=== PATIENT | male | born 1965 | race Caucasian/White ===

== ENCOUNTER 2024-02-03 17:36 | Inpatient (IN) | payer BC, SELFPAY ==
[2024-02-03] VITALS (10 sets, daily range): BP systolic 87–170; BP diastolic 53–93; BMI 25.1; BMI 25.6
--- NOTE | 2024-02-03 14:14 | ED.GENMED ---
History of Present Illness
General
Chief Complaint: Change in Mental Status
Source: patient and family
Exam Limitations: clinical condition
Time Seen by Provider: 02/03/24 13:57
Travel History
Have you had any contact with someone who has COVID-19?: No
Do you have any symptoms of coronavirus? Fever > 100 degrees, chills, cough, shortness of breath, sore throat, loss of taste or smell, muscle aches, or headache?: Yes
Symptoms:: fever
History of Present Illness
History of Present Illness:
58-year-old male history of chronic alcohol use chronic cigarette smoking apparently stopped abruptly 5 days ago. This morning they have noticed confusion and hallucinations change in mental status. Patient without specific complaints. Agitated
at home.
Past History
Past History
ED Past Medical History: HTN and Other (Chronic alcohol use); Negative Asthma, Hypercholesterolemia or NIDDM
ED Past Surgical History: None
Social History
Tobacco: Smoker
Alcohol: None (Stopped 9 days ago)
Drug: None
Personal:
Living: with family
Employment: Employed
Family History
Family History: Diabetes and Other
Review of Systems
Review of Systems
All Other Systems: Not applicable
Phy Exam
Physical Exam
Physical Exam:
GENERAL: Alert. Chronically ill-appearing. Mildly agitated. Slightly disheveled. Old for stated age. And oriented in no apparent distress
EYE: Orbits normal.
NECK: Supple, no significant adenopathy.
ENT: Pharynx without erythema. Small wound on the tip of the nose
CARDIAC: Mildly tachycardic and regular no murmur
LUNGS: Hypoxic. Mild tachypnea. Expiratory rhonchi and expiratory wheezing
ABDOMEN: Soft, without focal tenderness or distention. Small periumbilical nontender hernia
NEUROLOGICAL: Alert and oriented x 2, grossly non-focal
SKIN: Warm and dry, no rash or lesion, no discoloration, skin intact.
MUSCULOSKELETAL: No edema,no deformity.Good color
PSYCH: Relatively cooperative but agitated.
Scores
Withdrawal Assessment of Alcohol
Withdrawal Assessment Completed?: Yes
Nausea and Vomiting: No nausea and no vomiting
Tactile Disturbances: None
Tremor: Moderate, with patient's arms extended
Auditory Disturbances: Not present
Paroxysmal Sweats: No sweat visible
Visual Disturbances: Not present
Anxiety: Moderately anxious, or guarded, so anxiety is inferred
Headache, Fullness in Head: Not present
Agitation: Moderately fidgety and restless
Orientation and clouding of sensorium: Disoriented for date by more than 2 calendar days
Total CIWA Score: 15
Alcohol Withdrawal Medication Recommendation: Equal to MSAS Score 8-11. Lorazepam 1-2mg IV NOW & re-assess q1hr
Course
Orders/Labs/Results
Orders:
Orders
02/03/24 14:02
Electrocardiogram (*1) Urgent
Reason for Study: Other
Other Reason for Exam: sepsis
Cardiac Monitoring- Treatment ONCE
EKG- Treatment ONCE
IV Insert/Care/Rem.- Treatment PRN
CR Chest Portable - 1 View Urgent
Comment:
Reason For Exam: sob hypoxia cough
Reason Study Needs to be Portable: Unable to Transport
O2 Therapy [RESP] Urgent
Titrate/Wean O2 to maintain O2 sat greater than (%): 92
Pulse Ox/cont/shift [RESP] Urgent
Quantity: 1
02/03/24 14:11
Alcohol Urgent
Ammonia Urgent
Complete Blood Count/With Diff Urgent
Comprehensive Metabolic Panel Urgent
Lactic Acid Q4H
Comment: CANCEL 2nd LACTIC ACID IF 1st LACTIC ACID IS LESS THAN 2
PTT Urgent
Prothrombin Time Urgent
Blood Culture Q30M
LOVE Source: Blood/Venous
Specimen Description:
02/03/24 14:12
CT Head W/o Iv Contrast Urgent
Comment:
Reason For Exam: Change in mental status
02/03/24 14:14
Urinalysis Reflex To Culture Urgent
Date Specimen was Collected: 02/03/24
Time Specimen was Collected: 14:10
Urine Microscopic Reflex Cult Urgent
Urine Culture Urgent
LOVE Source: U
Specimen Description:
Date Specimen was Collected: 02/03/24
Time Specimen was Collected: 14:10
02/03/24 14:16
Lorazepam [Ativan] 1 mg IV NOW STA
02/03/24 14:45
Blood Culture Q30M
LOVE Source: Blood/Venous
Specimen Description:
02/03/24 14:54
Piperacillin/Tazo 4.5 Gram [Zosyn] 4.5 gram in 100 ml IV NOW
02/03/24 Dinner
Regular
Fluid Restriction: 1200 mL/day (40 oz)
02/03/24 15:21
CT Chest Pe Study Urgent
Comment:
Reason For Exam: hypoxia
02/03/24 16:37
Admit/Transfer Patient As Directed
Co-Sign Provider:
Level of Care: Inpatient admission
Assign to:: IMU- Intermediate Care
Physician / Group: romelia
Diagnosis: alcohol withdrawal
Reason for Hospitalization: alcohol withdrawal
Expected length of stay greater than two midnights?: Yes
ELOS- Estimated Length of Stay in days: 2
I certify the patient meets the requirements for IP care: Yes
02/03/24 16:38
Code Status As Directed
Resuscitation Status: Do not resuscitate
Reached after discussion with pt or family/Healthcare POA: Yes
DNR Bracelet Application ONCE
02/03/24 16:41
Magnesium Urgent
Phosphorus Urgent
0.9% Sodium Chloride [Nss (Preservative Free)] See Protocol IV PRN PRN
Lorazepam [Ativan] 1 mg IV Q1HPRN PRN
Lorazepam [Ativan] 1 mg PO Q2HPRN PRN
Lorazepam [Ativan] 2 mg IV Q1HPRN PRN
MSAS SCORE As Directed
MSAS Score 0-4: Repeat MSAS every 2 hours until 0-4 for three consecutive assessments, then every 4 hours x 48
hours.
MSAS Score 5-7: For MILD withdrawl symptoms. Repeat MSAS and RASS every 2 hours
MSAS Score 8-11: For MODERATE withdrawal symptoms. Repeat MSAS and RASS every 1 hour. Consider ICU or IMU
level of care.
MSAS Score > 11: For SEVERE withdrawal symptoms. Repeat MSAS and RASS every 1 hour. Notify provider, consider
ICU level of care.
MSAS Additional Instructions: If no improvement or no decrease in score from severe to moderate within 12
hours, consult psychiatry
MSAS Notify Provider: Notify provider if patient requires more than 10 mg of Lorazepam in eight hour period.
02/03/24 16:42
Urine Osmolality Random [Osmolality, Random Urine] Urgent
Urine Sodium Urgent
02/03/24 16:44
Respiratory Culture/Gram Stain Urgent
LOVE Source: Sputum
Specimen Description:
02/03/24 16:50
HydrALAZINE [Apresoline] 5 mg IV Q6HPRN PRN
02/03/24 17:07
Acetaminophen [Tylenol] 650 mg PO Q6HPRN PRN
02/03/24 17:12
Acetaminophen [Tylenol/Feverall] 650 mg RECTAL Q6HPRN PRN
02/03/24 18:00
COVID-19 Antigen Urgent
Source: Nasal Swab
Influenza A+B Rapid Molecular Urgent
LOVE Source: Nasal Swab
Specimen Description:
02/03/24 18:18
Lactic Acid Q4H
Comment: CANCEL 2nd LACTIC ACID IF 1st LACTIC ACID IS LESS THAN 2
03/29/24 18:33
0.9% Sodium Chloride 1000 ml [Nss] 1,000 ml IV 80 mls/hr
Nicotine [Nicoderm Transdermal] 14 mg TRANSDERM DAILY
Tramadol HCl [Ultram] 100 mg PO Q8HPRN PRN
02/03/24 18:33
Activity As Directed
Activity Level: As Tolerated
Vital Signs As Directed
Frequency: Per unit guidelines
DX Deep Vein Thrombosis Video Routine
02/03/24 20:00
Heparin 5,000 units SC Q12
Thiamine Injection 200 mg IV Q12
02/03/24 22:00
Piperacillin/Tazo 3.375 Gram [Zosyn] 3.375 gram in 50 ml IV Q6H
02/04/24 06:00
Complete Blood Count/With Diff IN AM
Comprehensive Metabolic Panel IN AM
02/04/24 08:00
FOLic ACID [Folvite] 1 mg PO DAILY
FOLic ACID [Folvite] 1 mg 0.9% Sodium Chloride 50 ml [Nss] 50 ml IV DAILYPRN
Spironolactone [Aldactone] 25 mg PO DAILY
02/06/24 20:00
Thiamine HCl [Vitamin B1] 100 mg PO BID
Abnormal Lab Results
02/03/24 02/03/24
14:11 14:14
WBC 11.4 H 10^3/uL
(4.8-10.8)
RBC 3.95 L 10^6/uL
(4.70-6.10)
Hct 36.7 L %
(39.0-52.0)
MCH 32.9 H pg
(27.0-31.0)
Plt Count 83 L 10^3/uL
(130-400)
MPV 12.0 H fL
(7.4-10.4)
Abs Immat Gran (auto) 0.1 H 10^3/uL
(0-0.05)
Absolute Neuts (auto) 10.0 H 10^3/uL
(1.4-6.5)
Absolute Lymphs (auto) 0.7 L 10^3/uL
(1.2-3.4)
Immature Gran % 1.1 H %
(0-0.5)
Neutrophils % 87.6 H %
(42.2-75.2)
Lymphocytes % 6.1 L %
(20.5-51.1)
PT 20.2 H Sec
(11.4-14.6)
Sodium 124 L mmol/L
(135-145)
Chloride 85 L mmol/L
(98-107)
Carbon Dioxide 32 H mmol/L
(22-30)
Creatinine 0.6 L mg/dL
(0.7-1.3)
Glucose 121 H mg/dl
(70-99)
Lactic Acid 2.4 H mmol/L
(0.7-2.0)
Calcium 7.8 L mg/dl
(8.4-10.2)
Total Bilirubin 7.3 H mg/dl
(0.2-1.3)
AST 169 H U/L
(17-59)
ALT 77 H U/L
(0-50)
Total Protein 6.0 L g/dl
(6.3-8.2)
Albumin 3.2 L g/dl
(3.5-5.0)
Urine Ketones Trace A
(Negative)
Ur Occult Blood Reflex 2+ A
(Negative)
Urine Bilirubin 2+ A
(Negative)
Urine Urobilinogen 4+ A
(Neg - 1+)
Leukocyte Esterase Rfl 1+ A
(Negative)
Urine RBC 3-6 A /HPF
(0-2)
Urine WBC (Reflex) 11-15 A /HPF
(0-5)
Urine Bacteria (Reflex) Few A
(Negative)
02/03/24 14:11
02/03/24 14:11
Vital Signs
Initial and Last Documented VS:
Initial Vital Signs
Temp Pulse Resp BP Pulse Ox
99.4 F 111 26 170/84 87
02/03/24 13:56 02/03/24 13:56 02/03/24 13:56 02/03/24 13:56 02/03/24 13:56
Last Documented Vital Signs
Temp Pulse Resp BP Pulse Ox
102.3 F H 101 18 117/58 99
02/03/24 18:43 02/03/24 18:45 02/03/24 18:45 02/03/24 18:41 02/03/24 18:45
MDM/Problems Addressed
Differential Diagnosis Includes:
Complicated differential including hepatic encephalopathy, sepsis, alcohol withdrawal, infectious issue. Workup in progress. Family updated. Clearly needs admission
*Radiology
Radiology exam reviewed: preliminary read by ED provider (Negative chest x-ray), radiology read reviewed (Negative) and other (Head CT negative. Collapse right middle and lower lobe atelectasis)
*Pulse Oximetry
Patient hypoxic: yes
*EKG
Interpreted by ED Provider?: Yes
Interpretation: abnormal
Comparison EKG: changes noted
Heart Rate: 106
Rate: tachycardiac
Rhythm: sinus
[place]: normal axis
Interval: normal interval
QRS Pattern: normal QRS
Ischemia: non-specific ST changes
*Branch Rental Manager Interpretation
Rate: tachycardiac
Interpretation: abnormal
Heart Rate: 108
Rhythm: sinus
*Critical Care Note
Total Time (30-74mins, 75-104mins- exclusive of procedures): 45
Data Reviewed
Review of Other/Old Records Reveals: Labs, Records and Testing
Update Note
Update Note:
Multiple issues to address. Hyponatremia, alcohol withdrawal, hypoxia, progressive cirrhosis, UTI, possible sepsis.
Multiple rechecks of this patient. Remained moderately stable considering his multiple medical issues. Multiple updates with family risk of decompensation explained. Hospitalist rediscussed after CT scan with severe atelectasis right middle lobe
and lower lobe
ED Attending Note
-
Portions of this chart may have been created with voice recognition software.� Occasional wrong word or��sound alike� substitutions may have occurred due to the inherent limitations of voice recognition software.
Discharge Plan
Departure
Patient Disposition: Admit
Date of Disposition: 02/03/24
Time of Disposition: 15:14
Presentation/result/management discussed w/ accepting MD/DO: Hospitalist
Discharge Problem:
Change in mental status, Hyponatremia, Alcohol withdrawal, Alcohol withdrawal hypoxia, Progressive cirrhosis, UTI
Interventions
Interventions:
*Risk Screen - Suicide Last Done: 02/03/24 13:59
*General Assessment Last Done: 02/03/24 13:57
*Neglect/Abuse Screening Last Done: 02/03/24 13:59
ED- Fall Risk Assessment Last Done: 02/03/24 14:00
*ED COVID-19 Vaccine History Last Done: 02/03/24 13:57
*Nursing Disposition Last Done: 02/03/24 18:52
ED- Pulmonary Assessment Last Done: 02/03/24 18:52
ED-Psychological Assessment Last Done: 02/03/24 18:52
ED- Neurological Assessment Last Done: 02/03/24 14:00
ED- Cardiac Assessment Last Done: 02/03/24 18:52
Discharge Date and Time
Discharge Date/Time: 02/03/24 18:54
[2024-02-03] MEDS: ATIVAN 1 MG IV ×2 (14:21→17:03)
[2024-02-03 14:22] LABS: % Basophils 0.3 % (0-2); % Eosinophils 0.2 % (0-6); % Immature Granulocytes 1.1 % (0-0.5); % Lymphocytes 6.1 % (20.5-51.1); % Monocytes 4.7 % (1.7-9.3); % Neutrophils 87.6 % (42.2-75.2); Absolute Immature Granulocytes 0.1 10^3/uL (0-0.05); Absolute Lymphocytes 0.7 10^3/uL (1.2-3.4); Absolute Monocytes 0.5 10^3/uL (0.1-0.6); Hematocrit 36.7 % (39.0-52.0); Mean Corp Hgb Conc. 35.4 g/dL (33.0-37.0); Mean Corpuscular Hgb 32.9 pg (27.0-31.0); Mean Corpuscular Volume 92.9 fL (80.0-94.0); Nucleated Red Blood Cells % 0 % (-); Platelet Count 83 10^3/uL (130-400); Red Blood Cell Count 3.95 10^6/uL (4.70-6.10); Red Cell Dist. Width 14.4 % (11.5-14.5); White Blood Cell Count 11.4 10^3/uL (4.8-10.8)
[2024-02-03 14:27] LABS: Urine Albumin Trace (Neg - Trace); Urine Bilirubin 2+ (Negative); Urine Character Clear (Clear); Urine Glucose Negative (Negative); Urine Ketone Trace (Negative); Urine Leukocyte 1+ (Negative); Urine Nitrite Negative (Negative); Urine Occult Blood 2+ (Negative); Urine Specific Gravity 1.015 (<1.030); Urine Urobilinogen 4+ (Neg - 1+)
[2024-02-03 14:28] LABS: Urine Color Orange
[2024-02-03 14:35] LABS: APTT 34.2 Sec (23.4-35.0); INR 1.74; PT 20.2 Sec (11.4-14.6)
[2024-02-03 14:36] LABS: ALT (SGPT) 77 U/L (0-50); AST (SGOT) 169 U/L (17-59); Albumin 3.2 g/dl (3.5-5.0); Alkaline Phosphatase 109 U/L (38-126); Blood Urea Nitrogen 15 mg/dl (9-20); Calcium 7.8 mg/dl (8.4-10.2); Carbon Dioxide 32 mmol/L (22-30); Chloride 85 mmol/L (98-107); Estimated Creatinine Clearance > 125 ml/min; Glucose 121 mg/dl (70-99); Potassium 3.5 mmol/L (3.5-5.1); Sodium 124 mmol/L (135-145); Total Bilirubin 7.3 mg/dl (0.2-1.3); eGFR > 60.00
[2024-02-03 14:37] LABS: Urine Bacteria Few (Negative); Urine Squamous Cell 0-2 /LPF (Few)
[2024-02-03 15:01] LABS: Alcohol None Detected
[2024-02-03] MEDS: ZOSYN 100 IV (15:03)
[2024-02-03 15:08] LABS: Ammonia 16 umol/L (9-30)
[2024-02-03 15:29] LABS: Lactic Acid 2.4 mmol/L (0.7-2.0)
--- NOTE | 2024-02-03 16:02 | HPS.HSE ---
Family Physician
-
Family Physician: Drake Goss
Chief Complaint
-
altered mental status
History of Present Illness
58-year-old male past medical history of chronic right upper extremity pain, alcoholic cirrhosis, alcohol use disorder, active smoker, presenting with confusion that started yesterday evening got significantly worse today. He had visual
hallucinations and was tremulous. He drinks a bottle of hard liquor every day his last alcoholic drink was 5 days ago and he stopped completely at that time. He also smokes a pack of cigarettes a day and stop completely at that time. He did have
chills. No nausea or vomiting or abdominal pain. He did have some loose stools which is resolved. He has been drinking a lot of fluids and Gatorade over the past several days. He did have increased urinary frequency.
Over the past 2 to 3 days he had shortness of breath with productive cough and some sore throat. No chest pain. He has been feeling off balance but denied any dizziness. He did complain of headache and some blurry vision. No numbness or tingling.
Medical History
Past Medical History
Past Medical History: Reports Other ( chronic right upper extremity pain, alcoholic cirrhosis, alcohol use disorder, active smoker,)
Past Surgical History: Reports None
Social History
Tobacco: Smoker
Alcohol: Daily
Drug: None
Family History
Family History: Not pertinent
Allergies / Home Medications
Allergies reflects when Allergies were last updated in [facility].
Home Medications with original date entered in [facility]
Allergy/Medication List:
Allergies
Allergy/AdvReac Type Severity Reaction Status Date / Time
No Known Allergies Allergy Verified 10/11/22 09:33
Home Medications
alprazolam 1 mg tablet 1 mg PO .SEE BELOW 02/03/24
aspirin 81 mg tablet,delayed release 162 mg PO BIDPRN PRN mild pain 02/03/24
spironolactone 25 mg tablet 25 mg PO DAILY 02/03/24
tramadol 50 mg tablet 100 mg PO Q8HPRN PRN severe pain 02/03/24
Review of Systems
-
History Source: Patient
A 12 point ROS was completed and negative except as noted: Yes
Constitutional: Reports No Symptoms
EENT: Reports No Symptoms
Respiratory: Reports No Symptoms
Cardiac: Reports No Symptoms
Abdomen/GI: Reports See HPI
: Reports No Symptoms
Musculoskeletal: Reports No Symptoms
Skin: Reports No Symptoms
Neurological: Reports No Symptoms
Endocrine: Reports No Symptoms
Hematologic/Lymphatic: Reports No Symptoms
Psych: Reports No Symptoms
Physical Exam
Vital Signs
Vital Signs
Temp Pulse Resp BP Pulse Ox
99.4 F 110 18 170/84 96
02/03/24 13:56 02/03/24 14:02 02/03/24 14:02 02/03/24 13:56 02/03/24 14:26
Physical Exam
General: Well Developed, Well Nourished and No Apparent Distress
HEENT: NormoCephalic, Moist mucous membranes and Atraumatic
Respiratory: Clear
Cardiac: S1/S2 and Regular Rhythm; No Murmur or Rub
GI: Soft, Non Tender, Non Distended and Normal Bowel Sounds; No Organomegaly
Rectal: Deferred by Provider
Musculoskeletal: No Clubbing, No Cyanosis and No Edema
Skin: No Rash
Neuro: Nonfocal/grossly intact and Tremors
Laboratory Results
-
02/03/24 14:11
02/03/24 14:11
Laboratory Results
PT 20.2 Sec (11.4-14.6) H 02/03/24 14:11
INR 1.74 02/03/24 14:11
APTT 34.2 Sec (23.4-35.0) 02/03/24 14:11
Lactic Acid 2.4 mmol/L (0.7-2.0) H 02/03/24 14:11
Total Bilirubin 7.3 mg/dl (0.2-1.3) H 02/03/24 14:11
AST 169 U/L (17-59) H 02/03/24 14:11
ALT 77 U/L (0-50) H 02/03/24 14:11
Alkaline Phosphatase 109 U/L (38-126) 02/03/24 14:11
Data Reviewed
-
Lab Data: Labs Reviewed by me
Old Records: Reviewed
Impression/Plan
-
IMPRESSION:
PLAN:
# Alcohol withdrawal
# Alcohol use disorder
-Alcohol level negative
-Alcohol withdrawal protocol
-Thiamine and folate
-IV fluids
# Hypoxic respiratory failure unclear etiology likely aspiration pneumonia
-Chest x-ray unremarkable
-COVID and influenza pending
-Check sputum culture
-CT PE pending to evaluate for pulmonary embolism/aspiration pneumonia
-Lactic acid 2.4
-Empiric Zosyn
# Hyponatremia likely secondary to beer potomania/poor solute intake
-Check urine sodium, osmolality
-Fluid restriction 40 ounces
-monitor with IV fluids
-CT head pending
# Hypertensive urgency
-EKG shows sinus tachycardia, nonspecific intraventricular conduction delay
-As needed hydralazine
# Urinary tract infection
-Zosyn
# Transaminitis secondary to alcohol use
-Continue to monitor
History of alcoholic cirrhosis
-Continue spironolactone
Active smoker
-Nicotine patch
Essential hypertension
-Continue spironolactone
Chronic right upper extremity pain
-Continue tramadol
DNR/DNI
DVT prophylaxis�heparin
Regular diet
[2024-02-03] MEDS: TYLENOL/FEVERALL 650 MG RECTAL (17:42)
[2024-02-03 18:41] LABS: Lactic Acid 1.2 mmol/L (0.7-2.0)
[2024-02-03] MEDS: NSS 1000 IV (18:48)
[2024-02-03 18:49] LABS: COVID-19 Antigen Negative (Negative)
--- NOTE | 2024-02-03 19:00 | PTCARENOTE ---
pt arrived to floor from ED at 1840. sinus rythym on monitor. pt drowsy but awakens briefly. high flow o2 at 60L/100% with sat 99%. pt febrile but had recently been given rectal tylenol by eD nurse. bed alarm placed for pt safety. will report to
oncoming RN
[2024-02-03 20:03] LABS: Magnesium 1.8 mg/dl (1.6-2.3); Phosphorus 2.3 mg/dl (2.5-4.5)
[2024-02-03] MEDS: HEPARIN 5000 UNITS SC (20:25)
[2024-02-03] MEDS: NICODERM TRANSDERMAL 14 MG TRANSDERM (20:25)
[2024-02-03] MEDS: THIAMINE INJECTION 200 MG IV (20:25)
[2024-02-03] MEDS: NSS 500 IV (21:19)
[2024-02-03] MEDS: TORADOL 15 MG IV (21:29)
[2024-02-03] MEDS: ZOSYN 50 IV (21:50)
[2024-02-03 22:37] LABS: Osmolality Urine 565 mOsm/kg (300-900)
[2024-02-03 23:06] LABS: Urine Sodium < 5 mmol/L (30-90)
--- NOTE | 2024-02-03 23:52 | PTCARENOTE ---
Pt with fever 102.8 and SBP 83. House EXECUTIVE MARKETING ASSISTANT notified. NSS bolus given along with IV toradol. BP improved and temp down.
[2024-02-04] VITALS (22 sets, daily range): BP systolic 96–139; BP diastolic 46–94; BMI 25.3
[2024-02-04] MEDS: ZOSYN 50 IV ×4 (04:37→21:28)
[2024-02-04 05:35] LABS: % Basophils 0.1 % (0-2); % Eosinophils 0.5 % (0-6); % Immature Granulocytes 1.1 % (0-0.5); % Lymphocytes 11.6 % (20.5-51.1); % Monocytes 6.7 % (1.7-9.3); Absolute Immature Granulocytes 0.1 10^3/uL (0-0.05); Absolute Lymphocytes 0.9 10^3/uL (1.2-3.4); Absolute Monocytes 0.5 10^3/uL (0.1-0.6); Hematocrit 31.4 % (39.0-52.0); Hemoglobin 11.2 g/dL (13.0-18.0); Mean Corp Hgb Conc. 35.7 g/dL (33.0-37.0); Mean Corpuscular Hgb 33.9 pg (27.0-31.0); Mean Corpuscular Volume 95.2 fL (80.0-94.0); Mean Platelet Volume 10.8 fL (7.4-10.4); Nucleated Red Blood Cells % 0 % (-); Platelet Count 67 10^3/uL (130-400); Red Cell Dist. Width 14.4 % (11.5-14.5); White Blood Cell Count 7.6 10^3/uL (4.8-10.8)
--- NOTE | 2024-02-04 06:04 | PTCARENOTE ---
Pt awake alert and oriented and conversant this am. BP much improved. Will continue to monitor.
--- NOTE | 2024-02-04 06:06 | PTCARENOTE ---
Pt weaned down to midflow. Currently at 15 L O2.
[2024-02-04 06:09] LABS: ALT (SGPT) 57 U/L (0-50); AST (SGOT) 103 U/L (17-59); Albumin 2.3 g/dl (3.5-5.0); Alkaline Phosphatase 71 U/L (38-126); Blood Urea Nitrogen 18 mg/dl (9-20); Carbon Dioxide 31 mmol/L (22-30); Chloride 93 mmol/L (98-107); Estimated Creatinine Clearance 116 ml/min; Glucose 119 mg/dl (70-99); Potassium 3.3 mmol/L (3.5-5.1); Sodium 126 mmol/L (135-145); Total Bilirubin 5.5 mg/dl (0.2-1.3); Total Protein 4.7 g/dl (6.3-8.2); eGFR > 60.00
--- NOTE | 2024-02-04 07:00 | PTCARENOTE ---
received report from previous RN. pt arouses easily to voice. Orientedx3 at this time. MSAS 2- mild tremors noted. pt denies pain. pt on 12L midflow nasal cannula, sat 92-96%. lung sounds diminished in bases. SR on telemetry heart rate in 80s.
pulses palpable. no edema. active bowel sounds. voiding in urinal priyank urine. pt and updated on plan of care for the day. see worklist for full nursing assessment and interventions.
[2024-02-04] MEDS: KCL 270 MEQ IV (07:41)
[2024-02-04] MEDS: THIAMINE INJECTION 200 MG IV ×2 (07:42→19:53)
[2024-02-04] MEDS: HEPARIN 5000 UNITS SC ×2 (07:42→19:53)
[2024-02-04] MEDS: NICODERM TRANSDERMAL 14 MG TRANSDERM (07:43)
[2024-02-04] MEDS: FOLVITE 1 MG PO (07:44)
[2024-02-04] MEDS: ALDACTONE 25 MG PO (07:44)
[2024-02-04] MEDS: NSS 1000 IV (07:57)
--- NOTE | 2024-02-04 08:00 | W.PN.HOSP.TC ---
Today's Communication/Plan
-
keep IMU today and wean O2
cont MSAS protocol
cont zosyn
follow electrolytes
Assessment / Plan
Assessment / Plan
pt is a 58 year old male
Alcohol withdrawal with Alcohol use disorder--received ativan yesterday in ED--cont MSAS protocol, thiamine, folate--stop IVF
Hypoxic respiratory failure with lactic acidosis-- unclear etiology likely aspiration pneumonia--lung exam with rhonchi right base--cont zosyn--CXR neg, Ct scan with atelectasis--blood culture positive for gm positive cocci in pairs and chains--wean
midflow O2--add IS and acapella--Covid and flu negative--follow sputum culture if able to get--lactic acid 2.4 to 1.2--stop IVF
Hyponatremia/hypokalemia-- likely secondary to beer/poor solute intake--replete and follow--cont spironolactone--fluid restrict--head CT without acute findings
Essential HTN with Hypertensive urgency--EKG shows sinus tachycardia, nonspecific intraventricular conduction delay--As needed hydralazine
Possible Urinary tract infection, more likely pna--cont zosyn, urine culture pending
Transaminitis secondary to alcohol use--improving
History of alcoholic cirrhosis--Continue spironolactone
Active smoker--Nicotine patch
Essential hypertension--Continue spironolactone
Chronic right upper extremity pain--Continue tramadol
code status--DNR/DNI
DVT prophylaxis�heparin
Anticipated Discharge: > 48 hours
Subjective/Interval History
-
Date of Service: February 04, 2024
pt says he is still shaky
Objective Data
-
Labs:
Laboratory Results
02/04/24
04:55
WBC 7.6
Hgb 11.2 L
Hct 31.4 L
Plt Count 67 L
Sodium 126 L
Potassium 3.3 L
Chloride 93 L
Carbon Dioxide 31 H
BUN 18
Creatinine 0.7
Glucose 119 H
Calcium 7.0 L
Total Bilirubin 5.5 H
AST 103 H
ALT 57 H
Alkaline Phosphatase 71
Vital Signs:
max temp for 24 hours
02/03/24
21:04
Temp 102.8 F H
Vital Signs
Temp Pulse Resp BP Pulse Ox
98.1 F 74 18 107/55 97
02/04/24 03:21 02/04/24 07:44 02/04/24 07:00 02/04/24 07:44 02/04/24 07:00
I&O
02/03/24 02/04/24 02/05/24
06:59 06:59 06:59
Intake Total 1500 / 1500
Output Total 1000 / 1000
Balance 500 / 500
Review of Systems
-
All other systems: Reviewed and negative
Neuro: Reports Other ('shaky')
Physical Exam
-
General: Well Developed, Well Nourished and No Apparent Distress
HEENT: Normocephalic, Atraumatic and Anicteric
Respiratory: Rhonchi (right base)
Cardiac: Regular Rhythm and S1/S2; Negative Murmur
GI: Soft, Nontender, Nondistended and Normal Bowel Sounds
Musculoskeletal: No Clubbing, No Cyanosis and No Edema
Neuro: Awake and Alert
Psych: Calm
[2024-02-04] MEDS: ATIVAN 1 MG PO (16:08)
[2024-02-04] MEDS: TYLENOL 650 MG PO (22:02)
[2024-02-05] VITALS (8 sets, daily range): BP systolic 101–123; BP diastolic 49–71; BMI 25.5
[2024-02-05] MEDS: ZOSYN 50 IV ×4 (03:07→22:17)
[2024-02-05 04:45] LABS: Hematocrit 32.2 % (39.0-52.0); Mean Corp Hgb Conc. 34.2 g/dL (33.0-37.0); Mean Corpuscular Hgb 32.7 pg (27.0-31.0); Mean Corpuscular Volume 95.8 fL (80.0-94.0); Platelet Count 65 10^3/uL (130-400); Red Blood Cell Count 3.36 10^6/uL (4.70-6.10); Red Cell Dist. Width 14.1 % (11.5-14.5); White Blood Cell Count 7.6 10^3/uL (4.8-10.8)
[2024-02-05 05:27] LABS: ALT (SGPT) 59 U/L (0-50); AST (SGOT) 97 U/L (17-59); Albumin 2.3 g/dl (3.5-5.0); Alkaline Phosphatase 109 U/L (38-126); Blood Urea Nitrogen 14 mg/dl (9-20); Calcium 7.2 mg/dl (8.4-10.2); Carbon Dioxide 30 mmol/L (22-30); Chloride 99 mmol/L (98-107); Estimated Creatinine Clearance > 125 ml/min; Glucose 110 mg/dl (70-99); Magnesium 1.9 mg/dl (1.6-2.3); Potassium 3.3 mmol/L (3.5-5.1); Sodium 129 mmol/L (135-145); Total Bilirubin 4.6 mg/dl (0.2-1.3); Total Protein 4.7 g/dl (6.3-8.2); eGFR > 60.00
[2024-02-05] MEDS: KCL 40 MEQ PO (06:03)
[2024-02-05] MEDS: ALDACTONE 25 MG PO (07:31)
[2024-02-05] MEDS: FOLVITE 1 MG PO (07:32)
[2024-02-05] MEDS: THIAMINE INJECTION 200 MG IV ×2 (07:32→20:30)
[2024-02-05] MEDS: HEPARIN 5000 UNITS SC ×2 (07:32→20:31)
[2024-02-05] MEDS: NICODERM TRANSDERMAL 14 MG TRANSDERM (08:10)
--- NOTE | 2024-02-05 08:26 | PTCARENOTE ---
pt wakes to name. oriented x3. follows all commands. states no pain. midflow 12l. breath sounds diminished course with ex wheezing. productive cough. spoke to pt on the phone updated on pt condition.
--- NOTE | 2024-02-05 08:51 | W.PN.HOSP.TC ---
Today's Communication/Plan
-
wean O2 to off
transfer to tele
PT/OT
d/c planning
Assessment / Plan
Assessment / Plan
pt is a 58 year old male
Alcohol withdrawal with Alcohol use disorder--received ativan in ED--cont MSAS protocol, thiamine, folate--stop IVF--no further signs of WD
Hypoxic respiratory failure with lactic acidosis-- unclear etiology likely aspiration pneumonia---cont zosyn--CXR neg, Ct scan with atelectasis--blood culture positive for strep species (likely contaminant)--wean midflow O2--add IS and
acapella--Covid and flu negative
Hyponatremia/hypokalemia-- likely secondary to beer/poor solute intake--replete and follow--cont spironolactone--fluid restrict--head CT without acute findings
Essential HTN with Hypertensive urgency--EKG shows sinus tachycardia, nonspecific intraventricular conduction delay--As needed hydralazine
Possible Urinary tract infection, more likely pna--cont zosyn, urine culture pending
Transaminitis secondary to alcohol use--improving
History of alcoholic cirrhosis--Continue spironolactone
Active smoker--Nicotine patch
Essential hypertension--Continue spironolactone
Chronic right upper extremity pain--Continue tramadol
code status--DNR/DNI
DVT prophylaxis�heparin
Anticipated Discharge: > 48 hours
Subjective/Interval History
-
Date of Service: February 05, 2024
pt without c/o
Objective Data
-
Labs:
Laboratory Results
02/05/24
04:07
WBC 7.6
Hgb 11.0 L
Hct 32.2 L
Plt Count 65 L
Sodium 129 L
Potassium 3.3 L
Chloride 99
Carbon Dioxide 30
BUN 14
Creatinine 0.6 L
Glucose 110 H
Calcium 7.2 L
Total Bilirubin 4.6 H
AST 97 H
ALT 59 H
Alkaline Phosphatase 109
Vital Signs:
max temp for 24 hours
02/04/24
19:10
Temp 99.4 F
Vital Signs
Temp Pulse Resp BP Pulse Ox
97.8 F 74 22 117/49 95
02/05/24 07:54 02/05/24 07:31 02/05/24 07:00 02/05/24 07:31 02/05/24 07:00
I&O
02/04/24 02/05/24 02/06/24
06:59 06:59 06:59
Intake Total 1500 / 1500 1240 / 1240
Output Total 1000 / 1000 2000 / 2000 300 / 300
Balance 500 / 500 -760 / -760 -300 / -300
Review of Systems
-
All other systems: Reviewed and negative
Neuro: Denies Tremors
Psych: Denies Anxious
Physical Exam
-
General: Well Developed, Well Nourished and No Apparent Distress
HEENT: Normocephalic, Atraumatic and Oxygen
Respiratory: Clear to Auscultation; Negative Wheezes or Rhonchi
Cardiac: Regular Rhythm and S1/S2; Negative Murmur
GI: Soft, Nontender, Nondistended and Normal Bowel Sounds
Musculoskeletal: No Clubbing, No Cyanosis and No Edema
Neuro: Awake and Alert
Psych: Calm
--- NOTE | 2024-02-05 12:05 | PTCARENOTE ---
report called to 4w. pt transferred with clothes cell phone and voice systems engineer. updated pt on pt condition and new room number
--- NOTE | 2024-02-05 15:27 | CM ---
fast food assistant restaurant manager reviewed patient's chart and met with patient and patient lives with his spouse in a 2 story home, patient is independent with adl's and ambulation, no dme, patient was working but feels he may need to retire soon, patient is currently
on oxygen but did not require oxygen prior to admission, patient admitted with alcohol W/D and field nurse case manager spoke with patient regrading possible information, treatment and supports and referral sent to [facility], per Chad at [facility] he will meet with
patient tomorrow.
Plan; Patient to return to home with spouse when stable, need to follow for any oxygen needs, referral sent to [facility].
[2024-02-05] MEDS: TYLENOL 650 MG PO (18:47)
--- NOTE | 2024-02-05 18:55 | PTCARENOTE ---
Daughters Gale Piedraell [phone]. Valeria Maxwell [phone]. Daughters present with Cherise at bedside. Would like to be involved in discussions regarding aftercare post-discharge.
[2024-02-06] MEDS: ZOSYN 50 IV ×4 (03:55→21:56)
[2024-02-06 04:03] VITALS: BP 114/63
[2024-02-06 07:25] VITALS: BP 127/71
[2024-02-06] MEDS: NICODERM TRANSDERMAL 14 MG TRANSDERM (08:41)
[2024-02-06] MEDS: FOLVITE 1 MG PO (08:41)
[2024-02-06] MEDS: ALDACTONE 25 MG PO (08:41)
[2024-02-06] MEDS: THIAMINE INJECTION 200 MG IV (08:42)
[2024-02-06] MEDS: HEPARIN 5000 UNITS SC ×2 (08:43→21:56)
[2024-02-06 09:12] LABS: Hematocrit 33.2 % (39.0-52.0); Hemoglobin 11.7 g/dL (13.0-18.0); Mean Corp Hgb Conc. 35.2 g/dL (33.0-37.0); Mean Corpuscular Hgb 32.8 pg (27.0-31.0); Platelet Count 61 10^3/uL (130-400); Red Blood Cell Count 3.57 10^6/uL (4.70-6.10); Red Cell Dist. Width 14.2 % (11.5-14.5); White Blood Cell Count 6.2 10^3/uL (4.8-10.8)
[2024-02-06 09:33] LABS: ALT (SGPT) 57 U/L (0-50); AST (SGOT) 87 U/L (17-59); Albumin 2.4 g/dl (3.5-5.0); Alkaline Phosphatase 112 U/L (38-126); Blood Urea Nitrogen 12 mg/dl (9-20); Calcium 7.8 mg/dl (8.4-10.2); Carbon Dioxide 31 mmol/L (22-30); Chloride 98 mmol/L (98-107); Estimated Creatinine Clearance > 125 ml/min; Glucose 105 mg/dl (70-99); Magnesium 1.9 mg/dl (1.6-2.3); Potassium 3.6 mmol/L (3.5-5.1); Sodium 134 mmol/L (135-145); Total Bilirubin 4.7 mg/dl (0.2-1.3); Total Protein 4.9 g/dl (6.3-8.2); eGFR > 60.00
[2024-02-06 11:19] VITALS: BP 127/56
[2024-02-06] MEDS: ULTRAM 100 MG PO (11:19)
--- NOTE | 2024-02-06 11:24 | W.PN.HOSP.TC ---
Today's Communication/Plan
-
.
Assessment / Plan
Assessment / Plan
Physical Exam
-
General: on nasal O2, No Apparent Distress
HEENT: Normocephalic, Atraumatic and Oxygen
Respiratory: limited with rhonchi both sides, limited on right lower side
Cardiac: S1S2
GI: Soft, Nontender, Nondistended and Normal Bowel Sounds
Musculoskeletal: No Clubbing, No Cyanosis and No Edema
Neuro: Awake and Alert
Psych: Calm, no agitation
pt is a 58 year old male
#Alcohol withdrawal with Alcohol use disorder--Mild
received Ativan in ED on 02/02 and one dose on 02/03 ONLY
He is fully oriented and no tremor or agitation noted
--cont MSAS protocol, thiamine, folate--stopped IVF--no further signs of WD
Acute hypoxic respiratory failure with lactic acidosis-- SaO2 at 84 % on RA
Received High flow O2, now on 6 liters.
Likely combination of atelectasias and underlying COPD, aspiration PNA in RLL, chronic smoker.
CT chest showed no PE, complete atelectasis of the right lower lobe and the majority of the right middle lobe. Hepatic cirrhosis.
-cont Zosyn-
WBC is normal now. Afebrile
-blood culture positive for strep species, will reculture blood
Sputum culture + for Gram negative bacilli.
weaned midflow O2--added IS and acapella--Covid and flu negative
Will consult pulmonary
Hyponatremia/ mild
no confusion
#Hypokalemia-
is 3.6, c/w K supplementy
#Essential HTN with Hypertensive urgency--EKG shows sinus tachycardia, nonspecific intraventricular conduction delay--As needed hydralazine
# Not UTI
Culture is negative
# Alcoholic hepatitis, mild
No abd pain
Transaminitis secondary to alcohol use--improving
#History of alcoholic cirrhosis--Continue spironolactone
Will add PPI
#Active smoker--Nicotine patch
#Essential hypertension--Continue spironolactone
#Chronic right upper extremity pain--Continue tramadol
#code status--DNR/DNI
#DVT prophylaxis�heparin
Total time spent to see the patient, examine the patient on the floor, review data and lab results, discuss treatment plan with patient, nursing staff around 55 minutes.
Anticipated Discharge: > 48 hours
Subjective/Interval History
-
Date of Service: February 06, 2024
No chest pain
No sob
No fevers
Objective Data
-
Labs:
Laboratory Results
02/06/24
08:06
WBC 6.2
Hgb 11.7 L
Hct 33.2 L
Plt Count 61 L
Sodium 134 L
Potassium 3.6
Chloride 98
Carbon Dioxide 31 H
BUN 12
Creatinine 0.5 L
Glucose 105 H
Calcium 7.8 L
Total Bilirubin 4.7 H
AST 87 H
ALT 57 H
Alkaline Phosphatase 112
Vital Signs:
Vital Signs
Temp Pulse Resp BP Pulse Ox
97.9 F 87 18 127/56 95
02/06/24 11:19 02/06/24 11:19 02/06/24 11:19 02/06/24 11:19 02/06/24 11:19
I&O
02/05/24 02/06/24 02/07/24
06:59 06:59 06:59
Intake Total 1240 / 1240 700 / 700
Output Total 1999 / 1999 1100 / 1100
Balance -760 / -760 -400 / -400
--- NOTE | 2024-02-06 12:29 | CM ---
CM met with Chda from [facility], per Chad, patient not interested in inpatient rehab, provided with outpatient resources. CM met with patient bedside, patient reports no concerns to CM, inquiring when his discharge will be. CM will continue to follow
for discharge planning needs, will watch for home O2 needs.
Plan; home with outpatient resources, watch for VN needs.
[2024-02-06 15:20] VITALS: BP 125/63
[2024-02-06 19:00] VITALS: BP 112/55
[2024-02-06] MEDS: VITAMIN B1 100 MG PO (21:56)
[2024-02-06 23:00] VITALS: BP 146/70
[2024-02-07] VITALS (8 sets, daily range): BP systolic 103–141; BP diastolic 56–74; PULSE 80; O2SAT 97
[2024-02-07] MEDS: ZOSYN 50 IV ×4 (04:37→21:16)
[2024-02-07] MEDS: PROTONIX 40 MG PO (08:21)
[2024-02-07] MEDS: FOLVITE 1 MG PO (08:21)
[2024-02-07] MEDS: NICODERM TRANSDERMAL 14 MG TRANSDERM (08:21)
[2024-02-07] MEDS: VITAMIN B1 100 MG PO ×2 (08:21→21:16)
[2024-02-07] MEDS: ALDACTONE 25 MG PO (08:21)
[2024-02-07] MEDS: HEPARIN 5000 UNITS SC ×2 (08:22→21:15)
[2024-02-07] MEDS: ULTRAM 100 MG PO (09:19)
--- NOTE | 2024-02-07 09:25 | CON.PUL ---
Consultation
Consultation Request
Date/Time Consultation Requested: 02/07/2024-7 AM
Date/Time Consultation Performed: 02/07/2024-7:30 AM
Requesting Provider: Hospitalist
Performing Provider: Dr. Ford
Reason for Consultation: Shortness of breath
Medical History
-
Chief Complaint: Shortness of breath
History of Present Illness:
58-year-old male smoker with alcohol use disorder with chronic right upper extremity pain presented with visual hallucinations, tremulous, as well as shortness of breath, productive cough and sore throat-pulmonary consulted for shortness of breath,
wheezing and oxygen requirements 02/07/24. He feels short of breath with exertion. He has some chest tightness and wheezing. He has been placed on Trelegy by his stock buyer but does not use it regularly. He states that he uses 'as needed'. He has
dyspnea on exertion but no chest pain, chest tightness, productive cough, mopped assist, and has abdominal distention but no abdominal pain and has mild chronic lower extremity swelling.
Past Medical History
Past Medical History: None (Cigarette smoker. COPD. Alcohol use disorder. Cirrhosis. Chronic right upper extremity pain. Anxiety. Hypertension. Cannabis dependence. Benzodiazepine dependence. Thrombocytopenia. Umbilical and testicular
hernia. Hepatitis C. History of meningitis. Spinal fluid leak repair 2001. Teet)
Social History
Tobacco: Smoker (93-[id number]-[id number]-quit 2 weeks ago)
Alcohol: Daily
Drug: Marijuana
Personal:
Living: With Family
Occupational Exposures: No known asbestos exposure
Environmental Exposures: No known tuberculosis exposure
Family History
Family History: Other (Father-diabetes and CAD. Mother diabetes, CAD.)
Allergies / Home Medications
Allergies
Allergy/AdvReac Type Severity Reaction Status Date / Time
No Known Allergies Allergy Verified 10/11/22 09:33
Home Medications
�Medication �Instructions �Recorded �Confirmed �Last Taken �Type
alprazolam 1 mg tablet 1 mg PO .SEE BELOW 02/03/24 02/03/24 4 Days Ago History
~01/30/24
aspirin 81 mg tablet,delayed 162 mg PO BIDPRN PRN mild pain 02/03/24 02/03/24 02/02/24 History
release
spironolactone 25 mg tablet 25 mg PO DAILY 02/03/24 02/03/24 02/03/24 History
tramadol 50 mg tablet 100 mg PO Q8HPRN PRN severe pain 02/03/24 02/03/24 4 Days Ago History
~01/30/24
Review of Systems
-
Unable to Obtain full review of systems at this time due to: Other (Per HPI)
Vitals / Labs / Diagnostic Testing
Vital Signs
Temp Pulse Resp BP Pulse Ox
98.3 F 89 18 120/64 92
02/07/24 07:30 02/07/24 08:21 02/07/24 07:30 02/07/24 08:21 02/07/24 07:30
Lab Data
02/06/24 08:06
02/06/24 08:06
Microbiology
02/04/24 22:08 Sputum Respiratory Culture - Final
Klebsiella oxytoca
02/04/24 22:08 Sputum Gram Stain - Final
02/03/24 14:11 Blood/Venous Blood Culture - Final
Streptococcus species
Additional testing on request
02/03/24 14:11 Blood/Venous Gram Stain - Final
02/03/24 14:14 Urine Urine Culture - Final
NO GROWTH
Diagnostic Testing:
Physical Exam
-
Exam:
Well-nourished and well-developed in no apparent distress
HEENT-atraumatic, normocephalic
Neck-supple, no JVD, no bruit
Heart-regular rate and rhythm-no murmurs, rubs or gallops
Chest with diminished breath sounds, prolonged expiratory time, expiratory wheezes, rhonchi and basilar crackles
Abdomen soft, distended, bulging flanks, ascites suspected
Extremities-no cyanosis, clubbing, trace to 1+ edema
Integument-intact, no rashes, lesions or ecchymosis
Neurology-alert and oriented, nonfocal motor and sensory exam
Assessment
-
58-year-old male smoker with alcohol use disorder with chronic right upper extremity pain presented with visual hallucinations, tremulous, as well as shortness of breath, productive cough and sore throat-pulmonary consulted for shortness of breath,
wheezing and oxygen requirements 02/07/24.
COPD with acute exacerbation
Right middle and right lower lobe atelectasis
Bronchitis
Alcohol use disorder with withdrawal
Hypertensive urgency
Hyponatremia
Urinary tract infection
Transaminitis
Mild wxsito-aystoknxki-snbldpefer 11.0
Mild hyperglycemia-blood sugar 119
Hypocalcemia-7.0
Hypoalbuminemia
Conditions present prior to admission:
COPD.
Cigarette smoker.
Alcohol use disorder.
Cirrhosis.
Chronic right upper extremity pain.
Anxiety.
Hypertension.
Cannabis dependence.
Benzodiazepine dependence.
Thrombocytopenia.
Umbilical and testicular hernia.
Hepatitis C.
History of meningitis.
Spinal fluid leak repair 2001.
Teeth extraction
DNR/DNI
Plan
Respiratory decompensation likely due to underlying COPD with acute exacerbation as well as right middle and right lower lobe atelectasis
Continue to supplement oxygen as needed
Assess discharge supplemental oxygen needs prior to discharge-suspect he will require some oxygen at time of discharge which hopefully can be weaned as an outpatient
Add mucolytic's
Added nebulizers
Add steroids
Recheck chest x-ray
If persistent atelectasis then we will add vest therapy and chest physiotherapy-suspect mucous plugging-less likely endobronchial lesion with postobstructive process as CT chest May of last year did not show any major abnormalities
Consider endoscopic/bronchoscopic inspection if atelectasis does not resolve
Sputum culture
Empiric antibiotics
Smoking cessation counseling provided and will be ongoing
Nicotine patch
Alcohol withdrawal treatment protocol
Thiamine
Ativan as needed
Follow MSAS
Alcohol cessation counseling ongoing
Follow LFTs
DVT prophylaxis-on heparin
GI prophylaxis-on pantoprazole
Nutrition
Early mobilization
Recommend outpatient pulmonary evaluation-ongoing smoking cessation counseling, yearly low-dose lung cancer screening CT, PFTs, inhaler instruction/prescriptions, etc.
Reviewed with over the phone
Diagnostic data:
Chest x-ray 02/03/2024-NAD
CT low-dose lung cancer screening 09/24/2021-no parenchymal nodules
CT chest low-dose lung cancer screening 05/18/[id number] 3 mm nodule right lower lobe unchanged compared to 2020, no evidence for new nodules, coronary calcifications noted
Chest CT with PE protocol 02/03/2024-no evidence for pulmonary embolism, complete atelectasis right lower lobe and majority of the right middle lobe, hepatic cirrhosis
Echocardiogram 12/06/2022-EF 60-65%, mild mitral regurgitation, PA systolic estimated 20-25
Nuclear stress test 11/19/2022-EF 50%, moderate risk study, EKG negative for ischemia, occasional PVCs
Data Reviewed
-
EKG: Report reviewed by me
Radiology: Image personally visualized and interpreted and Report reviewed by me
CT Scan: Image personally visualized and interpreted and Report reviewed by me
Medical Tests (Nuc Med, Echo etc): Report reviewed by me
Labs: Labs reviewed by me
Old Records: Reviewed
Total Time Spent with Patient (in minutes): 63
--- NOTE | 2024-02-07 09:33 | W.PN.HOSP.TC ---
Today's Communication/Plan
-
.
Assessment / Plan
Assessment / Plan
Physical Exam
-
General: on nasal O2, No Apparent Distress
HEENT: Normocephalic, Atraumatic and Oxygen
Respiratory: limited with rhonchi both sides, limited on right lower side
Cardiac: S1S2
GI: Soft, Nontender, Nondistended and Normal Bowel Sounds
Musculoskeletal: No Clubbing, No Cyanosis and No Edema
Neuro: Awake and Alert. He follows commands.
Psych: Calm, no agitation
pt is a 58 year old male
#Acute hypoxic respiratory failure with lactic acidosis-- SaO2 at 84 % on RA
Received High flow O2, then 6 liters. Weaned down to 4 liters with SaO2 at 92%
Hypoxia due to combination of atelectasias and underlying COPD, aspiration PNA in RLL, chronic smoker.
CT chest showed no PE, complete atelectasis of the right lower lobe and the majority of the right middle lobe. Hepatic cirrhosis.
WBC is normal now. Afebrile
-blood culture positive for strep species, reculture blood 02/05
Sputum culture + for Klebsiella oxytoca
Added IS and acapella-
-Covid and flu negative
- Started on Nebulizer and Robitussin QID
Appreciate pulmonary help
# Klebsiella PNA. Tan sensitive
c/w Zosyn while in hospital.Will need total 10-14 days on TX. Can change to oral Augmentin when ready.
Repeat chest x ray 02/06 showed significant improvement in the interval since the 02/03/2024 CT examination with mild residual subsegmental atelectasis at the right lung base
#Alcohol withdrawal with Alcohol use disorder--Mild
After talking with family. It seemed that patient went through the major part of withdrawal at home and presented later.
received Ativan in ED on 02/02 and one dose on 02/03 ONLY
He is fully oriented and no tremor or agitation noted
--cont MSAS protocol, thiamine, folate--stopped IVF--no further signs of DT.
Per family: pt was not 100% to them cognitively.
CT head showed mild age-related parenchymal atrophy. Stable chronic encephalomalacia in the anterior inferior right frontal lobe. No intra- or extra-axial mass, hemorrhage, or fluid collection. Mild subcortical, deep, and periventricular white
matter low-attenuation, compatible with changes of chronic small vessel ischemic disease. Postoperative changes of the frontal bones and previous endoscopic sinus surgery. Decreased paranasal sinus mucosal disease and nasal polyposis compared to the
previous CT. The mastoid air cells are clear.
Will order MRI head. Patient will benefit from seeing neurologist in OP setting.
#Hyponatremia/ mild
no confusion
#Hypokalemia-
is 3.6, c/w K supplement
#Essential HTN with Hypertensive urgency--EKG shows sinus tachycardia, nonspecific intraventricular conduction delay--As needed hydralazine
# Not UTI
Culture is negative
# Alcoholic hepatitis, mild
No abd pain
Transaminitis secondary to alcohol use--improving
#History of alcoholic cirrhosis--Continue spironolactone
Added PPI
#Active smoker--Nicotine patch
#Essential hypertension--
Good control of BP. No headache or chest pain. Continue spironolactone
#Chronic right upper extremity pain--Continue tramadol
X ray of shoulder joint showed degenerative changes in glenohumeral and acromioclavicular joints
#code status--DNR/DNI
#DVT prophylaxis�heparin
Total time spent to see the patient, examine the patient on the floor, review data and lab results, discuss treatment plan with patient, family, nursing staff around 55 minutes.
Anticipated Discharge: > 48 hours
Subjective/Interval History
-
Date of Service: February 07, 2024
no chest pain
No headache
No abd pain
Objective Data
-
Vital Signs:
Vital Signs
Temp Pulse Resp BP Pulse Ox
98.3 F 89 18 120/64 92
02/07/24 07:30 02/07/24 08:21 02/07/24 07:30 02/07/24 08:21 02/07/24 07:30
I&O
02/06/24 02/07/24 02/08/24
06:59 06:59 06:59
Intake Total 700 / 700 1320 / 1320
Output Total 1100 / 1100 550 / 550
Balance -400 / -400 770 / 770
[2024-02-07] MEDS: DUONEB INH (12:22)
--- NOTE | 2024-02-07 12:30 | CON.NEURO4 ---
Addendum entered and electronically signed by Jonny Pimentel MD 02/07/24 14:40:
Studies reviewed.
I have personally examined the patient. I reviewed and agree with the [employer]'s Note.
My addenda:
Awake, alert, interactive. No acute distress.
Speech intact.
Follows 2-step requests w/o difficulty. No tremor.
Extra-ocular movements grossly intact.
Facial movements full and symmetric. Hearing intact to normal conversational volume.
Normal UE movements bilaterally.
Neck: full ROM.
Chest: no dyspnea
Heart: no JVD
Ext: (-) Clubbing, (-) Cyanosis, (-) Edema
IMPRESSIONS/RECOMMENDATIONS:
Abrupt onset of encephalopathy, improved following improvement of alcoholic metabolic encephalopathy subsequently the discovery of lacunar infarcts in multiple locations including left cerebellum, and right centrum semiovale and with chronic right
frontal injury presumed to be secondary to prior meningitis
Provide aspirin, would not add clopidogrel due to risk of further platelet dysfunction with thrombocytopenia currently present
Follow lipid profile with addition of atorvastatin if LDL is greater than 70
Check MRA head and neck for completeness
Check echocardiogram
Continue thiamine and folic acid replacement
Provide medical educational materials
Smoking cessation
D/W patient / family
Will continue to follow pending results.
Original Note:
Documented by User: Tonya Oates NP 02/07/24 14:09
Consultation - Neurology 4
-
CONSULTING PHYSICIAN: Jonny Pimentel MD
REFERRING PHYSICIAN: Hospitalists/Dr. Hernandez
DICTATED BY: MARCIA Hutson
DATE/TIME OF REQUEST: 02/07/24
DATE/TIME OF CONSULTATION: 02/07/24
Reason for Consultation: CVA
History of Present Illness:
This is a 58-year-old right-handed male who has presented to the hospital on 02/03/24 with report of confusion, speech difficulty, visual hallucinations, and ambulatory dysfunction in the setting of abrupt drinking and smoking cessation 5 days
earlier. Patient is a limited historian. H's family at bedside reports that his confusion started one week ago on 01/30/24; but his speech difficulty, visual hallucinations, and ambulatory dysfunction became very prominent on 02/03/24, prompting them
to bring him to the ER for evaluation. CT head was obtained on arrival and was negative for any acute abnormalities. Patient reported a productive cough, and was dyspneic requiring oxygen via nasal cannula. Temperature was 102.8F. Blood cultures
were initially positive for strep and sputum was positive for klebsiella. CT chest suggestive of RLL aspiration pneumonia. He received lorazepam x1 on 02/03/24 and x1 on 02/04/24 for alcohol withdrawal symptoms. Yesterday (02/06/24), patient was noted
by family to be 85-90% improved/back to baseline but was still not completely himself cognitively, prompting his primary team to order MRI brain imaging. MRI brain was obtained today (02/07/24) and demonstrates a small right lateral ventricle and a
small posterior left cerebellar ischemic infarct, in addition to an old area of encephalomalacia in the right frontal lobe. Currently, patient reports some confusion, right shoulder/neck pain, and dry mouth causing slurred speech. He denies any
headache, vision changes, swallowing difficulty, numbness, weakness, nausea, chest pain, palpitations, and shortness of breath. 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 He has a history of
meningitis in 1998 and a left frontal CSF leak repair by ENT in 2001. His denies any known history of TIA or stroke. He has chronic thrombocytopenia and is not taking any blood thinning medications.
Past Medical History: Meningitis 1998, CSF leak, HTN, alcohol abuse, alcoholic cirrhosis, hepatitis C, thrombocytopenia anxiety, COPD, benzodiazepine dependence, umbilical and testicular hernia
Surgical History: CSF leak repair by ENT 2001, tooth extraction
Family History: Mother- CVA
Social History: Current smoker 10-20 cigarettes daily. Alcohol abuse, was drinking a bottle of liquor/day, stopped 5 days prior to arrival. +Marijuana.
Allergies: No known allergies.
Home Medications: See below.
Review of Symptoms:
Patient denies any fever, headache, chest pain, shortness of breath, GI or symptoms.
�Per the HPI.�All systems are reviewed negative except above.
Physical Exam:
The patient is afebrile, abdomen is nondistended, breathing is unlabored, skin is warm and dry, trace right knee edema. Scab on tip of nose.
NIH Stroke Scale:
I performed the NIH stroke scale on the patient on 02/07/24 at 1300. The patient scored 1 points on the NIH stroke scale assessment, which were assigned as follows: See below.
Neurologic Examination:
The patient is awake, alert and oriented x 3. He is able to follow commands and answer questions appropriately. There is no aphasia. Mild dysarthria. On cranial nerve assessment, pupils are 3 mm bilateral, round and reactive to light and
accommodation. Sclera are icterus. Visual cameron are full. Extraocular movements are intact. Facial sensations are intact and bilaterally symmetrical, there is no facial asymmetry. Hearing is intact bilaterally to normal conversation volume. Tongue
palate and uvula are midline. Sternocleidomastoid strengths are full bilaterally. Motor strengths are 5/5 left upper, right upper 5/5 distally, limited proximal RUE ROM due to shoulder pain, and 5/5 bilateral lower extremities on medical research
[place] scale. There is no drift or involuntary movement noted. Deep tendon reflexes are 1+ bilateral upper and lower extremities and Babinski is absent bilaterally. There was no extinction noted on double simultaneous stimulation. Coordination is
intact by finger to nose bilaterally.
Lab Results: See below.
Neuro Imaging:
1. CT Head 02/03/24: No acute intracranial abnormality. Chronic findings, as above.
2. MRI brain 02/07/24: There are 2 small areas of restricted diffusion, one posterior to the right lateral ventricle in the parietal lobe and one in the posterior left cerebellum, consistent with small acute nonhemorrhagic infarcts.
Old infarct in the right frontal lobe, with encephalomalacia. Mild diffuse volume loss and leukoaraiosis.
Differentials for the patient's presentation include:
1. Acute/subacute right lateral ventricle and left cerebellar ischemic infarcts. Etiology concerning for embolic given bihemispheric locations of the infarcts.
2. Chronic right frontal lobe encephalomalacia, etiology either from meningitis infection in 1998 vs old ischemic stroke, unclear.
3. Chronic thrombocytopenia in the setting of alcoholic cirrhosis.
4. Alcohol withdrawal, appears resolved at this point.
Patient has the following risk factors for their symptoms: Alcohol and tobacco abuse, HLD, HTN, hx meningitis
IV Tenecteplase/IAT candidacy: Not a candidate due to outside of time window, NIHSS <6, thrombocytopenia.
Recommendations:
-Initiate aspirin 81mg daily. Would not initiate Plavix due to thrombocytopenia.
-Goal normotension.
-MRA COW/neck ordered/pending.
-TTE ordered/pending.
-Continue thiamine and folic acid replacement.
-MSAS protocol.
-Right shoulder evaluation per primary team.
-LDL goal <70. Lipid panel pending.
-Goal normoglycemia, hbA1c pending.
-NIHSS and neurological checks per unit guidelines.
-Patient/family provided with a stroke education packet.
-PT/OT/ST evaluations.
-DVT prophylaxis.
-Patient can follow-up with Neurology as an outpatient as-needed. May see the [facility] or one of the physicians.
Discussed patient care with: Dr. Pimentel, the patient
Vital Signs and Labs
-
Vital Signs and Labs:
Vital Signs
Temp Pulse Resp BP Pulse Ox
98.3 F 89 18 120/64 92
02/07/24 07:30 02/07/24 08:21 02/07/24 07:30 02/07/24 08:21 02/07/24 07:30
Lab Results
02/06/24 08:06
02/06/24 08:06
PT 20.2 Sec (11.4-14.6) H 02/03/24 14:11
INR 1.74 02/03/24 14:11
APTT 34.2 Sec (23.4-35.0) 02/03/24 14:11
Sodium 134 mmol/L (135-145) L 02/06/24 08:06
Potassium 3.6 mmol/L (3.5-5.1) 02/06/24 08:06
BUN 12 mg/dl (9-20) 02/06/24 08:06
Glucose 105 mg/dl (70-99) H 02/06/24 08:06
Calcium 7.8 mg/dl (8.4-10.2) L 02/06/24 08:06
Phosphorus Cancelled 02/03/24 18:18
Medications
-
Active Medications
Generic Name Dose Route Start Last Admin
Trade Name Freq PRN Reason Stop Dose Admin
Acetaminophen 650 mg 02/03/24 17:07 02/05/24 18:47
Acetaminophen 325 Mg Tablet PO 03/02/24 17:06 650 mg
Q6HPRN PRN Administration
mild pain/ fever>100.5F
Albuterol/Ipratropium 3 ml 02/07/24 09:40
Ipratropium 0.5/Albuterol 3 Mg (3 Ml Ampul) INH
R Q4HPRN PRN
Wheeze
Protocol
Albuterol/Ipratropium 3 ml 02/07/24 12:00 02/07/24 12:22
Ipratropium 0.5/Albuterol 3 Mg (3 Ml Ampul) INH Not Given
R QID RACHEL
Protocol
Aspirin 81 mg 02/07/24 13:00
Aspirin 81 Mg Chewable Tablet PO 03/06/24 12:59
DAILY RACHEL
Clopidogrel Bisulfate 75 mg 02/07/24 13:00
Clopidogrel 75 Mg Tablet PO 03/06/24 12:59
DAILY RACHEL
Dexamethasone Sodium Phosphate 4 mg 02/07/24 12:00
Dexamethasone 4 Mg/Ml 1 Ml Vial IV 03/06/24 11:59
Q8H RACHEL
Folic Acid 1 mg 02/04/24 08:00 02/07/24 08:21
Folic Acid 1 Mg Tablet PO 03/03/24 07:59 1 mg
DAILY RACHEL Administration
Guaifenesin 200 mg 02/07/24 13:00
Guaifenesin Oral Solution (200 Mg/10 Ml) Cup PO 03/06/24 12:59
QID RACHEL
Heparin Sodium 5,000 units 02/03/24 20:00 02/07/24 08:22
Heparin 5,000 Units/Ml 1 Ml Vial SC 03/02/24 19:59 5,000 units
Q12 RACHEL Administration
Hydralazine HCl 5 mg 02/03/24 16:50
Hydralazine 20 Mg/Ml Vial IV 03/02/24 16:49
Q6HPRN PRN
SBP>170
Piperacillin Sod/Tazobactam Sod 3.375 gram in 50 mls @ 100 mls/hr 02/03/24 22:00 02/07/24 09:19
Zosyn IV 50 mls
Q6H RACHEL Administration
Promethazine HCl 12.5 mg/ 50.5 mls @ 101 mls/hr 02/03/24 18:49
Sodium Chloride IV 03/02/24 18:48
Q4HPRN PRN
nausea and vomiting
Lorazepam 1 mg 02/03/24 16:41 02/04/24 16:08
Lorazepam 1 Mg Tablet PO 03/02/24 16:40 1 mg
Q2HPRN PRN Administration
MSAS 5-7
Lorazepam 1 mg 02/03/24 16:41 02/03/24 17:03
Lorazepam 2 Mg/Ml Vial IV 03/02/24 16:40 1 mg
Q1HPRN PRN Administration
MSAS 8-11
Lorazepam 2 mg 02/03/24 16:41
Lorazepam 2 Mg/Ml Vial IV 03/02/24 16:40
Q1HPRN PRN
MSAS > 11
Nicotine 14 mg 02/03/24 18:33 02/07/24 08:21
Nicotine 14 Mg Patch TRANSDERM 03/02/24 18:32 14 mg
DAILY RACHEL Administration
Pantoprazole Sodium 40 mg 02/07/24 08:00 02/07/24 08:21
Pantoprazole 40 Mg Delayed Release Tablet PO 03/06/24 07:59 40 mg
DAILY RACHEL Administration
Sodium Chloride 0 ml 02/03/24 16:41
Sodium Chloride 0.9% (Preservative Free) 10 Ml Vial IV 03/02/24 16:40
PRN PRN
To dilute IV Ativan
Protocol
Sodium Chloride 0 flush 02/03/24 19:00
Sodium Chloride 0.9% (Flush) Syringe IV 03/02/24 18:59
PER PROTOCOL RACHEL
Spironolactone 25 mg 02/04/24 08:00 02/07/24 08:21
Spironolactone 25 Mg Tablet PO 03/03/24 07:59 25 mg
DAILY RACHEL Administration
Thiamine HCl 100 mg 02/06/24 20:00 02/07/24 08:21
Thiamine 100 Mg Tablet PO 03/05/24 19:59 100 mg
BID RACHEL Administration
Tramadol HCl 100 mg 02/03/24 18:33 02/07/24 09:19
Tramadol Hcl 50 Mg Tablet PO 03/02/24 18:32 100 mg
Q8HPRN PRN Administration
severe pain
Home Medications
�Medication �Instructions �Recorded
alprazolam 1 mg tablet 1 mg PO .SEE BELOW 02/03/24
aspirin 81 mg tablet,delayed 162 mg PO BIDPRN PRN mild pain 02/03/24
release
spironolactone 25 mg tablet 25 mg PO DAILY 02/03/24
tramadol 50 mg tablet 100 mg PO Q8HPRN PRN severe pain 02/03/24
NIH Stroke Score
Subsequent NIH Scale
Date of Subsequent NIH Scale: 02/07/24
Time of Subsequent NIH Scale: 13:00
NIH Stroke Score
Level of Consciousness: 0 - Alert
LOC Questions: 0-Answers both correctly
LOC Commands: 0-Performs both correctly
Best Horizontal Gaze: 0-Normal
Visual Cameron: 0=Normal, no visual loss
Facial Palsy: 0=Normal, symmetrical
Motor - Right Arm: 0=No drift 10 seconds
Motor - Left Arm: 0=No drift 10 seconds
Motor - Right Le-No drift 5 seconds
Motor - Left Le-No drift 5 seconds
Limb Ataxia: 0-Absent
Sensation: 0-Normal
Best Language: 0-No aphasia
Dysarthria: 1-Mild slurring
Extinction and Inattention: 0-No abnormality
Total Score:: 1
Modified [place] (mRS) Score
Modified Leanne Scale (mRS): No significant disability. Able to carry out usual activities.
Score: 1

Documented by User: Jonny Pimentel MD 02/07/24 14:33
NIH Stroke Score
NIH Stroke Score
Total Score:: 1
Modified Leanne (mRS) Score
Score: 1
[2024-02-07] MEDS: LOW STRENGTH ASPIRIN 81 MG PO (13:21)
[2024-02-07] MEDS: ROBITUSSIN 200 MG PO ×3 (13:22→21:16)
[2024-02-07] MEDS: DECADRON 4 MG IV ×2 (13:22→21:15)
--- NOTE | 2024-02-07 14:02 | PTOTSP ---
ST Acute Care Evaluation
Pt presents with generally functional oropharyngeal parameters safe for PO intake of all solid and liquid consistencies. No skilled dysphagia tx indicated at this time.
In setting of acute CVAs, pt would benefit from a cognitive linguistic screening by [employer].
Recommendations:
- Continue with regular solids, thin liquids, meds as tolerated.
- Cognitive linguistic screening, as able.
--- NOTE | 2024-02-07 15:27 | CM ---
Patient currently off floor. CM will watch for PT/OT evaluations/recommendations. CM will continue to follow for discharge planning needs.
Plan; will depend on PT/OT evaluations.
[2024-02-07 15:40] LABS: HDL Cholesterol 18 mg/dl; LDL Cholesterol, Calculated 45 mg/dl; Total Cholesterol 80 mg/dl (50-199); Triglyceride 89 mg/dl (10-149); Very Low Density Lipoprotein 17 mg/dl (0-30)
[2024-02-07] MEDS: DUONEB 3 ML INH ×2 (15:50→19:12)
[2024-02-07 16:11] LABS: TSH Reflex To Free T4 2.25 uIU/ml (0.47-4.68)
[2024-02-07 16:46] LABS: Folate 11.5 ng/ml (2.76-20); Vitamin B12 > 1000 pg/ml (239-931)
[2024-02-07] MEDS: LIDOCAINE 4% PATCH 1 PATCH TOPICAL (17:20)
[2024-02-08] VITALS (8 sets, daily range): BP systolic 104–131; BP diastolic 55–67; PULSE 90–109; O2SAT 89
[2024-02-08] MEDS: ZOSYN 50 IV ×4 (04:39→21:46)
[2024-02-08] MEDS: DECADRON 4 MG IV ×2 (04:39→16:10)
[2024-02-08] MEDS: DUONEB 3 ML INH ×4 (07:59→20:42)
--- NOTE | 2024-02-08 08:58 | W.PN.PUL.V3 ---
Today's Communication / Plan
-
Decrease Decadron-would not discontinue altogether
Consider changing to prednisone with taper tomorrow
Continue nebulizers
Mucus clearing devices
Antibiotics-add atypical coverage
Chest x-ray significantly improved-hold off on bronchoscopic endobronchial evaluation for now
Assessment
-
58-year-old male smoker with alcohol use disorder with chronic right upper extremity pain presented with visual hallucinations, tremulous, as well as shortness of breath, productive cough and sore throat-pulmonary consulted for shortness of breath,
wheezing and oxygen requirements 02/07/24.
COPD with acute exacerbation
Right middle and right lower lobe atelectasis
Bronchitis
Encephalopathy
Multiple previous lacunar infarcts
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
Alcohol use disorder with withdrawal
Hypertensive urgency
Hyponatremia
Urinary tract infection
Transaminitis
Mild jqrhqd-gpmiohgoaf-nrikznwida 11.0
Mild hyperglycemia-blood sugar 119
Hypocalcemia-7.0
Hypoalbuminemia
Conditions present prior to admission:
COPD.
Cigarette smoker.
Alcohol use disorder.
Cirrhosis.
Chronic right upper extremity pain.
Anxiety.
Hypertension.
Cannabis dependence.
Benzodiazepine dependence.
Thrombocytopenia.
Umbilical and testicular hernia.
Hepatitis C.
History of meningitis.
Spinal fluid leak repair 2001.
Teeth extraction
DNR/DNI
Plan
Respiratory decompensation likely due to underlying COPD with acute exacerbation as well as right middle and right lower lobe atelectasis
Continue attempts at weaning FiO2
Assess discharge supplemental oxygen needs prior to discharge-suspect he will require some oxygen at time of discharge which hopefully can be weaned as an outpatient
Mucolytic's added
Nebulizers added
Decadron added-will begin to reduce-much improved today-reduced to 4 mg IV every 12 hours
Chest x-ray with improved aeration noted-suspect with mucous plug
Hold off on bronchoscopic inspection and significant improvement
Sputum culture-02/04/2024-Klebsiella
Blood cultures negative
Empiric antibiotics-on Zosyn
Will add doxycycline for atypical coverage
Smoking cessation counseling provided and will be ongoing
Nicotine patch
Alcohol withdrawal treatment protocol
Thiamine
Ativan as needed
Follow MSAS
Alcohol cessation counseling ongoing
Follow LFTs
DVT prophylaxis-on heparin
GI prophylaxis-on pantoprazole
Nutrition
Early mobilization
Recommend outpatient pulmonary evaluation-ongoing smoking cessation counseling, yearly low-dose lung cancer screening CT, PFTs, inhaler instruction/prescriptions, etc.
Dr. Ford reviewed with over the phone on 02/07/24
Diagnostic data:
Chest x-ray 02/03/2024-NAD
Chest x-ray 02/07/24-significant improvement in interval since 02/03/2024
CT low-dose lung cancer screening 09/24/2021-no parenchymal nodules
CT chest low-dose lung cancer screening 05/18/20234317-[id number] 3 mm nodule right lower lobe unchanged compared to 2020, no evidence for new nodules, coronary calcifications noted
Chest CT with PE protocol 02/03/2024-no evidence for pulmonary embolism, complete atelectasis right lower lobe and majority of the right middle lobe, hepatic cirrhosis
Echocardiogram 12/06/2022-EF 60-65%, mild mitral regurgitation, PA systolic estimated 20-25
Nuclear stress test 11/19/2022-EF 50%, moderate risk study, EKG negative for ischemia, occasional PVCs
Subjective Data
-
Date of Service:
Date of Service: February 08, 2024
Chief Complaint: Pulmonary Follow Up and Dyspnea Follow Up
Subjective:
Feels better, less short of breath, less chest congestion, no productive cough, no chest pain or abdominal pain
Review of Systems
General: Other (Per HPI)
Objective Data
Data Reviewed
Vital Signs / I&O:
Vital Signs
Temp Pulse Resp BP Pulse Ox
97.8 F 75 16 111/64 91
02/08/24 07:30 02/08/24 08:02 02/08/24 08:02 02/08/24 07:30 02/08/24 08:02
Intake and Output
02/07/24 02/08/24 02/09/24
06:59 06:59 06:59
Intake Total 1320 / 1320 480 / 480
Output Total 550 / 550 500 / 500
Balance 770 / 770 -20 / -20
SaO2: 91
Nasal Cannula flow liters per minute: 3
Physical Exam
General: Respiratory Distress (n) and Comfortable
HEENT: Normocephalic, Anicteric and Moist Mucous Membranes
Cardiovascular: Regular Rhythm
Respiratory: Wheeze (Few forced expiratory), Crackles ( rare basilar), Rhonchi (Few expiratory), Non-Labored Respirations, Accessory Resp Muscle Use (n) and Stridor (n)
GI: Soft, Non Distended and Non Tender
Neurology: Awake, Alert and No Motor Deficits
Skin: Warm, Good Color, Cyanosis (n), Jaundice and Rash (n)
Labs/Micro/Reports
Lab Data
02/06/24 08:06
02/06/24 08:06
Microbiology
02/06/24 12:17 Blood/Venous Blood Culture - Preliminary
No Growth in 24 hours- Final report to follow
02/06/24 11:55 Blood/Venous Blood Culture - Preliminary
No Growth in 24 hours- Final report to follow
02/04/24 22:08 Sputum Respiratory Culture - Final
Klebsiella oxytoca
02/04/24 22:08 Sputum Gram Stain - Final
02/03/24 14:11 Blood/Venous Blood Culture - Final
Streptococcus species
Additional testing on request
02/03/24 14:11 Blood/Venous Gram Stain - Final
--- NOTE | 2024-02-08 09:45 | W.PN.NEURO.1 ---
Today's Communication / Plan
-
Reimaging of head and neck by MRA in approximately 3 years (2026) to determine if size of aneurysm has advanced, surgical treatment is considered at 7 mm
Continue aspirin without clopidogrel, lifelong
Patient should not receive atorvastatin due to significantly low total cholesterol and LDL levels
Continue thiamine
Neuro Assessment/Plan
Assessment
IMPRESSIONS/RECOMMENDATIONS:
Abrupt onset of encephalopathy, improved following improvement of alcoholic metabolic encephalopathy subsequently the discovery of lacunar infarcts in multiple locations including left cerebellum, and right centrum semiovale and with chronic right
frontal injury presumed to be secondary to prior meningitis
MRA head and neck for completeness demonstrated a subclinical right anterior communicating cerebral artery aneurysm (2 mm)
No evidence by echocardiogram for thrombotic risk
Plan
Reimaging of head and neck by MRA in approximately 3 years (2026) to determine if size of aneurysm has advanced, surgical treatment is considered at 7 mm
Continue aspirin without clopidogrel, lifelong
Patient should not receive atorvastatin due to significantly low total cholesterol and LDL levels
Continue thiamine
Will follow as needed
Subjective/Objective
Subjective Data
Date of Service: February 08, 2024
Objective Data
Vital Signs
Temp Pulse Resp BP Pulse Ox
36.6 C 75 16 111/64 91
02/08/24 07:30 02/08/24 08:02 02/08/24 08:02 02/08/24 07:30 02/08/24 08:58
Lab Results
02/06/24 08:06
02/06/24 08:06
PT 20.2 Sec (11.4-14.6) H 02/03/24 14:11
INR 1.74 02/03/24 14:11
APTT 34.2 Sec (23.4-35.0) 02/03/24 14:11
Sodium 134 mmol/L (135-145) L 02/06/24 08:06
Potassium 3.6 mmol/L (3.5-5.1) 02/06/24 08:06
BUN 12 mg/dl (9-20) 02/06/24 08:06
Glucose 105 mg/dl (70-99) H 02/06/24 08:06
Calcium 7.8 mg/dl (8.4-10.2) L 02/06/24 08:06
Phosphorus Cancelled 02/03/24 18:18
LDL Cholesterol, Calc 45 mg/dl 02/07/24 15:05
Vitamin B12 > 1000 pg/ml (239-931) H 02/07/24 15:05
Patient Allergies
No Known Allergies Allergy (Verified 10/11/22 09:33)
[2024-02-08] MEDS: ALDACTONE 25 MG PO (09:48)
[2024-02-08] MEDS: FOLVITE 1 MG PO (09:49)
[2024-02-08] MEDS: HEPARIN 5000 UNITS SC ×2 (09:50→21:46)
[2024-02-08] MEDS: LIDOCAINE 4% PATCH 1 PATCH TOPICAL (09:54)
[2024-02-08] MEDS: NICODERM TRANSDERMAL 14 MG TRANSDERM (09:55)
[2024-02-08] MEDS: LOW STRENGTH ASPIRIN 81 MG PO (09:55)
[2024-02-08] MEDS: PROTONIX 40 MG PO (09:56)
[2024-02-08] MEDS: ROBITUSSIN 200 MG PO ×4 (09:57→21:46)
[2024-02-08] MEDS: VITAMIN B1 100 MG PO ×2 (09:57→21:46)
--- NOTE | 2024-02-08 11:47 | W.PN.HOSP.TC ---
Today's Communication/Plan
-
.
Assessment / Plan
Assessment / Plan
Physical Exam
-
General: on nasal O2, No Apparent Distress
HEENT: Normocephalic, Atraumatic and Oxygen
Respiratory: limited with rhonchi both sides, limited on right lower side
Cardiac: S1S2
GI: Soft, Nontender, Nondistended and Normal Bowel Sounds
Musculoskeletal: No Clubbing, No Cyanosis and No Edema
Neuro: Awake and Alert. He follows commands.
Psych: Calm, no agitation
pt is a 58 year old male
#Acute hypoxic respiratory failure with lactic acidosis-- SaO2 at 84 % on RA
Received High flow O2, then 6 liters. Weaned down to 4 liters with SaO2 at 92%
Hypoxia due to combination of atelectasias and underlying COPD, aspiration PNA in RLL, chronic smoker.
CT chest showed no PE, complete atelectasis of the right lower lobe and the majority of the right middle lobe. Hepatic cirrhosis.
WBC is normal now. Afebrile
-blood culture positive for strep species, reculture blood 02/05
Sputum culture + for Klebsiella oxytoca
Added IS and acapella-
-Covid and flu negative
- Started on Nebulizer, steroid and Robitussin QID
d/w pulmonary, agree to reduce steroid dose
Anticipate he will need home O2
Pt reports that he is determined to quit alcohol and tobacco use.
Appreciate pulmonary help
# Klebsiella PNA. Tan sensitive
c/w Zosyn while in hospital.Will need total 10-14 days on TX. Can change to oral Augmentin when ready.
Repeat chest x ray 02/06 showed significant improvement in the interval since the 02/03/2024 CT examination with mild residual subsegmental atelectasis at the right lung base
#Alcohol withdrawal with Alcohol use disorder--Mild
After talking with family. It seemed that patient went through the major part of withdrawal at home and presented later.
received Ativan in ED on 02/02 and one dose on 02/03 ONLY
He is fully oriented and no tremor or agitation noted
--cont MSAS protocol, thiamine, folate--stopped IVF--no further signs of DT.
Per family: pt was not 100% to them cognitively.
# Acute strokes
MRI brain showed 2 small areas of restricted diffusion, one posterior to the right lateral ventricle in the parietal lobe and one in the posterior left cerebellum, consistent with small acute nonhemorrhagic infarcts. Old infarct in the right frontal
lobe, with encephalomalacia. Mild diffuse volume loss and leukoaraiosis.
CT head showed mild age-related parenchymal atrophy. Stable chronic encephalomalacia in the anterior inferior right frontal lobe. No intra- or extra-axial mass, hemorrhage, or fluid collection. Mild subcortical, deep, and periventricular white
matter low-attenuation, compatible with changes of chronic small vessel ischemic disease. Postoperative changes of the frontal bones and previous endoscopic sinus surgery. Decreased paranasal sinus mucosal disease and nasal polyposis compared to the
previous CT. The mastoid air cells are clear.
MRA studies, no critical stenosis.
No neuro deficits
Will likely need rehab
c/w aspirin. Due to ongoing liver cirrhosis/ thrombocytopenia, avoid combination of anti-platelets
Echo of heart Normal LVEF 55-60 %
HGB A1C 5.0
Appreciate neurology help
s/p PT/OT/Speech
#Hyponatremia/ mild
no confusion
#Hypokalemia-
is 3.6, c/w K supplement
# Not UTI
Culture is negative
# Alcoholic hepatitis, mild
No abd pain
Transaminitis secondary to alcohol use--improving
#History of alcoholic cirrhosis--Continue spironolactone
Added PPI
#Active smoker--Nicotine patch
#Essential hypertension--
Good control of BP. No headache or chest pain. Continue spironolactone
#Chronic right upper extremity pain--Continue tramadol
X ray of shoulder joint showed degenerative changes in glenohumeral and acromioclavicular joints
#code status--full code per pt.
#DVT prophylaxis�heparin
Total time spent to see the patient, examine the patient on the floor, review data and lab results, discuss treatment plan with patient, family, nursing staff around 59 minutes.
Anticipated Discharge: 24 - 48 hours
Subjective/Interval History
-
Date of Service: February 08, 2024
No complaints
No cough or sob
Objective Data
-
Vital Signs:
Vital Signs
Temp Pulse Resp BP Pulse Ox
97.8 F 80 16 111/64 95
02/08/24 07:30 02/08/24 11:44 02/08/24 11:44 02/08/24 09:48 02/08/24 11:44
I&O
02/07/24 02/08/24 02/09/24
06:59 06:59 06:59
Intake Total 1320 / 1320 480 / 480
Output Total 550 / 550 500 / 500
Balance 770 / 770 -20 / -20
[2024-02-08] MEDS: VIBRAMYCIN 100 MG PO ×2 (12:18→21:46)
--- NOTE | 2024-02-08 12:32 | CM ---
CM reviewed chart, PT/OT rec SNF vs HH. CM met with patient and bedside, patient would like home health services and not agreeable to SNF. Patients reports patient is not ready to return home with services and would like referrals sent to
[facility]. Patients would like patients daughter, Valeria, involved in decision making and would like to meet with CM with daughter tomorrow at 10:00 a.m. CM will continue to follow for discharge planning needs.
Plan; SNF vs HH, watch for home O2 needs.
--- NOTE | 2024-02-08 16:48 | PN.CDI ---
Addendum entered and electronically signed by Clementina Hernandez MD 02/08/24 17:39:
Sepsis POA
Original Note:
CDI
- -
CDI:
Physician Documentation Request
Admit Date: 02/03/24 17:36
Dear Doctor Mary,
Please review the following and provide your response in the progress notes.
Clinical Indicators:
Pt admitted with Acute Hypoxic Respiratory Failure/ Aspiration PNA/ Klebsiella PNA/Metabolic Encephalopathy/Alcohol Withdrawal D
On admission Tmax 102.8, HR 111, RR 34
Treatment :'Zosyn while in hospital.Will need total 10-14 days on TX. Can change to oral Augmentin when ready.'
Please clarify which of the following most accurately describes the status of the patient's infection:
Sepsis-POA
- Systemic manifestations of infection, with 2 or more SIRS criteria which include:
- Fever >100.4 degrees F or hypothermia < 96.8 degrees F
- Leukocytosis - WBC > 12,000 or leukopenia - WBC < 4,000 or > 10% bands
- Tachycardia > 90 beats per minute
- Tachypnea - RR > 20 breaths per minute or PaCO2 , 32mmHg
Source: Merck Manual 2013
Severe Sepsis-POA
- Documentation should indicate the association between the sepsis and the organ dysfunction
Aspiration PNA/ Klebsiella PNA only Without Systemic Illness
Other
Use of terms such as suspected, likely, concern for, or probable (associated with a specific diagnosis that is being evaluated, monitored, or treated as if it exists) are acceptable and can be coded in the inpatient setting, when documented at the
time of discharge.
Thank you,
Tiffany Kelly RN
CDI Specialist
[place] [employer]
Please use your independent medical judgment in providing your response.
[2024-02-08] MEDS: MELATONIN 5 MG PO (22:07)
[2024-02-09] VITALS (7 sets, daily range): BP systolic 101–128; BP diastolic 47–70; PULSE 78–84; O2SAT 96; BMI 25.5
[2024-02-09] MEDS: ZOSYN 50 IV ×4 (04:12→21:36)
[2024-02-09] MEDS: DECADRON 4 MG IV (04:12)
[2024-02-09] MEDS: DUONEB 3 ML INH ×4 (07:29→19:18)
[2024-02-09] MEDS: NICODERM TRANSDERMAL 14 MG TRANSDERM (09:32)
[2024-02-09] MEDS: LIDOCAINE 4% PATCH 1 PATCH TOPICAL (09:32)
[2024-02-09] MEDS: LOW STRENGTH ASPIRIN 81 MG PO (09:34)
[2024-02-09] MEDS: PROTONIX 40 MG PO (09:34)
[2024-02-09] MEDS: VIBRAMYCIN 100 MG PO ×2 (09:34→21:35)
[2024-02-09] MEDS: VITAMIN B1 100 MG PO ×2 (09:34→21:36)
[2024-02-09] MEDS: FOLVITE 1 MG PO (09:34)
[2024-02-09] MEDS: ALDACTONE 25 MG PO (09:34)
[2024-02-09] MEDS: ROBITUSSIN 200 MG PO ×4 (09:35→21:36)
[2024-02-09] MEDS: HEPARIN 5000 UNITS SC ×2 (09:36→21:35)
--- NOTE | 2024-02-09 09:55 | W.PN.PUL.V3 ---
Today's Communication / Plan
-
Wean oxygen
Increase activity
Discontinue Decadron
Prednisone taper
Antibiotics
Physical and Occupational Therapy
Consider rehab if too weak to go home
Assessment
-
58-year-old male smoker with alcohol use disorder with chronic right upper extremity pain presented with visual hallucinations, tremulous, as well as shortness of breath, productive cough and sore throat-pulmonary consulted for shortness of breath,
wheezing and oxygen requirements 02/07/24.
COPD with acute exacerbation
Right middle and right lower lobe atelectasis
Bronchitis
Encephalopathy
Multiple previous lacunar infarcts
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
Alcohol use disorder with withdrawal
Hypertensive urgency
Hyponatremia
Urinary tract infection
Transaminitis
Mild wgsjly-kocaajfpxa-wticrwqagq 11.0
Mild hyperglycemia-blood sugar 119
Hypocalcemia-7.0
Hypoalbuminemia
Conditions present prior to admission:
COPD.
Cigarette smoker.
Alcohol use disorder.
Cirrhosis.
Chronic right upper extremity pain.
Anxiety.
Hypertension.
Cannabis dependence.
Benzodiazepine dependence.
Thrombocytopenia.
Umbilical and testicular hernia.
Hepatitis C.
History of meningitis.
Spinal fluid leak repair 2001.
Teeth extraction
DNR/DNI
Plan
Pulmonary status continues to improve
Wean oxygen
Assess discharge supplemental oxygen needs prior to discharge-suspect he will require some oxygen at time of discharge which hopefully can be weaned as an outpatient
Continue with mucolytic's
Continue with nebulizers
Discontinue Decadron-prednisone 40 mg with slow taper
Chest x-ray with improved aeration noted-suspect with mucous plug
Hold off on bronchoscopic inspection and significant improvement
Sputum culture-02/04/2024-Klebsiella
Blood cultures negative
Finite course of antibiotics
Smoking cessation counseling provided and will be ongoing
Nicotine patch continues
Alcohol withdrawal treatment protocol
Thiamine
Ativan as needed
Follow MSAS
Alcohol cessation counseling ongoing
Follow LFTs
Consider physical and Occupational Therapy evaluation- would prefer patient going to rehab as he is very weak-reviewed with hospitalist
DVT prophylaxis-on heparin
GI prophylaxis-on pantoprazole
Nutrition
Physical therapy
Recommend outpatient pulmonary evaluation-ongoing smoking cessation counseling, yearly low-dose lung cancer screening CT, PFTs, inhaler instruction/prescriptions, etc.
Dr. Ford reviewed with over the phone on 02/07/24 and again extensively at the bedside 02/09/24
Diagnostic data:
Chest x-ray 02/03/2024-NAD
Chest x-ray 02/07/24-significant improvement in interval since 02/03/2024
CT low-dose lung cancer screening 09/24/2021-no parenchymal nodules
CT chest low-dose lung cancer screening 05/18/20237179-[id number] 3 mm nodule right lower lobe unchanged compared to 2020, no evidence for new nodules, coronary calcifications noted
Chest CT with PE protocol 02/03/2024-no evidence for pulmonary embolism, complete atelectasis right lower lobe and majority of the right middle lobe, hepatic cirrhosis
Echocardiogram 12/06/2022-EF 60-65%, mild mitral regurgitation, PA systolic estimated 20-25
Nuclear stress test 11/19/2022-EF 50%, moderate risk study, EKG negative for ischemia, occasional PVCs
Subjective Data
-
Date of Service:
Date of Service: February 09, 2024
Chief Complaint: Pulmonary Follow Up and Dyspnea Follow Up
Subjective:
Feels better, still weak, some dyspnea on exertion, less wheezing, less productive cough, no chest pain or abdominal pain
Review of Systems
General: Other (Per HPI)
Objective Data
Data Reviewed
Vital Signs / I&O:
Vital Signs
Temp Pulse Resp BP Pulse Ox
98.0 F 91 20 128/70 94
02/09/24 08:06 02/09/24 09:34 02/09/24 08:06 02/09/24 09:34 02/09/24 08:06
Intake and Output
02/08/24 02/09/24 02/10/24
06:59 06:59 06:59
Intake Total 480 / 480 1360 / 1360
Output Total 500 / 500 500 / 500
Balance -20 / -20 860 / 860
SaO2: 94
Nasal Cannula flow liters per minute: 3
Physical Exam
General: Respiratory Distress (n) and Comfortable
HEENT: Normocephalic, Anicteric and Moist Mucous Membranes
Cardiovascular: Regular Rhythm
Respiratory: Wheeze (Expiratory wheezing improved-minimal now), Crackles ( rare basilar), Rhonchi (Few expiratory), Non-Labored Respirations, Accessory Resp Muscle Use (n) and Stridor (n)
GI: Soft, Non Distended and Non Tender
Neurology: Awake, Alert and No Motor Deficits
Skin: Warm, Good Color, Cyanosis (n), Jaundice and Rash (n)
Labs/Micro/Reports
Lab Data
02/06/24 08:06
02/06/24 08:06
Microbiology
02/06/24 12:17 Blood/Venous Blood Culture - Preliminary
No Growth in 48 hours- Final report to follow
02/06/24 11:55 Blood/Venous Blood Culture - Preliminary
No Growth in 48 hours- Final report to follow
02/04/24 22:08 Sputum Respiratory Culture - Final
Klebsiella oxytoca
02/04/24 22:08 Sputum Gram Stain - Final
02/03/24 14:11 Blood/Venous Blood Culture - Final
Streptococcus species
Additional testing on request
02/03/24 14:11 Blood/Venous Gram Stain - Final
--- NOTE | 2024-02-09 12:00 | PTCARENOTE ---
12:[address] Hernandez and recommended to keep pt on telemetry due to recent stroke, continue to monitor pt closely.
--- NOTE | 2024-02-09 12:23 | PTOTSP ---
ST Acute Care Evaluation
Pt presents with speech and language skills that are within normal limits. Pt presents with cognitive linguistic skills that are deemed 'normal' for his age and education, per a brief screening tool (i.e., SLUMS = 25/30). If there are any concerns
regarding pt's cognitive abilities, it is recommended that pt receive a full cognitive linguistic battery of testing after d/c either in acute rehab or as an OP. As of right now, no skilled RN OTOLARYNGOLOGY services are deemed necessary.
--- NOTE | 2024-02-09 14:13 | W.PN.HOSP.TC ---
Today's Communication/Plan
-
dc planning
Assessment / Plan
Assessment / Plan
Physical Exam
-
General: on nasal O2, No Apparent Distress
HEENT: Normocephalic, Atraumatic and Oxygen
Respiratory: limited with rhonchi both sides, limited on right lower side
Cardiac: S1S2
GI: Soft, Nontender, Nondistended and Normal Bowel Sounds
Musculoskeletal: No Clubbing, No Cyanosis and No Edema
Neuro: Awake and Alert. He follows commands.
Psych: Calm, no agitation
pt is a 58 year old male
#Acute hypoxic respiratory failure with lactic acidosis-- SaO2 at 84 % on RA
Received High flow O2, then 6 liters. Weaned down to 4 liters with SaO2 at 92%
Hypoxia due to combination of atelectasias and underlying COPD, aspiration PNA in RLL, chronic smoker.
CT chest showed no PE, complete atelectasis of the right lower lobe and the majority of the right middle lobe. Hepatic cirrhosis.
WBC is normal now. Afebrile
-blood culture positive for strep species, reculture blood 02/05 no growth.
Sputum culture + for Klebsiella oxytoca
Added IS and acapella-
-Covid and flu negative
- Started on Nebulizer, steroid and Robitussin QID
d/w pulmonary, changing to oral prednisone
Anticipate he will need home O2
Pt reports that he is determined to quit alcohol and tobacco use.
Appreciate pulmonary help
# Positive blood culture on February 02, Streptococcus species, likely contaminant. Repeat blood cultures no growth.
Good clinical improvement
# Insomnia, patient was using Xanax and alcohol to help him sleep. He is having significant insomnia now. Will do a scheduled dose of Xanax at 9 PM
# Klebsiella PNA. Tan sensitive
c/w Zosyn while in hospital.Will need total 10-14 days on TX. Can change to oral Augmentin when ready.
Repeat chest x ray 02/06 showed significant improvement in the interval since the 02/03/2024 CT examination with mild residual subsegmental atelectasis at the right lung base
#Alcohol withdrawal with Alcohol use disorder--Mild
After talking with family. It seemed that patient went through the major part of withdrawal at home and presented later.
received Ativan in ED on 02/02 and one dose on 02/03 ONLY
He is fully oriented and no tremor or agitation noted
--cont MSAS protocol, thiamine, folate--stopped IVF--no further signs of DT.
Per family: pt was not 100% to them cognitively.
# Acute strokes
MRI brain showed 2 small areas of restricted diffusion, one posterior to the right lateral ventricle in the parietal lobe and one in the posterior left cerebellum, consistent with small acute nonhemorrhagic infarcts. Old infarct in the right frontal
lobe, with encephalomalacia. Mild diffuse volume loss and leukoaraiosis.
CT head showed mild age-related parenchymal atrophy. Stable chronic encephalomalacia in the anterior inferior right frontal lobe. No intra- or extra-axial mass, hemorrhage, or fluid collection. Mild subcortical, deep, and periventricular white
matter low-attenuation, compatible with changes of chronic small vessel ischemic disease. Postoperative changes of the frontal bones and previous endoscopic sinus surgery. Decreased paranasal sinus mucosal disease and nasal polyposis compared to the
previous CT. The mastoid air cells are clear.
MRA studies, no critical stenosis.
No neuro deficits
Will need rehab. As patient was completely independent and he stays by himself as his still works variable shifts
c/w aspirin. Due to ongoing liver cirrhosis/ thrombocytopenia, avoid combination of anti-platelets
Echo of heart Normal LVEF 55-60 %
HGB A1C 5.0
Appreciate neurology help
s/p PT/OT/Speech
#Hyponatremia/ mild
no confusion
#Hypokalemia-
is 3.6, c/w K supplement
# Not UTI
Culture is negative
# Alcoholic hepatitis, mild
No abd pain
Transaminitis secondary to alcohol use--improving
#History of alcoholic cirrhosis--Continue spironolactone
Added PPI
#Active smoker--Nicotine patch
#Essential hypertension--
Good control of BP. No headache or chest pain. Continue spironolactone
#Chronic right upper extremity pain--Continue tramadol
X ray of shoulder joint showed degenerative changes in glenohumeral and acromioclavicular joints
#code status--full code per pt.
#DVT prophylaxis�heparin
Total time spent to see the patient, examine the patient on the floor, review data and lab results, discuss treatment plan with patient, family, nursing staff around 57 minutes.
Anticipated Discharge: Within 24 hours
Subjective/Interval History
-
Date of Service: February 09, 2024
He complains of insomnia
No chest pain
less sob
Objective Data
-
Vital Signs:
Vital Signs
Temp Pulse Resp BP Pulse Ox
97.9 F 91 18 123/57 93
02/09/24 12:00 02/09/24 12:00 02/09/24 12:00 02/09/24 12:00 02/09/24 12:00
I&O
02/08/24 02/09/24 02/10/24
06:59 06:59 06:59
Intake Total 480 / 480 1360 / 1360
Output Total 500 / 500 500 / 500
Balance -20 / -20 860 / 860
--- NOTE | 2024-02-09 15:55 | CM ---
CM met with patients and daughter per family request. and daughter, Valeria, are hopeful for patient to discharge to Acute Rehab or SNF. SNF referrals sent to [facility]. Family is concerned that if patient discharges home
with VN services, he will fall and come back to the hospital. Per and daughter, they would like to become patients POA, however, have not started process. 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
going to refuse rehab and come home, they need to make arrangements at home for him. CM discussed that if patient would like to return home with VN services, they cannot force patient to enter rehab. CM discussed patient will likely need home oxygen
which they will set up prior to discharge. CM will continue to follow for discharge planning needs.
Plan; family would like acute vs SNF, patient would like to return home, watch updated PT/OT evals.
[2024-02-09] MEDS: XANAX 1 MG PO (21:36)
[2024-02-10] VITALS (9 sets, daily range): BP systolic 108–134; BP diastolic 53–77; PULSE 82–87; O2SAT 94
[2024-02-10] MEDS: ZOSYN 50 IV ×4 (04:07→21:20)
[2024-02-10] MEDS: DUONEB 3 ML INH ×4 (07:29→20:22)
[2024-02-10] MEDS: LIDOCAINE 4% PATCH 1 PATCH TOPICAL (09:03)
[2024-02-10] MEDS: ALDACTONE 25 MG PO (09:04)
[2024-02-10] MEDS: ROBITUSSIN 200 MG PO ×4 (09:04→21:21)
[2024-02-10] MEDS: DELTASONE 40 MG PO (09:04)
[2024-02-10] MEDS: PROTONIX 40 MG PO (09:04)
[2024-02-10] MEDS: FOLVITE 1 MG PO (09:04)
[2024-02-10] MEDS: LOW STRENGTH ASPIRIN 81 MG PO (09:04)
[2024-02-10] MEDS: HEPARIN 5000 UNITS SC ×2 (09:04→19:56)
[2024-02-10] MEDS: VIBRAMYCIN 100 MG PO ×2 (09:04→19:56)
[2024-02-10] MEDS: VITAMIN B1 100 MG PO ×2 (09:04→19:56)
[2024-02-10] MEDS: NICODERM TRANSDERMAL 14 MG TRANSDERM (09:05)
--- NOTE | 2024-02-10 09:48 | W.PN.PUL.V3 ---
Today's Communication / Plan
-
Continue to wean FiO2
Prednisone taper
Continue nebulizers
Finite course of antibiotics
Rehab evaluation
Assessment
-
58-year-old male smoker with alcohol use disorder with chronic right upper extremity pain presented with visual hallucinations, tremulous, as well as shortness of breath, productive cough and sore throat-pulmonary consulted for shortness of breath,
wheezing and oxygen requirements 02/07/24.
COPD with acute exacerbation
Right middle and right lower lobe atelectasis
Bronchitis
Encephalopathy
Multiple previous lacunar infarcts
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
Alcohol use disorder with withdrawal
Hypertensive urgency
Hyponatremia
Urinary tract infection
Transaminitis
Mild tjaknv-nnhvlvsdeq-seyljbgirp 11.0
Mild hyperglycemia-blood sugar 119
Hypocalcemia-7.0
Hypoalbuminemia
Conditions present prior to admission:
COPD.
Cigarette smoker.
Alcohol use disorder.
Cirrhosis.
Chronic right upper extremity pain.
Anxiety.
Hypertension.
Cannabis dependence.
Benzodiazepine dependence.
Thrombocytopenia.
Umbilical and testicular hernia.
Hepatitis C.
History of meningitis.
Spinal fluid leak repair 2001.
Teeth extraction
DNR/DNI
Plan
Pulmonary status has improved significantly
Wean oxygen
Assess discharge supplemental oxygen needs prior to discharge-suspect he will require some oxygen at time of discharge which hopefully can be weaned as an outpatient or in the rehab center
Mucolytic's and nebulizers continue
Prednisone 40 mg with slow taper
His last chest x-ray with improved aeration noted-suspect with mucous plug
Hold off on bronchoscopic inspection and significant improvement
Sputum culture-02/04/2024-Klebsiella
Blood cultures negative
Finite course of antibiotics
Smoking cessation counseling provided and will be ongoing
Nicotine patch continues
Alcohol withdrawal treatment protocol
Thiamine
Ativan as needed
Follow MSAS
Alcohol cessation counseling ongoing
Follow LFTs
Neurology following-repeat MRI/MRA in the next 3 years
Physical and Occupational Therapy following patient
DVT prophylaxis-on heparin
GI prophylaxis-on pantoprazole
Nutrition
Physical therapy
Recommend outpatient pulmonary evaluation-ongoing smoking cessation counseling, yearly low-dose lung cancer screening CT, PFTs, inhaler instruction/prescriptions, etc.
Dr. Ford reviewed with over the phone on 02/07/24 and again extensively at the bedside 02/09/24
Diagnostic data:
Chest x-ray 02/03/2024-NAD
Chest x-ray 02/07/24-significant improvement in interval since 02/03/2024
CT low-dose lung cancer screening 09/24/2021-no parenchymal nodules
CT chest low-dose lung cancer screening 05/18/20237124-[id number] 3 mm nodule right lower lobe unchanged compared to 2020, no evidence for new nodules, coronary calcifications noted
Chest CT with PE protocol 02/03/2024-no evidence for pulmonary embolism, complete atelectasis right lower lobe and majority of the right middle lobe, hepatic cirrhosis
Echocardiogram 12/06/2022-EF 60-65%, mild mitral regurgitation, PA systolic estimated 20-25
Nuclear stress test 11/19/2022-EF 50%, moderate risk study, EKG negative for ischemia, occasional PVCs
Subjective Data
-
Date of Service:
Date of Service: February 10, 2024
Chief Complaint: Pulmonary Follow Up and Dyspnea Follow Up
Subjective:
Feels better, less short of breath, no chest pain, cough, abdominal pain, dyspnea on exertion improving as well
Review of Systems
General: Other (Per HPI)
Objective Data
Data Reviewed
Vital Signs / I&O:
Vital Signs
Temp Pulse Resp BP Pulse Ox
97.7 F 74 18 134/68 94
02/10/24 07:44 02/10/24 07:44 02/10/24 07:44 02/10/24 07:44 02/10/24 07:44
Intake and Output
02/09/24 02/10/24 02/11/24
06:59 06:59 06:59
Intake Total 1360 / 1360 700 / 700
Output Total 500 / 500 650 / 650
Balance 860 / 860 50 / 50
SaO2: 94
Nasal Cannula flow liters per minute: 3
Physical Exam
General: Respiratory Distress (n) and Comfortable
HEENT: Normocephalic, Anicteric and Moist Mucous Membranes
Cardiovascular: Regular Rhythm
Respiratory: Wheeze (Much improved with minimal wheezing now), Crackles ( rare basilar), Rhonchi (Few expiratory), Non-Labored Respirations, Accessory Resp Muscle Use (n) and Stridor (n)
GI: Soft, Non Distended and Non Tender
Neurology: Awake, Alert and No Motor Deficits
Skin: Warm, Good Color, Cyanosis (n), Jaundice and Rash (n)
Labs/Micro/Reports
Lab Data
02/06/24 08:06
Microbiology
02/06/24 12:17 Blood/Venous Blood Culture - Preliminary
No Growth in 72 hours- Final report to follow
02/06/24 11:55 Blood/Venous Blood Culture - Preliminary
No Growth in 72 hours- Final report to follow
02/04/24 22:08 Sputum Respiratory Culture - Final
Klebsiella oxytoca
02/04/24 22:08 Sputum Gram Stain - Final
--- NOTE | 2024-02-10 10:00 | W.PN.HOSP.TC ---
Today's Communication/Plan
-
dc planning
Assessment / Plan
Assessment / Plan
Physical Exam
-
General: on nasal O2, No Apparent Distress
HEENT: Normocephalic, Atraumatic and Oxygen
Respiratory: limited with rhonchi both sides, limited on right lower side
Cardiac: S1S2
GI: Soft, Nontender, Nondistended and Normal Bowel Sounds
Musculoskeletal: No Clubbing, No Cyanosis and No Edema
Neuro: Awake and Alert. He follows commands.
Psych: Calm, no agitation
pt is a 58 year old male
#Acute hypoxic respiratory failure with lactic acidosis-- SaO2 at 84 % on RA
Received High flow O2, then 6 liters. Weaned down to 4 liters with SaO2 at 92%
Hypoxia due to combination of atelectasias and underlying COPD, aspiration PNA in RLL, chronic smoker.
CT chest showed no PE, complete atelectasis of the right lower lobe and the majority of the right middle lobe. Hepatic cirrhosis.
WBC is normal now. Afebrile
-blood culture positive for strep species, reculture blood 02/05 no growth.
Sputum culture + for Klebsiella oxytoca
Added IS and acapella-
-Covid and flu negative
- Started on Nebulizer, steroid and Robitussin QID
d/w pulmonary, changing to oral prednisone , will taper.
Anticipate he will need home O2
Pt reports that he is determined to quit alcohol and tobacco use.
Appreciate pulmonary help
# Positive blood culture on February 02, Streptococcus species, likely contaminant. Repeat blood cultures no growth.
Good clinical improvement
# Insomnia, patient was using Xanax and alcohol to help him sleep. He is having significant insomnia now. Will do a scheduled dose of Xanax at 9 PM
# Klebsiella PNA. Atn sensitive
c/w Zosyn while in hospital.Will need total 10-14 days on TX. Can change to oral Augmentin when ready. today is # day 7
Repeat chest x ray 02/06 showed significant improvement in the interval since the 02/03/2024 CT examination with mild residual subsegmental atelectasis at the right lung base
#Alcohol withdrawal with Alcohol use disorder--Mild
After talking with family. It seemed that patient went through the major part of withdrawal at home and presented later.
received Ativan in ED on 02/02 and one dose on 02/03 ONLY
He is fully oriented and no tremor or agitation noted
--cont MSAS protocol, thiamine, folate--stopped IVF--no further signs of DT.
Per family: pt was not 100% to them cognitively.
# Acute strokes
MRI brain showed 2 small areas of restricted diffusion, one posterior to the right lateral ventricle in the parietal lobe and one in the posterior left cerebellum, consistent with small acute nonhemorrhagic infarcts. Old infarct in the right frontal
lobe, with encephalomalacia. Mild diffuse volume loss and leukoaraiosis.
CT head showed mild age-related parenchymal atrophy. Stable chronic encephalomalacia in the anterior inferior right frontal lobe. No intra- or extra-axial mass, hemorrhage, or fluid collection. Mild subcortical, deep, and periventricular white
matter low-attenuation, compatible with changes of chronic small vessel ischemic disease. Postoperative changes of the frontal bones and previous endoscopic sinus surgery. Decreased paranasal sinus mucosal disease and nasal polyposis compared to the
previous CT. The mastoid air cells are clear.
MRA studies, no critical stenosis.
No neuro deficits
Will need rehab. As patient was completely independent and he stays by himself as his still works variable shifts
c/w aspirin. Due to ongoing liver cirrhosis/ thrombocytopenia, avoid combination of anti-platelets
Echo of heart Normal LVEF 55-60 %
HGB A1C 5.0
Appreciate neurology help
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
s/p PT/OT/Speech
#Hyponatremia/ mild
recheck BMP
allow more liquids in diet
no confusion
#Hypokalemia-
is 3.6, c/w K supplement
# Not UTI
Culture is negative
# Alcoholic hepatitis, mild
No abd pain
Transaminitis secondary to alcohol use--improving
#History of alcoholic cirrhosis--Continue spironolactone
Added PPI
#Active smoker--Nicotine patch
#Essential hypertension--
Good control of BP. No headache or chest pain. Continue spironolactone
#Chronic right upper extremity pain--Continue tramadol
X ray of shoulder joint showed degenerative changes in glenohumeral and acromioclavicular joints
#code status--full code per pt.
#DVT prophylaxis�heparin
Total time spent to see the patient, examine the patient on the floor, review data and lab results, discuss treatment plan with patient, family, nursing staff around 57 minutes.
Anticipated Discharge: Within 24 hours
Subjective/Interval History
-
Date of Service: February 10, 2024
He slept better with Xanax
No chest pain
would like more liquids
Objective Data
-
Labs:
Laboratory Results
02/10/24
08:00
Sodium Pending
Potassium Pending
Chloride Pending
Carbon Dioxide Pending
BUN Pending
Creatinine Pending
Glucose Pending
Calcium Pending
Total Bilirubin Pending
AST Pending
ALT Pending
Alkaline Phosphatase Pending
Vital Signs:
Vital Signs
Temp Pulse Resp BP Pulse Ox
97.7 F 74 18 134/68 94
02/10/24 07:44 02/10/24 07:44 02/10/24 07:44 02/10/24 07:44 02/10/24 09:48
I&O
02/09/24 02/10/24 02/11/24
06:59 06:59 06:59
Intake Total 1360 / 1360 700 / 700
Output Total 500 / 500 650 / 650
Balance 860 / 860 50 / 50
--- NOTE | 2024-02-10 11:25 | CM ---
PT recommending Acute Rehab; Attending notified and acknowledged [place] [facility]; and will order PM&R consult
[2024-02-10 12:05] LABS: ALT (SGPT) 51 U/L (0-50); AST (SGOT) 61 U/L (17-59); Albumin 2.5 g/dl (3.5-5.0); Alkaline Phosphatase 265 U/L (38-126); Blood Urea Nitrogen 15 mg/dl (9-20); Calcium 8.3 mg/dl (8.4-10.2); Carbon Dioxide 34 mmol/L (22-30); Chloride 95 mmol/L (98-107); Estimated Creatinine Clearance > 125 ml/min; Glucose 440 mg/dl (70-99); Potassium 3.8 mmol/L (3.5-5.1); Sodium 131 mmol/L (135-145); Total Bilirubin 3.1 mg/dl (0.2-1.3); Total Protein 4.8 g/dl (6.3-8.2); eGFR > 60.00
--- NOTE | 2024-02-10 16:37 | CON.MD ---
Documented by User: Ayse Stauffer PA-C 02/10/24 18:16
Consultation - Medical
-
Referring Provider: Clementina Hernandez
Chief Complaint: CVA
History of Present Illness: Patient is a 58-year-old male with PMH of (chronic right and right shoulder pain,meningitis 1999, CSF leak, hypertension, alcohol abuse, alcoholic cirrhosis, hepatitis C, thrombocytopenia, anxiety, COPD, benzodiazepine
dependence, umbilical and testicular hernia) admitted to [facility] with change in mental status, confusion, hallucinations, and agitation after abruptly stopping drinking etoh and smoking 5 days prior to admission. Brain MRI revealed 2
small areas of restricted diffusion, 1 posterior to the right lateral ventricle in the parietal lobe and 1 in the posterior left cerebellum, consistent with small acute nonhemorrhagic infarcts. Also noted to have productive cough and a fever.
Chest CT positive for right lower lobe pneumonia on IV antibiotics.
MRI Brain
There are 2 small areas of restricted diffusion, one posterior to the right lateral ventricle in the parietal lobe and one in the posterior left cerebellum, consistent with small acute nonhemorrhagic infarcts.
Old infarct in the right frontal lobe, with encephalomalacia.
Mild diffuse volume loss and leukoaraiosis.
Chronic sinus disease. Mastoiditis.
Neck MRA
Focal tortuosity of the proximal right subclavian artery. At the level tortuosity, there appears to be focal narrowing, probably at least 50% diameter reduction. As warranted, consideration for cerebrovascular ultrasound evaluation with attention to
the right subclavian artery.
No significant narrowing of the common carotid arteries, carotid bulbs, or proximal internal carotid arteries bilaterally.
No significant narrowing of the anterior cerebral or middle cerebral arteries bilaterally.
On concurrent unenhanced MR angiography of the [place] of [place], 2 mm aneurysm suggested arising from the right side of the anterior to indicating artery, better seen on the unenhanced examination.
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
Head MRA
Diffuse moderate to severe caliber thinning of the P3 and P4 for portions of the right posterior cerebral artery. Moderate-caliber thickening of the distal P3 and P4 portions of the left posterior cerebral artery.
No significant narrowing of the anterior cerebral arteries or middle cerebral arteries. 2 mm focal protrusion arising from the right side of the anterior communicating artery, which likely represents a small aneurysm.
Chest Xray - 02/06
There has been significant improvement in the interval since the 02/03/2024 CT examination with mild residual subsegmental atelectasis at the right lung base
xray of right shoulder
Mild degenerative change of the glenohumeral joint.
Moderate degenerative change of the right acromioclavicular joint.
Past Medical History: Meningitis 1998, CSF leak, hypertension, alcohol abuse, alcoholic cirrhosis, hepatitis C, thrombocytopenia, anxiety, COPD, benzodiazepine dependence, umbilical and testicular hernia
Procedure History: CSF leak repair 2001, tooth extraction
Family History: Non contributory
Social History:
Functional Level Premorbidly: Independent with all activities
Functional Level Currently: 12 feet x 1, 30 feet x 2, 12 feet x 1 with standing rest. Breaks without a device and min assist.. Slightly unsteady requiring assist for balance however no overt loss of balance, did note desaturation to 86% on room
air. Transfer supervision, sit to stand transfer supervision, stand to sit,
Tobacco: Denies
Alcohol: etoh abuse, benzo dependent
Drug use:none
Lives with: Spouse
24-hour assistance available:
Number of floors: multilevel
# steps to enter: 2
# steps to second floor: FF
Potential First floor set up:
Driving: yes
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
�
Allergies:
Allergy/AdvReac Type Severity Reaction Status Date / Time
No Known Allergies Allergy Verified 10/11/22 09:33
Review of Systems:
Constitutional: (x) Normal _
Eye: (x) Normal _
Ear/Nose/Throat: (x) Normal _
Respiratory: (x) pneumonia
Cardiovascular: (x) Normal _
Gastrointestinal: (x) Normal _
Genitourinary: (x) Normal _
Musculoskeletal: (x) chronic right knee and shoulder pain
Integumentary: (x) Normal _
Neurologic: (x) CVA
Psychiatric: (x) Normal _
Endocrine: (x) Normal _
Hematologic/Lymphatic: (x) Normal _
Allergic/Immunologic: (x) Normal _
Medications:
Active Current Visit Medication List
Category Date Time Status
Acetaminophen [Tylenol] Med 02/03/24 17:07 Active
650 mg PO Q6HPRN PRN
Alprazolam [Xanax] Med 02/09/24 22:00 Active
1 mg PO HS
Aspirin Chewable [Low Strength Aspirin] Med 02/07/24 13:00 Active
81 mg PO DAILY
Doxycycline [Vibramycin] Med 02/08/24 11:00 Active
100 mg PO Q12
FOLic ACID [Folvite] Med 02/04/24 08:00 Active
1 mg PO DAILY
Flush (0.9% Sodium Chloride) [Flush (Nss)] Med 02/03/24 19:00 Active
See Dose Instructions IV PER PROTOCOL
Guaifenesin Solution [Robitussin] Med 02/07/24 13:00 Active
200 mg PO QID
Heparin Med 02/03/24 20:00 Active
5,000 units SC Q12
HydrALAZINE [Apresoline] Med 02/03/24 16:50 Active
5 mg IV Q6HPRN PRN
Ipratropium/Albuterol Sulfate [Duoneb] Med 02/07/24 09:40 Active
3 ml INH R Q4HPRN PRN
Ipratropium/Albuterol Sulfate [Duoneb] Med 02/07/24 12:00 Active
3 ml INH R QID
Lidocaine [Lidocaine 4% Patch] Med 02/07/24 13:30 Active
1 patch TOPICAL DAILY
Nicotine [Nicoderm Transdermal] Med 02/03/24 18:33 Active
14 mg TRANSDERM DAILY
Pantoprazole [Protonix] Med 02/07/24 08:00 Active
40 mg PO DAILY
Piperacillin/Tazo 3.375 Gram [Zosyn] Med 02/03/24 22:00 Active
3.375 gram in 50 ml IV Q6H
Prednisone [Deltasone] Med 02/10/24 08:00 Active
40 mg PO DAILY
Promethazine [Phenergan] 12.5 mg Med 02/03/24 18:49 Active
0.9% Sodium Chloride 50 ml [Nss] 50 ml
IV Q4HPRN
Remove Patch [Remove Lidocaine Patch] Med 02/07/24 20:00 Active
See Dose Instructions REMOVE DAILY@1999
Spironolactone [Aldactone] Med 02/04/24 08:00 Active
25 mg PO DAILY
Thiamine HCl [Vitamin B1] Med 02/06/24 20:00 Active
100 mg PO BID
Tramadol HCl [Ultram] Med 02/03/24 18:33 Active
100 mg PO Q8HPRN PRN
Vitals:
Temp Pulse Resp BP Pulse Ox
98.0 F 80 16 130/61 93
02/10/24 15:00 02/10/24 15:55 02/10/24 15:55 02/10/24 15:00 02/10/24 15:55
Height 5 ft 10 in
Actual Weight 80.6 kg
Body Mass Index (BMI) 25.5
Physical Exam:
General Appearance/Observation: Well-developed, well-nourished individual in no apparent distress.
Pain/Comfort Assessment: Denies at the moment
Mood/Affect: Appropriate, pleasant
Integumentary/Operative Site:
�� Pressure Ulcer Evaluation: absent over heels.
�
�� Other Type of Wound: absent
��
Eyes: Conjunctiva/Lids: normal ��� Pupils: pupils equal round and reactive to light and Accommodation
Ears/Nose/Throat: oral mucosa moist,� throat clear.������������ Lips/Teeth/Gums: normal
Neck: No muscle spasm or tenderness
Cardiovascular: Heart: regular, no murmur
Pulses: dorsalis pedis 2+ bilaterally
Respiratory: Respiratory Effort/Chest Expansion: normal ������� Auscultation: Clear to auscultation bilaterally with diminished bs on right lower lobe with mild coarse sounds
Gastrointestinal: abdomen not tender, no distension, normal abdominal bowel sounds
Genitourinary: No Stevens
Extremities: Edema: None Cyanosis: None Trophic changes: None
Neurology Exam:
Orientation: Alert, Oriented to self, Time, Place
Memory: Intact for immediate medical concerns
Higher cortical function
Repetition: Intact
Comprehension: Intact
Two step command: Intact
Naming: Intact
Cranial Nerves:
�� CNII: Pupillary light reflex: Intact��� Visual Field: some impairment on the left
�� CN III, IV, : Extraocular muscles: Intact
�� CN V: Facial Sensation at Forehead: Intact, Maxilla: Intact, Mandible: Intact
�� CN VII: Facial movement: Symmetric
�� CN VIII: Hearing: Normal
�� CN IX/X: Speech & swallow: Normal, Position of Uvula: Midline
�� CN XI: Shoulder shrug: Symmetric
�� CN XII: Tongue protrusion: minimally deviated to the right
Sensory:
�� Light touch: Intact in bilateral upper and lower extremities
��
Reflexes:
�� Biceps: 4+ bilaterally
�� Brachioradialis: 4+ bilaterally
�� Triceps: 4+ bilaterally
�� Patellar: 4+ bilaterally
�� Achilles: absent+ bilaterally
�� Babinski: Down going bilaterally
�� Clonus: None
�� Tequila: Negative bilaterally
Cerebellar: Dysmetria/Ataxia: None, fine tremors on the right upper extremity
Musculoskeletal:
Motor: (Manual muscle scale 0-5)
Muscle SA EF WE EE FF FA HF KE DF EHL PF
Right� 5 5 5 5 5 5 5 5 5 4 5
Left 5 5 5 5 5 5 5 5 5 4 5
Tone: Normal in all extremities
Range of Motion: Passively within normal limits in all extremities
Lab Results
Labs
WBC 6.2 10^3/uL (4.8-10.8) 02/06/24 08:06
RBC 3.57 10^6/uL (4.70-6.10) L 02/06/24 08:06
Hgb 11.7 g/dL (13.0-18.0) L 02/06/24 08:06
Hct 33.2 % (39.0-52.0) L 02/06/24 08:06
MCV 93.0 fL (80.0-94.0) 02/06/24 08:06
MCH 32.8 pg (27.0-31.0) H 02/06/24 08:06
MCHC 35.2 g/dL (33.0-37.0) 02/06/24 08:06
RDW 14.2 % (11.5-14.5) 02/06/24 08:06
Plt Count 61 10^3/uL (130-400) L 02/06/24 08:06
MPV 12.0 fL (7.4-10.4) H 02/06/24 08:06
Abs Immat Gran (auto) 0.1 10^3/uL (0-0.05) H 02/04/24 04:55
Absolute Neuts (auto) 6.0 10^3/uL (1.4-6.5) 02/04/24 04:55
Absolute Lymphs (auto) 0.9 10^3/uL (1.2-3.4) L 02/04/24 04:55
Absolute Monos (auto) 0.5 10^3/uL (0.1-0.6) 02/04/24 04:55
Absolute Eos (auto) 0.0 10^3/uL (0-0.7) 02/04/24 04:55
Absolute Basos (auto) 0.0 10^3/uL (0-0.2) 02/04/24 04:55
Immature Gran % 1.1 % (0-0.5) H 02/04/24 04:55
Neutrophils % 80.0 % (42.2-75.2) H 02/04/24 04:55
Lymphocytes % 11.6 % (20.5-51.1) L 02/04/24 04:55
Monocytes % 6.7 % (1.7-9.3) 02/04/24 04:55
Eosinophils % 0.5 % (0-6) 02/04/24 04:55
Basophils % 0.1 % (0-2) 02/04/24 04:55
Nucleated RBC % 0 % (-) 02/04/24 04:55
PT 20.2 Sec (11.4-14.6) H 02/03/24 14:11
INR 1.74 02/03/24 14:11
APTT 34.2 Sec (23.4-35.0) 02/03/24 14:11
Sodium 131 mmol/L (135-145) L 02/10/24 11:25
Potassium 3.8 mmol/L (3.5-5.1) 02/10/24 11:25
Chloride 95 mmol/L (98-107) L 02/10/24 11:25
Carbon Dioxide 34 mmol/L (22-30) H 02/10/24 11:25
BUN 15 mg/dl (9-20) 02/10/24 11:25
Creatinine 0.6 mg/dL (0.7-1.3) L 02/10/24 11:25
Estimated Creat Clear > 125 ml/min 02/10/24 11:25
eGFR > 60.00 02/10/24 11:25
Glucose 440 mg/dl (70-99) H 02/10/24 11:25
Hemoglobin A1c 5.0 % (4.0-5.6) 02/07/24 15:05
Lactic Acid 1.2 mmol/L (0.7-2.0) 02/03/24 18:18
Calcium 8.3 mg/dl (8.4-10.2) L 02/10/24 11:25
Phosphorus Cancelled 02/03/24 18:18
Magnesium 1.9 mg/dl (1.6-2.3) 02/06/24 08:06
Ferritin 529.0 ng/ml (17.9-464.0) H 02/07/24 15:05
Total Bilirubin 3.1 mg/dl (0.2-1.3) H 02/10/24 11:25
AST 61 U/L (17-59) H 02/10/24 11:25
ALT 51 U/L (0-50) H 02/10/24 11:25
Alkaline Phosphatase 265 U/L (38-126) H 02/10/24 11:25
Ammonia 16 umol/L (9-30) 02/03/24 14:11
Total Protein 4.8 g/dl (6.3-8.2) L 02/10/24 11:25
Albumin 2.5 g/dl (3.5-5.0) L 02/10/24 11:25
Triglycerides 89 mg/dl (10-149) 02/07/24 15:05
Total Cholesterol 80 mg/dl (50-199) 02/07/24 15:05
LDL Cholesterol, Calc 45 mg/dl 02/07/24 15:05
VLDL Cholesterol, Calc 17 mg/dl (0-30) 02/07/24 15:05
HDL Cholesterol 18 mg/dl 02/07/24 15:05
Vitamin B12 > 1000 pg/ml (239-931) H 02/07/24 15:05
Folate 11.5 ng/ml (2.76-20) 02/07/24 15:05
TSH (Reflex) 2.25 uIU/ml (0.47-4.68) 02/07/24 15:05
Urine Color [place] 02/03/24 14:14
Urine Clarity Clear (Clear) 02/03/24 14:14
Urine pH 6.0 (5.0-9.0) 02/03/24 14:14
Ur Specific [place] 1.015 (<1.030) 02/03/24 14:14
Urine Ketones Trace (Negative) A 02/03/24 14:14
Ur Occult Blood Reflex 2+ (Negative) A 02/03/24 14:14
Urine Nitrite (Reflex) Negative (Negative) 02/03/24 14:14
Urine Bilirubin 2+ (Negative) A 02/03/24 14:14
Urine Urobilinogen 4+ (Neg - 1+) A 02/03/24 14:14
Leukocyte Esterase Rfl 1+ (Negative) A 02/03/24 14:14
Urine RBC 3-6 /HPF (0-2) A 02/03/24 14:14
Urine WBC (Reflex) 11-15 /HPF (0-5) A 02/03/24 14:14
Ur Squamous Epith Cells 0-2 /LPF (Few) 02/03/24 14:14
Urine Bacteria (Reflex) Few (Negative) A 02/03/24 14:14
Urine Osmolality 565 mOsm/kg (300-900) 02/03/24 22:22
Urine Sodium < 5 mmol/L (30-90) L 02/03/24 22:22
Urine Glucose Negative (Negative) 02/03/24 14:14
Urine Albumin (Reflex) Trace (Neg - Trace) 02/03/24 14:14
Alcohol, Quantitative None detected mg/dl 02/03/24 14:11
SARS-CoV-2 Antigen Negative (Negative) 02/03/24 18:00
�
Diagnostic Results: as per HPI
Assessment Patient is a 58-year-old male with PMH of (chronic right and right shoulder pain,meningitis 1998, CSF leak, hypertension, alcohol abuse, alcoholic cirrhosis, hepatitis C, thrombocytopenia, anxiety, COPD, benzodiazepine dependence,
umbilical and testicular hernia) admitted to [facility] with change in mental status, confusion, hallucinations, and agitation after abruptly stopping drinking etoh and smoking 5 days prior to admission. Brain MRI revealed 2 small areas of
restricted diffusion, 1 posterior to the right lateral ventricle in the parietal lobe and 1 in the posterior left cerebellum, consistent with small acute nonhemorrhagic infarcts. Positive for right lower lobe pneumonia on IV antibiotics.
Plan
PT/OT to increase independence with ADLs, improve balance, coordination, endurance, strength, mobility, community reintegration, decreased burden of care on others and family education.
CVA: Per neurology continue aspirin without plavix, lifelong, not on statin due to low total LDL and cholesterol (SBP less than 180 and diastolic less than 100 to participate with therapy for ischemic stroke). Continue to monitor neurologic status.
Pneumonia:-blood culture positive for strep species, reculture blood 02/05 no growth. Sputum culture + for Klebsiella oxytoca.Covid and flu negative. On Nebulizer, steroids and Robitussin QID. Zosyn IV q 6 hours. recent xray with improvement
Acute hypoxic respiratory failure with lactic acidosis-- SaO2 at 84 % on RA. Received High flow O2, then 6 liters. Weaned down to 4 liters with SaO2 at 92%. Hypoxia due to combination of atelectasias and underlying COPD, aspiration PNA in RLL,
chronic smoker. On prednisone 40mg qd. Albuterol inh. Patient currenty sitting in chair on room air without oxygen unlabored and NAD.
HTN: Hydralazine prn IV and Spironolactone. monitor closely
HLD: not on statin due to low LDL and total cholesterol
Anemia: Likely multifactorial.� Continue to monitor.
Thrombocytopenia: (61 as of 02/05). Repeat labs.Continue to monitor. With platelets less than 50,000 recommend keeping therapies to bedside. If platelets less than 20,000 will use further caution with activity levels and hold therapy for platelets
less than 10,000.
Psych: Psychology consult.� Monitor mood, adjust medications as needed.
Skin: monitor for pressure sores/rashes/lesions.
Pain/right shoulder: acetaminophen, Lidoderm patch, Tramadol
Bowel: Colace and Senna, PRN bisacodyl. Last BM yesterday
Bladder: Time void, PVRs, PRN straight cath.
Alcohol Abuse: Alcohol cessation education, offering of outpatient alcohol abuse program. On Thiamine, Folate
Tobacco Abuse: Smoking cessation counseling. Need to find out why smoking whether it is nicotine withdrawal, habit, or oral fixation. Nicotine Patch
Insomnia: was using etoh and benzo for sleep. started on Xanax 1mg HS
GI Prophylaxis: Pantoprazole
DVT Prophylaxis: Heparin 5000 units SC
Pulmonary: Incentive spirometry
Safety: Continue to reinforce assistance with all transfers.
Code Status:� Full code
Dispo (date/plan/equipment needs): Home with family care.� Social history reviewed.
Functional and Medical Goals: Modified Independent with ADL�s, ambulation, transfers
Summary of recommendations:
- Discharge Destination: Patient with acute stroke and pneumonia on wean down oxygen would benefit from acute inpatient rehabilitation based on his current level of 12 feet x 1, 30 feet x 2, 12 feet x 1 with standing rest. Breaks without a device
and min assist.. Slightly unsteady requiring assist for balance however no overt loss of balance, did note desaturation to 86% on room air. Transfer supervision, sit to stand transfer supervision, stand to sit for PT/OT to increase independence
with ADLs, improve balance, coordination, endurance, strength, mobility, community reintegration, decreased burden of care on others and family education once medically stable.
CVA: Per neurology continue aspirin without plavix, lifelong, not on statin due to low total LDL and cholesterol and blood pressure control (SBP less than 180 and diastolic less than 100 to participate with therapy for ischemic stroke). Continue to
monitor neurologic status.
Pneumonia:-blood culture positive for strep species, reculture blood 02/05 no growth. Sputum culture + for Klebsiella oxytoca.Covid and flu negative. On Nebulizer, steroids and Robitussin QID. Zosyn IV q 6 hours. recent xray with improvement.
Doxycycline 100mg q 12.
Acute hypoxic respiratory failure with lactic acidosis-- SaO2 at 84 % on RA. Received High flow O2, then 6 liters. Weaned down to 4 liters with SaO2 at 92%. Hypoxia due to combination of atelectasias and underlying COPD, aspiration PNA in RLL,
chronic smoker. On prednisone 40mg qd. Albuterol inh. Patient currenty sitting in chair on room air without oxygen unlabored and NAD.
HTN: Hydralazine prn IV and Spironolactone. continue medications, monitor closely. IV med would need to be converted to PO prior to transfer.
HLD: Not on a statin due to low LDL and total cholesterol
Anemia: Likely multifactorial.� Continue to monitor.
Thrombocytopenia: (61 as of 02/05). Repeat labs.Continue to monitor. With platelets less than 50,000 recommend keeping therapies to bedside. If platelets less than 20,000 will use further caution with activity levels and hold therapy for platelets
less than 10,000.
Bowel: Colace and Senna, PRN bisacodyl. Last BM yesterday
Bladder: Time void, PVRs, PRN straight cath.
Alcohol Abuse: Alcohol cessation education, offering of outpatient alcohol abuse program. On Thiamine, Folate
Tobacco Abuse: Smoking cessation counseling. Need to find out why smoking whether it is nicotine withdrawal, habit, or oral fixation. Nicotine Patch
Insomnia: was using etoh and benzo for sleep. started on Xanax 1mg HS
GI Prophylaxis: Pantoprazole
DVT Prophylaxis: Heparin 5000 units SC
Pulmonary: Incentive spirometry
Thank you for allowing me to care for your patient. Please contact me with any questions or concerns.

Documented by User: Roger Masterson MD 02/10/24 19:15
Consultation - Medical
-
Referring Provider: Clementina Hernandez
Chief Complaint: CVA
History of Present Illness: Patient is a 58-year-old male with PMH of (chronic right and right shoulder pain,meningitis 1999, CSF leak, hypertension, alcohol abuse, alcoholic cirrhosis, hepatitis C, thrombocytopenia, anxiety, COPD, benzodiazepine
dependence, umbilical and testicular hernia) admitted to [facility] with change in mental status, confusion, hallucinations, and agitation after abruptly stopping drinking etoh and smoking 5 days prior to admission. Brain MRI revealed 2
small areas of restricted diffusion, 1 posterior to the right lateral ventricle in the parietal lobe and 1 in the posterior left cerebellum, consistent with small acute nonhemorrhagic infarcts. Also noted to have productive cough and a fever.
Chest CT positive for right lower lobe pneumonia on IV antibiotics.
Past Medical History: Meningitis 1998, CSF leak, hypertension, alcohol abuse, alcoholic cirrhosis, hepatitis C, thrombocytopenia, anxiety, COPD, benzodiazepine dependence, umbilical and testicular hernia
Procedure History: CSF leak repair 2001, tooth extraction
Family History: Non contributory
Social History:
Functional Level Premorbidly: Independent with all activities
Functional Level Currently: 12 feet x 1, 30 feet x 2, 12 feet x 1 with standing rest. Breaks without a device and min assist.. Slightly unsteady requiring assist for balance however no overt loss of balance, did note desaturation to 86% on room
air. Transfer supervision, sit to stand transfer supervision, stand to sit,
Tobacco: Denies
Alcohol: etoh abuse, benzo dependent
Drug use:none
Lives with: Spouse
24-hour assistance available: No
Number of floors: multilevel
# steps to enter: 2
# steps to second floor: FF
Potential First floor set up:
Driving: yes
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
Allergies:
Allergy/AdvReac Type Severity Reaction Status Date / Time
No Known Allergies Allergy Verified 10/11/22 09:33
Review of Systems:
Constitutional: (x) abNormal _fatigue
Eye: (x) Normal _
Ear/Nose/Throat: (x) Normal _
Respiratory: (x) pneumonia
Cardiovascular: (x) Normal _
Gastrointestinal: (x) Normal _
Genitourinary: (x) Normal _
Musculoskeletal: (x) chronic right knee and shoulder pain
Integumentary: (x) Normal _
Neurologic: (x) CVA with difficulty walking. Denies any numbness or tingling. Denies any weakness.
Psychiatric: (x) Normal _
Endocrine: (x) Normal _
Hematologic/Lymphatic: (x) Normal _
Allergic/Immunologic: (x) Normal _
Medications:
Active Current Visit Medication List
Category Date Time Status
Acetaminophen [Tylenol] Med 02/03/24 17:07 Active
650 mg PO Q6HPRN PRN
Alprazolam [Xanax] Med 02/09/24 22:00 Active
1 mg PO HS
Aspirin Chewable [Low Strength Aspirin] Med 02/07/24 13:00 Active
81 mg PO DAILY
Doxycycline [Vibramycin] Med 02/08/24 11:00 Active
100 mg PO Q12
FOLic ACID [Folvite] Med 02/04/24 08:00 Active
1 mg PO DAILY
Flush (0.9% Sodium Chloride) [Flush (Nss)] Med 02/03/24 19:00 Active
See Dose Instructions IV PER PROTOCOL
Guaifenesin Solution [Robitussin] Med 02/07/24 13:00 Active
200 mg PO QID
Heparin Med 02/03/24 20:00 Active
5,000 units SC Q12
HydrALAZINE [Apresoline] Med 02/03/24 16:50 Active
5 mg IV Q6HPRN PRN
Ipratropium/Albuterol Sulfate [Duoneb] Med 02/07/24 09:40 Active
3 ml INH R Q4HPRN PRN
Ipratropium/Albuterol Sulfate [Duoneb] Med 02/07/24 12:00 Active
3 ml INH R QID
Lidocaine [Lidocaine 4% Patch] Med 02/07/24 13:30 Active
1 patch TOPICAL DAILY
Nicotine [Nicoderm Transdermal] Med 02/03/24 18:33 Active
14 mg TRANSDERM DAILY
Pantoprazole [Protonix] Med 02/07/24 08:00 Active
40 mg PO DAILY
Piperacillin/Tazo 3.375 Gram [Zosyn] Med 02/03/24 22:00 Active
3.375 gram in 50 ml IV Q6H
Prednisone [Deltasone] Med 02/10/24 08:00 Active
40 mg PO DAILY
Promethazine [Phenergan] 12.5 mg Med 02/03/24 18:49 Active
0.9% Sodium Chloride 50 ml [Nss] 50 ml
IV Q4HPRN
Remove Patch [Remove Lidocaine Patch] Med 02/07/24 20:00 Active
See Dose Instructions REMOVE DAILY@1999
Spironolactone [Aldactone] Med 02/04/24 08:00 Active
25 mg PO DAILY
Thiamine HCl [Vitamin B1] Med 02/06/24 20:00 Active
100 mg PO BID
Tramadol HCl [Ultram] Med 02/03/24 18:33 Active
100 mg PO Q8HPRN PRN
Vitals:
Temp Pulse Resp BP Pulse Ox
98.0 F 80 16 130/61 93
02/10/24 15:00 02/10/24 15:55 02/10/24 15:55 02/10/24 15:00 02/10/24 15:55
Height 5 ft 10 in
Actual Weight 80.6 kg
Body Mass Index (BMI) 25.5
Physical Exam:
General Appearance/Observation: Well-developed, well-nourished male in no apparent distress.
Pain/Comfort Assessment: Denies at the moment
Mood/Affect: Appropriate, pleasant
Integumentary/Operative Site:
�� Pressure Ulcer Evaluation: absent over heels.��
Eyes: Conjunctiva/Lids: normal ��� Pupils: pupils equal round and reactive to light and Accommodation
Ears/Nose/Throat: oral mucosa moist,� throat clear.������������ Lips/Teeth/Gums: normal
Cardiovascular: Heart: regular, no murmur
Pulses: dorsalis pedis 2+ bilaterally
Respiratory: Respiratory Effort/Chest Expansion: normal ������� Auscultation: Clear to auscultation bilaterally with diminished bs on right lower lobe with mild coarse sounds
Gastrointestinal: abdomen not tender, no distension, normal abdominal bowel sounds
Genitourinary: No Stevens
Extremities: Edema: None Cyanosis: None Trophic changes: None
Neurology Exam:
Orientation: Alert, Oriented to self, Time, Place
Memory: Intact for immediate medical concerns
Higher cortical function
Repetition: Intact
Comprehension: Intact
Two step command: Intact
Naming: Intact
Cranial Nerves:
�� CNII: Pupillary light reflex: Intact��� Visual Field: Intact
�� CN III, IV, : Extraocular muscles: Intact
�� CN V: Facial Sensation at Forehead: Intact, Maxilla: Intact, Mandible: Intact
�� CN VII: Facial movement: Symmetric
�� CN VIII: Hearing: Normal
�� CN IX/X: Speech & swallow: Normal, Position of Uvula: Midline
�� CN XI: Shoulder shrug: Symmetric
�� CN XII: Tongue protrusion: minimally deviated to the right
Sensory:
�� Light touch: Intact in bilateral upper and lower extremities
��
Reflexes:
�� Biceps: 3+ bilaterally
�� Brachioradialis: 3+ bilaterally
�� Triceps: 3+ bilaterally
�� Patellar: 3+ bilaterally
�� Achilles: absent bilaterally
�� Babinski: Down going bilaterally
�� Clonus: None
�� Tequila: Negative bilaterally
Cerebellar: Dysmetria/Ataxia: None
Musculoskeletal: Motor: (Manual muscle scale 0-5)
Muscle SA EF WE EE FF FA HF KE DF EHL PF
Right� 5 5 5 5 5 5 5 5 5 4 5
Left 5 5 5 5 5 5 5 5 5 4 5
Tone: Normal in all extremities
Range of Motion: Passively within normal limits in all extremities
Lab Results
Labs
WBC 6.2 10^3/uL (4.8-10.8) 02/06/24 08:06
RBC 3.57 10^6/uL (4.70-6.10) L 02/06/24 08:06
Hgb 11.7 g/dL (13.0-18.0) L 02/06/24 08:06
Hct 33.2 % (39.0-52.0) L 02/06/24 08:06
MCV 93.0 fL (80.0-94.0) 02/06/24 08:06
MCH 32.8 pg (27.0-31.0) H 02/06/24 08:06
MCHC 35.2 g/dL (33.0-37.0) 02/06/24 08:06
RDW 14.2 % (11.5-14.5) 02/06/24 08:06
Plt Count 61 10^3/uL (130-400) L 02/06/24 08:06
MPV 12.0 fL (7.4-10.4) H 02/06/24 08:06
Abs Immat Gran (auto) 0.1 10^3/uL (0-0.05) H 02/04/24 04:55
Absolute Neuts (auto) 6.0 10^3/uL (1.4-6.5) 02/04/24 04:55
Absolute Lymphs (auto) 0.9 10^3/uL (1.2-3.4) L 02/04/24 04:55
Absolute Monos (auto) 0.5 10^3/uL (0.1-0.6) 02/04/24 04:55
Absolute Eos (auto) 0.0 10^3/uL (0-0.7) 02/04/24 04:55
Absolute Basos (auto) 0.0 10^3/uL (0-0.2) 02/04/24 04:55
Immature Gran % 1.1 % (0-0.5) H 02/04/24 04:55
Neutrophils % 80.0 % (42.2-75.2) H 02/04/24 04:55
Lymphocytes % 11.6 % (20.5-51.1) L 02/04/24 04:55
Monocytes % 6.7 % (1.7-9.3) 02/04/24 04:55
Eosinophils % 0.5 % (0-6) 02/04/24 04:55
Basophils % 0.1 % (0-2) 02/04/24 04:55
Nucleated RBC % 0 % (-) 02/04/24 04:55
PT 20.2 Sec (11.4-14.6) H 02/03/24 14:11
INR 1.74 02/03/24 14:11
APTT 34.2 Sec (23.4-35.0) 02/03/24 14:11
Sodium 131 mmol/L (135-145) L 02/10/24 11:25
Potassium 3.8 mmol/L (3.5-5.1) 02/10/24 11:25
Chloride 95 mmol/L (98-107) L 02/10/24 11:25
Carbon Dioxide 34 mmol/L (22-30) H 02/10/24 11:25
BUN 15 mg/dl (9-20) 02/10/24 11:25
Creatinine 0.6 mg/dL (0.7-1.3) L 02/10/24 11:25
Estimated Creat Clear > 125 ml/min 02/10/24 11:25
eGFR > 60.00 02/10/24 11:25
Glucose 440 mg/dl (70-99) H 02/10/24 11:25
Hemoglobin A1c 5.0 % (4.0-5.6) 02/07/24 15:05
Lactic Acid 1.2 mmol/L (0.7-2.0) 02/03/24 18:18
Calcium 8.3 mg/dl (8.4-10.2) L 02/10/24 11:25
Phosphorus Cancelled 02/03/24 18:18
Magnesium 1.9 mg/dl (1.6-2.3) 02/06/24 08:06
Ferritin 529.0 ng/ml (17.9-464.0) H 02/07/24 15:05
Total Bilirubin 3.1 mg/dl (0.2-1.3) H 02/10/24 11:25
AST 61 U/L (17-59) H 02/10/24 11:25
ALT 51 U/L (0-50) H 02/10/24 11:25
Alkaline Phosphatase 265 U/L (38-126) H 02/10/24 11:25
Ammonia 16 umol/L (9-30) 02/03/24 14:11
Total Protein 4.8 g/dl (6.3-8.2) L 02/10/24 11:25
Albumin 2.5 g/dl (3.5-5.0) L 02/10/24 11:25
Triglycerides 89 mg/dl (10-149) 02/07/24 15:05
Total Cholesterol 80 mg/dl (50-199) 02/07/24 15:05
LDL Cholesterol, Calc 45 mg/dl 02/07/24 15:05
VLDL Cholesterol, Calc 17 mg/dl (0-30) 02/07/24 15:05
HDL Cholesterol 18 mg/dl 02/07/24 15:05
Vitamin B12 > 1000 pg/ml (239-931) H 02/07/24 15:05
Folate 11.5 ng/ml (2.76-20) 02/07/24 15:05
TSH (Reflex) 2.25 uIU/ml (0.47-4.68) 02/07/24 15:05
Urine Color [place] 02/03/24 14:14
Urine Clarity Clear (Clear) 02/03/24 14:14
Urine pH 6.0 (5.0-9.0) 02/03/24 14:14
Ur Specific [place] 1.015 (<1.030) 02/03/24 14:14
Urine Ketones Trace (Negative) A 02/03/24 14:14
Ur Occult Blood Reflex 2+ (Negative) A 02/03/24 14:14
Urine Nitrite (Reflex) Negative (Negative) 02/03/24 14:14
Urine Bilirubin 2+ (Negative) A 02/03/24 14:14
Urine Urobilinogen 4+ (Neg - 1+) A 02/03/24 14:14
Leukocyte Esterase Rfl 1+ (Negative) A 02/03/24 14:14
Urine RBC 3-6 /HPF (0-2) A 02/03/24 14:14
Urine WBC (Reflex) 11-15 /HPF (0-5) A 02/03/24 14:14
Ur Squamous Epith Cells 0-2 /LPF (Few) 02/03/24 14:14
Urine Bacteria (Reflex) Few (Negative) A 02/03/24 14:14
Urine Osmolality 565 mOsm/kg (300-900) 02/03/24 22:22
Urine Sodium < 5 mmol/L (30-90) L 02/03/24 22:22
Urine Glucose Negative (Negative) 02/03/24 14:14
Urine Albumin (Reflex) Trace (Neg - Trace) 02/03/24 14:14
Alcohol, Quantitative None detected mg/dl 02/03/24 14:11
SARS-CoV-2 Antigen Negative (Negative) 02/03/24 18:00
Diagnostic Results:
MRI Brain
-There are 2 small areas of restricted diffusion, one posterior to the right lateral ventricle in the parietal lobe and one in the posterior left cerebellum, consistent with small acute nonhemorrhagic infarcts.
-Old infarct in the right frontal lobe, with encephalomalacia.
-Mild diffuse volume loss and leukoaraiosis.
-Chronic sinus disease. Mastoiditis.
Neck MRA
-Focal tortuosity of the proximal right subclavian artery. At the level tortuosity, there appears to be focal narrowing, probably at least 50% diameter reduction. As warranted, consideration for cerebrovascular ultrasound evaluation with attention
to the right subclavian artery.
-No significant narrowing of the common carotid arteries, carotid bulbs, or proximal internal carotid arteries bilaterally.
-No significant narrowing of the anterior cerebral or middle cerebral arteries bilaterally.
-On concurrent unenhanced MR angiography of the [place] of [place], 2 mm aneurysm suggested arising from the right side of the anterior to indicating artery, better seen on the unenhanced examination.
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
Head MRA
-Diffuse moderate to severe caliber thinning of the P3 and P4 for portions of the right posterior cerebral artery. Moderate-caliber thickening of the distal P3 and P4 portions of the left posterior cerebral artery.
-No significant narrowing of the anterior cerebral arteries or middle cerebral arteries. 2 mm focal protrusion arising from the right side of the anterior communicating artery, which likely represents a small aneurysm.
Chest Xray - 02/06
There has been significant improvement in the interval since the 02/03/2024 CT examination with mild residual subsegmental atelectasis at the right lung base
Xray of right shoulder
Mild degenerative change of the glenohumeral joint. Moderate degenerative change of the right acromioclavicular joint.
Assessment
Patient is a 58-year-old male with PMH of (chronic right and right shoulder pain,meningitis 1999, CSF leak, hypertension, alcohol abuse, alcoholic cirrhosis, hepatitis C, thrombocytopenia, anxiety, COPD, benzodiazepine dependence, umbilical and
testicular hernia) admitted to [facility] with change in mental status, confusion, hallucinations, and agitation after abruptly stopping drinking etoh and smoking 5 days prior to admission. Brain MRI revealed 2 small areas of restricted
diffusion, 1 posterior to the right lateral ventricle in the parietal lobe and 1 in the posterior left cerebellum, consistent with small acute nonhemorrhagic infarcts. Positive for right lower lobe pneumonia on IV antibiotics.
Plan
PT/OT to increase independence with ADLs, improve balance, coordination, endurance, strength, mobility, community reintegration, decreased burden of care on others and family education.
CVA: Per neurology continue aspirin without plavix, lifelong, not on statin due to low total LDL and cholesterol (SBP less than 180 and diastolic less than 100 to participate with therapy for ischemic stroke). Continue to monitor neurologic status.
Pneumonia:-blood culture positive for strep species, reculture blood 02/05 no growth. Sputum culture + for Klebsiella oxytoca.Covid and flu negative. On Nebulizer, steroids and Robitussin QID. Zosyn IV q 6 hours. recent xray with improvement
Acute hypoxic respiratory failure with lactic acidosis-- SaO2 at 84 % on RA. Received High flow O2, then 6 liters. Weaned down to 4 liters with SaO2 at 92%. Hypoxia due to combination of atelectasias and underlying COPD, aspiration PNA in RLL,
chronic smoker. On prednisone 40mg qd. Albuterol inh. Patient currenty sitting in chair on room air without oxygen unlabored and NAD.
HTN: Hydralazine prn IV and Spironolactone. monitor closely
HLD: not on statin due to low LDL and total cholesterol
Anemia: Likely multifactorial.� Continue to monitor.
Thrombocytopenia: (61 as of 02/05). Repeat labs.Continue to monitor. If platelets less than 50,000 recommend keeping therapies to bedside. If platelets less than 20,000 will use further caution with activity levels and hold therapy for platelets
less than 10,000.
Psych: Psychology consult.� Monitor mood, adjust medications as needed.
Skin: monitor for pressure sores/rashes/lesions.
Pain/right shoulder: acetaminophen, Lidoderm patch, Tramadol
Bowel: Colace and Senna, PRN bisacodyl. Last BM yesterday
Bladder: Time void, PVRs, PRN straight cath.
Alcohol Abuse: Alcohol cessation education, offering of outpatient alcohol abuse program. On Thiamine, Folate
Tobacco Abuse: Smoking cessation counseling. Need to find out why smoking whether it is nicotine withdrawal, habit, or oral fixation. Nicotine Patch
Insomnia: was using etoh and benzo for sleep. started on Xanax 1mg HS, suggest trazodone with stroke.
GI Prophylaxis: Pantoprazole
DVT Prophylaxis: Heparin 5000 units SC, mechanical
Pulmonary: Incentive spirometry
Safety: Continue to reinforce assistance with all transfers.
Code Status:� Full code
Dispo (date/plan/equipment needs): Home with family care.� Social history reviewed.
Functional and Medical Goals: Modified Independent with ADL�s, ambulation, transfers
Summary of recommendations:
Discharge Destination: Patient with acute stroke and pneumonia on wean down oxygen would benefit from acute inpatient rehabilitation based on his current level of 12 feet x 1, 30 feet x 2, 12 feet x 1 with standing rest. Breaks without a device and
min assist.. Slightly unsteady requiring assist for balance however no overt loss of balance, did note desaturation to 86% on room air. Transfer supervision, sit to stand transfer supervision, stand to sit for PT/OT to increase independence with
ADLs, improve balance, coordination, endurance, strength, mobility, community reintegration, decreased burden of care on others and family education once medically stable.
CVA: Per neurology continue aspirin without plavix, lifelong, not on statin due to low total LDL and cholesterol and blood pressure control (SBP less than 180 and diastolic less than 100 to participate with therapy for ischemic stroke). Continue to
monitor neurologic status.
Pneumonia:-blood culture positive for strep species, reculture blood 02/05 no growth. Sputum culture + for Klebsiella oxytoca.Covid and flu negative. On Nebulizer, steroids and Robitussin QID. Zosyn IV q 6 hours. recent xray with improvement.
Doxycycline 100mg q 12.
Acute hypoxic respiratory failure with lactic acidosis-- SaO2 at 84 % on RA. Received High flow O2, then 6 liters. Weaned down to 4 liters with SaO2 at 92%. Hypoxia due to combination of atelectasias and underlying COPD, aspiration PNA in RLL,
chronic smoker. On prednisone 40mg qd. Albuterol inh. Patient currenty sitting in chair on room air without oxygen unlabored and NAD.
HTN: Hydralazine prn IV and Spironolactone. continue medications, monitor closely. IV med would need to be converted to PO prior to transfer.
HLD: Not on a statin due to low LDL and total cholesterol
Thrombocytopenia: (61 as of 02/05). Repeat labs.Continue to monitor. If platelets less than 50,000 recommend keeping therapies to bedside. If platelets less than 20,000 will use further caution with activity levels and hold therapy for platelets
less than 10,000.
Bowel: Colace and Senna, PRN bisacodyl. Last BM yesterday
Bladder: Time void, PVRs, PRN straight cath.
Alcohol Abuse: Alcohol cessation education, offering of outpatient alcohol abuse program. On Thiamine, Folate
Tobacco Abuse: Smoking cessation counseling. Need to find out why smoking whether it is nicotine withdrawal, habit, or oral fixation. Nicotine Patch
Insomnia: Suggest trazodone instead of Xanax with stroke.
DVT Prophylaxis: Heparin 5000 units SC, mechanical
Thank you for allowing me to care for your patient. Please contact me with any questions or concerns.
Attending statement:
I saw and examined the patient today. Reviewed care plan with patient, , and physician assistant customer service manager. I agree with the above subjective, physical exam, and plan as documented above.
A total of 60 minutes were spent with the patient preparing for the evaluation, obtaining history, performing examination and evaluation, counseling, data review, case management, care coordination, order fulfillment specialist, and EMR documentation.
[2024-02-10] MEDS: XANAX 1 MG PO (21:21)
[2024-02-11] VITALS (7 sets, daily range): BP systolic 103–139; BP diastolic 48–71; PULSE 91; O2SAT 91
[2024-02-11] MEDS: ZOSYN 50 IV ×4 (03:47→21:23)
[2024-02-11] MEDS: DUONEB 3 ML INH ×2 (07:58→11:25)
[2024-02-11] MEDS: LIDOCAINE 4% PATCH 1 PATCH TOPICAL (08:31)
[2024-02-11] MEDS: NICODERM TRANSDERMAL 14 MG TRANSDERM (08:31)
[2024-02-11] MEDS: VIBRAMYCIN 100 MG PO ×2 (08:32→19:44)
[2024-02-11] MEDS: PROTONIX 40 MG PO (08:32)
[2024-02-11] MEDS: VITAMIN B1 100 MG PO ×2 (08:32→19:44)
[2024-02-11] MEDS: ALDACTONE 25 MG PO (08:32)
[2024-02-11] MEDS: LOW STRENGTH ASPIRIN 81 MG PO (08:32)
[2024-02-11] MEDS: FOLVITE 1 MG PO (08:32)
[2024-02-11] MEDS: ROBITUSSIN 200 MG PO ×4 (08:32→21:22)
[2024-02-11] MEDS: DELTASONE 30 MG PO (08:32)
[2024-02-11] MEDS: HEPARIN 5000 UNITS SC ×2 (08:33→19:44)
--- NOTE | 2024-02-11 10:50 | W.PN.HOSP.TC ---
Today's Communication/Plan
-
.
Assessment / Plan
Assessment / Plan
Physical Exam
-
General: on nasal O2, No Apparent Distress
HEENT: Normocephalic, Atraumatic and Oxygen
Respiratory: limited with rhonchi both sides, limited on right lower side
Cardiac: S1S2
GI: Soft, Nontender, Nondistended and Normal Bowel Sounds
Musculoskeletal: No Clubbing, No Cyanosis and No Edema
Neuro: Awake and Alert. He follows commands.
Psych: Calm, no agitation
pt is a 58 year old male
#Acute hypoxic respiratory failure with lactic acidosis-- SaO2 at 84 % on RA
Received High flow O2, then 6 liters. Weaned down to 4 liters with SaO2 at 92%
Hypoxia due to combination of atelectasias and underlying COPD, aspiration PNA in RLL, chronic smoker.
CT chest showed no PE, complete atelectasis of the right lower lobe and the majority of the right middle lobe. Hepatic cirrhosis.
WBC is normal now. Afebrile
-blood culture positive for strep species, reculture blood 02/05 no growth.
Sputum culture + for Klebsiella oxytoca
Added IS and acapella-
-Covid and flu negative
- Started on Nebulizer, steroid and Robitussin QID
d/w pulmonary, changing to oral prednisone , will taper.
Anticipate he will need home O2
Pt reports that he is determined to quit alcohol and tobacco use.
Appreciate pulmonary help
# Positive blood culture on February 02, Streptococcus species, likely contaminant. Repeat blood cultures no growth.
Good clinical improvement
# Hepatitis C s/p treatment with [facility]. D/w SARAH Rossi
recent viral load test is pending
# Insomnia, patient was using Xanax and alcohol to help him sleep. He is having significant insomnia now. c/w scheduled dose of Xanax at 9 PM
# Klebsiella PNA. Tan sensitive
c/w Zosyn while in hospital.Will need total 10-14 days on TX. Can change to oral Augmentin when ready. today is # day 7
Repeat chest x ray 02/06 showed significant improvement in the interval since the 02/03/2024 CT examination with mild residual subsegmental atelectasis at the right lung base
#Alcohol withdrawal with Alcohol use disorder--Mild
After talking with family. It seemed that patient went through the major part of withdrawal at home and presented later.
received Ativan in ED on 02/02 and one dose on 02/03 ONLY
He is fully oriented and no tremor or agitation noted
--cont MSAS protocol, thiamine, folate--stopped IVF--no further signs of DT.
# Acute strokes
MRI brain showed 2 small areas of restricted diffusion, one posterior to the right lateral ventricle in the parietal lobe and one in the posterior left cerebellum, consistent with small acute nonhemorrhagic infarcts. Old infarct in the right frontal
lobe, with encephalomalacia. Mild diffuse volume loss and leukoaraiosis.
CT head showed mild age-related parenchymal atrophy. Stable chronic encephalomalacia in the anterior inferior right frontal lobe. No intra- or extra-axial mass, hemorrhage, or fluid collection. Mild subcortical, deep, and periventricular white
matter low-attenuation, compatible with changes of chronic small vessel ischemic disease. Postoperative changes of the frontal bones and previous endoscopic sinus surgery. Decreased paranasal sinus mucosal disease and nasal polyposis compared to the
previous CT. The mastoid air cells are clear.
MRA studies, no critical stenosis.
No neuro deficits
Will need rehab. As patient was completely independent and he stays by himself as his still works variable shifts
c/w aspirin. Due to ongoing liver cirrhosis/ thrombocytopenia, avoid combination of anti-platelets
Echo of heart Normal LVEF 55-60 %
HGB A1C 5.0
Appreciate neurology help
Consulted acute [facility] counselor Dr Masterson
s/p PT/OT/Speech
#Hyponatremia/ mild
c/w fluid restriction 1500cc.
no confusion
#Hypokalemia-
is 3.8, c/w K supplement
# Not UTI
Culture is negative
# Alcoholic hepatitis, mild
No abd pain
Transaminitis secondary to alcohol use--improving
#History of alcoholic cirrhosis--Continue spironolactone
Added PPI
#Active smoker--Nicotine patch
#Essential hypertension--
Good control of BP. No headache or chest pain. Continue spironolactone
#Chronic right upper extremity pain--Continue tramadol
X ray of shoulder joint showed degenerative changes in glenohumeral and acromioclavicular joints
#code status--full code per pt.
#DVT prophylaxis�heparin
Total time spent to see the patient, examine the patient on the floor, review data and lab results, discuss treatment plan with patient, family, nursing staff around 55 minutes.
Anticipated Discharge: Within 24 hours
Subjective/Interval History
-
Date of Service: February 11, 2024
no complaints
he wants to drink more liquids
no fevers
Objective Data
-
Vital Signs:
Vital Signs
Temp Pulse Resp BP Pulse Ox
98.3 F 83 16 103/48 93
02/11/24 07:00 02/11/24 07:58 02/11/24 07:58 02/11/24 07:00 02/11/24 07:58
I&O
02/10/24 02/11/24 02/12/24
06:59 06:59 06:59
Intake Total 700 / 700 1080 / 1080
Output Total 650 / 650 1095 / 1095
Balance 50 / 50 -15 / -15
--- NOTE | 2024-02-11 14:33 | W.PN.PUL3 ---
Today's Communication / Plan
-
Continue antibiotics total 7 days
Continue nebulizers while in the hospital
May continue as needed upon discharge
Prednisone taper decrease by 10 mg every 72 hours to off
Acapella device
Wean off oxygen as able
Discharge planning
No additional recommendation from the pulmonary perspective, signed off
Assessment
-
58-year-old male smoker with alcohol use disorder with chronic right upper extremity pain presented with visual hallucinations, tremulous, as well as shortness of breath, productive cough and sore throat-pulmonary consulted for shortness of breath,
wheezing and oxygen requirements 02/07/24.
COPD with acute exacerbation
Right middle and right lower lobe atelectasis
Bronchitis
Encephalopathy
Multiple previous lacunar infarcts
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
Alcohol use disorder with withdrawal
Hypertensive urgency
Hyponatremia
Urinary tract infection
Transaminitis
Mild [id number] 11.0
Mild hyperglycemia-blood sugar 119
Hypocalcemia-7.0
Hypoalbuminemia
Conditions present prior to admission:
COPD.
Cigarette smoker.
Alcohol use disorder.
Cirrhosis.
Chronic right upper extremity pain.
Anxiety.
Hypertension.
Cannabis dependence.
Benzodiazepine dependence.
Thrombocytopenia.
Umbilical and testicular hernia.
Hepatitis C.
History of meningitis.
Spinal fluid leak repair 2001.
Teeth extraction
DNR/DNI
Plan
Clinically improved
Continue to wean down oxygen as able to maintain pulse ox above 89%.
Oxygen has been weaned off
Clear lung exam today 02/11/2024
Continue secretion clearance intervention
Continue nebulizers as needed.
Prednisone 40 mg with slow taper, decrease by 10 mg every 72 hours to off.
-
His last chest x-ray 02/07/2024 with improved aeration noted-suspect with mucous plug
Hold off on bronchoscopic inspection and significant improvement
Sputum culture-02/04/2024-Klebsiella
Blood cultures negative
Finite course of antibiotics complete total 7 days.
Smoking cessation counseling provided and will be ongoing
Nicotine patch continues
Alcohol withdrawal treatment protocol
Thiamine
Ativan as needed
Follow MSAS
Alcohol cessation counseling ongoing
Physical and Occupational Therapy following patient, possible rehab.
DVT prophylaxis-on heparin
GI prophylaxis-on pantoprazole
Recommend outpatient pulmonary evaluation-ongoing smoking cessation counseling, yearly low-dose lung cancer screening CT, PFTs, inhaler instruction/prescriptions, etc.
sign off.
Dr. Ford reviewed with over the phone on 02/07/24 and again extensively at the bedside 02/09/24
Diagnostic data:
Chest x-ray 02/03/2024-NAD
Chest x-ray 02/07/24-significant improvement in interval since 02/03/[address]24
[address] low-dose lung cancer screening 09/24/2021-no parenchymal nodules
CT chest low-dose lung cancer screening 05/18/[id number] 3 mm nodule right lower lobe unchanged compared to 2020, no evidence for new nodules, coronary calcifications noted
Chest CT with PE protocol 02/03/2024-no evidence for pulmonary embolism, complete atelectasis right lower lobe and majority of the right middle lobe, hepatic cirrhosis
Echocardiogram 12/06/2022-EF 60-65%, mild mitral regurgitation, PA systolic estimated 20-25
Nuclear stress test 11/19/2022-EF 50%, moderate risk study, EKG negative for ischemia, occasional PVCs
Subjective Data
-
Date of Service:
Date of Service: February 11, 2024
Chief Complaint: Pulmonary Follow Up and Dyspnea Follow Up
Subjective:
No new complaints
Continues to report occasional coughing
Overall feels better.
Review of Systems
General: Fever (n)
Cardiopulmonary: Dyspnea (n), Cough and Wheezing (improved)
GI: Abdominal Pain (n) and Nausea (n)
Objective Data
Data Reviewed
Vital Signs / I&O / Oxygen:
Vital Signs
Temp Pulse Resp BP Pulse Ox
97.9 F 88 16 118/63 90
02/11/24 11:00 02/11/24 11:25 02/11/24 11:25 02/11/24 11:00 02/11/24 11:00
Intake and Output
02/10/24 02/11/24 02/12/24
06:59 06:59 06:59
Intake Total 700 / 700 1080 / 1080
Output Total 650 / 650 1095 / 1095
Balance 50 / 50 -15 / -15
SaO2 90
Nasal Cannula flow liters per 3
minute
Physical Exam
General: Respiratory Distress (n) and Comfortable
HEENT: Normocephalic, Anicteric and Moist Mucous Membranes
Cardiovascular: Regular Rhythm
Respiratory: Wheeze (Much improved with minimal wheezing now), Crackles ( rare basilar), Rhonchi (Few expiratory), Non-Labored Respirations, Accessory Resp Muscle Use (n) and Stridor (n)
GI: Soft, Non Distended and Non Tender
Neurology: Awake, Alert and No Motor Deficits
Skin: Warm, Good Color, Cyanosis (n), Jaundice and Rash (n)
Labs/Micro/Reports
Lab Data
02/06/24 08:06
02/10/24 11:25
Microbiology
02/06/24 12:17 Blood/Venous Blood Culture - Final
No Growth - Final Report
02/06/24 11:55 Blood/Venous Blood Culture - Final
No Growth - Final Report
[2024-02-11] MEDS: XANAX 1 MG PO (21:23)
[2024-02-12] VITALS (7 sets, daily range): BP systolic 116–136; BP diastolic 63–82
[2024-02-12] MEDS: ZOSYN 50 IV ×2 (03:53→09:10)
[2024-02-12] MEDS: NICODERM TRANSDERMAL 14 MG TRANSDERM (09:12)
[2024-02-12] MEDS: PROTONIX 40 MG PO (09:12)
[2024-02-12] MEDS: HEPARIN 5000 UNITS SC ×2 (09:13→19:51)
[2024-02-12] MEDS: VITAMIN B1 100 MG PO ×2 (09:13→19:52)
[2024-02-12] MEDS: FOLVITE 1 MG PO (09:13)
[2024-02-12] MEDS: VIBRAMYCIN 100 MG PO (09:13)
[2024-02-12] MEDS: LOW STRENGTH ASPIRIN 81 MG PO (09:13)
[2024-02-12] MEDS: ROBITUSSIN 200 MG PO ×4 (09:13→21:00)
[2024-02-12] MEDS: DELTASONE 30 MG PO (09:13)
[2024-02-12] MEDS: LIDOCAINE 4% PATCH 1 PATCH TOPICAL (09:14)
--- NOTE | 2024-02-12 09:42 | W.PN.HOSP.TC ---
Today's Communication/Plan
-
.
Assessment / Plan
Assessment / Plan
Physical Exam
-
General: on nasal O2, No Apparent Distress
HEENT: Normocephalic, Atraumatic and Oxygen. Small scab on tip of his nose.
Respiratory: limited with rhonchi both sides, limited on right lower side
Cardiac: S1S2
GI: Soft, Nontender, Nondistended and Normal Bowel Sounds
Musculoskeletal: No Clubbing, No Cyanosis and No Edema
Neuro: Awake and Alert. He follows commands.
Psych: Calm, no agitation
pt is a 58 year old male
#Acute hypoxic respiratory failure with lactic acidosis-- SaO2 at 84 % on RA
Received High flow O2, then 6 liters. Weaned down to 4 liters then to off
Hypoxia due to combination of atelectasias and underlying COPD, aspiration PNA in RLL, chronic smoker.
CT chest showed no PE, complete atelectasis of the right lower lobe and the majority of the right middle lobe. Hepatic cirrhosis.
WBC is normal now. Afebrile
-Blood culture positive for strep species, reculture blood 02/05 no growth.
Sputum culture + for Klebsiella oxytoca
Added IS and acapella-
-Covid and flu negative
- Started on Nebulizer, steroid and Robitussin QID
Changing to oral prednisone , will taper.
Pt reports that he is determined to quit alcohol and tobacco use.
Appreciate pulmonary help
# Positive blood culture on February 02, Streptococcus species, likely contaminant. Repeat blood cultures no growth.
Good clinical improvement
# Hepatitis C s/p treatment with [facility]. D/w SARAH Rossi
recent viral load test is pending
# Insomnia, patient was using Xanax and alcohol to help him sleep. He is having significant insomnia now. c/w scheduled dose of Xanax at 9 PM
# Klebsiella PNA. Tan sensitive
c/w Zosyn while in hospital.Will need total 10-14 days on TX. Can change to oral Augmentin when ready. Finished 7 days. Change to oral Augmentin to finish 10- 11 days.
Repeat chest x ray 02/06 showed significant improvement in the interval since the 02/03/2024 CT examination with mild residual subsegmental atelectasis at the right lung base
#Alcohol withdrawal with Alcohol use disorder--Mild
After talking with family. It seemed that patient went through the major part of withdrawal at home and presented later.
received Ativan in ED on 02/02 and one dose on 02/03 ONLY
He is fully oriented and no tremor or agitation noted
--cont MSAS protocol, thiamine, folate--stopped IVF--no further signs of DT.
# Acute strokes
MRI brain showed 2 small areas of restricted diffusion, one posterior to the right lateral ventricle in the parietal lobe and one in the posterior left cerebellum, consistent with small acute nonhemorrhagic infarcts. Old infarct in the right frontal
lobe, with encephalomalacia. Mild diffuse volume loss and leukoaraiosis.
CT head showed mild age-related parenchymal atrophy. Stable chronic encephalomalacia in the anterior inferior right frontal lobe. No intra- or extra-axial mass, hemorrhage, or fluid collection. Mild subcortical, deep, and periventricular white
matter low-attenuation, compatible with changes of chronic small vessel ischemic disease. Postoperative changes of the frontal bones and previous endoscopic sinus surgery. Decreased paranasal sinus mucosal disease and nasal polyposis compared to the
previous CT. The mastoid air cells are clear.
MRA studies, no critical stenosis.
No neuro deficits
Will need rehab. As patient was completely independent and he stays by himself as his still works variable shifts
c/w aspirin. Due to ongoing liver cirrhosis/ thrombocytopenia, avoid combination of anti-platelets
Echo of heart Normal LVEF 55-60 %
HGB A1C 5.0
Appreciate neurology help
Consulted acute rehabilitation therapist Dr Masterson
s/p PT/OT/Speech
#Hyponatremia/ mild
c/w fluid restriction 1500cc.
no confusion
#Hypokalemia-
is 3.8, c/w K supplement
# Not UTI
Culture is negative
# Alcoholic hepatitis, mild
No abd pain
Transaminitis secondary to alcohol use--improving
#History of alcoholic cirrhosis--Continue spironolactone
Added PPI
#Active smoker--Nicotine patch
#Essential hypertension--
Good control of BP. No headache or chest pain. Continue spironolactone
#Chronic right upper extremity pain--Continue tramadol
X ray of shoulder joint showed degenerative changes in glenohumeral and acromioclavicular joints
#code status--full code per pt.
#DVT prophylaxis�heparin
Total time spent to see the patient, examine the patient on the floor, review data and lab results, discuss treatment plan with patient, family, nursing staff around 57 minutes.
Anticipated Discharge: Within 24 hours
Subjective/Interval History
-
Date of Service: February 12, 2024
No chest pain
No sob
No abd pain
Objective Data
-
Vital Signs:
Vital Signs
Temp Pulse Resp BP Pulse Ox
98.1 F 85 16 126/67 89
02/12/24 07:00 02/12/24 07:00 02/12/24 07:00 02/12/24 07:00 02/12/24 07:00
I&O
02/11/24 02/12/24 02/13/24
06:59 06:59 06:59
Intake Total 1080 / 1080 960 / 960
Output Total 1095 / 1095 1175 / 1175
Balance -15 / -15 -215 / -215
[2024-02-12] MEDS: ALDACTONE 25 MG PO (09:58)
--- NOTE | 2024-02-12 16:11 | CM ---
Addendum entered by Nelly Ly 02/13/24 16:06:
CM spoke with patients insurance [employer], authorization pending reference number #[id number], clinicals being sent to medical coding technician for review. CM updated patient with possibility that patient may not be approved for acute rehab
through insurance, patient understands and agreeable to home PT services if not approved. Jonathan updated on pending auth.
Plan; [facility], auth pending/under review.
Original Note:
CM reviewed chart, referral sent to [facility]. CM will continue to follow for discharge planning needs.
Plan; [facility], pending acceptance.
[2024-02-12] MEDS: XANAX 1 MG PO (21:00)
[2024-02-13] VITALS (7 sets, daily range): BP systolic 117–145; BP diastolic 58–70; PULSE 88–95; O2SAT 92–97
[2024-02-13] MEDS: FOLVITE 1 MG PO (09:06)
[2024-02-13] MEDS: AUGMENTIN 875 MG/125 MG 1 TABLET PO ×2 (09:06→20:23)
[2024-02-13] MEDS: ALDACTONE 25 MG PO (09:06)
[2024-02-13] MEDS: DELTASONE 30 MG PO (09:06)
[2024-02-13] MEDS: HEPARIN 5000 UNITS SC (09:07)
[2024-02-13] MEDS: LIDOCAINE 4% PATCH 1 PATCH TOPICAL (09:07)
[2024-02-13] MEDS: NICODERM TRANSDERMAL 14 MG TRANSDERM (09:08)
[2024-02-13] MEDS: LOW STRENGTH ASPIRIN 81 MG PO (09:08)
[2024-02-13] MEDS: VITAMIN B1 100 MG PO ×2 (09:08→20:23)
[2024-02-13] MEDS: PROTONIX 40 MG PO (09:08)
[2024-02-13] MEDS: ROBITUSSIN 200 MG PO ×4 (09:08→21:26)
[2024-02-13 14:46] LABS: HCV Quant by NAAT IU/mL Not Detected; HCV Quant by NAAT Interp Not Detected (Not Detected); HCV Quant by NAAT Log IU/mL Not Detected log IU/mL
--- NOTE | 2024-02-13 14:53 | W.PN.HOSP.TC ---
Addendum entered and electronically signed by Bishop Gilliland MD 02/14/24 12:41:
Patient is in need of oxygen on exertion due to pulse oximetry of 86% on room air with exertion.
Patient was placed on 2L O2 via nasal cannula with saturation of 95%. Oxygen will help to improve hypoxemia.
Patient is mobile within the home. Albuterol therapy has been discussed and is ineffective in treating hypoxemia-related symptoms.
Oxygen will improve the patient's symptoms.
Original Note:
Today's Communication/Plan
-
Medically cleared for discharge to acute rehab pending insurance authorization.
Assessment / Plan
Assessment / Plan
Physical Exam
-
General: on nasal O2, No Apparent Distress
HEENT: Normocephalic, Atraumatic and Oxygen. Small scab on tip of his nose.
Respiratory: limited with rhonchi both sides, limited on right lower side
Cardiac: S1S2
GI: Soft, Nontender, Nondistended and Normal Bowel Sounds
Musculoskeletal: No Clubbing, No Cyanosis and No Edema
Neuro: Awake and Alert. He follows commands.
Psych: Calm, no agitation
pt is a 58 year old male
#Acute hypoxic respiratory failure with lactic acidosis-- SaO2 at 84 % on RA
Received High flow O2, then 6 liters. Weaned down to 4 liters then to off
Hypoxia due to combination of atelectasias and underlying COPD, aspiration PNA in RLL, chronic smoker.
CT chest showed no PE, complete atelectasis of the right lower lobe and the majority of the right middle lobe. Hepatic cirrhosis.
WBC is normal now. Afebrile
-Blood culture positive for strep species, reculture blood 02/05 no growth.
Sputum culture + for Klebsiella oxytoca
Added IS and acapella-
-Covid and flu negative
- Started on Nebulizer, steroid and Robitussin QID
Changing to oral prednisone , will taper.
Pt reports that he is determined to quit alcohol and tobacco use.
Appreciate pulmonary help
# Positive blood culture on February 02, Streptococcus species, likely contaminant. Repeat blood cultures no growth.
Good clinical improvement
# Hepatitis C s/p treatment with [facility]. D/w SARAH Rossi
recent viral load test is pending
# Insomnia, patient was using Xanax and alcohol to help him sleep. He is having significant insomnia now. c/w scheduled dose of Xanax at 9 PM
# Klebsiella PNA. Tan sensitive
c/w Zosyn while in hospital.Will need total 10-14 days on TX. Can change to oral Augmentin when ready. Finished 7 days. Change to oral Augmentin to finish 10- 11 days.
Repeat chest x ray 02/06 showed significant improvement in the interval since the 02/03/2024 CT examination with mild residual subsegmental atelectasis at the right lung base
#Alcohol withdrawal with Alcohol use disorder--Mild
After talking with family. It seemed that patient went through the major part of withdrawal at home and presented later.
received Ativan in ED on 02/02 and one dose on 02/03 ONLY
He is fully oriented and no tremor or agitation noted
--cont MSAS protocol, thiamine, folate--stopped IVF--no further signs of DT.
# Acute strokes
MRI brain showed 2 small areas of restricted diffusion, one posterior to the right lateral ventricle in the parietal lobe and one in the posterior left cerebellum, consistent with small acute nonhemorrhagic infarcts. Old infarct in the right frontal
lobe, with encephalomalacia. Mild diffuse volume loss and leukoaraiosis.
CT head showed mild age-related parenchymal atrophy. Stable chronic encephalomalacia in the anterior inferior right frontal lobe. No intra- or extra-axial mass, hemorrhage, or fluid collection. Mild subcortical, deep, and periventricular white
matter low-attenuation, compatible with changes of chronic small vessel ischemic disease. Postoperative changes of the frontal bones and previous endoscopic sinus surgery. Decreased paranasal sinus mucosal disease and nasal polyposis compared to the
previous CT. The mastoid air cells are clear.
MRA studies, no critical stenosis.
No neuro deficits
Will need rehab. As patient was completely independent and he stays by himself as his still works variable shifts
c/w aspirin. Due to ongoing liver cirrhosis/ thrombocytopenia, avoid combination of anti-platelets
Echo of heart Normal LVEF 55-60 %
HGB A1C 5.0
Appreciate neurology help
Consulted acute rehabilitation case coordinator Dr Masterson
s/p PT/OT/Speech
#Hyponatremia/ mild
c/w fluid restriction 1500cc.
no confusion
#Hypokalemia-
is 3.8, c/w K supplement
# Not UTI
Culture is negative
# Alcoholic hepatitis, mild
No abd pain
Transaminitis secondary to alcohol use--improving
#History of alcoholic cirrhosis--Continue spironolactone
Added PPI
#Active smoker--Nicotine patch
#Essential hypertension--
Good control of BP. No headache or chest pain. Continue spironolactone
#Chronic right upper extremity pain--Continue tramadol
X ray of shoulder joint showed degenerative changes in glenohumeral and acromioclavicular joints
#code status--full code per pt.
#DVT prophylaxis�heparin
Anticipated Discharge: Today
Subjective/Interval History
-
Date of Service: February 13, 2024
Objective Data
-
Vital Signs:
Vital Signs
Temp Pulse Resp BP Pulse Ox
98.0 F 92 16 122/66 91
02/13/24 11:48 02/13/24 11:48 02/13/24 11:48 02/13/24 11:48 02/13/24 11:48
I&O
02/12/24 02/13/24 02/14/24
06:59 06:59 06:59
Intake Total 960 / 960 480 / 480
Output Total 1175 / 1175 100 / 100
Balance -215 / -215 380 / 380
Physical Exam
-
General: Well Developed and No Apparent Distress
HEENT: Normocephalic, Atraumatic and Moist Mucous Membranes
Respiratory: Clear to Auscultation
Cardiac: Regular Rhythm and S1/S2; Negative Murmur, Rub or Gallop
GI: Soft, Nontender, Nondistended and Normal Bowel Sounds; Negative Organomegaly
Rectal: Deferred by Provider
Musculoskeletal: No Clubbing, No Cyanosis and No Edema
Skin: Negative Rash
Neuro: Nonfocal/Grossly Intact
[2024-02-13] MEDS: HEPARIN SC ×2 (20:22→20:25)
[2024-02-13] MEDS: XANAX 1 MG PO (21:26)
[2024-02-14] MEDS: DELTASONE 30 MG PO (07:35)
[2024-02-14] MEDS: ALDACTONE 25 MG PO (07:35)
[2024-02-14] MEDS: AUGMENTIN 875 MG/125 MG 1 TABLET PO (07:35)
[2024-02-14] MEDS: HEPARIN SC ×2 (07:36→07:43)
[2024-02-14] MEDS: FOLVITE 1 MG PO (07:36)
[2024-02-14] MEDS: ROBITUSSIN 200 MG PO ×2 (07:37→12:09)
[2024-02-14] MEDS: LIDOCAINE 4% PATCH 1 PATCH TOPICAL (07:37)
[2024-02-14] MEDS: LOW STRENGTH ASPIRIN 81 MG PO (07:37)
[2024-02-14] MEDS: NICODERM TRANSDERMAL 14 MG TRANSDERM (07:37)
[2024-02-14] MEDS: PROTONIX 40 MG PO (07:37)
[2024-02-14] MEDS: VITAMIN B1 100 MG PO (07:37)
[2024-02-14 07:54] VITALS: BP 128/65
--- NOTE | 2024-02-14 10:34 | CM ---
Addendum entered by Nelly Ly 02/14/24 14:31:
Patient seen bedside, discussed acute rehab authorization denied through insurance. Patient understands and reports he would like to go home, is agreeable to referral to [facility]. Patients updated but upset that patient was denied, requesting a
walker and home O2. CM will continue to follow for discharge planning needs.
Plan; home with [facility].
Original Note:
CM received a call from [facility], spoke with Valeria, patient was denied for acute rehab, can call [phone]/ fax [phone] for per to per form or appeal. Per Valeria, will receive a letter detailing the appeal. CM will update
patient/family. CM will continue to follow for discharge planning needs.
Plan; acute rehab auth denied, will offer home PT services.
--- NOTE | 2024-02-14 12:49 | W.DS.TRANS ---
DC Summary - [employer]
-
Discharge Instructions:
Discharge Diagnosis/Procedures Pneumonia
Acute CVA.
Alcohol use disorder with withdrawal.
Cirrhosis
Diet 2 Gram Sodium
Instructions:
Stand-Alone Forms:
Changes to Home Medications: Yes
Discharge Medications:
DC Medications w/original date entered in [employer]
spironolactone 25 mg tablet 25 mg PO DAILY Blood Pressure 02/03/24
tramadol 50 mg tablet 100 mg PO Q8HPRN PRN severe pain 02/03/24
alprazolam 1 mg tablet 1 mg PO HS #10 tabs 02/13/24
amoxicillin 875 mg-potassium clavulanate 125 mg tablet 1 tab PO Q12 #12 tabs 02/13/24
aspirin 81 mg chewable tablet (Children's Aspirin) 81 mg PO DAILY #30 tabs 02/13/24
guaifenesin 100 mg/5 mL oral liquid (Siltussin SA) 200 mg (10 mL) PO QID #30 mL 02/13/24
lidocaine 4 % topical patch 1 patch topical DAILY #10 ea 02/13/24
nicotine 14 mg/24 hr daily transdermal patch 14 mg transdermal DAILY #30 ea 02/13/24
pantoprazole 40 mg tablet,delayed release 40 mg PO DAILY #30 tabs 02/13/24
prednisone 10 mg tablet 10 mg PO DIRECTED #15 tabs 02/13/24
thiamine HCl (vitamin B1) 100 mg tablet 100 mg PO BID #30 tabs 02/13/24
albuterol sulfate 90 mcg/actuation aerosol inhaler 2 puff inhalation Q6H PRN shortness of breath or wheezing #8.5 grams 02/14/24
Home Medication Changes
all of above.
Pending Results: No
[2024-02-14 13:53] VITALS: O2SAT 92; O2SAT 95
[2024-02-14 14:01] VITALS: BP 134/70
--- NOTE | 2024-02-14 14:25 | VNURNOTE ---
Home Health Liaison spoke with patient at 1230 to discuss [facility] nurse/therapy, visits, schedule and homebound status. Patient is agreeable and understands that visits at home will be 2-3 x per week to assess and teach medical management.
Patient asking for walker at discharge, Rx requested.
Patient is aware that [facility] will contact him for start of care in 1-2 days after discharge from . Call to patient's to discuss above.
[facility] referral completed in [facility].
Liaison discussed ordering process for home O2 and patient is aware that he will call DME company once he gets home for concentrator.
Home O2 ordered from [employer]. all information faxed at [phone] and confirmed with technical services representative Erlin.
Portable tank delivered to patient room by Erlin.
== END 2024-02-14 14:23 | disposition home health service (06) | DRG 871 ==
LOC: 4 WEST ACU 17:36
PROVIDERS: Internal Medicine; Nurse Practitioner Adult Health; ADMITTING PHYSICIAN Hospitalist; ATTENDING PHYSICIAN Internal Medicine; CONSULT PHYSICIAN Internal Medicine Critical Care Medicine; CONSULT PHYSICIAN Physical Medicine & Rehabilitation; CONSULT PHYSICIAN Psychiatry & Neurology Neurology; EMERGENCY PHYSICIAN Emergency Medicine; FAMILY PHYSICIAN Internal Medicine
DX: A41.9 Sepsis, unspecified organism (principal); G93.41 Metabolic encephalopathy; J69.0 Pneumonitis due to inhalation of food and vomit; J96.01 Acute respiratory failure with hypoxia; F10.139 Alcohol abuse with withdrawal, unspecified; J44.0 Chronic obstructive pulmonary disease with (acute) lower respiratory infection; E87.1 Hypo-osmolality and hyponatremia; N39.0 Urinary tract infection, site not specified; J44.1 Chronic obstructive pulmonary disease with (acute) exacerbation; J98.11 Atelectasis; E87.20 Acidosis, unspecified; F17.213 Nicotine dependence, cigarettes, with withdrawal; Z66 Do not resuscitate; I16.0 Hypertensive urgency; I10 Essential (primary) hypertension; F41.9 Anxiety disorder, unspecified; D69.6 Thrombocytopenia, unspecified; E87.6 Hypokalemia; B19.20 Unspecified viral hepatitis C without hepatic coma; J20.9 Acute bronchitis, unspecified; I67.1 Cerebral aneurysm, nonruptured; Z11.52 Encounter for screening for COVID-19
CPT/HCPCS: 70450; 70544; 70548; 70551; 71045; 71046; 71275; 73030; 80053; 80061; 81003; 81015; 82077; 82140; 82607; 82728; 82746; 83036; 83605; 83735; 83935; 84100; 84300; 84443; 85025; 85027; 85610; 85730; 87040; 87070; 87077; 87086; 87149; 87186; 87205; 87502; 87522; 87811; 92523; 92610; 93005; 93306; 94640; 96365; 96375; 97116; 97129; 97163; 97166; 97530; 97535; 99291; A9585; Q9967

== ENCOUNTER → 2024-03-07 12:40 | Outpatient (REF) | payer BC, SELFPAY ==
[2024-03-07 14:13] LABS: Urine Albumin Negative (Neg - Trace); Urine Bilirubin Negative (Negative); Urine Character Clear (Clear); Urine Color Yellow; Urine Glucose Negative (Negative); Urine Ketone Negative (Negative); Urine Leukocyte 1+ (Negative); Urine Nitrite Negative (Negative); Urine Occult Blood 4+ (Negative); Urine Urobilinogen 2+ (Neg - 1+)
[2024-03-07 14:38] LABS: Urine Urothelial Cell 0-2 /LPF (FEW)
[2024-03-07 14:40] LABS: Urine Bacteria Few (Negative)
== END ==
LOC: CLAB 12:40
PROVIDERS: ATTENDING PHYSICIAN Internal Medicine
DX: R35.0 Frequency of micturition (principal)
CPT/HCPCS: 81003; 81015; 87086

== ENCOUNTER 2024-03-13 15:01 | Inpatient (IN) | payer BC, SELFPAY ==
[2024-03-13] VITALS (13 sets, daily range): BP systolic 101–168; BP diastolic 69–86; BMI 26.2
--- NOTE | 2024-03-13 12:49 | ED.GENMED ---
History of Present Illness
General
Chief Complaint: Abdominal Symptoms
Source: patient and spouse
Exam Limitations: none
Time Seen by Provider: 03/13/24 12:20
Nursing documentation reviewed up to this point in time: agreed with
Travel History
Have you had any contact with someone who has COVID-19?: No
Do you have any symptoms of coronavirus? Fever > 100 degrees, chills, cough, shortness of breath, sore throat, loss of taste or smell, muscle aches, or headache?: No
History of Present Illness
History of Present Illness:
58 yo male with hx alcoholic cirrhosis, CVA, HTN, smoker, COPD, recent PNA, acute CVA 02/03/24, Hep C, presents with abdominal distention/bloating gradually increasing over past 2 weeks. Feels a little SOB, afebrile, has mild RUQ discomfort. Denies
n/v/d/c. Appetite has been good.
Admitted 02/02-02/13, was on Lasix 40 mg daily for 3 days then DC'd, resumed again per PCP after 3 days due to ankle swelling and increasing abdominal swelling.
Past History
Past History
ED Past Medical History: COPD, CVA, HTN and Other (Chronic alcohol use, alcoholic cirrhosis, ); Negative Asthma, Hypercholesterolemia or NIDDM
ED Past Surgical History: None
Social History
Tobacco: Smoker
Alcohol: Other (Stopped 3 weeks ago)
Drug: None
Personal:
Living: with family
Employment: Employed
Family History
Family History: Diabetes and Other
Review of Systems
Review of Systems
Allergies reviewed?: Yes
All Other Systems: ROS reviewed and negative except as documented in HPI and ROS
Constitutional: Denies fever
Respiratory: Reports trouble breathing (feels a little SOB from abdominal distension)
Cardiac: Denies chest pain
ABD/GI: Reports abdominal pain (discomfort, not real pain); Denies nausea, vomiting, diarrhea, constipated or anorexia
: Denies dysuria or difficulty voiding
Musculoskeletal: Denies edema
Skin: Reports no symptoms
Neurological: Reports no symptoms
Phy Exam
Physical Exam
Physical Exam:
GENERAL: No acute distress. A&Ox3.
CONSTITUTIONAL: Afebrile.
EYES: PERRL, conjunctivae normal
ENMT: moist mucus membranes, Pharynx nl
RESPIRATORY: Regular respirations, nonlabored, lungs clear.
CARDIOVASCULAR: Regular rate and rhythm, no murmurs, no rubs.
GI: Distended. Minimally tender, normal BS
Rectal: stool brown, heme positive
MUSCULOSKELETAL: Moves with ease. Well perfused. No ankle edema.
SKIN: Warm, dry, pink
PSYCH: Normal mood and affect. Well kept, interactive and appropriate
NEUROLOGIC: Awake, alert and oriented. No focal neurological deficits
Course
Orders/Labs/Results
Orders:
Orders
03/13/24 Breakfast
NPO
Allow oral meds: Yes
Allow clear liquids: 4hrs prior to procedure
NPO with Ice Chips: Yes
Comment: may have unrestricted clear liquid up to 4 hrs prior to scheduled procedure
03/13/24 13:10
Complete Blood Count/With Diff Urgent
Comprehensive Metabolic Panel Urgent
Ferritin Urgent
Comment: ADD ON
Folate Urgent
Comment: ADD ON
Iron Urgent
Comment: ADD ON
Magnesium Urgent
Total Iron Binding Urgent
Comment: ADD ON
Vitamin B12 Urgent
Comment: ADD ON
03/13/24 13:46
GASTROINTESTINAL CONSULT Urgent
Consulting Provider: Charlotte Bunn
Was physician already notified: Yes
Reason for consult: GI bleed, cirrhosis with ascites.
03/13/24 13:49
Electrocardiogram (*1) Urgent
Reason for Study: Other
Other Reason for Exam: Hypokalemia
EKG- Treatment ONCE
03/13/24 13:52
Add On- LAB Urgent
Tests Added?: magnesium
03/13/24 13:57
Alprazolam [Xanax] 1 mg PO NOW STA
03/13/24 14:03
Type+Screen Urgent
Potassium Chloride [KCl] 40 meq PO NOW STA
03/13/24 14:04
Add On- LAB Routine
Tests Added?: iron, ferritin, tibc, folate, vit b12
03/13/24 14:06
Potassium Chloride [KCl] 20 meq 0.9% Sodium Chloride 150 ml [Nss] 150 ml IV NOW
03/13/24 14:[address] Non Medication Order As Directed
Physician Order: please tiger text me results of evening potassium
Above order entered?: Yes
03/13/24 14:38
[facility] CONSULT Routine
Consulting Provider: Tay Sanchez
Was physician already notified: Yes
Reason for Consult/Procedure: Paracentesis
Acknowledgement that appropriate orders are entered: Yes
Notify MD As Directed
Notify physician if: Notify GI provider prescription benefit specialist of volume removed when paracentesis complete.
[facility] Cytology Routine
Date Specimen was Collected: 03/13/24
Time Specimen was Collected: 15:57
Source: Peritoneal Fluid
Clinical Impression: cirrhosis
History of Malignancy: none
History of Radiation / Chemotherapy: none
Submitting Physician: Dr. Sanchez
03/13/24 14:40
Admit/Transfer Patient As Directed
Co-Sign Provider:
Level of Care: Inpatient admission
Assign to:: Telemetry
Physician / Group: Sawyer
Diagnosis: Ascites
Reason for Telemetry: Arrhythmia
Date to Stop Telemetry: 03/16/24
Time to Stop Telemetry: 11:00
Reason for Hospitalization: Paracentesis
Expected length of stay greater than two midnights?: Yes
ELOS- Estimated Length of Stay in days: 3
I certify the patient meets the requirements for IP care: Yes
Abdomen & Abd Doppler US [US Abd W Abd Doppler] Urgent
Comment:
Reason For Exam: new ascites, hx alcoholic cirrhosis
03/13/24 14:44
Code Status As Directed
Resuscitation Status: Full Code
03/13/24 Dinner
Sodium, 2 Gram
At Your Request: Full Participation
03/13/24 15:17
Prothrombin Time Urgent
03/13/24 15:59
Body Fluid Albumin Routine
Fluid Source: Peritoneal (Ascites)
Date Specimen was Collected: 03/13/24
Time Specimen was Collected: 15:57
Body Fluid Amylase Routine
Fluid Source: Peritoneal (Ascites)
Date Specimen was Collected: 03/13/24
Time Specimen was Collected: 15:57
Body Fluid Cell Count Routine
What is the Body Fluid: peritoneal fluid
Date Specimen was Collected: 03/13/24
Time Specimen was Collected: 15:57
Comment: post procedure
Body Fluid LDH Routine
Fluid Source: Peritoneal (Ascites)
Date Specimen was Collected: 03/13/24
Time Specimen was Collected: 15:57
Body Fluid Protein Routine
Fluid Source: Peritoneal (Ascites)
Date Specimen was Collected: 03/13/24
Time Specimen was Collected: 15:57
Fluid Culture with Gram Stain Routine
LOVE Source: Peritoneal Fluid
Specimen Description:
Date Specimen was Collected: 03/13/24
Time Specimen was Collected: 15:57
Comment: Post Procedure
03/13/24 17:02
Acetaminophen [Tylenol] 650 mg PO Q4HPRN PRN
Albuterol Nebs [Ventolin Nebules] 2.5 mg INH R Q4HPRN PRN
Tramadol HCl [Ultram] 100 mg PO Q8HPRN PRN
03/13/24 17:02
Activity As Directed
Activity Level: Out of Bed-Early Mobility
With Assistance
I&O [Intake/ Output] As Directed
Frequency: q12h
Pneumatic Compression Sleeves As Directed
Type: Knee high
Vital Signs As Directed
Frequency: Per unit guidelines
Weight As Directed
Frequency: Daily
DX Deep Vein Thrombosis Video Routine
03/13/24 18:21
Hemoglobin Routine
Potassium Routine
03/13/24 20:00
Thiamine HCl [Vitamin B1] 100 mg PO BID
03/13/24 22:00
Alprazolam [Xanax] 1 mg PO HS
03/14/24 06:00
Basic Metabolic Panel IN AM
Complete Blood Count/No Diff IN AM
Magnesium IN AM
03/14/24 08:00
Aspirin Chewable [Low Strength Aspirin] 81 mg PO DAILY
Furosemide [Lasix] 40 mg PO DAILY
Lidocaine [Lidocaine 4% Patch] 2 patch TOPICAL DAILY
Nicotine [Nicoderm Transdermal] 14 mg TRANSDERM DAILY
Pantoprazole [Protonix] 40 mg PO DAILY
Spironolactone [Aldactone] 25 mg PO DAILY
03/16/24 11:00
DC Protocol for Telemetry ONCE
Abnormal Lab Results
03/13/24
13:10
RBC 2.85 L 10^6/uL
(4.70-6.10)
Hgb 9.7 L g/dL
(13.0-18.0)
Hct 28.3 L %
(39.0-52.0)
MCV 99.3 H fL
(80.0-94.0)
MCH 34.0 H pg
(27.0-31.0)
Plt Count 72 L 10^3/uL
(130-400)
Absolute Lymphs (auto) 1.1 L 10^3/uL
(1.2-3.4)
Immature Gran % 0.6 H %
(0-0.5)
Sodium 131 L mmol/L
(135-145)
Potassium 2.6 L* mmol/L
(3.5-5.1)
Carbon Dioxide 31 H mmol/L
(22-30)
Glucose 147 H mg/dl
(70-99)
Calcium 7.9 L mg/dl
(8.4-10.2)
Magnesium 1.5 L mg/dl
(1.6-2.3)
Total Bilirubin 4.2 H mg/dl
(0.2-1.3)
Alkaline Phosphatase 160 H U/L
(38-126)
Total Protein 5.4 L g/dl
(6.3-8.2)
Albumin 2.7 L g/dl
(3.5-5.0)
03/13/24 13:10
03/13/24 13:10
Vital Signs
Initial and Last Documented VS:
Initial Vital Signs
Temp Pulse Resp BP Pulse Ox
99.1 F 112 20 168/78 96
03/13/24 12:13 03/13/24 12:13 03/13/24 12:13 03/13/24 12:13 03/13/24 12:13
Last Documented Vital Signs
Temp Pulse Resp BP Pulse Ox
98.9 F 109 20 144/70 96
03/13/24 20:49 03/13/24 20:49 03/13/24 20:49 03/13/24 20:49 03/13/24 20:49
MDM/Problems Addressed
Differential Diagnosis Includes:
alcoholic cirrhosis of liver with new ascites, Spontaneous bacterial peritonitis
MDM/Problems Addressed:
58 yo male with hx alcoholic cirrhosis, CVA, HTN, smoker, COPD, recent PNA, acute CVA 02/03/24, Hep C, presents with abdominal distention/bloating gradually increasing over past 2 weeks. Feels a little SOB, afebrile, has mild RUQ discomfort. Denies
n/v/d/c. Appetite has been good.
Admitted 02/02-02/13, was on Lasix 40 mg daily for 3 days then DC'd, resumed again per PCP after 3 days due to ankle swelling and increasing abdominal swelling.
Afebrile, NAD
No infectious symptoms
1:33 PM
CBC: Hemoglobin is 9.7, was 11.7 on 02/06/24; rectal exam performed, stool is brown but hematest/positive.
CMP: K+ 2.6, mild hyponatremia Na 131
Plan: Admit: GI bleed, anemia, alcoholic cirrhosis with ascites
Hospitalist notified, GI consult in.
Chronic conditions affecting care: HTN, COPD and Other (Alcoholic cirrhosis of liver)
*Critical Care Note
Total Time (30-74mins, 75-104mins- exclusive of procedures): Not Applicable
ED Attending Note
-
Portions of this chart may have been created with voice recognition software.� Occasional wrong word or��sound alike� substitutions may have occurred due to the inherent limitations of voice recognition software.
Discharge Plan
Departure
Patient Disposition: Admit
Date of Disposition: 03/13/24
Time of Disposition: 13:47
Admit to: Med/Surg
Presentation/result/management discussed w/ accepting MD/DO: Hospitalist
Condition: Fair
Discharge Problem:
Cirrhosis, alcoholic, Abdominal ascites, Acute hypokalemia, Anemia, GI bleed
Interventions
Interventions:
*Risk Screen - Suicide Last Done: 03/13/24 12:13
*General Assessment Last Done: 03/13/24 12:13
*Neglect/Abuse Screening Last Done: 03/13/24 12:13
ED- Fall Risk Assessment Last Done: 03/13/24 16:45
*ED COVID-19 Vaccine History Last Done: 03/13/24 12:21
*Nursing Disposition Last Done: 03/13/24 16:45
RQ-Whjvrg-Zetnpaiwto Assessment Last Done: 03/13/24 13:08
Discharge Date and Time
Discharge Date/Time: 03/13/24 16:46
[2024-03-13 13:21] LABS: % Basophils 0.8 % (0-2); % Eosinophils 1.5 % (0-6); % Immature Granulocytes 0.6 % (0-0.5); % Lymphocytes 21.9 % (20.5-51.1); % Monocytes 8.4 % (1.7-9.3); % Neutrophils 66.8 % (42.2-75.2); Absolute Eosinophils 0.1 10^3/uL (0-0.7); Absolute Lymphocytes 1.1 10^3/uL (1.2-3.4); Absolute Monocytes 0.4 10^3/uL (0.1-0.6); Absolute Neutrophils 3.2 10^3/uL (1.4-6.5); Hematocrit 28.3 % (39.0-52.0); Hemoglobin 9.7 g/dL (13.0-18.0); Mean Corp Hgb Conc. 34.3 g/dL (33.0-37.0); Mean Corpuscular Volume 99.3 fL (80.0-94.0); Mean Platelet Volume 9.8 fL (7.4-10.4); Nucleated Red Blood Cells % 0 % (-); Platelet Count 72 10^3/uL (130-400); Red Blood Cell Count 2.85 10^6/uL (4.70-6.10); Red Cell Dist. Width 13.2 % (11.5-14.5); White Blood Cell Count 4.8 10^3/uL (4.8-10.8)
[2024-03-13 13:40] LABS: ALT (SGPT) 21 U/L (0-50); AST (SGOT) 53 U/L (17-59); Albumin 2.7 g/dl (3.5-5.0); Alkaline Phosphatase 160 U/L (38-126); Blood Urea Nitrogen 10 mg/dl (9-20); Calcium 7.9 mg/dl (8.4-10.2); Carbon Dioxide 31 mmol/L (22-30); Chloride 98 mmol/L (98-107); Glucose 147 mg/dl (70-99); Potassium 2.6 mmol/L (3.5-5.1); Sodium 131 mmol/L (135-145); Total Bilirubin 4.2 mg/dl (0.2-1.3); Total Protein 5.4 g/dl (6.3-8.2); eGFR > 60.00
--- NOTE | 2024-03-13 13:53 | HPS.HSE ---
Family Physician
-
Family Physician: Drake Goss
Chief Complaint
-
Increasing abdominal distention
History of Present Illness
Patient is a 58 y/o male past medical history of Hepatitis C s/p treatment and alcoholic cirrhosis who presents to the ED for worsening abdominal distension x 2 weeks. He previously was taking Lasix but states it was stopped for a few days, but then
restarted about a week ago due to increasing lower extremity edema. He reports improvement in his leg since restarting the Lasix, but no change in the abdominal distention. He denies N/V/D/C and states his bowel movements are regular but he has
intermittent episodes of bright red blood upon wiping and few drops in the toilet. He denies fever, SOB, coughing, or changes in his appetite.
Medical History
Past Medical History
Past Medical History: Reports Other
Additional Past Medical History:
Multiple Lacunar Infarcts
COPD
Alcohol Use Disorder
Alcoholic Cirrhosis
Hepatitis C s/p Treatment
Hypertension
Insomnia
Chronic Right Upper Ext Pain
Past Surgical History: Reports None
Social History
Tobacco: Former Smoker
Alcohol: Former
Family History
Family History: Not pertinent
Allergies / Home Medications
Allergies reflects when Allergies were last updated in [facility].
Home Medications with original date entered in [facility]
Allergy/Medication List:
Allergies
Allergy/AdvReac Type Severity Reaction Status Date / Time
No Known Allergies Allergy Verified 03/13/24 12:17
Home Medications
spironolactone 25 mg tablet 25 mg PO DAILY Blood Pressure 02/03/24
tramadol 50 mg tablet 100 mg PO Q8HPRN PRN severe pain 02/03/24
alprazolam 1 mg tablet 1 mg PO HS #10 tabs 02/13/24
aspirin 81 mg chewable tablet (Children's Aspirin) 81 mg PO DAILY #30 tabs 02/13/24
nicotine 14 mg/24 hr daily transdermal patch 14 mg transdermal DAILY #30 ea 02/13/24
pantoprazole 40 mg tablet,delayed release 40 mg PO DAILY #30 tabs 02/13/24
thiamine HCl (vitamin B1) 100 mg tablet 100 mg PO BID #30 tabs 02/13/24
albuterol sulfate 90 mcg/actuation aerosol inhaler 2 puff inhalation R Q6HPRN PRN shortness of breath or wheezing 03/13/24
furosemide 40 mg tablet (Lasix) 40 mg PO DAILY 03/13/24
lidocaine 4 % topical patch 2 patch topical DAILY right knee and shoulder 03/13/24
Review of Systems
-
A 12 point ROS was completed and negative except as noted: Yes
Constitutional: Denies Fever or Chills
Respiratory: Denies Cough or Trouble Breathing
Cardiac: Denies Chest Pain or Palpitations
Abdomen/GI: Reports See HPI
Physical Exam
Vital Signs
Vital Signs
Temp Pulse Resp BP Pulse Ox
99.1 F 102 25 142/72 96
03/13/24 12:13 03/13/24 13:30 03/13/24 13:30 03/13/24 13:08 03/13/24 13:30
Physical Exam
General: Comfortable and Conversant
HEENT: Anicteric and Moist mucous membranes
Respiratory: Wheezes (Anteriorly) and Rales (Bilateral bases)
Cardiac: S1/S2 and Regular Rhythm
GI: Soft, Non Tender, Normal Bowel Sounds and Distended
Rectal: Hem Positive (Per ED)
Musculoskeletal: No Clubbing, No Cyanosis and Other (+1 pitting edema bilateral lower ext)
Skin: Warm and Dry
Neuro: Awake, Alert, Oriented and Nonfocal/grossly intact
Psych: Calm
Laboratory Results
-
03/13/24 13:10
03/13/24 13:10
Laboratory Results
Total Bilirubin 4.2 mg/dl (0.2-1.3) H 03/13/24 13:10
AST 53 U/L (17-59) 03/13/24 13:10
ALT 21 U/L (0-50) 03/13/24 13:10
Alkaline Phosphatase 160 U/L (38-126) H 03/13/24 13:10
Data Reviewed
-
Lab Data: Labs Reviewed by me
Old Records: Reviewed
Impression/Plan
-
Abdominal Ascites
-Check Abd US with Doppler
-Consult IR for paracentesis
-Continue Lasix
Hypokalemia, likely related to diuretics
-Replace potassium PO and IV
-Recheck potassium level later this evening and in AM
Macrocytic Anemia with Heme-Positive Stool, suspect hemorrhoidal
-EGD in Dec 2022 with portal hypertensive gastropathy, but no varices
-Consult GI
-Continue to trend Hgb
-Check iron, ferritin, tibc, folate, vit b12
Multiple Lacunar Infarcts, new as of February 2024
-Continue aspirin
COPD, no acute exacerbation
-Continue albuterol prn
Alcohol Use Disorder
Alcoholic Cirrhosis
Hepatitis C s/p Treatment
-Monitor LFTs
Hypertension
-Continue spironolactone
Insomnia
-Continue alprazolam
Chronic Right Upper Ext Pain
-Continue tramadol prn
-Continue lidocaine patch
DVT Proph: SCDs
Code Status: Full Code
--- NOTE | 2024-03-13 14:10 | W.PN.UPDATE ---
Update Note
Progress Note Update
This is an addendum to H&P written by ROSIE Stiles
I saw and examined the patient.
The STORAGE WHARFAGE CLERK's note was reviewed and I agree with the note.
Comment:
Mr. Cortez Mazariegos is a 58 yo man with hx former alcohol use, alcohol cirrhosis,COPD, prior CVA, essential HTN, HCV, admission 02/28 for PNA and COPD exacerbation and acute CVA presents to the ER with abdominal bloating over past 2 weeks.
Triage VS: T 99.1, P 112, RR 20, BP 168/78, SpO2 96%
LABS: WBC 4.8, Hg 9.7, PLT 72, Na 131, K+ 2.6, Cr 0.7, May 1.5, T. Bili 4.2, AST 53, ALT 21, Alk Phos 160
On exam patient is awake, conversant. Lungs clear. Abdomen distended. + mild LE edema.
Alcohol Cirrhosis with Ascites
-will obtain RUQ US with doppler now
-IR consult for paracentesis
continue SALES/MARKETING lasix and spironolactone
-GI consult
Anemia
report of BRBPR (does not fill toilet bowel)
-repeat Hg this evening
-likely hemorrhoidal bleeding
-blood consent signed in ER
-F/U iron studies, B12
-GI consult as above
-SALES/MARKETING Protonix
Hypokalemia
Hypomagnesemia
-replete
Hx CVA
-SALES/MARKETING aspirin
Hx Alcohol Use
-patient reports being sober since last admission
Hx Tobacco use
-nictoine patch
Remainder of plan per H&P
[2024-03-13 14:20] LABS: Iron 116 ug/dl (49-181); Magnesium 1.5 mg/dl (1.6-2.3)
[2024-03-13] MEDS: XANAX 1 MG PO ×2 (14:23→21:06)
[2024-03-13] MEDS: KCL 40 MEQ PO ×2 (14:23→20:10)
[2024-03-13 14:34] LABS: Percent Saturation 40 % (20-50); Total Iron Binding Capacity 290 ug/dl (261-462)
[2024-03-13] MEDS: KCL 160 MEQ IV (14:43)
[2024-03-13 15:34] LABS: INR 1.56; PT 18.5 Sec (11.4-14.6)
[2024-03-13 16:10] LABS: Folate 11.1 ng/ml (2.76-20); Vitamin B12 878 pg/ml (239-931)
[2024-03-13 16:27] LABS: Body Fluid Mononuclear 86.2 %; Body Fluid Polymorphonuclear 13.8 %; Body Fluid WBC 87 /CUMM
[2024-03-13 16:30] LABS: Body Fluid Second Tech DB
[2024-03-13 16:36] LABS: Body Fluid Albumin < 1.0 g/dl; Body Fluid Amylase < 30 U/L; Body Fluid LDH < 90 U/L; Body Fluid Protein < 2.0 g/dl
[2024-03-13 18:26] LABS: Hemoglobin 9.8 g/dL (13.0-18.0)
[2024-03-13] MEDS: MAGNESIUM SULFATE 50 IV (18:33)
[2024-03-13 18:41] LABS: Potassium 3.1 mmol/L (3.5-5.1)
[2024-03-13] MEDS: VITAMIN B1 100 MG PO (20:10)
[2024-03-13] MEDS: FLEXBUMIN 50 IV (20:20)
[2024-03-13] MEDS: FLEXBUMIN 100 IV (21:13)
[2024-03-14 03:23] VITALS: BP 113/55
[2024-03-14 06:00] VITALS: BMI 26.6
[2024-03-14 06:45] LABS: Hematocrit 25.1 % (39.0-52.0); Hemoglobin 8.7 g/dL (13.0-18.0); Mean Corp Hgb Conc. 34.7 g/dL (33.0-37.0); Mean Corpuscular Hgb 33.6 pg (27.0-31.0); Mean Corpuscular Volume 96.9 fL (80.0-94.0); Mean Platelet Volume 9.3 fL (7.4-10.4); Platelet Count 67 10^3/uL (130-400); Red Blood Cell Count 2.59 10^6/uL (4.70-6.10); Red Cell Dist. Width 13.2 % (11.5-14.5); White Blood Cell Count 3.6 10^3/uL (4.8-10.8)
[2024-03-14 07:00] VITALS: BP 130/69
[2024-03-14 07:13] LABS: Blood Urea Nitrogen 8 mg/dl (9-20); Calcium 8.2 mg/dl (8.4-10.2); Carbon Dioxide 28 mmol/L (22-30); Chloride 102 mmol/L (98-107); Estimated Creatinine Clearance > 125 ml/min; Glucose 98 mg/dl (70-99); Potassium 3.3 mmol/L (3.5-5.1); Sodium 133 mmol/L (135-145); eGFR > 60.00
--- NOTE | 2024-03-14 07:45 | CON.GI ---
Addendum entered and electronically signed by Charlotte Ruth Do, MD 03/14/24 11:40:
I saw and examined the patient.
The OFFICE ASSOCIATE's note was reviewed and I agree with the note.
Comment: Christophe is a 58yo M with h/o treated HCV and ETOH cirrhosis wo presents to ED with worsening abd distension. He is known to Dr Weaver at [facility]. Denies black or red blood in stools. No fever or chills. Last ETOH intake was 7 wks ago. Exam
VSS mild icterus, obese abdomen without fluid wave, NTTP, no asterixis. Labs reviewed with pancytopenia hypokalemia. anemia without iron deficiency.
Impression
- Ascites
Paracentesis done 03/13 for 5.3L neg for SBP
- Cirrhosis
- ETOH use
Last drink per pt 7wks ago
- H/o hep C
s/p epclusa with SVR
- Pancytopenia
No iron deficiency
- Brown heme + stool
Recommendations
- C/w lasix 40mg daily
- Increase aldactone to 50mg daily
- Low salt diet
- Await abd US
- Would benefit from OP colonoscopy with Dr Weaver for brown FOBT+ stool. Consider repeat EGD for EV screening given decompensation
- Given MELD 3.0 of 21 consider OP transplant hepatology eval as well
If BP and renal function remains stable anticipate d/c tomorrow. GI will coordinate lab slip for 1 wk from hosp d/c.
All questions answered.
Addendum entered and electronically signed by Leticia Maynard NP 03/14/24 10:21:
Also added AFP for HCC screening. await US
Addendum entered and electronically signed by Leticia Maynard NP 03/14/24 10:15:
Spoke to Dr. Bunn. Will increase Spironolactone to 50mg daily. Added direct bilirubin to fractionate.
Original Note:
Consultation
-
Date/Time Consultation Requested: 03/13/24 @ 13:46
Date/Time Consultation Performed: 03/14/24 @ 08:30
Requesting Provider: Natalie Valentin NP
Performing Provider: MARCIA Godoy; Dr. Charlotte Bunn
Reason for Consultation: ascites
Medical History
Chief Complaint / HPI
Chief Complaint: increased abdominal distention
History of Present Illness:
The patient is a 58-year-old male with a past medical history significant for liver cirrhosis with history of alcohol abuse and hepatitis C status-post treatment and eradication last year, recent admission for respiratory complaints found to have
Klebsiella pneumonia, hypertension, GERD, current smoker, anxiety, who presented to the emergency room with complaints of increased abdominal distention. We are being asked to evaluate for evaluation of ascites. Upon review of records, the patient
has been followed by Dr. Weaver in the office for management of hepatitis C and alcoholic liver cirrhosis with ascites, last seen in the office in July 2023. He was treated with Epclusa for 8 weeks (was supposed to be 12 weeks but he did not
take the full course) for hep C and eradication has been confirmed based on hep C testing. He did have somewhat of a chronically elevated bilirubin and LDH, haptoglobin, and reticulocyte count were ordered at that time to rule out hemolysis as
cause but these were not completed. In regards to his cirrhosis he was advised to continue to abstain from alcohol and continued on spironolactone at 25 mg daily although not on Lasix at that time. He had been advised on routine screening and
referral to hepatology in the past but was not compliant with this. It is noted he had been hospitalized last month with respiratory complaints found to have Klebsiella pneumonia and likely underlying COPD, treated with a course of antibiotics and
oral prednisone. Under further evaluation he was found to also have small strokes, evaluated by neurology and placed on aspirin. Dual antiplatelet therapy was avoided given his chronic thrombocytopenia and liver cirrhosis. He would also had
symptoms of alcohol withdrawal as he had a relapse in drinking. Today he reports he had been having increasing abdominal swelling over the last few weeks. He had been seen by his PCP and started on Lasix 40 mg daily due to increased lower
extremity swelling right greater than left. He notes that despite this he continued with abdominal distention although the swelling in his lower extremities did go down. He also takes spironolactone 25 mg daily which she has been compliant with.
He admits to some tenderness to the right upper quadrant which has since resolved after undergoing a paracentesis here. He notes that he does drink a lot of water to stay hydrated. He denies any significant weight loss. He denies any overt
constipation but does admit he has been straining to move his bowels due to the distention of his abdomen, and has noticed some bright red blood per rectum upon wiping and small drops into the toilet bowl. He denies any overt hematochezia or
melena. He otherwise denies any chest pain, shortness of breath, fevers, chills, nausea, vomiting, diarrhea, early satiety, dysphagia, or hematemesis. His last drink of alcohol was approximate 7 weeks ago prior to his last admission. He also quit
smoking at that time. He has never had a colonoscopy, and was previously advised to undergo an outpatient but had previously declined. His last EGD was done last December with no evidence of esophageal varices but moderate portal hypertensive
gastropathy was seen. Routine labs in the ER showed a WBC 4.8, hemoglobin 9.7, MCV 99.3, platelets 72,000, INR 1.56, sodium 131, potassium 2.6, BUN 10, creatinine 0.7, magnesium 1.5, total iron 116, iron saturation 40, ferritin 158, total bilirubin
4.2, AST 53, ALT 21, alk phos 160, vitamin B12 878, folate 11.1. He did undergo paracentesis with 5300 mL of ascitic fluid removed, with fluid cell counts showing no signs of SBP with fluid WBC of 87 and PMNs 13.8. He did receive IV albumin post
paracentesis of 37.5 g. An ultrasound of the abdomen with Doppler was ordered and is pending this morning. Magnesium was repleted along with potassium upon admission and he was continued on his home diuretic regimen.
Past Medical History
Past Medical History: COPD, CVA, HTN and Other (EtOH abuse, hepatitis C status posttreatment and eradication, decompensated alcoholic liver cirrhosis with ascites, chronic pain, current cigarette smoker, chronic thrombocytopenia, chronic
hyponatremia, insomnia)
Past Surgical History: Other (Tooth extraction, spinal fluid leak with patching 2001)
Social History
Tobacco: Smoker
Alcohol: Chronic Alcoholic
Drug: None
Personal:
Living: With Family
Family History
Family History: Reviewed & Not Pertinent
Allergies / Home Medications
Allergy/AdvReac Type Severity Reaction Status Date / Time
No Known Allergies Allergy Verified 03/13/24 12:17
�Medication �Instructions �Recorded
spironolactone 25 mg tablet 25 mg PO DAILY Blood Pressure 02/03/24
tramadol 50 mg tablet 100 mg PO Q8HPRN PRN severe pain 02/03/24
albuterol sulfate 90 mcg/actuation 2 puff inhalation R Q6HPRN PRN 03/13/24
aerosol inhaler shortness of breath or wheezing
alprazolam 1 mg tablet 1 mg PO HS anxiety 03/13/24
aspirin 81 mg chewable tablet 81 mg PO DAILY Blood Clot 03/13/24
(Children's Aspirin) Prevention/Tx
furosemide 40 mg tablet (Lasix) 40 mg PO DAILY Fluid 03/13/24
Retention/Swelling
lidocaine 4 % topical patch 2 patch topical DAILY right knee 03/13/24
and shoulder
nicotine 14 mg/24 hr daily 14 mg transdermal DAILY smoking 03/13/24
transdermal patch cessation
pantoprazole 40 mg tablet,delayed 40 mg PO DAILY Gastrointestinal 03/13/24
release Issue
thiamine HCl (vitamin B1) 100 mg 100 mg PO BID Supplement 03/13/24
tablet
Review of Systems
-
History Source: Patient
Constitutional: Reports No Symptoms
EENT: Reports No Symptoms
Respiratory: Reports Trouble Breathing
Cardiac: Reports No Symptoms
Abdomen/GI: Reports Other (Abdominal distention, rectal bleeding)
: Reports No Symptoms
Musculoskeletal: Reports Edema (Lower extremity swelling)
Skin: Reports No Symptoms
Neurological: Reports No Symptoms
Vital Signs
Temp Pulse Resp BP Pulse Ox
98.1 F 103 17 113/55 98
03/14/24 03:23 03/14/24 03:23 03/14/24 03:23 03/14/24 03:23 03/14/24 03:23
Physical Exam
Exam
General: Well Developed, Well Nourished and No Apparent Distress
HEENT: Normocephalic, Atraumatic and Other (Slight bilateral scleral icterus)
Respiratory: Wheezes (Scant intermittent expiratory wheeze in the upper lobes otherwise clear but overall diminished)
Cardiac: S1/S2 and Regular Rhythm
Breast: Deferred by me
GI: Soft, Non Tender, Non Distended, Normal Bowel Sounds and Organomegaly (Hepatomegaly)
Rectal: Other (Brown heme positive per ER physician exam)
Musculoskeletal: Edema (Right greater than left +1 lower extremity edema)
Skin: Warm, Dry and Other (Small abrasion to the nose)
Neuro: Awake, Alert and Oriented
Psych: Calm
Results
WBC 3.6 10^3/uL (4.8-10.8) L 03/14/24 06:27
Hgb 8.7 g/dL (13.0-18.0) L 03/14/24 06:27
Hct 25.1 % (39.0-52.0) L 03/14/24 06:27
MCV 96.9 fL (80.0-94.0) H 03/14/24 06:27
Plt Count 67 10^3/uL (130-400) L 03/14/24 06:27
Absolute Neuts (auto) 3.2 10^3/uL (1.4-6.5) 03/13/24 13:10
PT 18.5 Sec (11.4-14.6) H 03/13/24 15:17
INR 1.56 03/13/24 15:17
Sodium 133 mmol/L (135-145) L 03/14/24 06:27
Potassium 3.3 mmol/L (3.5-5.1) L 03/14/24 06:27
Chloride 102 mmol/L (98-107) 03/14/24 06:27
Carbon Dioxide 28 mmol/L (22-30) 03/14/24 06:27
BUN 8 mg/dl (9-20) L 03/14/24 06:27
Creatinine 0.6 mg/dL (0.7-1.3) L 03/14/24 06:27
Calcium 8.2 mg/dl (8.4-10.2) L 03/14/24 06:27
Total Bilirubin 4.2 mg/dl (0.2-1.3) H 03/13/24 13:10
AST 53 U/L (17-59) 03/13/24 13:10
ALT 21 U/L (0-50) 03/13/24 13:10
Alkaline Phosphatase 160 U/L (38-126) H 03/13/24 13:10
Diagnostic Image Results:
Paracentesis: 5300mL removed, neg SBP
Prior GI Procedures:
EGD: 12/27/2022, EGD Dr. Weaver: Normal esophagus. Portal hypertensive gastropathy. Normal examined duodenum.
Colonoscopy: none
Assessment / Plan
-
The patient is a 58-year-old male with a past medical history significant for liver cirrhosis with history of alcohol abuse and hepatitis C status-post treatment and eradication last year, recent admission for respiratory complaints found to have
Klebsiella pneumonia, hypertension, GERD, current smoker, anxiety, who presented to the emergency room with complaints of increased abdominal distention found to have new onset ascites, with paracentesis removing 5300 mL. Fluid cell counts negative
for SBP. He notes ongoing abdominal distention and lower extremity edema, started on Lasix 40 mg outpatient by his PCP but continue with symptoms despite this. He denies any alcohol use in over 7 weeks. Has been treated for hepatitis C last year,
with eradication. Noted to be somewhat anemic with some reported of bright red blood per rectum although with no ongoing bleeding reports of melena. Pending ultrasound the abdomen with Doppler this morning.
Problem list:
-Abdominal distention secondary to ascites, paracentesis of 5300mL, negative for SBP
-Decompensated alcoholic/Hep C liver cirrhosis, MELD 3.0-21, MELD-Na 22
-Macrocytic anemia, new
-Chronic thrombocytopenia, stable
-Hypokalemia
-Chronic hyponatremia
-Hyperbilirubinemia
-Recent hospitalization diagnosed with Klebsiella pneumonia, lacunar infarcts found on MRI imaging
Other pertinent medical history:
-Chronic pain
-GERD
-Hypertension
-Anxiety
-Current cigarette smoker
Recommendations:
-Etiology of abdominal distention secondary to new onset ascites of unclear etiology. He denies any recent alcohol use. He does have new anemia as well with some intermittent rectal bleeding although currently denies and otherwise with no signs of
bleeding.
-Await ultrasound of the abdomen with Doppler
-Okay for diet after with low-sodium
-Monitor for ongoing signs of bleeding
-Trend H&H and transfuse for hemoglobin less than 7
-Will need to to likely adjust his diuretics given his new onset of ascites and lower extremity edema. Will review with Dr. Bunn, currently on furosemide 40 mg daily and spironolactone 25 mg daily (BP is stable)
-Trend MELD labs
-Has a somewhat chronically elevated bilirubin likely secondary to his decompensated cirrhosis but will rule out hemolysis as well as this was post to be done outpatient and may explain his anemia to some degree. LDH, reticulocyte count,
haptoglobin pending
-Advised to continue alcohol abstinence
-Okay to continue 81 mg of aspirin with history of lacunar infarct
-I did again reinforce the need for him to undergo a colonoscopy as he has never had one, now given his anemia. He is agreeable to this but prefers this to be done outpatient, to consider repeat EGD at that time as well as it has been over a year
since his last one and now with decompensated disease.
-Monitor electrolytes and replete as per hospitalist
-I did speak to the patient's and updated her on the plan
-Will follow
-
-
Thank you for consultation and allowing me to participate in the patient's care. Please call the research contracts supervisor GI physician during the after hours with any questions or concerns.
[2024-03-14] MEDS: LOW STRENGTH ASPIRIN 81 MG PO (08:14)
[2024-03-14] MEDS: VITAMIN B1 100 MG PO ×2 (08:14→20:01)
[2024-03-14] MEDS: ALDACTONE 25 MG PO ×2 (08:15→12:19)
[2024-03-14] MEDS: NICODERM TRANSDERMAL 14 MG TRANSDERM (08:15)
[2024-03-14] MEDS: LASIX 40 MG PO (08:15)
[2024-03-14] MEDS: PROTONIX 40 MG PO (08:15)
[2024-03-14] MEDS: LIDOCAINE 4% PATCH 2 PATCH TOPICAL (08:16)
[2024-03-14] MEDS: KCL 40 MEQ PO (09:09)
[2024-03-14 09:12] LABS: Reticulocyte Count 3.9 % (0.4-2.8)
[2024-03-14 11:05] LABS: Direct Bilirubin 1.3 mg/dl (0.0-0.4); LDH 261 U/L (120-246)
[2024-03-14 12:33] VITALS: BP 117/74
[2024-03-14] MEDS: XANAX 1 MG PO ×2 (13:21→20:02)
[2024-03-14 14:51] VITALS: BP 141/73
--- NOTE | 2024-03-14 15:37 | CM ---
Patient seen bedside, initial assessment completed. CM recognized patient from last admission. Per patient, he has been working with [facility] and using oxygen at night. Patient resides with his spouse in a two story home, has a walker from last
admission. PCP Dr. Goss, [facility]. Patient hopeful for discharge tomorrow. CM will send return of care referral to [facility]. CM will continued to follow for all discharge planning needs.
Plan; home with [facility].
--- NOTE | 2024-03-14 16:00 | W.PN.HOSP.TC ---
Today's Communication/Plan
-
All discussed with the patient and his nursing career development engineer
Discussed with the nurse
Assessment / Plan
Assessment / Plan
Physical exam:
General: Pale looking awake, alert and oriented x3, not in distress and holds appropriate conversation.
HEENT: No active discharge, ecchymosis or bruising, moist lips, tongue and mucous membrane.
Eyes: No discharge or red conjunctiva, no nystagmus, pupils are reactive and equal
Neck:Supple, no JVD no bruit no goiter.
Respiratory: Normal AP contour and diameter, normal chest wall movement, normal respiratory effort, no respiratory distress,
Lungs: Good air entry bilaterally, no wheezing or rhonchi, no rales or crackles
Heart: S1, S2 regular, normal rate, no added sound.
Gastrointestinal: Distended and positive for ascites, mild, better than yesterday according to the patient paracentesis, positive bowel sounds, soft, nontender, no guarding or rigidity or organomegaly
Musculoskeletal: , no chest wall abnormality or tenderness. All joints and extremities have good range of motion, no muscle tenderness or any joint swelling or tenderness.
Extremities: Lower extremities moderate pitting edema, good peripheral pulses, good range of motion
Skin: Warm and dry, no ulceration, normal color.
Neurological: Awake, alert and oriented x3, speech clear and comprehensive, good muscle tone, normal sensory and motor function
Psychiatric: Normal mood, normal thought and judgment, normal affect,
Alcohol Cirrhosis with Ascites
Status post paracentesis yesterday: The fluid removed
Lasix and Aldactone
GI input appreciated
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
Anemia
report of BRBPR (does not fill toilet bowel)
-repeat Hg this evening
-likely hemorrhoidal bleeding which according to the patient's seen with the ascites was clearly need to back pressure on the hemorrhoid, since yesterday had no bleeding
-blood consent signed in ER
-F/U iron studies, B12, they still pending
-GI consult, they recommended outpatient workup
-CREPE BOX TENDER Protonix
Hypokalemia: Potassium 3.3
Replace and reach
Hypokalemia
Hypomagnesemia, replaced and recheck
-replete
Hx CVA
-CREPE BOX TENDER aspirin
Hx Alcohol Use
-patient reports being sober since last admission
Hx Tobacco use
-nictoine patch
Advised about quitting smoking and not going back to alcohol
Anxiety
Take Xanax 1 mg twice daily at home scheduled, reorder as she is more awake and alert.
Anticipated Discharge: 24 - 48 hours
Subjective/Interval History
-
Date of Service: March 14, 2024
Seen and examined his caregiver nurse at the bedside, feels abdominal pain with nausea, vomiting and abdominal distention is much better, no fever or chill or cough or congestion, no headache or vision change.
Urinating well with adjustment of medication.
-Some fresh bleeding before with the site is likely related to hemorrhoids and a couple stools been positive
GI recommended outpatient endoscopies.
Objective Data
-
Labs:
Laboratory Results
03/14/24
06:27
WBC 3.6 L
Hgb 8.7 L
Hct 25.1 L
Plt Count 67 L
Sodium 133 L
Potassium 3.3 L
Chloride 102
Carbon Dioxide 28
BUN 8 L
Creatinine 0.6 L
Glucose 98
Calcium 8.2 L
Vital Signs:
Vital Signs
Temp Pulse Resp BP Pulse Ox
98.1 F 99 18 141/73 96
03/14/24 14:51 03/14/24 14:51 03/14/24 14:51 03/14/24 14:51 03/14/24 14:51
I&O
03/13/24 03/14/24 03/15/24
07:59 07:59 07:59
Intake Total 510 / 510
Balance 510 / 510
Review of Systems
-
All other systems: Reviewed and negative
[2024-03-14 19:30] VITALS: BP 163/78
[2024-03-14 23:15] VITALS: BP 129/79
[2024-03-15 03:15] VITALS: BP 132/81
[2024-03-15 06:00] VITALS: BMI 26.5
[2024-03-15 07:45] LABS: Blood Urea Nitrogen 8 mg/dl (9-20); Calcium 8.8 mg/dl (8.4-10.2); Carbon Dioxide 26 mmol/L (22-30); Chloride 102 mmol/L (98-107); Estimated Creatinine Clearance > 125 ml/min; Glucose 115 mg/dl (70-99); Magnesium 1.9 mg/dl (1.6-2.3); Potassium 3.7 mmol/L (3.5-5.1); Sodium 133 mmol/L (135-145); eGFR > 60.00
[2024-03-15 07:55] VITALS: BP 138/74
[2024-03-15] MEDS: PROTONIX 40 MG PO (07:57)
[2024-03-15] MEDS: LOW STRENGTH ASPIRIN 81 MG PO (07:57)
[2024-03-15] MEDS: VITAMIN B1 100 MG PO (07:57)
[2024-03-15] MEDS: NICODERM TRANSDERMAL 14 MG TRANSDERM (07:58)
[2024-03-15] MEDS: XANAX 1 MG PO (07:58)
[2024-03-15] MEDS: ALDACTONE 50 MG PO (07:58)
[2024-03-15] MEDS: LASIX 40 MG PO (07:58)
[2024-03-15] MEDS: LIDOCAINE 4% PATCH 2 PATCH TOPICAL (08:03)
--- NOTE | 2024-03-15 09:33 | W.PN.GI.CBS2 ---
Addendum entered and electronically signed by Charlotte Ruth Do, MD 03/15/24 11:08:
I saw and examined the patient.
The PC MAINTENANCE TECHNICIAN's note was reviewed and I agree with the note.
Comment: He feels well. Denies abd pain, nausea/vomiting. Exam obese abdomen, NTTP, bleeding over nose with bandaid. Labs reviewed Hbg stable pancytopenia
Recommendations
- Ok from GI perspective for hosp d/c today
- Please give him rx for aldactone 50mg daily, lasix 40mg daily
- He has lab slip CMP in 1wk
- OP FU with Mary VELEZ in GI office 04/11. Consider EGD/colon outpatient basis
- Low salt diet and strict ETOH abstinence
All questions answered
Above info relayed to hospitalist and RN
Will sign off please call for questions.
Original Note:
Today's Communication / Plan
-
Await CBC with smear today
Assessment / Plan
-
The patient is a 58-year-old male with a past medical history significant for liver cirrhosis with history of alcohol abuse and hepatitis C status-post treatment and eradication last year, recent admission for respiratory complaints found to have
Klebsiella pneumonia, hypertension, GERD, current smoker, anxiety, who presented to the emergency room with complaints of increased abdominal distention found to have new onset ascites, with paracentesis removing 5300 mL. Fluid cell counts negative
for SBP. He notes ongoing abdominal distention and lower extremity edema, started on Lasix 40 mg outpatient by his PCP but continue with symptoms despite this. He denies any alcohol use in over 7 weeks. Has been treated for hepatitis C last year,
with eradication. Noted to be somewhat anemic with some reported of bright red blood per rectum although with no ongoing bleeding reports of melena. Pending ultrasound the abdomen with Doppler this morning.
Ultrasound abdomen with Dopplers 03/14/24:
Mild ascites, slightly increased.
Sonographic features of the liver consistent with cirrhosis.
Minimal increased splenomegaly.
Patent vasculature, within normal limits.
Problem list:
-Abdominal distention secondary to ascites, paracentesis of 5300mL, negative for SBP
-Decompensated alcoholic/Hep C liver cirrhosis, MELD 3.0-21,
-Macrocytic anemia, new -> hemoglobin 8.7, B12 and folate within normal limit. Brown Heme pos stool.
-Chronic thrombocytopenia, stable-> 67
-Hypokalemia-> improved 3.7, on Lasix 40 mg daily and Aldactone increased to 50 g daily
-Chronic hyponatremia-> stable 133
-Hyperbilirubinemia-> 2.7
-Recent hospitalization diagnosed with Klebsiella pneumonia, lacunar infarcts found on MRI imaging
-Hx Hep C s/p tx with Epclusa with SVR
Other pertinent medical history:
-Chronic pain
-GERD
-Hypertension
-Anxiety
-Current cigarette smoker
Recommendations:
-Etiology of abdominal distention secondary to new onset ascites of unclear etiology. He denies any recent alcohol use. He does have new anemia as well with some intermittent rectal bleeding although currently denies and otherwise with no signs of
bleeding.
-Ultrasound of the abdomen with Doppler negative for PVT.
-Continue 2 g sodium diet
-Continue Lasix 40 mg daily and Aldactone now increased to 50 mg po daily. Patient given Lab slip for repeat CMP in 1 week.
-AFP pending
-Has a somewhat chronically elevated bilirubin likely secondary to his decompensated cirrhosis but will rule out hemolysis as well as this was post to be done outpatient and may explain his anemia to some degree. LDH 261 reticulocyte count 3.9
haptoglobin pending. Rechecking CBC with smear now.
-Advised to continue alcohol abstinence
-Okay to continue 81 mg of aspirin with history of lacunar infarct
-I did again reinforce the need for him to undergo a colonoscopy as he has never had one, now given his anemia as well as OB pos stool. He is agreeable to this but prefers this to be done outpatient, to consider repeat EGD at that time as well as
it has been over a year since his last one and now with decompensated disease. For variceal screening.
-Follow-up appointment made with ROSIE Galaviz on 04/11/2024 at 11:30 AM
Subjective
Subjective
Date of Service: March 15, 2024
Patient had BM this am, states it was a little harder but no blood. Denies any abdominal pain. Status post paracentesis on 03/13/2024 with 5 L withdrawn negative for SBP. On Lasix 40 mg daily and Aldactone increased to 50 mg daily. Follows on a
low-sodium diet.
Objective
Data Reviewed
Laboratory Data:
Laboratory Results
03/14/24 06:27
03/15/24 06:49
Laboratory Results
PT 18.5 Sec (11.4-14.6) H 03/13/24 15:17
INR 1.56 03/13/24 15:17
Magnesium 1.9 mg/dl (1.6-2.3) 03/15/24 06:49
Total Bilirubin 4.2 mg/dl (0.2-1.3) H 03/13/24 13:10
AST 53 U/L (17-59) 03/13/24 13:10
ALT 21 U/L (0-50) 03/13/24 13:10
Alkaline Phosphatase 160 U/L (38-126) H 03/13/24 13:10
Vital Signs and I&O:
Vital Signs
Temp Pulse Resp BP Pulse Ox
98.1 F 104 18 138/74 98
03/15/24 07:55 03/15/24 07:55 03/15/24 07:55 03/15/24 07:55 03/15/24 07:55
I&O
03/14/24 03/15/24 03/16/24
06:59 06:59 06:59
Intake Total 510 / 510 1440 / 1440
Balance 510 / 510 1440 / 1440
Physical Exam
Physical Exam
HEENT: Anicteric and Other (Tip of nose with excoriation mildly bleeding. Lesion noted. RN bringing dressing)
Cardiology: Normal Sinus Rhythm
Pulmonary: Clear (Anterior)
GI: Soft, Non Distended, Non Tender, Fluid Wave (Mild) and Normal Bowel Sounds
Extremities: Edema (Trace edema on right lower extremity)
Neuro: Non Focal
[2024-03-15 10:10] LABS: Hemoglobin 8.7 g/dL (13.0-18.0); Mean Corp Hgb Conc. 34.8 g/dL (33.0-37.0); Mean Corpuscular Hgb 33.7 pg (27.0-31.0); Mean Corpuscular Volume 96.9 fL (80.0-94.0); Mean Platelet Volume 10.4 fL (7.4-10.4); Nucleated Red Blood Cells % 0 % (-); Platelet Count 62 10^3/uL (130-400); Red Blood Cell Count 2.58 10^6/uL (4.70-6.10); Red Cell Dist. Width 12.8 % (11.5-14.5); White Blood Cell Count 3.4 10^3/uL (4.8-10.8)
[2024-03-15 11:48] VITALS: BP 142/72
[2024-03-15 11:49] LABS: Absolute Neutrophils -Man Diff 2.5 10^3/uL (1.4-6.5); Band Neutrophils 1 % (0-3); Eosinophils 1 % (0-6); Lymphocytes 18 % (20-51); Monocytes 5 % (2-9); Platelets Checked YES; Segmented Neutrophils 75 % (42-75)
[2024-03-15 11:50] LABS: Normal RBC Morphology No; Tear Drop Red Blood Cells FEW
[2024-03-15 11:52] LABS: Ovalocytes FEW; Total Cells Counted 100
--- NOTE | 2024-03-15 12:46 | W.DCSUMMARY ---
Discharge Summary
Discharge Data
Date of Admission: 03/13/24
Date of Discharge: 03/15/24
-
Pending Results: No
Hospital Course
Discharging Physician : Dr. Tommy Delgado
Disposition :
Primary care physician :
Principal Discharge diagnosis :
1. Alcoholic liver cirrhosis
2. History of hepatitis C
3. Ascites secondary to liver cirrhosis
4. Pancytopenia secondary to liver cirrhosis
5. Hemorrhoid with hemorrhoidal bleeding, resolved after paracentesis, seen by GI therefore need outpatient follow-up
6. Hypokalemia resolved
7. History of stroke
8. History of alcohol abuse has been sober for the last few weeks
9. Anxiety takes Ativan 1 mg twice a day
10. Smoking.
History of present illness:
Patient is a 58 y/o male past medical history of Hepatitis C s/p treatment and alcoholic cirrhosis who presents to the ED for worsening abdominal distension x 2 weeks. He previously was taking Lasix but states it was stopped for a few days, but then
restarted about a week ago due to increasing lower extremity edema. He reports improvement in his leg since restarting the Lasix, but no change in the abdominal distention. He denies N/V/D/C and states his bowel movements are regular but he has
intermittent episodes of bright red blood upon wiping and few drops in the toilet. He denies fever, SOB, coughing, or changes in his appetite.
Hospital Course :
So patient presented to the hospital with known history of liver cirrhosis attributed to alcohol abuse and hepatitis C in the past, complaining of increased abdominal distention and GERD for the last couple of week progressively causing some tension
and leading to shortness of breath worse with any kind of exertional activity also admit for the few day prior he nausea and hemorrhoids having more hemorrhoidal bleeding and he felt his bulging out more, also notices abdominal wall hernia was
bigger.
Denies any fever or chill or cough or congestion no abdominal pain or any other particular symptoms,
Seen by GI and also IR consulted for paracentesis which was done on March 13 and total 5.3 L fluid removed and workup were negative's for subacute bacterial peritonitis.
Overall her symptoms improved including abdominal distention, shortness of breath and hemorrhoidal bleeding also he noticed improvement in his abdominal wall hernia.
No any other discomfort, his condition discussed with his family on daily basis, discussed with GI, and was okay from the point of view to be discharged and have outpatient follow-up and checking CBC and CMP and address her results with GI and
primary care.
Advised about not going back to alcohol also stop smoking risks of the continuation explained to him in detail.
Per GI recommendation the doses of Aldactone increased from 25 daily to 50 daily and Lasix will be continued.
Changes to Home Medications: Yes
Discharge Medications:
DC Medications w/original date entered in [facility]
tramadol 50 mg tablet 100 mg PO Q8HPRN PRN severe pain 02/03/24
albuterol sulfate 90 mcg/actuation aerosol inhaler 2 puff inhalation R Q6HPRN PRN shortness of breath or wheezing 03/13/24
alprazolam 1 mg tablet 1 mg PO BID anxiety 03/13/24
aspirin 81 mg chewable tablet (Children's Aspirin) 81 mg PO DAILY Blood Clot Prevention/Tx 03/13/24
furosemide 40 mg tablet (Lasix) 40 mg PO DAILY Fluid Retention/Swelling 03/13/24
lidocaine 4 % topical patch 2 patch topical DAILY right knee and shoulder 03/13/24
nicotine 14 mg/24 hr daily transdermal patch 14 mg transdermal DAILY smoking cessation 03/13/24
pantoprazole 40 mg tablet,delayed release 40 mg PO DAILY Gastrointestinal Issue 03/13/24
thiamine HCl (vitamin B1) 100 mg tablet 100 mg PO BID Supplement 03/13/24
spironolactone 50 mg tablet 50 mg PO DAILY #30 tabs 03/15/24
Home Medication Changes
Spironolactone dose increased from 25 to 50 mg
Pending Results: No
Additional Pending Results:
Physical exam:
General: Awake, alert and oriented x3, not in distress and holds appropriate conversation.
HEENT: No active discharge, ecchymosis or bruising, moist lips, tongue and mucous membrane.
Eyes: No discharge or red conjunctiva, no nystagmus, pupils are reactive and equal
Neck:Supple, no JVD no bruit no goiter.
Respiratory: Normal AP contour and diameter, normal chest wall movement, normal respiratory effort, no respiratory distress,
Lungs: Good air entry bilaterally, no wheezing or rhonchi, no rales or crackles
Heart: S1, S2 regular, normal rate, no added sound.
Gastrointestinal: Mild ascites appreciated, positive bowel sounds, soft, nontender, no guarding or rigidity or organomegaly
Musculoskeletal: , no chest wall abnormality or tenderness. All joints and extremities have good range of motion, no muscle tenderness or any joint swelling or tenderness.
Extremities: Mild lower extremities edema pitting edema, good peripheral pulses, good range of motion
Skin: Warm and dry, no ulceration, normal color.
Neurological: Awake, alert and oriented x3, , speech clear and comprehensive, good muscle tone, normal sensory and motor function
Psychiatric: Normal mood, normal thought and judgment, normal affect,
Condition on discharge: Awake, alert and oriented x3, answer question properly, able to make own decision and take care of activities of daily living, speech clear and comprehensive, continent of the bowel and bladder, ambulate without hearing aid assistant,
goes home where lives with the family independently.
Discharge Plan
-
Patient Disposition: Home (Routine Discharge)
Discharge Diagnosis/Procedures: liver cirrhosis
Condition: Fair
Diet: Low Fat, Low Cholesterol, Low Sodium and Restrict fluids to 64 oz
Other Services: VN, PT and OT
Activity Restrictions/Additional Instructions:
The dose of the spironolactone Aldactone increased from 50 to 25 mg daily.
Fluid restriction to around a liter and 1/2 to 2 L instructed above, and need to weigh yourself daily beginning 2 to 3 pounds in 1 day or 5 to 7 pound in a week need to call primary gastroenterology because with fluid reaccumulation.
If abdominal girth or swelling increases need to call bobbin collector.
Need regular checking of renal function, liver function and electrolytes as well as complete blood picture with some of them ordered by GI, need to be ordered by primary care and follow-up as an outpatient.
Monitor for any kind of bleeding if any happened need to come back to the hospital.
Referrals:
Mary Harrison PA-C [Specified Professional Personl] - 04/11/24 11:30 am (Please make sure to have your lab work done 1 week after DC as we increased your diuretics. (Aldactone) )
Drake Goss DO [Family Provider] -
Prescriptions:
New
spironolactone 50 mg Tablet
50 mg PO DAILY Qty: 30 1RF
Continued
tramadol 50 mg Tablet
100 mg PO Q8HPRN PRN (Reason: severe pain)
furosemide [Lasix] 40 mg Tablet
40 mg PO DAILY
lidocaine 4 % adhesive patch,medicated
2 patch topical DAILY
albuterol sulfate 90 mcg/actuation HFA aerosol inhaler
2 puff inhalation R Q6HPRN PRN (Reason: shortness of breath or wheezing)
nicotine 14 mg/24 hr patch 24 hour
14 mg transdermal DAILY
alprazolam 1 mg tablet
1 mg PO BID
thiamine HCl (vitamin B1) 100 mg tablet
100 mg PO BID
pantoprazole 40 mg tablet,delayed release (DR/EC)
40 mg PO DAILY
aspirin [Children's Aspirin] 81 mg tablet,chewable
81 mg PO DAILY
Discontinued
spironolactone 25 mg Tablet
25 mg PO DAILY
Discharge Orders:
Discharge Patient (As Directed); Ordered 03/15/24
Ordered By: Tommy Delgado
Discharge Date and Time
Discharge Date/Time: 03/15/24 14:20
Print Language: TRISTANIAN
[2024-03-15 20:18] LABS: Haptoglobin <10 mg/dL (30-200)
== END 2024-03-15 14:20 | disposition home or self-care (01) | DRG 433 ==
LOC: 3 WEST ACU 15:01
PROVIDERS: Nurse Practitioner; Physician Assistant Medical; Radiology Diagnostic Radiology; Registered Nurse; ADMITTING PHYSICIAN Student in an Organized Health Care Education/Training Program; ATTENDING PHYSICIAN Internal Medicine; CONSULT PHYSICIAN Internal Medicine Gastroenterology; EMERGENCY PHYSICIAN Emergency Medicine; FAMILY PHYSICIAN Internal Medicine
PROC: 0W9G3ZZ Drainage of Peritoneal Cavity, Percutaneous Approach (ICD-10-PCS; 2024-03-13)
DX: K70.31 Alcoholic cirrhosis of liver with ascites (principal); D61.818 Other pancytopenia; D53.9 Nutritional anemia, unspecified; E87.6 Hypokalemia; E83.42 Hypomagnesemia; K31.89 Other diseases of stomach and duodenum; J44.9 Chronic obstructive pulmonary disease, unspecified; I10 Essential (primary) hypertension; G47.00 Insomnia, unspecified; F41.9 Anxiety disorder, unspecified; F17.210 Nicotine dependence, cigarettes, uncomplicated; K21.9 Gastro-esophageal reflux disease without esophagitis; K64.9 Unspecified hemorrhoids
CPT/HCPCS: 88305; 49083; 76700; 80048; 80053; 82042; 82105; 82150; 82248; 82607; 82728; 82746; 83010; 83540; 83550; 83615; 83735; 84132; 84157; 85018; 85025; 85027; 85045; 85610; 86850; 86900; 86901; 87015; 87070; 87205; 88112; 88341; 88342; 89051; 93005; 93975; 99285; P9047

== ENCOUNTER → 2024-03-19 06:55 | Outpatient (REF) | payer BC, SELFPAY ==
[2024-03-19 10:34] LABS: ALT (SGPT) 26 U/L (0-50); AST (SGOT) 59 U/L (17-59); Albumin 2.9 g/dl (3.5-5.0); Alkaline Phosphatase 190 U/L (38-126); Blood Urea Nitrogen 10 mg/dl (9-20); Calcium 8.8 mg/dl (8.4-10.2); Carbon Dioxide 30 mmol/L (22-30); Chloride 100 mmol/L (98-107); Glucose 106 mg/dl (70-99); Potassium 3.8 mmol/L (3.5-5.1); Sodium 135 mmol/L (135-145); Total Bilirubin 3.5 mg/dl (0.2-1.3); Total Protein 5.5 g/dl (6.3-8.2); eGFR > 60.00
== END ==
LOC: HWLAB 06:55
PROVIDERS: ATTENDING PHYSICIAN Internal Medicine Gastroenterology; FAMILY PHYSICIAN Internal Medicine
DX: K70.31 Alcoholic cirrhosis of liver with ascites (principal)
CPT/HCPCS: 36415; 80053

== ENCOUNTER 2024-04-11 05:14 | Inpatient (IN) | payer BC, SELFPAY ==
[2024-04-10 20:31] VITALS: BP 145/73
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
[2024-04-10 23:57] LABS: % Basophils 0.7 % (0-2); % Eosinophils 2.4 % (0-6); % Immature Granulocytes 0.3 % (0-0.5); % Lymphocytes 21.4 % (20.5-51.1); % Monocytes 8.1 % (1.7-9.3); % Neutrophils 67.1 % (42.2-75.2); Absolute Eosinophils 0.1 10^3/uL (0-0.7); Absolute Lymphocytes 1.3 10^3/uL (1.2-3.4); Absolute Monocytes 0.5 10^3/uL (0.1-0.6); Mean Corp Hgb Conc. 34.7 g/dL (33.0-37.0); Mean Corpuscular Hgb 32.4 pg (27.0-31.0); Mean Corpuscular Volume 93.4 fL (80.0-94.0); Mean Platelet Volume 9.8 fL (7.4-10.4); Nucleated Red Blood Cells % 0 % (-); Platelet Count 101 10^3/uL (130-400); Red Blood Cell Count 2.13 10^6/uL (4.70-6.10); Red Cell Dist. Width 14.1 % (11.5-14.5); White Blood Cell Count 5.9 10^3/uL (4.8-10.8)
[2024-04-11] VITALS (36 sets, daily range): BP systolic 93–157; BP diastolic 46–137; O2SAT 94; BMI 28.7
[2024-04-11 00:03] LABS: Hematocrit 19.9 % (39.0-52.0); Hemoglobin 6.9 g/dL (13.0-18.0)
[2024-04-11 00:08] LABS: INR 1.44; PT 17.4 Sec (11.4-14.6)
[2024-04-11 00:11] LABS: Lactic Acid 1.2 mmol/L (0.7-2.0)
[2024-04-11 00:12] LABS: ALT (SGPT) 24 U/L (0-50); AST (SGOT) 58 U/L (17-59); Albumin 2.6 g/dl (3.5-5.0); Alkaline Phosphatase 147 U/L (38-126); Blood Urea Nitrogen 21 mg/dl (9-20); Calcium 8.1 mg/dl (8.4-10.2); Carbon Dioxide 29 mmol/L (22-30); Chloride 98 mmol/L (98-107); Glucose 110 mg/dl (70-99); Lipase 330 U/L (23-300); Potassium 3.8 mmol/L (3.5-5.1); Sodium 131 mmol/L (135-145); Total Bilirubin 2.7 mg/dl (0.2-1.3); eGFR > 60.00
[2024-04-11 00:23] LABS: NT-proBNP 218 pg/ml; Troponin I 0.018 ng/ml
[2024-04-11] MEDS: PROTONIX IV 80 MG IV (00:52)
--- NOTE | 2024-04-11 04:52 | HPS.HSE ---
Family Physician
-
Family Physician: Drake Goss
Chief Complaint
-
Abdominal distention
History of Present Illness
Patient is a 58y M with PMH significant for cirrhosis who presents to ED complaining of abdominal distention. Patient complains of feeling SOB and generally weak / fatigued. He notes that his abdomen is much more distended. Patient denies any
N/V. he denies diarrhea or black / bloody stool. He denies any fevers / chills. Patient does admit that he had a few drinks over 'the ' - confirmed this was .
He has had paracentesis in the past - most recently was 03/13/24 for 5300cc.
Medical History
Past Medical History
Past Medical History: Reports Other
Additional Past Medical History:
Multiple Lacunar Infarcts
COPD
Alcohol Use Disorder
Alcoholic Cirrhosis
Hepatitis C s/p Treatment
Hypertension
Insomnia
Chronic Right Upper Ext Pain
Past Surgical History: Reports Other
Social History
Tobacco: Former Smoker
Alcohol: Former
Family History
Family History: Not pertinent
Allergies / Home Medications
Allergies reflects when Allergies were last updated in [employer].
Home Medications with original date entered in [employer]
Allergy/Medication List:
Allergies
Allergy/AdvReac Type Severity Reaction Status Date / Time
No Known Allergies Allergy Verified 04/10/24 20:33
Home Medications
tramadol 50 mg tablet 100 mg PO Q8HPRN PRN severe pain 02/03/24
albuterol sulfate 90 mcg/actuation aerosol inhaler 2 puff inhalation R Q6HPRN PRN shortness of breath or wheezing 03/13/24
alprazolam 1 mg tablet 1 mg PO BID anxiety 03/13/24
aspirin 81 mg chewable tablet (Children's Aspirin) 81 mg PO DAILY Blood Clot Prevention/Tx 03/13/24
furosemide 40 mg tablet (Lasix) 40 mg PO DAILY Fluid Retention/Swelling 03/13/24
lidocaine 4 % topical patch 2 patch topical DAILY right knee and shoulder 03/13/24
nicotine 14 mg/24 hr daily transdermal patch 14 mg transdermal DAILY smoking cessation 03/13/24
pantoprazole 40 mg tablet,delayed release 40 mg PO DAILY Gastrointestinal Issue 03/13/24
thiamine HCl (vitamin B1) 100 mg tablet 100 mg PO BID Supplement 03/13/24
spironolactone 50 mg tablet 50 mg PO DAILY #30 tabs 03/15/24
Review of Systems
-
History Source: Patient
A 12 point ROS was completed and negative except as noted: Yes
Constitutional: Reports Weight Gain and Fatigue; Denies Fever or Chills
EENT: Denies Sore Throat
Respiratory: Reports Trouble Breathing; Denies Cough or Hemoptysis
Cardiac: Denies Chest Pain or Palpitations
Abdomen/GI: Reports Abdominal Pain; Denies Nausea, Vomiting, Diarrhea, Bloody Stools or Black Stools
: Denies Dysuria or Frequency
Musculoskeletal: Denies Joint Pain or Edema
Neurological: Reports Dizzy; Denies Headache
Psych: Denies Depression or Anxiety
Physical Exam
Vital Signs
Vital Signs
Temp Pulse Resp BP Pulse Ox
99 F 103 22 129/67 96
04/11/24 02:47 04/11/24 04:30 04/11/24 04:30 04/11/24 04:30 04/11/24 04:30
Physical Exam
General: Other (58y M somewhat disoriented when he wakes from sleep. Not in acute distress.)
HEENT: Moist mucous membranes
Respiratory: Other (Decreased BS at bases.)
Cardiac: S1/S2, Regular Rhythm and Murmur (II/ MACHO)
GI: Other (Markedly distended abdomen. No tenderness.)
Musculoskeletal: No Clubbing, No Cyanosis and No Edema
Neuro: Awake, Alert and Nonfocal/grossly intact
Laboratory Results
-
04/10/24 23:47
04/10/24 23:47
Laboratory Results
PT 17.4 Sec (11.4-14.6) H 04/10/24:47
INR 1.44 04/10/24:47
Lactic Acid 1.2 mmol/L (0.7-2.0) 04/10/24:47
Total Bilirubin 2.7 mg/dl (0.2-1.3) H 04/10/24 23:47
AST 58 U/L (17-59) 04/10/24:47
ALT 24 U/L (0-50) 04/10/24:47
Alkaline Phosphatase 147 U/L (38-126) H 04/10/24:47
Troponin I 0.018 ng/ml 04/10/24:47
Lipase 330 U/L (23-300) H 04/10/24 23:47
Impression/Plan
-
Patient is a 58y M with PMH significant for cirrhosis who presents to ED complaining of abdominal distention.
Alcoholic Cirrhosis with Ascites and Thrombocytopenia
-Admit for further evaluation and treatment.
-Continue usual diuretic regimen and follow I/Os, weights, etc
-Consult IR for paracentesis
-Encourage abstinence from EtOH.
Acute on Chronic Macrocytic Anemia with Heme-Positive Stool
-Transfusion ordered in the ED. Stool brown / heme pos.
-IV PPI infusion for now.
-IV CTX empirically.
-GI evaluation for additional recommendations.
-EGD in Dec 2022 with portal hypertensive gastropathy, but no varices
-Continue to trend Hgb
-Transfuse additional PRBCs if needed.
ASCVD / CVA
-Continue aspirin
COPD without acute exacerbation
-Continue nebs prn
Hypertension
-Continue spironolactone
Insomnia
-Continue alprazolam PRN
Chronic Right Upper Ext Pain
-Continue tramadol prn
-Continue lidocaine patch
DVT Proph: SCDs
Code Status: Full Code
[2024-04-11 06:17] LABS: Mean Corp Hgb Conc. 33.5 g/dL (33.0-37.0); Mean Corpuscular Hgb 31.6 pg (27.0-31.0); Mean Corpuscular Volume 94.2 fL (80.0-94.0); Mean Platelet Volume 9.5 fL (7.4-10.4); Platelet Count 78 10^3/uL (130-400); Red Blood Cell Count 2.06 10^6/uL (4.70-6.10); Red Cell Dist. Width 16.4 % (11.5-14.5); White Blood Cell Count 4.3 10^3/uL (4.8-10.8)
[2024-04-11 06:19] LABS: ALT (SGPT) 20 U/L (0-50); AST (SGOT) 49 U/L (17-59); Albumin 2.1 g/dl (3.5-5.0); Alkaline Phosphatase 103 U/L (38-126); Blood Urea Nitrogen 21 mg/dl (9-20); Calcium 7.9 mg/dl (8.4-10.2); Carbon Dioxide 30 mmol/L (22-30); Chloride 100 mmol/L (98-107); Direct Bilirubin 0.8 mg/dl (0.0-0.4); Glucose 111 mg/dl (70-99); Magnesium 1.9 mg/dl (1.6-2.3); Phosphorus 3.8 mg/dl (2.5-4.5); Potassium 3.7 mmol/L (3.5-5.1); Sodium 132 mmol/L (135-145); Total Protein 4.2 g/dl (6.3-8.2); eGFR > 60.00
[2024-04-11 06:30] LABS: Hematocrit 19.4 % (39.0-52.0); Hemoglobin 6.5 g/dL (13.0-18.0)
[2024-04-11] MEDS: PROTONIX 100 IV ×3 (08:32→21:38)
[2024-04-11] MEDS: LASIX 40 MG PO (08:35)
[2024-04-11] MEDS: STERILE WATER FOR INJECTION 10 ML IV (08:43)
[2024-04-11] MEDS: ROCEPHIN 1000 MG IV (08:43)
[2024-04-11] MEDS: ALDACTONE 50 MG PO (08:44)
[2024-04-11] MEDS: FLEXBUMIN 50 IV (11:23)
[2024-04-11] MEDS: FLEXBUMIN 100 IV (12:28)
--- NOTE | 2024-04-11 12:41 | CON.GI ---
Addendum entered and electronically signed by Presley Gaviria MD 04/11/24 15:37:
I saw and examined the patient.
The FLEXOGRAPHIC PRINTING MACHINIST or PA's note was reviewed and I agree with the note.
Comment:
Pt Is a 58-year-old man with a history of cirrhosis and alcohol abuse as well as hep C with prior treatment. He was admitted with increasing abdominal distention requiring paracentesis. He also had a low hemoglobin from his baseline without overt
bleeding. He does not have any confusion. mildly elevated AFP
icteric
ascites
nontender abd
impression
ascites
cirrhosis
anemia
increased AFP
plan:
MRI liver
follow hgb
s/p tap f/u fluid parameters (did get albumin)
will need eventual egd/colon
follow lfts
ceftriaxone
Addendum entered and electronically signed by MARCIA Cornejo 04/11/24 14:37:
Continue Ceftiaxone as well at this time daily until paracentesis fluid resulted and EGD hopefully performed.
Original Note:
Consultation
-
Date/Time Consultation Requested: 04/11/24 0551
Date/Time Consultation Performed: 04/11/24 1230
Requesting Provider: Dr. Aguila
Performing Provider: Dr. Gaviria/MARCIA Campo
Reason for Consultation: cirrhosis, ascites, anemia
Medical History
Chief Complaint / HPI
Chief Complaint: increased abdominal distention
History of Present Illness:
58-year-old male with a past medical history significant for liver cirrhosis with history of alcohol abuse and hepatitis C status-post treatment and eradication last year, Klebsiella pneumonia, hypertension, GERD, current smoker, anxiety, who
presented to the emergency room with complaints of increased abdominal distention and lower extremity edema. We are being asked to evaluate for evaluation of ascites and anemia. The patient has been followed by Dr. Weaver in the office for
management of hepatitis C and alcoholic liver cirrhosis with ascites, last seen in the office in July 2023. He was treated with Epclusa for 8 weeks (was supposed to be 12 weeks but he did not take the full course) for hep C and eradication has
been confirmed based on hep C testing. He did have somewhat of a chronically elevated bilirubin and LDH, haptoglobin, and reticulocyte count were ordered, hemolysis was ruled out. The patient was last seen in the hospital in March 2024 with ascites.
He had an ultrasound with Doppler that was negative for PVT on last admission. During that time he had a paracentesis (negative for SBP) and his diuretics were increased. He is currently on Lasix 40 mg daily and Aldactone 50 mg p.o. daily. He was
to follow 2 g sodium diet weigh himself daily. He states that he gained approximately 5 pounds within the last week. We received a call from his visiting nurse who states he had bilateral lower extremity edema. The patient states that he had
increasing work with breathing over the past week. At that time the patient denied any recent alcohol use however tells me that over the weekend he had 'a couple shots'. He is on aspirin 81 mg with his history of lacunar infarct. He also states
that he has intermittent bright red blood per rectum upon wiping. We have been urging him to undergo colonoscopy as he has never had one in the past, he declined him as an inpatient and wanted to perform this as an outpatient. He was also to have
an EGD as an outpatient as the last time was over a year especially given now he has decompensated liver disease and needs one for variceal screening. Currently the patient presents with a hemoglobin of 6.9 down from hemoglobin of 8.7 on 03/15/2024.
He did receive 2 units packed red blood cells. Repeat hemoglobin is pending. WBC 4.3, platelets 78, INR 1.44, sodium 132, potassium 3.7, BUN 21, creatinine 0.9, total bilirubin 3.0, direct 0.8, AST 49, ALT 20, alk phos 103, albumin 2.1, lipase
330. Patient had a paracentesis this morning and they removed 5700 mL, he is receiving albumin at this time. Analysis of fluid is pending. The patient denies any fevers, chills, nausea, vomiting, melena, dysphagia or odynophagia. He denies any
early satiety or unintentional weight loss.
Past Medical History
Past Medical History: COPD, CVA, HTN and Other (EtOH abuse, hepatitis C status posttreatment and eradication, decompensated alcoholic liver cirrhosis with ascites, chronic pain, current cigarette smoker, chronic thrombocytopenia, chronic
hyponatremia, insomnia)
Past Surgical History: Other (Tooth extraction, spinal fluid leak with patching 2001)
Social History
Tobacco: Smoker
Alcohol: Chronic Alcoholic
Drug: None
Personal:
Living: With Family
Family History
Family History: Other (No family history gastrointestinal malignancy or IBD)
Allergies / Home Medications
Allergy/AdvReac Type Severity Reaction Status Date / Time
No Known Allergies Allergy Verified 04/10/24 20:33
�Medication �Instructions �Recorded
tramadol 50 mg tablet 100 mg PO HSPRN PRN severe pain 02/03/24
albuterol sulfate 90 mcg/actuation 2 puff inhalation R Q6HPRN PRN 03/13/24
aerosol inhaler shortness of breath or wheezing
alprazolam 1 mg tablet 1 mg PO BID anxiety 03/13/24
aspirin 81 mg chewable tablet 81 mg PO DAILY Blood Clot 03/13/24
(Children's Aspirin) Prevention/Tx
furosemide 40 mg tablet (Lasix) 40 mg PO DAILY Fluid 03/13/24
Retention/Swelling
lidocaine 4 % topical patch 2 patch topical DAILYPRN PRN right 03/13/24
shoulder and knee
nicotine 14 mg/24 hr daily 14 mg transdermal DAILY smoking 03/13/24
transdermal patch cessation
pantoprazole 40 mg tablet,delayed 40 mg PO DAILY Gastrointestinal 03/13/24
release Issue
thiamine HCl (vitamin B1) 100 mg 100 mg PO BID Supplement 03/13/24
tablet
spironolactone 50 mg tablet 50 mg PO DAILY #30 tabs 03/15/24
budesonide 160 mcg-glycopyr 9 2 inh inhalation R BID 04/11/24
mcg-formot 4.8 mcg/actuation HFA Lung/Breathing Issues
inhaler (Breztri Aerosphere)
docusate sodium 100 mg capsule 100 mg PO DAILYPRN PRN constipation 04/11/24
magnesium oxide 200 mg PO BID Supplement 04/11/24
Review of Systems
-
All other systems: A 12 pt ROS was Negative except as stated above in HPI
Vital Signs
Temp Pulse Resp BP Pulse Ox
98.9 F 93 15 120/65 97
04/11/24 09:30 04/11/24 11:30 04/11/24 11:30 04/11/24 11:15 04/11/24 11:30
Physical Exam
Exam
General: No Apparent Distress
HEENT: Anicteric
Respiratory: Clear
Cardiac: Regular Rhythm
GI: Soft, Non Tender, Non Distended and Normal Bowel Sounds
Musculoskeletal: Edema (+ 2 pitting edema to mid calves)
Skin: Warm and Dry
Neuro: AO x 3 and Other (slightly forgetful, no asterixis)
Psych: Calm
Results
WBC 4.3 10^3/uL (4.8-10.8) L 04/11/24 05:52
Hgb 6.5 g/dL (13.0-18.0) L* 04/11/24 05:52
Hct 19.4 % (39.0-52.0) L* 04/11/24 05:52
MCV 94.2 fL (80.0-94.0) H 04/11/24 05:52
Plt Count 78 10^3/uL (130-400) L D 04/11/24 05:52
Absolute Neuts (auto) 4.0 10^3/uL (1.4-6.5) 04/10/24 23:47
PT 17.4 Sec (11.4-14.6) H 04/10/24 23:47
INR 1.44 04/10/24 23:47
Sodium 132 mmol/L (135-145) L 04/11/24 05:52
Potassium 3.7 mmol/L (3.5-5.1) 04/11/24 05:52
Chloride 100 mmol/L (98-107) 04/11/24 05:52
Carbon Dioxide 30 mmol/L (22-30) 04/11/24 05:52
BUN 21 mg/dl (9-20) H 04/11/24 05:52
Creatinine 0.9 mg/dL (0.7-1.3) 04/11/24 05:52
Calcium 7.9 mg/dl (8.4-10.2) L 04/11/24 05:52
Total Bilirubin 3.0 mg/dl (0.2-1.3) H 04/11/24 05:52
AST 49 U/L (17-59) 04/11/24 05:52
ALT 20 U/L (0-50) 04/11/24 05:52
Alkaline Phosphatase 103 U/L (38-126) 04/11/24 05:52
Lipase 330 U/L (23-300) H 04/10/24 23:47
Diagnostic Image Results:
Paracentesis 04/11/24:
FINDINGS: 5700 cc of clear yellow ascitic fluid was evacuated. Samples sent for analysis as requested.
IMPRESSION: Successful ultrasound guided diagnostic and therapeutic paracentesis.
CXR 04/11/24:
IMPRESSION:
No acute cardiopulmonary process
US Abd 04/11/24:
IMPRESSION:
Large volume abdominal ascites.
Electronically signed by Hans Alegria MD , 04/11/2024 8:02 AM
Prior GI Procedures:
EGD: 12/27/2022 Dr. Weaver: Normal esophagus. Portal hypertensive gastropathy. Normal examined duodenum.
Colonoscopy: none
Assessment / Plan
-
58-year-old male with a past medical history significant for liver cirrhosis with history of alcohol abuse and hepatitis C status-post treatment and eradication last year, Klebsiella pneumonia, hypertension, GERD, current smoker, anxiety, who
presented to the emergency room with complaints of increased abdominal distention and lower extremity edema. We are being asked to evaluate for evaluation of ascites and anemia. Currently the patient presents with a hemoglobin of 6.9 down from
hemoglobin of 8.7 on 03/15/2024. He did receive 2 units packed red blood cells. Repeat hemoglobin is pending. WBC 4.3, platelets 78, INR 1.44, sodium 132, potassium 3.7, BUN 21, creatinine 0.9, total bilirubin 3.0, direct 0.8, AST 49, ALT 20, alk
phos 103, albumin 2.1, lipase 330. Patient had a paracentesis this morning and they removed 5700 mL, he is receiving albumin at this time. Analysis of fluid is pending. The patient denies any fevers, chills, nausea, vomiting, melena, dysphagia or
odynophagia. He denies any early satiety or unintentional weight loss.
Impression:
-Abdominal distention secondary to ascites, paracentesis of 5700mL, awaiting fluid analysis
-Decompensated alcoholic/Hep C liver cirrhosis, MELD 3.0= 20
-Macrocytic anemia, -> hemoglobin 6.5, patient now s/p 2 units PRBC needs colonoscopy has defered in past. Intermittent rectal bleeding as well.
-Chronic thrombocytopenia, stable-> 78
-Ascites-> on Lasix 40 mg daily and Aldactone 50 g daily
-Chronic hyponatremia-> stable 132
-Hyperbilirubinemia-> 2.1
-AFP now 30, was in the 10-12 range
-Hx Hep C s/p tx with Epclusa with SVR
Other pertinent medical history:
-Chronic pain
-GERD
-Hypertension
-Anxiety
Plan:
-Check MRI Abd with and without contrast given elevated AFP
-Add on cytology to ascites fluid for paracentesis
-Continue Pantoprazole 40 mg daily
-Continue 2 g sodium diet, daily weights.
-Continue Lasix 40 mg daily and Aldactone 50 mg po daily.
-Okay to continue 81 mg of aspirin with history of lacunar infarct
-Patient needs a colonoscopy as he has never had one, now given recurrent anemia requiring blood transfusion,OB pos stool in the past,continued intermittent rectal bleeding he should have as an inpatient as well as EGD for variceal screening.
-ETOH abstinence
-CBC, BMP, LFTs, INR in am
-Further recommendations to be forthcoming
Data Reviewed
-
Radiology: Report Reviewed by me
Ultrasound: Report Reviewed by me
Old Records: Reviewed
-
-
Thank you for consultation and allowing me to participate in the patient's care. Please call the [facility] GI physician during the after hours with any questions or concerns.
[2024-04-11 12:49] LABS: Body Fluid Albumin < 1.0 g/dl; Body Fluid LDH < 90 U/L; Body Fluid Protein < 2.0 g/dl
--- NOTE | 2024-04-11 13:40 | W.PN.HOSP.TC ---
Today's Communication/Plan
-
Paracentesis today await fluid studies
Continue antibiotics, diuretics, low sodium diet
2 units PRBC transfused
Recheck CBC and transfuse more blood if needed
Appreciate GI
Assessment / Plan
Assessment / Plan
Physical Exam
General: Not in acute distress
HEENT: Moist mucous membranes
Respiratory: Decreased breath sounds at the bases
Cardiac: S1/S2, Regular Rhythm and Murmur (II/ MACHO)
GI: Distended. Nontender. Positive bowel sounds.
Musculoskeletal: No Cyanosis. Pitting edema at the bilateral lower extremities.
Neuro: Awake, Alert and Nonfocal/grossly intact
Assessment/Plan
Patient is a 58y M with PMH significant for cirrhosis who presents to ED complaining of abdominal distention.
Alcoholic Cirrhosis with Ascites and Thrombocytopenia
-Continue usual diuretic regimen and follow I/Os, weights, etc
-Consult IR for paracentesis
-5700 ascites fluid taken out on 04/11/24 -- follow studies
-Encourage abstinence from EtOH.
-Ceftriaxone while awaiting ascites fluid results
-MRI abdomen
-Protonix
-2 g sodium diet
Acute on Chronic Macrocytic Anemia with Heme-Positive Stool
-Transfusion ordered in the ED. Stool brown / heme pos.
-2 units transfused on 04/11/24
-GI evaluation for additional recommendations.
-EGD in Dec 2022 with portal hypertensive gastropathy, but no varices
-Continue to trend Hgb
-Transfuse additional PRBCs if needed.
ASCVD / CVA
-Continue aspirin
COPD without acute exacerbation
-Continue nebs prn
Hypertension
-Continue spironolactone
Insomnia
-Continue alprazolam PRN
Chronic Right Upper Ext Pain
-Continue tramadol prn
-Continue lidocaine patch
DVT Proph: SCDs
Code Status: Full Code
Anticipated Discharge: > 48 hours
Subjective/Interval History
-
Date of Service: April 11, 2024
Patient was seen and examined. He denied any new significant symptoms or complaints.
Objective Data
-
Labs:
Laboratory Results
04/11/24
05:52
WBC 4.3 L
Hgb 6.5 L*
Hct 19.4 L*
Plt Count 78 L D
Sodium 132 L
Potassium 3.7
Chloride 100
Carbon Dioxide 30
BUN 21 H
Creatinine 0.9
Glucose 111 H
Calcium 7.9 L
Total Bilirubin 3.0 H
AST 49
ALT 20
Alkaline Phosphatase 103
Vital Signs:
Vital Signs
Temp Pulse Resp BP Pulse Ox
98.9 F 104 23 120/65 93
04/11/24 09:30 04/11/24 12:30 04/11/24 12:30 04/11/24 11:15 04/11/24 11:45
I&O
04/10/24 04/11/24 04/12/24
06:59 06:59 06:59
Intake Total 250 / 250 250 / 250
Output Total 1200 / 1200
Balance 250 / 250 -950 / -950
[2024-04-11 14:03] LABS: Body Fluid Mononuclear 90.4 %; Body Fluid Polymorphonuclear 9.6 %; Body Fluid WBC 94 /CUMM
[2024-04-11 14:07] LABS: Body Fluid Second Tech HB
[2024-04-11 15:50] LABS: Mean Corp Hgb Conc. 34.5 g/dL (33.0-37.0); Mean Corpuscular Volume 89.8 fL (80.0-94.0); Mean Platelet Volume 10.2 fL (7.4-10.4); Platelet Count 77 10^3/uL (130-400); Red Blood Cell Count 2.26 10^6/uL (4.70-6.10); Red Cell Dist. Width 18.1 % (11.5-14.5); White Blood Cell Count 3.7 10^3/uL (4.8-10.8)
[2024-04-11 15:54] LABS: Hematocrit 20.3 % (39.0-52.0)
[2024-04-11] MEDS: XANAX 1 MG PO ×2 (16:31→22:14)
--- NOTE | 2024-04-11 20:15 | PTCARENOTE ---
Pt arrived from ED via stretcher and ambulated to bed. Pt is AAOx3, VSS, and w/o complaints of pain. Pt is resting comfortably w/ call caballero within reach.
[2024-04-11] MEDS: LIDOCAINE 4% PATCH 2 PATCH TOPICAL (21:40)
[2024-04-11] MEDS: ULTRAM 100 MG PO (22:15)
[2024-04-12] VITALS (10 sets, daily range): BP systolic 105–134; BP diastolic 53–73; PULSE 90–92; O2SAT 97; BMI 28.9
[2024-04-12 00:40] LABS: Mean Corp Hgb Conc. 35.3 g/dL (33.0-37.0); Mean Corpuscular Hgb 32.4 pg (27.0-31.0); Mean Corpuscular Volume 91.8 fL (80.0-94.0); Mean Platelet Volume 9.8 fL (7.4-10.4); Platelet Count 66 10^3/uL (130-400); Red Blood Cell Count 2.07 10^6/uL (4.70-6.10); Red Cell Dist. Width 17.6 % (11.5-14.5); White Blood Cell Count 3.3 10^3/uL (4.8-10.8)
[2024-04-12 00:43] LABS: Hemoglobin 6.7 g/dL (13.0-18.0)
--- NOTE | 2024-04-12 03:08 | PTCARENOTE ---
Pt hbg 6.7 Hct 19.0. RN notified WAREHOUSE LOGISTICS COORDINATOR- ordered 1 unit PRBC. Pt tolerated 1 unit of PRBC and VSS. Pt is resting comfortably w/ call caballero within reach.
[2024-04-12 05:36] LABS: Hematocrit 21.2 % (39.0-52.0); Hemoglobin 7.2 g/dL (13.0-18.0); Mean Corpuscular Hgb 31.2 pg (27.0-31.0); Mean Corpuscular Volume 91.8 fL (80.0-94.0); Platelet Count 71 10^3/uL (130-400); Red Blood Cell Count 2.31 10^6/uL (4.70-6.10); Red Cell Dist. Width 17.6 % (11.5-14.5); White Blood Cell Count 3.5 10^3/uL (4.8-10.8)
[2024-04-12 05:50] LABS: INR 1.66; PT 19.5 Sec (11.4-14.6)
[2024-04-12] MEDS: STERILE WATER FOR INJECTION 10 ML IV (05:57)
[2024-04-12] MEDS: ROCEPHIN 1000 MG IV (05:58)
[2024-04-12 06:06] LABS: ALT (SGPT) 16 U/L (0-50); AST (SGOT) 41 U/L (17-59); Albumin 2.2 g/dl (3.5-5.0); Alkaline Phosphatase 85 U/L (38-126); Blood Urea Nitrogen 18 mg/dl (9-20); Calcium 7.6 mg/dl (8.4-10.2); Carbon Dioxide 29 mmol/L (22-30); Chloride 101 mmol/L (98-107); Direct Bilirubin 0.7 mg/dl (0.0-0.4); Estimated Creatinine Clearance 84 ml/min; Glucose 107 mg/dl (70-99); Potassium 3.2 mmol/L (3.5-5.1); Sodium 135 mmol/L (135-145); Total Protein 4.1 g/dl (6.3-8.2); eGFR > 60.00
--- NOTE | 2024-04-12 08:02 | W.PN.HOSP.TC ---
Today's Communication/Plan
-
EGD and colonoscopy tomorrow
Good improvement in Hgb
Assessment / Plan
Assessment / Plan
Physical Exam
General: Not in acute distress
HEENT: Moist mucous membranes
Respiratory: Decreased breath sounds at the bases
Cardiac: S1/S2, Regular Rhythm and Murmur (II/ MACHO)
GI: Distended. Nontender. Positive bowel sounds.
Musculoskeletal: No Cyanosis. Pitting edema at the bilateral lower extremities.
Neuro: Awake, Alert and Nonfocal/grossly intact
Assessment/Plan
Patient is a 58y M with PMH significant for cirrhosis who presents to ED complaining of abdominal distention.
Alcoholic Cirrhosis with Ascites and Thrombocytopenia
-Continue usual diuretic regimen and follow I/Os, weights, etc
-Consult IR for paracentesis
-5700 ascites fluid taken out on 04/11/24 -- no SBP; follow remaining studies
-Encourage abstinence from EtOH.
-Ceftriaxone while awaiting ascites fluid results
-MRI abdomen
-Protonix
-2 g sodium diet
Acute on Chronic Macrocytic Anemia with Heme-Positive Stool
-Transfusion ordered in the ED. Stool brown / heme pos.
-2 units transfused on 04/11/24
-3rd unit transfused on 04/12/24 with good improvement in Hgb
-GI evaluation for additional recommendations.
-EGD in Dec 2022 with portal hypertensive gastropathy, but no varices
-Continue to trend Hgb
-Transfuse additional PRBCs if needed.
-EGD and colonoscopy tomorrow
Hypokalemia
ASCVD / CVA
-Continue aspirin
COPD without acute exacerbation
-Continue nebs prn
Hypertension
-Continue spironolactone
Insomnia
-Continue alprazolam PRN
Chronic Right Upper Ext Pain
-Continue tramadol prn
-Continue lidocaine patch
DVT Proph: SCDs
Code Status: Full Code
Anticipated Discharge: > 48 hours
Subjective/Interval History
-
Date of Service: April 12, 2024
Patient was seen and examined. He denied any new symptoms or complaints.
Objective Data
-
Labs:
Laboratory Results
04/12/24 04/12/24 04/12/24
00:25 04:39 05:12
WBC 3.3 L 3.5 L
Hgb 6.7 L* 7.2 L
Hct 19.0 L* 21.2 L
Plt Count 66 L 71 L
PT 19.5 H
INR 1.66
Sodium 135
Potassium 3.2 L
Chloride 101
Carbon Dioxide 29
BUN 18
Creatinine 0.9
Glucose 107 H
Calcium 7.6 L
Total Bilirubin 3.0 H
AST 41
ALT 16
Alkaline Phosphatase 85
Vital Signs:
Vital Signs
Temp Pulse Resp BP Pulse Ox
98.0 F 102 18 111/57 95
04/12/24 03:08 04/12/24 03:08 04/12/24 03:08 04/12/24 03:08 04/12/24 03:08
I&O
04/11/24 04/12/24 04/13/24
06:59 06:59 06:59
Intake Total 250 / 250 1710 / 1710
Output Total 1750 / 1750
Balance 250 / 250 -40 / -40
[2024-04-12] MEDS: LASIX 40 MG PO (08:26)
[2024-04-12] MEDS: KCL 40 MEQ PO (08:26)
[2024-04-12] MEDS: ALDACTONE 50 MG PO (08:26)
[2024-04-12] MEDS: XANAX 1 MG PO ×2 (08:28→20:31)
[2024-04-12] MEDS: PROTONIX 100 IV ×2 (10:12→20:17)
[2024-04-12] MEDS: NICODERM TRANSDERMAL 14 MG TRANSDERM (11:26)
--- NOTE | 2024-04-12 11:50 | VNURNOTE ---
Patient is current with [facility] since 02/15 w/ SN/PT/OT/PAINTING SUPERVISOR, will monitor progress and plan at discharge.
[2024-04-12 15:10] LABS: Hematocrit 25.9 % (39.0-52.0); Hemoglobin 8.6 g/dL (13.0-18.0); Mean Corp Hgb Conc. 33.2 g/dL (33.0-37.0); Mean Corpuscular Hgb 30.6 pg (27.0-31.0); Mean Corpuscular Volume 92.2 fL (80.0-94.0); Mean Platelet Volume 9.4 fL (7.4-10.4); Platelet Count 79 10^3/uL (130-400); Red Blood Cell Count 2.81 10^6/uL (4.70-6.10); Red Cell Dist. Width 17.5 % (11.5-14.5); White Blood Cell Count 3.9 10^3/uL (4.8-10.8)
--- NOTE | 2024-04-12 15:17 | CM ---
Alert awake oriented patient who lives with his Cherise who lives in a 2 story home with 1 step to enter and 10 steps to bed and bathroom. He does sleep down stairs at times.He is independent in all activities of daily living.He uses acne cane
occasionally.
Current with [facility] hx /No SNF hx
Hr uses a cane
Pharmacy [facility]
PCP DR Wood
PLAN Home resume VN Carmen aware VN liaison
--- NOTE | 2024-04-12 15:53 | W.PN.GI.CBS2 ---
Today's Communication / Plan
-
EGD/colonoscopy tomorrow
Assessment / Plan
-
58-year-old male with a past medical history significant for liver cirrhosis with history of alcohol abuse and hepatitis C status-post treatment and eradication last year, Klebsiella pneumonia, hypertension, GERD, current smoker, anxiety, who
presented to the emergency room with complaints of increased abdominal distention and lower extremity edema. We are being asked to evaluate for evaluation of ascites and anemia. Currently the patient presents with a hemoglobin of 6.9 down from
hemoglobin of 8.7 on 03/15/2024. He did receive 2 units packed red blood cells. Repeat hemoglobin is pending. WBC 4.3, platelets 78, INR 1.44, sodium 132, potassium 3.7, BUN 21, creatinine 0.9, total bilirubin 3.0, direct 0.8, AST 49, ALT 20, alk
phos 103, albumin 2.1, lipase 330. Patient had a paracentesis this morning and they removed 5700 mL, he is receiving albumin at this time. Analysis of fluid is pending. The patient denies any fevers, chills, nausea, vomiting, melena, dysphagia or
odynophagia. He denies any early satiety or unintentional weight loss.
Impression:
-Abdominal distention secondary to ascites, paracentesis of 5700mL, awaiting fluid analysis
-Decompensated alcoholic/Hep C liver cirrhosis, MELD 3.0= 20
-Macrocytic anemia, -> hemoglobin 6.5, patient now s/p 2 units PRBC needs colonoscopy has defered in past. Intermittent rectal bleeding as well.
-Chronic thrombocytopenia, stable-> 78
-Ascites-> on Lasix 40 mg daily and Aldactone 50 g daily
-Chronic hyponatremia-> stable 132
-Hyperbilirubinemia-> 2.1
-AFP now 30, was in the 10-12 range
-Hx Hep C s/p tx with Epclusa with SVR
Other pertinent medical history:
-Chronic pain
-GERD
-Hypertension
-Anxiety
Plan:
-EGD and colonoscopy tomorrow
-MRI did not show HCC but not great study
- alcohol abstinence
Subjective
Subjective
Date of Service: April 12, 2024
Pt w/o overt bleeding, no abd pain
Objective
Data Reviewed
Laboratory Data:
Laboratory Results
04/12/24 15:00
04/12/24 04:39
Laboratory Results
PT 19.5 Sec (11.4-14.6) H 04/12/24 04:39
INR 1.66 04/12/24 04:39
Phosphorus 3.8 mg/dl (2.5-4.5) 04/11/24 05:52
Magnesium 1.9 mg/dl (1.6-2.3) 04/11/24 05:52
Total Bilirubin 3.0 mg/dl (0.2-1.3) H 04/12/24 04:39
AST 41 U/L (17-59) 04/12/24 04:39
ALT 16 U/L (0-50) 04/12/24 04:39
Alkaline Phosphatase 85 U/L (38-126) 04/12/24 04:39
Lipase 330 U/L (23-300) H 04/10/24 23:47
Vital Signs and I&O:
Vital Signs
Temp Pulse Resp BP Pulse Ox
98.4 F 90 16 130/73 97
04/12/24 15:20 04/12/24 15:20 04/12/24 15:20 04/12/24 15:20 04/12/24 15:20
I&O
04/11/24 04/12/24 04/13/24
06:59 06:59 06:59
Intake Total 250 / 250 1710 / 1710
Output Total 1750 / 1750
Balance 250 / 250 -40 / -40
Physical Exam
Physical Exam
GI: Soft, Non Distended and Other (ascites)
[2024-04-12] MEDS: NULYTELY SOLUTION 4 LITERS PO (17:22)
[2024-04-12] MEDS: LIDOCAINE 4% PATCH 2 PATCH TOPICAL (22:24)
--- NOTE | 2024-04-12 23:15 | PTCARENOTE ---
Addendum entered by Mindy Mckinnon 04/13/24 05:32:
HR 90-110s going up to 120s frequently throughout the night, 130-140s with ambulation but not sustaining. Blanket MANAGER COMMUNITY OUTREACH aware.
Original Note:
Pts HR 90-130/140s pt frequently up to bathroom due to bowel prep. Pt asymptomatic. Blanket MANAGER COMMUNITY OUTREACH notified, no new orders at this time.
[2024-04-13] VITALS (14 sets, daily range): BP systolic 108–136; BP diastolic 60–76; BMI 29.0; BMI 26.3
[2024-04-13] MEDS: PROTONIX 100 IV (04:05)
[2024-04-13] MEDS: ROCEPHIN 1000 MG IV (05:06)
[2024-04-13] MEDS: STERILE WATER FOR INJECTION 10 ML IV (05:06)
[2024-04-13 07:58] LABS: Hematocrit 23.2 % (39.0-52.0); Hemoglobin 7.9 g/dL (13.0-18.0); Mean Corp Hgb Conc. 34.1 g/dL (33.0-37.0); Mean Corpuscular Hgb 30.5 pg (27.0-31.0); Mean Corpuscular Volume 89.6 fL (80.0-94.0); Mean Platelet Volume 9.7 fL (7.4-10.4); Platelet Count 76 10^3/uL (130-400); Red Blood Cell Count 2.59 10^6/uL (4.70-6.10); Red Cell Dist. Width 17.1 % (11.5-14.5); White Blood Cell Count 3.5 10^3/uL (4.8-10.8)
[2024-04-13 08:12] LABS: INR 1.49; PT 17.8 Sec (11.4-14.6)
[2024-04-13] MEDS: NICODERM TRANSDERMAL 14 MG TRANSDERM (08:33)
[2024-04-13] MEDS: ALDACTONE 50 MG PO (08:37)
[2024-04-13] MEDS: XANAX 1 MG PO ×2 (08:38→20:11)
[2024-04-13] MEDS: LASIX 40 MG PO (08:38)
[2024-04-13 08:51] LABS: Blood Urea Nitrogen 13 mg/dl (9-20); Calcium 8.1 mg/dl (8.4-10.2); Carbon Dioxide 28 mmol/L (22-30); Chloride 101 mmol/L (98-107); Estimated Creatinine Clearance 95 ml/min; Glucose 89 mg/dl (70-99); Magnesium 1.7 mg/dl (1.6-2.3); Potassium 3.6 mmol/L (3.5-5.1); Sodium 133 mmol/L (135-145); eGFR > 60.00
--- NOTE | 2024-04-13 09:21 | PN.CDI ---
CDI
- -
CDI:
Physician Documentation Request
Admit Date: 04/11/24 05:14
Dear Doctor Gilma,
Please review the following and provide your response in the progress notes.
Clinical Indicators:
Pt admitted with cirrhosis of liver with ascites
6/ PN: 'Alcoholic Cirrhosis with Ascites and Thrombocytopenia.'
Laboratory Tests
04/11/24 04/12/24 04/13/24
05:52 00:25 06:48
WBC 4.3 L 3.3 L 3.5 L
04/11/24 04/12/24 04/13/24
05:52 00:25 06:48
RBC 2.06 L 2.07 L 2.59 L
04/11/24 04/12/24 04/13/24
05:52 00:25 06:48
Plt Count 78 L D 66 L 76 L
Based on the above, could you please clarify in the progress notes, the appropriate diagnosis, if significant, that supports the above abnormalities and additional evaluation, monitoring and/or treatment rendered:
Pancytopenia
Thrombocytopenia only
Other
Use of terms such as suspected, likely, concern for, or probable (associated with a specific diagnosis that is being evaluated, monitored, or treated as if it exists) are acceptable and can be coded in the inpatient setting, when documented at the
time of discharge.
Thank you,
Tere Abebe RN, BSN
CDI Specialist
Available via [place] [employer]
Please use your independent medical judgment in providing your response.
--- NOTE | 2024-04-13 12:53 | W.PN.HOSP.TC ---
Today's Communication/Plan
-
-Due to bleeding during polypectomy on April 13, 2024, patient to be moved to IMU -- I also spoke with Dr. Floyd on April 13, 2024, patient needed a claw/evisco clip to stop the post-polypectomy bleeding, 1 unit FFP and 1 unit PRBCs were ordered,
Vitamin K has been ordered as well. Patient will need CBC once moved to IMU, followed by Q6H H&H checks.
-If patient has further bleeding, IR and colorectal surgery will need to be consulted STAT
-Continue Q6H H&H
Assessment / Plan
Assessment / Plan
Physical Exam
General: Not in acute distress
HEENT: Moist mucous membranes
Respiratory: Decreased breath sounds at the bases
Cardiac: S1/S2, Regular Rhythm and Murmur (II/ MACHO)
GI: Distended. Nontender. Positive bowel sounds.
Musculoskeletal: No Cyanosis. Pitting edema at the bilateral lower extremities.
Neuro: Awake, Alert and Nonfocal/grossly intact
Assessment/Plan
Patient is a 58y M with PMH significant for cirrhosis who presents to ED complaining of abdominal distention.
Alcoholic Cirrhosis with Ascites and Thrombocytopenia
Portal hypertensive gastropathy
Colonic Polyps on Colonoscopy during this (April 2024) Hospitalization with post-polypectomy site bleeding
Diverticulosis
-Continue usual diuretic regimen and follow I/Os, weights, etc
-Consult IR for paracentesis
-5700 ascites fluid taken out on 04/11/24 -- no SBP; follow remaining studies
-Encourage abstinence from EtOH.
-Ceftriaxone while awaiting ascites fluid results
-MRI abdomen
-Continue Protonix
-2 g sodium diet
-Needs surveillance EGD every 1-2 years with for variceal screening.
Acute on Chronic Macrocytic Anemia with Heme-Positive Stool
-Transfusion ordered in the ED. Stool brown / heme pos.
-2 units transfused on 04/11/24
-3rd unit transfused on 04/12/24 with good improvement in Hgb
-4th unit PRBC being transfused on 04/13/24
-GI evaluation for additional recommendations.
-Continue to trend Hgb
-Transfuse additional PRBCs if needed.
-Due to bleeding during polypectomy on April 13, 2024, patient to be moved to IMU -- I also spoke with Dr. Floyd on April 13, 2024, patient needed a claw/evisco clip to stop the post-polypectomy bleeding, 1 unit FFP and 1 unit PRBCs were ordered,
Vitamin K has been ordered as well. Patient will need CBC once moved to IMU, followed by Q6H H&H checks. If patient has further bleeding, IR and colorectal surgery will need to be consulted stat (IR and Colorectal Surgery have been notified but have
NOT been consulted but will need to be STAT consulted if bleeding occurs)
-Continue Q6H H&H
-Maintain NPO
Hypokalemia
ASCVD / CVA
-Hold aspirin due to bleeding above
COPD without acute exacerbation
-Continue nebs prn
Hypertension
-Continue spironolactone
Insomnia
-Continue alprazolam PRN
Chronic Right Upper Ext Pain
-Continue tramadol prn
-Continue lidocaine patch
DVT Prophylaxis: SCDs
Code Status: Full Code
Significant bleeding after polypectomy during colonoscopy, needing close monitoring in the IMU, and needing blood transfusion and FFP is a high risk encounter.
Anticipated Discharge: > 48 hours
Subjective/Interval History
-
Date of Service: April 13, 2024
Patient was seen and examined. He denied any new significant symptoms or complaints.
Objective Data
-
Labs:
Laboratory Results
04/13/24
06:48
WBC 3.5 L
Hgb 7.9 L
Hct 23.2 L
Plt Count 76 L
PT 17.8 H
INR 1.49
Sodium 133 L
Potassium 3.6
Chloride 101
Carbon Dioxide 28
BUN 13
Creatinine 0.8
Glucose 89
Calcium 8.1 L
Vital Signs:
Vital Signs
Temp Pulse Resp BP Pulse Ox
98.1 F 98 20 114/67 95
04/13/24 07:55 04/13/24 08:37 04/13/24 07:55 04/13/24 08:37 04/13/24 08:30
I&O
04/12/24 04/13/24 04/14/24
06:59 06:59 06:59
Intake Total 1710 / 1710 2520 / 2520
Output Total 1750 / 1750 1550 / 1550
Balance -40 / -40 970 / 970
--- NOTE | 2024-04-13 13:11 | PTCARENOTE ---
Received patient this am AAOx3. Pt NPO for Endoscopy an Colonoscopy. IV Protonix Drip infusing without difficulty. Pt offered no complaints. Continued to assess patient status. Report given to GI RN. Pt sent to GI Lab late morning.
[2024-04-13] MEDS: MEPHYTON 2.5 MG PO (13:59)
[2024-04-13] MEDS: NSS 1000 IV (15:10)
[2024-04-13 16:37] LABS: % Basophils 0.3 % (0-2); % Eosinophils 0.8 % (0-6); % Immature Granulocytes 0.5 % (0-0.5); % Lymphocytes 11.6 % (20.5-51.1); % Monocytes 8.4 % (1.7-9.3); % Neutrophils 78.4 % (42.2-75.2); Absolute Eosinophils 0.1 10^3/uL (0-0.7); Absolute Lymphocytes 0.8 10^3/uL (1.2-3.4); Absolute Monocytes 0.5 10^3/uL (0.1-0.6); Absolute Neutrophils 5.1 10^3/uL (1.4-6.5); Hematocrit 24.5 % (39.0-52.0); Hemoglobin 8.4 g/dL (13.0-18.0); Mean Corp Hgb Conc. 34.3 g/dL (33.0-37.0); Mean Corpuscular Hgb 30.7 pg (27.0-31.0); Mean Corpuscular Volume 89.4 fL (80.0-94.0); Mean Platelet Volume 9.8 fL (7.4-10.4); Nucleated Red Blood Cells % 0 % (-); Platelet Count 81 10^3/uL (130-400); Red Blood Cell Count 2.74 10^6/uL (4.70-6.10); Red Cell Dist. Width 16.6 % (11.5-14.5); White Blood Cell Count 6.5 10^3/uL (4.8-10.8)
--- NOTE | 2024-04-13 18:04 | PTCARENOTE ---
Patient received from PACU. AAO but a little drowsy, VSS. Hand tremors. Currently on 2L N/C which is patients home baseline. Diminished bilaterally with scattered coarse breath sounds. Sinus tach on tele. Ordered dinner for patient, on clear
liquid diet. Wound noted on patients nose, asked patient and did not want to talk about it. Has been there for a while. Oriented to room. Call caballero in reach.
[2024-04-13] MEDS: PROTONIX 40 MG PO (20:11)
[2024-04-13] MEDS: LIDOCAINE 4% PATCH 2 PATCH TOPICAL (21:37)
--- NOTE | 2024-04-13 22:42 | PTCARENOTE ---
Report received from previous shift RN [id number]. Pt in bed, AAO3, hand tremors noted. Pt denies acute pain, reports chronic pain in R should and R knee. Lung sounds are decreased and coarse throughout w inspiratory wheeze, pox 98% on 2L O2. Telemetry
rhythm reveals ST, HR 100's, pitting edema noted in b/l lower extr (R>L), palpable peripheral pulses present. Knee high SCDs placed on pt per order. Hyper BS, abdomen distended round nontender, tolerating clear liquid diet. Pt was assisted from bed
into bathroom by PCT, pt voided and had small bm that was brown with some bright red blood noted. Dr Singh rounding on unit and aware. Skin as documented. L hand int capped. L AC int with IVF per order. Safe environment maintained, call caballero
within reach, bed alarm on and monitoring for pt safety. Will monitor closely.
[2024-04-13 23:26] LABS: Hemoglobin 7.1 g/dL (13.0-18.0)
[2024-04-13 23:41] LABS: Hematocrit 20.3 % (39.0-52.0)
--- NOTE | 2024-04-13 23:47 | PTCARENOTE ---
[address] Floyd. Current vital signs and pt status provided to . states we will monitor overnight. House KATERINA Olvera on unit and also updated on pt status. Will monitor closely.
[2024-04-14] VITALS (19 sets, daily range): BP systolic 105–131; BP diastolic 54–69; BMI 27.4
--- NOTE | 2024-04-14 01:08 | PTCARENOTE ---
Pt rang federico requesting to walk into bathroom to have bm. Informed pt that this RN would assist him to bedside commode and not into the bathroom due to low hgb. Pt agreeable. Pt had 100ml liquid brown bm and voided small amount urine. Pt's HR will
increase from 100's into 120-130's briefly with activity and then returns to 100's. Will continue to monitor closely.
[2024-04-14 04:28] LABS: Mean Corp Hgb Conc. 36.2 g/dL (33.0-37.0); Mean Corpuscular Hgb 31.3 pg (27.0-31.0); Mean Corpuscular Volume 86.6 fL (80.0-94.0); Platelet Count 68 10^3/uL (130-400); Red Blood Cell Count 2.17 10^6/uL (4.70-6.10); Red Cell Dist. Width 16.6 % (11.5-14.5); White Blood Cell Count 4.5 10^3/uL (4.8-10.8)
[2024-04-14 04:31] LABS: Hematocrit 18.8 % (39.0-52.0); Hemoglobin 6.8 g/dL (13.0-18.0)
[2024-04-14 04:56] LABS: Blood Urea Nitrogen 12 mg/dl (9-20); Calcium 7.3 mg/dl (8.4-10.2); Carbon Dioxide 23 mmol/L (22-30); Chloride 106 mmol/L (98-107); Estimated Creatinine Clearance 95 ml/min; Glucose 95 mg/dl (70-99); Magnesium 1.7 mg/dl (1.6-2.3); Potassium 3.3 mmol/L (3.5-5.1); Sodium 133 mmol/L (135-145); eGFR > 60.00
[2024-04-14] MEDS: ROCEPHIN 1000 MG IV (06:03)
[2024-04-14] MEDS: STERILE WATER FOR INJECTION 10 ML IV (06:03)
--- NOTE | 2024-04-14 07:08 | PTCARENOTE ---
AM hematology lab results reviewed w KATERINA Cadena. KATERINA ordered 1 unit PRBC. Unit PRBC initiated via L AC, see TAR for full details. Report to oncoming shift SUAD.
[2024-04-14] MEDS: PROTONIX 40 MG PO ×2 (07:18→20:16)
[2024-04-14] MEDS: NICODERM TRANSDERMAL 14 MG TRANSDERM (07:18)
[2024-04-14] MEDS: LASIX 40 MG PO (07:18)
[2024-04-14] MEDS: ALDACTONE 50 MG PO (07:18)
[2024-04-14] MEDS: XANAX 1 MG PO ×2 (07:39→20:17)
--- NOTE | 2024-04-14 07:50 | PTCARENOTE ---
Patient received from retail field supervisor. Patient resting comfortably in bed. AAO,VSS. No events noted overnight. No complaints of pain at this time. Tremors absent. On and off 2L N/C. Hgb this AM was 6.8, receiving 1 unit PRBC. Will resume NSS @
60mL/hr when finished. Call caballero in reach.
[2024-04-14] MEDS: KCL 40 MEQ PO (09:42)
[2024-04-14] MEDS: NSS 1000 IV (09:43)
--- NOTE | 2024-04-14 10:36 | PTOTSP ---
chart reviewed, noted pt had colonoscopy and then transferred to IMU level of care [place] [facility] [place] will require new PT/OT orders for continuation of care if pt is medically appropriate. will continue to monitor.
[2024-04-14 12:32] LABS: Hematocrit 24.2 % (39.0-52.0)
[2024-04-14 12:38] LABS: Hemoglobin 8.4 g/dL (13.0-18.0)
[2024-04-14] MEDS: MAG-TAB SR 84 MG PO ×2 (14:18→20:16)
[2024-04-14] MEDS: ULTRAM 100 MG PO (14:18)
--- NOTE | 2024-04-14 14:19 | VATNOTE ---
Attempts to restart IV unsuccessful another VAT nurse to attempt.
--- NOTE | 2024-04-14 15:09 | W.PN.HOSP.TC ---
Today's Communication/Plan
-
Continue to monitor H&H
Advance diet to Full Liquids
Assessment / Plan
Assessment / Plan
Physical Exam
General: Not in acute distress
HEENT: Moist mucous membranes
Respiratory: Decreased breath sounds at the bases
Cardiac: S1/S2, Regular Rhythm and Murmur (II/ MACHO)
GI: Distended. Nontender. Positive bowel sounds.
Musculoskeletal: No Cyanosis. Pitting edema at the bilateral lower extremities.
Neuro: Awake, Alert and Nonfocal/grossly intact
Assessment/Plan
Patient is a 58y M with PMH significant for cirrhosis who presents to ED complaining of abdominal distention.
Alcoholic Cirrhosis with Ascites and Thrombocytopenia
Portal hypertensive gastropathy
Colonic Polyps on Colonoscopy during this (April 2024) Hospitalization with post-polypectomy site bleeding
Diverticulosis
-Continue usual diuretic regimen and follow I/Os, weights, etc
-Consult IR for paracentesis
-5700 ascites fluid taken out on 04/11/24 -- no SBP; follow remaining studies
-Encourage abstinence from EtOH.
-Ceftriaxone while awaiting ascites fluid results
-MRI abdomen
-Continue Protonix
-2 g sodium diet
-Needs surveillance EGD every 1-2 years with for variceal screening.
Acute on Chronic Macrocytic Anemia with Heme-Positive Stool
Pancytopenia Likely Secondary to Cirrhosis
-Transfusion ordered in the ED. Stool brown / heme pos.
-2 units transfused on 04/11/24
-3rd unit transfused on 04/12/24 with good improvement in Hgb
-4th unit PRBC was transfused on 04/13/24
-5th unit PRBC was transfused on 04/13/24
-GI evaluation for additional recommendations.
-Continue to trend Hgb
-Transfuse additional PRBCs if needed.
-Due to bleeding during polypectomy on April 13, 2024, patient to be moved to IMU -- I also spoke with Dr. Floyd on April 13, 2024, patient needed a claw/evisco clip to stop the post-polypectomy bleeding, 1 unit FFP and 1 unit PRBCs were ordered,
Vitamin K has been ordered as well. If patient has further bleeding, IR and colorectal surgery will need to be consulted stat (IR and Colorectal Surgery have been notified but have NOT been consulted but will need to be STAT consulted if bleeding
occurs)
-Continue Q6H H&H
-Full Liquids Diet for now
Hypokalemia
-Replaced
-Monitor BMP
ASCVD / CVA
-Hold aspirin due to bleeding above
COPD without acute exacerbation
-Continue nebs prn
Hypertension
-Continue spironolactone
Insomnia
-Continue alprazolam PRN
Chronic Right Upper Ext Pain
-Continue tramadol prn
-Continue lidocaine patch
DVT Prophylaxis: SCDs
Code Status: Full Code
Significant bleeding after polypectomy during colonoscopy, needing close monitoring in the IMU, and needing blood transfusion is a high risk encounter.
Anticipated Discharge: > 48 hours
Subjective/Interval History
-
Date of Service: April 14, 2024
Objective Data
-
Labs:
Laboratory Results
04/14/24 04/14/24
04:17 12:19
WBC 4.5 L
Hgb 6.8 L* 8.4 L D
Hct 18.8 L* 24.2 L
Plt Count 68 L
Sodium 133 L
Potassium 3.3 L
Chloride 106
Carbon Dioxide 23
BUN 12
Creatinine 0.8
Glucose 95
Calcium 7.3 L
Vital Signs:
Vital Signs
Temp Pulse Resp BP Pulse Ox
98.5 F 95 22 126/63 94
04/14/24 11:45 04/14/24 11:00 04/14/24 11:00 04/14/24 10:31 04/14/24 11:00
I&O
04/13/24 04/14/24 04/15/24
06:59 06:59 06:59
Intake Total 2520 / 2520 2080 / 2080 450 / 450
Output Total 1550 / 1550 375 / 375 1250 / 1250
Balance 970 / 970 1705 / 1705 -800 / -800
[2024-04-14] MEDS: VITAMIN B1 100 MG PO (20:16)
[2024-04-14] MEDS: LIDOCAINE 4% PATCH 2 PATCH TOPICAL (20:17)
--- NOTE | 2024-04-14 20:39 | W.PN.GI.CBS2 ---
Today's Communication / Plan
-
-History of decompensated liver disease, cirrhosis, underlying hep C/alcohol use
MELD 3.0 score is 20
Currently on Lasix 40 mg and Aldactone 50 mg for volume overload
Monitor electrolytes and replete as needed
Outpatient follow-up with Dr. Weaver
MRI without any evidence of liver lesions
-Status post polyp resection,had to use Evisco clip for ligation
Currently doing well. Received 2 units of packed red blood cells, 1 FFP
Monitor H&H, transfuse as needed
Will follow
Assessment / Plan
-
58-year-old male with a past medical history significant for liver cirrhosis with history of alcohol abuse and hepatitis C status-post treatment and eradication last year, Klebsiella pneumonia, hypertension, GERD, current smoker, anxiety, who
presented to the emergency room with complaints of increased abdominal distention and lower extremity edema. We are being asked to evaluate for evaluation of ascites and anemia. Currently the patient presents with a hemoglobin of 6.9 down from
hemoglobin of 8.7 on 03/15/2024. He did receive 2 units packed red blood cells. Repeat hemoglobin is pending. WBC 4.3, platelets 78, INR 1.44, sodium 132, potassium 3.7, BUN 21, creatinine 0.9, total bilirubin 3.0, direct 0.8, AST 49, ALT 20, alk
phos 103, albumin 2.1, lipase 330. Patient had a paracentesis this morning and they removed 5700 mL, he is receiving albumin at this time. Analysis of fluid is pending. The patient denies any fevers, chills, nausea, vomiting, melena, dysphagia or
odynophagia. He denies any early satiety or unintentional weight loss.
Impression:
-Abdominal distention secondary to ascites, paracentesis of 5700mL, awaiting fluid analysis
-Decompensated alcoholic/Hep C liver cirrhosis, MELD 3.0= 20
-Macrocytic anemia, -> hemoglobin 6.5, patient now s/p 2 units PRBC needs colonoscopy has defered in past. Intermittent rectal bleeding as well.
-Chronic thrombocytopenia, stable-> 78
-Ascites-> on Lasix 40 mg daily and Aldactone 50 g daily
-Chronic hyponatremia-> stable 132
-Hyperbilirubinemia-> 2.1
-AFP now 30, was in the 10-12 range
-Hx Hep C s/p tx with Epclusa with SVR
Other pertinent medical history:
-Chronic pain
-GERD
-Hypertension
-Anxiety
Colonoscopy 04/13/2024- - One 15 to 18 mm polyp at the hepatic flexure,
removed using lift and cut and a hot snare and removed
with a cold snare. Resected and retrieved. Injected.
Treated with hot biopsy forceps. Ligated.
- One 4 mm polyp in the descending colon, removed with
a hot snare. Resected and retrieved. Clip was placed.
- Diverticulosis in the sigmoid colon, in the
descending colon and at the splenic flexure.
EGD 04/13/2024� - No gross lesions in the entire esophagus. No varices.
- Z-line variable, 42 cm from the incisors.
- Portal hypertensive gastropathy.
- Normal examined duodenum.
- No specimens collected.
Plan:
-History of decompensated liver disease, cirrhosis, underlying hep C/alcohol use
MELD 3.0 score is 20
Currently on Lasix 40 mg and Aldactone 50 mg for volume overload
Monitor electrolytes and replete as needed
Outpatient follow-up with Dr. Weaver
MRI without any evidence of liver lesions
-Status post polyp resection,had to use Evisco clip for ligation
Currently doing well. Received 2 units of packed red blood cells, 1 FFP
Monitor H&H, transfuse as needed
Will follow
Subjective
Subjective
Date of Service: April 14, 2024
Patient currently doing well, having formed stool this morning. No abdominal pain
Objective
Data Reviewed
Laboratory Data:
Laboratory Results
04/14/24 04:17
Laboratory Results
PT 17.8 Sec (11.4-14.6) H 04/13/24 06:48
INR 1.49 04/13/24 06:48
Phosphorus 3.8 mg/dl (2.5-4.5) 04/11/24 05:52
Magnesium 1.7 mg/dl (1.6-2.3) 04/14/24 04:17
Total Bilirubin 3.0 mg/dl (0.2-1.3) H 04/12/24 04:39
AST 41 U/L (17-59) 04/12/24 04:39
ALT 16 U/L (0-50) 04/12/24 04:39
Alkaline Phosphatase 85 U/L (38-126) 04/12/24 04:39
Lipase 330 U/L (23-300) H 04/10/24 23:47
Vital Signs and I&O:
Vital Signs
Temp Pulse Resp BP Pulse Ox
98.7 F 92 19 121/62 92
04/14/24 19:30 04/14/24 18:00 04/14/24 18:00 04/14/24 18:00 04/14/24 18:00
I&O
04/13/24 04/14/24 04/15/24
06:59 06:59 06:59
Intake Total 2520 / 2520 2080 / 2080 2110 / 2110
Output Total 1550 / 1550 375 / 375 1250 / 1250
Balance 970 / 970 1705 / 1705 860 / 860
Physical Exam
Physical Exam
GI: Soft and Non Tender
[2024-04-14] MEDS: SYMBICORT 160/4.5 MCG INHALER 2 PUFF INH (20:54)
--- NOTE | 2024-04-14 21:46 | PTCARENOTE ---
Pt received resting comfortably in bed. AAOx3 - can be anxious at times. SR/ST on the monitor. Lungs w/ exp wheezing/coarse. 92% on RA. Abd round/distended + BS. + 1 LLE and + 2 RLE edema. Pt ambulated to the BR w/ walker. IVF infusing.
[2024-04-14 23:48] LABS: Hematocrit 21.2 % (39.0-52.0); Hemoglobin 7.6 g/dL (13.0-18.0)
[2024-04-15] VITALS (15 sets, daily range): BP systolic 102–152; BP diastolic 56–71; PULSE 93; O2SAT 93; BMI 28.3
[2024-04-15] MEDS: ROCEPHIN 1000 MG IV (06:05)
[2024-04-15] MEDS: STERILE WATER FOR INJECTION 10 ML IV (06:05)
[2024-04-15 06:10] LABS: Hematocrit 22.3 % (39.0-52.0); Hemoglobin 7.6 g/dL (13.0-18.0); Mean Corp Hgb Conc. 34.1 g/dL (33.0-37.0); Mean Platelet Volume 9.1 fL (7.4-10.4); Platelet Count 56 10^3/uL (130-400); Red Blood Cell Count 2.45 10^6/uL (4.70-6.10); Red Cell Dist. Width 15.9 % (11.5-14.5); White Blood Cell Count 3.4 10^3/uL (4.8-10.8)
[2024-04-15 06:22] LABS: Blood Urea Nitrogen 8 mg/dl (9-20); Calcium 8.1 mg/dl (8.4-10.2); Carbon Dioxide 25 mmol/L (22-30); Chloride 101 mmol/L (98-107); Estimated Creatinine Clearance 109 ml/min; Glucose 101 mg/dl (70-99); Potassium 3.8 mmol/L (3.5-5.1); Sodium 131 mmol/L (135-145); eGFR > 60.00
[2024-04-15] MEDS: SYMBICORT 160/4.5 MCG INHALER 2 PUFF INH ×2 (07:39→19:58)
[2024-04-15] MEDS: SPIRIVA RESPIMAT 2.5 MCG 2 PUFF INH (07:39)
[2024-04-15] MEDS: NICODERM TRANSDERMAL 14 MG TRANSDERM (07:46)
[2024-04-15] MEDS: ALDACTONE 50 MG PO (07:46)
[2024-04-15] MEDS: LASIX 40 MG PO (07:46)
[2024-04-15] MEDS: PROTONIX 40 MG PO ×2 (07:46→19:54)
[2024-04-15] MEDS: MAG-TAB SR 84 MG PO ×2 (07:46→19:54)
[2024-04-15] MEDS: VITAMIN B1 100 MG PO ×2 (07:46→19:54)
[2024-04-15] MEDS: XANAX 1 MG PO ×2 (09:45→18:06)
--- NOTE | 2024-04-15 10:01 | PTCARENOTE ---
Assumed care of pt at 0645. AAOx3. NSR/ST on financial services education consultant. HRs 90-100s. SaO2 92% on room air. VSS. Abdomen distended. Tolerating full liquids. Pt ambulating hallway with PT. Plan to advance diet as tolerated. Trending hgb. Recheck H&H at 1100.
--- NOTE | 2024-04-15 10:12 | W.PN.GI.CBS2 ---
Today's Communication / Plan
-
Plan:
-History of decompensated liver disease, cirrhosis, underlying hep C/alcohol use
MELD 3.0 score is 20
Was on full liquid diet, okay for 2 g sodium diet.
Currently on Lasix 40 mg and Aldactone 50 mg for volume overload
Monitor electrolytes and replete as needed
Outpatient follow-up with Dr. Weaver
MRI without any evidence of liver lesions
-Status post polyp resection,had to use Evisco clip for ligation
Currently doing well. Hemodynamically stable. Received 2 units of packed red blood cells, 1 FFP
Hemoglobin stable without any further bloody bowel movements.
Continue to monitor.
Will follow
Assessment / Plan
-
58-year-old male with a past medical history significant for liver cirrhosis with history of alcohol abuse and hepatitis C status-post treatment and eradication last year, Klebsiella pneumonia, hypertension, GERD, current smoker, anxiety, who
presented to the emergency room with complaints of increased abdominal distention and lower extremity edema. We are being asked to evaluate for evaluation of ascites and anemia. Currently the patient presents with a hemoglobin of 6.9 down from
hemoglobin of 8.7 on 03/15/2024. He did receive 2 units packed red blood cells. Repeat hemoglobin is pending. WBC 4.3, platelets 78, INR 1.44, sodium 132, potassium 3.7, BUN 21, creatinine 0.9, total bilirubin 3.0, direct 0.8, AST 49, ALT 20, alk
phos 103, albumin 2.1, lipase 330. Patient had a paracentesis this morning and they removed 5700 mL, he is receiving albumin at this time. Analysis of fluid is pending. The patient denies any fevers, chills, nausea, vomiting, melena, dysphagia or
odynophagia. He denies any early satiety or unintentional weight loss.
Impression:
-Abdominal distention secondary to ascites, paracentesis of 5700mL, awaiting fluid analysis
-Decompensated alcoholic/Hep C liver cirrhosis, MELD 3.0= 20
-Macrocytic anemia, -> hemoglobin 6.5, patient now s/p 2 units PRBC needs colonoscopy has defered in past. Intermittent rectal bleeding as well.
-Chronic thrombocytopenia, stable-> 78
-Ascites-> on Lasix 40 mg daily and Aldactone 50 g daily
-Chronic hyponatremia-> stable 132
-Hyperbilirubinemia-> 2.1
-AFP now 30, was in the 10-12 range
-Hx Hep C s/p tx with Epclusa with SVR
Other pertinent medical history:
-Chronic pain
-GERD
-Hypertension
-Anxiety
Colonoscopy 04/13/2024- - One 15 to 18 mm polyp at the hepatic flexure,
removed using lift and cut and a hot snare and removed
with a cold snare. Resected and retrieved. Injected.
Treated with hot biopsy forceps. Ligated.
- One 4 mm polyp in the descending colon, removed with
a hot snare. Resected and retrieved. Clip was placed.
- Diverticulosis in the sigmoid colon, in the
descending colon and at the splenic flexure.
EGD 04/13/2024� - No gross lesions in the entire esophagus. No varices.
- Z-line variable, 42 cm from the incisors.
- Portal hypertensive gastropathy.
- Normal examined duodenum.
- No specimens collected.
Plan:
-History of decompensated liver disease, cirrhosis, underlying hep C/alcohol use
MELD 3.0 score is 20
Was on full liquid diet, okay for 2 g sodium diet.
Currently on Lasix 40 mg and Aldactone 50 mg for volume overload
Monitor electrolytes and replete as needed
Outpatient follow-up with Dr. Weaver
MRI without any evidence of liver lesions
-Status post polyp resection,had to use Evisco clip for ligation
Currently doing well. Hemodynamically stable. Received 2 units of packed red blood cells, 1 FFP
Hemoglobin stable without any further bloody bowel movements.
Continue to monitor.
Will follow
Subjective
Subjective
Date of Service: April 15, 2024
Patient without any complaints. No abdominal pain, nausea or vomiting. 1 brown bowel movement yesterday but nothing since.
Objective
Data Reviewed
Laboratory Data:
Laboratory Results
04/15/24 05:59
Laboratory Results
PT 17.8 Sec (11.4-14.6) H 04/13/24 06:48
INR 1.49 04/13/24 06:48
Phosphorus 3.8 mg/dl (2.5-4.5) 04/11/24 05:52
Magnesium 1.7 mg/dl (1.6-2.3) 04/14/24 04:17
Total Bilirubin 3.0 mg/dl (0.2-1.3) H 04/12/24 04:39
AST 41 U/L (17-59) 04/12/24 04:39
ALT 16 U/L (0-50) 04/12/24 04:39
Alkaline Phosphatase 85 U/L (38-126) 04/12/24 04:39
Lipase 330 U/L (23-300) H 04/10/24 23:47
Vital Signs and I&O:
Vital Signs
Temp Pulse Resp BP Pulse Ox
97.6 F 81 15 110/59 92
04/15/24 07:20 04/15/24 07:46 04/15/24 07:39 04/15/24 07:46 04/15/24 09:53
I&O
04/14/24 04/15/24 04/16/24
06:59 06:59 06:59
Intake Total 0 / 0 2110 / 2110 480 / 480
Output Total 375 / 375 1825 / 1825 750 / 750
Balance 1705 / 1705 285 / 285 -270 / -270
Physical Exam
Physical Exam
GI: Soft, Non Distended and Non Tender
[2024-04-15 11:26] LABS: Hematocrit 24.5 % (39.0-52.0); Hemoglobin 8.3 g/dL (13.0-18.0)
--- NOTE | 2024-04-15 11:34 | W.PN.HOSP.TC ---
Today's Communication/Plan
-
Tramadol has been changed to 50 mg BIDprn from HSprn for better pain control
Discussed case with GI who recommended monitoring for 1 more day
Assessment / Plan
Assessment / Plan
Physical Exam
General: Not in acute distress
HEENT: Moist mucous membranes
Respiratory: Decreased breath sounds at the bases
Cardiac: S1/S2, Regular Rhythm and Murmur (II/ MACHO)
GI: Distended. Nontender. Positive bowel sounds.
Musculoskeletal: No Cyanosis. Pitting edema at the bilateral lower extremities.
Neuro: Awake, Alert and Nonfocal/grossly intact
Assessment/Plan
Patient is a 58y M with PMH significant for cirrhosis who presents to ED complaining of abdominal distention.
Alcoholic Cirrhosis with Ascites and Thrombocytopenia
Portal hypertensive gastropathy
Colonic Polyps on Colonoscopy during this (April 2024) Hospitalization with post-polypectomy site bleeding
Diverticulosis
-Continue usual diuretic regimen and follow I/Os, weights, etc
-Consult IR for paracentesis
-5700 ascites fluid taken out on 04/11/24 -- no SBP; follow remaining studies
-Encourage abstinence from EtOH.
-Ceftriaxone while awaiting ascites fluid results
-MRI abdomen
-Continue Protonix
-2 g sodium diet
-Needs surveillance EGD every 1-2 years with for variceal screening.
-Outpatient follow-up with Dr. Weaver
-MRI without any evidence of liver lesions
Acute on Chronic Macrocytic Anemia with Heme-Positive Stool
Pancytopenia Likely Secondary to Cirrhosis
-Transfusion ordered in the ED. Stool brown / heme pos.
-2 units transfused on 04/11/24
-3rd unit transfused on 04/12/24 with good improvement in Hgb
-4th unit PRBC was transfused on 04/13/24
-5th unit PRBC was transfused on 04/13/24
-GI evaluation for additional recommendations.
-Continue to trend Hgb
-Transfuse additional PRBCs if needed.
-Due to bleeding during polypectomy on April 13, 2024, patient to be moved to IMU -- I also spoke with Dr. Floyd on April 13, 2024, patient needed a claw/evisco clip to stop the post-polypectomy bleeding, 1 unit FFP and 1 unit PRBCs were ordered,
Vitamin K has been ordered as well. If patient has further bleeding, IR and colorectal surgery will need to be consulted stat (IR and Colorectal Surgery have been notified but have NOT been consulted but will need to be STAT consulted if bleeding
occurs)
-Continue Q6H H&H
Hypokalemia
-Replaced
-Monitor BMP
ASCVD / CVA
-Hold aspirin due to bleeding above
COPD without acute exacerbation
-Continue nebs prn
Hypertension
-Continue spironolactone
Insomnia
-Continue alprazolam PRN
Chronic Right Upper Ext Pain
-Continue tramadol prn
-Continue lidocaine patch
DVT Prophylaxis: SCDs
Code Status: Full Code
Significant bleeding after polypectomy during colonoscopy, needing close monitoring in the IMU, and needing blood transfusion is a high risk encounter.
Anticipated Discharge: Within 24 hours
Subjective/Interval History
-
Date of Service: April 15, 2024
Patient was seen and examined. He reported 1 brown bowel movement yesterday.
Objective Data
-
Labs:
Laboratory Results
04/14/24 04/15/24 04/15/24
23:41 05:59 11:11
WBC 3.4 L
Hgb 7.6 L 7.6 L 8.3 L
Hct 21.2 L 22.3 L 24.5 L
Plt Count 56 L
Sodium 131 L
Potassium 3.8
Chloride 101
Carbon Dioxide 25
BUN 8 L
Creatinine 0.7
Glucose 101 H
Calcium 8.1 L
04/15/24 04/15/24
17:00 23:00
WBC
Hgb Pending Pending
Hct Pending Pending
Plt Count
Sodium
Potassium
Chloride
Carbon Dioxide
BUN
Creatinine
Glucose
Calcium
Vital Signs:
Vital Signs
Temp Pulse Resp BP Pulse Ox
97.6 F 81 15 110/59 92
04/15/24 07:20 04/15/24 07:46 04/15/24 07:39 04/15/24 07:46 04/15/24 09:53
I&O
04/14/24 04/15/24 04/16/24
06:59 06:59 06:59
Intake Total 2079 / 2079 2110 / 2110 480 / 480
Output Total 375 / 375 1825 / 1825 750 / 750
Balance 1705 / 1705 285 / 285 -270 / -270
[2024-04-15] MEDS: ULTRAM 50 MG PO ×2 (11:38→19:57)
[2024-04-15 17:36] LABS: Hematocrit 24.8 % (39.0-52.0); Hemoglobin 8.6 g/dL (13.0-18.0)
[2024-04-15] MEDS: LIDOCAINE 4% PATCH 2 PATCH TOPICAL (19:54)
[2024-04-15 23:24] LABS: Hematocrit 21.9 % (39.0-52.0); Hemoglobin 7.8 g/dL (13.0-18.0)
[2024-04-16] VITALS: BP 119/63
[2024-04-16 02:00] VITALS: BP 109/61
[2024-04-16 03:24] VITALS: BMI 29.8
[2024-04-16 04:00] VITALS: BP 101/60
--- NOTE | 2024-04-16 04:53 | PTCARENOTE ---
assumed care of patient, pt x1 assist to bathroom. able to make needs known. while sleeping pt placed on 2L NC, oxygen dropped to 80s on RA while sleeping. trending h/h- no signs of bleeding at present. care ongoing.
[2024-04-16] MEDS: ROCEPHIN 1000 MG IV (05:32)
[2024-04-16] MEDS: STERILE WATER FOR INJECTION 10 ML IV (05:33)
[2024-04-16 05:51] LABS: Hematocrit 22.5 % (39.0-52.0); Hemoglobin 7.9 g/dL (13.0-18.0); Mean Corp Hgb Conc. 35.1 g/dL (33.0-37.0); Mean Corpuscular Hgb 31.1 pg (27.0-31.0); Mean Corpuscular Volume 88.6 fL (80.0-94.0); Mean Platelet Volume 9.7 fL (7.4-10.4); Platelet Count 67 10^3/uL (130-400); Red Blood Cell Count 2.54 10^6/uL (4.70-6.10); Red Cell Dist. Width 15.8 % (11.5-14.5); White Blood Cell Count 3.9 10^3/uL (4.8-10.8)
[2024-04-16 06:00] VITALS: BP 109/61
[2024-04-16 06:05] LABS: ALT (SGPT) 18 U/L (0-50); AST (SGOT) 41 U/L (17-59); Albumin 2.3 g/dl (3.5-5.0); Alkaline Phosphatase 81 U/L (38-126); Blood Urea Nitrogen 8 mg/dl (9-20); Calcium 8.1 mg/dl (8.4-10.2); Carbon Dioxide 28 mmol/L (22-30); Chloride 99 mmol/L (98-107); Estimated Creatinine Clearance 122 ml/min; Glucose 103 mg/dl (70-99); Magnesium 1.7 mg/dl (1.6-2.3); Potassium 3.9 mmol/L (3.5-5.1); Sodium 131 mmol/L (135-145); Total Bilirubin 2.3 mg/dl (0.2-1.3); Total Protein 4.4 g/dl (6.3-8.2); eGFR > 60.00
[2024-04-16] MEDS: SPIRIVA RESPIMAT 2.5 MCG 2 PUFF INH (07:33)
[2024-04-16] MEDS: SYMBICORT 160/4.5 MCG INHALER 2 PUFF INH (07:34)
[2024-04-16] MEDS: XANAX 1 MG PO (07:54)
[2024-04-16 07:55] VITALS: BP 123/61
[2024-04-16] MEDS: MAG-TAB SR 84 MG PO (07:55)
[2024-04-16] MEDS: PROTONIX 40 MG PO (07:55)
[2024-04-16] MEDS: NICODERM TRANSDERMAL 14 MG TRANSDERM (07:55)
[2024-04-16] MEDS: LASIX 40 MG PO (07:55)
[2024-04-16] MEDS: VITAMIN B1 100 MG PO (07:55)
[2024-04-16] MEDS: ALDACTONE 50 MG PO (07:56)
--- NOTE | 2024-04-16 08:42 | W.PN.HOSP.TC ---
Today's Communication/Plan
-
Hemoglobin stable
Discharge home with home health care
Follow-up with GI in the office
Assessment / Plan
Assessment / Plan
Patient is a 58y M with PMH significant for cirrhosis who presents to ED complaining of abdominal distention.
Decompensated alcoholic cirrhosis
-Patient advised to avoid further alcohol use
-MRI abdomen did not show any hepatocellular carcinoma
-Low MELD score and no indication of steroid this admission
-Patient plan to follow-up with GI in office
Ascites
-Underwent 5.7 L ascitic fluid on 04/11, no SBP
-Discontinue further ceftriaxone at discharge
Portal hypertensive gastropathy
Post polypectomy bleeding
Diverticulosis
-EGD showing portal hypertensive gastropathy. Normal duodenum and no varices
-C-scope showing large polyp at hepatic flexure of 15 to 18 mm size which was removed with snare
-Patient had post polypectomy bleeding requiring IMU monitoring.
-Hemoglobin remained stable ~8 with no further bleeding in 24hrs
Acute on Chronic Macrocytic Anemia
Pancytopenia Likely Secondary to Cirrhosis
-S/p 5 unit of PRBC and 1 unit of FFP this admission
-Per Dr pierson - Due to bleeding during polypectomy on April 13, 2024, patient to be moved to IMU -- I also spoke with Dr. Floyd on April 13, 2024, patient needed a claw/evisco clip to stop the post-polypectomy bleeding, 1 unit FFP and 1 unit PRBCs
were ordered, Vitamin K has been ordered as well. If patient has further bleeding, IR and colorectal surgery will need to be consulted stat (IR and Colorectal Surgery have been notified but have NOT been consulted but will need to be STAT consulted
if bleeding occurs)
Hypokalemia
-Replaced
-Monitor BMP
ASCVD / CVA
-Hold aspirin due to bleeding above
COPD without acute exacerbation
-Continue nebs prn
Essential Hypertension
-Continue spironolactone
Insomnia
-Continue alprazolam PRN
Hyponatremia
-from liver disease. stable
Chronic Right Upper Ext Pain
-Continue tramadol prn
-Continue lidocaine patch
DVT Prophylaxis: SCDs
Code Status: Full Code
More than 30 minutes spent in discharge including
Final examination of the patient
Summarizing hospital stay
Instructions for continuing care to all relevant caregivers
Preparation of discharge records, prescriptions, and referral forms
Total time spent (in minutes): 43 mins
Anticipated Discharge: Today
Subjective/Interval History
-
Date of Service: April 16, 2024
Resting comfortably in bed
Denies of having any abdominal pain nausea vomiting
Denies of any black stools/hematemesis/hematochezia overnight
Objective Data
-
Labs:
Laboratory Results
04/15/24 04/16/24
23:17 05:33
WBC 3.9 L
Hgb 7.8 L 7.9 L
Hct 21.9 L 22.5 L
Plt Count 67 L
Sodium 131 L
Potassium 3.9
Chloride 99
Carbon Dioxide 28
BUN 8 L
Creatinine 0.7
Glucose 103 H
Calcium 8.1 L
Total Bilirubin 2.3 H
AST 41
ALT 18
Alkaline Phosphatase 81
Vital Signs:
Vital Signs
Temp Pulse Resp BP Pulse Ox
97.9 F 113 18 123/61 96
04/16/24 03:24 04/16/24 07:56 04/16/24 07:37 04/16/24 07:56 04/16/24 07:37
I&O
04/15/24 04/16/24 04/17/24
06:59 06:59 06:59
Intake Total 2110 / 2110 720 / 720
Output Total 1825 / 1825 1175 / 1175
Balance 285 / 285 -455 / -455
Review of Systems
-
Respiratory: Reports No Symptoms
Cardiac: Reports No Symptoms
Abdomen/GI: Reports No Symptoms
Physical Exam
-
General: No Apparent Distress
HEENT: Oxygen (2L NC)
Respiratory: Clear to Auscultation
Cardiac: Regular Rhythm and S1/S2; Negative Murmur, Rub or Gallop
GI: Soft and Distended; Negative Organomegaly
Musculoskeletal: No Edema
Skin: Negative Rash
Neuro: Awake, Alert, Oriented and Nonfocal/Grossly Intact
--- NOTE | 2024-04-16 12:08 | PN.CDI ---
CDI
- -
CDI:
Physician Documentation Request
Admit Date: 04/11/24 05:14
Dear Doctor García,
Please review the following and provide your response in the progress notes.
Clinical Indicators:
Pt admitted with cirrhosis of liver with ascites
6/ PN: 'Transfusion ordered in the ED. Stool brown / heme pos.
-2 units transfused on 04/11/24
-3rd unit transfused on 04/12/24 with good improvement in Hgb
-4th unit PRBC was transfused on 04/13/24
-5th unit PRBC was transfused on 04/13/24
on April 13, 2024, patient needed a claw/evisco clip to stop the post-polypectomy bleeding, 1 unit FFP and 1 unit PRBCs were ordered, Vitamin K has been ordered as well.
Based on the above, could you clarify, in your progress note, which of the following is the most likely type of anemia you are evaluating, monitoring and/or treating?
Acute blood loss anemia
Acute on chronic macrocytic anemia only
Anemia of chronic disease - indicate if neoplastic disease, CKD or other
Other
Use of terms such as suspected, likely, concern for, or probable (associated with a specific diagnosis that is being evaluated, monitored, or treated as if it exists) are acceptable and can be coded in the inpatient setting, when documented at the
time of discharge.
Thank you,
Tere Abebe RN, BSN
CDI Specialist
Available via [employer] [employer]
Please use your independent medical judgment in providing your response.
--- NOTE | 2024-04-16 15:26 | VNURNOTE ---
[facility] resumption of care completed in [facility] 04/13 after review of chart.
--- NOTE | 2024-04-16 18:09 | W.DCSUMMARY ---
Discharge Summary
Discharge Data
Date of Admission: 04/11/24
Date of Discharge: 04/16/24
-
Pending Results: No
Hospital Course
Discharging Physician : Dr Sai Mariano
Disposition : Home
Primary care physician : Dr Drake Barillas
Principal Discharge diagnosis :
Ascites
Decompensated alcoholic/hepatitis C related cirrhosis
Intermittent gastrointestinal bleed
Polypectomy causing some bleeding
Portal gastropathy
Acute blood loss anemia
Chronic Discharge diagnosis :
Chronic pain and narcotic dependence
Alcohol use disorder
Gastroesophageal reflux disease
Essential hypertension
Chronic microcytic anemia
History of stroke
Chronic obstructive pulmonary disease without flareup
Hospital Course :
Patient is a 58-year-old male with above-mentioned past medical history came to ER for having new onset of shortness of breath and abdominal distention. Patient admitted of having few drinks over .
Ascites -patient with known history of alcoholic cirrhosis and have undergone paracentesis in the past. Most recent was on 03/2724. Interventional radiology was consulted and patient underwent paracentesis of 5.7 L fluid on 04/11, SBP was ruled out.
Patient was maintained on empiric Rocephin during the hospital stay which was discontinued at discharge.
Portal hypertensive gastropathy, post polypectomy bleeding -patient had significant anemia from intermittent rectal bleeding related blood loss . Patient have declined colonoscopy in the past although agreeable this admission. Patient underwent
EGD which showed portal gastropathy with normal duodenum. Patient underwent colon polyp removal for which patient developed some bleeding and required blood transfusion as well. Patient required total 5 U of blood transfusion this admission.
Decompensated alcoholic/hepatitis C liver cirrhosis -patient MELD score was elevated to 20 this admission. AFP was elevated and follow-up MRI abdomen ruled out any hepatocellular carcinoma. No hepatic encephalopathy. Patient was maintained on
Lasix and Aldactone therapy for associated volume overload.
Post clinical improvement patient was discharged home with follow-up with gastroenterology in office.
Important imaging findings :
None
Procedure findings :
None
Discharge Plan
-
Patient Disposition: Home with Home Care
Discharge Diagnosis/Procedures: GI bleed from polypectomy, decompensated liver cirrhosis, ascites
Condition: Fair
Diet: 2 Gram Sodium
Activity: With assistance
Driving Restrictions: No driving
Bathing Restrictions: OK to Shower
Other Services: VN and PT
Referrals:
Jennifer Weaver MD [Active] - in one to two weeks
Drake Goss DO [Family Provider] - in one week
Prescriptions:
New
nicotine 14 mg/24 hr Patch 24 Hour
14 mg transdermal DAILY Qty: 7 0RF
pantoprazole 40 mg Tablet,Delayed Release (Dr/Ec)
40 mg PO BID 30 Days Qty: 60 0RF
tramadol 50 mg tablet
50 mg PO BID PRN (Reason: mod sev pain) Qty: 14 0RF
polyethylene glycol 3350 [Miralax] 17 gram powder in packet
17 g PO DAILY Qty: 30 1RF
Continued
furosemide [Lasix] 40 mg Tablet
40 mg PO DAILY
lidocaine 4 % adhesive patch,medicated
2 patch topical DAILYPRN PRN (Reason: right shoulder and knee)
albuterol sulfate 90 mcg/actuation HFA aerosol inhaler
2 puff inhalation R Q6HPRN PRN (Reason: shortness of breath or wheezing)
alprazolam 1 mg tablet
1 mg PO BID
thiamine HCl (vitamin B1) 100 mg tablet
100 mg PO BID
aspirin [Children's Aspirin] 81 mg tablet,chewable
81 mg PO DAILY
spironolactone 50 mg Tablet
50 mg PO DAILY Qty: 30 1RF
magnesium oxide 200 mg magnesium Tablet
200 mg PO BID
Breztri Aerosphere 160-9-4.8 mcg/actuation Hfa Aerosol Inhaler
2 inh INHALATION R BID
Patient Comments:
Patient is getting free samples
Discontinued
tramadol 50 mg Tablet
100 mg PO HSPRN PRN (Reason: severe pain)
nicotine 14 mg/24 hr patch 24 hour
14 mg transdermal DAILY
pantoprazole 40 mg tablet,delayed release (DR/EC)
40 mg PO DAILY
docusate sodium 100 mg Capsule
100 mg PO DAILYPRN PRN (Reason: constipation)
Discharge Orders:
Discharge Patient (As Directed); Ordered 04/16/24
Ordered By: Sai Mariano
Discharge Date and Time
Discharge Date/Time: 04/16/24 13:08
Print Language: [place]
== END 2024-04-16 13:08 | disposition home health service (06) | DRG 432 ==
LOC: IMU 05:14
PROVIDERS: Clinical Nurse Specialist Family Health; Hospitalist; Internal Medicine Gastroenterology; Nurse Practitioner; Nurse Practitioner Adult Health; Nurse Practitioner Family; Nurse Practitioner Gerontology; Radiology Vascular & Interventional Radiology; Student in an Organized Health Care Education/Training Program; ADMITTING PHYSICIAN Hospitalist; ATTENDING PHYSICIAN Hospitalist; CONSULT PHYSICIAN Internal Medicine; EMERGENCY PHYSICIAN Student in an Organized Health Care Education/Training Program; FAMILY PHYSICIAN Internal Medicine
PROC: 30233N1 Transfusion of Nonautologous Red Blood Cells into Peripheral Vein, Percutaneous Approach (ICD-10-PCS; 2024-04-11)
PROC: 0W9G3ZZ Drainage of Peritoneal Cavity, Percutaneous Approach (ICD-10-PCS; 2024-04-11)
PROC: 0DBM8ZZ Excision of Descending Colon, Via Natural or Artificial Opening Endoscopic (ICD-10-PCS; 2024-04-13)
PROC: 0DJ08ZZ Inspection of Upper Intestinal Tract, Via Natural or Artificial Opening Endoscopic (ICD-10-PCS; 2024-04-13)
PROC: 0W3P8ZZ Control Bleeding in Gastrointestinal Tract, Via Natural or Artificial Opening Endoscopic (ICD-10-PCS; 2024-04-13)
PROC: 0DBL8ZZ Excision of Transverse Colon, Via Natural or Artificial Opening Endoscopic (ICD-10-PCS; 2024-04-13)
PROC: 30233K1 Transfusion of Nonautologous Frozen Plasma into Peripheral Vein, Percutaneous Approach (ICD-10-PCS; 2024-04-13)
DX: K70.31 Alcoholic cirrhosis of liver with ascites (principal); K57.31 Diverticulosis of large intestine without perforation or abscess with bleeding; D61.818 Other pancytopenia; D62 Acute posthemorrhagic anemia; K91.840 Postprocedural hemorrhage of a digestive system organ or structure following a digestive system procedure; F11.20 Opioid dependence, uncomplicated; K76.6 Portal hypertension; E87.1 Hypo-osmolality and hyponatremia; B19.20 Unspecified viral hepatitis C without hepatic coma; K63.5 Polyp of colon; D50.0 Iron deficiency anemia secondary to blood loss (chronic); K31.89 Other diseases of stomach and duodenum; Y83.8 Other surgical procedures as the cause of abnormal reaction of the patient, or of later complication, without mention of misadventure at the time of the procedure; G89.29 Other chronic pain; M79.601 Pain in right arm; F10.10 Alcohol abuse, uncomplicated; E87.70 Fluid overload, unspecified; K21.9 Gastro-esophageal reflux disease without esophagitis; I10 Essential (primary) hypertension; E87.6 Hypokalemia; J44.9 Chronic obstructive pulmonary disease, unspecified; G47.00 Insomnia, unspecified; F41.9 Anxiety disorder, unspecified; I25.10 Atherosclerotic heart disease of native coronary artery without angina pectoris; K22.89 Other specified disease of esophagus; F17.200 Nicotine dependence, unspecified, uncomplicated; Z86.73 Personal history of transient ischemic attack (TIA), and cerebral infarction without residual deficits; Z79.82 Long term (current) use of aspirin
CPT/HCPCS: 88305; 49083; 71046; 74183; 76705; 80048; 80053; 80076; 82042; 82248; 83605; 83615; 83690; 83735; 83880; 84100; 84157; 84484; 85014; 85018; 85025; 85027; 85610; 86850; 86900; 86901; 86920; 87015; 87070; 87205; 88112; 89051; 93005; 94640; 97116; 97530; 99406; A9581; C1760; P9016; P9047; P9059

== ENCOUNTER 2024-04-17 14:11 | Inpatient (IN) | payer BC, SELFPAY ==
[2024-04-17 11:13] VITALS: BMI 30.1
[2024-04-17 11:16] VITALS: BP 105/53
--- NOTE | 2024-04-17 11:43 | ED.GENMED ---
History of Present Illness
General
Chief Complaint: Rectal Bleeding
Source: patient and spouse
Exam Limitations: none
Time Seen by Provider: 04/17/24 11:33
Nursing documentation reviewed up to this point in time: agreed with
Travel History
Have you had any contact with someone who has COVID-19?: No
Do you have any symptoms of coronavirus? Fever > 100 degrees, chills, cough, shortness of breath, sore throat, loss of taste or smell, muscle aches, or headache?: No
History of Present Illness
History of Present Illness:
58 yo male w h/o Cirrhosis of liver, Hep C, admitted 04/11 to 04/16 for ascites, decompensated alcoholic/hepatitis C related cirrhosis, intermittent GI bleed, polypectomy causing some bleeding, portal gastropathy, acute blood loss anemia. Had
paracentesis of 5.7 L of fluid on 04/11. Patient had a significant amount of bleeding with significant anemia post polypectomy.
Had colonoscopy and underwent colon polyp removal, developed bleeding afterwards and required blood transfusion. Patient required a total of 5 units of blood transfusion during that admission.
Patient was to follow-up with GI but today noted blood mixed in with his stool. He denies feeling weak or dizzy, denies CP, SOB, abdominal pain. Does have hx hemorrhoids
Hgb on discharge was 7.9
Past History
Past History
ED Past Medical History: COPD, CVA ( With right sided weakness), HTN and Other (Chronic alcohol use, alcoholic cirrhosis, Back pain, Meningitis, PNA, Hep C, UTI); Negative Asthma, Hypercholesterolemia or NIDDM
ED Past Surgical History: Other (Right hernia repair)
Social History
Tobacco: Smoker
Alcohol: Former
Drug: None
Personal:
Living: with family
Employment: Employed
Family History
Family History: Diabetes and Other
Review of Systems
Review of Systems
Allergies reviewed?: Yes
All Other Systems: ROS reviewed and negative except as documented in HPI and ROS
Constitutional: Denies fever, fatigue or chills
Respiratory: Denies trouble breathing
Cardiac: Denies chest pain
ABD/GI: Reports bloody stools; Denies abdominal pain, nausea, vomiting or diarrhea
: Denies dysuria, frequency or difficulty voiding
Musculoskeletal: Denies edema
Skin: Reports no symptoms
Neurological: Reports no symptoms
Phy Exam
Physical Exam
Physical Exam:
GENERAL: No acute distress. A&Ox3.
CONSTITUTIONAL: Afebrile.
EYES: PERRL, conjunctivae normal
ENMT: moist mucus membranes, Pharynx nl
RESPIRATORY: Regular respirations, nonlabored, lungs clear.
CARDIOVASCULAR: Regular rate and rhythm, no murmurs, no rubs.
GI: Soft, nontender, normal BS
Rectal: Hemorrhoid tags, no active bleeding, +maroon colored soft stool, heme positive
MUSCULOSKELETAL: Moves with ease. Well perfused.
SKIN: Warm, dry, pink
PSYCH: Normal mood and affect. Well kept, interactive and appropriate
NEUROLOGIC: Awake, alert and oriented. No focal neurological deficits
Course
Orders/Labs/Results
Orders:
Orders
04/17/24 11:57
Type+Screen Urgent
Complete Blood Count/With Diff Urgent
04/17/24 11:58
Comprehensive Metabolic Panel Urgent
04/17/24 13:45
Admit/Transfer Patient As Directed
Co-Sign Provider:
Level of Care: Inpatient admission
Assign to:: Medical/Surgical
Physician / Group: Sai Mariano
Diagnosis: recurrent GI bleed
Reason for Hospitalization: recurrent GI bleed
Expected length of stay greater than two midnights?: Yes
ELOS- Estimated Length of Stay in days: 2
I certify the patient meets the requirements for IP care: Yes
04/17/24 13:47
Code Status As Directed
Resuscitation Status: Full Code
04/17/24 14:49
GASTROINTESTINAL CONSULT Routine
Consulting Provider: Lola Tellez
Was physician already notified: Yes
Reason for consult: gi bleed
04/17/24 15:38
Lidocaine [Lidocaine 4% Patch] 2 patch TOPICAL DAILYPRN PRN
Tramadol HCl [Ultram] 50 mg PO BID PRN
04/17/24 15:38
Activity As Directed
Activity Level: With Assistance
INT (Intravenous Needle Therapy) As Directed
Comment: Place 2 IV catheters of the largest bore possible until stable
Pneumatic Compression Sleeves As Directed
Type: Knee high
Vital Signs As Directed
Frequency: Per unit guidelines
DX Deep Vein Thrombosis Video Routine
04/17/24 16:36
Albuterol [ProAIR HFA INHALER] 2 puff INH R Q6HPRN PRN
04/17/24 20:00
Alprazolam [Xanax] 1 mg PO BID
04/17/24 21:00
H&H Routine
04/17/24 22:00
Docusate Sodium [Colace] 100 mg PO HS
04/18/24 06:00
Complete Blood Count/No Diff IN AM
Comprehensive Metabolic Panel IN AM
Prothrombin Time IN AM
04/18/24 08:00
Furosemide [Lasix] 40 mg PO DAILY
Nicotine [Nicoderm Transdermal] 14 mg TRANSDERM DAILY
Pantoprazole [Protonix] 40 mg PO DAILY
Spironolactone [Aldactone] 50 mg PO DAILY
Thiamine HCl [Vitamin B1] 100 mg PO DAILY
Abnormal Lab Results
04/17/24 04/17/24
11:57 11:58
WBC 3.9 L 10^3/uL
(4.8-10.8)
RBC 2.65 L 10^6/uL
(4.70-6.10)
Hgb 8.1 L g/dL
(13.0-18.0)
Hct 23.9 L %
(39.0-52.0)
RDW 15.8 H %
(11.5-14.5)
Plt Count 75 L 10^3/uL
(130-400)
Absolute Lymphs (auto) 0.7 L 10^3/uL
(1.2-3.4)
Lymphocytes % 17.1 L %
(20.5-51.1)
Monocytes % 9.8 H %
(1.7-9.3)
Sodium 131 L mmol/L
(135-145)
Glucose 102 H mg/dl
(70-99)
Calcium 8.1 L mg/dl
(8.4-10.2)
Total Bilirubin 2.5 H mg/dl
(0.2-1.3)
Total Protein 4.5 L g/dl
(6.3-8.2)
Albumin 2.4 L g/dl
(3.5-5.0)
04/17/24 11:57
04/17/24 11:58
Vital Signs
Initial and Last Documented VS:
Initial Vital Signs
Temp Pulse Resp BP Pulse Ox
98.3 F 91 18 105/53 94
04/17/24 11:16 04/17/24 11:16 04/17/24 11:16 04/17/24 11:16 04/17/24 11:16
Last Documented Vital Signs
Temp Pulse Resp BP Pulse Ox
98.0 F 85 20 122/61 95
04/17/24 15:43 04/17/24 15:43 04/17/24 15:43 04/17/24 15:43 04/17/24 15:43
Car Construction Superintendent consulted with Physician
Car Construction Superintendent consulted with physician?: Yes
Name of Physician Consulted: Xavi
MDM/Problems Addressed
Differential Diagnosis Includes:
GI bleed, hemorrhoid bleeding
MDM/Problems Addressed:
58 yo male w h/o Cirrhosis of liver, Hep C, admitted 04/11 to 04/16 for ascites, decompensated alcoholic/hepatitis C related cirrhosis, intermittent GI bleed, polypectomy causing some bleeding, portal gastropathy, acute blood loss anemia. Had
paracentesis of 5.7 L of fluid on 04/11. Patient had a significant amount of bleeding with significant anemia post polypectomy.
Had colonoscopy and underwent colon polyp removal, developed bleeding afterwards and required blood transfusion. Patient required a total of 5 units of blood transfusion during that admission.
Patient was to follow-up with GI but today noted blood mixed in with his stool. He denies feeling weak or dizzy, denies CP, SOB, abdominal pain. Does have hx hemorrhoids
Hgb on discharge was 7.9
12:40 p.m.
CBC/CMP with no clinically significant abnormality
Hemoglobin 8.[address] Hurley who agrees that with recent complicated GI bleed now with hematochezia, patient should be admitted for serial hemoglobins
Patient is stable
Hospitalist notified of admission
Chronic conditions affecting care: Other (Hepatitis, cirrhosis of liver, bleeding polyp from colon recently)
*Critical Care Note
Total Time (30-74mins, 75-104mins- exclusive of procedures): Not Applicable
ED Attending Note
-
Portions of this chart may have been created with voice recognition software.� Occasional wrong word or��sound alike� substitutions may have occurred due to the inherent limitations of voice recognition software.
Discharge Plan
Departure
Patient Disposition: Admit
Date of Disposition: 04/17/24
Time of Disposition: 12:42
Admit to: Med/Surg
Presentation/result/management discussed w/ accepting MD/DO: Hospitalist
Condition: Fair
Discharge Problem:
Hematochezia
Interventions
Interventions:
*Risk Screen - Suicide Last Done: 04/17/24 11:16
*Neglect/Abuse Screening Last Done: 04/17/24 11:16
ED- Fall Risk Assessment Last Done: 04/17/24 11:45
*ED COVID-19 Vaccine History Last Done: 04/17/24 11:16
*Nursing Disposition Last Done: 04/17/24 15:37
SY-Tbjios-Zxusfzayae Assessment Last Done: 04/17/24 11:45
ED- Cardiac Assessment Last Done: 04/17/24 11:45
ED- Pulmonary Assessment Last Done: 04/17/24 11:45
Discharge Date and Time
Discharge Date/Time: 04/17/24 15:37
[2024-04-17 12:00] VITALS: BP 108/61
[2024-04-17 12:22] LABS: % Eosinophils 2.8 % (0-6); % Immature Granulocytes 0.5 % (0-0.5); % Lymphocytes 17.1 % (20.5-51.1); % Monocytes 9.8 % (1.7-9.3); % Neutrophils 68.8 % (42.2-75.2); Absolute Eosinophils 0.1 10^3/uL (0-0.7); Absolute Lymphocytes 0.7 10^3/uL (1.2-3.4); Absolute Monocytes 0.4 10^3/uL (0.1-0.6); Absolute Neutrophils 2.7 10^3/uL (1.4-6.5); Hematocrit 23.9 % (39.0-52.0); Hemoglobin 8.1 g/dL (13.0-18.0); Mean Corp Hgb Conc. 33.9 g/dL (33.0-37.0); Mean Corpuscular Hgb 30.6 pg (27.0-31.0); Mean Corpuscular Volume 90.2 fL (80.0-94.0); Mean Platelet Volume 9.8 fL (7.4-10.4); Nucleated Red Blood Cells % 0 % (-); Platelet Count 75 10^3/uL (130-400); Red Blood Cell Count 2.65 10^6/uL (4.70-6.10); Red Cell Dist. Width 15.8 % (11.5-14.5); White Blood Cell Count 3.9 10^3/uL (4.8-10.8)
[2024-04-17 12:29] LABS: ALT (SGPT) 19 U/L (0-50); AST (SGOT) 46 U/L (17-59); Albumin 2.4 g/dl (3.5-5.0); Alkaline Phosphatase 84 U/L (38-126); Blood Urea Nitrogen 12 mg/dl (9-20); Calcium 8.1 mg/dl (8.4-10.2); Carbon Dioxide 30 mmol/L (22-30); Chloride 98 mmol/L (98-107); Estimated Creatinine Clearance 95 ml/min; Glucose 102 mg/dl (70-99); Potassium 4.1 mmol/L (3.5-5.1); Sodium 131 mmol/L (135-145); Total Bilirubin 2.5 mg/dl (0.2-1.3); Total Protein 4.5 g/dl (6.3-8.2); eGFR > 60.00
[2024-04-17 13:00] VITALS: BP 104/59
--- NOTE | 2024-04-17 13:43 | CON.GI ---
Addendum entered and electronically signed by Lola Tellez DO 04/17/24 15:19:
Patient seen and examined independently of MARCIA. I agree with her note with my additions below
Christophe is a 58-year-old male with alcoholic/eradicated hep C decompensated cirrhosis with ascites who was recently here and underwent multiple exams including an endoscopy and colonoscopy. He had a polypectomy at the hepatic flexure which bled
significantly requiring multiple modalities for hemostasis including a large ovesco clip he also required. Packed red blood cells and FFP. He comes in after being discharged yesterday after having a small amount of burgundy clot. Fortunately his
hemoglobin is stable from discharge. On discharge he was 7.9 and today is 8.1. He has chronic thrombocytopenia from his cirrhosis, today at 75., BUN is 12, creatinine 0.9
# Small amount of burgundy clot from rectum otherwise hemodynamically stable with a stable hemoglobin from discharge yesterday
-- In the setting of his significant comorbidities including cirrhosis would keep him overnight for observation to monitor for any significant bleeding
-- Bleeding is likely secondary to the polypectomy requiring multiple modalities for hemostasis at the hepatic flexure
Full liquid diet--
-- If he has clinically significant bleeding, CT angio the oVesco clip can help guide location
-- Patient needs to be on ceftriaxone in the setting of GI bleeding in a cirrhotic
Original Note:
Consultation
-
Date/Time Consultation Requested: 04/17/24 1315
Date/Time Consultation Performed: 04/17/24 1320
Requesting Provider: Dr. Mariano
Performing Provider: Dr. Tellez/MARCIA Campo
Reason for Consultation: rectal bleeding
Medical History
Chief Complaint / HPI
Chief Complaint: rectal bleeding
History of Present Illness:
58-year-old male with a past medical history significant for liver cirrhosis with history of alcohol abuse and hepatitis C status-post treatment and eradication last year, Klebsiella pneumonia, hypertension, thrombocytopenia, GERD, current smoker,
but quit this past admission, anxiety, just DC yesterday after admission for abdominal distention, lower extremity edema and anemia. He alos had hx of elevated AFP of 30 with negative MRI for HCC. He had EGD/COLO with polypectomy requiring Evesco
clip PRBC/FFP that will be detailed who presented to the emergency room with complaints of blood mixed in with his stool. We are being asked to evaluate for post polypectomy bleeding. The patient has been followed by Dr. Weaver in the office for
management of hepatitis C and alcoholic liver cirrhosis with ascites, last seen in the office in July 2023. He was treated with Epclusa for 8 weeks (was supposed to be 12 weeks but he did not take the full course) for hep C and eradication has
been confirmed based on hep C testing. He did have somewhat of a chronically elevated bilirubin and LDH, haptoglobin, and reticulocyte count were ordered, hemolysis was ruled out. The patient was last seen in the hospital in March 2024 with ascites.
He had an ultrasound with Doppler that was negative for PVT in March. During that time he had a paracentesis (negative for SBP/cytology negative) and his diuretics were increased. He is currently on Lasix 40 mg daily and Aldactone 50 mg p.o. daily.
He was to follow 2 g sodium diet weigh himself daily. The patient was admitted last week for a Hgb 6.9. The patient was transfused a total of 5 units packed red blood cells and 1 unit of FFP during his hospitalization from 04/10/24 through 04/16/2024.
He did receive vitamin K as well. Patient did have an EGD and colonoscopy on 04/13/2024. EGD showed no gross lesions in the entire esophagus. No varices. Z-line was variable. There was portal hypertensive gastropathy. Colonoscopy showed one 15
to 18 mm polyp at the hepatic flexure removed using lift and cut and hot snare and removed with a cold snare. Resected and retrieved. This was injected. Treated with hot biopsy forceps. Ligated. 10 Vesco clip was successfully placed. Bleeding
stopped at the end of the procedure. 4 mm polyp found in the descending colon. 1 hemostatic clip was placed. Few small mouth diverticula found in sigmoid colon, descending colon and splenic flexure.Patient initially had bloody bowel movements
after the colonoscopy then they became brown. At time of discharge patient was tolerating solid diet and had brown bowel movements. The patient states that when he went home he had 2 brown bowel movements. He states that this a.m. he had a bowel
movement with maroon/clotted blood small amount less than a handful mixed in with his bowel movement. There was blood in the bowl and on the tissue with wiping. He proceeded to come to the emergency room. He denies any fevers, chills, nausea,
vomiting, melena, dysphagia or odynophagia. He does take aspirin 81 mg daily. He is abstinent of alcohol and smoking.
Past Medical History
Past Medical History: COPD, CVA, HTN and Other (EtOH abuse, hepatitis C status posttreatment and eradication, decompensated alcoholic liver cirrhosis with ascites, chronic pain, current cigarette smoker, chronic thrombocytopenia, chronic
hyponatremia, insomnia)
Past Surgical History: Other (Tooth extraction, spinal fluid leak with patching 2001)
Social History
Tobacco: Smoker
Alcohol: Chronic Alcoholic
Drug: None
Personal:
Living: With Family
Family History
Family History: Other (No family history gastrointestinal malignancy or IBD)
Allergies / Home Medications
Allergy/AdvReac Type Severity Reaction Status Date / Time
No Known Allergies Allergy Verified 04/17/24 11:16
�Medication �Instructions �Recorded
albuterol sulfate 90 mcg/actuation 2 puff inhalation R Q6HPRN PRN 03/13/24
aerosol inhaler shortness of breath or wheezing
alprazolam 1 mg tablet 1 mg PO BID anxiety 03/13/24
aspirin 81 mg chewable tablet 81 mg PO DAILY Blood Clot 03/13/24
(Children's Aspirin) Prevention/Tx
furosemide 40 mg tablet (Lasix) 40 mg PO DAILY Fluid 03/13/24
Retention/Swelling
lidocaine 4 % topical patch 2 patch topical DAILYPRN PRN right 03/13/24
shoulder and knee
thiamine HCl (vitamin B1) 100 mg 100 mg PO DAILY Supplement 03/13/24
tablet
spironolactone 50 mg tablet 50 mg PO DAILY #30 tabs 03/15/24
budesonide 160 mcg-glycopyr 9 2 inh inhalation R BID 04/11/24
mcg-formot 4.8 mcg/actuation HFA Lung/Breathing Issues
inhaler (Breztri Aerosphere)
magnesium oxide 400 mg PO BID Supplement 04/11/24
nicotine 14 mg/24 hr daily 14 mg transdermal DAILY #7 ea 04/16/24
transdermal patch
docusate sodium 100 mg tablet 100 mg PO HS 04/17/24
pantoprazole 40 mg tablet,delayed 40 mg PO DAILY 04/17/24
release
tramadol 50 mg tablet 50 mg PO BID mod sev pain 04/17/24
Review of Systems
-
All other systems: A 12 pt ROS was Negative except as stated above in HPI
Vital Signs
Temp Pulse Resp BP Pulse Ox
98.3 F 97 14 108/61 94
04/17/24 11:16 04/17/24 12:15 04/17/24 12:15 04/17/24 12:00 04/17/24 11:16
Physical Exam
Exam
General: No Apparent Distress
HEENT: Anicteric
Respiratory: Clear (anterior)
Cardiac: Regular Rhythm
GI: Soft, Non Tender, Non Distended and Normal Bowel Sounds
Rectal: Maroon Stools
Musculoskeletal: Edema (+1 DAWSON)
Skin: Warm and Dry
Neuro: AO x 3
Psych: Calm
Results
WBC 3.9 10^3/uL (4.8-10.8) L 04/17/24 11:57
Hgb 8.1 g/dL (13.0-18.0) L 04/17/24 11:57
Hct 23.9 % (39.0-52.0) L 04/17/24 11:57
MCV 90.2 fL (80.0-94.0) 04/17/24 11:57
Plt Count 75 10^3/uL (130-400) L 04/17/24 11:57
Absolute Neuts (auto) 2.7 10^3/uL (1.4-6.5) 04/17/24 11:57
Sodium 131 mmol/L (135-145) L 04/17/24 11:58
Potassium 4.1 mmol/L (3.5-5.1) 04/17/24 11:58
Chloride 98 mmol/L (98-107) 04/17/24 11:58
Carbon Dioxide 30 mmol/L (22-30) 04/17/24 11:58
BUN 12 mg/dl (9-20) 04/17/24 11:58
Creatinine 0.9 mg/dL (0.7-1.3) 04/17/24 11:58
Calcium 8.1 mg/dl (8.4-10.2) L 04/17/24 11:58
Total Bilirubin 2.5 mg/dl (0.2-1.3) H 04/17/24 11:58
AST 46 U/L (17-59) 04/17/24 11:58
ALT 19 U/L (0-50) 04/17/24 11:58
Alkaline Phosphatase 84 U/L (38-126) 04/17/24 11:58
Diagnostic Image Results:
Prior GI Procedures:
Colonoscopy 04/13/2024- - One 15 to 18 mm polyp at the hepatic flexure,
removed using lift and cut and a hot snare and removed
with a cold snare. Resected and retrieved. Injected.
Treated with hot biopsy forceps. Ligated.
- One 4 mm polyp in the descending colon, removed with
a hot snare. Resected and retrieved. Clip was placed.
- Diverticulosis in the sigmoid colon, in the
descending colon and at the splenic flexure.
EGD 04/13/2024� - No gross lesions in the entire esophagus. No varices.
- Z-line variable, 42 cm from the incisors.
- Portal hypertensive gastropathy.
- Normal examined duodenum.
- No specimens collected.
04/11/2024 MRI Abd with and without:
IMPRESSION: Examination limited by motion artifact.
CT may be useful as the next surveillance imaging examination, as perhaps there would be less motion artifact.
Given this limitation, there is no MR evidence for hepatocellular carcinoma.
Findings of cirrhosis with ascites, splenomegaly, and prominent varices within the abdomen, and extending around the distal esophagus.
Electronically signed by Malachi Watters MD , 04/11/2024 6:14 PM
Assessment / Plan
-
58-year-old male with a past medical history significant for liver cirrhosis with history of alcohol abuse and hepatitis C status-post treatment and eradication last year, Klebsiella pneumonia, hypertension, thrombocytopenia, GERD, current smoker,
but quit this past admission, anxiety, just DC yesterday after admission for abdominal distention, lower extremity edema and anemia. At that time Hgb was 6.4 and he was transfused 2 units PRBC He also had hx of elevated AFP of 30 with negative MRI
for HCC. He had EGD/COLO with polypectomy requiring Evesco clip requiring additional 2units PRBC/ 1 units FFP on 04/13/24 who was DC on 04/16/24 with brown BM but comes back to ER with maroon blood mixed in with stool this am. Hgb stable at present
time. VSS. Patient denies any other issues at present time.
Impression:
-Lower GI Bleed likely secondary to post polypectomy area where Evesco clip(hepatic flexure) also another polyp removal in descending colon with resolution clip in setting of chronic thrombocytopenia
-Decompensated alcoholic/Hep C liver cirrhosis, MELD 3.0= 20 (range) from last labs, cannot calculate today as no INR
-Macrocytic anemia, -> hemoglobin 8.1, was 7.9 yesterday. Had brown stool on 04/16/24, now with maroon.
-Chronic thrombocytopenia, stable-> 75
-Ascites-> on Lasix 40 mg daily and Aldactone 50 g daily. Last paracentesis 6/5/24 with 5700 ml removed (neg SBP/cytology negative)
-Chronic hyponatremia-> stable 131
-Hyperbilirubinemia-> 2.4
-AFP now 30, was in the 10-12 range-> No MR findings to suggest HCC
-Hx Hep C s/p tx with Epclusa with SVR
Other pertinent medical history:
-Chronic pain
-GERD
-Hypertension
-Anxiety
Plan:
-Clear liquid diet
-Trend Hgb/PLT
-Watch for active bleeding. If there is please contact IR as well as Colorectal Surgical evaluation
-Transfuse if Hgb <7 and monitor PLT if with continued bleeding to consider PLT trf as well
-Check INR, can give Vit K
-Continue Lasix 40 mg daily and Aldactone 50 mg daily
-Trend CBC, BMP, LFTs INR
-Daily weights
-Continue Pantoprazole daily
-Further recommendations to be forthcoming
Data Reviewed
-
Old Records: Reviewed
-
-
Thank you for consultation and allowing me to participate in the patient's care. Please call the studio operations engineer in charge GI physician during the after hours with any questions or concerns.
--- NOTE | 2024-04-17 13:48 | HPS.HSE ---
Family Physician
-
Family Physician: Drake Goss
Chief Complaint
-
Blood in stool
History of Present Illness
Patient is a 58M with past medical history of alcohol use disorder, cirrhosis from alcohol use/hep C, GERD, essential hypertension, portal gastropathy, recurrent ascites, chronic macrocytic anemia, history of stroke, COPD him to ER after noticing
blood in stool. Patient was just discharged yesterday after treatment of ascites/gi bleed. Patient had EGD/Cscope showing portal hypertensive gastropathy without varices/PUD. Colonoscopy showing large 15-18mm polyp in the hepatic flexure which was
removed with a cold snare, post polypectomy patient developed some bleeding and required further blood transfusion. After bleeding cessation and stability of hemoglobin patient was discharged home with follow-up with GI in office. Unfortunately
patient in the morning noticed again blood mixed with stool. No episode of hematochezia. Denies nausea vomiting. No headache or dizziness/palpitation. Patient was supposed to go see GI in office today although with this bleeding episode came to
ER for further evaluation.
Patient not voicing any other complaints of shortness of breath/chest pain/palpitation/dizziness/abdominal pain/dysuria.
Patient evaluated by GI and ER and plan to be monitored overnight for further bleeding episode.
Medical History
Past Medical History
Past Medical History: Reports Other
Additional Past Medical History:
h/o CVA
COPD
Alcohol Use Disorder
Alcoholic Cirrhosis
Hepatitis C s/p Treatment
Hypertension
Insomnia
Chronic pain and narctoic dependance
Past Surgical History: Reports Other
Social History
Tobacco: Smoker
Alcohol: Chronic Alcoholic
Drug: None
Personal:
Living: With Family
Family History
Family History: Not pertinent
Allergies / Home Medications
Allergies reflects when Allergies were last updated in [employer].
Home Medications with original date entered in [employer]
Allergy/Medication List:
Allergies
Allergy/AdvReac Type Severity Reaction Status Date / Time
No Known Allergies Allergy Verified 04/17/24 11:16
Home Medications
albuterol sulfate 90 mcg/actuation aerosol inhaler 2 puff inhalation R Q6HPRN PRN shortness of breath or wheezing 03/13/24
alprazolam 1 mg tablet 1 mg PO BID anxiety 03/13/24
aspirin 81 mg chewable tablet (Children's Aspirin) 81 mg PO DAILY Blood Clot Prevention/Tx 03/13/24
furosemide 40 mg tablet (Lasix) 40 mg PO DAILY Fluid Retention/Swelling 03/13/24
lidocaine 4 % topical patch 2 patch topical DAILYPRN PRN right shoulder and knee 03/13/24
thiamine HCl (vitamin B1) 100 mg tablet 100 mg PO DAILY Supplement 03/13/24
spironolactone 50 mg tablet 50 mg PO DAILY #30 tabs 03/15/24
budesonide 160 mcg-glycopyr 9 mcg-formot 4.8 mcg/actuation HFA inhaler (Breztri Aerosphere) 2 inh inhalation R BID Lung/Breathing Issues 04/11/24
magnesium oxide 400 mg PO BID Supplement 04/11/24
nicotine 14 mg/24 hr daily transdermal patch 14 mg transdermal DAILY #7 ea 04/16/24
docusate sodium 100 mg tablet 100 mg PO HS 04/17/24
pantoprazole 40 mg tablet,delayed release 40 mg PO DAILY 04/17/24
tramadol 50 mg tablet 50 mg PO BID mod sev pain 04/17/24
Review of Systems
-
A 12 point ROS was completed and negative except as noted: Yes
Physical Exam
Vital Signs
Vital Signs
Temp Pulse Resp BP Pulse Ox
98.3 F 97 14 108/61 94
04/17/24 11:16 04/17/24 12:15 04/17/24 12:15 04/17/24 12:00 04/17/24 11:16
Physical Exam
General: Appears Chronically Ill and Obese; No Appears in Distress
HEENT: No Oxygen
Respiratory: Clear
Cardiac: S1/S2 and Regular Rhythm; No Murmur
GI: Soft, Non Tender, Distended and Other (Markedly distended abdomen. No tenderness.)
Musculoskeletal: Edema, Left Lower Extremity and Edema, Right Lower Extremity
Neuro: Awake, Alert and Nonfocal/grossly intact
Laboratory Results
-
04/17/24 11:57
04/17/24 11:58
Laboratory Results
Total Bilirubin 2.5 mg/dl (0.2-1.3) H 04/17/24 11:58
AST 46 U/L (17-59) 04/17/24 11:58
ALT 19 U/L (0-50) 04/17/24 11:58
Alkaline Phosphatase 84 U/L (38-126) 04/17/24 11:58
Data Reviewed
-
Lab Data: Labs Reviewed by me
Impression/Plan
-
1. GI bleed
C-scope/large Polypectomy on 04/13
Acute blood loss anemia
-Patient came back to ER with recurrence of blood in stool
-Hemoglobin stable at 8.1, identical to 7.9 yesterday
-Case discussed with GI and patient to be monitored in hospital overnight
-Patient will maintain on clear liquid diet
-Giving dose of IV vitamin K 5mg once
-If true massive bleed with vital instability develops, will need CTA A/P, IRAD eval for embolization
2. Recurrent ascites
-Underwent paracentesis of 5.7 L fluid on 04/11
-some distention on exam, no pain/tenderness on exam
3. Liver cirrhosis - Alcohol use/hep C related
Coagulopathy
Thrombocytopenia/Pancytopenia
-Follow-up LFT/INR tomorrow
-No significant change from discharge yesterday
Hyponatremia
Hypokalemia
ASCVD / CVA
COPD without acute exacerbation
Essential Hypertension
Insomnia
Chronic Right Upper Ext Pain
DVT Prophylaxis: SCDs
Code Status: Full Code
Case discussed with GI/ER doctor
Total time spent : 78 mins
I personally saw and examined the patient.
I have reviewed all diagnostic interpretations and treatment plans as written.
Time includes patient management by me, time spent at the patients bedside, time to review lab and imaging results, discussing patient care, documentation in the medical record, and time spent with the family or caregiver and discussing care plan
with RN/Consultants.
[2024-04-17 14:00] VITALS: BP 114/76
[2024-04-17 15:00] VITALS: BP 112/58
[2024-04-17 15:43] VITALS: BP 122/61
[2024-04-17 15:44] VITALS: BMI 29.9
[2024-04-17] MEDS: ROCEPHIN 1000 MG IV (17:07)
[2024-04-17] MEDS: STERILE WATER FOR INJECTION 10 ML IV (17:07)
--- NOTE | 2024-04-17 17:19 | PTCARENOTE ---
Received Pt from ED. Walked from stretcher to bed with standby assist. AAOx3 able to make needs known. Med surg. Oriented to room and use of call caballero. at bedside. Call caballero within reach.
[2024-04-17] MEDS: SYMBICORT 160/4.5 MCG INHALER 2 PUFF INH (19:27)
[2024-04-17] MEDS: XANAX 1 MG PO (19:52)
[2024-04-17] MEDS: ULTRAM 50 MG PO (20:08)
[2024-04-17 21:32] LABS: Hemoglobin 7.3 g/dL (13.0-18.0)
[2024-04-17] MEDS: COLACE 100 MG PO (22:12)
[2024-04-17] MEDS: MAG-TAB SR 84 MG PO (22:12)
[2024-04-18 06:27] VITALS: BP 109/59
[2024-04-18 06:57] LABS: Hematocrit 22.2 % (39.0-52.0); Hemoglobin 7.6 g/dL (13.0-18.0); Mean Corp Hgb Conc. 34.2 g/dL (33.0-37.0); Mean Corpuscular Hgb 30.9 pg (27.0-31.0); Mean Corpuscular Volume 90.2 fL (80.0-94.0); Mean Platelet Volume 9.7 fL (7.4-10.4); Platelet Count 71 10^3/uL (130-400); Red Blood Cell Count 2.46 10^6/uL (4.70-6.10); Red Cell Dist. Width 15.6 % (11.5-14.5); White Blood Cell Count 2.5 10^3/uL (4.8-10.8)
[2024-04-18 07:00] VITALS: BP 107/63
[2024-04-18 07:08] LABS: INR 1.63; PT 19.2 Sec (11.4-14.6)
[2024-04-18 07:22] LABS: ALT (SGPT) 18 U/L (0-50); AST (SGOT) 43 U/L (17-59); Albumin 2.2 g/dl (3.5-5.0); Alkaline Phosphatase 67 U/L (38-126); Blood Urea Nitrogen 12 mg/dl (9-20); Calcium 8.2 mg/dl (8.4-10.2); Carbon Dioxide 30 mmol/L (22-30); Chloride 99 mmol/L (98-107); Estimated Creatinine Clearance 122 ml/min; Glucose 100 mg/dl (70-99); Potassium 4.1 mmol/L (3.5-5.1); Sodium 131 mmol/L (135-145); Total Bilirubin 2.2 mg/dl (0.2-1.3); Total Protein 4.3 g/dl (6.3-8.2); eGFR > 60.00
[2024-04-18] MEDS: SPIRIVA RESPIMAT 2.5 MCG 2 PUFF INH (07:46)
[2024-04-18] MEDS: SYMBICORT 160/4.5 MCG INHALER 2 PUFF INH (07:47)
[2024-04-18] MEDS: MAG-TAB SR 84 MG PO (08:36)
[2024-04-18] MEDS: VITAMIN B1 100 MG PO (08:36)
[2024-04-18] MEDS: NICODERM TRANSDERMAL 14 MG TRANSDERM (08:44)
[2024-04-18] MEDS: XANAX 1 MG PO (08:45)
[2024-04-18] MEDS: ALDACTONE 50 MG PO (08:45)
[2024-04-18] MEDS: LASIX 40 MG PO (08:45)
[2024-04-18] MEDS: PROTONIX 40 MG PO (08:45)
[2024-04-18 12:00] VITALS: BP 115/70
--- NOTE | 2024-04-18 15:27 | W.PN.HOSP.TC ---
Today's Communication/Plan
-
d/c home
Assessment / Plan
Assessment / Plan
1. GI bleed
C-scope/large Polypectomy on 04/13
Acute blood loss anemia
-Patient came back to ER with recurrence of blood in stool
-If true massive bleed with vital instability develops, will need CTA A/P, IRAD eval for embolization
-GI recommended monitoring in hospital overnight , no further episode of bleeding.
-Hbg remains stable, patient discharged home with f/u in office.
2. Recurrent ascites
-Underwent paracentesis of 5.7 L fluid on 04/11
-some distention on exam, no pain/tenderness on exam
3. Liver cirrhosis - Alcohol use/hep C related
Coagulopathy
Thrombocytopenia/Pancytopenia
-Follow-up LFT/INR tomorrow
-No significant change from discharge yesterday
Hyponatremia
Hypokalemia
ASCVD / CVA
COPD without acute exacerbation
Essential Hypertension
Insomnia
Chronic Right Upper Ext Pain
DVT Prophylaxis: SCDs
Code Status: Full Code
More than 30 minutes spent in discharge including
Final examination of the patient
Summarizing hospital stay
Instructions for continuing care to all relevant caregivers
Preparation of discharge records, prescriptions, and referral forms
Total time spent (in minutes): 38 mins
Anticipated Discharge: Today
Subjective/Interval History
-
Date of Service: April 18, 2024
no issues overnight
no further Bleeding
Objective Data
-
Labs:
Laboratory Results
04/18/24
06:16
WBC 2.5 L
Hgb 7.6 L
Hct 22.2 L
Plt Count 71 L
PT 19.2 H
INR 1.63
Sodium 131 L
Potassium 4.1
Chloride 99
Carbon Dioxide 30
BUN 12
Creatinine 0.7
Glucose 100 H
Calcium 8.2 L
Total Bilirubin 2.2 H
AST 43
ALT 18
Alkaline Phosphatase 67
Vital Signs:
Vital Signs
Temp Pulse Resp BP Pulse Ox
98.3 F 88 16 107/63 96
04/18/24 07:00 04/18/24 07:47 04/18/24 07:47 04/18/24 07:00 04/18/24 07:00
I&O
04/17/24 04/18/24 04/19/24
06:59 06:59 06:59
Intake Total 1140 / 1140
Output Total 625 / 625
Balance 515 / 515
Review of Systems
-
Respiratory: Reports No Symptoms
Cardiac: Reports No Symptoms
Abdomen/GI: Reports No Symptoms
Physical Exam
-
General: No Apparent Distress
HEENT: Oxygen (2L NC)
Respiratory: Clear to Auscultation
Cardiac: Regular Rhythm and S1/S2; Negative Murmur, Rub or Gallop
GI: Soft and Distended; Negative Organomegaly
Musculoskeletal: No Edema
Skin: Negative Rash
Neuro: Awake, Alert, Oriented and Nonfocal/Grossly Intact
--- NOTE | 2024-04-18 16:09 | VNURNOTE ---
[facility] referral completed in [facility] after review of chart.
--- NOTE | 2024-04-18 17:35 | W.DCSUMMARY ---
Discharge Summary
Discharge Data
Date of Admission: 04/17/24
Date of Discharge: 04/18/24
-
Pending Results: No
Hospital Course
Discharging Physician : Dr Sai Mariano
Disposition : Home
Primary care physician : Dr Drake Barillas
Principal Discharge diagnosis :
Gastrointestinal bleed
Chronic Discharge diagnosis :
Alcoholic/hepatitis C related cirrhosis
Chronic pain and narcotic dependence
Alcohol use disorder
Gastroesophageal reflux disease
Essential hypertension
Chronic microcytic anemia
History of stroke
Chronic obstructive pulmonary disease without flareup
Hospital Course :
Patient is a 58-year-old male with above-mentioned past medical history who was discharged the day before this visit after treatment of GI bleed/liver cirrhosis/ascites came back with noticing some blood in stool. On previous admission patient had
a large hepatic flexure colon polyp removed and had some post polypectomy bleed requiring blood transfusion. Patient hemoglobin was stable on this repeat visit in ER and was felt to be having some residual bleeding versus minor new bleed. GI was
involved in care and recommended for patient to be monitored overnight. Patient did not have any further episodes of bleed. Hemoglobin remained stable and so patient was discharged home with follow-up with GI in office for
Important imaging findings :
None
Procedure findings :
None
Discharge Plan
-
Patient Disposition: Home (Routine Discharge)
Discharge Diagnosis/Procedures: Blood in stool, Blood loss anemia
Condition: Fair
Diet: 2 Gram Sodium
Activity: As tolerated
Driving Restrictions: No driving
Bathing Restrictions: OK to Shower
Referrals:
Jennifer Weaver MD [Active] -
Drake Goss DO [Family Provider] - in one week
Prescriptions:
Continued
furosemide [Lasix] 40 mg Tablet
40 mg PO DAILY
lidocaine 4 % adhesive patch,medicated
2 patch topical DAILYPRN PRN (Reason: right shoulder and knee)
albuterol sulfate 90 mcg/actuation HFA aerosol inhaler
2 puff inhalation R Q6HPRN PRN (Reason: shortness of breath or wheezing)
alprazolam 1 mg tablet
1 mg PO BID
thiamine HCl (vitamin B1) 100 mg tablet
100 mg PO DAILY
magnesium oxide 200 mg magnesium Tablet
400 mg PO BID
Breztri Aerosphere 160-9-4.8 mcg/actuation Hfa Aerosol Inhaler
2 inh INHALATION R BID
Patient Comments:
Patient is getting free samples
docusate sodium 100 mg Tablet
100 mg PO HS
tramadol 50 mg tablet
50 mg PO BID
pantoprazole 40 mg tablet,delayed release (DR/EC)
40 mg PO DAILY
nicotine 14 mg/24 hr patch 24 hour
14 mg transdermal DAILY
spironolactone 50 mg tablet
50 mg PO DAILY
Discontinued
aspirin [Children's Aspirin] 81 mg tablet,chewable
81 mg PO DAILY
Discharge Orders:
Discharge Patient (As Directed); Ordered 04/18/24
Ordered By: Sai Mariano
Discharge Date and Time
Discharge Date/Time: 04/18/24 13:04
Print Language: ROMANIAN
== END 2024-04-18 13:04 | disposition home health service (06) | DRG 920 ==
LOC: 3 WEST ACU 14:11
PROVIDERS: Registered Nurse; ADMITTING PHYSICIAN Hospitalist; CONSULT PHYSICIAN Internal Medicine; EMERGENCY PHYSICIAN Student in an Organized Health Care Education/Training Program; FAMILY PHYSICIAN Internal Medicine
DX: K91.840 Postprocedural hemorrhage of a digestive system organ or structure following a digestive system procedure (principal); D61.818 Other pancytopenia; K92.1 Melena; D62 Acute posthemorrhagic anemia; F11.20 Opioid dependence, uncomplicated; K76.6 Portal hypertension; D68.9 Coagulation defect, unspecified; E87.1 Hypo-osmolality and hyponatremia; K70.31 Alcoholic cirrhosis of liver with ascites; B19.20 Unspecified viral hepatitis C without hepatic coma; G89.29 Other chronic pain; F10.10 Alcohol abuse, uncomplicated; K21.9 Gastro-esophageal reflux disease without esophagitis; I10 Essential (primary) hypertension; Y83.8 Other surgical procedures as the cause of abnormal reaction of the patient, or of later complication, without mention of misadventure at the time of the procedure; D50.9 Iron deficiency anemia, unspecified; J44.9 Chronic obstructive pulmonary disease, unspecified; K31.89 Other diseases of stomach and duodenum; G47.00 Insomnia, unspecified; E87.6 Hypokalemia; I25.10 Atherosclerotic heart disease of native coronary artery without angina pectoris; M79.601 Pain in right arm; F41.9 Anxiety disorder, unspecified; F17.200 Nicotine dependence, unspecified, uncomplicated; Z86.73 Personal history of transient ischemic attack (TIA), and cerebral infarction without residual deficits; Z86.010 Personal history of colon polyps; Z79.82 Long term (current) use of aspirin
CPT/HCPCS: 80053; 85014; 85018; 85025; 85027; 85610; 86850; 86900; 86901; 94640; 99285

== ENCOUNTER → 2024-04-23 07:39 | Outpatient (REF) | payer BC, SELFPAY ==
[2024-04-23 10:01] LABS: % Basophils 0.9 % (0-2); % Eosinophils 4.5 % (0-6); % Immature Granulocytes 0.4 % (0-0.5); % Lymphocytes 26.5 % (20.5-51.1); % Monocytes 9.9 % (1.7-9.3); % Neutrophils 57.8 % (42.2-75.2); Absolute Basophils 0.1 10^3/uL (0-0.2); Absolute Eosinophils 0.3 10^3/uL (0-0.7); Absolute Lymphocytes 1.5 10^3/uL (1.2-3.4); Absolute Monocytes 0.6 10^3/uL (0.1-0.6); Absolute Neutrophils 3.2 10^3/uL (1.4-6.5); Hematocrit 26.5 % (39.0-52.0); Hemoglobin 8.7 g/dL (13.0-18.0); Mean Corp Hgb Conc. 32.8 g/dL (33.0-37.0); Mean Corpuscular Hgb 29.5 pg (27.0-31.0); Mean Corpuscular Volume 89.8 fL (80.0-94.0); Mean Platelet Volume 10.1 fL (7.4-10.4); Nucleated Red Blood Cells % 0 % (-); Platelet Count 96 10^3/uL (130-400); Red Blood Cell Count 2.95 10^6/uL (4.70-6.10); White Blood Cell Count 5.6 10^3/uL (4.8-10.8)
[2024-04-23 10:11] LABS: ALT (SGPT) 21 U/L (0-50); AST (SGOT) 59 U/L (17-59); Albumin 2.7 g/dl (3.5-5.0); Alkaline Phosphatase 158 U/L (38-126); Blood Urea Nitrogen 17 mg/dl (9-20); Calcium 8.5 mg/dl (8.4-10.2); Carbon Dioxide 29 mmol/L (22-30); Chloride 100 mmol/L (98-107); Glucose 97 mg/dl (70-99); Potassium 4.5 mmol/L (3.5-5.1); Sodium 133 mmol/L (135-145); Total Bilirubin 2.2 mg/dl (0.2-1.3); Total Protein 5.3 g/dl (6.3-8.2); eGFR > 60.00
== END ==
LOC: HWLAB 07:39
PROVIDERS: ATTENDING PHYSICIAN Internal Medicine
DX: B18.2 Chronic viral hepatitis C (principal); I10 Essential (primary) hypertension; D69.6 Thrombocytopenia, unspecified
CPT/HCPCS: 36415; 80053; 85025

== ENCOUNTER 2024-04-25 08:27 | Emergency (ER) | payer BC, SELFPAY ==
[2024-04-25 08:29] VITALS: BP 131/71
--- NOTE | 2024-04-25 08:53 | ED.GENMED ---
History of Present Illness
<MARCIA Pino - Last Filed: 04/25/24 14:25>
General
Chief Complaint: Abdominal Symptoms
Source: patient
Exam Limitations: none
Time Seen by Provider: 04/25/24 08:45
Nursing documentation reviewed up to this point in time: agreed with
Travel History
Have you had any contact with someone who has COVID-19?: No
Do you have any symptoms of coronavirus? Fever > 100 degrees, chills, cough, shortness of breath, sore throat, loss of taste or smell, muscle aches, or headache?: No
History of Present Illness
History of Present Illness:
Patient is a 58-year-old male with history of alcoholic hepatitis related cirrhosis alcohol use disorder microcytic anemia COPD GI bleed from polypectomy ascites presents to the ER for evaluation. Patient reports he has had increasing abdominal
distention and leg swelling increased weight gain. He denies any recent illness fever chills. Denies any Shortness of breath. He is a smoker.
Past History
<MARCIA Pino - Last Filed: 04/25/24 14:25>
Past History
ED Past Medical History: COPD, CVA ( With right sided weakness), HTN and Other (Chronic alcohol use, alcoholic cirrhosis, Back pain, Meningitis, PNA, Hep C, UTI); Negative Asthma, Hypercholesterolemia or NIDDM
ED Past Surgical History: Other (Right hernia repair)
Social History
Tobacco: Smoker
Alcohol: Former
Drug: None
Personal:
Living: with family
Employment: Employed
Family History
Family History: Diabetes and Other
Review of Systems
<MARCIA Pino - Last Filed: 04/25/24 14:25>
Review of Systems
Allergies reviewed?: Yes
All Other Systems: ROS reviewed and negative except as documented in HPI and ROS
Constitutional: Reports no symptoms; Denies fever, fatigue or chills
EENT: Reports no symptoms
Cardiac: Reports no symptoms
ABD/GI: Reports other (Abdominal distention); Denies nausea or vomiting
: Reports no symptoms
Musculoskeletal: Reports other (Mild lower extremity swelling)
Skin: Reports no symptoms
Neurological: Reports no symptoms
Psychiatric: Reports no symptoms
Phy Exam
<MARCIA Pino - Last Filed: 04/25/24 14:25>
General Physical Exam
General Presentation: no apparent distress
General age: appears stated age
General Skin: warm and dry
General Habitus: normal
General Mental: alert
General Hydration: appears well hydrated
Cardiovascular Exam
Cardiovascular Exam: regular rate/rhythm, no murmur and normal peripheral pulses
Pulmonary Exam
Pulmonary Exam: lungs clear and no respiratory distress
Gastrointestinal Exam
Gastrointestinal Exam: soft and other (Abdomen appears distended with obvious ascites no erythema non tender )
Neurological Exam
Neurological Exam: alert and oriented x3
Musculoskeletal Exam
Musculoskeletal Exam: full ROM and other (mild pedal /ankle swelling b/l )
Skin Exam
Skin Exam: normal color and warm/dry
Psychiatric Exam
Psychiatric Exam: normal mood/affect
Course
<MARCIA Pino - Last Filed: 04/25/24 14:25>
Orders/Labs/Results
Orders:
Orders
04/25/24 11:45
Body Fluid Cell Count Routine
What is the Body Fluid: ascites
Date Specimen was Collected: 04/25/24
Time Specimen was Collected: 11:45
04/25/24 11:53
IRAD CONSULT Urgent
Consulting Provider: Roger Bailon
Was physician already notified: Yes
Reason for Consult/Procedure: paracentesis limit to 4liters
Acknowledgement that appropriate orders are entered: Yes
Vital Signs
Initial and Last Documented VS:
Initial Vital Signs
Temp Pulse Resp BP Pulse Ox
98.1 F 100 18 131/71 98
04/25/24 08:29 04/25/24 08:29 04/25/24 08:29 04/25/24 08:29 04/25/24 08:29
Last Documented Vital Signs
Temp Pulse Resp BP Pulse Ox
98.2 F 72 20 124/60 97
04/25/24 14:16 04/25/24 14:16 04/25/24 14:16 04/25/24 14:16 04/25/24 14:16
Pmo Project Manager consulted with Physician
Pmo Project Manager consulted with physician?: Yes
Name of Physician Consulted: Nael
<Yobani Nayak MD - Last Filed: 04/25/24 20:48>
Orders/Labs/Results
Orders:
Orders
04/25/24 11:45
Body Fluid Cell Count Routine
What is the Body Fluid: ascites
Date Specimen was Collected: 04/25/24
Time Specimen was Collected: 11:45
04/25/24 11:53
IRAD CONSULT Urgent
Consulting Provider: Roger Bailon
Was physician already notified: Yes
Reason for Consult/Procedure: paracentesis limit to 4liters
Acknowledgement that appropriate orders are entered: Yes
Vital Signs
Initial and Last Documented VS:
Initial Vital Signs
Temp Pulse Resp BP Pulse Ox
98.1 F 100 18 131/71 98
04/25/24 08:29 04/25/24 08:29 04/25/24 08:29 04/25/24 08:29 04/25/24 08:29
Last Documented Vital Signs
Temp Pulse Resp BP Pulse Ox
98.2 F 72 20 124/60 97
04/25/24 14:16 04/25/24 14:16 04/25/24 14:16 04/25/24 14:16 04/25/24 14:16
<MARCIA Pino - Last Filed: 04/25/24 14:25>
MDM/Problems Addressed
Differential Diagnosis Includes:
Not limited to ascites
MDM/Problems Addressed:
Patient is a 58-year-old with history of alcoholic cirrhosis presents to the ER for complaints of worsening ascites lower extremity swelling. Patient denies any shortness of breath he is nontachypneic nonhypoxic in no acute distress. He last had
blood work done 2 days ago at the ordered by family doctor. His last hemoglobin April 23 2 days ago was 8.7 which is slightly improved from patient's baseline. His platelets were 96,000 also slightly improved previous platelets were 71,000. He had
a normal INR of 1.63. Did speak with interventional radiologist Dr. Bailon who will be able to take patient today for paracentesis. Patient with stable vital signs and no acute distress.
1420: Patient had paracentesis tolerated procedure well they removed 4 L of fluid fluid white blood cells and abdominal ascites fluid is 91. No evidence of SBP patient nhung afebrile and just looks well nontoxic-appearing no need for albumin. Case
reviewed with RADHA Allen. Patient was evaluated by the nurse practitioner and given instructions to call IR he will be set up for outpatient paracentesis as needed. Stable for discharge home.
<MARCIA Pino - Last Filed: 04/25/24 14:25>
*Pulse Oximetry
Patient hypoxic: no
*Critical Care Note
Total Time (30-74mins, 75-104mins- exclusive of procedures): Not Applicable
<MARCIA Pino - Last Filed: 04/25/24 14:25>
Patient Management
Discussion with other providers: Breaker Hand (Radha Richter)
ED Attending Note
<MARCIA Pino - Last Filed: 06/19/24 14:25>
-
Portions of this chart may have been created with voice recognition software.� Occasional wrong word or��sound alike� substitutions may have occurred due to the inherent limitations of voice recognition software.
<Yobani Nayak MD - Last Filed: 04/25/24 20:48>
ED Attending Note
Patient seen and examined by attending physician: Yes
ED Attending Note:
Patient with history of alcoholic cirrhosis and chronic ascites, status post recent paracentesis with removal of approximately 6 L of fluid, presents to ED secondary to recurrent abdominal distention along with leg swelling over the past 48 hours.
Denies fever or chills. Denies chest pain or shortness of breath. Denies recent change in medications or diet. Denies drinking alcohol. Denies recent illness. Patient feels as though he may need another paracentesis procedure.
Physical Exam
General: no apparent distress, not acutely ill. afebrile
Head: nc/at. eomi
Lungs: no acute respiratory distress. clear bilaterally
Abdomen: normal bowel sounds. nontender but moderate distention noted, without warmth/erythema.
Neuro: alert and oriented. no focal neurological deficits
Skin: no rash
Psychiatric: well kept. interactive and cooperative
Extremities: LE b/l edema. no calf tenderness.
Outpatient blood work from 2 days ago reviewed, no acute changes, but appears to be chronically abnormal.
Interventional radiology contacted for potential therapeutic paracentesis procedure.
4L fluid removed via IRAD.
Discussed with GI () - no need for albumin infusion. Outpatient f/u, including future paracentesis, to be arranged via GI office.
Discharge Plan
Departure
Patient Disposition: Home (Routine Discharge)
Date of Disposition: 04/25/24
Time of Disposition: 14:17
Patient with high blood pressure during this ER visit?: Yes
Condition: Fair
Covid-19: Not Applicable
Discharge Problem:
Ascites
Instructions: Fluid in the belly (ascites), Abdominal Paracentesis (DC)
Prescriptions:
No Action
furosemide [Lasix] 40 mg Tablet
40 mg PO DAILY
lidocaine 4 % adhesive patch,medicated
2 patch topical DAILYPRN PRN (Reason: right shoulder and knee)
albuterol sulfate 90 mcg/actuation HFA aerosol inhaler
2 puff inhalation R Q6HPRN PRN (Reason: shortness of breath or wheezing)
alprazolam 1 mg tablet
1 mg PO BID
thiamine HCl (vitamin B1) 100 mg tablet
100 mg PO DAILY
magnesium oxide 200 mg magnesium Tablet
400 mg PO BID
Breztri Aerosphere 160-9-4.8 mcg/actuation Hfa Aerosol Inhaler
2 inh INHALATION R BID
Patient Comments:
Patient is getting free samples
docusate sodium 100 mg Tablet
100 mg PO HS
tramadol 50 mg tablet
50 mg PO BID
pantoprazole 40 mg tablet,delayed release (DR/EC)
40 mg PO DAILY
nicotine 14 mg/24 hr patch 24 hour
14 mg transdermal DAILY
spironolactone 50 mg tablet
50 mg PO DAILY
Referrals:
Drake Goss DO [Family Provider] -
Activity Restrictions/Additional Instructions:
Call IR: : [phone] to set up Paracentesis as needed . Be sure to get plenty of rest today and follow-up with GI as scheduled. REturn if any worsening of symptoms if increased abdominal pain, nausea vomiting fevers or any concerns.
Interventions
Interventions:
*Risk Screen - Suicide Last Done: 04/25/24 09:18
*General Assessment Last Done: 04/25/24 12:50
*Neglect/Abuse Screening Last Done: 04/25/24 09:18
ED- Fall Risk Assessment Last Done: 04/25/24 09:19
*ED COVID-19 Vaccine History Last Done: 04/25/24 08:39
*Nursing Disposition Last Done: 04/25/24 14:41
[facility] Assessment Last Done: 04/25/24 09:19
Discharge Date and Time
Discharge Date/Time: 04/25/24 14:41
Print Language: SERBIAN
[2024-04-25 09:18] VITALS: BMI 31.9
[2024-04-25 14:11] LABS: Body Fluid WBC 91 /CUMM
[2024-04-25 14:13] LABS: Body Fluid Second Tech EF
[2024-04-25 14:16] VITALS: BP 124/60
== END 2024-04-25 14:41 | disposition home or self-care (01) ==
LOC: EMR 08:27
PROVIDERS: Nurse Practitioner; CONSULT PHYSICIAN Radiology Vascular & Interventional Radiology; EMERGENCY PHYSICIAN Emergency Medicine; FAMILY PHYSICIAN Internal Medicine
DX: K70.31 Alcoholic cirrhosis of liver with ascites (principal); I69.351 Hemiplegia and hemiparesis following cerebral infarction affecting right dominant side; I10 Essential (primary) hypertension; J44.9 Chronic obstructive pulmonary disease, unspecified; F17.200 Nicotine dependence, unspecified, uncomplicated; Z86.61 Personal history of infections of the central nervous system; Z86.19 Personal history of other infectious and parasitic diseases; Z87.440 Personal history of urinary (tract) infections; Z87.01 Personal history of pneumonia (recurrent)
CPT/HCPCS: 99283; 49083; 89051

== ENCOUNTER 2024-05-02 12:29 | Inpatient (IN) | payer BC, SELFPAY ==
[2024-05-02] VITALS (25 sets, daily range): BP systolic 98–147; BP diastolic 51–88
[2024-05-02 07:06] LABS: % Basophils 0.8 % (0-2); % Eosinophils 2.9 % (0-6); % Immature Granulocytes 0.3 % (0-0.5); % Lymphocytes 20.8 % (20.5-51.1); % Monocytes 6.7 % (1.7-9.3); % Neutrophils 68.5 % (42.2-75.2); Absolute Basophils 0.1 10^3/uL (0-0.2); Absolute Eosinophils 0.2 10^3/uL (0-0.7); Absolute Lymphocytes 1.6 10^3/uL (1.2-3.4); Absolute Monocytes 0.5 10^3/uL (0.1-0.6); Absolute Neutrophils 5.2 10^3/uL (1.4-6.5); Mean Corp Hgb Conc. 33.3 g/dL (33.0-37.0); Mean Corpuscular Hgb 29.1 pg (27.0-31.0); Mean Corpuscular Volume 87.4 fL (80.0-94.0); Nucleated Red Blood Cells % 0 % (-); Platelet Count 115 10^3/uL (130-400); Red Blood Cell Count 2.23 10^6/uL (4.70-6.10); Red Cell Dist. Width 15.8 % (11.5-14.5); White Blood Cell Count 7.6 10^3/uL (4.8-10.8)
[2024-05-02 07:10] LABS: Hemoglobin 6.5 g/dL (13.0-18.0)
[2024-05-02 07:11] LABS: Hematocrit 19.5 % (39.0-52.0)
[2024-05-02 07:18] LABS: Lactic Acid 1.7 mmol/L (0.7-2.0)
[2024-05-02 07:18] LABS: Ammonia 12 umol/L (9-30)
[2024-05-02 07:19] LABS: INR 1.41
[2024-05-02] MEDS: LASIX 40 MG PO (07:19)
[2024-05-02 07:20] LABS: ALT (SGPT) 20 U/L (0-50); APTT 34.3 Sec (23.4-35.0); AST (SGOT) 51 U/L (17-59); Albumin 2.8 g/dl (3.5-5.0); Alkaline Phosphatase 77 U/L (38-126); Blood Urea Nitrogen 28 mg/dl (9-20); Calcium 8.4 mg/dl (8.4-10.2); Carbon Dioxide 27 mmol/L (22-30); Chloride 104 mmol/L (98-107); Glucose 106 mg/dl (70-99); Lipase 305 U/L (23-300); Magnesium 2.1 mg/dl (1.6-2.3); Potassium 3.5 mmol/L (3.5-5.1); Sodium 135 mmol/L (135-145); Total Bilirubin 4.1 mg/dl (0.2-1.3); eGFR > 60.00
[2024-05-02] MEDS: XANAX 1 MG PO (07:21)
[2024-05-02] MEDS: PROTONIX IV 40 MG IV ×2 (07:21→13:04)
[2024-05-02 07:22] LABS: Urine Albumin Negative (Neg - Trace); Urine Bilirubin 1+ (Negative); Urine Character Clear (Clear); Urine Color Yellow; Urine Glucose Negative (Negative); Urine Ketone 1+ (Negative); Urine Leukocyte 1+ (Negative); Urine Nitrite Negative (Negative); Urine Occult Blood 3+ (Negative); Urine Specific Gravity 1.025 (<1.030); Urine Urobilinogen 1+ (Neg - 1+)
--- NOTE | 2024-05-02 07:27 | ED.GENMED ---
History of Present Illness
General
Chief Complaint: Weakness
Source: patient and spouse
Exam Limitations: clinical condition
Time Seen by Provider: 05/02/24 06:22
History of Present Illness
History of Present Illness:
58-year-old male complaining of general fatigue and weakness x 24 hours. In addition has had some chills. Scheduled for paracentesis this morning. Some slight cough. No abdominal pain no chest pain. After receiving the hemoglobin back he did
note he had dark stools recently.
Past History
Past History
ED Past Medical History: COPD, CVA ( With right sided weakness), HTN and Other (Chronic alcohol use, alcoholic cirrhosis, Back pain, Meningitis, PNA, Hep C, UTI); Negative Asthma, Hypercholesterolemia or NIDDM
ED Past Surgical History: Other (Right hernia repair)
Social History
Tobacco: Smoker
Alcohol: Former
Drug: None
Personal:
Living: with family
Employment: Employed
Family History
Family History: Diabetes and Other
Review of Systems
Review of Systems
All Other Systems: Not applicable
Constitutional: Reports fever (Low-grade) and chills
Respiratory: Reports cough
ABD/GI: Denies abdominal pain
Phy Exam
Physical Exam
Physical Exam:
GENERAL: Alert and oriented. Mildly pale
EYE: Orbits normal.
NECK: Supple, no significant adenopathy.
ENT: Pharynx without erythema
CARDIAC: Regular rate and rhythm without any obvious murmurs.
LUNGS: Clear breath sounds, minimal tachypnea.
ABDOMEN: Distended. Positive fluid wave. Nontender. Rectal dark and test positive
NEUROLOGICAL: Alert and oriented , cranial nerves II through XII intact. Speech normal. Eye confrontation normal. No drift. Upper and lower extremity strength normal.
SKIN: Warm and dry, pale.
MUSCULOSKELETAL: Chronic lower extremity edema
PSYCH: Normal and appropriate interaction.
Course
Orders/Labs/Results
Orders:
Orders
05/02/24 06:23
Electrocardiogram (*1) Stat
Reason for Study: Abdominal Pain
Cardiac Monitoring- Treatment ONCE
EKG- Treatment ONCE
IV Insert/Care/Rem.- Treatment PRN
CXR Port [CR Chest Portable - 1 View] Urgent
Comment:
Reason For Exam: cough sob
Reason Study Needs to be Portable: Other
O2 Therapy [RESP] Stat
Titrate/Wean O2 to maintain O2 sat greater than (%): 92
Pulse Ox/cont/shift [RESP] Stat
Quantity: 1
05/02/24 06:32
Alprazolam [Xanax] 1 mg PO NOW STA
Furosemide [Lasix] 40 mg PO NOW STA
05/02/24 06:43
CT Head W/o Iv Contrast Urgent
Comment:
Reason For Exam: Weakness/drooling/history of thrombocytopenia
05/02/24 06:47
Ammonia Urgent
Complete Blood Count/With Diff Urgent
Comprehensive Metabolic Panel Urgent
Lipase Urgent
Magnesium Urgent
PTT Urgent
Prothrombin Time Urgent
Blood Culture Q30M
LOVE Source: Blood/Venous
Specimen Description:
05/02/24 06:54
Lactate Level [Lactic Acid] Urgent
Urinalysis Reflex To Culture Urgent
Date Specimen was Collected: 05/02/24
Time Specimen was Collected: 06:51
Urine Microscopic Reflex Cult Urgent
Urine Culture Urgent
LOVE Source: U
Specimen Description:
Date Specimen was Collected: 05/02/24
Time Specimen was Collected: 06:51
05/02/24 07:06
Consult Interventional Radiology [IRAD CONSULT] Urgent
Consulting Provider: Mahin Kaur
Was physician already notified: Yes
Reason for Consult/Procedure: paracentesis
Acknowledgement that appropriate orders are entered: Yes
05/02/24 07:15
* Blood Bank Products Urgent
Blood Bank Products: *Packed RBC Leuko(PRBC's)
Quantity: 2
Transfuse Today: Yes
Reason: Anemia
IV Insert/Care/Rem.- Treatment PRN
Pantoprazole [Protonix IV] 40 mg IV NOW STA
Spironolactone [Aldactone] 50 mg PO NOW STA
05/02/24 07:34
Blood Culture Q30M
LOVE Source: Blood/Venous
Specimen Description:
05/02/24 08:07
GASTROINTESTINAL CONSULT Routine
Consulting Provider: Henri Garza
Was physician already notified: Yes
Reason for consult: anemia, heme POS stool
05/02/24 08:10
Body Fluid Albumin Routine
Fluid Source: Peritoneal (Ascites)
Date Specimen was Collected: 05/02/24
Time Specimen was Collected: 08:08
Body Fluid Amylase Routine
Fluid Source: Peritoneal (Ascites)
Date Specimen was Collected: 05/02/24
Time Specimen was Collected: 08:08
Body Fluid Cell Count Routine
What is the Body Fluid: peritoneal fluid
Date Specimen was Collected: 05/02/24
Time Specimen was Collected: 08:08
Comment: post procedure
Body Fluid LDH Routine
Fluid Source: Peritoneal (Ascites)
Date Specimen was Collected: 05/02/24
Time Specimen was Collected: 08:08
Body Fluid Protein Routine
Fluid Source: Peritoneal (Ascites)
Date Specimen was Collected: 05/02/24
Time Specimen was Collected: 08:08
Fluid Culture with Gram Stain Routine
LOVE Source: Peritoneal Fluid
Specimen Description:
Date Specimen was Collected: 05/02/24
Time Specimen was Collected: 08:08
Comment: Post Procedure
05/02/24 09:46
Type+Screen Urgent
BBK Wristband Number:
05/02/24 Lunch
Clear Liquid
Clear Liquids: No red liquids
05/02/24 10:10
Albumin Human 25% 100 ml [Flexbumin] 25 grams in 100 ml IV TODAY
Albumin Human 25% 50 ml [Flexbumin] 12.5 grams in 50 ml IV TODAY
05/02/24 10:16
Tramadol HCl [Ultram] 50 mg PO NOW STA
05/02/24 12:10
Admit/Transfer Patient As Directed
Co-Sign Provider:
Level of Care: Inpatient admission
Assign to:: IMU- Intermediate Care
Physician / Group: Gaurang
Diagnosis: GIB, anemia
Reason for Hospitalization: GIB, anemia
Expected length of stay greater than two midnights?: Yes
ELOS- Estimated Length of Stay in days: 3
I certify the patient meets the requirements for IP care: Yes
05/02/24 12:17
Code Status As Directed
Resuscitation Status: Full Code
0.9% Sodium Chloride [Nss (Preservative Free)] 10 ml IV NOW STA
Pantoprazole [Protonix IV] 40 mg IV NOW STA
05/02/24 13:00
Lactulose [Duphalac/Chronulac] 20 grams PO DAILY
Pantoprazole 80 mg/100 ml Nss [Protonix] 80 mg in 100 ml IV Q10H
Abnormal Lab Results
05/02/24 05/02/24
06:47 06:54
RBC 2.23 L 10^6/uL
(4.70-6.10)
Hgb 6.5 L* g/dL
(13.0-18.0)
Hct 19.5 L* %
(39.0-52.0)
RDW 15.8 H %
(11.5-14.5)
Plt Count 115 L 10^3/uL
(130-400)
PT 17.0 H Sec
(11.4-14.6)
BUN 28 H mg/dl
(9-20)
Glucose 106 H mg/dl
(70-99)
Total Bilirubin 4.1 H mg/dl
(0.2-1.3)
Total Protein 5.0 L g/dl
(6.3-8.2)
Albumin 2.8 L g/dl
(3.5-5.0)
Lipase 305 H U/L
(23-300)
Urine Ketones 1+ A
(Negative)
Ur Occult Blood Reflex 3+ A
(Negative)
Urine Bilirubin 1+ A
(Negative)
Leukocyte Esterase Rfl 1+ A
(Negative)
Urine RBC 11-15 A /HPF
(0-2)
Urine WBC (Reflex) 11-15 A /HPF
(0-5)
Urine Bacteria (Reflex) Few A
(Negative)
05/02/24 06:47
05/02/24 06:47
Vital Signs
Initial and Last Documented VS:
Initial Vital Signs
Temp Pulse Resp BP Pulse Ox
99.9 F 107 26 126/85 98
05/02/24 06:06 05/02/24 06:06 05/02/24 06:06 05/02/24 06:06 05/02/24 06:06
Last Documented Vital Signs
Temp Pulse Resp BP Pulse Ox
98.6 F 101 17 122/61 98
05/02/24 07:53 05/02/24 12:30 05/02/24 12:30 05/02/24 12:30 05/02/24 12:15
MDM/Problems Addressed
Differential Diagnosis Includes:
Chills weakness drooling from the right side of his mouth x 24 hours. Clinically stable. Benign neurologic exam. No signs clinically of a stroke. Rectal exam dark testing positive. Likely upper GI bleed. Blood ordered. Consent signed.
Protonix ordered. Relatively unlikely to be varices issue given his stability. GI and hospitalist contacted. Infectious workup also for the chills including pending paracentesis.
*Radiology
Radiology exam reviewed: preliminary read by ED provider (Negative chest x-ray) and radiology read reviewed (Negative chest x-ray. Negative head CT)
*Pulse Oximetry
Patient hypoxic: no
*EKG
Interpreted by ED Provider?: Yes
Interpretation: abnormal
Comparison EKG: changes noted
Heart Rate: 104
Rate: tachycardiac
Rhythm: sinus and PVC's
Perry: normal axis
Interval: normal interval
QRS Pattern: normal QRS
Ischemia: non-specific ST changes
*Administrative Assistant Data Entry Interpretation
Rate: tachycardiac
Interpretation: abnormal
Heart Rate: 110
Rhythm: sinus
*Critical Care Note
Total Time (30-74mins, 75-104mins- exclusive of procedures): 40
Data Reviewed
Review of Other/Old Records Reveals: Labs, Records, Radiology Studies, Testing and Discharge Summary
Update Note
Update Note:
Patient with severe anemia. Paracentesis results pending. GI bleed. Chronic cirrhosis
ED Attending Note
-
Portions of this chart may have been created with voice recognition software.� Occasional wrong word or��sound alike� substitutions may have occurred due to the inherent limitations of voice recognition software.
Discharge Plan
Departure
Patient Disposition: Admit
Date of Disposition: 05/02/24
Time of Disposition: 07:29
Presentation/result/management discussed w/ accepting MD/DO: Gastroenterology
Discharge Problem:
Severe anemia, GI bleed, Cirrhosis, Ascites
Interventions
Interventions:
*Risk Screen - Suicide Last Done: 05/02/24 06:13
*General Assessment Last Done: 05/02/24 06:13
*Neglect/Abuse Screening Last Done: 05/02/24 06:13
ED- Fall Risk Assessment Last Done: 05/02/24 06:13
*ED COVID-19 Vaccine History Last Done: 05/02/24 06:13
ED- Cardiac Assessment Last Done: 05/02/24 06:23
ED- Neurological Assessment Last Done: 05/02/24 06:23
ED- Pulmonary Assessment Last Done: 05/02/24 07:25
[2024-05-02] MEDS: ALDACTONE 50 MG PO (07:37)
[2024-05-02 07:59] LABS: Urine Squamous Cell >30 /LPF (Few)
[2024-05-02 08:03] LABS: Urine Bacteria Few (Negative); Urine Hyaline Cast 0-2 /LPF (0-2)
[2024-05-02 08:04] LABS: Urine Mucus Few
--- NOTE | 2024-05-02 08:25 | CON.GI ---
Addendum entered and electronically signed by MARCIA Valdez 05/02/24 14:45:
Pt scheduled follow up 05/18 at 11:30 with Leticia Maynard. He also has PRN weekly paracentesis order active in IR
Addendum entered and electronically signed by Henri Ramos MD 05/02/24 13:15:
Patient seen and examined, agree with nurse practitioner note. The patient is a 58-year-old male with past medical history as noted, with cirrhosis secondary to previous hepatitis C status posttreatment with eradication, decompensated with ascites,
hepatic encephalopathy and portal gastropathy. He presents with weakness, low-grade fevers and overall not feeling well. He was having some abdominal distention and discomfort, though is now status post paracentesis and feeling better. He has
noticed dark stools over the past several days though overall not large amounts. Has had no vomiting, nausea. He has low-grade fevers by report. He has no cough or other systemic symptoms. He had endoscopy and colonoscopy on April 13 with portal
gastropathy though no varices noted. He had a colonoscopy with large polyp that required clip. His hemoglobin on April 23 was 8.7, now down to 6.5. He has had mild confusion in the past though does not take rifaximin or lactulose usually. He is
now status post paracentesis and overall feeling better. On exam he has mild asterixis and slowed speech though is oriented x 3. He has a small umbilical hernia though his abdomen is otherwise soft and nontender, mild ascites and edema. Blood
cultures are not reported yet, chest x-ray negative, fluid studies did not show SBP. At this point will await other studies to rule out other underlying infection given his low-grade fevers. Will start rifaximin twice daily for now, continue PPI
and clear liquids. His anemia is likely multifactorial, with some acute blood loss more likely related to portal gastropathy. This is somewhat far out to have delayed post polypectomy bleeding though not completely excluded. Again, did not have
varices on recent endoscopy. He had elevated fetoprotein though negative MRI recently, though limited study with motion artifact. Will continue to trend labs and close observation. His MELD is overall low at 18, though his going to be seeing
hepatology at the emergency [place] for transplant evaluation soon. He is receiving albumin post paracentesis, and will continue outpatient diuretics.
Original Note:
Consultation
-
Date/Time Consultation Requested: 05/02/24 0800
Date/Time Consultation Performed: 05/02/24829
Requesting Provider: Jhonny Merlos MD
Performing Provider: MARCIA Rossi, Blanco ramos MD
Reason for Consultation: anemia
Medical History
Chief Complaint / HPI
Chief Complaint: rectal bleeding
History of Present Illness:
58-year-old male with a past medical history significant for liver cirrhosis with decompensation- ascites, mild HE, hx GI bleed portal gastropathy and evidence of gastric and lower esophageal varices on recent MRI)with history of prior alcohol
abuse (last use 1 year ago), elevated AFP of 30 with neg MRI in early April, and hepatitis C status-post treatment(took 8 out of 12 weeks Epclusa but did eradication last year with neg RNA in February), Klebsiella pneumonia, hypertension,
thrombocytopenia, GERD, tobacco use - recently quit, anxiety, with recurrent admission with weakness, confusions per family, low grade fever with noted further drop in hbg to 6.5 on admission and heme + dark stools in Er. He has had several
recent admissions. In March noted with ascites with neg US doppler for PVT and diuretics were increased. He was then admitted on Apr with anemia. GI procedures for BERRY with EGD 04/13 with no varicies, portal HTN gastropathy, and colonoscopy with
15-18 mm polyp HP with. 4 mm polyp DC with clip placed. Pt was discharged then returned with continued bleeding without repeat procedures needed and stable hbg 7.6 on 04/18 then increase to 8.7 04/23. Pt now returns today with generalized
weakness. Per pt also noted with low grade fever/chills, confusions, abdominal distention. Pt has required 5 units PRBC's and 1 FFP since 04/11. Pt also had other testing with bili elevation with LDH 261, hatoglobin <10, retic count 3.9.
At this time patient patient admits to dark stools. He also noted low grade fever but severe fatigue and per family some confusion. He did have some abdominal pressure but improved after paracentesis. No issues with odynophagia, dysphagia,
GERD, nausea, vomiting, diarhea, constipation or red stools. Pt other labs on admission with platlet
Past Medical History
Past Medical History: COPD, CVA, HTN and Other (EtOH abuse, hepatitis C status posttreatment and eradication, decompensated alcoholic liver cirrhosis with ascites, chronic pain, current cigarette smoker, chronic thrombocytopenia, chronic
hyponatremia, insomnia)
Past Surgical History: Other (Tooth extraction, spinal fluid leak with patching 2001)
Social History
Tobacco: Smoker
Alcohol: Former (quit 1 year ago)
Drug: None
Personal:
Living: With Family
Family History
Family History: Other (No family history gastrointestinal malignancy or IBD)
Allergies / Home Medications
Allergy/AdvReac Type Severity Reaction Status Date / Time
No Known Allergies Allergy Verified 05/02/24 06:05
�Medication �Instructions �Recorded
albuterol sulfate 90 mcg/actuation 2 puff inhalation R Q6HPRN PRN 03/13/24
aerosol inhaler shortness of breath or wheezing
alprazolam 1 mg tablet 1 mg PO BID anxiety 03/13/24
furosemide 40 mg tablet (Lasix) 40 mg PO DAILY Fluid 03/13/24
Retention/Swelling
lidocaine 4 % topical patch 2 patch topical DAILYPRN PRN right 03/13/24
shoulder and knee
thiamine HCl (vitamin B1) 100 mg 100 mg PO DAILY Supplement 03/13/24
tablet
budesonide 160 mcg-glycopyr 9 2 inh inhalation R BID 04/11/24
mcg-formot 4.8 mcg/actuation HFA Lung/Breathing Issues
inhaler (Breztri Aerosphere)
magnesium oxide 400 mg PO BID Supplement 04/11/24
docusate sodium 100 mg tablet 100 mg PO HS Constipation 04/17/24
nicotine 14 mg/24 hr daily 14 mg transdermal DAILY nicotine 04/17/24
transdermal patch replacement ther
pantoprazole 40 mg tablet,delayed 40 mg PO DAILY Gastrointestinal 04/17/24
release Issue
spironolactone 50 mg tablet 50 mg PO DAILY Liver Issues 04/17/24
tramadol 50 mg tablet 50 mg PO BID mod sev pain 04/17/24
Review of Systems
-
History Source: Patient and Family
Constitutional: Reports Fever
EENT: Reports No Symptoms
Respiratory: Reports No Symptoms
Abdomen/GI: Reports Abdominal Pain and Black Stools
: Reports No Symptoms
Neurological: Reports Weakness and Other (confusion at time per patient )
Endocrine: Reports No Symptoms
Hematologic/Lymphatic: Reports No Symptoms
Vital Signs
Temp Pulse Resp BP Pulse Ox
98.6 F 107 16 147/75 99
05/02/24 07:53 05/02/24 07:53 05/02/24 07:53 05/02/24 07:53 05/02/24 07:53
Physical Exam
Exam
General: Well Developed and Well Nourished
HEENT: Normocephalic and Anicteric
Respiratory: Clear
Cardiac: Other (tachy)
GI: Soft, Non Tender and Distended
Rectal: Other (dark heme + per ER)
Musculoskeletal: No Clubbing and No Cyanosis
Skin: Warm and Dry
Neuro: Awake, Alert, AO x 3 and Other (minimal tremor)
Psych: Calm
Results
WBC 7.6 10^3/uL (4.8-10.8) 05/02/24 06:47
Hgb 6.5 g/dL (13.0-18.0) L* 05/02/24 06:47
Hct 19.5 % (39.0-52.0) L* 05/02/24 06:47
MCV 87.4 fL (80.0-94.0) 05/02/24 06:47
Plt Count 115 10^3/uL (130-400) L 05/02/24 06:47
Absolute Neuts (auto) 5.2 10^3/uL (1.4-6.5) 05/02/24 06:47
PT 17.0 Sec (11.4-14.6) H 05/02/24 06:47
INR 1.41 05/02/24 06:47
APTT 34.3 Sec (23.4-35.0) 05/02/24 06:47
Sodium 135 mmol/L (135-145) 05/02/24 06:47
Potassium 3.5 mmol/L (3.5-5.1) 05/02/24 06:47
Chloride 104 mmol/L (98-107) 05/02/24 06:47
Carbon Dioxide 27 mmol/L (22-30) 05/02/24 06:47
BUN 28 mg/dl (9-20) H 05/02/24 06:47
Creatinine 1.0 mg/dL (0.7-1.3) 05/02/24 06:47
Calcium 8.4 mg/dl (8.4-10.2) 05/02/24 06:47
Total Bilirubin 4.1 mg/dl (0.2-1.3) H 05/02/24 06:47
AST 51 U/L (17-59) 05/02/24 06:47
ALT 20 U/L (0-50) 05/02/24 06:47
Alkaline Phosphatase 77 U/L (38-126) 05/02/24 06:47
Lipase 305 U/L (23-300) H 05/02/24 06:47
Diagnostic Image Results:
Colonoscopy 04/13/2024-[facility] - One 15 to 18 mm polyp at the hepatic flexure,
removed using lift and cut and a hot snare and removed
with a cold snare. Resected and retrieved. Injected.
Treated with hot biopsy forceps. Ligated.
- One 4 mm polyp in the descending colon, removed with
a hot snare. Resected and retrieved. Clip was placed.
- Diverticulosis in the sigmoid colon, in the
descending colon and at the splenic flexure.
bx DC -TA and HF - HP polyp
EGD 04/13/2024� [facility] - No gross lesions in the entire esophagus. No varices.
- Z-line variable, 42 cm from the incisors.
- Portal hypertensive gastropathy.
- Normal examined duodenum.
- No specimens collected.
EGD:12/27/22 [facility] - Normal esophagus.
- Portal hypertensive gastropathy.
- Normal examined duodenum.
- No specimens collected.
04/11/2024 MRI Abd with and without:
IMPRESSION: Examination limited by motion artifact.
CT may be useful as the next surveillance imaging examination, as perhaps there would be less motion artifact.
Given this limitation, there is no MR evidence for hepatocellular carcinoma.
Findings of cirrhosis with ascites, splenomegaly, and prominent varices within the abdomen, and extending around the distal esophagus.
Assessment / Plan
-
58-year-old male with a past medical history significant for liver cirrhosis with decompensation- ascites, mild HE, hx GI bleed portal gastropathy and evidence of gastric and lower esophageal varices on recent MRI)with history of prior alcohol
abuse (last use 1 year ago), elevated AFP of 30 with neg MRI in early April, and hepatitis C status-post treatment(took 8 out of 12 weeks Epclusa but did eradication last year with neg RNA in February), Klebsiella pneumonia, hypertension,
thrombocytopenia, GERD, tobacco use - recently quit, anxiety, with recurrent admission with weakness, confusions per family, low grade fever with noted further drop in hbg to 6.5 on admission and heme + dark stools in Er. He has had several
recent admissions. In March noted with ascites with neg US doppler for PVT and diuretics were increased. He was then admitted on Apr with anemia. GI procedures for BERRY with EGD 04/13 with no varicies, portal HTN gastropathy, and colonoscopy with
15-18 mm polyp HP with. 4 mm polyp DC with clip placed. Pt was discharged then returned with continued bleeding without repeat procedures needed and stable hbg 7.6 on 04/18 then increase to 8.7 04/23. Pt now returns today with generalized
weakness. Per pt also noted with low grade fever/chills, confusions, abdominal distention. Pt has required 5 units PRBC's and 1 FFP since 04/11. Pt also had other testing with bili elevation with LDH 261, hatoglobin <10, retic count 3.9.
-anemia with dark heme + stool
-low grade fever prior to admission
-Decompensated alcoholic/Hep C liver cirrhosis, MELD 3.0= 18, MR with evidence for varices note seen on EGD
-generalized weakness, confusion per family with concern for mild HE
-recent concern for post polypectomy bleed
-Chronic thrombocytopenia
-intractable Ascites-> on Lasix 40 mg daily and Aldactone 50 g daily. Last paracentesis 05/02 for 6.5 liter (neg SBP/ prior neg cytology 04/11 and 03/14)
-hx hyponatremia
-Hyperbilirubinemia
-AFP now 30, was in the 10-12 range-> No MR 04/2024 findings to suggest HCC
-Hx Hep C s/p tx with Epclusa with SVR
Other pertinent medical history:
-Chronic pain
-GERD
-Hypertension
-Anxiety
Plan:
ETiology of weakness related to anemia with GI bleeding, also noted some confusion with normal ammonia may be mild HE
bleeding may by portal HTN gastropathy vs oozing with recent bleeding with polypectomy requiring ovesco clip closure vs other
agree with transfusion
trend hbg/platelets and monitor for recurrent bleeding
will review with Dr. Ramos need for repeat scopes as just complete in April
clear diet
with low grade fever - CXR stable -urine and blood cx pending
MELD 3.0 18 -- prior see with Dr. Skinner -- discussed continued follow up with -- she is consider follow up at [facility]-- advised to consider Dr. Dan in [place]
s/p para today neg SBP -- added albumin replacement
-ok for Clear liquid diet
if active bleeding consider vitamin K
-Continue Lasix 40 mg daily and Aldactone 50 mg daily-- may need to increased with continued issues with ascites as creat can tolerate
-Trend CBC, BMP, LFTs INR
-Daily weights
-Continue Pantoprazole gtt
-HCC screening - reviewed recent elevated AFP and neg MRI
discussed with patient and family caution with pain meds and liver disease
updated spouse and sister
-
-
Thank you for consultation and allowing me to participate in the patient's care. Please call the manager personal GI physician during the after hours with any questions or concerns.
[2024-05-02 09:17] LABS: Body Fluid WBC 75 /CUMM
[2024-05-02 10:07] LABS: Body Fluid Albumin < 1.0 g/dl; Body Fluid Amylase < 30 U/L; Body Fluid LDH < 90 U/L; Body Fluid Protein < 2.0 g/dl
[2024-05-02] MEDS: ULTRAM 50 MG PO (10:43)
[2024-05-02] MEDS: FLEXBUMIN 50 IV (11:14)
[2024-05-02 11:33] LABS: Body Fluid Second Tech CMB
--- NOTE | 2024-05-02 11:38 | HPS.HSE ---
Family Physician
-
Family Physician: Drake Goss
Chief Complaint
-
Weakness and fatigue x 24 hours
History of Present Illness
58 y/o M with PMHx:
Cirrhosis due to alcohol abuse and hepatitis C (treated)
COPD
CVA with residual right-sided weakness
Essential hypertension
Tobacco abuse disorder
Who presents with chief complaints of weakness and fatigue over the last 24 hours. Also mentions chills. Yesterday the patient's wanted him to come to the ER as he was confused. He had a paracentesis scheduled for today. Patient reports for
the last few weeks he has had black stool. He mentions that 2 to 3 weeks ago he had a EGD and colonoscopy and had a polyp clipped at the hepatic flexure. He had bleeding after the colonoscopy. Initially the blood was bright red and is now black.
Denies chest pain, shortness of breath, nausea, vomiting, diarrhea, abdominal pain. No other acute complaints.
Medical History
Past Medical History
Past Medical History: Reports Other (as per HPI)
Past Surgical History: Reports Other (N/A)
Social History
Tobacco: Smoker
Alcohol: Former
Drug: None
Family History
Family History: Not pertinent
Allergies / Home Medications
Allergies reflects when Allergies were last updated in [facility].
Home Medications with original date entered in [facility]
Allergy/Medication List:
Allergies
Allergy/AdvReac Type Severity Reaction Status Date / Time
No Known Allergies Allergy Verified 05/02/24 06:05
Home Medications
albuterol sulfate 90 mcg/actuation aerosol inhaler 2 puff inhalation R Q6HPRN PRN shortness of breath or wheezing 03/13/24
alprazolam 1 mg tablet 1 mg PO BID anxiety 03/13/24
furosemide 40 mg tablet (Lasix) 40 mg PO DAILY Fluid Retention/Swelling 03/13/24
lidocaine 4 % topical patch 2 patch topical DAILYPRN PRN right shoulder and knee 03/13/24
thiamine HCl (vitamin B1) 100 mg tablet 100 mg PO DAILY Supplement 03/13/24
budesonide 160 mcg-glycopyr 9 mcg-formot 4.8 mcg/actuation HFA inhaler (Breztri Aerosphere) 2 inh inhalation R BID Lung/Breathing Issues 04/11/24
magnesium oxide 400 mg PO BID Supplement 04/11/24
pantoprazole 40 mg tablet,delayed release 40 mg PO BID Gastrointestinal Issue 04/17/24
spironolactone 50 mg tablet 50 mg PO DAILY Liver Issues 04/17/24
tramadol 50 mg tablet 50 mg PO BIDPRN PRN MODERATE PAINS 04/17/24
Review of Systems
-
History Source: Patient
A 12 point ROS was completed and negative except as noted: Yes
Physical Exam
Vital Signs
Vital Signs
Temp Pulse Resp BP Pulse Ox
98.6 F 102 19 124/62 98
05/02/24 07:53 05/02/24 11:15 05/02/24 11:15 05/02/24 10:02 05/02/24 11:15
Physical Exam
General: Other (.)
Laboratory Results
-
05/02/24 06:47
05/02/24 06:47
Laboratory Results
PT 17.0 Sec (11.4-14.6) H 05/02/24 06:47
INR 1.41 05/02/24 06:47
APTT 34.3 Sec (23.4-35.0) 05/02/24 06:47
Lactic Acid 1.7 mmol/L (0.7-2.0) 05/02/24 06:54
Total Bilirubin 4.1 mg/dl (0.2-1.3) H 05/02/24 06:47
AST 51 U/L (17-59) 05/02/24 06:47
ALT 20 U/L (0-50) 05/02/24 06:47
Alkaline Phosphatase 77 U/L (38-126) 05/02/24 06:47
Lipase 305 U/L (23-300) H 05/02/24 06:47
Impression/Plan
-
Gen: NAD, AAOx3, appears chronically ill.
Eyes: EOMI, PERRLA, no scleral icterus.
Neck: supple.
CV: RRR, +S1/S2, no m/r/g.
Resp: CTAB, no rales, wheezes, or rhonchi.
Abd: +BS, soft, mild distention with ascites, ND
Skin: No rashes. Trace to 1+ bilateral lower extremity edema
Neuro: CN 2-12 intact, non-focal.
Psych: Normal mood and affect.
CT brain: Area of right frontal lobe decreased attenuation/encephalomalacia without significant change. No acute intracranial abnormality.
CXR: Clear lungs. No significant change compared to prior study.
Acute blood loss anemia:
-likely due to GIB in the setting of chronic disease. Recent EGD/colonoscopy with polyp removal and clipping at the hepatic flexure by Dr. Howard.
-Chronic cirrhosis due to alcohol abuse/alcoholic cirrhosis and HCV (treated)
-s/p scheduled paracentesis 05/02/24 for 6500cc, WBC 75 (no SBP)
-PPI gtt, IVFs, NPO
-transfuse 2U pRBCs
-H/H Q6H
-Reported confusion yesterday may have been hepatic encephalopathy. NH3 currently normal
Other problems:
COPD: Cont Breztri/albuterol
CVA with residual right-sided weakness
Essential hypertension: cont Aldactone/Lasix
Tobacco abuse disorder: will offer nicotine patch
Pt's updated over the phone.
FULL/SCDs (pharmacological DVT prophylaxis contraindicated with anemia/GI bleeding)
[2024-05-02] MEDS: FLEXBUMIN 100 IV (11:45)
--- NOTE | 2024-05-02 12:21 | EDRN ---
Pt refusing peripheral access from RN, will page IV team for midline.
[2024-05-02] MEDS: PROTONIX 100 IV ×2 (12:59→22:28)
[2024-05-02] MEDS: DUPHALAC/CHRONULAC 20 GRAMS PO (13:04)
[2024-05-02] MEDS: NSS (PRESERVATIVE FREE) 10 ML IV (13:04)
--- NOTE | 2024-05-02 13:04 | VATNOTE ---
Order for midline received. Went to see patient and PIV was obtained in the R hand, no issues from patient. Spoke to Dr. Merlos and ok to hold on midline until needed. Will continue to monitor.
[2024-05-02] MEDS: VITAMIN B1 100 MG PO (15:47)
[2024-05-02 15:55] LABS: Hematocrit 15.9 % (39.0-52.0)
[2024-05-02 16:07] LABS: Hemoglobin 5.3 g/dL (13.0-18.0)
--- NOTE | 2024-05-02 16:20 | PTCARENOTE ---
Pt with critical labs, Dr. Merlos notified via TT.
--- NOTE | 2024-05-02 16:32 | PTCARENOTE ---
Pt received from ED via stretcher. Presents as assessed. Pt forgetful and anxious, yelling out for staff and arguing regarding plan of care. Pt reeducated on protocols and safety procedures several times, continues to argue. Admission completed with
on speakerphone. First unit of PRBC's hung as ordered. Tolerating at this time. Bed alarm in place for safety. Call caballero within reach.
[2024-05-02] MEDS: SYMBICORT 160/4.5 MCG INHALER INH ×2 (19:40→19:48)
[2024-05-02] MEDS: XIFAXAN 550 MG PO (19:54)
--- NOTE | 2024-05-02 20:57 | PTCARENOTE ---
Caring for patient overnight. aaox3, but very forgetful & anxious. Unable to get xanax ordered d/t being admitted with slight change in MS.
PT receiving his 2nd unit of blood now, tolerating well. VSS.
Pt unhappy that he is unable to get OOB at the moment. Educated pt thoroughly about the risks of getting a pt up with a GIB. Will redraw hgb after blood is finished per protocol.
BA on, call caballero in reach. Will monitor.
[2024-05-03] VITALS (18 sets, daily range): BP systolic 102–139; BP diastolic 59–70; BMI 26.7
[2024-05-03 00:35] LABS: Hematocrit 18.1 % (39.0-52.0); Hemoglobin 6.2 g/dL (13.0-18.0)
--- NOTE | 2024-05-03 02:46 | PTCARENOTE ---
Pt is requesting to urinate almost every hour, only peeing 50cc or less at a time. PVR showed 210cc.
--- NOTE | 2024-05-03 02:46 | PTCARENOTE ---
Pt receiving 3rd unit of blood, hgb was 6.2 after 2 units. Pt states he is asymptomatic. VSS Still having dark stools.
--- NOTE | 2024-05-03 06:11 | W.PN.GI.CBS2 ---
Today's Communication / Plan
-
Please see assessment and plan for details.
Assessment / Plan
-
1. GI bleed: With underlying chronic anemia, with acute blood loss likely secondary to portal gastropathy versus delayed post polypectomy, though again this seems a bit far out for post polypectomy bleeding, status post Ovesco clip. He has
remained hemodynamically stable overnight, only 1 melenic stool. His previous EGD 2 weeks ago did not have esophageal or gastric varices. At this point will await morning hemoglobin, if has responded appropriately and no further significant gross
bleeding then we will restart diet. If does not respond appropriately or further bleeding then we will repeat EGD. Small bowel angiectasia seems less likely. If continued obscure bleeding then CT angiogram. Continue PPI for now, supportive care
and close observation.
2. Cirrhosis: Secondary to previous hepatitis C, status posttreatment eradication, decompensated with ascites, mild hepatic encephalopathy, elevated alpha-fetoprotein and portal gastropathy. Will continue rifaximin started yesterday, though his
mild encephalopathy is improved. He is status post paracentesis yesterday without SBP, status post albumin, continue outpatient diuretics. His MELD is overall low, will be seeing Dr. Dan for transplant evaluation as well as likely further
workup of elevated alpha-fetoprotein with negative MRI.
Subjective
Subjective
Date of Service: May 03, 2024
Events noted, 1 melenic stool overnight, has received a total of 3 units of PRBCs, the vital signs have remained stable overnight. He denies any lightheadedness or dizziness. He has some mild abdominal discomfort, no fevers overnight.
Objective
Data Reviewed
Laboratory Data:
Laboratory Results
PT 17.0 Sec (11.4-14.6) H 05/02/24 06:47
INR 1.41 05/02/24 06:47
APTT 34.3 Sec (23.4-35.0) 05/02/24 06:47
Magnesium 2.1 mg/dl (1.6-2.3) 05/02/24 06:47
Total Bilirubin 4.1 mg/dl (0.2-1.3) H 05/02/24 06:47
AST 51 U/L (17-59) 05/02/24 06:47
ALT 20 U/L (0-50) 05/02/24 06:47
Alkaline Phosphatase 77 U/L (38-126) 05/02/24 06:47
Lipase 305 U/L (23-300) H 05/02/24 06:47
Vital Signs and I&O:
Vital Signs
Temp Pulse Resp BP Pulse Ox
98.4 F 103 20 125/64 96
05/03/24 05:15 05/03/24 05:15 05/03/24 05:15 05/03/24 05:15 05/03/24 05:15
I&O
05/01/24 05/02/24 05/03/24
06:59 06:59 06:59
Intake Total 1110 / 1110
Output Total 525 / 525
Balance 585 / 585
Physical Exam
Physical Exam
General: NAD, improved speech, oriented x 3
Abdomen: normal bowel sounds, soft, no tenderness, no masses or bruits, mild ascites
[2024-05-03] MEDS: PROTONIX 100 IV ×2 (06:51→17:40)
[2024-05-03] MEDS: XIFAXAN 550 MG PO ×2 (08:12→20:28)
[2024-05-03] MEDS: LASIX 40 MG PO (08:12)
[2024-05-03] MEDS: ALDACTONE 50 MG PO (08:12)
[2024-05-03] MEDS: VITAMIN B1 100 MG PO (08:12)
[2024-05-03] MEDS: MAG-TAB SR 84 MG PO (08:12)
[2024-05-03] MEDS: NICODERM TRANSDERMAL 14 MG TRANSDERM (08:13)
--- NOTE | 2024-05-03 08:27 | W.PN.HOSP.TC ---
Today's Communication/Plan
-
see bold
Assessment / Plan
Assessment / Plan
Gen: NAD, AAOx3, appears chronically ill.
Eyes: EOMI, PERRLA, no scleral icterus.
Neck: supple.
CV: RRR, +S1/S2, no m/r/g.
Resp: CTAB, no rales, wheezes, or rhonchi.
Abd: +BS, soft, mild distention with ascites, ND
Skin: No rashes. Trace to 1+ bilateral lower extremity edema.
Neuro: CN 2-12 intact, non-focal.
Psych: Normal mood and affect.
CT brain: Area of right frontal lobe decreased attenuation/encephalomalacia without significant change. No acute intracranial abnormality.
CXR: Clear lungs. No significant change compared to prior study.
Acute blood loss anemia:
-likely due to GIB in the setting of chronic disease. Recent EGD/colonoscopy with polyp removal and clipping at the hepatic flexure (large amount of bleeding at this time) by Dr. Howard. No esophageal/gastric varices at that time. As per discussion
with GI pt likely had oozing from prior clip site.
-Chronic cirrhosis due to alcohol abuse/alcoholic cirrhosis and HCV (treated)
-s/p scheduled paracentesis 05/02/24 for 6500cc, WBC 75 (no SBP)
-Hb 7.5 s/p 3U pRBCs
-PPI gtt
-start clears
-H/H Q6H
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 NH3 normal on admission.
-discussed with GI
Other problems:
COPD: Cont Breztri/albuterol
CVA with residual right-sided weakness
Essential hypertension: cont Aldactone/Lasix
Tobacco abuse disorder: will offer nicotine patch
Pt's updated over the phone.
FULL/SCDs (pharmacological DVT prophylaxis contraindicated with anemia/GI bleeding)
Total time spent on today's encounter was 50 minutes which included time spent in counseling the patient/family regarding diagnosis and treatment plan as listed above, goals of care, and symptom management. Case was discussed with nursing staff,
specialists, and care coordinators/case management. All labs and imaging personally reviewed by me. Remainder the time spent in detailed review of previous records, lab data, imaging, and other medical provider documentation.
Anticipated Discharge: 24 - 48 hours
Subjective/Interval History
-
Date of Service: May 03, 2024
Objective Data
-
Labs:
Laboratory Results
05/03/24 05/03/24 05/03/24
00:16 01:58 08:24
WBC Pending
Hgb 6.2 L* Cancelled Pending
Hct 18.1 L* Cancelled
Plt Count
PT
INR
Sodium
Potassium
Chloride
Carbon Dioxide
BUN
Creatinine
Glucose
Calcium
05/03/24 05/03/24
08:24 08:24
WBC
Hgb Pending
Hct Pending Pending
Plt Count Pending
PT Pending
INR Pending
Sodium Pending
Potassium Pending
Chloride Pending
Carbon Dioxide Pending
BUN Pending
Creatinine Pending
Glucose Pending
Calcium Pending
Vital Signs:
Vital Signs
Temp Pulse Resp BP Pulse Ox
98.4 F 89 20 117/65 96
05/03/24 05:15 05/03/24 08:12 05/03/24 05:15 05/03/24 08:12 05/03/24 05:15
I&O
05/02/24 05/03/24 05/04/24
06:59 06:59 06:59
Intake Total 1110 / 1110
Output Total 525 / 525
Balance 585 / 585
[2024-05-03] MEDS: SYMBICORT 160/4.5 MCG INHALER INH ×2 (08:32→21:00)
[2024-05-03] MEDS: SPIRIVA RESPIMAT 2.5 MCG INH (08:32)
[2024-05-03 08:39] LABS: Hematocrit 21.9 % (39.0-52.0); Hematocrit 22.6 % (39.0-52.0); Mean Corp Hgb Conc. 33.2 g/dL (33.0-37.0); Mean Corpuscular Hgb 27.6 pg (27.0-31.0); Mean Corpuscular Volume 83.1 fL (80.0-94.0); Mean Platelet Volume 9.7 fL (7.4-10.4); Platelet Count 75 10^3/uL (130-400); Red Blood Cell Count 2.72 10^6/uL (4.70-6.10); Red Cell Dist. Width 20.7 % (11.5-14.5); White Blood Cell Count 5.2 10^3/uL (4.8-10.8)
--- NOTE | 2024-05-03 08:42 | VNURNOTE ---
Patient is current with [facility] since 04/20 w/SN, will monitor progress and plan at discharge.
[2024-05-03 08:44] LABS: INR 1.51; PT 18.3 Sec (11.4-14.6)
[2024-05-03 08:49] LABS: Hemoglobin 7.5 g/dL (13.0-18.0)
[2024-05-03 08:50] LABS: Blood Urea Nitrogen 26 mg/dl (9-20); Calcium 8.2 mg/dl (8.4-10.2); Carbon Dioxide 27 mmol/L (22-30); Chloride 104 mmol/L (98-107); Estimated Creatinine Clearance 78 ml/min; Glucose 107 mg/dl (70-99); Potassium 3.3 mmol/L (3.5-5.1); Sodium 134 mmol/L (135-145); eGFR > 60.00
--- NOTE | 2024-05-03 08:59 | W.PN.UPDATE ---
Update Note
Progress Note Update
Morning labs reviewed, hemoglobin up to 7.5, no bowel movements, vital signs have been stable. More likely oozing from post polypectomy site with negative EGD just 2 weeks ago. Will continue clears for today and observation.
[2024-05-03] MEDS: XANAX 1 MG PO ×2 (09:57→20:28)
--- NOTE | 2024-05-03 10:52 | CM ---
CM following re: discharge planning.
Reviewed pt's chart, met with pt and pt's daughter Valeria at bedside.
Pt is a 58 year old male, admitted with primary dx of Acute blood loss anemia.
Pt reports he lives with spouse 2SH, 1 step to enter, has 3 supportive daughters. Pt reports he ambulates with a cane and is active with [facility]. No SNF history. Pt expressed his fears regarding evaluations for liver transplant with Dr. Dan.
Emotional; support offered and provided. Pt's daughter stated that pt will need some psychosocial therapy at home and she agrees that social worker psychiatric visits will be requested.
[facility] liaison confirmed that pt is active with [facility] and [facility] will resume services upon the discharge. CM requested SW visits.
PCP: saran Wood
Pharmacy: [facility].
D/C plan: home with resumptions of [facility] and family support. Spouse to transport at discharge.
CM will follow with discharge plan updates as hospitalization progresses
[2024-05-03] MEDS: KCL 40 MEQ PO (20:29)
[2024-05-04] VITALS (22 sets, daily range): BP systolic 100–136; BP diastolic 54–80; PULSE 90–97; BMI 27.0
[2024-05-04] MEDS: PROTONIX 100 IV ×2 (03:55→13:28)
--- NOTE | 2024-05-04 04:35 | PTCARENOTE ---
At beginning of shift House DELIVERY DRIVER ordered 40meq PO K for K of 3.3, given at 20:29. Pt OOB to commode attempting to have BM multiple times overnight without success. Voids frequently into urinal. 50-275 ccs priyank urine each time. Denies c/o pain.
AAOx3 but forgetful and repeats himself often. Pt using call caballero appropriately, Bed alarm on. SR/ST on tele. VSS.
[2024-05-04 04:57] LABS: Hemoglobin 7.1 g/dL (13.0-18.0); Mean Corp Hgb Conc. 34.5 g/dL (33.0-37.0); Mean Corpuscular Hgb 27.7 pg (27.0-31.0); Mean Corpuscular Volume 80.5 fL (80.0-94.0); Mean Platelet Volume 9.5 fL (7.4-10.4); Platelet Count 74 10^3/uL (130-400); Red Blood Cell Count 2.56 10^6/uL (4.70-6.10); Red Cell Dist. Width 19.9 % (11.5-14.5); White Blood Cell Count 4.8 10^3/uL (4.8-10.8)
[2024-05-04 04:59] LABS: Hematocrit 20.6 % (39.0-52.0)
[2024-05-04 05:17] LABS: Blood Urea Nitrogen 20 mg/dl (9-20); Calcium 8.1 mg/dl (8.4-10.2); Carbon Dioxide 25 mmol/L (22-30); Chloride 103 mmol/L (98-107); Estimated Creatinine Clearance 87 ml/min; Glucose 94 mg/dl (70-99); Potassium 3.4 mmol/L (3.5-5.1); Sodium 132 mmol/L (135-145); eGFR > 60.00
--- NOTE | 2024-05-04 05:26 | PTCARENOTE ---
pt H&H this am = 7.1/20.6. no BMs overnight. Denies symptoms of dizziness or lightheadedness. MARCIA Jon made aware.
[2024-05-04] MEDS: SPIRIVA RESPIMAT 2.5 MCG INH (08:08)
[2024-05-04] MEDS: SYMBICORT 160/4.5 MCG INHALER INH (08:08)
--- NOTE | 2024-05-04 09:47 | W.PN.HOSP.TC ---
Today's Communication/Plan
-
see bold
Assessment / Plan
Assessment / Plan
Gen: NAD, Awake and alert, appears chronically ill.
Eyes: EOMI, PERRLA, no scleral icterus.
Neck: supple.
CV: RRR, +S1/S2, no m/r/g.
Resp: CTAB, no rales, wheezes, or rhonchi.
Abd: +BS, soft, mod distention with ascites, ND
Skin: No rashes. 1+ bilateral lower extremity edema.
Neuro: CN 2-12 intact, non-focal.
Psych: Normal mood and affect.
CT brain: Area of right frontal lobe decreased attenuation/encephalomalacia without significant change. No acute intracranial abnormality.
CXR: Clear lungs. No significant change compared to prior study.
Acute blood loss anemia:
-likely due to GIB in the setting of chronic disease. Recent EGD/colonoscopy with polyp removal and clipping at the hepatic flexure (large amount of bleeding at this time) by Dr. Howard. No esophageal/gastric varices at that time. As per discussion
with GI pt likely had oozing from prior clip site.
-Chronic cirrhosis due to alcohol abuse/alcoholic cirrhosis and HCV (treated)
-s/p scheduled paracentesis 05/02/24 for 6500cc, WBC 75 (no SBP)
-Hb 7.1 s/p 3U pRBCs, transfuse another 1U pRBCs
-cont PPI gtt
-cont clears
-H/H Q6H
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 NH3 normal on admission.
-discussed with GI
Other problems:
COPD: Cont Breztri/albuterol
CVA with residual right-sided weakness
Essential hypertension: cont Aldactone/Lasix
Tobacco abuse disorder: will offer nicotine patch
Pt's updated over the phone.
FULL/SCDs (pharmacological DVT prophylaxis contraindicated with anemia/GI bleeding)
Total time spent on today's encounter was 52 minutes which included time spent in counseling the patient/family regarding diagnosis and treatment plan as listed above, goals of care, and symptom management. Case was discussed with nursing staff,
specialists, and care coordinators/case management. All labs and imaging personally reviewed by me. Remainder the time spent in detailed review of previous records, lab data, imaging, and other medical provider documentation.
Anticipated Discharge: > 48 hours
Subjective/Interval History
-
Date of Service: May 04, 2024
Objective Data
-
Labs:
Laboratory Results
05/04/24
04:37
WBC 4.8
Hgb 7.1 L
Hct 20.6 L*
Plt Count 74 L
Sodium 132 L
Potassium 3.4 L
Chloride 103
Carbon Dioxide 25
BUN 20
Creatinine 0.9
Glucose 94
Calcium 8.1 L
Vital Signs:
Vital Signs
Temp Pulse Resp BP Pulse Ox
97.8 F 84 22 105/62 97
05/04/24 07:50 05/04/24 06:00 05/04/24 06:00 05/04/24 06:00 05/04/24 06:00
I&O
05/03/24 05/04/24 05/05/24
06:59 06:59 06:59
Intake Total 1110 / 1110 2460 / 2460
Output Total 525 / 525 1650 / 1650 150 / 150
Balance 585 / 585 810 / 810 -150 / -150
[2024-05-04] MEDS: LASIX 40 MG PO (10:14)
[2024-05-04] MEDS: ALDACTONE 50 MG PO (10:15)
[2024-05-04] MEDS: VITAMIN B1 100 MG PO (10:16)
[2024-05-04] MEDS: XIFAXAN 550 MG PO ×2 (10:16→20:00)
[2024-05-04] MEDS: NICODERM TRANSDERMAL 14 MG TRANSDERM (10:16)
[2024-05-04] MEDS: KCL 40 MEQ PO (10:16)
[2024-05-04] MEDS: MAG-TAB SR 84 MG PO (10:16)
[2024-05-04] MEDS: XANAX 1 MG PO ×2 (10:24→21:09)
--- NOTE | 2024-05-04 10:36 | PTCARENOTE ---
Patient anxious, very forgetful, repetitive. Have discussed plan of care and educated patient on many aspects of his care a few times. Spoke with by phone, will call again later with updates after doctors round. Tolerating CLD. Very small,
loose, brown BM yesterday. Protonix drip infusing as ordered. To get a unit of RBCs today. Bed alarm on for safety. Call caballero in reach. VSS. Continuing to closely monitor patient.
--- NOTE | 2024-05-04 14:06 | CHAP ---
Emotional and spiritual support provided for Cortez and his at bedside, and then accompanied her to the waiting area for more conversation. Both are very overwhelmed and tearful. Will follow as able.
--- NOTE | 2024-05-04 15:20 | W.PN.GI.CBS2 ---
Addendum entered and electronically signed by Norris Smith MD 05/04/24 17:28:
I saw and examined the patient.
The PA's note was reviewed and I agree with the note.
Comment:
No further melena o/n, had brownish stool yesterday. Hgb remains stable at 7.1. Pt was admitted with Hgb 6.9 on 04/11 prior to EGD/colonoscopy and subsequent GI bleeding, thus his anemia may be from alternate etiology other than GI bleed. Will
follow clinically to determine if repeat endoscopic evaluation is indicated.
Original Note:
Today's Communication / Plan
-
Trend CBC
Assessment / Plan
-
1. GI bleed: With underlying chronic anemia, with acute blood loss likely secondary to portal gastropathy versus delayed post polypectomy, though again this seems a bit far out for post polypectomy bleeding, status post Ovesco clip. His previous
EGD 2 weeks ago did not have esophageal or gastric varices. MELD 18.
-Continue clear liquid diet for now.
-Repeat CBC in am as long as no active signs of bleeding
-If with active signs of bleeding would obtain CT angiogram
-Continue PPI
2. Cirrhosis: Secondary to previous hepatitis C, status posttreatment eradication, decompensated with ascites, mild hepatic encephalopathy, elevated alpha-fetoprotein and portal gastropathy.
-Continue Xifaxan
-Continue Lasix 40 mg po daily and Aldactone 50 mg daily
-Discussed importance of outpatient 2 gm Na diet again with patient and who is a RN.
-Daily weights
-Had paracentesis 5600 on 05/02/24 (5600 removed) no SBP, s/p albumin.
-Has outpatient evaluation withe Dr. Dan for transplant eval in June with elevated AFP with negative MRI.
Subjective
Subjective
Date of Service: May 04, 2024
Patient with some mild RUQ discomfort. No BM today. Had small brown BM yesterday. Tolerating clear liquid diet. Hgb 7.1 this am down from 7.5 post transfusion draw after 1 unit PRBC given for Hgb of 6.2. Patient receiving another unit PRBC for the
Hgb of 7.1 from this am.
Objective
Data Reviewed
Laboratory Data:
Laboratory Results
05/04/24 04:37
05/04/24 04:37
Laboratory Results
PT 18.3 Sec (11.4-14.6) H 05/03/24 08:24
INR 1.51 05/03/24 08:24
APTT 34.3 Sec (23.4-35.0) 05/02/24 06:47
Magnesium 2.1 mg/dl (1.6-2.3) 05/02/24 06:47
Total Bilirubin 4.1 mg/dl (0.2-1.3) H 05/02/24 06:47
AST 51 U/L (17-59) 05/02/24 06:47
ALT 20 U/L (0-50) 05/02/24 06:47
Alkaline Phosphatase 77 U/L (38-126) 05/02/24 06:47
Lipase 305 U/L (23-300) H 05/02/24 06:47
Vital Signs and I&O:
Vital Signs
Temp Pulse Resp BP Pulse Ox
98 F 84 18 115/65 99
05/04/24 12:35 05/04/24 12:36 05/04/24 12:36 05/04/24 12:36 05/04/24 12:36
I&O
05/03/24 05/04/24 05/05/24
06:59 06:59 06:59
Intake Total 1110 / 1110 2460 / 2460 240 / 240
Output Total 525 / 525 1650 / 1650 450 / 450
Balance 585 / 585 810 / 810 -210 / -210
Physical Exam
Physical Exam
HEENT: Anicteric
Cardiology: Normal Sinus Rhythm
Pulmonary: Clear (anterior)
GI: Soft, Distended (mild ascites), Tender (mild RUQ tenderness) and Normal Bowel Sounds
Neuro: Non Focal and Other (no asterixis)
[2024-05-04] MEDS: SYMBICORT 160/4.5 MCG INHALER 2 PUFF INH (19:59)
[2024-05-05] VITALS (7 sets, daily range): BP systolic 117–138; BP diastolic 56–72; BMI 27.7
[2024-05-05] MEDS: PROTONIX 100 IV (00:36)
[2024-05-05 03:37] LABS: Hematocrit 24.9 % (39.0-52.0); Hemoglobin 8.4 g/dL (13.0-18.0); Mean Corp Hgb Conc. 33.7 g/dL (33.0-37.0); Mean Corpuscular Hgb 28.4 pg (27.0-31.0); Mean Corpuscular Volume 84.1 fL (80.0-94.0); Mean Platelet Volume 9.8 fL (7.4-10.4); Platelet Count 75 10^3/uL (130-400); Red Blood Cell Count 2.96 10^6/uL (4.70-6.10); Red Cell Dist. Width 18.8 % (11.5-14.5); White Blood Cell Count 4.9 10^3/uL (4.8-10.8)
[2024-05-05 04:02] LABS: Blood Urea Nitrogen 15 mg/dl (9-20); Calcium 8.1 mg/dl (8.4-10.2); Carbon Dioxide 24 mmol/L (22-30); Chloride 103 mmol/L (98-107); Estimated Creatinine Clearance 87 ml/min; Glucose 97 mg/dl (70-99); Potassium 3.7 mmol/L (3.5-5.1); Sodium 132 mmol/L (135-145); eGFR > 60.00
[2024-05-05] MEDS: SPIRIVA RESPIMAT 2.5 MCG 2 PUFF INH (07:41)
[2024-05-05] MEDS: SYMBICORT 160/4.5 MCG INHALER 2 PUFF INH ×2 (07:41→17:49)
[2024-05-05] MEDS: NICODERM TRANSDERMAL 14 MG TRANSDERM (08:49)
[2024-05-05] MEDS: LASIX 40 MG PO (08:50)
[2024-05-05] MEDS: MAG-TAB SR 84 MG PO (08:50)
[2024-05-05] MEDS: ALDACTONE 50 MG PO (08:50)
[2024-05-05] MEDS: XIFAXAN 550 MG PO ×2 (08:50→19:53)
[2024-05-05] MEDS: VITAMIN B1 100 MG PO (08:50)
[2024-05-05] MEDS: XANAX 1 MG PO ×2 (08:50→19:53)
--- NOTE | 2024-05-05 10:15 | W.PN.HOSP.TC ---
Today's Communication/Plan
-
see bold
Assessment / Plan
Assessment / Plan
Gen: NAD, Awake and alert, appears chronically ill.
Eyes: EOMI, PERRLA, no scleral icterus.
Neck: supple.
CV: remains RRR, +S1/S2, no m/r/g.
Resp: remains CTAB, no rales, wheezes, or rhonchi.
Abd: +BS, soft, mod distention with ascites, ND
Skin: No rashes.
Neuro: CN 2-12 intact, non-focal.
Psych: Normal mood and affect.
CT brain: Area of right frontal lobe decreased attenuation/encephalomalacia without significant change. No acute intracranial abnormality.
CXR: Clear lungs. No significant change compared to prior study.
Acute blood loss anemia:
-likely due to GIB in the setting of chronic disease. Recent EGD/colonoscopy with polyp removal and clipping at the hepatic flexure (large amount of bleeding at this time) by Dr. Howard. No esophageal/gastric varices at that time. As per discussion
with GI pt likely had oozing from prior clip site.
-Chronic cirrhosis due to alcohol abuse/alcoholic cirrhosis and HCV (treated)
-s/p scheduled paracentesis 05/02/24 for 6500cc, WBC 75 (no SBP)
-Hb 8.4 s/p 4U pRBCs, trend Hb
-stop PPI gtt, transition to PPI BID
-advanced to fulls
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 NH3 normal on admission.
-GI following
Other problems:
COPD: Cont Breztri/albuterol
CVA with residual right-sided weakness
Essential hypertension: cont Aldactone/Lasix
Tobacco abuse disorder
FULL/SCDs (pharmacological DVT prophylaxis contraindicated with anemia/GI bleeding)
Anticipated Discharge: 24 - 48 hours
Subjective/Interval History
-
Date of Service: May 05, 2024
Reports last BM was isabel.
Objective Data
-
Labs:
Laboratory Results
05/05/24
03:25
WBC 4.9
Hgb 8.4 L
Hct 24.9 L
Plt Count 75 L
Sodium 132 L
Potassium 3.7
Chloride 103
Carbon Dioxide 24
BUN 15
Creatinine 0.9
Glucose 97
Calcium 8.1 L
Vital Signs:
Vital Signs
Temp Pulse Resp BP Pulse Ox
98.3 F 79 16 122/72 95
05/05/24 07:50 05/05/24 07:42 05/05/24 07:42 05/05/24 02:00 05/05/24 07:42
I&O
05/04/24 05/05/24 05/06/24
06:59 06:59 06:59
Intake Total 2460 / 2460 1090 / 1090
Output Total 1650 / 1650 875 / 875 50 / 50
Balance 810 / 810 215 / 215 -50 / -50
[2024-05-05] MEDS: PROTONIX 40 MG PO ×2 (11:07→19:53)
--- NOTE | 2024-05-05 11:08 | PTCARENOTE ---
Pt downgraded to med surg, discussed plan with Dr. Merlos. Pt continues with forgetfulness and perseverates on his diet order. Safe environment maintained.
--- NOTE | 2024-05-05 11:55 | PTCARENOTE ---
Report called to SUAD Gibson pt to be transfered to [phone].
--- NOTE | 2024-05-05 13:20 | W.PN.GI.CBS2 ---
Today's Communication / Plan
-
.
Assessment / Plan
-
1. GI bleed: With underlying chronic anemia, with acute blood loss likely secondary to portal gastropathy versus delayed post polypectomy, though again this seems a bit far out for post polypectomy bleeding, status post Ovesco clip. His previous
EGD 2 weeks ago did not have esophageal or gastric varices. MELD 18.
- having brown BM o/n as per pt, no clinical sign of ongoing hemorrhage. Hgb 8.4 today. continue with FLD today, if Hgb remains stable tomorrow/no clincal sign of bleeding tomorrow, will advance deit to regular and likely d/c planning thereafter.
2. Cirrhosis: Secondary to previous hepatitis C, status posttreatment eradication, decompensated with ascites, mild hepatic encephalopathy, elevated alpha-fetoprotein and portal gastropathy.
-Continue Xifaxan
-Continue Lasix 40 mg po daily and Aldactone 50 mg daily
-Discussed importance of outpatient 2 gm Na diet again with patient and who is a RN.
-Daily weights
-Had paracentesis 5600 on 05/02/24 (5600 removed) no SBP, s/p albumin.
-Has outpatient evaluation withe Dr. Dan for transplant eval in June with elevated AFP with negative MRI.
Total Time Spent with Patient (in minutes): 35
Subjective
Subjective
Date of Service: May 05, 2024
Had brown BM o/n as per pt. Hgb up at 8.
Objective
Data Reviewed
Laboratory Data:
Laboratory Results
05/05/24 03:25
05/05/24 03:25
Laboratory Results
PT 18.3 Sec (11.4-14.6) H 05/03/24 08:24
INR 1.51 05/03/24 08:24
APTT 34.3 Sec (23.4-35.0) 05/02/24 06:47
Magnesium 2.1 mg/dl (1.6-2.3) 05/02/24 06:47
Total Bilirubin 4.1 mg/dl (0.2-1.3) H 05/02/24 06:47
AST 51 U/L (17-59) 05/02/24 06:47
ALT 20 U/L (0-50) 05/02/24 06:47
Alkaline Phosphatase 77 U/L (38-126) 05/02/24 06:47
Lipase 305 U/L (23-300) H 05/02/24 06:47
Vital Signs and I&O:
Vital Signs
Temp Pulse Resp BP Pulse Ox
98.4 F 91 18 138/64 98
05/05/24 12:33 05/05/24 12:33 05/05/24 12:33 05/05/24 12:33 05/05/24 12:33
I&O
05/04/24 05/05/24 05/06/24
06:59 06:59 06:59
Intake Total 2460 / 2460 1090 / 1090
Output Total 1650 / 1650 875 / 875 375 / 375
Balance 810 / 810 215 / 215 -375 / -375
[2024-05-05] MEDS: SPIRIVA RESPIMAT 2.5 MCG INH (17:49)
--- NOTE | 2024-05-05 22:00 | PTCARENOTE ---
pt went to [facility] to have BM. before flushing, RN noted nahomy red blood in toilet. BM was hard to clearly see d/t bloody water. pt did mention having a large hemorrhoid, RN inspected hemorrhoid. it was hard to visualize whether blood was from hemorrhoid
or not. MARCIA Cadena made aware, pt remains asymptomatic, VSS. PRODUCT SUPPORT SPECIALIST noted to continue to monitor throughout night.
[2024-05-06 06:00] VITALS: BMI 27.7
[2024-05-06 06:43] LABS: Hematocrit 24.6 % (39.0-52.0); Hemoglobin 8.2 g/dL (13.0-18.0); Mean Corp Hgb Conc. 33.3 g/dL (33.0-37.0); Mean Corpuscular Hgb 28.5 pg (27.0-31.0); Mean Corpuscular Volume 85.4 fL (80.0-94.0); Mean Platelet Volume 9.6 fL (7.4-10.4); Platelet Count 68 10^3/uL (130-400); Red Blood Cell Count 2.88 10^6/uL (4.70-6.10); Red Cell Dist. Width 19.2 % (11.5-14.5); White Blood Cell Count 4.1 10^3/uL (4.8-10.8)
[2024-05-06 07:00] VITALS: BP 123/51
[2024-05-06 07:13] LABS: Blood Urea Nitrogen 13 mg/dl (9-20); Calcium 8.1 mg/dl (8.4-10.2); Carbon Dioxide 25 mmol/L (22-30); Chloride 103 mmol/L (98-107); Estimated Creatinine Clearance 97 ml/min; Glucose 92 mg/dl (70-99); Potassium 3.7 mmol/L (3.5-5.1); Sodium 132 mmol/L (135-145); eGFR > 60.00
[2024-05-06] MEDS: SPIRIVA RESPIMAT 2.5 MCG 2 PUFF INH (07:46)
[2024-05-06] MEDS: SYMBICORT 160/4.5 MCG INHALER 2 PUFF INH ×2 (07:47→20:16)
--- NOTE | 2024-05-06 07:49 | W.PN.HOSP.TC ---
Today's Communication/Plan
-
see bold
Assessment / Plan
Assessment / Plan
Gen: NAD, Awake and alert, appears chronically ill.
Eyes: EOMI, PERRLA, no scleral icterus.
Neck: supple.
CV: continues to remain RRR, +S1/S2, no m/r/g.
Resp: continues to remain CTAB, no rales, wheezes, or rhonchi.
Abd: +BS, soft, mod distention with ascites, ND
Skin: No rashes.
Neuro: remains CN 2-12 intact, non-focal.
Psych: Normal mood and affect.
CT brain: Area of right frontal lobe decreased attenuation/encephalomalacia without significant change. No acute intracranial abnormality.
CXR: Clear lungs. No significant change compared to prior study.
Acute blood loss anemia:
-likely due to GIB in the setting of chronic disease. Recent EGD/colonoscopy with polyp removal and clipping at the hepatic flexure (large amount of bleeding at this time) by Dr. Howard. No esophageal/gastric varices at that time. As per discussion
with GI pt likely had oozing from prior clip site.
-Chronic cirrhosis due to alcohol abuse/alcoholic cirrhosis and HCV (treated)
-s/p scheduled paracentesis 05/02/24 for 6500cc, WBC 75 (no SBP)
-Hb 8.2 s/p 4U pRBCs, stable
-was on PPI gtt, now transitioned to PPI BID
-advanced to fulls but now pt with BRBPR. Make NPO, will discuss with GI
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 NH3 normal on admission.
Other problems:
COPD: Cont Breztri/albuterol
CVA with residual right-sided weakness
Essential hypertension: cont Aldactone/Lasix
Tobacco abuse disorder
FULL/SCDs (pharmacological DVT prophylaxis contraindicated with anemia/GI bleeding/thrombocytopenia)
Anticipated Discharge: 24 - 48 hours
Subjective/Interval History
-
Date of Service: May 06, 2024
Reports bright red blood per rectum overnight and this morning.
Objective Data
-
Labs:
Laboratory Results
05/06/24
05:52
WBC 4.1 L
Hgb 8.2 L
Hct 24.6 L
Plt Count 68 L
Sodium 132 L
Potassium 3.7
Chloride 103
Carbon Dioxide 25
BUN 13
Creatinine 0.8
Glucose 92
Calcium 8.1 L
Vital Signs:
Vital Signs
Temp Pulse Resp BP Pulse Ox
98.4 F 92 20 124/71 94
05/05/24 22:49 05/05/24 22:49 05/05/24 22:49 05/05/24 22:49 05/05/24 22:49
I&O
05/05/24 05/06/24 05/07/24
06:59 06:59 06:59
Intake Total 1090 / 1090 1080 / 1080
Output Total 875 / 875 1750 / 1750
Balance 215 / 215 -670 / -670
[2024-05-06] MEDS: ALDACTONE 50 MG PO (08:07)
[2024-05-06] MEDS: NICODERM TRANSDERMAL 14 MG TRANSDERM (08:07)
[2024-05-06] MEDS: MAG-TAB SR 84 MG PO (08:07)
[2024-05-06] MEDS: VITAMIN B1 100 MG PO (08:07)
[2024-05-06] MEDS: PROTONIX 40 MG PO ×2 (08:07→20:27)
[2024-05-06] MEDS: LASIX 40 MG PO (08:07)
[2024-05-06] MEDS: XIFAXAN 550 MG PO ×2 (08:07→20:27)
--- NOTE | 2024-05-06 09:46 | CM ---
Patient still requiring acute care but functionally at baseline. No skilled PT/OT needed per rehab.
Plan: Case management will continue to follow and assist with discharge planning. Home when stable.
[2024-05-06] MEDS: XANAX PO (12:11)
--- NOTE | 2024-05-06 12:42 | CHAP ---
Met briefly with Mr. Mazariegos, who requested that we 'come back tomorrow.' 'I don't want to get emotional,' he said. Assured him we are here for him and will keep him in prayer.
--- NOTE | 2024-05-06 13:06 | W.PN.GI.CBS2 ---
Today's Communication / Plan
-
colonoscopy tomorrow
Assessment / Plan
-
1. GI bleed: With underlying chronic anemia, with acute blood loss likely secondary to portal gastropathy versus delayed post polypectomy, though again this seems a bit far out for post polypectomy bleeding, status post Ovesco clip. His previous
EGD 2 weeks ago did not have esophageal or gastric varices. MELD 18.
- reported some rectal bleeding o/n. pt took photograph of his rectal bleeding, this was reviewed; scant amount of red blood which appears most consistent with hemorrhoidal bleed. Hgb stable at 8.2 today. although suspicion for recurrent GI bleed
is low, will plan for colonoscopy tomorrow. Likely d/c planning thereafter.
2. Cirrhosis: Secondary to previous hepatitis C, status posttreatment eradication, decompensated with ascites, mild hepatic encephalopathy, elevated alpha-fetoprotein and portal gastropathy.
-Continue Xifaxan
-Continue Lasix 40 mg po daily and Aldactone 50 mg daily
-Discussed importance of outpatient 2 gm Na diet again with patient and who is a RN.
-Daily weights
-Had paracentesis 5600 on 05/02/24 (5600 removed) no SBP, s/p albumin.
-Has outpatient evaluation withe Dr. Dan for transplant eval in June with elevated AFP with negative MRI.
Total Time Spent with Patient (in minutes): 35
Subjective
Subjective
Date of Service: May 06, 2024
reports some rectal bleeding o/n.
Objective
Data Reviewed
Laboratory Data:
Laboratory Results
05/06/24 05:52
05/06/24 05:52
Laboratory Results
PT 18.3 Sec (11.4-14.6) H 05/03/24 08:24
INR 1.51 05/03/24 08:24
APTT 34.3 Sec (23.4-35.0) 05/02/24 06:47
Magnesium 2.1 mg/dl (1.6-2.3) 05/02/24 06:47
Total Bilirubin 4.1 mg/dl (0.2-1.3) H 05/02/24 06:47
AST 51 U/L (17-59) 05/02/24 06:47
ALT 20 U/L (0-50) 05/02/24 06:47
Alkaline Phosphatase 77 U/L (38-126) 05/02/24 06:47
Lipase 305 U/L (23-300) H 05/02/24 06:47
Vital Signs and I&O:
Vital Signs
Temp Pulse Resp BP Pulse Ox
98.4 F 81 16 123/51 95
05/06/24 07:00 05/06/24 07:53 05/06/24 07:53 05/06/24 07:00 05/06/24 07:53
I&O
05/05/24 05/06/24 05/07/24
06:59 06:59 06:59
Intake Total 1090 / 1090 1080 / 1080
Output Total 875 / 875 1750 / 1750
Balance 215 / 215 -670 / -670
[2024-05-06 14:43] VITALS: BP 128/70
[2024-05-06] MEDS: XANAX 1 MG PO (15:47)
[2024-05-06] MEDS: NULYTELY SOLUTION 2 LITERS PO (17:08)
[2024-05-06] MEDS: ULTRAM 50 MG PO (22:10)
[2024-05-06 22:42] VITALS: BP 138/74
[2024-05-07] VITALS (7 sets, daily range): BP systolic 17–136; BP diastolic 51–78; BMI 27.7
[2024-05-07] MEDS: NULYTELY SOLUTION 2 LITERS PO (05:06)
[2024-05-07] MEDS: ULTRAM 50 MG PO (05:10)
[2024-05-07 06:51] LABS: Hematocrit 27.7 % (39.0-52.0); Hemoglobin 9.2 g/dL (13.0-18.0); Mean Corp Hgb Conc. 33.2 g/dL (33.0-37.0); Mean Corpuscular Hgb 28.6 pg (27.0-31.0); Mean Platelet Volume 9.8 fL (7.4-10.4); Platelet Count 81 10^3/uL (130-400); Red Blood Cell Count 3.22 10^6/uL (4.70-6.10); Red Cell Dist. Width 19.5 % (11.5-14.5)
[2024-05-07 07:15] LABS: Blood Urea Nitrogen 18 mg/dl (9-20); Calcium 8.5 mg/dl (8.4-10.2); Carbon Dioxide 25 mmol/L (22-30); Chloride 101 mmol/L (98-107); Estimated Creatinine Clearance 65 ml/min; Glucose 97 mg/dl (70-99); Potassium 4.2 mmol/L (3.5-5.1); Sodium 134 mmol/L (135-145); eGFR > 60.00
[2024-05-07] MEDS: SYMBICORT 160/4.5 MCG INHALER INH (08:40)
[2024-05-07] MEDS: SPIRIVA RESPIMAT 2.5 MCG INH (08:40)
[2024-05-07] MEDS: XIFAXAN 550 MG PO (09:34)
[2024-05-07] MEDS: LASIX 40 MG PO (09:35)
[2024-05-07] MEDS: PROTONIX 40 MG PO (09:35)
[2024-05-07] MEDS: NICODERM TRANSDERMAL 14 MG TRANSDERM (09:35)
[2024-05-07] MEDS: VITAMIN B1 100 MG PO (09:35)
[2024-05-07] MEDS: ALDACTONE 50 MG PO (09:35)
[2024-05-07] MEDS: MAG-TAB SR 84 MG PO (09:35)
--- NOTE | 2024-05-07 14:46 | W.PN.HOSP.TC ---
Addendum entered and electronically signed by Yobani Sanchez MD 05/08/24 00:14:
Attending Addendum:
I saw and evaluated the patient. I reviewed the resident�s note and agree with findings and plan as documented in the resident�s note. Sub: No further BRBPR wants to go home. seen post colonoscopy No complaints. Full 12 point ROS reviewed and
negative except as documented Exam: Vitals reviewed in chart GEN-nad heart RRR lungs claer abd distended pos fluid wave LE 2+ pitting edema
# Acute blood loss anemia:
- s/p 4units PRBC total
- s/p colon 7/- minor oozing from ovsco clip not concerning - per GI appreciate input
# Hyponatremia-
- mild
- f/u as OP
# Liver Cirrhosis/Ascites
- s/p weekly para x 3 weeks
- last para 05/02- 6650 mls removed
- cont Xifaxan Aldactone and Lasix
- f/u transplant specialist as OP
# Tobaccoa Abuse-
- counseled re quitting
- cont patch
Other problems:
COPD: Cont Breztri/albuterol
CVA with residual right-sided weakness
FULL/SCDs
Dispo DC home d/w GI ok for dc updated
Time spent coordinating care, DC planning, review of DC plan of care with resident, transition of care, review of records, med rec, consults, notes, d/w consultants (GI), nursing, family(), and CM� 36 mins
Original Note:
Today's Communication/Plan
-
Had colonoscopy. Will be discharged.
Assessment / Plan
Assessment / Plan
Gen: NAD, Awake and alert, appears chronically ill.
Eyes: EOMI, PERRLA, no scleral icterus.
Neck: supple.
CV: continues to remain RRR, +S1/S2, no m/r/g.
Resp: continues to remain CTAB, no rales, wheezes, or rhonchi.
Abd: +BS, soft, mod distention with ascites, ND
Skin: No rashes.
Neuro: remains CN 2-12 intact, non-focal.
Psych: Normal mood and affect.
CT brain: Area of right frontal lobe decreased attenuation/encephalomalacia without significant change. No acute intracranial abnormality.
CXR: Clear lungs. No significant change compared to prior study.
Acute blood loss anemia:
-likely due to GIB in the setting of chronic disease. Recent EGD/colonoscopy with polyp removal and clipping at the hepatic flexure (large amount of bleeding at this time) by Dr. Howard. No esophageal/gastric varices at that time. As per discussion
with GI pt likely had oozing from prior clip site.
-Chronic cirrhosis due to alcohol abuse/alcoholic cirrhosis and HCV (treated)
-s/p scheduled paracentesis 05/02/24 for 6500cc, WBC 75 (no SBP)
-Hb 9.2 s/p 4U pRBCs, stable
-was on PPI gtt, now transitioned to PPI BID
-Reported confusion 1 day DIRECT SERVICE PROVIDER may have been hepatic encephalopathy. NH3 normal on admission.
-Colonoscopy was performed 05/07/2024 no bleeding was reported
Other problems:
COPD: Cont Breztri/albuterol
CVA with residual right-sided weakness
Essential hypertension: cont Aldactone/Lasix
Tobacco abuse disorder
FULL/SCDs (pharmacological DVT prophylaxis contraindicated with anemia/GI bleeding/thrombocytopenia)
Anticipated Discharge: Today
Subjective/Interval History
-
Date of Service: May 07, 2024
No acute events overnight
Objective Data
-
Labs:
Laboratory Results
05/07/24
06:31
WBC 7.0
Hgb 9.2 L
Hct 27.7 L
Plt Count 81 L
Sodium 134 L
Potassium 4.2
Chloride 101
Carbon Dioxide 25
BUN 18
Creatinine 1.2
Glucose 97
Calcium 8.5
Vital Signs:
Vital Signs
Temp Pulse Resp BP Pulse Ox
97.3 F 96 17 116/72 98
05/07/24 11:25 05/07/24 11:55 05/07/24 11:55 05/07/24 11:55 05/07/24 11:55
I&O
05/06/24 05/07/24 05/08/24
06:59 06:59 06:59
Intake Total 1080 / 1080 3300 / 3300
Output Total 1750 / 1750 200 / 200
Balance -670 / -670 3100 / 3100
Review of Systems
-
History Source: Patient
Constitutional: Reports No Symptoms
Respiratory: Reports No Symptoms
Abdomen/GI: Reports Abdominal Pain and Bloody Stools
Physical Exam
-
General: Appears Chronically Ill
Cardiac: Regular Rhythm and S1/S2
GI: Distended
Neuro: AO x 3
Data Reviewed
-
Diagnostic Radiology: Discussed with Physician
CT Scan: Discussed with Physician
Labs: Labs Reviewed by me and Discussed with Physician
--- NOTE | 2024-05-07 14:55 | W.DCSUMMARY ---
Addendum entered and electronically signed by Yobani Sanchez MD 05/08/24 00:16:
Read, reviewed, and agree. See same day progress note for additional details.
Maciel Sanchez MD
Original Note:
Documented by User: Car May DO, Resident 05/07/24 18:08
Discharge Summary
Discharge Data
Date of Admission: 05/02/24
Date of Discharge: 05/07/24
-
Pending Results: No
Hospital Course
Discharging Physician : Daniel May
Disposition : Home
Primary care physician : Dr Drake Goss
Principal Discharge diagnosis : GI bleed
Chronic Discharge diagnosis : Cirrhosis hyponatremia, hepatic encephalopathy, portal gastropathy, ascites
Hospital Course : Presented to the ED on 05/02/2024 due to weakness and fatigue as well as chills. We suspected you had a GI bleed due to your hemoglobin being 6.5 and the dark stools mentioned. in the ED you had a CAT scan and an x-ray of your
lungs. You also had a paracentesis which removed 6500 cc of fluid from your abdomen white blood cells were 75 no SBP noted. After paracentesis he received albumin due to large volume, and 3 units of packed red blood cells on 05/03 as well as 1 unit
on 05/05. On 05 07 you had a colonoscopy which showed no bleeding in your GI tract. On discharge your hemoglobin was 9.2. Please follow-up with Dr. Dan for transplant eval in June. Thank you for choosing [facility] for your healthcare needs!
Important imaging findings : 05/02/2024 CT head without contrast, findings include:
Area of right frontal lobe decreased attenuation/encephalomalacia without significant change.
No acute intracranial abnormality.
05/02 CXR 1. Clear lungs.
2. No significant change compared to prior study.
Procedure findings :
05/02/24 Paracentesis with ultrasound guidance 6650 cc of clear yellow ascitic fluid was evacuated. Samples sent for analysis as requested.
05/07/2024 colonoscopy
Impression: - Hemorrhoids found on perianal exam.
- The examined portion of the ileum was normal.
- Foreign body (OVSCO clip) at the hepatic flexure.
- Polypoid lesion at the hepatic flexure.
- Diverticulosis in the sigmoid colon and in the
descending colon.
- Internal hemorrhoids.
- No specimens collected.
Recommendation: - Discharge patient to home.
- Resume regular diet today.
Discharge Plan
-
Patient Disposition: Home (Routine Discharge)
Discharge Diagnosis/Procedures: Acute blood loss anemia, decompensated cirrhosis, acute on chronic GI bleeding
Condition: Good
Diet: 2 Gram Sodium
Activity: No restrictions
Driving Restrictions: As prior to admission
Bathing Restrictions: None
Referrals:
Leticia Maynard NP [Specified Professional Personl] - 05/18/24 11:30 am (Please call to reschedule if you can not keep this appointment. If your insurance requires a referral please contact your primary care physician prior to your appointment. )
Roger Skinner MD [Non-Admitting Privileges] - (follow up with hepatology for underlying cirrhosis management)
Drake Goss DO [Family Provider] - in less than 1 week
Additional Discharge Medication Instructions: Take Xifaxan 550 mg twice daily
Take Spiriva 2 puff daily
Prescriptions:
New
Xifaxan 550 mg Tablet
550 mg PO BID Qty: 60 0RF
Spiriva Respimat 2.5 mcg/actuation Mist
2 puff inhalation R DAILY Qty: 4 0RF
Continued
furosemide [Lasix] 40 mg Tablet
40 mg PO DAILY
lidocaine 4 % adhesive patch,medicated
2 patch topical DAILYPRN PRN (Reason: right shoulder and knee)
albuterol sulfate 90 mcg/actuation HFA aerosol inhaler
2 puff inhalation R Q6HPRN PRN (Reason: shortness of breath or wheezing)
alprazolam 1 mg tablet
1 mg PO BID
thiamine HCl (vitamin B1) 100 mg tablet
100 mg PO DAILY
magnesium oxide 200 mg magnesium Tablet
400 mg PO BID
Breztri Aerosphere 160-9-4.8 mcg/actuation Hfa Aerosol Inhaler
2 inh INHALATION R BID
Patient Comments:
Patient is getting free samples
tramadol 50 mg tablet
50 mg PO BIDPRN PRN (Reason: MODERATE PAINS)
pantoprazole 40 mg tablet,delayed release (DR/EC)
40 mg PO BID
spironolactone 50 mg tablet
50 mg PO DAILY
Discharge Orders:
Discharge Patient (As Directed); Ordered 05/07/24
Ordered By: Car May
Discharge Date and Time
Discharge Date/Time: 05/07/24 17:44
Print Language: LAO

Documented by User: Jeffery Vasquez MD, Resident 05/07/24 17:53
Discharge Summary
Discharge Data
Date of Admission: 05/02/24
Date of Discharge: 05/07/24
Discharge Plan
-
Patient Disposition: Home (Routine Discharge)
Discharge Diagnosis/Procedures: Acute blood loss anemia, decompensated cirrhosis, acute on chronic GI bleeding
Condition: Good
Diet: 2 Gram Sodium
Activity: No restrictions
Driving Restrictions: As prior to admission
Bathing Restrictions: None
Referrals:
Leticia Maynard NP [Specified Professional Personl] - 05/18/24 11:30 am (Please call to reschedule if you can not keep this appointment. If your insurance requires a referral please contact your primary care physician prior to your appointment. )
Roger Skinner MD [Non-Admitting Privileges] - (follow up with hepatology for underlying cirrhosis management)
Drake Goss DO [Family Provider] - in less than 1 week
Additional Discharge Medication Instructions: Take Xifaxan 550 mg twice daily
Take Spiriva 2 puff daily
Prescriptions:
New
Xifaxan 550 mg Tablet
550 mg PO BID Qty: 60 0RF
Spiriva Respimat 2.5 mcg/actuation Mist
2 puff inhalation R DAILY Qty: 4 0RF
Continued
furosemide [Lasix] 40 mg Tablet
40 mg PO DAILY
lidocaine 4 % adhesive patch,medicated
2 patch topical DAILYPRN PRN (Reason: right shoulder and knee)
albuterol sulfate 90 mcg/actuation HFA aerosol inhaler
2 puff inhalation R Q6HPRN PRN (Reason: shortness of breath or wheezing)
alprazolam 1 mg tablet
1 mg PO BID
thiamine HCl (vitamin B1) 100 mg tablet
100 mg PO DAILY
magnesium oxide 200 mg magnesium Tablet
400 mg PO BID
Breztri Aerosphere 160-9-4.8 mcg/actuation Hfa Aerosol Inhaler
2 inh INHALATION R BID
Patient Comments:
Patient is getting free samples
tramadol 50 mg tablet
50 mg PO BIDPRN PRN (Reason: MODERATE PAINS)
pantoprazole 40 mg tablet,delayed release (DR/EC)
40 mg PO BID
spironolactone 50 mg tablet
50 mg PO DAILY
Discharge Orders:
Discharge Patient (As Directed); Ordered 05/07/24
Ordered By: Car May
Discharge Date and Time
Discharge Date/Time: 05/07/24 17:44
Print Language: LAO

Documented by User: Yobani Sanchez MD 05/08/24 00:04
Discharge Summary
Discharge Data
Date of Admission: 05/02/24
Date of Discharge: 05/08/24
Discharge Plan
-
Patient Disposition: Home (Routine Discharge)
Discharge Diagnosis/Procedures: Acute blood loss anemia, decompensated cirrhosis, acute on chronic GI bleeding
Condition: Good
Diet: 2 Gram Sodium
Activity: No restrictions
Driving Restrictions: As prior to admission
Bathing Restrictions: None
Referrals:
Leticia Maynard NP [Specified Professional Personl] - 05/18/24 11:30 am (Please call to reschedule if you can not keep this appointment. If your insurance requires a referral please contact your primary care physician prior to your appointment. )
Roger Skinner MD [Non-Admitting Privileges] - (follow up with hepatology for underlying cirrhosis management)
Drake Goss DO [Family Provider] - in less than 1 week
Additional Discharge Medication Instructions: Take Xifaxan 550 mg twice daily
Take Spiriva 2 puff daily
Prescriptions:
New
Xifaxan 550 mg Tablet
550 mg PO BID Qty: 60 0RF
Spiriva Respimat 2.5 mcg/actuation Mist
2 puff inhalation R DAILY Qty: 4 0RF
Continued
furosemide [Lasix] 40 mg Tablet
40 mg PO DAILY
lidocaine 4 % adhesive patch,medicated
2 patch topical DAILYPRN PRN (Reason: right shoulder and knee)
albuterol sulfate 90 mcg/actuation HFA aerosol inhaler
2 puff inhalation R Q6HPRN PRN (Reason: shortness of breath or wheezing)
alprazolam 1 mg tablet
1 mg PO BID
thiamine HCl (vitamin B1) 100 mg tablet
100 mg PO DAILY
magnesium oxide 200 mg magnesium Tablet
400 mg PO BID
Breztri Aerosphere 160-9-4.8 mcg/actuation Hfa Aerosol Inhaler
2 inh INHALATION R BID
Patient Comments:
Patient is getting free samples
tramadol 50 mg tablet
50 mg PO BIDPRN PRN (Reason: MODERATE PAINS)
pantoprazole 40 mg tablet,delayed release (DR/EC)
40 mg PO BID
spironolactone 50 mg tablet
50 mg PO DAILY
Discharge Orders:
Discharge Patient (As Directed); Ordered 05/07/24
Ordered By: Car May
Discharge Date and Time
Discharge Date/Time: 05/07/24 17:44
Print Language: LAO
--- NOTE | 2024-05-07 14:58 | VNURNOTE ---
[facility] met with patient at bedside. Patient confirmed he would like to resume [facility] services. Patient confirmed he has [facility] contact numbers. Resumption of Care referral placed in [facility].
== END 2024-05-07 17:44 | disposition home or self-care (01) | DRG 920 ==
LOC: 3 WEST ACU 12:29
PROVIDERS: Internal Medicine Gastroenterology; Nurse Practitioner Adult Health; Radiology Vascular & Interventional Radiology; ADMITTING PHYSICIAN Internal Medicine; ATTENDING PHYSICIAN Family Medicine; CONSULT PHYSICIAN Internal Medicine Gastroenterology; EMERGENCY PHYSICIAN Emergency Medicine; FAMILY PHYSICIAN Internal Medicine
PROC: 0W9G3ZZ Drainage of Peritoneal Cavity, Percutaneous Approach (ICD-10-PCS; 2024-05-02)
PROC: 30233N1 Transfusion of Nonautologous Red Blood Cells into Peripheral Vein, Percutaneous Approach (ICD-10-PCS; 2024-05-02)
PROC: 0DJD8ZZ Inspection of Lower Intestinal Tract, Via Natural or Artificial Opening Endoscopic (ICD-10-PCS; 2024-05-07)
DX: K91.840 Postprocedural hemorrhage of a digestive system organ or structure following a digestive system procedure (principal); D62 Acute posthemorrhagic anemia; K92.1 Melena; K76.6 Portal hypertension; E87.1 Hypo-osmolality and hyponatremia; I69.351 Hemiplegia and hemiparesis following cerebral infarction affecting right dominant side; K76.82 Hepatic encephalopathy; D69.6 Thrombocytopenia, unspecified; I10 Essential (primary) hypertension; J44.9 Chronic obstructive pulmonary disease, unspecified; F10.20 Alcohol dependence, uncomplicated; K70.31 Alcoholic cirrhosis of liver with ascites; K31.89 Other diseases of stomach and duodenum; K57.30 Diverticulosis of large intestine without perforation or abscess without bleeding; K64.0 First degree hemorrhoids; K63.5 Polyp of colon; G47.00 Insomnia, unspecified; G89.29 Other chronic pain; Y83.8 Other surgical procedures as the cause of abnormal reaction of the patient, or of later complication, without mention of misadventure at the time of the procedure; Z79.899 Other long term (current) drug therapy; Z87.891 Personal history of nicotine dependence; Z86.19 Personal history of other infectious and parasitic diseases
CPT/HCPCS: 49083; 70450; 71045; 80048; 80053; 81003; 81015; 82042; 82140; 82150; 83605; 83615; 83690; 83735; 84157; 85014; 85018; 85025; 85027; 85610; 85730; 86850; 86870; 86900; 86901; 86920; 86922; 87015; 87040; 87070; 87086; 87205; 89051; 93005; 94640; 96365; 96367; 96376; 99291; P9016; P9047

== ENCOUNTER → 2024-05-11 09:04 | Outpatient (REF) | payer BC, SELFPAY ==
[2024-05-11 11:40] LABS: % Basophils 0.5 % (0-2); % Eosinophils 2.7 % (0-6); % Lymphocytes 21.9 % (20.5-51.1); % Neutrophils 66.9 % (42.2-75.2); Absolute Eosinophils 0.1 10^3/uL (0-0.7); Absolute Lymphocytes 0.9 10^3/uL (1.2-3.4); Absolute Monocytes 0.3 10^3/uL (0.1-0.6); Absolute Neutrophils 2.8 10^3/uL (1.4-6.5); Hematocrit 25.9 % (39.0-52.0); Hemoglobin 8.6 g/dL (13.0-18.0); Mean Corp Hgb Conc. 33.2 g/dL (33.0-37.0); Mean Corpuscular Hgb 28.3 pg (27.0-31.0); Mean Corpuscular Volume 85.2 fL (80.0-94.0); Mean Platelet Volume 9.6 fL (7.4-10.4); Nucleated Red Blood Cells % 0 % (-); Platelet Count 80 10^3/uL (130-400); Red Blood Cell Count 3.04 10^6/uL (4.70-6.10); Red Cell Dist. Width 18.6 % (11.5-14.5); White Blood Cell Count 4.2 10^3/uL (4.8-10.8)
== END ==
LOC: HWLAB 09:04
PROVIDERS: ATTENDING PHYSICIAN Internal Medicine
DX: D64.9 Anemia, unspecified (principal)
CPT/HCPCS: 36415; 85025

== ENCOUNTER → 2024-05-15 08:53 | Outpatient (REF) | payer BC, SELFPAY ==
[2024-05-15 12:00] LABS: % Basophils 0.7 % (0-2); % Eosinophils 3.8 % (0-6); % Immature Granulocytes 0.2 % (0-0.5); % Lymphocytes 25.1 % (20.5-51.1); % Monocytes 7.7 % (1.7-9.3); % Neutrophils 62.5 % (42.2-75.2); Absolute Eosinophils 0.2 10^3/uL (0-0.7); Absolute Lymphocytes 1.1 10^3/uL (1.2-3.4); Absolute Monocytes 0.3 10^3/uL (0.1-0.6); Absolute Neutrophils 2.8 10^3/uL (1.4-6.5); Hematocrit 28.1 % (39.0-52.0); Hemoglobin 9.4 g/dL (13.0-18.0); Mean Corp Hgb Conc. 33.5 g/dL (33.0-37.0); Mean Corpuscular Hgb 28.7 pg (27.0-31.0); Mean Corpuscular Volume 85.7 fL (80.0-94.0); Mean Platelet Volume 10.8 fL (7.4-10.4); Nucleated Red Blood Cells % 0 % (-); Platelet Count 84 10^3/uL (130-400); Red Blood Cell Count 3.28 10^6/uL (4.70-6.10); Red Cell Dist. Width 18.6 % (11.5-14.5); White Blood Cell Count 4.4 10^3/uL (4.8-10.8)
[2024-05-15 12:46] LABS: ALT (SGPT) 34 U/L (0-50); AST (SGOT) 82 U/L (17-59); Alkaline Phosphatase 96 U/L (38-126); Blood Urea Nitrogen 14 mg/dl (9-20); Calcium 8.7 mg/dl (8.4-10.2); Carbon Dioxide 27 mmol/L (22-30); Chloride 102 mmol/L (98-107); Glucose 87 mg/dl (70-99); Potassium 4.2 mmol/L (3.5-5.1); Sodium 134 mmol/L (135-145); Total Bilirubin 2.7 mg/dl (0.2-1.3); Total Protein 5.3 g/dl (6.3-8.2); eGFR > 60.00
== END ==
LOC: HWLAB 08:53
PROVIDERS: ATTENDING PHYSICIAN Internal Medicine
DX: E87.1 Hypo-osmolality and hyponatremia (principal)
CPT/HCPCS: 36415; 80053; 85025

== ENCOUNTER 2024-05-29 09:42 | Outpatient (RCR) | payer BC, SELFPAY ==
[2024-05-29] MEDS: FLEXBUMIN 50 IV (10:15)
[2024-05-29 10:18] VITALS: BP 132/57
[2024-05-29] MEDS: FLEXBUMIN 100 IV (11:02)
[2024-05-29 11:03] VITALS: BP 125/55
[2024-05-29 12:30] VITALS: BP 130/60
== END 2024-06-06 15:30 | disposition home or self-care (01) ==
LOC: OID 09:42
PROVIDERS: ATTENDING PHYSICIAN Nurse Practitioner Adult Health; FAMILY PHYSICIAN Internal Medicine
DX: K70.31 Alcoholic cirrhosis of liver with ascites (principal); B18.2 Chronic viral hepatitis C; D64.9 Anemia, unspecified; D69.6 Thrombocytopenia, unspecified
CPT/HCPCS: 49083; 87015; 87070; 87205; 89051; 96365; 96366; P9047

== ENCOUNTER → 2024-06-08 06:51 | Outpatient (REF) | payer BC, SELFPAY ==
[2024-06-08 07:25] VITALS: BP 130/70; BP_SYST 107
[2024-06-08 08:57] LABS: Body Fluid Polymorphonuclear 9.8 %; Body Fluid WBC 92 /CUMM
[2024-06-08 08:58] LABS: Body Fluid Mononuclear 90.2 %
[2024-06-08 09:02] LABS: Body Fluid Second Tech EM
== END ==
LOC: RADI 06:51
PROVIDERS: ATTENDING PHYSICIAN Nurse Practitioner Adult Health
DX: R18.8 Other ascites (principal)
CPT/HCPCS: 49083; 87015; 87070; 87205; 89051

== ENCOUNTER → 2024-06-11 06:51 | Outpatient (REF) | payer BC, SELFPAY ==
[2024-06-11 10:04] LABS: Hematocrit 21.4 % (39.0-52.0); Mean Corp Hgb Conc. 32.7 g/dL (33.0-37.0); Mean Corpuscular Hgb 27.2 pg (27.0-31.0); Mean Corpuscular Volume 83.3 fL (80.0-94.0); Mean Platelet Volume 10.2 fL (7.4-10.4); Platelet Count 121 10^3/uL (130-400); Red Blood Cell Count 2.57 10^6/uL (4.70-6.10); White Blood Cell Count 5.2 10^3/uL (4.8-10.8)
[2024-06-11 10:27] LABS: ALT (SGPT) 21 U/L (0-50); AST (SGOT) 49 U/L (17-59); Alkaline Phosphatase 108 U/L (38-126); Blood Urea Nitrogen 23 mg/dl (9-20); Calcium 8.9 mg/dl (8.4-10.2); Carbon Dioxide 28 mmol/L (22-30); Chloride 99 mmol/L (98-107); Direct Bilirubin 0.7 mg/dl (0.0-0.4); Glucose 109 mg/dl (70-99); Potassium 4.2 mmol/L (3.5-5.1); Sodium 130 mmol/L (135-145); Total Bilirubin 2.2 mg/dl (0.2-1.3); Total Protein 5.2 g/dl (6.3-8.2); eGFR > 60.00
[2024-06-11 10:37] LABS: INR 1.34; PT 16.4 Sec (11.4-14.6)
== END ==
LOC: HWLAB 06:51
PROVIDERS: ATTENDING PHYSICIAN Internal Medicine Transplant Hepatology; FAMILY PHYSICIAN Internal Medicine; OTHER PHYSICIAN Internal Medicine Critical Care Medicine; REFERRING PHYSICIAN Nurse Practitioner Family
DX: K70.31 Alcoholic cirrhosis of liver with ascites (principal)
CPT/HCPCS: 36415; 80053; 82248; 85027; 85610

== ENCOUNTER 2024-06-13 21:32 | Inpatient (IN) | payer BC, SELFPAY ==
[2024-06-13] VITALS (7 sets, daily range): BP systolic 121–137; BP diastolic 66–72; BMI 28.8; BMI 27.2
--- NOTE | 2024-06-13 19:35 | ED.GENMED ---
History of Present Illness
General
Chief Complaint: Abnormal Lab Value
Source: patient and spouse
Exam Limitations: none
Time Seen by Provider: 06/13/24 19:04
History of Present Illness
History of Present Illness:
This is a 59 year old male that comes in with c/o abnormal labs. States that he had a Paracentesis on Tuesday. Then on Tuesday he was not feeling well so he left his Grandson's Christening. States that he went home and laid down. States that today
they ordered repeat labs as his states that he was as white as a sheet on Tuesday and today his color is starting to come back. States that his Hgb was 6 so he was sent in. States that he had a low grade fever of 99.0 and occasionally gets
chills. Denies any chest pain, SOB, abd pain, nausea, vomiting, diarrhea, headache, dizziness, urinary burning.
Past History
Past History
ED Past Medical History: COPD, CVA ( X 2 on both sided. With right sided weakness and left leg weakness), HTN, Psychiatric (Anxiety) and Other (Chronic alcohol use, alcoholic cirrhosis, Back pain, Meningitis, PNA, Hep C, UTI, GI bleeding,
Hemorrhoids, UTI); Negative Asthma, Hypercholesterolemia or NIDDM
ED Past Surgical History: Other (Right hernia repair, Spinal fluid leak repair, Paracentesis)
Social History
Tobacco: Smoker
Alcohol: Former
Drug: None
Personal:
Living: with family
Employment: Employed
Family History
Family History: Diabetes and Other
Review of Systems
Review of Systems
All Other Systems: ROS reviewed and negative except as documented in HPI and ROS
Constitutional: Reports fever (Low grade 99) and chills (occasional)
EENT: Reports no symptoms
Respiratory: Reports no symptoms; Denies cough or trouble breathing
Cardiac: Reports no symptoms; Denies chest pain
ABD/GI: Reports no symptoms; Denies abdominal pain, nausea, vomiting or diarrhea
: Reports no symptoms; Denies dysuria, frequency or urgency
Musculoskeletal: Reports no symptoms
Skin: Reports no symptoms
Neurological: Reports no symptoms; Denies dizzy or headache
Psychiatric: Reports no symptoms
Phy Exam
General Physical Exam
General Presentation: no apparent distress
General age: appears stated age
General Skin: warm and dry
General Habitus: elderly
General Mental: alert
General Hydration: dry mucous membranes
ENT Exam
ENT Exam: TM's normal, pharynx normal and neck supple
Eye Exam
Eye Exam: EOMI
Cardiovascular Exam
Cardiovascular Exam: regular rate/rhythm, normal peripheral pulses and other (Murmur)
Pulmonary Exam
Pulmonary Exam: no respiratory distress, chest non tender, no rhonchi, no wheezing, no cough and other (Very fine crackles right base)
Gastrointestinal Exam
Gastrointestinal Exam: normal bowel sounds, non tender, soft, no organomegaly, no pulsatile mass, ascites and other (Rectal exam brown stool hem negative)
Musculoskeletal Exam
Musculoskeletal Exam: edema (R>L +2 pitting edema feet to lower legs)
Skin Exam
Skin Exam: normal color, warm/dry, no rash and no petechia
Psychiatric Exam
Psychiatric Exam: normal mood/affect
Course
Orders/Labs/Results
Orders:
Orders
06/13/24 19:31
* Blood Bank Products Urgent
Blood Bank Products: *Packed RBC Leuko(PRBC's)
Quantity: 2
Transfuse Today: Yes
Reason: Anemia
06/13/24 19:34
IV Insert/Care/Rem.- Treatment PRN
06/13/24 19:48
Electrocardiogram (*1) Urgent
Reason for Study: Tachycardia
EKG- Treatment ONCE
06/13/24 19:58
Type And Crossmatch Urgent
Labs done as out patient today at 15:34 WBC 7.0, H/H 6.8/21.6, Plt 123, NA 130, Potassium 4.2, chloride 99, C02 28, BUN 23, Cr 1.0, Glucose 109, Calcium 8.9, Total mohini 2.2, Direct mohini 0.7, AST 49, ALT 21, Alk phos 108, Total protein 5.2, Albumin 3.0
Vital Signs
Initial and Last Documented VS:
Initial Vital Signs
Temp Pulse Resp BP Pulse Ox
99.8 F 105 24 137/68 99
06/13/24 18:51 06/13/24 18:51 06/13/24 18:51 06/13/24 18:51 06/13/24 18:51
Last Documented Vital Signs
Temp Pulse Resp BP Pulse Ox
99.8 F 101 17 131/67 98
06/13/24 18:51 06/13/24 19:30 06/13/24 19:30 06/13/24 19:30 06/13/24 19:30
MDM/Problems Addressed
Differential Diagnosis Includes:
Anemia, Gi bleeding,
MDM/Problems Addressed:
This is a 59 year old male that comes in with c/o abnormal labs. States that he was called and told that his Hgb ws 6.
Will admit patient and given PRBC's. Will order 2 units of blood and admit patient. hospitalist notified
Chronic conditions affecting care:
Cirrhosis of the liver, Gi bleeding in past
Acute Exacerbation and/or Progression of Chronic Illness:
Cirrhosis of the liver,
*Pulse Oximetry
Patient hypoxic: no
*[employer] Interpretation
Rate: tachycardiac
Heart Rate: 101
Rhythm: sinus tachycardia
*Critical Care Note
Total Time (30-74mins, 75-104mins- exclusive of procedures): Not Applicable
ED Attending Note
-
Portions of this chart may have been created with voice recognition software.� Occasional wrong word or��sound alike� substitutions may have occurred due to the inherent limitations of voice recognition software.
Discharge Plan
Departure
Patient Disposition: Admit
Date of Disposition: 06/13/24
Time of Disposition: 19:46
Admit to: Med/Surg
Presentation/result/management discussed w/ accepting MD/DO: Hospitalist
Patient with high blood pressure during this ER visit?: Yes
Condition: Good
Covid-19: Not Applicable
Discharge Problem:
Low hemoglobin
Prescriptions:
No Action
furosemide [Lasix] 40 mg Tablet
40 mg PO DAILY
lidocaine 4 % adhesive patch,medicated
2 patch topical DAILYPRN PRN (Reason: right shoulder and knee)
albuterol sulfate 90 mcg/actuation HFA aerosol inhaler
2 puff inhalation R Q6HPRN PRN (Reason: shortness of breath or wheezing)
alprazolam 1 mg tablet
1 mg PO BID
Patient Comments:
06/13/2024: last filled 06/12/24, 180 tabs for 90 days from [facility]
thiamine HCl (vitamin B1) 100 mg tablet
100 mg PO DAILY
magnesium oxide 200 mg magnesium Tablet
400 mg PO BID
Breztri Aerosphere 160-9-4.8 mcg/actuation Hfa Aerosol Inhaler
2 inh INHALATION R BID
Patient Comments:
Patient is getting free samples
tramadol 50 mg tablet
50 mg PO BIDPRN PRN (Reason: MODERATE PAINS)
Patient Comments:
06/13/2024: last filled 06/12/24, 180 tabs for 90 days from [facility]
pantoprazole 40 mg tablet,delayed release (DR/EC)
40 mg PO BID
spironolactone 50 mg tablet
50 mg PO DAILY
lactulose [Constulose] 10 gram/15 mL Solution
10 g PO DAILY
nicotine patch
1 patch transdermal DAILY
Patient Comments:
06/13/2024: Unknown strength, pt stopped about 3 days ago due to starting smoking again.
Interventions
Interventions:
*Risk Screen - Suicide Last Done: 06/13/24 18:51
*General Assessment Last Done: 06/13/24 18:51
*Neglect/Abuse Screening Last Done: 06/13/24 18:51
ED- Fall Risk Assessment Last Done: 06/13/24 18:51
*ED COVID-19 Vaccine History Last Done: 06/13/24 18:51
Discharge Date and Time
Print Language: CROATIAN
--- NOTE | 2024-06-13 20:36 | W.PN.UPDATE ---
Update Note
Progress Note Update
This note serves as an addendum to the H&P by lead miner blasting [place]
HPI
58M Smoker HX Cirrhosis due to alcohol abuse and hepatitis C (treated) chronic anemia , COPD, CVA with residual right-sided weakness, Essential HTN, Tobacco abuse disorder , regular paracenteis for ascites see at ER for abnormal labs:
- son noted patient is fellimg unwell
- last paracentesis on 06/08 - remoed 4.8 L ascites
- OP labs shows Hgb 6.0
- noted low grade fever
ROS
- occasional chills.
- denies any chest pain, SOB, abd pain, nausea, vomiting, diarrhea, headache, dizziness, urinary burning.
Reviewed VS: Afebrile HR 110 BP 130/65
PE
Gen: NAD
HEENT: pale conjunctiva
Neck: supple , no JVD
Lungs: CTA
Cor: RRR S1 S2
Abdomen: soft distended non tender abdomen. NRT
BHARTI by ER MEDICAL OFFICE COORDINATOR: HoB NEG brown stool
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
MS: R>L +2 pitting edema feet to lower leg
Psych: calm
Data
WCC 7
Hgb 6.8 - was 7.0 on 06/11 - baseline mid 8s to mid 9s
Plt 123 - baseline is 80s - 120s
INR 1.35 - baseline mid 1s
Na 130
Cr 1.0
eGFR > 60
TB 2.2 DB 0.7
Alb 3.0
06/08/24 US guided paracentesis: 4800c clear yellow ascitic fluid
05/02/24 US guidance paracentesis: 6650 cc of clear yellow ascitic fluid was evacuated.
05/07/2024 Recent EGD and colonoscopy
- No esophageal/gastric varices at that time. As per discussion with GI pt likely had oozing from prior clip site.
- Hemorrhoids found on perianal exam.
- The examined portion of the ileum was normal.
- Foreign body (OVSC[employer] clip) at the hepatic flexure.
- Polypoid lesion at the hepatic flexure.
- Diverticulosis in the sigmoid colon and in the descending colon.
- Internal hemorrhoids.
- No specimens collected.
Last hospitalist admission: 05/02/24 05/07/24
Primary DX: Cirrhosis hyponatremia, hepatic encephalopathy, portal gastropathy, ascites
ASSESSMENT & PLAN
Hemodynamically stable
Low grade fever but non tender abdomen
Worsening anemia of chr dz vs intermittent GIB : hemodynamically stable
So far HoB NEG brown stool
Underlying Cirrhosis with portal HTN and ascites
NEG esophageal/gastric varices by recent EGD
HX HCV (treated)
HX synthetic dysfunction with coagulopathy, hypoalbuminemia
HX hepatic encephalopathy
HX pancytopenia
- T & S
- blood consented
- 1 PRBC Blood Tx and f/u Hgb in AM
- cont PO PPI BID
- cont Aldactone/Lasix
- IR consult for Dx-tic and Rx-tic paracentesis till then hold off ABx
- GI consult and emetically clear diet in case GI plan fr endoscopy
Other problems:
COPD: Cont Breztri/albuterol
CVA with residual right-sided weakness
Essential hypertension: cont Aldactone/Lasix
Tobacco abuse disorder
DVT Px: SCD
Code: Full
IP MS
--- NOTE | 2024-06-13 20:54 | HPS.HSE ---
Family Physician
-
Family Physician: Drake Goss
Chief Complaint
-
Low Hemoglobin
History of Present Illness
Patient is a 59 y/o male past medical cirrhosis and recurrent GI bleed who presents with low hemoglobin. Patient reports on Tuesday, 3 days ago, he felt very tired and weak. Family noted that looked very pale. Patient had blood work completed on
Tuesday, and then again today which revealed his hemoglobin had trended down from from 9 to 7, and he was instructed to go to the emergency department for evaluation. He denied any abdominal pain, nausea, vomiting, hematemesis, melena or
hematochezia.
Medical History
Past Medical History
Past Medical History: Reports Other
Additional Past Medical History:
Multiple Lacunar Infarcts
COPD
Alcohol Use Disorder
Alcoholic Cirrhosis
Hepatitis C s/p Treatment
Hypertension
Insomnia
Chronic Right Upper Ext Pain
Past Surgical History: Reports Other
Additional Past Surgical History:
Paracentesis
Social History
Tobacco: Former Smoker
Alcohol: Former
Family History
Family History: Not pertinent
Allergies / Home Medications
Allergies reflects when Allergies were last updated in [facility].
Home Medications with original date entered in [facility]
Allergy/Medication List:
Allergies
Allergy/AdvReac Type Severity Reaction Status Date / Time
No Known Allergies Allergy Verified 05/29/24 11:21
Home Medications
albuterol sulfate 90 mcg/actuation aerosol inhaler 2 puff inhalation R Q6HPRN PRN shortness of breath or wheezing 03/13/24
alprazolam 1 mg tablet 1 mg PO BID anxiety 03/13/24
furosemide 40 mg tablet (Lasix) 40 mg PO DAILY Fluid Retention/Swelling 03/13/24
lidocaine 4 % topical patch 2 patch topical DAILYPRN PRN right shoulder and knee 03/13/24
thiamine HCl (vitamin B1) 100 mg tablet 100 mg PO DAILY Supplement 03/13/24
budesonide 160 mcg-glycopyr 9 mcg-formot 4.8 mcg/actuation HFA inhaler (Breztri Aerosphere) 2 inh inhalation R BID Lung/Breathing Issues 04/11/24
magnesium oxide 400 mg PO BID Supplement 04/11/24
pantoprazole 40 mg tablet,delayed release 40 mg PO BID Gastrointestinal Issue 04/17/24
spironolactone 50 mg tablet 50 mg PO DAILY Liver Issues 04/17/24
tramadol 50 mg tablet 50 mg PO BIDPRN PRN MODERATE PAINS 04/17/24
lactulose 10 gram/15 mL oral solution (Constulose) 10 g PO DAILY 05/29/24
nicotine 1 patch transdermal DAILY 06/13/24
Review of Systems
-
A 12 point ROS was completed and negative except as noted: Yes
Constitutional: Denies Fever (Noted to have temp 99F in ED) or Chills
Respiratory: Denies Cough or Trouble Breathing
Cardiac: Denies Chest Pain or Palpitations
Abdomen/GI: Denies Abdominal Pain, Nausea, Vomiting, Bloody Stools or Black Stools
Physical Exam
Vital Signs
Vital Signs
Temp Pulse Resp BP Pulse Ox
99.8 F 101 17 131/67 98
06/13/24 18:51 06/13/24 19:30 06/13/24 19:30 06/13/24 19:30 06/13/24 19:30
Physical Exam
General: Comfortable and Conversant
HEENT: Anicteric, Moist mucous membranes and Oxygen (Nasal Cannula)
Respiratory: Clear and Non Labored Respirations
Cardiac: S1/S2 and Regular Rhythm
GI: Soft, Non Tender and Distended (Positive fluid wave)
Rectal: Hem Negative (Per ED provider)
Musculoskeletal: No Clubbing, No Cyanosis and Other (+1 edema)
Skin: Warm and Dry
Neuro: Awake, Alert, Oriented and Nonfocal/grossly intact
Psych: Calm
Data Reviewed
-
Lab Data: Labs Reviewed by me
Old Records: Reviewed
Impression/Plan
-
Acute on Chronic Anemia, suspect related to GI loss despite heme-negative stool in ED given known hypertensive gastropathy on recent EGD
-Transfuse 1 unit PRBCs
-Check iron studies
-Continue Protonix BID
-Consult GI
Recurrent Ascites
-Consult IR for diagnostic and therapeutic paracentesis to evaluate for possible SBP in setting of low grade temperature in ED
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
-Continue Lasix and Aldactone
COPD, no acute exacerbation
-Continue Breztri
DVT proph: SCDs
Code Status: Full Code
--- NOTE | 2024-06-13 21:51 | ED.GENMED ---
History of Present Illness
General
Chief Complaint: Abnormal Lab Value
Time Seen by Provider: 06/13/24 19:04
Past History
Past History
ED Past Medical History: COPD, CVA ( X 2 on both sided. With right sided weakness and left leg weakness), HTN, Psychiatric (Anxiety) and Other (Chronic alcohol use, alcoholic cirrhosis, Back pain, Meningitis, PNA, Hep C, UTI, GI bleeding,
Hemorrhoids, UTI); Negative Asthma, Hypercholesterolemia or NIDDM
ED Past Surgical History: Other (Right hernia repair, Spinal fluid leak repair, Paracentesis)
Social History
Tobacco: Smoker
Alcohol: Former
Drug: None
Personal:
Living: with family
Employment: Employed
Family History
Family History: Diabetes and Other
Course
Orders/Labs/Results
Orders:
Orders
06/13/24 19:31
* Blood Bank Products Urgent
Blood Bank Products: *Packed RBC Leuko(PRBC's)
Quantity: 1
Transfuse Today: Yes
Reason: Anemia
06/13/24 19:34
IV Insert/Care/Rem.- Treatment PRN
06/13/24 19:48
Electrocardiogram (*1) Urgent
Reason for Study: Tachycardia
EKG- Treatment ONCE
06/13/24 19:58
Type And Crossmatch Urgent
06/13/24 21:03
Admit/Transfer Patient As Directed
Co-Sign Provider:
Level of Care: Inpatient admission
Assign to:: Medical/Surgical
Physician / Group: Htay
Diagnosis: Anemia, Ascites
Reason for Hospitalization: blood transfusion, IR consult
Expected length of stay greater than two midnights?: Yes
ELOS- Estimated Length of Stay in days: 3
I certify the patient meets the requirements for IP care: Yes
06/13/24 21:04
PRN Pain Medication Management As Directed
May give lesser potent ordered pain med per pt: Yes
preference::
Protocol:: Medication orders for pain may be administered in a
manner that supports deferring to patient preference
when the pt is:
- Requesting an ordered lesser potent pain medication.
Least to most potent pain medications are defined
as: acetaminophen < NSAID < tramadol < opioids
(morphine, oxycodone, hydromorphone).
- Requesting a lesser dose of the same medication IF
ORDERED.
- Requesting a less intrusive route of administration
if both routes are prescribed by the provider (PO <
IV).
06/13/24 21:06
Code Status As Directed
Resuscitation Status: Full Code
06/13/24 21:15
Add On- LAB Urgent
Tests Added?: iron, ferritin, tibc, folate, vit b12
Abnormal Lab Results
06/13/24
19:58
Crossmatch IS Only See Detail
MTS Gel Crossmatch See Detail
Vital Signs
Initial and Last Documented VS:
Initial Vital Signs
Temp Pulse Resp BP Pulse Ox
99.8 F 105 24 137/68 99
06/13/24 18:51 06/13/24 18:51 06/13/24 18:51 06/13/24 18:51 06/13/24 18:51
Last Documented Vital Signs
Temp Pulse Resp BP Pulse Ox
99.8 F 101 20 129/72 98
06/13/24 18:51 06/13/24 20:55 06/13/24 20:55 06/13/24 20:55 06/13/24 20:55
*EKG
Interpreted by ED Provider?: Yes
Heart Rate: 103
Rate: tachycardiac
Rhythm: sinus
[place]: normal axis
Interval: normal interval
QRS Pattern: normal QRS
Ischemia: no ischemia
ED Attending Note
-
Portions of this chart may have been created with voice recognition software.� Occasional wrong word or��sound alike� substitutions may have occurred due to the inherent limitations of voice recognition software.
Discharge Plan
Departure
Patient Disposition: Admit
Date of Disposition: 06/13/24
Time of Disposition: 19:46
Admit to: Med/Surg
Presentation/result/management discussed w/ accepting MD/DO: Hospitalist
Patient with high blood pressure during this ER visit?: Yes
Condition: Good
Covid-19: Not Applicable
Discharge Problem:
Low hemoglobin
Interventions
Interventions:
*Risk Screen - Suicide Last Done: 06/13/24 18:51
*General Assessment Last Done: 06/13/24 18:51
*Neglect/Abuse Screening Last Done: 06/13/24 18:51
ED- Fall Risk Assessment Last Done: 06/13/24 18:51
*ED COVID-19 Vaccine History Last Done: 06/13/24 18:51
[2024-06-13] MEDS: XANAX 1 MG PO (23:42)
[2024-06-14] VITALS (13 sets, daily range): BP systolic 89–133; BP diastolic 52–68; BMI 27.3
[2024-06-14 07:35] LABS: Ammonia 44 umol/L (9-30)
[2024-06-14 07:37] LABS: Hematocrit 19.2 % (39.0-52.0); Hemoglobin 6.4 g/dL (13.0-18.0); Mean Corp Hgb Conc. 33.3 g/dL (33.0-37.0); Mean Corpuscular Hgb 27.2 pg (27.0-31.0); Mean Corpuscular Volume 81.7 fL (80.0-94.0); Mean Platelet Volume 9.7 fL (7.4-10.4); Platelet Count 88 10^3/uL (130-400); Red Blood Cell Count 2.35 10^6/uL (4.70-6.10); Red Cell Dist. Width 16.6 % (11.5-14.5); White Blood Cell Count 4.3 10^3/uL (4.8-10.8)
--- NOTE | 2024-06-14 07:50 | W.PN.HOSP.TC ---
Today's Communication/Plan
-
see bold
Assessment / Plan
Assessment / Plan
Gen: NAD, Awake and alert, appears chronically ill.
Eyes: EOMI, PERRLA, mild scleral icterus.
Neck: supple.
CV: RRR, +S1/S2, no m/r/g.
Resp: CTAB, no rales, wheezes, or rhonchi.
Abd: +BS, soft, NT, mod distention with ascites
Skin: No rashes.
Neuro: CN 2-12 intact, non-focal.
Psych: Normal mood and affect.
Acute on Chronic Anemia:
-suspect related to GI loss despite heme-negative stool in ED given known hypertensive gastropathy on recent EGD
-Transfuse another 2U pRBCs
-Check iron studies
-Continue Protonix BID
-Consult GI
Recurrent Ascites
-Consult IR for diagnostic and therapeutic paracentesis to evaluate for possible SBP in setting of low grade temperature in ED
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
-Continue Lasix and Aldactone
-increase Lactulose to 20g BID
COPD, no acute exacerbation
-Continue Breztri
FULL/SCDs
Total time spent on today's encounter was 50 minutes which included time spent in counseling the patient/family regarding diagnosis and treatment plan as listed above, goals of care, and symptom management. Case was discussed with nursing staff,
specialists, and care coordinators/case management. All labs and imaging personally reviewed by me. Remainder the time spent in detailed review of previous records, lab data, imaging, and other medical provider documentation.
Anticipated Discharge: 24 - 48 hours
Subjective/Interval History
-
Date of Service: June 14, 2024
Objective Data
-
Labs:
Laboratory Results
06/14/24
07:13
WBC 4.3 L
Hgb 6.4 L*
Hct 19.2 L*
Plt Count 88 L D
Sodium Pending
Potassium Pending
Chloride Pending
Carbon Dioxide Pending
BUN Pending
Creatinine Pending
Glucose Pending
Calcium Pending
Total Bilirubin Pending
AST Pending
ALT Pending
Alkaline Phosphatase Pending
Vital Signs:
Vital Signs
Temp Pulse Resp BP Pulse Ox
98.2 F 99 18 114/62 98
06/14/24 01:43 06/14/24 01:43 06/14/24 01:43 06/14/24 01:43 06/14/24 01:43
I&O
06/13/24 06/14/24 06/15/24
06:59 06:59 06:59
Intake Total 250 / 250
Output Total 625 / 625
Balance -375 / -375
[2024-06-14 08:12] LABS: ALT (SGPT) 20 U/L (0-50); AST (SGOT) 44 U/L (17-59); Albumin 2.5 g/dl (3.5-5.0); Alkaline Phosphatase 94 U/L (38-126); Blood Urea Nitrogen 16 mg/dl (9-20); Carbon Dioxide 27 mmol/L (22-30); Chloride 98 mmol/L (98-107); Estimated Creatinine Clearance 100 ml/min; Glucose 97 mg/dl (70-99); Magnesium 2.1 mg/dl (1.6-2.3); Potassium 4.1 mmol/L (3.5-5.1); Sodium 127 mmol/L (135-145); Total Bilirubin 2.6 mg/dl (0.2-1.3); Total Protein 4.5 g/dl (6.3-8.2); eGFR > 60.00
[2024-06-14] MEDS: VITAMIN B1 100 MG PO (08:23)
[2024-06-14] MEDS: PROTONIX 40 MG PO ×2 (08:23→20:05)
[2024-06-14] MEDS: XANAX 1 MG PO ×2 (08:24→20:06)
[2024-06-14] MEDS: ALDACTONE 50 MG PO (08:24)
[2024-06-14] MEDS: MAG-TAB SR 84 MG PO ×2 (08:24→20:05)
[2024-06-14] MEDS: DUPHALAC/CHRONULAC 10 GRAMS PO (08:24)
[2024-06-14] MEDS: LASIX 40 MG PO (08:24)
[2024-06-14] MEDS: ULTRAM 50 MG PO (10:56)
[2024-06-14 10:58] LABS: Body Fluid Albumin < 1.0 g/dl; Body Fluid Amylase 33 U/L; Body Fluid LDH < 90 U/L; Body Fluid Protein < 2.0 g/dl
[2024-06-14] MEDS: FLEXBUMIN 50 IV (11:25)
[2024-06-14 12:07] LABS: Body Fluid WBC 125 /CUMM
[2024-06-14 12:10] LABS: Body Fluid Second Tech ASW
[2024-06-14] MEDS: NICODERM TRANSDERMAL 14 MG TRANSDERM (12:20)
[2024-06-14] MEDS: FLEXBUMIN 100 IV (12:22)
--- NOTE | 2024-06-14 13:35 | CON.GI ---
Addendum entered and electronically signed by Olena Floyd MD 06/14/24 19:43:
I saw and examined the patient.
The CARDIOLOGY MANAGER or PA's note was reviewed and I agree with the note.
Comment: 59-year-old male with history of hepatitis C status posttreatment with Epclusa, alcohol abuse in the past, liver disease with decompensation, ascites requiring paracentesis and diuretics, history of hepatic encephalopathy in the past, came
into the emergency room after outpatient labs showed drop in hemoglobin to 6.4. Patient denies any complaints from a GI standpoint. No abdominal pain, nausea, vomiting. No trouble swallowing. No constipation, diarrhea, blood or black stool.
Heme-negative stool noted today.
Had para 8/2 without any evidence of SBP.
Previous history of anemia, upper endoscopy in April 2024-portal hypertensive gastropathy without varices, colonoscopy with large benign polyp removed from hepatic flexure and descending colon tubular adenoma removed. Had slow ooze from the hepatic
flexure polyp but repeat colonoscopy in early May without any bleeding noted.
He follows up with Dr. Dan at [facility] is not evaluated for liver transplant.
Baseline hemoglobin between 7-8 but today noted to be 6.4. No NSAID use. No alcohol use. LFTs in normal range, albumin 2.5.
Outpatient medications include lactulose 10 g daily, Lasix 40 mg daily and Aldactone 50 mg daily apart from pantoprazole 40 mg twice a day.
-Anemia without any occult or overt GI bleeding
Previous EGD without any evidence of varices except portal gastropathy, colonoscopy with diverticulosis and benign polyps removed.
Continue PPI and monitor H&H. Transfuse if hemoglobin less than 7.5.
Hemoglobin continues to drop, consider noncontrast abdominal CT/hematology consult
-Decompensated liver disease with ascites
Continue diuretics, lactulose
2 g sodium diet and fluid restriction.
-Previous elevated alpha-fetoprotein but negative MRI
Will follow
Original Note:
Consultation
-
Date/Time Consultation Requested: 06/13/242
Date/Time Consultation Performed: 06/14/24 1145
Requesting Provider: ROSIE De La Torre
Performing Provider: Dr. Floyd/MARCIA Campo
Reason for Consultation: anemia
Medical History
Chief Complaint / HPI
Chief Complaint: low hgb
History of Present Illness:
59-year-old male with a past medical history significant for liver cirrhosis with decompensation- ascites, mild HE, hx GI bleed portal gastropathy and evidence of gastric and lower esophageal varices on recent MRI with history of prior alcohol
abuse (last use 4 months ago), elevated AFP of 30 with neg MRI in early April, and hepatitis C status-post treatment (took 8 out of 12 weeks Epclusa but did eradication last year with neg RNA in February), Klebsiella pneumonia, hypertension,
thrombocytopenia, GERD, tobacco use, smoking 1/2 ppd, anxiety, with recurrent admission for drop in Hgb. He has had several recent admissions. In March noted with ascites with neg US doppler for PVT and diuretics were increased. He was then
admitted on Apr with anemia. GI procedures for BERRY with EGD 04/13 with no varicies, portal HTN gastropathy, and colonoscopy with 15-18 mm polyp HP with. 4 mm polyp DC with clip placed. Pt has required 9 units PRBC's and 1 FFP since 04/11. Pt also had
other testing with bili elevation with LDH 261, haptoglobin <10, retic count 3.9. Repeat Colonoscopy performed on 05/07/24 with hemorrhoids, OVSCO clip at the hepatic flexure, polypoid lesion at the hepatic lesion, diverticulosis in sigmoid and
descending colon. The patient had outpatient labs and was instructed to go to the ER by Dr. Dan who he follows at [facility] and where is being evaluated for Liver Transplant. His Hgb as an outpatient was 7.0 and when he came to the
ER it was 6.8. This was repeated this am and was 6.4. He was also noted to have a low grade fever with his weight increasing to '190' as he states that he ate out at [email or web address] since he was celebrating that his daughter and granddaughter
were in town. His stool was tested in the ER and was brown and was negative for occult blood. He denies any recent bleeding, including epistaxis. He Had a very low-grade fever of 99.8. Patient did not feel this. He denies any chills, nausea,
vomiting, melena, hematochezia, dysphagia or odynophagia. He denies any early satiety or unintentional weight loss. He is on lactulose and is taking it 1-2 times a day depending on how many bowel movements he has. He denies any signs of bleeding.
He is watching his daily weights. He is watching his daily sodium intake.
Past Medical History
Past Medical History: COPD, CVA, HTN and Other (EtOH abuse, hepatitis C status posttreatment and eradication, decompensated alcoholic liver cirrhosis with ascites, chronic pain, current cigarette smoker, chronic thrombocytopenia, chronic
hyponatremia, insomnia)
Past Surgical History: Other (Tooth extraction, spinal fluid leak with patching 2001)
Social History
Tobacco: Smoker
Alcohol: Former (quit 1 year ago)
Drug: None
Personal:
Living: With Family
Family History
Family History: Other (No family history gastrointestinal malignancy or IBD)
Allergies / Home Medications
Allergy/AdvReac Type Severity Reaction Status Date / Time
No Known Allergies Allergy Verified 05/29/24 11:21
�Medication �Instructions �Recorded
albuterol sulfate 90 mcg/actuation 2 puff inhalation R Q6HPRN PRN 03/13/24
aerosol inhaler shortness of breath or wheezing
alprazolam 1 mg tablet 1 mg PO BID anxiety 03/13/24
furosemide 40 mg tablet (Lasix) 40 mg PO DAILY Fluid 03/13/24
Retention/Swelling
lidocaine 4 % topical patch 2 patch topical DAILYPRN PRN right 03/13/24
shoulder and knee
thiamine HCl (vitamin B1) 100 mg 100 mg PO DAILY Supplement 03/13/24
tablet
budesonide 160 mcg-glycopyr 9 2 inh inhalation R BID 04/11/24
mcg-formot 4.8 mcg/actuation HFA Lung/Breathing Issues
inhaler (Breztri Aerosphere)
magnesium oxide 400 mg PO BID Supplement 04/11/24
pantoprazole 40 mg tablet,delayed 40 mg PO BID Gastrointestinal Issue 04/17/24
release
spironolactone 50 mg tablet 50 mg PO DAILY Liver Issues 04/17/24
tramadol 50 mg tablet 50 mg PO BIDPRN PRN MODERATE PAINS 04/17/24
lactulose 10 gram/15 mL oral 10 g PO DAILY 05/29/24
solution (Constulose)
nicotine 1 patch transdermal DAILY 06/13/24
Review of Systems
-
All other systems: A 12 pt ROS was Negative except as stated above in HPI
Vital Signs
Temp Pulse Resp BP Pulse Ox
98.1 F 89 16 107/57 96
06/14/24 09:30 06/14/24 10:16 06/14/24 10:16 06/14/24 10:16 06/14/24 10:16
Physical Exam
Exam
General: No Apparent Distress
HEENT: Normocephalic, Anicteric and Other (lesion on tip of nose)
Respiratory: Clear
Cardiac: Regular Rhythm
GI: Soft, Non Tender, Non Distended and Normal Bowel Sounds
Skin: Warm
Neuro: AO x 3
Psych: Calm and Other (no asterixis)
Results
WBC 4.3 10^3/uL (4.8-10.8) L 06/14/24 07:13
Hgb 6.4 g/dL (13.0-18.0) L* 06/14/24 07:13
Hct 19.2 % (39.0-52.0) L* 06/14/24 07:13
MCV 81.7 fL (80.0-94.0) 06/14/24 07:13
Plt Count 88 10^3/uL (130-400) L D 08/08/24 07:13
Sodium 127 mmol/L (135-145) L 06/14/24 07:13
Potassium 4.1 mmol/L (3.5-5.1) 06/14/24 07:13
Chloride 98 mmol/L (98-107) 06/14/24 07:13
Carbon Dioxide 27 mmol/L (22-30) 06/14/24 07:13
BUN 16 mg/dl (9-20) 06/14/24 07:13
Creatinine 0.8 mg/dL (0.7-1.3) 06/14/24 07:13
Calcium 8.0 mg/dl (8.4-10.2) L 06/14/24 07:13
Total Bilirubin 2.6 mg/dl (0.2-1.3) H 06/14/24 07:13
AST 44 U/L (17-59) 06/14/24 07:13
ALT 20 U/L (0-50) 06/14/24 07:13
Alkaline Phosphatase 94 U/L (38-126) 06/14/24 07:13
Diagnostic Image Results:
Prior GI Procedures:
EGD: Colonoscopy 04/13/2024-[facility] - One 15 to 18 mm polyp at the hepatic flexure,
removed using lift and cut and a hot snare and removed
with a cold snare. Resected and retrieved. Injected.
Treated with hot biopsy forceps. Ligated.
- One 4 mm polyp in the descending colon, removed with
a hot snare. Resected and retrieved. Clip was placed.
- Diverticulosis in the sigmoid colon, in the
descending colon and at the splenic flexure.
bx DC -TA and HF - HP polyp
EGD 04/13/2024� [facility] - No gross lesions in the entire esophagus. No varices.
- Z-line variable, 42 cm from the incisors.
- Portal hypertensive gastropathy.
- Normal examined duodenum.
- No specimens collected.
EGD:12/27/22 [facility] - Normal esophagus.
- Portal hypertensive gastropathy.
- Normal examined duodenum.
- No specimens collected.
04/11/2024 MRI Abd with and without:
IMPRESSION: Examination limited by motion artifact.
CT may be useful as the next surveillance imaging examination, as perhaps there would be less motion artifact.
Given this limitation, there is no MR evidence for hepatocellular carcinoma.
Findings of cirrhosis with ascites, splenomegaly, and prominent varices within the abdomen, and extending around the distal esophagus.
05/07/[address] Smith : - Hemorrhoids found on perianal exam.
- The examined portion of the ileum was normal.
- Foreign body (OVSCO clip) at the hepatic flexure.
- Polypoid lesion at the hepatic flexure.
- Diverticulosis in the sigmoid colon and in the
descending colon.
- Internal hemorrhoids.
- No specimens collected.
Assessment / Plan
-
59-year-old male with a past medical history significant for liver cirrhosis with decompensation- ascites, mild HE, hx GI bleed portal gastropathy and evidence of gastric and lower esophageal varices on recent MRI with history of prior alcohol
abuse (last use 4 months ago), elevated AFP of 30 with neg MRI in early April, and hepatitis C status-post treatment (took 8 out of 12 weeks Epclusa but did eradication last year with neg RNA in February), Klebsiella pneumonia, hypertension,
thrombocytopenia, GERD, tobacco use, smoking 1/2 ppd, anxiety, with recurrent admission for drop in Hgb. He has had several recent admissions. In March noted with ascites with neg US doppler for PVT and diuretics were increased. He was then
admitted on [facility] with anemia. GI procedures for BERRY with EGD 04/13 with no varices, portal HTN gastropathy, and colonoscopy with 15-18 mm polyp HP with. 4 mm polyp DC with clip placed. Pt has required 9 units PRBC's and 1 FFP since 04/11. Pt also had
other testing with bili elevation with LDH 261, haptoglobin <10, retic count 3.9. Repeat Colonoscopy performed on 05/07/24 with hemorrhoids, OVSCO clip at the hepatic flexure, polypoid lesion at the hepatic lesion, diverticulosis in sigmoid and
descending colon. The patient had outpatient labs and was instructed to go to the ER by Dr. Dan who he follows at [facility] and where is being evaluated for Liver Transplant. His Hgb as an outpatient was 7.0 and when he came to the
ER it was 6.8.
Impression:
-Decompensated alcoholic/Hep C liver cirrhosis, MELD 3.0= 20
-Anemia, Hgb 6.4
-Chronic thrombocytopenia, stable-> 88
-Ascites-> on Lasix 40 mg daily and Aldactone 50 g daily
-Chronic hyponatremia-> 127
-Hyperbilirubinemia-> 2.6
-AFP now 30, was in the 10-12 range
-Hx Hep C s/p tx with Epclusa with SVR
Other pertinent medical history:
-Chronic pain
-GERD
-Hypertension
-Anxiety
Plan:
-Transfuse as ordered
-Trend Hgb
-Watch for signs of bleeding, although patient currently negative for occult blood
-Consider Heme consultation??
-Continue Pantoprazole 40 mg BID
-Await paracentesis labs
-Continue Lactulose
-Continue Pantoprazole 40 mg daily
-Continue 2 g sodium diet, daily weights.
-Continue Lasix 40 mg daily and Aldactone 50 mg po daily.
-Okay to continue 81 mg of aspirin with history of lacunar infarct
-CBC, BMP, LFTs, INR in am
-Follow up with Dr. Dan ([facility])
-Further recommendations to be forthcoming
-
-
Thank you for consultation and allowing me to participate in the patient's care. Please call the convenience [facility] tech GI physician during the after hours with any questions or concerns.
[2024-06-14] MEDS: DUPHALAC/CHRONULAC 20 GRAMS PO (20:06)
[2024-06-15] MEDS: LIDOCAINE 4% PATCH 1 PATCH TOPICAL (01:31)
[2024-06-15 04:26] VITALS: BMI 25.6
[2024-06-15 07:30] VITALS: BP 126/65
[2024-06-15] MEDS: ALDACTONE 50 MG PO (07:54)
[2024-06-15] MEDS: PROTONIX 40 MG PO (07:54)
[2024-06-15] MEDS: XANAX 1 MG PO (07:54)
[2024-06-15] MEDS: MAG-TAB SR 84 MG PO (07:54)
[2024-06-15] MEDS: VITAMIN B1 100 MG PO (07:54)
[2024-06-15] MEDS: LASIX 40 MG PO (07:55)
[2024-06-15] MEDS: NICODERM TRANSDERMAL 14 MG TRANSDERM (07:55)
[2024-06-15] MEDS: DUPHALAC/CHRONULAC PO (07:59)
[2024-06-15 08:17] LABS: INR 1.59; PT 18.8 Sec (11.4-14.6)
--- NOTE | 2024-06-15 08:33 | PN.CDI ---
CDI
- -
CDI:
Physician Documentation Request
Admit Date: 06/13/24 21:32
Dear Doctor Gaurang,
Please review the following and provide your response in the progress notes.
Clinical Indicators:
PN, 06/14
#Chronic Cirrhosis secondary to Alcohol and HCV (treated)
Laboratory Tests
06/14/24
07:13
WBC 4.3 L
RBC 2.35 L
Plt Count 88 L D
Based on the above and your clinical assessment, please clarify in the progress notes, the appropriate diagnosis, if significant, that supports the above abnormalities and additional evaluation, monitoring and/or treatment rendered:
Pancytopenia
Other drug induced pancytopenia
Abnormal lab value, clinically insignificant
Other(please specify)
Use of terms such as suspected, likely, concern for, or probable (associated with a specific diagnosis that is being evaluated, monitored, or treated as if it exists) are acceptable and can be coded in the inpatient setting, when documented at the
time of discharge.
Thank you,
Yumiko Pinedo RN BSN CCDS
CDI Specialist
please consult via tiger text
Please use your independent medical judgment in providing your response.
[2024-06-15 09:03] LABS: Hematocrit 25.8 % (39.0-52.0); Hemoglobin 8.5 g/dL (13.0-18.0); Mean Corp Hgb Conc. 32.9 g/dL (33.0-37.0); Mean Corpuscular Hgb 26.6 pg (27.0-31.0); Mean Corpuscular Volume 80.9 fL (80.0-94.0); Mean Platelet Volume 9.1 fL (7.4-10.4); Platelet Count 104 10^3/uL (130-400); Red Blood Cell Count 3.19 10^6/uL (4.70-6.10); Red Cell Dist. Width 15.9 % (11.5-14.5)
[2024-06-15 09:06] LABS: ALT (SGPT) 20 U/L (0-50); AST (SGOT) 44 U/L (17-59); Alkaline Phosphatase 96 U/L (38-126); Blood Urea Nitrogen 12 mg/dl (9-20); Calcium 8.6 mg/dl (8.4-10.2); Carbon Dioxide 25 mmol/L (22-30); Chloride 102 mmol/L (98-107); Estimated Creatinine Clearance 100 ml/min; Glucose 96 mg/dl (70-99); Sodium 131 mmol/L (135-145); Total Protein 5.1 g/dl (6.3-8.2); eGFR > 60.00
--- NOTE | 2024-06-15 09:46 | W.PN.HOSP.TC ---
Addendum entered and electronically signed by Jhonny Merlos MD 06/15/24 11:35:
Case discussed with GI over Alba and Pily Morrison state 'Delilah with further stools, no blood in rectal Brown stool with hemorrhoids, likely hemorrhoidal bleeding, can go home today.'
Total time spent on d/c = 34 min. This included today's physical exam, progress note, review of laboratory and diagnostic data, preparation of discharge documents and prescriptions, and discussions about the pt's hospital course and discharge plan
with the patient and other medical officer psychiatry involved in the patient's care.
Original Note:
Today's Communication/Plan
-
will d/w GI
Assessment / Plan
Assessment / Plan
Gen: NAD, Awake and alert, appears chronically ill.
Eyes: EOMI, PERRLA, mild scleral icterus.
Neck: supple.
CV: RRR, +S1/S2, no m/r/g.
Resp: CTAB, no rales, wheezes, or rhonchi.
Abd: +BS, soft, NT, mod distention with ascites
Skin: No rashes.
Neuro: CN 2-12 intact, non-focal.
Psych: Normal mood and affect.
Acute on Chronic Anemia:
-suspect related to GI loss despite heme-negative stool in ED given known hypertensive gastropathy on recent EGD
-s/p 3U pRBCs
-Continue Protonix BID
-GI following
-BRBPR this AM (pt notes 'when I wiped')
Recurrent Ascites:
-s/p paracentesis 06/14/24 for 5100cc, no SBP by fluid studies
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
-Continue Lasix and Aldactone
-Lactulose increased to 20g BID
COPD, no acute exacerbation
-Continue Breztri
Pancytopenia
FULL/SCDs
Anticipated Discharge: Within 24 hours
Subjective/Interval History
-
Date of Service: June 15, 2024
Denies CP/SOB. Reports BRBPR this AM.
Objective Data
-
Labs:
Laboratory Results
06/15/24
07:21
WBC 5.0
Hgb 8.5 L D
Hct 25.8 L
Plt Count 104 L
PT 18.8 H
INR 1.59
Sodium 131 L
Potassium 4.0
Chloride 102
Carbon Dioxide 25
BUN 12
Creatinine 0.8
Glucose 96
Calcium 8.6
Total Bilirubin 4.0 H D
AST 44
ALT 20
Alkaline Phosphatase 96
Vital Signs:
Vital Signs
Temp Pulse Resp BP Pulse Ox
99 F 113 20 126/65 95
06/15/24 07:30 06/15/24 07:54 06/15/24 07:30 06/15/24 07:54 06/15/24 07:30
I&O
06/14/24 06/15/24 06/16/24
06:59 06:59 06:59
Intake Total 250 / 250 740 / 740
Output Total 625 / 625 1650 / 1650
Balance -375 / -375 -910 / -910
[2024-06-15 10:26] VITALS: BP 131/69; PULSE 107
--- NOTE | 2024-06-15 11:12 | W.PN.GI.CBS2 ---
Today's Communication / Plan
-
hbg improved to 8.5
likely slow loss with portal gastropathy
pt with red blood this am not seen on rectal exam but noted enlarged hemorrhoids
discussed preparation H, sitz bath, avoid straining and prolonged sitting
cont lactulose
OP follow up with Dr. Dan and Mary patterson in August added to discharge
-Consider OP Heme eval with recurrent anemia
-Continue Pantoprazole 40 mg BID
paracentesis 06/14 labs neg SBP and Para PRN outpatient
-Continue Lactulose s/p albumin
-Continue Pantoprazole 40 mg daily
-Continue 2 g sodium diet, daily weights.
-Continue Lasix 40 mg daily and Aldactone 50 mg po daily.
cont ASA
pt asking about discharge reviewed with Dr. Merlos
Assessment / Plan
-
59-year-old male with a past medical history significant for liver cirrhosis with decompensation- ascites, mild HE, hx GI bleed portal gastropathy and evidence of gastric and lower esophageal varices on recent MRI with history of prior alcohol
abuse (last use 4 months ago), elevated AFP of 30 with neg MRI in early April, and hepatitis C status-post treatment (took 8 out of 12 weeks Epclusa but did eradication last year with neg RNA in February), Klebsiella pneumonia, hypertension,
thrombocytopenia, GERD, tobacco use, smoking 1/2 ppd, anxiety, with recurrent admission for drop in Hgb. He has had several recent admissions. In March noted with ascites with neg US doppler for PVT and diuretics were increased. He was then
admitted on Apr with anemia. GI procedures for BERRY with EGD 04/13 with no varices, portal HTN gastropathy, and colonoscopy with 15-18 mm polyp HP with. 4 mm polyp DC with clip placed. Pt has required 9 units PRBC's and 1 FFP since 04/11. Pt also had
other testing with bili elevation with LDH 261, haptoglobin <10, retic count 3.9. Repeat Colonoscopy performed on 05/07/24 with hemorrhoids, OVSCO clip at the hepatic flexure, polypoid lesion at the hepatic lesion, diverticulosis in sigmoid and
descending colon. The patient had outpatient labs and was instructed to go to the ER by Dr. Dan who he follows at [facility] for Hepatology and where is being evaluated for Liver Transplant. His Hgb as an outpatient was 7.0 and when he came to the
ER it was 6.8.
Impression:
-Decompensated alcoholic/Hep C liver cirrhosis, MELD 3.0= 20
-Anemia, Hgb 6.4
-Chronic thrombocytopenia, stable-> 88
-Ascites-> on Lasix 40 mg daily and Aldactone 50 g daily
-Chronic hyponatremia-> 127
-Hyperbilirubinemia-> 2.6
-AFP now 30, was in the 10-12 range
-Hx Hep C s/p tx with Epclusa with SVR
Other pertinent medical history:
-Chronic pain
-GERD
-Hypertension
-Anxiety
Plan:
hbg improved to 8.5
likely slow loss with portal gastropathy
pt with red blood this am not seen on rectal exam but noted enlarged hemorrhoids
discussed preparation H, sitz bath, avoid straining and prolonged sitting
cont lactulose
OP follow up with Dr. Dan and Mary patterson in August added to discharge
-Consider OP Heme eval with recurrent anemia
-Continue Pantoprazole 40 mg BID
paracentesis 06/14 labs neg SBP and Para PRN outpatient
-Continue Lactulose s/p albumin
-Continue Pantoprazole 40 mg daily
-Continue 2 g sodium diet, daily weights.
-Continue Lasix 40 mg daily and Aldactone 50 mg po daily.
cont ASA
pt asking about discharge reviewed with Dr. Merlos
Subjective
Subjective
Date of Service: June 15, 2024
06/14 brown heme + stool, on regular diet noted some red blood this am but further stools without blood
Objective
Data Reviewed
Laboratory Data:
Laboratory Results
06/15/24 07:21
06/15/24 07:21
Laboratory Results
PT 18.8 Sec (11.4-14.6) H 06/15/24 07:21
INR 1.59 06/15/24 07:21
Magnesium 2.1 mg/dl (1.6-2.3) 06/14/24 07:13
Total Bilirubin 4.0 mg/dl (0.2-1.3) H D 06/15/24 07:21
AST 44 U/L (17-59) 06/15/24 07:21
ALT 20 U/L (0-50) 06/15/24 07:21
Alkaline Phosphatase 96 U/L (38-126) 06/15/24 07:21
Vital Signs and I&O:
Vital Signs
Temp Pulse Resp BP Pulse Ox
99 F 113 20 126/65 95
06/15/24 07:30 06/15/24 07:54 06/15/24 07:30 06/15/24 07:54 06/15/24 07:30
I&O
06/14/24 06/15/24 06/16/24
06:59 06:59 06:59
Intake Total 250 / 250 740 / 740
Output Total 625 / 625 1650 / 1650
Balance -375 / -375 -910 / -910
Physical Exam
Physical Exam
HEENT: Anicteric and Moist mucous membranes
Cardiology: Normal Sinus Rhythm
Pulmonary: Clear
GI: Soft, Distended and Other (umbilicarl hernia, scrotal swelling )
Rectal: Brown and Hemorrhoids
Neuro: Non Focal
--- NOTE | 2024-06-15 17:25 | CM ---
Reviewed pt's chart, met with pt and pt's daughter Valeria at bedside.
Pt is a 59 year old male, admitted with primary dx of anemia and ascites.
Pt reports he lives with spouse 2SH, 1 step to enter, has 3 supportive daughters. Pt reports he ambulates with a cane and is active with [facility]. No SNF history. Pt expressed his fears regarding evaluations for liver transplant with Dr. Dan.
Emotional; support offered and provided. Pt's daughter stated that pt will need some psychosocial therapy at home and she agrees that marriage and family social worker visits will be requested.
Plan: Discharge to home with no needs at this time.
PCP: saran Wood
Pharm: [facility] on [address] in [place]
== END 2024-06-15 13:06 | disposition home or self-care (01) | DRG 812 ==
LOC: 4 EAST ACU 21:32
PROVIDERS: Nurse Practitioner Adult Health; Physician Assistant Medical; Radiology Diagnostic Radiology; ADMITTING PHYSICIAN Internal Medicine; ATTENDING PHYSICIAN Internal Medicine; CONSULT PHYSICIAN Internal Medicine Gastroenterology; EMERGENCY PHYSICIAN Emergency Medicine; FAMILY PHYSICIAN Internal Medicine
PROC: 30233N1 Transfusion of Nonautologous Red Blood Cells into Peripheral Vein, Percutaneous Approach (ICD-10-PCS; 2024-06-13)
PROC: 0W9G3ZZ Drainage of Peritoneal Cavity, Percutaneous Approach (ICD-10-PCS; 2024-06-14)
DX: D62 Acute posthemorrhagic anemia (principal); E87.1 Hypo-osmolality and hyponatremia; K76.6 Portal hypertension; I69.351 Hemiplegia and hemiparesis following cerebral infarction affecting right dominant side; E78.00 Pure hypercholesterolemia, unspecified; E11.9 Type 2 diabetes mellitus without complications; D69.6 Thrombocytopenia, unspecified; F10.11 Alcohol abuse, in remission; K70.31 Alcoholic cirrhosis of liver with ascites; K31.89 Other diseases of stomach and duodenum; J44.9 Chronic obstructive pulmonary disease, unspecified; I69.344 Monoplegia of lower limb following cerebral infarction affecting left non-dominant side; K64.9 Unspecified hemorrhoids; F17.210 Nicotine dependence, cigarettes, uncomplicated; F41.9 Anxiety disorder, unspecified; G47.00 Insomnia, unspecified; I10 Essential (primary) hypertension; K21.9 Gastro-esophageal reflux disease without esophagitis; D61.818 Other pancytopenia; Z79.899 Other long term (current) drug therapy; Z86.19 Personal history of other infectious and parasitic diseases
CPT/HCPCS: 88305; 36415; 49083; 80053; 82042; 82140; 82150; 83615; 83735; 84157; 85025; 85027; 85610; 86850; 86900; 86901; 86920; 86922; 87015; 87070; 87205; 88112; 89051; 93005; 97161; 97165; 99285; P9016; P9047

== ENCOUNTER → 2024-06-19 07:51 | Outpatient (REF) | payer BC, SELFPAY ==
[2024-06-19 10:01] LABS: ALT (SGPT) 20 U/L (0-50); AST (SGOT) 46 U/L (17-59); Alkaline Phosphatase 110 U/L (38-126); Direct Bilirubin 0.5 mg/dl (0.0-0.4); Total Bilirubin 2.1 mg/dl (0.2-1.3); Total Protein 5.3 g/dl (6.3-8.2)
[2024-06-19 10:56] LABS: % Basophils 0.7 % (0-2); % Eosinophils 2.1 % (0-6); % Immature Granulocytes 0.2 % (0-0.5); % Lymphocytes 21.1 % (20.5-51.1); % Monocytes 9.8 % (1.7-9.3); % Neutrophils 66.1 % (42.2-75.2); Absolute Eosinophils 0.1 10^3/uL (0-0.7); Absolute Lymphocytes 0.9 10^3/uL (1.2-3.4); Absolute Monocytes 0.4 10^3/uL (0.1-0.6); Absolute Neutrophils 2.8 10^3/uL (1.4-6.5); Hematocrit 26.2 % (39.0-52.0); Hemoglobin 8.4 g/dL (13.0-18.0); Mean Corp Hgb Conc. 32.1 g/dL (33.0-37.0); Mean Corpuscular Volume 84.2 fL (80.0-94.0); Mean Platelet Volume 10.1 fL (7.4-10.4); Nucleated Red Blood Cells % 0 % (-); Platelet Count 82 10^3/uL (130-400); Red Blood Cell Count 3.11 10^6/uL (4.70-6.10); Red Cell Dist. Width 17.2 % (11.5-14.5); White Blood Cell Count 4.3 10^3/uL (4.8-10.8)
== END ==
LOC: HWLAB 07:51
PROVIDERS: ATTENDING PHYSICIAN Internal Medicine; OTHER PHYSICIAN Internal Medicine Transplant Hepatology; REFERRING PHYSICIAN Nurse Practitioner Family
DX: D64.9 Anemia, unspecified (principal); K70.31 Alcoholic cirrhosis of liver with ascites
CPT/HCPCS: 36415; 80076; 85025

== ENCOUNTER → 2024-06-22 07:02 | Outpatient (REF) | payer BC, SELFPAY ==
[2024-06-22 07:20] VITALS: BP 137/63; BP_SYST 86
[2024-06-22 08:35] VITALS: BP 126/68; BP_SYST 88
[2024-06-22 08:40] VITALS: BP 126/68
[2024-06-22 11:31] LABS: Body Fluid Mononuclear 59.7 %; Body Fluid Polymorphonuclear 40.3 %; Body Fluid WBC 218 /CUMM
[2024-06-22 11:36] LABS: Body Fluid Second Tech EF
== END ==
LOC: RADI 07:02
PROVIDERS: ATTENDING PHYSICIAN Nurse Practitioner Adult Health; FAMILY PHYSICIAN Internal Medicine
DX: R18.8 Other ascites (principal)
CPT/HCPCS: 49083; 87015; 87070; 87205; 89051

== ENCOUNTER → 2024-06-25 09:20 | Outpatient (REF) | payer BC, SELFPAY ==
[2024-06-25 12:28] LABS: % Basophils 0.6 % (0-2); % Eosinophils 3.7 % (0-6); % Immature Granulocytes 0.4 % (0-0.5); % Lymphocytes 17.9 % (20.5-51.1); % Monocytes 8.5 % (1.7-9.3); % Neutrophils 68.9 % (42.2-75.2); Absolute Eosinophils 0.2 10^3/uL (0-0.7); Absolute Lymphocytes 0.9 10^3/uL (1.2-3.4); Absolute Monocytes 0.4 10^3/uL (0.1-0.6); Absolute Neutrophils 3.5 10^3/uL (1.4-6.5); Mean Corpuscular Hgb 27.1 pg (27.0-31.0); Mean Corpuscular Volume 84.7 fL (80.0-94.0); Mean Platelet Volume 9.7 fL (7.4-10.4); Nucleated Red Blood Cells % 0 % (-); Platelet Count 107 10^3/uL (130-400); Red Blood Cell Count 2.95 10^6/uL (4.70-6.10); Red Cell Dist. Width 18.7 % (11.5-14.5); White Blood Cell Count 5.1 10^3/uL (4.8-10.8)
[2024-06-25 12:44] LABS: ALT (SGPT) 20 U/L (0-50); AST (SGOT) 52 U/L (17-59); Albumin 3.1 g/dl (3.5-5.0); Alkaline Phosphatase 136 U/L (38-126); Blood Urea Nitrogen 24 mg/dl (9-20); Calcium 8.7 mg/dl (8.4-10.2); Carbon Dioxide 24 mmol/L (22-30); Chloride 99 mmol/L (98-107); Direct Bilirubin 0.7 mg/dl (0.0-0.4); Glucose 137 mg/dl (70-99); Potassium 5.1 mmol/L (3.5-5.1); Sodium 128 mmol/L (135-145); Total Bilirubin 1.8 mg/dl (0.2-1.3); Total Protein 5.2 g/dl (6.3-8.2); eGFR > 60.00
[2024-06-25 12:45] LABS: INR 1.23; PT 15.3 Sec (11.4-14.6)
[2024-06-25 12:46] LABS: APTT 34.2 Sec (23.4-35.0)
== END ==
LOC: HWLAB 09:20
PROVIDERS: ATTENDING PHYSICIAN Nurse Practitioner Family; FAMILY PHYSICIAN Internal Medicine
DX: D64.9 Anemia, unspecified (principal); K70.31 Alcoholic cirrhosis of liver with ascites
CPT/HCPCS: 36415; 80053; 82248; 85025; 85610; 85730

== ENCOUNTER 2024-06-28 13:36 | Inpatient (IN) | payer BC, SELFPAY ==
[2024-06-28] VITALS (25 sets, daily range): BP systolic 100–137; BP diastolic 61–96; BMI 27.5; BMI 24.2
--- NOTE | 2024-06-28 11:19 | ED.GENMED ---
History of Present Illness
General
Chief Complaint: Change in Mental Status
Source: patient and spouse
Time Seen by Provider: 06/28/24 10:54
History of Present Illness
History of Present Illness:
59-year-old gentleman presents to the emergency room for evaluation of generalized weakness, lethargy, confusion. Patient has history of cirrhosis. He denies any fever. He did have a change in his medications about a week to 10 days ago. He was
changed from lactulose to Xifaxan. Patient states he is having soft stools but not diarrhea. He denies constipation. Today he was too weak to get out of bed and was incontinent of stool. He denies headache.
Past History
Past History
ED Past Medical History: COPD, CVA, HTN, Psychiatric and Other
ED Past Surgical History: Other
Social History
Tobacco: Smoker
Alcohol: Former
Drug: None
Personal:
Living: with family
Employment: Employed
Family History
Family History: Diabetes and Other
Phy Exam
Physical Exam
Physical Exam:
General: Awake, Alert, Oriented X3. Appears chronically ill
Vitals: unremarkable
Head: Atraumatic
Eyes: Pupils equal, EOMI
Throat: Airway intact, no exudates
Neck: Trachea midline
Lungs: Expiratory wheezing throughout
Heart: Regular rate, 3/6 murmurs
Abd: Soft, distended from ascitic fluid, nontender, No pulsatile mass
Rectal:
Neuro: Grossly nonfocal
Skin: Very pale, warm, dry, no rash
Extremities: pulses equal b/l, no edema
Course
Orders/Labs/Results
Orders:
Orders
06/28/24 11:21
Consult Interventional Radiology [IRAD CONSULT] Urgent
Consulting Provider: Tay Sanchez
Was physician already notified: Yes
Reason for Consult/Procedure: paracentesis
Acknowledgement that appropriate orders are entered: Yes
Ipratropium/Albuterol Sulfate [Duoneb] 3 ml INH R NOW STA
06/28/24 11:57
Type+Screen Urgent
Ammonia Urgent
Complete Blood Count/With Diff Urgent
Comprehensive Metabolic Panel Urgent
Venous Blood Gas Urgent
%Oxygen/Room Air: ra
06/28/24 12:21
Blood Bank Products [* Blood Bank Products] Urgent
Blood Bank Products: *Packed RBC Leuko(PRBC's)
Quantity: 2
Transfuse Today: Yes
Reason: Anemia
06/28/24 12:29
Prothrombin Time Urgent
06/28/24 12:56
GASTROINTESTINAL CONSULT Routine
Consulting Provider: Aftab Vanessa
Was physician already notified: Yes
06/28/24 12:57
PALLIATIVE CARE CONSULT Routine
Consulting Provider: Cherise Toro
Was physician already notified: Yes
06/28/24 13:15
0.9% Sodium Chloride 1000 ml [Nss] 1,000 ml IV 40 mls/hr
Pantoprazole 80 mg/100 ml Nss [Protonix] 80 mg in 100 ml IV Q10H
06/28/24 13:17
Admit/Transfer Patient As Directed
Co-Sign Provider:
Level of Care: Inpatient admission
Assign to:: IMU- Intermediate Care
Physician / Group: melania
Diagnosis: hepatic encephalopathy
Reason for Hospitalization: hepatic encephalopathy
Expected length of stay greater than two midnights?: Yes
ELOS- Estimated Length of Stay in days: 3
I certify the patient meets the requirements for IP care: Yes
PRN Pain Medication Management As Directed
May give lesser potent ordered pain med per pt: Yes
preference::
Protocol:: Medication orders for pain may be administered in a
manner that supports deferring to patient preference
when the pt is:
- Requesting an ordered lesser potent pain medication.
Least to most potent pain medications are defined
as: acetaminophen < NSAID < tramadol < opioids
(morphine, oxycodone, hydromorphone).
- Requesting a lesser dose of the same medication IF
ORDERED.
- Requesting a less intrusive route of administration
if both routes are prescribed by the provider (PO <
IV).
06/28/24 13:18
Code Status As Directed
Resuscitation Status: Full Code
06/28/24 13:20
Urinalysis Reflex To Culture Urgent
Date Specimen was Collected: 06/28/24
Time Specimen was Collected: 13:19
Urine Microscopic Reflex Cult Urgent
Urine Culture Urgent
LOVE Source: U
Specimen Description:
Date Specimen was Collected: 06/28/24
Time Specimen was Collected: 13:19
06/28/24 14:00
Flush (0.9% Sodium Chloride) [Flush (Nss)] See Dose Instructions IV PER PROTOCOL
06/28/24 15:04
Body Fluid Cell Count Urgent
What is the Body Fluid: Peritoneal fluid
Date Specimen was Collected: 06/28/24
Time Specimen was Collected: 15:00
Body Fluid Glucose Urgent
Fluid Source: Peritoneal (Ascites)
Date Specimen was Collected: 06/28/24
Time Specimen was Collected: 15:00
Body Fluid LDH Urgent
Fluid Source: Peritoneal (Ascites)
Date Specimen was Collected: 06/28/24
Time Specimen was Collected: 15:00
Body Fluid pH Urgent
Fluid Source: Peritoneal (Ascites)
Date Specimen was Collected: 06/28/24
Time Specimen was Collected: 15:00
Fluid Culture with Gram Stain Urgent
LOVE Source: Peritoneal Fluid
Specimen Description:
Date Specimen was Collected: 06/28/24
Time Specimen was Collected: 15:00
Abnormal Lab Results
06/28/24 06/28/2406/28/24
11:57 12:29 13:20
RBC 1.98 L 10^6/uL
(4.70-6.10)
Hgb 5.7 L* D g/dL
(13.0-18.0)
Hct 16.8 L* %
(39.0-52.0)
RDW 20.9 H %
(11.5-14.5)
Plt Count 114 L 10^3/uL
(130-400)
Lymphocytes % 18.1 L %
(20.5-51.1)
Monocytes % 10.0 H %
(1.7-9.3)
PT 17.2 H Sec
(11.4-14.6)
VBG pH 7.48 H
(7.32-7.43)
VBG pCO2 33 L mmHg
(35-48)
VBG pO2 136 H mmHg
(30-50)
Sodium 133 L mmol/L
(135-145)
BUN 36 H mg/dl
(9-20)
Glucose 120 H mg/dl
(70-99)
Total Bilirubin 1.8 H mg/dl
(0.2-1.3)
Ammonia 57 H umol/L
(9-30)
Total Protein 4.4 L g/dl
(6.3-8.2)
Albumin 2.5 L g/dl
(3.5-5.0)
Urine Bilirubin 1+ A
(Negative)
Leukocyte Esterase Rfl 2+ A
(Negative)
Urine WBC (Reflex) 21-25 A /HPF
(0-5)
Urine Bacteria (Reflex) Few A
(Negative)
Crossmatch IS Only See Detail
MTS Gel Crossmatch See Detail
06/28/24 11:57
06/28/24 11:57
Vital Signs
Initial and Last Documented VS:
Initial Vital Signs
Temp Pulse Resp BP Pulse Ox
99.5 F 103 20 132/66 97
06/28/24 10:28 06/28/24 10:28 06/28/24 10:28 06/28/24 10:28 06/28/24 10:28
Last Documented Vital Signs
Temp Pulse Resp BP Pulse Ox
99.1 F 111 18 130/67 99
06/28/24 14:20 06/28/24 14:20 06/28/24 14:20 06/28/24 14:20 06/28/24 14:20
MDM/Problems Addressed
Differential Diagnosis Includes:
hepatic encephalopathy, electrolyte abn, sbp,
MDM/Problems Addressed:
Patient presents confused, generally weak. Patient afebrile. His abdominal exam is benign. Labs show significant anemia with a hemoglobin of 5.7 Blood ordered. Paracentesis requested from IR to eval for SBP. PT will require hospitalization
for transfusion, supportive care.
*Pulse Oximetry
Patient hypoxic: no
*Critical Care Note
Total Time (30-74mins, 75-104mins- exclusive of procedures): 32 min
comment:
Critical care statement: A total of 32 minutes of critical care time was provided for this patient. This includes management of unstable vital signs, evaluation of the patient at bedside, reviewing the patient's pertinent medical records, discussion
with consultants, review of old EKGs and review of pertinent medical records. This time with separate from time utilized to perform the aforementioned documented procedures
ED Attending Note
-
Portions of this chart may have been created with voice recognition software.� Occasional wrong word or��sound alike� substitutions may have occurred due to the inherent limitations of voice recognition software.
Discharge Plan
Departure
Patient Disposition: Admit
Date of Disposition: 06/28/24
Time of Disposition: 12:27
Admit to: Med/Surg
Presentation/result/management discussed w/ accepting MD/DO: Hospitalist
Condition: Fair
Discharge Problem:
Symptomatic anemia, Cirrhosis
Interventions
Interventions:
*Risk Screen - Suicide Last Done: 06/28/24 11:01
*General Assessment Last Done: 06/28/24 10:28
*Neglect/Abuse Screening Last Done: 06/28/24 11:01
ED- Fall Risk Assessment Last Done: 06/28/24 11:01
*ED COVID-19 Vaccine History Last Done: 06/28/24 10:28
ED- Pulmonary Assessment Last Done: 06/28/24 11:01
ED- Neurological Assessment Last Done: 06/28/24 11:01
ED- Cardiac Assessment Last Done: 06/28/24 11:01
ED Swallowing Screen Last Done: 06/28/24 13:55
[2024-06-28] MEDS: DUONEB 3 ML INH (11:34)
[2024-06-28 12:13] LABS: Venous Blood Gas HCO3 24.6 mmol/L (22-27); Venous Blood Gas pCO2 33 mmHg (35-48); Venous Blood Gas pH 7.48 (7.32-7.43); Venous Blood Gas pO2 136 mmHg (30-50)
[2024-06-28 12:15] LABS: Venous Blood Gas O2 Therapy RA
[2024-06-28 12:18] LABS: % Basophils 0.5 % (0-2); % Eosinophils 1.7 % (0-6); % Immature Granulocytes 0.5 % (0-0.5); % Lymphocytes 18.1 % (20.5-51.1); % Neutrophils 69.2 % (42.2-75.2); Absolute Eosinophils 0.1 10^3/uL (0-0.7); Absolute Lymphocytes 1.2 10^3/uL (1.2-3.4); Absolute Monocytes 0.6 10^3/uL (0.1-0.6); Absolute Neutrophils 4.4 10^3/uL (1.4-6.5); Hematocrit 16.8 % (39.0-52.0); Hemoglobin 5.7 g/dL (13.0-18.0); Mean Corp Hgb Conc. 33.9 g/dL (33.0-37.0); Mean Corpuscular Hgb 28.8 pg (27.0-31.0); Mean Corpuscular Volume 84.8 fL (80.0-94.0); Mean Platelet Volume 10.1 fL (7.4-10.4); Nucleated Red Blood Cells % 0 % (-); Platelet Count 114 10^3/uL (130-400); Red Blood Cell Count 1.98 10^6/uL (4.70-6.10); Red Cell Dist. Width 20.9 % (11.5-14.5); White Blood Cell Count 6.4 10^3/uL (4.8-10.8)
[2024-06-28 12:33] LABS: Ammonia 57 umol/L (9-30)
--- NOTE | 2024-06-28 12:39 | HPS.HSE ---
Family Physician
-
Family Physician: Drake Goss
Chief Complaint
-
Generalized weakness
History of Present Illness
59-year-old gentleman with past medical history for anemia history of portal hypertensive gastropathy, decompensated cirrhosis presented to us with generalized weakness, lethargy, confusion. Patient stated short of breath, worse with exertion. He
also complaining of dizziness. Patient denied headache. Patient denied chest pain. Patient denied abdominal pain but noted to have abdominal distention. He also complained of dark stool. Denied any bloody stool. Denied dysuria hematuria.
Patient does not like the taste of lactulose so he stopped taking lactulose.
On arrival hemoglobin of 5.7. Transfusing with units of blood. Admitting for further management
Medical History
Past Medical History
Past Medical History: Reports Other
Additional Past Medical History:
Anxiety
Portal cirrhosis
Thrombocytopenia
Hypertension
Hepatitis C
COPD
Bleeding hemorrhoids
Alcohol abuse
Ascites
Alcohol cirrhosis
Past Surgical History: Reports Other
Additional Past Surgical History:
Repair of spinal fluid leak
Teeth extraction
Social History
Tobacco: Non-smoker
Alcohol: Former
Drug: None
Family History
Family History: Not pertinent
Allergies / Home Medications
Allergies reflects when Allergies were last updated in [facility].
Home Medications with original date entered in [facility]
Allergy/Medication List:
Allergies
Allergy/AdvReac Type Severity Reaction Status Date / Time
No Known Allergies Allergy Verified 06/28/24 10:27
Home Medications
alprazolam 1 mg tablet 1 mg PO BID anxiety 03/13/24
furosemide 40 mg tablet (Lasix) 40 mg PO DAILY Fluid Retention/Swelling 03/13/24
thiamine HCl (vitamin B1) 100 mg tablet 100 mg PO DAILY Supplement 03/13/24
budesonide 160 mcg-glycopyr 9 mcg-formot 4.8 mcg/actuation HFA inhaler (Breztri Aerosphere) 2 inh inhalation R BID Lung/Breathing Issues 04/11/24
spironolactone 50 mg tablet 50 mg PO DAILY Liver Issues 04/17/24
magnesium oxide 400 mg PO BID 06/28/24
pantoprazole 40 mg tablet,delayed release (Protonix) 40 mg PO DAILY 06/28/24
rifaximin 550 mg tablet (Xifaxan) 550 mg PO BID 06/28/24
tramadol 50 mg tablet 50 mg PO BIDPRN PRN severe pain 06/28/24
Review of Systems
-
Constitutional: Reports Fatigue
EENT: Reports No Symptoms
Respiratory: Reports Cough and Trouble Breathing
Cardiac: Reports No Symptoms
Abdomen/GI: Reports No Symptoms
: Reports No Symptoms
Musculoskeletal: Reports No Symptoms
Skin: Reports No Symptoms
Neurological: Reports Dizzy and Weakness
Endocrine: Reports No Symptoms
Hematologic/Lymphatic: Reports No Symptoms
Psych: Reports No Symptoms
Physical Exam
Vital Signs
Vital Signs
Temp Pulse Resp BP Pulse Ox
99.5 F 101 25 129/62 100
06/28/24 10:28 06/28/24 12:00 06/28/24 12:00 06/28/24 12:00 06/28/24 12:00
Physical Exam
General: Well Developed, Well Nourished and No Apparent Distress
HEENT: NormoCephalic, Moist mucous membranes and Atraumatic
Respiratory: Clear
Cardiac: S1/S2 and Regular Rhythm; No Murmur or Rub
GI: Soft, Non Tender, Normal Bowel Sounds and Distended; No Organomegaly
Rectal: Deferred by Provider
Musculoskeletal: No Clubbing, No Cyanosis and No Edema
Skin: No Rash
Neuro: Nonfocal/grossly intact
Laboratory Results
-
06/28/24 11:57
Data Reviewed
-
Lab Data: Labs Reviewed by me
Impression/Plan
-
#weakness likely due to anemia
-PT/OT consult
#acute on chronic anemia likely blood loss likely oozing from portal htn gastropathy
-hgb 5.7
-IV Protonix continued
-Keep patient n.p.o except meds
-Normal saline 40 cc/h
-trend hgb
-GI consulted
#hepatic encephalopathy
-ammonia 57
-Continue lactulose
# Ascites
-IR consulted for paracentesis
# Decompensated cirrhosis secondary to alcohol and hepatitis C virus
-Hepatitis C status post treatment with Epclusa
-Lasix and Aldactone continued
-Xifaxan continued
# COPD with no acute exacerbation
-breztri continued
# Anxiety-alprazolam continued
# DVT prophylaxis
-SCDs
# CODE STATUS
-Full code
-Palliative care consulted to discuss the 2 goals of care in setting of acute hepatic encephalopathy
[2024-06-28 12:46] LABS: PT 17.2 Sec (11.4-14.6)
[2024-06-28 13:00] LABS: ALT (SGPT) 18 U/L (0-50); AST (SGOT) 44 U/L (17-59); Albumin 2.5 g/dl (3.5-5.0); Alkaline Phosphatase 102 U/L (38-126); Blood Urea Nitrogen 36 mg/dl (9-20); Calcium 8.5 mg/dl (8.4-10.2); Carbon Dioxide 25 mmol/L (22-30); Chloride 103 mmol/L (98-107); Estimated Creatinine Clearance 73 ml/min; Glucose 120 mg/dl (70-99); Potassium 4.6 mmol/L (3.5-5.1); Sodium 133 mmol/L (135-145); Total Bilirubin 1.8 mg/dl (0.2-1.3); Total Protein 4.4 g/dl (6.3-8.2); eGFR > 60.00
--- NOTE | 2024-06-28 13:01 | W.PN.UPDATE ---
Update Note
Progress Note Update
I saw and examined the patient.
The [employer] or PA's note was reviewed and I agree with the note.
Comment: 59 y/o M p/w CCs weakness, lightheadedness, SOB. States he has dark stools, denies hematochezia.
129/62, 101, 25, 99.5 �F, 100% RA
Gen: NAD, AAOx3, appears chronically ill.
Eyes: EOMI, PERRLA, no scleral icterus.
Neck: supple.
CV: tachy, reg rhythm, +S1/S2, no m/r/g.
Resp: CTAB, no rales, wheezes, or rhonchi.
Abd: +BS, soft, NT, marked distention with ascites
Skin: No rashes.
Neuro: CN 2-12 intact, non-focal.
Psych: Normal mood and affect.
Lab Results
24 06/28/24
11:57 12:29
WBC 6.4
RBC 1.98 L
Hgb 5.7 L* D
Hct 16.8 L*
MCV 84.8
MCH 28.8
MCHC 33.9
RDW 20.9 H
Plt Count 114 L
MPV 10.1
Abs Immat Gran (auto) 0.0
Absolute Neuts (auto) 4.4
Absolute Lymphs (auto) 1.2
Absolute Monos (auto) 0.6
Absolute Eos (auto) 0.1
Absolute Basos (auto) 0.0
Immature Gran % 0.5
Neutrophils % 69.2
Lymphocytes % 18.1 L
Monocytes % 10.0 H
Eosinophils % 1.7
Basophils % 0.5
Nucleated RBC % 0
PT 17.2 H
INR 1.40
VBG pH 7.48 H
VBG pCO2 33 L
VBG pO2 136 H
VBG HCO3 24.6
VBG O2 Sat (Suzie) 100.0
VBG Base Excess 1.0
VBG O2 Therapy Ra
Sodium 133 L
Potassium 4.6
Chloride 103
Carbon Dioxide 25
BUN 36 H
Creatinine 1.1
Estimated Creat Clear 73
eGFR > 60.00
Glucose 120 H
Calcium 8.5
Total Bilirubin 1.8 H
AST 44
ALT 18
Alkaline Phosphatase 102
Ammonia 57 H
Total Protein 4.4 L
Albumin 2.5 L
Blood Type O POS
Antibody Screen Negative
Acute on chronic blood loss anemia:
-Patient has known portal hypertensive gastropathy and likely has acute on chronic blood loss anemia due to oozing from portal hypertensive gastropathy
-Consult GI
-start PPI gtt
-NPO except meds
-NS @ 40cc/hr
Decompensated cirrhosis:
-Underlying cirrhosis due to alcohol abuse as well as hepatitis C s/p Tx with Epclusa
-restart Lactulose. Currently pt with acute hepatic encephalopathy
-cont with intermittent paracenteses (IR consulted)
-I asked the patient whether he would like to continue with recurrent hospitalizations for aggressive, hospital level of medical care considering his underlying pathology of advanced/end-stage cirrhosis. The patient said no. I then asked if the
patient would be interested in hospice and he said no. He then said 'I think I will be okay.' Difficult to determine the patient's true goals of care in the setting of acute hepatic encephalopathy. Reasonable to consult palliative care.
[2024-06-28] MEDS: PROTONIX 100 IV (13:28)
[2024-06-28 13:29] LABS: Urine Albumin Negative (Neg - Trace); Urine Bilirubin 1+ (Negative); Urine Character Clear (Clear); Urine Color Yellow; Urine Glucose Negative (Negative); Urine Ketone Negative (Negative); Urine Leukocyte 2+ (Negative); Urine Nitrite Negative (Negative); Urine Occult Blood Negative (Negative); Urine Specific Gravity 1.015 (<1.030); Urine Urobilinogen Negative (Neg - 1+)
[2024-06-28] MEDS: NSS 1000 IV (13:29)
[2024-06-28 14:04] LABS: Urine Bacteria Few (Negative); Urine Red Blood Cell 0-2 /HPF (0-2); Urine White Cell 21-25 /HPF (0-5)
[2024-06-28] MEDS: ULTRAM 50 MG PO ×2 (14:06→23:56)
--- NOTE | 2024-06-28 14:07 | CON.GI ---
Addendum entered and electronically signed by Aftab Vanessa MD 06/28/24 19:13:
I saw and examined the patient.
The SUMMER ASSOCIATE or PA's note was reviewed and I agree with the note.
Comment: 59yo male with hx Hep C/EtOH cirrhosis, ascites, HE, GIB due to portal gastropathy, hx postpolypectomy bleed presents due to weakness and found to be anemic Hgb 5.7. He has required multiple blood transfusions over the past year for
recurrent bleeding. He has had increased confusion. Stopped lactulose couple weeks ago after starting back on xifaxan. He had paracentesis today fluid WBC 69. Last EGD April 2024 showed portal gastropathy, no varices. Colonoscopy in April 2024
found 18mm polyp at HF removed and bled, required Ovesco clip for ligation
REC:
OK for clears
Transfuse PRBCs
Octreotide gtt
EGD tomorrow to evaluate for varices, portal gastropathy, PUD as source for melena
Cont lactulose and Xifaxan for HE
F/U with Dr Dan after d/c for Hepatology f/u. Was supposed to see him today
Original Note:
Consultation
-
Date/Time Consultation Requested: 06/28/24
Date/Time Consultation Performed: 06/28/24 @ 14:15
Requesting Provider: Dr. Merlos
Performing Provider: MARCIA Godoy; Dr. Aftab Vanessa
Reason for Consultation: hx portal HTN gastropathy, GI bleed, severe anemia
Medical History
Chief Complaint / HPI
Chief Complaint: generazlied weakness, altered mental status
History of Present Illness:
The patient is a 59-year-old male with a past medical history significant for decompensated cirrhosis with ascites and hepatic encephalopathy with prior history of alcohol abuse, history of hep C with eradication with Epclusa elevated AFP with
negative MRI, GERD, chronic thrombocytopenia, hypertension, CVA, colon polyps, anxiety, history of GI bleed secondary to portal hypertensive gastropathy with evidence of gastric and lower esophageal varices on MRI previously (no varices on EGD seen
in April), EBRRY, Klebsiella pneumonia, recurrent hospitalizations due to drop of hemoglobin, who presented to the emergency room with complaints of generalized weakness found to have severe anemia, w we are being asked to evaluate for. The patient is
well-known to our group, followed for management of decompensated liver cirrhosis. He was last seen in the office in May, at that time pending evaluation with hepatology for liver transplant. He was admitted to [facility] most recently
on 06/14 at that time again with recurrent anemia. At that time stool was heme-negative, and he was transfused for hemoglobin of 6.4. He was advised on routine management for his decompensated liver disease and follow-up with Dr. Dan at ""[place] where he is being evaluated for liver transplant. Of note he did have an upper endoscopy in April 2024 which did not show any evidence of esophageal or gastric varices but did show portal hypertensive gastropathy. At the same time he underwent
colonoscopy with removal of a large benign polyp from hepatic flexure and an adenoma removed from the descending colon, which led to a slow ooze and subsequent hospital admission with resolution upon repeat colonoscopy in May. At the time of
discharge he was having some red blood thought to be secondary to hemorrhoids and was advised on hemorrhoid care. He was also advised to continue on twice daily PPI and have an outpatient evaluation by hematology due to his recurrent anemia. He
has required multiple blood transfusions and platelet infusions over the course of the past year due to recurrent bleeding. Today he reports that he has had significant weakness and lethargy over the past several days. He also notes that he was
increasingly confused similar to prior admissions when he was severely anemic. He reports that he had stopped lactulose about 1-1/2 weeks ago after he had started back on Xifaxan. He notes that he is having 1-2 bowel movements a day that alternate
with formed and looser stools. He denies any overt melena or hematochezia, but his Cherise does report that his stool appeared black. He was also incontinent of stool today which is unusual for him. He denies any overt heartburn or dysphagia
symptoms. He denies any nausea or vomiting. He does take Protonix once daily. He denies any overt abdominal pain but but does report that his abdomen was somewhat more distended than usual. He admits to weight gain although he cannot quantify
how much weight. He notes chronic right lower extremity edema greater than the left in his feet. He denies any fevers but does report always feeling cold. He was supposed to see Dr. Victoria seen today but instead came to the emergency room given his
ongoing symptoms. He denies any blood thinners, use of NSAIDs, or alcohol use. Routine labs on admission showed a hemoglobin of 5.7, hematocrit 16.8, WBC 6.4, platelets 114,000, sodium 133, potassium 4.6, BUN 36, creatinine 1.1, total bilirubin
1.8, AST 44, ALT 18, alk phos 102, ammonia 57, albumin 2.5. Urinalysis with increased WBCs concerning for possible UTI. He underwent paracentesis with 6 L removed cell counts negative for SBP. Since his blood transfusion and paracentesis his
mentation has improved. He is awake alert and oriented. He is being admitted for further evaluation by GI for his severe anemia.
Past Medical History
Past Medical History: COPD, CVA, GERD, HTN and Other (Decompensated alcoholic/hepatitis C cirrhosis with ascites and HE, ETOH abuse, chronic thrombocytopenia, cigarette smoker, chronic hyponatremia, hepatitis C status posttreatment with Epclusa and
eradication, chronic pain syndrome, anxiety, insomnia, History of GI bleed secondary to portal hypertensi)
Past Surgical History: Other (colon polyp with post-polypectomy bleed, spinal leak with patch, tooth extraction)
Social History
Tobacco: Smoker
Alcohol: Former (former alcoholic)
Drug: None
Personal:
Living: With Family
Family History
Family History: Reviewed & Not Pertinent
Allergies / Home Medications
Allergy/AdvReac Type Severity Reaction Status Date / Time
No Known Allergies Allergy Verified 06/28/24 10:27
�Medication �Instructions �Recorded
alprazolam 1 mg tablet 1 mg PO BID anxiety 03/13/24
furosemide 40 mg tablet (Lasix) 40 mg PO DAILY Fluid 03/13/24
Retention/Swelling
thiamine HCl (vitamin B1) 100 mg 100 mg PO DAILY Supplement 03/13/24
tablet
budesonide 160 mcg-glycopyr 9 2 inh inhalation R BID 04/11/24
mcg-formot 4.8 mcg/actuation HFA Lung/Breathing Issues
inhaler (Breztri Aerosphere)
spironolactone 50 mg tablet 50 mg PO DAILY Liver Issues 04/17/24
magnesium oxide 400 mg PO BID 06/28/24
pantoprazole 40 mg tablet,delayed 40 mg PO DAILY 06/28/24
release (Protonix)
rifaximin 550 mg tablet (Xifaxan) 550 mg PO BID 06/28/24
tramadol 50 mg tablet 50 mg PO BIDPRN PRN severe pain 06/28/24
Review of Systems
-
History Source: Patient and Family
Constitutional: Reports Fatigue
EENT: Reports No Symptoms
Respiratory: Reports No Symptoms
Cardiac: Reports No Symptoms
Abdomen/GI: Reports Black Stools
: Reports No Symptoms
Musculoskeletal: Reports No Symptoms
Skin: Reports No Symptoms
Neurological: Reports Weakness and Other (confusion)
Endocrine: Reports No Symptoms
Vital Signs
Temp Pulse Resp BP Pulse Ox
98.7 F 108 18 132/67 96
06/28/24 13:36 06/28/24 13:36 06/28/24 13:36 06/28/24 13:36 06/28/24 13:36
Physical Exam
Exam
General: Other (chronically ill appearing male in NAD)
HEENT: Normocephalic, Anicteric and Atraumatic
Respiratory: Clear
Cardiac: S1/S2 and Regular Rhythm
Breast: Deferred by me
GI: Soft, Non Tender, Normal Bowel Sounds and Distended (softly distended)
Rectal: Black (per pt (no stool on rectal exam))
Musculoskeletal: No Edema
Skin: Warm and Dry
Neuro: Awake, Alert and Other (+asterixis)
Psych: Calm
Results
WBC 6.4 10^3/uL (4.8-10.8) 06/28/24 11:57
Hgb 5.7 g/dL (13.0-18.0) L* D 06/28/24 11:57
Hct 16.8 % (39.0-52.0) L* 06/28/24 11:57
MCV 84.8 fL (80.0-94.0) 06/28/24 11:57
Plt Count 114 10^3/uL (130-400) L 06/28/24 11:57
Absolute Neuts (auto) 4.4 10^3/uL (1.4-6.5) 06/28/24 11:57
PT 17.2 Sec (11.4-14.6) H 06/28/24 12:29
INR 1.40 06/28/24 12:29
Sodium 133 mmol/L (135-145) L 06/28/24 11:57
Potassium 4.6 mmol/L (3.5-5.1) 06/28/24 11:57
Chloride 103 mmol/L (98-107) 06/28/24 11:57
Carbon Dioxide 25 mmol/L (22-30) 06/28/24 11:57
BUN 36 mg/dl (9-20) H 06/28/24 11:57
Creatinine 1.1 mg/dL (0.7-1.3) 06/28/24 11:57
Calcium 8.5 mg/dl (8.4-10.2) 06/28/24 11:57
Total Bilirubin 1.8 mg/dl (0.2-1.3) H 06/28/24 11:57
AST 44 U/L (17-59) 06/28/24 11:57
ALT 18 U/L (0-50) 06/28/24 11:57
Alkaline Phosphatase 102 U/L (38-126) 06/28/24 11:57
Prior GI Procedures:
EGD: Colonoscopy 04/13/2024-[facility] - One 15 to 18 mm polyp at the hepatic flexure,
removed using lift and cut and a hot snare and removed
with a cold snare. Resected and retrieved. Injected.
Treated with hot biopsy forceps. Ligated.
- One 4 mm polyp in the descending colon, removed with
a hot snare. Resected and retrieved. Clip was placed.
- Diverticulosis in the sigmoid colon, in the
descending colon and at the splenic flexure.
bx DC -TA and HF - HP polyp
EGD 04/13/2024� [facility] - No gross lesions in the entire esophagus. No varices.
- Z-line variable, 42 cm from the incisors.
- Portal hypertensive gastropathy.
- Normal examined duodenum.
- No specimens collected.
EGD:12/27/22 [facility] - Normal esophagus.
- Portal hypertensive gastropathy.
- Normal examined duodenum.
- No specimens collected.
04/11/2024 MRI Abd with and without:
IMPRESSION: Examination limited by motion artifact. CT may be useful as the next surveillance imaging examination, as perhaps there would be less motion artifact. Given this limitation, there is no MR evidence for hepatocellular carcinoma. Findings
of cirrhosis with ascites, splenomegaly, and prominent varices within the abdomen, and extending around the distal esophagus.
05/07/[address] Smith : - Hemorrhoids found on perianal exam.
- The examined portion of the ileum was normal.
- Foreign body ([employer] clip) at the hepatic flexure.
- Polypoid lesion at the hepatic flexure.
- Diverticulosis in the sigmoid colon and in the
descending colon.
- Internal hemorrhoids.
- No specimens collected.
Assessment / Plan
-
The patient is a 59-year-old male with a past medical history significant for decompensated cirrhosis with ascites and hepatic encephalopathy with prior history of alcohol abuse, history of hep C with eradication with Epclusa elevated AFP with
negative MRI, GERD, chronic thrombocytopenia, hypertension, CVA, colon polyps, anxiety, history of GI bleed secondary to portal hypertensive gastropathy with evidence of gastric and lower esophageal varices on MRI previously (no varices on EGD seen
in April), BERRY, Klebsiella pneumonia, recurrent hospitalizations due to drop of hemoglobin, who presented to the emergency room with complaints of generalized weakness found to have severe anemia, which we are being asked to evaluate for. He has had
numerous hospitalizations due to recurrent anemia thought to be secondary to his cirrhosis with evidence of portal hypertensive gastropathy. Also had bleeding post polypectomy, but with repeat colonoscopy did not show any active bleeding. He has
had numerous blood transfusions. Most recent admission 2 weeks ago for recurrent anemia status post blood transfusion. It was thought that he had some hemorrhoidal bleeding and was advised on sitz bath's and Preparation H which she has done and
have been helpful. He reportedly now is having melena with a drop of hemoglobin to 5.7. Also with increasing confusion and lethargy likely secondary to possible bleeding. Prior MRI imaging suggested distal esophageal varices along with gastric
varices. His ammonia level was elevated at 57 and he was started on lactulose. This was discontinued outpatient when he started back on Xifaxan.
Problem list:
-acute on chronic hepatic encephalopathy, ammonia 57
-Decompensated alcoholic/Hep C cirrhosis, MELD 3.0= 17, with HE and ascites
-recurrent normocytic Anemia, Hgb 5.7
-Chronic thrombocytopenia, stable
-Chronic hyponatremia-> 133
-elevated bilirubin 2/2 cirrhosis
-Elevated AFP with neg MRI
-Hx Hep C s/p tx with Epclusa with SVR
-abnormal UA
-elevated BUN
Other pertinent medical history:
-Chronic pain
-GERD
-Hypertension
-Anxiety
Recommendations:
-Etiology of his anemia is likely multifactorial secondary to portal hypertensive gastropathy versus underlying hematologic disorder versus other. Cannot exclude esophageal or gastric varices as cause given findings on prior MRI with his melena.
-Would recommend EGD for further evaluation
-Continue PPI gtt. Will add octreotide gtt as well
-Agree with transfusion. Trend H/H with goal for hgb >7, avoid over transfusion
-Recommend hematology eval if EGD is unrevealing
-Will order IV albumin with 6L removed. Neg SBP
-Continue Lactulose 20g TID (titrate for 2-3 BM daily) and Xifaxan 550mg BID (HE WILL NEED BOTH AT DISCHARGE, likely can reduce lactulose dosing as his mentation is improved)
-OK for CLD tonight and NPO after MN for EGD
-Continue Lasix 40 mg daily and Aldactone 50 mg po daily, montior renal function
-OP follow-up with Dr. Dan at [place] after discharge
-Agree with palliative evaluation given his recurrent admissions and severe liver disease. His is agreeable to this.
-Further management pending above
Data Reviewed
-
Old Records: Reviewed
-
-
Thank you for consultation and allowing me to participate in the patient's care. Please call the coroner transport technician GI physician during the after hours with any questions or concerns.
[2024-06-28 15:35] LABS: Body Fluid pH 7.51
[2024-06-28 15:44] LABS: Body Fluid Glucose 114 mg/dl; Body Fluid LDH < 90 U/L
[2024-06-28 15:56] LABS: Body Fluid WBC 69 /CUMM
[2024-06-28] MEDS: DUPHALAC/CHRONULAC 20 GRAMS PO ×2 (17:17→22:18)
[2024-06-28 17:22] LABS: Body Fluid Second Tech CMC
[2024-06-28] MEDS: SANDOSTATIN 500.6 MCG IV (17:59)
--- NOTE | 2024-06-28 18:25 | PTCARENOTE ---
Received pt into room 3352. Pt just finished 1st unit of blood on arrival. White sheet sent to blood bank for rectification. 2nd unit infusing and no reaction noted. Pt is aaox3 on arrival, able to answer all questions but patient's Cherise on the
phone and advised he was confused prior to admission. Admission information obtained by Cherise on the phone. Cherise also tearful as she reports she is agreeable to palliative care consult. Patient argumentative with on phone. Patient unsatisfied
with clear liquid diet for dinner. Assessment, care and VS as charted.
[2024-06-28] MEDS: XIFAXAN 550 MG PO (19:58)
[2024-06-28] MEDS: XANAX 1 MG PO (19:58)
[2024-06-28] MEDS: MAGNESIUM OXIDE 500 MG PO (19:58)
[2024-06-28] MEDS: SYMBICORT 160/4.5 MCG INHALER 2 PUFF INH (20:39)
--- NOTE | 2024-06-28 21:03 | PTCARENOTE ---
Second unit of PRBC finished. Pt offers no complaints. VSS. Plan to recheck H/H in one hour.
[2024-06-28] MEDS: FLEXBUMIN 50 IV (21:22)
[2024-06-28] MEDS: FLEXBUMIN 100 IV (22:18)
[2024-06-28 22:33] LABS: Hemoglobin 6.9 g/dL (13.0-18.0)
--- NOTE | 2024-06-28 22:50 | W.PN.UPDATE ---
Update Note
Progress Note Update
Hgb level is 6.9 after receiving 2 units of blood. Will order one unit of blood and continue monitoring of h&h.
[2024-06-29] VITALS (34 sets, daily range): BP systolic 104–133; BP diastolic 57–78; BMI 25.2
[2024-06-29] MEDS: PROTONIX 100 IV ×3 (00:20→19:55)
--- NOTE | 2024-06-29 00:59 | PTCARENOTE ---
2233: Critical H/H results reported to MARCIA Baptiste. Order for 1 unit PRBC received.
Pt updated on plan of care and upset that he wont be able to sleep tonight. Pt asked for another dose of Xanax.
ETHNIC STUDIES PROFESSOR made aware and opted not to add additional dose of Xanax. Pt then asked for tramadol instead.
0055: Third unit of PRBCs started.
--Pt with multiple requests at at time... asking for nicotine patch while 2 RNs verification of blood. Pt also asking for another tramadol; These request were relayed to MARCIA Baptiste.
Pt appreciative of care.
--- NOTE | 2024-06-29 01:18 | PTCARENOTE ---
Addendum entered by Fide Sánchez RN 06/29/24 03:22:
Third unit of PRBC finished, pt offers no complaints. VSS. Call caballero left within reach.
Original Note:
Patient tolerating blood at 15 minute check. NO s/s of reaction. VSS. Call caballero left within reach.
[2024-06-29] MEDS: ULTRAM 25 MG PO (02:31)
[2024-06-29] MEDS: SANDOSTATIN 500.6 MCG IV ×2 (05:44→17:38)
[2024-06-29 06:19] LABS: Hematocrit 20.6 % (39.0-52.0); Hemoglobin 7.1 g/dL (13.0-18.0); Mean Corp Hgb Conc. 34.5 g/dL (33.0-37.0); Mean Corpuscular Hgb 28.5 pg (27.0-31.0); Mean Corpuscular Volume 82.7 fL (80.0-94.0); Mean Platelet Volume 9.5 fL (7.4-10.4); Platelet Count 69 10^3/uL (130-400); Red Blood Cell Count 2.49 10^6/uL (4.70-6.10); Red Cell Dist. Width 18.7 % (11.5-14.5)
[2024-06-29 06:26] LABS: Blood Urea Nitrogen 32 mg/dl (9-20); Calcium 7.9 mg/dl (8.4-10.2); Carbon Dioxide 24 mmol/L (22-30); Chloride 105 mmol/L (98-107); Estimated Creatinine Clearance 73 ml/min; Glucose 81 mg/dl (70-99); Potassium 4.4 mmol/L (3.5-5.1); Sodium 135 mmol/L (135-145); eGFR > 60.00
--- NOTE | 2024-06-29 06:28 | PTCARENOTE ---
Critical hematocrit reported to MARCAI Lacey
[2024-06-29] MEDS: SYMBICORT 160/4.5 MCG INHALER 2 PUFF INH (07:55)
[2024-06-29] MEDS: SPIRIVA RESPIMAT 2.5 MCG 2 PUFF INH (07:55)
--- NOTE | 2024-06-29 10:28 | W.PN.HOSP.TC ---
Addendum entered and electronically signed by Jhonny Merlos MD 06/29/24 11:08:
I saw and evaluated the patient. I reviewed the resident�s note and agree with findings and plan as documented in the resident�s note.
Reports dark stool overnight. Denies chest pain or shortness of breath.
Gen: NAD, AAOx3, appears chronically ill.
Eyes: EOMI, PERRLA, no scleral icterus.
Neck: supple.
CV: RRR, +S1/S2, no m/r/g.
Resp: CTAB, no rales, wheezes, or rhonchi.
Abd: +BS, soft, NT, minimal distention with ascites
Skin: No rashes.
Neuro: remains CN 2-12 intact, non-focal.
Psych: Normal mood and affect.
Acute on chronic blood loss anemia:
-Patient has known portal hypertensive gastropathy and likely has acute on chronic blood loss anemia due to oozing from portal hypertensive gastropathy
-GI following, for EGD today
-cont PPI/Octreotide gtts
-NPO except meds
-NS @ 40cc/hr
Decompensated cirrhosis:
-Underlying cirrhosis due to alcohol abuse as well as hepatitis C s/p Tx with Epclusa
-acute hepatic encephalopathy POA, Lactulose restarted
-s/p paracentesis 06/28/24, no SBP by fluid studies
Total time spent on today's encounter was 50 minutes which included time spent in counseling the patient/family regarding diagnosis and treatment plan as listed above, goals of care, and symptom management. Case was discussed with nursing staff,
specialists, and care coordinators/case management. All labs and imaging personally reviewed by me. Remainder the time spent in detailed review of previous records, lab data, imaging, and other medical provider documentation.
Original Note:
Today's Communication/Plan
-
Plan for EGD today
Transfuse 1 unit PRBC
Palliative care consult
Assessment / Plan
Assessment / Plan
IMPRESSION: 59-year-old male with past history of cirrhosis secondary to hep C/EtOH use, GI bleeding due to portal gastropathy, ascites, hypertension, COPD presenting with generalized weakness, confusion and dark stools. Discussed with patient and
family, interested in palliative care.
PLAN:
Lower GI bleeding
- Likely in the setting of underlying cirrhosis
- GI following, plan for EGD today to evaluate for varices, portal gastropathy, PUD
- Hemoglobin 7.1 today s/p 3 units PRBC, transfuse 1 unit PRBC today
- N.p.o. for EGD
- Continue IV PPI and octreotide
Hepatic encephalopathy (acute on chronic)
- Continue lactulose and Xifaxan
- Ammonia 57
Recurrent anemia
- Hemoglobin 7.1 s/p 3 units PRBC, transfuse 1 unit PRBC today
- Hematology evaluation if EGD unrevealing
Ascites
- Secondary to cirrhosis
- IR consulted for paracentesis
Chronic thrombocytopenia
- Stable
Hypertension
- Continue Lasix and Aldactone
COPD
- No acute exacerbation
- Continue home meds
Anxiety
- Continue alprazolam
DVT prophylaxis SCDs
Full code
Anticipated Discharge: > 48 hours
Subjective/Interval History
-
Date of Service: June 29, 2024
Objective Data
-
Labs:
Laboratory Results
06/28/24 06/29/24
22:11 05:42
WBC 3.0 L
Hgb 6.9 L* D 7.1 L
Hct 20.0 L* 20.6 L*
Plt Count 69 L D
Sodium 135
Potassium 4.4
Chloride 105
Carbon Dioxide 24
BUN 32 H
Creatinine 1.1
Glucose 81
Calcium 7.9 L
Vital Signs:
Vital Signs
Temp Pulse Resp BP Pulse Ox
98.2 F 90 16 118/73 95
06/29/24 10:17 06/29/24 10:17 06/29/24 10:17 06/29/24 10:17 06/29/24 08:01
I&O
06/28/24 06/29/24 06/30/24
06:59 06:59 06:59
Intake Total 890 / 890 0 / 0
Output Total 850 / 850
Balance 40 / 40 0 / 0
[2024-06-29] MEDS: DUPHALAC/CHRONULAC PO ×3 (10:57→21:41)
[2024-06-29] MEDS: ALDACTONE PO (10:57)
[2024-06-29] MEDS: VITAMIN B1 PO (10:58)
[2024-06-29] MEDS: LASIX PO (10:58)
[2024-06-29] MEDS: MAGNESIUM OXIDE PO (10:58)
[2024-06-29] MEDS: XIFAXAN PO (10:59)
[2024-06-29] MEDS: XANAX PO (10:59)
--- NOTE | 2024-06-29 10:59 | PTCARENOTE ---
Held 0800 medications per GI RN. Pt NPO for EGD.
--- NOTE | 2024-06-29 11:28 | CM ---
Patient seen at bedside. Patient stated that he lives in a 2 story home with his . Patient stated that his bedroom was on the first floor, and complained that it was like a foot locker- very cold. Patient stated that he has a cane and is
driving. Patient PCP is Dr. Goss and he uses the [facility] in [place]. Patient stated that he is anticipating money from an traffic law attorney but he accepted the information regarding resources on [email or web address]. Patient is for a test today. Patient
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 CM will continue to follow for discharge planning needs.
Plan; home with VN vs home with no needs.
--- NOTE | 2024-06-29 12:43 | PTCARENOTE ---
1 unit of PRBC infused, pt tolerated. Pt transported to GI lab via stretcher with RN.
[2024-06-29 13:27] LABS: ALT (SGPT) 15 U/L (0-50); AST (SGOT) 39 U/L (17-59); Albumin 2.3 g/dl (3.5-5.0); Alkaline Phosphatase 54 U/L (38-126); Direct Bilirubin 0.7 mg/dl (0.0-0.4); Total Bilirubin 3.2 mg/dl (0.2-1.3); Total Protein 4.1 g/dl (6.3-8.2)
[2024-06-29] MEDS: XANAX 0.5 MG PO (14:27)
[2024-06-29 15:39] LABS: Hematocrit 26.5 % (39.0-52.0)
[2024-06-29] MEDS: ULTRAM 50 MG PO ×2 (16:33→23:55)
--- NOTE | 2024-06-29 16:57 | PTCARENOTE ---
Pt refused his lactulose despite extensive education. Spoke to pt who states 'He does not take that'. made aware via TT.
[2024-06-29] MEDS: NSS 1000 IV (17:34)
[2024-06-29] MEDS: XANAX 1 MG PO (17:39)
[2024-06-29] MEDS: XIFAXAN 550 MG PO (19:57)
[2024-06-29] MEDS: MAGNESIUM OXIDE 500 MG PO (19:57)
[2024-06-29] MEDS: SYMBICORT 160/4.5 MCG INHALER INH (20:17)
[2024-06-30] VITALS (17 sets, daily range): BP systolic 110–130; BP diastolic 53–102; PULSE 78–86; O2SAT 94–95; BMI 25.7; BMI 25.9
--- NOTE | 2024-06-30 02:44 | PTCARENOTE ---
Pt resting in bed on assessment. AAOx3. Anxious. Admits to RLQ tenderness otherwise no c/o pain. VSS. Afebrile. SR on CM. POX 94% on RA. Refused HS Lactulose. Stated 'I'll take it tomorrow.' Had 1 soft brown BM overnight. Abdomen tender, distended,
round. +BS. Passing flatus. Using urinal to void. Rest of assessment as documented. Turns self in bed. Call caballero within reach and using. Will continue to monitor.
[2024-06-30] MEDS: SANDOSTATIN 500.6 MCG IV (05:10)
[2024-06-30] MEDS: PROTONIX 100 IV ×3 (05:10→20:32)
[2024-06-30 05:44] LABS: % Basophils 0.8 % (0-2); % Eosinophils 3.1 % (0-6); % Immature Granulocytes 0.3 % (0-0.5); % Lymphocytes 21.5 % (20.5-51.1); % Neutrophils 64.3 % (42.2-75.2); Absolute Eosinophils 0.1 10^3/uL (0-0.7); Absolute Lymphocytes 0.8 10^3/uL (1.2-3.4); Absolute Monocytes 0.4 10^3/uL (0.1-0.6); Absolute Neutrophils 2.5 10^3/uL (1.4-6.5); Hematocrit 24.9 % (39.0-52.0); Hemoglobin 8.6 g/dL (13.0-18.0); Mean Corp Hgb Conc. 34.5 g/dL (33.0-37.0); Mean Corpuscular Hgb 30.4 pg (27.0-31.0); Mean Platelet Volume 9.4 fL (7.4-10.4); Nucleated Red Blood Cells % 0 % (-); Platelet Count 62 10^3/uL (130-400); Red Blood Cell Count 2.83 10^6/uL (4.70-6.10); Red Cell Dist. Width 18.4 % (11.5-14.5); White Blood Cell Count 3.8 10^3/uL (4.8-10.8)
[2024-06-30 05:56] LABS: ALT (SGPT) 17 U/L (0-50); AST (SGOT) 43 U/L (17-59); Albumin 2.4 g/dl (3.5-5.0); Alkaline Phosphatase 52 U/L (38-126); Blood Urea Nitrogen 23 mg/dl (9-20); Calcium 7.7 mg/dl (8.4-10.2); Carbon Dioxide 21 mmol/L (22-30); Chloride 109 mmol/L (98-107); Estimated Creatinine Clearance 80 ml/min; Glucose 103 mg/dl (70-99); Potassium 4.1 mmol/L (3.5-5.1); Sodium 136 mmol/L (135-145); Total Bilirubin 3.1 mg/dl (0.2-1.3); Total Protein 4.3 g/dl (6.3-8.2); eGFR > 60.00
[2024-06-30] MEDS: SPIRIVA RESPIMAT 2.5 MCG 2 PUFF INH (07:30)
[2024-06-30] MEDS: SYMBICORT 160/4.5 MCG INHALER 2 PUFF INH (07:30)
[2024-06-30] MEDS: DUPHALAC/CHRONULAC PO ×3 (08:04→20:20)
[2024-06-30] MEDS: LASIX 40 MG PO (08:08)
[2024-06-30] MEDS: VITAMIN B1 100 MG PO (08:08)
[2024-06-30] MEDS: ALDACTONE 50 MG PO (08:08)
[2024-06-30] MEDS: XANAX 1 MG PO ×2 (08:09→17:52)
[2024-06-30] MEDS: XIFAXAN 550 MG PO ×2 (08:09→20:21)
[2024-06-30] MEDS: MAGNESIUM OXIDE 500 MG PO ×2 (08:09→20:21)
--- NOTE | 2024-06-30 10:49 | W.PN.HOSP.TC ---
Addendum entered and electronically signed by Jhonny Merlos MD 06/30/24 11:05:
I saw and evaluated the patient. I reviewed the resident�s note and agree with findings and plan as documented in the resident�s note.
Reports dark stool overnight. Denies chest pain or shortness of breath.
Gen: NAD, AAOx3, appears chronically ill.
Eyes: EOMI, PERRLA, no scleral icterus.
Neck: supple.
CV: RRR, +S1/S2, no m/r/g.
Resp: CTAB, no rales, wheezes, or rhonchi.
Abd: +BS, soft, NT, minimal distention with ascites
Skin: No rashes.
Neuro: remains CN 2-12 intact, non-focal.
Psych: Normal mood and affect.
Acute on chronic blood loss anemia:
-Patient has known portal hypertensive gastropathy and likely has acute on chronic blood loss anemia due to oozing from portal hypertensive gastropathy
-GI following
-EGD 06/29/24: Normal esophagus, portal hypertensive gastropathy, normal duodenum
-cont PPI/Octreotide gtts
-Diet restarted
-Stop IV fluids
Decompensated cirrhosis:
-Underlying cirrhosis due to alcohol abuse as well as hepatitis C s/p Tx with Epclusa
-acute hepatic encephalopathy POA, Lactulose restarted (pt has been refusing doses)
-s/p paracentesis 06/28/24, no SBP by fluid studies
Original Note:
Today's Communication/Plan
-
Continue PPI and octreotide
GI following
Follow clinically
Assessment / Plan
Assessment / Plan
IMPRESSION: 59-year-old male with past history of cirrhosis secondary to hep C/EtOH use, GI bleeding due to portal gastropathy, ascites, hypertension, COPD presenting with generalized weakness, confusion and dark stools. Patient reports no blood in
stool/melena.
PLAN:
Lower GI bleeding
- Likely in the setting of underlying cirrhosis
- GI following
- Hemoglobin 8.6 today s/p 4 units PRBC
- EGD showed portal hypertensive gastropathy, esophagus normal, duodenum normal
- Continue IV PPI and octreotide
Hepatic encephalopathy (acute on chronic)
- Continue lactulose and Xifaxan
- Ammonia 57
Recurrent anemia
- Hemoglobin 8.6 s/p 4 units PRBC
- Hematology evaluation if EGD unrevealing
Ascites
- Secondary to cirrhosis
- status post paracentesis - 6L
- SBP not evident on fluid analysis
- Culture no growth
- Weight 81.3 kg today
Chronic thrombocytopenia
- Stable
Hypertension
- Continue Lasix and Aldactone
COPD
- No acute exacerbation
- Continue home meds
Anxiety
- Continue alprazolam
DVT prophylaxis SCDs
Full code
Anticipated Discharge: 24 - 48 hours
Subjective/Interval History
-
Date of Service: June 30, 2024
Objective Data
-
Labs:
Laboratory Results
06/30/24
05:19
WBC 3.8 L
Hgb 8.6 L
Hct 24.9 L
Plt Count 62 L
Sodium 136
Potassium 4.1
Chloride 109 H
Carbon Dioxide 21 L
BUN 23 H
Creatinine 1.0
Glucose 103 H
Calcium 7.7 L
Total Bilirubin 3.1 H
AST 43
ALT 17
Alkaline Phosphatase 52
Vital Signs:
Vital Signs
Temp Pulse Resp BP Pulse Ox
98.5 F 86 14 118/102 94
06/30/24 07:50 06/30/24 08:08 06/30/24 07:34 06/30/24 08:08 06/30/24 02:45
I&O
06/29/24 06/30/24 07/01/24
06:59 06:59 06:59
Intake Total 890 / 890 2130 / 2130 240 / 240
Output Total 850 / 850 685 / 685 450 / 450
Balance 40 / 40 1445 / 1445 -210 / -210
Review of Systems
-
History Source: Patient
Constitutional: Reports No Symptoms
Respiratory: Reports No Symptoms
Abdomen/GI: Reports Abdominal Pain and Bloody Stools
Physical Exam
-
General: Appears Chronically Ill
Cardiac: Regular Rhythm and S1/S2
GI: Distended
Neuro: AO x 3
[2024-06-30] MEDS: ULTRAM 50 MG PO ×2 (13:07→23:08)
--- NOTE | 2024-06-30 15:01 | PTCARENOTE ---
Rec'd pt this AM. refused lactulose. some incontinent episodes. Requires frequent education regarding med regimen and fall risk.vital signs stable. GI d.c octreotide. Pt downgraded to M/S
--- NOTE | 2024-06-30 16:02 | W.PN.GI.CBS2 ---
Today's Communication / Plan
-
stop octreotide
Assessment / Plan
-
The patient is a 59-year-old male with a past medical history significant for decompensated cirrhosis with ascites and hepatic encephalopathy with prior history of alcohol abuse, history of hep C with eradication with Epclusa elevated AFP with
negative MRI, GERD, chronic thrombocytopenia, hypertension, CVA, colon polyps, anxiety, history of GI bleed secondary to portal hypertensive gastropathy with evidence of gastric and lower esophageal varices on MRI previously (no varices on EGD seen
in April), BERRY, Klebsiella pneumonia, recurrent hospitalizations due to drop of hemoglobin, who presented to the emergency room with complaints of generalized weakness found to have severe anemia, which we are being asked to evaluate for. He has had
numerous hospitalizations due to recurrent anemia thought to be secondary to his cirrhosis with evidence of portal hypertensive gastropathy. Also had bleeding post polypectomy, but with repeat colonoscopy did not show any active bleeding. He has
had numerous blood transfusions. Most recent admission 2 weeks ago for recurrent anemia status post blood transfusion. It was thought that he had some hemorrhoidal bleeding and was advised on sitz bath's and Preparation H which she has done and
have been helpful. He reportedly now is having melena with a drop of hemoglobin to 5.7. Also with increasing confusion and lethargy likely secondary to possible bleeding. Prior MRI imaging suggested distal esophageal varices along with gastric
varices. His ammonia level was elevated at 57 and he was started on lactulose. This was discontinued outpatient when he started back on Xifaxan.
Problem list:
-acute on chronic hepatic encephalopathy, ammonia 57
-Decompensated alcoholic/Hep C cirrhosis, MELD 3.0= 17, with HE and ascites
-recurrent normocytic Anemia, Hgb 5.7
-Chronic thrombocytopenia, stable
-Chronic hyponatremia-> 133
-elevated bilirubin 2/2 cirrhosis
-Elevated AFP with neg MRI
-Hx Hep C s/p tx with Epclusa with SVR
-abnormal UA
-elevated BUN
Other pertinent medical history:
-Chronic pain
-GERD
-Hypertension
-Anxiety
Recommendations:
-Stop octreotide
-PPI
-outpatient nonselective B-albina.
-Neg SBP
-Continue Lactulose 20g TID (titrate for 2-3 BM daily) and Xifaxan 550mg BID (HE WILL NEED BOTH AT DISCHARGE, likely can reduce lactulose dosing as his mentation is improved)
-Continue Lasix 40 mg daily and Aldactone 50 mg po daily, montior renal function
-OP follow-up with Dr. Dan at [place] after discharge
-Agree with palliative evaluation given his recurrent admissions and severe liver disease. His is agreeable to this.
-Further management pending above
Subjective
Subjective
Date of Service: June 30, 2024
Pt with no more bleeding
Objective
Data Reviewed
Laboratory Data:
Laboratory Results
06/30/24 05:19
06/30/24 05:19
Laboratory Results
PT 17.2 Sec (11.4-14.6) H 06/28/24 12:29
INR 1.40 06/28/24 12:29
Total Bilirubin 3.1 mg/dl (0.2-1.3) H 06/30/24 05:19
AST 43 U/L (17-59) 06/30/24 05:19
ALT 17 U/L (0-50) 06/30/24 05:19
Alkaline Phosphatase 52 U/L (38-126) 06/30/24 05:19
Vital Signs and I&O:
Vital Signs
Temp Pulse Resp BP Pulse Ox
98.2 F 80 16 121/67 96
06/30/24 11:20 06/30/24 14:00 06/30/24 14:00 06/30/24 14:00 06/30/24 14:00
I&O
06/29/24 06/30/24 07/01/24
06:59 06:59 06:59
Intake Total 890 / 890 2130 / 2130 480 / 480
Output Total 850 / 850 685 / 685 625 / 625
Balance 40 / 40 1445 / 1445 -145 / -145
Physical Exam
Physical Exam
GI: Soft and Non Tender
Neuro: Other (oriented but slow)
--- NOTE | 2024-06-30 16:48 | PTCARENOTE ---
Received pt. from IMU, Pt. AAOx3, no c/o pain, VSS at this time. Pt. resting in bed at this time. Call caballero in reach.
[2024-06-30] MEDS: SYMBICORT 160/4.5 MCG INHALER INH (19:55)
[2024-06-30] MEDS: LIDOCAINE 4% PATCH 2 PATCH TOPICAL (23:25)
[2024-07-01] MEDS: PROTONIX 100 IV (05:12)
[2024-07-01] MEDS: TUMS 1 TABLET PO (05:57)
[2024-07-01 06:00] VITALS: BMI 26.1
--- NOTE | 2024-07-01 06:00 | PTCARENOTE ---
Pt stating 'burning in my belly' [facility] [employer] SALES [employer]ANT notified order for TUMS given per order.
[2024-07-01 07:00] VITALS: BP 120/62
[2024-07-01] MEDS: SPIRIVA RESPIMAT 2.5 MCG 2 PUFF INH (07:46)
[2024-07-01] MEDS: SYMBICORT 160/4.5 MCG INHALER 2 PUFF INH (07:47)
[2024-07-01] MEDS: LASIX 40 MG PO (08:47)
[2024-07-01] MEDS: ALDACTONE 50 MG PO (08:47)
[2024-07-01] MEDS: XIFAXAN 550 MG PO (08:47)
[2024-07-01] MEDS: VITAMIN B1 100 MG PO (08:47)
[2024-07-01] MEDS: XANAX 1 MG PO (08:47)
[2024-07-01] MEDS: MAGNESIUM OXIDE 500 MG PO (08:47)
[2024-07-01] MEDS: DUPHALAC/CHRONULAC PO (08:48)
[2024-07-01 09:28] LABS: Hematocrit 24.9 % (39.0-52.0); Hemoglobin 8.3 g/dL (13.0-18.0); Mean Corp Hgb Conc. 33.3 g/dL (33.0-37.0); Mean Corpuscular Hgb 28.8 pg (27.0-31.0); Mean Corpuscular Volume 86.5 fL (80.0-94.0); Mean Platelet Volume 9.9 fL (7.4-10.4); Platelet Count 77 10^3/uL (130-400); Red Blood Cell Count 2.88 10^6/uL (4.70-6.10); Red Cell Dist. Width 18.3 % (11.5-14.5); White Blood Cell Count 4.4 10^3/uL (4.8-10.8)
[2024-07-01 09:34] LABS: ALT (SGPT) 18 U/L (0-50); AST (SGOT) 48 U/L (17-59); Albumin 2.5 g/dl (3.5-5.0); Alkaline Phosphatase 49 U/L (38-126); Blood Urea Nitrogen 17 mg/dl (9-20); Calcium 7.7 mg/dl (8.4-10.2); Carbon Dioxide 20 mmol/L (22-30); Chloride 107 mmol/L (98-107); Estimated Creatinine Clearance 89 ml/min; Glucose 141 mg/dl (70-99); Potassium 3.8 mmol/L (3.5-5.1); Sodium 134 mmol/L (135-145); Total Bilirubin 2.8 mg/dl (0.2-1.3); Total Protein 4.4 g/dl (6.3-8.2); eGFR > 60.00
--- NOTE | 2024-07-01 10:11 | W.PN.HOSP.TC ---
Addendum entered and electronically signed by Jhonny Merlos MD 07/01/24 11:08:
I saw and evaluated the patient. I reviewed the resident�s note and agree with findings and plan as documented in the resident�s note.
No new complaints.
Gen: NAD, AAOx3, appears chronically ill.
Eyes: EOMI, PERRLA, no scleral icterus.
Neck: supple.
CV: remains RRR, +S1/S2, no m/r/g.
Resp: CTAB, no rales, wheezes, or rhonchi.
Abd: +BS, soft, NT, mod distention with ascites
Skin: No rashes.
Neuro: continues to remain CN 2-12 intact, non-focal.
Psych: Normal mood and affect.
Acute on chronic blood loss anemia:
-Patient has known portal hypertensive gastropathy and likely has acute on chronic blood loss anemia due to oozing from portal hypertensive gastropathy
-GI following
-EGD 06/29/24: Normal esophagus, portal hypertensive gastropathy, normal duodenum
-was on Octreotide gtt, now off
-off IVFs
-currently on Protonix gtt, transition to PO Protonix
-Diet restarted
-appreciate GI, medically cleared for d/c
Decompensated cirrhosis:
-Underlying cirrhosis due to alcohol abuse as well as hepatitis C s/p Tx with Epclusa
-acute hepatic encephalopathy POA, Lactulose restarted (pt has been refusing doses)
-s/p paracentesis 06/28/24, no SBP by fluid studies
Medically cleared for discharge.
Total time spent on d/c = 34 min. This included today's physical exam, progress note, review of laboratory and diagnostic data, preparation of discharge documents and prescriptions, and discussions about the pt's hospital course and discharge plan
with the patient and other outside medical sales representative involved in the patient's care.
Original Note:
Today's Communication/Plan
-
Continue lactulose and Xifaxan
Continue PPI
Outpatient follow-up
Assessment / Plan
Assessment / Plan
IMPRESSION: 59-year-old male with past history of cirrhosis secondary to hep C/EtOH use, GI bleeding due to portal gastropathy, ascites, hypertension, COPD presenting with generalized weakness, confusion and dark stools. Patient reports no blood in
stool/melena. Patient is refusing lactulose.
PLAN:
Lower GI bleeding
- Likely in the setting of underlying cirrhosis
- GI following
- Hemoglobin 8.3 today s/p 4 units PRBC
- EGD showed portal hypertensive gastropathy, esophagus normal, duodenum normal
- Continue IV PPI. Octreotide held.
Hepatic encephalopathy (acute on chronic)
- Continue lactulose and Xifaxan
- Patient refusing lactulose.
- GI following, will need to take both Xifaxan and lactulose, outpatient nonselective beta-albina, outpatient follow-up with [facility] for management of cirrhosis
- Ammonia 57
Recurrent anemia
- Hemoglobin 8.6 s/p 4 units PRBC
- Hematology evaluation if EGD unrevealing
Ascites
- Secondary to cirrhosis
- status post paracentesis - 6L
- SBP not evident on fluid analysis
- Culture no growth
- Weight 82.3 kg today
Chronic thrombocytopenia
- Stable
Hypertension
- Continue Lasix and Aldactone
COPD
- No acute exacerbation
- Continue home meds
Anxiety
- Continue alprazolam
DVT prophylaxis SCDs
Full code
Anticipated Discharge: Within 24 hours
Subjective/Interval History
-
Date of Service: July 01, 2024
Objective Data
-
Labs:
Laboratory Results
07/01/24
08:28
WBC 4.4 L
Hgb 8.3 L
Hct 24.9 L
Plt Count 77 L D
Sodium 134 L
Potassium 3.8
Chloride 107
Carbon Dioxide 20 L
BUN 17
Creatinine 0.9
Glucose 141 H
Calcium 7.7 L
Total Bilirubin 2.8 H
AST 48
ALT 18
Alkaline Phosphatase 49
Vital Signs:
Vital Signs
Temp Pulse Resp BP Pulse Ox
98.2 F 78 16 120/62 93
07/01/24 07:00 07/01/24 07:52 07/01/24 07:52 07/01/24 07:00 07/01/24 07:52
I&O
06/30/24 07/01/24 07/02/24
06:59 06:59 06:59
Intake Total 2130 / 2130 960 / 960
Output Total 685 / 685 625 / 625
Balance 1445 / 1445 335 / 335
Review of Systems
-
History Source: Patient
Constitutional: Reports No Symptoms
Respiratory: Reports No Symptoms
Abdomen/GI: Reports Abdominal Pain and Bloody Stools
Physical Exam
-
General: Appears Chronically Ill
Cardiac: Regular Rhythm and S1/S2
GI: Distended
Neuro: AO x 3
--- NOTE | 2024-07-01 10:44 | W.PN.GI.CBS2 ---
Today's Communication / Plan
-
stable for d/c
Assessment / Plan
-
The patient is a 59-year-old male with a past medical history significant for decompensated cirrhosis with ascites and hepatic encephalopathy with prior history of alcohol abuse, history of hep C with eradication with Epclusa elevated AFP with
negative MRI, GERD, chronic thrombocytopenia, hypertension, CVA, colon polyps, anxiety, history of GI bleed secondary to portal hypertensive gastropathy with evidence of gastric and lower esophageal varices on MRI previously (no varices on EGD seen
in April), BERRY, Klebsiella pneumonia, recurrent hospitalizations due to drop of hemoglobin, who presented to the emergency room with complaints of generalized weakness found to have severe anemia, which we are being asked to evaluate for. He has had
numerous hospitalizations due to recurrent anemia thought to be secondary to his cirrhosis with evidence of portal hypertensive gastropathy. Also had bleeding post polypectomy, but with repeat colonoscopy did not show any active bleeding. He has
had numerous blood transfusions. Most recent admission 2 weeks ago for recurrent anemia status post blood transfusion. It was thought that he had some hemorrhoidal bleeding and was advised on sitz bath's and Preparation H which she has done and
have been helpful. He reportedly now is having melena with a drop of hemoglobin to 5.7. Also with increasing confusion and lethargy likely secondary to possible bleeding. Prior MRI imaging suggested distal esophageal varices along with gastric
varices. His ammonia level was elevated at 57 and he was started on lactulose. This was discontinued outpatient when he started back on Xifaxan.
Problem list:
-acute on chronic hepatic encephalopathy, ammonia 57
-Decompensated alcoholic/Hep C cirrhosis, MELD 3.0= 17, with HE and ascites
-recurrent normocytic Anemia, Hgb 5.7
-Chronic thrombocytopenia, stable
-Chronic hyponatremia-> 133
-elevated bilirubin 2/2 cirrhosis
-Elevated AFP with neg MRI
-Hx Hep C s/p tx with Epclusa with SVR
-abnormal UA
-elevated BUN
Other pertinent medical history:
-Chronic pain
-GERD
-Hypertension
-Anxiety
Recommendations:
- PPI bid
- lactulose, xifaxin
-Continue Lasix 40 mg daily and Aldactone 50 mg po daily,
-OP follow-up with Dr. Dan at [place] after discharge
ok for d/c
Subjective
Subjective
Date of Service: July 01, 2024
Pt w/o bleeding, eager to go home
Objective
Data Reviewed
Laboratory Data:
Laboratory Results
07/01/24 08:28
07/01/24 08:28
Laboratory Results
PT 17.2 Sec (11.4-14.6) H 06/28/24 12:29
INR 1.40 06/28/24 12:29
Total Bilirubin 2.8 mg/dl (0.2-1.3) H 07/01/24 08:28
AST 48 U/L (17-59) 07/01/24 08:28
ALT 18 U/L (0-50) 07/01/24 08:28
Alkaline Phosphatase 49 U/L (38-126) 07/01/24 08:28
Vital Signs and I&O:
Vital Signs
Temp Pulse Resp BP Pulse Ox
98.2 F 78 16 120/62 93
07/01/24 07:00 07/01/24 07:52 07/01/24 07:52 07/01/24 07:00 07/01/24 08:45
I&O
06/30/24 07/01/24 07/02/24
06:59 06:59 06:59
Intake Total 2130 / 2130 960 / 960
Output Total 685 / 685 625 / 625
Balance 1445 / 1445 335 / 335
Physical Exam
Physical Exam
GI: Soft and Distended (ascites)
Neuro: Non Focal (oriented)
--- NOTE | 2024-07-01 12:02 | W.DCSUMMARY ---
Addendum entered and electronically signed by Jhonny Merlos MD 07/01/24 14:14:
Read, reviewed, and agree. See same day progress note for additional details.
Original Note:
Discharge Summary
Discharge Data
Date of Admission: 06/28/24
Date of Discharge: 07/01/24
-
Pending Results: No
Hospital Course
Primary diagnosis:
Portal hypertensive gastropathy
Acute on chronic hepatic encephalopathy
Acute on chronic anemia
Decompensated cirrhosis
Hypertension
Secondary diagnosis:
Chronic thrombocytopenia
Anxiety
Gastroesophageal reflux disease
Hospital course: 59 y M with past history of alcoholic/HepC cirrhosis, ascites, hepatic encephalopathy, GI bleeding due to portal gastropathy, history of post polypectomy bleed presenting with confusion and generalized weakness. Patient had stopped
lactulose couple weeks prior to admission and reported dark stools. Ammonia was 57 on admission. Ultrasound-guided paracentesis was performed by IR (yielding 6 L of ascitic fluid), fluid analysis did not reveal SBP. Hemoglobin was initially
5.7, patient received 4 units PRBC. He was started on IV Protonix, lactulose, Xifaxan, and octreotide gtt. GI was following patient, EGD revealed normal esophagus, normal duodenum, and portal hypertensive gastropathy. Hemoglobin was stable, 8.3
at discharge. Octreotide was discontinued. Patient refused to take lactulose during stay at hospital, but was advised on the importance of compliance with rifaximin and lactulose after discharge.
Today, patient is medically stable to be discharged home with lactulose 20 mg 3 times daily (titrate for 2-3 bowel movements daily) and rifaximin 550 mg twice daily. Will need to continue home meds. Patient was advised on follow-up with
Sy at [facility] for liver transplant and management of decompensated cirrhosis. Patient's family advised to follow-up with palliative care.
Discharge Plan
-
Patient Disposition: Home (Routine Discharge)
Discharge Diagnosis/Procedures: Portal hypertensive gastropathy, acute on chronic hepatic encephalopathy, decompensated cirrhosis, paracentesis, esophagogastroduodenoscopy, acute on chronic anemia, chronic thrombocytopenia, hypertension.
Condition: Fair
Diet: Low Fat and 2 Gram Sodium
Activity: As tolerated
Driving Restrictions: As prior to admission
Bathing Restrictions: None
Referrals:
Ebenezer Dan MD [Non-Admitting Privileges] -
Drake Goss DO [Family Provider] -
Additional Discharge Medication Instructions: You will need outpatient follow-up with Dr. Dan at [place]. You can follow-up with palliative care at [place], please call office [phone].
Prescriptions:
New
lactulose 20 gram/30 mL Solution
20 g PO TID Qty: 2880 0RF
nicotine 14 mg/24 hr Patch 24 Hour
14 mg transdermal DAILY Qty: 14 0RF
Continued
furosemide [Lasix] 40 mg Tablet
40 mg PO DAILY
alprazolam 1 mg tablet
1 mg PO BID@0800,1800
Patient Comments:
06/13/2024: last filled 06/12/24, 180 tabs for 90 days from [facility]
thiamine HCl (vitamin B1) 100 mg tablet
100 mg PO DAILY
Breztri Aerosphere 160-9-4.8 mcg/actuation Hfa Aerosol Inhaler
2 inh INHALATION R BID
Patient Comments:
Patient is getting free samples
spironolactone 50 mg tablet
50 mg PO DAILY
Xifaxan 550 mg Tablet
550 mg PO BID
magnesium oxide 400 mg magnesium Tablet
400 mg PO BID
pantoprazole [Protonix] 40 mg Tablet,Delayed Release (Dr/Ec)
40 mg PO BID
tramadol 50 mg Tablet
50 mg PO BIDPRN PRN (Reason: severe pain)
Discharge Orders:
Discharge Patient (As Directed); Ordered 07/01/24
Ordered By: Jhonny Merlos
Discharge Date and Time
Discharge Date/Time: 07/01/24 13:35
Print Language: YI
--- NOTE | 2024-07-01 13:39 | CM ---
PT & OT recommend HH.
Patient left before able to be seen.
Spoke with Cherise by phone; she works nights as a nurse and is available to assist the patient as needed. She says patient will not want VN for PT/OT.
Plan home today.
== END 2024-07-01 13:35 | disposition home or self-care (01) | DRG 442 ==
LOC: 4 EAST ACU 13:36
PROVIDERS: Internal Medicine; Nurse Practitioner Family; Radiology Vascular & Interventional Radiology; Registered Nurse; ADMITTING PHYSICIAN Internal Medicine; CONSULT PHYSICIAN Specialist; EMERGENCY PHYSICIAN Emergency Medicine; FAMILY PHYSICIAN Internal Medicine
PROC: 30233N1 Transfusion of Nonautologous Red Blood Cells into Peripheral Vein, Percutaneous Approach (ICD-10-PCS; 2024-06-28)
PROC: 0W9G3ZZ Drainage of Peritoneal Cavity, Percutaneous Approach (ICD-10-PCS; 2024-06-29)
PROC: 0DJ08ZZ Inspection of Upper Intestinal Tract, Via Natural or Artificial Opening Endoscopic (ICD-10-PCS; 2024-06-29)
DX: K76.6 Portal hypertension (principal); D62 Acute posthemorrhagic anemia; E87.1 Hypo-osmolality and hyponatremia; K70.31 Alcoholic cirrhosis of liver with ascites; K31.89 Other diseases of stomach and duodenum; D69.6 Thrombocytopenia, unspecified; I10 Essential (primary) hypertension; J44.9 Chronic obstructive pulmonary disease, unspecified; K64.9 Unspecified hemorrhoids; K76.82 Hepatic encephalopathy; F41.9 Anxiety disorder, unspecified; F10.21 Alcohol dependence, in remission; F17.210 Nicotine dependence, cigarettes, uncomplicated; G89.4 Chronic pain syndrome; K21.9 Gastro-esophageal reflux disease without esophagitis; Z86.73 Personal history of transient ischemic attack (TIA), and cerebral infarction without residual deficits; Z86.010 Personal history of colon polyps; Z86.19 Personal history of other infectious and parasitic diseases; Z79.899 Other long term (current) drug therapy
CPT/HCPCS: 36430; 49083; 80048; 80053; 80076; 81003; 81015; 82140; 82805; 82945; 83615; 83986; 85014; 85018; 85025; 85027; 85610; 86850; 86900; 86901; 86920; 86922; 87015; 87070; 87077; 87086; 87205; 89051; 94640; 96365; 96366; 97116; 97162; 97167; 97530; 99291; P9016; P9047

== ENCOUNTER → 2024-07-05 07:03 | Outpatient (REF) | payer BC, SELFPAY ==
[2024-07-05 10:00] LABS: % Basophils 0.5 % (0-2); % Eosinophils 2.8 % (0-6); % Immature Granulocytes 0.3 % (0-0.5); % Lymphocytes 13.5 % (20.5-51.1); % Monocytes 13.2 % (1.7-9.3); % Neutrophils 69.7 % (42.2-75.2); Absolute Eosinophils 0.1 10^3/uL (0-0.7); Absolute Lymphocytes 0.5 10^3/uL (1.2-3.4); Absolute Monocytes 0.5 10^3/uL (0.1-0.6); Absolute Neutrophils 2.7 10^3/uL (1.4-6.5); Hematocrit 26.7 % (39.0-52.0); Mean Corp Hgb Conc. 33.7 g/dL (33.0-37.0); Mean Platelet Volume 9.8 fL (7.4-10.4); Nucleated Red Blood Cells % 0 % (-); Platelet Count 87 10^3/uL (130-400); White Blood Cell Count 3.9 10^3/uL (4.8-10.8)
[2024-07-05 10:08] LABS: ALT (SGPT) 23 U/L (0-50); AST (SGOT) 54 U/L (17-59); Albumin 2.8 g/dl (3.5-5.0); Alkaline Phosphatase 156 U/L (38-126); Blood Urea Nitrogen 15 mg/dl (9-20); Calcium 8.6 mg/dl (8.4-10.2); Carbon Dioxide 26 mmol/L (22-30); Chloride 101 mmol/L (98-107); Glucose 83 mg/dl (70-99); Potassium 3.8 mmol/L (3.5-5.1); Sodium 133 mmol/L (135-145); Total Bilirubin 1.7 mg/dl (0.2-1.3); Total Protein 4.9 g/dl (6.3-8.2); eGFR > 60.00
== END ==
LOC: HWLAB 07:03
PROVIDERS: ATTENDING PHYSICIAN Internal Medicine
DX: K70.31 Alcoholic cirrhosis of liver with ascites (principal); D62 Acute posthemorrhagic anemia
CPT/HCPCS: 36415; 80053; 85025

== ENCOUNTER 2024-07-08 05:47 | Emergency (ER) | payer BC, SELFPAY ==
[2024-07-08 05:49] VITALS: BP 138/73
--- NOTE | 2024-07-08 06:17 | ED.GENMED ---
History of Present Illness
General
Chief Complaint: Abdominal Symptoms
Time Seen by Provider: 07/08/24 06:16
History of Present Illness
History of Present Illness:
HPI: The patient has a history of alcoholic cirrhosis. He was recently admitted just over a week ago with hepatic encephalopathy, was given blood transfusion, and had a paracentesis. He came in today primarily because of right shoulder pain. He
was also concerned because his weight has gone up. He continues to smoke but he states he no longer drinks alcohol. He is scheduled for paracentesis in 2 days.
EXAM:
GENERAL: The patient is chronically ill in appearance, he appears somewhat weak and debilitated
HEENT: Moist oral mucosa
CARDIOVASCULAR: No murmurs, normal heart rate, regular rhythm, No chest wall tenderness
PULMONARY: No respiratory distress but he has bilateral wheeze
ABDOMEN: Soft with no peritoneal signs, no tenderness however he does have a fluid wave consistent with ascites but I would not consider this 'tense' ascites
NEUROLOGIC: Good strength all extremities, no coordination deficits
PSYCHIATRIC: Appropriate mental status, normal insight and judgement but he appears slightly confused at times
EXTREMITIES: There is no significant tenderness to palpation of the right shoulder however he has markedly decreased active range of motion at the right shoulder due to pain, 3+ lower extremity edema
SKIN: No rash, no lesions
TIME OF INITIAL ENCOUNTER: 6:20 AM
NUMBER AND COMPLEXITY OF PROBLEMS ADDRESSED AT THE ENCOUNTER
� Chronic conditions affecting care: Alcoholic cirrhosis, COPD
� Acute Exacerbation and/or Progression of Chronic Illness: The shoulder pain is an acute problem
� Differential Diagnosis includes: Rotator cuff pathology, tendinitis, shoulder strain, COPD exacerbation, recurrence of ascites
AMOUNT AND/OR COMPLEXITY OF DATA TO BE REVIEWED AND ANALYZED
� I performed an independent evaluation of and my interpretation is:
EKG:
CT:
X-rays: Right shoulder x-ray shows some degenerative changes
Laboratory Studies: White count 5.4, hemoglobin 8.8 which is near baseline
Other:
� Review of other/old records: I reviewed the discharge summary from earlier this month as summarized in the HPI.
� Clinical information was obtained by an independent historian: None needed
� Prescriptions/Medications Considered but not given: The patient is already on tramadol, given issues with GI bleeding in the past we will hold off on NSAIDs and we will hold off on acetaminophen given the liver disease
� Further testing considered but not performed: Considered imaging of the abdomen however the patient has no tenderness
RISK OF COMPLICATIONS AND/OR MORBIDITY OR MORTALITY OF PATIENT MANAGEMENT
� Social determinants of health affecting care: Lives at home, was able to drive himself here
� Discussion with other providers:
� Escalation of care including admission/observation vs risk of discharge considered: The patient took tramadol prior to arrival. One of his main concerns is right shoulder pain for which he has markedly decreased active range
of motion. X-ray shows degenerative changes. Ammonia has improved compared to earlier this month. On reassessment at 7:20 AM, the patient feels well enough to go home and does not feel that he requires paracentesis at that time. He does not have
a tense abdomen. He feels comfortable with driving home. Sling given for shoulder discomfort. I do not suspect that this is referred pain as he has markedly decreased active range of motion.
Past History
Past History
ED Past Medical History: COPD, CVA, HTN, Psychiatric and Other
ED Past Surgical History: Other
Social History
Tobacco: Smoker
Alcohol: Former
Drug: None
Personal:
Living: with family
Employment: Employed
Family History
Family History: Diabetes and Other
Phy Exam
Physical Exam
Physical Exam:
See HPI
Course
Orders/Labs/Results
Orders:
Orders
07/08/24 06:25
Ipratropium/Albuterol Sulfate [Duoneb] 3 ml INH R NOW ONE
CR Shoulder - Right Min 2 View Urgent
Comment:
Reason For Exam: pain
07/08/24 06:29
Ammonia Urgent
Complete Blood Count/No Diff Urgent
Comprehensive Metabolic Panel Urgent
07/08/24 07:10
Sling Right-Treatment ONCE
Abnormal Lab Results
07/08/24
06:29
RBC 3.04 L 10^6/uL
(4.70-6.10)
Hgb 8.8 L g/dL
(13.0-18.0)
Hct 26.1 L %
(39.0-52.0)
RDW 18.3 H %
(11.5-14.5)
Plt Count 73 L 10^3/uL
(130-400)
Sodium 132 L mmol/L
(135-145)
Glucose 111 H mg/dl
(70-99)
Total Bilirubin 2.2 H mg/dl
(0.2-1.3)
Total Protein 4.9 L g/dl
(6.3-8.2)
Albumin 2.9 L g/dl
(3.5-5.0)
07/08/24 06:29
07/08/24 06:29
Vital Signs
Initial and Last Documented VS:
Initial Vital Signs
Temp Pulse Resp BP Pulse Ox
99.9 F 98 20 138/73 93
07/08/24 05:49 07/08/24 05:49 07/08/24 05:49 07/08/24 05:49 07/08/24 05:49
Last Documented Vital Signs
Temp Pulse Resp BP Pulse Ox
99.9 F 98 20 138/73 93
07/08/24 05:49 07/08/24 05:49 07/08/24 05:49 07/08/24 05:49 07/08/24 05:49
*Critical Care Note
Total Time (30-74mins, 75-104mins- exclusive of procedures): Not Applicable
ED Attending Note
-
Portions of this chart may have been created with voice recognition software.� Occasional wrong word or��sound alike� substitutions may have occurred due to the inherent limitations of voice recognition software.
Discharge Plan
Departure
Patient Disposition: Home (Routine Discharge)
Date of Disposition: 07/08/24
Time of Disposition: 07:21
Patient with high blood pressure during this ER visit?: Yes
Discharge Problem:
Acute shoulder pain
Prescriptions:
No Action
furosemide [Lasix] 40 mg Tablet
40 mg PO DAILY
alprazolam 1 mg tablet
1 mg PO BID@0800,1800
Patient Comments:
06/13/2024: last filled 06/12/24, 180 tabs for 90 days from [facility]
thiamine HCl (vitamin B1) 100 mg tablet
100 mg PO DAILY
Breztri Aerosphere 160-9-4.8 mcg/actuation Hfa Aerosol Inhaler
2 inh INHALATION R BID
Patient Comments:
Patient is getting free samples
spironolactone 50 mg tablet
50 mg PO DAILY
Xifaxan 550 mg Tablet
550 mg PO BID
magnesium oxide 400 mg magnesium Tablet
400 mg PO BID
pantoprazole [Protonix] 40 mg Tablet,Delayed Release (Dr/Ec)
40 mg PO BID
tramadol 50 mg Tablet
50 mg PO BIDPRN PRN (Reason: severe pain)
lactulose 20 gram/30 mL Solution
20 g PO TID Qty: 2880 0RF
nicotine 14 mg/24 hr Patch 24 Hour
14 mg transdermal DAILY Qty: 14 0RF
Referrals:
Lebron Win MD [Active] - Follow up in 2-3 days
Drake Goss DO [Family Provider] -
Activity Restrictions/Additional Instructions:
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 There is also mild osteoarthritis at the shoulder joint itself. I have given the contact
information for local orthopedist, Dr. Win. Your hemoglobin is near baseline and your ammonia level has improved. You could continue the tramadol for the pain.
Interventions
Interventions:
*Risk Screen - Suicide Last Done: 07/08/24 06:39
*General Assessment Last Done: 07/08/24 05:54
*Neglect/Abuse Screening Last Done: 07/08/24 05:53
*ED COVID-19 Vaccine History Last Done: 07/08/24 05:54
RM-Pbzwwm-Qboevqaxuo Assessment Last Done: 07/08/24 06:39
Discharge Date and Time
Print Language: FAROESE
[2024-07-08 06:26] VITALS: BMI 28.2
[2024-07-08 06:48] LABS: Hematocrit 26.1 % (39.0-52.0); Hemoglobin 8.8 g/dL (13.0-18.0); Mean Corp Hgb Conc. 33.7 g/dL (33.0-37.0); Mean Corpuscular Hgb 28.9 pg (27.0-31.0); Mean Corpuscular Volume 85.9 fL (80.0-94.0); Mean Platelet Volume 9.5 fL (7.4-10.4); Platelet Count 73 10^3/uL (130-400); Red Blood Cell Count 3.04 10^6/uL (4.70-6.10); Red Cell Dist. Width 18.3 % (11.5-14.5); White Blood Cell Count 5.4 10^3/uL (4.8-10.8)
[2024-07-08 06:59] LABS: Ammonia 20 umol/L (9-30)
[2024-07-08 07:07] LABS: ALT (SGPT) 23 U/L (0-50); AST (SGOT) 59 U/L (17-59); Albumin 2.9 g/dl (3.5-5.0); Alkaline Phosphatase 126 U/L (38-126); Blood Urea Nitrogen 15 mg/dl (9-20); Calcium 8.5 mg/dl (8.4-10.2); Carbon Dioxide 26 mmol/L (22-30); Chloride 101 mmol/L (98-107); Estimated Creatinine Clearance 114 ml/min; Glucose 111 mg/dl (70-99); Potassium 4.8 mmol/L (3.5-5.1); Sodium 132 mmol/L (135-145); Total Bilirubin 2.2 mg/dl (0.2-1.3); Total Protein 4.9 g/dl (6.3-8.2); eGFR > 60.00
[2024-07-08] MEDS: DUONEB 3 ML INH (07:33)
[2024-07-08 07:35] VITALS: BP 127/76
[2024-07-08 08:15] VITALS: BP 125/59
== END 2024-07-08 08:15 | disposition home or self-care (01) ==
LOC: EMR 05:47
PROVIDERS: EMERGENCY PHYSICIAN Emergency Medicine; FAMILY PHYSICIAN Internal Medicine
DX: M25.511 Pain in right shoulder (principal); K70.30 Alcoholic cirrhosis of liver without ascites; K76.82 Hepatic encephalopathy; J44.9 Chronic obstructive pulmonary disease, unspecified; I10 Essential (primary) hypertension; F17.200 Nicotine dependence, unspecified, uncomplicated; Z83.3 Family history of diabetes mellitus; Z86.73 Personal history of transient ischemic attack (TIA), and cerebral infarction without residual deficits
CPT/HCPCS: 99283; 73030; 80053; 82140; 85027

== ENCOUNTER → 2024-07-10 07:26 | Outpatient (REF) | payer BC, SELFPAY ==
[2024-07-10 07:45] VITALS: BP 155/80; BP_SYST 94
[2024-07-10 08:45] VITALS: BP 135/78; BP_SYST 98
[2024-07-10 09:05] VITALS: BP 148/88; BP_SYST 92
[2024-07-10 10:00] LABS: Body Fluid Mononuclear 75.4 %; Body Fluid Polymorphonuclear 24.6 %; Body Fluid WBC 114 /CUMM
[2024-07-10 10:09] LABS: Body Fluid Second Tech AMA
== END ==
LOC: RADI 07:26
PROVIDERS: ATTENDING PHYSICIAN Nurse Practitioner Adult Health; FAMILY PHYSICIAN Internal Medicine
DX: R18.8 Other ascites (principal)
CPT/HCPCS: 49083; 87015; 87070; 87205; 89051

== ENCOUNTER → 2024-07-12 07:52 | Outpatient (REF) | payer BC, SELFPAY ==
[2024-07-12 09:38] LABS: % Basophils 0.4 % (0-2); % Eosinophils 3.9 % (0-6); % Immature Granulocytes 0.9 % (0-0.5); % Lymphocytes 20.9 % (20.5-51.1); % Monocytes 9.6 % (1.7-9.3); % Neutrophils 64.3 % (42.2-75.2); Absolute Eosinophils 0.2 10^3/uL (0-0.7); Absolute Immature Granulocytes 0.1 10^3/uL (0-0.05); Absolute Lymphocytes 1.1 10^3/uL (1.2-3.4); Absolute Monocytes 0.5 10^3/uL (0.1-0.6); Absolute Neutrophils 3.5 10^3/uL (1.4-6.5); Hematocrit 29.8 % (39.0-52.0); Hemoglobin 9.8 g/dL (13.0-18.0); Mean Corp Hgb Conc. 32.9 g/dL (33.0-37.0); Mean Corpuscular Hgb 29.6 pg (27.0-31.0); Mean Platelet Volume 10.1 fL (7.4-10.4); Nucleated Red Blood Cells % 0 % (-); Platelet Count 94 10^3/uL (130-400); Red Blood Cell Count 3.31 10^6/uL (4.70-6.10); Red Cell Dist. Width 18.1 % (11.5-14.5); White Blood Cell Count 5.4 10^3/uL (4.8-10.8)
[2024-07-12 09:46] LABS: ALT (SGPT) 25 U/L (0-50); AST (SGOT) 61 U/L (17-59); Alkaline Phosphatase 153 U/L (38-126); Blood Urea Nitrogen 14 mg/dl (9-20); Calcium 8.5 mg/dl (8.4-10.2); Carbon Dioxide 25 mmol/L (22-30); Chloride 99 mmol/L (98-107); Glucose 109 mg/dl (70-99); Potassium 4.6 mmol/L (3.5-5.1); Sodium 136 mmol/L (135-145); Total Bilirubin 2.1 mg/dl (0.2-1.3); Total Protein 5.3 g/dl (6.3-8.2); eGFR > 60.00
== END ==
LOC: HWLAB 07:52
PROVIDERS: ATTENDING PHYSICIAN Internal Medicine
DX: D64.9 Anemia, unspecified (principal)
CPT/HCPCS: 36415; 80053; 85025

== ENCOUNTER 2024-07-19 16:52 | Inpatient (IN) | payer BC, SELFPAY ==
[2024-07-19] VITALS (17 sets, daily range): BP systolic 112–143; BP diastolic 59–75; BMI 29.8; BMI 27.9
[2024-07-19 13:52] LABS: % Basophils 0.7 % (0-2); % Eosinophils 2.6 % (0-6); % Immature Granulocytes 0.6 % (0-0.5); % Lymphocytes 16.7 % (20.5-51.1); % Monocytes 9.6 % (1.7-9.3); % Neutrophils 69.8 % (42.2-75.2); Absolute Basophils 0.1 10^3/uL (0-0.2); Absolute Eosinophils 0.2 10^3/uL (0-0.7); Absolute Lymphocytes 1.2 10^3/uL (1.2-3.4); Absolute Monocytes 0.7 10^3/uL (0.1-0.6); Hemoglobin 7.3 g/dL (13.0-18.0); Mean Corp Hgb Conc. 33.2 g/dL (33.0-37.0); Mean Corpuscular Hgb 29.7 pg (27.0-31.0); Mean Corpuscular Volume 89.4 fL (80.0-94.0); Mean Platelet Volume 9.7 fL (7.4-10.4); Nucleated Red Blood Cells % 0 % (-); Platelet Count 96 10^3/uL (130-400); Red Blood Cell Count 2.46 10^6/uL (4.70-6.10); Red Cell Dist. Width 18.2 % (11.5-14.5); White Blood Cell Count 7.2 10^3/uL (4.8-10.8)
[2024-07-19 14:09] LABS: ALT (SGPT) 20 U/L (0-50); AST (SGOT) 47 U/L (17-59); Albumin 2.7 g/dl (3.5-5.0); Alkaline Phosphatase 94 U/L (38-126); Blood Urea Nitrogen 27 mg/dl (9-20); Carbon Dioxide 29 mmol/L (22-30); Chloride 99 mmol/L (98-107); Glucose 123 mg/dl (70-99); Potassium 4.2 mmol/L (3.5-5.1); Sodium 134 mmol/L (135-145); Total Bilirubin 2.6 mg/dl (0.2-1.3); Total Protein 4.8 g/dl (6.3-8.2); eGFR > 60.00
--- NOTE | 2024-07-19 15:24 | ED.GENMED ---
History of Present Illness
General
Chief Complaint: Abnormal Lab Value
Source: patient, records and family
Time Seen by Provider: 07/19/24 15:04
History of Present Illness
History of Present Illness:
59-year-old male with complicated past medical history including alcoholic liver cirrhosis, previous GI bleeding secondary to esophageal varices as well as internal hemorrhoid bleeding based off of last colonoscopy, COPD, previous CVA presenting
back to the emergency department after having lab work done earlier today with primary care provider which showed patient had a downtrending hemoglobin although patient is unsure as to what the exact level was. Patient states that he is in his
usual state of health and has no concerns at this time but does admit to darker stools over the last few days. Denies abdominal pain. Patient does note he is scheduled for paracentesis tomorrow. Denies fevers or infectious symptoms. No other
concerns.
Past History
Past History
ED Past Medical History: COPD, CVA, HTN, Psychiatric and Other
ED Past Surgical History: Other
Social History
Tobacco: Smoker
Alcohol: Former
Drug: None
Personal:
Living: with family
Employment: Employed
Family History
Family History: Diabetes and Other
Review of Systems
Review of Systems
All Other Systems: ROS reviewed and negative except as documented in HPI and ROS
Phy Exam
Physical Exam
Physical Exam:
GENERAL: Alert , in no apparent distress
EYE: Clear conjunctiva, anicteric
NECK: Supple
ENT: o/p clr, mmm.
CARDIAC: Regular rate and rhythm .
LUNGS: Clear breath sounds bilaterally, no acute respiratory distress, no wheezes/rales/rhonchi
ABDOMEN: Significantly distended, positive ascites, moderate-sized umbilical hernia
RECTAL: dark stevens/light black stool, heme pos
NEUROLOGICAL: Alert and oriented
SKIN: Warm and dry, skin intact.
MUSCULOSKELETAL: well perfused.
PSYCH: Normal and appropriate interaction.
Scores
Heart Failure Risk
Heart Failure Risk Score: Not Applicable
Heart Score for Chest Pain Patients
STEMI patient?: Not applicable
Withdrawal Assessment of Alcohol
Withdrawal Assessment Completed?: Not applicable
Course
Orders/Labs/Results
Orders:
Orders
07/19/24 13:37
Type+Screen Urgent
07/19/24 13:38
Complete Blood Count/With Diff Urgent
Comprehensive Metabolic Panel Urgent
07/19/24 Dinner
2 Gram Sodium [Sodium, 2 Gram]
At Your Request: Full Participation
07/19/24 15:19
* Blood Bank Products Urgent
Blood Bank Products: *Packed RBC Leuko(PRBC's)
Quantity: 2
Transfuse Today: Yes
Reason: Bleeding
IV Insert/Care/Rem.- Treatment PRN
Pantoprazole 80 mg/100 ml Nss [Protonix] 80 mg in 100 ml IV NOW
Pantoprazole [Protonix IV] 80 mg IV NOW STA
07/19/24 15:45
PTT Urgent
Prothrombin Time Urgent
07/19/24 15:49
Admit/Transfer Patient As Directed
Co-Sign Provider:
Level of Care: Inpatient admission
Assign to:: IMU- Intermediate Care
Physician / Group: htay
Diagnosis: ACBLA, presumed UGIB, HX Portal HTN gastropathy,decompensated cirrhosis
Reason for Hospitalization: ACBLA, presumed UGIB, HX Portal HTN gastropathy,decompensated cirrhosis
Expected length of stay greater than two midnights?: Yes
ELOS- Estimated Length of Stay in days: 3
I certify the patient meets the requirements for IP care: Yes
07/19/24 15:53
Code Status As Directed
Resuscitation Status: Full Code
07/19/24 15:56
Ammonia Urgent
07/19/24 16:04
IRAD CONSULT Routine
Consulting Provider: Guillaume Hurley
Was physician already notified: Yes
Reason for Consult/Procedure: parcentesis
Acknowledgement that appropriate orders are entered: Yes
07/20/24 06:00
Ammonia IN AM
Abnormal Lab Results
07/19/24 07/19/24 07/19/24
13:37 13:38 15:45
RBC 2.46 L 10^6/uL
(4.70-6.10)
Hgb 7.3 L g/dL
(13.0-18.0)
Hct 22.0 L %
(39.0-52.0)
RDW 18.2 H %
(11.5-14.5)
Plt Count 96 L 10^3/uL
(130-400)
Absolute Monos (auto) 0.7 H 10^3/uL
(0.1-0.6)
Immature Gran % 0.6 H %
(0-0.5)
Lymphocytes % 16.7 L %
(20.5-51.1)
Monocytes % 9.6 H %
(1.7-9.3)
PT 18.5 H Sec
(11.4-14.6)
Sodium 134 L mmol/L
(135-145)
BUN 27 H mg/dl
(9-20)
Glucose 123 H mg/dl
(70-99)
Total Bilirubin 2.6 H mg/dl
(0.2-1.3)
Total Protein 4.8 L g/dl
(6.3-8.2)
Albumin 2.7 L g/dl
(3.5-5.0)
Crossmatch IS Only See Detail
MTS Gel Crossmatch See Detail
07/19/24 13:38
07/19/24 13:38
Vital Signs
Initial and Last Documented VS:
Initial Vital Signs
Temp Pulse Resp BP Pulse Ox
98.8 F 104 18 138/66 98
07/19/24 13:29 07/19/24 13:29 07/19/24 13:29 07/19/24 13:29 07/19/24 13:29
Last Documented Vital Signs
Temp Pulse Resp BP Pulse Ox
98.8 F 104 17 122/72 97
07/19/24 13:29 07/19/24 17:45 07/19/24 17:45 07/19/24 17:00 07/19/24 15:31
MDM/Problems Addressed
Differential Diagnosis Includes:
1. Anemia - Labs from outpatient checked which show hgb 7.7, rechecked in triage and now 7.3
2. GI bleeding. suspected upper source given dark stools. known varices based off previous imaging. no hematemesis
3. Recurring ascites
MDM/Problems Addressed:
59-year-old male with complex chronic medical history presenting to the emergency department for evaluation of recurring anemia found on outpatient labs today. Based off of exam and presentation this is most suspicious due to GI bleeding. Based
off history this is most likely an upper GI source. Patient currently not on any anticoagulants. He is hemodynamically stable. Will treat with Protonix bolus and drip. Patient will also be consented for blood products. Will discuss case with GI
team. Anticipate admission given history and need for close monitoring.
Chronic conditions affecting care: Other (Esophageal varices, previous GI bleeding)
Acute Exacerbation and/or Progression of Chronic Illness: Other (Upper GI bleed)
*Pulse Oximetry
Patient hypoxic: no
*Merchandising Execution Manager Interpretation
Rate: normal
Rhythm: sinus
*Critical Care Note
Total Time (30-74mins, 75-104mins- exclusive of procedures): 30
comment:
Critical care statement: A total of 30 minutes of critical care time was provided for this patient. This includes management of unstable vital signs, evaluation of the patient at bedside, reviewing the patient's pertinent medical records, discussion
with consultants, review of old EKGs and review of pertinent medical records. This time with separate from time utilized to perform the aforementioned documented procedures
Data Reviewed
Review of Other/Old Records Reveals: Labs, Records and Discharge Summary
Source: patient, records and family
Patient Management
Discussion with other providers: Hospitalist and Access Database Developer
Escalation/DeEscalation of care consider admission/obs:
Hospitalist team notified and accepts for continued evaluation and treatment. GI team is also aware and is in agreement with treatment plan in the ER. Patient remains hemodynamically stable. He was consented for 2 units of blood. Will closely
monitor.
ED Attending Note
-
Portions of this chart may have been created with voice recognition software.� Occasional wrong word or��sound alike� substitutions may have occurred due to the inherent limitations of voice recognition software.
Discharge Plan
Departure
Patient Disposition: Admit
Date of Disposition: 07/19/24
Time of Disposition: 15:24
Presentation/result/management discussed w/ accepting MD/DO: Hospitalist
Discharge Problem:
Anemia, GI bleeding, Alcoholic liver failure
Interventions
Interventions:
*Risk Screen - Suicide Last Done: 07/19/24 13:29
*General Assessment Last Done: 07/19/24 13:29
*Neglect/Abuse Screening Last Done: 07/19/24 13:29
ED- Fall Risk Assessment Last Done: 07/19/24 16:32
--- NOTE | 2024-07-19 15:30 | HPS.HSE ---
Family Physician
-
Family Physician:
Chief Complaint
-
sent by PCP after labs this morning showed downtrending hgb since his d/c at end of June
History of Present Illness
59M HX multiple admissions with HX decompensated liver failure 2/2 ETOH abuse and varices being sent by PCP after labs this morning showed downtrending hgb since his d/c at end of June.
Hgb went from 9.2 -->7.3. Reports
POS HoB POS greyish black stool per ER EMERGENCY MEDICINE PHYSICIAN BHARTI>
Denied hematemesis.
Of note: Was supposed to see his management consulting at [facility] but sounds like he did not
Medical History
Past Medical History
Past Medical History: Reports Other
Additional Past Medical History:
Anxiety
Portal cirrhosis
Thrombocytopenia
Hypertension
Hepatitis C
COPD
Bleeding hemorrhoids
Alcohol abuse
Ascites
Alcohol cirrhosis
Past Surgical History: Reports Other
Additional Past Surgical History:
Repair of spinal fluid leak
Teeth extraction
Social History
Tobacco: Non-smoker
Alcohol: Former
Drug: None
Family History
Family History: Not pertinent
Allergies / Home Medications
Allergies reflects when Allergies were last updated in [facility].
Home Medications with original date entered in [facility]
Allergy/Medication List:
Allergies
Allergy/AdvReac Type Severity Reaction Status Date / Time
No Known Allergies Allergy Verified 06/28/24 10:27
Home Medications
alprazolam 1 mg tablet 1 mg PO BID anxiety 03/13/24
furosemide 40 mg tablet (Lasix) 40 mg PO DAILY Fluid Retention/Swelling 03/13/24
thiamine HCl (vitamin B1) 100 mg tablet 100 mg PO DAILY Supplement 03/13/24
budesonide 160 mcg-glycopyr 9 mcg-formot 4.8 mcg/actuation HFA inhaler (Breztri Aerosphere) 2 inh inhalation R BID Lung/Breathing Issues 04/11/24
spironolactone 50 mg tablet 50 mg PO DAILY Liver Issues 04/17/24
magnesium oxide 400 mg PO BID 06/28/24
pantoprazole 40 mg tablet,delayed release (Protonix) 40 mg PO DAILY 06/28/24
rifaximin 550 mg tablet (Xifaxan) 550 mg PO BID 06/28/24
tramadol 50 mg tablet 50 mg PO BIDPRN PRN severe pain 06/28/24
Review of Systems
-
Constitutional: Reports No Symptoms
EENT: Reports No Symptoms
Respiratory: Reports No Symptoms
Cardiac: Reports No Symptoms
Abdomen/GI: Reports See HPI and Black Stools (greyish )
: Reports No Symptoms
Musculoskeletal: Reports No Symptoms
Skin: Reports No Symptoms
Neurological: Reports No Symptoms
Endocrine: Reports No Symptoms
Hematologic/Lymphatic: Reports No Symptoms
Psych: Reports No Symptoms
Physical Exam
Vital Signs
Vital Signs
Temp Pulse Resp BP Pulse Ox
98.8 F 104 18 138/66 98
07/19/24 13:29 07/19/24 13:29 07/19/24 13:29 07/19/24 13:29 07/19/24 13:29
Physical Exam
General: Well Developed, Well Nourished and No Apparent Distress
HEENT: NormoCephalic, Moist mucous membranes and Atraumatic
Respiratory: Clear
Cardiac: S1/S2 and Regular Rhythm; No Murmur or Rub
Rectal: Hem Positive (greyish black per ER EMERGENCY MEDICINE PHYSICIAN ) and Deferred by Provider
Musculoskeletal: No Clubbing, No Cyanosis and No Edema
Skin: No Rash
Neuro: Nonfocal/grossly intact
Laboratory Results
-
07/19/24 13:38
07/19/24 13:38
Laboratory Results
Total Bilirubin 2.6 mg/dl (0.2-1.3) H 07/19/24 13:38
AST 47 U/L (17-59) 07/19/24 13:38
ALT 20 U/L (0-50) 07/19/24 13:38
Alkaline Phosphatase 94 U/L (38-126) 07/19/24 13:38
Data Reviewed
-
Lab Data: Labs Reviewed by me
Old Records: Reviewed
Impression/Plan
-
Vital Signs
Temp Pulse Resp BP Pulse Ox
98.8 F 104 18 138/66 98
07/19/24 13:29 07/19/24 13:29 07/19/24 13:29 07/19/24 13:29 07/19/24 13:29
admission Data 07/19/24 07/19/24 07/19/24
08:22 13:38 15:17
Hgb 7.7 L 7.3 L
MCV 89.4
Plt Count 101 L 96 L
INR Pending
Sodium 134 L
BUN 27 H
Creatinine 1.0
eGFR > 60.00
Total Bilirubin 2.4 H 2.6 H
Albumin 2.7 L
ASSESSMENT & PLAN
Progressive anemia with Hgb Went from 9.2 -->7.3
HoB POS grayish black stool this suspect ACBLA on chr anemia:
DDX; Portal HTN gastropathy
Noted ST but hemodynamically stable
HX Multiple admissions due to decompensated liver failure 2/2 ETOH abuse and varices.
- Blood consented - agree with 2 units of PRBC
- Trend H & H - Tx treshold < 7.0
- agree with PPI gtt
- NPO and IVF
- Hold Frusemide and Aldactone for now
- GI consulted
HX Ascites
- for Paracentesis in AM
- IR consulted
HX hepatic encephalopathy: currently approrpiatementation
- check ammonia for baseline and in AM
- Continue lactulose and Xifaxin
HX decompensated cirrhosis due to alcohol and hepatitis C virus
- Hepatitis C s/p Epclusa
- Held Lasix and Aldactone continued
- Xifaxan continued
HX COPD with no acute exacerbation
- breztri continued
Anxiety
- Alprazolam continued
DVT prophylaxis; SCD
Full code
IMU
--- NOTE | 2024-07-19 16:02 | CON.GI ---
Addendum entered and electronically signed by Inge Fitzpatrick DO 07/19/24 17:38:
The patient was seen and examined by me independently in collaboration with the nurse practitioner.
Past medical history/social history/medications/allergies/family history reviewed.
Lab data and imaging data reviewed.
Cortez Mazariegos is a 59 y.o. male with past medical history of decompensated HCV and alcohol cirrhosis complicated by hepatic encephalopathy, recurrent ascites, thrombocytopenia, GI bleeding secondary to portal hypertensive gastropathy, chronic
hyponatremia, hx postpolyectomy bleeding, COPD, tobacco abuse, CVA, hypertension admitted after outpatient labs revealed downtrending hemoglobin, 7.3 from 9.8 on 07/12. He has frequent readmissions to [facility], most recently admitted on
06/28 for symptomatic anemia. He had an EGD on 06/29 with findings of portal hyerptensive gastropathy in the entire stomach, self-limited oozing seen spontaneously in the stomach, no evidence of esophageal or gastric varices. Last paracentesis on
07/10, no evidence of SBP.
He is currently hemodynamically stable.
Hemoglobin 7.3, MCV 89.4, platelets 96, sodium 134, potassium 4.2, BUN 27, creatinine 1.0, T. bili 2.6, AST 47, ALT 20, alk phos 90, albumin 2.7.
Colonoscopy in April 2024 found 18mm polyp at HF removed and bled, required Ovesco clip for ligation
Recommendations:
-okay for clear liquid diet
-trend CBC q8 hours, transfuse for Hgb <7.0, need to be cautious not to overtransfuse
-2 large bore peripheral gauge IVs
-Octreotide gtt, PPI gtt, Ceftriaxone for SBP prophylaxis
-no plans for EGD at this time, given very recent EGD, suspect this is oozing 2/2 diffuse portal hypertensive gastropathy, without any evidence of esophageal or gastric varices
-c/w lactulose and Xifaxin for HE
-needs outpatient f/u with Dr. Dan, rescheduled for August. He would benefit from outpatient iron transfusions, consideration can be given for TIPS with recurrent PHG bleeding
Addendum entered and electronically signed by MARCIA Valdez 07/19/24 17:30:
Pt with minimal forgetfulness on admission ammonia pending. sister updated at bedside
Original Note:
Consultation
-
Date/Time Consultation Requested: 07/19/24 1530
Date/Time Consultation Performed: 07/19/24 1600
Requesting Provider: Blanco Queen PA-C
Performing Provider: MARCIA Rossi, Jeny Fitzpatrick DO
Reason for Consultation: anemia
Medical History
Chief Complaint / HPI
Chief Complaint: generazlied weakness, altered mental status
History of Present Illness:
59yo male with hx Hep C/EtOH cirrhosis, ascites, HE, GIB due to portal gastropathy, hx postpolypectomy bleed presents due to weakness and found with recurrent drop in Hgb to 7.3. He has required multiple blood transfusions over the past year for
recurrent bleeding and noted with confusion with concern for HE. He has intractable ascites with frequent paracentesis. Last EGD June 2024 with portal HTN gastropathy, otherwise normal. Colonoscopy in April 2024 found 18mm polyp at HF removed
and bled, required Ovesco clip for ligation. He now presents for drop in hbg to 7.3. In reviewing labs noted with hbg 6-10 over last few months with reports of recent dark stools.
At this time he denies odynophagia, dysphagia, GERD, nausea, vomiting, abdominal pain, or red blood in stools. He does admit to abdominal distention with ascites and due for para 9/13. He is due for follow up with Dr. aDn in August
as missed last appt in June with admission.
Past Medical History
Past Medical History: COPD, CVA, GERD, HTN and Other (Decompensated alcoholic/hepatitis C cirrhosis with ascites and HE, ETOH abuse, chronic thrombocytopenia, cigarette smoker, chronic hyponatremia, hepatitis C status posttreatment with Epclusa and
eradication, chronic pain syndrome, anxiety, insomnia, History of GI bleed secondary to portal hypertensi)
Past Surgical History: Other (colon polyp with post-polypectomy bleed, spinal leak with patch, tooth extraction)
Social History
Tobacco: Smoker (1ppd )
Alcohol: Former (former alcoholic)
Drug: None
Personal:
Living: With Family
Family History
Family History: Other (sister with hx PVT with prior ETOH use)
Allergies / Home Medications
Allergy/AdvReac Type Severity Reaction Status Date / Time
No Known Allergies Allergy Verified 07/19/24 13:28
�Medication �Instructions �Recorded
alprazolam 1 mg tablet 1 mg PO BID@0800,1800 anxiety 03/13/24
furosemide 40 mg tablet (Lasix) 40 mg PO DAILY Fluid 03/13/24
Retention/Swelling
thiamine HCl (vitamin B1) 100 mg 100 mg PO DAILY Supplement 03/13/24
tablet
budesonide 160 mcg-glycopyr 9 2 inh inhalation R BID 04/11/24
mcg-formot 4.8 mcg/actuation HFA Lung/Breathing Issues
inhaler (Breztri Aerosphere)
spironolactone 50 mg tablet 50 mg PO DAILY Liver Issues 04/17/24
magnesium oxide 400 mg PO BID Supplement 06/28/24
pantoprazole 40 mg tablet,delayed 40 mg PO BID Gastrointestinal Issue 06/28/24
release (Protonix)
rifaximin 550 mg tablet (Xifaxan) 550 mg PO BID hepatic 06/28/24
encephalopathy
tramadol 50 mg tablet 50 mg PO BIDPRN PRN severe pain 06/28/24
lactulose 20 gram/30 mL oral 20 g (30 mL) PO TID Liver issues 07/01/24
solution #2,880 mL
nicotine 14 mg/24 hr daily 14 mg transdermal DAILY Smoking 07/01/24
transdermal patch cessation #14 ea
Review of Systems
-
Unable to obtain full review of systems at this time due to: Dementia
History Source: Patient
Constitutional: Reports Weight Gain (with fluid overload )
EENT: Reports No Symptoms
Respiratory: Reports No Symptoms
Cardiac: Reports No Symptoms
Abdomen/GI: Reports Other (distention with ascites, some dark stools recently noted )
: Reports No Symptoms
Musculoskeletal: Reports No Symptoms
Skin: Reports No Symptoms
Neurological: Reports Weakness
Endocrine: Reports No Symptoms
Hematologic/Lymphatic: Reports Bleeding
Vital Signs
Temp Pulse Resp BP Pulse Ox
98.8 F 104 18 138/66 98
07/19/24 13:29 07/19/24 13:29 07/19/24 13:29 07/19/24 13:29 07/19/24 13:29
Physical Exam
Exam
General: Other (mild jaundice)
HEENT: Normocephalic
Respiratory: Clear
Cardiac: Regular Rhythm and Peripheral Edema (+2-3 )
GI: Soft, Normal Bowel Sounds, Distended and Other (umbilical hernia)
Rectal: Other (deleon/black stool)
Musculoskeletal: No Clubbing and No Cyanosis
Skin: Warm and Dry
Neuro: Awake, Alert and AO x 3
Psych: Calm
Results
WBC 7.2 10^3/uL (4.8-10.8) 07/19/24 13:38
Hgb 7.3 g/dL (13.0-18.0) L 07/19/24 13:38
Hct 22.0 % (39.0-52.0) L 07/19/24 13:38
MCV 89.4 fL (80.0-94.0) 07/19/24 13:38
Plt Count 96 10^3/uL (130-400) L 07/19/24 13:38
Absolute Neuts (auto) 5.0 10^3/uL (1.4-6.5) 07/19/24 13:38
Sodium 134 mmol/L (135-145) L 07/19/24 13:38
Potassium 4.2 mmol/L (3.5-5.1) 07/19/24 13:38
Chloride 99 mmol/L (98-107) 07/19/24 13:38
Carbon Dioxide 29 mmol/L (22-30) 07/19/24 13:38
BUN 27 mg/dl (9-20) H 07/19/24 13:38
Creatinine 1.0 mg/dL (0.7-1.3) 07/19/24 13:38
Calcium 9.0 mg/dl (8.4-10.2) 07/19/24 13:38
Total Bilirubin 2.6 mg/dl (0.2-1.3) H 07/19/24 13:38
AST 47 U/L (17-59) 07/19/24 13:38
ALT 20 U/L (0-50) 07/19/24 13:38
Alkaline Phosphatase 94 U/L (38-126) 07/19/24 13:38
Diagnostic Image Results:
EGD: 06/29/24 maci Gaviria MD - Normal esophagus.
- Portal hypertensive gastropathy.
- Normal examined duodenum.
- No specimens collected.
05/07/[address] Smith : - Hemorrhoids found on perianal exam.
- The examined portion of the ileum was normal.
- Foreign body ([employer]SC[employer] clip) at the hepatic flexure.
- Polypoid lesion at the hepatic flexure.
- Diverticulosis in the sigmoid colon and in the
descending colon.
- Internal hemorrhoids.
- No specimens collected.
Colonoscopy 04/13/2024-[facility] - One 15 to 18 mm polyp at the hepatic flexure,
removed using lift and cut and a hot snare and removed
with a cold snare. Resected and retrieved. Injected.
Treated with hot biopsy forceps. Ligated.
- One 4 mm polyp in the descending colon, removed with
a hot snare. Resected and retrieved. Clip was placed.
- Diverticulosis in the sigmoid colon, in the
descending colon and at the splenic flexure.
bx DC -TA and HF - HP polyp
EGD 04/13/2024� [facility] - No gross lesions in the entire esophagus. No varices.
- Z-line variable, 42 cm from the incisors.
- Portal hypertensive gastropathy.
- Normal examined duodenum.
- No specimens collected.
EGD:12/27/22 [facility] - Normal esophagus.
- Portal hypertensive gastropathy.
- Normal examined duodenum.
- No specimens collected.
04/11/2024 MRI Abd with and without:
IMPRESSION: Examination limited by motion artifact. CT may be useful as the next surveillance imaging examination, as perhaps there would be less motion artifact. Given this limitation, there is no MR evidence for hepatocellular carcinoma. Findings
of cirrhosis with ascites, splenomegaly, and prominent varices within the abdomen, and extending around the distal esophagus.
Assessment / Plan
-
59yo male with hx Hep C/EtOH cirrhosis, ascites, HE, GIB due to portal gastropathy, hx postpolypectomy bleed presents due to weakness and found with recurrent drop in Hgb to 7.3. He has required multiple blood transfusions over the past year for
recurrent bleeding and noted with confusion with concern for HE. He has intractable ascites with frequent paracentesis. Last EGD June 2024 with portal HTN gastropathy, otherwise normal. Colonoscopy in April 2024 found 18mm polyp at HF removed
and bled, required Ovesco clip for ligation. He now presents for drop in hbg to 7.3. In reviewing labs noted with hbg 6-10 over last few months with reports of recent dark stools.
Impression:
- recurrent Anemia, Hgb 7.4 on admission
-Decompensated alcoholic/Hep C liver cirrhosis, MELD 3.0= 17 on admission 07/19
-Chronic thrombocytopenia, stable-> 96
-Ascites-> on Lasix 40 mg daily and Aldactone 50 g daily
-Hx HE
-Chronic hyponatremia-> 134
-Hyperbilirubinemia-> 2.7
-AFP 30 in March 2024, was in the 10-12 range
-Hx Hep C s/p tx with Epclusa with SVR
-portal HTN
hx hemorrhoids
Other pertinent medical history:
-Chronic pain
-GERD
-Hypertension
-Anxiety
-hx colon polyps
Plan:
Pt admission with recurrent anemia likely related to portal gastropathy vs other recent scopes as noted
will add octreotide gtt
cont PPI gtt
add abx with GI bleeding and cirrhosis
monitor stool and hbg and is significant drop in hbg or aggressive bleeding consider EGD but hold for now
cont lactulose TID and Xifaxan BID
ok for 2 gram Na diet
for para in AM assess for albumin replacement
-Continue Lasix 40 mg daily and Aldactone 50 mg po daily consider increased in AM after para
OP follow up with Dr. Dan and Mary patterson in August added to discharge
-
-
Thank you for consultation and allowing me to participate in the patient's care. Please call the police communications operator GI physician during the after hours with any questions or concerns.
[2024-07-19 16:04] LABS: APTT 34.3 Sec (23.4-35.0); INR 1.53; PT 18.5 Sec (11.4-14.6)
[2024-07-19] MEDS: PROTONIX IV 80 MG IV (16:19)
[2024-07-19] MEDS: PROTONIX 100 IV (16:19)
[2024-07-19 19:22] LABS: Ammonia 85 umol/L (9-30)
[2024-07-19] MEDS: STERILE WATER FOR INJECTION 10 ML IV (20:47)
[2024-07-19] MEDS: XIFAXAN 550 MG PO (20:47)
[2024-07-19] MEDS: XANAX 1 MG PO (20:47)
[2024-07-19] MEDS: ROCEPHIN 1000 MG IV (20:47)
[2024-07-19] MEDS: DUPHALAC/CHRONULAC PO (21:17)
[2024-07-19] MEDS: DUPHALAC/CHRONULAC 20 GRAMS PO (23:08)
[2024-07-19] MEDS: SANDOSTATIN 500.6 MCG IV (23:23)
[2024-07-19] MEDS: NSS 1000 IV (23:23)
[2024-07-20] VITALS (10 sets, daily range): BP systolic 81–123; BP diastolic 57–69; BMI 28.0
[2024-07-20] MEDS: PROTONIX 100 IV (01:29)
--- NOTE | 2024-07-20 01:57 | PTCARENOTE ---
Pt ambulated from stretcher to bed with assistx1 and single point cane. Refused one dose of lactulose, but agreeable to take the following dose. 1 unit PRBC transfused by this RN. Protonix gtt remains in place. Pt c/o mild chronic right shoulder
pain, but does not request pharmacologic measures at this time. Call caballero within reach.
[2024-07-20 02:54] LABS: Hematocrit 22.4 % (39.0-52.0); Hemoglobin 7.7 g/dL (13.0-18.0)
[2024-07-20 05:30] LABS: INR 1.44; PT 17.6 Sec (11.4-14.6)
[2024-07-20 05:39] LABS: Ammonia 48 umol/L (9-30)
[2024-07-20 05:41] LABS: ALT (SGPT) 17 U/L (0-50); AST (SGOT) 43 U/L (17-59); Albumin 2.4 g/dl (3.5-5.0); Alkaline Phosphatase 79 U/L (38-126); Blood Urea Nitrogen 28 mg/dl (9-20); Calcium 8.2 mg/dl (8.4-10.2); Carbon Dioxide 27 mmol/L (22-30); Chloride 101 mmol/L (98-107); Estimated Creatinine Clearance 80 ml/min; Glucose 101 mg/dl (70-99); Hematocrit 23.4 % (39.0-52.0); Mean Corp Hgb Conc. 34.2 g/dL (33.0-37.0); Mean Corpuscular Hgb 30.3 pg (27.0-31.0); Mean Corpuscular Volume 88.6 fL (80.0-94.0); Mean Platelet Volume 9.6 fL (7.4-10.4); Platelet Count 80 10^3/uL (130-400); Potassium 4.5 mmol/L (3.5-5.1); Red Blood Cell Count 2.64 10^6/uL (4.70-6.10); Red Cell Dist. Width 17.4 % (11.5-14.5); Sodium 133 mmol/L (135-145); Total Bilirubin 3.1 mg/dl (0.2-1.3); Total Protein 4.4 g/dl (6.3-8.2); White Blood Cell Count 4.8 10^3/uL (4.8-10.8); eGFR > 60.00
[2024-07-20] MEDS: XIFAXAN 550 MG PO ×2 (08:15→19:28)
[2024-07-20] MEDS: XANAX 1 MG PO ×2 (08:15→17:42)
[2024-07-20] MEDS: DUPHALAC/CHRONULAC PO ×3 (08:23→21:42)
--- NOTE | 2024-07-20 08:40 | W.PN.GI.CBS2 ---
Today's Communication / Plan
-
Start NSBB given oozing from PHG as seen on most recent EGD (06/29/24). Continue IV PPI BiD and IV Ceftriaxone. May stop IV Octreotide. Agree with IR guided paracentesis given ascites. No plans for EGD at this time, but will consider pending clinical
course. Rest of care as outlined below.
Assessment / Plan
-
#Decompensated HCV/EtOH Cirrhosis
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
#Ascites #PSE
#Chronic Thrombocytopenia
#Hx of Postpolypectomy Bleed (04/2024)
Impression: Mr. Mazariegos is a 59 y.o male with pmh of decompensated HCV/EtOH cirrhosis with decompensations including HE, recurrent ascites, GI bleeding 2/2 PHG (no EV/GV), chronic HCV (s/p Epclusa w/ SVR), hx of postpolypectomy bleeding, hx of
CVA, and COPD who was admitted after outpatient labs revealed drop in Hgb to 7.3 from 9.8 on 07/12/24. Has had frequent readmissions to with recent admission on 06/28 for very similar presentation with symptomatic anemia where an EGD on 06/29/24
reveled PHG with self-limited oozing without EV/GV or duodenal varices or PUD. Last paracentesis on 07/10 (-) SBP. Remains HD-stable without melena or overtly bloody stools since admission s/p 2 uPRBCs for Hgb 7s with Hgb 8.0 however suspect his prior
Hgb may have been lower as patient is not having active melena and component of dilution. MELD 3.0 on admission 17. Given his most recent EGD (3 weeks ago) without further melena would defer repeat endoscopic evaluation at this time.
Recommendations:
- Trend daily MELD 3.0 labs- CMP and INR
- Okay for CLD today, if H/h remains stable in afternoon may ADAT. Ensure 2 gm Na+ restriction
- No plans for EGD given recent endoscopic evaluation (06/29) and HD-stable without ongoing melena. Continue medical management as below
- Trend Hgb with serial CBC, transfuse for goal Hgb > 7.0. Please AVOID over-transfusions as this may worsen portal-hypertensive mediated bleeding
- Stop PPI gtt, transition to IV PPI 40 mg BiD
- Favor initiating NSBB with low dose Coreg 3.125 mg BiD (may titrate up to maximum of 12.5 mg per day - ie 6.25 mg BiD) as this will help his oozing PHG
- May continue empiric IV Ceftriaxone for 5-7 day course given suspected oozing PHG and low Hgb
- Okay to continue diuretics- lasix 40 mg and aldactone 50 mg q daily
- Plan for IR-guided paracentesis today, 07/20, please ensure fluid studies are sent: total cell count with differential and culture
- Titrate lactulose for 3-4 BMs per day and Rifaximin 550 mg BiD
- Avoid all opioids/benzos while inpatient
- Needs close f/u with his Transplant Rn Plastic Surgery, Dr. Dan, which is scheduled in August for ongoing follow-up and HCC surveillance. Could consider TIPS if patient continues to have significant oozing from PHG, however prefer to start NSBB
first especially given his PSE
- Ultimately, patient would benefit from IV iron along with serial blood transfusions as an outpatient. Favor outpatient Hematology follow-up
- Monitor for signs of overt GI bleeding- notify GI if any melena or bloody stools for reconsideration of EGD
- Rest of care per primary team
Inpatient GI team will continue to follow. Please call with any questions or concerns.
Subjective
Subjective
Date of Service: July 20, 2024
- No acute events overnight
Resting comfortably in bed, denies any black tarry stools or overtly bloody stools overnight or this AM. Reports having dark brown bowel movements without blood clots. No abdominal pain, but reports worsening distension. Has a planned IR guided
paracentesis scheduled for this AM. Otherwise, no fevers, chills or other constitutional symptoms.
Objective
Data Reviewed
Laboratory Data:
Laboratory Results
07/20/24 05:07
07/20/24 05:07
Laboratory Results
PT 17.6 Sec (11.4-14.6) H 07/20/24 05:07
INR 1.44 07/20/24 05:07
APTT 34.3 Sec (23.4-35.0) 07/19/24 15:45
Total Bilirubin 3.1 mg/dl (0.2-1.3) H 07/20/24 05:07
AST 43 U/L (17-59) 07/20/24 05:07
ALT 17 U/L (0-50) 07/20/24 05:07
Alkaline Phosphatase 79 U/L (38-126) 07/20/24 05:07
Vital Signs and I&O:
Vital Signs
Temp Pulse Resp BP Pulse Ox
98.2 F 101 16 115/65 92
07/20/24 07:10 07/20/24 04:00 07/20/24 04:00 07/20/24 02:00 07/20/24 02:00
I&O
07/19/24 07/20/24 07/21/24
06:59 06:59 06:59
Intake Total 990 / 990
Output Total 150 / 150
Balance 840 / 840
Physical Exam
Physical Exam
HEENT: Anicteric and Moist mucous membranes
Cardiology: Normal Sinus Rhythm
Pulmonary: Clear and Other (Normal WOB on room air)
GI: Distended, Non Tender and Tense
Extremities: No Edema and Warm
Neuro: Non Focal and Other (AAOx3; no asterixis)
[2024-07-20] MEDS: ULTRAM 50 MG PO ×2 (08:42→21:59)
--- NOTE | 2024-07-20 09:12 | W.PN.HOSP.TC ---
Today's Communication/Plan
-
see bold
Assessment / Plan
Assessment / Plan
#Recurrent GI bleed
#Portal hypertensive gastropathy
Status post 2 units of packed red blood cells 07/19
Hemoglobin improved to 8.0 this morning, now downtrending, patient continues to have black stools
Transfuse 3rd unit of blood today
Appreciate GI input, no plans for endoscopy
Recommend Protonix 40 mg IV twice daily, discontinue octreotide
GI ordered IV iron
#Decompensated HCV/alcoholic cirrhosis
#Hepatic encephalopathy
Continue IV Rocephin, lactulose, Xifaxan
GI started Coreg 3.125 mg twice a day
Status post paracentesis 07/20 draining 4.5 L
Resume Lasix and Aldactone
#Anxiety
Continue home Xanax
#Cigarette nicotine dependency
Nicotine patch
#Chronic right shoulder pain
Lidocaine patch, tramadol as needed
DVT prophylaxis�SCDs secondary to GI bleed
Full code
Updated on phone 07/20
Total time spent to see the patient on the floor, examine the patient, review data and lab results, discuss treatment plan with patient, nursing staff around 52 minutes.
Physical Exam
General: Appears chronically ill, no acute distress
HEENT: Normocephalic, Atraumatic, EOMI, MMM
Respiratory: Clear to Auscultation bilaterally
Cardiac: Normal S1/S2, Regular Rate and Rhythm
GI: Soft, Nontender, Nondistended, Normal Bowel Sounds
Ascites noted
Extremities: No Clubbing, Cyanosis
Bilateral lower extremity edema noted
Neuro: Nonfocal/Grossly Intact
Psych: Calm, Cooperative
Derm: No Visible lesions
Anticipated Discharge: > 48 hours
Subjective/Interval History
-
Date of Service: July 20, 2024
Patient continues to have black stools. Denies shortness of breath. No fever, no vomiting.
Objective Data
-
Labs:
Laboratory Results
07/19/24 07/20/24 07/20/24
23:30 02:14 05:07
WBC 4.8
Hgb Cancelled 7.7 L 8.0 L
Hct Cancelled 22.4 L 23.4 L
Plt Count 80 L
PT 17.6 H
INR 1.44
Sodium 133 L
Potassium 4.5
Chloride 101
Carbon Dioxide 27
BUN 28 H
Creatinine 1.0
Glucose 101 H
Calcium 8.2 L
Total Bilirubin 3.1 H
AST 43
ALT 17
Alkaline Phosphatase 79
Vital Signs:
Vital Signs
Temp Pulse Resp BP Pulse Ox
98.2 F 101 16 115/65 92
07/20/24 07:10 07/20/24 04:00 07/20/24 04:00 07/20/24 02:00 07/20/24 02:00
I&O
07/19/24 07/20/24 07/21/24
06:59 06:59 06:59
Intake Total 990 / 990
Output Total 150 / 150
Balance 840 / 840
[2024-07-20 11:10] LABS: Body Fluid Albumin < 1.0 g/dl; Body Fluid Amylase < 30 U/L; Body Fluid LDH < 90 U/L; Body Fluid Protein < 2.0 g/dl
[2024-07-20 11:31] LABS: Body Fluid Mononuclear 87.2 %; Body Fluid Polymorphonuclear 12.8 %; Body Fluid WBC 86 /CUMM
[2024-07-20 11:37] LABS: Body Fluid Second Tech CF
[2024-07-20] MEDS: NSS 1000 IV ×2 (12:26→23:05)
[2024-07-20] MEDS: LIDOCAINE 4% PATCH 1 PATCH TOPICAL (14:36)
[2024-07-20] MEDS: FERRLECIT 110 MG IV (14:36)
[2024-07-20] MEDS: NICODERM TRANSDERMAL 21 MG TRANSDERM (14:37)
--- NOTE | 2024-07-20 15:02 | PTCARENOTE ---
Patient AAOx3, forgetful. Had 1 bloody/maroon BM this morning, GI and hospitalist informed. CBC just drawn, awaiting results. Para completed. Dressing CDI. VSS. No complaints by patient. Patient refusing lactulose despite repeated education on its
importance. Patient states 'I will take it here tomorrow if i'm not getting discharged.' Patient argues that 'getting to the bathroom quick enough is not possible with all of the wires.' Will continue to try for compliance. , Cherise, updated.
Continuing to closely monitor.
[2024-07-20 15:04] LABS: % Basophils 0.6 % (0-2); % Eosinophils 5.5 % (0-6); % Immature Granulocytes 0.3 % (0-0.5); % Lymphocytes 14.6 % (20.5-51.1); Absolute Eosinophils 0.2 10^3/uL (0-0.7); Absolute Lymphocytes 0.5 10^3/uL (1.2-3.4); Absolute Monocytes 0.3 10^3/uL (0.1-0.6); Absolute Neutrophils 2.4 10^3/uL (1.4-6.5); Hematocrit 22.8 % (39.0-52.0); Hemoglobin 7.5 g/dL (13.0-18.0); Mean Corp Hgb Conc. 32.9 g/dL (33.0-37.0); Mean Corpuscular Hgb 29.6 pg (27.0-31.0); Mean Corpuscular Volume 90.1 fL (80.0-94.0); Mean Platelet Volume 9.5 fL (7.4-10.4); Nucleated Red Blood Cells % 0 % (-); Platelet Count 70 10^3/uL (130-400); Red Blood Cell Count 2.53 10^6/uL (4.70-6.10); Red Cell Dist. Width 17.6 % (11.5-14.5); White Blood Cell Count 3.4 10^3/uL (4.8-10.8)
--- NOTE | 2024-07-20 15:12 | CM ---
Patient with Dx anemia s/p paracentesis. Room air. Receiving IV Abx, IV Fe Na Gluconate, IVF. Clear liquid. Per nursing assessment; ambulatory in room.
Met with patient and spoke with Cherise, who is a nurse;
the patient resides with his in a 2 story house with 1 CAL.
The patient has been independent in ADLs and ambulation.
Has housing/food/utility/insecurity.
No issues with transportation.
Patient says there has been issues with him receiving his disability checks which will resume in Aug.
Not receiving food stamps.
confirms they have enough money for food & housing but things are tight.
DME - hospital bed, SPC, RW, home O2 concentrator/portables
VN - prior [facility]
SNF - none
PCP - PCP is Dr. Goss
[facility]armacy - [facility]
Patient and would like [facility] ---> referral to [facility].
Plan home with [facility].
[2024-07-20] MEDS: COREG 3.125 MG PO (19:28)
[2024-07-20] MEDS: ROCEPHIN 1000 MG IV (19:29)
[2024-07-20] MEDS: STERILE WATER FOR INJECTION 10 ML IV (19:29)
[2024-07-20] MEDS: PROTONIX IV 40 MG IV (19:30)
[2024-07-20] MEDS: NSS (PRESERVATIVE FREE) 10 ML IV (19:31)
--- NOTE | 2024-07-20 22:27 | PTCARENOTE ---
Pt oriented, uncooperative at times. Refuses PM lactulose dose, education provided. VSS. 1 unit PRBC infusing at this time.
[2024-07-21] VITALS (10 sets, daily range): BP systolic 103–136; BP diastolic 58–77; BMI 27.6
[2024-07-21 05:39] LABS: Hemoglobin 8.4 g/dL (13.0-18.0); Mean Corp Hgb Conc. 33.6 g/dL (33.0-37.0); Mean Corpuscular Hgb 30.2 pg (27.0-31.0); Mean Corpuscular Volume 89.9 fL (80.0-94.0); Mean Platelet Volume 9.7 fL (7.4-10.4); Platelet Count 72 10^3/uL (130-400); Red Blood Cell Count 2.78 10^6/uL (4.70-6.10); Red Cell Dist. Width 17.3 % (11.5-14.5); White Blood Cell Count 3.8 10^3/uL (4.8-10.8)
[2024-07-21 05:48] LABS: Ammonia 47 umol/L (9-30)
[2024-07-21 05:52] LABS: Blood Urea Nitrogen 20 mg/dl (9-20); Calcium 7.6 mg/dl (8.4-10.2); Carbon Dioxide 26 mmol/L (22-30); Chloride 105 mmol/L (98-107); Estimated Creatinine Clearance 100 ml/min; Glucose 99 mg/dl (70-99); Potassium 4.2 mmol/L (3.5-5.1); Sodium 135 mmol/L (135-145); eGFR > 60.00
[2024-07-21] MEDS: ALDACTONE 50 MG PO (08:02)
[2024-07-21] MEDS: XANAX 1 MG PO ×2 (08:02→18:16)
[2024-07-21] MEDS: LASIX 40 MG PO (08:02)
[2024-07-21] MEDS: XIFAXAN 550 MG PO ×2 (08:02→20:20)
[2024-07-21] MEDS: COREG PO ×2 (08:02→08:38)
[2024-07-21] MEDS: NSS (PRESERVATIVE FREE) 10 ML IV ×2 (08:03→20:20)
[2024-07-21] MEDS: NICODERM TRANSDERMAL 21 MG TRANSDERM (08:03)
[2024-07-21] MEDS: DUPHALAC/CHRONULAC 20 GRAMS PO (08:03)
[2024-07-21] MEDS: PROTONIX IV 40 MG IV ×2 (08:03→20:21)
[2024-07-21] MEDS: LIDOCAINE 4% PATCH 1 PATCH TOPICAL (08:03)
--- NOTE | 2024-07-21 08:41 | W.PN.GI.CBS2 ---
Today's Communication / Plan
-
octreotide, monitor Hb/overt bleeding, only transfuse for Hb<7
Assessment / Plan
-
Mr. Mazariegos is a 59 y.o male with pmh of decompensated HCV/EtOH cirrhosis with decompensations including HE, recurrent ascites, GI bleeding 2/2 PHG (no EV/GV), chronic HCV (s/p Epclusa w/ SVR), hx of postpolypectomy bleeding, hx of CVA, and COPD
who was admitted after outpatient labs revealed drop in Hgb to 7.3 from 9.8 on 07/12/24. Has had frequent readmissions to with recent admission on 06/28 for very similar presentation with symptomatic anemia where an EGD on 06/29/24 reveled PHG with
self-limited oozing without EV/GV or duodenal varices or PUD (multiple EGD this year for bleeding none with varices). Last paracentesis on 07/20 (-) SBP.
#Decompensated HCV/EtOH Cirrhosis
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
#Ascites #PSE
#Chronic Thrombocytopenia
#Hx of Postpolypectomy Bleed (04/2024)
Required 3U PRBC (2 units 07/19 and one 07/20) although of note Hb never dropped below 7 (his baseline is 7-8).
Suspect recurrent bleeding from portal HTN gastropathy
Recommendations:
- No SBP on yesterday's para
- Trend daily MELD 3.0 labs- CMP and INR
- Clears today - repeat Hb at 2pm if no BM/stable will allow dinner
- If has ongoing bleeding/drop in Hb may need repeat EGD pending clinical status
- Will resume octreotide with ongoing bleeding
- Trend Hgb with serial CBC, transfuse for goal Hgb > 7.0. Please AVOID over-transfusions as this may worsen portal-hypertensive mediated bleeding
- IV PPI 40 mg BiD
- Plan to initiate NSBB with low dose Coreg 3.125 mg BiD (may titrate up to maximum of 12.5 mg per day - ie 6.25 mg BiD) as this will help his oozing PHG on discharge (hold for now)
- May continue empiric IV Ceftriaxone for 7 day course given suspected oozing PHG and low Hgb with cirrhosis
- Okay to continue diuretics- lasix 40 mg and aldactone 50 mg q daily
- Titrate lactulose for 3-4 BMs per day and Rifaximin 550 mg BiD
- Avoid all opioids/benzos while inpatient
- Needs close f/u with his Transplant Dredge Operator Supervisor, Dr. Dan, which is scheduled in September 03 for ongoing follow-up and HCC surveillance. Could consider TIPS if patient continues to have significant oozing from PHG, however prefer to start
NSBB first especially given his PSE
- Ultimately, patient would benefit from IV iron along with serial blood transfusions as an outpatient. Favor outpatient Hematology follow-up
- Monitor for signs of overt GI bleeding- notify GI if any melena or bloody stools for reconsideration of EGD d/w RN
Subjective
Subjective
Date of Service: July 21, 2024
One black BM yesterday
One bloody BM overnight
Objective
Data Reviewed
Laboratory Data:
Laboratory Results
07/21/24 05:23
07/21/24 05:23
Laboratory Results
PT 17.6 Sec (11.4-14.6) H 07/20/24 05:07
INR 1.44 07/20/24 05:07
APTT 34.3 Sec (23.4-35.0) 07/19/24 15:45
Total Bilirubin 3.1 mg/dl (0.2-1.3) H 07/20/24 05:07
AST 43 U/L (17-59) 07/20/24 05:07
ALT 17 U/L (0-50) 07/20/24 05:07
Alkaline Phosphatase 79 U/L (38-126) 07/20/24 05:07
Vital Signs and I&O:
Vital Signs
Temp Pulse Resp BP Pulse Ox
98.1 F 98 19 118/71 96
07/21/24 07:05 07/21/24 04:00 07/21/24 04:00 07/21/24 04:00 07/21/24 03:22
I&O
07/20/24 07/21/24 07/22/24
06:59 06:59 06:59
Intake Total 990 / 990 980 / 980
Output Total 150 / 150 300 / 300
Balance 840 / 840 680 / 680
Physical Exam
Physical Exam
HEENT: Anicteric
GI: Non Distended and Non Tender
--- NOTE | 2024-07-21 09:27 | W.PN.HOSP.TC ---
Today's Communication/Plan
-
see bold
Assessment / Plan
Assessment / Plan
#Recurrent GI bleed
#Portal hypertensive gastropathy
Status post 2 units of packed red blood cells 07/19, 1 unit 07/20
Hemoglobin 8.4 today, was 7.5 yesterday, 7.3 upon admission
Appreciate GI input, no plans for endoscopy
Recommend Protonix 40 mg IV twice daily, resumed back on octreotide 07/21
GI ordered IV iron
#Decompensated HCV/alcoholic cirrhosis
#Hepatic encephalopathy
Continue IV Rocephin, lactulose, Xifaxan
GI started Coreg 3.125 mg twice a day
Status post paracentesis 07/20 draining 4.5 L
Resumed Lasix and Aldactone
#Anxiety
Continue home Xanax
#Cigarette nicotine dependency
Nicotine patch
#Chronic right shoulder pain
Lidocaine patch, tramadol as needed
DVT prophylaxis�SCDs secondary to GI bleed
Full code
Updated on phone 07/20
Total time spent to see the patient on the floor, examine the patient, review data and lab results, discuss treatment plan with patient, nursing staff around 42 minutes.
Physical Exam
General: Appears chronically ill, no acute distress
HEENT: Normocephalic, Atraumatic, EOMI, MMM
Respiratory: Clear to Auscultation bilaterally
Cardiac: Normal S1/S2, Regular Rate and Rhythm
GI: Soft, Nontender, Nondistended, Normal Bowel Sounds
Ascites noted
Extremities: No Clubbing, Cyanosis
Bilateral lower extremity edema noted
Neuro: Nonfocal/Grossly Intact
Psych: Calm, Cooperative
Derm: No Visible lesions
Anticipated Discharge: 24 - 48 hours
Subjective/Interval History
-
Date of Service: July 21, 2024
Patient reports bright red blood with wiping. No fever, no vomiting.
Objective Data
-
Labs:
Laboratory Results
07/21/24 07/21/24
05:23 14:00
WBC 3.8 L
Hgb 8.4 L Pending
Hct 25.0 L
Plt Count 72 L
Sodium 135
Potassium 4.2
Chloride 105
Carbon Dioxide 26
BUN 20
Creatinine 0.8
Glucose 99
Calcium 7.6 L
Vital Signs:
Vital Signs
Temp Pulse Resp BP Pulse Ox
98.1 F 98 19 118/71 96
07/21/24 07:05 07/21/24 04:00 07/21/24 04:00 07/21/24 04:00 07/21/24 03:22
I&O
07/20/24 07/21/24 07/22/24
06:59 06:59 06:59
Intake Total 990 / 990 980 / 980
Output Total 150 / 150 300 / 300
Balance 840 / 840 680 / 680
[2024-07-21] MEDS: SANDOSTATIN 500.6 MCG IV ×2 (09:51→20:40)
[2024-07-21] MEDS: ULTRAM 50 MG PO ×2 (14:35→20:31)
[2024-07-21] MEDS: FERRLECIT 110 MG IV (14:36)
[2024-07-21 15:30] LABS: Hemoglobin 9.1 g/dL (13.0-18.0)
--- NOTE | 2024-07-21 16:44 | PTCARENOTE ---
Patient AAOx3, forgetful at times. Has had 1 maroon BM today, MD Richter notified. VSS. Octreotide infusing as ordered. Tolerating CLD. Bedside home meds sent to pharmacy. Patient with no complaints. Continuing to closely monitor.
--- NOTE | 2024-07-21 17:38 | W.PN.UPDATE ---
Update Note
Progress Note Update
S/w RN - 1 medium maroon stool 2:30 pm - repeat Hb 9.1
Now brown stool 5pm with blood with wipe
Will advance to low Na diet
Continue to monitor
If dropping Hb ongoing bloody BM will need EGD Mon
[2024-07-21] MEDS: DUPHALAC/CHRONULAC PO ×2 (18:16→20:21)
[2024-07-21] MEDS: ROCEPHIN 1000 MG IV (20:21)
[2024-07-21] MEDS: STERILE WATER FOR INJECTION 10 ML IV (20:21)
[2024-07-22] VITALS: BP 108/52
--- NOTE | 2024-07-22 00:24 | PTCARENOTE ---
Caring for patient overnight. aaox3, pleasant. C/o pain in R shoulder, prn ultram given. sandostatin gtt running. SR on monitor, remains on RA. Productive cough which is chronic per pt from smoking. Standing at bedside to use urinal, unsteady &
weak, uses cane & nurse for assistance. Refused lactulose d/t not wanting to use the BR overnight. at bedside and updated on plan of care. 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 VSS. Will continue to monitor.
[2024-07-22 02:00] VITALS: BP 115/63
[2024-07-22 04:00] VITALS: BP 127/75
[2024-07-22 05:57] VITALS: BMI 28.6
[2024-07-22 06:00] VITALS: BP 112/59
[2024-07-22 06:32] LABS: Hematocrit 25.1 % (39.0-52.0); Hemoglobin 8.6 g/dL (13.0-18.0); Mean Corp Hgb Conc. 34.3 g/dL (33.0-37.0); Mean Corpuscular Hgb 29.4 pg (27.0-31.0); Mean Corpuscular Volume 85.7 fL (80.0-94.0); Mean Platelet Volume 9.9 fL (7.4-10.4); Platelet Count 84 10^3/uL (130-400); Red Blood Cell Count 2.93 10^6/uL (4.70-6.10); Red Cell Dist. Width 17.5 % (11.5-14.5); White Blood Cell Count 4.5 10^3/uL (4.8-10.8)
[2024-07-22 06:53] LABS: Blood Urea Nitrogen 15 mg/dl (9-20); Carbon Dioxide 24 mmol/L (22-30); Chloride 105 mmol/L (98-107); Estimated Creatinine Clearance 100 ml/min; Potassium 4.1 mmol/L (3.5-5.1); eGFR > 60.00
[2024-07-22 07:04] LABS: Calcium 7.7 mg/dl (8.4-10.2); Glucose 155 mg/dl (70-99); Sodium 134 mmol/L (135-145)
[2024-07-22 08:00] VITALS: BP 136/62
[2024-07-22] MEDS: LIDOCAINE 4% PATCH 1 PATCH TOPICAL (08:31)
[2024-07-22] MEDS: NICODERM TRANSDERMAL 21 MG TRANSDERM (08:31)
[2024-07-22] MEDS: SANDOSTATIN 500.6 MCG IV (08:32)
[2024-07-22] MEDS: LASIX 40 MG PO (08:33)
[2024-07-22] MEDS: XANAX 1 MG PO (08:33)
[2024-07-22] MEDS: MAG-TAB SR 84 MG PO (08:33)
[2024-07-22] MEDS: ALDACTONE 50 MG PO (08:33)
[2024-07-22] MEDS: XIFAXAN 550 MG PO (08:33)
[2024-07-22] MEDS: PROTONIX IV 40 MG IV (08:34)
[2024-07-22] MEDS: NSS (PRESERVATIVE FREE) 10 ML IV (08:34)
[2024-07-22] MEDS: DUPHALAC/CHRONULAC PO (08:35)
--- NOTE | 2024-07-22 08:52 | W.PN.GI.CBS2 ---
Today's Communication / Plan
-
discharge planning, coreg, hepatology and hematology follow up
Assessment / Plan
-
Mr. Mazariegos is a 59 y.o male with pmh of decompensated HCV/EtOH cirrhosis with decompensations including HE, recurrent ascites, GI bleeding 2/2 PHG (no EV/GV), chronic HCV (s/p Epclusa w/ SVR), hx of postpolypectomy bleeding, hx of CVA, and COPD
who was admitted after outpatient labs revealed drop in Hgb to 7.3 from 9.8 on 07/12/24. Has had frequent readmissions to with recent admission on 06/28 for very similar presentation with symptomatic anemia where an EGD on 06/29/24 reveled PHG with
self-limited oozing without EV/GV or duodenal varices or PUD (multiple EGD this year for bleeding none with varices). Last paracentesis on 07/20 (-) SBP.
#Decompensated HCV/EtOH Cirrhosis
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
#Ascites #PSE
#Chronic Thrombocytopenia
#Hx of Postpolypectomy Bleed (04/2024)
Required 3U PRBC (2 units 07/19 and one 07/20) although of note Hb never dropped below 7 (his baseline is 7-8).
Suspect recurrent bleeding from portal HTN gastropathy. Now having brown BM.
Recommendations:
- No SBP on 07/20 para
- Regular diet
- Stop octreotide
- Repeat Hb later this week outpatient
- Protonix 40 daily
- Plan to initiate NSBB with low dose Coreg 3.125 mg BiD (may titrate up to maximum of 12.5 mg per day - ie 6.25 mg BiD) as this will help his oozing PHG on discharge - started today
- 7 day course of abx with bleeding and cirrhosis
- Continue diuretics- lasix 40 mg and aldactone 50 mg q daily
- Titrate lactulose for 3-4 BMs per day and Rifaximin 550 mg BiD
- Avoid all opioids/benzos while inpatient
- Needs close f/u with his Transplant Campus Security Officer, Dr. Dan, which is scheduled in Aug 02 for ongoing follow-up and HCC surveillance. Could consider TIPS if patient continues to have significant oozing from PHG, however prefer to start NSBB
first especially given his PSE
- Ultimately, patient would benefit from IV iron along with serial blood transfusions as an outpatient. Recommend outpatient Hematology follow-up
I sent msg to hospitalist matilde GAN for discharge
Subjective
Subjective
Date of Service: July 22, 2024
patient having brown bm
anxious to go home
Objective
Data Reviewed
Laboratory Data:
Laboratory Results
07/22/24 06:11
07/22/24 06:11
Laboratory Results
PT 17.6 Sec (11.4-14.6) H 07/20/24 05:07
INR 1.44 07/20/24 05:07
APTT 34.3 Sec (23.4-35.0) 07/19/24 15:45
Total Bilirubin 3.1 mg/dl (0.2-1.3) H 07/20/24 05:07
AST 43 U/L (17-59) 07/20/24 05:07
ALT 17 U/L (0-50) 07/20/24 05:07
Alkaline Phosphatase 79 U/L (38-126) 07/20/24 05:07
Vital Signs and I&O:
Vital Signs
Temp Pulse Resp BP Pulse Ox
98.3 F 80 21 112/59 95
07/22/24 07:33 07/22/24 06:00 07/22/24 06:00 07/22/24 06:00 07/22/24 03:00
I&O
07/21/24 07/22/24 07/23/24
06:59 06:59 06:59
Intake Total 980 / 980 480 / 480 420 / 420
Output Total 300 / 300 250 / 250
Balance 680 / 680 230 / 230 420 / 420
Physical Exam
Physical Exam
HEENT: Anicteric
Cardiology: Normal Sinus Rhythm
Pulmonary: Clear
GI: Distended and Non Tender
inguinal hernia some redness on it; periumbilical hernia
--- NOTE | 2024-07-22 08:59 | W.PN.HOSP.TC ---
Today's Communication/Plan
-
Cleared by GI for discharge today
Assessment / Plan
Assessment / Plan
#Recurrent GI bleed
#Acute on chronic blood loss anemia
#Portal hypertensive gastropathy
Status post 2 units of packed red blood cells 07/19, 1 unit 07/20
Hemoglobin 8.6 today, was 8.4, was 7.5 , 7.3 upon admission
Appreciate GI input, no plans for endoscopy
Resumed back on octreotide 07/21. GI ordered IV iron
Patient has had multiple brown stools, cleared by GI for discharge on Protonix 40 mg p.o. daily
GI recommends outpatient follow-up with hematology for IV iron and blood transfusions as needed
#Decompensated HCV/alcoholic cirrhosis
#Hepatic encephalopathy
Currently on IV Rocephin, lactulose, Xifaxan
GI started Coreg 3.125 mg twice a day
Status post paracentesis 07/20 draining 4.5 L
Resumed Lasix and Aldactone
Will discharge on cefdinir to complete a 7-day course as per GI, Coreg 6.25 mg daily
#Anxiety
Continue home Xanax
#Cigarette nicotine dependency
Nicotine patch
#Chronic right shoulder pain
Lidocaine patch, tramadol as needed
DVT prophylaxis�SCDs secondary to GI bleed
Full code
Updated on phone 07/20
Physical Exam
General: Appears chronically ill, no acute distress
HEENT: Normocephalic, Atraumatic, EOMI, MMM
Respiratory: Clear to Auscultation bilaterally
Cardiac: Normal S1/S2, Regular Rate and Rhythm
GI: Soft, Nontender, Nondistended, Normal Bowel Sounds
Ascites noted
Extremities: No Clubbing, Cyanosis
Bilateral lower extremity edema noted
Neuro: Nonfocal/Grossly Intact
Anticipated Discharge: Today
Subjective/Interval History
-
Date of Service: July 22, 2024
Patient had multiple episodes of brown stools. He feels well. No fever, no abdominal pain, no vomiting.
Objective Data
-
Labs:
Laboratory Results
07/22/24
06:11
WBC 4.5 L
Hgb 8.6 L
Hct 25.1 L
Plt Count 84 L
Sodium 134 L
Potassium 4.1
Chloride 105
Carbon Dioxide 24
BUN 15
Creatinine 0.8
Glucose 155 H
Calcium 7.7 L
Vital Signs:
Vital Signs
Temp Pulse Resp BP Pulse Ox
98.3 F 80 21 112/59 95
07/22/24 07:33 07/22/24 06:00 07/22/24 06:00 07/22/24 06:00 07/22/24 03:00
I&O
07/21/24 07/22/24 07/23/24
06:59 06:59 06:59
Intake Total 980 / 980 480 / 480 420 / 420
Output Total 300 / 300 250 / 250
Balance 680 / 680 230 / 230 420 / 420
[2024-07-22 10:40] VITALS: BP 134/75
[2024-07-22] MEDS: DESENEX/MITRAZOL/ZEASORB 1 APPLIC TOPICAL (10:40)
[2024-07-22] MEDS: COREG 3.125 MG PO (10:40)
--- NOTE | 2024-07-22 11:02 | W.DCSUMMARY ---
Discharge Summary
Discharge Data
Date of Admission: 07/19/24
Date of Discharge: 07/22/24
-
Pending Results: No
Hospital Course
Discharge diagnosis:
Recurrent gastrointestinal bleed
Acute on chronic blood loss anemia
Portal hypertensive gastropathy
Decompensated cirrhosis
Hepatic encephalopathy
Anxiety
Cigarette nicotine dependency
Chronic right shoulder pain
Consults: GI
Procedures:
07/20/2024 paracentesis draining 4.5 L
Hospital course:
59-year-old male with a past medical history of recurrent GI bleed, portal hypertensive gastropathy, decompensated HCV/alcoholic liver cirrhosis, and hepatic encephalopathy was admitted for melena and worsening anemia. Patient's outpatient blood
work shows that his hemoglobin was 7.3, down from 9.8, 10 days ago. Patient was seen in conjunction with GI. He was treated with Protonix drip, octreotide drip, Rocephin, and lactulose.
Patient had a paracentesis, draining 4.5 L. Fluid studies were negative for SBP. He was treated with IV Rocephin, GI recommends continuing oral antibiotics upon discharge to complete a 7-day course. GI also started him on Coreg, and he will be
discharged on Coreg 6.25 mg twice a day.
For patient's acute on chronic blood loss anemia, he was transfused 2 units of packed red blood cells on 07/19, and 1 unit on 07/20. He received IV iron. Patient's hemoglobin was monitored, remained stable at 8.6 on the day of discharge. His black
stools resolved. He is medically stable and cleared by GI for discharge. He needs to follow-up with hepatology in the office, his primary care doctor in 1 week, and hematology for outpatient IV iron and blood transfusions.
Disposition: Home self-care
Discharge planning: Required 42 minutes
Discharge Plan
-
Patient Disposition: Home (Routine Discharge)
Discharge Diagnosis/Procedures: Recurrent gastrointestinal bleed, portal hypertensive gastropathy, decompensated HCV/alcoholic cirrhosis, hepatic encephalopathy, acute blood loss anemia
Condition: Fair
Diet: 2 Gram Sodium and Restrict fluids to 48 oz
Activity: As tolerated
Driving Restrictions: As prior to admission
Blood Work: CBC with your PCP this week
Activity Restrictions/Additional Instructions:
Follow up with Transplant Principal Secretary, Dr. Dan, which is scheduled in Aug 02 for ongoing follow-up and HCC surveillance.
Recommend Hematology follow-up for IV iron infusions & blood transfusion outpatient.
Referrals:
Mary Cunningham MD [Active] - in two to three weeks
Drake Goss DO [Family Provider] - in less than 1 week
Prescriptions:
New
miconazole nitrate [Miconazorb AF] 2 % Powder
1 applic topical BID 7 Days Qty: 85 0RF
lidocaine 4 % Adhesive Patch,Medicated
1 patch topical DAILY 30 Days Qty: 30 0RF
nicotine 21 mg/24 hr Patch 24 Hour
21 mg transdermal DAILY Qty: 30 0RF
carvedilol [Coreg] 6.25 mg tablet
6.25 mg PO BID Qty: 60 0RF
cefdinir 300 mg capsule
300 mg PO BID 4 Days Qty: 8 0RF
Continued
furosemide [Lasix] 40 mg Tablet
40 mg PO DAILY
alprazolam 1 mg tablet
1 mg PO BID@0800,1800
Patient Comments:
07/19/2024: last filled 06/12/24, 180 tabs for 90 days from [facility]
thiamine HCl (vitamin B1) 100 mg tablet
100 mg PO DAILY
Breztri Aerosphere 160-9-4.8 mcg/actuation Hfa Aerosol Inhaler
2 inh INHALATION R BID
spironolactone 50 mg tablet
50 mg PO DAILY
Xifaxan 550 mg Tablet
550 mg PO BID
magnesium oxide 400 mg magnesium Tablet
400 mg PO BID
tramadol 50 mg Tablet
50 mg PO BIDPRN PRN (Reason: severe pain)
lactulose 20 gram/30 mL Solution
20 g PO TID Qty: 2880 0RF
Changed
pantoprazole [Protonix] 40 mg Tablet,Delayed Release (Dr/Ec)
40 mg PO DAILY Qty: 0 0RF
Discontinued
nicotine 14 mg/24 hr Patch 24 Hour
14 mg transdermal DAILY Qty: 14 0RF
Patient Comments:
'Insurance won't fill'
Discharge Orders:
Discharge Patient (As Directed); Ordered 07/22/24
Ordered By: Tu Bunn
Discharge Date and Time
Discharge Date/Time: 07/22/24 12:30
Print Language: WOLOF
--- NOTE | 2024-07-22 12:32 | PTCARENOTE ---
Assumed care of patient at beginning of this shift from previous RN with sandostatin infusing via R f/a IV site. Patient with R inguinal hernia; stated there was a cut to that area. Dr Wall with GI in to see patient and examined area; stated it
looked fungal and instructed to apply miconazole powder. Sandostatin also d/c'd by her at that time.
Patient then seen by Dr Abhinav Bunn and discharged. Reviewed all instructions with patient who verbalized understanding and denied questions. Pharmacist Felix brought up patient's home medications (narcotics), counted for verification with this RN and
gave to patient.
Patient initially stated his sister was picking him up, then he said he drove his truck here (parked in handicap area by ED) and was planning to drive home. Dr Abhinav Bunn made aware via tiger text. Patient received xanax this morning at 08:33 and
tramadol at 20:[address] Bunn ok'd patient to drive himself home. Taken to exit by Ren LANDERS.
--- NOTE | 2024-07-22 15:47 | CM ---
Chart reviewed patient is discharge to home with spouse, no needs.
Plan; Home with spouse.
--- NOTE | 2024-07-23 11:57 | VNURNOTE ---
Late entry: Referral was placed in saved status in [facility]. Per most recent CM notes, home w/no needs. Chart reviewed, does not appear to have skilled nurse needs. Referral not sent.
== END 2024-07-22 12:30 | disposition home or self-care (01) | DRG 432 ==
LOC: IMU 16:52
PROVIDERS: Internal Medicine Gastroenterology; Nurse Practitioner Adult Health; Physician Assistant Medical; Radiology Vascular & Interventional Radiology; Registered Nurse; Student in an Organized Health Care Education/Training Program; ADMITTING PHYSICIAN Internal Medicine; ATTENDING PHYSICIAN Family Medicine; CONSULT PHYSICIAN Internal Medicine; EMERGENCY PHYSICIAN Emergency Medicine; FAMILY PHYSICIAN Internal Medicine
PROC: 30233N1 Transfusion of Nonautologous Red Blood Cells into Peripheral Vein, Percutaneous Approach (ICD-10-PCS; 2024-07-19)
PROC: 0W9G3ZZ Drainage of Peritoneal Cavity, Percutaneous Approach (ICD-10-PCS; 2024-07-20)
DX: K70.31 Alcoholic cirrhosis of liver with ascites (principal); I85.11 Secondary esophageal varices with bleeding; D62 Acute posthemorrhagic anemia; K76.6 Portal hypertension; E87.1 Hypo-osmolality and hyponatremia; I85.10 Secondary esophageal varices without bleeding; K76.82 Hepatic encephalopathy; J44.9 Chronic obstructive pulmonary disease, unspecified; I10 Essential (primary) hypertension; F17.210 Nicotine dependence, cigarettes, uncomplicated; F10.21 Alcohol dependence, in remission; B18.2 Chronic viral hepatitis C; D69.6 Thrombocytopenia, unspecified; K31.89 Other diseases of stomach and duodenum; M25.511 Pain in right shoulder; F41.9 Anxiety disorder, unspecified; G89.4 Chronic pain syndrome; K21.9 Gastro-esophageal reflux disease without esophagitis; Z86.010 Personal history of colon polyps; Z86.73 Personal history of transient ischemic attack (TIA), and cerebral infarction without residual deficits; Z79.899 Other long term (current) drug therapy
CPT/HCPCS: 36415; 49083; 80048; 80053; 82042; 82140; 82150; 83615; 84157; 85014; 85018; 85025; 85027; 85610; 85730; 86850; 86900; 86901; 86920; 86922; 87015; 87070; 87205; 89051; 96374; 99291; J2916; P9016

== ENCOUNTER 2024-07-27 13:11 | Emergency (ER) | payer BC, SELFPAY ==
[2024-07-27] VITALS (11 sets, daily range): BP systolic 74–113; BP diastolic 51–76; BMI 30.9
--- NOTE | 2024-07-27 13:40 | EDRN ---
Dr. Woods in to see pt.
--- NOTE | 2024-07-27 14:18 | EDRN ---
Attempted IV access w/out success, was able to draw and send ordered bloods. Eula BORJAS in room attempting IV access w/ US at this time. Pt is awaiting to go to [facility] for paracentesis.
[2024-07-27 14:47] LABS: % Basophils 0.6 % (0-2); % Eosinophils 3.5 % (0-6); % Immature Granulocytes 0.3 % (0-0.5); % Lymphocytes 19.4 % (20.5-51.1); % Monocytes 9.1 % (1.7-9.3); % Neutrophils 67.1 % (42.2-75.2); Absolute Eosinophils 0.1 10^3/uL (0-0.7); Absolute Lymphocytes 0.7 10^3/uL (1.2-3.4); Absolute Monocytes 0.3 10^3/uL (0.1-0.6); Absolute Neutrophils 2.3 10^3/uL (1.4-6.5); Hematocrit 23.1 % (39.0-52.0); Mean Corp Hgb Conc. 34.6 g/dL (33.0-37.0); Mean Corpuscular Hgb 30.9 pg (27.0-31.0); Mean Corpuscular Volume 89.2 fL (80.0-94.0); Mean Platelet Volume 10.1 fL (7.4-10.4); Nucleated Red Blood Cells % 0 % (-); Platelet Count 62 10^3/uL (130-400); Red Blood Cell Count 2.59 10^6/uL (4.70-6.10); Red Cell Dist. Width 18.4 % (11.5-14.5); White Blood Cell Count 3.4 10^3/uL (4.8-10.8)
--- NOTE | 2024-07-27 14:54 | ED.GENMED ---
History of Present Illness
General
Chief Complaint: Abdominal Symptoms
Source: patient, records and spouse
Exam Limitations: none
Time Seen by Provider: 07/27/24 13:32
Nursing documentation reviewed up to this point in time: agreed with
History of Present Illness
History of Present Illness:
59-year-old male with a past medical history of COPD, decompensated cirrhosis secondary to alcohol and hepatitis, recurrent ascites, recurrent GI bleeding who presents to the emergency room for evaluation after an episode of lightheadedness also
having some abdominal discomfort and distention. He is specifically requesting paracentesis. Patient was recently admitted 07/19 until 07/22 for recurrent GI bleed, acute on chronic anemia. During this hospitalization he received blood transfusions
and IV iron. He was treated for possible SBP with antibiotics and had paracentesis to drain 4.5 L. He was started on Coreg to hopefully help with portal venous hypertension and resultant gastropathy/GI bleeding. He presents today after an episode
of lightheadedness�he reports he was on the toilet having a bowel movement and became diaphoretic and lightheaded and very weak. He did not pass out. He did have a bowel movement he said it was slightly dark nonbloody. He says during the episode
he had some abdominal pain and he does note that over the past few days he has been having increased abdominal distention. He says that his symptoms have resolved aside from feeling discomfort from abdominal distention. Came to the ER for
evaluation hoping for paracentesis also requesting to check his hemoglobin after this episode to evaluate for signs of anemia.
Past History
Past History
ED Past Medical History: COPD, CVA, HTN, Psychiatric and Other
ED Past Surgical History: Other
Social History
Tobacco: Smoker
Alcohol: Former
Drug: None
Personal:
Living: with family
Employment: Employed
Family History
Family History: Diabetes and Other
Review of Systems
Review of Systems
All Other Systems: ROS reviewed and negative except as documented in HPI and ROS
Constitutional: Reports fatigue; Denies fever or chills
EENT: Denies sore throat or runny nose
Respiratory: Denies cough or trouble breathing
Cardiac: Reports diaphoresis; Denies chest pain or palpitations
ABD/GI: Reports abdominal pain and black stools; Denies nausea or vomiting
: Denies flank pain
Musculoskeletal: Denies neck pain or back pain
Neurological: Reports dizzy; Denies headache
Phy Exam
Physical Exam
Physical Exam:
General: Awake, alert, oriented x3; no acute distress
Head: Normocephalic, atraumatic
Eyes: Conjunctiva normal, sclera anicteric
Throat: Airway intact, handling secretions
Neck: Trachea midline, supple without meningismus
Lungs: Faint scattered wheezing, normal respiratory rate, normal work of
Heart: Regular rate and rhythm, no murmurs, gallops, or rubs
Abd: Firm and distended with positive fluid wave, very mild diffuse tenderness but not peritoneal
Rectal: Dark brown stool, weakly positive Hemoccult, no gross blood or melena
Neuro: No gross deficits
Extremities: Bilateral lower extremity edema, +2 pitting; extremities warm and well-perfused
Scores
Heart Failure Risk
Heart Failure Risk Score: Not Applicable
Heart Score for Chest Pain Patients
STEMI patient?: Not applicable
Withdrawal Assessment of Alcohol
Withdrawal Assessment Completed?: Not applicable
Course
Orders/Labs/Results
Orders:
Orders
07/27/24 14:04
Complete Blood Count/With Diff Urgent
Comprehensive Metabolic Panel Urgent
07/27/24 14:05
[facility] CONSULT Urgent
Consulting Provider: Roger Bailon
Was physician already notified: Yes
Reason for Consult/Procedure: paracentesis
Acknowledgement that appropriate orders are entered: Yes
07/27/24 14:46
Alprazolam [Xanax] 1 mg PO NOW STA
Tramadol HCl [Ultram] 50 mg PO NOW STA
07/27/24 14:59
PTT Routine
Prothrombin Time Routine
07/27/24 15:00
Electrocardiogram (*1) Urgent
Reason for Study: Vertigo / Dizzy
EKG- Treatment ONCE
07/27/24 15:41
Body Fluid Cell Count Routine
What is the Body Fluid: peritoneal fluid
Date Specimen was Collected: 07/27/24
Time Specimen was Collected: 15:39
Comment: post procedure
Body Fluid LDH Routine
Fluid Source: Peritoneal (Ascites)
Date Specimen was Collected: 07/27/24
Time Specimen was Collected: 15:39
Body Fluid Protein Routine
Fluid Source: Peritoneal (Ascites)
Date Specimen was Collected: 07/27/24
Time Specimen was Collected: 15:39
Fluid Culture with Gram Stain Routine
LOVE Source: Peritoneal Fluid
Specimen Description:
Date Specimen was Collected: 07/27/24
Time Specimen was Collected: 15:39
Comment: Post Procedure
07/27/24 16:45
Albumin Human 25% 100 ml [Flexbumin] 25 grams in 100 ml IV TODAY
07/27/24 18:25
Albumin Human 25% 50 ml [Flexbumin] 12.5 grams in 50 ml IV TODAY
Abnormal Lab Results
07/27/24 07/27/24
14:04 14:59
WBC 3.4 L 10^3/uL
(4.8-10.8)
RBC 2.59 L 10^6/uL
(4.70-6.10)
Hgb 8.0 L g/dL
(13.0-18.0)
Hct 23.1 L %
(39.0-52.0)
RDW 18.4 H %
(11.5-14.5)
Plt Count 62 L D 10^3/uL
(130-400)
Absolute Lymphs (auto) 0.7 L 10^3/uL
(1.2-3.4)
Lymphocytes % 19.4 L %
(20.5-51.1)
PT 17.1 H Sec
(11.4-14.6)
Sodium 132 L mmol/L
(135-145)
Glucose 121 H mg/dl
(70-99)
Calcium 8.3 L mg/dl
(8.4-10.2)
Total Bilirubin 2.3 H mg/dl
(0.2-1.3)
Alkaline Phosphatase 141 H U/L
(38-126)
Total Protein 4.4 L g/dl
(6.3-8.2)
Albumin 2.4 L g/dl
(3.5-5.0)
07/27/24 14:04
07/27/24 14:04
Vital Signs
Initial and Last Documented VS:
Initial Vital Signs
Temp Pulse Resp BP Pulse Ox
36.7 C 73 18 87/57 96
07/27/24 13:17 07/27/24 13:17 07/27/24 13:17 07/27/24 13:17 07/27/24 13:17
Last Documented Vital Signs
Temp Pulse Resp BP Pulse Ox
36.6 C 74 16 104/56 97
07/27/24 15:30 07/27/24 16:14 07/27/24 16:14 07/27/24 16:14 07/27/24 15:30
MDM/Problems Addressed
Differential Diagnosis Includes:
Lightheadedness: Vasovagal syncope while having a bowel movement, GI bleed/symptomatic anemia, hypotension related to recent initiation of Coreg, dehydration
Abdominal pain/distention: Symptomatic ascites, SBP
MDM/Problems Addressed:
59-year-old male with recurrent GI bleeding, recurrent ascites in the setting of cirrhosis presents for evaluation after an episode of lightheadedness and diaphoresis, also having some abdominal pain/distention over the past few days. Hypotensive
87/57 on arrival, blood pressure has improved somewhat to 112/58 on my assessment. Heart rate in the 70s. Rest of vitals normal. Physical exam as above. Plan to check an EKG. Will send labs including a CBC and a CMP, coags. Case discussed with
interventional radiology for paracentesis. Send fluid studies. Reassess after the above.
Labs reviewed: CBC shows hemoglobin of 8.0 essentially stable, thrombocytopenia slightly down from prior. INR acceptable 1.4. CMP no clinically significant abnormalities. Discussed with interventional radiology, patient going to [facility] now for
paracentesis.
Fluid study showed no signs of SBP. Patient feeling much better after paracentesis. Will order albumin status post 6.6 L drained. He has follow-up paracentesis scheduled for 08/06/2024. Vitals have been stable. Case was discussed with GI given
weakly positive Hemoccult marginal hemoglobin drop and complicated GI history�safest course would be admission for observation and serial hemoglobins but patient did have recent upper endoscopy which showed no varices, nothing that would be at high
risk for brisk GI bleeding and so if patient is resistant to admission not unreasonable to discharge with strict return precautions and close outpatient follow-up for repeat labs. I spoke to the patient and I actually did recommend admission to the
hospital but he is very resistant to admission and he says that he wishes to be discharged after he receives albumin. Spoke about risks of discharge given above findings, he indicates understanding. Using shared decision making he will be
discharged with plan for repeat hemoglobin on Tuesday. His is in the room with him and I spoke with him and his about returning if he has episodes of melena or repeated black stools or if he is feeling short of breath, dizzy/lightheaded or
any other issues. Will discharge pending albumin infusion.
Chronic conditions affecting care:
Cirrhosis
*Pulse Oximetry
Patient hypoxic: no
*EKG
Interpreted by ED Provider?: Yes
Heart Rate: 70
Rate: normal
Rhythm: sinus and PAC's
Gardner: normal axis
Interval: normal interval
QRS Pattern: normal QRS
Ischemia: no ischemia
*Critical Care Note
Total Time (30-74mins, 75-104mins- exclusive of procedures): Not Applicable
Data Reviewed
Source: patient, records and spouse
Patient Management
Discussion with other providers: Epidemiology Investigator (Discussed with interventional radiology, discussed with gastroenterology)
Escalation/DeEscalation of care consider admission/obs:
Admission indicated and recommended but patient very resistant to admission�after long discussion and using shared decision making we will plan to discharge with strict return precautions and close outpatient follow-up plan
ED Attending Note
-
Portions of this chart may have been created with voice recognition software.� Occasional wrong word or��sound alike� substitutions may have occurred due to the inherent limitations of voice recognition software.
Discharge Plan
Departure
Patient Disposition: Home (Routine Discharge)
Date of Disposition: 07/27/24
Time of Disposition: 17:04
Patient with high blood pressure during this ER visit?: No
Discharge Problem:
Lightheadedness, Abdominal ascites, Anemia
Instructions: Gastrointestinal Bleeding (DC), Abdominal Paracentesis (DC)
Prescriptions:
No Action
furosemide [Lasix] 40 mg Tablet
40 mg PO DAILY
alprazolam 1 mg tablet
1 mg PO BID@0800,1800
Patient Comments:
07/19/2024: last filled 06/12/24, 180 tabs for 90 days from [facility]
thiamine HCl (vitamin B1) 100 mg tablet
100 mg PO DAILY
Breztri Aerosphere 160-9-4.8 mcg/actuation Hfa Aerosol Inhaler
2 inh INHALATION R BID
spironolactone 50 mg tablet
50 mg PO DAILY
Xifaxan 550 mg Tablet
550 mg PO BID
magnesium oxide 400 mg magnesium Tablet
400 mg PO BID
tramadol 50 mg Tablet
50 mg PO BIDPRN PRN (Reason: severe pain)
lactulose 20 gram/30 mL Solution
20 g PO TID Qty: 2880 0RF
miconazole nitrate [Miconazorb AF] 2 % Powder
1 applic topical BID 7 Days Qty: 85 0RF
lidocaine 4 % Adhesive Patch,Medicated
1 patch topical DAILY 30 Days Qty: 30 0RF
nicotine 21 mg/24 hr Patch 24 Hour
21 mg transdermal DAILY Qty: 30 0RF
carvedilol [Coreg] 6.25 mg tablet
6.25 mg PO BID Qty: 60 0RF
cefdinir 300 mg capsule
300 mg PO BID 4 Days Qty: 8 0RF
pantoprazole [Protonix] 40 mg Tablet,Delayed Release (Dr/Ec)
40 mg PO DAILY Qty: 0 0RF
Referrals:
Drake Goss DO [Family Provider] - Follow up in 2-3 days (You must follow-up for repeat hemoglobin on Tuesday as we discussed.)
Activity Restrictions/Additional Instructions:
You have a follow-up appointment for another paracentesis on 08/06/2024�she should keep this appointment as discussed. You should return to the emergency room immediately if you notice recurrent black stools, bloody stools, shortness of breath,
dizziness/lightheadedness or any other concerning symptoms. You must have a repeat hemoglobin done on Tuesday as we discussed.
Thank you for visiting the Emergency Department at [facility].
1. Please schedule a follow up appointment as directed. Call first thing tomorrow morning to make an appointment.
2. If indicated, please take your medications as instructed and indicated on discharge paperwork.
3. If any of your symptoms do not improve, or persist, or become more severe within 6-12 hours, please return to the emergency department for further care.
4. Please return to the emergency department if you develop a headache, neck pain/stiffness, fever greater than 100.4F, chest pain, shortness of breath, persistent nausea, vomiting, slurred speech, difficulty walking, numbness/tingling, weakness,
signs of infection or any other symptoms that are worrisome to you.
Please call [phone] if you have any questions.
Interventions
Interventions:
*Risk Screen - Suicide Last Done: 07/27/24 13:16
*General Assessment Last Done: 07/27/24 13:16
*Neglect/Abuse Screening Last Done: 07/27/24 13:16
ED- Fall Risk Assessment Last Done: 07/27/24 14:45
*ED COVID-19 Vaccine History Last Done: 07/27/24 13:51
KL-Ysmxyk-Lxcbcgcvmx Assessment Last Done: 07/27/24 14:45
ED- Cardiac Assessment Last Done: 07/27/24 14:45
ED- Neurological Assessment Last Done: 07/27/24 14:45
ED- Pulmonary Assessment Last Done: 07/27/24 14:45
Discharge Date and Time
Print Language: AMERICAN
[2024-07-27 15:01] LABS: ALT (SGPT) 23 U/L (0-50); AST (SGOT) 59 U/L (17-59); Albumin 2.4 g/dl (3.5-5.0); Alkaline Phosphatase 141 U/L (38-126); Blood Urea Nitrogen 18 mg/dl (9-20); Calcium 8.3 mg/dl (8.4-10.2); Carbon Dioxide 24 mmol/L (22-30); Chloride 102 mmol/L (98-107); Estimated Creatinine Clearance 91 ml/min; Glucose 121 mg/dl (70-99); Potassium 4.1 mmol/L (3.5-5.1); Sodium 132 mmol/L (135-145); Total Bilirubin 2.3 mg/dl (0.2-1.3); Total Protein 4.4 g/dl (6.3-8.2); eGFR > 60.00
[2024-07-27] MEDS: XANAX 1 MG PO (15:09)
[2024-07-27] MEDS: ULTRAM 50 MG PO (15:11)
[2024-07-27 15:22] LABS: INR 1.41; PT 17.1 Sec (11.4-14.6)
[2024-07-27 15:23] LABS: APTT 32.9 Sec (23.4-35.0)
[2024-07-27 16:18] LABS: Body Fluid LDH < 90 U/L; Body Fluid Protein < 2.0 g/dl
[2024-07-27 16:20] LABS: Body Fluid Mononuclear 85.9 %; Body Fluid Polymorphonuclear 14.1 %; Body Fluid WBC 71 /CUMM
[2024-07-27 16:21] LABS: Body Fluid Second Tech BP
--- NOTE | 2024-07-27 16:25 | EDRN ---
Pt is returning from IR at this time. Estefany RN gave this RN report that 6.6 liters drained from pt's ABD w/ paracentesis, bandaid CDI, and appt set up for next paracentesis.
[2024-07-27] MEDS: FLEXBUMIN 100 IV (16:49)
[2024-07-27] MEDS: FLEXBUMIN 50 IV (18:21)
== END 2024-07-27 20:30 | disposition home or self-care (01) ==
LOC: EMR 13:11
PROVIDERS: CONSULT PHYSICIAN Radiology Vascular & Interventional Radiology; EMERGENCY PHYSICIAN Emergency Medicine; FAMILY PHYSICIAN Internal Medicine
DX: R42 Dizziness and giddiness (principal); R10.9 Unspecified abdominal pain; R14.0 Abdominal distension (gaseous); R53.1 Weakness; D64.9 Anemia, unspecified; K70.31 Alcoholic cirrhosis of liver with ascites; R60.0 Localized edema; J44.9 Chronic obstructive pulmonary disease, unspecified; K31.9 Disease of stomach and duodenum, unspecified; F41.9 Anxiety disorder, unspecified; I10 Essential (primary) hypertension; F17.200 Nicotine dependence, unspecified, uncomplicated; Z86.73 Personal history of transient ischemic attack (TIA), and cerebral infarction without residual deficits; Z87.01 Personal history of pneumonia (recurrent)
CPT/HCPCS: 99285; 96365; 96366; 49083; 80053; 83615; 84157; 85025; 85610; 85730; 87015; 87070; 87205; 89051; 93005; P9047

== ENCOUNTER → 2024-07-30 07:42 | Outpatient (REF) | payer BC, SELFPAY ==
[2024-07-30 09:31] LABS: % Basophils 1.2 % (0-2); % Eosinophils 4.5 % (0-6); % Immature Granulocytes 0.5 % (0-0.5); % Lymphocytes 20.2 % (20.5-51.1); % Monocytes 10.7 % (1.7-9.3); % Neutrophils 62.9 % (42.2-75.2); Absolute Basophils 0.1 10^3/uL (0-0.2); Absolute Eosinophils 0.2 10^3/uL (0-0.7); Absolute Lymphocytes 0.9 10^3/uL (1.2-3.4); Absolute Monocytes 0.5 10^3/uL (0.1-0.6); Absolute Neutrophils 2.6 10^3/uL (1.4-6.5); Hematocrit 23.2 % (39.0-52.0); Hemoglobin 7.7 g/dL (13.0-18.0); Mean Corp Hgb Conc. 33.2 g/dL (33.0-37.0); Mean Corpuscular Volume 93.5 fL (80.0-94.0); Nucleated Red Blood Cells % 0 % (-); Platelet Count 86 10^3/uL (130-400); Red Blood Cell Count 2.48 10^6/uL (4.70-6.10); Red Cell Dist. Width 18.2 % (11.5-14.5); White Blood Cell Count 4.2 10^3/uL (4.8-10.8)
== END ==
LOC: REG 07:42
PROVIDERS: ATTENDING PHYSICIAN Internal Medicine
DX: F10.10 Alcohol abuse, uncomplicated (principal); D64.9 Anemia, unspecified
CPT/HCPCS: 36415; 85025

== ENCOUNTER 2024-08-02 18:41 | Inpatient (IN) | payer BC, SELFPAY ==
[2024-08-02] VITALS (12 sets, daily range): BP systolic 110–140; BP diastolic 59–83; BMI 27.9; BMI 27.0
--- NOTE | 2024-08-02 13:39 | ED.GENMED ---
History of Present Illness
General
Chief Complaint: Weakness
Time Seen by Provider: 08/02/24 13:23
History of Present Illness
History of Present Illness:
59-year-old male with history of COPD, hepatic cirrhosis, and prior stroke presents to the emergency department for evaluation of general weakness, lethargy, and confusion. Referred in by his [place] data processing operator. is concerned about anemia. He
has reportedly been compliant with his home meds up until this morning. No reported fevers. also notes intermittent black and bloody bowel movements
Past History
Past History
ED Past Medical History: COPD, CVA, HTN, Psychiatric and Other
ED Past Surgical History: Other
Social History
Tobacco: Smoker
Alcohol: Former
Drug: None
Personal:
Living: with family
Employment: Employed
Family History
Family History: Diabetes and Other
Review of Systems
Review of Systems
Allergies reviewed?: Yes
All Other Systems: ROS reviewed and negative except as documented in HPI and ROS
Phy Exam
Physical Exam
Physical Exam:
GEN: Chronically ill-appearing, no distress
HEENT: Oral mucosa moist, no scleral icterus
Cardiac: Regular rate and rhythm, no murmurs
Lung: No respiratory distress, no tachypnea, lungs clear to auscultation bilaterally with poor inspiratory effort
Abdomen: Protuberant with obvious ascites, grossly nontender
MSK: Gross anasarca with edema extending from the abdomen to the scrotum/perineum and into the lower extremities
Skin: Good color, no pallor or jaundice, no rashes
Neuro: AO x3, moves all extremities freely
Psych: Calm, cooperative
Course
Orders/Labs/Results
Orders:
Orders
08/02/24 13:39
Urinalysis Reflex To Culture Urgent
08/02/24 13:58
Ammonia Urgent
Complete Blood Count/With Diff Urgent
Prothrombin Time Urgent
08/02/24 15:27
Comprehensive Metabolic Panel Urgent
08/02/24 17:39
Admit/Transfer Patient As Directed
Co-Sign Provider:
Level of Care: Inpatient admission
Assign to:: Medical/Surgical
Physician / Group: Dr Le
Diagnosis: Aletered mental status, decompasited cirrhosis
Reason for Hospitalization: Altered Mental status. paracentesis, GI consult
Expected length of stay greater than two midnights?: Yes
ELOS- Estimated Length of Stay in days: 3
I certify the patient meets the requirements for IP care: Yes
PRN Pain Medication Management As Directed
May give lesser potent ordered pain med per pt: Yes
preference::
Protocol:: Medication orders for pain may be administered in a
manner that supports deferring to patient preference
when the pt is:
-Requesting an ordered lesser potent pain medication.
Least to most potent pain medications are defined as:
acetaminophen < NSAID < tramadol < opioids (morphine,
oxycodone, hydromorphone).
- Requesting a lesser dose of the same medication IF
ORDERED.
- Requesting a less intrusive route of administration
if both routes are prescribed by the provider (PO <
IV).
08/02/24 17:45
Lactulose [Duphalac/Chronulac] 20 grams PO NOW STA
Abnormal Lab Results
08/02/24 08/02/24
13:58 15:27
RBC 2.76 L 10^6/uL
(4.70-6.10)
Hgb 8.4 L g/dL
(13.0-18.0)
Hct 25.4 L %
(39.0-52.0)
RDW 17.8 H %
(11.5-14.5)
Plt Count 111 L D 10^3/uL
(130-400)
Absolute Monos (auto) 0.8 H 10^3/uL
(0.1-0.6)
Monocytes % 10.1 H %
(1.7-9.3)
PT 16.7 H Sec
(11.4-14.6)
Sodium 133 L mmol/L
(135-145)
Potassium 5.3 H mmol/L
(3.5-5.1)
BUN 32 H mg/dl
(9-20)
Glucose 120 H mg/dl
(70-99)
Calcium 8.3 L mg/dl
(8.4-10.2)
Total Bilirubin 2.7 H mg/dl
(0.2-1.3)
Ammonia 69 H umol/L
(9-30)
Total Protein 4.6 L g/dl
(6.3-8.2)
Albumin 2.7 L g/dl
(3.5-5.0)
08/02/24 13:58
08/02/24 15:27
Vital Signs
Initial and Last Documented VS:
Initial Vital Signs
Temp Pulse Resp BP Pulse Ox
98.3 F 85 18 119/59 95
08/02/24 13:16 08/02/24 13:16 08/02/24 13:16 08/02/24 13:16 08/02/24 13:16
Last Documented Vital Signs
Temp Pulse Resp BP Pulse Ox
98.3 F 93 21 140/73 92
08/02/24 13:16 08/02/24 17:30 08/02/24 17:30 08/02/24 16:32 08/02/24 17:30
MDM/Problems Addressed
MDM/Problems Addressed:
Patient's hemoglobin is up trended however he has elevated ammonia levels which likely explains his mental status. Will admit to the hospitalist service for hepatic encephalopathy. Do not see any urgency in paracentesis as he complains of no
abdominal pain has no fever thus do not have a high suspicion for SBP
*Critical Care Note
Total Time (30-74mins, 75-104mins- exclusive of procedures): Not Applicable
ED Attending Note
-
Portions of this chart may have been created with voice recognition software.� Occasional wrong word or��sound alike� substitutions may have occurred due to the inherent limitations of voice recognition software.
Discharge Plan
Departure
Patient Disposition: Admit
Date of Disposition: 08/02/24
Time of Disposition: 15:34
Admit to: Med/Surg
Presentation/result/management discussed w/ accepting MD/DO: Hospitalist
Discharge Problem:
Acute hepatic encephalopathy
Prescriptions:
No Action
furosemide [Lasix] 40 mg Tablet
40 mg PO DAILY
alprazolam 1 mg tablet
1 mg PO BID@0800,1800
Patient Comments:
08/02/2024: last filled 06/12/24, 180 tabs for 90 days from [facility] [employer] [facility]
thiamine HCl (vitamin B1) 100 mg tablet
100 mg PO DAILY
Breztri Aerosphere 160-9-4.8 mcg/actuation Hfa Aerosol Inhaler
2 inh INHALATION R BID
spironolactone 50 mg tablet
50 mg PO DAILY
Xifaxan 550 mg Tablet
550 mg PO BID
magnesium oxide 400 mg magnesium Tablet
400 mg PO BID
tramadol 50 mg Tablet
50 mg PO BID
lactulose 20 gram/30 mL Solution
20 g PO TID Qty: 2880 0RF
miconazole nitrate [Miconazorb AF] 2 % Powder
1 applic topical BID 7 Days Qty: 85 0RF
lidocaine 4 % Adhesive Patch,Medicated
1 patch topical DAILY 30 Days Qty: 30 0RF
nicotine 21 mg/24 hr Patch 24 Hour
21 mg transdermal DAILY Qty: 30 0RF
carvedilol [Coreg] 6.25 mg tablet
6.25 mg PO BID Qty: 60 0RF
Patient Comments:
08/02/24: When health education aide with spouse, she stated patient should be reevaluated for this medication.
pantoprazole [Protonix] 40 mg tablet,delayed release (DR/EC)
40 mg PO BID
Referrals:
Drake Goss DO [Family Provider] -
Interventions
Interventions:
*Risk Screen - Suicide Last Done: 08/02/24 13:13
*General Assessment Last Done: 08/02/24 13:16
*Neglect/Abuse Screening Last Done: 08/02/24 13:48
ED- Fall Risk Assessment Last Done: 08/02/24 13:48
*ED COVID-19 Vaccine History Last Done: 08/02/24 13:16
ED- Cardiac Assessment Last Done: 08/02/24 13:48
ED- Neurological Assessment Last Done: 08/02/24 13:48
ED- Pulmonary Assessment Last Done: 08/02/24 13:48
Discharge Date and Time
Print Language: URDU
[2024-08-02 14:12] LABS: % Basophils 0.9 % (0-2); % Eosinophils 2.8 % (0-6); % Immature Granulocytes 0.4 % (0-0.5); % Lymphocytes 22.4 % (20.5-51.1); % Monocytes 10.1 % (1.7-9.3); % Neutrophils 63.4 % (42.2-75.2); Absolute Basophils 0.1 10^3/uL (0-0.2); Absolute Eosinophils 0.2 10^3/uL (0-0.7); Absolute Lymphocytes 1.7 10^3/uL (1.2-3.4); Absolute Monocytes 0.8 10^3/uL (0.1-0.6); Absolute Neutrophils 4.7 10^3/uL (1.4-6.5); Hematocrit 25.4 % (39.0-52.0); Hemoglobin 8.4 g/dL (13.0-18.0); Mean Corp Hgb Conc. 33.1 g/dL (33.0-37.0); Mean Corpuscular Hgb 30.4 pg (27.0-31.0); Mean Platelet Volume 9.9 fL (7.4-10.4); Nucleated Red Blood Cells % 0 % (-); Platelet Count 111 10^3/uL (130-400); Red Blood Cell Count 2.76 10^6/uL (4.70-6.10); Red Cell Dist. Width 17.8 % (11.5-14.5); White Blood Cell Count 7.5 10^3/uL (4.8-10.8)
[2024-08-02 14:21] LABS: INR 1.34; PT 16.7 Sec (11.4-14.6)
[2024-08-02 14:25] LABS: Ammonia 69 umol/L (9-30)
[2024-08-02 15:53] LABS: ALT (SGPT) 25 U/L (0-50); AST (SGOT) 55 U/L (17-59); Albumin 2.7 g/dl (3.5-5.0); Alkaline Phosphatase 87 U/L (38-126); Blood Urea Nitrogen 32 mg/dl (9-20); Calcium 8.3 mg/dl (8.4-10.2); Carbon Dioxide 26 mmol/L (22-30); Chloride 102 mmol/L (98-107); Estimated Creatinine Clearance 81 ml/min; Glucose 120 mg/dl (70-99); Potassium 5.3 mmol/L (3.5-5.1); Sodium 133 mmol/L (135-145); Total Bilirubin 2.7 mg/dl (0.2-1.3); Total Protein 4.6 g/dl (6.3-8.2); eGFR > 60.00
[2024-08-02] MEDS: DUPHALAC/CHRONULAC 20 GRAMS PO (17:55)
--- NOTE | 2024-08-02 18:06 | HPS.HSE ---
Addendum entered and electronically signed by Yumiko Le MD 08/02/24 20:03:
I personally performed a history and physical exam of the patient and discussed management with the resident. I reviewed the resident's note and agree with the documented findings and plan of care HPI/CC.
GENERAL: well developed, well nourished, chronically ill apprearing male in no apparent distress
HEENT: NC/AT--scab on the tip of his nose
HEART: regular rate and rhythm, +S1, +S2
LUNGS : crackles/rhonchi at bases bilaterally
ABDOM: soft, nontender, distended with fluid wave, + bowel sounds
EXT: no cyanosis, clubbing--3+ LE edema bilaterally
NEUROLOGIC: slowed verbal responses, oriented
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
20 mg QID, follow ammonia in AM, hold xanax, check CXR looking for PNA
Decompensated cirrhosis with abdominal ascites due to history of alcohol and hepatitis C virus- Continue Lasix and Aldactone, Xifaxan- Start ceftriaxone for SBP prophylaxis--Continue PPI--GI consult--IR consult for paracentesis, studies ordered
Anemia due chronic disease--no active bleeding but reported black stools--check iron, TIBC, %SAT, ferritin, retic count, B12, folate--Hgb 8.4--Transfusion can be considered if hgb level<7--heme test stools
Pain-Lidocaine patch for right shoulder pain--Tylenol PRN--Toradol PRN
Hyperkalemia/hyponatremia--likely due to fluid shifts/balance/diuretics--follow--if concerned for adrenal insufficiency, check AM cortisol level
COPD with acute exacerbation?--Continue Breztri--Chest X- Ray was ordered
DVT Prox: SCD, Lovenox
Code Status: Full Code
Original Note:
Family Physician
-
Family Physician: Drake Goss
Chief Complaint
-
Altered Mental Status, Recurrent abdominal ascites
History of Present Illness
The patient is a 59 year old male who presented to ER for evaluation of general weakness, lethargy, and confusion. The patient has a PMH of decompensated liver cirrhosis with ethology of viral/alcohol, previous GI bleeding secondary to esophageal
varices as well as internal hemorrhoid bleeding based off of his colonoscopy, COPD, previous CVA. The patient has reportedly been compliant with his home meds up until this morning. His reported her concerning about anemia. No reported
fevers. also notes intermittent black and bloody bowel movements.
Medical History
Past Medical History
Past Medical History: Reports COPD and Other ( decompensated cirrhosis secondary to alcohol and hepatitis, recurrent ascites, recurrent GI bleeding, CVA )
Additional Past Medical History:
decompensated liver cirrhosis with ethology of viral/alcohol, previous GI bleeding secondary to esophageal varices as well as internal hemorrhoid bleeding based off of his colonoscopy, COPD, previous CVA
Past Surgical History: Reports Other
Additional Past Surgical History:
Repair of spinal fluid leak
Teeth extraction
Social History
Tobacco: Smoker (1 pack/daily )
Alcohol: Other (Stopped drinking one year ago )
Drug: None
Personal:
Living: With Family
Family History
Family History: Diabetes and Other
Allergies / Home Medications
Allergies reflects when Allergies were last updated in [facility].
Home Medications with original date entered in [facility]
Allergy/Medication List:
Allergies
Allergy/AdvReac Type Severity Reaction Status Date / Time
No Known Allergies Allergy Verified 08/02/24 13:19
Home Medications
alprazolam 1 mg tablet 1 mg PO BID@0800,1800 anxiety 03/13/24
furosemide 40 mg tablet (Lasix) 40 mg PO DAILY Fluid Retention/Swelling 03/13/24
thiamine HCl (vitamin B1) 100 mg tablet 100 mg PO DAILY Supplement 03/13/24
budesonide 160 mcg-glycopyr 9 mcg-formot 4.8 mcg/actuation HFA inhaler (Breztri Aerosphere) 2 inh inhalation R BID Lung/Breathing Issues 04/11/24
spironolactone 50 mg tablet 50 mg PO DAILY Liver Issues 04/17/24
magnesium oxide 400 mg PO BID Supplement 06/28/24
rifaximin 550 mg tablet (Xifaxan) 550 mg PO BID hepatic encephalopathy 06/28/24
tramadol 50 mg tablet 50 mg PO BID 06/28/24
lactulose 20 gram/30 mL oral solution 20 g (30 mL) PO TID Liver issues #2,880 mL 07/01/24
carvedilol 6.25 mg tablet (Coreg) 6.25 mg PO BID #60 tabs 07/22/24
lidocaine 4 % topical patch 1 patch topical DAILY 30 days #30 ea 07/22/24
miconazole nitrate 2 % topical powder (Miconazorb AF) 1 applic topical BID 7 days #85 grams 07/22/24
nicotine 21 mg/24 hr daily transdermal patch 21 mg transdermal DAILY #30 ea 07/22/24
pantoprazole 40 mg tablet,delayed release (Protonix) 40 mg PO BID Gastrointestinal Issue 08/02/24
Review of Systems
-
EENT: Reports No Symptoms
Respiratory: Reports Other (SOB not severe )
Cardiac: Reports No Symptoms
Abdomen/GI: Reports See HPI
: Reports No Symptoms
Musculoskeletal: Reports See HPI
Skin: Reports No Symptoms
Neurological: Reports Other (reports some confusion today )
Physical Exam
Vital Signs
Vital Signs
Temp Pulse Resp BP Pulse Ox
98.3 F 93 21 140/73 92
08/02/24 13:16 08/02/24 17:30 08/02/24 17:30 08/02/24 16:32 08/02/24 17:30
Physical Exam
General: Appears Chronically Ill
HEENT: NormoCephalic
Respiratory: Crackles (bilateral lung base )
Cardiac: S1/S2 and Regular Rhythm
GI: Distended
Genito-urinary: Deferred by me
Musculoskeletal: No Cyanosis, Edema, Left Lower Extremity and Edema, Right Lower Extremity
Skin: Warm and Dry
Neuro: Awake, Alert, Oriented and AO x 3
Laboratory Results
-
08/02/24 13:58
08/02/24 15:27
Laboratory Results
PT 16.7 Sec (11.4-14.6) H 08/02/24 13:58
INR 1.34 08/02/24 13:58
Total Bilirubin 2.7 mg/dl (0.2-1.3) H 08/02/24 15:27
AST 55 U/L (17-59) 08/02/24 15:
ALT 25 U/L (0-50) 08/02/24 15:27
Alkaline Phosphatase 87 U/L (38-126) 08/02/24 15:27
Impression/Plan
-
Assessment and Plan
Impression:The patient is a 59 year old male who presented to ER complaining from confusion, lethargy and general weakness. The patient had been recently admitted on 07/19 until 07/22 for recurrent GI bleed, acute on chronic anemia. During this
hospitalization he received blood transfusions and IV iron. He had been also treated for possible SBP with antibiotics and had paracentesis to drain. He was started on Coreg to hopefully help with portal venous hypertension and resultant
gastropathy/GI bleeding. Today he was refereed to ER by his [employer] occupational health technician. His reports intermittent black and bloody bowel movements. The patient was admitted to be observed for his altered mental status.
Assessment: Altered mental status, Decompensated cirrhosis with abdominal ascites due to alcohol and hepatitis C virus
PLAN
#Altered Mental Status/Possible HX hepatic encephalopathy
-Head CT was ordered
-Ammonia is 69
-Follow up ammonia
#Decompensated cirrhosis with abdominal ascites due to alcohol and hepatitis C virus
- Continue Lasix and Aldactone, Xifaxan
- Start ceftriaxone for SBP prophylaxis
-Continue PPI
-GI cons
-IRAD cons for paracentesis
#Anemia due chronic disease
-Hgb 8.4
-Transfusion can be considered if hgb level<7
#Pain
Lidocaine patch for right shoulder pain
Tylenol PRN
Toradol PRN
#Hyperkalemia
K Level 5.3
Follow up CMP
#COPD
-Continue Breztri
-Chest X- Ray was ordered
DVT Prox: SCD, Lovenox
Code Status: Full Code
[2024-08-02 19:12] LABS: Urine Albumin Negative (Neg - Trace); Urine Bilirubin Negative (Negative); Urine Character Clear (Clear); Urine Color Yellow; Urine Glucose Negative (Negative); Urine Ketone Negative (Negative); Urine Leukocyte 1+ (Negative); Urine Nitrite Negative (Negative); Urine Occult Blood Negative (Negative); Urine Specific Gravity 1.015 (<1.030); Urine Urobilinogen Negative (Neg - 1+)
[2024-08-02 19:26] LABS: Urine Red Blood Cell 0-2 /HPF (0-2); Urine Squamous Cell 0-2 /LPF (Few)
[2024-08-02] MEDS: VITAMIN B1 100 MG PO (20:58)
[2024-08-02] MEDS: MAG-TAB SR 84 MG PO (20:58)
[2024-08-02] MEDS: PROTONIX 40 MG PO (20:58)
[2024-08-02] MEDS: ALDACTONE 50 MG PO (20:58)
[2024-08-02] MEDS: NICODERM TRANSDERMAL 21 MG TRANSDERM (20:58)
[2024-08-02] MEDS: XIFAXAN 550 MG PO (20:58)
[2024-08-02] MEDS: LASIX PO (21:05)
[2024-08-02] MEDS: STERILE WATER FOR INJECTION 10 ML IV (21:06)
[2024-08-02] MEDS: DUPHALAC/CHRONULAC PO (21:06)
[2024-08-02] MEDS: ROCEPHIN 1000 MG IV (21:06)
[2024-08-02] MEDS: DESENEX/MITRAZOL/ZEASORB 1 APPLIC TOPICAL (21:07)
[2024-08-02] MEDS: SYMBICORT 160/4.5 MCG INHALER INH (21:32)
[2024-08-02] MEDS: XANAX 1 MG PO (21:48)
[2024-08-03] VITALS (14 sets, daily range): BP systolic 91–160; BP diastolic 41–80; BMI 27.7
[2024-08-03] MEDS: TORADOL 10 MG PO (05:24)
[2024-08-03] MEDS: DUONEB 3 ML INH (06:07)
[2024-08-03] MEDS: SPIRIVA RESPIMAT 2.5 MCG 2 PUFF INH (06:07)
[2024-08-03] MEDS: SYMBICORT 160/4.5 MCG INHALER 2 PUFF INH ×2 (06:07→20:12)
[2024-08-03 06:32] LABS: Ammonia 24 umol/L (9-30)
[2024-08-03 06:38] LABS: % Basophils 0.8 % (0-2); % Eosinophils 3.1 % (0-6); % Immature Granulocytes 0.3 % (0-0.5); % Lymphocytes 12.8 % (20.5-51.1); % Monocytes 9.9 % (1.7-9.3); % Neutrophils 73.1 % (42.2-75.2); Absolute Basophils 0.1 10^3/uL (0-0.2); Absolute Eosinophils 0.2 10^3/uL (0-0.7); Absolute Lymphocytes 0.8 10^3/uL (1.2-3.4); Absolute Monocytes 0.6 10^3/uL (0.1-0.6); Absolute Neutrophils 4.5 10^3/uL (1.4-6.5); Hematocrit 20.4 % (39.0-52.0); Hemoglobin 6.9 g/dL (13.0-18.0); Mean Corp Hgb Conc. 33.8 g/dL (33.0-37.0); Mean Corpuscular Hgb 30.9 pg (27.0-31.0); Mean Corpuscular Volume 91.5 fL (80.0-94.0); Mean Platelet Volume 9.2 fL (7.4-10.4); Nucleated Red Blood Cells % 0 % (-); Platelet Count 88 10^3/uL (130-400); Red Blood Cell Count 2.23 10^6/uL (4.70-6.10); Red Cell Dist. Width 18.3 % (11.5-14.5); Reticulocyte Count 4.4 % (0.4-2.8); White Blood Cell Count 6.2 10^3/uL (4.8-10.8)
--- NOTE | 2024-08-03 06:50 | PTCARENOTE ---
MARCIA Jon notified regarding critical lab values this AM. Pt with no active signs of bleeding overnight, VSS. Plan of care ongoing.
--- NOTE | 2024-08-03 07:02 | W.PN.HOSP.TC ---
Today's Communication/Plan
-
Abdominal Ascites: IRAD removed 5700 clear yellow fluid this morning from the patient. Albumin and RBC transfusion was done. GI was consulted for assessment. Patient`s blood pressure started to be on the lower side and blood pressure medication
was hold on.
Assessment / Plan
Assessment / Plan
Impression/Plan
Assessment and Plan
Impression:The patient is a 59 year old male who presented to ER complaining from confusion, lethargy and general weakness. The patient had been recently admitted on 07/19 until 07/22 for recurrent GI bleed, acute on chronic anemia. During this
hospitalization he received blood transfusions and IV iron. He had been also treated for possible SBP with antibiotics and had paracentesis to drain. He was started on Coreg to hopefully help with portal venous hypertension and resultant
gastropathy/GI bleeding. Today he was refereed to ER by his [employer] dice person. His reports intermittent black and bloody bowel movements. The patient was admitted to be observed for his altered mental status.
Assessment: Altered mental status, Decompensated cirrhosis with abdominal ascites due to alcohol and hepatitis C virus
PLAN
#Altered Mental Status/Possible HX hepatic encephalopathy
-Head CT on 08/03: No acute intracranial abnormality identified. Unchanged chronic right frontal infarct as seen previously.
-Ammonia dropped from 69 to 24 today
-Follow up ammonia
#Decompensated cirrhosis with abdominal ascites due to alcohol and hepatitis C virus
- Continue Lasix and Aldactone, Xifaxan
- Continue ceftriaxone for SBP prophylaxis
-Continue PPI
-GI Recc: (daily INR/CMP, Ensure 2 gm Na+ restriction, regular diet,IV PPI 40 mg BiD,IV Ceftriaxone 1 gm, Titrate lactulose to 3-4 BMs while inpatient and Rifaximin 550 mg BiD, NSAID avoidance)
-IRAD cons for paracentesis and removed ~5.7 Liter of yellow clear liquid on 08/03 -on fluid analysis
-37.5g albumin given post paracentesis on 08/03
-GI discussed with primary residential carpenter at [facility], as patient MELD score is low no indication for emergent TIPS
#Acute Blood Loss Anemia on Chronic
-Black stool
-GI was informed
-Hgb 8.4 on 08/02 and 6.9 on 08/03
-1 RBC transfusion was done
-Another transfusion can be considered if hgb level<7
-Ferritin 50.4, SI 154, sat 49%, no indication for iron
#Hypotension
-Asymptomatic
-Hold nighttime Coreg dose.
-Morning Aldactone for tomorrow is on hold as well, will reevaluate and resume if appropriate.
#Pain
Lidocaine patch for right shoulder pain
Tylenol PRN
Toradol PRN
#Hyperkalemia/hyponatremia
-Likely due to fluid shifts/balance/diuretics--resolved
-Follow up CMP
#COPD
-Continue Breztri
-Chest X- Ray was ordered: Clear lungs. No significant change compared to prior study.
#Anxiety/Sleeping Problem:
-Taken off of xanax, discussed with spouse as well
- Psychiatry consulted for assessment
DVT Prox: SCD, Lovenox
Code Status: Full Code
Anticipated Discharge: 24 - 48 hours
Subjective/Interval History
-
Date of Service: August 03, 2024
The patient was seen in his bed today. He was orientedX3, he had some difficulty to reply the all questions. There was a guardian nurse near him who was talking with the patient to arrange a transportation to [facility] where he has his dice person.
Objective Data
-
Labs:
Laboratory Results
08/03/24
06:11
WBC 6.2
Hgb 6.9 L*
Hct 20.4 L*
Plt Count 88 L D
Sodium Pending
Potassium Pending
Chloride Pending
Carbon Dioxide Pending
BUN Pending
Creatinine Pending
Glucose Pending
Calcium Pending
Total Bilirubin Pending
AST Pending
ALT Pending
Alkaline Phosphatase Pending
Vital Signs:
Vital Signs
Temp Pulse Resp BP Pulse Ox
97.4 F 98 22 127/73 94
08/02/24 23:36 08/03/24 06:09 08/03/24 06:09 08/02/24 23:36 08/03/24 06:09
I&O
08/02/24 08/03/24 08/04/24
06:59 06:59 06:59
Intake Total 150 / 150
Output Total 75 / 75
Balance 75 / 75
Review of Systems
-
EENT: Reports No Symptoms Reported
Respiratory: Reports No Symptoms and Other
Cardiac: Reports No Symptoms
Abdomen/GI: Reports Other (See HPI )
Genitourinary: Reports No Symptoms
Musculoskeletal: Reports Other (See HPI )
Neuro: Reports Other (See HPI )
Physical Exam
-
General: Appears Chronically Ill
HEENT: Normocephalic and Atraumatic
Respiratory: Clear to Auscultation
Cardiac: Regular Rhythm and S1/S2
GI: Distended
Musculoskeletal: No Cyanosis, Edema, Right Lower Extrem and Edema, Left Lower Extrem
Skin: Warm and Dry
Neuro: Awake, Oriented, AO x 3 and Other (Some difficulty to focus )
[2024-08-03 07:09] LABS: ALT (SGPT) 22 U/L (0-50); AST (SGOT) 44 U/L (17-59); Albumin 2.3 g/dl (3.5-5.0); Alkaline Phosphatase 75 U/L (38-126); Blood Urea Nitrogen 31 mg/dl (9-20); Calcium 8.2 mg/dl (8.4-10.2); Carbon Dioxide 27 mmol/L (22-30); Chloride 103 mmol/L (98-107); Estimated Creatinine Clearance 81 ml/min; Glucose 110 mg/dl (70-99); Iron 154 ug/dl (49-181); Magnesium 2.2 mg/dl (1.6-2.3); Potassium 4.9 mmol/L (3.5-5.1); Sodium 135 mmol/L (135-145); Total Bilirubin 3.2 mg/dl (0.2-1.3); Total Protein 4.2 g/dl (6.3-8.2); eGFR > 60.00
[2024-08-03 07:17] LABS: Percent Saturation 49 % (20-50); Total Iron Binding Capacity 312 ug/dl (261-462)
[2024-08-03] MEDS: XIFAXAN 550 MG PO ×2 (07:29→19:29)
[2024-08-03] MEDS: PROTONIX 40 MG PO (07:29)
[2024-08-03] MEDS: NICODERM TRANSDERMAL 21 MG TRANSDERM (07:30)
[2024-08-03] MEDS: VITAMIN B1 100 MG PO (07:30)
[2024-08-03] MEDS: LASIX 40 MG PO (07:31)
[2024-08-03] MEDS: ALDACTONE 50 MG PO (07:31)
[2024-08-03] MEDS: DUPHALAC/CHRONULAC 20 GRAMS PO ×2 (07:31→13:30)
[2024-08-03] MEDS: MAG-TAB SR 84 MG PO ×2 (07:33→19:36)
[2024-08-03] MEDS: DESENEX/MITRAZOL/ZEASORB 1 APPLIC TOPICAL ×2 (07:33→19:28)
[2024-08-03] MEDS: ULTRAM 50 MG PO ×2 (07:34→19:29)
[2024-08-03 07:42] LABS: Ferritin 50.4 ng/ml (17.9-464.0)
[2024-08-03 08:13] LABS: Folate 5.5 ng/ml (2.76-20); Vitamin B12 684 pg/ml (239-931)
--- NOTE | 2024-08-03 08:28 | CON.GI ---
Addendum entered and electronically signed by Wilfredo Kee DO 08/03/24 10:52:
I saw and examined the patient.
The STACKER DRIVER's note was reviewed and I agree with the detailed note as below.
Comment: Mr. Mazariegos is a 59 y.o male with pmh of decompensated HCV/EtOH cirrhosis with decompensations including HE, ascites, recurrent GI bleeding 2/2 PHG (no EV/GV), chronic HCV (s/p Epclusa w/ SVR), hx of postpolypectomy bleeding, hx of CVA,
COPD and previous admissions here at [place] for recurrent HE as well as acute on chronic symptomatic anemia (admitted in 06/2024 and again most recently here on 07/19 - 07/22/2024) who presented to the ED with recurrent acute HE and dark black
stools. During his most recent hospitalization he was felt to have recurrent upper GI bleeding in setting of known oozing PHG which was also felt to be contributing to his HE as well as fatigue in setting of symptomatic anemia. He required blood
transfusions as well as IV Iron along with IV Octreotide and IV Ceftriaxone at that time. EGD was deferred as his last EGD was performed a few weeks earlier on 06/29/24 where he was found to have PHG with self-limited oozing seen in the stomach but
no evidence of EV/GV. He was ultimately started on Coreg (6.25 mg BiD) due to his oozing PHG and was eventually discharged. He recently saw his Transplant Legal Recruiter, Dr. Ebenezer Dan, on 08/02/24 for follow-up and was concerned about
recurrent HE in which patient was advised to come back to the ED. In speaking with patient's , concern that he missed a dose of lactulose and Rifaximin the day prior. Additionally, patient has been taking Xanax 1 mg BiD and Tramadol for sleep
and anxiety. He has had dark black stools as well. Etiology of his recurrent HE is multifactorial and suspect largely being driven by his recurrent bleeding PHG as seen during his last EGD (06/2024) further driving his acute on chronic symptomatic
anemia and fatigue. BUN 30s with normal Associate Professor Of Management which further supports likely oozing PHG. Also on benzos (Xanax 1 mg BiD) and Tramadol which is further predisposing him to higher risk of recurrent HE and was advised to stop this during his last
hospitalization. Did miss one dose of his lactulose and Rifaximin the day prior but is otherwise fairly compliant and would not label patient as noncompliant.Otherwise, no other localizing symptoms or signs to suggest an infectious etiology. Now s/p
LVP with (-) 5.7 L removed and (-) SBP (9 PMNs). In discussion with patient's and his transplant cutting and creasing press operator, Dr. Dan, did discuss possible transfer to [facility] for transplant evaluation if patient were to be admitted. Current MELD 3.0 17 on
labs from 07/24.
Recommendations:
- Trend MELD 3.0 labs q daily - CMP and INR
- Ensure 2 gm Na+ restriction, regular diet while inpatient
- Ascites: Ordered IV albumin 37.5 gm given (-) 5.7 L removed this AM. Okay to continue home diuretics lasix 40 mg and spironolactone 50 mg q daily. Will attempt to uptitrate if renal function allows
- EV/GV: None on prior EGD 06/2024, significant oozing PHG and source of dark black stools (last colon 05/2024)
- PHG: IV PPI 40 mg BiD, defer IV Octreotide as not briskly bleeding. IV Ceftriaxone 1 gm q daily for SBP ppx given suspected oozing and melena
- Restart home Coreg 6.125 mg BiD (12.5 mg q daily) given his PHG to further treat patient's portal-HTN
- Give 1 uPRBC now given Hgb 6s, but avoid overtransfusion as not to worsen portal-hypertensive mediated bleeding. Transfuse for goal Hgb > 7.0
- Would obtain Abd US w/ Dopplers to ensure patent vasculature (ie r/o PVT) as well as shunting as last MRI 04/2024 was limited due to motion
- HE: Titrate lactulose to 3-4 BMs while inpatient and Rifaximin 550 mg BiD
- AVOID all Benzos and Opioids given hx of cirrhosis as likely further contributing to HE- discussed at bedside with patient's
- NSAID avoidance
- I have reached out to Dr. Dan this AM. Still waiting to hear back regarding possibility of transfer as well for transplant eval and potential TIPS (?)
- Rest of care as outlined below and per primary team
GI will continue to follow while inpatient.
Original Note:
Consultation
-
Date/Time Consultation Requested: 08/02/24 @ 19:30
Date/Time Consultation Performed: 08/03/24 @ 08:30
Requesting Provider: Dr. Jacqui Ramos
Performing Provider: MARCIA Godoy; Dr. Wilfredo Kee
Reason for Consultation: HE, anemia
Medical History
Chief Complaint / HPI
Chief Complaint: altered mental status, recurrent abdominal ascites
History of Present Illness:
The patient is a 59-year-old male with a past medical history significant for decompensated liver cirrhosis secondary to hep C versus alcohol, well-known to our group with recurrent hospitalizations for hepatic encephalopathy and acute on chronic GI
bleeding secondary to portal hypertensive gastropathy, history of post polypectomy bleed, HCV status post treatment with Epclusa with SVR, CVA, hypertension, COPD, chronic thrombocytopenia, anxiety, who presented to the emergency room on 08/02 with
altered mental status and increased abdominal swelling, which we are being asked to evaluate for. Upon review of prior records he was recently admitted to the hospital July 19 with similar presentation of generalized weakness and altered
mentation. He was found to have a hemoglobin of 7.3 at that time. He required a blood transfusion and was given IV iron. He has required multiple blood transfusions over the past year for recurrent acute on chronic GI bleeding secondary to portal
hypertensive gastropathy with significant oozing. He was placed on NSBB last admission with carvedilol 6.25mg BID at discharge in hopes to slow/prevent his bleeding. He also had a post polypectomy bleed in April 2024 and required a [employer] clip for
ligation. He has had intermittent ascites and has been undergoing paracentesis as needed, but more recently requiring more frequent paracentesis. He was seen in the emergency room on 07/27 due to lightheadedness and abdominal distention. He did go
under paracentesis at that time and had 6.6 L removed with no signs of SBP on fluid cell counts. He received IV albumin. His stool was tested and weakly heme positive at that time and was advised for admission but he declined. His is at the
bedside to assist with the HPI. She reports that he has had ongoing black stool since his discharge several weeks ago. The patient admits that he was only taking his lactulose twice daily, previously directed to take it 3 times a day. He notes
that with the generic brand he does not have his frequent bowel movements although is not taking it as directed. He continues on Xifaxan twice daily. He also had been compliant with his diuretics. He continues with use of Xanax despite being
advised to reduce this or avoid given his recurrent hepatic encephalopathy. He notes that he is always cold but denies any fevers or chills. He denies any nausea or vomiting. He does admit he had increased abdominal distention with discomfort,
which has since improved since his paracentesis earlier this morning. His reports that he was completely obtunded yesterday, unable to arouse him requiring her to bring him to the hospital. She also notes that his speech has been somewhat
slower, otherwise without any obvious neurological deficits such as unilateral weakness, facial asymmetry, or difficulty ambulating. His reports he did see Dr. Victoria seen yesterday who advised that if he was admitted again to the hospital here
that he should be transferred to [place]. Routine labs on admission showed WBC 7.5, hemoglobin 8.4, platelets 111,000, INR 1.34, sodium 133, potassium 5.3, BUN 32, creatinine 1.0, total bilirubin 2.7, AST 55, ALT 25, alk phos 87, albumin 2.7. Iron
studies within normal limits. Noted with a drop of hemoglobin to 6.9 today. 1 unit packed red blood cells was ordered by Dr. Mariano. He underwent paracentesis with 5700mL removed, and IV albumin has been ordered. He was continued on a diuretics
with Lasix 40 mg daily and Aldactone 50 mg daily along with his lactulose which was increased to 20 g 4 times daily along with his rifaximin 550 mg twice daily. It was advised he avoid Xanax while inpatient given this is likely contributing to his
PSE. We are being asked to evaluate for further management.
Past Medical History
Past Medical History: COPD, CVA, GERD, HTN and Other (Decompensated alcoholic/hepatitis C cirrhosis with ascites and HE, ETOH abuse, chronic thrombocytopenia, cigarette smoker, chronic hyponatremia, hepatitis C status posttreatment with Epclusa and
eradication, chronic pain syndrome, anxiety, insomnia, History of GI bleed secondary to portal hypertensi)
Past Surgical History: Other (colon polyp with post-polypectomy bleed, spinal leak with patch, tooth extraction)
Social History
Tobacco: Smoker (1ppd )
Alcohol: Former (former alcoholic)
Drug: None
Personal:
Living: With Family
Family History
Family History: Other (sister with hx PVT with prior ETOH use)
Allergies / Home Medications
Allergy/AdvReac Type Severity Reaction Status Date / Time
No Known Allergies Allergy Verified 08/02/24 13:19
�Medication �Instructions �Recorded
alprazolam 1 mg tablet 1 mg PO BID@0800,1800 anxiety 03/13/24
furosemide 40 mg tablet (Lasix) 40 mg PO DAILY Fluid 03/13/24
Retention/Swelling
thiamine HCl (vitamin B1) 100 mg 100 mg PO DAILY Supplement 03/13/24
tablet
budesonide 160 mcg-glycopyr 9 2 inh inhalation R BID 04/11/24
mcg-formot 4.8 mcg/actuation HFA Lung/Breathing Issues
inhaler (Breztri Aerosphere)
spironolactone 50 mg tablet 50 mg PO DAILY Liver Issues 04/17/24
magnesium oxide 400 mg PO BID Supplement 06/28/24
rifaximin 550 mg tablet (Xifaxan) 550 mg PO BID hepatic 06/28/24
encephalopathy
tramadol 50 mg tablet 50 mg PO BID 06/28/24
lactulose 20 gram/30 mL oral 20 g (30 mL) PO TID Liver issues 07/01/24
solution #2,880 mL
carvedilol 6.25 mg tablet (Coreg) 6.25 mg PO BID #60 tabs 07/22/24
lidocaine 4 % topical patch 1 patch topical DAILY 30 days #30 07/22/24
ea
miconazole nitrate 2 % topical 1 applic topical BID 7 days #85 07/22/24
powder (Miconazorb AF) grams
nicotine 21 mg/24 hr daily 21 mg transdermal DAILY #30 ea 07/22/24
transdermal patch
pantoprazole 40 mg tablet,delayed 40 mg PO BID Gastrointestinal Issue 08/02/24
release (Protonix)
Review of Systems
-
History Source: Patient and Family
Constitutional: Reports Chills
EENT: Reports No Symptoms
Respiratory: Reports No Symptoms
Cardiac: Reports No Symptoms
Abdomen/GI: Reports Abdominal Pain and Black Stools
: Reports No Symptoms
Musculoskeletal: Reports No Symptoms
Skin: Reports No Symptoms
Neurological: Reports Weakness and Other (Slow speech, confusion)
Endocrine: Reports No Symptoms
Hematologic/Lymphatic: Reports No Symptoms
Vital Signs
Temp Pulse Resp BP Pulse Ox
98.5 F 94 16 112/54 95
08/03/24 07:55 08/03/24 07:55 08/03/24 07:55 08/03/24 07:55 08/03/24 07:55
Physical Exam
Exam
General: No Apparent Distress and Other (chronically ill, pale appearing)
HEENT: Normocephalic, Anicteric and Atraumatic
Respiratory: Clear
Cardiac: S1/S2 and Regular Rhythm
Breast: N/A
GI: Soft, Non Tender, Non Distended, Normal Bowel Sounds and Other (+ascites)
Musculoskeletal: No Edema
Skin: Warm and Dry
Neuro: Awake, Alert and Other (forgetful)
Psych: Calm
Results
WBC 6.2 10^3/uL (4.8-10.8) 08/03/24 06:11
Hgb 6.9 g/dL (13.0-18.0) L* 08/03/24 06:11
Hct 20.4 % (39.0-52.0) L* 08/03/24 06:11
MCV 91.5 fL (80.0-94.0) 08/03/24 06:11
Plt Count 88 10^3/uL (130-400) L D 08/03/24 06:11
Absolute Neuts (auto) 4.5 10^3/uL (1.4-6.5) 08/03/24 06:11
PT 16.7 Sec (11.4-14.6) H 08/02/24 13:58
INR 1.34 08/02/24 13:58
Sodium 135 mmol/L (135-145) 08/03/24 06:11
Potassium 4.9 mmol/L (3.5-5.1) 08/03/24 06:11
Chloride 103 mmol/L (98-107) 08/03/24 06:11
Carbon Dioxide 27 mmol/L (22-30) 08/03/24 06:11
BUN 31 mg/dl (9-20) H 08/03/24 06:11
Creatinine 1.0 mg/dL (0.7-1.3) 08/03/24 06:11
Calcium 8.2 mg/dl (8.4-10.2) L 08/03/24 06:11
Total Bilirubin 3.2 mg/dl (0.2-1.3) H 08/03/24 06:11
AST 44 U/L (17-59) 08/03/24 06:11
ALT 22 U/L (0-50) 08/03/24 06:11
Alkaline Phosphatase 75 U/L (38-126) 08/03/24 06:11
Diagnostic Image Results:
07/27/24 paracentesis: 6.6L removed
07/20/24 paracentesis: 4.5L removed
07/10/24 paracentesis: 4650mL removed
04/11/24 MRI w/w/o contrast: IMPRESSION: Examination limited by motion artifact. CT may be useful as the next surveillance imaging examination, as perhaps there would be less motion artifact. Given this limitation, there is no MR evidence for
hepatocellular carcinoma. Findings of cirrhosis with ascites, splenomegaly, and prominent varices within the abdomen, and extending around the distal esophagus.
Prior GI Procedures:
EGD: 06/29/24 maci Gaviria MD - Normal esophagus.
- Portal hypertensive gastropathy.
- Normal examined duodenum.
- No specimens collected.
05/07/[address] Smith : - Hemorrhoids found on perianal exam.
- The examined portion of the ileum was normal.
- Foreign body ([employer]SC[employer] clip) at the hepatic flexure.
- Polypoid lesion at the hepatic flexure.
- Diverticulosis in the sigmoid colon and in the
descending colon.
- Internal hemorrhoids.
- No specimens collected.
Colonoscopy 04/13/2024-[facility] - One 15 to 18 mm polyp at the hepatic flexure,
removed using lift and cut and a hot snare and removed
with a cold snare. Resected and retrieved. Injected.
Treated with hot biopsy forceps. Ligated.
- One 4 mm polyp in the descending colon, removed with
a hot snare. Resected and retrieved. Clip was placed.
- Diverticulosis in the sigmoid colon, in the
descending colon and at the splenic flexure.
bx DC -TA and HF - HP polyp
EGD 04/13/2024� [facility] - No gross lesions in the entire esophagus. No varices.
- Z-line variable, 42 cm from the incisors.
- Portal hypertensive gastropathy.
- Normal examined duodenum.
- No specimens collected.
EGD:12/27/22 [facility] - Normal esophagus.
- Portal hypertensive gastropathy.
- Normal examined duodenum.
- No specimens collected.
Assessment / Plan
-
The patient is a 59-year-old male with a past medical history significant for decompensated liver cirrhosis secondary to hep C versus alcohol, well-known to our group with recurrent hospitalizations for hepatic encephalopathy and acute on chronic GI
bleeding, portal hypertensive gastropathy, history of post polypectomy bleed, history of HCV status posttreatment with Epclusa with SVR, CVA, hypertension, COPD, chronic thrombocytopenia, anxiety, who presented to the emergency room with altered
mental status and increased abdominal swelling, with recurrent ascites with 5.7 L removed and elevated ammonia with recurrent hepatic encephalopathy. He has had recurrent hospitalizations as noted above for encephalopathy with altered mental
status, acute on chronic GI bleeding secondary to oozing portal hypertension of gastropathy, requiring multiple blood transfusions and IV iron, along with management for his decompensated liver cirrhosis. MELD-3.0 is 17. He is following with "Mayda"Sy from at [facility] outpatient for transplant evaluation. Unfortunately has not been able to be optimized from a medication standpoint with reports of noncompliance with his lactulose at home, only taking it twice daily when directed to take
3 times daily. Started on carvedilol 6.25 mg twice daily at discharge on the last admission to attempt to minimize his GI bleeding from his portal hypertensive gastropathy. Noted with a drop of hemoglobin from 8.4 to 6.9 with reported black stool,
likely oozing from his previously known portal hypertension gastropathy as above. He is awake and alert, but with slow speech pending CT of the brain. Infectious w/u in progress. Started on Rocephin 1g IV daily. His ammonia level has improved. He is
hemodynamically stable pending IV albumin and 1 unit of PRBC.
Problem list:
-altered mental status, HE, ammonia 69, on lactulose 20g TID and Rifaxamin 550mg BID (not compliant at home)
-recurrent Anemia, Hgb 8.4-->6.9 likely 2/2 oozing portal HTN gastropathy
-Decompensated alcoholic/Hep C liver cirrhosis, MELD 3.0= 17
-Chronic thrombocytopenia, stable-> 88,000
-Ascites, requiring near weekly paracentesis, on Lasix 40 mg daily and Aldactone 50 g daily
-Chronic hyponatremia
-Hyperbilirubinemia, chronic
-AFP 30 in March 2024, was in the 10-12 range
-Hx Hep C s/p tx with Epclusa with SVR
-portal hypertension
Other pertinent medical history:
-Chronic pain
-GERD
-Hypertension
-Anxiety
-hx colon polyps
-hx hemorrhoids
Recommendations:
-His recurrent encephalopathy is likely multifactorial given his recurrent anemia/slow GI bleeding v medication non-compliance v decompensated liver disease v use of benzos/opioids v other.
-Agree for SBP prophylaxis with Rocephin 1 g until fluid cell counts are resulted. Albumin 37.5 g ordered post paracentesis with 5.7 L removed
-CT of the head is pending for full neuro work up
-Further infectious workup is pending with chest x-ray. Urinalysis with no signs of infection.
-2 g restricted sodium diet as tolerated
-Trend H&H and transfuse as needed to maintain hemoglobin greater than 7. He will get 1 unit of blood today for hemoglobin of 6.9
-Continue with pantoprazole 40 mg daily
-Continue with carvedilol 6.25 mg p.o. twice daily with hold parameters for systolic BP less than 90 or heart rate less than 55
-Continue diuretics- lasix 40 mg and aldactone 50 mg daily, will attempt to up-titrate as BP and renal function tolerate
-Titrate lactulose for 2-3 BMs per day currently on 20 g 4 times daily and Rifaximin 550 mg BiD. I emphasized importance of compliance with this at home.
-AVOID USE OF XANAX AND OPIOIDS. Reinforced this is likely contributing to his encephalopathy.
-Again needs close OP f/u with Dr. Dan whom is his Transplant Legal Recruiter. May need to consider TIPS given his recurrent anemia/bleeding and now with increasing ascites despite diuretics. His MELD-3.0 score is 17. Per the patient's
Sy recommended transfer to [facility] if he was admitted to the hospital again. Discussed with Dr. Kee, will reach out to [facility] today to discuss further with Dr. Dan and his team.
-He will need to see hematology for intermittent transfusions to stay out of the hospital likely.
-OP hepatology f/u for routine HCC surveillance.
-Further management forthcoming
Data Reviewed
-
Radiology: Report Reviewed by me and Discussed with Physician
Old Records: Reviewed
-
-
Thank you for consultation and allowing me to participate in the patient's care. Please call the corrosion control specialist GI physician during the after hours with any questions or concerns.
[2024-08-03 09:27] LABS: Body Fluid Mononuclear 87.5 %; Body Fluid Polymorphonuclear 12.5 %; Body Fluid WBC 72 /CUMM
[2024-08-03 09:51] LABS: Body Fluid Albumin < 1.0 g/dl; Body Fluid Amylase < 30 U/L; Body Fluid LDH < 90 U/L; Body Fluid Protein < 2.0 g/dl
[2024-08-03] MEDS: FLEXBUMIN 100 IV (10:21)
[2024-08-03] MEDS: COREG 6.25 MG PO (10:27)
--- NOTE | 2024-08-03 10:39 | CM ---
Patient seen at bedside. Patient stated that he lives with his in a 2 story home with a hospital bed, SPC, RW and home O2. Patient PCP is Dr. Wood and he lives with Humberto Lovett in [place]. Patient has had [facility] in the past but not now.
Patient states that he is for a liver transplant and may be transferred tomorrow. CM will call patient to confirm plan. CM will continue to follow for discharge planning needs.
Plan; home with VN pending assessments for medical treatment plan
[2024-08-03 11:12] LABS: Body Fluid Second Tech CMB
[2024-08-03] MEDS: FLEXBUMIN 50 IV (11:58)
--- NOTE | 2024-08-03 14:09 | W.PN.UPDATE ---
Update Note
Progress Note Update
Spoke with patient's Transplant Enrollment Processor, Dr. Ebenezer Dan, earlier this afternoon. Given patient's improving HE, low MELD 3.0 of 17, and without any new decompensation or other concern for acute on chronic liver failure will hold off on
transfer to [facility] at this time. Reviewed patient's clinical course and current treatment. Agrees with current plan along with hopes of titrating NSBB to hopefully alleviate patient's PHG and reducing portal HTN. Additionally, agrees that patient needs
to be OFF all Benzos/opioids given his ESLD. For now, will defer transfer and plan for ongoing transplant evaluation as an outpatient.
Inpatient GI team will continue to follow. Discussed with internal medicine team this afternoon regarding update.
--- NOTE | 2024-08-03 14:17 | W.PN.UPDATE ---
Addendum entered and electronically signed by Sai Mariano MD 08/03/24 18:46:
Patien had another BM with blood ~400 ml
discussesd with GI
Transfer to imu
recheck hbg level
Giving 1 more PRBC
Start small dose levophed if develops shock
Original Note:
Update Note
Progress Note Update
I saw and evaluated the patient. I reviewed the resident�s note and agree with findings and plan as documented in the resident�s note.
Reported some blood in stool in afternoon
Underwent paracentesis of ~ 5.5L in the morning
denies abd pain/nausea/vomiting
Acute metabolic encephalopathy-likely due to hepatic encephalopathy with NH3 of 69 (elevated for him, last number was 47), possibly benzo induced change in MS, infection, primary CHA[employer] F[employer]ER issue all possible other causes
-CT head mark
-Maintain on lactulose and monitor for 3 BM/day
-Taken off of xanax, discussed with spouse as well, Psychiatry consulted for help
Anemia due chronic disease
Acute blood loss anemia
Blood/black stool
-Hbg 6.9 in the morning today, 1 U prbc ordered, f/u Hbg level post transfusion
-GI informed about the findings.
-Ferritin 50.4, SI 154, sat 49%, no indication for iron
Decompensated cirrhosis with abdominal ascites due to history of alcohol and hepatitis C virus
- Continue Lasix and Aldactone, Xifaxan- Start ceftriaxone for SBP prophylaxis-
-maintain on PPI
-s/p 5.7L - no SBP on fluid analysis
-37.5g alb given post paracentesis
-GI discussed with primary video library assistant at [facility], as patient MELD score is low no indication for emergent TIPS
Hypotension
-Asymptomatic.
-Hold nighttime Coreg dose. Morning Aldactone for tomorrow is on hold as well, will reevaluate and resume if appropriate.
Pain-Lidocaine patch for right shoulder pain--Tylenol PRN--Toradol PRN
Hyperkalemia/hyponatremia--likely due to fluid shifts/balance/diuretics--resolved
COPD with acute exacerbation?--Continue Breztri--Chest X- Ray was ordered
DVT Prox: SCD, Lovenox
Code Status: Full Code
Total time spent : 54 mins
[2024-08-03] MEDS: DUPHALAC/CHRONULAC PO (16:59)
--- NOTE | 2024-08-03 17:07 | W.PN.UPDATE ---
Update Note
Progress Note Update
Called with several stools over last few hours large volume red/dark red. Transfusion finishing now. To check repeat hbg then for another unit PRBC's. Check hbg 1. Will order stat CTA. I reviewed with Dr. Mariano for transfer to IMU. for
repeat hbg later tonight and in AM. I left update with on phone message. Pt remain awake and oriented updated on plan
--- NOTE | 2024-08-03 19:05 | CON.MD ---
Consultation - Medical
-
58 yo M w/ PMH of Decompensated cirrhosis with abdominal ascites due to history of alcohol and hepatitis C virus, anemia of chronic dz + acute blood loss anemia & COPD who presented with acute metabolic encephalopathy (NH3 69, elevated from baseline
of 47). Psychiatry was consulted to look for alternatives to xanax for anxiety/insomnia as this may have contributed to encephalopathy as well.
Pt reports struggling with anxiety since first finding out about extent of liver dz. Stopped EtOH use 6 months ago (was drinking 1/5 of 100 proof liquor daily). Describes anxiety as relating to worry about his liver and worry about not getting
better. MELD score is too low for transplant at this time and pt ruminates on this, as well as on possibility of dying and not seeing his grandkids grow up. Denies generalized anxiety outside of this, however finds himself unable to stop worrying
about his liver and this has been quite disruptive. Sleep has been poor as well, unable to sleep due to this anxiety. Reports that his PCP prescribed him xanax for anxiety/insomnia and it has been very helpful for managing sxs. Provided psychoed
about risks of benzo use, in particular for someone in his condition, and attempted to explore alternative options - pt refused to even consider ssri/snri options, said he heard too many negative things and does not want to risk these medications.
Did provide psychoed on safety profile, and the significantly higher risk of benzos, however pt was not open to this at the time. Discussed alternatives for sleep as pt reports he has not been able to sleep since being in the hospital without xanax
- discussed possibility of trazodone as a safer alternative, which pt was a bit more amenable to. He said he wanted to discuss it with his first but was open to my placing an order for it in the meantime.
Denies prior psychiatric hx.
Unspecified anxiety/adjustment d/o
MSE: male, fair eye contact, speech nl rhythm/rate, soft spoken. Mood is worried, affect is congruent. Denies si/hi/avh/delusions. Thought process linear & logical. Oriented. Memory not formally tested. Insight/judgement fair.
Trial of trazodone 12.5mg HS for sleep - would dose low due to liver disease
Can trial lactulose 15mg HS or BID as well if trazodone ineffective as there are studies showing benefit for sleep in liver disease
[2024-08-03] MEDS: LIDOCAINE 4% PATCH 1 PATCH TOPICAL (19:28)
[2024-08-03] MEDS: STERILE WATER FOR INJECTION 10 ML IV (19:36)
[2024-08-03] MEDS: ROCEPHIN 1000 MG IV (19:36)
[2024-08-03] MEDS: PROTONIX IV 40 MG IV (19:38)
[2024-08-03] MEDS: NSS (PRESERVATIVE FREE) 10 ML IV (19:38)
--- NOTE | 2024-08-03 19:41 | PTCARENOTE ---
Pt with several episodes of large volume bloody stools. Hgb this am 6.9. 1 unit PRBC given. BP 92/41 at beginning of blood transfusion, pt asymptomatic, no c/o dizziness when standing/walking to BR. BP 110/48 at end of blood transfusion. notified
of BP. Coreg and aldactone put on hold. GI notified of pt bloody stools, Dr Pily Morrison up to see pt. Orders put in for urgent CTA and IMU tx. Report given to IMU RN, pt transferred to CTA and then to IMU Rm [id number].
--- NOTE | 2024-08-03 20:24 | PTCARENOTE ---
Pt requested to use bathroom to have BM. With assist of 1 and pt using spc pt in bathroom and had one unmeasurable loose bloody bm. Pt asymptomatic. HS care done at bathroom sink and pt assisted back to bed. At this time Dr Childers called this RN
to inquire about CTA results and was updated on results and informed of pt's current bm. Order to hold Lactulose dose for tonight. Pt currently resting comfortably in bed. Granddaughter and her spouse here with pt with many questions. All questions
answered to their satisfaction. Bed alarm on and working. VSS. Next H&H at 2200. Call caballero remains within reach. Will continue to monitor.
[2024-08-03 22:26] LABS: Hemoglobin 5.6 g/dL (13.0-18.0)
[2024-08-04] VITALS (17 sets, daily range): BP systolic 98–145; BP diastolic 53–65; BMI 26.0
--- NOTE | 2024-08-04 00:04 | PTCARENOTE ---
First unit PRBC finished infusing without s/s of reaction. VSS. Pt had another loose bloody bm. Second unit sent for. Pt resting comfortably without issue. Call caballero remains within reach. Will continue to monitor.
--- NOTE | 2024-08-04 01:15 | W.PN.UPDATE ---
Addendum entered and electronically signed by MARCIA Sales 08/04/24 04:31:
dr cano updated. no new orders
Addendum entered and electronically signed by MARCIA Sales 08/04/24 03:48:
after second unit prbc HH up to 7.3. will hold off on giving 3rd unit for now to avoid overtransfusion as not to worsen portal-hypertensive mediated bleeding. Transfuse for goal Hgb > 7.0
Original Note:
Update Note
Progress Note Update
2200 HH after one unit of PRBC resulted at 5.6 (was 6.9 in am). Pt is due for one more unit of PRBC ordered previously. I entered another unit PRBC.
TT sent to GI chronometer adjuster (dr cano) updating her on lastest HH and any follow up recommendations. Awaiting answer.
RN also called Dr Cano via phone, but no answer and no option for VM
PT hemodynamically stable
Will check HH after second unit PRBC prior to initiation of 3rd unit.
--- NOTE | 2024-08-04 02:15 | PTCARENOTE ---
Second unit PRBC finished infusing without s/s reaction. VSS. Will draw H&H in one hour as ordered. Pt resting comfortably. Call caballero within reach. Will continue to monitor.
[2024-08-04 03:46] LABS: Hematocrit 20.7 % (39.0-52.0); Hemoglobin 7.3 g/dL (13.0-18.0); Mean Corp Hgb Conc. 35.3 g/dL (33.0-37.0); Mean Corpuscular Hgb 29.9 pg (27.0-31.0); Mean Corpuscular Volume 84.8 fL (80.0-94.0); Mean Platelet Volume 9.6 fL (7.4-10.4); Platelet Count 74 10^3/uL (130-400); Red Blood Cell Count 2.44 10^6/uL (4.70-6.10); Red Cell Dist. Width 16.2 % (11.5-14.5); White Blood Cell Count 5.3 10^3/uL (4.8-10.8)
[2024-08-04 03:47] LABS: INR 1.62; PT 19.1 Sec (11.4-14.6)
--- NOTE | 2024-08-04 04:05 | PTCARENOTE ---
Repeat H&H 7.3.7. Yoanna KENNEDY TT'd and made aware. Will hold off on third unit of PRBC at this time. Pt resting comfortably without complaint. VSS. Call caballero remains within reach. Will continue to monitor.
[2024-08-04 04:22] LABS: ALT (SGPT) 18 U/L (0-50); AST (SGOT) 38 U/L (17-59); Albumin 2.3 g/dl (3.5-5.0); Alkaline Phosphatase 54 U/L (38-126); Blood Urea Nitrogen 39 mg/dl (9-20); Calcium 7.9 mg/dl (8.4-10.2); Carbon Dioxide 24 mmol/L (22-30); Chloride 106 mmol/L (98-107); Estimated Creatinine Clearance 74 ml/min; Glucose 98 mg/dl (70-99); Potassium 4.5 mmol/L (3.5-5.1); Sodium 135 mmol/L (135-145); eGFR > 60.00
[2024-08-04 04:53] LABS: Cortisol, Random 6.6 ug/dl
[2024-08-04] MEDS: DUPHALAC/CHRONULAC PO ×4 (07:42→21:12)
[2024-08-04] MEDS: NICODERM TRANSDERMAL 21 MG TRANSDERM (07:56)
[2024-08-04] MEDS: SYMBICORT 160/4.5 MCG INHALER 2 PUFF INH ×2 (07:56→19:15)
[2024-08-04] MEDS: SPIRIVA RESPIMAT 2.5 MCG 2 PUFF INH (07:56)
[2024-08-04] MEDS: VITAMIN B1 100 MG PO (07:57)
[2024-08-04] MEDS: PROTONIX IV 40 MG IV ×2 (07:58→19:42)
[2024-08-04] MEDS: MAG-TAB SR 84 MG PO ×2 (07:58→19:41)
[2024-08-04] MEDS: NSS (PRESERVATIVE FREE) 10 ML IV ×2 (07:58→19:42)
[2024-08-04] MEDS: ULTRAM 50 MG PO ×2 (07:58→19:41)
[2024-08-04] MEDS: XIFAXAN 550 MG PO ×2 (07:59→19:41)
--- NOTE | 2024-08-04 08:30 | PTCARENOTE ---
Patient received from welder 2nd shift. Patient resting comfortably in bed. AAO, VSS. No events noted overnight. No complaints of pain at this time. Patient currently 'NPO' for abdominal US around 9-930 this AM. 1 dark bloody stool this AM.
Lidocaine patch removed, new Nicotine patch placed on right upper arm. Call caballero in reach.
--- NOTE | 2024-08-04 08:51 | W.PN.GI.CBS2 ---
Today's Communication / Plan
-
continue clears
monitor HB and transfuse PRN
Continue current meds
Assessment / Plan
-
The patient is a 59-year-old male with a past medical history significant for decompensated liver cirrhosis secondary to hep C versus alcohol, well-known to our group with recurrent hospitalizations for hepatic encephalopathy and acute on chronic GI
bleeding, portal hypertensive gastropathy, history of post polypectomy bleed, history of HCV status posttreatment with Epclusa with SVR, CVA, hypertension, COPD, chronic thrombocytopenia, anxiety, who presented to the emergency room with altered
mental status and increased abdominal swelling, with recurrent ascites with 5.7 L removed and elevated ammonia with recurrent hepatic encephalopathy. He has had recurrent hospitalizations as noted above for encephalopathy with altered mental
status, acute on chronic GI bleeding secondary to oozing portal hypertension of gastropathy, requiring multiple blood transfusions and IV iron, along with management for his decompensated liver cirrhosis. MELD-3.0 is 17. He is following with "Mayda"Sy from at [facility] for transplant evaluation. Unfortunately has not been able to be optimized from a medication standpoint with reports of noncompliance with his lactulose at home, only taking it twice daily when directed to take
3 times daily. Started on carvedilol 6.25 mg twice daily at discharge on the last admission to attempt to minimize his GI bleeding from his portal hypertensive gastropathy. Noted with a drop of hemoglobin from 8.4 to 6.9 with reported black stool,
likely oozing from his previously known portal hypertension gastropathy as above. He is awake and alert, but with slow speech pending CT of the brain. Infectious w/u in progress. Started on Rocephin 1g IV daily. His ammonia level has improved. He is
hemodynamically stable pending IV albumin and 1 unit of PRBC.
Problem list:
-altered mental status, HE, ammonia 69, on lactulose 20g TID and Rifaxamin 550mg BID (not compliant at home)
-recurrent Anemia, Hgb 8.4-->6.9 likely 2/2 oozing portal HTN gastropathy
-Decompensated alcoholic/Hep C liver cirrhosis, MELD 3.0= 17
-Chronic thrombocytopenia, stable-> 88,000
-Ascites, requiring near weekly paracentesis, on Lasix 40 mg daily and Aldactone 50 g daily
-Chronic hyponatremia
-Hyperbilirubinemia, chronic
-AFP 30 in March 2024, was in the 10-12 range
-Hx Hep C s/p tx with Epclusa with SVR
-portal hypertension
Other pertinent medical history:
-Chronic pain
-GERD
-Hypertension
-Anxiety
-hx colon polyps
-hx hemorrhoids
Recommendations:
-His recurrent encephalopathy is likely multifactorial given his recurrent anemia/slow GI bleeding v medication non-compliance v decompensated liver disease v use of benzos/opioids v other.
-Agree for SBP prophylaxis with Rocephin 1 g until fluid cell counts are resulted. Albumin 37.5 g ordered post paracentesis with 5.7 L removed
-CT of the head - IMPRESSION: No acute intracranial abnormality identified. Unchanged chronic right frontal infarct as seen previously.
-Further infectious workup is pending with chest x-ray. Urinalysis with no signs of infection.
-2 g restricted sodium diet as tolerated
-Continue with pantoprazole 40 mg daily
-Continue with carvedilol 6.25 mg p.o. twice daily with hold parameters for systolic BP less than 90 or heart rate less than 55, given his history of recurrent refractory ascites may need to be off beta-blockers will discuss with Dr. Dan
-Continue diuretics- lasix 40 mg, Aldactone has been on hold for hyperkalemia may need to be restarted once the potassium is normalized
-Titrate lactulose for 2-3 BMs per day currently on 20 g 4 times daily and Rifaximin 550 mg BiD. I emphasized importance of compliance with this at home.
-AVOID USE OF XANAX AND OPIOIDS. Reinforced this is likely contributing to his encephalopathy.
-Again needs close OP f/u with Dr. Dan whom is his Transplant Family Life Educator. May need to consider TIPS given his recurrent anemia/bleeding and now with increasing ascites despite diuretics but may increase his risk of recurrent hepatic
encephalopathy. His MELD-3.0 score is 17. See note from Dr. Kee he discussed with Dr. Dan and hold on transfer to [facility] for now.
-He will need to see hematology for intermittent transfusions to stay out of the hospital likely.
-OP hepatology f/u for routine HCC surveillance.
-Recurrent lower GI bleed last night unclear if it is related to possible diverticulosis in the setting of thrombocytopenia and coagulopathy related to underlying cirrhosis, there was no rectal varices noted on prior colonoscopy CTA was negative,
hemoglobin responded to 3 units of packed red blood cells went up from 5.6-7.3 continue to monitor closely. He did have a repeat colonoscopy in May for recurrent rectal bleeding did not reveal active bleeding but did show diverticulosis and
hemorrhoids and intact OVESCO clip at the hepatic flexure placed on prior colonoscopy in April for post polypectomy bleed
Subjective
Subjective
Date of Service: August 04, 2024
Noted events from yesterday he had multiple episodes of rectal bleeding and had a stat CTA last night which did not show any evidence of active bleeding his hemoglobin dropped to 5.6 he received 3 units of packed red blood cells and hemoglobin
responded and is 7.3 today. He says that he only had a small amount of bleeding today morning denies any abdominal pain no hematemesis.
Objective
Data Reviewed
Laboratory Data:
Laboratory Results
08/04/24 03:21
08/04/24 03:21
Laboratory Results
PT 19.1 Sec (11.4-14.6) H 08/04/24 03:21
INR 1.62 08/04/24 03:21
Magnesium 2.2 mg/dl (1.6-2.3) 08/03/24 06:11
Total Bilirubin 4.0 mg/dl (0.2-1.3) H 08/04/24 03:21
AST 38 U/L (17-59) 08/04/24 03:21
ALT 18 U/L (0-50) 08/04/24 03:21
Alkaline Phosphatase 54 U/L (38-126) 08/04/24 03:21
Vital Signs and I&O:
Vital Signs
Temp Pulse Resp BP Pulse Ox
98.6 F 88 16 104/55 91
08/04/24 02:31 08/04/24 08:04 08/04/24 08:04 08/04/24 06:00 08/04/24 08:04
I&O
08/03/24 08/04/24 08/05/24
06:59 06:59 06:59
Intake Total 150 / 150 2350 / 2350
Output Total 75 / 75
Balance 75 / 75 2350 / 2350
08/03/24 CTA
IMPRESSION: No evidence of GI bleed.
Findings consistent with cirrhosis .
Moderate abdominopelvic ascites.
Mild splenomegaly.
Nonobstructing bilateral urinary stones as described above.
Too small to characterize hypodense right renal lesions likely benign cysts.
Physical Exam
Physical Exam
Cardiology: Normal Sinus Rhythm
Pulmonary: Clear
GI: Soft, Distended (mildly distended), Non Tender and Normal Bowel Sounds
[2024-08-04] MEDS: LASIX 40 MG PO (09:58)
[2024-08-04] MEDS: DESENEX/MITRAZOL/ZEASORB 1 APPLIC TOPICAL ×2 (09:59→19:41)
--- NOTE | 2024-08-04 10:34 | W.PN.HOSP.TC ---
Today's Communication/Plan
-
continue monitoring for repeat GI bleed
f/u Hbg level
hold BP medication
Assessment / Plan
Assessment / Plan
Acute metabolic encephalopathy - Improved
-likely due to hepatic encephalopathy with NH3 of 69 (elevated for him, last number was 47) and possibly benzo induced change in MS
-CT head normal
-Taken off of xanax, discussed with spouse as well, Psychiatry consulted for help with alternatives
Anemia due chronic disease
Acute blood loss anemia
Hematochezia
-Ferritin 50.4, SI 154, sat 49%, no indication for iron
-C-scope from previous visit reviewed
-Patient required 3 u PRBC in last 24 hrs.
-May require FFP as well if continues to have bleeding.
-Hbg 7.3 today in morning, f/u ordered
-GI following and input noted, no indication for emergent repeat C-scope, suspected diverticular bleed exacerbated with coagulopathy/thrombocytopenia.
Decompensated cirrhosis with abdominal ascites due to history of alcohol and hepatitis C virus
- Continue Lasix and Aldactone, Xifaxan- Start ceftriaxone for SBP prophylaxis-
-maintain on PPI
-s/p 5.7L - no SBP on fluid analysis
-37.5g alb given post paracentesis
-GI discussed with primary knot tying operator at [facility], as patient MELD score is low no indication for emergent TIPS
Hypotension
-Asymptomatic.
-Hold coreg/aldactone for now, will resume once bleeding stops
Shoulder pain
-symptomatic care with lidocaine patch
Hyperkalemia/hyponatremia - resolved
--likely due to fluid shifts/balance/diuretics
COPD
-exacerbation ruled out
-maintain on neb therapy
DVT Prox: SCD,
Code Status: Full Code
Total time spent : 55 mins
Anticipated Discharge: > 48 hours
Subjective/Interval History
-
Date of Service: August 04, 2024
patient have dark red blood containing BM overnight
no abd pain/nausea/vomiting
BP soft, asymptomatic
Objective Data
-
Labs:
Laboratory Results
08/04/24
03:21
WBC 5.3
Hgb 7.3 L D
Hct 20.7 L*
Plt Count 74 L
PT 19.1 H
INR 1.62
Sodium 135
Potassium 4.5
Chloride 106
Carbon Dioxide 24
BUN 39 H
Creatinine 1.1
Glucose 98
Calcium 7.9 L
Total Bilirubin 4.0 H
AST 38
ALT 18
Alkaline Phosphatase 54
Vital Signs:
Vital Signs
Temp Pulse Resp BP Pulse Ox
98.7 F 84 16 98/65 91
08/04/24 07:52 08/04/24 09:58 08/04/24 08:04 08/04/24 09:58 08/04/24 08:04
I&O
08/03/24 08/04/24 08/05/24
06:59 06:59 06:59
Intake Total 150 / 150 2350 / 2350
Output Total 75 / 75
Balance 75 / 75 2350 / 2350
Review of Systems
-
Respiratory: Reports No Symptoms
Cardiac: Reports No Symptoms
Abdomen/GI: Reports No Symptoms
Physical Exam
-
General: Appears Chronically Ill
HEENT: Negative Oxygen
Respiratory: Clear to Auscultation
Cardiac: Regular Rhythm and S1/S2
GI: Soft, Nontender and Distended
Musculoskeletal: Edema, Right Lower Extrem and Edema, Left Lower Extrem
Skin: Warm and Dry
Neuro: Awake, Oriented, AO x 3 and No Motor Deficits
[2024-08-04] MEDS: DUONEB 3 ML INH ×2 (12:50→19:16)
--- NOTE | 2024-08-04 16:02 | W.PN.UPDATE ---
Update Note
Progress Note Update
Chart reviewed and pt. seen; (who is a nurse) was visiting and knows a lot about his medical condition). He was transfused with 2 units and feels a bit better. He is being considered for liver transplant at [place], but not yet meeting criteria.
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 He becomes intermittently delirious which believes is due to anemia
(although I suspect more from hepatic encephalopathy). He had been taking Xanax 1 mg. BID PRN at home which may have contributed to confusion and agitation.
CT of the brain shows only old right frontal stroke.
Psychiatry was consulted to help with managing anxiety. Also has severe insomnia. Trazodone in very low dose (12.5 mg.) was ordered yesterday, but not yet taken. is concerned about it causing hypotension which should not be an issue at such
a low dose. Agree that I would avoid benzo's. SSRI's affect platelet aggregation and therefore would not be a good choice in low plt., anemia and active bleed. Remeron could be considered. I am not certain if gabapentin might have a role. He
takes Tramadol which does have some serotonergic properties.
He is ill-appearing man. Alert and oriented. Speech somewhat slow; weak. Mood is depressed and has expressed passive suicidal ideation at home. has lost her job due to absences for his health. Only one child is nearby and she is often
busy. Has 2 grandchildren and [address] No signs of psychosis.
He is agreeable to trying trazodone tonight and I will see him tomorrow.
[2024-08-04 17:11] LABS: Hematocrit 21.1 % (39.0-52.0); Hemoglobin 7.4 g/dL (13.0-18.0); Mean Corp Hgb Conc. 35.1 g/dL (33.0-37.0); Mean Corpuscular Hgb 30.2 pg (27.0-31.0); Mean Corpuscular Volume 86.1 fL (80.0-94.0); Mean Platelet Volume 9.1 fL (7.4-10.4); Platelet Count 69 10^3/uL (130-400); Red Blood Cell Count 2.45 10^6/uL (4.70-6.10); Red Cell Dist. Width 17.1 % (11.5-14.5); White Blood Cell Count 5.2 10^3/uL (4.8-10.8)
[2024-08-04] MEDS: LIDOCAINE 4% PATCH 1 PATCH TOPICAL (19:40)
[2024-08-04] MEDS: STERILE WATER FOR INJECTION 10 ML IV (19:42)
[2024-08-04] MEDS: FLUSH (NSS) 3 FLUSH IV (19:42)
[2024-08-04] MEDS: ROCEPHIN 1000 MG IV (19:42)
[2024-08-04] MEDS: DESYREL 12.5 MG PO (21:12)
[2024-08-05] VITALS (13 sets, daily range): BP systolic 101–129; BP diastolic 51–70; BMI 25.7
--- NOTE | 2024-08-05 01:41 | PTCARENOTE ---
Pt sleeping well overnight after receiving scheduled Trazadone. VSS. Afebrile. SR on CM. No bloody bm's throughout shift. Pt refused HS Lactulose. Rest of assessment as documented. Call caballero remains within reach. Will continue to monitor.
[2024-08-05 04:56] LABS: Hematocrit 22.6 % (39.0-52.0); Hemoglobin 7.8 g/dL (13.0-18.0); Mean Corp Hgb Conc. 34.5 g/dL (33.0-37.0); Mean Corpuscular Volume 86.9 fL (80.0-94.0); Mean Platelet Volume 9.7 fL (7.4-10.4); Platelet Count 72 10^3/uL (130-400); Red Cell Dist. Width 17.2 % (11.5-14.5); White Blood Cell Count 5.5 10^3/uL (4.8-10.8)
[2024-08-05 05:00] LABS: INR 1.46; PT 17.5 Sec (11.4-14.6)
[2024-08-05 05:06] LABS: ALT (SGPT) 20 U/L (0-50); AST (SGOT) 48 U/L (17-59); Albumin 2.7 g/dl (3.5-5.0); Alkaline Phosphatase 51 U/L (38-126); Blood Urea Nitrogen 31 mg/dl (9-20); Carbon Dioxide 23 mmol/L (22-30); Chloride 104 mmol/L (98-107); Estimated Creatinine Clearance 74 ml/min; Glucose 94 mg/dl (70-99); Potassium 4.4 mmol/L (3.5-5.1); Sodium 135 mmol/L (135-145); Total Bilirubin 3.2 mg/dl (0.2-1.3); Total Protein 4.5 g/dl (6.3-8.2); eGFR > 60.00
[2024-08-05] MEDS: SPIRIVA RESPIMAT 2.5 MCG 2 PUFF INH (07:15)
[2024-08-05] MEDS: SYMBICORT 160/4.5 MCG INHALER 2 PUFF INH ×2 (07:16→19:26)
[2024-08-05] MEDS: DESENEX/MITRAZOL/ZEASORB 1 APPLIC TOPICAL ×2 (08:24→20:15)
[2024-08-05] MEDS: VITAMIN B1 100 MG PO (08:25)
[2024-08-05] MEDS: LASIX 40 MG PO (08:25)
[2024-08-05] MEDS: DUPHALAC/CHRONULAC PO ×2 (08:25→20:17)
[2024-08-05] MEDS: ULTRAM 50 MG PO ×2 (08:25→20:18)
[2024-08-05] MEDS: MAG-TAB SR 84 MG PO ×2 (08:26→20:18)
[2024-08-05] MEDS: NICODERM TRANSDERMAL 21 MG TRANSDERM (08:26)
[2024-08-05] MEDS: NSS (PRESERVATIVE FREE) 10 ML IV ×2 (08:26→20:17)
[2024-08-05] MEDS: XIFAXAN 550 MG PO ×2 (08:26→20:18)
[2024-08-05] MEDS: PROTONIX IV 40 MG IV ×2 (08:27→20:17)
--- NOTE | 2024-08-05 11:27 | W.PN.GI.CBS2 ---
Today's Communication / Plan
-
continue current meds
resume 2 gm diet
resume lactulose
Assessment / Plan
-
The patient is a 59-year-old male with a past medical history significant for decompensated liver cirrhosis secondary to hep C versus alcohol, well-known to our group with recurrent hospitalizations for hepatic encephalopathy and acute on chronic GI
bleeding, portal hypertensive gastropathy, history of post polypectomy bleed, history of HCV status posttreatment with Epclusa with SVR, CVA, hypertension, COPD, chronic thrombocytopenia, anxiety, who presented to the emergency room with altered
mental status and increased abdominal swelling, with recurrent ascites with 5.7 L removed and elevated ammonia with recurrent hepatic encephalopathy. He has had recurrent hospitalizations as noted above for encephalopathy with altered mental
status, acute on chronic GI bleeding secondary to oozing portal hypertension of gastropathy, requiring multiple blood transfusions and IV iron, along with management for his decompensated liver cirrhosis. MELD-3.0 is 17. He is following with "Mayda"Sy from at [facility] for transplant evaluation. Unfortunately has not been able to be optimized from a medication standpoint with reports of noncompliance with his lactulose at home, only taking it twice daily when directed to take
3 times daily. Started on carvedilol 6.25 mg twice daily at discharge on the last admission to attempt to minimize his GI bleeding from his portal hypertensive gastropathy. Noted with a drop of hemoglobin from 8.4 to 6.9 with reported black stool,
likely oozing from his previously known portal hypertension gastropathy as above. He is awake and alert, but with slow speech pending CT of the brain. Infectious w/u in progress. Started on Rocephin 1g IV daily. His ammonia level has improved. He is
hemodynamically stable pending IV albumin and 1 unit of PRBC.
Problem list:
-altered mental status, HE, ammonia 69, on lactulose 20g TID and Rifaxamin 550mg BID (not compliant at home)
-recurrent Anemia, Hgb 8.4-->6.9 likely 2/2 oozing portal HTN gastropathy
-Decompensated alcoholic/Hep C liver cirrhosis, MELD 3.0= 17
-Chronic thrombocytopenia, stable-> 88,000
-Ascites, requiring near weekly paracentesis, on Lasix 40 mg daily and Aldactone 50 g daily
-Chronic hyponatremia
-Hyperbilirubinemia, chronic
-AFP 30 in March 2024, was in the 10-12 range
-Hx Hep C s/p tx with Epclusa with SVR
-portal hypertension
Other pertinent medical history:
-Chronic pain
-GERD
-Hypertension
-Anxiety
-hx colon polyps
-hx hemorrhoids
Recommendations:
-His recurrent encephalopathy is likely multifactorial given his recurrent anemia/slow GI bleeding v medication non-compliance v decompensated liver disease v use of benzos/opioids v other.
-Agree for SBP prophylaxis with Rocephin 1 g until fluid cell counts are resulted. Albumin 37.5 g ordered post paracentesis with 5.7 L removed
-CT of the head - IMPRESSION: No acute intracranial abnormality identified. Unchanged chronic right frontal infarct as seen previously.
-Further infectious workup is pending with chest x-ray. Urinalysis with no signs of infection.
-2 g restricted sodium diet as tolerated
-Continue with pantoprazole 40 mg daily
-Continue with carvedilol 6.25 mg p.o. twice daily with hold parameters for systolic BP less than 90 or heart rate less than 55, given his history of recurrent refractory ascites may need to be off beta-blockers will discuss with Dr. Dan
-Continue diuretics- lasix 40 mg, Aldactone has been on hold for hyperkalemia may need to be restarted once the potassium is normalized
-Titrate lactulose for 2-3 BMs per day currently on 20 g 4 times daily and Rifaximin 550 mg BiD. I emphasized importance of compliance with this at home.
-AVOID USE OF XANAX AND OPIOIDS. Reinforced this is likely contributing to his encephalopathy.
-Again needs close OP f/u with Dr. Dan whom is his Transplant Back Office Medical Assistant. May need to consider TIPS given his recurrent anemia/bleeding and now with increasing ascites despite diuretics but may increase his risk of recurrent hepatic
encephalopathy. His MELD-3.0 score is 17. See note from Dr. Kee he discussed with Dr. Dan and hold on transfer to [place] for now.
-He will need to see hematology for intermittent transfusions to stay out of the hospital likely.
-OP hepatology f/u for routine HCC surveillance.
-Recurrent lower GI bleed unclear if it is related to possible diverticulosis in the setting of thrombocytopenia and coagulopathy related to underlying cirrhosis, there was no rectal varices noted on prior colonoscopy CTA was negative, hemoglobin
responded to 3 units of packed red blood cells went up from 5.6-7.8 continue to monitor closely. no further bleeding since yesterday. He did have a repeat colonoscopy in May for recurrent rectal bleeding did not reveal active bleeding but did show
diverticulosis and hemorrhoids and intact OVESCO clip at the hepatic flexure placed on prior colonoscopy in April for post polypectomy bleed
Subjective
Subjective
Date of Service: August 05, 2024
No further bleeding, denies abdominal pain, more awake and oriented, HB stable post transfusions
Objective
Data Reviewed
Laboratory Data:
Laboratory Results
08/05/24 04:32
08/05/24 04:32
Laboratory Results
PT 17.5 Sec (11.4-14.6) H 08/05/24 04:32
INR 1.46 08/05/24 04:32
Magnesium 2.2 mg/dl (1.6-2.3) 08/03/24 06:11
Total Bilirubin 3.2 mg/dl (0.2-1.3) H 08/05/24 04:32
AST 48 U/L (17-59) 08/05/24 04:32
ALT 20 U/L (0-50) 08/05/24 04:32
Alkaline Phosphatase 51 U/L (38-126) 08/05/24 04:32
Vital Signs and I&O:
Vital Signs
Temp Pulse Resp BP Pulse Ox
98.8 F 88 14 119/70 94
08/05/24 07:16 08/05/24 07:22 08/05/24 07:22 08/05/24 06:00 08/05/24 07:22
I&O
08/04/24 08/05/24 08/06/24
06:59 06:59 06:59
Intake Total 2350 / 2350 6120 / 6120
Balance 2350 / 2350 6120 / 6120
08/04/24 US with Dopplers
IMPRESSION: Cirrhosis with splenomegaly and moderate ascites
Duplex ultrasound with color and spectral waveform analysis of the abdomen demonstrates high resistance waveform in the hepatic arteries such as may be seen with cirrhosis
The hepatic veins are patent with normal pulsatile flow
There is normal hepatopedal flow in the portal veins which are normal in caliber
Physical Exam
Physical Exam
Cardiology: Normal Sinus Rhythm
Pulmonary: Clear
GI: Soft, Distended (mildy distended), Non Tender and Normal Bowel Sounds
[2024-08-05] MEDS: DUPHALAC/CHRONULAC 20 GRAMS PO ×2 (13:16→18:04)
--- NOTE | 2024-08-05 13:55 | W.PN.UPDATE ---
Update Note
Progress Note Update
Seen for follow-up. in room. His main psychiatric complaint is insomnia (only slept an hour by his report) and anxiety. He is very troubled by cramping of his muscles (seemingly from hypocalcemia). He is alert and Ox3, speaks slowly, little
affect. Pleasant.
Dr. Mariano has increased trazodone for tonight to 25 mg. He tolderated 12.5 mg. well last night. Not lightheaded today when walking to bathroom.
Psychiatry will follow.
--- NOTE | 2024-08-05 15:01 | W.PN.HOSP.TC ---
Today's Communication/Plan
-
monitor for any re-bleed
monitor Hbg
hold Aldactone/rifaximin
PT/OT eval
Assessment / Plan
Assessment / Plan
Acute metabolic encephalopathy - Improved
-likely due to hepatic encephalopathy with NH3 of 69 (elevated for him, last number was 47) and possibly benzo induced change in MS
-CT head normal
-Taken off of xanax, discussed with spouse as well, Psychiatry consulted and starting on HS trazodone.
Anemia due chronic disease
Acute blood loss anemia
Hematochezia
-Ferritin 50.4, SI 154, sat 49%, no indication for iron
-C-scope from previous visit reviewed
-Patient required 3 u PRBC this admit
-No further GI bleed overnight, hbg 7.8 at this point, monitor,
-GI following and input noted, no indication for emergent repeat C-scope, suspected diverticular bleed exacerbated with coagulopathy/thrombocytopenia.
Decompensated cirrhosis with abdominal ascites due to history of alcohol and hepatitis C virus
-Continue Lasix/Rifaximin
-maintain on ceftriaxone for SBP prophylaxis
-maintain on PPI
-s/p 5.7L - no SBP on fluid analysis
-37.5g alb given post paracentesis
-GI discussed with primary screen examiner at [facility], as patient MELD score is low no indication for emergent TIPS
Hypotension
-Asymptomatic.
-Hold coreg/aldactone for now, will resume in 24hrs
Shoulder pain
-symptomatic care with lidocaine patch
Hyperkalemia/hyponatremia - resolved
--likely due to fluid shifts/balance/diuretics
COPD
-exacerbation ruled out
-maintain on neb therapy
DVT Prox: SCD,
Code Status: Full Code
Anticipated Discharge: 24 - 48 hours
Subjective/Interval History
-
Date of Service: August 05, 2024
no reported BRBPR overnight
no nausea/vomiting
Objective Data
-
Labs:
Laboratory Results
08/05/24
04:32
WBC 5.5
Hgb 7.8 L
Hct 22.6 L
Plt Count 72 L
PT 17.5 H
INR 1.46
Sodium 135
Potassium 4.4
Chloride 104
Carbon Dioxide 23
BUN 31 H
Creatinine 1.1
Glucose 94
Calcium 8.0 L
Total Bilirubin 3.2 H
AST 48
ALT 20
Alkaline Phosphatase 51
Vital Signs:
Vital Signs
Temp Pulse Resp BP Pulse Ox
98.7 F 88 14 119/70 94
08/05/24 11:13 08/05/24 07:22 08/05/24 07:22 08/05/24 06:00 08/05/24 07:22
I&O
08/04/24 08/05/24 08/06/24
06:59 06:59 06:59
Intake Total 2350 / 2350 6120 / 6120
Balance 2350 / 2350 6120 / 6120
Review of Systems
-
Respiratory: Reports No Symptoms
Cardiac: Reports No Symptoms
Abdomen/GI: Reports No Symptoms
[2024-08-05] MEDS: DUONEB 3 ML INH (19:28)
[2024-08-05] MEDS: LIDOCAINE 4% PATCH TOPICAL ×2 (20:15→20:36)
[2024-08-05] MEDS: ROCEPHIN 1000 MG IV (20:17)
[2024-08-05] MEDS: STERILE WATER FOR INJECTION 10 ML IV (20:17)
[2024-08-05] MEDS: DESYREL 25 MG PO (20:18)
[2024-08-06] VITALS (10 sets, daily range): BP systolic 110–127; BP diastolic 56–72; BMI 26.2
--- NOTE | 2024-08-06 06:02 | W.PN.HOSP.TC ---
Today's Communication/Plan
-
IRAD was consulted for paracentesis assessment today. The patient is planning to be discharged after he was assessed by IRAD.
Assessment / Plan
Assessment / Plan
Impression: The patient is a 59 year old male who presented to ER complaining from confusion, lethargy and general weakness. The patient had been recently admitted on 07/19 until 07/22 for recurrent GI bleed, acute on chronic anemia. During this
hospitalization he received blood transfusions and IV iron. He had been also treated for possible SBP with antibiotics and had paracentesis to drain. He was started on Coreg to hopefully help with portal venous hypertension and resultant
gastropathy/GI bleeding. On 08/03, he was refereed to ER by his [employer] program development manager. His reported intermittent black and bloody bowel movements at present to ER. The patient`s head CT showed only old right frontal stroke. After the admission
the patient had a paracentesis and had 5.7 L fluid removed.The patient was was started on Rocephin for SBP prophylaxis. He had he had a few episodes of hematemesis and was consulted to GI. He was given 3 Unit of RBC. Since yesterday, the patient
denies having bloody stools and he had a normal loose stool this morning. The patient was consulted to [facility] for a possible paracentesis this morning.
#Acute metabolic encephalopathy
- Improved
-Likely due to hepatic encephalopathy with NH3 of 69 (elevated for him, last number was 47) and possibly benzo induced change in MS
-CT head normal
-Psychiatry consulted and started on trazodone
-Taken off of Xanax, discussed with spouse as well,
#Acute blood loss anemia
-Hematochezia: Per GI: related to possible diverticulosis in the setting of thrombocytopenia and coagulopathy related to underlying cirrhosis
-Ferritin 50.4, SI 154, sat 49%, no indication for iron
-C-scope from previous visit reviewed
-Patient required 3 u RBC this admit
-No further GI bleed overnight, hgb 8.2 on 08/06 (increased from 7.3 on 08/04)
-GI following and input noted, no indication for emergent repeat C-scope, suspected diverticular bleed exacerbated with coagulopathy/thrombocytopenia.
-GI rec on 08/05:Need to see hematology for intermittent transfusions to stay out of the hospital likely
#Decompensated cirrhosis with abdominal ascites due to history of alcohol and hepatitis C virus
-Continue Lasix/Rifaximin
- Peritoneal culture: No growth and clean yellow pattern. Ceftriaxone was stopped for SBP prophylaxis
-Maintain on PPI
-37.5g alb given post paracentesis
-GI discussed with primary complex care nurse at [facility], as patient MELD score is low no indication for emergent TIPS
-GI rec on 08/05:Titrate lactulose for 2-3 BMs per day currently on 20 g 4 times daily and Rifaximin 550 mg BiD.
-IRAD was consulted for paracentesis assessment on 08/06
#Hypotension
-Asymptomatic. BP is more nadia 119/59
-Start Aldactone 25 mg for now
-Hold Coreg due hypotansion
- Given his history of recurrent refractory ascites may need to be off beta-blockers will discuss with Dr. Dan by GI
#Shoulder pain
-symptomatic care with lidocaine patch
#Hyperkalemia/hyponatremia
- likely due to fluid shifts/balance/diuretics
#Hypokalemia
-K level is 3.3 on 08/06 :Aldactone 25 mg was started
#COPD
-exacerbation ruled out
-maintain on neb therapy
#DVT Prox: SCD,
Code Status: Full Code
Anticipated Discharge: 24 - 48 hours
Subjective/Interval History
-
Date of Service: August 06, 2024
The patient was seen in his bed reporting feeling better. This morning he had a bowel movement which was some loose but was not bloody.
Objective Data
-
Labs:
Laboratory Results
08/06/24
06:00
WBC Pending
Hgb Pending
Hct Pending
Plt Count Pending
PT Pending
INR Pending
Sodium Pending
Potassium Pending
Chloride Pending
Carbon Dioxide Pending
BUN Pending
Creatinine Pending
Glucose Pending
Calcium Pending
Total Bilirubin Pending
AST Pending
ALT Pending
Alkaline Phosphatase Pending
Vital Signs:
Vital Signs
Temp Pulse Resp BP Pulse Ox
99.1 F 95 14 119/59 93
08/06/24 03:30 08/06/24 04:00 08/06/24 04:00 08/06/24 04:00 08/06/24 04:00
I&O
08/04/24 08/05/24 08/06/24
06:59 06:59 06:59
Intake Total 2350 / 2350 6120 / 6120 1080 / 1080
Balance 2350 / 2350 6120 / 6120 1080 / 1080
Review of Systems
-
EENT: Reports No Symptoms Reported
Respiratory: Reports No Symptoms
Cardiac: Reports No Symptoms
Abdomen/GI: Reports Other (See HPI)
Genitourinary: Reports No Symptoms
Musculoskeletal: Reports Other (See HPI )
Skin: Reports No Symptoms
Neuro: Reports Other (See HPI )
Physical Exam
-
General: Appears Chronically Ill
HEENT: Normocephalic
Respiratory: Clear to Auscultation
Cardiac: Regular Rhythm and S1/S2
GI: Distended (Mildly )
Musculoskeletal: Edema, Right Lower Extrem and Edema, Left Lower Extrem
Skin: Warm
Neuro: Awake, Alert, Oriented and AO x 3
[2024-08-06] MEDS: DESENEX/MITRAZOL/ZEASORB 1 APPLIC TOPICAL ×2 (07:49→21:12)
[2024-08-06] MEDS: VITAMIN B1 100 MG PO (07:50)
[2024-08-06] MEDS: DUPHALAC/CHRONULAC 20 GRAMS PO ×3 (07:50→18:50)
[2024-08-06] MEDS: LASIX 40 MG PO (07:50)
[2024-08-06] MEDS: ULTRAM 50 MG PO ×2 (07:50→21:13)
[2024-08-06] MEDS: XIFAXAN 550 MG PO ×2 (07:50→21:13)
[2024-08-06] MEDS: MAG-TAB SR 84 MG PO ×2 (07:50→21:13)
[2024-08-06] MEDS: NICODERM TRANSDERMAL 21 MG TRANSDERM (07:51)
[2024-08-06] MEDS: NSS (PRESERVATIVE FREE) 10 ML IV (07:51)
[2024-08-06] MEDS: PROTONIX IV 40 MG IV (07:52)
--- NOTE | 2024-08-06 08:14 | PTCARENOTE ---
Pt is AAOx3 on RA, ambulating to the BR without difficulty.Pt on RA Lungs have crackles in the bases exp wheeze. 1500 fr in progress. Awaiting phlebotomy. Pt only wants phlebotomy drawing blood
[2024-08-06] MEDS: SPIRIVA RESPIMAT 2.5 MCG INH (08:20)
[2024-08-06] MEDS: SYMBICORT 160/4.5 MCG INHALER INH ×2 (08:20→20:19)
[2024-08-06 09:47] LABS: Hematocrit 24.1 % (39.0-52.0); Hemoglobin 8.2 g/dL (13.0-18.0); Mean Corpuscular Hgb 31.7 pg (27.0-31.0); Mean Corpuscular Volume 93.1 fL (80.0-94.0); Platelet Count 75 10^3/uL (130-400); Red Blood Cell Count 2.59 10^6/uL (4.70-6.10); Red Cell Dist. Width 17.2 % (11.5-14.5)
[2024-08-06 09:49] LABS: ALT (SGPT) 21 U/L (0-50); AST (SGOT) 44 U/L (17-59); Albumin 2.6 g/dl (3.5-5.0); Alkaline Phosphatase 59 U/L (38-126); Blood Urea Nitrogen 23 mg/dl (9-20); Carbon Dioxide 23 mmol/L (22-30); Chloride 101 mmol/L (98-107); Estimated Creatinine Clearance 74 ml/min; Glucose 167 mg/dl (70-99); Potassium 3.3 mmol/L (3.5-5.1); Sodium 136 mmol/L (135-145); Total Bilirubin 2.3 mg/dl (0.2-1.3); Total Protein 4.5 g/dl (6.3-8.2); eGFR > 60.00
[2024-08-06 09:53] LABS: INR 1.52; PT 18.1 Sec (11.4-14.6)
--- NOTE | 2024-08-06 14:03 | W.PN.GI.CBS2 ---
Today's Communication / Plan
-
Para tomorrow
Continue current meds
Assessment / Plan
-
The patient is a 59-year-old male with a past medical history significant for decompensated liver cirrhosis secondary to hep C versus alcohol, well-known to our group with recurrent hospitalizations for hepatic encephalopathy and acute on chronic GI
bleeding, portal hypertensive gastropathy, history of post polypectomy bleed, history of HCV status posttreatment with Epclusa with SVR, CVA, hypertension, COPD, chronic thrombocytopenia, anxiety, who presented to the emergency room with altered
mental status and increased abdominal swelling, with recurrent ascites with 5.7 L removed and elevated ammonia with recurrent hepatic encephalopathy. He has had recurrent hospitalizations as noted above for encephalopathy with altered mental
status, acute on chronic GI bleeding secondary to oozing portal hypertension of gastropathy, requiring multiple blood transfusions and IV iron, along with management for his decompensated liver cirrhosis. MELD-3.0 is 17. He is following with "Mayda"Sy from at [facility] outpatient for transplant evaluation. Unfortunately has not been able to be optimized from a medication standpoint with reports of noncompliance with his lactulose at home, only taking it twice daily when directed to take
3 times daily. Started on carvedilol 6.25 mg twice daily at discharge on the last admission to attempt to minimize his GI bleeding from his portal hypertensive gastropathy. Noted with a drop of hemoglobin from 8.4 to 6.9 with reported black stool,
likely oozing from his previously known portal hypertension gastropathy as above. He is awake and alert, but with slow speech pending CT of the brain. Infectious w/u in progress. Started on Rocephin 1g IV daily. His ammonia level has improved. He is
hemodynamically stable pending IV albumin and 1 unit of PRBC.
Problem list:
-altered mental status, HE, ammonia 69, on lactulose 20g TID and Rifaxamin 550mg BID (not compliant at home)
-recurrent Anemia, Hgb 8.4-->6.9 likely 2/2 oozing portal HTN gastropathy
-Decompensated alcoholic/Hep C liver cirrhosis, MELD 3.0= 17
-Chronic thrombocytopenia, stable-> 88,000
-Ascites, requiring near weekly paracentesis, on Lasix 40 mg daily and Aldactone 50 g daily
-Chronic hyponatremia
-Hyperbilirubinemia, chronic
-AFP 30 in March 2024, was in the 10-12 range
-Hx Hep C s/p tx with Epclusa with SVR
-portal hypertension
Other pertinent medical history:
-Chronic pain
-GERD
-Hypertension
-Anxiety
-hx colon polyps
-hx hemorrhoids
Recommendations:
-His recurrent encephalopathy is likely multifactorial given his recurrent anemia/slow GI bleeding v medication non-compliance v decompensated liver disease v use of benzos/opioids v other.
-Agree for SBP prophylaxis with Rocephin 1 g until fluid cell counts are resulted. Albumin 37.5 g ordered post paracentesis with 5.7 L removed
-CT of the head - IMPRESSION: No acute intracranial abnormality identified. Unchanged chronic right frontal infarct as seen previously.
-Further infectious workup is pending with chest x-ray. Urinalysis with no signs of infection.
-2 g restricted sodium diet as tolerated
-Continue with pantoprazole 40 mg daily
-Continue with carvedilol 6.25 mg p.o. twice daily with hold parameters for systolic BP less than 90 or heart rate less than 55, given his history of recurrent refractory ascites may need to be off beta-blockers will discuss with Dr. Dan
-Continue diuretics- lasix 40 mg, Aldactone has been on hold for hyperkalemia restart since the potassium is normalized/low now
-Titrate lactulose for 2-3 BMs per day currently on 20 g 4 times daily and Rifaximin 550 mg BiD. I emphasized importance of compliance with this at home.
-AVOID USE OF XANAX AND OPIOIDS. Reinforced this is likely contributing to his encephalopathy.
-Again needs close OP f/u with Dr. Dan whom is his Trans[facility]. May need to consider TIPS given his recurrent anemia/bleeding and now with increasing ascites despite diuretics but may increase his risk of recurrent hepatic
encephalopathy. His MELD-3.0 score is 17. See note from Dr. Kee he discussed with Dr. Dan and hold on transfer to [facility] for now.
-He will need to see hematology for intermittent transfusions to stay out of the hospital likely.
-OP hepatology f/u for routine HCC surveillance.
-Recurrent lower GI bleed unclear if it is related to possible diverticulosis in the setting of thrombocytopenia and coagulopathy related to underlying cirrhosis, there was no rectal varices noted on prior colonoscopy CTA was negative, hemoglobin
responded to 3 units of packed red blood cells went up from 5.6-7.8 continue to monitor closely. no further bleeding. He did have a repeat colonoscopy in May for recurrent rectal bleeding did not reveal active bleeding but did show diverticulosis
and hemorrhoids and intact OVESCO clip at the hepatic flexure placed on prior colonoscopy in April for post polypectomy bleed.
04/05/24 on exam seems more distended today may need another paracenteses prior to DC will schedule for tomorrow and hopefully can discharge if otherwise medically cleared
Subjective
Subjective
Date of Service: August 06, 2024
No further bleeding and denies abdominal pain hemoglobin remained stable posttransfusion
Objective
Data Reviewed
Laboratory Data:
Laboratory Results
08/06/24 09:26
08/06/24 09:26
Laboratory Results
PT 18.1 Sec (11.4-14.6) H 08/06/24 09:26
INR 1.52 08/06/24 09:26
Magnesium 2.2 mg/dl (1.6-2.3) 08/03/24 06:11
Total Bilirubin 2.3 mg/dl (0.2-1.3) H 08/06/24 09:26
AST 44 U/L (17-59) 08/06/24 09:26
ALT 21 U/L (0-50) 08/06/24 09:26
Alkaline Phosphatase 59 U/L (38-126) 08/06/24 09:26
Vital Signs and I&O:
Vital Signs
Temp Pulse Resp BP Pulse Ox
98.5 F 97 24 111/60 96
08/06/24 11:15 08/06/24 12:00 08/06/24 12:00 08/06/24 12:00 08/06/24 09:28
I&O
08/05/24 08/06/24 08/07/24
06:59 06:59 06:59
Intake Total 6120 / 6120 1080 / 1080
Balance 6120 / 6120 1080 / 1080
Physical Exam
Physical Exam
Cardiology: Normal Sinus Rhythm
Pulmonary: Clear
GI: Soft, Distended, Non Tender and Normal Bowel Sounds
--- NOTE | 2024-08-06 15:03 | W.PN.UPDATE ---
Update Note
Progress Note Update
I saw and evaluated the patient. I reviewed the resident�s note and agree with findings and plan as documented in the resident�s note.
No further episode of stool containing blood
Acute metabolic encephalopathy - Improved
-likely due to hepatic encephalopathy with NH3 of 69 (elevated for him, last number was 47) and possibly benzo induced change in MS
-CT head normal
-Taken off of xanax, discussed with spouse as well, Psychiatry consulted and starting on HS trazodone.
Anemia due chronic disease
Acute blood loss anemia
Hematochezia
-Ferritin 50.4, SI 154, sat 49%, no indication for iron
-C-scope from previous visit reviewed
-Patient required 3 u PRBC this admit
-GI following and input noted, no indication for emergent repeat C-scope, suspected diverticular bleed exacerbated with coagulopathy/thrombocytopenia.
-Hbg 8.2 today, providing oral iron.
Decompensated cirrhosis with abdominal ascites due to history of alcohol and hepatitis C virus
-Continue Lasix/Rifaximin
-maintain on ceftriaxone for SBP prophylaxis
-maintain on PPI
-s/p 5.7L - no SBP on fluid analysis
-37.5g alb given post paracentesis
-GI discussed with primary briefcase sewer at [facility], as patient MELD score is low no indication for emergent TIPS
-Repeat paracentesis requested
Hypotension - resolved
Essential HTN
-resume back aldatone 25mg/d, will increase to 50mg if BP remains appropriate
Shoulder pain
-symptomatic care with lidocaine patch
Hyperkalemia/hyponatremia - resolved
--likely due to fluid shifts/balance/diuretics
COPD
-exacerbation ruled out
-maintain on neb therapy
DVT Prox: SCD,
Code Status: Full Code
Transfer to med/surg
[2024-08-06] MEDS: ALDACTONE 25 MG PO (15:06)
--- NOTE | 2024-08-06 16:45 | PTCARENOTE ---
Pt for tx to [id number] report given
[2024-08-06] MEDS: FEOSOL 325 MG PO (16:50)
[2024-08-06] MEDS: KCL 20 MEQ PO (16:50)
--- NOTE | 2024-08-06 17:08 | PTCARENOTE ---
Pt tx to 338 bed 2 via stretcher with belongings
[2024-08-06] MEDS: PROTONIX 40 MG PO (21:13)
[2024-08-06] MEDS: DESYREL 25 MG PO (21:14)
[2024-08-06] MEDS: LIDOCAINE 4% PATCH TOPICAL (21:16)
[2024-08-06] MEDS: DUPHALAC/CHRONULAC PO (21:20)
[2024-08-07 00:28] VITALS: BP 116/62
--- NOTE | 2024-08-07 05:50 | W.PN.HOSP.TC ---
Addendum entered and electronically signed by Sai Mariano MD 08/07/24 13:48:
I saw and evaluated the patient. I reviewed the resident�s note and agree with findings and plan as documented in the resident�s note.
No reported bleeding overnight. Hemoglobin of 7.7.
GI PA at bedside and discussed care plan with patient primary can carrier. Patient to follow-up with outpatient GI for continual workup for liver cirrhosis and eventual need of liver transplant
Repeat blood work on Tuesday, GI PA has sent prescription to laboratory
Patient to be discharged home
Original Note:
Today's Communication/Plan
-
The patient is planning to be discharged today
Assessment / Plan
Assessment / Plan
Impression: The patient is a 59 year old male who presented to ER complaining from confusion, lethargy and general weakness. The patient had been recently admitted on 07/19 until 07/22 for recurrent GI bleed, acute on chronic anemia. During this
hospitalization he received blood transfusions and IV iron. He had been also treated for possible SBP with antibiotics and had paracentesis to drain. He was started on Coreg to hopefully help with portal venous hypertension and resultant
gastropathy/GI bleeding. On 08/03, he was refereed to ER by his [place] home care assistant. His reported intermittent black and bloody bowel movements at present to ER. The patient`s head CT showed only old right frontal stroke. After the admission
the patient had a paracentesis and had 5.7 L fluid removed.The patient was was started on Rocephin for SBP prophylaxis. He had he had a few episodes of hematemesis and was consulted to GI. He was given 3 Unit of RBC. Since yesterday, the patient
denies having bloody stools and he had a normal loose stool this morning. The patient was consulted to [facility] on 08/06 for a possible paracentesis. He was seen by IRAD on 08/07 and 4350 milliliters of ascitic fluid was removed.
#Acute metabolic encephalopathy
- Improved
-Likely due to hepatic encephalopathy with NH3 of 69 (elevated for him, last number was 47) and possibly benzo induced change in MS
-CT head normal
-Psychiatry consulted and started on trazodone
-Taken off of Xanax, discussed with spouse as well,
#Acute blood loss anemia
-Hematochezia: Per GI: related to possible diverticulosis in the setting of thrombocytopenia and coagulopathy related to underlying cirrhosis
-Ferritin 50.4, SI 154, sat 49%, no indication for iron
-C-scope from previous visit reviewed
-Patient required 3 u RBC this admit
-No further GI bleed overnight, hgb 8.2 on 08/06 (increased from 7.3 on 08/04)
-GI following and input noted, no indication for emergent repeat C-scope, suspected diverticular bleed exacerbated with coagulopathy/thrombocytopenia.
-GI rec on 08/05:Need to see hematology for intermittent transfusions to stay out of the hospital likely
#Decompensated cirrhosis with abdominal ascites due to history of alcohol and hepatitis C virus
-Continue Lasix/Rifaximin
- Peritoneal culture: No growth and clean yellow pattern. Ceftriaxone was stopped for SBP prophylaxis
-Maintain on PPI
-37.5g alb given post paracentesis
-GI discussed with primary can carrier at [facility], as patient MELD score is low no indication for emergent TIPS
-GI rec on 08/05:Titrate lactulose for 2-3 BMs per day currently on 20 g 4 times daily and Rifaximin 550 mg BiD.
-IRAD did another paracentesis this morning
#Hypotension
-Asymptomatic. BP is more nadia 119/59
-Start Aldactone 25 mg for now
-Hold Coreg due hypotansion
- Given his history of recurrent refractory ascites may need to be off beta-blockers will discuss with Dr. Dan by GI
#Shoulder pain
-symptomatic care with lidocaine patch
#Hyperkalemia/hyponatremia
- likely due to fluid shifts/balance/diuretics
#Hypokalemia
-K level is 3.3 on 08/06 :Aldactone 25 mg was started and was given PO K
#COPD
-exacerbation ruled out
-maintain on neb therapy
#DVT Prox: SCD,
Code Status: Full Code
Anticipated Discharge: Today
Subjective/Interval History
-
Date of Service: August 07
The patient was seen in his bed after he was sen by IRAD for paracentesis this morning.
Objective Data
-
Vital Signs:
Vital Signs
Temp Pulse Resp BP Pulse Ox
99.2 F 86 16 116/62 96
08/06/24 23:28 08/06/24 23:28 08/06/24 23:28 08/06/24 23:28 08/06/24 23:28
I&O
08/05/24 08/06/24 08/07/24
06:59 06:59 06:59
Intake Total 6120 / 6120 1080 / 1080
Balance 6120 / 6120 1080 / 1080
Review of Systems
-
EENT: Reports No Symptoms Reported
Respiratory: Reports No Symptoms
Cardiac: Reports No Symptoms
Abdomen/GI: Reports Other (See HPI )
Genitourinary: Reports No Symptoms
Musculoskeletal: Reports Other (See HPI )
Skin: Reports No Symptoms
Neuro: Reports Other (See HPI )
Physical Exam
-
General: Appears Chronically Ill
HEENT: Normocephalic and Atraumatic
Respiratory: Clear to Auscultation
Cardiac: Regular Rhythm and S1/S2
GI: Distended
Musculoskeletal: Edema, Right Lower Extrem and Edema, Left Lower Extrem
Skin: Warm
Neuro: Awake, Alert, Oriented and AO x 3
--- NOTE | 2024-08-07 05:54 | W.DCSUMMARY ---
Discharge Summary
Discharge Data
Date of Admission: 08/02/24
Date of Discharge: 08/07/24
-
Pending Results: No
Hospital Course
Principal Discharge diagnosis:Acute metabolic encephalopathy, Acute blood loss anemia, Decompensated cirrhosis with abdominal ascites
Chronic Discharge Diagnosis: COPD, CVA, HTN, hepatic cirrhosis Anxiety, insomnia
Hospital Course : The patient presented to ER complaining from confusion, lethargy and general weakness. He was refereed to ER by his [place] wastewater analyst. His reported intermittent black and bloody bowel movements at present to ER. The
patient`s head CT showed only old right frontal stroke. After the admission the patient had a paracentesis and had 5.7 L fluid removed.The patient was was started on Rocephin for SBP prophylaxis. He had he had a few episodes of hematemesis and was
consulted to GI. He was given 3 Unit of RBC. Since yesterday, the patient denies having bloody stools and he had a normal loose stool this morning. [facility] did paracentesis this morning on 08/07 and removed 4350 milliliters of ascitic fluid. Fluid was
sent for laboratory analysis.
Problem #1: Acute metabolic encephalopathy: improved after admission. CT head did not show any acute abnormality, an old infarct was found. This MS change us likely due to hepatic encephalopathy with NH3 of 69 (elevated for him, last number was 47)
and possibly benzo induced. He was taken off benzo, discussed with spouse as well, Psychiatry consulted and the patient was started on trazodone for insomnia.
Problem #2: Acute blood loss anemia: GI was consulted. Per GI: related to possible diverticulosis in the setting of thrombocytopenia and coagulopathy related to underlying cirrhosis. He was given 3 Units of RBC transfusion. The patient did not have
hematochezia for last 2 [id number] his Hgb levels were nadia.
-Ferritin 50.4, SI 154, sat 49%, no indication for iron
Problem #3: Decompensated cirrhosis with abdominal ascites due to history of alcohol and hepatitis C virus: After the admission the patient had a paracentesis and had 5.7 L fluid removed.The patient was was started on Rocephin for SBP prophylaxis.
His peritoneal fluid culture resulted negative. GI discussed with primary herpetologist at [facility], as patient MELD score is low no indication for emergent TIPS. The patient was consulted [facility]AD for another paracentesis which was done on 08/07
Problem #4: Electrolyte imbalance: Hyperkalemia/hyponatremia: Resolved after admission. K level of the patient was found 3.3 yesterday and he was given 20 meq K and he was also started on Aldactone 25 mg.
Problem #5:Hypotension: The patient has hypotension and he was Asymptomatic. BP started to increase the following day. He Aldactone and Coreg were hold on due hypotension. Yesterday he was started on Aldactone.
Other chronic problems: These includes shoulder pain, COPD. These chronic problems were nadia.
Important imaging studies:
-Paracentesis With Us Guide 08/03:
FINDINGS: 5700 cc of clear yellow ascitic fluid was evacuated. Samples sent for analysis as requested.
-Chest X Ray 08/03
IMPRESSION: 1. Clear lungs. 2. No significant change compared to prior study.
-Head CT 08/03:
FINDINGS:
There is moderate chronic right frontal infarct as seen previously. No acute loss of deleon-white differentiation is identified. Posterior fossa structures are within normal limits. There is no acute bleed, mass effect, or midline shift. Ventricles
are normal in size. There is no skull fracture.
-Abdominal CT 08/03:
IMPRESSION: No evidence of GI bleed.
Findings consistent with cirrhosis .
Moderate abdominopelvic ascites.
Mild splenomegaly.
Nonobstructing bilateral urinary stones as described above.
Too small to characterize hypodense right renal lesions likely benign cysts.
-US Abd W Abd Doppler 08/04:
IMPRESSION: Cirrhosis with splenomegaly and moderate ascites
Paracentesis With Us Guide 08/07:
IMPRESSION: Successful ultrasound-guided paracentesis, yielding 4350 milliliters of ascitic fluid. Fluid was sent for laboratory analysis.
Discharge Plan
-
Patient Disposition: Home (Routine Discharge)
Discharge Diagnosis/Procedures: Acute metabolic encephalopathy, Acute blood loss anemia, Decompensated cirrhosis with abdominal ascites, COPD, CVA, HTN, hepatic cirrhosis Anxiety, insomnia
Condition: Fair
Diet: 2 Gram Sodium and Restrict fluids to 48 oz
Activity: As tolerated
Driving Restrictions: As prior to admission
Bathing Restrictions: OK to Shower
Blood Work: repeat labs Tuesday slips given to
Referrals:
Ebenezer Dan MD [Non-Admitting Privileges] - (follow up for transplant evaluation )
Anjana Harrison PA-C [Specified Professional Personl] - 08/22/24 1:00 pm (follow up with anjana harrison in Dr. Weaver's office. as scheduled. Call for any question or problems)
Drake Goss DO [Family Provider] - in one week
Prescriptions:
New
ferrous sulfate [FeroSul] 325 mg (65 mg iron) Tablet
325 mg PO DAILY 30 Days Qty: 30 0RF
trazodone 50 mg tablet
25 mg PO HS PRN (Reason: Anxiety/insomnia) Qty: 30 0RF
Continued
furosemide [Lasix] 40 mg Tablet
40 mg PO DAILY
thiamine HCl (vitamin B1) 100 mg tablet
100 mg PO DAILY
Breztri Aerosphere 160-9-4.8 mcg/actuation Hfa Aerosol Inhaler
2 inh INHALATION R BID
spironolactone 50 mg tablet
50 mg PO DAILY
Xifaxan 550 mg Tablet
550 mg PO BID
magnesium oxide 400 mg magnesium Tablet
400 mg PO BID
lactulose 20 gram/30 mL Solution
20 g PO TID Qty: 2880 0RF
miconazole nitrate [Miconazorb AF] 2 % Powder
1 applic topical BID 7 Days Qty: 85 0RF
lidocaine 4 % Adhesive Patch,Medicated
1 patch topical DAILY 30 Days Qty: 30 0RF
nicotine 21 mg/24 hr Patch 24 Hour
21 mg transdermal DAILY Qty: 30 0RF
pantoprazole [Protonix] 40 mg tablet,delayed release (DR/EC)
40 mg PO BID
Changed
tramadol 50 mg Tablet
50 mg PO BID PRN (Reason: Pain) Qty: 0 0RF
Discontinued
alprazolam 1 mg tablet
1 mg PO BID@0800,1800
Patient Comments:
08/02/2024: last filled 06/12/24, 180 tabs for 90 days from [facility]
carvedilol [Coreg] 6.25 mg tablet
6.25 mg PO BID Qty: 60 0RF
Patient Comments:
08/02/24: When director of plant operations with spouse, she stated patient should be reevaluated for this medication.
Discharge Orders:
Discharge Patient (As Directed); Ordered 08/07/24
Ordered By: Sai Mariano
Discharge Date and Time
Discharge Date/Time: 08/07/24 11:53
Print Language: NICARAGUAN
[2024-08-07 06:00] VITALS: BMI 26.0
[2024-08-07 07:40] VITALS: BP 110/93; BP_SYST 85
[2024-08-07] MEDS: SPIRIVA RESPIMAT 2.5 MCG INH (07:51)
[2024-08-07] MEDS: SYMBICORT 160/4.5 MCG INHALER INH (07:51)
[2024-08-07 08:03] LABS: Hematocrit 22.6 % (39.0-52.0); Hemoglobin 7.7 g/dL (13.0-18.0); Mean Corp Hgb Conc. 34.1 g/dL (33.0-37.0); Mean Corpuscular Hgb 30.7 pg (27.0-31.0); Mean Platelet Volume 10.1 fL (7.4-10.4); Platelet Count 69 10^3/uL (130-400); Red Blood Cell Count 2.51 10^6/uL (4.70-6.10); Red Cell Dist. Width 17.2 % (11.5-14.5); White Blood Cell Count 6.2 10^3/uL (4.8-10.8)
[2024-08-07 08:29] LABS: ALT (SGPT) 21 U/L (0-50); AST (SGOT) 43 U/L (17-59); Albumin 2.5 g/dl (3.5-5.0); Alkaline Phosphatase 69 U/L (38-126); Blood Urea Nitrogen 21 mg/dl (9-20); Calcium 7.8 mg/dl (8.4-10.2); Carbon Dioxide 25 mmol/L (22-30); Chloride 102 mmol/L (98-107); Estimated Creatinine Clearance 81 ml/min; Glucose 96 mg/dl (70-99); Potassium 3.2 mmol/L (3.5-5.1); Sodium 134 mmol/L (135-145); Total Bilirubin 2.6 mg/dl (0.2-1.3); Total Protein 4.3 g/dl (6.3-8.2); eGFR > 60.00
[2024-08-07 09:00] VITALS: BP 114/57; BP_SYST 77
--- NOTE | 2024-08-07 09:10 | W.PN.GI.CBS2 ---
Addendum entered and electronically signed by MARCIA Valdez 08/07/24 10:30:
I discussed with Dr. Mariano for discharge today
Original Note:
Today's Communication / Plan
-
-His recurrent encephalopathy is likely multifactorial given his recurrent anemia/slow GI bleeding v medication non-compliance v decompensated liver disease v use of benzos/opioids v other.
-pt complete course of Rocephin in setting of GI bleed and cirrhosis on 08/05
no signs of recurrent GI bleeding now
s/p para this am for 4350 no albumin needed, neg SBP
K 3.2 cont to replete per hospitalist
remains on Aldactone 50mg and Lasix 40mg discussed with need to consider increased with risk/benfits
coreg to stay on hold for now
slip given to for lab check on Tuesday
discussed adding several bannanas daily with low K
cont Xifaxan and Lactulose
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
-OP hepatology f/u for routine HCC surveillance.
- I sent message to Dr. Dan to arrange hepatology follow up. Next step will be downtown evaluation. Dr. Dan will arrange timing updated .
cont PO iron consider OP heme follow up for anemia
all questions answered advised to call with problems
Assessment / Plan
-
The patient is a 59-year-old male with a past medical history significant for decompensated liver cirrhosis secondary to hep C versus alcohol, well-known to our group with recurrent hospitalizations for hepatic encephalopathy and acute on chronic GI
bleeding, portal hypertensive gastropathy, history of post polypectomy bleed, history of HCV status posttreatment with Epclusa with SVR, CVA, hypertension, COPD, chronic thrombocytopenia, anxiety, who presented to the emergency room with altered
mental status and increased abdominal swelling, with recurrent ascites with 5.7 L removed and elevated ammonia with recurrent hepatic encephalopathy. He has had recurrent hospitalizations as noted above for encephalopathy with altered mental
status, acute on chronic GI bleeding secondary to oozing portal hypertension of gastropathy, requiring multiple blood transfusions and IV iron, along with management for his decompensated liver cirrhosis. He is following with Dr. Dan from EP
at [place] outpatient for transplant evaluation. Unfortunately has not been able to be optimized from a medication standpoint with reports of noncompliance with his lactulose at home, only taking it twice daily when directed to take 3 times daily.
Started on carvedilol 6.25 mg twice daily at discharge on the last admission to attempt to minimize his GI bleeding from his portal hypertensive gastropathy. He was noted with increased bleeding during admission with neg CTA now improved ?
diverticular bleed vs other.
Problem list:
-altered mental status, HE, ammonia 69, on lactulose 20g QID and Rifaxamin 550mg BID
-recurrent Anemia, likely 2/2 oozing portal HTN gastropathy
-incresaed bleeding during admission with concern for diverticular bleed, CTA neg no rectal varices seen on prior colonoscopy
-Decompensated alcoholic/Hep C liver cirrhosis, MELD 3.0 17 08/06 and on admission
-Chronic thrombocytopenia
-Ascites, requiring near weekly paracentesis, on Lasix 40 mg daily and Aldactone 50 g daily
-Chronic hyponatremia
-Hyperbilirubinemia, chronic
-AFP 30 in March 2024, was in the 10-12 range
-Hx Hep C s/p tx with Epclusa with SVR
-portal hypertension
-hypokalemia
Other pertinent medical history:
-Chronic pain
-GERD
-Hypertension
-Anxiety
-hx colon polyps
-hx hemorrhoids
Recommendations:
-His recurrent encephalopathy is likely multifactorial given his recurrent anemia/slow GI bleeding v medication non-compliance v decompensated liver disease v use of benzos/opioids v other.
-pt complete course of Rocephin in setting of GI bleed and cirrhosis on 08/05
no signs of recurrent GI bleeding now
s/p para this am for 4350 no albumin needed, neg SBP
K 3.2 cont to replete per hospitalist
remains on Aldactone 50mg and Lasix 40mg discussed with need to consider increased with risk/benfits
coreg to stay on hold for now
slip given to for lab check on Tuesday
discussed adding several bannanas daily with low K
cont Xifaxan and Lactulose
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
-OP hepatology f/u for routine HCC surveillance.
- I sent message to Dr. Dan to arrange hepatology follow up. Next step will be downtown evaluation. Dr. Dan will arrange timing updated .
cont PO iron consider OP heme follow up for anemia
all questions answered advised to call with problems
Subjective
Subjective
Date of Service: August 07, 2024
08/05 last stool on 2 gram Na diet feeling well
Objective
Data Reviewed
Laboratory Data:
Laboratory Results
08/07/24 06:45
08/07/24 06:45
Laboratory Results
PT 18.1 Sec (11.4-14.6) H 08/06/24 09:26
INR 1.52 08/06/24 09:26
Magnesium 2.2 mg/dl (1.6-2.3) 08/03/24 06:11
Total Bilirubin 2.6 mg/dl (0.2-1.3) H 08/07/24 06:45
AST 43 U/L (17-59) 08/07/24 06:45
ALT 21 U/L (0-50) 08/07/24 06:45
Alkaline Phosphatase 69 U/L (38-126) 08/07/24 06:45
Vital Signs and I&O:
Vital Signs
Temp Pulse Resp BP Pulse Ox
98.1 F 77 15 114/57 94
08/07/24 07:40 08/07/24 09:00 08/07/24 09:00 08/07/24 09:00 08/07/24 09:00
I&O
08/06/24 08/07/24 08/08/24
06:59 06:59 06:59
Intake Total 1080 / 1080 480 / 480
Balance 1080 / 1080 480 / 480
Physical Exam
Physical Exam
HEENT: Anicteric, Moist mucous membranes and Other (tip of nose lesion)
Cardiology: Normal Sinus Rhythm
Pulmonary: Clear
GI: Soft, Distended and Non Tender
Extremities: Edema
Neuro: Non Focal
[2024-08-07 09:14] VITALS: BP 114/57
[2024-08-07 09:21] LABS: Body Fluid Mononuclear 96.7 %; Body Fluid Polymorphonuclear 3.3 %; Body Fluid WBC 61 /CUMM
[2024-08-07 09:25] LABS: Body Fluid Second Tech RLT
[2024-08-07] MEDS: KLOR-CON 20 MEQ PO (09:58)
[2024-08-07] MEDS: ULTRAM 50 MG PO (09:58)
[2024-08-07] MEDS: PROTONIX 40 MG PO (09:59)
[2024-08-07] MEDS: MAG-TAB SR 84 MG PO (09:59)
[2024-08-07] MEDS: NICODERM TRANSDERMAL 21 MG TRANSDERM (09:59)
[2024-08-07] MEDS: LASIX 40 MG PO (09:59)
[2024-08-07] MEDS: FEOSOL 325 MG PO (09:59)
[2024-08-07] MEDS: XIFAXAN 550 MG PO (09:59)
[2024-08-07] MEDS: DUPHALAC/CHRONULAC 20 GRAMS PO (09:59)
[2024-08-07] MEDS: VITAMIN B1 100 MG PO (10:00)
[2024-08-07] MEDS: DESENEX/MITRAZOL/ZEASORB 1 APPLIC TOPICAL (10:01)
[2024-08-07 10:49] VITALS: BP 120/59
--- NOTE | 2024-08-07 11:37 | CM ---
MD entered order for discharge.
Spoke with Cherise she is driving him home.
Requested [facility] [place] liaison notified of referral .
PLAN home with [facility]
[2024-08-07 11:49] VITALS: BP 120/59
--- NOTE | 2024-08-07 12:15 | VNURNOTE ---
Home Health Liaison spoke with patient and to discuss [facility] nurse/therapy, visits, schedule and homebound status. They are agreeable and understand that visits at home will be 2-3 x per week to assess and teach medical management. [facility]
brochure provided with contact information. Patient is aware that [facility] will contact them for start of care in 1-2 days after discharge from . [facility] referral completed in [facility].
== END 2024-08-07 11:53 | disposition home health service (06) | DRG 432 ==
LOC: 3 WEST ACU 18:41
PROVIDERS: Nurse Practitioner Adult Health; Physician Assistant; Radiology Diagnostic Radiology; Radiology Vascular & Interventional Radiology; Student in an Organized Health Care Education/Training Program; ADMITTING PHYSICIAN Internal Medicine; ATTENDING PHYSICIAN Hospitalist; CONSULT PHYSICIAN Psychiatry & Neurology Psychiatry; EMERGENCY PHYSICIAN Student in an Organized Health Care Education/Training Program; FAMILY PHYSICIAN Internal Medicine; OTHER PHYSICIAN Student in an Organized Health Care Education/Training Program
PROC: 30233N1 Transfusion of Nonautologous Red Blood Cells into Peripheral Vein, Percutaneous Approach (ICD-10-PCS; 2024-08-03)
PROC: 0W9G3ZZ Drainage of Peritoneal Cavity, Percutaneous Approach (ICD-10-PCS; 2024-08-03)
DX: K70.31 Alcoholic cirrhosis of liver with ascites (principal); G93.41 Metabolic encephalopathy; D62 Acute posthemorrhagic anemia; E87.1 Hypo-osmolality and hyponatremia; K76.6 Portal hypertension; K92.1 Melena; K76.82 Hepatic encephalopathy; D63.8 Anemia in other chronic diseases classified elsewhere; E87.5 Hyperkalemia; F17.210 Nicotine dependence, cigarettes, uncomplicated; T47.3X6A Underdosing of saline and osmotic laxatives, initial encounter; J44.9 Chronic obstructive pulmonary disease, unspecified; B19.20 Unspecified viral hepatitis C without hepatic coma; M25.511 Pain in right shoulder; F41.9 Anxiety disorder, unspecified; G47.00 Insomnia, unspecified; K31.89 Other diseases of stomach and duodenum; D69.6 Thrombocytopenia, unspecified; K21.9 Gastro-esophageal reflux disease without esophagitis; R16.1 Splenomegaly, not elsewhere classified; I95.9 Hypotension, unspecified; I10 Essential (primary) hypertension; G89.4 Chronic pain syndrome; F10.21 Alcohol dependence, in remission; K64.8 Other hemorrhoids; N20.9 Urinary calculus, unspecified; Z91.138 Patient's unintentional underdosing of medication regimen for other reason; Z79.899 Other long term (current) drug therapy; Z86.73 Personal history of transient ischemic attack (TIA), and cerebral infarction without residual deficits
CPT/HCPCS: 49083; 70450; 71046; 74174; 76700; 80053; 81003; 81015; 82042; 82140; 82150; 82533; 82607; 82728; 82746; 83540; 83550; 83615; 83735; 84157; 85014; 85018; 85025; 85027; 85045; 85610; 86850; 86900; 86901; 86920; 86922; 87015; 87070; 87086; 87205; 89051; 93975; 94640; 99285; 99406; P9016; P9047; Q9967

== ENCOUNTER → 2024-08-13 07:29 | Outpatient (REF) | payer BC, SELFPAY ==
[2024-08-13 08:45] LABS: INR 1.53; PT 18.3 Sec (11.4-14.6)
[2024-08-13 08:46] LABS: APTT 36.8 Sec (23.4-35.0)
[2024-08-13 09:02] LABS: % Basophils 0.7 % (0-2); % Eosinophils 4.8 % (0-6); % Immature Granulocytes 0.3 % (0-0.5); % Lymphocytes 17.9 % (20.5-51.1); % Monocytes 7.8 % (1.7-9.3); % Neutrophils 68.5 % (42.2-75.2); Absolute Eosinophils 0.3 10^3/uL (0-0.7); Absolute Lymphocytes 1.1 10^3/uL (1.2-3.4); Absolute Monocytes 0.5 10^3/uL (0.1-0.6); Absolute Neutrophils 4.1 10^3/uL (1.4-6.5); Hematocrit 22.8 % (39.0-52.0); Hemoglobin 7.7 g/dL (13.0-18.0); Mean Corp Hgb Conc. 33.8 g/dL (33.0-37.0); Mean Corpuscular Hgb 30.2 pg (27.0-31.0); Mean Corpuscular Volume 89.4 fL (80.0-94.0); Mean Platelet Volume 10.4 fL (7.4-10.4); Nucleated Red Blood Cells % 0 % (-); Platelet Count 88 10^3/uL (130-400); Red Blood Cell Count 2.55 10^6/uL (4.70-6.10); Red Cell Dist. Width 16.1 % (11.5-14.5)
[2024-08-13 09:31] LABS: ALT (SGPT) 28 U/L (0-50); AST (SGOT) 56 U/L (17-59); Albumin 1.8 g/dl (3.5-5.0); Alkaline Phosphatase 152 U/L (38-126); Blood Urea Nitrogen 31 mg/dl (9-20); Calcium 7.7 mg/dl (8.4-10.2); Carbon Dioxide 21 mmol/L (22-30); Chloride 98 mmol/L (98-107); Glucose 122 mg/dl (70-99); Potassium 3.7 mmol/L (3.5-5.1); Sodium 129 mmol/L (135-145); Total Bilirubin 1.6 mg/dl (0.2-1.3); Total Protein 4.7 g/dl (6.3-8.2)
== END ==
LOC: REG 07:29
PROVIDERS: ATTENDING PHYSICIAN Nurse Practitioner Adult Health; FAMILY PHYSICIAN Internal Medicine
DX: R18.8 Other ascites (principal)
CPT/HCPCS: 36415; 80053; 85025; 85610; 85730

== ENCOUNTER 2024-08-14 20:23 | Emergency (ER) | payer BC, SELFPAY ==
[2024-08-14 20:31] VITALS: BMI 27.8
[2024-08-14 20:36] VITALS: BP 124/66
--- NOTE | 2024-08-14 22:41 | ED.GENMED ---
History of Present Illness
General
Chief Complaint: Nose Bleed
Source: patient
Exam Limitations: none
Time Seen by Provider: 08/14/24 20:51
Nursing documentation reviewed up to this point in time: agreed with
History of Present Illness
History of Present Illness:
Patient sustained trip and fall at home. Hit nose on ground. Had Mohs procedure on nose today. Bleeding from site. Brought to ED via EMS for eval
Past History
Past History
ED Past Medical History: COPD, CVA, HTN, Psychiatric and Other
ED Past Surgical History: Other
Social History
Tobacco: Smoker
Alcohol: Former
Drug: None
Personal:
Living: with family
Employment: Employed
Family History
Family History: Diabetes and Other
Review of Systems
Review of Systems
Allergies reviewed?: Yes
All Other Systems: ROS reviewed and negative except as documented in HPI and ROS
Constitutional: Reports no symptoms
EENT: Reports other (Mohs procedure to nose. Bleeding from site)
Respiratory: Reports no symptoms
Cardiac: Reports no symptoms
ABD/GI: Reports no symptoms
Musculoskeletal: Reports no symptoms
Skin: Reports other (bleeding from Mohs site)
Neurological: Reports no symptoms
Psychiatric: Reports no symptoms
Phy Exam
General Physical Exam
General Presentation: well appearing and mild distress
General age: appears stated age
General Skin: warm and dry
General Habitus: normal
ENT Exam
ENT Exam: EOMI, TM's normal, neck supple and other (no acute epistaxis. Dry blood bilateral nares. No septal hematoma)
Eye Exam
Eye Exam: PERRL, EOMI, conjunctiva normal and globe normal
Neurological Exam
Neurological Exam: alert, oriented x3, CN II-XII intact, no motor deficits and no sensory deficits
Musculoskeletal Exam
Musculoskeletal Exam: full ROM and neuro vasc intact
Skin Exam
Skin Exam: other (Mohs procedure to nose today. Sutures are intact, bleeding from site)
Psychiatric Exam
Psychiatric Exam: normal mood/affect
Course
Orders/Labs/Results
Orders:
Orders
08/14/24 21:10
CT Head W/o Iv Contrast Urgent
Comment:
Reason For Exam: trauma
Facial Bones wo Contrast CT [CT Facial Bones W/o Iv Contras] Urgent
Comment:
Reason For Exam: trauma
Vital Signs
Initial and Last Documented VS:
Initial Vital Signs
Temp Pulse Resp BP Pulse Ox
98.2 F 88 16 124/66 98
08/14/24 20:36 08/14/24 20:36 08/14/24 20:36 08/14/24 20:36 08/14/24 20:36
Last Documented Vital Signs
Temp Pulse Resp BP Pulse Ox
98.2 F 88 16 124/66 98
08/14/24 20:36 08/14/24 20:36 08/14/24 20:36 08/14/24 20:36 08/14/24 20:36
*Radiology
Radiology exam reviewed: radiology read reviewed
*Pulse Oximetry
Patient hypoxic: no
*Critical Care Note
Total Time (30-74mins, 75-104mins- exclusive of procedures): Not Applicable
ED Attending Note
-
Portions of this chart may have been created with voice recognition software.� Occasional wrong word or��sound alike� substitutions may have occurred due to the inherent limitations of voice recognition software.
Discharge Plan
Departure
Patient Disposition: Home (Routine Discharge)
Date of Disposition: 08/14/24
Time of Disposition: 22:39
Patient with high blood pressure during this ER visit?: No
Condition: Good
Covid-19: Not Applicable
Discharge Problem:
Head injury
Instructions: Head injury in adults, Nosebleeds (DC)
Prescriptions:
No Action
furosemide [Lasix] 40 mg Tablet
40 mg PO DAILY
thiamine HCl (vitamin B1) 100 mg tablet
100 mg PO DAILY
Breztri Aerosphere 160-9-4.8 mcg/actuation Hfa Aerosol Inhaler
2 inh INHALATION R BID
spironolactone 50 mg tablet
50 mg PO DAILY
Xifaxan 550 mg Tablet
550 mg PO BID
magnesium oxide 400 mg magnesium Tablet
400 mg PO BID
lactulose 20 gram/30 mL Solution
20 g PO TID Qty: 2880 0RF
miconazole nitrate [Miconazorb AF] 2 % Powder
1 applic topical BID 7 Days Qty: 85 0RF
lidocaine 4 % Adhesive Patch,Medicated
1 patch topical DAILY 30 Days Qty: 30 0RF
pantoprazole [Protonix] 40 mg tablet,delayed release (DR/EC)
40 mg PO BID
ferrous sulfate [FeroSul] 325 mg (65 mg iron) Tablet
325 mg PO DAILY 30 Days Qty: 30 0RF
trazodone 50 mg tablet
25 mg PO HS PRN (Reason: Anxiety/insomnia) Qty: 30 0RF
tramadol 50 mg Tablet
50 mg PO BID PRN (Reason: Pain) Qty: 0 0RF
Referrals:
Drake Goss DO [Family Provider] - Tomorrow
Interventions
Interventions:
*Risk Screen - Suicide Last Done: 08/14/24 20:31
*General Assessment Last Done: 08/14/24 20:31
*Neglect/Abuse Screening Last Done: 08/14/24 20:31
ED- Fall Risk Assessment Last Done: 08/14/24 20:31
*ED COVID-19 Vaccine History Last Done: 08/14/24 20:31
*Nursing Disposition Last Done: 08/14/24 23:21
ED-EENT Assessment Last Done: 08/14/24 20:35
Discharge Date and Time
Discharge Date/Time: 08/14/24 23:22
Print Language: [id number]
--- NOTE | 2024-08-14 23:18 | PTCARENOTE ---
Notified by Estella, ED Charge that patient's is unwilling to pick him up s/p discharge from the ED. She states that he has appointments at the hospital tomorrow and will just be keeping him here until then. Spoke to patient directly and
confirmed that he would like to go home to sleep in his own bed tonight. Patient AAOx4 with appropriate affect. Explained to patient's Cherise that he is not able to stay in emergency department until outpatient appointments tomorrow. Patient's
states, 'you don't know the day I've had.' Empathasized with while emphasizing someone would need to pickup the patient. states, 'he's confused and shouldn't be discharged.' Explained to that he was AAOx4 and if she had any
concerns, she could speak to the provider about them. then stated, 'just bring him out to me. I'm not coming in.' and proceeded to hang up on me. Patient taken to car by flying i instructor.
--- NOTE | 2024-08-14 23:18 | EDRN ---
Asked by previous nurse to take patient out when arrived. Took pt in wheelchair out to car and assisted to get him into the car. began to scream at me 'this is so fucking inappropriate, i have to be back here at 0800 with him. I'm going
to be reporting this, this is just so fucking inappropriate' attempted to apologize she did not want to hear it.
pt went to bathroom and washed his hands prior to leaving.
== END 2024-08-14 23:22 | disposition home or self-care (01) ==
LOC: EMR 20:23
PROVIDERS: EMERGENCY PHYSICIAN Emergency Medicine; FAMILY PHYSICIAN Internal Medicine
DX: S09.90XA Unspecified injury of head, initial encounter (principal); L76.21 Postprocedural hemorrhage of skin and subcutaneous tissue following a dermatologic procedure; W01.0XXA Fall on same level from slipping, tripping and stumbling without subsequent striking against object, initial encounter; J44.9 Chronic obstructive pulmonary disease, unspecified; I10 Essential (primary) hypertension; F17.200 Nicotine dependence, unspecified, uncomplicated; Z83.3 Family history of diabetes mellitus; Z86.73 Personal history of transient ischemic attack (TIA), and cerebral infarction without residual deficits
CPT/HCPCS: 99284; 70450; 70486

== ENCOUNTER → 2024-08-15 08:40 | Outpatient (REF) | payer BC, SELFPAY ==
[2024-08-15 09:05] VITALS: BP 128/61; BP_SYST 88
--- NOTE | 2024-08-15 09:27 | PTCARENOTE ---
Patient on arrival at 0900 requsted stop at [facility]. Due to fall last PM and ED visit nursing remained with patient while standing to void.
[2024-08-15 10:30] VITALS: BP 100/77; BP_SYST 86
[2024-08-15 10:34] LABS: INR 1.42; PT 17.5 Sec (11.4-14.6)
[2024-08-15 10:35] LABS: APTT 38.3 Sec (23.4-35.0)
[2024-08-15 10:40] VITALS: BP 100/77
[2024-08-15 10:55] LABS: ALT (SGPT) 28 U/L (0-50); AST (SGOT) 54 U/L (17-59); Albumin 2.8 g/dl (3.5-5.0); Alkaline Phosphatase 134 U/L (38-126); Blood Urea Nitrogen 38 mg/dl (9-20); Calcium 7.8 mg/dl (8.4-10.2); Carbon Dioxide 20 mmol/L (22-30); Chloride 100 mmol/L (98-107); Glucose 129 mg/dl (70-99); Potassium 3.7 mmol/L (3.5-5.1); Sodium 132 mmol/L (135-145); Total Bilirubin 2.4 mg/dl (0.2-1.3); Total Protein 4.9 g/dl (6.3-8.2); eGFR 39.64
[2024-08-15 11:14] LABS: Body Fluid Mononuclear 87.2 %; Body Fluid Polymorphonuclear 12.8 %; Body Fluid WBC 47 /CUMM
[2024-08-15 11:17] LABS: Body Fluid Second Tech EM
== END ==
LOC: RADI 08:40
PROVIDERS: ATTENDING PHYSICIAN Nurse Practitioner Adult Health
DX: R18.8 Other ascites (principal)
CPT/HCPCS: 49083; 36415; 80053; 85610; 85730; 87015; 87070; 87205; 89051

== ENCOUNTER 2024-08-17 20:18 | Inpatient (IN) | payer BC, SELFPAY ==
[2024-08-17] VITALS (12 sets, daily range): BP systolic 115–133; BP diastolic 42–97; PULSE 90–103; BMI 27.2; BMI 25.1
--- NOTE | 2024-08-17 14:53 | ED.GENMED ---
ED Provider Triage
<Rene Mooney PA-C - Last Filed: 08/17/24 14:57>
-
Patient seen by provider in Triage?: Seen in Triage
Attestation: A medical screening examination has been initiated by a qualified medical provider. Based on the assessment performed at this time, it has been determined that an emergent medical condition may exist and the patient has been informed
that further medical evaluation and possible additional diagnostic testing may be needed.
HPI: 59-year-old male with past medical history of decompensated liver failure and chronic kidney disease presenting to the emergency department at request of outpatient infusion center after patient was found to have a hemoglobin of 6.9 and
worsening renal function.
Patient noting abdominal discomfort and slightly decreased p.o. intake. No other concerns. Multiple recent visits here. Labs ordered.
GENERAL: Alert , chronically ill-appearing
EYE: No visual abnormalities.
NECK: Trachea midline
ENT: No visible abnormalities.
LUNGS: No acute respiratory distress
NEUROLOGICAL: Alert and oriented
SKIN: Skin intact. No visible changes.
MUSCULOSKELETAL: Moving extremities normally
PSYCH: Normal and appropriate interaction.
This is a medical evaluation conducted in person to initiate diagnostic evaluation and provide initial therapeutics. Please see further documentation by the treating clinician.
History of Present Illness
<Rene Mooney PA-C - Last Filed: 08/17/24 14:57>
General
Chief Complaint: Abnormal Lab Value
Time Seen by Provider: 08/17/24 17:15
<Inge Cortez PA-C - Last Filed: 08/17/24 23:53>
History of Present Illness
History of Present Illness:
59 y/o M with h/o decompensated liver failure, ascites requiring weekly para, copd, GI bleed, hyponatremia
here becuase of abnormal labs
sent in by GI for admission
hg down to 6.9 on outpatient labs, with soidu 128 and worsening TYSON from 2 weeks ago
pt is on fluid restriction
he las janie para 4 days ago which was neg for SBP
he had a fall after that and has facial contusion/injuries but was discharged, no head bleed
pt has had fatigue but today also had some abdomianl pain at the umbilical region
his stool is always black due to iron infsions, wich he last received 4 days ago as well
he doesn't believe he has any bleeding
no vomiting blood
pt is awaiting consutlation at [place] for his cirrhosis
Past History
<Rene Mooney PA-C - Last Filed: 08/17/24 14:57>
Past History
ED Past Medical History: COPD, CVA, HTN, Psychiatric and Other
ED Past Surgical History: Other
Social History
Tobacco: Smoker
Alcohol: Former
Drug: None
Personal:
Living: with family
Employment: Employed
Family History
Family History: Diabetes and Other
Review of Systems
<Inge Cortez PA-C - Last Filed: 08/17/24 23:53>
Review of Systems
Allergies reviewed?: Yes
All Other Systems: Not applicable
Phy Exam
<Inge Cortez PA-C - Last Filed: 08/17/24 23:53>
Physical Exam
Physical Exam:
GENERAL: Alert; bruising b/l face/nose
HEAD: NCAT
EYE: pupils equal and reactive, no nystagmus, no photophobia
NECK: Supple,full rom, nontender
ENT: o/p clr, mmm.
CARDIAC: Regular rate and rhythm . no edema
LUNGS: Clear breath sounds bilaterally, no acute respiratory distress, no wheezes/rales/rhonchi
ABDOMEN: soft, distended, ascites; no erythema
esasily reducible tender umbilical hrenia; small defect
no diffuse abdominal tenderness
STOOL DARK: TRAC EHEME POS
NEUROLOGICAL: Alert and orientedx 4, cn intact, no facial asymmetry, 5/5 strength in UE/LE, sensation intact, romberg neg, ambulates without assistance, neg pronator drift
SKIN: Warm and dry, skin intact.
bruising face
MUSCULOSKELETAL: No edema, well perfused.
PSYCH: Normal and appropriate interaction.
Course
<Rene Mooney PA-C - Last Filed: 08/17/24 14:57>
Orders/Labs/Results
Orders:
Orders
08/17/24 Dinner
NPO
Allow oral meds: Yes
Allow clear liquids: Sips of Clears
NPO with Ice Chips: Yes
08/17/24 15:05
Type+Screen Urgent
Complete Blood Count/With Diff Urgent
Comprehensive Metabolic Panel Urgent
PTT Urgent
Prothrombin Time Urgent
08/17/24 17:40
* Blood Bank Products Urgent
Blood Bank Products: *Packed RBC Leuko(PRBC's)
Quantity: 1
Transfuse Today: Yes
Reason: Anemia
08/17/24 19:00
Urinalysis Reflex To Culture Urgent
Date Specimen was Collected: 08/17/24
Time Specimen was Collected: 17:33
Urine Microscopic Reflex Cult Urgent
Urine Culture Urgent
LOVE Source: U
Specimen Description:
Date Specimen was Collected: 08/17/24
Time Specimen was Collected: 17:33
08/17/24 19:55
Trazodone [Desyrel] 25 mg PO HSPRN PRN
08/17/24 19:57
Admit/Transfer Patient As Directed
Co-Sign Provider:
Level of Care: Inpatient admission
Assign to:: Medical/Surgical
Physician / Group: hospitalist
Diagnosis: GI bleed
Reason for Hospitalization: GI bleed
Expected length of stay greater than two midnights?: Yes
ELOS- Estimated Length of Stay in days: 2
I certify the patient meets the requirements for IP care: Yes
Code Status As Directed
Resuscitation Status: Full Code
PRN Pain Medication Management As Directed
May give lesser potent ordered pain med per pt: Yes
preference::
Protocol:: Medication orders for pain may be administered in a
manner that supports deferring to patient preference
when the pt is:
- Requesting an ordered lesser potent pain medication.
Least to most potent pain medications are defined
as: acetaminophen < NSAID < tramadol < opioids
(morphine, oxycodone, hydromorphone).
- Requesting a lesser dose of the same medication IF
ORDERED.
- Requesting a less intrusive route of administration
if both routes are prescribed by the provider (PO <
IV).
08/17/24 20:00
Rifaximin [Xifaxan] 550 mg PO BID
08/17/24 20:30
Budesonide/Formoterol 160/4.5 [Symbicort 160/4.5 Mcg Inhaler] 2 puff INH R BID
08/17/24 21:29
H&H Q8H
Pantoprazole 80 mg/100 ml Nss [Protonix] 80 mg in 100 ml IV Q10H
Pantoprazole [Protonix IV] 80 mg IV NOW STA
08/17/24 21:29
GASTROINTESTINAL CONSULT Routine
Consulting Provider: Norris Smith
Was physician already notified: Yes
Reason for consult: GI bleed
NEPHROLOGY CONSULT Routine
Consulting Provider: Sheldon Jennings
Was physician already notified: Yes
Reason for consult: TYSON, decompensated cirrhosis, gi bleed
Urinalysis Routine
Urine Creatinine Routine
Urine Osmolality Random [Osmolality, Random Urine] Routine
Urine Sodium Routine
Activity As Directed
Activity Level: With Assistance
INT (Intravenous Needle Therapy) As Directed
Comment: Place 2 IV catheters of the largest bore possible until stable
Orthostatic Vital Signs As Directed
Orthostatic VS Frequency: Now
Comment: then every four hours for twenty-four hours
Pneumatic Compression Sleeves As Directed
Type: Knee high
Vital Signs As Directed
Frequency: Per unit guidelines
DX Deep Vein Thrombosis Video Routine
08/17/24 22:00
Albumin Human 25% 100 ml [Flexbumin] 25 grams in 100 ml IV Q8H
CefTRIAXone [Rocephin] 1,000 mg IV Q24H
Lactulose [Duphalac/Chronulac] 20 grams PO TID
08/18/24 06:00
Basic Metabolic Panel IN AM
PTT IN AM
08/18/24 08:00
Thiamine HCl [Vitamin B1] 100 mg PO DAILY
Abnormal Lab Results
08/17/24 08/17/24
15:05 19:00
WBC 11.1 H 10^3/uL
(4.8-10.8)
RBC 2.25 L 10^6/uL
(4.70-6.10)
Hgb 6.7 L* g/dL
(13.0-18.0)
Hct 20.1 L* %
(39.0-52.0)
RDW 15.6 H %
(11.5-14.5)
Plt Count 96 L 10^3/uL
(130-400)
Abs Immat Gran (auto) 0.1 H 10^3/uL
(0-0.05)
Absolute Neuts (auto) 8.7 H 10^3/uL
(1.4-6.5)
Absolute Monos (auto) 0.8 H 10^3/uL
(0.1-0.6)
Neutrophils % 78.4 H %
(42.2-75.2)
Lymphocytes % 10.9 L %
(20.5-51.1)
PT 18.3 H Sec
(11.4-14.6)
APTT 48.5 H Sec
(23.4-35.0)
Sodium 128 L mmol/L
(135-145)
Chloride 97 L mmol/L
(98-107)
Carbon Dioxide 21 L mmol/L
(22-30)
BUN 65 H mg/dl
(9-20)
Creatinine 1.8 H mg/dL
(0.7-1.3)
Glucose 159 H mg/dl
(70-99)
Calcium 7.8 L mg/dl
(8.4-10.2)
Total Bilirubin 2.5 H mg/dl
(0.2-1.3)
Total Protein 4.8 L g/dl
(6.3-8.2)
Albumin 2.9 L g/dl
(3.5-5.0)
Ur Occult Blood Reflex Trace A
(Negative)
Leukocyte Esterase Rfl 1+ A
(Negative)
Urine RBC 3-6 A /HPF
(0-2)
Urine WBC (Reflex) 26-30 A /HPF
(0-5)
Urine Bacteria (Reflex) Few A
(Negative)
Crossmatch IS Only See Detail
MTS Gel Crossmatch See Detail
08/17/24 15:05
08/17/24 15:05
Vital Signs
Initial and Last Documented VS:
Initial Vital Signs
Temp Pulse Resp BP Pulse Ox
97.9 F 92 18 115/42 98
08/17/24 14:59 08/17/24 14:59 08/17/24 14:59 08/17/24 14:59 08/17/24 14:59
Last Documented Vital Signs
Temp Pulse Resp BP Pulse Ox
98.4 F 88 18 126/57 99
08/17/24 21:38 08/17/24 21:38 08/17/24 21:38 08/17/24 21:38 08/17/24 21:38
<Inge Cortez PA-C - Last Filed: 08/17/24 23:53>
Orders/Labs/Results
Orders:
Orders
08/17/24 Dinner
NPO
Allow oral meds: Yes
Allow clear liquids: Sips of Clears
NPO with Ice Chips: Yes
08/17/24 15:05
Type+Screen Urgent
Complete Blood Count/With Diff Urgent
Comprehensive Metabolic Panel Urgent
PTT Urgent
Prothrombin Time Urgent
08/17/24 17:40
* Blood Bank Products Urgent
Blood Bank Products: *Packed RBC Leuko(PRBC's)
Quantity: 1
Transfuse Today: Yes
Reason: Anemia
08/17/24 19:00
Urinalysis Reflex To Culture Urgent
Date Specimen was Collected: 08/17/24
Time Specimen was Collected: 17:33
Urine Microscopic Reflex Cult Urgent
Urine Culture Urgent
LOVE Source: U
Specimen Description:
Date Specimen was Collected: 08/17/24
Time Specimen was Collected: 17:33
08/17/24 19:55
Trazodone [Desyrel] 25 mg PO HSPRN PRN
08/17/24 19:57
Admit/Transfer Patient As Directed
Co-Sign Provider:
Level of Care: Inpatient admission
Assign to:: Medical/Surgical
Physician / Group: hospitalist
Diagnosis: GI bleed
Reason for Hospitalization: GI bleed
Expected length of stay greater than two midnights?: Yes
ELOS- Estimated Length of Stay in days: 2
I certify the patient meets the requirements for IP care: Yes
Code Status As Directed
Resuscitation Status: Full Code
PRN Pain Medication Management As Directed
May give lesser potent ordered pain med per pt: Yes
preference::
Protocol:: Medication orders for pain may be administered in a
manner that supports deferring to patient preference
when the pt is:
- Requesting an ordered lesser potent pain medication.
Least to most potent pain medications are defined
as: acetaminophen < NSAID < tramadol < opioids
(morphine, oxycodone, hydromorphone).
- Requesting a lesser dose of the same medication IF
ORDERED.
- Requesting a less intrusive route of administration
if both routes are prescribed by the provider (PO <
IV).
08/17/24 20:00
Rifaximin [Xifaxan] 550 mg PO BID
08/17/24 20:30
Budesonide/Formoterol 160/4.5 [Symbicort 160/4.5 Mcg Inhaler] 2 puff INH R BID
08/17/24 21:29
H&H Q8H
Pantoprazole 80 mg/100 ml Nss [Protonix] 80 mg in 100 ml IV Q10H
Pantoprazole [Protonix IV] 80 mg IV NOW STA
08/17/24 21:29
GASTROINTESTINAL CONSULT Routine
Consulting Provider: Norris Smith
Was physician already notified: Yes
Reason for consult: GI bleed
NEPHROLOGY CONSULT Routine
Consulting Provider: Sheldon Jennings
Was physician already notified: Yes
Reason for consult: TYSON, decompensated cirrhosis, gi bleed
Urinalysis Routine
Urine Creatinine Routine
Urine Osmolality Random [Osmolality, Random Urine] Routine
Urine Sodium Routine
Activity As Directed
Activity Level: With Assistance
INT (Intravenous Needle Therapy) As Directed
Comment: Place 2 IV catheters of the largest bore possible until stable
Orthostatic Vital Signs As Directed
Orthostatic VS Frequency: Now
Comment: then every four hours for twenty-four hours
Pneumatic Compression Sleeves As Directed
Type: Knee high
Vital Signs As Directed
Frequency: Per unit guidelines
DX Deep Vein Thrombosis Video Routine
08/17/24 22:00
Albumin Human 25% 100 ml [Flexbumin] 25 grams in 100 ml IV Q8H
CefTRIAXone [Rocephin] 1,000 mg IV Q24H
Lactulose [Duphalac/Chronulac] 20 grams PO TID
08/18/24 06:00
Basic Metabolic Panel IN AM
PTT IN AM
08/18/24 08:00
Thiamine HCl [Vitamin B1] 100 mg PO DAILY
Abnormal Lab Results
08/17/24 08/17/24
15:05 19:00
WBC 11.1 H 10^3/uL
(4.8-10.8)
RBC 2.25 L 10^6/uL
(4.70-6.10)
Hgb 6.7 L* g/dL
(13.0-18.0)
Hct 20.1 L* %
(39.0-52.0)
RDW 15.6 H %
(11.5-14.5)
Plt Count 96 L 10^3/uL
(130-400)
Abs Immat Gran (auto) 0.1 H 10^3/uL
(0-0.05)
Absolute Neuts (auto) 8.7 H 10^3/uL
(1.4-6.5)
Absolute Monos (auto) 0.8 H 10^3/uL
(0.1-0.6)
Neutrophils % 78.4 H %
(42.2-75.2)
Lymphocytes % 10.9 L %
(20.5-51.1)
PT 18.3 H Sec
(11.4-14.6)
APTT 48.5 H Sec
(23.4-35.0)
Sodium 128 L mmol/L
(135-145)
Chloride 97 L mmol/L
(98-107)
Carbon Dioxide 21 L mmol/L
(22-30)
BUN 65 H mg/dl
(9-20)
Creatinine 1.8 H mg/dL
(0.7-1.3)
Glucose 159 H mg/dl
(70-99)
Calcium 7.8 L mg/dl
(8.4-10.2)
Total Bilirubin 2.5 H mg/dl
(0.2-1.3)
Total Protein 4.8 L g/dl
(6.3-8.2)
Albumin 2.9 L g/dl
(3.5-5.0)
Ur Occult Blood Reflex Trace A
(Negative)
Leukocyte Esterase Rfl 1+ A
(Negative)
Urine RBC 3-6 A /HPF
(0-2)
Urine WBC (Reflex) 26-30 A /HPF
(0-5)
Urine Bacteria (Reflex) Few A
(Negative)
Crossmatch IS Only See Detail
MTS Gel Crossmatch See Detail
08/17/24 15:05
08/17/24 15:05
Vital Signs
Initial and Last Documented VS:
Initial Vital Signs
Temp Pulse Resp BP Pulse Ox
97.9 F 92 18 115/42 98
08/17/24 14:59 08/17/24 14:59 08/17/24 14:59 08/17/24 14:59 08/17/24 14:59
Last Documented Vital Signs
Temp Pulse Resp BP Pulse Ox
98.4 F 88 18 126/57 99
08/17/24 21:38 08/17/24 21:38 08/17/24 21:38 08/17/24 21:38 08/17/24 21:38
<Parish Lozano MD - Last Filed: 08/17/24 18:28>
Orders/Labs/Results
Orders:
Orders
08/17/24 Dinner
NPO
Allow oral meds: Yes
Allow clear liquids: Sips of Clears
NPO with Ice Chips: Yes
08/17/24 15:05
Type+Screen Urgent
Complete Blood Count/With Diff Urgent
Comprehensive Metabolic Panel Urgent
PTT Urgent
Prothrombin Time Urgent
08/17/24 17:40
* Blood Bank Products Urgent
Blood Bank Products: *Packed RBC Leuko(PRBC's)
Quantity: 1
Transfuse Today: Yes
Reason: Anemia
08/17/24 19:00
Urinalysis Reflex To Culture Urgent
Date Specimen was Collected: 08/17/24
Time Specimen was Collected: 17:33
Urine Microscopic Reflex Cult Urgent
Urine Culture Urgent
LOVE Source: U
Specimen Description:
Date Specimen was Collected: 08/17/24
Time Specimen was Collected: 17:33
08/17/24 19:55
Trazodone [Desyrel] 25 mg PO HSPRN PRN
08/17/24 19:57
Admit/Transfer Patient As Directed
Co-Sign Provider:
Level of Care: Inpatient admission
Assign to:: Medical/Surgical
Physician / Group: hospitalist
Diagnosis: GI bleed
Reason for Hospitalization: GI bleed
Expected length of stay greater than two midnights?: Yes
ELOS- Estimated Length of Stay in days: 2
I certify the patient meets the requirements for IP care: Yes
Code Status As Directed
Resuscitation Status: Full Code
PRN Pain Medication Management As Directed
May give lesser potent ordered pain med per pt: Yes
preference::
Protocol:: Medication orders for pain may be administered in a
manner that supports deferring to patient preference
when the pt is:
- Requesting an ordered lesser potent pain medication.
Least to most potent pain medications are defined
as: acetaminophen < NSAID < tramadol < opioids
(morphine, oxycodone, hydromorphone).
- Requesting a lesser dose of the same medication IF
ORDERED.
- Requesting a less intrusive route of administration
if both routes are prescribed by the provider (PO <
IV).
08/17/24 20:00
Rifaximin [Xifaxan] 550 mg PO BID
08/17/24 20:30
Budesonide/Formoterol 160/4.5 [Symbicort 160/4.5 Mcg Inhaler] 2 puff INH R BID
08/17/24 21:29
H&H Q8H
Pantoprazole 80 mg/100 ml Nss [Protonix] 80 mg in 100 ml IV Q10H
Pantoprazole [Protonix IV] 80 mg IV NOW STA
08/17/24 21:29
GASTROINTESTINAL CONSULT Routine
Consulting Provider: Norris Smith
Was physician already notified: Yes
Reason for consult: GI bleed
NEPHROLOGY CONSULT Routine
Consulting Provider: Sheldon Jennings
Was physician already notified: Yes
Reason for consult: TYSON, decompensated cirrhosis, gi bleed
Urinalysis Routine
Urine Creatinine Routine
Urine Osmolality Random [Osmolality, Random Urine] Routine
Urine Sodium Routine
Activity As Directed
Activity Level: With Assistance
INT (Intravenous Needle Therapy) As Directed
Comment: Place 2 IV catheters of the largest bore possible until stable
Orthostatic Vital Signs As Directed
Orthostatic VS Frequency: Now
Comment: then every four hours for twenty-four hours
Pneumatic Compression Sleeves As Directed
Type: Knee high
Vital Signs As Directed
Frequency: Per unit guidelines
DX Deep Vein Thrombosis Video Routine
08/17/24 22:00
Albumin Human 25% 100 ml [Flexbumin] 25 grams in 100 ml IV Q8H
CefTRIAXone [Rocephin] 1,000 mg IV Q24H
Lactulose [Duphalac/Chronulac] 20 grams PO TID
08/18/24 06:00
Basic Metabolic Panel IN AM
PTT IN AM
08/18/24 08:00
Thiamine HCl [Vitamin B1] 100 mg PO DAILY
Abnormal Lab Results
08/17/24 08/17/24
15:05 19:00
WBC 11.1 H 10^3/uL
(4.8-10.8)
RBC 2.25 L 10^6/uL
(4.70-6.10)
Hgb 6.7 L* g/dL
(13.0-18.0)
Hct 20.1 L* %
(39.0-52.0)
RDW 15.6 H %
(11.5-14.5)
Plt Count 96 L 10^3/uL
(130-400)
Abs Immat Gran (auto) 0.1 H 10^3/uL
(0-0.05)
Absolute Neuts (auto) 8.7 H 10^3/uL
(1.4-6.5)
Absolute Monos (auto) 0.8 H 10^3/uL
(0.1-0.6)
Neutrophils % 78.4 H %
(42.2-75.2)
Lymphocytes % 10.9 L %
(20.5-51.1)
PT 18.3 H Sec
(11.4-14.6)
APTT 48.5 H Sec
(23.4-35.0)
Sodium 128 L mmol/L
(135-145)
Chloride 97 L mmol/L
(98-107)
Carbon Dioxide 21 L mmol/L
(22-30)
BUN 65 H mg/dl
(9-20)
Creatinine 1.8 H mg/dL
(0.7-1.3)
Glucose 159 H mg/dl
(70-99)
Calcium 7.8 L mg/dl
(8.4-10.2)
Total Bilirubin 2.5 H mg/dl
(0.2-1.3)
Total Protein 4.8 L g/dl
(6.3-8.2)
Albumin 2.9 L g/dl
(3.5-5.0)
Ur Occult Blood Reflex Trace A
(Negative)
Leukocyte Esterase Rfl 1+ A
(Negative)
Urine RBC 3-6 A /HPF
(0-2)
Urine WBC (Reflex) 26-30 A /HPF
(0-5)
Urine Bacteria (Reflex) Few A
(Negative)
Crossmatch IS Only See Detail
MTS Gel Crossmatch See Detail
08/17/24 15:05
08/17/24 15:05
Vital Signs
Initial and Last Documented VS:
Initial Vital Signs
Temp Pulse Resp BP Pulse Ox
97.9 F 92 18 115/42 98
08/17/24 14:59 08/17/24 14:59 08/17/24 14:59 08/17/24 14:59 08/17/24 14:59
Last Documented Vital Signs
Temp Pulse Resp BP Pulse Ox
98.4 F 88 18 126/57 99
08/17/24 21:38 08/17/24 21:38 08/17/24 21:38 08/17/24 21:38 08/17/24 21:38
<Inge Cortez PA-C - Last Filed: 08/17/24 23:53>
MDM/Problems Addressed
Differential Diagnosis Includes:
anemia, cirrhosis, hernia,hyponatremia;
MDM/Problems Addressed:
brittany jenkins 59 y/o M sent in byGI for admissino;
decompensated liver failure, recurrent ascites, weekly para (last 08/15 with neg culture), more recently TYSON and hyponatremia on fluid restriction
hg worse to 6.7 today down from 8s
also with black stool but gets iron infusion
c/o mid abd pain where he has an umbilical hernia
stable vitals
abd distended, soft, tender with palpation to the reducible umbilical hernia; not tense
wbc 11.1
sodium 127
cr 1.8 from 1.0 ( on 08/07)
worsening meld score;
GI dr. fonseca wanted a unit of blood and admit, trend electrolytes
<Inge Cortez PA-C - Last Filed: 08/17/24 23:53>
*Critical Care Note
Total Time (30-74mins, 75-104mins- exclusive of procedures): Not Applicable
ED Attending Note
<Rene Mooney PA-C - Last Filed: 08/17/24 14:57>
-
Portions of this chart may have been created with voice recognition software.� Occasional wrong word or��sound alike� substitutions may have occurred due to the inherent limitations of voice recognition software.
<Parish Lozano MD - Last Filed: 08/17/24 18:28>
ED Attending Note
Patient seen and examined by attending physician: Yes
I performed the substantive portion of visit, reviewed & personally made and approve the management plan that is documented in note by myself or GUANAKITO.: Yes
ED Attending Note:
Patient denies acute abdominal pain fever chills or other complaints. Recent Mohs surgery where he fell and hit his nose. Frequent paracentesis for liver issues. Presents primarily for low hemoglobin.
On exam patient is chronically ill-appearing. His bandage across his nose with ecchymosis to his nose and under both eyes. He is in no respiratory distress. Regular rate and rhythm. Abdomen significantly distended with ascites however nontender.
Small periumbilical hernia with no obvious bowel loops and easily reducible with minimal tenderness. No rebound or guarding no mass or hernia
Impression is severe anemia in a gentleman with liver failure. Do not feel clinically he has spontaneous bacterial peritonitis. Will receive transfusion and be admitted for further care. Stool tested positive.
Discharge Plan
Departure
Patient Disposition: Admit
Date of Disposition: 08/17/24
Time of Disposition: 17:45
Admit to: Med/Surg
Presentation/result/management discussed w/ accepting MD/DO: Hospitalist
Condition: Fair
Covid-19: Not Applicable
Discharge Problem:
Anemia, TYSON (acute kidney injury), Hyponatremia
Interventions
Interventions:
*Risk Screen - Suicide Last Done: 08/17/24 22:00
*General Assessment Last Done: 08/17/24 14:59
*Neglect/Abuse Screening Last Done: 08/17/24 14:59
ED- Fall Risk Assessment Last Done: 08/17/24 21:32
*ED COVID-19 Vaccine History Last Done: 08/17/24 22:00
*Nursing Disposition Last Done: 08/17/24 21:32
Discharge Date and Time
Discharge Date/Time: 08/17/24 21:34
[2024-08-17 15:29] LABS: INR 1.54; PT 18.3 Sec (11.4-14.6)
[2024-08-17 15:30] LABS: APTT 48.5 Sec (23.4-35.0)
[2024-08-17 15:40] LABS: ALT (SGPT) 23 U/L (0-50); AST (SGOT) 40 U/L (17-59); Albumin 2.9 g/dl (3.5-5.0); Alkaline Phosphatase 78 U/L (38-126); Blood Urea Nitrogen 65 mg/dl (9-20); Calcium 7.8 mg/dl (8.4-10.2); Carbon Dioxide 21 mmol/L (22-30); Chloride 97 mmol/L (98-107); Glucose 159 mg/dl (70-99); Potassium 3.7 mmol/L (3.5-5.1); Sodium 128 mmol/L (135-145); Total Bilirubin 2.5 mg/dl (0.2-1.3); Total Protein 4.8 g/dl (6.3-8.2)
[2024-08-17 15:41] LABS: % Basophils 0.3 % (0-2); % Eosinophils 2.4 % (0-6); % Immature Granulocytes 0.5 % (0-0.5); % Lymphocytes 10.9 % (20.5-51.1); % Monocytes 7.5 % (1.7-9.3); % Neutrophils 78.4 % (42.2-75.2); Absolute Eosinophils 0.3 10^3/uL (0-0.7); Absolute Immature Granulocytes 0.1 10^3/uL (0-0.05); Absolute Lymphocytes 1.2 10^3/uL (1.2-3.4); Absolute Monocytes 0.8 10^3/uL (0.1-0.6); Absolute Neutrophils 8.7 10^3/uL (1.4-6.5); Hematocrit 20.1 % (39.0-52.0); Hemoglobin 6.7 g/dL (13.0-18.0); Mean Corp Hgb Conc. 33.3 g/dL (33.0-37.0); Mean Corpuscular Hgb 29.8 pg (27.0-31.0); Mean Corpuscular Volume 89.3 fL (80.0-94.0); Mean Platelet Volume 10.4 fL (7.4-10.4); Nucleated Red Blood Cells % 0 % (-); Platelet Count 96 10^3/uL (130-400); Red Blood Cell Count 2.25 10^6/uL (4.70-6.10); Red Cell Dist. Width 15.6 % (11.5-14.5); White Blood Cell Count 11.1 10^3/uL (4.8-10.8)
[2024-08-17 19:14] LABS: Urine Albumin Negative (Neg - Trace); Urine Bilirubin Negative (Negative); Urine Character Clear (Clear); Urine Color Yellow; Urine Glucose Negative (Negative); Urine Ketone Negative (Negative); Urine Leukocyte 1+ (Negative); Urine Nitrite Negative (Negative); Urine Occult Blood Trace (Negative); Urine Urobilinogen Negative (Neg - 1+)
[2024-08-17 19:23] LABS: Urine White Cell 26-30 /HPF (0-5)
[2024-08-17 19:24] LABS: Urine Bacteria Few (Negative)
--- NOTE | 2024-08-17 19:41 | HPS.HSE ---
Family Physician
-
Family Physician: Drake Goss
Chief Complaint
-
Decompensated liver cirrhosis, melena, worsening anemia
History of Present Illness
This is a 59-year-old with alcoholic cirrhosis complicated by recurrent ascites requiring paracentesis weekly, hepatic encephalopathy, chronic anemia with recurrent occult GI bleed who presents to the emergency department with worsening labs from
the liver clinic.
Patient self-reported that he had a paracentesis done on 08/15. Then 2 days ago he started having black-colored stools. With his lactulose the stool both on brownish and then turn black again. He had black stools while he was in the emergency
department. He was previously on oral iron supplementation but this was discontinued 2 days ago. He is currently on IV iron and has received 3 doses in the last 3 weeks. Patient had a Mohs procedure done he couple days ago and is having dressing
changes over the nasal bridge for that. He also had a fall following the procedure due to being lightheaded.
Patient denies fevers or chills. He does report abdominal pain at the site of his paracentesis but not otherwise. He denies guarding or rebound. Patient reported that is spironolactone and Lasix was discontinued 2 days ago due to rising
creatinine.
Denies any history of varices he had a EGD done 4 weeks ago which was negative for esophageal varices.
Patient denies other medication changes.
In the Emergency Department his blood pressure was 120 123/63 pulse was 91 and temperature was 97.9. He has a white count of 11 hemoglobin of 6.7 and a platelet count of 96. INR was 1.5. Sodium was 128, BUN is 65 and creatinine is 1.8 which is up
from 1.0. LFTs are unchanged and within normal limits. His total bilirubin was unchanged from prior. Albumin was 2.9.
Medical History
Past Medical History
Past Medical History: Reports Other
Additional Past Medical History:
Liver cirrhosis decompensated by her recurrent ascites requiring large-volume paracentesis
Iron deficiency anemia
GI bleeding
Past Surgical History: Reports Other (MOHs)
Social History
Tobacco: Non-smoker
Alcohol: Former
Drug: None
Personal:
Living: With Family
Family History
Family History: Not pertinent
Allergies / Home Medications
Allergies reflects when Allergies were last updated in [employer].
Home Medications with original date entered in [employer]
Allergy/Medication List:
Allergies
Allergy/AdvReac Type Severity Reaction Status Date / Time
No Known Allergies Allergy Verified 08/17/24 15:02
Home Medications
furosemide 40 mg tablet (Lasix) 40 mg PO DAILY Fluid Retention/Swelling 03/13/24
thiamine HCl (vitamin B1) 100 mg tablet 100 mg PO DAILY Supplement 03/13/24
budesonide 160 mcg-glycopyr 9 mcg-formot 4.8 mcg/actuation HFA inhaler (Breztri Aerosphere) 2 inh inhalation R BID Lung/Breathing Issues 04/11/24
spironolactone 50 mg tablet 50 mg PO DAILY Liver Issues 04/17/24
magnesium oxide 400 mg PO BID Supplement 06/28/24
rifaximin 550 mg tablet (Xifaxan) 550 mg PO BID hepatic encephalopathy 06/28/24
lactulose 20 gram/30 mL oral solution 20 g (30 mL) PO TID Liver issues #2,880 mL 07/01/24
lidocaine 4 % topical patch 1 patch topical DAILY 30 days #30 ea 07/22/24
miconazole nitrate 2 % topical powder (Miconazorb AF) 1 applic topical BID 7 days #85 grams 07/22/24
pantoprazole 40 mg tablet,delayed release (Protonix) 40 mg PO BID Gastrointestinal Issue 08/02/24
ferrous sulfate 325 mg (65 mg iron) tablet (FeroSul) 325 mg PO DAILY 30 days #30 tabs 08/07/24
tramadol 50 mg tablet 50 mg PO BID PRN Pain #0 tabs 08/07/24
trazodone 50 mg tablet 25 mg (1/2 x 50 mg) PO HS PRN Anxiety/insomnia #30 tabs 08/07/24
cephalexin 500 mg capsule 500 mg PO BID 08/17/24
Review of Systems
-
Constitutional: Reports No Symptoms
EENT: Reports No Symptoms
Respiratory: Reports No Symptoms
Cardiac: Reports No Symptoms
Abdomen/GI: Reports Abdominal Pain and Black Stools
: Reports No Symptoms
Musculoskeletal: Reports No Symptoms
Skin: Reports No Symptoms
Neurological: Reports No Symptoms
Endocrine: Reports No Symptoms
Hematologic/Lymphatic: Reports No Symptoms
Psych: Reports No Symptoms
Physical Exam
Vital Signs
Vital Signs
Temp Pulse Resp BP Pulse Ox
97.9 F 91 17 123/63 98
08/17/24 14:59 08/17/24 19:01 08/17/24 19:01 08/17/24 18:00 08/17/24 19:01
Physical Exam
General: Appears Chronically Ill
HEENT: PERRLA, [place] Conjunctivae and Other (Bilateral maxillary ecchymosis,)
Respiratory: Clear
Cardiac: S1/S2 and Regular Rhythm
Breast: Deferred by me
GI: Soft, Non Tender and Non Distended
Rectal: Black and Hem Positive
Genito-urinary: Deferred by me
Musculoskeletal: No Clubbing, No Cyanosis and No Edema
Skin: Warm
Neuro: AO x 3
Hematologic/Lymphatic: No Lymphadenopathy
Psych: Calm
Laboratory Results
-
08/17/24 15:05
08/17/24 15:05
Laboratory Results
PT 18.3 Sec (11.4-14.6) H 08/17/24 15:05
INR 1.54 08/17/24 15:05
APTT 48.5 Sec (23.4-35.0) H 08/17/24 15:05
Total Bilirubin 2.5 mg/dl (0.2-1.3) H 08/17/24 15:05
AST 40 U/L (17-59) 08/17/24 15:05
ALT 23 U/L (0-50) 08/17/24 15:05
Alkaline Phosphatase 78 U/L (38-126) 08/17/24 15:05
Data Reviewed
-
Ultrasound: Report Reviewed by me
Lab Data: Labs Reviewed by me
Old Records: Reviewed
Impression/Plan
-
IMPRESSION:
PLAN:
1. Melena/Anemia -patient with recurrent melena and anemia with a hemoglobin down to 6.7 from 7.7 in early August. Was recently admitted with GI bleed status post scoping that that was negative for source of bleeding. Patient did not have varices
on his prior EGD about 4 weeks ago. He denies abdominal pain any nausea or vomiting. Denies fevers or chills. Has been told that he has a BV stomach. No history of peptic ulcer disease and he is not on any antiplatelets. INR is 1.5. It count
is 96. Cannot rule out upper GI bleed at this time although patient has been recently on iron supplementation orally as well as IV. Hemodynamically stable.
- admit to med surg
- type and screen, transfuse for Hgb > 7 to 8
- prophylactic ceftriaxone for GI bleed, no h/o varices and HD stable
- NPO for now, IV D5NS
- PPI IV gtt for now
- H/H q8, GI consultation
2. Anemia
- as above, transfusion for now, on iron infusion at home
3. TYSON - Possible due to decompensation of his cirrhosis and HRS-2. Last LVP 6 L and gets these weekly
- holding lasix/spironolactone
- obtain u/a, FENA
- tranfusion
-IV albumin 1g/kg x 2 days
- renal consultation
4. Hyponatremia - Suspect due to liver disease and TYSON
- holding diuretics
- volume expansion as above
- free water restriction
5. Recurrent Ascites - last tap was 08/15. No SBP. Currently non-tender. Non-tense ascites.
- RUQ u/s
- serial examination
- not currently tips candidate
6. Hepatic Encephalopathy - Normal mental status
- continue lactulose and Rifaxime
DVT PPX - SCDs
Code Status - Full
[2024-08-17] MEDS: SYMBICORT 160/4.5 MCG INHALER INH (22:24)
[2024-08-17] MEDS: PROTONIX IV 80 MG IV (22:40)
[2024-08-17] MEDS: NSS (PRESERVATIVE FREE) 20 ML IV (22:40)
[2024-08-17] MEDS: PROTONIX 100 IV (22:55)
[2024-08-17] MEDS: XIFAXAN 550 MG PO (23:12)
[2024-08-17] MEDS: DUPHALAC/CHRONULAC 20 GRAMS PO (23:12)
[2024-08-17] MEDS: FLEXBUMIN 100 IV (23:13)
[2024-08-17] MEDS: STERILE WATER FOR INJECTION 10 ML IV (23:13)
[2024-08-17] MEDS: ROCEPHIN 1000 MG IV (23:13)
[2024-08-17] MEDS: DESYREL 25 MG PO (23:48)
[2024-08-18] VITALS (13 sets, daily range): BP systolic 114–131; BP diastolic 52–61; PULSE 87–100; BMI 25.1
[2024-08-18] MEDS: D5/0.9% SODIUM CHLORIDE 1000 IV (00:39)
[2024-08-18 00:43] LABS: Urine Albumin Negative (Neg - Trace); Urine Bilirubin Negative (Negative); Urine Character Clear (Clear); Urine Color Yellow; Urine Glucose Negative (Negative); Urine Ketone Negative (Negative); Urine Leukocyte 1+ (Negative); Urine Nitrite Negative (Negative); Urine Occult Blood Negative (Negative); Urine Urobilinogen Negative (Neg - 1+)
[2024-08-18 00:49] LABS: Osmolality Urine 439 mOsm/kg (300-900)
[2024-08-18 00:51] LABS: Urine Squamous Cell 16-20 /LPF (Few)
[2024-08-18 00:52] LABS: Urine Bacteria Few (Negative); Urine Red Blood Cell None Seen /HPF (0-2); Urine White Cell 26-30 /HPF (0-5)
[2024-08-18 01:02] LABS: Urine Sodium < 5 mmol/L (30-90)
[2024-08-18 01:35] LABS: Hematocrit 18.6 % (39.0-52.0); Hemoglobin 6.6 g/dL (13.0-18.0)
[2024-08-18] MEDS: FLEXBUMIN 100 IV ×2 (07:38→13:23)
--- NOTE | 2024-08-18 07:43 | W.PN.HOSP.TC ---
Addendum entered and electronically signed by Brock Mariano MD 08/18/24 14:24:
Acute on chronic blood loss anemia unclear if this is related to epistaxis or if this is related to true GI bleed. However has not had dark tarry stools. Therefore at this time we will stop PPI drip start twice daily IV PPI. NPO. GI consult.
Follow H&H. Transfuse for hemoglobin greater than 7-8. Prophylactic Rocephin for GI bleed though no history of varices and hemodynamically stable.
TYSON possibly secondary to HRS versus acute blood loss anemia/prerenal etiology. Agree with IV albumin 1 g/kilogram x 2 days. Nephrology consulted. Avoid nephrotoxins hypotension. Hold Aldactone until creatinine has improved. Hold Lasix unless
if absolutely needed. Fluid restrict.
Decompensated cirrhosis with ascites with evidence of early findings of caput medusae and spider angiomas. Hold Aldactone and Lasix for now. GI consult. IR consult for paracentesis on Tuesday.
Original Note:
Today's Communication/Plan
-
Assessment / Plan
Assessment / Plan
Mr. Cortez Mazariegos is a 59yoM pmh cirrhosis, recurrent sbp, hepatic encephalopathy, htn, chronic anemia, hyponatremia was admitted 08/17 for worsening outpatient labs.
Melena
Anemia
- transfuse for Hb>7
- prophylactic ceftriaxone
- PPI BID
- follow cbc
- gi consulted
TYSON
- u/a: uti likely
- urine cx pending
- ivf, abx
- iv albumin 1g/kg x2days
- nephro consulted
- follow bmp
Facial trauma secondary to fall s/p Mohs procedure
- procedure 08/14
- no acute intracranial abnormalities, facial bone abnormalities on CT
- monitor for bleeding
- ent consulted
Hypotonic Hyponatremia, chronic
- Urine Osm 439, Urine Cr 137.3, Urine Na<5
- likely secondary to low effective arterial blood volume secondary to cirrhosis.
- volume expansion
- free water restriction
- hold diuretics
Recurrent ascites secondary to portal hypertension secondary to end stage liver disease
- last paracentesis 08/15. No SBP
- gets weekly paracentesis on Mondays
- not a tips candidate at this time
- RUQ u/s: Cirrhotic appearance of the liver with large volume ascites.
- abdomen CT: Cirrhotic appearing liver with large volume ascites, upper abdominal collateral vessels and splenomegaly. Right inguinal hernia and umbilical hernia containing ascites fluid. Unchanged 9 mm calculus in the proximal left ureter. No
hydronephrosis.
- will be evaluated 08/27 at [place] for possible liver transplant
Hepatic encephalopathy
- at baseline
- cont lactulose, rifaxime
HTN
- resume lasix, aldactone tw
DVT prophylaxis
- SCDs
Code status: FULL CODE
Diet: 2 gram sodium
Anticipated Discharge: > 48 hours
Subjective/Interval History
-
Date of Service: August 18, 2024
Mr. Cortez Mazariegos is a 59yoM pmh cirrhosis, recurrent sbp, hepatic encephalopathy, htn, chronic anemia, hyponatremia was admitted 08/17 for worsening outpatient labs. Received 2 unit pRBCs.
Scheduled for liver transplant evaluation 08/27 at [place].
Objective Data
-
Labs:
Laboratory Results
08/18/24 08/18/24
01:21 06:00
Hgb 6.6 L*
Hct 18.6 L*
APTT Pending
Sodium Pending
Potassium Pending
Chloride Pending
Carbon Dioxide Pending
BUN Pending
Creatinine Pending
Glucose Pending
Calcium Pending
Vital Signs:
Vital Signs
Temp Pulse Resp BP Pulse Ox
98.8 F 87 20 124/53 98
08/18/24 07:35 08/18/24 07:35 08/18/24 07:35 08/18/24 07:35 08/18/24 03:00
I&O
08/17/24 08/18/24 08/19/24
06:59 06:59 06:59
Intake Total 250 / 250 250 / 250
Output Total 450 / 450
Balance -200 / -200 250 / 250
Review of Systems
-
History Source: Patient
All other systems: Reviewed and negative
Constitutional: Reports No Symptoms
EENT: Reports Bloody Nose; Denies Blurry Vision, Eye Pain or Decreased Vision
Respiratory: Reports No Symptoms
Cardiac: Reports No Symptoms
Abdomen/GI: Reports Abdominal Pain and Bloody Stools; Denies Vomiting, Diarrhea or Constipated
Hematologic / Lymphatic: Reports Bleeding and Bruising
Physical Exam
-
General: Appears Chronically Ill
HEENT: Normocephalic and Other (orbital ecchymosis, nasal bridge ecchymosis. Covered Mohs procedure. Dried blood from nose. scleral icterus)
Respiratory: Clear to Auscultation and Non Labored Respirations
Cardiac: Regular Rhythm and S1/S2
GI: Soft, Nontender, Normal Bowel Sounds, Distended, Organomegaly and Other (caput medusae, spider angiomas)
Musculoskeletal: No Cyanosis and No Edema
Skin: Warm, Dry and Jaundice
Neuro: AO x 3
[2024-08-18] MEDS: SYMBICORT 160/4.5 MCG INHALER INH ×3 (08:18→20:20)
[2024-08-18] MEDS: SPIRIVA RESPIMAT 2.5 MCG INH ×2 (08:18→08:20)
--- NOTE | 2024-08-18 08:33 | CON.GI ---
Addendum entered and electronically signed by Brock Mariano MD 08/18/24 14:23:
Acute on chronic blood loss anemia unclear if this is related to epistaxis or if this is related to true GI bleed. However has not had dark tarry stools. Therefore at this time we will stop PPI drip start twice daily IV PPI. NPO. GI consult.
Follow H&H. Transfuse for hemoglobin greater than 7-8. Prophylactic Rocephin for GI bleed though no history of varices and hemodynamically stable.
TYSON possibly secondary to HRS versus acute blood loss anemia/prerenal etiology. Agree with IV albumin 1 g/kilogram x 2 days. Nephrology consulted. Avoid nephrotoxins hypotension. Hold Aldactone until creatinine has improved. Hold Lasix unless
if absolutely needed. Fluid restrict.
Decompensated cirrhosis with ascites with evidence of early findings of caput medusae and spider angiomas. Hold Aldactone and Lasix for now. GI consult. IR consult for paracentesis on Tuesday.
Addendum entered and electronically signed by Norris Smith MD 08/18/24 12:49:
I saw and examined the patient.
The PA's note was reviewed and I agree with the note.
Comment:
59 year old male with h/o decompensated HCV/alcohol cirrhosis s/p Epclusa and SVR, GI bleed, CVA, and chronic thrombocytopenia who p/w melena after having recent MOHS procedure and fall with injury to his face. Reported melena and Hgb drop of 6.9
from 7.6.
Impression / Rec:
1. Melena, drop in Hgb - doubt this is GIB. Possibly from ingested blood after facial trauma/nose bleed. Hgb not too far from his baeline. Agree with diet. No plan for endo eval. PPI. Monitor Hgb, if continues to drop then will consider endo
at that point.
Original Note:
Consultation
-
Date/Time Consultation Requested: 08/18/24 0005
Date/Time Consultation Performed: 08/18/24 0800
Requesting Provider: Dr. Cuellar
Performing Provider: Dr. Smith/MARCIA Campo
Reason for Consultation: melena
Medical History
Chief Complaint / HPI
Chief Complaint: melena
History of Present Illness:
59-year-old male with a past medical history significant for decompensated liver cirrhosis secondary to hep C versus alcohol, well-known to our group with recurrent hospitalizations for hepatic encephalopathy and acute on chronic GI bleeding
secondary to portal hypertensive gastropathy, history of post polypectomy bleed, HCV status post treatment with Epclusa with SVR, CVA, hypertension, COPD, chronic thrombocytopenia, anxiety, who presented to the emergency room on with melena after
having recent MOHS procedure, fall with injury to his face without fracture however significant orbital ecchymosis and had significant epistaxis which he ingested on the evening of 08/14/24. He presents now with melena and Hgb of 6.9 from 7.6 from
outpatient infusion center after having paracentesis. The patient BUN was elevated likely from ingested blood products however creatinine remains at his baseline. Patient with stable mentation. He was given 1 unit PRBC overnight and Hgb remained the
same, discussed with patient and wide and will give another this am.Patient denies any fevers, chills, nausea, vomiting, hematochezia, dysphagia or odynophagia. No early satiety or unintentional weight loss. He has had melena since after his fall
and resultant facial ecchymosis and epistaxis. WBC 11.1, hemoglobin 6.6 (6.7), hematocrit 18.6, platelets 96, PT 18.3, INR 1.54, sodium 128, potassium 3.7, chloride 97, CO2 21, BUN 65, creatinine 1.8, glucose 159, total bilirubin 2.5, AST 40, ALT
23, alk phos 78, albumin 2.9
Past Medical History
Past Medical History: COPD, CVA, GERD, HTN and Other (Decompensated alcoholic/hepatitis C cirrhosis with ascites and HE, ETOH abuse, chronic thrombocytopenia, cigarette smoker, chronic hyponatremia, hepatitis C status posttreatment with Epclusa and
eradication, chronic pain syndrome, anxiety, insomnia, History of GI bleed secondary to portal hypertensi)
Past Surgical History: Other (colon polyp with post-polypectomy bleed, spinal leak with patch, tooth extraction)
Social History
Tobacco: Smoker (1ppd )
Alcohol: Former (former alcoholic)
Drug: None
Personal:
Living: With Family
Family History
Family History: Other (sister with hx PVT with prior ETOH use)
Allergies / Home Medications
Allergy/AdvReac Type Severity Reaction Status Date / Time
No Known Allergies Allergy Verified 08/17/24 15:02
�Medication �Instructions �Recorded
furosemide 40 mg tablet (Lasix) 40 mg PO DAILY Fluid 03/13/24
Retention/Swelling
thiamine HCl (vitamin B1) 100 mg 100 mg PO DAILY Supplement 03/13/24
tablet
budesonide 160 mcg-glycopyr 9 2 inh inhalation R BID 04/11/24
mcg-formot 4.8 mcg/actuation HFA Lung/Breathing Issues
inhaler (Breztri Aerosphere)
spironolactone 50 mg tablet 50 mg PO DAILY Liver Issues 04/17/24
magnesium oxide 400 mg PO BID Supplement 06/28/24
rifaximin 550 mg tablet (Xifaxan) 550 mg PO BID hepatic 06/28/24
encephalopathy
lactulose 20 gram/30 mL oral 20 g (30 mL) PO TID Liver issues 07/01/24
solution #2,880 mL
lidocaine 4 % topical patch 1 patch topical DAILY 30 days #30 07/22/24
ea
miconazole nitrate 2 % topical 1 applic topical BID 7 days #85 07/22/24
powder (Miconazorb AF) grams
pantoprazole 40 mg tablet,delayed 40 mg PO BID Gastrointestinal Issue 08/02/24
release (Protonix)
ferrous sulfate 325 mg (65 mg 325 mg PO DAILY 30 days #30 tabs 08/07/24
iron) tablet (FeroSul)
tramadol 50 mg tablet 50 mg PO BID PRN Pain #0 tabs 08/07/24
trazodone 50 mg tablet 25 mg (1/2 x 50 mg) PO HS PRN 08/07/24
Anxiety/insomnia #30 tabs
cephalexin 500 mg capsule 500 mg PO BID 08/17/24
Review of Systems
-
All other systems: A 12 pt ROS was Negative except as stated above in HPI
Vital Signs
Temp Pulse Resp BP Pulse Ox
98.8 F 87 20 124/53 98
08/18/24 07:35 08/18/24 07:35 08/18/24 07:35 08/18/24 07:35 08/18/24 03:00
Physical Exam
Exam
General: No Apparent Distress
HEENT: Other (Orbital ecchymosis, nasal bridge ecchymosis. Covered Mohs procedure with fresh blood on gauze)
Respiratory: Clear
Cardiac: Regular Rhythm
GI: Soft, Non Tender, Normal Bowel Sounds and Other (Positive ascites, no signs of bruising on abdomen)
Skin: Warm and Dry
Neuro: AO x 3
Psych: Calm
Results
WBC 11.1 10^3/uL (4.8-10.8) H 08/17/24 15:05
Hgb 6.6 g/dL (13.0-18.0) L* 08/18/24 01:21
Hct 18.6 % (39.0-52.0) L* 08/18/24 01:21
MCV 89.3 fL (80.0-94.0) 08/17/24 15:05
Plt Count 96 10^3/uL (130-400) L 08/17/24 15:05
Absolute Neuts (auto) 8.7 10^3/uL (1.4-6.5) H 08/17/24 15:05
PT 18.3 Sec (11.4-14.6) H 08/17/24 15:05
INR 1.54 08/17/24 15:05
APTT 48.5 Sec (23.4-35.0) H 08/17/24 15:05
Sodium 128 mmol/L (135-145) L 08/17/24 15:05
Potassium 3.7 mmol/L (3.5-5.1) 08/17/24 15:05
Chloride 97 mmol/L (98-107) L 08/17/24 15:05
Carbon Dioxide 21 mmol/L (22-30) L 08/17/24 15:05
BUN 65 mg/dl (9-20) H 08/17/24 15:05
Creatinine 1.8 mg/dL (0.7-1.3) H 08/17/24 15:05
Calcium 7.8 mg/dl (8.4-10.2) L 08/17/24 15:05
Total Bilirubin 2.5 mg/dl (0.2-1.3) H 08/17/24 15:05
AST 40 U/L (17-59) 08/17/24 15:05
ALT 23 U/L (0-50) 08/17/24 15:05
Alkaline Phosphatase 78 U/L (38-126) 08/17/24 15:05
Diagnostic Image Results:
Paracentesis 08/15/2024:FINDINGS: 6050 cc of clear yellow ascitic fluid was evacuated. Samples sent for analysis as requested.
IMPRESSION: Successful ultrasound guided diagnostic and therapeutic paracentesis.
Prior GI Procedures:
EGD: 06/29/24 maci Gaviria MD - Normal esophagus.
- Portal hypertensive gastropathy.
- Normal examined duodenum.
- No specimens collected.
05/07/[address] Smith : - Hemorrhoids found on perianal exam.
- The examined portion of the ileum was normal.
- Foreign body ([employer] clip) at the hepatic flexure.
- Polypoid lesion at the hepatic flexure.
- Diverticulosis in the sigmoid colon and in the
descending colon.
- Internal hemorrhoids.
- No specimens collected.
Colonoscopy 04/13/2024-[facility] - One 15 to 18 mm polyp at the hepatic flexure,
removed using lift and cut and a hot snare and removed
with a cold snare. Resected and retrieved. Injected.
Treated with hot biopsy forceps. Ligated.
- One 4 mm polyp in the descending colon, removed with
a hot snare. Resected and retrieved. Clip was placed.
- Diverticulosis in the sigmoid colon, in the
descending colon and at the splenic flexure.
bx DC -TA and HF - HP polyp
EGD 04/13/2024� [facility] - No gross lesions in the entire esophagus. No varices.
- Z-line variable, 42 cm from the incisors.
- Portal hypertensive gastropathy.
- Normal examined duodenum.
- No specimens collected.
EGD:12/27/22 [facility] - Normal esophagus.
- Portal hypertensive gastropathy.
- Normal examined duodenum.
- No specimens collected.
Colonoscopy:
Assessment / Plan
-
59-year-old male with a past medical history significant for decompensated liver cirrhosis secondary to hep C versus alcohol, well-known to our group with recurrent hospitalizations for hepatic encephalopathy and acute on chronic GI bleeding
secondary to portal hypertensive gastropathy, history of post polypectomy bleed, HCV status post treatment with Epclusa with SVR, CVA, hypertension, COPD, chronic thrombocytopenia, anxiety, who presented to the emergency room on with melena after
having recent MOHS procedure, fall with injury to his face without fracture however significant orbital ecchymosis and had significant epistaxis which he ingested on the evening of 08/14/24. He presents now with melena and Hgb of 6.9 from 7.6 from
outpatient infusion center after having paracentesis.
Impression:
Melena-> can be multifactorial component of epistaxis, facial ecchymosis as well as portal hypertensive gastropathy
Chronic anemia baseline in the 7 range-> on oral iron
Decompensated alcoholic/hepatitis C liver cirrhosis
Chronic thrombocytopenia
Ascites, requiring biweekly paracentesis-> on Lasix 40 mg daily and Aldactone 50 g daily
Chronic hyponatremia
Hyperbilirubinemia
Hepatic encephalopathy-> on lactulose 20 g p.o. 3 times daily and Xifaxan 550 mg twice daily
Alpha-fetoprotein 30 in March 2024 prior was in the 10-12 range
History of hepatitis C status posttreatment with Epclusa with SVR
Portal hypertension
Plan:
-Transfuse 1 unit PRBC, repeat CBC after. Discussed with RN. Patient agreeable.
-Ok for 2 gm Na diet, order placed
-Continue Pantoprazole
-Repeat CBC, BMP in the am
-Continue Lactulose and Xifaxan
-Would resume Lasix and Aldactone tomorrow as creat baseline as BUN elevation likely from consumption of blood product.
-Trend daily weight
-Due for paracentesis on Tuesday
-
-
Thank you for consultation and allowing me to participate in the patient's care. Please call the power generation equipment repairer GI physician during the after hours with any questions or concerns.
--- NOTE | 2024-08-18 09:00 | PTCARENOTE ---
Assumed care of pt from previous nurse. AAOx3, complaining of 6/10 pain to R flank and nose, orders for PRN tramadol obtained. No other acute complaints at this time. Plan of care ongoing.
[2024-08-18] MEDS: PROTONIX IV (09:47)
[2024-08-18] MEDS: XIFAXAN 550 MG PO ×2 (09:49→19:40)
[2024-08-18] MEDS: VITAMIN B1 100 MG PO (09:49)
[2024-08-18] MEDS: DUPHALAC/CHRONULAC PO (09:49)
[2024-08-18] MEDS: ULTRAM 50 MG PO ×2 (10:22→21:38)
[2024-08-18] MEDS: PROTONIX IV 40 MG IV ×2 (10:23→20:05)
[2024-08-18] MEDS: NSS (PRESERVATIVE FREE) 10 ML IV ×2 (10:23→20:05)
[2024-08-18] MEDS: DUPHALAC/CHRONULAC 20 GRAMS PO ×3 (10:24→21:01)
--- NOTE | 2024-08-18 12:28 | W.CON.NEPH ---
Consultation
-
Date/Time Consultation Requested: 08/18/24 0900
Date/Time Consultation Performed: 08/18/24 1400
Requesting Provider: Dr. Cuellar
Performing Provider: Dr Jennings
Reason for Consultation: TYSON
Medical History
-
Chief Complaint: melena, anemia
History of Present Illness:
This is a 59-year-old gentleman with decompensated liver failure due to hepatitis C and alcohol. His hepatitis C was previously treated with Epclusa with subsequent eradication. His last paracentesis was on August 15. He then began having dark
stools. He had recently been in the hospital at the end of July with recurrent abdominal ascites and confusion. He was stabilized and subsequently discharged on August 07. He returned to the emergency room at on August 14 with epistaxis
after injuring his nose after a Mohs procedure. This was also stabilized and he was discharged from the ER. He returns yesterday because of worsening melena and was found to have a hemoglobin of 6.6. He was also noted to have a creatinine of 1.80
up from his baseline of 1.0 representing acute kidney injury. Of note his creatinine was already 1.8 at the time of his ER visit for epistaxis.
Past Medical History
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
syndrome, anxiety, insomnia, History of GI bleed secondary to portal hypertension, colon polyp with post-polypectomy bleed, spinal leak with patch, tooth extraction
Social History
Tobacco: Smoker
Alcohol: Former
Family History
Family History: Not Pertinent
Allergies / Home Medications
Allergy/AdvReac Type Severity Reaction Status Date / Time
No Known Allergies Allergy Verified 08/17/24 15:02
�Medication �Instructions �Recorded �Confirmed �Type
furosemide 40 mg tablet (Lasix) 40 mg PO DAILY Fluid 03/13/24 08/17/24 History
Retention/Swelling
thiamine HCl (vitamin B1) 100 mg 100 mg PO DAILY Supplement 03/13/24 08/17/24 History
tablet
budesonide 160 mcg-glycopyr 9 2 inh inhalation R BID 04/11/24 08/17/24 History
mcg-formot 4.8 mcg/actuation HFA Lung/Breathing Issues
inhaler (Breztri Aerosphere)
spironolactone 50 mg tablet 50 mg PO DAILY Liver Issues 04/17/24 08/17/24 History
magnesium oxide 400 mg PO BID Supplement 06/28/24 08/17/24 History
rifaximin 550 mg tablet (Xifaxan) 550 mg PO BID hepatic 06/28/24 08/17/24 History
encephalopathy
lactulose 20 gram/30 mL oral 20 g (30 mL) PO TID Liver issues 07/01/24 08/17/24 Rx
solution #2,880 mL
lidocaine 4 % topical patch 1 patch topical DAILY 30 days #30 07/22/24 08/17/24 Rx
ea
miconazole nitrate 2 % topical 1 applic topical BID 7 days #85 07/22/24 08/17/24 Rx
powder (Miconazorb AF) grams
pantoprazole 40 mg tablet,delayed 40 mg PO BID Gastrointestinal Issue 08/02/24 08/17/24 History
release (Protonix)
ferrous sulfate 325 mg (65 mg 325 mg PO DAILY 30 days #30 tabs 08/07/24 08/17/24 Rx
iron) tablet (FeroSul)
tramadol 50 mg tablet 50 mg PO BID PRN Pain #0 tabs 08/07/24 08/17/24 Rx
trazodone 50 mg tablet 25 mg (1/2 x 50 mg) PO HS PRN 08/07/24 08/17/24 Rx
Anxiety/insomnia #30 tabs
cephalexin 500 mg capsule 500 mg PO BID 08/17/24 08/17/24 History
Review of Systems
-
No chest pain, no shortness of breath,
All other systems: Negative unless noted
Physical Exam
Vital Signs
Vital Signs
Temp Pulse Resp BP Pulse Ox
97.9 F 83 20 128/56 99
08/18/24 12:05 08/18/24 12:05 08/18/24 12:05 08/18/24 12:05 08/18/24 07:31
Lab Results
eGFR 42.30 08/17/24 15:05
Albumin 2.9 g/dl (3.5-5.0) L 08/17/24 15:05
Laboratory Tests
08/07/24 08/13/24 08/18/24
06:45 07:52 00:30
Sodium 134 L 129 L
Creatinine 1.0 1.8 H
Hyaline Casts 3-5
Urine Creatinine 137.300
Urine Sodium < 5 L
Laboratory Tests
08/17/24
15:05
Sodium 128 L
Potassium 3.7
Carbon Dioxide 21 L
Creatinine 1.8 H
Physical Exam
Patient is awake alert oriented and in no distress. Mood and affect were pleasant, insight and judgment were good. Pupils are equal round and reactive to light, extraocular movements are intact, sclera were anicteric. Hearing was normal, ears and
nose are intact except for significant ecchymoses paranasal. Oropharynx was clear. Neck was supple with trachea midline and no thyromegaly. Heart was regular rate and rhythm without rubs. Lower extremities without edema. Lungs were clear to
auscultation bilaterally and with normal excursion. Abdomen was soft, nontender, with normal active bowel sounds, and no hepatosplenomegaly. Skin was without rash and with normal turgor.
Data Reviewed
-
CT Scan: Report Reviewed by me (CT abdomen and pelvis without contrast on 08/18/2024 shows large ascites, cirrhotic liver, splenomegaly, right inguinal hernia, and umbilical hernia, left ureteral calculus nonobstructive)
Ultrasound: Report Reviewed by me (Abdominal ultrasound on 08/18/2024 shows cirrhotic liver, large ascites)
Medical Tests (Nuc Med, Echo etc): Image Personally Visualized and interpreted (EKG on 07/27/2024 by my reading shows sinus rhythm with PACs, nonspecific intraventricular conduction delay)
Labs: Labs Reviewed by me
Old Records: Reviewed
Assessment/Plan
-
Assessment
TYSON
ESLD
Ascites
Melena anemia
COPD
Thrombocytopenia
Hyponatremia
Plan
Holding Lasix and Aldactone
For transfusion
TYSON is likely due to acute anemia there may be also some contribution from decompensated liver failure from the GI bleed
Would not resume Aldactone until creatinine has improved
May use Lasix if there is concern regarding volume overload which are currently is not
Follow BMP
Continue prior salt and fluid restriction
IV fluids
Discussed with patient and family
[2024-08-18] MEDS: KCL 20 MEQ PO (13:23)
--- NOTE | 2024-08-18 13:56 | CON.MD ---
Consultation - Medical
-
Pt seen and consult dictated.
There is no facial fx.
There is no active epistaxis; initial epistaxis after fall was very limited and unlikely to have led to small drop in Hgb.
No new recommendations.
Will sign off. Please call with any questions.
[2024-08-18] MEDS: STERILE WATER FOR INJECTION 10 ML IV (21:10)
[2024-08-18] MEDS: ROCEPHIN 1000 MG IV (21:10)
[2024-08-18 22:27] LABS: APTT 40.8 Sec (23.4-35.0)
[2024-08-18 22:28] LABS: Hematocrit 18.7 % (39.0-52.0); Hemoglobin 6.6 g/dL (13.0-18.0); Mean Corp Hgb Conc. 35.3 g/dL (33.0-37.0); Mean Corpuscular Hgb 30.3 pg (27.0-31.0); Mean Corpuscular Volume 85.8 fL (80.0-94.0); Red Blood Cell Count 2.18 10^6/uL (4.70-6.10); Red Cell Dist. Width 15.3 % (11.5-14.5); White Blood Cell Count 4.6 10^3/uL (4.8-10.8)
[2024-08-18 22:39] LABS: Blood Urea Nitrogen 66 mg/dl (9-20); Carbon Dioxide 21 mmol/L (22-30); Chloride 100 mmol/L (98-107); Estimated Creatinine Clearance 50 ml/min; Glucose 140 mg/dl (70-99); Magnesium 3.2 mg/dl (1.6-2.3); Potassium 3.4 mmol/L (3.5-5.1); Sodium 132 mmol/L (135-145); eGFR 48.72
[2024-08-18 22:46] LABS: Platelet Count 56 10^3/uL (130-400)
[2024-08-18 22:47] LABS: Mean Platelet Volume 9.3 fL (7.4-10.4)
[2024-08-19] VITALS (10 sets, daily range): BP systolic 118–137; BP diastolic 49–66
[2024-08-19] MEDS: DESYREL 50 MG PO ×2 (00:15→22:36)
--- NOTE | 2024-08-19 07:23 | W.PN.HOSP.TC ---
Addendum entered and electronically signed by Sai Mariano MD 08/19/24 17:21:
I saw and evaluated the patient. I reviewed the resident�s note and agree with findings and plan as documented in the resident�s note.
1. Acute blood loss anemia , melena suspected from epistaxis versus other source -patient had recent Mohs surgery and had a fall causing further injury on the area. At admission was noted to having some epistaxis and was seen by ENT. Patient
require blood transfusion although counts are low again today requiring 1 more unit. Question of possible digested blood given melanotic stool versus other GI source causing this. Patient had recent EGD/C-scope. GI evaluated and patient to get a
nuclear bleeding scan. Maintain on clear liquid diet and IV Protonix twice daily
Repeat hemoglobin of 8.6 after 1 U prbc today, expect to settle down to ~ 8. monitor.
2. Nausea/Vomiting - started in the morning today. symptomatic care with anti-emetics
3. TYSON -suspected hypovolemia/blood loss related. Hold Lasix/Aldactone. Question of hepatorenal syndrome as well and got albumin 1g/kg x2 doses. SBP >100 and continue to monitor.
4. Acute on chronic hyponatremia -improved. Likely on chronic hyponatremia with cirrhosis. Acute exacerbation likely due to ADH excess from blood loss. Urine Na < 5. Uosm 440 only.
5. Recurrent ascites - gets paracentesis every tuesday. will have [facility] evaluated tomorrow for routine paracentesis.
DVTPPX -scd
Full code
Total time spent : 53 mins
Original Note:
Today's Communication/Plan
-
Assessment / Plan
Assessment / Plan
Mr. [facility] Mazariegos is a 59yoM pmh cirrhosis, recurrent sbp, hepatic encephalopathy, htn, chronic anemia, hyponatremia was admitted 08/17 for worsening outpatient labs.
Melena
Anemia
- transfuse for Hb>7-8
- prophylactic ceftriaxone
- PPI BID
- follow cbc
- gi consulted - no plan for endoscopy at this time
TYSON
- u/a: uti likely
- urine cx pending
- ivf, abx
- iv albumin 1g/kg x2days
- nephro consulted
- follow bmp
Facial trauma secondary to fall s/p Mohs procedure
- procedure 08/14
- no acute intracranial abnormalities, facial bone abnormalities on CT
- monitor for bleeding
- ent consulted - no recommendations at this time
Hypotonic Hyponatremia, chronic
- Urine Osm 439, Urine Cr 137.3, Urine Na<5
- likely secondary to low effective arterial blood volume secondary to cirrhosis.
- volume expansion
- free water restriction
- hold diuretics
Recurrent ascites secondary to portal hypertension secondary to end stage liver disease
- last paracentesis 08/15. No SBP
- gets weekly paracentesis on Mondays
- not a tips candidate at this time
- RUQ u/s: Cirrhotic appearance of the liver with large volume ascites.
- abdomen CT: Cirrhotic appearing liver with large volume ascites, upper abdominal collateral vessels and splenomegaly. Right inguinal hernia and umbilical hernia containing ascites fluid. Unchanged 9 mm calculus in the proximal left ureter. No
hydronephrosis.
- will be evaluated 08/27 at [place] for possible liver transplant
Hepatic encephalopathy
- at baseline
- cont lactulose, rifaxime
HTN
- resume lasix, aldactone tw
DVT prophylaxis
- SCDs
Code status: FULL CODE
Diet: 2 gram sodium
Anticipated Discharge: 24 - 48 hours
Subjective/Interval History
-
Date of Service: August 19, 2024
Mr. [facility] Mazariegos is a 59yoM pmh cirrhosis, recurrent sbp, hepatic encephalopathy, htn, chronic anemia, hyponatremia was admitted 08/17 for worsening outpatient labs. No acute events overnight. Pt reports being able to sleep well. No hematochezia
Objective Data
-
Labs:
Laboratory Results
08/18/24 08/19/24
22:06 06:42
WBC 4.6 L Pending
Hgb 6.6 L* Pending
Hct 18.7 L* Pending
Plt Count 56 L D Pending
APTT 40.8 H
Sodium 132 L Pending
Potassium 3.4 L Pending
Chloride 100 Pending
Carbon Dioxide 21 L Pending
BUN 66 H Pending
Creatinine 1.6 H Pending
Glucose 140 H Pending
Calcium 8.0 L Pending
Vital Signs:
Vital Signs
Temp Pulse Resp BP Pulse Ox
99.1 F 82 16 129/58 99
08/19/24 03:46 08/19/24 03:46 08/19/24 03:46 08/19/24 03:46 08/19/24 00:58
I&O
08/18/24 08/19/24 08/20/24
06:59 06:59 06:59
Intake Total 250 / 250 1979 / 1979
Output Total 450 / 450 475 / 475
Balance -200 / -200 1505 / 1505
Review of Systems
-
History Source: Patient
All other systems: Reviewed and negative
Constitutional: Reports No Symptoms
Respiratory: Reports No Symptoms
Cardiac: Reports No Symptoms
Abdomen/GI: Reports No Symptoms
Musculoskeletal: Reports No Symptoms
Physical Exam
-
General: Appears Chronically Ill
HEENT: Normocephalic and Other (orbital ecchymosis, nasal bridge ecchymosis. Covered Mohs procedure. Dried blood from nose. scleral icterus)
Respiratory: Clear to Auscultation and Non Labored Respirations
Cardiac: Regular Rhythm and S1/S2
GI: Soft, Nontender, Nondistended, Normal Bowel Sounds, Organomegaly and Other (caput medusae, spider angiomas)
Musculoskeletal: No Clubbing, No Cyanosis and No Edema
Skin: Warm, Dry and Jaundice
Neuro: Awake and AO x 3
Psych: Calm
[2024-08-19] MEDS: SYMBICORT 160/4.5 MCG INHALER INH ×2 (07:53→20:31)
[2024-08-19] MEDS: SPIRIVA RESPIMAT 2.5 MCG INH (07:53)
[2024-08-19 08:20] LABS: Hematocrit 20.1 % (39.0-52.0); Hemoglobin 7.2 g/dL (13.0-18.0); Mean Corp Hgb Conc. 35.8 g/dL (33.0-37.0); Mean Corpuscular Hgb 31.4 pg (27.0-31.0); Mean Corpuscular Volume 87.8 fL (80.0-94.0); Mean Platelet Volume 10.1 fL (7.4-10.4); Platelet Count 54 10^3/uL (130-400); Red Blood Cell Count 2.29 10^6/uL (4.70-6.10); Red Cell Dist. Width 15.4 % (11.5-14.5); White Blood Cell Count 3.6 10^3/uL (4.8-10.8)
[2024-08-19 09:05] LABS: Blood Urea Nitrogen 59 mg/dl (9-20); Carbon Dioxide 22 mmol/L (22-30); Chloride 102 mmol/L (98-107); Estimated Creatinine Clearance 57 ml/min; Glucose 114 mg/dl (70-99); Potassium 3.3 mmol/L (3.5-5.1); Sodium 133 mmol/L (135-145); eGFR 57.18
[2024-08-19] MEDS: ULTRAM 50 MG PO (09:06)
[2024-08-19] MEDS: VITAMIN B1 100 MG PO (09:06)
[2024-08-19] MEDS: DUPHALAC/CHRONULAC PO ×4 (09:06→17:01)
[2024-08-19] MEDS: XIFAXAN 550 MG PO ×2 (09:06→21:21)
[2024-08-19] MEDS: NSS (PRESERVATIVE FREE) 10 ML IV ×2 (09:07→21:22)
[2024-08-19] MEDS: PROTONIX IV 40 MG IV ×2 (09:07→21:22)
[2024-08-19] MEDS: ZOFRAN 4 MG IV ×2 (09:22→16:18)
[2024-08-19] MEDS: REGLAN 5 MG IV (10:33)
--- NOTE | 2024-08-19 11:45 | W.PN.NEPH.PH ---
Today's Communication / Plan
-
restart aldactone
Assessment/Plan
-
Assessment
TYSON
ESLD
Ascites
Melena anemia
COPD
Thrombocytopenia
Hyponatremia
Plan
transfuse PRN
restart aldactone
TYSON is likely due to acute anemia there may be also some contribution from decompensated liver failure from the GI bleed
may restart lasix tomorrow
Follow BMP
Continue prior salt and fluid restriction
-
-
Date of Service: August 19, 2024
CC / HPI / ROS
-
Chief Complaint:
TYSON
History of Present Illness:
Hgb up to 7.2 after transfusion
TYSON/Cr down to 1.4
K low 3.3
Na low stable 133
Review of Systems:
RLQ pain
no CP/SOB
Labs
-
Labs:
Sodium 133 mmol/L (135-145) L 08/19/24 06:42
Potassium 3.3 mmol/L (3.5-5.1) L 08/19/24 06:42
Chloride 102 mmol/L (98-107) 08/19/24 06:42
Carbon Dioxide 22 mmol/L (22-30) 08/19/24 06:42
BUN 59 mg/dl (9-20) H 08/19/24 06:42
Creatinine 1.4 mg/dL (0.7-1.3) H 08/19/24 06:42
eGFR 57.18 08/19/24 06:42
Glucose 114 mg/dl (70-99) H 08/19/24 06:42
Calcium 8.0 mg/dl (8.4-10.2) L 08/19/24 06:42
Albumin 2.9 g/dl (3.5-5.0) L 08/17/24 15:05
Physical Exam
-
Vital Signs:
Vital Signs
Temp Pulse Resp BP Pulse Ox
98.9 F 90 18 126/57 100
08/19/24 08:00 08/19/24 08:00 08/19/24 08:00 08/19/24 08:00 08/19/24 08:00
Cardiovascular:: Regular rate and rhythm
Respiratory:: Bilateral: CTA
Lung Excursion:: Normal
Abdomen:: Nontender and Soft
Bowel Sounds:: Normal
Extremity Edema:: None: Bilateral:
[2024-08-19] MEDS: ALDACTONE PO (12:51)
--- NOTE | 2024-08-19 13:44 | W.PN.GI.CBS2 ---
Today's Communication / Plan
-
lactulose enema. bleeding scan.
Assessment / Plan
-
59-year-old male with a past medical history significant for decompensated liver cirrhosis secondary to hep C versus alcohol, well-known to our group with recurrent hospitalizations for hepatic encephalopathy and acute on chronic GI bleeding
secondary to portal hypertensive gastropathy, history of post polypectomy bleed, HCV status post treatment with Epclusa with SVR, CVA, hypertension, COPD, chronic thrombocytopenia, anxiety, who presented to the emergency room on with melena after
having recent MOHS procedure, fall with injury to his face without fracture however significant orbital ecchymosis and had significant epistaxis which he ingested on the evening of 08/14/24. He presents now with melena and Hgb of 6.9 from 7.6 from
outpatient infusion center after having paracentesis.
Patient complains of abdominal pain. He also reports some melena. He had CT Abdo yesterday without IV contrast which was largely nondiagnostic, but no acute findings. Hgb is up at 7.2 but he received about 4 units of blood so far. He is not as
conversant today and review of MAR shows lactulose was not given today because he was unable to take it. His recurrent drop in Hgb (as low as 5.6 on 06/2024) has occurred multiple times in the past along with melena, and he had multiple endoscopic
evaluations, most recent EGD on 06/2024 ([facility]) and colonoscopy on 05/2024 (retained OVESCO clip in hep flx from prev brisk bleeding site).
Ordered bleeding scan for further evaluation.
Ordered lactulose enema.
Should have therapeutic para tomorrow (he is due for it tomorrow as OP).
Will determine if repeat EGD/colonoscopy would be indicated pending results.
Total Time Spent with Patient (in minutes): 35
Subjective
Subjective
Date of Service: August 19, 2024
C/o abdo pain, reports melena
Objective
Data Reviewed
Laboratory Data:
Laboratory Results
08/19/24 06:42
Laboratory Results
PT 18.3 Sec (11.4-14.6) H 08/17/24 15:05
INR 1.54 08/17/24 15:05
APTT 40.8 Sec (23.4-35.0) H 08/18/24 22:06
Magnesium 3.2 mg/dl (1.6-2.3) H 08/18/24 22:06
Total Bilirubin 2.5 mg/dl (0.2-1.3) H 08/17/24 15:05
AST 40 U/L (17-59) 08/17/24 15:05
ALT 23 U/L (0-50) 08/17/24 15:05
Alkaline Phosphatase 78 U/L (38-126) 08/17/24 15:05
Vital Signs and I&O:
Vital Signs
Temp Pulse Resp BP Pulse Ox
97.7 F 78 20 131/55 99
08/19/24 12:48 08/19/24 12:48 08/19/24 12:48 08/19/24 12:48 08/19/24 12:48
I&O
08/18/24 08/19/24 08/20/24
06:59 06:59 06:59
Intake Total 250 / 250 1979 / 1979 0 / 0
Output Total 450 / 450 475 / 475
Balance -200 / -200 1505 / 1505 0 / 0
[2024-08-19] MEDS: DILAUDID 0.25 MG IV ×3 (14:06→21:28)
--- NOTE | 2024-08-19 15:20 | PTCARENOTE ---
Patient complaining of 8/10 abdominal pain and nausea, x1 episode of reddish emesis. Patient unable to tolerate anything PO. Orders for IV dilaudid and IV zofran obtained - see MAR. 1 unit of PRBC transfusing currently. Plan of care ongoing.
[2024-08-19 16:17] LABS: Hematocrit 23.9 % (39.0-52.0); Hemoglobin 8.6 g/dL (13.0-18.0); Mean Corpuscular Hgb 30.6 pg (27.0-31.0); Mean Corpuscular Volume 85.1 fL (80.0-94.0); Mean Platelet Volume 9.1 fL (7.4-10.4); Platelet Count 54 10^3/uL (130-400); Red Blood Cell Count 2.81 10^6/uL (4.70-6.10); Red Cell Dist. Width 15.7 % (11.5-14.5); White Blood Cell Count 4.5 10^3/uL (4.8-10.8)
--- NOTE | 2024-08-19 16:18 | CHAP ---
Visited [facility] at 12:45, per nurse's request. , Cherise, was bedside. Emotional and spiritual support provided.
--- NOTE | 2024-08-19 16:18 | CM ---
manager implementation reviewed patient's chart and patient lives with spouse in a a 2 story home, patient required assistance with adl's and ambulation, patient has a cane, walker, hospital bed and home oxygen. Patient with recent falls at home.
PCP: Dr. Wood
[facility]
Plan; Home when stable.
[2024-08-19] MEDS: LACTULOSE ENEMA 300 ML RECTAL (17:24)
[2024-08-19] MEDS: STERILE WATER FOR INJECTION 10 ML IV (21:22)
[2024-08-19] MEDS: ROCEPHIN 1000 MG IV (21:22)
[2024-08-19] MEDS: DUPHALAC/CHRONULAC 20 GRAMS PO (21:22)
[2024-08-20] VITALS (8 sets, daily range): BP systolic 83–136; BP diastolic 54–64; PULSE 94–108; BMI 25.2
[2024-08-20] MEDS: DILAUDID 0.25 MG IV ×5 (00:58→17:55)
--- NOTE | 2024-08-20 04:30 | PTCARENOTE ---
Anterior nose dressing saturated with blood and dripping off nose. Dressing changed X2 overnight for bleeding. Pt having loose brown BM, pt having desired response from Lactulose. Unable to Heme test due to liquid consistency. Pt reports right
scrotal discomfort due to hernia. ABD round, dist, firm. Pt tolerating sips of clears overnight. Will continue to monitor.
--- NOTE | 2024-08-20 06:03 | PTCARENOTE ---
Pt awake t/o the night. Pt unable to sleep. pt with pain in abd, inguinal hernia, and nose. PRN pain medication administered as ordered. Will continue to monitor.
--- NOTE | 2024-08-20 07:39 | W.PN.HOSP.TC ---
Today's Communication/Plan
-
Assessment / Plan
Assessment / Plan
Mr. [facility] Mazariegos is a 59yoM pmh cirrhosis, recurrent sbp, hepatic encephalopathy, htn, chronic anemia, hyponatremia was admitted 08/17 for worsening outpatient labs.
Melena
Anemia
- transfuse for Hb>7
- prophylactic ceftriaxone
- PPI BID
- follow cbc
- gi consulted - no plan for endoscopy at this time
- bleeding scan cancelled due to resolution of melena
- enteroscopy and colonoscopy tomorrow. If negative, consider outpt capsule endo
TYSON
- u/a: uti likely
- urine cx: yeast
- ivf, abx
- received albumin 1g/kg x2days
- nephro consulted
- follow bmp
Facial trauma secondary to fall s/p Mohs procedure
- procedure 08/14
- no acute intracranial abnormalities, facial bone abnormalities on CT
- monitor for bleeding
- ent consulted - no recommendations at this time
Hypotonic Hyponatremia, chronic
- Urine Osm 439, Urine Cr 137.3, Urine Na<5
- likely secondary to low effective arterial blood volume secondary to cirrhosis.
- salt, water restriction
Recurrent ascites secondary to portal hypertension secondary to end stage liver disease
- last paracentesis 08/20. 6L clear yellow ascitic fluid
- received 37.5mg albumin
- gets weekly paracentesis on Mondays
- not a tips candidate at this time
- RUQ u/s: Cirrhotic appearance of the liver with large volume ascites.
- abdomen CT: Cirrhotic appearing liver with large volume ascites, upper abdominal collateral vessels and splenomegaly. Right inguinal hernia and umbilical hernia containing ascites fluid. Unchanged 9 mm calculus in the proximal left ureter. No
hydronephrosis.
- will be evaluated 08/27 at [place] for possible liver transplant
Hepatic encephalopathy
- at baseline
- cont lactulose, rifaxime
HTN
- resume lasix, aldactone
DVT prophylaxis
- SCDs
Code status: FULL CODE
Diet: 2 gram sodium
Anticipated Discharge: 24 - 48 hours
Subjective/Interval History
-
Date of Service: August 20, 2024
Mr. [facility] Mazariegos is a 59yoM pmh cirrhosis, recurrent sbp, hepatic encephalopathy, htn, chronic anemia, hyponatremia was admitted 08/17 for worsening outpatient labs. Weekly paracentesis today. Developed a nosebleed during the procedure.
Objective Data
-
Labs:
Laboratory Results
08/20/24
06:00
WBC Pending
Hgb Pending
Hct Pending
Plt Count Pending
PT Pending
INR Pending
Sodium Pending
Potassium Pending
Chloride Pending
Carbon Dioxide Pending
BUN Pending
Creatinine Pending
Glucose Pending
Calcium Pending
Total Bilirubin Pending
AST Pending
ALT Pending
Alkaline Phosphatase Pending
Vital Signs:
Vital Signs
Temp Pulse Resp BP Pulse Ox
98.9 F 89 18 131/66 98
08/19/24 23:14 08/19/24 23:14 08/19/24 23:14 08/19/24 23:14 08/20/24 00:29
I&O
08/19/24 08/20/24 08/21/24
06:59 06:59 06:59
Intake Total 1979 / 1979 1048 / 1048 240 / 240
Output Total 475 / 475 300 / 300 100 / 100
Balance 1505 / 1505 748 / 748 140 / 140
Review of Systems
-
History Source: Patient
Constitutional: Reports No Symptoms
EENT: Reports Bloody Nose
Respiratory: Reports No Symptoms
Cardiac: Reports No Symptoms
Abdomen/GI: Reports Vomiting and Hematemesis; Denies Bloody Stools
Genitourinary: Reports No Symptoms
Musculoskeletal: Reports No Symptoms
Hematologic / Lymphatic: Reports Bleeding
Physical Exam
-
General: Appears Chronically Ill
HEENT: Normocephalic and Other (orbital ecchymosis, nasal bridge ecchymosis. Covered Mohs procedure. Dried blood from nose. scleral icterus)
Respiratory: Clear to Auscultation and Non Labored Respirations
Cardiac: Regular Rhythm and S1/S2
GI: Soft, Nontender, Nondistended, Normal Bowel Sounds and Organomegaly
Musculoskeletal: No Clubbing, No Cyanosis and No Edema
Skin: Warm, Dry, Lesions and Jaundice
Neuro: Awake and AO x 3
Psych: Calm
[2024-08-20] MEDS: SYMBICORT 160/4.5 MCG INHALER INH ×2 (07:46→19:49)
[2024-08-20] MEDS: SPIRIVA RESPIMAT 2.5 MCG INH (07:46)
--- NOTE | 2024-08-20 08:13 | VNURNOTE ---
Chart reviewed. Patient is current with [facility] nursing. Will continue to follow hospital course and DC plans.
--- NOTE | 2024-08-20 09:35 | PTCARENOTE ---
[facility] note: Patient started to have nose bleeding during procedure. Pressure held at site by patient. bleeding stopped. Gauze dressing changed by this RN. [facility] RN Anita notified of nose bleeding.
[2024-08-20] MEDS: FLEXBUMIN 50 IV (10:37)
[2024-08-20] MEDS: XIFAXAN 550 MG PO ×2 (10:43→20:47)
[2024-08-20] MEDS: VITAMIN B1 100 MG PO (10:43)
[2024-08-20] MEDS: ALDACTONE 25 MG PO (10:43)
[2024-08-20] MEDS: PROTONIX IV 40 MG IV ×2 (10:44→20:47)
[2024-08-20] MEDS: NSS (PRESERVATIVE FREE) 10 ML IV ×2 (10:44→20:47)
[2024-08-20] MEDS: FLUSH (NSS) 2 FLUSH IV ×2 (10:51→10:52)
[2024-08-20 10:53] LABS: Body Fluid Albumin < 1.0 g/dl; Body Fluid Amylase < 30 U/L; Body Fluid LDH < 90 U/L; Body Fluid Protein < 2.0 g/dl
[2024-08-20] MEDS: DUPHALAC/CHRONULAC 20 GRAMS PO ×3 (10:54→21:51)
[2024-08-20 11:06] LABS: Hematocrit 24.6 % (39.0-52.0); Hemoglobin 8.4 g/dL (13.0-18.0); Mean Corp Hgb Conc. 34.1 g/dL (33.0-37.0); Mean Corpuscular Hgb 30.2 pg (27.0-31.0); Mean Corpuscular Volume 88.5 fL (80.0-94.0); Mean Platelet Volume 10.3 fL (7.4-10.4); Platelet Count 71 10^3/uL (130-400); Red Blood Cell Count 2.78 10^6/uL (4.70-6.10); White Blood Cell Count 6.1 10^3/uL (4.8-10.8)
[2024-08-20 11:07] LABS: INR 1.61
[2024-08-20 11:23] LABS: ALT (SGPT) 20 U/L (0-50); AST (SGOT) 35 U/L (17-59); Alkaline Phosphatase 51 U/L (38-126); Blood Urea Nitrogen 47 mg/dl (9-20); Calcium 8.4 mg/dl (8.4-10.2); Carbon Dioxide 24 mmol/L (22-30); Chloride 103 mmol/L (98-107); Estimated Creatinine Clearance 67 ml/min; Glucose 115 mg/dl (70-99); Potassium 3.2 mmol/L (3.5-5.1); Sodium 137 mmol/L (135-145); Total Bilirubin 3.4 mg/dl (0.2-1.3); Total Protein 4.7 g/dl (6.3-8.2); eGFR > 60.00
--- NOTE | 2024-08-20 12:21 | W.PN.GI.CBS2 ---
Addendum entered and electronically signed by Norris Smith MD 08/20/24 13:21:
I saw and examined the patient.
The PA's note was reviewed and I agree with the note.
Comment:
Hgb back up to 8.4, no further melena thus will cancel bleeding scan. Pt feeling better today after LVP. Given multiple recurrence/readmission with same complaint, will plan for definitive procedure with push enteroscopy and colonoscopy tomorrow;
if -ve then can consider capsule endo as OP.
Original Note:
Today's Communication / Plan
-
Push enteroscopy/colonoscopy in a.m.
Assessment / Plan
-
59-year-old male with a past medical history significant for decompensated liver cirrhosis secondary to hep C versus alcohol, well-known to our group with recurrent hospitalizations for hepatic encephalopathy and acute on chronic GI bleeding
secondary to portal hypertensive gastropathy, history of post polypectomy bleed, HCV status post treatment with Epclusa with SVR, CVA, hypertension, COPD, chronic thrombocytopenia, anxiety, who presented to the emergency room on with melena after
having recent MOHS procedure, fall with injury to his face without fracture however significant orbital ecchymosis and had significant epistaxis which he ingested on the evening of 08/14/24. He presents now with melena and Hgb of 6.9 from 7.6 from
outpatient infusion center after having paracentesis.
Patient complains of abdominal pain. He also reports some melena. He had CT Abdo yesterday without IV contrast which was largely nondiagnostic, but no acute findings. Hgb is up at 7.2 but he received about 4 units of blood so far. He is not as
conversant today and review of MAR shows lactulose was not given today because he was unable to take it. His recurrent drop in Hgb (as low as 5.6 on 06/2024) has occurred multiple times in the past along with melena, and he had multiple endoscopic
evaluations, most recent EGD on 06/2024 ([facility]) and colonoscopy on 05/2024 (retained OVESCO clip in hep flx from prev brisk bleeding site).
Impression:
Melena/maroon blood-> patient with history of portal hypertensive gastropathy. Also with epistaxis.
Chronic anemia baseline in the 7 range-> currently hemoglobin 8.4 after receiving 4 units of blood.
Decompensated alcoholic/hepatitis C liver cirrhosis
Chronic thrombocytopenia
Ascites, requiring biweekly paracentesis-> on Lasix 40 mg daily and Aldactone 50 g daily
Chronic hyponatremia
Hyperbilirubinemia
Hepatic encephalopathy-> on lactulose 20 g p.o. 3 times daily and Xifaxan 550 mg twice daily
Alpha-fetoprotein 30 in March 2024 prior was in the 10-12 range
History of hepatitis C status posttreatment with Epclusa with SVR
Portal hypertension
Plan:
-Continue clear liquid
-Continue Pantoprazole 40 mg IV twice daily
-Push enteroscopy/colonoscopy in a.m.
-Repeat CBC, CMP, coags in the am
-Continue Lactulose and Xifaxan
-Aldactone/Lasix as per renal currently resume
-Trend daily weight
-Status post 6 L paracentesis with albumin after. Await cultures. Currently on Rocephin.
Subjective
Subjective
Date of Service: August 20, 2024
Patient states he is feeling better today. He states he had episode of dried blood overnight and swallowing blood from epistaxis. He also had repeat epistaxis today while in paracentesis. Patient had 6 L removed during paracentesis. He states
she feels much improved. 37.5 g albumin administered after. He continues on ceftriaxone as well as pantoprazole 40 mg IV twice daily. He also had episodes of dark/bloody bowel movements this morning. Hemoglobin increased to 8.4 this morning.
Tolerating clear liquid diet. Will plan on push enteroscopy/colonoscopy in a.m. Patient agreeable.
Objective
Data Reviewed
Laboratory Data:
Laboratory Results
08/20/24 10:22
08/20/24 10:22
Laboratory Results
PT 19.0 Sec (11.4-14.6) H 08/20/24 10:22
INR 1.61 08/20/24 10:22
APTT 40.8 Sec (23.4-35.0) H 08/18/24 22:06
Magnesium 3.2 mg/dl (1.6-2.3) H 08/18/24 22:06
Total Bilirubin 3.4 mg/dl (0.2-1.3) H 08/20/24 10:22
AST 35 U/L (17-59) 08/20/24 10:22
ALT 20 U/L (0-50) 08/20/24 10:22
Alkaline Phosphatase 51 U/L (38-126) 08/20/24 10:22
Vital Signs and I&O:
Vital Signs
Temp Pulse Resp BP Pulse Ox
98.0 F 94 18 130/54 100
08/20/24 11:05 08/20/24 11:05 08/20/24 11:05 08/20/24 11:05 08/20/24 11:05
I&O
08/19/24 08/20/24 08/21/24
06:59 06:59 06:59
Intake Total 1979 / 1979 1048 / 1048 240 / 240
Output Total 475 / 475 300 / 300 100 / 100
Balance 1505 / 1505 748 / 748 140 / 140
Physical Exam
Physical Exam
HEENT: Anicteric
Cardiology: Normal Sinus Rhythm
Pulmonary: Clear
GI: Soft, Distended (Mildly distended, improved from prior), Non Tender and Normal Bowel Sounds
Extremities: No Edema
Neuro: Non Focal and Other (No asterixis)
[2024-08-20] MEDS: FLEXBUMIN 100 IV (12:39)
[2024-08-20 13:02] LABS: Body Fluid WBC 125 /CUMM
[2024-08-20 13:07] LABS: Body Fluid Second Tech CS
--- NOTE | 2024-08-20 14:02 | CM ---
Chart reviewed and patient was living with spouse at home with [facility] services.
Plan; Home with [facility] when stable.
--- NOTE | 2024-08-20 14:35 | W.PN.NEPH.PH ---
Today's Communication / Plan
-
replete K
holidng lasix
Assessment/Plan
-
Assessment
TYSON
ESLD
Ascites
Melena anemia
COPD
Thrombocytopenia
Hyponatremia
Plan
transfuse PRN
restarted aldactone, K low
TYSON is likely due to acute anemia there may be also some contribution from decompensated liver failure from the GI bleed
lasix still held due to hypokalemia
give additional potassium today
TYSON resolving
Follow BMP
Continue prior salt and fluid restriction
-
-
Date of Service: August 20, 2024
CC / HPI / ROS
-
Chief Complaint:
TYSON
History of Present Illness:
Hgb up to 8.4 after transfusion
hemodynamically stable
TYSON/Cr down to 1.2
K low 3.2
Na up to 137
Review of Systems:
RLQ pain
no CP/SOB
Labs
-
Labs:
WBC 6.1 10^3/uL (4.8-10.8) 08/20/24 10:22
RBC 2.78 10^6/uL (4.70-6.10) L 08/20/24 10:22
Hgb 8.4 g/dL (13.0-18.0) L 08/20/24 10:22
Hct 24.6 % (39.0-52.0) L 08/20/24 10:22
Plt Count 71 10^3/uL (130-400) L D 08/20/24 10:22
Sodium 137 mmol/L (135-145) 08/20/24 10:22
Potassium 3.2 mmol/L (3.5-5.1) L 08/20/24 10:22
Chloride 103 mmol/L (98-107) 08/20/24 10:22
Carbon Dioxide 24 mmol/L (22-30) 08/20/24 10:22
BUN 47 mg/dl (9-20) H 08/20/24 10:22
Creatinine 1.2 mg/dL (0.7-1.3) 08/20/24 10:22
eGFR > 60.00 08/20/24 10:22
Glucose 115 mg/dl (70-99) H 08/20/24 10:22
Calcium 8.4 mg/dl (8.4-10.2) 08/20/24 10:22
Albumin 3.0 g/dl (3.5-5.0) L 08/20/24 10:22
Physical Exam
-
Vital Signs:
Vital Signs
Temp Pulse Resp BP Pulse Ox
98.0 F 94 18 130/54 100
08/20/24 11:05 08/20/24 11:05 08/20/24 11:05 08/20/24 11:05 08/20/24 11:05
Cardiovascular:: Regular rate and rhythm
Respiratory:: Bilateral: CTA
Lung Excursion:: Normal
Abdomen:: Distended, Nontender and Soft
Bowel Sounds:: Normal
Extremity Edema:: +1: Bilateral:
[2024-08-20] MEDS: FLUSH (NSS) 1 FLUSH IV ×2 (14:37→17:56)
[2024-08-20] MEDS: KCL 40 MEQ PO (16:12)
[2024-08-20] MEDS: NULYTELY SOLUTION 4 LITERS PO (16:13)
--- NOTE | 2024-08-20 16:53 | W.PN.UPDATE ---
Update Note
Progress Note Update
I saw and evaluated the patient. I reviewed the resident�s note and agree with findings and plan as documented in the resident�s note.
1. Acute blood loss anemia , melena suspected from epistaxis versus other source -patient had recent Mohs surgery and had a fall causing further injury on the area. At admission was noted to having some epistaxis and was seen by ENT.
GI reevaluated in light of on and off ongoing bleeding patient is planned to having push enteroscopy and colonoscopy tomorrow
Continue following hemoglobin with further transfusion if hbg drifts down close to 7
2. Nausea/Vomiting -improved today with anti-emetics therapy.
3. TYSON - Improving . suspected hypovolemia/blood loss related. Hold Lasix/Aldactone. Question of hepatorenal syndrome as well and got albumin 1g/kg x2 doses. SBP >100 and continue to monitor.
4. Acute on chronic hyponatremia -improved. Likely on chronic hyponatremia with cirrhosis. Acute exacerbation likely due to ADH excess from blood loss. Urine Na < 5. Uosm 440 only.
5. Recurrent ascites -status post paracentesis of 6 L of fluid, got 37.5mg of albumin
6. Mohs surg at tip of nose - continue to have minimal oozing. continue pressure bandage.
DVTPPX -scd
Full code
[2024-08-20] MEDS: ROCEPHIN 1000 MG IV (21:51)
[2024-08-20] MEDS: STERILE WATER FOR INJECTION 10 ML IV (21:51)
[2024-08-21] VITALS (7 sets, daily range): BP systolic 109–132; BP diastolic 54–73
--- NOTE | 2024-08-21 06:12 | PTCARENOTE ---
Pt drank approx 80% of golytely. States that bowel movements are almost clear. Pt did also state that he ate some red licorice earlier in the night while doing the prep despite instructions about clear liquds and bowel prep.
[2024-08-21 06:44] LABS: INR 1.64; PT 19.2 Sec (11.4-14.6)
[2024-08-21 07:11] LABS: ALT (SGPT) 22 U/L (0-50); AST (SGOT) 43 U/L (17-59); Albumin 2.7 g/dl (3.5-5.0); Alkaline Phosphatase 41 U/L (38-126); Blood Urea Nitrogen 29 mg/dl (9-20); Calcium 8.4 mg/dl (8.4-10.2); Carbon Dioxide 22 mmol/L (22-30); Chloride 110 mmol/L (98-107); Estimated Creatinine Clearance 80 ml/min; Glucose 79 mg/dl (70-99); Potassium 3.7 mmol/L (3.5-5.1); Sodium 139 mmol/L (135-145); Total Bilirubin 2.7 mg/dl (0.2-1.3); Total Protein 4.4 g/dl (6.3-8.2); eGFR > 60.00
[2024-08-21 07:36] LABS: Hematocrit 20.8 % (39.0-52.0); Mean Corp Hgb Conc. 33.7 g/dL (33.0-37.0); Mean Corpuscular Hgb 29.9 pg (27.0-31.0); Mean Corpuscular Volume 88.9 fL (80.0-94.0); Mean Platelet Volume 9.5 fL (7.4-10.4); Platelet Count 49 10^3/uL (130-400); Red Blood Cell Count 2.34 10^6/uL (4.70-6.10); Red Cell Dist. Width 15.8 % (11.5-14.5); White Blood Cell Count 3.2 10^3/uL (4.8-10.8)
--- NOTE | 2024-08-21 07:40 | W.PN.HOSP.TC ---
Addendum entered and electronically signed by Sai Mariano MD 08/21/24 14:41:
I saw and evaluated the patient. I reviewed the resident�s note and agree with findings and plan as documented in the resident�s note.
1. Acute blood loss anemia , melena suspected from epistaxis versus other source -patient had recent Mohs surgery and had a fall causing further injury on the area. At admission was noted to having some epistaxis and was seen by ENT.
Patient had incomplete bowel prep and EGD/colonoscopy postponed for tomorrow
Patient can be maintained on clear liquid diet for the day and to be n.p.o. past midnight
Patient hemoglobin has dropped to 7, will repeat 1 unit of blood transfusion ordered today. Reported burgundy/brown stool yesterday by nursing staff
2. Nausea/Vomiting -improved today with anti-emetics therapy.
3. TYSON - Improving . suspected hypovolemia/blood loss related. Hold Lasix/Aldactone. Question of hepatorenal syndrome as well and got albumin 1g/kg x2 doses. SBP >100 and continue to monitor.
4. Acute on chronic hyponatremia -improved. Likely on chronic hyponatremia with cirrhosis. Acute exacerbation likely due to ADH excess from blood loss. Urine Na < 5. Uosm 440 only.
5. Recurrent ascites -status post paracentesis of 6 L of fluid, got 37.5mg of albumin
6. Mohs surg at tip of nose - continue to have minimal oozing. continue pressure bandage.
DVTPPX -scd
Full code
Original Note:
Today's Communication/Plan
-
.
Assessment / Plan
Assessment / Plan
Mr. Cortez Mazariegos is a 59yoM pmh cirrhosis, recurrent sbp, hepatic encephalopathy, htn, chronic anemia, hyponatremia was admitted 08/17 for worsening outpatient labs.
Melena
Anemia
- transfuse for Hb>7
- prophylactic ceftriaxone
- PPI BID
- follow cbc
- gi consulted - no plan for endoscopy at this time
- bleeding scan cancelled due to resolution of melena
- enteroscopy and colonoscopy was scheduled for today. If negative, consider outpt capsule endo.
- did not finish colonoscopy prep. Rescheduled for tw
TYSON
- u/a: uti likely
- urine cx: yeast
- ivf, abx
- received albumin 1g/kg x2days
- nephro consulted
- follow bmp
Facial trauma secondary to fall s/p Mohs procedure
- procedure 08/14
- no acute intracranial abnormalities, facial bone abnormalities on CT
- monitor for bleeding
- ent consulted - no recommendations at this time
Hypotonic Hyponatremia, chronic
- Urine Osm 439, Urine Cr 137.3, Urine Na<5
- likely secondary to low effective arterial blood volume secondary to cirrhosis.
- salt, water restriction
Recurrent ascites secondary to portal hypertension secondary to end stage liver disease
- last paracentesis 08/20. 6L clear yellow ascitic fluid. No SBP
- received 37.5mg albumin
- gets weekly paracentesis on Mondays
- not a tips candidate at this time
- RUQ u/s: Cirrhotic appearance of the liver with large volume ascites.
- abdomen CT: Cirrhotic appearing liver with large volume ascites, upper abdominal collateral vessels and splenomegaly. Right inguinal hernia and umbilical hernia containing ascites fluid. Unchanged 9 mm calculus in the proximal left ureter. No
hydronephrosis.
- will be evaluated 08/27 at [place] for possible liver transplant
Hepatic encephalopathy
- at baseline
- cont lactulose, rifaxime
HTN
- resume lasix, aldactone
DVT prophylaxis
- SCDs
Code status: FULL CODE
Diet: clear liquids, npo after midnight
Anticipated Discharge: 24 - 48 hours
Subjective/Interval History
-
Date of Service: August 21, 2024
Mr. Cortez Mazariegos is a 59yoM pmh cirrhosis, recurrent sbp, hepatic encephalopathy, htn, chronic anemia, hyponatremia was admitted 08/17 for worsening outpatient labs. No bleeding other than from the nose. Did not sleep well due to prep for
colonoscopy. Did not finish prep last night, working on it this morning.
Objective Data
-
Labs:
Laboratory Results
08/21/24
05:46
WBC 3.2 L
Hgb 7.0 L
Hct 20.8 L*
Plt Count 49 L D
PT 19.2 H
INR 1.64
Sodium 139
Potassium 3.7
Chloride 110 H
Carbon Dioxide 22
BUN 29 H
Creatinine 1.0
Glucose 79
Calcium 8.4
Total Bilirubin 2.7 H
AST 43
ALT 22
Alkaline Phosphatase 41
Vital Signs:
Vital Signs
Temp Pulse Resp BP Pulse Ox
98.4 F 92 18 105/61 100
08/20/24 22:58 08/20/24 22:58 08/20/24 22:58 08/20/24 22:58 08/20/24 22:58
I&O
08/20/24 08/21/24 08/22/24
06:59 06:59 06:59
Intake Total 1048 / 1048 1350 / 1350
Output Total 300 / 300 100 / 100
Balance 748 / 748 1250 / 1250
Review of Systems
-
History Source: Patient
Constitutional: Reports Sleep Disturbance; Denies Fever or Chills
EENT: Reports Bloody Nose
Respiratory: Denies Cough, Hemoptysis or Trouble Breathing
Cardiac: Reports No Symptoms
Abdomen/GI: Denies Nausea, Vomiting, Diarrhea, Constipated, Bloody Stools or Black Stools
Genitourinary: Reports No Symptoms
Musculoskeletal: Reports No Symptoms
Skin: Reports No Symptoms
Neuro: Reports No Symptoms
Hematologic / Lymphatic: Reports Bleeding (nose) and Bruising
Physical Exam
-
General: Appears Chronically Ill
HEENT: Normocephalic and Other (orbital ecchymosis, nasal bridge ecchymosis. Covered Mohs procedure. Dried blood from nose. scleral icterus)
Respiratory: Clear to Auscultation and Non Labored Respirations
Cardiac: Regular Rhythm and S1/S2
GI: Soft, Nontender, Nondistended and Normal Bowel Sounds
Musculoskeletal: No Clubbing, No Cyanosis and No Edema
Skin: Warm, Dry and Jaundice
Neuro: AO x 3
Psych: Calm
[2024-08-21] MEDS: ALDACTONE 25 MG PO (07:58)
[2024-08-21] MEDS: NSS (PRESERVATIVE FREE) 10 ML IV ×2 (07:58→20:50)
[2024-08-21] MEDS: PROTONIX IV 40 MG IV ×2 (07:58→20:50)
[2024-08-21] MEDS: FLUSH (NSS) 2 FLUSH IV (08:02)
[2024-08-21] MEDS: DUPHALAC/CHRONULAC 20 GRAMS PO ×3 (08:08→21:09)
[2024-08-21] MEDS: XIFAXAN 550 MG PO ×2 (08:08→20:51)
[2024-08-21] MEDS: SPIRIVA RESPIMAT 2.5 MCG 2 PUFF INH (08:32)
[2024-08-21] MEDS: SYMBICORT 160/4.5 MCG INHALER 2 PUFF INH ×2 (08:32→19:57)
[2024-08-21] MEDS: VITAMIN B1 100 MG PO (12:25)
[2024-08-21] MEDS: CITROMA 300 ML PO (12:26)
[2024-08-21] MEDS: FLUSH (NSS) 1 FLUSH IV ×2 (12:27→15:21)
--- NOTE | 2024-08-21 12:37 | W.PN.GI.CBS2 ---
Today's Communication / Plan
-
Continue golytle and mag citrate prep
Plan for Enteroscopy/colonoscopy tomorrow
Vit K oral today
Assessment / Plan
-
59-year-old male with a past medical history significant for decompensated liver cirrhosis secondary to hep C versus alcohol, well-known to our group with recurrent hospitalizations for hepatic encephalopathy and acute on chronic GI bleeding
secondary to portal hypertensive gastropathy, history of post polypectomy bleed, HCV status post treatment with Epclusa with SVR, CVA, hypertension, COPD, chronic thrombocytopenia, anxiety, who presented to the emergency room on with melena after
having recent MOHS procedure, fall with injury to his face without fracture however significant orbital ecchymosis and had significant epistaxis which he ingested on the evening of 08/14/24. He presents now with melena and Hgb of 6.9 from 7.6 from
outpatient infusion center after having paracentesis.
Patient complains of abdominal pain. He also reports some melena. He had CT Abdo yesterday without IV contrast which was largely nondiagnostic, but no acute findings. Hgb is up at 7.2 but he received about 4 units of blood so far. He is not as
conversant today and review of MAR shows lactulose was not given today because he was unable to take it. His recurrent drop in Hgb (as low as 5.6 on 06/2024) has occurred multiple times in the past along with melena, and he had multiple endoscopic
evaluations, most recent EGD on 06/2024 ([facility]) and colonoscopy on 05/2024 (retained OVESCO clip in hep flx from prev brisk bleeding site).
Impression:
Melena/maroon blood-> patient with history of portal hypertensive gastropathy. Also with epistaxis.
Chronic anemia baseline in the 7 range-> currently hemoglobin 8.4 after receiving 4 units of blood.
Decompensated alcoholic/hepatitis C liver cirrhosis
Chronic thrombocytopenia
Ascites, requiring biweekly paracentesis-> on Lasix 40 mg daily and Aldactone 50 g daily
Paracentesis 08/20 neg for SPB
Chronic hyponatremia
Hyperbilirubinemia
Hepatic encephalopathy-> on lactulose 20 g p.o. 3 times daily and Xifaxan 550 mg twice daily
Alpha-fetoprotein 30 in March 2024 prior was in the 10-12 range
History of hepatitis C status posttreatment with Epclusa with SVR
Portal hypertension
Plan:
-Continue clear liquid, NPO at MN
-Continue Pantoprazole 40 mg IV twice daily
-Push enteroscopy/colonoscopy rescheduled to tomorrow 08/22 as he did not complete prep yet
-C/w IV CTX
-Continue Lactulose and Xifaxan
-Aldactone/Lasix as per renal
-Trend daily weight
-Trial of oral vit K
Primary team updated. Will follow with you
Subjective
Subjective
Date of Service: August 21, 2024
He did not tolerate golytle prep and not clear this AM. His colonoscopy/enteroscopy is held. No further bleeding from nose. He has some chronic abd pain.
Objective
Data Reviewed
Laboratory Data:
Laboratory Results
08/21/24 05:46
08/21/24 05:46
Laboratory Results
PT 19.2 Sec (11.4-14.6) H 08/21/24 05:46
INR 1.64 08/21/24 05:46
APTT 40.8 Sec (23.4-35.0) H 08/18/24 22:06
Magnesium 3.2 mg/dl (1.6-2.3) H 08/18/24 22:06
Total Bilirubin 2.7 mg/dl (0.2-1.3) H 08/21/24 05:46
AST 43 U/L (17-59) 08/21/24 05:46
ALT 22 U/L (0-50) 08/21/24 05:46
Alkaline Phosphatase 41 U/L (38-126) 08/21/24 05:46
Vital Signs and I&O:
Vital Signs
Temp Pulse Resp BP Pulse Ox
98.7 F 74 16 123/58 96
08/21/24 07:00 08/21/24 08:37 08/21/24 08:37 08/21/24 07:00 08/21/24 08:37
I&O
08/20/24 08/21/24 08/22/24
06:59 06:59 06:59
Intake Total 1048 / 1048 1350 / 1350
Output Total 300 / 300 100 / 100
Balance 748 / 748 1250 / 1250
Physical Exam
Physical Exam
GEN: No acute distress, conversant, pleasant
HEENT: +icteric, extraocular movements intact, clear oropharynx without exudates, deep ecchymosis around eyes and nose
GI: soft, mildly-distended, not tender to palpation, normal active bowel sounds, no hepatosplenomegaly
EXT: warm, well perfused, 1+ edema bilaterally diffuse tattoos
NEURO: AAOx3, non-focal
[2024-08-21] MEDS: DULCOLAX 10 MG PO (13:35)
[2024-08-21] MEDS: ZOFRAN 4 MG IV (15:20)
--- NOTE | 2024-08-21 15:52 | W.PN.NEPH.PH ---
Today's Communication / Plan
-
observe
still holding lasix for now
Assessment/Plan
-
Assessment
TYSON
ESLD
Ascites
Melena anemia
COPD
Thrombocytopenia
Hyponatremia
Plan
Transfusing today
For endoscopy and colonoscopy tomorrow re: continued blood loss
restarted aldactone
Electrolytes stable, acute kidney injury resolved
TYSON was likely due to acute anemia there may be also some contribution from decompensated liver failure from the GI bleed
lasix still held , weights stable
Follow BMP
Continue prior salt and fluid restriction
-
-
Date of Service: August 21, 2024
CC / HPI / ROS
-
Chief Complaint:
TYSON
History of Present Illness:
Hgb down ot 7.0
hemodynamically stable
TYSON/Cr down to 1
K low 3.7
Na up to 139
Review of Systems:
RLQ pain
no CP/SOB
Labs
-
Labs:
WBC 3.2 10^3/uL (4.8-10.8) L 08/21/24 05:46
RBC 2.34 10^6/uL (4.70-6.10) L 08/21/24 05:46
Hgb 7.0 g/dL (13.0-18.0) L 08/21/24 05:46
Hct 20.8 % (39.0-52.0) L* 08/21/24 05:46
Plt Count 49 10^3/uL (130-400) L D 08/21/24 05:46
Sodium 139 mmol/L (135-145) 08/21/24 05:46
Potassium 3.7 mmol/L (3.5-5.1) 08/21/24 05:46
Chloride 110 mmol/L (98-107) H 08/21/24 05:46
Carbon Dioxide 22 mmol/L (22-30) 08/21/24 05:46
BUN 29 mg/dl (9-20) H 08/21/24 05:46
Creatinine 1.0 mg/dL (0.7-1.3) 08/21/24 05:46
eGFR > 60.00 08/21/24 05:46
Glucose 79 mg/dl (70-99) 08/21/24 05:46
Calcium 8.4 mg/dl (8.4-10.2) 08/21/24 05:46
Albumin 2.7 g/dl (3.5-5.0) L 08/21/24 05:46
Physical Exam
-
Vital Signs:
Vital Signs
Temp Pulse Resp BP Pulse Ox
98.7 F 86 20 109/54 99
08/21/24 13:30 08/21/24 13:30 08/21/24 13:30 08/21/24 13:30 08/21/24 12:41
Cardiovascular:: Regular rate and rhythm
Respiratory:: Bilateral: CTA
Lung Excursion:: Normal
Abdomen:: Distended, Nontender and Soft
Bowel Sounds:: Normal
Extremity Edema:: None: Bilateral:
Stevens Catheter: No
[2024-08-21] MEDS: ULTRAM 50 MG PO (16:16)
--- NOTE | 2024-08-21 17:19 | CM ---
Spoke with pt in room .
He is having colonoscopy and having prep now.
Pt requested [facility] [place] accepted pt . Cherise will drive him home at [place].
PLAN Home with [facility]
--- NOTE | 2024-08-21 19:30 | PTCARENOTE ---
Addendum entered by Billy Arguelles RN 08/22/24 04:55:
RN notified by PCT that pt was on phone discussing with family on speaker that pictures of pts room and staff were taken and that stem roller or crusher operator will be notified. Workers Compensation Coordinator Tonya Yee notified. Workers Compensation Coordinator spoke to pt at bedside.
Addendum entered by Billy Arguelles RN 08/22/24 04:36:
Pt used call caballero. Upon singer songwriter answering call caballero, pt claims the bed is not inflating/ deflating at all. Client Care Coordinator and another nurse observed [facility] air mattress working properly inflating and assured pt the bed was working properly. Pt stated he
still was not satisfied. Pt offered static air overlay on bed- pt agreeable. Static overlay placed, pt says, 'this is much better.' Pt called nurse back into room about 10 minutes later stating, 'this thing is deflated already.' Overlay inspected by
RN, overlay still inflated- singer songwriter assured pt that overlay did not deflate. Pt requested overlay to be inflated again- overlay reinflated 3 times over the course of 30 minutes per request by pt. Pt finally stated, 'I feel this is better, this will
do.' Call caballero placed within reach of pt, told to call singer songwriter if pt needs anything.
Addendum entered by Billy Arguelles RN 08/22/24 04:29:
Upon entering pts room with new bed, pt verbally abusive to staff stating, 'this is ridiculous this should not have taken this fucking long. All you people act like you don't know what to do and just stand around shaking your heads. You people are
un- fucking believable.' This singer songwriter a tech and another RN reassured pt that shift change had just occurred and we are trying to fix any problems pt might be experiencing with current bed. Pt bed switched with new bed. Pt states now more
comfortable.
Original Note:
Client Care Coordinator made aware by community relations rep during change of shift report that pts was on the phone. When call answered stated she wanted pts bed to be changed- made aware singer songwriter is in the middle of report and once a bed is found to be available
the switch will be made. Pts continues to say, 'this is unacceptable, we were told the same thing 6 hours ago I will be contacting risk management this is ridiculous.' Client Care Coordinator reassured pts again once singer songwriter is done report and rounds the
bed situation will be handled as soon as possible. 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
[2024-08-21] MEDS: ROCEPHIN 1000 MG IV (21:09)
[2024-08-21] MEDS: STERILE WATER FOR INJECTION 10 ML IV (21:09)
[2024-08-21] MEDS: DESYREL 50 MG PO (22:32)
[2024-08-22 04:30] VITALS: BMI 23.6
--- NOTE | 2024-08-22 05:48 | DOWNTIME ---
There was a [employer] Client Broaching Machine Operator Downtime on 08/22/2024 from 0100 to 08/22/2024 at 0355. Downtime documentation of patient's care, including medication administrations, has been reconciled in the electronic record per guidelines. Refer to the
patient's paper chart under the miscellaneous tab to see printed paper medication records and downtime forms.
--- NOTE | 2024-08-22 06:14 | PTCARENOTE ---
Pt requested RN and PCT not to remove stool from commode- per pt wants to keep it for next shift to see
[2024-08-22 07:00] VITALS: BP 115/53
[2024-08-22] MEDS: SPIRIVA RESPIMAT 2.5 MCG INH (08:12)
[2024-08-22] MEDS: SYMBICORT 160/4.5 MCG INHALER INH (08:13)
[2024-08-22] MEDS: ALDACTONE 25 MG PO (08:13)
[2024-08-22] MEDS: XIFAXAN 550 MG PO ×2 (08:13→20:57)
[2024-08-22] MEDS: VITAMIN B1 100 MG PO (08:15)
[2024-08-22] MEDS: DUPHALAC/CHRONULAC 20 GRAMS PO ×3 (08:16→22:27)
[2024-08-22] MEDS: NSS (PRESERVATIVE FREE) 10 ML IV ×2 (08:18→20:57)
[2024-08-22] MEDS: PROTONIX IV 40 MG IV ×2 (08:18→20:57)
--- NOTE | 2024-08-22 08:27 | W.PN.HOSP.TC ---
Today's Communication/Plan
-
.
Assessment / Plan
Assessment / Plan
Mr. Cortez Mazariegos is a 59yoM pmh cirrhosis, recurrent sbp, hepatic encephalopathy, htn, chronic anemia, hyponatremia was admitted 08/17 for worsening outpatient labs.
Melena
Anemia
- transfuse for Hb>7
- prophylactic ceftriaxone
- PPI BID
- follow cbc
- gi consulted - no plan for endoscopy at this time
- bleeding scan cancelled due to resolution of melena
- enteroscopy: normal esophagus, severe portal htn gastropathy w active bleeding treated w argon plasma coagulation, 2cm hiatal hernia. May benefit f/u egd in 4-8weeks for APC
- colonoscopy: nonbleeding internal hemorrhoids, diverticulosis, one 8mm polyp in sigmoid colon, old ovesco clip in ascending colon. Repeat 6-12 months
Nausea, Vomiting
- improved
- antiemetics
TYSON
- resolved
- received albumin 1g/kg x2 doses
- likely secondary to hypovolemia/blood loss
- hold lasix, aldactone
- nephro consulted
- follow bmp
Facial trauma secondary to fall s/p Mohs procedure
- procedure 08/14
- no acute intracranial abnormalities, facial bone abnormalities on CT
- monitor for bleeding
- ent consulted - no recommendations at this time
Hypotonic Hyponatremia, acute on chronic
- Urine Osm 439, Urine Cr 137.3, Urine Na<5
- likely secondary to low effective arterial blood volume secondary to cirrhosis. Acute exacerbation likely secondary to ADH excess from blood loss
- salt, water restriction
Recurrent ascites secondary to portal hypertension secondary to end stage liver disease
- last paracentesis 08/20. 6L clear yellow ascitic fluid. No SBP
- received 37.5mg albumin
- paracentesis each Tuesday
- abdomen CT: Cirrhotic appearing liver with large volume ascites, upper abdominal collateral vessels and splenomegaly. Right inguinal hernia and umbilical hernia containing ascites fluid. Unchanged 9 mm calculus in the proximal left ureter. No
hydronephrosis.
- daily weights
- will be evaluated 08/27 at [place] for possible liver transplant
Hepatic encephalopathy
- at baseline
- cont lactulose, rifaxime
HTN
- resume lasix, aldactone
DVT prophylaxis
- SCDs
Code status: FULL CODE
Diet: regular
Anticipated Discharge: 24 - 48 hours
Subjective/Interval History
-
Date of Service: August 22, 2024
Mr. Cortez Mazariegos is a 59yoM pmh cirrhosis, recurrent sbp, hepatic encephalopathy, htn, chronic anemia, hyponatremia was admitted 08/17 for worsening outpatient labs. +bloody stools last night. +N, -V.
Objective Data
-
Labs:
Laboratory Results
08/22/24
08:22
WBC Pending
Hgb Pending
Hct Pending
Plt Count Pending
PT Pending
INR Pending
Sodium Pending
Potassium Pending
Chloride Pending
Carbon Dioxide Pending
BUN Pending
Creatinine Pending
Glucose Pending
Calcium Pending
Total Bilirubin Pending
AST Pending
ALT Pending
Alkaline Phosphatase Pending
Vital Signs:
Vital Signs
Temp Pulse Resp BP Pulse Ox
100.4 F H 79 18 115/53 99
08/22/24 07:00 08/22/24 07:00 08/22/24 07:00 08/22/24 07:00 08/22/24 07:00
I&O
08/21/24 08/22/24 08/23/24
06:59 06:59 06:59
Intake Total 1350 / 1350 2109
Output Total 100 / 100
Balance 1250 / 1250 2109
Review of Systems
-
History Source: Patient
All other systems: Reviewed and negative
Constitutional: Reports Fever and Chills
Respiratory: Reports No Symptoms
Cardiac: Reports No Symptoms
Abdomen/GI: Reports Nausea and Bloody Stools; Denies Vomiting, Diarrhea or Constipated
Genitourinary: Reports No Symptoms
Skin: Reports No Symptoms
Physical Exam
-
General: Appears Chronically Ill
HEENT: Normocephalic and Other (orbital ecchymosis, nasal bridge ecchymosis. Dried blood from nose. scleral icterus)
Respiratory: Clear to Auscultation and Non Labored Respirations
Cardiac: Regular Rhythm and S1/S2
GI: Soft, Nontender, Nondistended and Normal Bowel Sounds
Musculoskeletal: No Clubbing and No Edema
Skin: Jaundice
Neuro: Awake and AO x 3
Psych: Calm
[2024-08-22 09:29] LABS: Hematocrit 22.1 % (39.0-52.0); Hemoglobin 7.7 g/dL (13.0-18.0); Mean Corp Hgb Conc. 34.8 g/dL (33.0-37.0); Mean Corpuscular Hgb 30.7 pg (27.0-31.0); Platelet Count 44 10^3/uL (130-400); Red Blood Cell Count 2.51 10^6/uL (4.70-6.10); Red Cell Dist. Width 15.8 % (11.5-14.5); White Blood Cell Count 3.1 10^3/uL (4.8-10.8)
[2024-08-22 09:30] VITALS: BP 114/56; BP 115/60; PULSE 75; PULSE 92; O2SAT 96
[2024-08-22] MEDS: TYLENOL 650 MG PO ×2 (09:31→21:04)
[2024-08-22 09:34] LABS: INR 1.73; PT 20.4 Sec (11.4-14.6)
[2024-08-22 09:35] VITALS: BP 114/56; BP 115/60; PULSE 77; O2SAT 96
[2024-08-22 10:19] LABS: ALT (SGPT) 24 U/L (0-50); AST (SGOT) 46 U/L (17-59); Albumin 2.8 g/dl (3.5-5.0); Alkaline Phosphatase 44 U/L (38-126); Blood Urea Nitrogen 23 mg/dl (9-20); Calcium 8.6 mg/dl (8.4-10.2); Carbon Dioxide 20 mmol/L (22-30); Chloride 110 mmol/L (98-107); Estimated Creatinine Clearance 89 ml/min; Glucose 90 mg/dl (70-99); Potassium 3.8 mmol/L (3.5-5.1); Sodium 139 mmol/L (135-145); Total Bilirubin 3.3 mg/dl (0.2-1.3); Total Protein 4.6 g/dl (6.3-8.2); eGFR > 60.00
--- NOTE | 2024-08-22 12:18 | W.PN.NEPH.PH ---
Today's Communication / Plan
-
follow BMP
Assessment/Plan
-
Assessment
TYSON
ESLD
Ascites
Melena anemia
COPD
Thrombocytopenia
Hyponatremia
Plan
For endoscopy and colonoscopy
continue aldactone
lasix still held
Follow BMP
Continue salt and fluid restriction
-
-
Date of Service: August 22, 2024
CC / HPI / ROS
-
Chief Complaint:
TYSON
History of Present Illness:
Hgb low 7.7
hemodynamically stable
TYSON/Cr down to 1
K stable 3.8
Na stable
low grade temp this am
Review of Systems:
RLQ pain
no CP/SOB
Labs
-
Labs:
WBC 3.1 10^3/uL (4.8-10.8) L 08/22/24 08:22
RBC 2.51 10^6/uL (4.70-6.10) L 08/22/24 08:22
Hgb 7.7 g/dL (13.0-18.0) L 08/22/24 08:22
Hct 22.1 % (39.0-52.0) L 08/22/24 08:22
Plt Count 44 10^3/uL (130-400) L 08/22/24 08:22
Sodium 139 mmol/L (135-145) 08/22/24 08:22
Potassium 3.8 mmol/L (3.5-5.1) 08/22/24 08:22
Chloride 110 mmol/L (98-107) H 08/22/24 08:22
Carbon Dioxide 20 mmol/L (22-30) L 08/22/24 08:22
BUN 23 mg/dl (9-20) H 08/22/24 08:22
Creatinine 0.9 mg/dL (0.7-1.3) 08/22/24 08:22
eGFR > 60.00 08/22/24 08:22
Glucose 90 mg/dl (70-99) 08/22/24 08:22
Calcium 8.6 mg/dl (8.4-10.2) 08/22/24 08:22
Albumin 2.8 g/dl (3.5-5.0) L 08/22/24 08:22
Physical Exam
-
Vital Signs:
Vital Signs
Temp Pulse Resp BP Pulse Ox
100.4 F H 79 18 115/53 99
08/22/24 07:00 08/22/24 07:00 08/22/24 07:00 08/22/24 07:00 08/22/24 08:35
Cardiovascular:: Regular rate and rhythm
Respiratory:: Bilateral: Coarse
Lung Excursion:: Normal
Abdomen:: Nontender and Soft
Bowel Sounds:: Normal
Extremity Edema:: None: Bilateral:
--- NOTE | 2024-08-22 12:35 | PTCARENOTE ---
08/22- Patient returned to unit from GI Lab without issue. AAOX3; Skin CDI; +pulses/sensationX4; Patient denies any pain or issues at this time except wanting something to drink. Diet order Acknowledged. Bed and Chair alarm active. Patient sat
in chair for lunch.
--- NOTE | 2024-08-22 13:24 | CM ---
rent control office manager reviewed patient's chart and met with patient and spouse, and physical therapy are recommending skilled options reviewed with patient and spouse and patient's spouse has selected [facility], referral sent to [facility].
Plan; Skilled placement at [facility].
[2024-08-22 13:25] VITALS: BP 127/63
[2024-08-22 14:50] VITALS: BP 140/70
[2024-08-22] MEDS: ULTRAM 50 MG PO (18:25)
[2024-08-22] MEDS: SYMBICORT 160/4.5 MCG INHALER 2 PUFF INH (20:26)
--- NOTE | 2024-08-22 21:49 | PTCARENOTE ---
Pt insisting on taking a shower today. Pt has been told several times that it wasn't safe for him to shower. Pt is a fall risk, is having pain to legs and recently got pain medication. Pt stated 'he was going to anyway'. Pt offered to be washed up
using wipes and he declined. Nursing supervisor payroll called and came to see patient. Pt then agreed to a bedside bath. All supplies given to patient and his daughter and PCT helped the patient bath and change his clothes. Nursing supervisor payroll also
placed new linens on bed.
--- NOTE | 2024-08-22 21:54 | PTCARENOTE ---
Pt given tramadol for pain to his bilateral hands and bilateral legs. Pt states his hands and legs are stiff and aching. One hour after tramadol given patient said it didn't help and he still had 9/10 pain. Pt was asking for IV dilaudid that he
got 'the other day'. CATTLE KILLER notified and ordered tylenol. I advised patient tylenol was ordered and gave to patient at that time.
--- NOTE | 2024-08-22 22:21 | PTCARENOTE ---
Pt states his pain is 'good' now after tylenol and scds placed on legs . Pt went to bathroom and will now get into bed for the night.
[2024-08-22] MEDS: STERILE WATER FOR INJECTION 10 ML IV (22:28)
[2024-08-22] MEDS: ROCEPHIN 1000 MG IV (22:28)
[2024-08-22 23:05] VITALS: BP 122/51
[2024-08-22] MEDS: DESYREL 50 MG PO (23:29)
[2024-08-22] MEDS: ANESTHETIC LOZENGE 1 LOZENGE PO (23:29)
[2024-08-23] MEDS: ANESTHETIC LOZENGE 1 LOZENGE PO ×3 (03:27→13:05)
[2024-08-23 06:00] VITALS: BMI 24.4
[2024-08-23 06:55] LABS: INR 1.74; PT 20.5 Sec (11.4-14.6)
[2024-08-23 07:15] VITALS: BP 115/52
[2024-08-23 07:19] LABS: Hematocrit 20.7 % (39.0-52.0); Hemoglobin 7.2 g/dL (13.0-18.0); Mean Corp Hgb Conc. 34.8 g/dL (33.0-37.0); Mean Corpuscular Hgb 31.3 pg (27.0-31.0); Mean Platelet Volume 10.5 fL (7.4-10.4); Platelet Count 40 10^3/uL (130-400); Red Cell Dist. Width 15.9 % (11.5-14.5); White Blood Cell Count 3.5 10^3/uL (4.8-10.8)
[2024-08-23 07:22] LABS: ALT (SGPT) 23 U/L (0-50); AST (SGOT) 42 U/L (17-59); Albumin 2.4 g/dl (3.5-5.0); Alkaline Phosphatase 111 U/L (38-126); Blood Urea Nitrogen 23 mg/dl (9-20); Calcium 8.4 mg/dl (8.4-10.2); Carbon Dioxide 17 mmol/L (22-30); Chloride 106 mmol/L (98-107); Estimated Creatinine Clearance 73 ml/min; Glucose 116 mg/dl (70-99); Potassium 3.5 mmol/L (3.5-5.1); Sodium 132 mmol/L (135-145); Total Bilirubin 1.5 mg/dl (0.2-1.3); Total Protein 4.3 g/dl (6.3-8.2); eGFR > 60.00
[2024-08-23] MEDS: PROTONIX IV 40 MG IV ×2 (07:50→20:07)
[2024-08-23] MEDS: NSS (PRESERVATIVE FREE) 10 ML IV ×2 (07:50→20:08)
[2024-08-23] MEDS: VITAMIN B1 100 MG PO (07:50)
[2024-08-23] MEDS: XIFAXAN 550 MG PO ×2 (07:50→20:08)
[2024-08-23] MEDS: ALDACTONE 25 MG PO (07:50)
[2024-08-23] MEDS: DUPHALAC/CHRONULAC 20 GRAMS PO ×3 (07:51→21:37)
[2024-08-23] MEDS: SPIRIVA RESPIMAT 2.5 MCG 2 PUFF INH (08:01)
[2024-08-23] MEDS: SYMBICORT 160/4.5 MCG INHALER 2 PUFF INH (08:01)
--- NOTE | 2024-08-23 08:35 | W.PN.HOSP.TC ---
Addendum entered and electronically signed by Sai Mariano MD 08/23/24 13:50:
1. Acute blood loss anemia
Melena
patient had recent Mohs surgery of nose and had a fall causing further injury on the area. At admission was noted to having some epistaxis and was seen by ENT. Was ruled initial melena likely from ingested blood
Despite no clear recurrent epistaxis patient was having further blood loss anemia and requiring blood transfusion
EGD showing portal gastropathy with bleeding vessel, was cauterized with APC
Colonoscopy showing poor prep, old hemorrhoids. Diverticular disease. Old ovesco clip in ascending colon.
Patient hemoglobin 7.2 today, 1 unit of PRBC ordered
patient to follow-up with primary oil analyst/GI Dr. Dan on Tuesday
2. Nausea/Vomiting
-improved today with anti-emetics therapy.
3. TYSON - Resolved . suspected hypovolemia/blood loss related.
back on Lasix/Aldactone. Question of hepatorenal syndrome as well and got albumin 1g/kg x2 doses. SBP >100 and continue to monitor.
4. Acute on chronic hyponatremia -improved.
Likely on chronic hyponatremia with cirrhosis.
Acute exacerbation likely due to ADH excess from blood loss. Urine Na < 5. Uosm 440 only.
5. Recurrent ascites
-status post paracentesis of 6 L of fluid, got 37.5mg of albumin
6. Mohs surg at tip of nose
-oozing stopped at this point.
DVTPPX -scd
Full code
Care plan discussed with patient spouse and patient for discharge tomorrow morning
Original Note:
Today's Communication/Plan
-
.
Assessment / Plan
Assessment / Plan
Mr. Cortez Mazariegos is a 59yoM pmh cirrhosis, recurrent sbp, hepatic encephalopathy, htn, chronic anemia, hyponatremia was admitted 08/17 for worsening outpatient labs.
Melena
Anemia
- transfuse for Hb>7
- prophylactic ceftriaxone
- PPI BID
- follow cbc
- gi consulted - no plan for endoscopy at this time
- bleeding scan cancelled due to resolution of melena
- enteroscopy: normal esophagus, severe portal htn gastropathy w active bleeding treated w argon plasma coagulation, 2cm hiatal hernia. May benefit f/u egd in 4-8weeks for APC
- colonoscopy: nonbleeding internal hemorrhoids, diverticulosis, one 8mm polyp in sigmoid colon, old ovesco clip in ascending colon. Repeat 6-12 months
Sore throat
- lozenges
Nausea, Vomiting
- improved
- antiemetics
TYSON
- resolved
- received albumin 1g/kg x2 doses for concern of hepatorenal syndrome
- likely secondary to hypovolemia/blood loss
- hold lasix, aldactone
- nephro consulted
- follow bmp
Facial trauma secondary to fall s/p Mohs procedure
- procedure 08/14
- no acute intracranial abnormalities, facial bone abnormalities on CT
- monitor for bleeding
- ent consulted - no recommendations at this time
Hypotonic Hyponatremia, acute on chronic
- improved
- Urine Osm 439, Urine Cr 137.3, Urine Na<5
- likely secondary to low effective arterial blood volume secondary to cirrhosis. Acute exacerbation likely secondary to ADH excess from blood loss
- salt, water restriction
Recurrent ascites secondary to portal hypertension secondary to end stage liver disease
- last paracentesis 08/20. 6L clear yellow ascitic fluid. No SBP
- received 37.5mg albumin
- paracentesis each Tuesday
- abdomen CT: Cirrhotic appearing liver with large volume ascites, upper abdominal collateral vessels and splenomegaly. Right inguinal hernia and umbilical hernia containing ascites fluid. Unchanged 9 mm calculus in the proximal left ureter. No
hydronephrosis.
- daily weights
- will be evaluated 08/27 at [place] for possible liver transplant
Hepatic encephalopathy
- at baseline
- cont lactulose, rifaxime
Hyperbilirubinemia
- improved
- follow bilirubin
HTN
- resume lasix, aldactone
DVT prophylaxis
- SCDs
Code status: FULL CODE
Diet: regular
Anticipated Discharge: Within 24 hours
Subjective/Interval History
-
Date of Service: August 23, 2024
Mr. Cortez Mazariegos is a 59yoM pmh cirrhosis, recurrent sbp, hepatic encephalopathy, htn, chronic anemia, hyponatremia was admitted 08/17 for worsening outpatient labs. Overall feels well. Has a sore throat from the procedures yesterday.
Objective Data
-
Labs:
Laboratory Results
08/23/24
05:53
WBC 3.5 L
Hgb 7.2 L
Hct 20.7 L*
Plt Count 40 L
PT 20.5 H
INR 1.74
Sodium 132 L
Potassium 3.5
Chloride 106
Carbon Dioxide 17 L
BUN 23 H
Creatinine 1.1
Glucose 116 H
Calcium 8.4
Total Bilirubin 1.5 H D
AST 42
ALT 23
Alkaline Phosphatase 111
Vital Signs:
Vital Signs
Temp Pulse Resp BP Pulse Ox
99.6 F 86 16 115/52 99
08/23/24 07:15 08/23/24 08:06 08/23/24 08:06 08/23/24 07:15 08/23/24 08:06
I&O
08/22/24 08/23/24 08/24/24
06:59 06:59 06:59
Intake Total 2109 960 / 960
Balance 2109 960 / 960
Review of Systems
-
History Source: Patient
All other systems: Reviewed and negative
Constitutional: Reports No Symptoms
EENT: Reports Sore Throat
Respiratory: Reports No Symptoms
Cardiac: Reports No Symptoms
Abdomen/GI: Reports No Symptoms
Genitourinary: Reports No Symptoms
Musculoskeletal: Reports No Symptoms
Skin: Reports No Symptoms
Physical Exam
-
General: Appears Chronically Ill
HEENT: Normocephalic, Neck Non Tender and Other (orbital ecchymosis, nasal bridge ecchymosis. Dried blood from nose. scleral icterus)
Respiratory: Clear to Auscultation and Non Labored Respirations
Cardiac: Regular Rhythm and S1/S2
GI: Soft, Nontender, Normal Bowel Sounds and Distended
Musculoskeletal: No Clubbing, No Cyanosis and No Edema
Skin: Warm, Dry and Jaundice
Neuro: Awake and AO x 3
Psych: Calm
[2024-08-23] MEDS: SODIUM BICARBONATE 1300 MG PO (10:07)
[2024-08-23 10:31] VITALS: BP 117/55
[2024-08-23 10:51] VITALS: BP 114/56
--- NOTE | 2024-08-23 11:35 | W.PN.NEPH.PH ---
Today's Communication / Plan
-
lasix
Assessment/Plan
-
Assessment
TYSON
ESLD
Ascites
Melena anemia
COPD
Thrombocytopenia
Hyponatremia
Plan
continue aldactone
lasix 20mg daily
Follow BMP
Continue salt and fluid restriction
-
-
Date of Service: August 23, 2024
CC / HPI / ROS
-
Chief Complaint:
TYSON
History of Present Illness:
remains pancytopenic
hemodynamically stable
TYSON/Cr stable 1.1
K stable 3.5
Na low 132
Review of Systems:
RLQ pain
no CP/SOB
c/o testicular edema
Labs
-
Labs:
WBC 3.5 10^3/uL (4.8-10.8) L 08/23/24 05:53
RBC 2.30 10^6/uL (4.70-6.10) L 08/23/24 05:53
Hgb 7.2 g/dL (13.0-18.0) L 08/23/24 05:53
Hct 20.7 % (39.0-52.0) L* 08/23/24 05:53
Plt Count 40 10^3/uL (130-400) L 08/23/24 05:53
Sodium 132 mmol/L (135-145) L 08/23/24 05:53
Potassium 3.5 mmol/L (3.5-5.1) 08/23/24 05:53
Chloride 106 mmol/L (98-107) 08/23/24 05:53
Carbon Dioxide 17 mmol/L (22-30) L 08/23/24 05:53
BUN 23 mg/dl (9-20) H 08/23/24 05:53
Creatinine 1.1 mg/dL (0.7-1.3) 08/23/24 05:53
eGFR > 60.00 08/23/24 05:53
Glucose 116 mg/dl (70-99) H 08/23/24 05:53
Calcium 8.4 mg/dl (8.4-10.2) 08/23/24 05:53
Albumin 2.4 g/dl (3.5-5.0) L 08/23/24 05:53
Physical Exam
-
Vital Signs:
Vital Signs
Temp Pulse Resp BP Pulse Ox
98 F 86 14 114/56 100
08/23/24 10:51 08/23/24 10:51 08/23/24 10:51 08/23/24 10:51 08/23/24 10:51
Cardiovascular:: Regular rate and rhythm
Respiratory:: Bilateral: Coarse
Lung Excursion:: Normal
Abdomen:: Nontender and Soft
Bowel Sounds:: Normal
Extremity Edema:: None: Bilateral:
[2024-08-23] MEDS: LASIX 20 MG PO (13:00)
[2024-08-23 14:01] VITALS: BP 124/57
--- NOTE | 2024-08-23 14:37 | CM ---
wholesale account manager reviewed patient's chart and plan is for patient to go to a skilled facility tomorrow patient has been accepted at [facility], Auth [id number] for 5 days, LCD 08/27/24, patient will go by w/c van and spouse is aware and agreeable
to $85 cost of w/c van transport.
[facility]
Report [phone]

Plan; Skilled placement at [facility].
--- NOTE | 2024-08-23 14:50 | PTCARENOTE ---
08/23- Patient is getting verbally aggressive with family in shower stating, 'I'm fucking leaving. You can't fucking tell me what to do.' He is not physically aggressive. Able to de-escalate the patient and get him out of shower, dressed and back
into chair without issue. He is still agitated and threatening to leave AMA and 'rip out my fucking IVs.' Discussed more adaptive coping mechanisms than anger or lashing out; validated frustrations. He was able to be de-escalated. Notified
Physician. Continue to monitor.
[2024-08-23] MEDS: RISPERDAL M-TAB (ORALLY DISINTEGRATING) 0.5 MG PO (15:24)
[2024-08-23 15:38] VITALS: BP 108/47
[2024-08-23] MEDS: ULTRAM 50 MG PO (20:10)
[2024-08-23] MEDS: SYMBICORT 160/4.5 MCG INHALER INH (21:02)
[2024-08-23 23:15] VITALS: BP 110/42
[2024-08-23] MEDS: DESYREL 50 MG PO (23:46)
[2024-08-24] MEDS: ULTRAM 50 MG PO (06:19)
--- NOTE | 2024-08-24 07:48 | W.PN.HOSP.TC ---
Today's Communication/Plan
-
.
Assessment / Plan
Assessment / Plan
Mr. Cortez Mazariegos is a 59yoM pmh cirrhosis, recurrent sbp, hepatic encephalopathy, htn, chronic anemia, hyponatremia was admitted 08/17 for worsening outpatient labs.
Melena
Anemia
- transfuse for Hb>7
- prophylactic ceftriaxone
- PPI BID
- follow cbc
- gi consulted - no plan for endoscopy at this time
- bleeding scan cancelled due to resolution of melena
- enteroscopy: normal esophagus, severe portal htn gastropathy w active bleeding treated w argon plasma coagulation, 2cm hiatal hernia. May benefit f/u egd in 4-8weeks for APC
- colonoscopy: nonbleeding internal hemorrhoids, diverticulosis, one 8mm polyp in sigmoid colon, old ovesco clip in ascending colon. Repeat 6-12 months
Sore throat
- lozenges
Nausea, Vomiting
- improved
- antiemetics
TYSON
- resolved
- received albumin 1g/kg x2 doses for concern of hepatorenal syndrome
- likely secondary to hypovolemia/blood loss
- lasix, aldactone resumed
- nephro consulted
- follow bmp
Facial trauma secondary to fall s/p Mohs procedure
- procedure 08/14
- no acute intracranial abnormalities, facial bone abnormalities on CT
- monitor for bleeding
- ent consulted - no recommendations at this time
Hypotonic Hyponatremia, acute on chronic
- improved
- Urine Osm 439, Urine Cr 137.3, Urine Na<5
- likely secondary to low effective arterial blood volume secondary to cirrhosis. Acute exacerbation likely secondary to ADH excess from blood loss
- salt, water restriction
Recurrent ascites secondary to portal hypertension secondary to end stage liver disease
- last paracentesis 08/20. 6L clear yellow ascitic fluid. No SBP
- received 37.5mg albumin
- paracentesis each Tuesday
- abdomen CT: Cirrhotic appearing liver with large volume ascites, upper abdominal collateral vessels and splenomegaly. Right inguinal hernia and umbilical hernia containing ascites fluid. Unchanged 9 mm calculus in the proximal left ureter. No
hydronephrosis.
- daily weights
- will be evaluated 08/27 at [place] for possible liver transplant
Hepatic encephalopathy
- at baseline
- cont lactulose, rifaxime
Hyperbilirubinemia
- improved
- follow bilirubin
HTN
- resume lasix, aldactone
DVT prophylaxis
- SCDs
Code status: FULL CODE
Diet: regular
Anticipated Discharge: Today
Subjective/Interval History
-
Date of Service: August 24, 2024
Mr. Cortez Mazariegos is a 59yoM pmh cirrhosis, recurrent sbp, hepatic encephalopathy, htn, chronic anemia, hyponatremia was admitted 08/17 for worsening outpatient labs. No bloody stools. Plans to either drive or fly to [place] on Tuesday to help
move his daughter home. Intends to drive 36hr back to [place].
Objective Data
-
Labs:
Laboratory Results
08/24/24
07:45
WBC Pending
Hgb Pending
Hct Pending
Plt Count Pending
PT Pending
INR Pending
Sodium Pending
Potassium Pending
Chloride Pending
Carbon Dioxide Pending
BUN Pending
Creatinine Pending
Glucose Pending
Calcium Pending
Total Bilirubin Pending
AST Pending
ALT Pending
Alkaline Phosphatase Pending
Vital Signs:
Vital Signs
Temp Pulse Resp BP Pulse Ox
99.6 F 102 20 110/42 95
08/23/24 23:15 08/23/24 23:15 08/23/24 23:15 08/23/24 23:15 08/23/24 23:15
I&O
08/23/24 08/24/24 08/25/24
06:59 06:59 06:59
Intake Total 960 / 960 1450 / 1450
Balance 960 / 960 1450 / 1450
Review of Systems
-
History Source: Patient
All other systems: Reviewed and negative
Constitutional: Reports Chills; Denies Fever
EENT: Reports No Symptoms Reported
Respiratory: Reports No Symptoms
Cardiac: Reports No Symptoms
Abdomen/GI: Reports Diarrhea; Denies Abdominal Pain, Nausea, Vomiting or Constipated
Genitourinary: Reports No Symptoms
Neuro: Reports No Symptoms
Hematologic / Lymphatic: Reports Bruising
Physical Exam
-
General: Appears Chronically Ill
HEENT: Normocephalic and Other (orbital ecchymosis, sutured mohs procedure, dried blood)
Respiratory: Clear to Auscultation and Non Labored Respirations
Cardiac: Regular Rhythm and S1/S2
GI: Nontender, Normal Bowel Sounds and Distended
Musculoskeletal: No Clubbing, No Cyanosis and No Edema
Skin: Warm, Dry and Jaundice
Neuro: Awake and AO x 3
Psych: Calm
[2024-08-24 08:00] VITALS: BP 116/57
[2024-08-24] MEDS: SYMBICORT 160/4.5 MCG INHALER INH (08:02)
[2024-08-24] MEDS: SPIRIVA RESPIMAT 2.5 MCG INH (08:02)
[2024-08-24] MEDS: ALDACTONE 25 MG PO (08:10)
[2024-08-24] MEDS: NSS (PRESERVATIVE FREE) 10 ML IV (08:10)
[2024-08-24] MEDS: LASIX 20 MG PO (08:10)
[2024-08-24] MEDS: PROTONIX IV 40 MG IV (08:10)
[2024-08-24] MEDS: DUPHALAC/CHRONULAC 20 GRAMS PO (08:10)
[2024-08-24] MEDS: VITAMIN B1 100 MG PO (08:11)
[2024-08-24] MEDS: XIFAXAN 550 MG PO (08:11)
[2024-08-24] MEDS: ANESTHETIC LOZENGE 1 LOZENGE PO (08:15)
[2024-08-24 08:16] LABS: Hemoglobin 8.1 g/dL (13.0-18.0); Mean Corp Hgb Conc. 35.2 g/dL (33.0-37.0); Mean Corpuscular Hgb 31.5 pg (27.0-31.0); Mean Corpuscular Volume 89.5 fL (80.0-94.0); Mean Platelet Volume 10.9 fL (7.4-10.4); Platelet Count 44 10^3/uL (130-400); Red Blood Cell Count 2.57 10^6/uL (4.70-6.10); White Blood Cell Count 3.6 10^3/uL (4.8-10.8)
[2024-08-24 08:27] LABS: INR 1.86; PT 21.2 Sec (11.4-14.6)
[2024-08-24 08:48] LABS: ALT (SGPT) 27 U/L (0-50); AST (SGOT) 48 U/L (17-59); Albumin 2.6 g/dl (3.5-5.0); Alkaline Phosphatase 98 U/L (38-126); Blood Urea Nitrogen 16 mg/dl (9-20); Calcium 8.4 mg/dl (8.4-10.2); Carbon Dioxide 19 mmol/L (22-30); Chloride 105 mmol/L (98-107); Estimated Creatinine Clearance 80 ml/min; Glucose 101 mg/dl (70-99); Potassium 3.1 mmol/L (3.5-5.1); Sodium 133 mmol/L (135-145); Total Bilirubin 2.6 mg/dl (0.2-1.3); Total Protein 4.4 g/dl (6.3-8.2); eGFR > 60.00
--- NOTE | 2024-08-24 11:04 | W.DCSUMMARY ---
Discharge Summary
Discharge Data
Date of Admission: 08/17/24
Date of Discharge: 08/24/24
-
Pending Results: No
Hospital Course
Discharging Physician : Dr. Sai Mariano, Dr. Michelle Mason
Disposition : [facility]
Primary care physician : Dr. Drake Goss
Principal Discharge diagnosis : Cirrhosis, Portal gastropathy, Acute blood loss anemia
Chronic Discharge diagnosis : cirrhosis, recurrent sbp, hepatic encephalopathy, htn, chronic anemia, hyponatremia
Hospital Course : Admitted 08/17 for abnormal outpatient lab values. Anemia repleted w pRBCs to keep Hb>7. Received a total of 7 units during hospitalization. TYSON likely secondary to blood loss, resolved w hydration and transfusions. Concern for
hepatorenal syndrome, received albumin 1g/kg x2 doses. Weekly paracentesis on 08/20. 6L drained, received 37.5mg albumin. Underwent upper endoscopy and colonoscopy. It took a couple of days to adequately prepare for these procedures. Significant for
severe portal htn gastropathy w active bleeding treated w argon plasma coagulation. His nose intermittently bled throughout his hospitalization secondary to trauma and Mohs procedure; eventually stopped oozing blood. Last transfusion 08/23, Hb
stable at discharge, no active bleeding. Hemodynamically stable, afebrile>48h.
Important imaging findings :
Abdomen/pelvic CT - Cirrhotic appearing liver with large volume ascites, upper abdominal collateral vessels and splenomegaly. Right inguinal hernia and umbilical hernia containing ascites fluid. Unchanged 9 mm calculus in the proximal left ureter.
No hydronephrosis.
Abdomen u/s - Cirrhotic appearance of the liver with large volume ascites.
Procedure findings :
Paracentesis - drained 6L clear yellow ascitic fluid. No SBP
Enteroscopy - normal esophagus, severe portal htn gastropathy w active bleeding treated w argon plasma coagulation, 2cm hiatal hernia. May benefit f/u egd in 4-8weeks for APC
Colonoscopy - nonbleeding internal hemorrhoids, diverticulosis, one 8mm polyp in sigmoid colon, old ovesco clip in ascending colon. Repeat 6-12 months
Discharge Plan
-
Patient Disposition: Alf/SNF
Discharge Diagnosis/Procedures: Cirrhosis, Portal gastropathy, Acute blood loss anemia
Condition: Fair
Diet: 2 Gram Sodium
Activity: As tolerated
Additional Activity: [facility]
Driving Restrictions: No driving
Bathing Restrictions: OK to Shower
Other Services: PT and OT
Activity Restrictions/Additional Instructions:
Please follow up with Dr. Dan on Tuesday.
Please follow up with Dr. Drake Goss in 1 week.
Please follow up with gastroenterology Dr. Jennifer Weaver.
1-2 hrs PT/OT per day
Instructions: Cirrhosis, Anemia of inflammation (anemia of chronic disease)
Referrals:
Jennifer Weaver MD [Active] - in two to four weeks
Drake Goss DO [Family Provider] - in one week
Prescriptions:
New
spironolactone 25 mg Tablet
25 mg PO DAILY Qty: 30 0RF
furosemide 20 mg Tablet
20 mg PO DAILY Qty: 30 0RF
tramadol 50 mg tablet
50 mg PO BID PRN (Reason: Mod sev pain) Qty: 10 0RF
Continued
thiamine HCl (vitamin B1) 100 mg tablet
100 mg PO DAILY
Breztri Aerosphere 160-9-4.8 mcg/actuation Hfa Aerosol Inhaler
2 inh INHALATION R BID
Xifaxan 550 mg Tablet
550 mg PO BID
magnesium oxide 400 mg magnesium Tablet
400 mg PO BID
lactulose 20 gram/30 mL Solution
20 g PO TID Qty: 2880 0RF
miconazole nitrate [Miconazorb AF] 2 % Powder
1 applic topical BID 7 Days Qty: 85 0RF
lidocaine 4 % Adhesive Patch,Medicated
1 patch topical DAILY 30 Days Qty: 30 0RF
pantoprazole [Protonix] 40 mg tablet,delayed release (DR/EC)
40 mg PO BID
ferrous sulfate [FeroSul] 325 mg (65 mg iron) Tablet
325 mg PO DAILY 30 Days Qty: 30 0RF
trazodone 50 mg tablet
25 mg PO HS PRN (Reason: Anxiety/insomnia) Qty: 30 0RF
Discontinued
furosemide [Lasix] 40 mg Tablet
40 mg PO DAILY
spironolactone 50 mg tablet
50 mg PO DAILY
cephalexin [Keflex] 500 mg Capsule
500 mg PO BID
tramadol 50 mg Tablet
50 mg PO BID PRN (Reason: Pain) Qty: 0 0RF
Discharge Orders:
Discharge Patient (As Directed); Ordered 08/24/24
Ordered By: Sai Mariano
Discharge Date and Time
Discharge Date/Time: 08/24/24 11:34
Print Language: TURKISH
--- NOTE | 2024-08-24 11:19 | CM ---
Patient to transfer to [facility] today by staci weber. 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
[facility]
Report [phone]
== END 2024-08-24 11:34 | DRG 441 ==
LOC: 4 WEST ACU 20:18
PROVIDERS: Internal Medicine Gastroenterology; Nurse Practitioner; Physician Assistant Medical; Radiology Vascular & Interventional Radiology; ADMITTING PHYSICIAN Internal Medicine; ATTENDING PHYSICIAN Hospitalist; CONSULT PHYSICIAN Otolaryngology; CONSULT PHYSICIAN Specialist; EMERGENCY PHYSICIAN Emergency Medicine; FAMILY PHYSICIAN Internal Medicine; OTHER PHYSICIAN Hospitalist
PROC: 30233N1 Transfusion of Nonautologous Red Blood Cells into Peripheral Vein, Percutaneous Approach (ICD-10-PCS; 2024-08-17)
PROC: 0W9G3ZZ Drainage of Peritoneal Cavity, Percutaneous Approach (ICD-10-PCS; 2024-08-20)
PROC: 0W3P8ZZ Control Bleeding in Gastrointestinal Tract, Via Natural or Artificial Opening Endoscopic (ICD-10-PCS; 2024-08-22)
PROC: 0DJD8ZZ Inspection of Lower Intestinal Tract, Via Natural or Artificial Opening Endoscopic (ICD-10-PCS; 2024-08-22)
DX: K76.6 Portal hypertension (principal); K76.7 Hepatorenal syndrome; D62 Acute posthemorrhagic anemia; N17.9 Acute kidney failure, unspecified; E87.1 Hypo-osmolality and hyponatremia; K70.31 Alcoholic cirrhosis of liver with ascites; Z79.899 Other long term (current) drug therapy; K76.82 Hepatic encephalopathy; C44.301 Unspecified malignant neoplasm of skin of nose; J44.9 Chronic obstructive pulmonary disease, unspecified; D69.6 Thrombocytopenia, unspecified; K31.89 Other diseases of stomach and duodenum; S00.83XA Contusion of other part of head, initial encounter; R04.0 Epistaxis; K44.9 Diaphragmatic hernia without obstruction or gangrene; K64.8 Other hemorrhoids; K63.5 Polyp of colon; K57.30 Diverticulosis of large intestine without perforation or abscess without bleeding; F10.21 Alcohol dependence, in remission; F17.210 Nicotine dependence, cigarettes, uncomplicated; K21.9 Gastro-esophageal reflux disease without esophagitis; I12.9 Hypertensive chronic kidney disease with stage 1 through stage 4 chronic kidney disease, or unspecified chronic kidney disease; N18.9 Chronic kidney disease, unspecified; W18.30XA Fall on same level, unspecified, initial encounter; Z86.73 Personal history of transient ischemic attack (TIA), and cerebral infarction without residual deficits
CPT/HCPCS: 36430; 49083; 74176; 76705; 80048; 80053; 81003; 81015; 82042; 82150; 82570; 83615; 83735; 83935; 84157; 84300; 85014; 85018; 85025; 85027; 85610; 85730; 86850; 86900; 86901; 86920; 86922; 87015; 87070; 87086; 87205; 89051; 94640; 97163; 97166; 99285; P9016; P9047

== ENCOUNTER → 2024-08-28 07:44 | Outpatient (REF) | payer BC, SELFPAY ==
[2024-08-28 08:14] VITALS: BP 131/57; BP_SYST 83
[2024-08-28 09:02] VITALS: BP 114/55
[2024-08-28 11:18] LABS: Body Fluid Mononuclear 83.9 %; Body Fluid Polymorphonuclear 16.1 %; Body Fluid WBC 87 /CUMM
[2024-08-28 12:40] LABS: Body Fluid Second Tech AMA
== END ==
LOC: RADI 07:44
PROVIDERS: ATTENDING PHYSICIAN Nurse Practitioner Adult Health; FAMILY PHYSICIAN Internal Medicine
DX: R18.8 Other ascites (principal)
CPT/HCPCS: 49083; 87015; 87070; 87205; 89051

== ENCOUNTER → 2024-09-03 08:06 | Outpatient (REF) | payer BC, SELFPAY ==
[2024-09-03 09:08] VITALS: BP 147/99; BP_SYST 101
[2024-09-03 09:59] LABS: % Basophils 0.5 % (0-2); % Eosinophils 2.2 % (0-6); % Immature Granulocytes 0.4 % (0-0.5); % Lymphocytes 8.7 % (20.5-51.1); % Neutrophils 81.2 % (42.2-75.2); Absolute Eosinophils 0.2 10^3/uL (0-0.7); Absolute Lymphocytes 0.7 10^3/uL (1.2-3.4); Absolute Monocytes 0.6 10^3/uL (0.1-0.6); Absolute Neutrophils 6.4 10^3/uL (1.4-6.5); Hematocrit 26.1 % (39.0-52.0); Hemoglobin 8.5 g/dL (13.0-18.0); Mean Corp Hgb Conc. 32.6 g/dL (33.0-37.0); Mean Corpuscular Hgb 30.7 pg (27.0-31.0); Mean Corpuscular Volume 94.2 fL (80.0-94.0); Mean Platelet Volume 10.3 fL (7.4-10.4); Nucleated Red Blood Cells % 0 % (-); Platelet Count 87 10^3/uL (130-400); Red Blood Cell Count 2.77 10^6/uL (4.70-6.10); Red Cell Dist. Width 17.2 % (11.5-14.5); White Blood Cell Count 7.9 10^3/uL (4.8-10.8)
[2024-09-03 10:43] LABS: Body Fluid Mononuclear 40.8 %; Body Fluid Polymorphonuclear 59.2 %; Body Fluid WBC 196 /CUMM
[2024-09-03 10:44] LABS: Body Fluid Second Tech SS
== END ==
LOC: RADI 08:06
PROVIDERS: Internal Medicine Transplant Hepatology; ATTENDING PHYSICIAN Nurse Practitioner Adult Health; FAMILY PHYSICIAN Internal Medicine
DX: R18.8 Other ascites (principal)
CPT/HCPCS: 49083; 36415; 71046; 85025; 87015; 87070; 87205; 89051

== ENCOUNTER 2024-09-03 10:31 | Outpatient (RCR) | payer BC, SELFPAY ==
[2024-08-15 11:11] VITALS: BP 112/44
[2024-08-15] MEDS: FLEXBUMIN 100 IV (11:13)
[2024-08-15 11:18] VITALS: BP 112/44
[2024-08-15] MEDS: FLEXBUMIN 50 IV (13:01)
[2024-08-15 13:03] VITALS: BP 114/45
[2024-08-15 13:55] VITALS: BP 122/46
[2024-08-15] MEDS: VENOFER 110 MG IV (14:15)
[2024-08-15 14:19] LABS: % Basophils 0.8 % (0-2); % Eosinophils 4.2 % (0-6); % Immature Granulocytes 0.2 % (0-0.5); % Monocytes 9.7 % (1.7-9.3); % Neutrophils 68.1 % (42.2-75.2); Absolute Eosinophils 0.2 10^3/uL (0-0.7); Absolute Lymphocytes 0.9 10^3/uL (1.2-3.4); Absolute Monocytes 0.5 10^3/uL (0.1-0.6); Absolute Neutrophils 3.4 10^3/uL (1.4-6.5); Hematocrit 22.8 % (39.0-52.0); Hemoglobin 7.6 g/dL (13.0-18.0); Mean Corp Hgb Conc. 33.3 g/dL (33.0-37.0); Mean Corpuscular Hgb 30.8 pg (27.0-31.0); Mean Corpuscular Volume 92.3 fL (80.0-94.0); Mean Platelet Volume 9.8 fL (7.4-10.4); Platelet Count 73 10^3/uL (130-400); Red Blood Cell Count 2.47 10^6/uL (4.70-6.10); Red Cell Dist. Width 15.6 % (11.5-14.5); White Blood Cell Count 5.1 10^3/uL (4.8-10.8)
[2024-08-15 14:59] LABS: Ammonia 73 umol/L (9-30)
[2024-08-15 16:09] VITALS: BP 109/50
[2024-08-17] MEDS: VENOFER 110 MG IV (13:25)
[2024-08-17 13:33] VITALS: BP 130/52
[2024-08-17 13:47] LABS: ALT (SGPT) 22 U/L (0-50); AST (SGOT) 39 U/L (17-59); Albumin 2.7 g/dl (3.5-5.0); Alkaline Phosphatase 75 U/L (38-126); Blood Urea Nitrogen 61 mg/dl (9-20); Calcium 7.7 mg/dl (8.4-10.2); Carbon Dioxide 19 mmol/L (22-30); Chloride 96 mmol/L (98-107); Glucose 208 mg/dl (70-99); Potassium 3.8 mmol/L (3.5-5.1); Sodium 127 mmol/L (135-145); Total Bilirubin 2.6 mg/dl (0.2-1.3); Total Protein 4.7 g/dl (6.3-8.2); eGFR 39.64
[2024-08-17 13:50] LABS: % Basophils 0.3 % (0-2); % Eosinophils 0.8 % (0-6); % Immature Granulocytes 0.5 % (0-0.5); % Lymphocytes 10.8 % (20.5-51.1); % Monocytes 6.2 % (1.7-9.3); % Neutrophils 81.4 % (42.2-75.2); Absolute Eosinophils 0.1 10^3/uL (0-0.7); Absolute Immature Granulocytes 0.1 10^3/uL (0-0.05); Absolute Lymphocytes 1.2 10^3/uL (1.2-3.4); Absolute Monocytes 0.7 10^3/uL (0.1-0.6); Absolute Neutrophils 9.4 10^3/uL (1.4-6.5); Hematocrit 20.3 % (39.0-52.0); Hemoglobin 6.9 g/dL (13.0-18.0); Mean Corpuscular Hgb 30.4 pg (27.0-31.0); Mean Corpuscular Volume 89.4 fL (80.0-94.0); Mean Platelet Volume 10.3 fL (7.4-10.4); Nucleated Red Blood Cells % 0 % (-); Platelet Count 98 10^3/uL (130-400); Red Blood Cell Count 2.27 10^6/uL (4.70-6.10); Red Cell Dist. Width 15.6 % (11.5-14.5); White Blood Cell Count 11.5 10^3/uL (4.8-10.8)
[2024-08-17 14:04] LABS: APTT 39.4 Sec (23.4-35.0)
[2024-08-17 14:30] VITALS: BP 115/42
--- NOTE | 2024-08-17 15:00 | PTCARENOTE ---
Critical lab values tiger texted to Dr. Weaver WBC 11.5 HGB 6.9 Platelets 98,000 Sodium 127. Pt c/o abdominal pain. Denies blood in stool. Pt is afebrile 97.9. Dr. Weaver spoke with patients . Agreeable to eval in ED.
Charge nurse notified.
Pt transfered to ED via wheelchair in stable condition. 22p capped IV in place in left forearm. Report given to triage nurse.
[2024-09-03 11:08] VITALS: BP 140/55
[2024-09-03] MEDS: FLEXBUMIN 50 IV (11:08)
[2024-09-03] MEDS: FLEXBUMIN 100 IV (12:02)
[2024-09-03 12:03] VITALS: BP 137/48
[2024-09-03 13:43] VITALS: BP 135/54
== END 2024-09-04 09:29 | disposition home or self-care (01) ==
LOC: OID 10:31
PROVIDERS: Internal Medicine Gastroenterology; ATTENDING PHYSICIAN Nurse Practitioner Adult Health; FAMILY PHYSICIAN Internal Medicine
DX: K70.31 Alcoholic cirrhosis of liver with ascites (principal); B18.2 Chronic viral hepatitis C; D64.9 Anemia, unspecified; D69.6 Thrombocytopenia, unspecified
CPT/HCPCS: 36415; 49083; 71046; 80053; 82140; 85025; 85610; 85730; 87015; 87070; 87205; 89051; 96365; 96366; 96367; J1756; P9047

== ENCOUNTER → 2024-09-04 09:09 | Outpatient (REF) | payer BC, SELFPAY ==
[2024-09-04] MEDS: DOBUTREX 50 MG IV (11:04)
[2024-09-04] MEDS: DOBUTREX 50 ML IV (11:04)
== END ==
LOC: RCS 09:09
PROVIDERS: ATTENDING PHYSICIAN Internal Medicine Cardiovascular Disease; FAMILY PHYSICIAN Internal Medicine
DX: Z01.818 Encounter for other preprocedural examination (principal)
CPT/HCPCS: 93017; 93306; 93350

== ENCOUNTER 2024-09-08 12:58 | Inpatient (IN) | payer BC, SELFPAY ==
[2024-09-08] VITALS (20 sets, daily range): BP systolic 99–148; BP diastolic 40–86; BMI 25.3
--- NOTE | 2024-09-08 11:28 | ED.GENMED ---
History of Present Illness
General
Chief Complaint: Change in Mental Status
Time Seen by Provider: 09/08/24 11:15
History of Present Illness
History of Present Illness:
59-year-old male with history of hepatic cirrhosis with recurrent ascites, upper GI bleed, and COPD presents to the emergency department for evaluation of altered mental status. Per spouse he has been profoundly altered over the past 12 hours.
Apparently awoke early this morning was throwing toilet paper around the house and is having difficulty recognizing his family. Was recently admitted to this hospital for similar issues and lung which was an upper GI bleed, underwent endoscopy with
cauterization of portal gastropathy. He has not on any blood thinners. He is on oral iron
Past History
Past History
ED Past Medical History: COPD, CVA, HTN, Psychiatric and Other
ED Past Surgical History: Other
Social History
Tobacco: Smoker
Alcohol: Former
Drug: None
Personal:
Living: with family
Employment: Employed
Family History
Family History: Diabetes and Other
Review of Systems
Review of Systems
Allergies reviewed?: Yes
All Other Systems: ROS reviewed and negative except as documented in HPI and ROS
Phy Exam
Physical Exam
Physical Exam:
GEN: Pale, chronically ill-appearing, somnolent but arouses easily to voice
Eyes: PERRLA, EOMs intact, no scleral icterus
HENT: NCAT, oral mucosa moist
Lungs: CTAB, no wheezes, rales, rhonchi, normal chest wall excursion
Cardiac: RRR, no M/R/G, no peripheral edema. Radial pulses 2+ bilat
Abdomen: Protuberant, grossly nontender
Neuro: Somnolent but arouses to voice, difficulty with orientation questions
MSK: No gross deformity or ecchymosis. No edema. No digital clubbing
Skin: No rashes, petechiae.
Psych: Calm, cooperative, proper hygiene
Course
Orders/Labs/Results
Orders:
Orders
09/08/24 11:38
Type+Screen Urgent
Ammonia Urgent
Complete Blood Count/With Diff Urgent
Comprehensive Metabolic Panel Urgent
Prothrombin Time Urgent
Venous Blood Gas Urgent
%Oxygen/Room Air: 97
09/08/24 11:52
Speech Screening from [facility] Routine
09/08/24 12:05
Urinalysis Reflex To Culture Urgent
Date Specimen was Collected: 09/08/24
Time Specimen was Collected: 12:03
Urine Microscopic Reflex Cult Urgent
Urine Culture Urgent
LOVE Source: U
Specimen Description:
Date Specimen was Collected: 09/08/24
Time Specimen was Collected: 12:03
09/08/24 12:12
Blood Bank Products [* Blood Bank Products] Urgent
Blood Bank Products: *Packed RBC Leuko(PRBC's)
Quantity: 2
Transfuse Today: Yes
Reason: Anemia
09/08/24 12:51
Admit/Transfer Patient As Directed
Co-Sign Provider:
Level of Care: Inpatient admission
Assign to:: IMU- Intermediate Care
Physician / Group: romelia
Diagnosis: UGIB, hepatic encphelopathy
Reason for Hospitalization: UGIB, hepatic encphelopathy
Expected length of stay greater than two midnights?: Yes
ELOS- Estimated Length of Stay in days: 2
I certify the patient meets the requirements for IP care: Yes
PRN Pain Medication Management As Directed
May give lesser potent ordered pain med per pt: Yes
preference::
Protocol:: Medication orders for pain may be administered in a
manner that supports deferring to patient preference
when the pt is:
- Requesting an ordered lesser potent pain medication.
Least to most potent pain medications are defined
as: acetaminophen < NSAID < tramadol < opioids
(morphine, oxycodone, hydromorphone).
- Requesting a lesser dose of the same medication IF
ORDERED.
- Requesting a less intrusive route of administration
if both routes are prescribed by the provider (PO <
IV).
09/08/24 12:52
Code Status As Directed
Resuscitation Status: Full Code
09/08/24 12:54
Ammonia Urgent
09/08/24 12:55
Pantoprazole [Protonix IV] 80 mg IV NOW STA
09/08/24 13:00
Lactulose [Duphalac/Chronulac] 20 grams PO DAILY
Octreotide Acetate [Sandostatin] 600 mcg 0.9% Sodium Chloride 500 ml [Nss] 500 ml IV Q12H
Pantoprazole 80 mg/100 ml Nss [Protonix] 80 mg in 100 ml IV Q10H
09/08/24 13:38
Lidocaine [Lidocaine 4% Patch] 1 patch TOPICAL DAILYPRN PRN
Apply Lidocaine patch(s) to:: right Knee and shoulder
Tramadol HCl [Ultram] 50 mg PO BID PRN
09/08/24 13:38
GASTROINTESTINAL CONSULT Routine
Consulting Provider: Wilfredo Kee
Was physician already notified: Yes
NEPHROLOGY CONSULT Routine
Consulting Provider: Sheldon Jennings
Was physician already notified: Yes
B12 [Vitamin B12] Routine
Folate Routine
Iron Routine
TIBC [Total Iron Binding] Routine
Activity As Directed
Activity Level: As Tolerated
Pneumatic Compression Sleeves As Directed
Type: Knee high
Vital Signs As Directed
Frequency: Per unit guidelines
DX Deep Vein Thrombosis Video Routine
09/08/24 14:00
CefTRIAXone [Rocephin] 2,000 mg IV Q24H
09/08/24 Dinner
NPO
Allow oral meds: Yes
Allow clear liquids: Sips of Clears
09/08/24 16:00
Lactulose [Duphalac/Chronulac] 20 grams PO TID
09/08/24 20:00
Miconazole Nitrate [Desenex/Mitrazol/Zeasorb] 1 applic TOPICAL BID
Rifaximin [Xifaxan] 550 mg PO BID
[id number] [Breztri Aerosphere] 2 inh INH R BID
magnesium oxide 400 mg PO BID
09/09/24 06:00
Complete Blood Count/With Diff IN AM
Comprehensive Metabolic Panel IN AM
09/09/24 08:00
Ferrous Sulfate [Feosol] 325 mg PO DAILY
Thiamine HCl [Vitamin B1] 100 mg PO DAILY
Abnormal Lab Results
09/08/24 09/08/24
11:38 12:05
RBC 1.92 L 10^6/uL
(4.70-6.10)
Hgb 6.1 L* D g/dL
(13.0-18.0)
Hct 17.7 L* %
(39.0-52.0)
MCH 31.8 H pg
(27.0-31.0)
RDW 18.2 H %
(11.5-14.5)
Plt Count 108 L D 10^3/uL
(130-400)
Abs Immat Gran (auto) 0.1 H 10^3/uL
(0-0.05)
Absolute Lymphs (auto) 1.1 L 10^3/uL
(1.2-3.4)
Immature Gran % 0.6 H %
(0-0.5)
Neutrophils % 77.1 H %
(42.2-75.2)
Lymphocytes % 13.4 L %
(20.5-51.1)
PT 17.3 H Sec
(11.4-14.6)
VBG pCO2 31 L mmHg
(35-48)
VBG pO2 86 H mmHg
(30-50)
VBG HCO3 19.6 L mmol/L
(22-27)
Carbon Dioxide 19 L mmol/L
(22-30)
BUN 49 H mg/dl
(9-20)
Creatinine 1.5 H mg/dL
(0.7-1.3)
Glucose 124 H mg/dl
(70-99)
Calcium 8.3 L mg/dl
(8.4-10.2)
Total Bilirubin 2.7 H mg/dl
(0.2-1.3)
Ammonia 64 H umol/L
(9-30)
Total Protein 5.0 L g/dl
(6.3-8.2)
Albumin 2.8 L g/dl
(3.5-5.0)
Urine Bilirubin 1+ A
(Negative)
Leukocyte Esterase Rfl 1+ A
(Negative)
Urine Bacteria (Reflex) Few A
(Negative)
Crossmatch IS Only See Detail
MTS Gel Crossmatch See Detail
09/08/24 11:38
09/08/24 11:38
Vital Signs
Initial and Last Documented VS:
Initial Vital Signs
Temp Pulse Resp Pulse Ox
98.0 F 110 22 98
09/08/24 11:09 09/08/24 11:09 09/08/24 11:09 09/08/24 11:09
Last Documented Vital Signs
Temp Pulse Resp BP Pulse Ox
98.9 F 104 14 128/60 100
09/08/24 13:00 09/08/24 13:00 09/08/24 13:00 09/08/24 13:00 09/08/24 13:00
MDM/Problems Addressed
MDM/Problems Addressed:
Patient's acute encephalopathy is likely multifactorial in the setting of significant hemoglobin decline (most likely from upper GI bleed) as well as hyperammonemia. Hemoccult most likely to be positive in the setting of p.o. iron used thus this
was deferred. High risk for upper GI bleed given known portal gastropathy and recent upper GI bleed. 2 units of PRBCs ordered in the emergency department, will admit to the hospitalist service for further management
*Critical Care Note
Total Time (30-74mins, 75-104mins- exclusive of procedures): 35 min
comment:
Critical care time: 35 minutes
Critical care time was exclusive of: Separately billable procedures, treating other patients, and teaching time
Critical care was necessary to treat or prevent imminent or life-threatening deterioration of the following conditions: Blood loss anemia
Critical care time spent personally by me on the following activities:
[x] Review of old charts
[x] Obtaining history from patient or surrogate
[x] Ordering and review of the laboratory studies
[ ] Ordering and review of radiographic studies
[x] Ordering and performing treatments and interventions
[x] Patient patient's response to treatment
[x] Development of treatment plan with patient or surrogate
ED Attending Note
-
Portions of this chart may have been created with voice recognition software.� Occasional wrong word or��sound alike� substitutions may have occurred due to the inherent limitations of voice recognition software.
Discharge Plan
Departure
Patient Disposition: Admit
Date of Disposition: 09/08/24
Time of Disposition: 12:18
Presentation/result/management discussed w/ accepting MD/DO: Hospitalist
Discharge Problem:
Acute blood loss anemia, Acute metabolic encephalopathy
Interventions
Interventions:
*Risk Screen - Suicide Last Done: 09/08/24 11:09
*General Assessment Last Done: 09/08/24 11:09
*Neglect/Abuse Screening Last Done: 09/08/24 11:09
ED- Fall Risk Assessment Last Done: 09/08/24 11:46
*Nursing Disposition Last Done: 09/08/24 13:12
ED- Pulmonary Assessment Last Done: 09/08/24 11:46
ED-Psychological Assessment Last Done: 09/08/24 11:46
ED- Neurological Assessment Last Done: 09/08/24 11:46
ED- Cardiac Assessment Last Done: 09/08/24 11:46
ED Swallowing Screen Last Done: 09/08/24 11:46
Discharge Date and Time
Discharge Date/Time: 09/08/24 13:25
[2024-09-08 11:50] LABS: Venous Blood Gas B.E. -4.6 mmol/L (-4 to +4); Venous Blood Gas HCO3 19.6 mmol/L (22-27); Venous Blood Gas pCO2 31 mmHg (35-48); Venous Blood Gas pH 7.41 (7.32-7.43); Venous Blood Gas pO2 86 mmHg (30-50)
[2024-09-08 11:51] LABS: Venous Blood Gas O2 Therapy 97
[2024-09-08 11:55] LABS: % Basophils 0.3 % (0-2); % Eosinophils 1.2 % (0-6); % Immature Granulocytes 0.6 % (0-0.5); % Lymphocytes 13.4 % (20.5-51.1); % Monocytes 7.4 % (1.7-9.3); % Neutrophils 77.1 % (42.2-75.2); Absolute Eosinophils 0.1 10^3/uL (0-0.7); Absolute Immature Granulocytes 0.1 10^3/uL (0-0.05); Absolute Lymphocytes 1.1 10^3/uL (1.2-3.4); Absolute Monocytes 0.6 10^3/uL (0.1-0.6); Hematocrit 17.7 % (39.0-52.0); Hemoglobin 6.1 g/dL (13.0-18.0); Mean Corp Hgb Conc. 34.5 g/dL (33.0-37.0); Mean Corpuscular Hgb 31.8 pg (27.0-31.0); Mean Corpuscular Volume 92.2 fL (80.0-94.0); Nucleated Red Blood Cells % 0 % (-); Platelet Count 108 10^3/uL (130-400); Red Blood Cell Count 1.92 10^6/uL (4.70-6.10); Red Cell Dist. Width 18.2 % (11.5-14.5); White Blood Cell Count 7.8 10^3/uL (4.8-10.8)
[2024-09-08 11:59] LABS: Ammonia 64 umol/L (9-30); INR 1.44; PT 17.3 Sec (11.4-14.6)
[2024-09-08 12:03] LABS: ALT (SGPT) 23 U/L (0-50); AST (SGOT) 40 U/L (17-59); Albumin 2.8 g/dl (3.5-5.0); Alkaline Phosphatase 74 U/L (38-126); Blood Urea Nitrogen 49 mg/dl (9-20); Calcium 8.3 mg/dl (8.4-10.2); Carbon Dioxide 19 mmol/L (22-30); Chloride 107 mmol/L (98-107); Estimated Creatinine Clearance 53 ml/min; Glucose 124 mg/dl (70-99); Potassium 4.6 mmol/L (3.5-5.1); Sodium 137 mmol/L (135-145); Total Bilirubin 2.7 mg/dl (0.2-1.3); eGFR 52.64
[2024-09-08 12:12] LABS: Urine Albumin Negative (Neg - Trace); Urine Bilirubin 1+ (Negative); Urine Character Clear (Clear); Urine Color Yellow; Urine Glucose Negative (Negative); Urine Ketone Negative (Negative); Urine Leukocyte 1+ (Negative); Urine Nitrite Negative (Negative); Urine Occult Blood Negative (Negative); Urine Specific Gravity 1.015 (<1.030); Urine Urobilinogen Negative (Neg - 1+)
[2024-09-08 12:20] LABS: Urine Squamous Cell 21-25 /LPF (Few)
[2024-09-08 12:21] LABS: Urine Bacteria Few (Negative); Urine Red Blood Cell 0-2 /HPF (0-2)
[2024-09-08] MEDS: DUPHALAC/CHRONULAC 20 GRAMS PO ×2 (13:02→15:25)
--- NOTE | 2024-09-08 13:03 | HPS.HSE ---
Addendum entered and electronically signed by Marky Meza MD 09/08/24 15:27:
IR planning on paracentesis in the morning. GI planning on endoscopy tomorrow. GI recommended strict n.p.o. in case earlier endoscopy recommended. Holding all oral medications. Can use lactulose enemas if needed.
Original Note:
Family Physician
-
Family Physician: Drake Goss
Chief Complaint
-
confusion, rectal bleeding
History of Present Illness
59-year-old male past medical history of cirrhosis with recurrent ascites, upper GI bleeding, COPD presenting for altered mental status. Patient has been profoundly altered for the past 12 hours. He woke up early this morning throwing toilet paper
around the house and having difficulty recognizing his family. He has been having black/red rectal bleeding for the past 2 days. He had an episode of bright red vomiting today. He gets weekly paracentesis on Mondays. Belly is getting more
distended. No abdominal pain. He has been having little bit of loose stools 2-3 times a day. He has been taking lactulose and rifaximin.
Patient was recently admitted from 08/17 to 08/24 for recurrent SBP, hepatic encephalopathy and anemia. Required 7 units of blood transfusion. He underwent endoscopy and colonoscopy. EGD showed portal hypertensive gastropathy with active bleeding
treated with argon plasma coagulation. He had intermittent superficial nasal bleeding throughout the hospitalization secondary to trauma and Mohs procedure shortly prior.
Patient has not drank any alcohol since January. No smoking.
Medical History
Past Medical History
Past Medical History: Reports Other (recurrent ascites, upper GI bleeding, COPD)
Past Surgical History: Reports None
Social History
Tobacco: Non-smoker
Alcohol: Former
Drug: None
Family History
Family History: Not pertinent
Allergies / Home Medications
Allergies reflects when Allergies were last updated in [employer].
Home Medications with original date entered in [employer]
Allergy/Medication List:
Allergies
Allergy/AdvReac Type Severity Reaction Status Date / Time
No Known Allergies Allergy Verified 09/08/24 11:52
Home Medications
thiamine HCl (vitamin B1) 100 mg tablet 100 mg PO DAILY Supplement 03/13/24
budesonide 160 mcg-glycopyr 9 mcg-formot 4.8 mcg/actuation HFA inhaler (Breztri Aerosphere) 2 inh inhalation R BID Lung/Breathing Issues 04/11/24
magnesium oxide 400 mg PO BID Supplement 06/28/24
rifaximin 550 mg tablet (Xifaxan) 550 mg PO BID hepatic encephalopathy 06/28/24
lactulose 20 gram/30 mL oral solution 20 g (30 mL) PO TID Liver issues #2,880 mL 07/01/24
pantoprazole 40 mg tablet,delayed release (Protonix) 40 mg PO BID Gastrointestinal Issue 08/02/24
ferrous sulfate 325 mg (65 mg iron) tablet (FeroSul) 325 mg PO DAILY 30 days #30 tabs 08/07/24
trazodone 50 mg tablet 25 mg (1/2 x 50 mg) PO HS PRN Anxiety/insomnia #30 tabs 08/07/24
furosemide 20 mg tablet 20 mg PO DAILY Fluid retention/Swelling #30 tabs 08/24/24
spironolactone 25 mg tablet 25 mg PO DAILY Liver cirrohosis #30 tabs 08/24/24
tramadol 50 mg tablet 50 mg PO BID PRN Mod sev pain #10 tabs 08/24/24
lidocaine 4 % topical patch 1 patch topical DAILYPRN PRN right knee and riht shoulder 09/08/24
miconazole nitrate 2 % topical powder (Miconazorb AF) 1 applic topical BID creeses 09/08/24
ondansetron HCl 4 mg tablet 4 mg PO Q6HPRN PRN nasuea 09/08/24
Review of Systems
-
History Source: Patient
A 12 point ROS was completed and negative except as noted: Yes
Constitutional: Reports No Symptoms
EENT: Reports No Symptoms
Respiratory: Reports No Symptoms
Cardiac: Reports No Symptoms
Abdomen/GI: Reports See HPI
: Reports No Symptoms
Musculoskeletal: Reports No Symptoms
Skin: Reports No Symptoms
Neurological: Reports See HPI
Endocrine: Reports No Symptoms
Hematologic/Lymphatic: Reports No Symptoms
Psych: Reports No Symptoms
Physical Exam
Vital Signs
Vital Signs
Temp Pulse Resp BP Pulse Ox
98.0 F 95 15 142/64 100
09/08/24 11:09 09/08/24 12:15 09/08/24 12:15 09/08/24 12:01 09/08/24 12:15
Physical Exam
General: Well Developed, Well Nourished and No Apparent Distress
HEENT: NormoCephalic, Moist mucous membranes and Atraumatic
Respiratory: Clear
Cardiac: S1/S2 and Regular Rhythm; No Murmur or Rub
GI: Soft, Non Distended, Normal Bowel Sounds and Distended; No Organomegaly
Rectal: Deferred by Provider
Musculoskeletal: No Clubbing, No Cyanosis and No Edema
Skin: No Rash
Neuro: Nonfocal/grossly intact
Laboratory Results
-
09/08/24 11:38
09/08/24 11:38
Laboratory Results
PT 17.3 Sec (11.4-14.6) H 09/08/24 11:38
INR 1.44 09/08/24 11:38
Total Bilirubin 2.7 mg/dl (0.2-1.3) H 09/08/24 11:38
AST 40 U/L (17-59) 09/08/24 11:38
ALT 23 U/L (0-50) 09/08/24 11:38
Alkaline Phosphatase 74 U/L (38-126) 09/08/24 11:38
Data Reviewed
-
Lab Data: Labs Reviewed by me
Old Records: Reviewed
Impression/Plan
-
IMPRESSION:
PLAN:
# Hematemesis/melena/upper GI bleeding concern for bleeding from portal gastropathy
# Recent GI bleeding from portal gastropathy
-Hemoglobin of 6.1 from 8.5 previously
-Patient recently had small bowel enteroscopy/colonoscopy which showed severe portal hypertensive gastropathy which was cauterized
-N.p.o.
-2 units of blood
-Protonix drip
-Octreotide drip
-Ceftriaxone
-GI consulted
# Decompensated cirrhosis with recurrent ascites
-Thought to be from prior alcohol use
-Patient had paracentesis on 09/03 with 6600 cc of fluid drained
-Patient normally scoped every Tuesday
-IR consult for paracentesis
# Metabolic encephalopathy secondary to recurrent hepatic encephalopathy
-ABG unremarkable
-Urinalysis unremarkable
-Check ammonia level
-Continue lactulose, Xifaxan
-Hold trazodone
# Acute kidney injury likely prerenal from blood loss
-Hold Lasix
-Hold spironolactone
-Albumin dose ordered
-Nephrology consulted
# Chronic thrombocytopenia secondary to cirrhosis
-Platelets of 108 improved from 40 a few weeks ago
Recent facial trauma secondary to Mohs surgery/fall
-Ecchymosis improved
Essential hypertension
History of COPD
Full code
DVT prophylaxis�SCDs
N.p.o.
[2024-09-08] MEDS: SANDOSTATIN 500.6 MCG IV (14:03)
[2024-09-08] MEDS: ALBUMIN 5% 250 IV (14:07)
--- NOTE | 2024-09-08 14:07 | CON.GI ---
Consultation
-
Date/Time Consultation Requested: 09/08/2024, 12:56
Date/Time Consultation Performed: 09/08/2024, 1400
Requesting Provider: Dr. Meza
Performing Provider: Dr. Kee
Reason for Consultation: UGIB, hx of cirrhosis, bloody stools
Medical History
Chief Complaint / HPI
Chief Complaint: Confusion
History of Present Illness:
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
(s/p prior EGD/push-enteroscopy with APC for treatment of PHG 08/22/24 during prior admission), hx of prior post-polypectomy bleed, chronic HCV (s/p treatment with Epclusa s/p SVR), CVA, HTN, COPD, and chronic thrombocytopenia who presented with
altered mental status and concern for recurrent GI bleeding.
Patient is a poor historian and currently confused on exam thus history is limited as also unable to reach family this afternoon. Per report, patient became acutely altered yesterday afternoon and had difficulty recognizing family and throwing
toilet paper around. Noted to have an episode of vomiting yesterday with concern for specks of coffee ground material and blood. He has been noted to have dark black stools as well over the past 2-3 days. Patient reports he had another episode of
coffee ground emesis with specks of blood. Does note had a prior Mohs procedure and previous significant epistaxis. He is unsure if he's had further epistaxis at home. Notes worsening abdominal distension but without any pain. Per family, he has
been taking lactulose and rifaximin at home. No other fevers, chills or other infectious/localizing symptoms.
Of note, patient was previously admitted here at from 08/17 to 08/24 for recurrent SBP, hepatic encephalopathy and anemia. Required 7 units of blood transfusion during that hospitalization. He underwent endoscopy and colonoscopy on 08/22/2024
as detailed below. EGD showed portal hypertensive gastropathy with active bleeding treated with argon plasma coagulation. He also had intermittent superficial epistaxis throughout the hospitalization secondary to trauma and Mohs procedure shortly
prior. Recently underwent last paracentesis on 09/03 with (-) 6.6 L removed and (-) SPB, usually receives paracentesis on weekly basis.
Prior Endoscopic Hx:
SB Enteroscopy (melena and anemia) 08/22/2024- Impression: Normal esophagus without EV, severe PHG in the gastric antrum s/p coagulation with APC. Incidental HH without any gastric varices. No significant pathology in duodenum or proximal jejunum.
Advised to have a repeat EGD in 4-8 weeks for f/u with repeat APC
Colonoscopy (BERRY and melena) 08/22/2024- Impression: Fair prep (despite two day prep), diverticulosis, one 8 mm polyp in SC (not resected), old ovesco clip seen in AC, difffuse colopathy and non-bleeding internal hemorrhoids. Advised a repeat
colonoscopy in 6-12 months given fair prep
EGD (melena) 06/29/2024- Impression: Normal esophagus (no varices), PHG, normal duodenum
In the ED, patient was afebrile, HD-stable with HR 90-100s. Labs notable for BUN 49 (previously 16) and Warning Coordination Meteorologist 1.5 and CBC with Hgb 6.1 (previously 8.5 on 09/03) with WBC 7.8 and plts 108. He was ordered 2 uPRBCs and statrted on IV PPI gtt, IV
Octreotide and IV Ceftriaxone and admitted to medicine for further management.
Past Medical History
Past Medical History: Other (As listed above- Decompensated HCV/EtOH cirrhosis c/b recurrent HE and GI bleeding 2/2 oozing PHG and recurrent ascites)
Past Surgical History: Other (Mohs surgery)
Social History
Tobacco: Non-Smoker
Alcohol: Former
Drug: None
Family History
Family History: Reviewed & Not Pertinent
Allergies / Home Medications
Allergy/AdvReac Type Severity Reaction Status Date / Time
No Known Allergies Allergy Verified 09/08/24 11:52
�Medication �Instructions �Recorded
thiamine HCl (vitamin B1) 100 mg 100 mg PO DAILY Supplement 03/13/24
tablet
budesonide 160 mcg-glycopyr 9 2 inh inhalation R BID 04/11/24
mcg-formot 4.8 mcg/actuation HFA Lung/Breathing Issues
inhaler (Breztri Aerosphere)
magnesium oxide 400 mg PO BID Supplement 06/28/24
rifaximin 550 mg tablet (Xifaxan) 550 mg PO BID hepatic 06/28/24
encephalopathy
lactulose 20 gram/30 mL oral 20 g (30 mL) PO TID Liver issues 07/01/24
solution #2,880 mL
pantoprazole 40 mg tablet,delayed 40 mg PO BID Gastrointestinal Issue 08/02/24
release (Protonix)
ferrous sulfate 325 mg (65 mg 325 mg PO DAILY 30 days #30 tabs 08/07/24
iron) tablet (FeroSul)
trazodone 50 mg tablet 25 mg (1/2 x 50 mg) PO HS PRN 08/07/24
Anxiety/insomnia #30 tabs
furosemide 20 mg tablet 20 mg PO DAILY Fluid 08/24/24
retention/Swelling #30 tabs
spironolactone 25 mg tablet 25 mg PO DAILY Liver cirrohosis 08/24/24
#30 tabs
tramadol 50 mg tablet 50 mg PO BID PRN Mod sev pain #10 08/24/24
tabs
lidocaine 4 % topical patch 1 patch topical DAILYPRN PRN right 09/08/24
knee and riht shoulder
miconazole nitrate 2 % topical 1 applic topical BID creeses 09/08/24
powder (Miconazorb AF)
ondansetron HCl 4 mg tablet 4 mg PO Q6HPRN PRN nasuea 09/08/24
Review of Systems
-
All other systems: A 12 pt ROS was Negative except as stated above in HPI
Vital Signs
Temp Pulse Resp BP Pulse Ox
98.9 F 107 17 117/40 100
09/08/24 13:00 09/08/24 13:45 09/08/24 13:45 09/08/24 13:40 09/08/24 13:45
Physical Exam
Exam
General: No Apparent Distress and Other (Confused, chronically-ill appearing male)
HEENT: Normocephalic, Anicteric and Moist Mucous Membranes
Respiratory: Other (Normal WOB on room air)
Cardiac: S1/S2 and Regular Rhythm
GI: Soft, Non Tender and Distended
Musculoskeletal: No Edema
Skin: Warm
Neuro: Nonfocal/Grossly Intact and Other (AAOx2 (not time), +Asterixis)
Results
WBC 7.8 10^3/uL (4.8-10.8) 09/08/24 11:38
Hgb 6.1 g/dL (13.0-18.0) L* D 09/08/24 11:38
Hct 17.7 % (39.0-52.0) L* 09/08/24 11:38
MCV 92.2 fL (80.0-94.0) 09/08/24 11:38
Plt Count 108 10^3/uL (130-400) L D 09/08/24 11:38
Absolute Neuts (auto) 6.0 10^3/uL (1.4-6.5) 09/08/24 11:38
PT 17.3 Sec (11.4-14.6) H 09/08/24 11:38
INR 1.44 09/08/24 11:38
Sodium 137 mmol/L (135-145) 09/08/24 11:38
Potassium 4.6 mmol/L (3.5-5.1) 09/08/24 11:38
Chloride 107 mmol/L (98-107) 09/08/24 11:38
Carbon Dioxide 19 mmol/L (22-30) L 09/08/24 11:38
BUN 49 mg/dl (9-20) H 09/08/24 11:38
Creatinine 1.5 mg/dL (0.7-1.3) H 09/08/24 11:38
Calcium 8.3 mg/dl (8.4-10.2) L 09/08/24 11:38
Total Bilirubin 2.7 mg/dl (0.2-1.3) H 09/08/24 11:38
AST 40 U/L (17-59) 09/08/24 11:38
ALT 23 U/L (0-50) 09/08/24 11:38
Alkaline Phosphatase 74 U/L (38-126) 09/08/24 11:38
Prior Endoscopic Hx:
SB Enteroscopy (melena and anemia) 08/22/2024- Impression: Normal esophagus without EV, severe PHG in the gastric antrum s/p coagulation with APC. Incidental HH without any gastric varices. No significant pathology in duodenum or proximal jejunum.
Advised to have a repeat EGD in 4-8 weeks for f/u with repeat APC
Colonoscopy (BERRY and melena) 08/22/2024- Impression: Fair prep (despite two day prep), diverticulosis, one 8 mm polyp in SC (not resected), old ovesco clip seen in AC, difffuse colopathy and non-bleeding internal hemorrhoids. Advised a repeat
colonoscopy in 6-12 months given fair prep
EGD (melena) 06/29/2024- Impression: Normal esophagus (no varices), PHG, normal duodenum
Assessment / Plan
-
Mr Mazariegos is a 59 y.o male with past medical history significant for decompensated cirrhosis (HCV vs EtOH) well-known to our group which has been complicated by recurrent hospitalizations with HE secondary to acute on chronic GI bleeding 2/2 PHG
(s/p prior EGD/push-enteroscopy with APC for treatment of PHG 08/22/24 during prior admission), hx of prior post-polypectomy bleed, chronic HCV (s/p treatment with Epclusa s/p SVR), CVA, HTN, COPD, and chronic thrombocytopenia who presented with
altered mental status and concern for recurrent UGIB bleeding.
#UGIB
#Hematemesis vs #Coffee Ground Emesis
#Acute Blood Loss Anemia 2/2
#Acute on Chronic PHG (s/p prior SB w/ APC 08/2024)
#Decompensated EtOH/HCV Cirrhosis
#Recurrent HE 2/2 Acute on Chronic GI Bleeding
#Recurrent, Diuretic-Refractory Ascites
#TYSON
Impression: Patient presenting from home and brought in by family with concern for recurrent HE found to have acute anemia with Hgb 6s (previously 8.5 on 09/03) and elevated BUN concerning for recurrent UGIB. Patient notes throwing up coffee grounds
with flecks of blood. Doubt variceal UGIB as patient was recently scoped two weeks ago where a SB enteroscopy performed on 08/22/24 was unrevealing for any EV/GV, however found to have severe PHG in the gastric antrum where he was treated with APC.
No other pathology in small bowel. Last colonoscopy 08/22/2024 without any source of bleed given melena but with fair prep. Etiology highly suspicious for recurrent UGIB in setting of known PHG. Differential also includes post-APC induced ulceration
given recent APC treatment two-weeks earlier but less likely. No EV/GV seen on prior recent EGD and again doubt non-variceal UGIB. Remains HD-stable without any episodes of hematemesis or on admission. Would benefit from ongoing blood transfusions
and resuscitation prior to endoscopy.
Recommendations:
- Ensure at least two large bore IVs at all times
- Keep strict NPO
- Ordered 2 uPRBCs, please f/u post-tranfusion CBC
- Trend Hgb with serial CBC. Please avoid over-transfusions as not to worsen portal-hypertensive bleeding
- Given IV Protonix 80 mg bolus followed by IV PPI x 72 hrs
- IV Octreotide gtt x 72 hrs
- Start IV Ceftriaxone for SBP ppx given UGIB
- Plan to perform EGD tomorrow, 09/09/2024, for further evaluation. If recurrent bleeding will consider sooner EGD pending clinical course
- Hold all diuretics given UGIB to avoid hypotension and TYSON. Suspect pre-renal / hypovolemia in setting of GI bleed
- S/p IV albumin in ED. Very low suspicion for HRS, check urine studies
- Nephrology consulted given TYSON, appreciate recs
- Favor low-volume paracentesis (no more than 4L given TYSON) tomorrow prior to endoscopy given his profound distension for anesthesia purposes particularly if patient were to require intubation. Please send total cell-count with diff to r/o SBP
- May give lactulose enemas from below, avoid lactulose from above if sooner EGD were to be indicated
- Avoidance of all NSAIDs
- Rest of care per primary team
Discussed with primary internal medicine team this afternoon.
Data Reviewed
-
Radiology: Image Personally Visualized and interpreted and Report Reviewed by me
Old Records: Reviewed
-
-
Thank you for consultation and allowing me to participate in the patient's care. Please call the civil engineering professional GI physician during the after hours with any questions or concerns.
--- NOTE | 2024-09-08 14:27 | W.CON.NEPH ---
Consultation
-
Date/Time Consultation Requested: 09/08/24 1300
Date/Time Consultation Performed: 09/08/24 1400
Requesting Provider: Dr. Meza
Performing Provider: Dr. Jennings
Reason for Consultation: TYSON
Medical History
-
Chief Complaint: Confusion
History of Present Illness:
This is a 59-year-old gentleman with decompensated liver failure due to hepatitis C and alcohol. His hepatitis C was previously treated with Epclusa with subsequent eradication. He has routine paracenteses. His last paracentesis was 09/03/2024.
He then began having dark stools. He had recently been in the hospital at the end of August with recurrent abdominal ascites and confusion. He was stabilized and subsequently discharged on September 03. He had acute kidney injury during that last
visit which improved and his Aldactone and furosemide were restarted prior to discharge. He returned to the emergency room again because overnight he began with significant confusion and was unable to recognize anyone in his family. They brought
him into the emergency room where he was felt to be in hepatic encephalopathy. His hemoglobin was also quite low at 6.1. He had acute kidney injury with a creatinine of 1.5.
Past Medical History
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
syndrome, anxiety, insomnia, History of GI bleed secondary to portal hypertension, colon polyp with post-polypectomy bleed, spinal leak with patch, tooth extraction
Social History
Tobacco: Smoker
Alcohol: Former
Family History
Family History: Not Pertinent
Allergies / Home Medications
Allergy/AdvReac Type Severity Reaction Status Date / Time
No Known Allergies Allergy Verified 09/08/24 11:52
�Medication �Instructions �Recorded �Confirmed �Type
thiamine HCl (vitamin B1) 100 mg 100 mg PO DAILY Supplement 03/13/24 09/08/24 History
tablet
budesonide 160 mcg-glycopyr 9 2 inh inhalation R BID 04/11/24 09/08/24 History
mcg-formot 4.8 mcg/actuation HFA Lung/Breathing Issues
inhaler (Breztri Aerosphere)
magnesium oxide 400 mg PO BID Supplement 06/28/24 09/08/24 History
rifaximin 550 mg tablet (Xifaxan) 550 mg PO BID hepatic 06/28/24 09/08/24 History
encephalopathy
lactulose 20 gram/30 mL oral 20 g (30 mL) PO TID Liver issues 07/01/24 09/08/24 Rx
solution #2,880 mL
pantoprazole 40 mg tablet,delayed 40 mg PO BID Gastrointestinal Issue 08/02/24 09/08/24 History
release (Protonix)
ferrous sulfate 325 mg (65 mg 325 mg PO DAILY 30 days #30 tabs 08/07/24 09/08/24 Rx
iron) tablet (FeroSul)
trazodone 50 mg tablet 25 mg (1/2 x 50 mg) PO HS PRN 08/07/24 09/08/24 Rx
Anxiety/insomnia #30 tabs
furosemide 20 mg tablet 20 mg PO DAILY Fluid 08/24/24 09/08/24 Rx
retention/Swelling #30 tabs
spironolactone 25 mg tablet 25 mg PO DAILY Liver cirrohosis 08/24/24 09/08/24 Rx
#30 tabs
tramadol 50 mg tablet 50 mg PO BID PRN Mod sev pain #10 08/24/24 09/08/24 Rx
tabs
lidocaine 4 % topical patch 1 patch topical DAILYPRN PRN right 09/08/24 09/08/24 History
knee and riht shoulder
miconazole nitrate 2 % topical 1 applic topical BID creeses 09/08/24 09/08/24 History
powder (Miconazorb AF)
ondansetron HCl 4 mg tablet 4 mg PO Q6HPRN PRN nasuea 09/08/24 09/08/24 History
Review of Systems
-
No chest pain or abdominal pain. He has no recollection of the last 24 hours.
All other systems: Negative unless noted
Physical Exam
Vital Signs
Vital Signs
Temp Pulse Resp BP Pulse Ox
98.9 F 107 17 117/40 100
09/08/24 13:00 09/08/24 13:45 09/08/24 13:45 09/08/24 13:40 09/08/24 13:45
Lab Results
WBC 7.8 10^3/uL (4.8-10.8) 09/08/24 11:38
RBC 1.92 10^6/uL (4.70-6.10) L 09/08/24 11:38
Hgb 6.1 g/dL (13.0-18.0) L* D 09/08/24 11:38
Hct 17.7 % (39.0-52.0) L* 09/08/24 11:38
Plt Count 108 10^3/uL (130-400) L D 09/08/24 11:38
Sodium 137 mmol/L (135-145) 09/08/24 11:38
Potassium 4.6 mmol/L (3.5-5.1) 09/08/24 11:38
Chloride 107 mmol/L (98-107) 09/08/24 11:38
Carbon Dioxide 19 mmol/L (22-30) L 09/08/24 11:38
BUN 49 mg/dl (9-20) H 09/08/24 11:38
Creatinine 1.5 mg/dL (0.7-1.3) H 09/08/24 11:38
eGFR 52.64 09/08/24 11:38
Glucose 124 mg/dl (70-99) H 09/08/24 11:38
Calcium 8.3 mg/dl (8.4-10.2) L 09/08/24 11:38
Albumin 2.8 g/dl (3.5-5.0) L 09/08/24 11:38
Laboratory Tests
08/24/24 09/03/24
07:45 08:36
Hgb 8.5 L
Carbon Dioxide 19 L
BUN 16
Creatinine 1.0
Physical Exam
Patient is awake alert oriented and in no distress. Mood and affect were pleasant, insight and judgment were fair. Pupils are equal round and reactive to light, extraocular movements are intact, sclera were anicteric. Hearing was normal, ears and
nose are intact. Oropharynx was clear. Neck was supple with trachea midline and no thyromegaly. Heart was regular rate and rhythm without rubs. Lower extremities without edema. Lungs were clear to auscultation bilaterally and with normal
excursion. Abdomen was soft, nontender, with normal active bowel sounds, and no hepatosplenomegaly. Skin was without rash and with normal turgor. Ecchymoses noted underneath both eyes
Data Reviewed
-
Radiology: Image Personally Visualized and interpreted (Chest x-ray on 09/03/2024 by my reading shows no acute disease)
Medical Tests (Nuc Med, Echo etc): Report Reviewed by me (Echocardiogram on 09/04/2024 shows ejection fraction 55% mild mitral stenosis, regurgitation, mild aortic stenosis)
Labs: Labs Reviewed by me
Old Records: Reviewed
Assessment/Plan
-
Assessment
TYSON
ESLD
Ascites
anemia
COPD
Thrombocytopenia
Plan
Hold Aldactone and Lasix
Transfuse packed red blood cells
Sandostatin, Protonix
Follow BMP
Discussed with family at bedside
Check urine studies when able
[2024-09-08] MEDS: NSS (PRESERVATIVE FREE) 20 ML IV (14:51)
[2024-09-08] MEDS: PROTONIX IV 80 MG IV (14:51)
[2024-09-08 15:14] LABS: Iron 57 ug/dl (49-181)
[2024-09-08 15:21] LABS: Urine Sodium < 5 mmol/L (30-90)
[2024-09-08 15:24] LABS: Percent Saturation 20 % (20-50); Total Iron Binding Capacity 280 ug/dl (261-462)
[2024-09-08] MEDS: STERILE WATER FOR INJECTION 20 ML IV (15:24)
[2024-09-08] MEDS: ROCEPHIN 2000 MG IV (15:24)
[2024-09-08] MEDS: PROTONIX 100 IV (15:46)
[2024-09-08 16:23] LABS: Folate 10.4 ng/ml (2.76-20); Vitamin B12 531 pg/ml (239-931)
--- NOTE | 2024-09-08 16:35 | PTCARENOTE ---
Received patient on admission from ED via stretcher. Patient transferred to bed x 4 assist. Patient due for 2 units PRBCs, octreotide, protonix push and infusion and albumin. Patient arrived with only 1 IV site that was not working. VAT RN up and
placed 3 new sites. Initiated octreotide and albumin on arrival. GI in to see patient and made aware that patient will need 3rd site for blood transfusion. Ok to give protonix IV push dose and begin infusion after albumin completed. Currently has
octreotide, protonix and PRBCs infusing. Patient remains Ox2, forgetful/confused; calls out instead of using call caballero d/t forgetfulness. Daughter was at bedside but went home.
--- NOTE | 2024-09-08 17:43 | PTCARENOTE ---
Patient unable to void laying in bed. Bladder scan showed >411. Stood at bedside with 1 assistance; still unable to void. BP stable when standing. Attempted straight cath but unable to pass. Able to pass sher catheter but with only 150ml return of
dark yellow/priyank urine. Dr Meza notified via tiger text; instructed to maintain sher and he entered order.
--- NOTE | 2024-09-08 18:36 | PTCARENOTE ---
2nd unit PRBCs infusing.
[2024-09-08] MEDS: DESENEX/MITRAZOL/ZEASORB 1 APPLIC TOPICAL (19:57)
--- NOTE | 2024-09-08 20:00 | PTCARENOTE ---
Patient received in bed. AAOx2, not to time. Forgetful. NSR on monitor, palpable pulses throughout, +2 scrotal edema noted. Lungs clear, pulse ox 98% on room air. Abdomen round distended with hypoactive bowel sounds. Stevens catheter draining
orange urine. #22 g in right forearm with PRBCs infusing, #22 g in LFA and #22 g in left hand with Protonix and Octreotide gtts infusing as ordered. Call caballero within reach
[2024-09-08] MEDS: SYMBICORT 160/4.5 MCG INHALER 2 PUFF INH (20:31)
[2024-09-09] VITALS (26 sets, daily range): BP systolic 86–157; BP diastolic 43–77; BMI 24.6
[2024-09-09] MEDS: SANDOSTATIN 500.6 MCG IV ×3 (00:58→11:29)
[2024-09-09] MEDS: PROTONIX 100 IV ×2 (01:14→10:09)
[2024-09-09 05:04] LABS: % Basophils 0.5 % (0-2); % Eosinophils 3.7 % (0-6); % Immature Granulocytes 0.8 % (0-0.5); % Lymphocytes 11.5 % (20.5-51.1); % Monocytes 6.6 % (1.7-9.3); % Neutrophils 76.9 % (42.2-75.2); Absolute Eosinophils 0.2 10^3/uL (0-0.7); Absolute Immature Granulocytes 0.1 10^3/uL (0-0.05); Absolute Lymphocytes 0.8 10^3/uL (1.2-3.4); Absolute Monocytes 0.4 10^3/uL (0.1-0.6); Hematocrit 17.8 % (39.0-52.0); Hemoglobin 6.4 g/dL (13.0-18.0); Mean Corpuscular Hgb 31.8 pg (27.0-31.0); Mean Corpuscular Volume 88.6 fL (80.0-94.0); Mean Platelet Volume 10.2 fL (7.4-10.4); Nucleated Red Blood Cells % 0 % (-); Platelet Count 80 10^3/uL (130-400); Red Blood Cell Count 2.01 10^6/uL (4.70-6.10); Red Cell Dist. Width 19.1 % (11.5-14.5); White Blood Cell Count 6.5 10^3/uL (4.8-10.8)
[2024-09-09 05:46] LABS: ALT (SGPT) 22 U/L (0-50); AST (SGOT) 36 U/L (17-59); Albumin 2.5 g/dl (3.5-5.0); Alkaline Phosphatase 47 U/L (38-126); Blood Urea Nitrogen 51 mg/dl (9-20); Calcium 7.8 mg/dl (8.4-10.2); Carbon Dioxide 18 mmol/L (22-30); Chloride 108 mmol/L (98-107); Estimated Creatinine Clearance 47 ml/min; Glucose 105 mg/dl (70-99); Potassium 4.7 mmol/L (3.5-5.1); Sodium 136 mmol/L (135-145); Total Bilirubin 4.3 mg/dl (0.2-1.3); Total Protein 4.5 g/dl (6.3-8.2)
[2024-09-09] MEDS: SPIRIVA RESPIMAT 2.5 MCG 2 PUFF INH (07:35)
[2024-09-09] MEDS: SYMBICORT 160/4.5 MCG INHALER 2 PUFF INH (07:35)
--- NOTE | 2024-09-09 07:56 | W.PN.HOSP.TC ---
Today's Communication/Plan
-
-NPO
-1 unit PRBC
-trend Hg (next check post transfusion)
-paracentesis
-EGD
-hold diuretics
-appreciate consultants
Assessment / Plan
Assessment / Plan
Mr. Viki Mazariegos is a 59 yo man with hx cirrhosis with ascites, UGIB, COPD, recent admission 08/17-08/24 for recurrent SBP, hepatic encephalopathy and anemia presents to the ER with confusion. He is found to be anemic with Hg 6.1 from 8.5
previously. He is admitted for further work up and treatment of hepatic encephalopathy and UGIB.
PLAN:
# Hematemesis/melena/upper GI bleeding concern for bleeding from portal gastropathy
# Recent GI bleeding from portal gastropathy
-Patient recently had small bowel enteroscopy/colonoscopy which showed severe portal hypertensive gastropathy which was cauterized
-Hemoglobin of 6.1 from 8.5 previously without appropriate rise overnight
-s/p 2 units PRBC; 3rd unit ordered this AM with persistently low Hg
-NPO
-Protonix drip
-Octreotide drip
-Ceftriaxone
-GI consulted
-PLan is for EGD today
# Decompensated cirrhosis with recurrent ascites
-Thought to be from prior alcohol use
-Patient had paracentesis on 09/03 with 6600 cc of fluid drained
-Patient normally scoped every Tuesday
-IR consult for paracentesis - repeat today
# Metabolic encephalopathy secondary to recurrent hepatic encephalopathy
-ABG unremarkable
-Urinalysis unremarkable
-NH3 64
-Continue lactulose, Xifaxan
-Hold trazodone
# Acute kidney injury likely prerenal from blood loss
-Hold Lasix
-Hold spironolactone
-Albumin dose ordered
-Nephrology consulted
# Chronic thrombocytopenia secondary to cirrhosis
-Platelets of 108 improved from 40 a few weeks ago
Recent facial trauma secondary to Mohs surgery/fall
-Ecchymosis improved
Essential hypertension
History of COPD
Full code
DVT prophylaxis�SCDs
N.p.o.
Anticipated Discharge: > 48 hours
Subjective/Interval History
-
Date of Service: September 09, 2024
mentation improved
no chest pain
abdomen distended
Objective Data
-
Labs:
Laboratory Results
09/09/24 09/09/24
04:41 05:17
WBC 6.5
Hgb 6.4 L* Pending
Hct 17.8 L* Pending
Plt Count 80 L D
Sodium 136
Potassium 4.7
Chloride 108 H
Carbon Dioxide 18 L
BUN 51 H
Creatinine 1.7 H
Glucose 105 H
Calcium 7.8 L
Total Bilirubin 4.3 H D
AST 36
ALT 22
Alkaline Phosphatase 47
Vital Signs:
Vital Signs
Temp Pulse Resp BP Pulse Ox
98.1 F 92 16 157/60 100
09/09/24 03:37 09/09/24 07:39 09/09/24 07:39 09/09/24 06:00 09/09/24 07:39
I&O
09/08/24 09/09/24 09/10/24
07:59 06:59 06:59
Intake Total
Output Total
Balance
Review of Systems
-
History Source: Patient
All other systems: Reviewed and negative
Physical Exam
-
General: Appears Chronically Ill
HEENT: Normocephalic and Other (orbital ecchymosis, sutured mohs procedure, dried blood)
Respiratory: Clear to Auscultation and Non Labored Respirations
Cardiac: Regular Rhythm and S1/S2
GI: Nontender, Normal Bowel Sounds and Distended
Musculoskeletal: No Clubbing, No Cyanosis and No Edema
Skin: Warm, Dry and Jaundice
Neuro: Awake and AO x 3
Psych: Calm
Data Reviewed
-
Diagnostic Radiology: Report Reviewed by me
Labs: Labs Reviewed by me
[2024-09-09] MEDS: DESENEX/MITRAZOL/ZEASORB 1 APPLIC TOPICAL (10:08)
--- NOTE | 2024-09-09 10:33 | W.PN.NEPH.PH ---
Today's Communication / Plan
-
follow BMP
Assessment/Plan
-
Assessment
TYSON
ESLD
Ascites
anemia
COPD
Thrombocytopenia
Plan
Holding Aldactone and Lasix
Transfuse packed red blood cells
Sandostatin, Protonix
Follow BMP
urine studies consistent with prerenal (anemia + liverdecompensation)
for paracentesis, given albumin afterwards
-
-
Date of Service: September 09, 2024
CC / HPI / ROS
-
Chief Complaint:
TYSON
History of Present Illness:
TYSON/Cr up to 1.7
Hgb marginally better at 6.4 after transfusion
BP stable
Review of Systems:
no CP/SOB
Labs
-
Labs:
WBC 6.5 10^3/uL (4.8-10.8) 09/09/24 04:41
RBC 2.01 10^6/uL (4.70-6.10) L 09/09/24 04:41
Plt Count 80 10^3/uL (130-400) L D 09/09/24 04:41
Sodium 136 mmol/L (135-145) 09/09/24 04:41
Potassium 4.7 mmol/L (3.5-5.1) 09/09/24 04:41
Chloride 108 mmol/L (98-107) H 09/09/24 04:41
Carbon Dioxide 18 mmol/L (22-30) L 09/09/24 04:41
BUN 51 mg/dl (9-20) H 09/09/24 04:41
Creatinine 1.7 mg/dL (0.7-1.3) H 09/09/24 04:41
eGFR 45.30 09/09/24 04:41
Glucose 105 mg/dl (70-99) H 09/09/24 04:41
Calcium 7.8 mg/dl (8.4-10.2) L 09/09/24 04:41
Albumin 2.5 g/dl (3.5-5.0) L 09/09/24 04:41
Physical Exam
-
Vital Signs:
Vital Signs
Temp Pulse Resp BP Pulse Ox
98.4 F 94 14 126/58 99
09/09/24 10:32 09/09/24 10:32 09/09/24 10:32 09/09/24 10:32 09/09/24 10:32
[2024-09-09 11:14] LABS: Body Fluid Mononuclear 69.4 %; Body Fluid Polymorphonuclear 30.6 %; Body Fluid WBC 121 /CUMM
[2024-09-09 11:15] LABS: Body Fluid Second Tech CMB
[2024-09-09] MEDS: FLEXBUMIN 100 IV (11:23)
[2024-09-09 11:26] LABS: Body Fluid Albumin < 1.0 g/dl; Body Fluid Amylase < 30 U/L; Body Fluid LDH < 90 U/L; Body Fluid Protein < 2.0 g/dl
--- NOTE | 2024-09-09 13:05 | PTCARENOTE ---
Pt received in bed @ 0700. Disoriented to time. Conversive but slow speaking. 99% on room air. Lungs clear to auscultation. Sinus rhythm on exhibit preparator. HR observed 80s - 90s. SBP 120s - 130s. MAP > 65. +2 scrotal edema. 1 unit of PRBC's
ordered for Hgb 6.4; transfused without apparent transfusion reaction. Sutures in right medial upper thigh and bridge of nose from pre-admission Mohs procedure. Pt taken for paracentesis. Right abdomen 4x4 and tegaderm post-procedure. NPO for
endoscopy. Protonix and Sandostatin gtt's infusing. New order for Albumin infusing. Pt brought to GI lab; report called including new ICU orders. Report given receiving ICU nurse.
[2024-09-09 13:12] LABS: Hematocrit 19.8 % (39.0-52.0); Hemoglobin 7.1 g/dL (13.0-18.0)
--- NOTE | 2024-09-09 13:15 | PTCARENOTE ---
Pt arrived to ICU at 1310 from GI. All vital signs downloaded from 0800 today. Pt arrived with a unit of PRBCs at bedside, not hung, from GI lab. Pt's unit of PRBCs needed to be hung by 1258, (while in GI lab). Spoke to Blood bank and blood unit
returned to blood bank. New unit issued and hung at 1425, when received. Complete assessment done and documented in worklist. PT SR as per monitor, BP stable, O2 sat 99% sat, lobes diminished at bases bilat. PT npo, PT had a formed black stool on
arrival to ICU. Stevens cath intact, draining mod amt of yellow urine.
--- NOTE | 2024-09-09 13:16 | CON.INTV ---
Addendum entered and electronically signed by Talon Viramontse MD 09/09/24 16:20:
Doc to Doc report provided to accepting ICU team
Clinical presentation, clinical course and data reviewed at length
Addendum entered and electronically signed by Talon Viramontes MD 09/09/24 15:24:
Patient remains without symptoms
Systolic pressure 120s, pulse 70s to 80s, breathing at 16, 98% on room air
Reviewed at length with Dr. Kee
Patient currently receiving fourth unit of blood
Midline being placed. Additional [address] (difficult to get 18G)
Maintain current IV access
Anticipate transfer to [place] via helicopter soon
Original Note:
Consultation
Consultation Request
Date/Time Consultation Requested: 09/09
Date/Time Consultation Performed: 09/09
Reason for Consultation: Critical care
Medical History
-
History of Present Illness:
History obtained from the patient but most history is obtained from the chart, prior hospital records. Patient just returned from endoscopy. He is a 59-year-old male with history of significant alcohol use, hepatitis C, liver cirrhosis with
recurrent hospital stays for hepatic encephalopathy, GI bleed, portal hypertension/gastropathy, thrombocytopenia. Patient also had a recent fall in the last month after Mohs surgery, facial fracture with orbital ecchymoses and epistaxis. Patient
presents in 09/08 with change in mental status, confusion. ER records suggest patient was throwing toilet paper around the house and could not recognize family members. Upon arrival to [facility], afebrile, pulse 110, breathing at 22, 98%.
Hemoglobin noted to be 6.1, BUN 49, ammonia 64. Patient was admitted with acute hepatic encephalopathy and GI bleed. Records also suggest that patient has had dark black stools 2 days prior to admission and a possible episode of coffee-ground
emesis. Patient underwent upper endoscopy 09/09, type I isolated gastric varices noted with small amount of oozing and recent bleeding. Normal esophagus without esophageal varices. Patient recommended to be transferred to ICU in anticipation of
transfer to [place]
Presently, patient is feeling better since admission. He denies shortness of breath, nausea, chest pain.
.
PMH: COPD, GERD, hypertension, alcoholic/hepatitis cirrhosis with ascites/hepatic encephalopathy, portal gastropathy, SBP, chronic thrombocytopenia, hyponatremia, history of hepatitis C with treatment in the past, chronic pain syndrome, recurrent GI
bleed, history of colon polyp with post polypectomy bleed, spinal leak with patch therapy. History of stroke
Past Medical History
Past Medical History: None (See above)
Past Surgical History: None (See above)
Social History
Tobacco: Smoker (Continues to smoke 1 pack a day)
Alcohol: Former (Patient states he quit in April 2024, was an alcoholic prior)
Drug: None
Personal:
Living: With Family
Family History
Family History: Other (Family history of alcoholism)
Allergies / Home Medications
Allergies
Allergy/AdvReac Type Severity Reaction Status Date / Time
No Known Allergies Allergy Verified 09/08/24 11:52
Home Medications
�Medication �Instructions �Recorded �Confirmed �Last Taken �Type
thiamine HCl (vitamin B1) 100 mg 100 mg PO DAILY Supplement 03/13/24 09/08/24 09/07/24 History
tablet
budesonide 160 mcg-glycopyr 9 2 inh inhalation R BID 04/11/24 09/08/24 09/07/24 History
mcg-formot 4.8 mcg/actuation HFA Lung/Breathing Issues
inhaler (Breztri Aerosphere)
magnesium oxide 400 mg PO BID Supplement 06/28/24 09/08/24 09/07/24 History
rifaximin 550 mg tablet (Xifaxan) 550 mg PO BID hepatic 06/28/24 09/08/24 09/07/24 History
encephalopathy
lactulose 20 gram/30 mL oral 20 g (30 mL) PO TID Liver issues 07/01/24 09/08/24 09/07/24 Rx
solution #2,880 mL
pantoprazole 40 mg tablet,delayed 40 mg PO BID Gastrointestinal Issue 08/02/24 09/08/24 09/07/24 History
release (Protonix)
ferrous sulfate 325 mg (65 mg 325 mg PO DAILY 30 days #30 tabs 08/07/24 09/08/24 09/07/24 Rx
iron) tablet (FeroSul)
trazodone 50 mg tablet 25 mg (1/2 x 50 mg) PO HS PRN 08/07/24 09/08/24 09/02/24 Rx
Anxiety/insomnia #30 tabs
furosemide 20 mg tablet 20 mg PO DAILY Fluid 08/24/24 09/08/24 09/07/24 Rx
retention/Swelling #30 tabs
spironolactone 25 mg tablet 25 mg PO DAILY Liver cirrohosis 08/24/24 09/08/24 09/07/24 Rx
#30 tabs
tramadol 50 mg tablet 50 mg PO BID PRN Mod sev pain #10 08/24/24 09/08/24 09/03/24 Rx
tabs
lidocaine 4 % topical patch 1 patch topical DAILYPRN PRN right 09/08/24 09/08/24 Unknown History
knee and riht shoulder
miconazole nitrate 2 % topical 1 applic topical BID creeses 09/08/24 09/08/24 09/07/24 History
powder (Miconazorb AF)
ondansetron HCl 4 mg tablet 4 mg PO Q6HPRN PRN nasuea 09/08/24 09/08/24 Unknown History
Review of Systems
-
Unable to Obtain full review of systems at this time due to: Acuity
All other systems: Negative unless noted
Vitals / Labs / Diagnostic Testing
Vital Signs
Temp Pulse Resp BP Pulse Ox
98.4 F 94 14 126/58 99
09/09/24 10:32 09/09/24 10:32 09/09/24 10:32 09/09/24 10:32 09/09/24 10:32
Lab Data
09/09/24 04:41
Microbiology
09/08/24 12:05 Urine Urine Culture - Preliminary
Gram negative bacilli
Diagnostic Testing:
Physical Exam
-
HEENT: Normocephalic, Anicteric and Other (Mild periorbital ecchymoses, old blood in the mouth, dry mucosa)
Cardiovascular: S1/S2, Regular Rhythm, Murmur (n) and Rub (n)
Respiratory: Wheeze (n), Rales (n), Rhonchi (n) and Other (Decreased)
GI: Soft, Distended (Mildly distended) and Non Tender
Neurology: Awake, Alert and No Motor Deficits (Moves extremities, generally weak)
Skin: Other (Mildly pallorous)
General: Comfortable
Assessment
-
59-year-old male with complex medical history including alcohol/hepatitis cirrhosis, recurrent GI bleed requiring multiple transfusions, portal gastropathy, hepatic encephalopathy, ascites who presents with mental status changes, found to have
anemia, hyperammonia, requiring transfusion. EGD today revealed isolated gastric varices. Patient awaiting transfer to [place]
Acute GI bleed
Hematemesis/melena
Gastric varices, isolated per EGD 09/09
Decompensated cirrhosis, alcohol/hepatitis
Portal gastropathy, hepatic encephalopathy, recurrent ascites, history of SBP
Chronic thrombocytopenia
Acute hepatic encephalopathy
Admission ammonia 64
Acute renal insufficiency
Recent fall August 2024
Periorbital ecchymoses
History of epistaxis
Recent Mohs surgery
Conditions present prior to admission
History of hepatitis C status posttreatment
Multiple previous lacunar infarcts
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
Hypertension with history of hypertensive urgency
Hyponatremia
History of COPD
[id number], ongoing
History of cannabis dependence.
History of benzodiazepine dependence.
Umbilical and testicular hernia.
History of meningitis
Spinal fluid leak patch therapy 2001.
Plan/recommendations
At this time, patient is critically ill but appears to be stable
reviewed clinical course
He is currently receiving his fourth unit of blood
Reviewed EGD findings
Recommendation for Protonix drip, octreotide drip, IV ceftriaxone
Recommendation for eventual transfer to tertiary center for treatment of isolated gastric varices and consideration for additional treatment/TIPS
Status post paracentesis 09/09/2024, 4 L of ascites fluid removed
Moving forward
Continue with close monitoring of hemoglobin, transfuse as needed
Presently has 4 IVs, 2 20-gauge, 2 22-gauge
Poor access overall
Left
Admission hemoglobin 6.1, increased to 7.1
Continue to follow
Patient with history of COPD and requirement for steroids in the past, none over the past 4 months
Chest exam is clear
Chest x-ray is normal
Continue with outpatient regimen, replacement Symbicort/Spiriva for now
Smoking cessation counseling provided and will be ongoing
Nicotine patch continues
Patient states he has not had alcohol and 5 months
Remarkably, patient had recent dobutamine stress test 09/04/2024 which was within normal limits
DVT prophylaxis-mechanical prophylaxis
GI prophylaxis-on pantoprazole gtt
Of note, prior admissions were reviewed. Patient was DNR during prior admissions
When asked patient, he requesting full code at this time
Reviewed with critical care nursing, primary service
TCCT 31 min
Diagnostic data:
CXR 09/03/2024: No active disease
CT low-dose lung cancer screening 09/24/2021-no parenchymal nodules
CT chest low-dose lung cancer screening 05/18/[id number] 3 mm nodule right lower lobe unchanged compared to 2020, no evidence for new nodules, coronary calcifications noted
Chest CT with PE protocol 02/03/2024-no evidence for pulmonary embolism, complete atelectasis right lower lobe and majority of the right middle lobe, hepatic cirrhosis
Echocardiogram 09/04/2024: EF 55 %, mild aortic stenosis, bubble study negative, PA pressure 30 with normal RV size and function
Dobutamine stress 09/04/2024: Normal
--- NOTE | 2024-09-09 13:50 | W.DCSUMMARY ---
Discharge Summary
Discharge Data
Date of Admission: 09/08/24
Date of Discharge: 09/09/24
-
Pending Results: No
Hospital Course
Discharging Physician : Dr. Peggy Jacques
Disposition : [facility]
Primary care physician : Dr. Drake Goss
Principal Discharge diagnosis : Type 1 gastric varices, acute blood loss anemia
Hospital Course :
Mr. Viki Mazariegos is a 59 yo man with hx cirrhosis with ascites, UGIB, COPD, recent admission 08/17-08/24 for recurrent SBP, hepatic encephalopathy and anemia presents to the ER with confusion. He is found to be anemic with Hg 6.1 from 8.5
previously, and have TYSON with creatinine 1.5 (baseline 1.0) NH3 64. He was admitted for further work up and treatment of hepatic encephalopathy, TYSON, and UGIB.
He was started on IV protonix gtt, IV octreotide gtt, IV Ceftriaxone and strict NPO. His diuretics were held. He was given rectal lactulose with improvement in mentation the following morning. He received 2 units PRBC without appropriate rise;
s/p 3rd unit this morning and 4th unit ordered in afternoon. (Last Hg was 7.1 at 12PM).
He underwent paracentesis with 4L fluid removal. Fluid studies without evidence of SBP (WBC 121, PMN 30.6). Albumin ordered post paracentesis (received 12.5G 5% at 2PM).
He underwent EGD with finding of type 1 isolated gastric varices with a small amount of oozing and stigmata of recent bleeding. No endoscopic therapy was performed given large isolated gastric varices as these were not contiguous with the
GE-junction. Plan made for transfer to [facility] for further treatment of IGV-1 and consideration of TIPS and/or BRTO.
Patient agreed to transfer to [facility].
Time spent on discharge was 45 minutes.
Important imaging findings :
Procedure findings :
EGD 09/09/24
Impression: - Type 1 isolated gastric varices (IGV1, varices
located in the fundus) with a small amount of oozing
and stigmata of recent bleeding found in the gastric
fundus. This is the source of patient's presentation.
No endoscopic therapy was performed given large
isolated gastric varices as these were not contiguous
with the GE-junction
- Moderate portal hypertensive gastropathy
- Otherwise, normal stomach on direct and retroflexion
views
- Normal esophagus without any esophageal varices
- Small amount of red blood in the second portion of
the duodenum. No duodenal varices were visualized
- The examination was otherwise normal.
- No specimens collected.
Recommendation: - Return patient to ICU for ongoing care.
- Keep strict NPO
- Ensure two large bore IVs (18 gauge) at all times
- Trend serial Hgb, transfuse for goal Hgb > 7.0
- Continue IV PPI gtt and IV Ocreotide gtt
- IV Ceftriaxone 1 gm q daily
- Transfer to [facility] ([facility]) for further
treament of IGV-1 and consideration of TIPS and/or BRTO
Paracentesis 09/09/24
IMPRESSION:
Successful ultrasound-guided paracentesis yielding 4000 mL of ascitic fluid.
Discharge Plan
-
Patient Disposition: Acute Care Hospital
Discharge Orders:
Discharge Patient (As Directed); Ordered 09/09/24
Ordered By: Peggy Jacques
Discharge Date and Time
Print Language: POLISH
[2024-09-09] MEDS: ROCEPHIN 2000 MG IV (14:21)
[2024-09-09] MEDS: STERILE WATER FOR INJECTION 20 ML IV (14:22)
--- NOTE | 2024-09-09 15:09 | W.PN.UPDATE ---
Update Note
Progress Note Update
UPDATE:
Discussed with patient's family extensively regarding EGD findings earlier today along with primary internal medicine team and ICU team.
Further, discussed with patient's Transplant Coin Rolling Machine Operator, Dr. Ebenezer Dan, and on-call Transplant Coin Rolling Machine Operator at [facility], Dr. Dania Parmar, this afternoon after recent EGD demonstrated high-risk stigmata of IGV-1 with small oozing. No
endoscopic therapy was performed as unable to band IGV-1, as this is typically treated with IR interventions (ie TIPS and/or BRTO). Deferred further therapies at time of EGD (ie cyanoacrylate glue) given concern for worsening GV bleeding.
Received call around 1505 from ICU accepting physician, Dr. Zana Joyce. Spoke with him at length regarding patient's multiple prior hospitalizations along with recent decompensation with bleeding IGV-1 as source of his presentation. Accepted at
[facility] as a 'LEVEL 0 LIVER RESCUE' via [facility].
Updated primary teams regarding transfer which should hopefully be within the hour. Continue to follow previous recommendations as mentioned on EGD report. Will continue to follow closely while patient is at . Will discuss with family again this
afternoon.
--- NOTE | 2024-09-09 15:32 | PTCARENOTE ---
R upper arm Midline placed by IV team at bedside now. Pt cleared to go to [place] via helicopter, and are on their way now. Pt's daughter at bedside and also updated. Dr Kee also in to see pt.
--- NOTE | 2024-09-09 15:53 | PTCARENOTE ---
Report given to SUAD Goldstein from [facility]. 4th unit of PRBCs complete now. R upper midline placed at bedside by IV team. Helicopter team at bedside now, report given to flight RN. Pt remains SR, BP 119/54, T 98.4, 99% sat on R/A. Protonix and octreotide
infusing. Pt's daughter in room. Pt cleared to go to [facility] now.
== END 2024-09-09 16:49 | disposition short-term general hospital (02) | DRG 299 ==
LOC: ICU 12:58
PROVIDERS: Physician Assistant; Radiology Diagnostic Radiology; Registered Nurse; ADMITTING PHYSICIAN Hospitalist; ATTENDING PHYSICIAN Student in an Organized Health Care Education/Training Program; CONSULT PHYSICIAN Internal Medicine Critical Care Medicine; CONSULT PHYSICIAN Specialist; CONSULT PHYSICIAN Student in an Organized Health Care Education/Training Program; EMERGENCY PHYSICIAN Emergency Medicine; FAMILY PHYSICIAN Internal Medicine
PROC: 30233N1 Transfusion of Nonautologous Red Blood Cells into Peripheral Vein, Percutaneous Approach (ICD-10-PCS; 2024-09-08)
PROC: 0W9G3ZZ Drainage of Peritoneal Cavity, Percutaneous Approach (ICD-10-PCS; 2024-09-09)
PROC: 0DJ08ZZ Inspection of Upper Intestinal Tract, Via Natural or Artificial Opening Endoscopic (ICD-10-PCS; 2024-09-09)
DX: I86.4 Gastric varices (principal); G93.41 Metabolic encephalopathy; K76.6 Portal hypertension; D62 Acute posthemorrhagic anemia; N17.9 Acute kidney failure, unspecified; E87.1 Hypo-osmolality and hyponatremia; K92.1 Melena; K92.0 Hematemesis; J44.9 Chronic obstructive pulmonary disease, unspecified; I10 Essential (primary) hypertension; K31.89 Other diseases of stomach and duodenum; K70.31 Alcoholic cirrhosis of liver with ascites; K76.82 Hepatic encephalopathy; D69.59 Other secondary thrombocytopenia; B18.2 Chronic viral hepatitis C; G89.4 Chronic pain syndrome; G47.00 Insomnia, unspecified; K21.9 Gastro-esophageal reflux disease without esophagitis; I67.1 Cerebral aneurysm, nonruptured; F17.210 Nicotine dependence, cigarettes, uncomplicated; F41.9 Anxiety disorder, unspecified; Z86.73 Personal history of transient ischemic attack (TIA), and cerebral infarction without residual deficits; Z79.899 Other long term (current) drug therapy; Z86.61 Personal history of infections of the central nervous system
CPT/HCPCS: 88305; 49083; 80053; 81003; 81015; 82042; 82140; 82150; 82570; 82607; 82746; 82805; 83540; 83550; 83615; 84157; 84300; 85014; 85018; 85025; 85610; 86850; 86900; 86901; 86920; 86922; 87015; 87070; 87077; 87086; 87186; 87205; 88112; 89051; 94640; 99291; P9016; P9045; P9047

== ENCOUNTER 2024-09-20 19:06 | Inpatient (IN) | payer BC, SELFPAY ==
[2024-09-20] VITALS (20 sets, daily range): BP systolic 101–136; BP diastolic 50–70; BMI 27.7; BMI 25.1
--- NOTE | 2024-09-20 11:36 | EDRN ---
Modesta VELEZ in room w/ pt.
[2024-09-20 11:47] LABS: % Basophils 0.5 % (0-2); % Eosinophils 3.2 % (0-6); % Immature Granulocytes 0.6 % (0-0.5); % Lymphocytes 7.1 % (20.5-51.1); % Monocytes 8.6 % (1.7-9.3); Absolute Eosinophils 0.3 10^3/uL (0-0.7); Absolute Immature Granulocytes 0.1 10^3/uL (0-0.05); Absolute Lymphocytes 0.6 10^3/uL (1.2-3.4); Absolute Monocytes 0.7 10^3/uL (0.1-0.6); Absolute Neutrophils 6.5 10^3/uL (1.4-6.5); Hematocrit 24.4 % (39.0-52.0); Hemoglobin 8.1 g/dL (13.0-18.0); Mean Corp Hgb Conc. 33.2 g/dL (33.0-37.0); Mean Corpuscular Hgb 32.4 pg (27.0-31.0); Mean Corpuscular Volume 97.6 fL (80.0-94.0); Mean Platelet Volume 10.5 fL (7.4-10.4); Nucleated Red Blood Cells % 0 % (-); Platelet Count 59 10^3/uL (130-400); Red Cell Dist. Width 18.4 % (11.5-14.5); White Blood Cell Count 8.1 10^3/uL (4.8-10.8)
[2024-09-20 11:52] LABS: APTT 40.3 Sec (23.4-35.0); INR 1.52; PT 18.8 Sec (11.4-14.6)
--- NOTE | 2024-09-20 11:58 | ED.GENMED ---
History of Present Illness
General
Chief Complaint: Rectal Bleeding
Source: patient
Exam Limitations: none
Time Seen by Provider: 09/20/24 11:29
History of Present Illness
History of Present Illness:
59-year-old male with known history of cirrhosis, ascites recently here for gastric variceal bleeding flown down to [facility] presents with persistent rectal bleeding. He was discharged 5 days ago from [facility]. They never received a call and follow-up from [facility]. Starting yesterday they noted red blood per rectum. The thought it was coming from a hemorrhoid but it persisted today. Patient also has a
history of ascites and routinely gets his abdomen drained every week. Does not have one scheduled and notes distention. He denies a fever or significant abdominal pain. No chest pain. He feels fatigued. He is waiting to hear back from help
regarding a potential liver transplant.
Past History
Past History
ED Past Medical History: COPD, CVA, HTN, Psychiatric and Other
ED Past Surgical History: Other
Social History
Tobacco: Smoker
Alcohol: Former
Drug: None
Personal:
Living: with family
Employment: Employed
Family History
Family History: Diabetes and Other
Phy Exam
Physical Exam
Physical Exam:
General: Chronically ill-appearing male no acute respiratory distress
HEENT: Normocephalic sclera slightly icteric neck is supple
Heart: Regular rate and rhythm
Lungs: Clear no wheeze or rales
Abdomen is distended with ascites but soft and nontender. There is an umbilical hernia noted. There is site of ecchymosis noted over the prior site of paracentesis.
Rectal exam: External hemorrhoid noted no active bleeding. Stool on tip of glove is brown and heme-negative
Extremities: Mild edema bilateral lower extremities
Neurologic exam: Alert and oriented no facial asymmetry
Course
Orders/Labs/Results
Orders:
Orders
09/20/24 10:43
EKG [Electrocardiogram (*1)] Urgent
Reason for Study: Vertigo / Dizzy
09/20/24 10:44
EKG- Treatment ONCE
09/20/24 11:32
Type+Screen Urgent
Complete Blood Count/With Diff Urgent
Comprehensive Metabolic Panel Urgent
PTT Urgent
Prothrombin Time Urgent
09/20/24 11:50
Consult Interventional Radiology [[facility] CONSULT] Urgent
Consulting Provider: Mahin Kaur
Was physician already notified: Yes
Reason for Consult/Procedure: Paracentesis
Acknowledgement that appropriate orders are entered: Yes
HYDROmorphone [Dilaudid] 1 mg IV NOW STA
09/20/24 14:31
Body Fluid Cell Count Routine
What is the Body Fluid: peritoneal
Date Specimen was Collected: 09/20/24
Time Specimen was Collected: 14:31
09/20/24 15:45
Albumin Human 25% 100 ml [Flexbumin] 25 grams in 100 ml IV TODAY
09/20/24 17:25
Albumin Human 25% 50 ml [Flexbumin] 12.5 grams in 50 ml IV TODAY
Abnormal Lab Results
09/20/24
11:32
RBC 2.50 L 10^6/uL
(4.70-6.10)
Hgb 8.1 L g/dL
(13.0-18.0)
Hct 24.4 L %
(39.0-52.0)
MCV 97.6 H fL
(80.0-94.0)
MCH 32.4 H pg
(27.0-31.0)
RDW 18.4 H %
(11.5-14.5)
Plt Count 59 L 10^3/uL
(130-400)
MPV 10.5 H fL
(7.4-10.4)
Abs Immat Gran (auto) 0.1 H 10^3/uL
(0-0.05)
Absolute Lymphs (auto) 0.6 L 10^3/uL
(1.2-3.4)
Absolute Monos (auto) 0.7 H 10^3/uL
(0.1-0.6)
Immature Gran % 0.6 H %
(0-0.5)
Neutrophils % 80.0 H %
(42.2-75.2)
Lymphocytes % 7.1 L %
(20.5-51.1)
PT 18.8 H Sec
(11.4-14.6)
APTT 40.3 H Sec
(23.4-35.0)
Sodium 131 L mmol/L
(135-145)
BUN 36 H mg/dl
(9-20)
Glucose 152 H mg/dl
(70-99)
Calcium 8.2 L mg/dl
(8.4-10.2)
Total Bilirubin 3.1 H mg/dl
(0.2-1.3)
Alkaline Phosphatase 138 H U/L
(38-126)
Total Protein 4.9 L g/dl
(6.3-8.2)
Albumin 2.7 L g/dl
(3.5-5.0)
09/20/24 11:32
09/20/24 11:32
Vital Signs
Initial and Last Documented VS:
Initial Vital Signs
Temp Pulse Resp BP Pulse Ox
97.9 F 102 20 134/68 99
09/20/24 10:41 09/20/24 10:41 09/20/24 10:41 09/20/24 10:41 09/20/24 10:41
Last Documented Vital Signs
Temp Pulse Resp BP Pulse Ox
98.4 F 98 7 133/50 96
09/20/24 13:40 09/20/24 15:15 09/20/24 15:15 09/20/24 15:00 09/20/24 15:15
MDM/Problems Addressed
Differential Diagnosis Includes:
Patient with red rectal bleeding. Likely hemorrhoidal versus fissure. No bleeding on exam. Will check hemoglobin. Patient recurrent ascites. Consulted IR for paracentesis today. Do not suspect SBP given lack of fever or tenderness.
*Critical Care Note
Total Time (30-74mins, 75-104mins- exclusive of procedures): Not Applicable
Update Note
Update Note:
Patient was able to get to IR and had 5 L drained. Albumin was ordered but will run over the next 4 hours. states that he is very fatigued and disoriented. She is having trouble taking care of him because of this state. Hemoglobin reviewed
and is stable and actually increased from last week. Will admit to hospital for further observation
ED Attending Note
-
Portions of this chart may have been created with voice recognition software.� Occasional wrong word or��sound alike� substitutions may have occurred due to the inherent limitations of voice recognition software.
Discharge Plan
Departure
Patient Disposition: Admit
Date of Disposition: 09/20/24
Time of Disposition: 16:13
Admit to: Med/Surg
Presentation/result/management discussed w/ accepting MD/DO: Hospitalist
Discharge Problem:
Cirrhosis, alcoholic
Prescriptions:
No Action
thiamine HCl (vitamin B1) 100 mg tablet
100 mg PO DAILY
Breztri Aerosphere 160-9-4.8 mcg/actuation Hfa Aerosol Inhaler
2 inh INHALATION R BID
Xifaxan 550 mg Tablet
550 mg PO BID
magnesium oxide 400 mg magnesium Tablet
400 mg PO BID
lactulose 20 gram/30 mL Solution
20 g PO TID Qty: 2880 0RF
pantoprazole [Protonix] 40 mg tablet,delayed release (DR/EC)
40 mg PO BID
ferrous sulfate [FeroSul] 325 mg (65 mg iron) Tablet
325 mg PO DAILY 30 Days Qty: 30 0RF
spironolactone 25 mg Tablet
25 mg PO DAILY Qty: 30 0RF
furosemide 20 mg Tablet
20 mg PO DAILY Qty: 30 0RF
tramadol 50 mg tablet
50 mg PO BID PRN (Reason: Mod sev pain) Qty: 10 0RF
ondansetron HCl [Zofran] 4 mg Tablet
4 mg PO DAILYPRN PRN (Reason: nasuea)
lidocaine 4 % adhesive patch,medicated
1 patch topical DAILYPRN PRN (Reason: right knee and right shoulder)
miconazole nitrate [Miconazorb AF] 2 % powder
1 applic topical BID
Referrals:
Drake Goss DO [Family Provider] -
Interventions
Interventions:
*Risk Screen - Suicide Last Done: 09/20/24 11:30
*General Assessment Last Done: 09/20/24 11:30
*Neglect/Abuse Screening Last Done: 09/20/24 11:30
ED- Fall Risk Assessment Last Done: 09/20/24 11:30
*ED COVID-19 Vaccine History Last Done: 09/20/24 11:30
ER-Gvtuoe-Hgafjixcsd Assessment Last Done: 09/20/24 11:40
ED- Cardiac Assessment Last Done: 09/20/24 11:30
ED- Pulmonary Assessment Last Done: 09/20/24 11:30
Discharge Date and Time
Print Language: [place] ISLAND[place]
[2024-09-20 12:02] LABS: ALT (SGPT) 23 U/L (0-50); AST (SGOT) 40 U/L (17-59); Albumin 2.7 g/dl (3.5-5.0); Alkaline Phosphatase 138 U/L (38-126); Blood Urea Nitrogen 36 mg/dl (9-20); Calcium 8.2 mg/dl (8.4-10.2); Carbon Dioxide 23 mmol/L (22-30); Chloride 103 mmol/L (98-107); Estimated Creatinine Clearance 81 ml/min; Glucose 152 mg/dl (70-99); Potassium 4.9 mmol/L (3.5-5.1); Sodium 131 mmol/L (135-145); Total Bilirubin 3.1 mg/dl (0.2-1.3); Total Protein 4.9 g/dl (6.3-8.2); eGFR > 60.00
[2024-09-20] MEDS: DILAUDID 1 MG IV (12:09)
--- NOTE | 2024-09-20 13:25 | EDRN ---
Verbal report given to Juliana BORJAS in [facility].
--- NOTE | 2024-09-20 14:56 | EDRN ---
Pt had 5 L off w/ paracentesis. Awaiting albumin orders at this time.
--- NOTE | 2024-09-20 15:01 | PHANOTE ---
MED REC NOTE- PATIENT ADMITTED TO TAKING XANAX 1MG YESTERDAY 09/19/24 EVEN THOUGH IT WAS STOPPED WITH HIS PCP BACK IN AUGUST, PATIENT ADMITTED TO HIDE MEDICATION IN HIS DRAW AT HOME WITH HIS SPOUSE KNOWING. PATIENT WAS CHANGED TO HYDRALAZINE BUT
HAS NOT STARTED IT YET.
--- NOTE | 2024-09-20 15:29 | EDRN ---
Pharmacist called to fill albumen order at this time.
[2024-09-20] MEDS: FLEXBUMIN 100 IV (15:40)
--- NOTE | 2024-09-20 17:23 | HPS.HSE ---
Family Physician
-
Family Physician: Drake Goss
Chief Complaint
-
rectal bleeding
History of Present Illness
Mr. Cortez Mazariegos is a 59 yo man with hx cirrhosis with ascites, UGIB, COPD, recent admissions 08/17-08/24 for recurrent SBP, hepatic encephalopathy and anemia and 09/08-09/09 where required transfer to [facility] for treatment gastric varices presents
to the ER with report of rectal bleeding.
History obtained from patient and . He has been having bright red blood per rectum since yesterday. They went to [facility] ER given he was recently there but the wait time was going to be 18 hours so they left and decided to monitor at home.
Overnight at 3AM he had bleeding that filled toilet bowl, filled briefs and got onto floor.
Patient has had no bleeding in the ER and had a heme test without finding of active bleeding. He currently denies chest pain or shortness of breath. He is fatigued post Dilaudid that was given pre paracentesis. No fevers/chills. No cough. LE
swelling not worse.
Last BM was today.
Medical History
Past Medical History
Past Medical History: Reports Other ( cirrhosis with ascites and gastric varices, UGIB, COPD )
Past Surgical History: Reports None
Social History
Tobacco: Non-smoker
Alcohol: Former
Drug: None
Family History
Family History: Not pertinent
Allergies / Home Medications
Allergies reflects when Allergies were last updated in [facility].
Home Medications with original date entered in [facility]
Allergy/Medication List:
Allergies
Allergy/AdvReac Type Severity Reaction Status Date / Time
No Known Allergies Allergy Verified 09/20/24 10:40
Home Medications
thiamine HCl (vitamin B1) 100 mg tablet 100 mg PO DAILY Supplement 03/13/24
budesonide 160 mcg-glycopyr 9 mcg-formot 4.8 mcg/actuation HFA inhaler (Breztri Aerosphere) 2 inh inhalation R BID Lung/Breathing Issues 04/11/24
magnesium oxide 400 mg PO BID Supplement 06/28/24
rifaximin 550 mg tablet (Xifaxan) 550 mg PO BID hepatic encephalopathy 06/28/24
lactulose 20 gram/30 mL oral solution 20 g (30 mL) PO TID Liver issues #2,880 mL 07/01/24
pantoprazole 40 mg tablet,delayed release (Protonix) 40 mg PO BID Gastrointestinal Issue 08/02/24
ferrous sulfate 325 mg (65 mg iron) tablet (FeroSul) 325 mg PO DAILY 30 days #30 tabs 08/07/24
furosemide 20 mg tablet 20 mg PO DAILY Fluid retention/Swelling #30 tabs 08/24/24
spironolactone 25 mg tablet 25 mg PO DAILY Liver cirrohosis #30 tabs 08/24/24
tramadol 50 mg tablet 50 mg PO BID PRN Mod sev pain #10 tabs 08/24/24
lidocaine 4 % topical patch 1 patch topical DAILYPRN PRN right knee and right shoulder 09/08/24
miconazole nitrate 2 % topical powder (Miconazorb AF) 1 applic topical BID groin 09/08/24
ondansetron HCl 4 mg tablet 4 mg PO DAILYPRN PRN nasuea 09/08/24
Review of Systems
-
History Source: Patient
A 12 point ROS was completed and negative except as noted: Yes
Physical Exam
Vital Signs
Vital Signs
Temp Pulse Resp BP Pulse Ox
98.4 F 91 12 120/57 95
09/20/24 13:40 09/20/24 17:00 09/20/24 17:00 09/20/24 17:00 09/20/24 15:45
Physical Exam
General: No Apparent Distress and Other (sedated post Dilaudid, easily arousable )
HEENT: PERRLA
Respiratory: Clear; No Wheezes
Cardiac: S1/S2 and Regular Rhythm
GI: Non Tender and Other (mildly distended )
Musculoskeletal: Edema, Left Lower Extremity, Edema, Right Lower Extremity and Other (no asterixis noted )
Skin: Warm and Dry; No Rash
Neuro: AO x 3
Psych: Calm
Laboratory Results
-
09/20/24 11:32
09/20/24 11:32
Laboratory Results
PT 18.8 Sec (11.4-14.6) H 09/20/24 11:32
INR 1.52 09/20/24 11:32
APTT 40.3 Sec (23.4-35.0) H 09/20/24 11:32
Total Bilirubin 3.1 mg/dl (0.2-1.3) H 09/20/24 11:32
AST 40 U/L (17-59) 09/20/24 11:32
ALT 23 U/L (0-50) 09/20/24 11:32
Alkaline Phosphatase 138 U/L (38-126) H 09/20/24 11:32
Data Reviewed
-
Diagnostic Radiology: Report Reviewed by me
Lab Data: Labs Reviewed by me
Impression/Plan
-
Mr. Cortez Mazariegos is a 59 yo man with hx cirrhosis with ascites, UGIB, COPD, recent admissions 08/17-08/24 for recurrent SBP, hepatic encephalopathy and anemia and 09/08-09/09 where required transfer to [facility] for treatment gastric varices presents
to the ER with report of rectal bleeding.
Triage VS: T 97.9, P 102, RR 20, BP 134/68, SpO2 99%
LABS: WBC 8.1, Hg 8.1, PLT 59, Na 131, K+ 4.9, BUN 36, Cr 1.0, Glucose 152, T Bili 3.1, AST 40, ALT 23, Alk Phos 138
status post paracentesis with 5L fluid removal
IV albumin ordered post Paracentesis
End Stage Liver disease awaiting Organ Donation
Cirrhosis with Ascites, Gastric Varices
Bright Red Blood per Rectum
-s/p coiling gastric varices at [facility] two weeks ago
-Report of rectal bleeding that says filled up toilet bowl, however he has not had bleeding since being in the emergency room and no blood noticed on rectal exam per ER PA. Case discussed with Dr. Tellez, and OK to admit patient here with close
observation. If significant bleeding noticed, can place NGT to help differentiate if upper or lower; if UGIB presents itself then he will need transfer to [facility]
-repeat Hg now, blood consent signed
-2 Large bore IV's
-IV Protonix bolus and gtt
-start IV Octreotide and antibiotics
-admit to IMU
-trend Hg overnight
-CARPET L[employer]ER HELPER Lactulose and Xifaxan
-hold diuretics for now
COPD
-CARPET [employer]ER [employer]PER inhalers
DVT PPx SCD
FULL CODE
76 MINUTES spent on patient care
updated . If she is not reachable - she gave me daughter's cell phone: Ashanti - [phone]
[2024-09-20] MEDS: FLEXBUMIN 50 IV (17:32)
--- NOTE | 2024-09-20 17:35 | EDRN ---
Dr. Jacques in room w/pt at this time.
[2024-09-20 18:34] LABS: Body Fluid Mononuclear 79.2 %; Body Fluid Polymorphonuclear 20.8 %; Body Fluid Second Tech DW; Body Fluid WBC 96 /CUMM
--- NOTE | 2024-09-20 18:45 | EDRN ---
Attempted IV access x2 w/out success and benigno CBC. IV VAT called for IV access for octreotide that is ordered as incompatible w/ protonix.
[2024-09-20] MEDS: ROCEPHIN 1000 MG IV (18:46)
[2024-09-20 18:47] LABS: Hemoglobin 7.8 g/dL (13.0-18.0)
[2024-09-20] MEDS: PROTONIX IV 80 MG IV (18:47)
[2024-09-20] MEDS: NSS (PRESERVATIVE FREE) 20 ML IV (18:47)
[2024-09-20] MEDS: STERILE WATER FOR INJECTION 10 ML IV (18:48)
[2024-09-20] MEDS: PROTONIX 100 IV (18:48)
[2024-09-20] MEDS: SANDOSTATIN 500.6 MCG IV (19:17)
[2024-09-20] MEDS: XIFAXAN 550 MG PO (21:53)
[2024-09-20] MEDS: DUPHALAC/CHRONULAC 20 GRAMS PO (21:54)
[2024-09-20] MEDS: MELATONIN 5 MG PO (22:44)
--- NOTE | 2024-09-20 23:04 | PTCARENOTE ---
Rec'd pt from ED RN, oriented, able to pivot from stretcher to bed with minimal assistance. Pt presents with lg amount of ecchymosis-purple on RLQ of abdomen, which he states is from a former paracentesis, wounds documented per protocol. Pt denies
urge to have BM at this time, reports former BRBPR. Pt has not had any bleeding as of this time. Denies nausea. Reports he is very hungry, clear liquid diet is ordered, pt offered jello, which he accepts. VSS. Assessment as documented. Call federico
within reach.
[2024-09-21] VITALS (16 sets, daily range): BP systolic 105–136; BP diastolic 43–77; PULSE 93–102
[2024-09-21 00:35] LABS: Hematocrit 22.5 % (39.0-52.0); Hemoglobin 7.9 g/dL (13.0-18.0)
[2024-09-21] MEDS: PROTONIX 100 IV (04:01)
[2024-09-21 04:44] LABS: ALT (SGPT) 19 U/L (0-50); AST (SGOT) 35 U/L (17-59); Albumin 2.5 g/dl (3.5-5.0); Alkaline Phosphatase 90 U/L (38-126); Blood Urea Nitrogen 37 mg/dl (9-20); Calcium 8.1 mg/dl (8.4-10.2); Carbon Dioxide 21 mmol/L (22-30); Chloride 106 mmol/L (98-107); Estimated Creatinine Clearance 89 ml/min; Glucose 122 mg/dl (70-99); Potassium 5.5 mmol/L (3.5-5.1); Sodium 134 mmol/L (135-145); Total Bilirubin 3.2 mg/dl (0.2-1.3); Total Protein 4.7 g/dl (6.3-8.2); eGFR > 60.00
[2024-09-21 04:45] LABS: Hematocrit 21.6 % (39.0-52.0); Hemoglobin 7.4 g/dL (13.0-18.0); Mean Corp Hgb Conc. 34.3 g/dL (33.0-37.0); Mean Corpuscular Volume 96.4 fL (80.0-94.0); Mean Platelet Volume 10.8 fL (7.4-10.4); Platelet Count 51 10^3/uL (130-400); Red Blood Cell Count 2.24 10^6/uL (4.70-6.10); Red Cell Dist. Width 18.2 % (11.5-14.5); White Blood Cell Count 6.3 10^3/uL (4.8-10.8)
[2024-09-21] MEDS: SANDOSTATIN 500.6 MCG IV (06:09)
[2024-09-21] MEDS: DUPHALAC/CHRONULAC 20 GRAMS PO ×3 (06:26→22:52)
--- NOTE | 2024-09-21 06:28 | W.PN.UPDATE ---
Update Note
Progress Note Update
K 5.5, Patient asymptomatic, no arrhythmias, on Lactulose PO in AM, Advised RN to give that in AM.
--- NOTE | 2024-09-21 07:02 | CON.GI ---
Addendum entered and electronically signed by Lola Tellez DO 09/21/24 16:45:
Patient seen and examined independently of MARCIA. I agree with her note with my additions below
Christophe is a complicated 59-year-old male with history of decompensated cirrhosis hep C versus alcohol with intractable ascites undergoing weekly paracentesis, history of hepatic encephalopathy and significant GI bleeding with recent gastric variceal
bleed requiring transfer down to [facility] and underwent ultrasound-guided gastric artery coiling. His brings him back after having several bright red episodes from his rectum. Hemoglobin on admission was 8.1. Today 6.9 and received 1 unit of
blood. Today his stool is brown with small streaks of bright red. He has a known hemorrhoidal bleeding. He is hemodynamically stable.
His 2 PM lab is still pending. His platelets are 51, INR 1.5, BUN 37, creatinine 0.9 total bilirubin 3.2.
Also complicated by hematoma on his right abdomen from a paracentesis done at [facility] last week. He had an uncomplicated paracentesis here yesterday that was negative for SBP.
Currently he is undergoing transplant evaluation but is not yet listed.
#rectal bleeding - not severe with streaks of blood
Awaiting 2 PM hemoglobin
No significant output
Please chart the amount and the color of his bowel movements
He is appropriately on ceftriaxone. Not on octreotide at this time since this is highly unlikely and upper GI bleed
#anemia -if the anemia persists despite no significant GI bleeding, consider CT scan considering the large hematoma on his right abdomen that is marked with a marker and appears to be slightly spreading
Original Note:
Consultation
-
Date/Time Consultation Requested: 09/20/241999
Date/Time Consultation Performed: 09/21/24 0840
Requesting Provider: Peggy Jacques MD
Performing Provider: MARCIA Rossi, Lola Tellez DO
Reason for Consultation: rectal bleeding
Medical History
Chief Complaint / HPI
Chief Complaint: Confusion
History of Present Illness:
Mr Mazariegos is a 59 y.o male with past medical history significant for decompensated cirrhosis (HCV vs EtOH) with intractable ascites with weekly para, HE, GI bleeding well-known to our group which has been complicated by recurrent
hospitalizations with HE secondary to acute on chronic GI bleeding 2/2 PHG gastric varix, hx of prior post-polypectomy bleed, chronic HCV (s/p treatment with Epclusa s/p SVR), CVA, HTN, COPD, and chronic thrombocytopenia who presented with recurrent
rectal bleeding. He has admission last week with similar symptoms with HE with noted EGD type 1 isolated gastric varix in fundus with oozing and stigmata. He completed EGD and sent to [place]. Per patient and family had Ultrasound guided gastric
artery coiling procedure and discussed if not effective possible TIPS. He now returns with passing red blood per rectum. He has several large volume stool with red blood that has now improved. Hbg has been low with range 5-7 and noted 8.1 on
admission. He is following with Dr. Dan and in process of liver transplant per coordinator pt has completed his evaluation but waiting results of evaluation and may be able to process next 1-2 weeks. On admission noted with Na 131, K 5.5
after admission, platelet 51,000, bili 3.1, AST 40, ALT 23, alk phos 138, albumin 2.7, and INR 1.52. He has had TYSON on prior admission but creat stable at 0.9.
At this time stool this a.m. was brown with streaks of blood. He does also continue to complain of some right lower quadrant pain where he is noted with a hematoma from paracentesis 1 week ago. He did have a paracentesis yesterday on the left
lower abdomen in this area is without discomfort or bruising. He otherwise denies odynophagia dysphagia nausea vomiting diarrhea constipation or rectal irritation. Per nursing staff there was a question of power of traffic law attorney. Per the patient he
states his and daughter are both power of traffic law attorney for him at this time.
Past Medical History
Past Medical History: Other (As listed above- Decompensated HCV/EtOH cirrhosis s/p hep C treatment, c/b recurrent HE and GI bleeding 2/2 oozing PHG and recurrent ascites, gastic varix with recent bleeding 09/2024 )
Past Surgical History: Other (Mohs surgery)
Social History
Tobacco: Non-Smoker
Alcohol: Former
Drug: None
Personal:
Living: With Family
Employment: Not Employed
Family History
Family History: Other (no family hx liver disease )
Allergies / Home Medications
Allergy/AdvReac Type Severity Reaction Status Date / Time
No Known Allergies Allergy Verified 09/20/24 10:40
�Medication �Instructions �Recorded
thiamine HCl (vitamin B1) 100 mg 100 mg PO DAILY Supplement 03/13/24
tablet
budesonide 160 mcg-glycopyr 9 2 inh inhalation R BID 04/11/24
mcg-formot 4.8 mcg/actuation HFA Lung/Breathing Issues
inhaler (Breztri Aerosphere)
magnesium oxide 400 mg PO BID Supplement 06/28/24
rifaximin 550 mg tablet (Xifaxan) 550 mg PO BID hepatic 06/28/24
encephalopathy
lactulose 20 gram/30 mL oral 20 g (30 mL) PO TID Liver issues 07/01/24
solution #2,880 mL
pantoprazole 40 mg tablet,delayed 40 mg PO BID Gastrointestinal Issue 08/02/24
release (Protonix)
ferrous sulfate 325 mg (65 mg 325 mg PO DAILY 30 days #30 tabs 08/07/24
iron) tablet (FeroSul)
furosemide 20 mg tablet 20 mg PO DAILY Fluid 08/24/24
retention/Swelling #30 tabs
spironolactone 25 mg tablet 25 mg PO DAILY Liver cirrohosis 08/24/24
#30 tabs
tramadol 50 mg tablet 50 mg PO BID PRN Mod sev pain #10 08/24/24
tabs
lidocaine 4 % topical patch 1 patch topical DAILYPRN PRN right 09/08/24
knee and right shoulder
miconazole nitrate 2 % topical 1 applic topical BID groin 09/08/24
powder (Miconazorb AF)
ondansetron HCl 4 mg tablet 4 mg PO DAILYPRN PRN nasuea 09/08/24
Review of Systems
-
History Source: Patient and Family
Constitutional: Reports Weight Loss
EENT: Reports No Symptoms
Respiratory: Reports No Symptoms
Cardiac: Reports No Symptoms
Abdomen/GI: Reports Abdominal Pain (RLQ with bruising from prior paracentesis ), Bloody Stools and Other (distention with ascites, )
: Reports No Symptoms
Musculoskeletal: Reports No Symptoms
Skin: Reports No Symptoms
Neurological: Reports Weakness
Endocrine: Reports No Symptoms
Hematologic/Lymphatic: Reports Bleeding
Vital Signs
Temp Pulse Resp BP Pulse Ox
99.1 F 98 14 113/54 93
09/21/24 04:08 09/21/24 06:00 09/21/24 06:00 09/21/24 06:00 09/21/24 06:00
Physical Exam
Exam
General: Other (thin extremities, mild jaundice )
HEENT: Other (s/p nasal skin CA removal appears well healed )
Respiratory: Clear
Cardiac: Regular Rhythm
GI: Soft, Tender (RUQ with bruising from prior para) and Distended
Rectal: Other (dark heme + stool on exam with + hemorrhoids)
Musculoskeletal: No Clubbing and No Cyanosis
Skin: Warm
Neuro: Awake, Alert and AO x 3
Psych: Calm
Results
WBC 6.3 10^3/uL (4.8-10.8) 09/21/24 03:52
Hgb 7.4 g/dL (13.0-18.0) L 09/21/24 03:52
Hct 21.6 % (39.0-52.0) L 09/21/24 03:52
MCV 96.4 fL (80.0-94.0) H 09/21/24 03:52
Plt Count 51 10^3/uL (130-400) L 09/21/24 03:52
Absolute Neuts (auto) 6.5 10^3/uL (1.4-6.5) 09/20/24 11:32
PT 18.8 Sec (11.4-14.6) H 09/20/24 11:32
INR 1.52 09/20/24 11:32
APTT 40.3 Sec (23.4-35.0) H 09/20/24 11:32
Sodium 134 mmol/L (135-145) L 09/21/24 03:52
Potassium 5.5 mmol/L (3.5-5.1) H 09/21/24 03:52
Chloride 106 mmol/L (98-107) 09/21/24 03:52
Carbon Dioxide 21 mmol/L (22-30) L 09/21/24 03:52
BUN 37 mg/dl (9-20) H 09/21/24 03:52
Creatinine 0.9 mg/dL (0.7-1.3) 09/21/24 03:52
Calcium 8.1 mg/dl (8.4-10.2) L 09/21/24 03:52
Total Bilirubin 3.2 mg/dl (0.2-1.3) H 09/21/24 03:52
AST 35 U/L (17-59) 09/21/24 03:52
ALT 19 U/L (0-50) 09/21/24 03:52
Alkaline Phosphatase 90 U/L (38-126) 09/21/24 03:52
Diagnostic Image Results:
09/2024 gastric art coiling procedure at [place] -- report pending
09/09/24 EGD [place] - Type 1 isolated gastric varices (IGV1, varices
located in the fundus) with a small amount of oozing
and stigmata of recent bleeding found in the gastric
fundus. This is the source of patient's presentation.
No endoscopic therapy was performed given large
isolated gastric varices as these were not contiguous
with the GE-junction
- Moderate portal hypertensive gastropathy
- Otherwise, normal stomach on direct and retroflexion
views
- Normal esophagus without any esophageal varices
- Small amount of red blood in the second portion of
the duodenum. No duodenal varices were visualized
- The examination was otherwise normal.
- No specimens collected.
colonoscopy 08/22/24 Charlotte Bunn MD Non-bleeding internal hemorrhoids were found during retroflexion. The
hemorrhoids were large.
Multiple diverticula were found in the sigmoid colon and descending
colon.
The exam was otherwise without abnormality.
Diffuse colopathy
Old ovesco clip seen in ascending colon
An 8 mm polyp was found in the sigmoid colon. The polyp was sessile.
Polypectomy was not attempted given recent GI bleeding.
repeat colon 6-12 month with fair prep and polyps removed
Small bowel enteroscopy 08/22/24 Charlotte Bunn MD
- Normal esophagus.
- Severe portal hypertensive gastropathy with active
bleeding. Treated with argon plasma coagulation (APC).
- 2 cm hiatal hernia.
- Normal examined duodenum.
- The examined portion of the jejunum was normal.
- No specimens collected.
EGD: 06/29/24 maci Gaviria MD - Normal esophagus.
- Portal hypertensive gastropathy.
- Normal examined duodenum.
- No specimens collected.
05/07/[address] Smith : - Hemorrhoids found on perianal exam.
- The examined portion of the ileum was normal.
- Foreign body (OVSCO clip) at the hepatic flexure.
- Polypoid lesion at the hepatic flexure.
- Diverticulosis in the sigmoid colon and in the
descending colon.
- Internal hemorrhoids.
- No specimens collected.
Colonoscopy 04/13/2024-[facility] - One 15 to 18 mm polyp at the hepatic flexure,
removed using lift and cut and a hot snare and removed
with a cold snare. Resected and retrieved. Injected.
Treated with hot biopsy forceps. Ligated.
- One 4 mm polyp in the descending colon, removed with
a hot snare. Resected and retrieved. Clip was placed.
- Diverticulosis in the sigmoid colon, in the
descending colon and at the splenic flexure.
bx DC -TA and HF - HP polyp
EGD 04/13/2024� [facility] - No gross lesions in the entire esophagus. No varices.
- Z-line variable, 42 cm from the incisors.
- Portal hypertensive gastropathy.
- Normal examined duodenum.
- No specimens collected.
EGD:12/27/22 [facility] - Normal esophagus.
- Portal hypertensive gastropathy.
- Normal examined duodenum.
- No specimens collected.
04/11/2024 MRI Abd with and without:
IMPRESSION: Examination limited by motion artifact. CT may be useful as the next surveillance imaging examination, as perhaps there would be less motion artifact. Given this limitation, there is no MR evidence for hepatocellular carcinoma. Findings
of cirrhosis with ascites, splenomegaly, and prominent varices within the abdomen, and extending around the distal esophagus.
08/18/24 CT A/p
Cirrhotic appearing liver with large volume ascites, upper abdominal collateral vessels and splenomegaly.
Right inguinal hernia and umbilical hernia containing ascites fluid.
Unchanged 9 mm calculus in the proximal left ureter. No hydronephrosis
08/04/24 US doppler
Duplex ultrasound with color and spectral waveform analysis of the abdomen demonstrates high resistance waveform in the hepatic arteries such as may be seen with cirrhosis
The hepatic veins are patent with normal pulsatile flow
There is normal hepatopedal flow in the portal veins which are normal in caliber
no mass seen
IMPRESSION: Cirrhosis with splenomegaly and moderate ascites
frequent para-last completed -09/20- 5L, 09/09- 4L, 09/03 6.6 L
Assessment / Plan
-
Mr Mazariegos is a 59 y.o male with past medical history significant for decompensated cirrhosis (HCV vs EtOH) with intractable ascites with weekly para, HE, GI bleeding well-known to our group which has been complicated by recurrent
hospitalizations with HE secondary to acute on chronic GI bleeding 2/2 PHG gastric varix, hx of prior post-polypectomy bleed requiring Ovesco clips , chronic HCV (s/p treatment with Epclusa s/p SVR), CVA, HTN, COPD, and chronic thrombocytopenia who
presented with recurrent rectal bleeding. He has admission last week with similar symptoms with HE with noted EGD type 1 isolated gastric varix in fundus with oozing and stigmata. He completed EGD and sent to [place]. He now returns with passing
red blood per rectum. Hbg has been low with range 5-7 and noted 8.1 on admission. He is following with Dr. Dan and in process of liver transplant.
-recurrent rectal bleeding
-hx recent EGD with type 1 isolated gastric varix with transfer to [place] with gastric artery coiling 09/2024
-recurrent Anemia, likely 2/2 oozing portal HTN gastropathy
-RLQ bruising after paracentesis last week
-Decompensated alcoholic/Hep C liver cirrhosis, MELD 3.0
-Chronic thrombocytopenia
-hx HE
-Ascites, requiring near weekly paracentesis, on Lasix 20 mg daily and Aldactone 25 g daily with TYSON with increased dosing in past
-Chronic hyponatremia
-Hyperbilirubinemia, chronic
-AFP 30 in March 2024, was in the 10-12 range
-Hx Hep C s/p tx with Epclusa with SVR
-portal hypertension
Other pertinent medical history:
-Chronic pain
-GERD
-Hypertension
-Anxiety
-hx colon polyps with prior bleeding with polyp removal and placement of Ovesco clip-- last colon with retained polyps note removed in setting of GI bleed
-hx hemorrhoids
-skin Ca s/p recent Mohs surgery
Recommendations:
Etiology of rectal bleeding local hemorrhoidal vs diverticular vs less likely aggressive gastric varix bleed with stable BUN vs other
bleeding now improved- brown stool with streak blood this am and dark heme + stool on my exam with + hemorrhoids
hbg 6.9 for 1 unit PRBC today
trend hbg
transition PPI gtt to IV BID
stop octreotide
cont Xifaxan and lactulose with hx HE
on Lasix 20mg daily will resume spironolactone 25 mg daily
cont abx is setting of GI bleed and cirrhosis
ok for 2 gram Na diet
trend stool record
s/p para 09/20 5 liter albumin given in er neg SBP
I requested coil procedure records to be sent
MELD 3.0 20
I did review with patient as POA unclear -- he states and daughter are both POA
reviewed with Dr. Jacques
updated and survey coordinator Roz López [phone]-- pt is awaiting transplant determination. He is scheduled follow up with Dr. Dan at end of October
-
-
Thank you for consultation and allowing me to participate in the patient's care. Please call the immigration specialist GI physician during the after hours with any questions or concerns.
[2024-09-21] MEDS: XIFAXAN 550 MG PO ×2 (08:35→20:19)
[2024-09-21] MEDS: VITAMIN B1 100 MG PO (08:35)
--- NOTE | 2024-09-21 08:40 | W.PN.HOSP.TC ---
Addendum entered and electronically signed by Peggy Jacques MD 09/21/24 09:19:
transfuse 1 unit PRBC
Original Note:
Today's Communication/Plan
-
F/U further GI recs
continue protonix, octreotide and ceftriaxone for now
repeat Hg and K this afternoon
resume lasix
PT/OT
low threshold to transfuse if < 7.5 on repeat Hg this morning so patient has some reserve
Assessment / Plan
Assessment / Plan
Mr. Cortez Mazariegos is a 59 yo man with hx cirrhosis with ascites, UGIB, COPD, recent admissions 08/17-08/24 for recurrent SBP, hepatic encephalopathy and anemia and 09/08-09/09 where required transfer to [place] for treatment gastric varices presents
to the ER with report of rectal bleeding.
status post paracentesis with 5L fluid removal
IV albumin ordered post Paracentesis
End Stage Liver disease awaiting Organ Donation
Cirrhosis with Ascites, Gastric Varices
Bright Red Blood per Rectum
-s/p coiling gastric varices at [place] two weeks ago
-Report of rectal bleeding that says filled up toilet bowl, however he has not had bleeding since being in the emergency room and no blood noticed on rectal exam per ER PA. NO bleeding overnight, this AM streaks of blood - likely hemorrhoidal
-continue treatment for possible UGIB until seen by GI:
-IV Protonix bolus and gtt
-start IV Octreotide and antibiotics
-admitted to IMU, can likely downgrade today
-trend Hg
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
-resume lasix today
low threshold to transfuse if < 7.5 on repeat Hg this morning so patient has some reserve
Hyper K
-hold spironolactone today
-resume lasix as above
COPD
-COMMERCIAL RELATIONSHIP MANAGER inhalers
DVT PPx SCD
FULL CODE
76 MINUTES spent on patient care
first contact; if not reaachable then daughter's cell phone: Ashanti - [phone]
Anticipated Discharge: 24 - 48 hours
Subjective/Interval History
-
Date of Service: September 21, 2024
streaks of blood in BM this morning
has pain in abdomen at site of paracentesis
Objective Data
-
Labs:
Laboratory Results
09/21/24 09/21/24 09/21/24
00:18 03:52 08:22
WBC 6.3
Hgb 7.9 L 7.4 L Pending
Hct 22.5 L 21.6 L Pending
Plt Count 51 L
Sodium 134 L
Potassium 5.5 H
Chloride 106
Carbon Dioxide 21 L
BUN 37 H
Creatinine 0.9
Glucose 122 H
Calcium 8.1 L
Total Bilirubin 3.2 H
AST 35
ALT 19
Alkaline Phosphatase 90
09/21/24
14:00
WBC
Hgb Pending
Hct
Plt Count
Sodium
Potassium Pending
Chloride
Carbon Dioxide
BUN
Creatinine
Glucose
Calcium
Total Bilirubin
AST
ALT
Alkaline Phosphatase
Vital Signs:
Vital Signs
Temp Pulse Resp BP Pulse Ox
98.1 F 98 14 113/54 93
09/21/24 07:30 09/21/24 06:00 09/21/24 06:00 09/21/24 06:00 09/21/24 06:00
I&O
09/20/24 09/21/24 09/22/24
06:59 06:59 06:59
Intake Total 600 / 600
Output Total 850 / 850
Balance -250 / -250
Review of Systems
-
History Source: Patient
All other systems: Reviewed and negative
Physical Exam
-
General: Appears Chronically Ill
HEENT: Normocephalic
Respiratory: Clear to Auscultation and Non Labored Respirations
Cardiac: Regular Rhythm and S1/S2
GI: Nontender, Normal Bowel Sounds and Distended
Musculoskeletal: No Clubbing, No Cyanosis and No Edema
Skin: Warm, Dry and Jaundice
Neuro: Awake and AO x 3
Psych: Calm
Data Reviewed
-
Diagnostic Radiology: Report Reviewed by me
Labs: Labs Reviewed by me
--- NOTE | 2024-09-21 08:57 | PTCARENOTE ---
O walking elo Pt AAOx3 . Pt on ra lungs are clear big abd , using a urinal. generalized weakness. Pin at paracentesis site. DR Rivera saw pt ordered pain med
[2024-09-21] MEDS: DILAUDID 0.5 MG IV ×3 (09:05→18:20)
[2024-09-21 09:11] LABS: Hematocrit 20.7 % (39.0-52.0); Hemoglobin 6.9 g/dL (13.0-18.0)
[2024-09-21] MEDS: LASIX 20 MG PO (09:18)
--- NOTE | 2024-09-21 09:45 | VNURNOTE ---
Chart reviewed.� Patient is current with [facility] nursing.� Will continue to follow hospital course and DC plans.
[2024-09-21] MEDS: ATARAX 10 MG PO ×2 (10:03→20:23)
--- NOTE | 2024-09-21 10:20 | CM ---
Patient seen bedside.
Recent d/c from .
Patient admitted thru ED with reports of BRBPR.
Hgb 6.9, transfusion ordered today.
Patient lives with spouse, daughter, son in law, granddaughter and dogs.
Patient has hospital bed, canes, walkers, home oxygen (unsure of company)
Patient only uses oxygen PRN.
Patient current with [facility] and has a coordinator thru his [place].
Patient does not drive.
Per patient he is waiting to hear if he is accepted on the transplant list.
PCP: Dr Goss
Pharmacy: [facility]
Plan: home with [facility], or daughter will transport.
[2024-09-21] MEDS: ALDACTONE 25 MG PO (11:00)
--- NOTE | 2024-09-21 11:28 | PTCARENOTE ---
Blood now infusing wiyhpout incident
--- NOTE | 2024-09-21 12:53 | PTCARENOTE ---
Colin Garcia called to fax info again
--- NOTE | 2024-09-21 13:52 | PTCARENOTE ---
Pt had large Loose dark brow BM no blood
[2024-09-21 17:09] LABS: Hemoglobin 7.8 g/dL (13.0-18.0)
[2024-09-21 17:18] LABS: Potassium 4.5 mmol/L (3.5-5.1)
[2024-09-21] MEDS: STERILE WATER FOR INJECTION 10 ML IV (17:29)
[2024-09-21] MEDS: ROCEPHIN 1000 MG IV (17:29)
--- NOTE | 2024-09-21 20:00 | PTCARENOTE ---
resumed care of pt sitting up in bed AAOx3. Pt requesting to get washed up. CHG bath provided. Linens changed. Charley care provided. New pull up now in place. HR in the 90's in NSR on the monitor. POX 95% on Ra. Lungs dec @ bases. + bowel, round dist
firm abd. Right lower abd ecchymosis noted and traced. pt reports pain 8/10, PRN pain medication administered as ordered. [place] [facility] [place] at this [place]. Pt assisted back to bed and positioned self per comfort. Knee high seq in place. +2 Pitting
B/L LE edema noted. Palpable peripheral pulses present. Left forearm int capped. Right foream int capped. Call caballero in reach. Will continue to monitor.
[2024-09-21] MEDS: DESYREL 25 MG PO (20:20)
[2024-09-21] MEDS: NSS (PRESERVATIVE FREE) 10 ML IV (20:21)
[2024-09-21] MEDS: PROTONIX IV 40 MG IV (20:21)
[2024-09-22] VITALS (15 sets, daily range): BP systolic 109–145; BP diastolic 59–84; PULSE 90–100; O2SAT 96–97; BMI 25.9
[2024-09-22] MEDS: DILAUDID 0.5 MG IV ×4 (01:04→14:54)
--- NOTE | 2024-09-22 03:42 | PTCARENOTE ---
Pt with one large loose brown BM overnight. No blood noted. Vitals stable. Pt reports abd pain, PRN pain medication administered as ordered. No other issues to report. Will continue to monitor.
[2024-09-22 04:39] LABS: Hematocrit 24.6 % (39.0-52.0); Hemoglobin 8.4 g/dL (13.0-18.0); Mean Corp Hgb Conc. 34.1 g/dL (33.0-37.0); Mean Corpuscular Hgb 32.7 pg (27.0-31.0); Mean Corpuscular Volume 95.7 fL (80.0-94.0); Mean Platelet Volume 9.2 fL (7.4-10.4); Platelet Count 42 10^3/uL (130-400); Red Blood Cell Count 2.57 10^6/uL (4.70-6.10); White Blood Cell Count 5.3 10^3/uL (4.8-10.8)
[2024-09-22 04:48] LABS: PT 18.3 Sec (11.4-14.6)
[2024-09-22 04:54] LABS: ALT (SGPT) 18 U/L (0-50); AST (SGOT) 33 U/L (17-59); Albumin 2.6 g/dl (3.5-5.0); Alkaline Phosphatase 69 U/L (38-126); Blood Urea Nitrogen 34 mg/dl (9-20); Calcium 8.1 mg/dl (8.4-10.2); Carbon Dioxide 22 mmol/L (22-30); Chloride 105 mmol/L (98-107); Estimated Creatinine Clearance 80 ml/min; Glucose 138 mg/dl (70-99); Potassium 4.5 mmol/L (3.5-5.1); Sodium 135 mmol/L (135-145); Total Bilirubin 3.5 mg/dl (0.2-1.3); Total Protein 4.6 g/dl (6.3-8.2); eGFR > 60.00
--- NOTE | 2024-09-22 09:04 | W.PN.HOSP.TC ---
Today's Communication/Plan
-
possible DC today after PT Eval and final GI recommendations
Assessment / Plan
Assessment / Plan
Mr. Cortez Mazariegos is a 59 yo man with hx cirrhosis with ascites, UGIB, COPD, recent admissions 08/17-08/24 for recurrent SBP, hepatic encephalopathy and anemia and 09/08-09/09 where required transfer to [place] for treatment gastric varices presents
to the ER with report of rectal bleeding.
status post paracentesis with 5L fluid removal
IV albumin ordered post Paracentesis
End Stage Liver disease awaiting Organ Donation
Cirrhosis with Ascites, Gastric Varices
Bright Red Blood per Rectum
-s/p coiling gastric varices at [place] two weeks ago
-Report of rectal bleeding that says filled up toilet bowl, however only minimal bleeding witnessed here - likely hemorrhoidal
-required 1 unit PRBC on 09/21
-continue treatment for possible UGIB until seen by GI:
IV Octreotide stopped
continue Protonix
-HALFTONE OPERATOR Lactulose and Xifaxan
-resume lasix and Spironolactone
Hyper K
-resolved
COPD
-HALFTONE OPERATOR inhalers
DVT PPx SCD
FULL CODE
76 MINUTES spent on patient care
first contact; if not reachable then daughter's cell phone: Ashanti - [phone]
Anticipated Discharge: Within 24 hours
Subjective/Interval History
-
Date of Service: September 22, 2024
feeling better this morning
pain in side from prior paracentesis
Objective Data
-
Labs:
Laboratory Results
09/22/24
04:26
WBC 5.3
Hgb 8.4 L
Hct 24.6 L
Plt Count 42 L
PT 18.3 H
INR 1.50
Sodium 135
Potassium 4.5
Chloride 105
Carbon Dioxide 22
BUN 34 H
Creatinine 1.0
Glucose 138 H
Calcium 8.1 L
Total Bilirubin 3.5 H
AST 33
ALT 18
Alkaline Phosphatase 69
Vital Signs:
Vital Signs
Temp Pulse Resp BP Pulse Ox
98.2 F 100 13 142/84 86
09/22/24 07:00 09/22/24 08:00 09/22/24 08:00 09/22/24 08:00 09/22/24 08:00
I&O
09/21/24 09/22/24 09/23/24
06:59 06:59 06:59
Intake Total 600 / 600 770 / 770
Output Total 850 / 850 450 / 450
Balance -250 / -250 320 / 320
Review of Systems
-
History Source: Patient
All other systems: Reviewed and negative
Physical Exam
-
General: Appears Chronically Ill
HEENT: Normocephalic
Respiratory: Clear to Auscultation and Non Labored Respirations
Cardiac: Regular Rhythm and S1/S2
GI: Nontender, Normal Bowel Sounds and Distended
Musculoskeletal: No Clubbing, No Cyanosis, Edema, Right Lower Extrem and Edema, Left Lower Extrem
Skin: Warm, Dry, Jaundice and Other (bruising right abdomen from prior paracentesis )
Neuro: Awake and AO x 3
Psych: Calm
[2024-09-22] MEDS: DUPHALAC/CHRONULAC 20 GRAMS PO ×2 (10:01→17:12)
[2024-09-22] MEDS: LASIX 20 MG PO (10:02)
[2024-09-22] MEDS: VITAMIN B1 100 MG PO (10:02)
[2024-09-22] MEDS: ALDACTONE 25 MG PO (10:02)
[2024-09-22] MEDS: ATARAX 10 MG PO ×2 (10:02→19:05)
[2024-09-22] MEDS: PROTONIX IV 40 MG IV ×2 (10:03→19:05)
[2024-09-22] MEDS: NSS (PRESERVATIVE FREE) 10 ML IV ×2 (10:04→19:05)
[2024-09-22] MEDS: XIFAXAN 550 MG PO ×2 (10:55→19:04)
[2024-09-22] MEDS: PREPARATION H OINTMENT 1 APPLIC RECTAL (13:09)
[2024-09-22] MEDS: ULTRAM 50 MG PO (13:15)
--- NOTE | 2024-09-22 13:33 | W.PN.GI.CBS2 ---
Today's Communication / Plan
-
-- Okay for discharge
-- Labs and PCP appointment hopefully next week
-- Follow-up with his senior teller. Awaiting transplant evaluation
Assessment / Plan
-
Mr Mazariegos is a 59 y.o male with past medical history significant for decompensated cirrhosis (HCV vs EtOH) with intractable ascites with weekly para, HE, GI bleeding well-known to our group which has been complicated by recurrent
hospitalizations with HE secondary to acute on chronic GI bleeding 2/2 PHG gastric varix, hx of prior post-polypectomy bleed requiring Ovesco clips , chronic HCV (s/p treatment with Epclusa s/p SVR), CVA, HTN, COPD, and chronic thrombocytopenia who
presented with recurrent rectal bleeding. He has admission last week with similar symptoms with HE with noted EGD type 1 isolated gastric varix in fundus with oozing and stigmata. He completed EGD and sent to [place]. He now returns with passing
red blood per rectum. Hbg has been low with range 5-7 and noted 8.1 on admission. He is following with Dr. Dan and in process of liver transplant.
-recurrent rectal bleeding
-hx recent EGD with type 1 isolated gastric varix with transfer to [place] with gastric artery coiling 09/2024
-recurrent Anemia, likely 2/2 oozing portal HTN gastropathy
-RLQ bruising after paracentesis last week
-Decompensated alcoholic/Hep C liver cirrhosis, MELD 3.0
-Chronic thrombocytopenia
-hx HE
-Ascites, requiring near weekly paracentesis, on Lasix 20 mg daily and Aldactone 25 g daily with TYSON with increased dosing in past
-Chronic hyponatremia
-Hyperbilirubinemia, chronic
-AFP 30 in March 2024, was in the 10-12 range
-Hx Hep C s/p tx with Epclusa with SVR
-portal hypertension
Other pertinent medical history:
-Chronic pain
-GERD
-Hypertension
-Anxiety
-hx colon polyps with prior bleeding with polyp removal and placement of Ovesco clip-- last colon with retained polyps note removed in setting of GI bleed
-hx hemorrhoids
-skin Ca s/p recent Mohs surgery
Recommendations:
Etiology of rectal bleeding local hemorrhoidal vs diverticular vs less likely aggressive gastric varix bleed with stable BUN vs other
bleeding now improved- brown stool with + hemorrhoids
hbg 6.9 for 1 unit PRBC --> now 8.4
Decrease Protonix to once daily
cont Xifaxan and lactulose with hx HE
on low-dose Lasix 20mg daily spironolactone 25 mg daily --not sure why he is on such low doses and getting weekly paracentesis. He is followed by hepatology so we will let them dose adjust
cont abx is setting of GI bleed and cirrhosis -stop at discharge
2 gram Na diet
s/p para 09/20 5 liter albumin given in er neg SBP
MELD 3.0 18 09/22/24
I did review with patient as POA unclear -- he states and daughter are both POA
reviewed with Dr. Jacques
# Ecchymosis over the right flank -slightly spreading but it subcutaneous and likely due to his thrombocytopenia. His hemoglobin is stable he is hemodynamically stable. Is just going to have to reabsorb
--Hopefully, he can see his PCP next week and someone can take a look at it and check his labs
sales and catering coordinator Roz López [phone]-- pt is awaiting transplant determination. He is scheduled follow up with Dr. Dan at end of October
Subjective
Subjective
Date of Service: September 22, 2024
Patient having brown stools
Objective
Data Reviewed
Laboratory Data:
Laboratory Results
09/22/24 04:26
09/22/24 04:26
Laboratory Results
PT 18.3 Sec (11.4-14.6) H 09/22/24 04:26
INR 1.50 09/22/24 04:26
APTT 40.3 Sec (23.4-35.0) H 09/20/24 11:32
Total Bilirubin 3.5 mg/dl (0.2-1.3) H 09/22/24 04:26
AST 33 U/L (17-59) 09/22/24 04:26
ALT 18 U/L (0-50) 09/22/24 04:26
Alkaline Phosphatase 69 U/L (38-126) 09/22/24 04:26
Vital Signs and I&O:
Vital Signs
Temp Pulse Resp BP Pulse Ox
98.3 F 92 14 125/70 94
09/22/24 12:11 09/22/24 10:01 09/22/24 10:01 09/22/24 10:01 09/22/24 11:50
I&O
09/21/24 09/22/24 09/23/24
06:59 06:59 06:59
Intake Total 600 / 600 770 / 770 325 / 325
Output Total 850 / 850 450 / 450
Balance -250 / -250 320 / 320 325 / 325
Physical Exam
Physical Exam
HEENT: Anicteric (Icteric)
GI: Soft and Other (+ Ecchymosis over the right flank due to paracentesis which is slightly spreading)
Extremities: No Edema
Neuro: Non Focal
--- NOTE | 2024-09-22 14:00 | W.DS.TRANS ---
DC Summary - Service Center Technician
-
Discharge Instructions:
Discharge Diagnosis/Procedures Hemorrhoidal bleed
Diet 2 Gram Sodium,Restrict fluids to 48 oz
Activity As tolerated
Driving Restrictions As prior to admission
Bathing Restrictions None
Blood Work CBC in 4-5 days
Other Services VN,PT,OT
Instructions:
Stand-Alone Forms:
Changes to Home Medications: Yes
Discharge Medications:
DC Medications w/original date entered in [facility]
thiamine HCl (vitamin B1) 100 mg tablet 100 mg PO DAILY Supplement 03/13/24
budesonide 160 mcg-glycopyr 9 mcg-formot 4.8 mcg/actuation HFA inhaler (Breztri Aerosphere) 2 inh inhalation R BID Lung/Breathing Issues 04/11/24
magnesium oxide 400 mg PO BID Supplement 06/28/24
rifaximin 550 mg tablet (Xifaxan) 550 mg PO BID hepatic encephalopathy 06/28/24
lactulose 20 gram/30 mL oral solution 20 g (30 mL) PO TID Liver issues #2,880 mL 07/01/24
pantoprazole 40 mg tablet,delayed release (Protonix) 40 mg PO BID Gastrointestinal Issue 08/02/24
ferrous sulfate 325 mg (65 mg iron) tablet (FeroSul) 325 mg PO DAILY 30 days #30 tabs 08/07/24
furosemide 20 mg tablet 20 mg PO DAILY Fluid retention/Swelling #30 tabs 08/24/24
spironolactone 25 mg tablet 25 mg PO DAILY Liver cirrohosis #30 tabs 08/24/24
tramadol 50 mg tablet 50 mg PO BID PRN Mod sev pain #10 tabs 08/24/24
lidocaine 4 % topical patch 1 patch topical DAILYPRN PRN right knee and right shoulder 09/08/24
miconazole nitrate 2 % topical powder (Miconazorb AF) 1 applic topical BID groin 09/08/24
ondansetron HCl 4 mg tablet 4 mg PO DAILYPRN PRN nasuea 09/08/24
phenylephrine 0.25 %-mineral oil 14 %-petrolatm 74.9 % rectal ointment (Hemorrhoidal(phenyleph-min oil-petrolat)) 1 applic [place] BID #56 grams 09/22/24
Home Medication Changes
addition of preparation H
Pending Results: No
--- NOTE | 2024-09-22 16:35 | CM ---
CM following re: d/c planning.
CM spoke with , due to concerns about pt d/c.
Per attending, pt will remain in house for observation tonight.
However, CM spoke with Cherise, to discuss [facility] plan i.e. if she is concerned about him going home tonight or in general, and is CM can be of help with resources.
She states she is working tonight and he cannot be home alone, as he needs constant supervision and he is a falls risk.
We briefly discussed SNF, but she reports pt will refuse, as he has tried it in past.
CM also explained therapy notes rec VN, so likely insurance may deny.
She is agreeable to home with [facility].
She is concerned, as pt continues with the need of paracentesis, resulting in readmissions.
CM offered emotional support and private duty home care, but she declines.
She is aware pt is tentatively for d/c tomorrow with [facility].
Goal: home with [facility]
[2024-09-22] MEDS: ROCEPHIN 1000 MG IV (17:16)
[2024-09-22] MEDS: FLUSH (NSS) 2 FLUSH IV (17:17)
[2024-09-22] MEDS: STERILE WATER FOR INJECTION 10 ML IV (17:17)
--- NOTE | 2024-09-22 17:39 | PTCARENOTE ---
Patient AA0 x3, a little forgetful. Patient is assist x1 with rolling walker. Patient had 2 large loose BM's today. Using urinal independently, priyank colored urine. Very large right sided hematoma from old paracenteses. VS stable. SR/ST on
monitor.
[2024-09-22] MEDS: DESYREL 25 MG PO (19:04)
[2024-09-22] MEDS: PREPARATION H OINTMENT RECTAL (20:30)
[2024-09-22] MEDS: DUPHALAC/CHRONULAC PO (20:30)
--- NOTE | 2024-09-22 22:40 | PTCARENOTE ---
Pt recieved at beginning of shift resting in bed. Upset about 'discharge being cancelled by my .' AAOx3. Requested Atarax, given without good relief. Pt up walking around in hallway with SPC without monitor on. Requested pt return to room and
monitor reapplied. This occurred x 2. Pt currently resting in bed. Right lower abd with large hematoma slightly progressed beyond marking. No change from previous assessment. VSS. Afebrile. SR on CM. Call caballero within reach. Will continue to monitor.
[2024-09-23] VITALS: BP 113/53
[2024-09-23 02:00] VITALS: BP 125/55
[2024-09-23] MEDS: ULTRAM 50 MG PO ×2 (03:40→08:06)
[2024-09-23 04:00] VITALS: BP 117/62
[2024-09-23 06:00] VITALS: BP 115/62
--- NOTE | 2024-09-23 07:44 | PTCARENOTE ---
Assumed care of patient this AM. No events reported overnight. Patient anxious to be discharged to home this morning.
[2024-09-23 08:00] VITALS: BP 113/59
[2024-09-23] MEDS: XIFAXAN 550 MG PO (08:05)
[2024-09-23] MEDS: ALDACTONE 25 MG PO (08:06)
[2024-09-23] MEDS: DUPHALAC/CHRONULAC PO (08:06)
[2024-09-23] MEDS: ATARAX 10 MG PO (08:07)
[2024-09-23] MEDS: PREPARATION H OINTMENT 1 APPLIC RECTAL (08:08)
[2024-09-23] MEDS: LASIX 20 MG PO (08:08)
[2024-09-23] MEDS: NSS (PRESERVATIVE FREE) IV (08:09)
[2024-09-23] MEDS: PROTONIX IV IV (08:10)
[2024-09-23] MEDS: VITAMIN B1 PO (08:10)
--- NOTE | 2024-09-23 08:19 | W.PN.HOSP.TC ---
Today's Communication/Plan
-
OK for DC today
Assessment / Plan
Assessment / Plan
Mr. Cortez Mazariegos is a 59 yo man with hx cirrhosis with ascites, UGIB, COPD, recent admissions 08/17-08/24 for recurrent SBP, hepatic encephalopathy and anemia and 09/08-09/09 where required transfer to [place] for treatment gastric varices presents
to the ER with report of rectal bleeding.
status post paracentesis with 5L fluid removal
IV albumin ordered post Paracentesis
End Stage Liver disease awaiting Organ Donation
Cirrhosis with Ascites, Gastric Varices
Bright Red Blood per Rectum
-s/p coiling gastric varices at [place] two weeks ago
-Report of rectal bleeding that says filled up toilet bowl, however only minimal bleeding witnessed here - likely hemorrhoidal
-required 1 unit PRBC on 09/21
-continue treatment for possible UGIB until seen by GI:
IV Octreotide stopped
continue Protonix
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
-resume lasix and Spironolactone
-OK for DC
Bruising on right abdomen
draining towards back
-Hg stable
-OK for DC with close outpatient follow up
Hyper K
-resolved
COPD
-BRASSIERE CUP MOLD CUTTER inhalers
DVT PPx SCD
FULL CODE
76 MINUTES spent on patient care
first contact; if not reachable then daughter's cell phone: Ashanti - [phone]
Anticipated Discharge: Today
Subjective/Interval History
-
Date of Service: September 23, 2024
feels ready to go home
Objective Data
-
Vital Signs:
Vital Signs
Temp Pulse Resp BP Pulse Ox
98.4 F 90 13 113/59 95
09/23/24 07:00 09/23/24 08:00 09/23/24 08:00 09/23/24 08:00 09/23/24 08:15
I&O
09/22/24 09/23/24 09/24/24
06:59 06:59 06:59
Intake Total 770 / 770 0 / 1920
Output Total 450 / 450 990 / 990
Balance 320 / 320 930 / 930
Review of Systems
-
History Source: Patient
All other systems: Reviewed and negative
Physical Exam
-
General: Appears Chronically Ill
HEENT: Normocephalic
Respiratory: Clear to Auscultation and Non Labored Respirations
Cardiac: Regular Rhythm and S1/S2
GI: Nontender, Normal Bowel Sounds and Distended
Musculoskeletal: No Clubbing, No Cyanosis, Edema, Right Lower Extrem and Edema, Left Lower Extrem
Skin: Warm, Dry, Jaundice and Other (bruising right abdomen from prior paracentesis )
Neuro: Awake and AO x 3
Psych: Calm
Data Reviewed
-
Diagnostic Radiology: Report Reviewed by me
Labs: Labs Reviewed by me
--- NOTE | 2024-09-23 09:07 | CM ---
CM reviewed chart, home w/home care, transporting at dc. Pt is clear to dc from a CM/SW standpoint.
CM will continue to follow to ensure a safe and timely dc.
--- NOTE | 2024-09-23 15:15 | W.DCSUMMARY ---
Discharge Summary
Discharge Data
Date of Admission: 09/20/24
Date of Discharge: 09/23/24
-
Pending Results: No
Hospital Course
Discharging Physician : Dr. Peggy Jacques
Disposition : Home with Home Health
Primary care physician : Dr. Drake Goss
Principal Discharge diagnosis : Hemorrhoidal Bleeding
Hospital Course :
Mr. Cortez Mazariegos is a 59 yo man with hx cirrhosis with ascites, UGIB, COPD, recent admissions 08/17-08/24 for recurrent SBP, hepatic encephalopathy and anemia and 09/08-09/09 for UGIB where he required transfer to [place] for treatment gastric
varices presents to the ER with report of rectal bleeding. Triage vitals stable. Hg 8.1. He was admitted to medicine with GI consulting. Initially treated for possible UGIB (given history) and was started on IV protonix gtt, IV octreotide and
PPx antibiotics. Overnight patient had no significant bleeding, only streaks BRB suggestive of hemorrhoidal bleeding. He received one unit of PRBC for Hg 6.9. He was observed another 48 hours with stable Hg and no significant bleeding. He is
prescribed preparation H at discharge and will continue to follow up closely with outpatient providers. Hg prior to discharge was 8.5.
Of note patient had abdominal bruising from last paracentesis. Continued spread from delfino borders down to flank. With stable Hg, OK for DC with plans to follow up for monitoring with PCP as outpatient.
Time spent on discharge was 32 minutes.
Important imaging findings :
Procedure findings :
Discharge Plan
-
Patient Disposition: Home with Home Care
Discharge Diagnosis/Procedures: Hemorrhoidal bleed
Diet: 2 Gram Sodium and Restrict fluids to 48 oz
Activity: As tolerated
Driving Restrictions: As prior to admission
Bathing Restrictions: None
Blood Work: CBC in 4-5 days
Other Services: VN, PT and OT
Referrals:
Drake Goss, DO [Family Provider] - in less than 1 week
Prescriptions:
New
Hemorrhoidal(PE-min oil-darling) 0.25-14-74.9 % Ointment
1 applic [place] BID Qty: 56 0RF
Continued
thiamine HCl (vitamin B1) 100 mg tablet
100 mg PO DAILY
Breztri Aerosphere 160-9-4.8 mcg/actuation Hfa Aerosol Inhaler
2 inh INHALATION R BID
Xifaxan 550 mg Tablet
550 mg PO BID
magnesium oxide 400 mg magnesium Tablet
400 mg PO BID
lactulose 20 gram/30 mL Solution
20 g PO TID Qty: 2880 0RF
pantoprazole [Protonix] 40 mg tablet,delayed release (DR/EC)
40 mg PO BID
ferrous sulfate [FeroSul] 325 mg (65 mg iron) Tablet
325 mg PO DAILY 30 Days Qty: 30 0RF
spironolactone 25 mg Tablet
25 mg PO DAILY Qty: 30 0RF
furosemide 20 mg Tablet
20 mg PO DAILY Qty: 30 0RF
ondansetron HCl 4 mg Tablet
4 mg PO DAILYPRN PRN (Reason: nasuea)
lidocaine 4 % adhesive patch,medicated
1 patch topical DAILYPRN PRN (Reason: right knee and right shoulder)
miconazole nitrate [Miconazorb AF] 2 % powder
1 applic topical BID
tramadol 50 mg tablet
50 mg PO BID PRN (Reason: Mod sev pain) Qty: 10 0RF
Discharge Orders:
Discharge Patient (As Directed); Ordered 09/23/24
Ordered By: Peggy Jacques
Discharge Date and Time
Discharge Date/Time: 09/23/24 10:32
Print Language: TURKMEN
== END 2024-09-23 10:32 | disposition home health service (06) | DRG 394 ==
LOC: IMU 19:06
PROVIDERS: Emergency Medicine; Nurse Practitioner Adult Health; Radiology Vascular & Interventional Radiology; ADMITTING PHYSICIAN Student in an Organized Health Care Education/Training Program; CONSULT PHYSICIAN Internal Medicine; EMERGENCY PHYSICIAN Emergency Medicine; FAMILY PHYSICIAN Internal Medicine
PROC: 0W9G30Z Drainage of Peritoneal Cavity with Drainage Device, Percutaneous Approach (ICD-10-PCS; 2024-09-20)
PROC: 30233N1 Transfusion of Nonautologous Red Blood Cells into Peripheral Vein, Percutaneous Approach (ICD-10-PCS; 2024-09-21)
DX: K64.8 Other hemorrhoids (principal); E87.1 Hypo-osmolality and hyponatremia; K76.6 Portal hypertension; I85.10 Secondary esophageal varices without bleeding; K70.31 Alcoholic cirrhosis of liver with ascites; I10 Essential (primary) hypertension; J44.9 Chronic obstructive pulmonary disease, unspecified; Z86.73 Personal history of transient ischemic attack (TIA), and cerebral infarction without residual deficits; F17.200 Nicotine dependence, unspecified, uncomplicated; Z83.3 Family history of diabetes mellitus; K42.9 Umbilical hernia without obstruction or gangrene; K64.4 Residual hemorrhoidal skin tags; Z79.899 Other long term (current) drug therapy; K72.10 Chronic hepatic failure without coma; D64.9 Anemia, unspecified; B18.2 Chronic viral hepatitis C; K31.89 Other diseases of stomach and duodenum; D69.6 Thrombocytopenia, unspecified; R10.31 Right lower quadrant pain; K76.82 Hepatic encephalopathy; K21.9 Gastro-esophageal reflux disease without esophagitis; F41.9 Anxiety disorder, unspecified; Z86.0100 Personal history of colon polyps, unspecified; G89.29 Other chronic pain; Z85.828 Personal history of other malignant neoplasm of skin; I86.8 Varicose veins of other specified sites; K44.9 Diaphragmatic hernia without obstruction or gangrene; F10.91 Alcohol use, unspecified, in remission
CPT/HCPCS: 49083; 80053; 84132; 85014; 85018; 85025; 85027; 85610; 85730; 86850; 86900; 86901; 86920; 86922; 89051; 93005; 96365; 96366; 96375; 97162; 97166; 99285; P9016; P9047

== ENCOUNTER 2024-09-26 15:40 | Inpatient (IN) | payer BC, SELFPAY ==
[2024-09-26] VITALS (12 sets, daily range): BP systolic 90–123; BP diastolic 49–74; BMI 25.9; BMI 26.0
--- NOTE | 2024-09-26 10:30 | ED.GENMED ---
History of Present Illness
General
Chief Complaint: Change in Mental Status
Source: patient and family
Exam Limitations: clinical condition
Time Seen by Provider: 09/26/24 10:08
Nursing documentation reviewed up to this point in time: agreed with
History of Present Illness
History of Present Illness:
59 yo M with h/o ESLD secondary to alcoholic cirrhosis, UGI bleed during hospitalization for blood oloos anemia end of aug with transfer to [facility] where he had cuaterization of the gastric artery
h/o SBP during hosiptalization in august
here with change in mental status
pt was more agitated yesterday with family , edwigein fabi granddaughter, he kicked the dog yesterdya which is unlike him
he has been generally weaker and weaker and today feels 'like sh*t'
noticed mode tarry stool this morning which restarted
he was admitted here 09/20-09/23 for weakness, anemia, abdominal distension and had hg of8. he was given protonix, octroeotide adn PPX abx; pt had BRB thinking it was hemorrhoidal and got 1 unit of blood for hg of 6.9; discharge hg was 8.5;
he had para on 09/20 which was neg for SBP
pt's says his stools looked ok until today
he also has a hematoma to R flank ever since his procedure at [facility] and it has been growing
she said the doctor measured it during his last admission and it was expanding outside
he has no pain
no thinners
he refused meds today including lactulose
Past History
Past History
ED Past Medical History: COPD, CVA, HTN, Psychiatric and Other
ED Past Surgical History: Other
Social History
Tobacco: Smoker
Alcohol: Former
Drug: None
Personal:
Living: with family
Employment: Employed
Family History
Family History: Diabetes and Other
Review of Systems
Review of Systems
Allergies reviewed?: Yes
All Other Systems: Not applicable
Phy Exam
Physical Exam
Physical Exam:
GENERAL: Alert ,chronically ill appearing, awake, mildly drowsy
HEAD: NCAT
EYE: pupils equal and reactive, no nystagmus, no photophobia, pale
NECK: Supple,full rom, nontender
ENT: o/p clr, mmm.
CARDIAC: Regular rate and rhythm . mild edema; + murmur
LUNGS: dminisiehd no acute respiratory distress, no wheezes/rales/rhonchi
ABDOMEN: Soft, without focal tenderness, no r/g, no cvat
NEUROLOGICAL: Alert and orientedx 4, cn intact, no facial asymmetry, 5/5 strength in UE/LE, sensation intact,, neg asterixis
SKIN: Warm and dry, skin intact. pale ,multile petechia all over, bruising
MUSCULOSKELETAL: mil dedema
PSYCH: Normal and appropriate interaction.
Course
Orders/Labs/Results
Orders:
Orders
09/26/24 10:19
CT Abd/Pel (IV only)-DH only Urgent
Comment: expanding hematoma R flank; low hg
Reason For Exam: cirrhosis, procedure R abd a few weeks ago;
09/26/24 10:23
Consult Interventional Radiology [IRAD CONSULT] Urgent
Consulting Provider: Roger Bailon
Was physician already notified: Yes
Reason for Consult/Procedure: paracentesis; s/o SBP
Acknowledgement that appropriate orders are entered: Yes
09/26/24 10:42
Blood Culture Q30M
LOVE Source: Blood/Venous
Specimen Description:
09/26/24 11:10
Type+Screen Urgent
Ammonia Urgent
Complete Blood Count/With Diff Urgent
Comprehensive Metabolic Panel Urgent
Lactic Acid Urgent
Lipase Urgent
Blood Culture Q30M
LOVE Source: Blood/Venous
Specimen Description:
09/26/24 11:28
PTT Urgent
Prothrombin Time Urgent
09/26/24 11:57
Body Fluid Albumin Routine
Fluid Source: Peritoneal (Ascites)
Date Specimen was Collected: 09/26/24
Time Specimen was Collected: 12:15
Body Fluid Cell Count Routine
What is the Body Fluid: peritoneal fluid
Date Specimen was Collected: 09/26/24
Time Specimen was Collected: 12:15
Comment: post procedure
Body Fluid LDH Routine
Fluid Source: Peritoneal (Ascites)
Date Specimen was Collected: 09/26/24
Time Specimen was Collected: 12:15
Body Fluid Protein Routine
Fluid Source: Peritoneal (Ascites)
Date Specimen was Collected: 09/26/24
Time Specimen was Collected: 12:15
Fluid Culture with Gram Stain Routine
LOVE Source: Peritoneal Fluid
Specimen Description:
Date Specimen was Collected: 09/26/24
Time Specimen was Collected: 12:15
Comment: Post Procedure
09/26/24 12:58
Lactulose [Duphalac/Chronulac] 20 grams PO NOW STA
09/26/24 13:11
0.9% Sodium Chloride 500 ml [Nss] 500 ml IV BOLUS
CR Chest - 2 Views Urgent
Comment:
Reason For Exam: fever
09/26/24 13:12
0.9% Sodium Chloride 500 ml [Nss] 500 ml IV BOLUS
09/26/24 14:52
Obtain Records As Directed
Dates of Information to be Released: 09/2024
Type of Information Requested: Other
If Other, list type of info requested: recent EGD with gastric artery coiling procedure
Obtain Records from: [facility]
Comment: GI notes
09/26/24 14:57
Urinalysis Reflex To Culture Urgent
09/26/24 Dinner
Sodium, 2 Gram
At Your Request: Full Participation
Does patient need a safe tray?: No
09/26/24 15:15
Albumin Human 25% 100 ml [Flexbumin] 25 grams in 100 ml IV Q100M
09/26/24 15:29
Admit/Transfer Patient As Directed
Co-Sign Provider:
Level of Care: Inpatient admission
Assign to:: Telemetry
Physician / Group: romelia
Diagnosis: confusion
Reason for Telemetry: Arrhythmia
Date to Stop Telemetry: 09/29/24
Time to Stop Telemetry: 11:00
Reason for Hospitalization: SBP
Expected length of stay greater than two midnights?: Yes
ELOS- Estimated Length of Stay in days: 2
I certify the patient meets the requirements for IP care: Yes
PRN Pain Medication Management As Directed
May give lesser potent ordered pain med per pt: Yes
preference::
Protocol:: Medication orders for pain may be administered in a
manner that supports deferring to patient preference
when the pt is:
- Requesting an ordered lesser potent pain medication.
Least to most potent pain medications are defined
as: acetaminophen < NSAID < tramadol < opioids
(morphine, oxycodone, hydromorphone).
- Requesting a lesser dose of the same medication IF
ORDERED.
- Requesting a less intrusive route of administration
if both routes are prescribed by the provider (PO <
IV).
09/26/24 15:30
Code Status As Directed
Resuscitation Status: Full Code
09/26/24 15:31
Lactic Acid Urgent
09/26/24 16:00
CefTRIAXone [Rocephin] 2,000 mg IV Q24H
09/26/24 17:44
Lactulose [Duphalac/Chronulac] 20 grams PO TID
Lidocaine [Lidocaine 4% Patch] 1 patch TOPICAL DAILYPRN PRN
Apply Lidocaine patch(s) to:: right knee and right shoulder
Ondansetron HCl [Zofran] 4 mg PO DAILYPRN PRN
Tramadol HCl [Ultram] 50 mg PO BIDPRN PRN
09/26/24 17:44
Activity As Directed
Activity Level: As Tolerated
Pneumatic Compression Sleeves As Directed
Type: Knee high
Vital Signs As Directed
Frequency: Per unit guidelines
DX Deep Vein Thrombosis Video Routine
09/26/24 20:00
Magnesium l-Lactate [Mag-Tab Sr] 84 mg PO BID
Miconazole Nitrate [Desenex/Mitrazol/Zeasorb] See Dose Instructions TOPICAL BID
Pantoprazole [Protonix IV] 40 mg IV BID
Phenyleph/Mineral Oil/Petrolat [Preparation H Ointment] 1 applic RECTAL BID
Rifaximin [Xifaxan] 550 mg PO BID
[id number] [Breztri Aerosphere] 2 inh INH R BID
09/27/24 06:00
Complete Blood Count/With Diff IN AM
Comprehensive Metabolic Panel IN AM
09/27/24 08:00
Ferrous Sulfate [Feosol] 325 mg PO DAILY
Thiamine HCl [Vitamin B1] 100 mg PO DAILY
09/29/24 11:00
DC Protocol for Telemetry ONCE
Abnormal Lab Results
09/26/24 09/26/24
11:10 11:28
RBC 2.63 L 10^6/uL
(4.70-6.10)
Hgb 8.4 L g/dL
(13.0-18.0)
Hct 25.9 L %
(39.0-52.0)
MCV 98.5 H fL
(80.0-94.0)
MCH 31.9 H pg
(27.0-31.0)
MCHC 32.4 L g/dL
(33.0-37.0)
RDW 18.0 H %
(11.5-14.5)
Plt Count 46 L 10^3/uL
(130-400)
MPV 10.5 H fL
(7.4-10.4)
Abs Immat Gran (auto) 0.1 H 10^3/uL
(0-0.05)
Absolute Neuts (auto) 8.3 H 10^3/uL
(1.4-6.5)
Absolute Lymphs (auto) 0.6 L 10^3/uL
(1.2-3.4)
Immature Gran % 0.9 H %
(0-0.5)
Neutrophils % 85.7 H %
(42.2-75.2)
Lymphocytes % 6.6 L %
(20.5-51.1)
PT 20.3 H Sec
(11.4-14.6)
APTT 40.4 H Sec
(23.4-35.0)
Sodium 130 L mmol/L
(135-145)
Carbon Dioxide 20 L mmol/L
(-30)
BUN 39 H mg/dl
(-)
Glucose 176 H mg/dl
(70-99)
Lactic Acid 2.2 H mmol/L
(0.7-2.0)
Calcium 7.9 L mg/dl
(8.4-10.2)
Total Bilirubin 2.7 H mg/dl
(0.2-1.3)
Ammonia 48 H umol/L
(-)
Total Protein 4.8 L g/dl
(6.3-8.2)
Albumin 2.5 L g/dl
(3.5-5.0)
09/26/24 11:10
09/26/24 11:10
Vital Signs
Initial and Last Documented VS:
Initial Vital Signs
Temp Pulse Resp BP Pulse Ox
99.4 F 97 18 104/58 98
09/26/24 09:43 09/26/24 09:43 09/26/24 09:43 09/26/24 09:43 09/26/24 09:43
Last Documented Vital Signs
Temp Pulse Resp BP Pulse Ox
98.6 F 99 20 120/55 95
09/26/24 17:57 09/26/24 17:57 09/26/24 17:57 09/26/24 17:57 09/26/24 17:57
MDM/Problems Addressed
Differential Diagnosis Includes:
encephalopathy, SBP, pna, covid, uti, sepsis
MDM/Problems Addressed:
brittany razo admitted 09/20-09/23 for fatigue, low hg with h/o UGI bleeding
went home and was agitated starting yesterday, with change in behavior; refused meds last night
this morning feels fatigued and stools were dark per
febril 100.4 rectally
stable bp
awake and alert and not overly confused
distended abdomen with bruising from a procedure last month when he was TXF to [place] for ugi bleeding; ct did not show any active bleeding
but hg is stable today
concerning for SBP
went to IR and had 4700 ml drained, clear fluids per IR
pathology appeaars c/w sbp and i had discussed with ed attending prior to it resulting whether to empirically treat or wait and we waited for the cytology to result and gave antibitoics
i also spoke with GI about albumin orders
pt admitted
*Critical Care Note
Total Time (30-74mins, 75-104mins- exclusive of procedures): Not Applicable
ED Attending Note
-
Portions of this chart may have been created with voice recognition software.� Occasional wrong word or��sound alike� substitutions may have occurred due to the inherent limitations of voice recognition software.
Discharge Plan
Departure
Patient Disposition: Admit
Date of Disposition: 09/26/24
Time of Disposition: 12:00
Admit to: IMU
Presentation/result/management discussed w/ accepting MD/DO: Hospitalist
Condition: Fair
Covid-19: Not Applicable
Discharge Problem:
Acute hepatic encephalopathy
Interventions
Interventions:
*Risk Screen - Suicide Last Done: 09/26/24 17:58
*General Assessment Last Done: 09/26/24 09:43
*Neglect/Abuse Screening Last Done: 09/26/24 09:43
ED- Fall Risk Assessment Last Done: 09/26/24 12:11
*ED COVID-19 Vaccine History Last Done: 09/26/24 17:58
*Nursing Disposition Last Done: 09/26/24 17:41
ED- Pulmonary Assessment Last Done: 09/26/24 12:11
ED- Neurological Assessment Last Done: 09/26/24 12:11
ED- Cardiac Assessment Last Done: 09/26/24 12:11
ED Swallowing Screen Last Done: 09/26/24 12:11
Discharge Date and Time
Discharge Date/Time: 09/26/24 17:41
[2024-09-26 11:26] LABS: % Basophils 0.2 % (0-2); % Eosinophils 2.2 % (0-6); % Immature Granulocytes 0.9 % (0-0.5); % Lymphocytes 6.6 % (20.5-51.1); % Monocytes 4.4 % (1.7-9.3); % Neutrophils 85.7 % (42.2-75.2); Absolute Eosinophils 0.2 10^3/uL (0-0.7); Absolute Immature Granulocytes 0.1 10^3/uL (0-0.05); Absolute Lymphocytes 0.6 10^3/uL (1.2-3.4); Absolute Monocytes 0.4 10^3/uL (0.1-0.6); Absolute Neutrophils 8.3 10^3/uL (1.4-6.5); Hematocrit 25.9 % (39.0-52.0); Hemoglobin 8.4 g/dL (13.0-18.0); Mean Corp Hgb Conc. 32.4 g/dL (33.0-37.0); Mean Corpuscular Hgb 31.9 pg (27.0-31.0); Mean Corpuscular Volume 98.5 fL (80.0-94.0); Mean Platelet Volume 10.5 fL (7.4-10.4); Nucleated Red Blood Cells % 0 % (-); Platelet Count 46 10^3/uL (130-400); Red Blood Cell Count 2.63 10^6/uL (4.70-6.10); White Blood Cell Count 9.7 10^3/uL (4.8-10.8)
[2024-09-26 11:39] LABS: Lactic Acid 2.2 mmol/L (0.7-2.0)
[2024-09-26 11:40] LABS: Ammonia 48 umol/L (9-30)
[2024-09-26 11:44] LABS: INR 1.68; PT 20.3 Sec (11.4-14.6)
[2024-09-26 11:45] LABS: APTT 40.4 Sec (23.4-35.0)
[2024-09-26 11:54] LABS: ALT (SGPT) 19 U/L (0-50); AST (SGOT) 40 U/L (17-59); Albumin 2.5 g/dl (3.5-5.0); Alkaline Phosphatase 101 U/L (38-126); Blood Urea Nitrogen 39 mg/dl (9-20); Calcium 7.9 mg/dl (8.4-10.2); Carbon Dioxide 20 mmol/L (22-30); Chloride 102 mmol/L (98-107); Glucose 176 mg/dl (70-99); Lipase 148 U/L (23-300); Potassium 4.7 mmol/L (3.5-5.1); Sodium 130 mmol/L (135-145); Total Bilirubin 2.7 mg/dl (0.2-1.3); Total Protein 4.8 g/dl (6.3-8.2); eGFR > 60.00
[2024-09-26 13:04] LABS: Body Fluid Albumin < 1.0 g/dl; Body Fluid LDH < 90 U/L; Body Fluid Protein < 2.0 g/dl
[2024-09-26] MEDS: DUPHALAC/CHRONULAC 20 GRAMS PO ×3 (13:08→21:25)
[2024-09-26] MEDS: NSS 500 IV (13:12)
[2024-09-26 13:28] LABS: Body Fluid Mononuclear 21.2 %; Body Fluid Polymorphonuclear 78.8 %; Body Fluid WBC 2604 /CUMM
--- NOTE | 2024-09-26 13:41 | HPS.HSE ---
Addendum entered and electronically signed by Marky Meza MD 09/26/24 15:36:
Held diuretics.
Addendum entered and electronically signed by Marky Meza MD 09/26/24 15:34:
GI okay with regular diet.
Original Note:
Family Physician
-
Family Physician: Drake Goss
Chief Complaint
-
confusion
History of Present Illness
59-year-old male past medical history of cirrhosis with end-stage liver disease secondary to alcoholic cirrhosis, recurrent ascites, recurrent SBP, hepatic encephalopathy, upper GI bleeding, history of gastric varices, COPD presenting for change in
mental status. Patient was more agitated yesterday with family including his grandmother. He kicked the dog yesterday which is unlike him. He has been feeling generally weaker and states that he feels like 'shit.
noticed dark tarry stool this morning.
He was recently admitted from 09/20 to 09/23 for weakness and anemia and abdominal distention. He was treated with Protonix, octreotide and PPI and antibiotics. He received 1 unit of blood. He had paracentesis which was negative for SBP.
He denies any cough or fevers or chills. Denies nausea vomiting or diarrhea. Denies urinary symptoms.
Not drinking alcohol.
Medical History
Past Medical History
Past Medical History: Reports Other (cirrhosis with end-stage liver disease secondary to alcoholic cirrhosis, recurrent ascites, recurrent SBP, hepatic encephalopathy, upper GI bleeding, history of gastric varices, COPD)
Past Surgical History: Reports None
Social History
Tobacco: Non-smoker
Alcohol: None
Drug: None
Family History
Family History: Not pertinent
Allergies / Home Medications
Allergies reflects when Allergies were last updated in [facility].
Home Medications with original date entered in [facility]
Allergy/Medication List:
Allergies
Allergy/AdvReac Type Severity Reaction Status Date / Time
No Known Allergies Allergy Verified 09/26/24 09:47
Home Medications
thiamine HCl (vitamin B1) 100 mg tablet 100 mg PO DAILY Supplement 03/13/24
budesonide 160 mcg-glycopyr 9 mcg-formot 4.8 mcg/actuation HFA inhaler (Breztri Aerosphere) 2 inh inhalation R BID Lung/Breathing Issues 04/11/24
magnesium oxide 400 mg PO BID Supplement 06/28/24
rifaximin 550 mg tablet (Xifaxan) 550 mg PO BID hepatic encephalopathy 06/28/24
lactulose 20 gram/30 mL oral solution 20 g (30 mL) PO TID Liver issues #2,880 mL 07/01/24
pantoprazole 40 mg tablet,delayed release (Protonix) 40 mg PO BID Gastrointestinal Issue 08/02/24
furosemide 20 mg tablet 20 mg PO DAILY Fluid retention/Swelling #30 tabs 08/24/24
lidocaine 4 % topical patch 1 patch topical DAILYPRN PRN right knee and right shoulder 09/08/24
miconazole nitrate 2 % topical powder (Miconazorb AF) 1 applic topical BID groin/scrotum 09/08/24
ondansetron HCl 4 mg tablet 4 mg PO DAILYPRN PRN nasuea 09/08/24
ferrous sulfate 325 mg (65 mg iron) tablet (FeroSul) 325 mg PO DAILY Supplement 09/26/24
phenylephrine 0.25 %-mineral oil 14 %-petrolatm 74.9 % rectal ointment (Hemorrhoidal(phenyleph-min oil-petrolat)) 1 applic NE BID hemorrhoids 09/26/24
spironolactone 25 mg tablet 25 mg PO DAILY Liver cirrhosis 09/26/24
tramadol 50 mg tablet 50 mg PO BID PRN moderate-severe pain 09/26/24
trazodone 50 mg tablet 25 mg PO HSPRN PRN sleep 09/26/24
Review of Systems
-
History Source: Patient
A 12 point ROS was completed and negative except as noted: Yes
Constitutional: Reports No Symptoms
EENT: Reports No Symptoms
Respiratory: Reports No Symptoms
Cardiac: Reports No Symptoms
Abdomen/GI: Reports See HPI
: Reports No Symptoms
Musculoskeletal: Reports No Symptoms
Skin: Reports No Symptoms
Neurological: Reports See HPI
Endocrine: Reports No Symptoms
Hematologic/Lymphatic: Reports No Symptoms
Psych: Reports No Symptoms
Physical Exam
Vital Signs
Vital Signs
Temp Pulse Resp BP Pulse Ox
99.0 F 90 18 109/52 97
09/26/24 13:35 09/26/24 12:11 09/26/24 12:11 09/26/24 12:11 09/26/24 12:11
Physical Exam
General: Well Developed, Well Nourished and No Apparent Distress
HEENT: NormoCephalic, Moist mucous membranes and Atraumatic
Respiratory: Clear
Cardiac: S1/S2 and Regular Rhythm; No Murmur or Rub
GI: Soft, Non Tender, Non Distended and Normal Bowel Sounds; No Organomegaly
Rectal: Deferred by Provider
Musculoskeletal: No Clubbing, No Cyanosis and No Edema
Skin: No Rash
Neuro: Nonfocal/grossly intact
Laboratory Results
-
09/26/24 11:10
09/26/24 11:10
Laboratory Results
PT 20.3 Sec (11.4-14.6) H 09/26/24 11:28
INR 1.68 09/26/24 11:28
APTT 40.4 Sec (23.4-35.0) H 09/26/24 11:28
Lactic Acid 2.2 mmol/L (0.7-2.0) H 09/26/24 11:10
Total Bilirubin 2.7 mg/dl (0.2-1.3) H 09/26/24 11:10
AST 40 U/L (17-59) 09/26/24 11:10
ALT 19 U/L (0-50) 09/26/24 11:10
Alkaline Phosphatase 101 U/L (38-126) 09/26/24 11:10
Lipase 148 U/L (23-300) 09/26/24 11:10
Data Reviewed
-
Lab Data: Labs Reviewed by me
Old Records: Reviewed
Impression/Plan
-
IMPRESSION:
PLAN:
#Recurrent hepatic encephalopathy
-Ammonia 48 decreased from 67 previous
-Continue lactulose, Xifaxan
-Hold trazodone
# Decompensated alcoholic cirrhosis with recurrent ascites secondary to SBP
-Fever 100.4
-Patient normally receives paracentesis every Tuesday
-IR drained 4.7 L
-albumin ordered
-Check blood cultures
-Ceftriaxone
-GI consulted
# Recurrent upper GI bleeding likely secondary to portal hypertensive gastropathy
# History of gastric varices status post gastric artery coiling 09/2024
# Chronic macrocytic anemia secondary to liver disease
-Thought to be secondary to portal hypertensive gastropathy on recent EGD 2 admissions prior
-Hemoglobin stable at 8.4
-Clear liquid diet
-Protonix 40 IV twice daily
-GI consulted
# Chronic severe thrombocytopenia secondary to liver disease
-Platelets of 47
# Abdominal bruising secondary to multiple paracentesis
-CT abdomen pending
Hepatitis C status post treatment with Epclusa
History of colon polyps with polyp removal
History of hemorrhoids
Portal hypertension
Chronic pain
Essential hypertension
GERD
History of skin cancer status post Mohs surgery
Anxiety
COPD
Full code
DVT prophylaxis�SCDs
N.p.o.
--- NOTE | 2024-09-26 14:14 | CON.GI ---
Addendum entered and electronically signed by Jennifer Weaver MD 09/26/24 16:24:
I saw and examined the patient.
The remote medical coder note was reviewed and I agree with the note.
59 y.o male with past medical history significant for decompensated cirrhosis (HCV vs EtOH) with intractable ascites with weekly para, HE, GI bleeding well-known to our group which has been complicated by recurrent hospitalizations with HE
secondary to acute on chronic GI bleeding 2/2 PHG gastric varix, hx of prior post-polypectomy bleed requiring Ovesco clips , chronic HCV (s/p treatment with Epclusa s/p SVR), CVA, HTN, COPD, and chronic thrombocytopenia admitted at this time with
altered mental status. He aslo underwent paracentesis today. Patient is currently being evaluated for liver transplantation by Dr. [facility].
paracentesis today with removal of 4700 cc of clear yellow ascitic fluid. Fluid analysis suggestive of SBP
CT abdomen/pelvis with IV contrast only
Mild wall thickening of esophagus
Subtle liver surface nodularity consistent with liver cirrhosis. Evidence of portal hypertension
No bowel obstruction
Right inguinal hernia containing fluid extending into the superior right scrotum. Similar to prior examination
Labs 09/26/2024
Hemoglobin 8.4/WBC 9.7/platelets 46
INR 1.68
Sodium 130/potassium 4.7/BUN 39/serum creatinine 1.2
AST 40/ALT 19/alkaline phosphatase 101/total bilirubin 2.7/albumin 2.5
Ammonia 48
Ascitic fluid
WBC 2604. Polymorphs 78.8%. Total protein less than 2, albumin less than 1, fluid LDH less than
-- Decompensated liver cirrhosis - MELD - Na ( ) 22
-- SBP
-- Altered mental status -possible etiology hepatic encephalopathy versus medication induced
-- Chronic anemia. No overt GI bleeding at present. Hb stable
plan
Continue antibiotics
Replace albumin 1.5 mg/kg today then day 3 1 mg/kg
Follow-up fluid culture
Continue follow-up H&H
Continue lactulose-titrate to 3-4 BMs per day. Also continue rifaximin
Avoid opioids
Daily MELD labs
2 g sodium diet
Will hold off on diuretics with SBP
Original Note:
Consultation
-
Date/Time Consultation Requested: 09/26 ,13:54
Date/Time Consultation Performed: 09/26, 15:10
Requesting Provider: Inge Cortez
Performing Provider: Jennifer Weaver
Reason for Consultation: Hepatic encephalopathy
Medical History
Chief Complaint / HPI
Chief Complaint: Agitatio,confusion and tarry dark stools-1 day
History of Present Illness:
Patient is a 59 y.o male with past medical history significant for decompensated chronic liver disease secondary to HCV/alcohol cirrhosis, chronic HCV (s/p treatment with Epclusa s/p SVR),post polypectomy, CVA, HTN, COPD, and chronic
thrombocytopenia who had recurrent hospital admissions for upper GI bleed and HE presented with agitated behavior observed by family yesterday. He also had dark tarry stools and was slow and developed increased confusion.
He admits to missing lactulose dose yesterday as he was tired of taking medications.He had abdominal distension and dark colored stools.He denies any fever,chest pain,cough,congestion,vomiting,diarrhea,burning micturation or any change in dietary
habits.Admitted 09/20-09/23 for weakness, anemia, abdominal distension ,he was treated on lines of UGIB. He completed EGD and sent to [facility] for ultrasound guided gastric artery coiling procedure and discussed if not effective possible TIPS.He is also
having meetings with the liver transplant team. There is a hematoma from paracentesis 1 week ago.
He is oriented to time place and person although he is a bit slow and takes time to understand and answer questions.His hemaroma delfino on right flank is growing out of the margins. His MELD score is 18-23. He has grade 1 hepatic encephalopathy.
His lab work shows hemoglobin of 8.4 with a hematocrit of 25.9, his TLC count is 9.7 platelet count is 46 ,serum chemistry is pending. His paracentesis is consistent with SBP.Chest x-ray shows left lower lobe interstitial prominence consistent with
pneumonia. CT abdomen pelvis shows Subtle liver surface nodularity, consistent with history of cirrhosis. Evidence of portal hypertension, with splenomegaly, extensive portosystemic venous collaterals, mild ascites and peritoneal/mesenteric edema.
Third spacing.Findings suspicious for portal hypertension gastropathy involving the colon and small bowel.
Patient has multiple risk factors for hepatic encephalopathy including medication noncompliance, bloody stools, pneumonia, and SBP.
..
Past Medical History
Past Medical History: Other (As listed above- Decompensated HCV/EtOH cirrhosis s/p hep C treatment, c/b recurrent HE and GI bleeding 2/2 oozing PHG and recurrent ascites, gastic varix with recent bleeding 09/2024 )
Past Surgical History: Other (Mohs surgery)
Social History
Tobacco: Non-Smoker
Alcohol: Former
Drug: None
Personal:
Living: With Family
Employment: Not Employed
Family History
Family History: Other (no family hx liver disease )
Allergies / Home Medications
Allergy/AdvReac Type Severity Reaction Status Date / Time
No Known Allergies Allergy Verified 09/26/24 09:47
�Medication �Instructions �Recorded
thiamine HCl (vitamin B1) 100 mg 100 mg PO DAILY Supplement 03/13/24
tablet
budesonide 160 mcg-glycopyr 9 2 inh inhalation R BID 04/11/24
mcg-formot 4.8 mcg/actuation HFA Lung/Breathing Issues
inhaler (Breztri Aerosphere)
magnesium oxide 400 mg PO BID Supplement 06/28/24
rifaximin 550 mg tablet (Xifaxan) 550 mg PO BID hepatic 06/28/24
encephalopathy
lactulose 20 gram/30 mL oral 20 g (30 mL) PO TID Liver issues 07/01/24
solution #2,880 mL
pantoprazole 40 mg tablet,delayed 40 mg PO BID Gastrointestinal Issue 08/02/24
release (Protonix)
furosemide 20 mg tablet 20 mg PO DAILY Fluid 08/24/24
retention/Swelling #30 tabs
lidocaine 4 % topical patch 1 patch topical DAILYPRN PRN right 09/08/24
knee and right shoulder
miconazole nitrate 2 % topical 1 applic topical BID groin/scrotum 09/08/24
powder (Miconazorb AF)
ondansetron HCl 4 mg tablet 4 mg PO DAILYPRN PRN nasuea 09/08/24
ferrous sulfate 325 mg (65 mg 325 mg PO DAILY Supplement 09/26/24
iron) tablet (FeroSul)
phenylephrine 0.25 %-mineral oil 1 applic NE BID hemorrhoids 09/26/24
14 %-petrolatm 74.9 % rectal
ointment
(Hemorrhoidal(phenyleph-min
oil-petrolat))
spironolactone 25 mg tablet 25 mg PO DAILY Liver cirrhosis 09/26/24
tramadol 50 mg tablet 50 mg PO BID PRN moderate-severe 09/26/24
pain
trazodone 50 mg tablet 25 mg PO HSPRN PRN sleep 09/26/24
Review of Systems
-
All other systems: A 12 pt ROS was Negative except as stated above in HPI
Vital Signs
Temp Pulse Resp BP Pulse Ox
99.0 F 90 18 109/52 97
09/26/24 13:35 09/26/24 12:11 09/26/24 12:11 09/26/24 12:11 09/26/24 12:11
Physical Exam
Exam
General: No Apparent Distress, Comfortable and Other (Somnolent and slower in actions)
HEENT: Anicteric and Moist Mucous Membranes
Respiratory: Clear
Cardiac: S1/S2 and Regular Rhythm
GI: Soft, Non Tender and Other (Bruising on the skin in the right flank region, extending beyond the margins that were marked last week)
Rectal: Other (Patient declined)
Genito-urinary: No Costovertebral Tender
Musculoskeletal: No Clubbing and Edema (Bilateral pitting edema)
Skin: Warm and Other (Petechiae and bruising)
Neuro: No Motor Deficits and Other (Somnolent and confused)
Hematologic/Lymphatic: No Lymphadenopathy
Psych: Calm
Results
WBC 9.7 10^3/uL (4.8-10.8) 09/26/24 11:10
Hgb 8.4 g/dL (13.0-18.0) L 09/26/24 11:10
Hct 25.9 % (39.0-52.0) L 09/26/24 11:10
MCV 98.5 fL (80.0-94.0) H 09/26/24 11:10
Plt Count 46 10^3/uL (130-400) L 09/26/24 11:10
Absolute Neuts (auto) 8.3 10^3/uL (1.4-6.5) H 09/26/24 11:10
PT 20.3 Sec (11.4-14.6) H 09/26/24 11:28
INR 1.68 09/26/24 11:28
APTT 40.4 Sec (23.4-35.0) H 09/26/24 11:28
Sodium 130 mmol/L (135-145) L 09/26/24 11:10
Potassium 4.7 mmol/L (3.5-5.1) 09/26/24 11:10
Chloride 102 mmol/L (98-107) 09/26/24 11:10
Carbon Dioxide 20 mmol/L (22-30) L 09/26/24 11:10
BUN 39 mg/dl (9-20) H 09/26/24 11:10
Creatinine 1.2 mg/dL (0.7-1.3) 09/26/24 11:10
Calcium 7.9 mg/dl (8.4-10.2) L 09/26/24 11:10
Total Bilirubin 2.7 mg/dl (0.2-1.3) H 09/26/24 11:10
AST 40 U/L (17-59) 09/26/24 11:10
ALT 19 U/L (0-50) 09/26/24 11:10
Alkaline Phosphatase 101 U/L (38-126) 09/26/24 11:10
Lipase 148 U/L (23-300) 09/26/24 11:10
Diagnostic Image Results:
Diagnostic Image Results:
09/2024 gastric art coiling procedure at [facility] -- report pending
09/09/24 EGD [facility] - Type 1 isolated gastric varices (IGV1, varices
located in the fundus) with a small amount of oozing
and stigmata of recent bleeding found in the gastric
fundus. This is the source of patient's presentation.
No endoscopic therapy was performed given large
isolated gastric varices as these were not contiguous
with the GE-junction
- Moderate portal hypertensive gastropathy
- Otherwise, normal stomach on direct and retroflexion
views
- Normal esophagus without any esophageal varices
- Small amount of red blood in the second portion of
the duodenum. No duodenal varices were visualized
- The examination was otherwise normal.
- No specimens collected.
colonoscopy 08/22/24 Charlotte Bunn MD Non-bleeding internal hemorrhoids were found during retroflexion. The
hemorrhoids were large.
Multiple diverticula were found in the sigmoid colon and descending
colon.
The exam was otherwise without abnormality.
Diffuse colopathy
Old ovesco clip seen in ascending colon
An 8 mm polyp was found in the sigmoid colon. The polyp was sessile.
Polypectomy was not attempted given recent GI bleeding.
repeat colon 6-12 month with fair prep and polyps removed
Small bowel enteroscopy 08/22/24 Charlotte Bunn MD
- Normal esophagus.
- Severe portal hypertensive gastropathy with active
bleeding. Treated with argon plasma coagulation (APC).
- 2 cm hiatal hernia.
- Normal examined duodenum.
- The examined portion of the jejunum was normal.
- No specimens collected.
EGD: 06/29/24 maci Gaviria MD - Normal esophagus.
- Portal hypertensive gastropathy.
- Normal examined duodenum.
- No specimens collected.
05/07/[address] Smith : - Hemorrhoids found on perianal exam.
- The examined portion of the ileum was normal.
- Foreign body (OVSCO clip) at the hepatic flexure.
- Polypoid lesion at the hepatic flexure.
- Diverticulosis in the sigmoid colon and in the
descending colon.
- Internal hemorrhoids.
- No specimens collected.
Colonoscopy 04/13/2024-[facility] - One 15 to 18 mm polyp at the hepatic flexure,
removed using lift and cut and a hot snare and removed
with a cold snare. Resected and retrieved. Injected.
Treated with hot biopsy forceps. Ligated.
- One 4 mm polyp in the descending colon, removed with
a hot snare. Resected and retrieved. Clip was placed.
- Diverticulosis in the sigmoid colon, in the
descending colon and at the splenic flexure.
bx DC -TA and HF - HP polyp
EGD 04/13/2024� [facility] - No gross lesions in the entire esophagus. No varices.
- Z-line variable, 42 cm from the incisors.
- Portal hypertensive gastropathy.
- Normal examined duodenum.
- No specimens collected.
EGD:12/27/22 [facility] - Normal esophagus.
- Portal hypertensive gastropathy.
- Normal examined duodenum.
- No specimens collected.
04/11/2024 MRI Abd with and without:
IMPRESSION: Examination limited by motion artifact. CT may be useful as the next surveillance imaging examination, as perhaps there would be less motion artifact. Given this limitation, there is no MR evidence for hepatocellular carcinoma. Findings
of cirrhosis with ascites, splenomegaly, and prominent varices within the abdomen, and extending around the distal esophagus.
08/18/24 CT A/p
Cirrhotic appearing liver with large volume ascites, upper abdominal collateral vessels and splenomegaly.
Right inguinal hernia and umbilical hernia containing ascites fluid.
Unchanged 9 mm calculus in the proximal left ureter. No hydronephrosis
08/04/24 US doppler
Duplex ultrasound with color and spectral waveform analysis of the abdomen demonstrates high resistance waveform in the hepatic arteries such as may be seen with cirrhosis
The hepatic veins are patent with normal pulsatile flow
There is normal hepatopedal flow in the portal veins which are normal in caliber
no mass seen
IMPRESSION: Cirrhosis with splenomegaly and moderate ascites
frequent para-last completed -09/20- 5L, 09/09- 4L, 09/03 6.6 L, 09/26 SBP
Assessment / Plan
-
Impression
Patient is a 59 y.o male with past medical history significant for decompensated chronic liver disease secondary to HCV/alcohol cirrhosis, chronic HCV (s/p treatment with Epclusa s/p SVR),post polypectomy, CVA, HTN, COPD, and chronic
thrombocytopenia who had recurrent hospital admissions for upper GI bleed and HE presented with agitated behavior observed by family yesterday. He also had dark tarry stools and was slow and developed increased confusion.
Assessment
Hepatic encephalopathy grade 1?
Patient has multiple risk factors for hepatic encephalopathy including medication noncompliance, bloody stools, pneumonia, and SBP.
Ammonia 48
Paracentesis done in the emergency department consistent with SBP
Lactulose noncompliance
Chest x-ray consistent with pneumonia
Dark stools possibly melena
Somnolence and confusion
CT abdomen shows subtle liver surface nodularity, consistent with history of cirrhosis. Evidence of portal hypertension, with splenomegaly, extensive portosystemic venous collaterals, mild ascites and peritoneal/mesenteric edema. Third
spacing.Findings suspicious for portal hypertension gastropathy involving the colon and small bowel.
Past history of alcohol use and hepatitis C infection
PLAN
Start antibiotics to treat underlying SBP
Replace albumin
Treat pneumonia
Ensure medical compliance including lactulose
Prevent constipation
Neurochecks 6 hourly to assess the cognitive status
Vitals and CMP monitoring
-
-
Thank you for consultation and allowing me to participate in the patient's care. Please call the commercial loan collection officer GI physician during the after hours with any questions or concerns.
[2024-09-26 14:28] LABS: Body Fluid Second Tech AMA
[2024-09-26 15:52] LABS: Lactic Acid 1.6 mmol/L (0.7-2.0)
[2024-09-26] MEDS: FLEXBUMIN 100 IV ×4 (16:29→21:25)
[2024-09-26] MEDS: STERILE WATER FOR INJECTION 20 ML IV (16:34)
[2024-09-26] MEDS: ROCEPHIN 2000 MG IV (16:34)
[2024-09-26] MEDS: SYMBICORT 160/4.5 MCG INHALER INH (19:13)
[2024-09-26] MEDS: MAG-TAB SR 84 MG PO (19:52)
[2024-09-26] MEDS: PREPARATION H OINTMENT RECTAL ×2 (19:53→20:08)
[2024-09-26] MEDS: DESENEX/MITRAZOL/ZEASORB 1 APPLIC TOPICAL (19:53)
[2024-09-26] MEDS: XIFAXAN 550 MG PO (19:58)
[2024-09-26] MEDS: PROTONIX IV 40 MG IV (19:58)
[2024-09-26] MEDS: NSS (PRESERVATIVE FREE) 10 ML IV (19:59)
[2024-09-26 23:22] LABS: Urine Albumin Negative (Neg - Trace); Urine Bilirubin Negative (Negative); Urine Character Clear (Clear); Urine Color Yellow; Urine Glucose Negative (Negative); Urine Ketone Negative (Negative); Urine Leukocyte Trace (Negative); Urine Nitrite Negative (Negative); Urine Occult Blood Negative (Negative); Urine Urobilinogen Negative (Neg - 1+)
[2024-09-26 23:56] LABS: Urine Squamous Cell >30 /LPF (Few)
[2024-09-26 23:57] LABS: Urine Bacteria Moderate (Negative); Urine Mucus Few
[2024-09-27] VITALS (8 sets, daily range): BP systolic 102–124; BP diastolic 49–63
[2024-09-27] MEDS: SPIRIVA RESPIMAT 2.5 MCG INH (08:13)
[2024-09-27] MEDS: SYMBICORT 160/4.5 MCG INHALER INH ×2 (08:14→19:15)
[2024-09-27 08:35] LABS: % Basophils 0.4 % (0-2); % Eosinophils 4.9 % (0-6); % Immature Granulocytes 0.8 % (0-0.5); % Lymphocytes 13.2 % (20.5-51.1); % Monocytes 7.2 % (1.7-9.3); % Neutrophils 73.5 % (42.2-75.2); Absolute Eosinophils 0.2 10^3/uL (0-0.7); Absolute Lymphocytes 0.6 10^3/uL (1.2-3.4); Absolute Monocytes 0.4 10^3/uL (0.1-0.6); Absolute Neutrophils 3.6 10^3/uL (1.4-6.5); Hematocrit 21.4 % (39.0-52.0); Hemoglobin 7.3 g/dL (13.0-18.0); Mean Corp Hgb Conc. 34.1 g/dL (33.0-37.0); Mean Corpuscular Hgb 33.3 pg (27.0-31.0); Mean Corpuscular Volume 97.7 fL (80.0-94.0); Mean Platelet Volume 11.2 fL (7.4-10.4); Nucleated Red Blood Cells % 0 % (-); Platelet Count 40 10^3/uL (130-400); Red Blood Cell Count 2.19 10^6/uL (4.70-6.10); Red Cell Dist. Width 17.9 % (11.5-14.5); White Blood Cell Count 4.9 10^3/uL (4.8-10.8)
--- NOTE | 2024-09-27 09:01 | W.PN.GI.CBS2 ---
Addendum entered and electronically signed by Jennifer Weaver MD 09/27/24 14:02:
I saw and examined the patient.
The medical records library professor note was reviewed and I agree with the note.
59 y.o male with past medical history significant for decompensated cirrhosis (HCV vs EtOH) with intractable ascites with weekly para, HE, GI bleeding well-known to our group which has been complicated by recurrent hospitalizations with HE
secondary to acute on chronic GI bleeding 2/2 PHG gastric varix, hx of prior post-polypectomy bleed requiring Ovesco clips , chronic HCV (s/p treatment with Epclusa s/p SVR), CVA, HTN, COPD, and chronic thrombocytopenia admitted at this time with
altered mental status. He aslo underwent paracentesis today. Patient is currently being evaluated for liver transplantation by Dr. [facility] hepat[facility].
paracentesis today with removal of 4700 cc of clear yellow ascitic fluid. Fluid analysis suggestive of SBP
CT abdomen/pelvis with IV contrast only 09/26
Mild wall thickening of esophagus
Subtle liver surface nodularity consistent with liver cirrhosis. Evidence of portal hypertension
No bowel obstruction
Right inguinal hernia containing fluid extending into the superior right scrotum. Similar to prior examination
Ascitic fluid
WBC 2604. Polymorphs 78.8%. Total protein less than 2, albumin less than 1, fluid LDH less than
labs 09/26
Hb 7.3/WBC 12.9/platelet 40
Creatinine 1/BUN 35
AST 25/ALT 14/alkaline phosphatase 68/total bilirubin 1.6
INR 1.68
Blood culture 09/26/2024 positive for E. coli.
Urine culture pending
Ascitic fluid culture preliminary no growth after 18-24 hours
-- Decompensated liver cirrhosis - MELD - Na ( ) 22
-- SBP. Blood culture positive for E. coli. Fluid culture no growth preliminary.
-- Altered mental status -possible etiology hepatic encephalopathy versus medication induced. Currently resolved
-- Chronic anemia. No overt GI bleeding at present.
No complaints today. AAO x 3
plan
Repeat CBC this afternoon
Continue IV antibiotics as per medical team. ID consultation pending
Replace albumin on day3 - 1 mg/kg
Continue follow-up H&H
Continue lactulose-titrate to 3-4 BMs per day. Also continue rifaximin
Avoid opioids
Daily MELD labs
2 g sodium diet
Will hold off on diuretics with SBP
Patient to follow-up with [facility] liver transplantation team -appointment 10/11
Original Note:
Today's Communication / Plan
-
Continue ceftriaxone for SBP
Ensure medical compliance including lactulose
Advised patient against the use of any sedative medications
Vitals and CMP monitoring
Assessment / Plan
-
Impression
Patient is a 59 y.o male with past medical history significant for decompensated chronic liver disease secondary to HCV/alcohol cirrhosis, chronic HCV (s/p treatment with Epclusa s/p SVR),post polypectomy, CVA, HTN, COPD, and chronic
thrombocytopenia who had recurrent hospital admissions for upper GI bleed and HE presented with agitated behavior observed by family yesterday. Patient admitted with grade1 hepatic encephalopathy due to medication non-compliance,used xanax and
tramadol, and SBP.
Assessment
Hepatic encephalopathy grade 1?
Patient has multiple risk factors for hepatic encephalopathy including medication noncompliance, ,lung infiltrate, xanax,tramadol and atarax use and SBP.
Paracentesis done in the emergency department consistent with SBP
CT abdomen shows subtle liver surface nodularity, consistent with history of cirrhosis. Evidence of portal hypertension, with splenomegaly, extensive portosystemic venous collaterals, mild ascites and peritoneal/mesenteric edema. Third
spacing.Findings suspicious for portal hypertension gastropathy involving the colon and small bowel.
Past history of alcohol use and hepatitis C infection
Patient's cognitive function improved markedly
Had 4 bowel movements in the night
Oriented in time,place and person
Communicative and cooperative
PLAN
Continue ceftriaxone for SBP
Ensure medical compliance including lactulose
Advised patient against the use of any sedative medications
Vitals and CMP monitoring
Subjective
Subjective
Date of Service: September 27, 2024
Patient has improved.He is alert and oriented.
Objective
Data Reviewed
Laboratory Data:
Laboratory Results
09/27/24 07:59
Laboratory Results
PT 20.3 Sec (11.4-14.6) H 09/26/24 11:28
INR 1.68 09/26/24 11:28
APTT 40.4 Sec (23.4-35.0) H 09/26/24 11:28
Total Bilirubin 2.7 mg/dl (0.2-1.3) H 09/26/24 11:10
AST 40 U/L (17-59) 09/26/24 11:10
ALT 19 U/L (0-50) 09/26/24 11:10
Alkaline Phosphatase 101 U/L (38-126) 09/26/24 11:10
Lipase 148 U/L (23-300) 09/26/24 11:10
Vital Signs and I&O:
Vital Signs
Temp Pulse Resp BP Pulse Ox
98.4 F 92 16 112/54 96
09/27/24 08:00 09/27/24 08:00 09/27/24 08:00 09/27/24 08:00 09/27/24 08:00
I&O
09/26/24 09/27/24 09/28/24
06:59 06:59 06:59
Intake Total 440 / 440
Output Total 600 / 600
Balance -160 / -160
Physical Exam
Physical Exam
HEENT: Anicteric and Moist mucous membranes
Cardiology: Normal Sinus Rhythm, S1 and S2
Pulmonary: Clear
GI: Soft, Distended, Non Tender and Other (umblical hernia,hematoma in right flank from previous paracentesis)
Extremities: Edema (mild)
Neuro: Non Focal
--- NOTE | 2024-09-27 09:02 | VNURNOTE ---
Chart reviewed. Patient is current with [facility] nursing. Will continue to follow hospital course and DC plans.
[2024-09-27] MEDS: FEOSOL 325 MG PO (09:29)
[2024-09-27] MEDS: DUPHALAC/CHRONULAC 20 GRAMS PO ×3 (09:29→21:05)
[2024-09-27] MEDS: DESENEX/MITRAZOL/ZEASORB 1 APPLIC TOPICAL ×2 (09:30→19:46)
[2024-09-27] MEDS: VITAMIN B1 100 MG PO (09:30)
[2024-09-27] MEDS: MAG-TAB SR 84 MG PO ×2 (09:30→19:46)
[2024-09-27] MEDS: PROTONIX IV 40 MG IV ×2 (09:31→19:46)
[2024-09-27] MEDS: XIFAXAN 550 MG PO ×2 (09:31→19:46)
[2024-09-27] MEDS: PREPARATION H OINTMENT RECTAL ×2 (09:31→19:52)
[2024-09-27] MEDS: NSS (PRESERVATIVE FREE) 10 ML IV ×2 (09:32→19:45)
[2024-09-27 09:51] LABS: ALT (SGPT) 14 U/L (0-50); AST (SGOT) 25 U/L (17-59); Albumin 2.7 g/dl (3.5-5.0); Alkaline Phosphatase 68 U/L (38-126); Blood Urea Nitrogen 35 mg/dl (9-20); Calcium 7.8 mg/dl (8.4-10.2); Carbon Dioxide 21 mmol/L (22-30); Chloride 105 mmol/L (98-107); Estimated Creatinine Clearance 80 ml/min; Glucose 86 mg/dl (70-99); Potassium 3.7 mmol/L (3.5-5.1); Sodium 135 mmol/L (135-145); Total Bilirubin 1.6 mg/dl (0.2-1.3); Total Protein 4.6 g/dl (6.3-8.2); eGFR > 60.00
[2024-09-27] MEDS: ULTRAM 50 MG PO ×2 (10:04→19:51)
--- NOTE | 2024-09-27 12:16 | W.PN.HOSP.TC ---
Today's Communication/Plan
-
repeat blood culture in am
ID eval
dc rocephin/start ertapenem
Albumin in am
monitor mentaiton
trend cbc
Assessment / Plan
Assessment / Plan
# Toxic metabolic encephalopathy secondary to decompensated liver cirrhosis/hepatic encephalopathy
#Decompensated liver cirrhosis
-Ammonia 48 decreased from 67 previous
-Continue lactulose, Xifaxan
-Uptitrate lactulose if needed. Goal 3-4 loose bowel movements daily. Mentation seems to be improving significantly.
-Patient normally receives paracentesis every Tuesday
-IR drained 4.7 L
-Will require albumin 1 mg/kg tomorrow.
# Fever likely 2/2 secondary to SBP and ESBL bacteremia
# Lactic acidosis resolved
-Fever 100.4
-Blood cultures with ESBL.
-Ceftriaxone discontinued and started on ertapenem
-Fluid culture negative for growth so far. Preliminary
-Infectious disease consulted. May require prophylactic SBP antibiotics on discharge.
# Recurrent upper GI bleeding likely secondary to portal hypertensive gastropathy
# History of gastric varices status post gastric artery coiling 09/2024
# Chronic macrocytic anemia secondary to liver disease
-Thought to be secondary to portal hypertensive gastropathy on recent EGD 2 admissions prior
-Transfuse for hemoglobin less than 7. Currently at 7.3.
-tolerating diet
-Protonix 40 IV twice daily
-GI consulted
# Chronic severe thrombocytopenia secondary to liver disease
-Platelets of 40
#Hyponatremia
-resolved.
Hepatitis C status post treatment with Epclusa
History of colon polyps with polyp removal
History of hemorrhoids
Portal hypertension
Chronic pain
Essential hypertension
GERD
History of skin cancer status post Mohs surgery
Anxiety
COPD
Full code
DVT prophylaxis�SCDs in the setting of thrombocytopenia. If Platelet starts to stabilize then ca Start heparin.
Anticipated Discharge: > 48 hours
Subjective/Interval History
-
Date of Service: September 27, 2024
states already had 3 loose bm today so far
denies abd pain
Objective Data
-
Labs:
Laboratory Results
09/27/24
07:59
WBC 4.9
Hgb 7.3 L
Hct 21.4 L
Plt Count 40 L
Sodium 135
Potassium 3.7
Chloride 105
Carbon Dioxide 21 L
BUN 35 H
Creatinine 1.0
Glucose 86
Calcium 7.8 L
Total Bilirubin 1.6 H D
AST 25
ALT 14
Alkaline Phosphatase 68
Vital Signs:
Vital Signs
Temp Pulse Resp BP Pulse Ox
98.9 F 96 22 110/51 93
09/27/24 11:47 09/27/24 11:47 09/27/24 11:47 09/27/24 11:47 09/27/24 11:47
I&O
09/26/24 09/27/24 09/28/24
06:59 06:59 06:59
Intake Total 440 / 440
Output Total 600 / 600
Balance -160 / -160
Physical Exam
-
General: Appears Chronically Ill
HEENT: Normocephalic, Atraumatic and Moist Mucous Membranes
Respiratory: Clear to Auscultation and Non Labored Respirations
Cardiac: Regular Rhythm and S1/S2
GI: Nontender, Normal Bowel Sounds and Distended
Musculoskeletal: No Clubbing, No Cyanosis, Edema, Right Lower Extrem and Edema, Left Lower Extrem
Skin: Warm, Dry, Jaundice and Other (bruising right abdomen from prior paracentesis )
Neuro: Awake and AO x 3
Psych: Calm
Data Reviewed
-
Total Time Spent with Patient (in minutes): 58
--- NOTE | 2024-09-27 12:16 | CM ---
Pt seen bedside w/ spouse. Pt lives w/ spouse and adult daughter in a 2STH-1 step to enter. Per spouse, their daughter recently moved in w/ them to assist in the home.
Prev independent w/ cane. Pt has a shower chair, rails and grab bars in the home for additional support.
Prev. was at [facility] for SNF
Had [facility] in the past
Address, point of contact and insurance verified
PCP: Dr. Drake Goss
Pharmacy: [facility]
Denies financial insecurities
Per spouse, either she or someone will transport pt at d/c.
Plan: Home; no needs anticipated
--- NOTE | 2024-09-27 14:30 | CON.ID ---
Consultation
-
Date/Time Consultation Requested: 09/27/2024 1213
Date/Time Consultation Performed: 09/27/2024 1410
Requesting Provider: Dr. Schroeder
Performing Provider: Dr. Muse
Reason for Consultation: Bacteremia
Chief Complaint / Past History
History of Present Illness
Cortez Mazariegos is a 59-year-old male being evaluated at the request of Dr. Schroeder in regards to E. coli bacteremia. History is obtained from chart review, along with patient interview.
The patient has a significant past medical history of cirrhosis, along with hepatic encephalopathy. He has had several recent admissions to [facility], including 1 from 09/08 through 09/09 for an upper GI bleed that required transfer to the
[facility] for cauterization of right gastric artery.
He returned to [facility] on 09/20 for rectal bleeding. He was admitted through 09/23, during which he received a transfusion.
He returned on 09/26 secondary to change in mental status. According to history he was reported to be more agitated at home, including with his grandchildren and he kicked the dog. In the ER he was found to be febrile. Empiric antibiotics were
started, and blood cultures obtained at that time have now revealed the presence of E. coli, suspected to be ESBL by PCR testing. Infectious Diseases is asked to comment upon further antimicrobial therapy.
At this time he denies any fevers or chills. He notes ongoing abdominal pain and discomfort, but no change from his baseline. He denies any nausea or vomiting. He notes no diarrhea at present, but stool is soft.
Past History
Additional Past Medical History:
Cirrhosis
Upper GI bleed
COPD
Recurrent SBP
Hepatic encephalopathy
Hx of CVA
Allergy History:
No Known Allergies Allergy (Verified 09/26/24 09:47)
Medications Reviewed: Yes
Current Antibiotics:
Ertapenem
Social History
Tobacco: Smoker
Alcohol: Former
Drug: None
Personal:
Living: With Family
Employment: Employed
Family History
Family History: Not Pertinent
Review of Systems
Vital Signs
Temp Pulse Resp BP Pulse Ox
98.9 F 96 22 110/51 93
09/27/24 11:47 09/27/24 11:47 09/27/24 11:47 09/27/24 11:47 09/27/24 11:47
Physical Exam
Physical Exam
Constitutional: No Acute Distress, Chronically Ill and Non-toxic
Head: Normocephalic
Eyes: Pupils Equal, Pupils Round, No Conjunctival Hemorrhage and Sclera Anicteric
Oral: No Thrush and No Ulcers
Cardiovascular: Regular Rate and S1/S2; Negative S3/S4
Pulmonary: Clear; Negative Wheezes, Rales or Rhonchi
Gastrointestinal: Soft, Distended, Normal Bowel Sounds, No Rebound and Other (Ecchymotic area noted on right lower quadrant)
Extremities: Edema (3+); Negative Cyanosis or Erythema
Neurological: Awake and Alert
Psychological: Calm
Lab / Diagnostic Study Results
09/27/24 07:59
Abs Immat Gran (auto) 0.0 10^3/uL (0-0.05) 09/27/24 07:59
Absolute Neuts (auto) 3.6 10^3/uL (1.4-6.5) 09/27/24 07:59
Absolute Lymphs (auto) 0.6 10^3/uL (1.2-3.4) L 09/27/24 07:59
Absolute Monos (auto) 0.4 10^3/uL (0.1-0.6) 09/27/24 07:59
Absolute Basos (auto) 0.0 10^3/uL (0-0.2) 09/27/24 07:59
Immature Gran % 0.8 % (0-0.5) H 09/27/24 07:59
Neutrophils % 73.5 % (42.2-75.2) 09/27/24 07:59
Lymphocytes % 13.2 % (20.5-51.1) L 09/27/24 07:59
Monocytes % 7.2 % (1.7-9.3) 09/27/24 07:59
Eosinophils % 4.9 % (0-6) 09/27/24 07:59
Basophils % 0.4 % (0-2) 09/27/24 07:59
PT 20.3 Sec (11.4-14.6) H 09/26/24 11:28
INR 1.68 09/26/24 11:28
Lactic Acid 1.6 mmol/L (0.7-2.0) 09/26/24 15:31
Ur Squamous Epith Cells >30 /LPF (Few) 09/26/24 23:05
Microbiology Results
Micro:
09/26/24 11:57 Body Fluid Culture - Preliminary
Peritoneal Fluid No Growth After 18-24 Hours
Gram Stain - Preliminary
09/26/24 11:10 Blood Culture - Preliminary
Blood/Venous Escherichia coli
Gram Stain - Preliminary
09/26/24 10:42 Blood Culture - Preliminary
Blood/Venous No Growth in 24 hours- Final report to follow
09/26/24 23:05 Urine Culture - Pending
Urine
Laboratory Tests
09/26/24
11:57
Fluid WBC 2604
Fluid Mononuclear Cell 21.2
Fl Polymorphonucl Cell 78.8
Fluid Total Protein < 2.0
Fluid Albumin < 1.0
Fluid LDH < 90
Imaging:
09/26/2024 CT abdomen/pelvis with IV contrast: There is mild wall thickening of the distal esophagus suggesting esophagitis. Subtle liver surface nodularity consistent with history of cirrhosis. There is evidence of portal hypertension with
splenomegaly and extensive portosystemic venous collaterals. Mild ascites is noted. Minor diverticulosis without acute diverticulitis. A nonobstructing 8 mm left ureteropelvic junction calculus is noted and similar to prior examinations. Please
see full dictation for additional detail. Film personally viewed.
Assessment / Plan
E. coli bacteremia
SBP
Encephalopathy; likely hepatic related
Thrombocytopenia.
Anemia
Elevated ammonia level
Cirrhosis (Hep C vs. EtOH)
Hx Upper GI bleed
COPD
Hepatic encephalopathy
Recommendations:
Agree with transition of antibiotics to ertapenem to cover presumed ESBL E. coli.
Await final culture data to guide further antimicrobial selection and potential de-escalation.
Monitor white count and temperature curve.
Repeat paracentesis in several days to assess SBP treatment.
[2024-09-27] MEDS: INVANZ 60 MG IV (15:10)
[2024-09-27] MEDS: ATARAX 25 MG PO ×2 (15:10→21:05)
[2024-09-27 16:12] LABS: Hematocrit 21.4 % (39.0-52.0); Hemoglobin 7.1 g/dL (13.0-18.0)
--- NOTE | 2024-09-27 16:30 | PTCARENOTE ---
[address] Schroeder HGB 7.1, no further orders at this time, continue to monitor pt closely.
[2024-09-27] MEDS: ANESTHETIC LOZENGE 1 LOZENGE PO (22:35)
[2024-09-28] MEDS: ANESTHETIC LOZENGE 1 LOZENGE PO ×2 (03:10→11:28)
[2024-09-28 03:20] VITALS: BP 110/57
[2024-09-28 07:05] VITALS: BP 98/45
[2024-09-28] MEDS: SPIRIVA RESPIMAT 2.5 MCG INH (07:46)
[2024-09-28] MEDS: SYMBICORT 160/4.5 MCG INHALER INH ×2 (07:46→19:59)
[2024-09-28] MEDS: NSS (PRESERVATIVE FREE) 10 ML IV ×2 (07:54→20:12)
[2024-09-28] MEDS: PREPARATION H OINTMENT 1 APPLIC RECTAL ×2 (07:54→20:12)
[2024-09-28] MEDS: DUPHALAC/CHRONULAC 20 GRAMS PO ×2 (07:54→15:20)
[2024-09-28] MEDS: MAG-TAB SR 84 MG PO ×2 (07:55→20:11)
[2024-09-28] MEDS: VITAMIN B1 100 MG PO (07:55)
[2024-09-28] MEDS: PROTONIX IV 40 MG IV ×2 (07:55→20:12)
[2024-09-28] MEDS: FEOSOL 325 MG PO (07:55)
[2024-09-28] MEDS: XIFAXAN 550 MG PO ×2 (07:55→20:11)
[2024-09-28] MEDS: DESENEX/MITRAZOL/ZEASORB 1 APPLIC TOPICAL ×2 (07:57→20:12)
[2024-09-28] MEDS: ULTRAM 50 MG PO ×2 (08:05→20:18)
[2024-09-28] MEDS: ATARAX 25 MG PO ×2 (08:05→20:18)
[2024-09-28 08:13] LABS: INR 1.69; PT 20.1 Sec (11.4-14.6)
[2024-09-28 08:27] LABS: % Basophils 0.5 % (0-2); % Eosinophils 7.8 % (0-6); % Immature Granulocytes 1.3 % (0-0.5); % Lymphocytes 16.1 % (20.5-51.1); % Monocytes 6.8 % (1.7-9.3); % Neutrophils 67.5 % (42.2-75.2); Absolute Eosinophils 0.3 10^3/uL (0-0.7); Absolute Immature Granulocytes 0.1 10^3/uL (0-0.05); Absolute Lymphocytes 0.6 10^3/uL (1.2-3.4); Absolute Monocytes 0.3 10^3/uL (0.1-0.6); Absolute Neutrophils 2.7 10^3/uL (1.4-6.5); Hematocrit 21.5 % (39.0-52.0); Hemoglobin 7.3 g/dL (13.0-18.0); Mean Corpuscular Hgb 32.9 pg (27.0-31.0); Mean Corpuscular Volume 96.8 fL (80.0-94.0); Mean Platelet Volume 10.7 fL (7.4-10.4); Nucleated Red Blood Cells % 0 % (-); Platelet Count 47 10^3/uL (130-400); Red Blood Cell Count 2.22 10^6/uL (4.70-6.10); Red Cell Dist. Width 17.6 % (11.5-14.5)
[2024-09-28 08:38] LABS: ALT (SGPT) 14 U/L (0-50); AST (SGOT) 28 U/L (17-59); Albumin 2.5 g/dl (3.5-5.0); Alkaline Phosphatase 89 U/L (38-126); Blood Urea Nitrogen 27 mg/dl (9-20); Calcium 7.4 mg/dl (8.4-10.2); Carbon Dioxide 22 mmol/L (22-30); Chloride 106 mmol/L (98-107); Estimated Creatinine Clearance 100 ml/min; Glucose 81 mg/dl (70-99); Potassium 3.9 mmol/L (3.5-5.1); Sodium 135 mmol/L (135-145); Total Bilirubin 1.8 mg/dl (0.2-1.3); Total Protein 4.5 g/dl (6.3-8.2); eGFR > 60.00
--- NOTE | 2024-09-28 11:02 | PN.CDI ---
CDI
- -
CDI:
Physician Documentation Request
Admit Date: 09/26/24 15:40
Dear Doctor Alexandre,
Clinical Indicators:
Patient admitted with altered mental status.
09/26 H & P, 'Recurrent hepatic encephalopathy'
09/27 PN, 'Toxic metabolic encephalopathy secondary to decompensated liver cirrhosis/hepatic encephalopathy'
Lactulose, Xifaxan ordered.
Ammonia level
09/26/24
11:10
Ammonia 48 H
Pleases clarify which of the following accurately represents the acuity of the hepatic encephalopathy. Possible options might include:
Acute on Chronic hepatic encephalopathy
Acute hepatic encephalopathy
Chronic hepatic encephalopathy only
Other
Use of terms such as suspected, likely, concern for, or probable (associated with a specific diagnosis that is being evaluated, monitored, or treated as if it exists) are acceptable and can be coded in the inpatient setting, when documented at the
time of discharge.
Thank you,
Doreen Stokes RN BSN
CDI Specialist
available via tiger text
Please use your independent medical judgment in providing your response.
[2024-09-28 11:20] LABS: COVID-19 Antigen Positive (Negative)
[2024-09-28 11:38] VITALS: BP 127/61
--- NOTE | 2024-09-28 11:41 | W.PN.GI.CBS2 ---
Addendum entered and electronically signed by Charlotte Ruth Do, MD 09/28/24 17:36:
The DIGITAL PRODUCTION MANAGER's note was reviewed and I agree with the note.
Comment: Cortez is tolerating diet. Denies N/V or abd pain. Vitals stable. Exam with fluid wave. AAOx3 without confusion. Labs reviewed repeat paracentesis with 50mL removed. Fluid culture pending repeat BC thus far NGTD. Cell culture now
with <250 PMN
Impression
- ETOH cirrhosis
+ SBP
- Bacteremia
- COVID +
- H/o HCV
Recommendations
- IV albumin at 1g/kg today
- Repeat paracentesis today with significant improvement in PMN
- Repeat BC thus far negative
- C/w abx per ID
- Case d/w transplant hepatology at [facility]/Dr Dan. Not candidate at present given + PETH (alcohol metabolite in past) and needs to complete ETOH rehab
- C/w diet
Will follow with you
Original Note:
Today's Communication / Plan
-
As per plan
Assessment / Plan
-
59 y.o male with past medical history significant for decompensated cirrhosis (HCV vs EtOH) with intractable ascites with weekly para, HE, GI bleeding well-known to our group which has been complicated by recurrent hospitalizations with HE
secondary to acute on chronic GI bleeding 2/2 PHG gastric varix, hx of prior post-polypectomy bleed requiring Ovesco clips , chronic HCV (s/p treatment with Epclusa s/p SVR), CVA, HTN, COPD, and chronic thrombocytopenia admitted at this time with
altered mental status. Status post paracentesis on 09/26/2024 with 4700 cc removed. Patient is currently being evaluated for liver transplantation by Dr. Dan-[facility] hepatology. Discussed with Dr. Dan. At present time continue
supportive care. No role for transfer to [facility]. Patient had mildly elevated Peth in the past. Patient would need at least 1 negative path and reevaluation. Discussed with patient.
paracentesis 09/26/2024 with removal of 4700 cc of clear yellow ascitic fluid. Fluid analysis suggestive of SBP
CT abdomen/pelvis with IV contrast only 09/26
Mild wall thickening of esophagus
Subtle liver surface nodularity consistent with liver cirrhosis. Evidence of portal hypertension
No bowel obstruction
Right inguinal hernia containing fluid extending into the superior right scrotum. Similar to prior examination
Ascitic fluid
WBC 2604. Polymorphs 78.8%. Total protein less than 2, albumin less than 1, fluid LDH less than
Blood culture 09/26/2024 (1 bottle of 2) positive for ESBL/E. coli.--> On ertapenem. Repeat blood culture pending
Urine culture --> Enterococcus species
Ascitic fluid culture preliminary no growth after 24 hours
-- Decompensated liver cirrhosis - MELD - Na ( ) 22, MELD 3.0 09/28/24 = 17
-- SBP. Blood culture positive for ESBL/E. coli. Fluid culture no growth preliminary.
-- Altered mental status -possible etiology hepatic encephalopathy versus medication induced. Currently resolved
-- Chronic anemia. No overt GI bleeding at present. Hemoglobin stable 7.3
Plan:
Repeat paracentesis today. Discussed with interventional radiology, send fluid.
Albumin 1 g/kg, order already placed.
Continue IV antibiotics as per medical team.
COVID-positive-> discussed with internal medicine, will speak to infectious disease
Continue lactulose-titrate to 3-4 BMs per day. Also continue rifaximin
Avoid opioids
Daily MELD labs
2 g sodium diet
Daily weight
Will hold off on diuretics with SBP
Patient to follow-up with [facility] liver transplantation team -appointment 10/11--> discussed with Dr. Dan personally and updated him with patient status. No plans for transfer at this time.
Subjective
Subjective
Date of Service: September 28, 2024
Patient denies any current complaints. No signs of encephalopathy. Eating and drinking well. No abd pain. Had 2 brown BMs overnight. No signs of bleeding. Hgb stable 7.3. Patient with Tmax 100.0 overnight at 3 AM. Continues on ertapenem for ESBL
E. coli bacteremia. Repeat blood cultures pending. Chest x-ray 09/26/2024 with left lower lobe pneumonia. COVID swab positive today. Urine culture positive for Enterococcus species. Due for repeat paracentesis today will also need albumin 1
g/kg for SBP.
Objective
Data Reviewed
Laboratory Data:
Laboratory Results
09/28/24 07:16
09/28/24 07:16
Laboratory Results
PT 20.1 Sec (11.4-14.6) H 09/28/24 07:16
INR 1.69 09/28/24 07:16
APTT 40.4 Sec (23.4-35.0) H 09/26/24 11:28
Total Bilirubin 1.8 mg/dl (0.2-1.3) H 09/28/24 07:16
AST 28 U/L (17-59) 09/28/24 07:16
ALT 14 U/L (0-50) 09/28/24 07:16
Alkaline Phosphatase 89 U/L (38-126) 09/28/24 07:16
Lipase 148 U/L (23-300) 09/26/24 11:10
Vital Signs and I&O:
Vital Signs
Temp Pulse Resp BP Pulse Ox
98.3 F 92 20 127/61 97
09/28/24 11:38 09/28/24 11:38 09/28/24 11:38 09/28/24 11:38 09/28/24 11:38
I&O
09/27/24 09/28/24 09/29/24
06:59 06:59 06:59
Intake Total 440 / 440 400 / 400
Output Total 600 / 600
Balance -160 / -160 400 / 400
Physical Exam
Physical Exam
HEENT: Anicteric
Cardiology: Normal Sinus Rhythm
Pulmonary: Clear
GI: Soft, Distended, Non Tender and Normal Bowel Sounds
Extremities: Edema (+1 edema bilateral lower extremities)
Neuro: Non Focal and Other (No asterixis)
--- NOTE | 2024-09-28 12:04 | PTCARENOTE ---
IRAD note: Paracentesis done at bedside to r/o SBP. patient identified. allergies verified. Abdominal Ultrasound done by Bren VELEZ. site marked on LLQ. site cleaned and prepped. local given. Aspirated 50ml clear yellow fluid. band aid to site.
Tolerated procedure well. sample sent to lab per order.
--- NOTE | 2024-09-28 12:39 | CM ---
CM reviewed chart, patient seen bedside, no needs at this time. Gastroenterology following. Patient Covid positive. CM will continue to follow for all discharge planning needs.
Plan; home with family when stable.
--- NOTE | 2024-09-28 12:39 | W.PN.HOSP.TC ---
Today's Communication/Plan
-
COVID +
ID recs
Cont IV abx
dx para today
albumin
hold diuretics
oob/pt
trend cbc
Assessment / Plan
Assessment / Plan
# Toxic metabolic encephalopathy secondary to decompensated liver cirrhosis/acute hepatic encephalopathy
#Decompensated liver cirrhosis
-Ammonia 48 decreased from 67 previous.No need to trend.
-Continue lactulose, Xifaxan
-Uptitrate lactulose if needed. Goal 3-4 loose bowel movements daily. Mentation seems to be improving significantly.
-Patient normally receives paracentesis every Tuesday
-IR drained 4.7 L
-Will require albumin 1 mg/kg -Plan for repeat diagnostic repeat paracentesis today. Albumin already ordered.
# Fever likely 2/2 secondary to SBP and ESBL bacteremia and COVID and enterococcus UTI
# Lactic acidosis resolved
-Fever 100.4
-Blood cultures with ESBL.
-Ceftriaxone discontinued and started on ertapenem
-Fluid culture negative for growth so far. Preliminary
-await surveillance blood cultures
-Plan for repeat diagnostic repeat paracentesis today. Albumin already ordered.
-May benefit from paxlovoid? Await ID recs.
-Infectious disease consulted. May require prophylactic SBP antibiotics on discharge.
# Recurrent upper GI bleeding likely secondary to portal hypertensive gastropathy
# History of gastric varices status post gastric artery coiling 09/2024
# Chronic macrocytic anemia secondary to liver disease
-Thought to be secondary to portal hypertensive gastropathy on recent EGD 2 admissions prior
-Transfuse for hemoglobin less than 7. Currently at 7.3.
-tolerating diet
-Protonix 40 IV twice daily
-GI consulted
# Chronic severe thrombocytopenia secondary to liver disease
-Platelets of 40
#Hyponatremia
-resolved.
Hepatitis C status post treatment with Epclusa
History of colon polyps with polyp removal
History of hemorrhoids
Portal hypertension
Chronic pain
Essential hypertension
GERD
History of skin cancer status post Mohs surgery
Anxiety
COPD
Full code
DVT prophylaxis�SCDs in the setting of thrombocytopenia. If Platelet starts to stabilize then ca Start heparin.
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
d/w with Gi
Anticipated Discharge: > 48 hours
Subjective/Interval History
-
Date of Service: September 28, 2024
resting in bed comfortably
States feeling better
no cob or cough
Objective Data
-
Labs:
Laboratory Results
09/28/24
07:16
WBC 4.0 L
Hgb 7.3 L
Hct 21.5 L
Plt Count 47 L
PT 20.1 H
INR 1.69
Sodium 135
Potassium 3.9
Chloride 106
Carbon Dioxide 22
BUN 27 H
Creatinine 0.8
Glucose 81
Calcium 7.4 L
Total Bilirubin 1.8 H
AST 28
ALT 14
Alkaline Phosphatase 89
Vital Signs:
Vital Signs
Temp Pulse Resp BP Pulse Ox
98.3 F 92 20 127/61 97
09/28/24 11:38 09/28/24 11:38 09/28/24 11:38 09/28/24 11:38 09/28/24 11:38
I&O
09/27/24 09/28/24 09/29/24
06:59 06:59 06:59
Intake Total 440 / 440 400 / 400
Output Total 600 / 600
Balance -160 / -160 400 / 400
Physical Exam
-
General: Appears Chronically Ill
HEENT: Normocephalic, Atraumatic and Moist Mucous Membranes
Respiratory: Clear to Auscultation and Non Labored Respirations
Cardiac: Regular Rhythm and S1/S2
GI: Nontender, Normal Bowel Sounds and Distended
Musculoskeletal: No Clubbing, No Cyanosis, Edema, Right Lower Extrem and Edema, Left Lower Extrem
Skin: Warm, Dry, Jaundice and Other (bruising right abdomen from prior paracentesis )
Neuro: Awake and AO x 3
Psych: Calm
Data Reviewed
-
Total Time Spent with Patient (in minutes): 55
[2024-09-28] MEDS: FLEXBUMIN 50 IV (13:13)
[2024-09-28 13:22] LABS: Body Fluid Polymorphonuclear 35.7 %; Body Fluid WBC 624 /CUMM
[2024-09-28 13:23] LABS: Body Fluid Mononuclear 64.3 %
[2024-09-28 13:24] LABS: Body Fluid Second Tech CMB
[2024-09-28 13:28] LABS: Body Fluid Albumin < 1.0 g/dl; Body Fluid Amylase < 30 U/L; Body Fluid LDH < 90 U/L; Body Fluid Protein < 2.0 g/dl
[2024-09-28] MEDS: FLEXBUMIN 100 IV ×3 (13:30→17:42)
[2024-09-28] MEDS: INVANZ 60 MG IV (15:07)
[2024-09-28 15:45] VITALS: BP 120/62
--- NOTE | 2024-09-28 16:36 | W.PN.ID1 ---
Date of Service
Date of Service: September 28, 2024
Today's Communication
Continue antibiotics.
Assessment / Plan
E. coli bacteremia
SBP
Encephalopathy; likely hepatic related
- improved
Thrombocytopenia.
Anemia
Elevated ammonia level
Cirrhosis (Hep C vs. EtOH)
Hx Upper GI bleed
COPD
Hepatic encephalopathy
Recommendations:
Continue ertapenem.
Await final culture data to guide further antimicrobial selection and potential de-escalation.
At present, no symptomatology of COVID-19 (no fever, no cough, no shortness of breath, no congestion). Can hold on antivirals for now.
Monitor white count and temperature curve.
Repeat paracentesis results pending.
Chief Complaint
-: Other (COVID-19; SBP)
Subjective / Review of Systems
Patient seen and examined. Underwent paracentesis today. No fevers, chills. No shortness of breath or cough.
Review of Systems: No Fever and No Chills
Vital Signs / Physical Exam
Vital Signs
Vital Signs
Temp Pulse Resp BP Pulse Ox
99.0 F 94 20 120/62 100
09/28/24 15:45 09/28/24 15:45 09/28/24 15:45 09/28/24 15:45 09/28/24 15:45
Physical Exam
Constitutional: No Acute Distress, Comfortable, Chronically Ill and Non-toxic
Eyes: Sclera Anicteric
Cardiovascular: S1/S2; Negative S3/S4
Pulmonary: Clear; Negative Wheezes or Rales
Gastrointestinal: Soft, Non Tender, Distended and Normal Bowel Sounds
Extremities: Edema
Neurological: Awake and Alert
Objective Data
Lab Data
Lab Results
09/28/24 07:16
09/28/24 07:16
PT 20.1 Sec (11.4-14.6) H 09/28/24 07:16
INR 1.69 09/28/24 07:16
APTT 40.4 Sec (23.4-35.0) H 09/26/24 11:28
Estimated Creat Clear 100 ml/min 09/28/24 07:16
Lactic Acid 1.6 mmol/L (0.7-2.0) 09/26/24 15:31
Total Bilirubin 1.8 mg/dl (0.2-1.3) H 09/28/24 07:16
AST 28 U/L (17-59) 09/28/24 07:16
ALT 14 U/L (0-50) 09/28/24 07:16
Alkaline Phosphatase 89 U/L (38-126) 09/28/24 07:16
Most recent labs reviewed.
Micro Results:
09/28/24 11:50 Body Fluid Culture - Pending
Peritoneal Fluid Gram Stain - Preliminary
09/26/24 11:57 Body Fluid Culture - Preliminary
Peritoneal Fluid Escherichia coli
Gram Stain - Preliminary
09/26/24 10:42 Blood Culture - Preliminary
Blood/Venous No Growth in 48 hours- Final report to follow
09/26/24 23:05 Urine Culture - Preliminary
Urine Enterococcus species
09/26/24 11:10 Blood Culture - Preliminary
Blood/Venous Escherichia coli - ESBL
Gram Stain - Final
09/27/24 17:43 Blood Culture - Pending
Blood/Venous
Imaging:
09/26/2024 CT abdomen/pelvis with IV contrast: There is mild wall thickening of the distal esophagus suggesting esophagitis. Subtle liver surface nodularity consistent with history of cirrhosis. There is evidence of portal hypertension with
splenomegaly and extensive portosystemic venous collaterals. Mild ascites is noted. Minor diverticulosis without acute diverticulitis. A nonobstructing 8 mm left ureteropelvic junction calculus is noted and similar to prior examinations. Please
see full dictation for additional detail. Film personally viewed.
[2024-09-28 19:16] VITALS: BP 120/70
[2024-09-28] MEDS: DUPHALAC/CHRONULAC PO (22:15)
[2024-09-28 23:16] VITALS: BP 117/56
[2024-09-29] VITALS (9 sets, daily range): BP systolic 104–120; BP diastolic 49–60; BMI 26.1
[2024-09-29 07:30] LABS: INR 1.87; PT 21.6 Sec (11.4-14.6)
[2024-09-29 08:08] LABS: ALT (SGPT) 15 U/L (0-50); AST (SGOT) 32 U/L (17-59); Albumin 2.9 g/dl (3.5-5.0); Alkaline Phosphatase 76 U/L (38-126); Blood Urea Nitrogen 22 mg/dl (9-20); Calcium 7.6 mg/dl (8.4-10.2); Carbon Dioxide 23 mmol/L (22-30); Chloride 106 mmol/L (98-107); Direct Bilirubin 0.5 mg/dl (0.0-0.4); Estimated Creatinine Clearance 100 ml/min; Glucose 90 mg/dl (70-99); Potassium 3.9 mmol/L (3.5-5.1); Sodium 135 mmol/L (135-145); Total Bilirubin 1.9 mg/dl (0.2-1.3); Total Protein 4.8 g/dl (6.3-8.2); eGFR > 60.00
[2024-09-29] MEDS: SPIRIVA RESPIMAT 2.5 MCG INH (08:15)
[2024-09-29] MEDS: SYMBICORT 160/4.5 MCG INHALER INH ×2 (08:16→18:31)
[2024-09-29 08:23] LABS: % Basophils 0.4 % (0-2); % Eosinophils 8.6 % (0-6); % Immature Granulocytes 0.7 % (0-0.5); % Lymphocytes 17.8 % (20.5-51.1); % Monocytes 7.8 % (1.7-9.3); % Neutrophils 64.7 % (42.2-75.2); Absolute Eosinophils 0.2 10^3/uL (0-0.7); Absolute Lymphocytes 0.5 10^3/uL (1.2-3.4); Absolute Monocytes 0.2 10^3/uL (0.1-0.6); Absolute Neutrophils 1.7 10^3/uL (1.4-6.5); Hematocrit 20.9 % (39.0-52.0); Mean Corp Hgb Conc. 33.5 g/dL (33.0-37.0); Mean Corpuscular Volume 98.6 fL (80.0-94.0); Mean Platelet Volume 10.8 fL (7.4-10.4); Nucleated Red Blood Cells % 0 % (-); Platelet Count 45 10^3/uL (130-400); Red Blood Cell Count 2.12 10^6/uL (4.70-6.10); Red Cell Dist. Width 17.4 % (11.5-14.5); White Blood Cell Count 2.7 10^3/uL (4.8-10.8)
--- NOTE | 2024-09-29 08:38 | PTCARENOTE ---
Lab notified this RN of critical Hct. Dr. Schroeedr aware.
[2024-09-29] MEDS: DESENEX/MITRAZOL/ZEASORB 1 APPLIC TOPICAL ×2 (08:45→20:06)
[2024-09-29] MEDS: PROTONIX IV 40 MG IV ×2 (08:45→20:02)
[2024-09-29] MEDS: FEOSOL 325 MG PO (08:45)
[2024-09-29] MEDS: XIFAXAN 550 MG PO ×2 (08:45→20:03)
[2024-09-29] MEDS: PREPARATION H OINTMENT 1 APPLIC RECTAL ×2 (08:45→20:06)
[2024-09-29] MEDS: MAG-TAB SR 84 MG PO ×2 (08:45→20:03)
[2024-09-29] MEDS: DUPHALAC/CHRONULAC 20 GRAMS PO (08:45)
[2024-09-29] MEDS: NSS (PRESERVATIVE FREE) 10 ML IV ×2 (08:45→20:03)
[2024-09-29] MEDS: VITAMIN B1 100 MG PO (08:46)
[2024-09-29] MEDS: ULTRAM 50 MG PO ×2 (09:02→20:03)
[2024-09-29] MEDS: ATARAX 25 MG PO ×2 (09:02→20:03)
--- NOTE | 2024-09-29 10:45 | W.PN.HOSP.TC ---
Today's Communication/Plan
-
transfuse prbc
IV abx
COVID precautions
Assessment / Plan
Assessment / Plan
#Toxic metabolic encephalopathy secondary to decompensated liver cirrhosis/acute hepatic encephalopathy
#Decompensated liver cirrhosis likely 2/2 Etoh vs. ?hep C
-Ammonia 48 decreased from 67 previous.No need to trend.
-Continue lactulose, Xifaxan
-Uptitrate lactulose if needed. Goal 3-4 loose bowel movements daily. Mentation seems to be improving significantly.
-Patient normally receives paracentesis every Tuesday
-IR drained 4.7 L
-Status post albumin on day 1 and day 3. Repeat diagnostic paracentesis significant improvement for PMN.
-Await repeat paracentesis fluid culture results.
-Per GI discussion with transplant team at [facility] patient with positive PETH test suspecting of alcohol usage?
# Fever likely 2/2 secondary to SBP and ESBL bacteremia and COVID and enterococcus UTI
# Lactic acidosis resolved
-Fever 100.4
-Blood cultures with ESBL and peritonel fluid culture also +ESBL
-Ceftriaxone discontinued and started on ertapenem
-await surveillance blood cultures and those are negative so far
-Plan for repeat diagnostic repeat paracentesis today. Albumin already ordered.
-no plan to start anti-viral per ID
-Susceptibility results of ESBL noted.
-Infectious disease consulted. May require prophylactic SBP antibiotics on discharge.
# Recurrent upper GI bleeding likely secondary to portal hypertensive gastropathy
# History of gastric varices status post gastric artery coiling 09/2024
# Chronic macrocytic anemia secondary to liver disease
-Thought to be secondary to portal hypertensive gastropathy on recent EGD 2 admissions prior
-Hemoglobin at 7 and will transfuse 1 unit of PRBC today.
-tolerating diet
-Protonix 40 IV twice daily
-GI consulted
# Chronic severe thrombocytopenia secondary to liver disease
-Platelets of 45
#Hyponatremia
-resolved.
Hepatitis C status post treatment with Epclusa
History of colon polyps with polyp removal
History of hemorrhoids
Portal hypertension
Chronic pain
Essential hypertension
GERD
History of skin cancer status post Mohs surgery
Anxiety
COPD
Full code
DVT prophylaxis�SCDs in the setting of thrombocytopenia. If Platelet starts to stabilize then ca Start heparin.
PT/OT-Home VN.
d/w with Gi
Anticipated Discharge: > 48 hours
Subjective/Interval History
-
Date of Service: September 29, 2024
states feeling tired this morning
had 3 loose bm already
Objective Data
-
Labs:
Laboratory Results
09/29/24
06:49
WBC 2.7 L
Hgb 7.0 L
Hct 20.9 L*
Plt Count 45 L
PT 21.6 H
INR 1.87
Sodium 135
Potassium 3.9
Chloride 106
Carbon Dioxide 23
BUN 22 H
Creatinine 0.8
Glucose 90
Calcium 7.6 L
Total Bilirubin 1.9 H
AST 32
ALT 15
Alkaline Phosphatase 76
Vital Signs:
Vital Signs
Temp Pulse Resp BP Pulse Ox
98.7 F 90 20 113/59 94
09/29/24 07:33 09/29/24 07:33 09/29/24 07:33 09/29/24 07:33 09/29/24 07:33
I&O
09/28/24 09/29/24 09/30/24
06:59 06:59 06:59
Intake Total 400 / 400 1789 / 1789
Balance 400 / 400 1789
Physical Exam
-
General: Appears Chronically Ill
HEENT: Normocephalic, Atraumatic and Moist Mucous Membranes
Respiratory: Clear to Auscultation and Non Labored Respirations
Cardiac: Regular Rhythm and S1/S2
GI: Nontender, Normal Bowel Sounds and Distended
Musculoskeletal: No Clubbing, No Cyanosis, Edema, Right Lower Extrem and Edema, Left Lower Extrem
Skin: Warm, Dry, Jaundice and Other (bruising right abdomen from prior paracentesis )
Neuro: Awake and No Motor Deficits
Psych: Calm
Data Reviewed
-
Total Time Spent with Patient (in minutes): 52
[2024-09-29] MEDS: DUPHALAC/CHRONULAC PO ×2 (13:17→20:30)
--- NOTE | 2024-09-29 13:22 | W.PN.GI.CBS2 ---
Today's Communication / Plan
-
Appears to be clearing bactermia and SBP--c/w abx
Needs lifelong suppressive abx for SBP. Defer to ID's recommendations given h/o ESBL organisms
Close FU with Dr Dan transplant hepatology 10/11
GI will sign off please call for ?
Assessment / Plan
-
Christophe is a 59 y.o male with past medical history significant for decompensated cirrhosis (HCV vs EtOH) with intractable ascites with weekly para, HE, GI bleeding well-known to our group which has been complicated by recurrent hospitalizations with HE
secondary to acute on chronic GI bleeding 2/2 PHG gastric varix, hx of prior post-polypectomy bleed requiring Ovesco clips , chronic HCV (s/p treatment with Epclusa s/p SVR), CVA, HTN, COPD, and chronic thrombocytopenia admitted at this time with
altered mental status. Status post paracentesis on 09/26/2024 with 4700 cc removed. Patient is currently being evaluated for liver transplantation by Dr. Dan[facility] hepatology.
Impression
-- ESBL SBP with bacteremia
-- Enterococcus UTI
-- +COVID
-- H/o GIB from gastric varices coiled at [place] 09/2024
-- Decompensated ETOH cirrhosis
MELD 3.0 = 17 (09/29)
-- Hepatic encephalopathy
-- Chronic pancytopenia
Plan:
- Repeat paracentesis done 09/28 with neg cultures and cell count for SBP
- C/w abx per ID but will need life long suppressive agent. Generally bactrim/cipro is used but given h/o ESBL organism defer to ID
- Repeat blood cultures cleared as of 09/27
- Appreciate blood transfusion today but overall pancytopenia from active infections and splenic sequestration related to advance cirrhosis
- C/w lactulose, xifaximin and PPI
- Paracentesis PRN comfort. Not able to start diuretics until outpatient basis given SBP
- Discussed with patient that given +PETH (ETOH substrate) not candidate for transplant transfer on this admission
- He has FU with Dr Dan 10/11 will need a [facility] and outpatient rehab program.
At this juncture no new GI recs will sign off please call for questions
Subjective
Subjective
Date of Service: September 29, 2024
He denies SOB or cough. No abd pain, nausea or vomiting. He is tolerating diet
Objective
Data Reviewed
Laboratory Data:
Laboratory Results
09/29/24 06:49
09/29/24 06:49
Laboratory Results
PT 21.6 Sec (11.4-14.6) H 09/29/24 06:49
INR 1.87 09/29/24 06:49
APTT 40.4 Sec (23.4-35.0) H 09/26/24 11:28
Total Bilirubin 1.9 mg/dl (0.2-1.3) H 09/29/24 06:49
AST 32 U/L (17-59) 09/29/24 06:49
ALT 15 U/L (0-50) 09/29/24 06:49
Alkaline Phosphatase 76 U/L (38-126) 09/29/24 06:49
Lipase 148 U/L (23-300) 09/26/24 11:10
Vital Signs and I&O:
Vital Signs
Temp Pulse Resp BP Pulse Ox
98.9 F 90 20 109/51 96
09/29/24 13:04 09/29/24 13:04 09/29/24 13:04 09/29/24 13:04 09/29/24 13:04
I&O
09/28/24 09/29/24 09/30/24
06:59 06:59 06:59
Intake Total 400 / 400 1790 / 1790 0 / 0
Balance 400 / 400 1790 / 1790 0 / 0
Physical Exam
Physical Exam
GEN: No acute distress, conversant, pleasant slowed speech
HEENT: anicteric, extraocular movements intact, clear oropharynx without exudates
GI: soft, mildly -distended, obese not tender to palpation, normal active bowel sounds, no hepatosplenomegaly
EXT: warm, well perfused, 2+ edema bilaterally
NEURO: AAOx3, non-focal
--- NOTE | 2024-09-29 14:25 | W.PN.ID1 ---
Date of Service
Date of Service: September 29, 2024
Today's Communication
Continue antibiotics.
Assessment / Plan
E. coli bacteremia
SBP secondary to ESBL E. coli
Encephalopathy; likely hepatic related
- improved
Thrombocytopenia.
Anemia
Elevated ammonia level
Cirrhosis (Hep C vs. EtOH)
Hx Upper GI bleed
COPD
Hepatic encephalopathy
Recommendations:
Continue ertapenem to complete a 10-day course (given bacteremia)
GI note reviewed regarding SBP prophylaxis. Options are exceedingly limited given current susceptibilities. Doxycycline likely is the best option.
At present, no symptomatology of COVID-19 (no fever, no cough, no shortness of breath, no congestion). Can hold on antivirals for now.
Monitor white count and temperature curve.
Repeat paracentesis results show improvement.
Chief Complaint
-: Other (COVID-19; SBP)
Subjective / Review of Systems
Patient seen and examined.
Review of Systems: No Fever and No Chills
Vital Signs / Physical Exam
Vital Signs
Vital Signs
Temp Pulse Resp BP Pulse Ox
98.9 F 90 16 111/55 95
09/29/24 13:28 09/29/24 13:28 09/29/24 13:28 09/29/24 13:28 09/29/24 13:28
Physical Exam
Constitutional: No Acute Distress, Comfortable, Chronically Ill and Non-toxic
Eyes: Sclera Anicteric
Cardiovascular: S1/S2; Negative S3/S4
Pulmonary: Clear; Negative Wheezes or Rales
Gastrointestinal: Soft, Non Tender, Distended and Normal Bowel Sounds
Extremities: Edema
Neurological: Awake and Alert
Objective Data
Lab Data
Lab Results
09/29/24 06:49
09/29/24 06:49
PT 21.6 Sec (11.4-14.6) H 09/29/24 06:49
INR 1.87 09/29/24 06:49
APTT 40.4 Sec (23.4-35.0) H 09/26/24 11:28
Estimated Creat Clear 100 ml/min 09/29/24 06:49
Lactic Acid 1.6 mmol/L (0.7-2.0) 09/26/24 15:31
Total Bilirubin 1.9 mg/dl (0.2-1.3) H 09/29/24 06:49
AST 32 U/L (17-59) 09/29/24 06:49
ALT 15 U/L (0-50) 09/29/24 06:49
Alkaline Phosphatase 76 U/L (38-126) 09/29/24 06:49
Most recent labs reviewed.
Micro Results:
09/28/24 11:50 Body Fluid Culture - Preliminary
Peritoneal Fluid No Growth After 18-24 Hours
Gram Stain - Preliminary
09/26/24 23:05 Urine Culture - Final
Urine Enterococcus faecalis
09/26/24 10:42 Blood Culture - Preliminary
Blood/Venous No Growth in 72 hours- Final report to follow
09/26/24 11:57 Body Fluid Culture - Final
Peritoneal Fluid Escherichia coli - ESBL
Gram Stain - Final
09/26/24 11:10 Blood Culture - Final
Blood/Venous Escherichia coli - ESBL
Gram Stain - Final
09/27/24 17:43 Blood Culture - Preliminary
Blood/Venous No Growth in 24 hours- Final report to follow
Imaging:
09/26/2024 CT abdomen/pelvis with IV contrast: There is mild wall thickening of the distal esophagus suggesting esophagitis. Subtle liver surface nodularity consistent with history of cirrhosis. There is evidence of portal hypertension with
splenomegaly and extensive portosystemic venous collaterals. Mild ascites is noted. Minor diverticulosis without acute diverticulitis. A nonobstructing 8 mm left ureteropelvic junction calculus is noted and similar to prior examinations. Please
see full dictation for additional detail. Film personally viewed.
[2024-09-29] MEDS: INVANZ 60 MG IV (15:20)
[2024-09-30 03:00] VITALS: BP 122/56
[2024-09-30 07:00] VITALS: BMI 26.5
[2024-09-30 07:05] VITALS: BP 108/54
[2024-09-30] MEDS: SYMBICORT 160/4.5 MCG INHALER 2 PUFF INH ×2 (07:37→22:40)
[2024-09-30] MEDS: SPIRIVA RESPIMAT 2.5 MCG 2 PUFF INH (07:38)
[2024-09-30 07:41] LABS: INR 1.84; PT 21.4 Sec (11.4-14.6)
[2024-09-30 07:47] LABS: % Basophils 0.6 % (0-2); % Eosinophils 8.9 % (0-6); % Immature Granulocytes 0.9 % (0-0.5); % Lymphocytes 17.5 % (20.5-51.1); % Neutrophils 64.1 % (42.2-75.2); Absolute Eosinophils 0.3 10^3/uL (0-0.7); Absolute Lymphocytes 0.6 10^3/uL (1.2-3.4); Absolute Monocytes 0.3 10^3/uL (0.1-0.6); Absolute Neutrophils 2.2 10^3/uL (1.4-6.5); Hematocrit 23.9 % (39.0-52.0); Hemoglobin 8.1 g/dL (13.0-18.0); Mean Corp Hgb Conc. 33.9 g/dL (33.0-37.0); Mean Corpuscular Hgb 32.9 pg (27.0-31.0); Mean Corpuscular Volume 97.2 fL (80.0-94.0); Mean Platelet Volume 9.7 fL (7.4-10.4); Nucleated Red Blood Cells % 0 % (-); Platelet Count 46 10^3/uL (130-400); Red Blood Cell Count 2.46 10^6/uL (4.70-6.10); Red Cell Dist. Width 17.2 % (11.5-14.5); White Blood Cell Count 3.4 10^3/uL (4.8-10.8)
[2024-09-30 07:57] LABS: ALT (SGPT) 16 U/L (0-50); AST (SGOT) 35 U/L (17-59); Albumin 2.9 g/dl (3.5-5.0); Alkaline Phosphatase 94 U/L (38-126); Blood Urea Nitrogen 17 mg/dl (9-20); Calcium 7.7 mg/dl (8.4-10.2); Carbon Dioxide 24 mmol/L (22-30); Chloride 106 mmol/L (98-107); Estimated Creatinine Clearance 114 ml/min; Glucose 94 mg/dl (70-99); Potassium 3.9 mmol/L (3.5-5.1); Sodium 135 mmol/L (135-145); Total Bilirubin 2.4 mg/dl (0.2-1.3); Total Protein 4.8 g/dl (6.3-8.2); eGFR > 60.00
[2024-09-30] MEDS: FEOSOL 325 MG PO (08:57)
[2024-09-30] MEDS: MAG-TAB SR 84 MG PO ×2 (08:57→20:17)
[2024-09-30] MEDS: VITAMIN B1 100 MG PO (08:57)
[2024-09-30] MEDS: XIFAXAN 550 MG PO ×2 (08:58→20:17)
[2024-09-30] MEDS: DUPHALAC/CHRONULAC 20 GRAMS PO ×2 (08:58→14:49)
[2024-09-30] MEDS: PROTONIX IV 40 MG IV ×2 (08:58→20:17)
[2024-09-30] MEDS: NSS (PRESERVATIVE FREE) 10 ML IV ×2 (08:58→20:18)
[2024-09-30] MEDS: ULTRAM 50 MG PO ×2 (09:10→20:18)
[2024-09-30] MEDS: ATARAX 25 MG PO ×2 (09:10→20:18)
[2024-09-30] MEDS: DESENEX/MITRAZOL/ZEASORB 1 APPLIC TOPICAL ×2 (09:15→20:19)
[2024-09-30] MEDS: PREPARATION H OINTMENT 1 APPLIC RECTAL ×2 (09:16→20:21)
[2024-09-30 11:28] VITALS: BP 100/51
--- NOTE | 2024-09-30 12:08 | W.PN.HOSP.TC ---
Today's Communication/Plan
-
?midline
ID recs
IV ertapenem for now
PT eval
CM for IV abx
Assessment / Plan
Assessment / Plan
#Toxic metabolic encephalopathy secondary to decompensated liver cirrhosis/acute hepatic encephalopathy
#Decompensated liver cirrhosis likely 2/2 Etoh vs. ?hep C
-Ammonia 48 decreased from 67 previous.No need to trend.
-Continue lactulose, Xifaxan
-Uptitrate lactulose if needed. Goal 3-4 loose bowel movements daily. Mentation at baseline
-Patient normally receives paracentesis every Tuesday
-IR drained 4.7 L
-Status post albumin on day 1 and day 3. Repeat diagnostic paracentesis significant improvement for PMN.
-Await repeat paracentesis fluid culture results-neg so far .
-Per GI discussion with transplant team at [facility] patient with positive PETH test suspecting of alcohol usage? Patient and spouse had multiple question regards PETH testing. Recommended to discuss with her primary hepatology on next appointment
which is scheduled in early October.
# Fever likely 2/2 secondary to SBP and ESBL bacteremia and COVID and enterococcus UTI
# Lactic acidosis resolved
-Fever 100.4
-Blood cultures with ESBL and peritoneal fluid culture also +ESBL
-Ceftriaxone discontinued and started on ertapenem
-await surveillance blood cultures and those are negative so far
-Plan for repeat diagnostic repeat paracentesis today. Albumin already ordered.
-no plan to start anti-viral per ID
-Susceptibility results of ESBL noted.
-Probably will require midline placement and IV antibiotics on discharge. Await clearance from ID before line placement.
-Plan for doxycycline as SBP prophylaxis on discharge
-Infectious disease consulted.
# Recurrent upper GI bleeding likely secondary to portal hypertensive gastropathy
# History of gastric varices status post gastric artery coiling 09/2024
# Chronic macrocytic anemia secondary to liver disease
-Thought to be secondary to portal hypertensive gastropathy on recent EGD 2 admissions prior
-Hemoglobin at 7 and will transfuse 1 unit of PRBC. Hgb at 8.1
-tolerating diet
-Protonix 40 IV twice daily
-GI consulted
# Chronic severe thrombocytopenia secondary to liver disease
-Platelets of 46
#Hyponatremia
-resolved.
Hepatitis C status post treatment with Epclusa
History of colon polyps with polyp removal
History of hemorrhoids
Portal hypertension
Chronic pain
Essential hypertension
GERD
History of skin cancer status post Mohs surgery
Anxiety
COPD
Full code
DVT prophylaxis�SCDs in the setting of thrombocytopenia. If Platelet starts to stabilize then ca Start heparin.
PT/OT-Home VN.
Discussed with spouse over the phone in details
Anticipated Discharge: Within 24 hours
Subjective/Interval History
-
Date of Service: September 30, 2024
states already has 2 bm
feeling better after receiving prbc yesterday
remains afebrile and on room air
Objective Data
-
Labs:
Laboratory Results
09/30/24
07:19
WBC 3.4 L
Hgb 8.1 L
Hct 23.9 L
Plt Count 46 L
PT 21.4 H
INR 1.84
Sodium 135
Potassium 3.9
Chloride 106
Carbon Dioxide 24
BUN 17
Creatinine 0.7
Glucose 94
Calcium 7.7 L
Total Bilirubin 2.4 H
AST 35
ALT 16
Alkaline Phosphatase 94
Vital Signs:
Vital Signs
Temp Pulse Resp BP Pulse Ox
99.0 F 84 18 100/51 97
09/30/24 11:28 09/30/24 11:28 09/30/24 11:28 09/30/24 11:28 09/30/24 11:28
I&O
09/29/24 09/30/24 10/01/24
06:59 06:59 06:59
Intake Total 1789 / 1029
Balance 1789 / 1029
Physical Exam
-
General: Appears Chronically Ill
HEENT: Normocephalic, Atraumatic and Moist Mucous Membranes
Respiratory: Clear to Auscultation and Non Labored Respirations
Cardiac: Regular Rhythm and S1/S2
GI: Nontender, Normal Bowel Sounds and Distended
Musculoskeletal: No Clubbing, No Cyanosis, Edema, Right Lower Extrem and Edema, Left Lower Extrem
Skin: Warm, Dry, Jaundice and Other (bruising right abdomen from prior paracentesis )
Neuro: Awake and No Motor Deficits
Psych: Calm
Data Reviewed
-
Total Time Spent with Patient (in minutes): 52
[2024-09-30] MEDS: INVANZ 60 MG IV (13:43)
--- NOTE | 2024-09-30 14:46 | CM ---
CM reviewed chart, patient Covid positive. Per PT evaluation, no skilled PT need. Patient on IV antibiotics, watch for home IV antibiotic needs. CM will continue to follow for all discharge planning needs.
Plan; home with family, watch for IV antibiotic needs.
[2024-09-30 15:01] VITALS: BP 122/55
[2024-09-30] MEDS: SYMBICORT 160/4.5 MCG INHALER INH (19:57)
[2024-09-30 20:31] VITALS: BP 133/67
[2024-09-30] MEDS: DUPHALAC/CHRONULAC PO (22:25)
[2024-10-01 05:10] VITALS: BMI 27.0
[2024-10-01 07:58] VITALS: BP 105/57
[2024-10-01 08:20] LABS: INR 1.92; PT 22.1 Sec (11.4-14.6)
[2024-10-01 08:26] LABS: % Basophils 0.5 % (0-2); % Eosinophils 7.6 % (0-6); % Immature Granulocytes 0.5 % (0-0.5); % Monocytes 7.9 % (1.7-9.3); % Neutrophils 69.5 % (42.2-75.2); Absolute Eosinophils 0.3 10^3/uL (0-0.7); Absolute Lymphocytes 0.6 10^3/uL (1.2-3.4); Absolute Monocytes 0.3 10^3/uL (0.1-0.6); Absolute Neutrophils 2.9 10^3/uL (1.4-6.5); Hematocrit 23.7 % (39.0-52.0); Hemoglobin 7.8 g/dL (13.0-18.0); Mean Corp Hgb Conc. 32.9 g/dL (33.0-37.0); Mean Corpuscular Hgb 32.1 pg (27.0-31.0); Mean Corpuscular Volume 97.5 fL (80.0-94.0); Mean Platelet Volume 10.3 fL (7.4-10.4); Nucleated Red Blood Cells % 0 % (-); Platelet Count 54 10^3/uL (130-400); Red Blood Cell Count 2.43 10^6/uL (4.70-6.10); Red Cell Dist. Width 16.8 % (11.5-14.5); White Blood Cell Count 4.2 10^3/uL (4.8-10.8)
[2024-10-01 08:44] LABS: ALT (SGPT) 16 U/L (0-50); AST (SGOT) 37 U/L (17-59); Alkaline Phosphatase 75 U/L (38-126); Blood Urea Nitrogen 17 mg/dl (9-20); Calcium 7.7 mg/dl (8.4-10.2); Carbon Dioxide 22 mmol/L (22-30); Chloride 106 mmol/L (98-107); Estimated Creatinine Clearance 114 ml/min; Glucose 94 mg/dl (70-99); Sodium 134 mmol/L (135-145); Total Bilirubin 2.3 mg/dl (0.2-1.3); eGFR > 60.00
[2024-10-01] MEDS: SPIRIVA RESPIMAT 2.5 MCG INH (08:46)
[2024-10-01] MEDS: SYMBICORT 160/4.5 MCG INHALER INH ×2 (08:47→19:44)
[2024-10-01] MEDS: DESENEX/MITRAZOL/ZEASORB 1 APPLIC TOPICAL ×2 (12:00→21:28)
[2024-10-01] MEDS: DUPHALAC/CHRONULAC 20 GRAMS PO ×2 (12:00→17:49)
[2024-10-01] MEDS: PREPARATION H OINTMENT 1 APPLIC RECTAL ×2 (12:00→21:31)
[2024-10-01] MEDS: VITAMIN B1 100 MG PO (12:02)
[2024-10-01] MEDS: ULTRAM 50 MG PO ×2 (12:02→21:41)
[2024-10-01] MEDS: PROTONIX IV 40 MG IV ×2 (12:04→21:30)
[2024-10-01] MEDS: NSS (PRESERVATIVE FREE) 10 ML IV ×2 (12:05→21:29)
[2024-10-01] MEDS: MAG-TAB SR 84 MG PO ×2 (12:05→21:28)
[2024-10-01] MEDS: XIFAXAN 550 MG PO ×2 (12:05→21:29)
[2024-10-01] MEDS: FEOSOL 325 MG PO (12:05)
[2024-10-01] MEDS: ATARAX 25 MG PO ×2 (13:39→21:42)
--- NOTE | 2024-10-01 13:55 | W.PN.HOSP.TC ---
Today's Communication/Plan
-
Midline
DC planning
Assessment / Plan
Assessment / Plan
#Toxic metabolic encephalopathy secondary to decompensated liver cirrhosis/acute hepatic encephalopathy
#Decompensated liver cirrhosis likely 2/2 Etoh vs. ?hep C
- Improved mentation now
-Continue lactulose, Xifaxan
-Uptitrate lactulose if needed. Goal 3-4 loose bowel movements daily. Mentation at baseline
-Patient normally receives paracentesis every Tuesday
-IR drained 4.7 L
-Status post albumin on day 1 and day 3. Repeat diagnostic paracentesis significant improvement for PMN.
- Repeat paracentesis fluid culture results-neg so far .
-Per GI discussion with transplant team at [facility] patient with positive PETH test suspecting of alcohol usage? Patient and spouse had multiple question regards PETH testing. Recommended to discuss with her primary hepatology on next appointment
which is scheduled in early October.
# Fever likely 2/2 secondary to SBP and ESBL bacteremia and COVID and enterococcus UTI
# Lactic acidosis resolved
-Fever resolved
-Blood cultures with ESBL and peritoneal fluid culture also +ESBL
-Ceftriaxone discontinued and started on ertapenem
- surveillance blood cultures and repeat peritoneal fluid cx are negative so far
-no plan to start anti-viral per ID
-Susceptibility results of ESBL noted.
- Midline today - CX neg for 72 hr now
- CM to look into OP abx - need another 6 days of tx.
-Plan for doxycycline as SBP prophylaxis on discharge
-Infectious disease following
# Recurrent upper GI bleeding likely secondary to portal hypertensive gastropathy
# History of gastric varices status post gastric artery coiling 09/2024
# Chronic macrocytic anemia secondary to liver disease
-Thought to be secondary to portal hypertensive gastropathy on recent EGD 2 admissions prior
-Hemoglobin at 7 and will transfuse 1 unit of PRBC. Hgb at 7.8
-tolerating diet
-Protonix 40 IV twice daily
-GI consulted
# Chronic severe thrombocytopenia secondary to liver disease
-Platelets of 46
#Hyponatremia
-resolved.
Hepatitis C status post treatment with Epclusa
History of colon polyps with polyp removal
History of hemorrhoids
Portal hypertension
Chronic pain
Essential hypertension
GERD
History of skin cancer status post Mohs surgery
Anxiety
COPD
Full code
DVT prophylaxis�SCDs in the setting of thrombocytopenia.
PT/OT-Home VN.
DW CM re;home abx
Likely dc in am once home abx set up.
Anticipated Discharge: Within 24 hours
Subjective/Interval History
-
Date of Service: October 01, 2024
Sore throat is improved. Denies any cough or shortness of breath.
Denies any nausea vomiting or abdominal pain. Tolerating diet.
Denies shortness of breath or chest pain.
He thinks he is at his baseline and can manage at home.
Objective Data
-
Labs:
Laboratory Results
10/01/24
07:26
WBC 4.2 L
Hgb 7.8 L
Hct 23.7 L
Plt Count 54 L
PT 22.1 H
INR 1.92
Sodium 134 L
Potassium 4.0
Chloride 106
Carbon Dioxide 22
BUN 17
Creatinine 0.7
Glucose 94
Calcium 7.7 L
Total Bilirubin 2.3 H
AST 37
ALT 16
Alkaline Phosphatase 75
Vital Signs:
Vital Signs
Temp Pulse Resp BP Pulse Ox
98.8 F 86 18 105/57 96
10/01/24 07:58 10/01/24 07:58 10/01/24 07:58 10/01/24 07:58 10/01/24 07:58
I&O
09/30/24 10/01/24 10/02/24
06:59 06:59 06:59
Intake Total 1030 / 1030 1520 / 1520
Balance 1030 / 1030 1520 / 1520
Review of Systems
-
Constitutional: Denies Fever
Neuro: Denies Dizzy or Headache
Physical Exam
-
General: No Apparent Distress
HEENT: Moist Mucous Membranes
Respiratory: Clear to Auscultation
Cardiac: Regular Rhythm and S1/S2
GI: Soft, Nontender, Normal Bowel Sounds and Distended
Neuro: AO x 3; Negative Tremors
Psych: Calm; Negative Confused or Agitated
Data Reviewed
-
Labs: Labs Reviewed by me
[2024-10-01 15:00] VITALS: BP 113/56
--- NOTE | 2024-10-01 15:30 | W.PN.ID1 ---
Date of Service
Date of Service: October 01, 2024
Today's Communication
Continue antibiotics
Assessment / Plan
E. coli bacteremia
SBP secondary to ESBL E. coli
Encephalopathy; likely hepatic related
- improved
Thrombocytopenia.
Anemia
Elevated ammonia level
Cirrhosis (Hep C vs. EtOH)
Hx Upper GI bleed
COPD
Hepatic encephalopathy
Recommendations:
Continue ertapenem to complete a 10-day course (given bacteremia)
IV sheet has been given to case management.
GI note reviewed regarding SBP prophylaxis. Options are exceedingly limited given current susceptibilities. Doxycycline 100 mg p.o. daily likely is the best option.
At present, no symptomatology of COVID-19 (no fever, no cough, no shortness of breath, no congestion). Can hold on antivirals for now.
Monitor white count and temperature curve.
Repeat paracentesis results show improvement.
Chief Complaint
-: Other (COVID-19; SBP with ESBL E. coli)
Subjective / Review of Systems
Review of Systems: No Fever, No Chills and No Abdominal Pain
Vital Signs / Physical Exam
Vital Signs
Vital Signs
Temp Pulse Resp BP Pulse Ox
98.8 F 86 18 105/57 96
10/01/24 07:58 10/01/24 07:58 10/01/24 07:58 10/01/24 07:58 10/01/24 07:58
Physical Exam
Constitutional: No Acute Distress, Comfortable, Chronically Ill and Non-toxic
Eyes: Sclera Anicteric
Cardiovascular: Regular Rate and S1/S2; Negative S3/S4
Pulmonary: Clear; Negative Wheezes or Rales
Gastrointestinal: Soft, Non Tender, Distended and Normal Bowel Sounds
Extremities: Edema; Negative Cyanosis
Neurological: Awake and Alert
Objective Data
Lab Data
Lab Results
10/01/24 07:26
10/01/24 07:26
PT 22.1 Sec (11.4-14.6) H 10/01/24 07:26
INR 1.92 10/01/24 07:26
APTT 40.4 Sec (23.4-35.0) H 09/26/24 11:28
Estimated Creat Clear 114 ml/min 10/01/24 07:26
Lactic Acid 1.6 mmol/L (0.7-2.0) 09/26/24 15:31
Total Bilirubin 2.3 mg/dl (0.2-1.3) H 10/01/24 07:26
AST 37 U/L (17-59) 10/01/24 07:26
ALT 16 U/L (0-50) 10/01/24 07:26
Alkaline Phosphatase 75 U/L (38-126) 10/01/24 07:26
Most recent labs reviewed.
Micro Results:
09/28/24 11:50 Body Fluid Culture - Final
Peritoneal Fluid No Growth After 72 Hours
Gram Stain - Final
09/26/24 10:42 Blood Culture - Final
Blood/Venous No Growth - Final Report
09/27/24 17:43 Blood Culture - Preliminary
Blood/Venous No Growth in 72 hours- Final report to follow
09/26/24 23:05 Urine Culture - Final
Urine Enterococcus faecalis
09/26/24 11:57 Body Fluid Culture - Final
Peritoneal Fluid Escherichia coli - ESBL
Gram Stain - Final
09/26/24 11:10 Blood Culture - Final
Blood/Venous Escherichia coli - ESBL
Gram Stain - Final
Imaging:
09/26/2024 CT abdomen/pelvis with IV contrast: There is mild wall thickening of the distal esophagus suggesting esophagitis. Subtle liver surface nodularity consistent with history of cirrhosis. There is evidence of portal hypertension with
splenomegaly and extensive portosystemic venous collaterals. Mild ascites is noted. Minor diverticulosis without acute diverticulitis. A nonobstructing 8 mm left ureteropelvic junction calculus is noted and similar to prior examinations. Please
see full dictation for additional detail. Film personally viewed.
--- NOTE | 2024-10-01 15:36 | CM ---
Addendum entered by Pili Ashley 10/01/24 16:59:
Update to pt on his cell
Original Note:
CM reviewed pt with Dr Guerrero- ready for dc
Pt will require IV abx on through 10/06, plan for mid line
Attempted bedside calls to pt- no answer
Calls with spouse throughout day
She is a nurse and can manage abx at home
Call to outpt infusion center and not able to accommodate COVID patients
Scripts received and referral sent to [facility]
Pt has 100% coverage, [facility] to complete 1x nursing visit for removal of line
Attempted call to pt cell- requested CM call back later as he is getting mid line placed
Plan for dc home tomorrow
Bedside teaching with pt, spouse and Natalie/[facility] at noon
Order requested for 1x nursing visit to remove mid line
Script placed on chart
Update to nursing
Mid-line info to be faxed to [facility] once available
Discharge Disposition- home tomorrow with [facility]
[2024-10-01] MEDS: ATIVAN 0.25 MG IV (15:38)
[2024-10-01] MEDS: INVANZ 60 MG IV (15:39)
[2024-10-01] MEDS: NSS (PRESERVATIVE FREE) 0.125 ML IV (15:39)
--- NOTE | 2024-10-01 16:12 | W.DCSUMMARY ---
Discharge Summary
Discharge Data
Date of Admission: 06/13/24
Date of Discharge: 06/15/24
-
Pending Results: No
Hospital Course
Primary diagnoses:
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
Recurrent ascites secondary to cirrhosis
Secondary diagnoses:
Chronic obstructive pulmonary disease
Pancytopenia
Consultants:
Gastroenterology
Imaging:
None
Hospital course: 59-year-old male who presented to the ER with a chief complaint of low hemoglobin as outlined in the H&P done on admission. Despite heme-negative stool in the ER it was likely that his acute on chronic anemia was related to
subacute GI losses given his known hypertensive gastropathy on recent EGD. He received 3 units packed red blood cells while hospitalized. His Protonix was continued. He was cleared for discharge by gastroenterology. Of note, while hospitalized
it was felt that he had rectal bleeding due to hemorrhoidal bleeding.
Recurrent Ascites: The patient underwent paracentesis on 06/14/24 for 5100cc. There was no SBP by fluid studies.
Discharge Plan
-
Referrals:
Drake Goss DO [Family Provider] -
Prescriptions:
No Action
thiamine HCl (vitamin B1) 100 mg tablet
100 mg PO DAILY
Breztri Aerosphere 160-9-4.8 mcg/actuation Hfa Aerosol Inhaler
2 inh INHALATION R BID
Xifaxan 550 mg Tablet
550 mg PO BID
magnesium oxide 400 mg magnesium Tablet
400 mg PO BID
lactulose 20 gram/30 mL Solution
20 g PO TID Qty: 2880 0RF
pantoprazole [Protonix] 40 mg tablet,delayed release (DR/EC)
40 mg PO BID
furosemide 20 mg Tablet
20 mg PO DAILY Qty: 30 0RF
ondansetron HCl 4 mg Tablet
4 mg PO DAILYPRN PRN (Reason: nasuea)
lidocaine 4 % adhesive patch,medicated
1 patch topical DAILYPRN PRN (Reason: right knee and right shoulder)
miconazole nitrate [Miconazorb AF] 2 % powder
1 applic topical BID
trazodone 50 mg tablet
25 mg PO HSPRN PRN (Reason: sleep )
tramadol 50 mg tablet
50 mg PO BID PRN (Reason: moderate-severe pain)
Rx Instructions:
09/26/24: filled #5 tablets/5 day supply on 09/19/24 at [facility]
spironolactone 25 mg tablet
25 mg PO DAILY
ferrous sulfate [FeroSul] 325 mg (65 mg iron) tablet
325 mg PO DAILY
Hemorrhoidal(PE-min oil-darling) 0.25-14-74.9 % ointment
1 applic OH BID
hydroxyzine HCl [Atarax] 25 mg Tablet
25 mg PO QID PRN (Reason: itching )
Discharge Date and Time
Print Language: TURKISH
[2024-10-01] MEDS: DUPHALAC/CHRONULAC PO ×2 (21:31→21:49)
[2024-10-01 23:10] VITALS: BP 107/61
[2024-10-02 05:24] LABS: Hematocrit 21.7 % (39.0-52.0); Hemoglobin 7.1 g/dL (13.0-18.0); Mean Corp Hgb Conc. 32.7 g/dL (33.0-37.0); Mean Corpuscular Hgb 32.3 pg (27.0-31.0); Mean Corpuscular Volume 98.6 fL (80.0-94.0); Mean Platelet Volume 10.8 fL (7.4-10.4); Platelet Count 58 10^3/uL (130-400); Red Cell Dist. Width 16.6 % (11.5-14.5); White Blood Cell Count 3.7 10^3/uL (4.8-10.8)
[2024-10-02 06:49] VITALS: BMI 27.3
[2024-10-02 07:23] VITALS: BP 113/52
[2024-10-02] MEDS: DUPHALAC/CHRONULAC 20 GRAMS PO (08:08)
[2024-10-02] MEDS: MAG-TAB SR 84 MG PO (08:08)
[2024-10-02] MEDS: FEOSOL 325 MG PO (08:08)
[2024-10-02] MEDS: XIFAXAN 550 MG PO (08:09)
[2024-10-02] MEDS: NSS (PRESERVATIVE FREE) 10 ML IV (08:09)
[2024-10-02] MEDS: PROTONIX IV 40 MG IV (08:09)
[2024-10-02] MEDS: DESENEX/MITRAZOL/ZEASORB 1 APPLIC TOPICAL (08:10)
[2024-10-02] MEDS: PREPARATION H OINTMENT 1 APPLIC RECTAL (08:10)
[2024-10-02] MEDS: ATARAX 25 MG PO ×2 (08:12→13:42)
[2024-10-02] MEDS: ULTRAM 50 MG PO ×2 (08:12→13:42)
[2024-10-02] MEDS: VITAMIN B1 100 MG PO (08:48)
[2024-10-02] MEDS: SPIRIVA RESPIMAT 2.5 MCG INH (09:05)
[2024-10-02] MEDS: SYMBICORT 160/4.5 MCG INHALER INH (09:06)
--- NOTE | 2024-10-02 10:01 | PTCARENOTE ---
Pt noted with bleeding coming from his mouth. Inspected inside mouth and there was a clot noted and a lot of blood. Dr Guerrero made aware and it is noted that pt has a broken tooth which is sharp and cutting pt's tongue. Pt's platelets are only 58
today.
--- NOTE | 2024-10-02 10:37 | CM ---
Addendum entered by Nelly Ly 10/02/24 12:39:
Per Ashlie, did virtual teaching with , will deliver supplies and medications tonight. Line info and VN order faxed to [facility]. Update to nurse and Hospitalist. CM will continue to follow for all discharge planning needs.
Plan; home with and [facility]
Addendum entered by Nelly Ly 10/02/24 10:46:
CM received call from Ashlie, nurse covering for [facility], will place call to patients to do verbal teaching. Per Ashlie, cannot go into patients room as patient is Covid positive. Will await for call back from Ashlie regarding verbal
teaching with .
Original Note:
CM spoke with [facility], nurse to come out for bedside teaching is out sick- unable to provide bedside teaching, instructed for to call [facility] office- [phone]. CM left voicemail for patients . CM updated nurse and Hospitalist.
CM will continue to follow for all discharge planning needs.
Plan; home with , to call [facility] office to discuss discharge planning.
[2024-10-02] MEDS: INVANZ 60 MG IV (12:24)
--- NOTE | 2024-10-02 14:14 | W.PN.HOSP.TC ---
Today's Communication/Plan
-
DC
Assessment / Plan
Assessment / Plan
#Toxic metabolic encephalopathy secondary to decompensated liver cirrhosis/acute hepatic encephalopathy
#Decompensated liver cirrhosis likely 2/2 Etoh vs. ?hep C
-Remains improved with regards to mentation
-Continue lactulose, Xifaxan
-Patient normally receives paracentesis every Tuesday
-IR drained 4.7 L
-Status post albumin on day 1 and day 3. Repeat diagnostic paracentesis significant improvement for PMN.
- Repeat paracentesis fluid culture results-neg so far .
-Per GI discussion with transplant team at [facility] patient with positive PETH test suspecting of alcohol usage? Patient and spouse had multiple question regards PETH testing. Recommended to discuss with her primary hepatology on next appointment
which is scheduled in early October.
# Fever likely 2/2 secondary to SBP and ESBL bacteremia and COVID and enterococcus UTI
# Lactic acidosis resolved
-Fever resolved
-Blood cultures with ESBL and peritoneal fluid culture also +ESBL
-Ceftriaxone discontinued and started on ertapenem
- surveillance blood cultures and repeat peritoneal fluid cx are negative so far
-no plan to start anti-viral per ID
-Susceptibility results of ESBL noted.
- [facility]line place - CX neg for 72 hr now
- CM to look into OP abx - need another 5 days of tx -arranged. Pt is happy to do it at home.
-Plan for doxycycline as SBP prophylaxis on discharge
-Infectious disease following
# Recurrent upper GI bleeding likely secondary to portal hypertensive gastropathy
# History of gastric varices status post gastric artery coiling 09/2024
# Chronic macrocytic anemia secondary to liver disease
-Thought to be secondary to portal hypertensive gastropathy on recent EGD 2 admissions prior
-Hemoglobin at 7 and will transfuse 1 unit of PRBC. Hgb at 7.1
-tolerating diet
-Protonix 40 IV twice daily
-GI consulted
# Tongue bleeding sec to tongue bite. Pt has bad lower right molar - advised to follow with his dentist
# Chronic severe thrombocytopenia secondary to liver disease
-Platelets of 46
#Hyponatremia
-resolved.
Hepatitis C status post treatment with Epclusa
History of colon polyps with polyp removal
History of hemorrhoids
Portal hypertension
Chronic pain
Essential hypertension
GERD
History of skin cancer status post Mohs surgery
Anxiety
COPD
Full code
DVT prophylaxis�SCDs in the setting of thrombocytopenia.
PT/OT-Home VN.
DW CM - is learning to go abx at home with help of [facility]
Check left leg US and if neg for DVT DC home
Total time of dc 32 min
Anticipated Discharge: Today
Subjective/Interval History
-
Date of Service: October 02, 2024
He bit his tongue after breakfast and he was bleeding from the tongue this morning.
Denies any prior history of gum bleeding.
Left leg pain ;no trauma.
Objective Data
-
Labs:
Laboratory Results
10/02/24
04:59
WBC 3.7 L
Hgb 7.1 L
Hct 21.7 L
Plt Count 58 L
Vital Signs:
Vital Signs
Temp Pulse Resp BP Pulse Ox
98.0 F 85 20 113/52 94
10/02/24 07:23 10/02/24 07:23 10/02/24 07:23 10/02/24 07:23 10/02/24 08:10
I&O
10/01/24 10/02/24 10/03/24
06:59 06:59 06:59
Intake Total 1520 / 1520
Balance 1520 / 1520
Review of Systems
-
Constitutional: Denies Fever or Chills
EENT: Denies Sore Throat
Respiratory: Denies Trouble Breathing
Cardiac: Denies Chest Pain
Abdomen/GI: Denies Abdominal Pain, Nausea or Vomiting
Neuro: Denies Dizzy
Physical Exam
-
General: No Apparent Distress
HEENT: Moist Mucous Membranes and Other (Bleeding in mouth noted. Right first lower molar crown is destroyed with projecting corner part of crown -it is rubbing on his lower part of back of his tongue and has minor abrasion there .)
Respiratory: Clear to Auscultation
Cardiac: Regular Rhythm and S1/S2
GI: Soft, Nontender and Distended
Musculoskeletal: Edema, Left Upper Extrem and Edema, Right Lower Extrem
Neuro: AO x 3; Negative Tremors
Psych: Calm; Negative Confused
Data Reviewed
-
Labs: Labs Reviewed by me
--- NOTE | 2024-10-02 16:11 | W.PN.ID1 ---
Date of Service
Date of Service: October 02, 2024
Today's Communication
Continue current course of ertapenem, with subsequent transition to indefinite SBP doxycycline prophylaxis
Assessment / Plan
E. coli bacteremia
SBP secondary to ESBL E. coli
Encephalopathy; likely hepatic related
- improved
Thrombocytopenia.
Anemia
Elevated ammonia level
Cirrhosis (Hep C vs. EtOH)
Hx Upper GI bleed
COPD
Hepatic encephalopathy
Recommendations:
Continue ertapenem to complete a 10-day course (given bacteremia)
IV sheet has been given to case management.
GI note reviewed regarding SBP prophylaxis. Options are exceedingly limited given current susceptibilities. Doxycycline 100 mg p.o. daily likely is the best option and will be started following completion of ertapenem.
At present, no symptomatology of COVID-19 (no fever, no cough, no shortness of breath, no congestion). Can hold on antivirals for now.
����������������������������������������������������������
Chief Complaint
-: Other (COVID-19; SBP with ESBL E. coli)
Subjective / Review of Systems
Review of Systems: No Fever and No Chills
Vital Signs / Physical Exam
Vital Signs
Vital Signs
Temp Pulse Resp BP Pulse Ox
98.0 F 85 20 113/52 94
10/02/24 07:23 10/02/24 07:23 10/02/24 07:23 10/02/24 07:23 10/02/24 08:10
Physical Exam
Constitutional: No Acute Distress, Comfortable, Chronically Ill and Non-toxic
Head: Normocephalic
Eyes: Sclera Anicteric
Cardiovascular: Regular Rate and S1/S2
Pulmonary: Clear and Non Labored
Gastrointestinal: Soft, Non Tender, Distended and Normal Bowel Sounds
Extremities: Edema; Negative Cyanosis
Neurological: Awake and Alert
Objective Data
Lab Data
Lab Results
10/02/24 04:59
10/01/24 07:26
PT 22.1 Sec (11.4-14.6) H 10/01/24 07:26
INR 1.92 10/01/24 07:26
APTT 40.4 Sec (23.4-35.0) H 09/26/24 11:28
Estimated Creat Clear 114 ml/min 10/01/24 07:26
Lactic Acid 1.6 mmol/L (0.7-2.0) 09/26/24 15:31
Total Bilirubin 2.3 mg/dl (0.2-1.3) H 10/01/24 07:26
AST 37 U/L (17-59) 10/01/24 07:26
ALT 16 U/L (0-50) 10/01/24 07:26
Alkaline Phosphatase 75 U/L (38-126) 10/01/24 07:26
Most recent labs reviewed.
Micro Results:
09/27/24 17:43 Blood Culture - Preliminary
Blood/Venous No Growth in 4 days- Final report to follow
09/28/24 11:50 Body Fluid Culture - Final
Peritoneal Fluid No Growth After 72 Hours
Gram Stain - Final
09/26/24 10:42 Blood Culture - Final
Blood/Venous No Growth - Final Report
09/26/24 23:05 Urine Culture - Final
Urine Enterococcus faecalis
09/26/24 11:57 Body Fluid Culture - Final
Peritoneal Fluid Escherichia coli - ESBL
Gram Stain - Final
09/26/24 11:10 Blood Culture - Final
Blood/Venous Escherichia coli - ESBL
Gram Stain - Final
Imaging:
09/26/2024 CT abdomen/pelvis with IV contrast: There is mild wall thickening of the distal esophagus suggesting esophagitis. Subtle liver surface nodularity consistent with history of cirrhosis. There is evidence of portal hypertension with
splenomegaly and extensive portosystemic venous collaterals. Mild ascites is noted. Minor diverticulosis without acute diverticulitis. A nonobstructing 8 mm left ureteropelvic junction calculus is noted and similar to prior examinations. Please
see full dictation for additional detail. Film personally viewed.
[2024-10-02 16:18] VITALS: BP 125/56
== END 2024-10-02 16:21 | disposition home health service (06) | DRG 432 ==
LOC: 4 WEST ACU 15:40
PROVIDERS: Hospitalist; Nurse Practitioner; Physician Assistant; Radiology Diagnostic Radiology; Radiology Vascular & Interventional Radiology; ADMITTING PHYSICIAN Hospitalist; ATTENDING PHYSICIAN Internal Medicine; CONSULT PHYSICIAN Internal Medicine Gastroenterology; CONSULT PHYSICIAN Internal Medicine Infectious Disease; EMERGENCY PHYSICIAN Emergency Medicine; FAMILY PHYSICIAN Internal Medicine
PROC: 0W9G3ZZ Drainage of Peritoneal Cavity, Percutaneous Approach (ICD-10-PCS; 2024-09-26)
PROC: 30233N1 Transfusion of Nonautologous Red Blood Cells into Peripheral Vein, Percutaneous Approach (ICD-10-PCS; 2024-09-29)
DX: K70.31 Alcoholic cirrhosis of liver with ascites (principal); G92.8 Other toxic encephalopathy; K65.2 Spontaneous bacterial peritonitis; U07.1 COVID-19; I85.11 Secondary esophageal varices with bleeding; K76.6 Portal hypertension; R78.81 Bacteremia; N39.0 Urinary tract infection, site not specified; E87.20 Acidosis, unspecified; D61.818 Other pancytopenia; K76.82 Hepatic encephalopathy; K31.89 Other diseases of stomach and duodenum; I10 Essential (primary) hypertension; K21.9 Gastro-esophageal reflux disease without esophagitis; B18.2 Chronic viral hepatitis C; D69.59 Other secondary thrombocytopenia; B96.20 Unspecified Escherichia coli [E. coli] as the cause of diseases classified elsewhere; F17.200 Nicotine dependence, unspecified, uncomplicated; B95.2 Enterococcus as the cause of diseases classified elsewhere; F41.9 Anxiety disorder, unspecified; G89.29 Other chronic pain; D50.0 Iron deficiency anemia secondary to blood loss (chronic); I86.4 Gastric varices; T47.3X6A Underdosing of saline and osmotic laxatives, initial encounter; J44.9 Chronic obstructive pulmonary disease, unspecified; F10.91 Alcohol use, unspecified, in remission; Z91.199 Patient's noncompliance with other medical treatment and regimen due to unspecified reason; Z86.73 Personal history of transient ischemic attack (TIA), and cerebral infarction without residual deficits; Z85.828 Personal history of other malignant neoplasm of skin; Z79.899 Other long term (current) drug therapy
CPT/HCPCS: 49083; 71046; 74177; 80053; 81003; 81015; 82042; 82140; 82150; 82248; 83605; 83615; 83690; 84157; 85014; 85018; 85025; 85027; 85610; 85730; 86850; 86900; 86901; 86920; 86922; 87015; 87040; 87070; 87071; 87077; 87086; 87149; 87186; 87205; 87811; 89051; 93971; 94640; 96361; 96365; 97162; 99285; J1335; P9016; P9047; Q9967

== ENCOUNTER 2024-10-05 20:55 | Emergency (ER) | payer BC, SELFPAY ==
[2024-10-05 20:57] VITALS: BP 152/69
[2024-10-05 21:36] VITALS: BP 136/66
[2024-10-05 21:39] VITALS: BMI 29.2
[2024-10-05 21:40] VITALS: BP 136/66
[2024-10-05 21:49] LABS: ALT (SGPT) 17 U/L (0-50); AST (SGOT) 42 U/L (17-59); Albumin 3.2 g/dl (3.5-5.0); Alkaline Phosphatase 103 U/L (38-126); Blood Urea Nitrogen 16 mg/dl (9-20); Calcium 8.2 mg/dl (8.4-10.2); Carbon Dioxide 21 mmol/L (22-30); Chloride 110 mmol/L (98-107); Estimated Creatinine Clearance 89 ml/min; Glucose 128 mg/dl (70-99); Sodium 139 mmol/L (135-145); Total Bilirubin 2.1 mg/dl (0.2-1.3); Total Protein 5.4 g/dl (6.3-8.2); eGFR > 60.00
[2024-10-05 21:56] LABS: % Basophils 0.6 % (0-2); % Eosinophils 5.8 % (0-6); % Immature Granulocytes 0.8 % (0-0.5); % Lymphocytes 12.3 % (20.5-51.1); % Monocytes 5.8 % (1.7-9.3); % Neutrophils 74.7 % (42.2-75.2); Absolute Eosinophils 0.3 10^3/uL (0-0.7); Absolute Lymphocytes 0.6 10^3/uL (1.2-3.4); Absolute Monocytes 0.3 10^3/uL (0.1-0.6); Absolute Neutrophils 3.6 10^3/uL (1.4-6.5); Hematocrit 22.3 % (39.0-52.0); Hemoglobin 7.4 g/dL (13.0-18.0); Mean Corp Hgb Conc. 33.2 g/dL (33.0-37.0); Mean Corpuscular Hgb 31.9 pg (27.0-31.0); Mean Corpuscular Volume 96.1 fL (80.0-94.0); Mean Platelet Volume 9.9 fL (7.4-10.4); Nucleated Red Blood Cells % 0 % (-); Platelet Count 70 10^3/uL (130-400); Red Blood Cell Count 2.32 10^6/uL (4.70-6.10); White Blood Cell Count 4.8 10^3/uL (4.8-10.8)
[2024-10-05 22:00] VITALS: BP 124/63
--- NOTE | 2024-10-05 22:15 | ED.GENMED ---
History of Present Illness
General
Chief Complaint: Abnormal Lab Value
Source: patient, records and family
Exam Limitations: none
Time Seen by Provider: 10/05/24 22:02
Nursing documentation reviewed up to this point in time: agreed with
History of Present Illness
History of Present Illness:
59-year-old male with extensive medical history as documented presents to the ER for evaluation of mild dizziness and slight confusion. Patient has notable recent admission 09/26 - 10/01 here for anemia thought to be related to subacute GI bleeding
from hypertensive gastropathy. He was given 3 units of PRBCs, treated with PPI and ultimately discharged after hemoglobin stabilized. He did have some hemorrhoidal bleeding during hospitalization. He has admissions proceeding that within the past
60 days for recurrent SBP and hepatic encephalopathy. He is currently on IV antibiotics through midline. He gets regular paracentesis and is due Tuesday for his next paracentesis. He takes lactulose 20 g 3 times daily. He presents today with his
daughter because he was concerned that potentially his hemoglobin could be low. He says that he had some very mild dizziness with positional change today and well is watching TV with his daughter today made a confused remark. He says that this
seems to be a symptom when he is beginning to become anemic although here in the emergency room he says that he feels well. He has not had any chest pain or shortness of breath. He has had increased abdominal distention leading up to his scheduled
paracentesis on Tuesday. Denies abdominal pain. He denies any vomiting or diarrhea. Denies any bleeding including GI bleeding. He denies any other complaints.
Past History
Past History
ED Past Medical History: COPD, CVA, HTN, Psychiatric and Other
ED Past Surgical History: Other
Social History
Tobacco: Smoker
Alcohol: Former
Drug: None
Personal:
Living: with family
Employment: Employed
Family History
Family History: Diabetes and Other
Review of Systems
Review of Systems
All Other Systems: ROS reviewed and negative except as documented in HPI and ROS
Constitutional: Denies fever
Respiratory: Denies trouble breathing
Cardiac: Denies chest pain
ABD/GI: Reports other (Abdominal distention); Denies abdominal pain, bloody stools or black stools
: Denies flank pain
Musculoskeletal: Denies neck pain or back pain
Neurological: Reports dizzy; Denies headache
Phy Exam
Physical Exam
Physical Exam:
General: Awake, alert, oriented x3; no acute distress
Head: Normocephalic, atraumatic
Eyes: Conjunctiva normal, sclera anicteric
Throat: Airway intact, handling secretions
Neck: Trachea midline, supple without meningismus
Lungs: Occasional scattered wheezing, normal respiratory rate, normal work of breathing
Heart: Regular rate and rhythm, no murmurs, gallops, or rubs appreciated
Abd: Soft, mildly distended with positive fluid wave, nontender to deep palpation; umbilical hernia soft and reducible
Neuro: Cranial nerves grossly intact, speech fluid, no gross motor or sensory deficits
Skin: No jaundice noted, no rash
Extremities: Bilateral lower extremity edema, extremities warm well-perfused; midline left upper extremity
Scores
Heart Failure Risk
Heart Failure Risk Score: Not Applicable
Heart Score for Chest Pain Patients
STEMI patient?: Not applicable
Withdrawal Assessment of Alcohol
Withdrawal Assessment Completed?: Not applicable
Course
Orders/Labs/Results
Orders:
Orders
10/05/24 21:24
Type And Crossmatch [Type+Screen] Urgent
Complete Blood Count/With Diff Urgent
Comprehensive Metabolic Panel Urgent
10/05/24 22:21
Electrocardiogram (*1) Urgent
Reason for Study: Vertigo / Dizzy
EKG- Treatment ONCE
Abnormal Lab Results
10/05/24
21:24
RBC 2.32 L 10^6/uL
(4.70-6.10)
Hgb 7.4 L g/dL
(13.0-18.0)
Hct 22.3 L %
(39.0-52.0)
MCV 96.1 H fL
(80.0-94.0)
MCH 31.9 H pg
(27.0-31.0)
RDW 17.0 H %
(11.5-14.5)
Plt Count 70 L D 10^3/uL
(130-400)
Absolute Lymphs (auto) 0.6 L 10^3/uL
(1.2-3.4)
Immature Gran % 0.8 H %
(0-0.5)
Lymphocytes % 12.3 L %
(20.5-51.1)
Chloride 110 H mmol/L
(98-107)
Carbon Dioxide 21 L mmol/L
(22-30)
Glucose 128 H mg/dl
(70-99)
Calcium 8.2 L mg/dl
(8.4-10.2)
Total Bilirubin 2.1 H mg/dl
(0.2-1.3)
Total Protein 5.4 L g/dl
(6.3-8.2)
Albumin 3.2 L g/dl
(3.5-5.0)
10/05/24 21:24
10/05/24 21:24
Vital Signs
Initial and Last Documented VS:
Initial Vital Signs
Temp Pulse Resp BP Pulse Ox
37.1 C 94 18 152/69 97
10/05/24 20:57 10/05/24 20:57 10/05/24 20:57 10/05/24 20:57 10/05/24 20:57
Last Documented Vital Signs
Temp Pulse Resp BP Pulse Ox
37.1 C 85 22 124/63 96
10/05/24 20:57 10/05/24 22:15 10/05/24 22:15 10/05/24 22:00 10/05/24 22:00
MDM/Problems Addressed
Differential Diagnosis Includes:
Symptomatic anemia, dehydration/third spacing from ascites, orthostasis, vasovagal symptoms, dysrhythmia, hepatic encephalopathy
MDM/Problems Addressed:
59-year-old male with history as documented presents to the ER for evaluation after some positional dizziness and a confused Remy evening�he was concerned that he could be anemic. Feels well here in the ER. Hypertensive in triage normalized by
my assessment, rest of vitals normal. Physical exam as above. He had lab work sent in triage including a CBC which showed stable hemoglobin of 7.4, essentially stable thrombocytopenia in the setting of known cirrhosis. CMP no clinically
significant abnormalities. EKG shows sinus rhythm. I had a long discussion with the patient�he feels that if he is not anemic and his symptoms are likely related to increasing ascites/third spacing. He is due for paracentesis on Tuesday and he
feels that he can wait until Tuesday and does not wish to stay in the hospital for further testing or for paracentesis more urgently. He wishes to go home and assures me that he will come back if his symptoms are returning or worsening. I think
this is a reasonable plan at this point and his family feels comfortable with this as well. We spoke about return precautions and all questions were answered.
Chronic conditions affecting care:
Cirrhosis
Acute Exacerbation and/or Progression of Chronic Illness:
Hypertensive resolved without invention continue to monitor but no additional antihypertensives indicated
Acute Exacerbation and/or Progression of Chronic Illness: HTN
*Pulse Oximetry
Patient hypoxic: no
*EKG
Interpreted by ED Provider?: Yes
Heart Rate: 84
Rate: normal
Rhythm: sinus
Tennga: normal axis
Interval: normal interval
QRS Pattern: normal QRS
Ischemia: no ischemia
*Critical Care Note
Total Time (30-74mins, 75-104mins- exclusive of procedures): Not Applicable
Data Reviewed
Review of Other/Old Records Reveals: Labs, Records and Discharge Summary
Source: patient, records and family
Patient Management
Social determinants of health affecting care: Strong social support
Escalation/DeEscalation of care consider admission/obs:
Offered admission for further observation and consideration for expedited paracentesis, patient prefers discharge home as above
ED Attending Note
-
Portions of this chart may have been created with voice recognition software.� Occasional wrong word or��sound alike� substitutions may have occurred due to the inherent limitations of voice recognition software.
Discharge Plan
Departure
Patient Disposition: Home (Routine Discharge)
Date of Disposition: 10/05/24
Time of Disposition: 22:25
Patient with high blood pressure during this ER visit?: Yes
Discharge Problem:
Abdominal ascites, Dizziness
Instructions: Abdominal Paracentesis (DC)
Prescriptions:
No Action
thiamine HCl (vitamin B1) 100 mg tablet
100 mg PO DAILY
Breztri Aerosphere 160-9-4.8 mcg/actuation Hfa Aerosol Inhaler
2 inh INHALATION R BID
Xifaxan 550 mg Tablet
550 mg PO BID
magnesium oxide 400 mg magnesium Tablet
400 mg PO BID
lactulose 20 gram/30 mL Solution
20 g PO TID Qty: 2880 0RF
pantoprazole [Protonix] 40 mg tablet,delayed release (DR/EC)
40 mg PO BID
furosemide 20 mg Tablet
20 mg PO DAILY Qty: 30 0RF
ondansetron HCl 4 mg Tablet
4 mg PO DAILYPRN PRN (Reason: nasuea)
lidocaine 4 % adhesive patch,medicated
1 patch topical DAILYPRN PRN (Reason: right knee and right shoulder)
miconazole nitrate [Miconazorb AF] 2 % powder
1 applic topical BID
trazodone 50 mg tablet
25 mg PO HSPRN PRN (Reason: sleep )
tramadol 50 mg tablet
50 mg PO BID PRN (Reason: moderate-severe pain)
Rx Instructions:
09/26/24: filled #5 tablets/5 day supply on 09/19/24 at [facility]
spironolactone 25 mg tablet
25 mg PO DAILY
ferrous sulfate [FeroSul] 325 mg (65 mg iron) tablet
325 mg PO DAILY
Hemorrhoidal(PE-min oil-darling) 0.25-14-74.9 % ointment
1 applic [place] BID
Ertapenem [Invanz] 1000 MG
0.9% Sodium Chloride [Nss] 50 ML
120 mls/hr IV Q24H
Ordered By: Jorge Guerrero MD
Last Taken: Unknown
doxycycline hyclate 100 mg capsule
100 mg PO DAILY Qty: 30 0RF
Rx Instructions:
After you finish the IV antibiotics
hydroxyzine HCl 25 mg Tablet
25 mg PO QID PRN (Reason: itching ) Qty: 28 0RF
Activity Restrictions/Additional Instructions:
Thank you for visiting the Emergency Department at [facility].
1. Please schedule a follow up appointment as directed. Call first thing tomorrow morning to make an appointment.
2. If indicated, please take your medications as instructed and indicated on discharge paperwork.
3. If any of your symptoms do not improve, or persist, or become more severe within 6-12 hours, please return to the emergency department for further care.
4. Please return to the emergency department if you develop a headache, neck pain/stiffness, fever greater than 100.4F, chest pain, shortness of breath, persistent nausea, vomiting, slurred speech, difficulty walking, numbness/tingling, weakness,
signs of infection or any other symptoms that are worrisome to you.
Please call [phone] if you have any questions.
Interventions
Interventions:
*Risk Screen - Suicide Last Done: 10/05/24 20:56
*General Assessment Last Done: 10/05/24 21:29
*Neglect/Abuse Screening Last Done: 10/05/24 21:30
*ED COVID-19 Vaccine History Last Done: 10/05/24 21:29
Discharge Date and Time
Print Language: IVORIAN
== END 2024-10-05 22:39 | disposition home or self-care (01) ==
LOC: EMR 20:55
PROVIDERS: Emergency Medicine; EMERGENCY PHYSICIAN Emergency Medicine; FAMILY PHYSICIAN Internal Medicine
DX: R18.8 Other ascites (principal); R42 Dizziness and giddiness; J44.9 Chronic obstructive pulmonary disease, unspecified; I10 Essential (primary) hypertension; F17.200 Nicotine dependence, unspecified, uncomplicated; D64.9 Anemia, unspecified; K74.60 Unspecified cirrhosis of liver; Z83.3 Family history of diabetes mellitus; Z86.73 Personal history of transient ischemic attack (TIA), and cerebral infarction without residual deficits; Z87.19 Personal history of other diseases of the digestive system
CPT/HCPCS: 99284; 49083; 80053; 85025; 86850; 86900; 86901; 93005

== ENCOUNTER 2024-10-06 18:52 | Inpatient (IN) | payer BC, SELFPAY ==
[2024-10-06 12:29] VITALS: BP 141/61
--- NOTE | 2024-10-06 13:35 | EDRN ---
currently awaiting for a provider to see the pt
--- NOTE | 2024-10-06 13:40 | EDRN ---
he pt pressed the call caballero and this RN entered the pts room, the pt stated to this RN, 'Can i please have a cup of ice and am i going to get seen at some point today', this RN provided the pt with a cup of ice and notified the pt and the pts
daughter that a provider would be at the pts bedside, the pts daughter stated, 'Yeah no one has been in here to see him yet', this RN apologized for the pt and the pts daughters wait and notified a provider in pod 1
--- NOTE | 2024-10-06 14:12 | EDRN ---
Dr. Tolentino currently at the pts bedside
[2024-10-06 14:47] LABS: % Basophils 0.5 % (0-2); % Eosinophils 5.3 % (0-6); % Immature Granulocytes 0.5 % (0-0.5); % Lymphocytes 13.3 % (20.5-51.1); % Neutrophils 73.4 % (42.2-75.2); Absolute Eosinophils 0.2 10^3/uL (0-0.7); Absolute Lymphocytes 0.6 10^3/uL (1.2-3.4); Absolute Monocytes 0.3 10^3/uL (0.1-0.6); Hematocrit 21.5 % (39.0-52.0); Mean Corp Hgb Conc. 32.6 g/dL (33.0-37.0); Mean Corpuscular Hgb 32.4 pg (27.0-31.0); Mean Corpuscular Volume 99.5 fL (80.0-94.0); Mean Platelet Volume 9.9 fL (7.4-10.4); Nucleated Red Blood Cells % 0 % (-); Platelet Count 66 10^3/uL (130-400); Red Blood Cell Count 2.16 10^6/uL (4.70-6.10); Red Cell Dist. Width 17.1 % (11.5-14.5); White Blood Cell Count 4.1 10^3/uL (4.8-10.8)
[2024-10-06 14:51] VITALS: BP 112/58; BMI 26.8
[2024-10-06 14:54] LABS: ALT (SGPT) 17 U/L (0-50); AST (SGOT) 40 U/L (17-59); Albumin 3.1 g/dl (3.5-5.0); Alkaline Phosphatase 106 U/L (38-126); Blood Urea Nitrogen 17 mg/dl (9-20); Calcium 8.1 mg/dl (8.4-10.2); Carbon Dioxide 21 mmol/L (22-30); Chloride 109 mmol/L (98-107); Estimated Creatinine Clearance 94 ml/min; Glucose 90 mg/dl (70-99); Lipase 239 U/L (23-300); Potassium 4.1 mmol/L (3.5-5.1); Sodium 138 mmol/L (135-145); Total Bilirubin 2.5 mg/dl (0.2-1.3); Total Protein 5.3 g/dl (6.3-8.2); eGFR > 60.00
[2024-10-06 14:55] LABS: Ammonia < 9 umol/L (9-30)
--- NOTE | 2024-10-06 15:03 | EDRN ---
this RN noticed that the pt was off of the monitor, this RN entered the pts room and saw that the pt was off of the monitor, when this RN entered the pts room the pt stated, 'I know i know, i don't want it on or need it on', this RN educated the pt
the importance of the monitor and the pt is refusing to be placed on the radiation monitor, BP cuff, and Sp02 monitor, no s/s of distress, the pt denies needing anything at this time, will continue to monitor the pt closely
--- NOTE | 2024-10-06 16:40 | ED.GENMED ---
History of Present Illness
General
Chief Complaint: Change in Mental Status
Source: patient and family (Patient's daughter)
Time Seen by Provider: 10/06/24 14:05
History of Present Illness
History of Present Illness:
59-year-old male who again presents for evaluation after being seen last night. Today patient presents because daughter states that he was severely confused. The patient did feel confused. [place] like he was in a bad dream. He does take tramadol.
He is scheduled for a paracentesis on Tuesday. Daughter states when it is time for his paracentesis, he does seem to get confused. Patient denies fevers. No true abdominal pain. No rectal bleeding. History of end-stage liver disease due to
alcohol. Does report some lower extremity edema as well. The patient has a midline and was receiving IV antibiotics. Today was his last dose.
Past History
Past History
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 GI bleed, portal gastropathy, hemorrhoids, umbilical hernia, CVA)
ED Past Surgical History: Other
Social History
Tobacco: Smoker
Alcohol: Former
Drug: None
Personal:
Living: with family
Employment: Employed
Family History
Family History: Diabetes and Other
Phy Exam
Physical Exam
Physical Exam:
CONSTITUTIONAL Patient alert and oriented to person, place and time. Vital signs reviewed. Afebrile
HEAD atraumatic, normocephalic.
EYES eyelids normal to inspection, Extraocular muscles intact, Conjunctiva normal, Sclera normal.
NECK normal range of motion, Trachea midline, no jugular venous distention.
RESPIRATORY CHEST No respiratory distress noted, Chest expansion equal
ABDOMEN ascites noted, umbilical hernia noted, mild diffuse tenderness..
BACK normal inspection, no obvious deformities
UPPER EXTREMITY range of motion normal, Motor strength normal, no cyanosis, no edema.
LOWER EXTREMITY range of motion normal, Motor strength normal, no cyanosis, bilateral edema.
NEURO Speech normal, No focal motor deficits, [place] coma scale 15, Memory normal, Cranial Nerves intact to screening exam.
SKIN skin warm, dry, and normal in color.
Course
Orders/Labs/Results
Orders:
Orders
10/06/24 14:26
Ammonia Urgent
Complete Blood Count/With Diff Urgent
Comprehensive Metabolic Panel Urgent
Lipase Urgent
Abnormal Lab Results
10/06/24
14:26
WBC 4.1 L 10^3/uL
(4.8-10.8)
RBC 2.16 L 10^6/uL
(4.70-6.10)
Hgb 7.0 L g/dL
(13.0-18.0)
Hct 21.5 L %
(39.0-52.0)
MCV 99.5 H fL
(80.0-94.0)
MCH 32.4 H pg
(27.0-31.0)
MCHC 32.6 L g/dL
(33.0-37.0)
RDW 17.1 H %
(11.5-14.5)
Plt Count 66 L 10^3/uL
(130-400)
Absolute Lymphs (auto) 0.6 L 10^3/uL
(1.2-3.4)
Lymphocytes % 13.3 L %
(20.5-51.1)
Chloride 109 H mmol/L
(98-107)
Carbon Dioxide 21 L mmol/L
(22-30)
Calcium 8.1 L mg/dl
(8.4-10.2)
Total Bilirubin 2.5 H mg/dl
(0.2-1.3)
Ammonia < 9 L umol/L
(9-30)
Total Protein 5.3 L g/dl
(6.3-8.2)
Albumin 3.1 L g/dl
(3.5-5.0)
10/06/24 14:26
10/06/24 14:26
Vital Signs
Initial and Last Documented VS:
Initial Vital Signs
Temp Pulse Resp BP Pulse Ox
98.8 F 82 18 141/61 97
10/06/24 12:29 10/06/24 12:29 10/06/24 12:29 10/06/24 12:29 10/06/24 12:29
Last Documented Vital Signs
Temp Pulse Resp BP Pulse Ox
97.6 F 77 20 112/58 96
10/06/24 14:51 10/06/24 14:51 10/06/24 14:51 10/06/24 14:51 10/06/24 14:51
MDM/Problems Addressed
Differential Diagnosis Includes:
Hepatic encephalopathy electrolyte imbalance, anemia, spontaneous bacterial peritonitis
MDM/Problems Addressed:
End-stage liver disease, ascites, change in mental status
*Pulse Oximetry
Patient hypoxic: no
*Supervisor Riprap Placing Interpretation
Rate: normal
Interpretation: normal
Rhythm: sinus
*Critical Care Note
Total Time (30-74mins, 75-104mins- exclusive of procedures): Not Applicable
Data Reviewed
Source: patient and family
Prescriptions/Medications Considered But Not Given:
Consider antibiotics but white count okay, afebrile and just finished a course of antibiotics today
Patient Management
Discussion with other providers: Hospitalist and Rotating Field Assembler
Escalation/DeEscalation of care consider admission/obs:
59-year-old male presents with confusion. He is awake alert now and less confused. Suspect he does need paracentesis. Discussed with interventional radiology who can perform paracentesis tomorrow.
ED Attending Note
-
Portions of this chart may have been created with voice recognition software.� Occasional wrong word or��sound alike� substitutions may have occurred due to the inherent limitations of voice recognition software.
Discharge Plan
Departure
Patient Disposition: Admit
Date of Disposition: 10/06/24
Time of Disposition: 16:40
Admit to: Med/Surg
Presentation/result/management discussed w/ accepting MD/DO: Hospitalist
Discharge Problem:
Alcoholic cirrhosis of liver with ascites, Portal hypertensive gastropathy, Toxic metabolic encephalopathy
Prescriptions:
No Action
thiamine HCl (vitamin B1) 100 mg tablet
100 mg PO DAILY
Breztri Aerosphere 160-9-4.8 mcg/actuation Hfa Aerosol Inhaler
2 inh INHALATION R BID
Xifaxan 550 mg Tablet
550 mg PO BID
magnesium oxide 400 mg magnesium Tablet
400 mg PO BID
lactulose 20 gram/30 mL Solution
20 g PO TID Qty: 2880 0RF
pantoprazole [Protonix] 40 mg tablet,delayed release (DR/EC)
40 mg PO BID
ondansetron HCl 4 mg Tablet
4 mg PO DAILYPRN PRN (Reason: nasuea)
lidocaine 4 % adhesive patch,medicated
1 patch topical DAILYPRN PRN (Reason: right knee and right shoulder)
miconazole nitrate [Miconazorb AF] 2 % powder
1 applic topical BID
trazodone 50 mg tablet
50 mg PO HSPRN PRN (Reason: sleep )
tramadol 50 mg tablet
50 mg PO BIDPRN PRN (Reason: moderate-severe pain)
spironolactone 25 mg tablet
50 mg PO DAILY
ferrous sulfate [FeroSul] 325 mg (65 mg iron) tablet
325 mg PO DAILY
Hemorrhoidal(PE-min oil-darling) 0.25-14-74.9 % ointment
1 applic [place] BID
Ertapenem [Invanz] 1000 MG
0.9% Sodium Chloride [Nss] 50 ML
120 mls/hr IV Q24H
Ordered By: Jorge Guerrero MD
Last Taken: 10/06/24
Patient Comments:
last dose on 10/06/24 then start doxycycline
doxycycline hyclate 100 mg capsule
100 mg PO DAILY Qty: 30 0RF
Rx Instructions:
After you finish the IV antibiotics on 10/06/24
hydroxyzine HCl 25 mg tablet
25 mg PO QIDPRN PRN (Reason: itching /anxiety)
furosemide 20 mg tablet
40 mg PO DAILY
Referrals:
Drake Goss DO [Family Provider] -
Interventions
Interventions:
*Risk Screen - Suicide Last Done: 10/06/24 12:29
*General Assessment Last Done: 10/06/24 12:29
*Neglect/Abuse Screening Last Done: 10/06/24 14:51
ED- Fall Risk Assessment Last Done: 10/06/24 14:51
*ED COVID-19 Vaccine History Last Done: 10/06/24 12:29
ED- Cardiac Assessment Last Done: 10/06/24 14:51
ED- Neurological Assessment Last Done: 10/06/24 14:51
ED-Psychological Assessment Last Done: 10/06/24 14:51
ED- Pulmonary Assessment Last Done: 10/06/24 14:51
ED Swallowing Screen Last Done: 10/06/24 14:51
Discharge Date and Time
Print Language: THAI
--- NOTE | 2024-10-06 17:41 | HPS.HSE ---
Family Physician
-
Family Physician: Drake Goss
Chief Complaint
-
Confusion
History of Present Illness
59-year-old man with ESLD comes in with worsening confusion today. He was seen at ER last night for confusion and was discharged home. Today in the am he was severely confused. he [place] like he 'was in a bad dream.' He takes tramadol and was
scheduled for a paracentesis on Tuesday. Daughter states that when it is time for his paracentesis, he becomes more confused. Patient denies fevers, abdominal pain, rectal bleeding. As stated, he has a History of end-stage liver disease due to
alcohol. He has a midline and was receiving IV antibiotics for SBP and today was his last dose.
Medical History
Past Medical History
Past Medical History: Reports Other
Additional Past Medical History:
Right torticollis
Alcohol abuse
secondary thrombocytopenia
Essential hypertension
Tobacco abuse
Chronic hepatitis C without hepatic coma
Benzodiazepine dependence
Diverticulosis of large intestine without perforation or abscess without bleeding
Alcoholic cirrhosis of liver with ascites
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
Hypertrophic portal cirrhosis
COPD without exacerbation
Hx of arterial ischemic stroke
Other ascites
Bleeding hemorrhoids
Acute hepatic encephalopathy
Unspecified cirrhosis of liver
Advanced chronic obstructive pulmonary disease
ABLA (acute blood loss anemia)
Iron deficiency anemia, unspecified
Black stool
Frequent falls
Non-recurrent bilateral inguinal hernia without obstruction or gangrene
Ascites due to alcoholic cirrhosis
Gastric varices
Polyp of hepatic flexure of colon
Non-healing skin lesion of nose
Thrombocytopenia
Gastrointestinal hemorrhage, unspecified
Generalized weakness
Cigarette nicotine dependence without complication
repair of a spinal fluid leak
Past Surgical History: Reports Other
Additional Past Surgical History:
See above
Social History
Tobacco: Former Smoker
Alcohol: Former
Drug: None
Living: With Family
Family History
Family History: Not pertinent
Allergies / Home Medications
Allergies reflects when Allergies were last updated in [facility].
Home Medications with original date entered in [facility]
Allergy/Medication List:
Allergies
Allergy/AdvReac Type Severity Reaction Status Date / Time
No Known Allergies Allergy Verified 10/05/24 21:31
Home Medications
thiamine HCl (vitamin B1) 100 mg tablet 100 mg PO DAILY Supplement 03/13/24
budesonide 160 mcg-glycopyr 9 mcg-formot 4.8 mcg/actuation HFA inhaler (Breztri Aerosphere) 2 inh inhalation R BID Lung/Breathing Issues 04/11/24
magnesium oxide 400 mg PO BID Supplement 06/28/24
rifaximin 550 mg tablet (Xifaxan) 550 mg PO BID hepatic encephalopathy 06/28/24
lactulose 20 gram/30 mL oral solution 20 g (30 mL) PO TID Liver issues #2,880 mL 07/01/24
pantoprazole 40 mg tablet,delayed release (Protonix) 40 mg PO BID Gastrointestinal Issue 08/02/24
lidocaine 4 % topical patch 1 patch topical DAILYPRN PRN right knee and right shoulder 09/08/24
miconazole nitrate 2 % topical powder (Miconazorb AF) 1 applic topical BID groin/scrotum 09/08/24
ondansetron HCl 4 mg tablet 4 mg PO DAILYPRN PRN nasuea 09/08/24
ferrous sulfate 325 mg (65 mg iron) tablet (FeroSul) 325 mg PO DAILY Supplement 09/26/24
phenylephrine 0.25 %-mineral oil 14 %-petrolatm 74.9 % rectal ointment (Hemorrhoidal(phenyleph-min oil-petrolat)) 1 applic [place] BID hemorrhoids 09/26/24
spironolactone 25 mg tablet 25 mg PO DAILY Liver cirrhosis 09/26/24
tramadol 50 mg tablet 50 mg PO BIDPRN PRN moderate-severe pain 09/26/24
trazodone 50 mg tablet 50 mg PO HSPRN PRN sleep 09/26/24
Ertapenem [Invanz] 1,000 mg 120 mls/hr IV Q24H 10/02/24
doxycycline hyclate 100 mg capsule 100 mg PO DAILY #30 caps 10/02/24
furosemide 20 mg tablet 20 mg PO DAILY Fluid retention/Swelling 10/06/24
hydroxyzine HCl 25 mg tablet 25 mg PO QIDPRN PRN itching /anxiety 10/06/24
Review of Systems
-
A 12 point ROS was completed and negative except as noted: Yes
Physical Exam
Vital Signs
Vital Signs
Temp Pulse Resp BP Pulse Ox
97.6 F 77 20 112/58 96
10/06/24 14:51 10/06/24 14:51 10/06/24 14:51 10/06/24 14:51 10/06/24 14:51
Physical Exam
General: Well Developed, Well Nourished, No Apparent Distress and Comfortable
HEENT: Nose Appears Normal and Ears Appear Normal
Respiratory: Clear and Decreased Breath Sounds
Cardiac: S1/S2 and Regular Rhythm
GI: Soft, Non Tender and Distended
Musculoskeletal: No Clubbing, No Cyanosis, Edema, Left Lower Extremity and Edema, Right Lower Extremity
Skin: Warm and Dry; No Rash
Neuro: Awake and Alert
Psych: Calm and Confused
Laboratory Results
-
10/06/24 14:26
10/06/24 14:26
Laboratory Results
Total Bilirubin 2.5 mg/dl (0.2-1.3) H 10/06/24 14:26
AST 40 U/L (17-59) 10/06/24 14:26
ALT 17 U/L (0-50) 10/06/24 14:26
Alkaline Phosphatase 106 U/L (38-126) 10/06/24 14:26
Lipase 239 U/L (23-300) 10/06/24 14:26
Data Reviewed
-
Lab Data: Labs Reviewed by me
Impression/Plan
-
IMPRESSION:
59 man with ESRD on transplant list. Here with increased confusion, needing paracentesis. Notable labs:
WBC 4.1 (near baseline)
H/H 7.0/21.5 (baseline ~ 7.4/22)
PLT 66 (near baseline)
Ca 9.12 (after correction)
Alb 3.1
NH3 <9
PLAN:
1. ESRD with increased confusion
IR consult
NPO P midnight
Paracentesis in am
2. Covid 2 weeks ago. Symptoms resolving (only mild sore throat left)
Likely not contagious at this point
Out of window for most treatment options
Does not appear to need covid specific treatment
Follow closely
3. Anemia of chronic illness - only 1/2 a point below baseline
Hold on transfusion unless hemoglobin < 7.0, or new symptoms develop
Recheck in am
4. Low platelets - no signs of active bleeding
Likely OK to have procedures if PLT > 50.
5. Medically complex (32 items on PMH), but rest of issues appear stable.
Continue usual meds
VCD for DVTp (avoid heparin products)
Ful code
[2024-10-06 20:04] VITALS: BP 126/63
[2024-10-06] MEDS: PROTONIX 40 MG PO (20:16)
[2024-10-06] MEDS: MAGNESIUM OXIDE 500 MG PO (20:16)
[2024-10-06] MEDS: ATARAX 25 MG PO (20:22)
[2024-10-06] MEDS: ULTRAM 50 MG PO (20:22)
[2024-10-06] MEDS: SYMBICORT 160/4.5 MCG INHALER 2 PUFF INH (20:24)
[2024-10-06 20:28] VITALS: BMI 28.7
[2024-10-06] MEDS: XIFAXAN 550 MG PO (20:47)
[2024-10-06] MEDS: DESENEX/MITRAZOL/ZEASORB 1 APPLIC TOPICAL (20:48)
[2024-10-06] MEDS: PREPARATION H OINTMENT 1 APPLIC RECTAL (20:49)
[2024-10-06] MEDS: DUPHALAC/CHRONULAC PO (22:45)
[2024-10-06 23:16] VITALS: BP 104/57
[2024-10-07] MEDS: DESYREL 50 MG PO (02:17)
--- NOTE | 2024-10-07 03:22 | PTCARENOTE ---
10/06/2024 - PT admitted to room 2 from the ED @ 19:46. PT transferred abulated from stretcher to bed independently. PT oriented to room, call caballero, plan of care discussed. PT AAOX3. PT able to participate fully in admission questions. Assessment
as documented.
[2024-10-07 07:09] LABS: Mean Corp Hgb Conc. 33.3 g/dL (33.0-37.0); Mean Corpuscular Hgb 32.7 pg (27.0-31.0); Mean Corpuscular Volume 98.1 fL (80.0-94.0); Mean Platelet Volume 10.6 fL (7.4-10.4); Platelet Count 71 10^3/uL (130-400); Red Blood Cell Count 2.14 10^6/uL (4.70-6.10); Red Cell Dist. Width 16.8 % (11.5-14.5); White Blood Cell Count 3.8 10^3/uL (4.8-10.8)
[2024-10-07 07:12] LABS: Blood Urea Nitrogen 17 mg/dl (9-20); Calcium 8.2 mg/dl (8.4-10.2); Carbon Dioxide 23 mmol/L (22-30); Chloride 111 mmol/L (98-107); Estimated Creatinine Clearance 100 ml/min; Glucose 81 mg/dl (70-99); Potassium 4.3 mmol/L (3.5-5.1); Sodium 138 mmol/L (135-145); eGFR > 60.00
--- NOTE | 2024-10-07 07:46 | W.PN.HOSP.TC ---
Today's Communication/Plan
-
see bold
Assessment / Plan
Assessment / Plan
Gen: NAD, AAOx3.
Eyes: EOMI, PERRLA, mild scleral icterus.
Neck: supple.
CV: RRR, +S1/S2, 2/6 systolic murmur
Resp: CTAB, no rales, wheezes, or rhonchi.
Abd: +BS, soft, moderately distended with ascites, ND
Skin: No rashes.
Neuro: CN 2-12 intact, non-focal.
Psych: Normal mood and affect.
Acute hepatic encephalopathy due to end-stage liver disease due to alcoholic cirrhosis:
-history consistent with acute hepatic encephalopathy despite ammonia < 9 on admission
-c/s IR for Dx/Tx paracentesis
-recent SBP, 10/06/24 was last day abx
-cont Lactulose/Lasix/Rifaximin/Aldactone
Anemia of chronic disease:
-Transfuse for hemoglobin less than 7
-note, Hb 7.0 this AM. Would recheck Hb in AM prior to discharge to ensure no pRBCs needed this admission.
Other problems:
Thrombocytopenia due to end-stage liver disease
Recurrent upper GI bleeding likely secondary to portal hypertensive gastropathy
h/o gastric varices s/p gastric artery coiling 09/2024
HCV s/p tx with Epclusa
Chronic pain
Essential hypertension: Cont lasix/aldactone
GERD: Cont PPI
h/o skin cancer s/p Mohs surgery
Anxiety
COPD: Cont Symbicort/Spiriva
FULL/
Anticipated Discharge: Within 24 hours
Subjective/Interval History
-
Date of Service: October 07, 2024
No new complaints. Denies CP/SOB. Reports mild abdominal discomfort.
Objective Data
-
Labs:
Laboratory Results
10/07/24
05:00
WBC 3.8 L
Hgb 7.0 L
Hct 21.0 L
Plt Count 71 L
Sodium 138
Potassium 4.3
Chloride 111 H
Carbon Dioxide 23
BUN 17
Creatinine 0.8
Glucose 81
Calcium 8.2 L
Vital Signs:
Vital Signs
Temp Pulse Resp BP Pulse Ox
99.7 F 84 19 104/57 94
10/06/24 23:16 10/06/24 23:16 10/06/24 23:16 10/06/24 23:16 10/06/24 23:16
I&O
10/06/24 10/07/24 10/08/24
06:59 06:59 06:59
Intake Total 440 / 440
Balance 440 / 440
[2024-10-07] MEDS: SYMBICORT 160/4.5 MCG INHALER INH ×2 (07:50→18:14)
[2024-10-07 08:08] VITALS: BP 128/55
[2024-10-07] MEDS: ALDACTONE 25 MG PO (08:17)
[2024-10-07] MEDS: DUPHALAC/CHRONULAC 20 GRAMS PO ×3 (08:17→21:55)
[2024-10-07] MEDS: VITAMIN B1 100 MG PO (08:18)
[2024-10-07] MEDS: FEOSOL 325 MG PO (08:18)
[2024-10-07] MEDS: VIBRAMYCIN 100 MG PO (08:18)
[2024-10-07] MEDS: PROTONIX 40 MG PO ×2 (08:18→20:31)
[2024-10-07] MEDS: MAGNESIUM OXIDE 500 MG PO ×2 (08:18→20:31)
[2024-10-07] MEDS: LASIX 20 MG PO (08:18)
[2024-10-07] MEDS: XIFAXAN 550 MG PO ×2 (08:18→20:31)
[2024-10-07] MEDS: PREPARATION H OINTMENT 1 APPLIC RECTAL ×2 (08:20→20:33)
[2024-10-07] MEDS: DESENEX/MITRAZOL/ZEASORB 1 APPLIC TOPICAL ×2 (08:21→20:31)
[2024-10-07] MEDS: ATARAX 25 MG PO (08:29)
[2024-10-07] MEDS: ULTRAM 50 MG PO ×2 (08:29→20:43)
[2024-10-07 11:20] VITALS: BP 131/59; BP_SYST 81
[2024-10-07 12:15] VITALS: BP 111/53
[2024-10-07 14:24] LABS: Body Fluid Mononuclear 82.8 %; Body Fluid Polymorphonuclear 17.2 %; Body Fluid WBC 122 /CUMM
[2024-10-07 14:27] LABS: Body Fluid Albumin < 1.0 g/dl; Body Fluid Amylase < 30 U/L; Body Fluid LDH < 90 U/L; Body Fluid Protein < 2.0 g/dl; Body Fluid Second Tech CMB
--- NOTE | 2024-10-07 14:28 | CM ---
Reviewed the chart notes and spoke with the patient at the bedside. The patient had paracentesis today. The patient resides with his spouse in a two story home with one step to enter. The patient was recently discharged from here to home
(09/27-10/02) with VN services. The patient has a cane, shower chair, and grab bars. The patient has been to [facility]. The patient confirmed his pharmacy of choice is the [facility]. continues to be available to
patient/family and is monitoring medical plan for needs at discharge.
Plan: Discharge to home with resumption of VN services. Referral sent in [facility].
[2024-10-07 16:40] VITALS: BP 120/45
[2024-10-07 23:01] VITALS: BP 127/61
[2024-10-08] VITALS (7 sets, daily range): BP systolic 116–126; BP diastolic 35–79; BMI 26.6
[2024-10-08 05:26] LABS: Hematocrit 21.3 % (39.0-52.0); Hemoglobin 6.8 g/dL (13.0-18.0); Mean Corp Hgb Conc. 31.9 g/dL (33.0-37.0); Mean Corpuscular Hgb 32.1 pg (27.0-31.0); Mean Corpuscular Volume 100.5 fL (80.0-94.0); Platelet Count 58 10^3/uL (130-400); Red Blood Cell Count 2.12 10^6/uL (4.70-6.10); Red Cell Dist. Width 16.7 % (11.5-14.5); White Blood Cell Count 3.5 10^3/uL (4.8-10.8)
[2024-10-08 05:30] LABS: ALT (SGPT) 16 U/L (0-50); AST (SGOT) 36 U/L (17-59); Albumin 2.8 g/dl (3.5-5.0); Alkaline Phosphatase 60 U/L (38-126); Blood Urea Nitrogen 16 mg/dl (9-20); Calcium 8.1 mg/dl (8.4-10.2); Carbon Dioxide 25 mmol/L (22-30); Chloride 110 mmol/L (98-107); Estimated Creatinine Clearance 100 ml/min; Glucose 101 mg/dl (70-99); Potassium 4.1 mmol/L (3.5-5.1); Sodium 140 mmol/L (135-145); Total Bilirubin 2.7 mg/dl (0.2-1.3); Total Protein 4.9 g/dl (6.3-8.2); eGFR > 60.00
[2024-10-08] MEDS: SYMBICORT 160/4.5 MCG INHALER INH ×2 (07:28→20:16)
[2024-10-08] MEDS: VIBRAMYCIN 100 MG PO (09:06)
[2024-10-08] MEDS: PROTONIX 40 MG PO ×2 (09:06→20:58)
[2024-10-08] MEDS: DUPHALAC/CHRONULAC 20 GRAMS PO ×2 (09:06→15:10)
[2024-10-08] MEDS: ALDACTONE 25 MG PO (09:07)
[2024-10-08] MEDS: MAGNESIUM OXIDE 500 MG PO ×2 (09:07→20:58)
[2024-10-08] MEDS: FEOSOL 325 MG PO (09:07)
[2024-10-08] MEDS: VITAMIN B1 100 MG PO (09:07)
[2024-10-08] MEDS: LASIX 20 MG PO (09:07)
[2024-10-08] MEDS: XIFAXAN 550 MG PO ×2 (09:07→20:58)
[2024-10-08] MEDS: PREPARATION H OINTMENT 1 APPLIC RECTAL ×2 (09:08→21:02)
[2024-10-08] MEDS: DESENEX/MITRAZOL/ZEASORB 1 APPLIC TOPICAL ×2 (09:08→21:00)
[2024-10-08] MEDS: CHLORASEPTIC/SORE THROAT SPRAY 1 SPRAY PO (09:09)
[2024-10-08] MEDS: ULTRAM 50 MG PO ×2 (09:15→20:58)
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
--- NOTE | 2024-10-08 12:33 | W.PN.HOSP.TC ---
Today's Communication/Plan
-
Monitor vital signs see plan
Transfuse 1 unit of blood today
Monitor mental status
Assessment / Plan
Assessment / Plan
Gen: NAD, AAOx3.
Eyes: EOMI, PERRLA, mild scleral icterus.
Neck: supple.
CV: RRR, +S1/S2, 2/6 systolic murmur
Resp: CTAB, no rales, wheezes, or rhonchi.
Abd: +BS, soft
Skin: No rashes.
Neuro: CN 2-12 intact, non-focal.
Psych: Normal mood and affect.
Acute hepatic encephalopathy due to end-stage liver disease due to alcoholic cirrhosis:
-history consistent with acute hepatic encephalopathy despite ammonia < 9 on admission
-c/s IR for Dx/Tx paracentesis; s/p para 10/07. Now on prophylactic Doxy.
-recent SBP, 10/06/24 was last day abx
-cont Lactulose/Lasix/Rifaximin/Aldactone
His waxing and waning mental status likely secondary to ongoing hepatic encephalopathy
Anemia of chronic disease:
-Transfuse for hemoglobin less than 7
Hemoglobin 12/2 to 6.8, transfuse 1 unit and monitor.
Other problems:
Thrombocytopenia due to end-stage liver disease
Recurrent upper GI bleeding likely secondary to portal hypertensive gastropathy
h/o gastric varices s/p gastric artery coiling 09/2024
HCV s/p tx with Epclusa
Chronic pain
Essential hypertension: Cont lasix/aldactone
GERD: Cont PPI
h/o skin cancer s/p Mohs surgery
Anxiety
COPD: Cont Symbicort/Spiriva
FULL/
I spent a total of 52 minutes with the patient or on the floor. More than 50% of this time involved counseling and coordination of care.
Anticipated Discharge: 24 - 48 hours
Subjective/Interval History
-
Date of Service: October 08, 2024
denies pain
Objective Data
-
Labs:
Laboratory Results
10/08/24
04:23
WBC 3.5 L
Hgb 6.8 L*
Hct 21.3 L
Plt Count 58 L
Sodium 140
Potassium 4.1
Chloride 110 H
Carbon Dioxide 25
BUN 16
Creatinine 0.8
Glucose 101 H
Calcium 8.1 L
Total Bilirubin 2.7 H
AST 36
ALT 16
Alkaline Phosphatase 60
Vital Signs:
Vital Signs
Temp Pulse Resp BP Pulse Ox
98.4 F 79 17 116/35 97
10/08/24 11:20 10/08/24 11:20 10/08/24 11:20 10/08/24 11:20 10/08/24 11:20
I&O
10/07/24 10/08/24 10/09/24
06:59 06:59 06:59
Intake Total 440 / 440 960 / 960
Balance 440 / 440 960 / 960
--- NOTE | 2024-10-08 16:20 | PTCARENOTE ---
Patient c/o tooth ache on R side of mouth throughout shift, sore throat spray provided to patient, patient medicated with PRN tramadol this AM - see JAN. Patient with cracked tooth on R side of mouth upon assessment. Patient states pain just started
this AM. MD made aware, assessed tooth at bedside, no new orders at this time.
--- NOTE | 2024-10-08 16:30 | PTCARENOTE ---
Patient received 1 unit PRBC through L midline. Patient tolerated infusion, VSS, states no concerns.
[2024-10-08] MEDS: DUPHALAC/CHRONULAC PO (22:13)
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
[2024-10-09 07:05] VITALS: BP 125/64
[2024-10-09 07:05] LABS: Hemoglobin 7.7 g/dL (13.0-18.0); Mean Corp Hgb Conc. 33.5 g/dL (33.0-37.0); Mean Corpuscular Volume 98.7 fL (80.0-94.0); Mean Platelet Volume 9.5 fL (7.4-10.4); Platelet Count 58 10^3/uL (130-400); Red Blood Cell Count 2.33 10^6/uL (4.70-6.10); White Blood Cell Count 3.8 10^3/uL (4.8-10.8)
[2024-10-09] MEDS: SYMBICORT 160/4.5 MCG INHALER INH (08:11)
[2024-10-09] MEDS: VITAMIN B1 100 MG PO (08:12)
[2024-10-09] MEDS: ALDACTONE 25 MG PO (08:12)
[2024-10-09] MEDS: FEOSOL 325 MG PO (08:12)
[2024-10-09] MEDS: MAGNESIUM OXIDE 500 MG PO (08:12)
[2024-10-09] MEDS: VIBRAMYCIN 100 MG PO (08:12)
[2024-10-09] MEDS: XIFAXAN 550 MG PO (08:13)
[2024-10-09] MEDS: PREPARATION H OINTMENT 1 APPLIC RECTAL (08:13)
[2024-10-09] MEDS: LASIX 20 MG PO (08:13)
[2024-10-09] MEDS: PROTONIX 40 MG PO (08:13)
[2024-10-09] MEDS: DESENEX/MITRAZOL/ZEASORB 1 APPLIC TOPICAL (08:14)
[2024-10-09] MEDS: ULTRAM 50 MG PO (08:22)
[2024-10-09] MEDS: DUPHALAC/CHRONULAC 20 GRAMS PO (08:23)
[2024-10-09 08:55] VITALS: BP 126/61; PULSE 87; O2SAT 90
[2024-10-09 09:15] VITALS: BP 126/61; PULSE 87; O2SAT 90
--- NOTE | 2024-10-09 10:06 | CM ---
Addendum entered by Kirti Haile 10/09/24 14:36:
Home with VN.
Original Note:
Patient seen bedside.
Patient eating breakfast.
Medsitter in room, called out for spouse, thought she was here.
Patient denies home care needs, will continue to follow for needs, PT/OT (P).
[facility] prior admission.
Plan: home with possible home care needs once medically stable.
--- NOTE | 2024-10-09 13:06 | W.PN.HOSP.TC ---
Today's Communication/Plan
-
monitor vitals
see plan
dc today
hgb 7.7
called spouse; left voicemail
time of discharge 38 minutes
Assessment / Plan
Assessment / Plan
Gen: NAD, AAOx3.
Eyes: EOMI, PERRLA, mild scleral icterus.
Neck: supple.
CV: RRR, +S1/S2, 2/6 systolic murmur
Resp: CTAB, no rales, wheezes, or rhonchi.
Abd: +BS, soft
Skin: No rashes.
Neuro: CN 2-12 intact, non-focal.
Psych: Normal mood and affect.
Acute hepatic encephalopathy due to end-stage liver disease due to alcoholic cirrhosis:
-history consistent with acute hepatic encephalopathy despite ammonia < 9 on admission
-c/s IR for Dx/Tx paracentesis; s/p para 10/07. Now on prophylactic Doxy.
-recent SBP, 10/06/24 was last day abx
-cont Lactulose/Lasix/Rifaximin/Aldactone
His waxing and waning mental status likely secondary to ongoing hepatic encephalopathy; patient is claiming he is not drinking anymore. currently AAOx3. advised him to see neurology outpatient
also has right molar tooth pain; recommended dentist outpatient and likely would need tooth extraction. no fever. no difficulty swallowing
Anemia of chronic disease:
-Transfuse for hemoglobin less than 7
Hemoglobin 12/2 to 6.8, s/p 1 unit and now hgb 7.7
Thrombocytopenia likely from cirrhosis
Monitor
Other problems:
Thrombocytopenia due to end-stage liver disease
Recurrent upper GI bleeding likely secondary to portal hypertensive gastropathy
h/o gastric varices s/p gastric artery coiling 09/2024
HCV s/p tx with Epclusa
Chronic pain
Essential hypertension: Cont lasix/aldactone
GERD: Cont PPI
h/o skin cancer s/p Mohs surgery
Anxiety
COPD: Cont Symbicort/Spiriva
FULL/
Anticipated Discharge: Today
Subjective/Interval History
-
Date of Service: October 09, 2024
denies pain
Objective Data
-
Labs:
Laboratory Results
10/09/24
05:45
WBC 3.8 L
Hgb 7.7 L
Hct 23.0 L
Plt Count 58 L
Vital Signs:
Vital Signs
Temp Pulse Resp BP Pulse Ox
98.5 F 87 16 125/64 94
10/09/24 07:05 10/09/24 08:13 10/09/24 07:05 10/09/24 08:13 10/09/24 09:36
I&O
10/08/24 10/09/24 10/10/24
06:59 06:59 06:59
Intake Total 960 / 960 730 / 730
Balance 960 / 960 730 / 730
--- NOTE | 2024-10-09 13:18 | W.DCSUMMARY ---
Discharge Summary
Discharge Data
Date of Admission: 10/06/24
Date of Discharge: 10/09/24
-
Pending Results: No
Hospital Course
59-year-old male with past medical history of alcoholic liver cirrhosis, anemia of chronic disease, thrombocytopenia, recurrent GI bleeding secondary to portal hypertensive gastropathy, gastric varices, HCV, chronic pain, essential hypertension,
GERD, history of skin cancer, anxiety, COPD came to the hospital with acute hepatic encephalopathy secondary to alcoholic cirrhosis. While patient was in the hospital he also required paracentesis which improved his symptoms. Patient waxing and
waning mental status was likely thought was secondary to ongoing hepatic encephalopathy. Patient claimed to be not consuming alcohol anymore. However given his symptoms, his trazodone was decreased. He also had some right tooth pain for which she
was recommended to follow-up with dentist outpatient. His hospital course was complicated with anemia where he required blood transfusion. Once his symptoms continue to improve, he was then discharged home with instructions to follow-up with all
her physicians outpatient including his rn unit manager.
Discharge Plan
-
Patient Disposition: Home (Routine Discharge)
Discharge Diagnosis/Procedures: Hepatic encephalopathy
Liver cirrhosis
Anemia of chronic disease
Thrombocytopenia
Diet: As tolerated
Activity: As tolerated
Driving Restrictions: As prior to admission
Bathing Restrictions: None
Blood Work: cbc next week with pcp
Activity Restrictions/Additional Instructions:
Please follow-up with rn unit manager outpatient
Referrals:
Jonny Pimentel MD [Active] -
Drake Goss DO [Family Provider] - in less than 1 week
Prescriptions:
Continued
thiamine HCl (vitamin B1) 100 mg tablet
100 mg PO DAILY
Breztri Aerosphere 160-9-4.8 mcg/actuation Hfa Aerosol Inhaler
2 inh INHALATION R BID
Xifaxan 550 mg Tablet
550 mg PO BID
magnesium oxide 400 mg magnesium Tablet
400 mg PO BID
lactulose 20 gram/30 mL Solution
20 g PO TID Qty: 2880 0RF
pantoprazole [Protonix] 40 mg tablet,delayed release (DR/EC)
40 mg PO BID
ondansetron HCl 4 mg Tablet
4 mg PO DAILYPRN PRN (Reason: nasuea)
lidocaine 4 % adhesive patch,medicated
1 patch topical DAILYPRN PRN (Reason: right knee and right shoulder)
miconazole nitrate [Miconazorb AF] 2 % powder
1 applic topical BID
tramadol 50 mg tablet
50 mg PO BIDPRN PRN (Reason: moderate-severe pain)
spironolactone 25 mg tablet
25 mg PO DAILY
ferrous sulfate [FeroSul] 325 mg (65 mg iron) tablet
325 mg PO DAILY
Hemorrhoidal(PE-min oil-darling) 0.25-14-74.9 % ointment
1 applic [place] BID
doxycycline hyclate 100 mg capsule
100 mg PO DAILY Qty: 30 0RF
Rx Instructions:
After you finish the IV antibiotics on 10/06/24
furosemide 20 mg tablet
20 mg PO DAILY
Changed
trazodone 50 mg tablet
25 mg PO HSPRN PRN (Reason: sleep ) Qty: 0 0RF
hydroxyzine HCl 25 mg tablet
25 mg PO BIDPRN PRN (Reason: itching /anxiety) Qty: 0 0RF
Discontinued
Ertapenem [Invanz] 1000 MG
0.9% Sodium Chloride [Nss] 50 ML
120 mls/hr IV Q24H
Ordered By: Jorge Guerrero MD
Last Taken: 10/06/24
Patient Comments:
last dose on 10/06/24 then start doxycycline
Discharge Orders:
Discharge Patient (As Directed); Ordered 10/09/24
Ordered By: Curt Oden
Discharge Date and Time
Discharge Date/Time: 10/09/24 14:53
Print Language: ARMENIAN
[2024-10-09 14:35] VITALS: BP 119/63
== END 2024-10-09 14:53 | disposition home health service (06) | DRG 432 ==
LOC: 2 NORTH 18:52
PROVIDERS: Internal Medicine; Radiology Vascular & Interventional Radiology; ADMITTING PHYSICIAN Internal Medicine; ATTENDING PHYSICIAN Internal Medicine; EMERGENCY PHYSICIAN Emergency Medicine; FAMILY PHYSICIAN Internal Medicine
PROC: 0W9G3ZZ Drainage of Peritoneal Cavity, Percutaneous Approach (ICD-10-PCS; 2024-10-07)
PROC: 30233N1 Transfusion of Nonautologous Red Blood Cells into Peripheral Vein, Percutaneous Approach (ICD-10-PCS; 2024-10-08)
DX: K70.31 Alcoholic cirrhosis of liver with ascites (principal); N18.6 End stage renal disease; I12.0 Hypertensive chronic kidney disease with stage 5 chronic kidney disease or end stage renal disease; K76.6 Portal hypertension; F13.20 Sedative, hypnotic or anxiolytic dependence, uncomplicated; K76.82 Hepatic encephalopathy; K70.40 Alcoholic hepatic failure without coma; Z86.16 Personal history of COVID-19; D63.8 Anemia in other chronic diseases classified elsewhere; Z76.82 Awaiting organ transplant status; J44.9 Chronic obstructive pulmonary disease, unspecified; K31.89 Other diseases of stomach and duodenum; Z85.828 Personal history of other malignant neoplasm of skin; I86.4 Gastric varices; F41.9 Anxiety disorder, unspecified; G89.29 Other chronic pain; K21.9 Gastro-esophageal reflux disease without esophagitis; D69.59 Other secondary thrombocytopenia; K08.89 Other specified disorders of teeth and supporting structures; B18.2 Chronic viral hepatitis C; K57.30 Diverticulosis of large intestine without perforation or abscess without bleeding; Z86.73 Personal history of transient ischemic attack (TIA), and cerebral infarction without residual deficits; D50.9 Iron deficiency anemia, unspecified; K42.9 Umbilical hernia without obstruction or gangrene; F17.210 Nicotine dependence, cigarettes, uncomplicated
CPT/HCPCS: 49083; 80048; 80053; 82042; 82140; 82150; 83615; 83690; 84157; 85025; 85027; 86850; 86900; 86901; 86920; 86922; 87015; 87070; 87205; 89051; 94640; 97116; 97162; 97166; 99284; P9016

== ENCOUNTER 2024-10-10 13:13 | Emergency (ER) | payer BC, SELFPAY ==
[2024-10-10 13:27] VITALS: BP 123/50
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
[2024-10-10 15:06] VITALS: BP 119/62
[2024-10-10 15:22] VITALS: BP 119/62
[2024-10-10 16:19] LABS: % Basophils 0.8 % (0-2); % Eosinophils 5.8 % (0-6); % Immature Granulocytes 0.3 % (0-0.5); % Lymphocytes 15.6 % (20.5-51.1); % Monocytes 7.8 % (1.7-9.3); % Neutrophils 69.7 % (42.2-75.2); Absolute Eosinophils 0.2 10^3/uL (0-0.7); Absolute Lymphocytes 0.6 10^3/uL (1.2-3.4); Absolute Monocytes 0.3 10^3/uL (0.1-0.6); Absolute Neutrophils 2.5 10^3/uL (1.4-6.5); Hematocrit 24.3 % (39.0-52.0); Mean Corp Hgb Conc. 32.9 g/dL (33.0-37.0); Mean Corpuscular Hgb 32.7 pg (27.0-31.0); Mean Corpuscular Volume 99.2 fL (80.0-94.0); Mean Platelet Volume 9.1 fL (7.4-10.4); Nucleated Red Blood Cells % 0 % (-); Platelet Count 52 10^3/uL (130-400); Red Blood Cell Count 2.45 10^6/uL (4.70-6.10); Red Cell Dist. Width 16.7 % (11.5-14.5); White Blood Cell Count 3.6 10^3/uL (4.8-10.8)
[2024-10-10 16:24] LABS: Ammonia 17 umol/L (9-30)
[2024-10-10 16:28] LABS: ALT (SGPT) 17 U/L (0-50); AST (SGOT) 52 U/L (17-59); Albumin 3.3 g/dl (3.5-5.0); Alkaline Phosphatase 43 U/L (38-126); Blood Urea Nitrogen 9 mg/dl (9-20); Calcium 8.3 mg/dl (8.4-10.2); Carbon Dioxide 22 mmol/L (22-30); Chloride 110 mmol/L (98-107); Glucose 93 mg/dl (70-99); Potassium 4.6 mmol/L (3.5-5.1); Sodium 140 mmol/L (135-145); Total Bilirubin 3.5 mg/dl (0.2-1.3); Total Protein 5.7 g/dl (6.3-8.2); eGFR > 60.00
[2024-10-10 17:14] VITALS: BP 117/64
[2024-10-10 18:00] VITALS: BP 114/62
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
== END 2024-10-10 18:39 | disposition left against medical advice (07) ==
LOC: EMR 13:13
PROVIDERS: Physician Assistant; EMERGENCY PHYSICIAN Emergency Medicine; FAMILY PHYSICIAN Internal Medicine
DX: R41.0 Disorientation, unspecified (principal); K70.31 Alcoholic cirrhosis of liver with ascites; K72.10 Chronic hepatic failure without coma; F17.200 Nicotine dependence, unspecified, uncomplicated; I10 Essential (primary) hypertension; J44.9 Chronic obstructive pulmonary disease, unspecified; Z86.73 Personal history of transient ischemic attack (TIA), and cerebral infarction without residual deficits; Z53.29 Procedure and treatment not carried out because of patient's decision for other reasons
CPT/HCPCS: 99284; 70450; 80053; 82140; 85025

== ENCOUNTER 2024-10-11 19:11 | Inpatient (IN) | payer BC, SELFPAY ==
[2024-10-11] VITALS (12 sets, daily range): BP systolic 95–127; BP diastolic 51–87; BMI 25.7
--- NOTE | 2024-10-11 15:05 | EDRN ---
this RN entered the pts room to introduce this RN to the pt and the pts family, the pts stood up and said, 'are you a tech or a nurse?' this RN responded and stated this RN's name and stated that this RN is a nurse, this RN then proceeded to
place the pt on the computational theory scientist and saw that the pt was 88% on RA, this RN placed 3L NC on the pt and the pts Sp02 went up to 94%, this RN notified Dr. Benoit, the pts then proceeded to state to this RN, 'I know what he needs done, he
needs a chest xray, he needs labs, and i need a urine sent on him', this RN stated that the provider Dr. Tyler would place the orders and that those things would certainly be done, the pts then proceeded to say, 'Yeah well we need them
done today and i need to know what's going on with him and he is a bit combative at times', this RN stated that [facility] would take care of her and that Dr. Benoit would be in to the pts room shortly
--- NOTE | 2024-10-11 15:08 | ED.GENMED ---
History of Present Illness
General
Chief Complaint: Change in Mental Status
Source: patient, records, family and child care specialist
Exam Limitations: none
Time Seen by Provider: 10/11/24 15:06
Nursing documentation reviewed up to this point in time: agreed with
History of Present Illness
History of Present Illness:
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 Patient was seen here yesterday for the same thing. 3 days ago the patient had paracentesis 4
L removed. Patient is bleeding from his mouth. Patient denies shortness of breath. Patient denies chest pain. Patient denies fever or chills. Patient does feel distended. Patient has chronic edema of his lower extremities. According to the
patient's , daughter and nurse caregiver the patient continues to be more confused and there is concern about bacterial infection. Patient is not coughing, and no nasal congestion or sore throat. Patient did have COVID 2 weeks ago but seems to
have improved.
Past History
Past History
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 GI bleed, portal gastropathy, hemorrhoids, umbilical hernia, CVA)
ED Past Surgical History: Other
Social History
Tobacco: Smoker
Alcohol: Former
Drug: None
Personal:
Living: with family
Employment: Employed
Family History
Family History: Diabetes and Other
Review of Systems
Review of Systems
All Other Systems: ROS reviewed and negative except as documented in HPI and ROS
Constitutional: Reports fatigue; Denies fever or chills
EENT: Reports no symptoms
Respiratory: Reports no symptoms
Cardiac: Reports no symptoms
ABD/GI: Reports no symptoms
: Reports dark urine (Chronic)
Musculoskeletal: Reports edema (Chronic)
Skin: Reports no symptoms
Neurological: Reports other (Confusion)
Hematologic/Lymphatic: Reports bleeding (And mouth) and bruising
Phy Exam
Physical Exam
Physical Exam:
Physical Exam
General: No apparent distress, alert and oriented to person and place, well nourished, mildly dry mucous membranes
HENT: Normocephalic, supple with no lymphadenopathy, no thyromegaly. Patient with very poor dentition and multiple, significant dental caries and a site of bleeding was not able to be found. Nothing in the sublingual
region.
Eyes: Clear sclera, conjuctiva without injection
Heart: Regular rhythm and rate. No S3, S4. No murmur. No NVD
Lungs: No respiratory distress, no stridor, lung sounds have rhonchi and wheezing in the right base and coarse but clear in the left, chest wall symmetrical and nontender
Abdomen: distended with dilated veins, nontender, no CVA tenderness, BS good
Neuro: Alert and oriented x 2, CN II - XII intact, no motor focality
Skin: Pale with scattered ecchymosis
Psychiatric: well kept. interactive and cooperative
Extremities: Nocyanosis, tenderness. +1-2 chronic pitting edema from the knees distally bilaterally
Sepsis
Sepsis Screening
Sepsis Assessment: Sepsis Ruled Out
Sepsis Screen
Sepsis Screen: Sepsis Ruled Out
Date: 10/11/24
Time: 20:34
Course
Orders/Labs/Results
Orders:
Orders
10/11/24 13:28
EKG [Electrocardiogram (*1)] Urgent
Reason for Study: Shortness of Breath
CR Chest - 2 Views Urgent
Comment:
Reason For Exam: cough
10/11/24 13:29
EKG- Treatment ONCE
10/11/24 15:54
Stevens [Stevens Placement- Treatment] ONCE
Reason for insertion: Acute Retention
Catheter- Indwelling As Directed
Reason for insertion: Acute Retention
Discontinue Date/Time: 10/14/24 0600
10/11/24 16:00
Ammonia Urgent
Complete Blood Count/With Diff Urgent
Comprehensive Metabolic Panel Urgent
Lactic Acid Q4H
Comment: CANCEL 2nd LACTIC ACID IF 1st LACTIC ACID IS LESS THAN 2
Magnesium Urgent
NT-proBNP Urgent
Comment: ADDON
PTT Urgent
Prothrombin Time Urgent
Urinalysis Reflex To Culture Urgent
Date Specimen was Collected: 10/11/24
Time Specimen was Collected: 15:53
Urine Microscopic Reflex Cult Urgent
Blood Culture Q30M
LOVE Source: Blood/Venous
Specimen Description:
Blood Culture Q30M
LOVE Source: Blood/Venous
Specimen Description:
Urine Culture Urgent
LOVE Source: U
Specimen Description:
Date Specimen was Collected: 10/11/24
Time Specimen was Collected: 15:53
10/11/24 16:18
Morphine Sulfate 4 mg IV NOW STA
Ondansetron Injectable [Zofran] 4 mg IV NOW STA
10/11/24 17:08
CefTRIAXone [Rocephin] 1,000 mg IV NOW STA
Ipratropium/Albuterol Sulfate [Duoneb] 3 ml INH R NOW STA
10/11/24 17:36
Doxycycline Hyclate [Vibramycin] 100 mg 0.9% Sodium Chloride 250 ml [Nss] 250 ml IV NOW
10/11/24 18:25
Stool for occult blood [Hemetest Stools] As Directed
10/11/24 18:42
Admit/Transfer Patient As Directed
Co-Sign Provider:
Level of Care: Inpatient admission
Assign to:: IMU- Intermediate Care
Physician / Group: Brian Mendes
Diagnosis: toxic metabolic encephalopathy
Reason for Hospitalization: toxic metabolic encephalopathy
Expected length of stay greater than two midnights?: Yes
ELOS- Estimated Length of Stay in days: 3
I certify the patient meets the requirements for IP care: Yes
PRN Pain Medication Management As Directed
May give lesser potent ordered pain med per pt: Yes
preference::
Protocol:: Medication orders for pain may be administered in a
manner that supports deferring to patient preference
when the pt is:
- Requesting an ordered lesser potent pain medication.
Least to most potent pain medications are defined
as: acetaminophen < NSAID < tramadol < opioids
(morphine, oxycodone, hydromorphone).
- Requesting a lesser dose of the same medication IF
ORDERED.
- Requesting a less intrusive route of administration
if both routes are prescribed by the provider (PO <
IV).
10/11/24 18:45
Code Status As Directed
Resuscitation Status: Full Code
10/11/24 18:55
Add On- LAB Urgent
Tests Added?: Pro-BNP
Abnormal Lab Results
10/11/24
16:00
WBC 3.4 L 10^3/uL
(4.8-10.8)
RBC 2.60 L 10^6/uL
(4.70-6.10)
Hgb 8.3 L g/dL
(13.0-18.0)
Hct 25.9 L %
(39.0-52.0)
MCV 99.6 H fL
(80.0-94.0)
MCH 31.9 H pg
(27.0-31.0)
MCHC 32.0 L g/dL
(33.0-37.0)
RDW 16.7 H %
(11.5-14.5)
Plt Count 60 L 10^3/uL
(130-400)
MPV 11.2 H fL
(7.4-10.4)
Absolute Lymphs (auto) 0.7 L 10^3/uL
(1.2-3.4)
Lymphocytes % 19.9 L %
(20.5-51.1)
Eosinophils % 6.2 H %
(0-6)
PT 21.2 H Sec
(11.4-14.6)
APTT 44.4 H Sec
(23.4-35.0)
Chloride 110 H mmol/L
(98-107)
Total Bilirubin 3.4 H mg/dl
(0.2-1.3)
Total Protein 5.6 L g/dl
(6.3-8.2)
Albumin 3.3 L g/dl
(3.5-5.0)
Urine Ketones Trace A
(Negative)
Ur Occult Blood Reflex 4+ A
(Negative)
Urine Nitrite (Reflex) Positive A
(Negative)
Urine Bilirubin 2+ A
(Negative)
Urine Urobilinogen 2+ A
(Neg - 1+)
Leukocyte Esterase Rfl 1+ A
(Negative)
Urine RBC 90-100 A /HPF
(0-2)
Urine Bacteria (Reflex) Many A
(Negative)
Urine Albumin (Reflex) 2+ A
(Neg - Trace)
10/11/24 16:00
10/11/24 16:00
Vital Signs
Initial and Last Documented VS:
Initial Vital Signs
Temp Pulse Resp BP Pulse Ox
98.6 F 62 20 101/59 88
10/11/24 13:20 10/11/24 13:20 10/11/24 13:20 10/11/24 13:20 10/11/24 13:20
Last Documented Vital Signs
Temp Pulse Resp BP Pulse Ox
98.5 F 76 20 117/87 96
10/11/24 15:47 10/11/24 18:44 10/11/24 18:44 10/11/24 18:44 10/11/24 18:44
*Radiology
Radiology exam reviewed: radiology read reviewed (Chest x-ray read is negative)
*Pulse Oximetry
Patient hypoxic: yes
Comment: Requiring 6 L of oxygen to get in the 90s
*EKG
Interpreted by ED Provider?: Yes
EKG Intrepretation Date: 10/11/24
EKG Intrepretation Time: 17:16
Interpretation: abnormal
Comparison EKG: no changes
Heart Rate: 79
Rate: normal
Rhythm: sinus
[place]: normal axis
Interval: normal MT interval and long QT
QRS Pattern: normal QRS
Ischemia: no ischemia
*Agricultural Engineering Technologist Interpretation
Rate: normal
Interpretation: normal
Heart Rate: 80
Rhythm: sinus
*Critical Care Note
Total Time (30-74mins, 75-104mins- exclusive of procedures): Not Applicable
Update Note
Update Note:
Patient's pO2 has been low the whole time in the emergency department and based on his physical exam send as though he is developing a pneumonia in the right base although the chest x-ray does not confirm that. Patient's white blood cell count is
suppressed and is normal. Same with the hemoglobin and platelets. Given the fact that the patient appears to be confused/more confused with send has a pneumonia we will start the patient on antibiotics. I placed the coud� catheter as the patient
is not able to give a urine and there was difficulty passing the cath. Urine shows blood and back to the white sounds. Patient will be admitted for confusion and abnormal chest sounds developed pneumonia.
ED Attending Note
-
Portions of this chart may have been created with voice recognition software.� Occasional wrong word or��sound alike� substitutions may have occurred due to the inherent limitations of voice recognition software.
Discharge Plan
Departure
Patient Disposition: Admit
Date of Disposition: 10/11/24
Time of Disposition: 17:19
Admit to: Telemetry
Admit to doctor: Hospitalist
Presentation/result/management discussed w/ accepting MD/DO: Hospitalist
Patient with high blood pressure during this ER visit?: No
Condition: Fair
Covid-19: Not Applicable
Discharge Problem:
Acute alteration in mental status, End stage liver disease, R/O pneumonia
Interventions
Interventions:
*Risk Screen - Suicide Last Done: 10/11/24 13:20
*General Assessment Last Done: 10/11/24 15:47
*Neglect/Abuse Screening Last Done: 10/11/24 13:20
ED- Fall Risk Assessment Last Done: 10/11/24 15:47
*ED COVID-19 Vaccine History Last Done: 10/11/24 15:47
ED- Pulmonary Assessment Last Done: 10/11/24 15:47
ED-Psychological Assessment Last Done: 10/11/24 15:47
ED- Neurological Assessment Last Done: 10/11/24 15:47
ED- Cardiac Assessment Last Done: 10/11/24 15:47
ED Swallowing Screen Last Done: 10/11/24 15:47
--- NOTE | 2024-10-11 15:15 | EDRN ---
Dr. Benoit currently at the pts bedside
--- NOTE | 2024-10-11 15:19 | EDRN ---
this RN attempted to place a PIV and before this RN could try the pts stated to this RN, 'He's a tough stick i want IV team putting an IV in', this RN paged IV team
--- NOTE | 2024-10-11 15:53 | EDRN ---
IV team currently at the pts bedside
--- NOTE | 2024-10-11 15:57 | EDRN ---
this RN brought Dr. Benoit to the pts bedside due to difficulty placing indwelling urinary catheter, Dr. Benoit requested a 20French coude tip indwelling urinary catheter and the provider was able to place catheter, sher in place and
secured with stat lock, IV team currently still at the pts bedside
--- NOTE | 2024-10-11 16:12 | EDRN ---
this RN noticed that the pts Sp02 dropped to 88% on 3L NC, this RN notified the provider Dr. Bneoit and titrated the pts 02 up to 6L NC, Sp02 remains at 92%, this RN was able to place a Left Hand #24 PIV, labs and urine were sent to lab, the
pts daughter and are currently still at the pts bedside, the pts was updated on the pts plan of care, will continue to monitor the pt closely
[2024-10-11] MEDS: ZOFRAN 4 MG IV (16:31)
[2024-10-11] MEDS: MORPHINE SULFATE 4 MG IV (16:32)
[2024-10-11 16:33] LABS: % Basophils 1.2 % (0-2); % Eosinophils 6.2 % (0-6); % Immature Granulocytes 0.3 % (0-0.5); % Lymphocytes 19.9 % (20.5-51.1); % Neutrophils 65.4 % (42.2-75.2); Absolute Eosinophils 0.2 10^3/uL (0-0.7); Absolute Lymphocytes 0.7 10^3/uL (1.2-3.4); Absolute Monocytes 0.2 10^3/uL (0.1-0.6); Absolute Neutrophils 2.2 10^3/uL (1.4-6.5); Ammonia 11 umol/L (9-30); Hematocrit 25.9 % (39.0-52.0); Hemoglobin 8.3 g/dL (13.0-18.0); Mean Corpuscular Hgb 31.9 pg (27.0-31.0); Mean Corpuscular Volume 99.6 fL (80.0-94.0); Mean Platelet Volume 11.2 fL (7.4-10.4); Nucleated Red Blood Cells % 0 % (-); Platelet Count 60 10^3/uL (130-400); Red Cell Dist. Width 16.7 % (11.5-14.5); White Blood Cell Count 3.4 10^3/uL (4.8-10.8)
[2024-10-11 16:35] LABS: ALT (SGPT) 17 U/L (0-50); AST (SGOT) 47 U/L (17-59); Albumin 3.3 g/dl (3.5-5.0); Alkaline Phosphatase 65 U/L (38-126); Blood Urea Nitrogen 12 mg/dl (9-20); Calcium 8.5 mg/dl (8.4-10.2); Carbon Dioxide 22 mmol/L (22-30); Chloride 110 mmol/L (98-107); Estimated Creatinine Clearance 92 ml/min; Glucose 90 mg/dl (70-99); Lactic Acid 1.1 mmol/L (0.7-2.0); Magnesium 1.6 mg/dl (1.6-2.3); Potassium 4.4 mmol/L (3.5-5.1); Sodium 140 mmol/L (135-145); Total Bilirubin 3.4 mg/dl (0.2-1.3); Total Protein 5.6 g/dl (6.3-8.2); eGFR > 60.00
[2024-10-11 16:39] LABS: Urine Albumin 2+ (Neg - Trace); Urine Bilirubin 2+ (Negative); Urine Character Clear (Clear); Urine Color Brown; Urine Glucose Negative (Negative); Urine Ketone Trace (Negative); Urine Leukocyte 1+ (Negative); Urine Nitrite Positive (Negative); Urine Occult Blood 4+ (Negative); Urine Specific Gravity 1.025 (<1.030); Urine Urobilinogen 2+ (Neg - 1+)
--- NOTE | 2024-10-11 16:59 | EDRN ---
the pt pressed the call caballero and this RN entered the room, the pts stated to this RN, 'I don't think the call caballero is working, we shouldn't have waited that long for you to come into the room', this RN apologized for the pt and the pts family's
wait, the pt stated that he needed to use the bed elena and this RN placed the pt on the bed elena, this RN noticed that the pts Sp02 is 90% on 6L NC, this RN notified Dr. Benoit of this, the pts also stated that she wanted IVF to be given to
her (the pt), this RN brought this up with Dr. Benoit and per the provider, IVF will not be administered, the pt is resting in stretcher in the lowest position, side rails up x2, call caballero within reach, HOB elevated, no s/s of
distress, will continue to monitor the pt closely
[2024-10-11 17:00] LABS: Urine Bacteria Many (Negative); Urine Red Blood Cell 90-100 /HPF (0-2)
--- NOTE | 2024-10-11 17:03 | EDRN ---
the pt pressed the call caballero and this RN entered the pts room, the pt stated that he needed to be taken off of the bed elena and that he was, 'Done pooping', this RN removed the bed elena from under the pt and the pt did not have a bowel movement, the
pt was repositioned in the stretcher for comfort, will continue to monitor the pt closely
--- NOTE | 2024-10-11 17:04 | EDRN ---
per the provider, this RN reached out to respiratory to notify them that the provider is requesting the pt to be placed on midflow
--- NOTE | 2024-10-11 17:08 | EDRN ---
Dr. Benoit is currently at the pts bedside, respiratory also at the pts bedside
[2024-10-11] MEDS: ROCEPHIN 1000 MG IV (17:25)
[2024-10-11] MEDS: DUONEB 3 ML INH (17:25)
--- NOTE | 2024-10-11 17:29 | HPS.HSE ---
Family Physician
-
Family Physician: INTERVIEWE UNKNOWN - PT NOT
Chief Complaint
-
change in mental status
History of Present Illness
Patient is a 59-year-old male with past medical history significant for anxiety, portal cirrhosis, thrombocytopenia, hypertension, hepatitis C, COPD, alcohol abuse, ascites, and alcohol cirrhosis who presented to [place] ED for evaluation of
increased confusion. Patient discharged 2 days ago for acute hepatic encephalopathy secondary to alcoholic cirrhosis. After returning home family claims patient had increased confusion and was seen in ED yesterday for evaluation and ultimately left
[facility]. Returned today with reports from family that patient continues to be more confused today with episodes of hallucinations. Patient denies any chest pain, shortness of breath, cough, nausea, vomiting, constipation, diarrhea or urinary symptoms.
Medical History
Past Medical History
Past Medical History: Reports Other
Additional Past Medical History:
Anxiety
Ascites
Portal cirrhosis
Thrombocytopenia
Hypertension
Hepatitis C
COPD
Bleeding hemorrhoids
Alcohol abuse
Ascites
Alcohol cirrhosis
Hx hepatic encephalopathy
Past Surgical History: Reports Other
Additional Past Surgical History:
Repair of spinal fluid leak
Teeth extraction
Social History
Tobacco: Smoker (reports 1 cigarette last 5 days and trying to quit)
Alcohol: Former (states last drink 8 months ago)
Drug: None
Personal:
Living: With Family
Employment: Disabled
Family History
Family History: Not pertinent
Allergies / Home Medications
Allergies reflects when Allergies were last updated in [employer].
Home Medications with original date entered in [employer]
Allergy/Medication List:
Allergies
Allergy/AdvReac Type Severity Reaction Status Date / Time
No Known Allergies Allergy Verified 10/11/24 13:20
Home Medications
thiamine HCl (vitamin B1) 100 mg tablet 100 mg PO DAILY Supplement 03/13/24
budesonide 160 mcg-glycopyr 9 mcg-formot 4.8 mcg/actuation HFA inhaler (Breztri Aerosphere) 2 inh inhalation R BID Lung/Breathing Issues 04/11/24
magnesium oxide 400 mg PO BID Supplement 06/28/24
rifaximin 550 mg tablet (Xifaxan) 550 mg PO BID hepatic encephalopathy 06/28/24
lactulose 20 gram/30 mL oral solution 20 g (30 mL) PO TID Liver issues #2,880 mL 07/01/24
pantoprazole 40 mg tablet,delayed release (Protonix) 40 mg PO BID Gastrointestinal Issue 08/02/24
lidocaine 4 % topical patch 1 patch topical DAILYPRN PRN right knee and right shoulder 09/08/24
miconazole nitrate 2 % topical powder (Miconazorb AF) 1 applic topical BID groin/scrotum 09/08/24
ondansetron HCl 4 mg tablet 4 mg PO DAILYPRN PRN nasuea 09/08/24
ferrous sulfate 325 mg (65 mg iron) tablet (FeroSul) 325 mg PO DAILY Supplement 09/26/24
phenylephrine 0.25 %-mineral oil 14 %-petrolatm 74.9 % rectal ointment (Hemorrhoidal(phenyleph-min oil-petrolat)) 1 applic [place] BID hemorrhoids 09/26/24
spironolactone 25 mg tablet 25 mg PO DAILY Liver cirrhosis 09/26/24
tramadol 50 mg tablet 50 mg PO BIDPRN PRN moderate-severe pain 09/26/24
doxycycline hyclate 100 mg capsule 100 mg PO DAILY #30 caps 10/02/24
furosemide 20 mg tablet 20 mg PO DAILY Fluid retention/Swelling 10/06/24
hydroxyzine HCl 25 mg tablet 25 mg PO BIDPRN PRN itching /anxiety #0 tabs 10/09/24
trazodone 50 mg tablet 25 mg (1/2 x 50 mg) PO HSPRN PRN sleep #0 tabs 10/09/24
Review of Systems
-
Unable to obtain full review of systems at this time due to: Other (acute confusion present)
History Source: Patient
Constitutional: Reports No Symptoms
EENT: Reports No Symptoms
Respiratory: Reports No Symptoms
Cardiac: Reports No Symptoms
Abdomen/GI: Reports No Symptoms
: Reports No Symptoms
Musculoskeletal: Reports No Symptoms
Skin: Reports No Symptoms
Neurological: Reports Other (increased confusion, observed hallucinations by family memebers)
Endocrine: Reports No Symptoms
Hematologic/Lymphatic: Reports No Symptoms
Psych: Reports No Symptoms
Physical Exam
Vital Signs
Vital Signs
Temp Pulse Resp BP Pulse Ox
98.5 F 75 15 127/62 94
10/11/24 15:47 10/11/24 16:12 10/11/24 16:12 10/11/24 16:12 10/11/24 16:12
Physical Exam
General: Well Developed, Well Nourished, No Apparent Distress, Comfortable and Conversant
HEENT: NormoCephalic, Moist mucous membranes, Atraumatic, [place] Conjunctivae, Nose Appears Normal, Ears Appear Normal and Other (broken lower right tooth)
Respiratory: Clear, Wheezes and Non Labored Respirations; No Rales, Rhonchi or Crackles
Cardiac: S1/S2 and Regular Rhythm; No Murmur, Rub or Gallop
Breast: Deferred by me
GI: Soft, Normal Bowel Sounds and Tender; No Organomegaly
Rectal: Deferred by Provider
Genito-urinary: Stevens (ED placed for urinary retention)
Musculoskeletal: No Clubbing, No Cyanosis and No Edema
Skin: Warm and IV/Catheter Site; No Rash
Neuro: Awake, Alert and Nonfocal/grossly intact
Hematologic/Lymphatic: No Lymphadenopathy
Psych: Calm and Intact Judgment/Insight
Laboratory Results
-
10/11/24 16:00
10/11/24 16:00
Laboratory Results
PT Cancelled 10/11/24 16:00
INR Cancelled 10/11/24 16:00
APTT Cancelled 10/11/24 16:00
Lactic Acid Cancelled 10/11/24 19:30
Total Bilirubin 3.4 mg/dl (0.2-1.3) H 10/11/24 16:00
AST 47 U/L (17-59) 10/11/24 16:00
ALT 17 U/L (0-50) 10/11/24 16:00
Alkaline Phosphatase 65 U/L (38-126) 10/11/24 16:00
Data Reviewed
-
Diagnostic Radiology: Report Reviewed by me (CXR: No active cardiopulmonary disease.)
Medical Tests (Nuc Med, Echo, EKG etc): Report Reviewed by me (EKG: NORMAL SINUS RHYTHM, PROLONGED QT)
Lab Data: Labs Reviewed by me (WBC 3.4, Hgb 8.3, Hct 25.9, T Bilirubin 3.4)
Impression/Plan
-
IMPRESSION/PLAN:
#Toxic Metabolic encephalopathy
increased confusion and family observed visual and audible hallucinations
recent Covid infection
Hx hepatic encephalopathy, ammonia 11
right lower molar cracked with pain
Hx ascites r/t portal vein HTN from decompensated cirrhosis
- Admit to IMU
- empiric IV Zosyn
- continue lactulose and rifaximin
- hold furesemide and aldaction for now
- Consult GI
- Consult IR
- Consult ID
- follow up with dentist outpatient
#thrombocytopenia
hgb 8.3
anemia of chronic disease
- monitor H/H
- transfuse for Hgb <7
#Hypertension
- hold furosemide and Aldactone for now
#COPD
- continue breztri
#anxiety
- trazadone HS PRN
Code Status: Full Code
DVT Px: SCDs
--- NOTE | 2024-10-11 17:34 | EDRN ---
the pt was placed on 8L midflow by respiratory, the pt is currently 96%, no c/o SOB, no c/o chest pain, ABX administered and breathing treatment currently running, awaiting on Vibramycin from the pharmacy
--- NOTE | 2024-10-11 17:37 | EDRN ---
this RN noticed that the pt was off of the data center solutions architect and Sp02 monitor, this RN entered the pts room and the pt was seen pulling off his leads and attempting to get out of bed, the pt stated to this RN, 'I have to pee i need to go to the
bathroom, i need to get up', this RN educated the pt that he has an indwelling urinary catheter and that he can just pee, and this RN also educated the pt on the importance of not pulling at equipment due to the pt being on oxygen and this RN
wanting to monitor the pts heart rhythm and Sp02, the pt stated to this RN, 'alright i'll keep everything on and I can just pee?', this RN reinterated that the pt can just urinate due to having an indwelling urinary catheter, the pt is resting in
stretcher in the lowest position, side rails up x2, call caballero within reach, HOB elevated, no s/s of distress, will continue to monitor the pt closely
[2024-10-11 17:54] LABS: APTT 44.4 Sec (23.4-35.0); INR 1.78; PT 21.2 Sec (11.4-14.6)
--- NOTE | 2024-10-11 18:05 | EDRN ---
hospitalist currently at the pts bedside
--- NOTE | 2024-10-11 18:13 | W.PN.UPDATE ---
Update Note
Progress Note Update
I could not get any information from the patient is confused
Information gathered by chart review and speaking with the ER staff.
This note serves as an addendum to the H&P by martial arts instructor GUANAKITO Guerita Cadena
HPI
59M HX multiple admissions with HX decompensated liver failure 2/2 ETOH abuse and varices seen at ER:
- Evaluation for increasing confusion.
- He was seen here yesterday for the same thing.
- 3 days ago the patient had paracentesis 4 L removed.
- Bleeding from his mouth.
- HX chronic edema of lower extremities.
- According to the patient's , daughter and nurse caregiver the patient continues to be more confused and there is concern about bacterial infection.
- Patient did have COVID 2 weeks ago but seems to have improved.
ROS
- denies chest pain
- denies fever or chills.
PHX
Anxiety
Portal cirrhosis
Thrombocytopenia
Hypertension
Hepatitis C
COPD
Bleeding hemorrhoids
Alcohol abuse
Ascites
Alcohol cirrhosis
Past Surgical History: Reports Other
Additional Past Surgical History:
Repair of spinal fluid leak
Teeth extraction
Vital Signs
Temp Pulse Resp BP Pulse Ox
98.5 F 75 15 127/62 94
10/11/24 15:47 10/11/24 16:12 10/11/24 16:12 10/11/24 16:12 10/11/24 16:12
PE
General: No apparent distress, alert and oriented to person and place
HEENT: very poor dentition and multiple, significant dental caries
Respiratory: Clear
Cardiac: S1/S2 and Regular Rhythm; No Murmur or Rub
Abdomen: distended with dilated veins, nontender, no CVA tenderness, BS good
Rectal: Hem Positive (greyish black per ER SYNTHETIC CLOTH BINDING CUTTER ) and Deferred by Provider
Musculoskeletal: +1-2 chronic pitting edema from the knees distally bilaterally
Skin: No Rash
Neuro: Nonfocal/grossly intact
Laboratory Tests
10/10/24 10/11/24
16:02 16:00
WBC 3.6 L 3.4 L
Hgb 8.0 L 8.3 L
MCV 99.6 H
Plt Count 52 L 60 L
Creatinine 0.9
eGFR > 60.00
Total Bilirubin 3.4 H
AST 47
ALT 17
Ammonia 11
Urine Nitrite (Reflex) Positive A
Leukocyte Esterase Rfl 1+ A
Urine RBC 90-100 A
Urine WBC (Reflex) 3-5
BCX x 2 sent
UCx sent
CXR: NAD
EKG:
NORMAL SINUS RHYTHM
PROLONGED QT
ABNORMAL ECG
WHEN COMPARED WITH ECG OF 05-OCT-2024 22:27,
NO SIGNIFICANT CHANGE WAS FOUND
Last hospitalist admission: Date of Admission: 10/06/24 - Date of Discharge: 10/09/24
Hepatic encephalopathy
Liver cirrhosis
Anemia of chronic disease
Thrombocytopenia
ASSESSMENT & PLAN
Pending Rx reconciliation
TME of uncertain origin with waxing and waning mental status
DDX: acute infective process( eval for SBP, dental infection)
HX recent SBP, 10/06/24 was last day abx
Unremarable NH3 but HX consistent with acute hepatic encephalopathy despite ammonia 11 on admission
Right molar tooth pain: No fever. No difficulty swallowing
Last s/p abdominal paracentesis 10/08/24
HX Ascites due to prtal HTN of decompensate ed Cirrhosis
- Empiric IV Zosyn in place of prophylactic Doxy
- cont Lactulose/ Rifaximin
- Hold Frusemide and Aldactone for now
- Consult GI
- Consult IR for Dx/Tx paracentesis
- Consult ID
- OP dentist outpatient and likely would need tooth extraction
HX Pancytopenia due to chr liver dz
Anemia of chronic disease:stable hgb, currently 8.3
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
- Transfuse for hemoglobin less than 7
HX multiple admissions due to decompensated liver failure 2/2 ETOH abuse and varices.
HX Portal HTN gastropathy
HX decompensated cirrhosis due to alcohol and hepatitis C virus
- Hepatitis C s/p Epclusa
- Held Lasix and Aldactone ela now
HX COPD with no acute exacerbation
- Breztri continued
Anxiety
- Trazodone HS PRN
Essential hypertension::
- Holding Lasix/Aldactone
GERD: Cont PPI
Other problems:
Recurrent upper GI bleeding likely secondary to portal hypertensive gastropathy
HX gastric varices s/p gastric artery coiling 09/2024
HCV s/p tx with Epclusa
Chronic pain
HX skin cancer s/p Mohs surgery
COPD: Cont Symbicort/Spiriva
DVT prophylaxis; SCD
Full code
IMU
[2024-10-11] MEDS: VIBRAMYCIN 260 MG IV (18:28)
[2024-10-11 19:42] LABS: NT-proBNP 1580 pg/ml
--- NOTE | 2024-10-11 23:52 | PTCARENOTE ---
Patient received from ED, AAOX3, but has confused conversation. NSR on monitor, blood pressure as documented. Palpable pulses throughout, edema noted to lower extremities R>L. Lungs coarse bilaterally, pulse ox 94% on 8L MFNC. Abdomen round, +
ascites. Stevens catheter draining priyank tea colored urine. Bruising noted in bilateral ams. #22g in left hand flushed and patent. CHG bath given. Plan of care discussed, call caballero within reach
[2024-10-12] VITALS (20 sets, daily range): BP systolic 82–133; BP diastolic 46–87; BMI 25.0
[2024-10-12] MEDS: DESYREL 25 MG PO (00:01)
[2024-10-12] MEDS: XIFAXAN 550 MG PO ×2 (00:01→07:59)
[2024-10-12] MEDS: DUPHALAC/CHRONULAC PO ×3 (00:01→23:21)
[2024-10-12] MEDS: DESENEX/MITRAZOL/ZEASORB 1 APPLIC TOPICAL ×3 (00:01→20:34)
[2024-10-12] MEDS: PREPARATION H OINTMENT RECTAL (00:01)
[2024-10-12] MEDS: PROTONIX 40 MG PO ×2 (00:01→07:59)
[2024-10-12] MEDS: SYMBICORT 160/4.5 MCG INHALER INH ×2 (00:16→20:20)
--- NOTE | 2024-10-12 00:39 | PTCARENOTE ---
Vital signs captured from 19:00-23:00 are from emergency department, reviewed with nurse from ED prior to capturing.
[2024-10-12] MEDS: ROBITUSSIN DM 5 ML PO (04:24)
[2024-10-12] MEDS: ULTRAM 50 MG PO (04:25)
[2024-10-12 05:07] LABS: Hematocrit 25.9 % (39.0-52.0); Hemoglobin 8.1 g/dL (13.0-18.0); Mean Corp Hgb Conc. 31.3 g/dL (33.0-37.0); Mean Corpuscular Hgb 31.5 pg (27.0-31.0); Mean Corpuscular Volume 100.8 fL (80.0-94.0); Mean Platelet Volume 10.1 fL (7.4-10.4); Platelet Count 58 10^3/uL (130-400); Red Blood Cell Count 2.57 10^6/uL (4.70-6.10); Red Cell Dist. Width 16.5 % (11.5-14.5); White Blood Cell Count 4.6 10^3/uL (4.8-10.8)
[2024-10-12 05:25] LABS: ALT (SGPT) 16 U/L (0-50); AST (SGOT) 44 U/L (17-59); Alkaline Phosphatase 63 U/L (38-126); Blood Urea Nitrogen 13 mg/dl (9-20); Calcium 8.3 mg/dl (8.4-10.2); Carbon Dioxide 20 mmol/L (22-30); Chloride 112 mmol/L (98-107); Estimated Creatinine Clearance 83 ml/min; Glucose 77 mg/dl (70-99); Potassium 4.1 mmol/L (3.5-5.1); Sodium 139 mmol/L (135-145); Total Bilirubin 2.8 mg/dl (0.2-1.3); Total Protein 5.3 g/dl (6.3-8.2); eGFR > 60.00
[2024-10-12] MEDS: ZOSYN 50 IV ×2 (05:29)
[2024-10-12] MEDS: SPIRIVA RESPIMAT 2.5 MCG 2 PUFF INH (07:24)
[2024-10-12] MEDS: SYMBICORT 160/4.5 MCG INHALER 2 PUFF INH (07:25)
[2024-10-12] MEDS: DUPHALAC/CHRONULAC 20 GRAMS PO (07:59)
[2024-10-12] MEDS: VITAMIN B1 100 MG PO (07:59)
[2024-10-12] MEDS: MAGNESIUM OXIDE 500 MG PO ×2 (07:59)
[2024-10-12] MEDS: FEOSOL 325 MG PO (07:59)
[2024-10-12] MEDS: PREPARATION H OINTMENT 1 APPLIC RECTAL ×2 (08:08→20:34)
[2024-10-12] MEDS: NSS (PRESERVATIVE FREE) 0.5 ML IV (08:43)
[2024-10-12] MEDS: ATIVAN 1 MG IV (08:43)
[2024-10-12 09:09] LABS: Alcohol None Detected
[2024-10-12 09:11] LABS: Amphetamines Negative (Negative); Barbiturates Negative (Negative); Benzodiazepines Negative (Negative); Buprenorphine Negative (Negative); Cocaine Positive (Negative); Marijuana Negative (Negative); Methadone Negative (Negative); Methamphetamines Negative (Negative); Opiates Positive (Negative); Phencyclidine Negative (Negative); Tricyclic Antidepressants Negative (Negative)
[2024-10-12 09:44] LABS: Fentanyl, Urine Negative (Negative)
[2024-10-12] MEDS: ZYPREXA 10 MG IM (10:08)
[2024-10-12] MEDS: STERILE WATER FOR INJECTION 2.1 ML IM (10:08)
[2024-10-12 11:01] LABS: Body Fluid LDH < 90 U/L; Body Fluid Protein < 2.0 g/dl
[2024-10-12 11:19] LABS: Body Fluid WBC 113 /CUMM
[2024-10-12 11:20] LABS: Body Fluid Mononuclear 80.6 %; Body Fluid Polymorphonuclear 19.4 %
[2024-10-12 11:36] LABS: Body Fluid Second Tech AMA
--- NOTE | 2024-10-12 11:37 | CON.INTV ---
Consultation
Consultation Request
Date/Time Consultation Requested: 10/12/2024 - 111
Date/Time Consultation Performed: 10/12/2024 - 1128
Requesting Provider: Dr. Oden
Performing Provider: Dr. Lala
Reason for Consultation: Agitation requiring precedex gtt
Medical History
-
Chief Complaint: Confusion + hallucination
History of Present Illness:
59-year-old male active tobacco smoker with a past medical history of alcoholic cirrhosis, hypertension, history of meningitis, anxiety/depression, HCV, COPD/emphysema on Breztri and history of CVA who presents with confusion and hallucinations for
about 6 days. He wears oxygen at home as needed at 2 L/min. He was recently here in the ER on 10/30 due to similar symptoms with confusion. His WBC at that time was 3.6, glucose 93, he was afebrile at 98.3 �F, and was hemodynamic stable at
123/50. He ended up leaving [facility] after saying he does not want to stay in the hospital any longer. He was recommended to follow-up as an outpatient with GI/hepatology. In the ER on 10/11/2024, he was initially afebrile to 98.6 �F, pulse rate 62,
breathing at 20 breaths/min, BP 101/59 and saturating 88% on room air. SpO2 increased to 92% on 4 L/min. Initial labs showed leukopenia to 3.4, anemia to 8.3, thrombocytopenia to 60, INR 1.78, lactate 1.1, T. bili 3.4, brown urine with positive
nitrites, +1 leukocyte esterase, and many urine bacteria. Blood + urine cultures were collected. CT head showed no acute intracranial pathology. CXR showed no acute cardiopulmonary disease. He was initially admitted to the IMU for further care
and diagnosed with toxic metabolic encephalopathy. ID and psychiatry was consulted, and ID does not feel that there is an infection causing his worsening confusion and did not recommend antibiotics. GI consulted to family denies any recent use of
drug or alcohol use however he did have cocaine on his urine drug screen. Patient does remain full code. GI was concerned that his recent administration of hydroxyzine and trazodone may have contributed to his current confusion. Unfortunate,
patient's confusion continued to escalate with agitation and Precedex drip is now being started and patient was upgraded to the ICU. [employer] services consulted for additional management/recommendations.
When I saw the patient he was in bed, with waxing and waning mental status with periods of agitation, cursing and other times he is resting in no acute distress. Currently, heart rate 88, BP 124/69 and he is saturating 95% on 8 L/min. He is
currently in restraints. He had a paracentesis today. No abdominal pain, no obvious shortness of breath or chest pain reported. ROS is unable to be obtained due to his acute clinical status and he is unable to give me information for HPI given
his acute clinical status.
Of note, he follows with us in the [facility] office with MRACIA Ortiz, last visit on 03/30/2024. Breast he was started at that time for his COPD as he was only using albuterol prn up until that office visit. A 6 MWT was performed showing no
need for home O2. Pt's last PFT was done on 03/30/2024 showing moderate COPD with a positive/nonsignificant bronchodilator response, no evidence of restriction and moderate gas exchange capacity defect (DLco + DLco/VA both are 44%). He was advised
to continue following up with our office with next visit in 3 months.
PMHx: Hypertension, alcoholic cirrhosis, meningitis, anxiety/depression, history of umbilical + testicular hernia, history of hepatitis C virus, pneumonia, history of emphysema/COPD on Breztri, history of stroke (right frontal lobe), tobacco use
disorder, history of thrush
PSHx: Spinal fluid leak repair, tooth extraction
Past Medical History
Past Medical History: Other (Above as per HPI)
Past Surgical History: Other (Above as per HPI)
Social History
Tobacco: Smoker ([id number] history)
Alcohol: Other (Reports no alcohol use but there apparently is evidence that he has been drinking recently via a alcoholic metabolite)
Drug: Cocaine and Other (Opioids)
Personal:
Living: With Family
Employment: Employed
Family History
Family History: CAD (Father + mother), Diabetes (Mother) and Other (Father: Hx of polyps)
Allergies / Home Medications
Allergies
Allergy/AdvReac Type Severity Reaction Status Date / Time
No Known Allergies Allergy Verified 10/11/24 13:20
Home Medications
�Medication �Instructions �Recorded �Confirmed �Last Taken �Type
thiamine HCl (vitamin B1) 100 mg 100 mg PO DAILY Supplement 03/13/24 10/11/24 10/10/24 History
tablet
budesonide 160 mcg-glycopyr 9 2 inh inhalation R BID 04/11/24 10/11/24 10/10/24 History
mcg-formot 4.8 mcg/actuation HFA Lung/Breathing Issues
inhaler (Breztri Aerosphere)
magnesium oxide 400 mg PO BID Supplement 06/28/24 10/11/24 10/10/24 History
rifaximin 550 mg tablet (Xifaxan) 550 mg PO BID hepatic 06/28/24 10/11/24 10/10/24 History
encephalopathy
lactulose 20 gram/30 mL oral 20 g (30 mL) PO TID Liver issues 07/01/24 10/11/24 10/10/24 Rx
solution #2,880 mL
pantoprazole 40 mg tablet,delayed 40 mg PO BID Gastrointestinal Issue 08/02/24 10/11/24 10/10/24 History
release (Protonix)
lidocaine 4 % topical patch 1 patch topical DAILYPRN PRN right 09/08/24 10/11/24 09/19/24 History
knee and right shoulder
miconazole nitrate 2 % topical 1 applic topical BID groin/scrotum 09/08/24 10/11/24 09/25/24 History
powder (Miconazorb AF)
ondansetron HCl 4 mg tablet 4 mg PO DAILYPRN PRN nasuea 09/08/24 10/11/24 Unknown History
ferrous sulfate 325 mg (65 mg 325 mg PO DAILY Supplement 09/26/24 10/11/24 10/10/24 History
iron) tablet (FeroSul)
phenylephrine 0.25 %-mineral oil 1 applic MS BID hemorrhoids 09/26/24 10/11/24 09/25/24 History
14 %-petrolatm 74.9 % rectal
ointment
(Hemorrhoidal(phenyleph-min
oil-petrolat))
spironolactone 25 mg tablet 25 mg PO DAILY Liver cirrhosis 09/26/24 10/11/24 10/10/24 History
tramadol 50 mg tablet 50 mg PO BIDPRN PRN 09/26/24 10/11/24 10/06/24 History
moderate-severe pain
doxycycline hyclate 100 mg capsule 100 mg PO DAILY #30 caps 10/02/24 10/11/24 10/10/24 Rx
furosemide 20 mg tablet 20 mg PO DAILY Fluid 10/06/24 10/11/24 10/10/24 History
retention/Swelling
hydroxyzine HCl 25 mg tablet 25 mg PO BIDPRN PRN itching 10/09/24 10/11/24 Unknown Rx
/anxiety #0 tabs
trazodone 50 mg tablet 25 mg (1/2 x 50 mg) PO HSPRN PRN 10/09/24 10/11/24 10/09/24 Rx
sleep #0 tabs
Review of Systems
-
Unable to Obtain full review of systems at this time due to: Acuity
Vitals / Labs / Diagnostic Testing
Vital Signs
Temp Pulse Resp BP Pulse Ox
99.1 F 78 15 98/54 92
10/12/24 11:36 10/12/24 14:15 10/12/24 14:15 10/12/24 14:00 10/12/24 14:15
Lab Data
10/12/24 04:42
10/12/24 04:42
Laboratory Results
10/11/24
16:00
PT 21.2 H
INR 1.78
APTT 44.4 H
Microbiology
10/12/24 09:12 Peritoneal Fluid Gram Stain - Preliminary
10/11/24 16:00 Urine Urine Culture - Final
NO GROWTH
Diagnostic Testing:
Physical Exam
-
HEENT: Normocephalic and Anicteric
Cardiovascular: S1/S2 and Peripheral Edema (negative)
Respiratory: Clear, Wheeze (negative), Rales (negative), Rhonchi (negative) and Accessory Resp Muscle Use (at times during agitation)
GI: Soft, Non Distended, Non Tender and Normal Bowel Sounds
Neurology: Tremors (negative) and Other (Waxing and waning mental status with times of confusion/agitation and other times he is calm and able to communicate but is using unintelligible speech)
Skin: Warm and Dry
General: Respiratory Distress (negative), Fever (negative), Chills (negative) and Sweats (negative)
Assessment
-
Assessment: 59-year-old male active tobacco smoker with a PMHx of alcoholic cirrhosis, hypertension, history of meningitis, anxiety/depression, HCV, COPD/emphysema on Breztri and history of CVA who presents with confusion and hallucinations for
about 6 days. He wears oxygen at home as needed at 2 L/min. He was recently here in the ER on 10/30 due to similar symptoms with confusion. CT head from 10/10/2024 showed no acute intracranial pathology and he was admitted to the IMU for further
care. ID and psychiatry were consulted. He did have evidence of cocaine + opiates on his urine drug screen and his alcohol level was negative. Family also denies any recent alcohol use or drug use. Unfortunately the patient's agitation continued
to escalate requiring Precedex drip with ICU transfer. [employer] services is now consulted for additional management/recommendations.
Chronic conditions [employer]: Hypertension, alcoholic cirrhosis, meningitis, anxiety/depression, history of umbilical + testicular hernia, history of hepatitis C virus, pneumonia, history of emphysema/COPD on Breztri, history of stroke (right frontal
lobe), tobacco use disorder, history of COVID-19 (diagnosed 09/28/2024)
Impression:
#Altered mental status with acute agitation requiring Precedex drip
#Acute on chronic respiratory failure with hypoxia (at home uses 2 L/min prn)
#Prolonged QTc
#Decompensated alcoholic cirrhosis with history of hep C requiring scheduled paracentesis
#Portal HTN due to cirrhosis
#Pancytopenia with (baseline WBC ranging between 3.5�8; baseline Hb: 7�8.5; baseline platelets: 40�100)
#Elevated INR likely due to cirrhosis
#Metabolic acidosis with normal anion gap
#Elevated T. bili (chronic with baseline 2�3.5mg/dl)
#Abnormal urinalysis with suspected UTI with positive nitrites, +1 leukocyte esterase and many urine bacteria
#Abnormal urine drug screen with positive cocaine + opiates
#Active tobacco use disorder
#History of COVID-19 (diagnosed 09/28/2024)
#Moderate COPD on Breztri as an outpatient
#History of right frontal lobe CVA
Plan:
- Start Precedex drip and titrate to his level of agitation, reducing dose for oversedation
- Continue with restraints and remove if he clinically improves and is cooperating
- Psychiatry consulted and recommendations appreciated
- Continue risperdal
- Trend QTc (currently 552ms)
- Neurochecks q4hr
- He underwent a paracentesis today removing 3100 cc of clear yellow fluid
- Ascitic fluid was negative for SBP; prior SAAG was >1.1 indicative of portal HTN
- Follow up ascitic fluid Cx and cytopathology
- Will give 25g 25% albumin now
- GI consulted and recs appreciated
- Continue with lactulose and titrate to 3�4 loose/formed bowel movements per day
- Continue with rifaximin
- Trend LFTs
- Monitor abdominal distention as he may need a repeat paracentesis
- Although he has a positive urinalysis and is s/p ceftriaxone, doxycycline, and Zosyn, ID has been consulted and doubts that an infection is ongoing as a cause of his symptoms. Antibiotics were subsequently stopped.
- Continue to trend WBC and monitor for fevers
- If he does spike another fever then would recommend elena culturing at that point and consider restarting broad-spectrum antibiotics
- Be aware that Precedex can sometimes cause drug fever
- Consider starting MSAS
- Continue thiamine
- Maintain SpO2 88-95%
- Continue with aspiration precautions keeping HOB >30-45�
- As long as he can properly inhale from spacer, can continue with Spiriva Respimat + Symbicort, otherwise we will need to transition everything to nebulized medications
- Apply nicotine patch
- prn Duonebs - not currently bronchospastic
- Maintain MAP>65
Trend sHCO3 level
- Replete electrolytes with K>4, Mg>2
- Maintain euglycemia with goal BG 140-180
- Trend H/H and transfuse if needed to keep Hb>7g/dL; keep plt>20k, unless there is concern for bleeding then keep plt>50k
- Continue PPI 40mg BID (home med)
- DVT ppx: start LMWH
Critical care statement: A total of 40 minutes of critical care time was provided for this patient today. This includes management of unstable vital signs, evaluation of the patient at bedside, reviewing the patient's pertinent medical records
including radiographs, microbiology, laboratory evaluations, and discussion with primary team, consultants, pharmacy, nutrition, physical therapy, case management, charge nurse, critical care nursing, and respiratory therapy.
Data:
CXR 10/11/2024: No active cardiopulmonary disease.
CT Head 10/10/2024: Compared to prior CT head from 08/14/2024
No acute intracranial pathology. 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 Stable. Sequela of previous trauma cannot be excluded. Mild nonacute sinusitis. Progressed.
[2024-10-12] MEDS: ZOSYN 100 IV (11:47)
[2024-10-12] MEDS: PRECEDEX 100 IV ×2 (11:54→20:32)
--- NOTE | 2024-10-12 12:20 | CON.ID ---
Consultation
-
Date/Time Consultation Requested: 10/11/2024 2338
Date/Time Consultation Performed: 10/12/2024 1200
Requesting Provider: MARCIA Hess
Performing Provider: Dr. Muse
Reason for Consultation: 'acute infective process( eval for SBP, dental infection), TME'
Chief Complaint / Past History
History of Present Illness
Cortez Mazariegos is a 59-year-old man being evaluated at the request of Tonya Cadena in regards to workup for possible infectious process. History is obtained from chart review alone as the patient currently cannot provide any history due to
acute encephalopathy.
The patient is known to the Infectious Diseases service, having been seen on a prior admission in mid to late September, during which time he was found to have SBP secondary to ESBL E. coli. He completed a 10-day course of ertapenem, and was
thereafter to remain on SBP prophylaxis with doxycycline indefinitely.
He presents back to the emergency room on 10/11 secondary to increasing confusion. He receives ongoing and recurrent paracentesis.
Past History
Additional Past Medical History:
Cirrhosis
Upper GI bleed
COPD
Recurrent SBP
Hepatic encephalopathy
Hx of CVA
Allergy History:
No Known Allergies Allergy (Verified 10/11/24 13:20)
Medications Reviewed: Yes
Current Antibiotics:
Zosyn 3.375 g IV every 6 hours
Xifaxan
Social History
Tobacco: Smoker
Alcohol: Former
Drug: None
Personal:
Living: With Family
Employment: Employed
Family History
Family History: Not Pertinent
Review of Systems
Vital Signs
Temp Pulse Resp BP Pulse Ox
99.1 F 84 18 123/82 94
10/12/24 11:36 10/12/24 09:19 10/12/24 09:19 10/12/24 09:19 10/12/24 09:00
Physical Exam
Physical Exam
Constitutional: No Acute Distress, Chronically Ill and Non-toxic
Head: Normocephalic
Eyes: Pupils Equal, Pupils Round and No Conjunctival Hemorrhage
Oral: No Thrush
Cardiovascular: Regular Rate and S1/S2; Negative S3/S4
Pulmonary: Clear; Negative Wheezes, Rales or Rhonchi
Gastrointestinal: Soft, Distended, Normal Bowel Sounds and No Rebound
Extremities: Edema (3+); Negative Cyanosis or Erythema
Neurological: Awake and Alert
Psychological: Confused and Agitated
Lab / Diagnostic Study Results
10/12/24 04:42
10/12/24 04:42
Abs Immat Gran (auto) 0.0 10^3/uL (0-0.05) 10/11/24 16:00
Absolute Neuts (auto) 2.2 10^3/uL (1.4-6.5) 10/11/24 16:00
Absolute Lymphs (auto) 0.7 10^3/uL (1.2-3.4) L 10/11/24 16:00
Absolute Monos (auto) 0.2 10^3/uL (0.1-0.6) 10/11/24 16:00
Absolute Basos (auto) 0.0 10^3/uL (0-0.2) 10/11/24 16:00
Immature Gran % 0.3 % (0-0.5) 10/11/24 16:00
Neutrophils % 65.4 % (42.2-75.2) 10/11/24 16:00
Lymphocytes % 19.9 % (20.5-51.1) L 10/11/24 16:00
Monocytes % 7.0 % (1.7-9.3) 10/11/24 16:00
Eosinophils % 6.2 % (0-6) H 10/11/24 16:00
Basophils % 1.2 % (0-2) 10/11/24 16:00
PT 21.2 Sec (11.4-14.6) H 10/11/24 16:00
INR 1.78 10/11/24 16:00
Lactic Acid Cancelled 10/11/24 19:30
Ur Squamous Epith Cells 3-5 /LPF (Few) 10/11/24 16:00
Microbiology Results
Micro:
10/12/24 09:12 Body Fluid Culture - Pending
Peritoneal Fluid Gram Stain - Preliminary
10/11/24 16:00 Urine Culture - Final
Urine NO GROWTH
10/11/24 16:00 Blood Culture - Pending
Blood/Venous
10/11/24 16:00 Blood Culture - Pending
Blood/Venous
Imaging:
09/26/2024 CT abdomen/pelvis with IV contrast: There is mild wall thickening of the distal esophagus suggesting esophagitis. Subtle liver surface nodularity consistent with history of cirrhosis. There is evidence of portal hypertension with
splenomegaly and extensive portosystemic venous collaterals. Mild ascites is noted. Minor diverticulosis without acute diverticulitis. A nonobstructing 8 mm left ureteropelvic junction calculus is noted and similar to prior examinations. Please
see full dictation for additional detail. Film personally viewed.
Assessment / Plan
Worsening confusion
� Likely secondary to worsening overall liver function.
� No infectious process immediately identifiable
Advanced / End-stage Cirrhosis
Hx Upper GI bleed
COPD
Hx Recurrent SBP
Hepatic encephalopathy
Hx of CVA
Recommendations:
At this time, no infectious processes immediately identifiable. White count is normal, as is differential.
No evidence of SBP.
Suspect worsening encephalopathy is secondary to advancing liver failure.
Discontinue further antibiotics.
Care Review
Plan reviewed with: Physician (GI; Psychiatry)
--- NOTE | 2024-10-12 12:33 | CON.MD ---
Consultation - Medical
-
patient seen chart reviewed. discussed w nursing. the patient is a 59 year old male admitted with escalating confusion. he has hx end stage liver disease. patient was on the transplant list but according to nursing that is no longer a possibility
as he was removed from that list. the patient reportedly has not consumed alcohol in many months. while urine is + for cocaine there are many medications that can cause a false + for cocaine including antihistamines. the patient has been agitated
and was experiencing visual and auditory hallucinations. zyprexa was attempted but resolution of sx would not occur with one or two administrations and is likely secondary to underlying tme. the patient can give no history. he was in restraints
and very tremulous lying in bed muttering incoherently. mr jenkins was seen by psychiatry earlier this year for sleep issues and trazodone was suggested. he had also c/o anxiety for which he had been prescribed xanax but there was concern that it
was addictive w potential for over use. more recently he had been prescribed hydroxyzine for anxiety.
past psych hx patient
medical hx patient w end stage liver failure. he has been seen frequently for paracentesis. he has hx of cva, gi bleed anemia htn copd tcp there was some ? re uti but dr balderas does not believe this to be the case
fh non contributory
substance abuse hx etoh abuse. he had reportedly stopped drinking but there is some ? as to whether he had consumed etoh and that is the reason why he was removed from the transplant list
social hx retired. . supportive. patient has three kids and grandkids
mse patient agitated and tremulous. he was in four point restraints muttering incoherently. i was unable to get him to engage in any conversation
dx tme secondary to underlying severe medical illness
recommendations suggest risperdal o.25 mg bid but it will not work overnight and the real rx of tme/delirium is rx of the underlying illness. not clear to me how much improvement one can expect in this case. spoke with who would like to speak
to gi. alerted ms catalan who knows patient. i gingerly asked mrs jenkins about full code status. she said her daughters are not ready to take a step in the dnr direction. psych will look in on patient tomorrow.
--- NOTE | 2024-10-12 13:07 | CON.GI ---
Addendum entered and electronically signed by Dee Dee Childers MD 10/12/24 18:16:
I saw and examined the patient.
The DUB ROOM ENGINEER's note was reviewed and I agree with the note.
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
ascites, UGIB, gastric varices and rest as below who presented with confusion and agitation and has been ruled out for infection and has been off antibiotics now. He follows up with Dr. Dan at [place] and also recent outpatient evaluation was
positive for PETH test and his UDS on admission was positive for opiates and cocaine his ammonia is normal at 11.
Assessment and plan altered mental status likely multifactorial from probable polysubstance abuse, alcohol withdrawal, toxic metabolic encephalopathy and also possible hepatic encephalopathy despite a normal ammonia level. he has been ruled out for
infection. Continue lactulose and Xifaxan he has been off antibiotics. Overall prognosis is very poor but patient's and family would like him to be full code and are not ready for hospice care. Given his prior history of SBP and bacteremia
lifelong SBP prophylaxis with doxycycline recommended in the past by ID. He is currently on Precedex drip and risperidone.
History of upper GI bleed from gastric varices was transferred to [place] and status post gastric artery coiling in September 2024 currently has no signs of bleeding and hemoglobin is stable
Original Note:
Consultation
-
Date/Time Consultation Requested: 10/11/24 2330
Date/Time Consultation Performed: 10/12/24 1200
Requesting Provider: MARCIA Rhodes
Performing Provider: MARCIA Rossi, Dee Dee Childers MD
Reason for Consultation: confusion
Medical History
Chief Complaint / HPI
Chief Complaint: confusion
History of Present Illness:
Mr Mazariegos is a 59 y.o male well-known to GI group with past medical history significant for decompensated cirrhosis (HCV vs EtOH) with intractable ascites with weekly para, HE, GI bleeding by recurrent hospitalizations with HE secondary to
acute on chronic GI bleeding 2/2 PHG gastric varix, hx of prior post-polypectomy bleed, prior transfer to [place] for Ultrasound guided gastric artery coiling procedure, chronic HCV (s/p treatment with Epclusa s/p SVR), CVA, HTN, COPD, and chronic
thrombocytopenia. He also had recent SBP, covid, ecoli ESBL blood/peritoneal fluid, and UTI. He now presents with recurrent evaluation with confusion. Since admission currently no signs of infection and neg SBP with cultures pending. He is also
noted with + tox screen for cocaine on admission along with bleeding from gums.
Pt currently with confusion but limited ROS. Per Per patient has been noted with recent confusion. He did however see Dr. Dan yesterday.He was noted during evaluation with conversation and some slight confusion and was directed to
the ER for further evaluation. Today he is node noted with marked worsening status with confusion and agitation with incomprehensive conversastion. Per further review with the he did have newly added Atarax and trazodone which was a concern
for causing symptoms. He has had no other signs of bleeding, and current infectious workup so far negative. Per chart with was transplant evaluated and noted with + PETH test and due for OP counseling.
Past Medical History
Past Medical History: Other ( )
Past Surgical History: Other (Mohs surgery)
Social History
Tobacco: Non-Smoker
Alcohol: Former (with recent PETH +)
Drug: Other (prior use in past )
Personal:
Living: With Family
Employment: Not Employed
Family History
Family History: Other (no family hx liver disease )
Allergies / Home Medications
Allergy/AdvReac Type Severity Reaction Status Date / Time
No Known Allergies Allergy Verified 10/11/24 13:20
�Medication �Instructions �Recorded
thiamine HCl (vitamin B1) 100 mg 100 mg PO DAILY Supplement 03/13/24
tablet
budesonide 160 mcg-glycopyr 9 2 inh inhalation R BID 04/11/24
mcg-formot 4.8 mcg/actuation HFA Lung/Breathing Issues
inhaler (Breztri Aerosphere)
magnesium oxide 400 mg PO BID Supplement 06/28/24
rifaximin 550 mg tablet (Xifaxan) 550 mg PO BID hepatic 06/28/24
encephalopathy
lactulose 20 gram/30 mL oral 20 g (30 mL) PO TID Liver issues 07/01/24
solution #2,880 mL
pantoprazole 40 mg tablet,delayed 40 mg PO BID Gastrointestinal Issue 08/02/24
release (Protonix)
lidocaine 4 % topical patch 1 patch topical DAILYPRN PRN right 09/08/24
knee and right shoulder
miconazole nitrate 2 % topical 1 applic topical BID groin/scrotum 09/08/24
powder (Miconazorb AF)
ondansetron HCl 4 mg tablet 4 mg PO DAILYPRN PRN nasuea 09/08/24
ferrous sulfate 325 mg (65 mg 325 mg PO DAILY Supplement 09/26/24
iron) tablet (FeroSul)
phenylephrine 0.25 %-mineral oil 1 applic IL BID hemorrhoids 09/26/24
14 %-petrolatm 74.9 % rectal
ointment
(Hemorrhoidal(phenyleph-min
oil-petrolat))
spironolactone 25 mg tablet 25 mg PO DAILY Liver cirrhosis 09/26/24
tramadol 50 mg tablet 50 mg PO BIDPRN PRN 09/26/24
moderate-severe pain
doxycycline hyclate 100 mg capsule 100 mg PO DAILY #30 caps 10/02/24
furosemide 20 mg tablet 20 mg PO DAILY Fluid 10/06/24
retention/Swelling
hydroxyzine HCl 25 mg tablet 25 mg PO BIDPRN PRN itching 10/09/24
/anxiety #0 tabs
trazodone 50 mg tablet 25 mg (1/2 x 50 mg) PO HSPRN PRN 10/09/24
sleep #0 tabs
Review of Systems
-
History Source: Patient and Family
Constitutional: Reports Weight Loss
EENT: Reports Other (bleeding from mouth and lips )
Respiratory: Reports No Symptoms
Cardiac: Reports No Symptoms
Abdomen/GI: Reports Abdominal Pain (RLQ with bruising from prior paracentesis ) and Other (distention with ascites s/p para this am )
: Reports No Symptoms
Musculoskeletal: Reports No Symptoms
Skin: Reports No Symptoms
Neurological: Reports Weakness
Endocrine: Reports No Symptoms
Hematologic/Lymphatic: Reports Bleeding (from mouth and lips)
Vital Signs
Temp Pulse Resp BP Pulse Ox
99.1 F 84 18 123/82 94
10/12/24 11:36 10/12/24 09:19 10/12/24 09:19 10/12/24 09:19 10/12/24 09:00
Physical Exam
Exam
General: Other (ill appearing with confusion and agitation)
HEENT: Normocephalic and Other (jaundice)
Respiratory: Clear
Cardiac: Regular Rhythm
GI: Soft, Non Tender and Distended (mild )
Musculoskeletal: No Clubbing and No Cyanosis
Skin: Warm and Dry
Neuro: Other (confused with incomprehesible conversation)
Psych: Agitated
Results
WBC 4.6 10^3/uL (4.8-10.8) L 10/12/24 04:42
Hgb 8.1 g/dL (13.0-18.0) L 10/12/24 04:42
Hct 25.9 % (39.0-52.0) L 10/12/24 04:42
MCV 100.8 fL (80.0-94.0) H 10/12/24 04:42
Plt Count 58 10^3/uL (130-400) L 10/12/24 04:42
Absolute Neuts (auto) 2.2 10^3/uL (1.4-6.5) 10/11/24 16:00
PT 21.2 Sec (11.4-14.6) H 10/11/24 16:00
INR 1.78 10/11/24 16:00
APTT 44.4 Sec (23.4-35.0) H 10/11/24 16:00
Sodium 139 mmol/L (135-145) 10/12/24 04:42
Potassium 4.1 mmol/L (3.5-5.1) 10/12/24 04:42
Chloride 112 mmol/L (98-107) H 10/12/24 04:42
Carbon Dioxide 20 mmol/L (22-30) L 10/12/24 04:42
BUN 13 mg/dl (9-20) 10/12/24 04:42
Creatinine 1.0 mg/dL (0.7-1.3) 10/12/24 04:42
Calcium 8.3 mg/dl (8.4-10.2) L 10/12/24 04:42
Total Bilirubin 2.8 mg/dl (0.2-1.3) H 10/12/24 04:42
AST 44 U/L (17-59) 10/12/24 04:42
ALT 16 U/L (0-50) 10/12/24 04:42
Alkaline Phosphatase 63 U/L (38-126) 10/12/24 04:42
Diagnostic Image Results:
09/2024 gastric art coiling procedure at [place] -- report pending
09/09/24 EGD [facility] - Type 1 isolated gastric varices (IGV1, varices
located in the fundus) with a small amount of oozing
and stigmata of recent bleeding found in the gastric
fundus. This is the source of patient's presentation.
No endoscopic therapy was performed given large
isolated gastric varices as these were not contiguous
with the GE-junction
- Moderate portal hypertensive gastropathy
- Otherwise, normal stomach on direct and retroflexion
views
- Normal esophagus without any esophageal varices
- Small amount of red blood in the second portion of
the duodenum. No duodenal varices were visualized
- The examination was otherwise normal.
- No specimens collected.
colonoscopy 08/22/24 Charlotte Bunn MD Non-bleeding internal hemorrhoids were found during retroflexion. The
hemorrhoids were large.
Multiple diverticula were found in the sigmoid colon and descending
colon.
The exam was otherwise without abnormality.
Diffuse colopathy
Old ovesco clip seen in ascending colon
An 8 mm polyp was found in the sigmoid colon. The polyp was sessile.
Polypectomy was not attempted given recent GI bleeding.
repeat colon 6-12 month with fair prep and polyps removed
Small bowel enteroscopy 08/22/24 Charlotte Bunn MD
- Normal esophagus.
- Severe portal hypertensive gastropathy with active
bleeding. Treated with argon plasma coagulation (APC).
- 2 cm hiatal hernia.
- Normal examined duodenum.
- The examined portion of the jejunum was normal.
- No specimens collected.
EGD: 06/29/24 maci Gaviria MD - Normal esophagus.
- Portal hypertensive gastropathy.
- Normal examined duodenum.
- No specimens collected.
05/07/[address] Smith : - Hemorrhoids found on perianal exam.
- The examined portion of the ileum was normal.
- Foreign body (OVSCO clip) at the hepatic flexure.
- Polypoid lesion at the hepatic flexure.
- Diverticulosis in the sigmoid colon and in the
descending colon.
- Internal hemorrhoids.
- No specimens collected.
Colonoscopy 04/13/2024-[facility] - One 15 to 18 mm polyp at the hepatic flexure,
removed using lift and cut and a hot snare and removed
with a cold snare. Resected and retrieved. Injected.
Treated with hot biopsy forceps. Ligated.
- One 4 mm polyp in the descending colon, removed with
a hot snare. Resected and retrieved. Clip was placed.
- Diverticulosis in the sigmoid colon, in the
descending colon and at the splenic flexure.
bx DC -TA and HF - HP polyp
EGD 04/13/2024� [facility] - No gross lesions in the entire esophagus. No varices.
- Z-line variable, 42 cm from the incisors.
- Portal hypertensive gastropathy.
- Normal examined duodenum.
- No specimens collected.
EGD:12/27/22 [facility] - Normal esophagus.
- Portal hypertensive gastropathy.
- Normal examined duodenum.
- No specimens collected.
04/11/2024 MRI Abd with and without:
IMPRESSION: Examination limited by motion artifact. CT may be useful as the next surveillance imaging examination, as perhaps there would be less motion artifact. Given this limitation, there is no MR evidence for hepatocellular carcinoma. Findings
of cirrhosis with ascites, splenomegaly, and prominent varices within the abdomen, and extending around the distal esophagus.
08/18/24 CT A/p
Cirrhotic appearing liver with large volume ascites, upper abdominal collateral vessels and splenomegaly.
Right inguinal hernia and umbilical hernia containing ascites fluid.
Unchanged 9 mm calculus in the proximal left ureter. No hydronephrosis
08/04/24 US doppler
Duplex ultrasound with color and spectral waveform analysis of the abdomen demonstrates high resistance waveform in the hepatic arteries such as may be seen with cirrhosis
The hepatic veins are patent with normal pulsatile flow
There is normal hepatopedal flow in the portal veins which are normal in caliber
no mass seen
IMPRESSION: Cirrhosis with splenomegaly and moderate ascites
10/10 HCT
No acute intracranial pathology.
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 Stable. Sequela of previous trauma cannot be excluded.
Mild nonacute sinusitis. Progressed
10/11/24 CXR
No active cardiopulmonary disease.
frequent para-last completed -09/26 + SBP, 10/12 neg SBP- 3100 removed
Assessment / Plan
-
Mr Mazariegos is a 59 y.o male well-known to GI group with past medical history significant for decompensated cirrhosis (HCV vs EtOH) with intractable ascites with weekly para, HE, GI bleeding by recurrent hospitalizations with HE secondary to
acute on chronic GI bleeding 2/2 PHG gastric varix, hx of prior post-polypectomy bleed, prior transfer to [place] for Ultrasound guided gastric artery coiling procedure, chronic HCV (s/p treatment with Epclusa s/p SVR), CVA, HTN, COPD, and chronic
thrombocytopenia. He also had recent SBP, covid, ecoli ESBL blood/peritoneal fluid, and UTI. He now presents with recurrent evaluation with confusion. Since admission currently no signs of infection and neg SBP with cultures pending. He is also
noted with + tox screen for cocaine on admission along with bleeding from gums.
-confusion with agitation etiology med related vs other
-hx GI bleeding with -hx recent EGD with type 1 isolated gastric varix with transfer to [place] with gastric artery coiling 09/2024
-recurrent Anemia
-recent SBP on chronic abx
-recent covid
-recent UTI/ecoli ESBL bacteremia
-Decompensated alcoholic/Hep C liver cirrhosis, MELD 3.0 - transplant held with + PETH awaiting counseling
-Chronic thrombocytopenia
-hx HE
-Ascites, requiring near weekly paracentesis
-Chronic hyponatremia
-Hyperbilirubinemia, chronic
-AFP 30 in March 2024, was in the 10-12 range
-Hx Hep C s/p tx with Epclusa with SVR
-portal hypertension
-+ tox screen may be false +
Other pertinent medical history:
-Chronic pain
-GERD
-Hypertension
-Anxiety
-hx colon polyps with prior bleeding with polyp removal and placement of Ovesco clip-- last colon with retained polyps note removed in setting of GI bleed
-hx hemorrhoids
-skin Ca s/p recent Mohs surgery
Recommendations:
Etiology to agitation related to medication with recent Atarax and Trazadone use, advancing liver disease, HE though ammonia level 11, recurrent infection with current cx data neg so far vs other
family denies use of recent Drug or ETOH use
I had discussion with who was tearful with situation she relates pt would like to be full code. Currently daughter due to have baby soon and family not ready for hospice
we discussed to take it day to day but concern Pt may not recover with current situation
await further culture data to confirm no infection, neg SBP per tap today
avoid atarax and Trazodone fow now
cont abx for SBP prophylaxsis
trend labs with hx recurrent GI bleeding
cont PPI BID
diet as tolerated when able
MELD 3.0 17 on admission
appreciate psych, for agitation and ID to rule out infectious etiology
updated nursing staff and hospitalist with family conversation
updated Dr. Weaver primary GI MD at
Pt will need follow with Colin and proceed with counseling with hx + PETH test when able to consider future option for transplant
-
-
Thank you for consultation and allowing me to participate in the patient's care. Please call the roll contour grinder GI physician during the after hours with any questions or concerns.
--- NOTE | 2024-10-12 13:16 | W.PN.HOSP.TC ---
Today's Communication/Plan
-
Monitor vital signs
see plan
Belligerent and agitated this morning along with hallucination
Did not respond much after Zyprexa; started Precedex
Start Risperdal per psychiatry
Continue to monitor mental status closely
ID and GI following
Assessment / Plan
Assessment / Plan
General: Well Developed, agitated
HEENT: NormoCephalic, Moist mucous membranes, Atraumatic, Other (broken lower right tooth)
Respiratory: Clear, Wheezes and Non Labored Respirations; No Rales, Rhonchi or Crackles
Cardiac: S1/S2 and Regular Rhythm
GI: Soft, Normal Bowel Sounds and Tender
Genito-urinary: Stevens
Musculoskeletal: No Edema
Neuro: Awake, not alert and oriented
Psych: + agitation
Agitation, hallucination could likely be multifactorial secondary to TME and possible drug abuse
UDS positive for opioids, cocaine
No clear history obtained from the patient and he is very agitated and belligerent
Transfer to ICU for Precedex
Unclear when his last alcohol use was
Does have history of advanced liver disease and hepatic encephalopathy
Continue with lactulose and rifaximin
Antibiotic discontinued by ID, monitor
Psychiatry following, started on Risperdal
cw restraints
Thrombocytopenia likely secondary to cirrhosis
Monitor
Anemia of chronic disease secondary to liver cirrhosis
Monitor
Recurrent upper GI bleeding likely secondary to portal hypertensive gastropathy
h/o gastric varices s/p gastric artery coiling 09/2024
HCV s/p tx with Epclusa
Chronic pain
Essential hypertension: Cont lasix/aldactone
GERD: Cont PPI
h/o skin cancer s/p Mohs surgery
Anxiety
COPD: Cont Symbicort/Spiriva
recent Covid infection
Hx ascites r/t portal vein HTN from decompensated cirrhosis
History insomnia
On trazodone, hold for now
Code Status: Full Code
DVT Px: SCDs
Total Critical Care Time__42___ minutes. I was immediately available to the patient and staff. I personally examined, reviewed labs, diagnostic images/reports, interpretations, treatment plans, discussed patient care with other providers and
family or caregivers (if patient is unable to make decisions), entered orders as appropriate and documented the medical record.
Anticipated Discharge: > 48 hours
Subjective/Interval History
-
Date of Service: October 12, 2024
agitated
Objective Data
-
Labs:
Laboratory Results
10/12/24
04:42
WBC 4.6 L
Hgb 8.1 L
Hct 25.9 L
Plt Count 58 L
Sodium 139
Potassium 4.1
Chloride 112 H
Carbon Dioxide 20 L
BUN 13
Creatinine 1.0
Glucose 77
Calcium 8.3 L
Total Bilirubin 2.8 H
AST 44
ALT 16
Alkaline Phosphatase 63
Vital Signs:
Vital Signs
Temp Pulse Resp BP Pulse Ox
99.1 F 84 18 123/82 94
10/12/24 11:36 10/12/24 09:19 10/12/24 09:19 10/12/24 09:19 10/12/24 09:00
I&O
10/11/24 10/12/24 10/13/24
06:59 06:59 06:59
Intake Total 100 / 100
Output Total 250 / 250
Balance -150 / -150
[2024-10-12] MEDS: RISPERDAL M-TAB (ORALLY DISINTEGRATING) 0.25 MG PO ×2 (13:25→20:33)
--- NOTE | 2024-10-12 13:49 | CM ---
CM following re: discharge planning.
Reviewed pt's chart, met with pt.
Pt is a 59 year old male, admitted with primary dx of Toxic metabolic encephalopathy.
Pt is not a great historian. Pt lives w/ spouse and adult daughter in a 2STH-1 step to enter. Per spouse, their daughter recently moved in w/ them to assist in the home. Pt is independent w/ cane. Pt has a shower chair, rails and grab bars in the
home for additional support, was at [facility] had [facility] in the past
PCP: Dr. Drake Goss
Pharmacy: [facility]
D/C plan: uncertain at this time and will depend on pt's progress
CM will follow with discharge plan updates as hospitalization progresses
--- NOTE | 2024-10-12 14:41 | PN.CDI ---
CDI
- -
CDI:
Physician Documentation Request
Admit Date: 10/11/24 19:11
Dear Doctor Akshat,
Please review the following and provide your response in the progress notes.
Clinical Indicators:
Pt admitted with toxic metabolic encephalopathy.
10/11 RN Note: 'this RN noticed that the pts Sp02 dropped to 88% on 3L NC, this RN notified the provider Dr. Benoit and titrated the pts 02 up to 6L NC, Sp02 remains at 92%'....'the pt was placed on 8L midflow by respiratory'
Selected Entries
10/11/24
13:20 10/11/24
15:45
SaO2 88 89
Oxygen Mode of Delivery Room air
Nasal Cannula flow liters per minute 4
10/11/24
17:00 10/11/24
18:44
SaO2 88 96
Oxygen Mode of Delivery
Nasal Cannula flow liters per minute 6 8
Clarify which of the following accurately represents the patient's respiratory status:
Acute hypoxic respiratory failure
Hypoxia only
Other
Additional information for Respiratory Failure:
Recognized criteria for Respiratory Failure (Source: [facility] Hospitalist Sep 2013)
ABGs: (1 or more) Symptoms Please indicate type if known
1. p)2 <60 or RA SPO2 <91% on RA 1. Tachypnea, SOB, dyspnea Hypoxic
2. pCO2 50 and pH <7.35 2. Use of accessory muscles Hypercapnic
3. pO2 decrease of pCO2 increase by 3. Pallor or cyanosis Hypoxic and Hypercapnic
10 mmHg from baseline if known 4. Anxiety or restlessness Unable to determine
5. Unable to speak in full sentences
Supplemental O2 of > 40% (5LPM) Intubation is not required
Use of terms such as suspected, likely, concern for, or probable (associated with a specific diagnosis that is being evaluated, monitored, or treated as if it exists) are acceptable and can be coded in the inpatient setting, when documented at the
time of discharge.
Thank you,
Tere Abebe RN, BSN
CDI Specialist
Available via [employer]
Please use your independent medical judgment in providing your response.
--- NOTE | 2024-10-12 14:57 | PN.CDI ---
CDI
- -
CDI:
Physician Documentation Request
Admit Date: 10/11/24 19:11
Dear Doctor Akshat,
Please review the following and provide your response in the progress notes.
Clinical Indicators:
Pt admitted with toxic metabolic encephalopathy.
Laboratory Tests
10/11/24 10/12/24
16:00 04:42
WBC 3.4 L 4.6 L
Hgb 8.3 L 8.1 L
Plt Count 60 L 58 L
Based on the above lab abnormalities, could you clarify in the progress notes, the appropriate diagnosis, if significant, that supports the above abnormalities and additional evaluation, monitoring and/or treatment rendered:
Pancytopenia
Thrombocytopenia only
Other
Use of terms such as suspected, likely, concern for, or probable (associated with a specific diagnosis that is being evaluated, monitored, or treated as if it exists) are acceptable and can be coded in the inpatient setting, when documented at the
time of discharge.
Thank you,
Tere Abebe RN, BSN
CDI Specialist
Available via [employer]
Please use your independent medical judgment in providing your response.
[2024-10-12] MEDS: NICODERM TRANSDERMAL 7 MG TRANSDERM (17:13)
[2024-10-12] MEDS: FLEXBUMIN 100 IV (17:13)
[2024-10-12] MEDS: LOVENOX 40 MG SC (17:15)
--- NOTE | 2024-10-12 19:30 | PTCARENOTE ---
Received patient at 1900. Pt. currently in bed. Lethargic and confused. Arouses to stimulation. Afebrile. Heart rhythm sinus. Blood pressure normotensive. Currently on nasal cannula. PO diet ordered. Stevens catheter in place per order, draining
without issue. Skin as documented. Discussed plan of care with patient. Vital signs stable at this time.
[2024-10-12] MEDS: MAGNESIUM OXIDE PO (19:45)
[2024-10-12] MEDS: XIFAXAN PO (20:03)
--- NOTE | 2024-10-12 20:18 | PTCARENOTE ---
Pt received in bed @ 0700. Hallucinating. Yelling at people that are not there. Vaguely expressed paranoid thoughts. Yelling, 'I'm leaving! Get me out of here! That fuc bitch has my wallet!' Unable to orient to hospital. Pt assisted OOB by pt's
demand to commode and produced large brown loose stool. Unsteady gait, unable to follow direction. Returned to bed. Paracentesis ordered. Pt initially refused. Discussed with Dr. Oden. PRN Ativan 0.5mg IV administered with patient's approval to
facilitate transport to IR. Pt returned from IR increasingly belligerent. Unable to follow commands, risk to himself by attempting to get up and beginning to thrash in bed. Beginning to develop skin tears from thrashing in bed as documented in wound
care. Arguing with who is now at bedside and unable to recognize her. Dr. Oden notified. New order for Zyprexa 10mg IM administered in left deltoid. Pt remains with hallucinations. Unable to orient. Conversation incoherent but with
argumentative tone. Continuing to thrash in bed. Dr. Oden notified. New order for upgrade to ICU, Precedex gtt, and 4 point restraints. Precedex gtt titrated from RASS of 3 to -2; infusing @ 0.5 mcg/kg/hr. SaO2 98% on 2L NC. Sinus rhythm/Sinus tach
with prolonged QT on bus monitor. MAP > 65 without pressors. B/L LE edema; R > L at time of admission. Restraints changed to upper limb only. Stevens catheter in place draining cloudy priyank urine; 300ml for shift.
[2024-10-12] MEDS: NSS (PRESERVATIVE FREE) 10 ML IV (20:33)
[2024-10-12] MEDS: PROTONIX IV 40 MG IV (20:33)
[2024-10-12] MEDS: ATIVAN 0.5 MG IV (23:21)
[2024-10-13] VITALS (37 sets, daily range): BP systolic 75–155; BP diastolic 10–134; BMI 24.1
--- NOTE | 2024-10-13 00:15 | PTCARENOTE ---
Pt. assessment unchanged. Remains on precedex gtt. Continuing to assess MSAS. Medsitter in room. Periods of restlessness with increased MSAS. Vital signs stable at this time.
[2024-10-13] MEDS: LR 1000 IV ×2 (01:32→19:46)
[2024-10-13 04:30] LABS: % Basophils 0.8 % (0-2); % Eosinophils 5.3 % (0-6); % Immature Granulocytes 0.4 % (0-0.5); % Lymphocytes 15.6 % (20.5-51.1); % Monocytes 5.3 % (1.7-9.3); % Neutrophils 72.6 % (42.2-75.2); Absolute Eosinophils 0.1 10^3/uL (0-0.7); Absolute Lymphocytes 0.4 10^3/uL (1.2-3.4); Absolute Monocytes 0.1 10^3/uL (0.1-0.6); Absolute Neutrophils 1.9 10^3/uL (1.4-6.5); Hematocrit 25.7 % (39.0-52.0); Hemoglobin 8.3 g/dL (13.0-18.0); Mean Corp Hgb Conc. 32.3 g/dL (33.0-37.0); Mean Corpuscular Hgb 32.7 pg (27.0-31.0); Mean Corpuscular Volume 101.2 fL (80.0-94.0); Mean Platelet Volume 11.5 fL (7.4-10.4); Nucleated Red Blood Cells % 0 % (-); Platelet Count 41 10^3/uL (130-400); Red Blood Cell Count 2.54 10^6/uL (4.70-6.10); Red Cell Dist. Width 16.2 % (11.5-14.5); White Blood Cell Count 2.6 10^3/uL (4.8-10.8)
[2024-10-13] MEDS: PRECEDEX 100 IV (04:30)
[2024-10-13 04:36] LABS: INR 2.05; PT 23.2 Sec (11.4-14.6)
[2024-10-13 06:44] LABS: ALT (SGPT) 16 U/L (0-50); AST (SGOT) 41 U/L (17-59); Albumin 2.8 g/dl (3.5-5.0); Alkaline Phosphatase 46 U/L (38-126); Blood Urea Nitrogen 16 mg/dl (9-20); Carbon Dioxide 21 mmol/L (22-30); Chloride 114 mmol/L (98-107); Estimated Creatinine Clearance 103 ml/min; Glucose 100 mg/dl (70-99); Potassium 4.6 mmol/L (3.5-5.1); Sodium 142 mmol/L (135-145); Total Bilirubin 3.1 mg/dl (0.2-1.3); eGFR > 60.00
[2024-10-13] MEDS: SYMBICORT 160/4.5 MCG INHALER INH ×2 (08:03→19:46)
[2024-10-13] MEDS: SPIRIVA RESPIMAT 2.5 MCG INH (08:03)
[2024-10-13] MEDS: NICODERM TRANSDERMAL 7 MG TRANSDERM (08:14)
[2024-10-13] MEDS: NSS (PRESERVATIVE FREE) 10 ML IV ×2 (08:17→19:46)
[2024-10-13] MEDS: DESENEX/MITRAZOL/ZEASORB 1 APPLIC TOPICAL ×2 (08:17→19:48)
[2024-10-13] MEDS: PROTONIX IV 40 MG IV ×2 (08:17→19:46)
[2024-10-13] MEDS: PREPARATION H OINTMENT 1 APPLIC RECTAL ×2 (08:20→19:48)
--- NOTE | 2024-10-13 08:27 | PTCARENOTE ---
0700 assumed care. pt in bed. Disoriented, restless. Restraints to b/l UE. Precedex off due to SB 55 Hypertension SBP 88; NSS at 60/hr
SB 58 QT 564 QTc 51; ; BP via RT UA 93/47 MAP 62; no edema . pedal pulses present b/l LE warm to touch
POX 97%/5L of o2 RR 14;
abdomen soft non tender, round, umbilical hernia. BS +
indwelling sher draining priyank with sediment urine
--- NOTE | 2024-10-13 08:28 | W.PN.INTV ---
Today's Communication / Plan
Recommendations
Monitor BP with goal MAP >65
Trial of albumin however he may need Levophed if he continues to be hypotensive especially if it worsens
At least lactate is WNL at 1.2
Continue with aspiration precautions
Restart Precedex drip if he becomes agitated again
MSAS
May benefit from phenobarbital however family is adamant that he has not been drinking alcohol
Psychiatry recommendations appreciated
Continue with ICU level of care
Assessment
-
Assessment: 59-year-old male active tobacco smoker with a PMHx of alcoholic cirrhosis, hypertension, history of meningitis, anxiety/depression, HCV, COPD/emphysema on Breztri and history of CVA who presents with confusion and hallucinations for
about 6 days. He wears oxygen at home as needed at 2 L/min. He was recently here in the ER on 10/30 due to similar symptoms with confusion. CT head from 10/10/2024 showed no acute intracranial pathology and he was admitted to the IMU for further
care. ID and psychiatry were consulted. He did have evidence of cocaine + opiates on his urine drug screen and his alcohol level was negative. Family also denies any recent alcohol use or drug use. Unfortunately the patient's agitation continued
to escalate requiring Precedex drip with ICU transfer. [facility] services is now consulted for additional management/recommendations.
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
lobe), tobacco use disorder, history of COVID-19 (diagnosed 09/28/2024)
Impression:
#Altered mental status with acute agitation requiring Precedex drip - now off precedex gtt
#Acute on chronic respiratory failure with hypoxia (at home uses 2 L/min prn) - now back to his baseline O2 level
#Hypotension with normal lactate
#Prolonged QTc
#Decompensated alcoholic cirrhosis with history of hep C requiring scheduled paracentesis
#Portal HTN due to cirrhosis
#Pancytopenia with (baseline WBC ranging between 3.5�8; baseline Hb: 7�8.5; baseline platelets: 40�100)
#Elevated INR likely due to cirrhosis
#Metabolic acidosis with normal anion gap
#Elevated T. bili (chronic with baseline 2�3.5mg/dl)
#Abnormal urinalysis with suspected UTI with positive nitrites, +1 leukocyte esterase and many urine bacteria
#Abnormal urine drug screen with positive cocaine + opiates
#Active tobacco use disorder
#History of COVID-19 (diagnosed 09/28/2024)
#Moderate COPD on Breztri as an outpatient
#History of right frontal lobe CVA
Plan:
- Now off Precedex drip, although may need this again depending on his clinical status
- Continue with restraints and remove if he clinically improves and is cooperating
- Psychiatry consulted and recommendations appreciated
- Continue risperdal
- Trend QTc (currently 569ms from 552ms on 10/12/2024)
- Neurochecks q4hr
- He underwent a paracentesis on 10/12/2024 removing 3100 cc of clear yellow fluid
- Ascitic fluid was negative for SBP; prior SAAG was >1.1 indicative of portal HTN
- Follow up ascitic fluid Cx (NGTD) and cytopathology
- s/p 25g 25% albumin now
- GI consulted and recs appreciated
- Continue with lactulose and titrate to 3�4 loose/formed bowel movements per day --> unfortunately at the moment he is an aspiration risk so he will remain NPO; can consider Dobbhoff tube versus rectal lactulose
- Continue with rifaximin
- Trend LFTs
- Monitor abdominal distention as he may need a repeat paracentesis
- Although he has a positive urinalysis and is s/p ceftriaxone, doxycycline, and Zosyn, ID has been consulted and doubts that an infection is ongoing as a cause of his symptoms. Antibiotics were subsequently stopped; today the hospitalist restarted
doxy
- Continue to trend WBC and monitor for fevers
- If he does spike another fever then elena culture and consider broadening ABx at that point
- MSAS; continue thiamine
- Maintain SpO2 88-95%
- Continue with aspiration precautions keeping HOB >30-45�
- As long as he can properly inhale from spacer, can continue with Spiriva Respimat + Symbicort, otherwise we will need to transition everything to nebulized medications
- Apply nicotine patch
- prn Duonebs - not currently bronchospastic
Monitor BP; goal MAP >65; lactate is WNL and blood gas shows pH 7.32, hence hypotension is not due to acidosis; he is s/p albumin and he may need Levophed if he remains/continues to be hypotensive
- Change PO meds to IV until mentation improves
- Trend sHCO3 level
- Replete electrolytes with K>4, Mg>2
- Maintain euglycemia with goal BG 140-180
- Trend H/H and transfuse if needed to keep Hb>7g/dL; keep plt>20k, unless there is concern for bleeding then keep plt>50k
- Continue PPI 40mg BID (home med) --> changed PO to IV
- DVT ppx: LMWH
Total time spent today was 76 minutes for this encounter. Time includes reviewing laboratory test/imaging results, reviewing pertinent medical records, obtaining and reviewing medical history, performing an appropriate exam, ordering medications,
tests and procedures. Time also includes documentation of this encounter, coordinating patient care and communicating with other healthcare professionals. Total time does not include separately billed tests performed on this date of service.
Data:
CXR 10/11/2024: No active cardiopulmonary disease.
CT Head 10/10/2024: Compared to prior CT head from 08/14/2024
No acute intracranial pathology. 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 Stable. Sequela of previous trauma cannot be excluded. Mild nonacute sinusitis. Progressed.
Subjective Dataa
Subjective Data
Date of Service:
Date of Service: October 13, 2024
Chief Complaint: [facility] Follow Up
Subjective:
Patient seen this morning and he was resting in bed, sleeping in bed in NAD. Pt's sister, Kirti, and [id number], Kishan, at bedside. Also spoke with patient's , Cherise, on the phone. Patient's heart rate is 55, BP 81/45, QTc 569 MS and he
is saturating 99% on 2 L/min.
Review of Systems
General: Other (Unable to obtain as patient is altered/confused)
Objective Data
Data Reviewed
Vital Signs / I&O / Oxygen:
Vital Signs
Temp Pulse Resp BP Pulse Ox
98 F 60 17 90/41 96
10/13/24 04:00 10/13/24 06:30 10/13/24 06:30 10/13/24 06:16 10/13/24 06:30
Intake and Output
10/12/24 10/13/24 10/14/24
06:59 06:59 06:59
Intake Total 100 / 100 808.1 / 868.1 120 / 120
Output Total 250 / 250 550 / 600 100 / 100
Balance -150 / -150 258.1 / 268.1
SaO2 96
Nasal Cannula flow liters per 6
minute
Physical Exam
General: Respiratory Distress (negative), Comfortable, Chills (negative) and Sweats (negative)
HEENT: Normocephalic
Cardiovascular: S1-S2, Rub (negative) and Peripheral Edema (negative)
Respiratory: Clear, Wheeze (negative), Crackles (negative), Rhonchi (negative) and Non-Labored Respirations
GI: Soft, Distended, Non Tender and Normal Bowel Sounds
Neurology: Tremors (negative) and Lethargic
Skin: Warm, Dry and Cyanosis (negative)
Labs/Micro/Reports
Lab Data
10/13/24 03:58
10/13/24 05:51
Laboratory Results
10/13/24
03:58
PT 23.2 H
INR 2.05
Microbiology
10/11/24 16:00 Blood/Venous Blood Culture - Preliminary
No Growth in 24 hours- Final report to follow
10/11/24 16:00 Blood/Venous Blood Culture - Preliminary
No Growth in 24 hours- Final report to follow
10/12/24 09:12 Peritoneal Fluid Gram Stain - Preliminary
10/11/24 16:00 Urine Urine Culture - Final
NO GROWTH
--- NOTE | 2024-10-13 09:44 | W.PN.ID1 ---
Date of Service
Date of Service: October 13, 2024
Today's Communication
Continue doxycycline prophylaxis.
Assessment / Plan
Worsening confusion
� TME likely secondary to worsening overall liver function.
� No infectious process immediately identifiable
Advanced / End-stage Cirrhosis
Hx Upper GI bleed
COPD
Hx Recurrent SBP
Hepatic encephalopathy
Hx of CVA
Recommendations:
At this time, no infectious processes immediately identifiable. White count is normal, as is differential.
No evidence of SBP.
Suspect worsening encephalopathy is secondary to advancing liver failure.
IV antibiotics previously discontinued. Patient has been placed back on suppressive doxycycline for recurrent SBP prophylaxis.
Overall prognosis appears poor.
����������������������������������������������������������
Chief Complaint
-: Other (Encephalopathy)
Subjective / Review of Systems
Patient seen and examined. Remains confused, although less agitated than yesterday.
Vital Signs / Physical Exam
Vital Signs
Vital Signs
Temp Pulse Resp BP Pulse Ox
98 F 60 17 90/41 96
10/13/24 04:00 10/13/24 06:30 10/13/24 06:30 10/13/24 06:16 10/13/24 06:30
Physical Exam
Constitutional: No Acute Distress, Comfortable, Chronically Ill and Non-toxic
Head: Normocephalic
Cardiovascular: Regular Rate and S1/S2
Pulmonary: Clear and Non Labored
Gastrointestinal: Soft, Non Tender, Distended and Normal Bowel Sounds
Extremities: Edema; Negative Cyanosis
Neurological: Other (Easily arousable)
Psychological: Calm
Objective Data
Lab Data
Lab Results
10/13/24 03:58
10/13/24 05:51
PT 23.2 Sec (11.4-14.6) H 10/13/24 03:58
INR 2.05 10/13/24 03:58
APTT 44.4 Sec (23.4-35.0) H 10/11/24 16:00
Estimated Creat Clear 103 ml/min 10/13/24 05:51
Lactic Acid Cancelled 10/11/24 19:30
Total Bilirubin 3.1 mg/dl (0.2-1.3) H 10/13/24 05:51
AST 41 U/L (17-59) 10/13/24 05:51
ALT 16 U/L (0-50) 10/13/24 05:51
Alkaline Phosphatase 46 U/L (38-126) 10/13/24 05:51
Most recent labs reviewed.
Micro Results:
10/11/24 16:00 Blood Culture - Preliminary
Blood/Venous No Growth in 24 hours- Final report to follow
10/11/24 16:00 Blood Culture - Preliminary
Blood/Venous No Growth in 24 hours- Final report to follow
10/12/24 09:12 Body Fluid Culture - Pending
Peritoneal Fluid Gram Stain - Preliminary
10/11/24 16:00 Urine Culture - Final
Urine NO GROWTH
Imaging:
09/26/2024 CT abdomen/pelvis with IV contrast: There is mild wall thickening of the distal esophagus suggesting esophagitis. Subtle liver surface nodularity consistent with history of cirrhosis. There is evidence of portal hypertension with
splenomegaly and extensive portosystemic venous collaterals. Mild ascites is noted. Minor diverticulosis without acute diverticulitis. A nonobstructing 8 mm left ureteropelvic junction calculus is noted and similar to prior examinations. Please
see full dictation for additional detail. Film personally viewed.
[2024-10-13 10:23] LABS: Venous Blood Gas B.E. -1.9 mmol/L (-4 to +4); Venous Blood Gas HCO3 24.2 mmol/L (22-27); Venous Blood Gas O2 Sat % 99.8 %; Venous Blood Gas pCO2 47 mmHg (35-48); Venous Blood Gas pH 7.32 (7.32-7.43); Venous Blood Gas pO2 165 mmHg (30-50)
[2024-10-13 10:50] LABS: Lactic Acid 1.2 mmol/L (0.7-2.0)
[2024-10-13] MEDS: RISPERDAL M-TAB (ORALLY DISINTEGRATING) 0.25 MG PO ×2 (10:58→19:46)
[2024-10-13] MEDS: FLEXBUMIN 100 IV (11:00)
--- NOTE | 2024-10-13 11:16 | W.PN.UPDATE ---
Update Note
Progress Note Update
Patient is less agitated although still in soft restraints to his wrists. He is oriented to time. place and person. Still has very poor attention span and cannot perform simple tasks. He easily drifts off into sleep.
There is however improvement in his level of agitation and confusion.
Would continue the Risperdal 0.25 mg bid and the prn Ativan.
Will continue F/U.
[2024-10-13] MEDS: DUPHALAC/CHRONULAC 20 GRAMS PO ×3 (11:28→22:21)
[2024-10-13] MEDS: FEOSOL 325 MG PO (11:28)
[2024-10-13] MEDS: FOLVITE 1 MG PO (11:28)
[2024-10-13] MEDS: VITAMIN B1 100 MG PO (11:28)
[2024-10-13] MEDS: XIFAXAN 550 MG PO ×2 (11:32→19:46)
[2024-10-13] MEDS: MAGNESIUM OXIDE 500 MG PO ×2 (11:32→19:46)
--- NOTE | 2024-10-13 12:06 | W.PN.GI.CBS2 ---
Today's Communication / Plan
-
continue supportive care
Assessment / Plan
-
Mr Mazariegos is a 59 y.o male well-known to GI group with past medical history significant for decompensated cirrhosis (HCV vs EtOH) with intractable ascites with weekly para, HE, GI bleeding by recurrent hospitalizations with HE secondary to
acute on chronic GI bleeding 2/2 PHG gastric varix, hx of prior post-polypectomy bleed, prior transfer to [place] for Ultrasound guided gastric artery coiling procedure, chronic HCV (s/p treatment with Epclusa s/p SVR), CVA, HTN, COPD, and chronic
thrombocytopenia. He also had recent SBP, covid, ecoli ESBL blood/peritoneal fluid, and UTI. He now presents with recurrent evaluation with confusion. Since admission currently no signs of infection and neg SBP with cultures pending. He is also
noted with + tox screen for cocaine on admission along with bleeding from gums.
-confusion with agitation etiology med related vs other
-hx GI bleeding with -hx recent EGD with type 1 isolated gastric varix with transfer to [place] with gastric artery coiling 09/2024
-recurrent Anemia
-recent SBP on chronic abx
-recent covid
-recent UTI/ecoli ESBL bacteremia
-Decompensated alcoholic/Hep C liver cirrhosis, MELD 3.0 - transplant held with + PETH awaiting counseling
-Chronic thrombocytopenia
-hx HE
-Ascites, requiring near weekly paracentesis
-Chronic hyponatremia
-Hyperbilirubinemia, chronic
-AFP 30 in March 2024, was in the 10-12 range
-Hx Hep C s/p tx with Epclusa with SVR
-portal hypertension
-+ tox screen may be false +
Other pertinent medical history:
-Chronic pain
-GERD
-Hypertension
-Anxiety
-hx colon polyps with prior bleeding with polyp removal and placement of Ovesco clip-- last colon with retained polyps note removed in setting of GI bleed
-hx hemorrhoids
-skin Ca s/p recent Mohs surgery
Recommendations:
Etiology to agitation related to medication with recent Atarax and Trazadone use, advancing liver disease, HE though ammonia level 11, recurrent infection with current cx data neg so far vs other
family denies use of recent Drug or ETOH use
cont abx for SBP prophylaxsis
trend labs with hx recurrent GI bleeding
cont PPI BID
diet as tolerated when able
MELD 3.0 17 on admission
appreciate psych, for agitation and ID to rule out infectious etiology
Continue lactulose and Xifaxan
Overall prognosis is very poor but patient's and family would like him to be full code and are not ready for hospice care.
Subjective
Subjective
Date of Service: October 13, 2024
Patient is more awake and oriented to person and place, he is off the Precedex, less agitated, noted input from psychiatry continue Risperdal and Ativan as needed
Objective
Data Reviewed
Laboratory Data:
Laboratory Results
10/13/24 03:58
10/13/24 05:51
Laboratory Results
PT 23.2 Sec (11.4-14.6) H 10/13/24 03:58
INR 2.05 10/13/24 03:58
APTT 44.4 Sec (23.4-35.0) H 10/11/24 16:00
Magnesium 1.6 mg/dl (1.6-2.3) 10/11/24 16:00
Total Bilirubin 3.1 mg/dl (0.2-1.3) H 10/13/24 05:51
AST 41 U/L (17-59) 10/13/24 05:51
ALT 16 U/L (0-50) 10/13/24 05:51
Alkaline Phosphatase 46 U/L (38-126) 10/13/24 05:51
Vital Signs and I&O:
Vital Signs
Temp Pulse Resp BP Pulse Ox
98 F 60 17 90/41 96
12/07/24 04:00 10/13/24 06:30 10/13/24 06:30 10/13/24 06:16 10/13/24 06:30
I&O
10/12/24 10/13/24 10/14/24
06:59 06:59 06:59
Intake Total 100 / 100 808.1 / 868.1 120 / 120
Output Total 250 / 250 550 / 600 100 / 100
Balance -150 / -150 258.1 / 268.1
Physical Exam
Physical Exam
Cardiology: Normal Sinus Rhythm
Pulmonary: Clear
GI: Soft, Distended (Mildly distended), Non Tender and Normal Bowel Sounds
--- NOTE | 2024-10-13 12:30 | W.PN.HOSP.TC ---
Today's Communication/Plan
-
Monitor vital signs see plan
Currently off Precedex
Monitor on Risperdal, Ativan
Overall prognosis very poor; spouse aware
restraints prn
monitor hgb
Discussed with at bedside
Assessment / Plan
Assessment / Plan
General: Well Developed,no distress
HEENT: NormoCephalic, Moist mucous membranes, Atraumatic, Other (broken lower right tooth)
Respiratory: Clear, Wheezes and Non Labored Respirations
Cardiac: S1/S2 and Regular Rhythm
GI: Soft, Normal Bowel Sounds and Tender
Genito-urinary: Stevens
Musculoskeletal: No Edema
Neuro: Awake, not alert and oriented
Psych:calm
Agitation, hallucination could likely be multifactorial secondary to TME,medication use, +- cocaine use
per spouse patient is currently not using any drugs; could be false +
UDS positive for opioids, cocaine. did got morphine a day prior in ED
psych following; on Risperdal and ativan
now off precedex; monitor
Unclear when his last alcohol use was
Does have history of advanced liver disease and hepatic encephalopathy
Continue with lactulose and rifaximin
Antibiotic discontinued by ID, monitor. agree no clear infection
cw restraints prn
Overall prognosis is very poor but patient's and family would like him to be full code and are not ready for hospice care
stop atarax and trazadone
Acute hypoxic respiratory failure likely secondary to TME and possible aspiration event
Continue to wean oxygen as tolerated
End-stage liver disease
s/p para 12/6. monitor
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
HYpotension 2/2 cirrhosis
albumin
pancytopenia likely secondary to cirrhosis
Monitor
Anemia of chronic disease secondary to liver cirrhosis
Monitor
Recurrent upper GI bleeding likely secondary to portal hypertensive gastropathy
h/o gastric varices s/p gastric artery coiling 09/2024
HCV s/p tx with Epclusa
Chronic pain
Essential hypertension: Cont lasix/aldactone
GERD: Cont PPI
h/o skin cancer s/p Mohs surgery
Anxiety
COPD: Cont Symbicort/Spiriva
recent Covid infection
Hx ascites r/t portal vein HTN from decompensated cirrhosis
History insomnia
On trazodone, hold for now
Code Status: Full Code
DVT Px: SCDs,lovenox
I spent a total of 52 minutes with the patient or on the floor. More than 50% of this time involved counseling and coordination of care.
Anticipated Discharge: > 48 hours
Subjective/Interval History
-
Date of Service: October 13, 2024
calmer this morning
Objective Data
-
Labs:
Laboratory Results
10/13/24 10/13/24
03:58 05:51
WBC 2.6 L
Hgb 8.3 L
Hct 25.7 L
Plt Count 41 L D
PT 23.2 H
INR 2.05
Sodium Cancelled 142
Potassium Cancelled 4.6
Chloride Cancelled 114 H
Carbon Dioxide Cancelled 21 L
BUN Cancelled 16
Creatinine Cancelled 0.8
Glucose Cancelled 100 H
Calcium Cancelled 8.0 L
Total Bilirubin Cancelled 3.1 H
AST Cancelled 41
ALT Cancelled 16
Alkaline Phosphatase Cancelled 46
Vital Signs:
Vital Signs
Temp Pulse Resp BP Pulse Ox
98 F 56 15 98/46 98
10/13/24 04:00 10/13/24 12:00 10/13/24 12:00 10/13/24 12:00 10/13/24 12:16
I&O
1210/13/24 10/14/24
06:59 06:59 06:59
Intake Total 100 / 100 808.1 / 868.1 420 / 420
Output Total 250 / 250 550 / 600 100 / 100
Balance -150 / -150 258.1 / 268.1 320 / 320
--- NOTE | 2024-10-13 12:42 | PTCARENOTE ---
Albumin 25%/100ml completed BP 155/64 (checked twice for obduracy) POX on 2L/88% on 3L/96%
continues with intermittent confusion and restless episodes . All po medications adm
[2024-10-13] MEDS: VIBRAMYCIN 100 MG PO (14:18)
[2024-10-13] MEDS: ULTRAM 50 MG PO (14:21)
[2024-10-13] MEDS: LOVENOX SC (15:11)
--- NOTE | 2024-10-13 15:35 | PTCARENOTE ---
Unable to obtain oral and axillary temp . Rectal temp 92.5 hill huger initiated.
--- NOTE | 2024-10-13 15:49 | PTCARENOTE ---
restraints taking off . bed seater in place to monitor patient
--- NOTE | 2024-10-13 17:59 | PTCARENOTE ---
Patient in bed. Neuro status wax and wean from been AAO x3 to intermittent confusion. Severe tremors B/L UE. BP 100/51 MAP 66 Sr 63. Rectal temp 94.1 on 2L via nasal canula. Parth huger on medium settings. Indwelling Stevens draining priyank with
sediment urine. LR at 60/hr via left hand peripheral line. No BM this shift . 100% dinner consumption , tolerating with N/V. Lovenox held due to low Plt. Chronic back pain Tramadol adm earlier with pain improvement call caballero within reach
--- NOTE | 2024-10-13 20:00 | PTCARENOTE ---
Received patient at 1900. Pt. currently awake. Oriented to self and place. Forgetful about current situation/hospitalization. Denies pain/discomfort. Afebrile. Heart rhythm sinus. Currently on room air. Lungs sound diminished. Regular diet, good
appetite. Stevens catheter in place, draining without issue. Skin as documented. Discussed plan of care with patient. Vital signs stable at this time.
[2024-10-14] VITALS (24 sets, daily range): BP systolic 92–138; BP diastolic 42–81; PULSE 87–88; BMI 25.1
[2024-10-14 05:44] LABS: ALT (SGPT) 16 U/L (0-50); AST (SGOT) 37 U/L (17-59); Alkaline Phosphatase 56 U/L (38-126); Blood Urea Nitrogen 22 mg/dl (9-20); Calcium 8.3 mg/dl (8.4-10.2); Carbon Dioxide 20 mmol/L (22-30); Chloride 112 mmol/L (98-107); Estimated Creatinine Clearance 75 ml/min; Glucose 74 mg/dl (70-99); Potassium 3.9 mmol/L (3.5-5.1); Sodium 140 mmol/L (135-145); Total Bilirubin 2.8 mg/dl (0.2-1.3); Total Protein 5.2 g/dl (6.3-8.2); eGFR > 60.00
[2024-10-14 05:55] LABS: % Basophils 0.8 % (0-2); % Immature Granulocytes 0.4 % (0-0.5); % Lymphocytes 13.1 % (20.5-51.1); % Monocytes 6.1 % (1.7-9.3); % Neutrophils 75.6 % (42.2-75.2); Absolute Eosinophils 0.2 10^3/uL (0-0.7); Absolute Lymphocytes 0.6 10^3/uL (1.2-3.4); Absolute Monocytes 0.3 10^3/uL (0.1-0.6); Absolute Neutrophils 3.6 10^3/uL (1.4-6.5); Hematocrit 25.2 % (39.0-52.0); Mean Corp Hgb Conc. 31.7 g/dL (33.0-37.0); Mean Corpuscular Volume 100.8 fL (80.0-94.0); Mean Platelet Volume 11.1 fL (7.4-10.4); Nucleated Red Blood Cells % 0 % (-); Platelet Count 51 10^3/uL (130-400); Red Cell Dist. Width 16.4 % (11.5-14.5); White Blood Cell Count 4.8 10^3/uL (4.8-10.8)
[2024-10-14] MEDS: SYMBICORT 160/4.5 MCG INHALER INH ×2 (07:52→20:41)
[2024-10-14] MEDS: SPIRIVA RESPIMAT 2.5 MCG INH (07:52)
--- NOTE | 2024-10-14 08:31 | W.PN.INTV ---
Today's Communication / Plan
Recommendations
Monitor BP with goal MAP >65
MSAS
Psychiatry recommendations appreciated - wean down on risperdal
Outpatient GI/hepatology follow-up with follow-up with the transplant psychological anthropologist
Daughter was asking today about the patient going to a [place] facility following his discharge as she does not believe that he can properly take care of himself at home; I advised the family to speak to social work about this
Patient is stable for downgrade out of ICU to telemetry. No additional recommendations at this time. Coagulator/Pulmonary service will now sign off. Please reconsult if there are any additional questions/concerns, or if patient's respiratory
status deteriorates.
Assessment
-
Assessment: 59-year-old male active tobacco smoker with a PMHx of alcoholic cirrhosis, hypertension, history of meningitis, anxiety/depression, HCV, COPD/emphysema on Breztri and history of CVA who presents with confusion and hallucinations for
about 6 days. He wears oxygen at home as needed at 2 L/min. He was recently here in the ER on 10/30 due to similar symptoms with confusion. CT head from 10/10/2024 showed no acute intracranial pathology and he was admitted to the IMU for further
care. ID and psychiatry were consulted. He did have evidence of cocaine + opiates on his urine drug screen and his alcohol level was negative. Family also denies any recent alcohol use or drug use. Unfortunately the patient's agitation continued
to escalate requiring Precedex drip with ICU transfer. Coagulator services is now consulted for additional management/recommendations.
Chronic conditions VENEER DRIER: Hypertension, alcoholic cirrhosis, meningitis, anxiety/depression, history of umbilical + testicular hernia, history of hepatitis C virus, pneumonia, history of emphysema/COPD on Breztri, history of stroke (right frontal
lobe), tobacco use disorder, history of COVID-19 (diagnosed 09/28/2024)
Impression:
#Altered mental status with acute agitation requiring Precedex drip - now off precedex gtt
#Acute on chronic respiratory failure with hypoxia (at home uses 2 L/min prn) - now on room air
#Hypotension with normal lactate - now normotensive
#Prolonged QTc
#Decompensated alcoholic cirrhosis with history of hep C requiring scheduled paracentesis
#Portal HTN due to cirrhosis
#Pancytopenia with (baseline WBC ranging between 3.5�8; baseline Hb: 7�8.5; baseline platelets: 40�100)
#Elevated INR likely due to cirrhosis
#Metabolic acidosis with normal anion gap
#Elevated T. bili (chronic with baseline 2�3.5mg/dl) - back to his baseline
#Abnormal urinalysis with suspected UTI with positive nitrites, +1 leukocyte esterase and many urine bacteria
#Abnormal urine drug screen with positive cocaine + opiates
#Active tobacco use disorder
#History of COVID-19 (diagnosed 09/28/2024)
#Moderate COPD on Breztri as an outpatient
#History of right frontal lobe CVA
Plan:
- Now off Precedex drip and he is calm and cooperative
- Psychiatry consulted and recommendations appreciated
- Continue risperdal and try to wean him off this going forward
- Trend QTc (569ms yesterday from 552ms on 10/12/2024)
- Neurochecks no longer needed
- He underwent a paracentesis on 10/12/2024 removing 3100 cc of clear yellow fluid
- Ascitic fluid was negative for SBP; prior SAAG was >1.1 indicative of portal HTN
- Follow up ascitic fluid Cx (NGTD) and cytopathology
- s/p 25g 25% albumin
- GI consulted and recs appreciated
- Continue with lactulose and titrate to 3�4 loose/formed bowel movements per day
- Continue with rifaximin
- Trend LFTs
- Monitor abdominal distention as he may need a repeat paracentesis
- Although he has a positive urinalysis and is s/p ceftriaxone, doxycycline, and Zosyn, ID has been consulted and doubts that an infection is ongoing as a cause of his symptoms. Antibiotics were subsequently stopped; hospitalist restarted doxy on
10/13
- Continue to trend WBC and monitor for fevers
- If he does spike another fever then elena culture and consider broadening ABx at that point
- MSAS; continue thiamine
- Maintain SpO2 88-95%
- Continue with aspiration precautions keeping HOB >30-45�
- As long as he can properly inhale from spacer, can continue with Spiriva Respimat + Symbicort, otherwise we will need to transition everything to nebulized medications
- Continue nicotine patch
- prn Duonebs - not currently bronchospastic
- Monitor BP; goal MAP >65; lactate is WNL and blood gas shows pH 7.32, hence hypotension was not due to acidosis; he is s/p albumin
- Trend sHCO3 level
- Replete electrolytes with K>4, Mg>2
- Maintain euglycemia with goal BG 140-180
- Trend H/H and transfuse if needed to keep Hb>7g/dL; keep plt>20k, unless there is concern for bleeding then keep plt>50k
- Continue PPI 40mg BID (home med) --> would change back from IV to PO now that his mentation is back to normal
- DVT ppx: LMWH
Patient is stable for downgrade out of ICU to telemetry. No additional recommendations at this time. Coagulator/Pulmonary service will now sign off. Thank you for allowing us to be involved in the care of this patient. Please reconsult if there
are any additional questions/concerns, or if patient's respiratory status deteriorates.
Total time spent today was 38 minutes for this encounter. Time includes reviewing laboratory test/imaging results, reviewing pertinent medical records, obtaining and reviewing medical history, performing an appropriate exam, ordering medications,
tests and procedures. Time also includes documentation of this encounter, coordinating patient care and communicating with other healthcare professionals. Total time does not include separately billed tests performed on this date of service.
Data:
CXR 10/11/2024: No active cardiopulmonary disease.
CT Head 10/10/2024: Compared to prior CT head from 08/14/2024
No acute intracranial pathology. 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 Stable. Sequela of previous trauma cannot be excluded. Mild nonacute sinusitis. Progressed.
Subjective Dataa
Subjective Data
Date of Service:
Date of Service: October 14, 2024
Chief Complaint: Coagulator Follow Up
Subjective:
Patient seen and evaluated today at bedside. He is on room air saturating 98% today and he is awake, alert, answering my questions appropriately and is calm without agitation. Remains off Precedex drip. Multiple family was at bedside including
daughter, and I answered all their questions.
Review of Systems
General: Other (Negative unless mentioned above)
Objective Data
Data Reviewed
Vital Signs / I&O / Oxygen:
Vital Signs
Temp Pulse Resp BP Pulse Ox
99 F 79 26 108/54 96
10/14/24 04:00 10/14/24 06:30 10/14/24 06:30 10/14/24 06:00 10/14/24 06:30
Intake and Output
10/13/24 10/14/24 10/15/24
06:59 06:59 06:59
Intake Total 808.1 / 868.1 2079 / 2079
Output Total 550 / 600 400 / 400
Balance 258.1 / 268.1 1680 / 1680
SaO2 96
Nasal Cannula flow liters per 6
minute
Physical Exam
General: Respiratory Distress (negative), Comfortable, Chills (negative) and Sweats (negative)
HEENT: Normocephalic
Cardiovascular: S1-S2, Rub (negative) and Peripheral Edema (negative)
Respiratory: Clear, Wheeze (negative), Crackles (negative), Rhonchi (negative) and Non-Labored Respirations
GI: Soft, Distended, Non Tender and Normal Bowel Sounds
Neurology: AO x 3 and Tremors (negative)
Skin: Warm, Dry and Cyanosis (negative)
Labs/Micro/Reports
Lab Data
10/14/24 04:38
10/14/24 04:38
Microbiology
10/11/24 16:00 Blood/Venous Blood Culture - Preliminary
No Growth in 48 hours- Final report to follow
10/11/24 16:00 Blood/Venous Blood Culture - Preliminary
No Growth in 48 hours- Final report to follow
10/12/24 09:12 Peritoneal Fluid Body Fluid Culture - Preliminary
No Growth After 18-24 Hours
10/12/24 09:12 Peritoneal Fluid Gram Stain - Preliminary
10/11/24 16:00 Urine Urine Culture - Final
NO GROWTH
[2024-10-14] MEDS: DESENEX/MITRAZOL/ZEASORB 1 APPLIC TOPICAL ×2 (09:51→21:35)
[2024-10-14] MEDS: NSS (PRESERVATIVE FREE) 10 ML IV ×2 (09:52→21:36)
[2024-10-14] MEDS: FOLVITE 1 MG PO (09:52)
[2024-10-14] MEDS: VIBRAMYCIN 100 MG PO (09:52)
[2024-10-14] MEDS: PROTONIX IV 40 MG IV ×2 (09:52→21:36)
[2024-10-14] MEDS: RISPERDAL M-TAB (ORALLY DISINTEGRATING) 0.25 MG PO ×2 (09:53→21:43)
[2024-10-14] MEDS: VITAMIN B1 100 MG PO (09:53)
[2024-10-14] MEDS: PREPARATION H OINTMENT RECTAL (09:53)
[2024-10-14] MEDS: MAGNESIUM OXIDE 500 MG PO ×2 (09:53→21:35)
[2024-10-14] MEDS: FEOSOL 325 MG PO (09:54)
[2024-10-14] MEDS: XIFAXAN 550 MG PO ×2 (09:54→21:35)
[2024-10-14] MEDS: NICODERM TRANSDERMAL 7 MG TRANSDERM (09:54)
[2024-10-14] MEDS: DUPHALAC/CHRONULAC PO ×5 (09:54→21:41)
[2024-10-14] MEDS: ULTRAM 50 MG PO (10:01)
--- NOTE | 2024-10-14 10:03 | PTCARENOTE ---
0700 patient in bed,
AAO 3 c/o back pain. Tremors b/l UE +1 b/l LE
SR to ST 109; BP via RT upper arm 126*49 MAP 72 RR 29; 91 RA QTc 532 QT 408;
Abdomen round. BM x 2
Stevens draining dark priyank urine
peripheral line x 2 left UE capped flushed
Transfer to chair one person assist gait unsteady
--- NOTE | 2024-10-14 10:50 | PTCARENOTE ---
sher removed BM x 2 this am . Lactulose on hold per GI
--- NOTE | 2024-10-14 10:57 | W.PN.GI.CBS2 ---
Today's Communication / Plan
-
continue supportive care and current meds
2 gm sodium diet
Assessment / Plan
-
Mr Mazariegos is a 59 y.o male well-known to GI group with past medical history significant for decompensated cirrhosis (HCV vs EtOH) with intractable ascites with weekly para, HE, GI bleeding by recurrent hospitalizations with HE secondary to
acute on chronic GI bleeding 2/2 PHG gastric varix, hx of prior post-polypectomy bleed, prior transfer to [place] for Ultrasound guided gastric artery coiling procedure, chronic HCV (s/p treatment with Epclusa s/p SVR), CVA, HTN, COPD, and chronic
thrombocytopenia. He also had recent SBP, covid, ecoli ESBL blood/peritoneal fluid, and UTI. He now presents with recurrent evaluation with confusion. Since admission currently no signs of infection and neg SBP with cultures pending. He is also
noted with + tox screen for cocaine on admission along with bleeding from gums.
-confusion with agitation etiology med related vs other
-hx GI bleeding with -hx recent EGD with type 1 isolated gastric varix with transfer to [place] with gastric artery coiling 09/2024
-recurrent Anemia
-recent SBP on chronic abx
-recent covid
-recent UTI/ecoli ESBL bacteremia
-Decompensated alcoholic/Hep C liver cirrhosis, MELD 3.0 - transplant held with + PETH awaiting counseling
-Chronic thrombocytopenia
-hx HE
-Ascites, requiring near weekly paracentesis
-Chronic hyponatremia
-Hyperbilirubinemia, chronic
-AFP 30 in March 2024, was in the 10-12 range
-Hx Hep C s/p tx with Epclusa with SVR
-portal hypertension
-+ tox screen may be false +
Other pertinent medical history:
-Chronic pain
-GERD
-Hypertension
-Anxiety
-hx colon polyps with prior bleeding with polyp removal and placement of Ovesco clip-- last colon with retained polyps note removed in setting of GI bleed
-hx hemorrhoids
-skin Ca s/p recent Mohs surgery
Recommendations:
Etiology to agitation related to medication with recent Atarax and Trazadone use, advancing liver disease, HE though ammonia level 11, recurrent infection with current cx data neg so far vs other
UDS positive for cocaine and opiates
cont abx for SBP prophylaxsis
trend labs with hx recurrent GI bleeding
cont PPI BID
diet advanced
Continue lactulose- held today already had 5 BM's and Xifaxan
Reinforced strict alcohol abstinence and avoiding drugs and polypharmacy use
Overall prognosis is very poor but patient's and family would like him to be full code and are not ready for hospice care.
Subjective
Subjective
Date of Service: October 14, 2024
patient markedly improved awake sitting in chair and ate breakfast he had 4-5 bowel movements today
Objective
Data Reviewed
Laboratory Data:
Laboratory Results
10/14/24 04:38
10/14/24 04:38
Laboratory Results
PT 23.2 Sec (11.4-14.6) H 10/13/24 03:58
INR 2.05 10/13/24 03:58
APTT 44.4 Sec (23.4-35.0) H 10/11/24 16:00
Magnesium 1.6 mg/dl (1.6-2.3) 10/11/24 16:00
Total Bilirubin 2.8 mg/dl (0.2-1.3) H 10/14/24 04:38
AST 37 U/L (17-59) 10/14/24 04:38
ALT 16 U/L (0-50) 10/14/24 04:38
Alkaline Phosphatase 56 U/L (38-126) 10/14/24 04:38
Vital Signs and I&O:
Vital Signs
Temp Pulse Resp BP Pulse Ox
99 F 79 26 108/54 96
10/14/24 04:00 10/14/24 06:30 10/14/24 06:30 10/14/24 06:00 10/14/24 06:30
I&O
10/13/24 10/14/24 10/15/24
06:59 06:59 06:59
Intake Total 808.1 / 868.1 2079 / 2079 240 / 240
Output Total 550 / 600 400 / 400 100 / 100
Balance 258.1 / 268.1 1680 / 1680 140 / 140
Physical Exam
Physical Exam
Cardiology: Normal Sinus Rhythm
Pulmonary: Clear
GI: Soft, Distended (Mildly distended), Non Tender and Normal Bowel Sounds
--- NOTE | 2024-10-14 11:20 | W.PN.UPDATE ---
Update Note
Progress Note Update
Patient is doing much better, not agitated, sitting calmly in his chair. Oriented in all spheres. Still has poor immediate recall.
Affect and mood WNR.
As the delirium is largely resolved will taper off the Risperdal.
Will continue F/U.
--- NOTE | 2024-10-14 13:10 | W.PN.HOSP.TC ---
Today's Communication/Plan
-
Monitor vital signs
see plan
Mental status appears to be improving, psych following
Transfer out of ICU
DC Sher
Monitor mental status closely
Assessment / Plan
Assessment / Plan
General: Well Developed,no distress
HEENT: NormoCephalic, Moist mucous membranes, Atraumatic, Other (broken lower right tooth)
Respiratory: Clear, Wheezes and Non Labored Respirations
Cardiac: S1/S2 and Regular Rhythm
GI: Soft, Normal Bowel Sounds and Tender
Genito-urinary: Sher
Musculoskeletal: No Edema
Neuro: Awake, not alert and oriented
Psych:calm
Agitation, hallucination could likely be multifactorial secondary to TME,medication use, +/- cocaine use
per spouse patient is currently not using any drugs; could be false +. patient denies any cocaine use
mental status better today; psych following. Still has periods of paranoia at times which could be related to hepatic encephalopathy
UDS positive for opioids, cocaine. did got morphine a day prior in ED
psych following; on Risperdal and ativan
now off precedex; monitor
Unclear when his last alcohol use was
Does have history of advanced liver disease and hepatic encephalopathy
Continue with lactulose and rifaximin
Antibiotic discontinued by ID, monitor. agree no clear infection
cw restraints prn
Overall prognosis is very poor but patient's and family would like him to be full code and are not ready for hospice care
stop atarax and trazadone
sher was placed on admission; DC sher
Acute hypoxic respiratory failure likely secondary to TME and possible aspiration event
resolved
Continue to wean oxygen as tolerated, now off o2
End-stage liver disease
s/p para 12/. monitor
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
HYpotension 2/2 cirrhosis
albumin
now BP better
right molar tooth pain
needs to be seen by dentist outpatient
pancytopenia likely secondary to cirrhosis
Monitor
Anemia of chronic disease secondary to liver cirrhosis
Monitor
Recurrent upper GI bleeding likely secondary to portal hypertensive gastropathy
h/o gastric varices s/p gastric artery coiling 09/2024
HCV s/p tx with Epclusa
Chronic pain
Essential hypertension: Cont lasix/aldactone
GERD: Cont PPI
h/o skin cancer s/p Mohs surgery
Anxiety
COPD: Cont Symbicort/Spiriva
recent Covid infection
Hx ascites r/t portal vein HTN from decompensated cirrhosis
History insomnia
On trazodone, hold for now
Code Status: Full Code
DVT Px: SCDs
I spent a total of 51 minutes with the patient or on the floor. More than 50% of this time involved counseling and coordination of care.
Anticipated Discharge: > 48 hours
Subjective/Interval History
-
Date of Service: October 14, 2024
calm this morning
Objective Data
-
Labs:
Laboratory Results
10/14/24
04:38
WBC 4.8
Hgb 8.0 L
Hct 25.2 L
Plt Count 51 L D
Sodium 140
Potassium 3.9
Chloride 112 H
Carbon Dioxide 20 L
BUN 22 H
Creatinine 1.1
Glucose 74
Calcium 8.3 L
Total Bilirubin 2.8 H
AST 37
ALT 16
Alkaline Phosphatase 56
Vital Signs:
Vital Signs
Temp Pulse Resp BP Pulse Ox
98.6 F 78 17 122/52 94
10/14/24 11:17 10/14/24 12:30 10/14/24 12:30 10/14/24 12:00 10/14/24 12:30
I&O
10/13/24 10/14/24 10/15/24
06:59 06:59 06:59
Intake Total 808.1 / 868.1 2079 240 / 240
Output Total 550 / 600 400 / 400 100 / 100
Balance 258.1 / 268.1 1680 / 1680 140 / 140
--- NOTE | 2024-10-14 18:29 | PTCARENOTE ---
Patient transfer to room 2128 . Transfer via w/c All belonging packed by pt's daughter including phone and field return repairer
AAO x3 forgetful and impulsive. pt needs bed alarm for safety
SR VSS
Abdomen soft round ascites, hernia
Voiding dark priyank urine voiding without difficulties
peripheral lines rt
skin tears to b/l UE dressing changed
report given to Mayela
[2024-10-14] MEDS: PREPARATION H OINTMENT 1 APPLIC RECTAL (21:37)
[2024-10-15] MEDS: TYLENOL 500 MG PO (00:30)
[2024-10-15 03:30] VITALS: BP 104/54
[2024-10-15 06:00] VITALS: BMI 24.7
[2024-10-15 07:03] VITALS: BP 112/51
[2024-10-15] MEDS: DUPHALAC/CHRONULAC 20 GRAMS PO ×3 (09:29→21:19)
[2024-10-15] MEDS: MAGNESIUM OXIDE 500 MG PO ×2 (09:29→20:04)
[2024-10-15] MEDS: VITAMIN B1 100 MG PO (09:29)
[2024-10-15] MEDS: NICODERM TRANSDERMAL 7 MG TRANSDERM (09:29)
[2024-10-15] MEDS: VIBRAMYCIN 100 MG PO (09:30)
[2024-10-15] MEDS: XIFAXAN 550 MG PO ×2 (09:30→20:04)
[2024-10-15] MEDS: FOLVITE 1 MG PO (09:30)
[2024-10-15] MEDS: NSS (PRESERVATIVE FREE) IV (09:30)
[2024-10-15] MEDS: FEOSOL 325 MG PO (09:30)
[2024-10-15] MEDS: PROTONIX IV IV (09:31)
[2024-10-15] MEDS: DESENEX/MITRAZOL/ZEASORB 1 APPLIC TOPICAL ×2 (09:33→20:04)
[2024-10-15] MEDS: PROTONIX 40 MG PO ×2 (09:33→20:04)
[2024-10-15] MEDS: PREPARATION H OINTMENT 1 APPLIC RECTAL ×2 (09:34→20:06)
[2024-10-15 10:14] LABS: % Basophils 0.6 % (0-2); % Eosinophils 4.5 % (0-6); % Immature Granulocytes 0.6 % (0-0.5); % Lymphocytes 27.1 % (20.5-51.1); % Monocytes 7.6 % (1.7-9.3); % Neutrophils 59.6 % (42.2-75.2); Absolute Eosinophils 0.1 10^3/uL (0-0.7); Absolute Lymphocytes 0.9 10^3/uL (1.2-3.4); Absolute Monocytes 0.2 10^3/uL (0.1-0.6); Absolute Neutrophils 1.9 10^3/uL (1.4-6.5); Hematocrit 24.4 % (39.0-52.0); Hemoglobin 7.8 g/dL (13.0-18.0); Mean Platelet Volume 10.4 fL (7.4-10.4); Nucleated Red Blood Cells % 0 % (-); Platelet Count 46 10^3/uL (130-400); Red Blood Cell Count 2.44 10^6/uL (4.70-6.10); Red Cell Dist. Width 16.9 % (11.5-14.5); White Blood Cell Count 3.1 10^3/uL (4.8-10.8)
[2024-10-15 10:30] LABS: ALT (SGPT) 16 U/L (0-50); AST (SGOT) 40 U/L (17-59); Albumin 2.8 g/dl (3.5-5.0); Alkaline Phosphatase 58 U/L (38-126); Blood Urea Nitrogen 16 mg/dl (9-20); Calcium 8.3 mg/dl (8.4-10.2); Carbon Dioxide 24 mmol/L (22-30); Chloride 111 mmol/L (98-107); Estimated Creatinine Clearance 83 ml/min; Glucose 86 mg/dl (70-99); Potassium 3.8 mmol/L (3.5-5.1); Sodium 141 mmol/L (135-145); Total Bilirubin 3.2 mg/dl (0.2-1.3); eGFR > 60.00
--- NOTE | 2024-10-15 10:58 | W.PN.HOSP.TC ---
Today's Communication/Plan
-
monitor vitals
see plan
follow fever curve
psych to see today
pt/ot
discussed with Daughter over the phone
monitor hgb
Assessment / Plan
Assessment / Plan
General: Well Developed,no distress
HEENT: NormoCephalic, Moist mucous membranes, Atraumatic, Other (broken lower right tooth)
Respiratory: Clear, Wheezes and Non Labored Respirations
Cardiac: S1/S2 and Regular Rhythm
GI: Soft, Normal Bowel Sounds and Tender
Genito-urinary: Sher
Musculoskeletal: No Edema
Neuro: Awake, alert and oriented
Psych:calm
Agitation, hallucination could likely be multifactorial secondary to TME,medication use, +/- cocaine use
per spouse patient is currently not using any drugs; could be false +. patient denies any cocaine use
mental status better today; psych following. Still has periods of paranoia at times which could be related to hepatic encephalopathy
UDS positive for opioids, cocaine. did got morphine a day prior in ED
psych following; on Risperdal and ativan
now off precedex; monitor
Unclear when his last alcohol use was
Does have history of advanced liver disease and hepatic encephalopathy
Continue with lactulose and rifaximin
fever overnight /8; monitor
Antibiotic discontinued by ID, monitor. agree no clear infection
cw restraints prn
Overall prognosis is very poor but patient's and family would like him to be full code and are not ready for hospice care
stop atarax and trazadone
sher was placed on admission; sehr dc'ed, now voiding
Acute hypoxic respiratory failure likely secondary to TME and possible aspiration event
resolved
Continue to wean oxygen as tolerated, now off o2
End-stage liver disease
s/p para 12/. monitor
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
Hypotension 2/2 cirrhosis
albumin
now BP better
right molar tooth pain
needs to be seen by dentist outpatient
pancytopenia likely secondary to cirrhosis
Monitor
Anemia of chronic disease secondary to liver cirrhosis
Monitor
Recurrent upper GI bleeding likely secondary to portal hypertensive gastropathy
h/o gastric varices s/p gastric artery coiling 09/2024
HCV s/p tx with Epclusa
Chronic pain
Essential hypertension: Cont lasix/aldactone
GERD: Cont PPI
h/o skin cancer s/p Mohs surgery
Anxiety
COPD: Cont Symbicort/Spiriva
recent Covid infection
Hx ascites r/t portal vein HTN from decompensated cirrhosis
History insomnia
On trazodone, hold for now
Code Status: Full Code
DVT Px: SCDs
Discussed with family at length. Appears the family is looking for long-term plan on discharge. They will speak with sample case porter.
I spent a total of 51 minutes with the patient or on the floor. More than 50% of this time involved counseling and coordination of care.
Anticipated Discharge: 24 - 48 hours
Subjective/Interval History
-
Date of Service: October 15, 2024
denies nausea
Objective Data
-
Labs:
Laboratory Results
10/15/24
09:03
WBC 3.1 L
Hgb 7.8 L
Hct 24.4 L
Plt Count 46 L
Sodium 141
Potassium 3.8
Chloride 111 H
Carbon Dioxide 24
BUN 16
Creatinine 1.0
Glucose 86
Calcium 8.3 L
Total Bilirubin 3.2 H
AST 40
ALT 16
Alkaline Phosphatase 58
Vital Signs:
Vital Signs
Temp Pulse Resp BP Pulse Ox
98.4 F 77 16 112/51 94
10/15/24 07:03 10/15/24 07:03 10/15/24 07:03 10/15/24 07:03 10/15/24 10:24
I&O
10/14/24 10/15/24 10/16/24
06:59 06:59 06:59
Intake Total 2079 / 2079 1080 / 1080
Output Total 400 / 400 300 / 300
Balance 1680 / 1680 780 / 780
[2024-10-15 11:10] VITALS: BP 124/56
--- NOTE | 2024-10-15 11:38 | W.PN.UPDATE ---
Update Note
Progress Note Update
Discussed with patient and ongoing plans as patient mental status improved today. Pt was not a candidate for transplant with recent + PETH testing. Pt did have follow up with Dr. Dan last week but did not discuss candidacy. We
discussed rehab which pt is agreeable. We also discussed palliative care/hospice that patient will consider but currently states not sure if he is ready. Would recommended Dr. Dan follow up to discuss if pt can be future candidate. Also
discussed pt has option of seeking care at [place], [place] etc for second opinion for transplant evaluation but he and family would need to arrange follow up with those facilities via live visit or telehealth if facility allows. I will sent
message for follow up with Dr. Dan.
--- NOTE | 2024-10-15 11:43 | PN.CDI ---
CDI
- -
CDI:
Physician Documentation Request
Admit Date: 10/11/24 19:11
Dear Doctor Akshat,
Please review the following and provide your response in the progress notes.
Clinical Indicators:
Pt admitted with toxic metabolic encephalopathy and acute on chronic respiratory failure.
10/13 ID Note: 'Suspect worsening encephalopathy is secondary to advancing liver failure.'
Clarify which of the following accurately represents the acuity of the Liver Failure. Possible options might include:
Acute Liver Failure
Acute on Chronic Liver Failure
Chronic Liver Failure
Other
Use of terms such as suspected, likely, concern for, or probable (associated with a specific diagnosis that is being evaluated, monitored, or treated as if it exists) are acceptable and can be coded in the inpatient setting, when documented at the
time of discharge.
Thank you,
Tere Abebe RN, BSN
CDI Specialist
Available via [employer]
Please use your independent medical judgment in providing your response.
--- NOTE | 2024-10-15 11:59 | W.PN.GI.CBS2 ---
Today's Communication / Plan
-
continue supportive care
Assessment / Plan
-
Mr Mazariegos is a 59 y.o male well-known to GI group with past medical history significant for decompensated cirrhosis (HCV vs EtOH) with intractable ascites with weekly para, HE, GI bleeding by recurrent hospitalizations with HE secondary to
acute on chronic GI bleeding 2/2 PHG gastric varix, hx of prior post-polypectomy bleed, prior transfer to [place] for Ultrasound guided gastric artery coiling procedure, chronic HCV (s/p treatment with Epclusa s/p SVR), CVA, HTN, COPD, and chronic
thrombocytopenia. He also had recent SBP, covid, ecoli ESBL blood/peritoneal fluid, and UTI. He now presents with recurrent evaluation with confusion. Since admission currently no signs of infection and neg SBP with cultures pending. He is also
noted with + tox screen for cocaine on admission along with bleeding from gums.
-confusion with agitation etiology med related vs other
-hx GI bleeding with -hx recent EGD with type 1 isolated gastric varix with transfer to [place] with gastric artery coiling 09/2024
-recurrent Anemia
-recent SBP on chronic abx
-recent covid
-recent UTI/ecoli ESBL bacteremia
-Decompensated alcoholic/Hep C liver cirrhosis, MELD 3.0 - transplant held with + PETH awaiting counseling
-Chronic thrombocytopenia
-hx HE
-Ascites, requiring near weekly paracentesis
-Chronic hyponatremia
-Hyperbilirubinemia, chronic
-AFP 30 in March 2024, was in the 10-12 range
-Hx Hep C s/p tx with Epclusa with SVR
-portal hypertension
-+ tox screen may be false +
Other pertinent medical history:
-Chronic pain
-GERD
-Hypertension
-Anxiety
-hx colon polyps with prior bleeding with polyp removal and placement of Ovesco clip-- last colon with retained polyps note removed in setting of GI bleed
-hx hemorrhoids
-skin Ca s/p recent Mohs surgery
Recommendations:
Etiology to agitation related to medication with recent Atarax and Trazadone use, advancing liver disease, HE though ammonia level 11, recurrent infection with current cx data neg so far vs other
UDS positive for cocaine and opiates
cont abx for SBP prophylaxsis
trend labs with hx recurrent GI bleeding
cont PPI BID
diet advanced
Continue lactulose and Xifaxan
Reinforced strict alcohol abstinence and avoiding drugs and polypharmacy use
Patient's was very tearful and is overwhelmed and says that she cannot take care of him at home and would like him placed in a long-term facility embedded case manager notified
Also sent a text to Dr. Dan and confirmed he is not a transplant candidate which was discussed with patient and
continue paracentesis PRN
Overall prognosis is very poor would recommend palliative care if patient and and family are agreeable
Subjective
Subjective
Date of Service: October 15, 2024
Patient is awake and oriented
Denies abdominal pain no rectal bleeding or melena no nausea or vomiting
Objective
Data Reviewed
Laboratory Data:
Laboratory Results
10/15/24 09:03
10/15/24 09:03
Laboratory Results
PT 23.2 Sec (11.4-14.6) H 10/13/24 03:58
INR 2.05 10/13/24 03:58
APTT 44.4 Sec (23.4-35.0) H 10/11/24 16:00
Magnesium 1.6 mg/dl (1.6-2.3) 10/11/24 16:00
Total Bilirubin 3.2 mg/dl (0.2-1.3) H 10/15/24 09:03
AST 40 U/L (17-59) 10/15/24 09:03
ALT 16 U/L (0-50) 10/15/24 09:03
Alkaline Phosphatase 58 U/L (38-126) 10/15/24 09:03
Vital Signs and I&O:
Vital Signs
Temp Pulse Resp BP Pulse Ox
98.4 F 77 16 112/51 94
10/15/24 07:03 10/15/24 07:03 10/15/24 07:03 10/15/24 07:03 10/15/24 10:24
I&O
10/14/24 10/15/24 10/16/24
06:59 06:59 06:59
Intake Total 2080 / 2080 1080 / 1080
Output Total 400 / 400 300 / 300
Balance 1680 / 1680 780 / 780
Physical Exam
Physical Exam
Cardiology: Normal Sinus Rhythm
Pulmonary: Clear
GI: Soft, Distended (Mildly distended umbilical hernia), Non Tender and Normal Bowel Sounds
--- NOTE | 2024-10-15 12:04 | PN.CDI ---
CDI
- -
CDI:
Physician Documentation Request
Admit Date: 10/11/24 19:11
Dear Doctor Akshat,
Please review the following and provide your response in the progress notes.
Clinical Indicators:
Pt admitted with toxic metabolic encephalopathy and acute on chronic respiratory failure.
10/12 Progress Note: 'Does have history of advanced liver disease and hepatic encephalopathy.'
Clarify which of the following accurately represents the acuity of the Hepatic encephalopathy. Possible options might include:
Acute Hepatic encephalopathy
Acute on Chronic Hepatic encephalopathy
Chronic Encephalopathy
Other
Use of terms such as suspected, likely, concern for, or probable (associated with a specific diagnosis that is being evaluated, monitored, or treated as if it exists) are acceptable and can be coded in the inpatient setting, when documented at the
time of discharge.
Thank you,
Tere Abebe RN, BSN
CDI Specialist
Available via [facility] [employer]
Please use your independent medical judgment in providing your response.
--- NOTE | 2024-10-15 12:24 | CM ---
Met with patient, Cherise & daughter Estella Aguilar
Case management consult completed for SNF
Patient not candidate at this time for liver transplant
Discussed options for SNF, prefer [facility]
Referrals entered in [facility].
Discussed CM would need to obtain insurance authorization.
PLAN: SNF, pending acceptance/bed availability
--- NOTE | 2024-10-15 12:48 | W.PN.ID1 ---
Date of Service
Date of Service: October 15, 2024
Today's Communication
Sign off
Assessment / Plan
Worsening confusion
� TME likely secondary to worsening overall liver function.
� No infectious process immediately identifiable
Advanced / End-stage Cirrhosis
Hx Upper GI bleed
COPD
Hx Recurrent SBP
Hepatic encephalopathy
Hx of CVA
Recommendations:
No evidence of SBP.
Encephalopathy overall markedly improved.
Continue on suppressive doxycycline 100 mg p.o. daily for recurrent SBP prophylaxis.
Overall prognosis appears poor.
Little more to offer from a Infectious Diseases standpoint.
Will see again at your request.
����������������������������������������������������������
Chief Complaint
-: Other (Encephalopathy)
Subjective / Review of Systems
Patient seen and examined. Reports feeling improved. Family at the bedside and report that encephalopathy has markedly improved overall.
Review of Systems: No Fever and No Chills
Vital Signs / Physical Exam
Vital Signs
Vital Signs
Temp Pulse Resp BP Pulse Ox
98.8 F 89 16 124/56 96
10/15/24 11:10 10/15/24 11:10 10/15/24 11:10 10/15/24 11:10 10/15/24 11:10
Physical Exam
Constitutional: No Acute Distress, Comfortable, Chronically Ill and Non-toxic
Head: Normocephalic
Pulmonary: Non Labored
Gastrointestinal: Distended
Extremities: Edema; Negative Cyanosis
Neurological: Awake, Alert and Other (Easily arousable)
Psychological: Calm
Objective Data
Lab Data
Lab Results
10/15/24 09:03
10/15/24 09:03
PT 23.2 Sec (11.4-14.6) H 10/13/24 03:58
INR 2.05 10/13/24 03:58
APTT 44.4 Sec (23.4-35.0) H 10/11/24 16:00
Estimated Creat Clear 83 ml/min 10/15/24 09:03
Lactic Acid 1.2 mmol/L (0.7-2.0) 10/13/24 09:58
Total Bilirubin 3.2 mg/dl (0.2-1.3) H 10/15/24 09:03
AST 40 U/L (17-59) 10/15/24 09:03
ALT 16 U/L (0-50) 10/15/24 09:03
Alkaline Phosphatase 58 U/L (38-126) 10/15/24 09:03
Most recent labs reviewed.
Micro Results:
10/12/24 09:12 Body Fluid Culture - Final
Peritoneal Fluid No Growth After 72 Hours
Gram Stain - Final
10/11/24 16:00 Blood Culture - Preliminary
Blood/Venous No Growth in 72 hours- Final report to follow
10/11/24 16:00 Blood Culture - Preliminary
Blood/Venous No Growth in 72 hours- Final report to follow
10/11/24 16:00 Urine Culture - Final
Urine NO GROWTH
Imaging:
09/26/2024 CT abdomen/pelvis with IV contrast: There is mild wall thickening of the distal esophagus suggesting esophagitis. Subtle liver surface nodularity consistent with history of cirrhosis. There is evidence of portal hypertension with
splenomegaly and extensive portosystemic venous collaterals. Mild ascites is noted. Minor diverticulosis without acute diverticulitis. A nonobstructing 8 mm left ureteropelvic junction calculus is noted and similar to prior examinations. Please
see full dictation for additional detail. Film personally viewed.
[2024-10-15 15:08] VITALS: BP 120/57
[2024-10-15 19:25] VITALS: BP 125/59
[2024-10-15] MEDS: DUPHALAC/CHRONULAC PO (20:04)
[2024-10-15] MEDS: RISPERDAL M-TAB (ORALLY DISINTEGRATING) 0.25 MG PO (20:05)
--- NOTE | 2024-10-15 21:14 | W.PN.UPDATE ---
Update Note
Progress Note Update
patient c/o sore throat he describes as 'razor blades' when he swallows..Rapid strep negative and throat culture swab obtained. Magic mouthwash ordered prn.
[2024-10-15] MEDS: MAGIC OR MIRACLE MOUTHWASH 5 ML PO (21:15)
[2024-10-15 23:25] VITALS: BP 122/59
[2024-10-16] VITALS (9 sets, daily range): BP systolic 96–152; BP diastolic 55–70; PULSE 124; O2SAT 96; BMI 24.7
[2024-10-16] MEDS: DUPHALAC/CHRONULAC 20 GRAMS PO ×2 (07:28→15:46)
[2024-10-16] MEDS: VITAMIN B1 100 MG PO (07:28)
[2024-10-16] MEDS: VIBRAMYCIN 100 MG PO (07:28)
[2024-10-16] MEDS: MAGNESIUM OXIDE 500 MG PO ×2 (07:28→20:12)
[2024-10-16] MEDS: NICODERM TRANSDERMAL 7 MG TRANSDERM (07:28)
[2024-10-16] MEDS: XIFAXAN 550 MG PO ×2 (07:29→20:12)
[2024-10-16] MEDS: FEOSOL 325 MG PO (07:29)
[2024-10-16] MEDS: FOLVITE 1 MG PO (07:29)
[2024-10-16] MEDS: PROTONIX 40 MG PO ×2 (07:29→20:12)
[2024-10-16] MEDS: DESENEX/MITRAZOL/ZEASORB 1 APPLIC TOPICAL ×2 (07:30→20:13)
[2024-10-16] MEDS: MAGIC OR MIRACLE MOUTHWASH 5 ML PO ×2 (07:30→15:54)
[2024-10-16] MEDS: PREPARATION H OINTMENT 1 APPLIC RECTAL ×2 (07:30→20:13)
[2024-10-16 08:44] LABS: % Basophils 0.9 % (0-2); % Eosinophils 6.1 % (0-6); % Immature Granulocytes 0.6 % (0-0.5); % Lymphocytes 22.2 % (20.5-51.1); % Monocytes 7.5 % (1.7-9.3); % Neutrophils 62.7 % (42.2-75.2); Absolute Eosinophils 0.2 10^3/uL (0-0.7); Absolute Lymphocytes 0.8 10^3/uL (1.2-3.4); Absolute Monocytes 0.3 10^3/uL (0.1-0.6); Absolute Neutrophils 2.2 10^3/uL (1.4-6.5); Hematocrit 22.8 % (39.0-52.0); Hemoglobin 7.6 g/dL (13.0-18.0); Mean Corp Hgb Conc. 33.3 g/dL (33.0-37.0); Mean Corpuscular Hgb 32.6 pg (27.0-31.0); Mean Corpuscular Volume 97.9 fL (80.0-94.0); Mean Platelet Volume 10.5 fL (7.4-10.4); Nucleated Red Blood Cells % 0 % (-); Platelet Count 45 10^3/uL (130-400); Red Blood Cell Count 2.33 10^6/uL (4.70-6.10); Red Cell Dist. Width 16.9 % (11.5-14.5); White Blood Cell Count 3.5 10^3/uL (4.8-10.8)
[2024-10-16 08:46] LABS: ALT (SGPT) 17 U/L (0-50); AST (SGOT) 39 U/L (17-59); Albumin 2.7 g/dl (3.5-5.0); Alkaline Phosphatase 68 U/L (38-126); Blood Urea Nitrogen 11 mg/dl (9-20); Calcium 8.2 mg/dl (8.4-10.2); Carbon Dioxide 23 mmol/L (22-30); Chloride 112 mmol/L (98-107); Estimated Creatinine Clearance 118 ml/min; Glucose 90 mg/dl (70-99); Potassium 3.8 mmol/L (3.5-5.1); Sodium 141 mmol/L (135-145); Total Bilirubin 3.3 mg/dl (0.2-1.3); Total Protein 4.9 g/dl (6.3-8.2); eGFR > 60.00
--- NOTE | 2024-10-16 10:24 | W.PN.UPDATE ---
Update Note
Progress Note Update
Patient seen at [facility], chart reviewed, discussed with staff. Patient is sleepy this AM. Reportedly did not sleep well related to a sore throat. Strep culture sent and is pending. Patient has been much calmer with some intermittent
confusion/agitation has been reported.
Impression/Recommendation: TME secondary to underlying severe medical illness - continue with low dose Risperdal for now, could consider making this PRN if behaviors continue to remain stable.
--- NOTE | 2024-10-16 10:34 | W.PN.GI.CBS2 ---
Today's Communication / Plan
-
para today
placement to SNF or NH per request
Assessment / Plan
-
Mr Mazariegos is a 59 y.o male well-known to GI group with past medical history significant for decompensated cirrhosis (HCV vs EtOH) with intractable ascites with weekly para, HE, GI bleeding by recurrent hospitalizations with HE secondary to
acute on chronic GI bleeding 2/2 PHG gastric varix, hx of prior post-polypectomy bleed, prior transfer to [place] for Ultrasound guided gastric artery coiling procedure, chronic HCV (s/p treatment with Epclusa s/p SVR), CVA, HTN, COPD, and chronic
thrombocytopenia. He also had recent SBP, covid, ecoli ESBL blood/peritoneal fluid, and UTI. He now presents with recurrent evaluation with confusion. Since admission currently no signs of infection and neg SBP with cultures pending. He is also
noted with + tox screen for cocaine on admission along with bleeding from gums.
-confusion with agitation etiology med related vs other
-hx GI bleeding with -hx recent EGD with type 1 isolated gastric varix with transfer to [place] with gastric artery coiling 09/2024
-recurrent Anemia
-recent SBP on chronic abx
-recent covid
-recent UTI/ecoli ESBL bacteremia
-Decompensated alcoholic/Hep C liver cirrhosis, MELD 3.0 - transplant held with + PETH awaiting counseling
-Chronic thrombocytopenia
-hx HE
-Ascites, requiring near weekly paracentesis
-Chronic hyponatremia
-Hyperbilirubinemia, chronic
-AFP 30 in March 2024, was in the 10-12 range
-Hx Hep C s/p tx with Epclusa with SVR
-portal hypertension
-+ tox screen may be false +
Other pertinent medical history:
-Chronic pain
-GERD
-Hypertension
-Anxiety
-hx colon polyps with prior bleeding with polyp removal and placement of Ovesco clip-- last colon with retained polyps note removed in setting of GI bleed
-hx hemorrhoids
-skin Ca s/p recent Mohs surgery
Recommendations:
Etiology to agitation related to medication with recent Atarax and Trazadone use, advancing liver disease, HE though ammonia level 11, recurrent infection with current cx data neg so far vs other
UDS positive for cocaine and opiates
cont abx for SBP prophylaxsis
trend labs with hx recurrent GI bleeding
cont PPI BID
diet advanced
Continue lactulose and Xifaxan
Reinforced strict alcohol abstinence and avoiding drugs and polypharmacy use
Patient's was very tearful and is overwhelmed and says that she cannot take care of him at home and would like him placed in a long-term facility caser in notified
Also sent a text to Dr. Dan and confirmed he is not a transplant candidate which was discussed with patient and
continue paracentesis PRN- schedule today or tomorrow
Patient complains of burning in his throat and pain but started on Magic mouthwash and if it does not improve consider nystatin empirically for possible Monique
Overall prognosis is very poor would recommend palliative care if patient and and family are agreeable
Subjective
Subjective
Date of Service: October 16, 2024
Patient is drowsy but easily arousable and oriented, complaining of throat pain and burning
Objective
Data Reviewed
Laboratory Data:
Laboratory Results
10/16/24 07:03
10/16/24 07:03
Laboratory Results
PT 23.2 Sec (11.4-14.6) H 10/13/24 03:58
INR 2.05 10/13/24 03:58
APTT 44.4 Sec (23.4-35.0) H 10/11/24 16:00
Magnesium 1.6 mg/dl (1.6-2.3) 10/11/24 16:00
Total Bilirubin 3.3 mg/dl (0.2-1.3) H 10/16/24 07:03
AST 39 U/L (17-59) 10/16/24 07:03
ALT 17 U/L (0-50) 10/16/24 07:03
Alkaline Phosphatase 68 U/L (38-126) 10/16/24 07:03
Vital Signs and I&O:
Vital Signs
Temp Pulse Resp BP Pulse Ox
99.8 F 96 16 132/59 93
10/16/24 07:00 10/16/24 07:00 10/16/24 07:00 10/16/24 07:00 10/16/24 09:59
I&O
10/15/24 10/16/24 10/17/24
06:59 06:59 06:59
Intake Total 1080 / 1080 1440 / 1440
Output Total 300 / 300 3 / 3
Balance 780 / 780 1437 / 1437
Physical Exam
Physical Exam
Cardiology: Normal Sinus Rhythm
Pulmonary: Clear
GI: Soft, Distended, Non Tender and Normal Bowel Sounds
--- NOTE | 2024-10-16 10:58 | W.PN.HOSP.TC ---
Today's Communication/Plan
-
monitor vitals
see plan
cw Risperdal
IR to see if can do para today
follow fever curve
monitor mental status
Assessment / Plan
Assessment / Plan
General: Well Developed,no distress
HEENT: NormoCephalic, Moist mucous membranes, Atraumatic, Other (broken lower right tooth)
Respiratory: Clear, Wheezes and Non Labored Respirations
Cardiac: S1/S2 and Regular Rhythm
GI: Soft, Normal Bowel Sounds and Tender
Genito-urinary: Sher
Musculoskeletal: No Edema
Neuro: Awake, alert and oriented
Psych:calm
Agitation, hallucination could likely be multifactorial secondary to TME,medication use, +/- cocaine use
per spouse patient is currently not using any drugs; could be false +. patient denies any cocaine use
mental status better today; psych following. Still has periods of paranoia at times which could be related to hepatic encephalopathy,
Acute on Chronic Hepatic encephalopathy
UDS positive for opioids, cocaine. did got morphine a day prior in ED
psych following; on Risperdal and ativan
now off precedex; monitor
Unclear when his last alcohol use was
Does have history of advanced liver disease and hepatic encephalopathy
Continue with lactulose and rifaximin
fever overnight 10/14; monitor
Antibiotic discontinued by ID, monitor. agree no clear infection
cw restraints prn
Overall prognosis is very poor but patient's and family would like him to be full code and are not ready for hospice care
stop atarax and trazadone
sher was placed on admission; sher pr'ed, now voiding
Eventually restart Aldactone and Lasix
Acute hypoxic respiratory failure likely secondary to TME and possible aspiration event
resolved
Continue to wean oxygen as tolerated, now off o2
End-stage liver disease, chronic liver failure
s/p para 10/12. monitor. asked IR again 10/16 to see if can do para
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
throat pain
magic mouthwash
strep neg
Hypotension 2/2 cirrhosis
albumin
now BP better
right molar tooth pain
needs to be seen by dentist outpatient
pancytopenia likely secondary to cirrhosis
Monitor
Anemia of chronic anemia secondary to liver cirrhosis
Monitor
Recurrent upper GI bleeding likely secondary to portal hypertensive gastropathy
h/o gastric varices s/p gastric artery coiling 09/2024
HCV s/p tx with Epclusa
Chronic pain
Essential hypertension
GERD: Cont PPI
h/o skin cancer s/p Mohs surgery
Anxiety
COPD: Cont Symbicort/Spiriva
recent Covid infection
Hx ascites r/t portal vein HTN from decompensated cirrhosis
History insomnia
On trazodone, hold for now
Code Status: Full Code
DVT Px: SCDs
Discussed with family at length. Appears the family is looking for long-term plan on discharge. They will speak with insurance case manager.
Anticipated Discharge: Within 24 hours
Subjective/Interval History
-
Date of Service: October 16, 2024
denies pain
Objective Data
-
Labs:
Laboratory Results
10/16/24
07:03
WBC 3.5 L
Hgb 7.6 L
Hct 22.8 L
Plt Count 45 L
Sodium 141
Potassium 3.8
Chloride 112 H
Carbon Dioxide 23
BUN 11
Creatinine 0.7
Glucose 90
Calcium 8.2 L
Total Bilirubin 3.3 H
AST 39
ALT 17
Alkaline Phosphatase 68
Vital Signs:
Vital Signs
Temp Pulse Resp BP Pulse Ox
99.8 F 96 16 132/59 93
10/16/24 07:00 10/16/24 07:00 10/16/24 07:00 10/16/24 07:00 10/16/24 09:59
I&O
10/15/24 10/16/24 10/17/24
06:59 06:59 06:59
Intake Total 1080 / 1080 1440 / 1440
Output Total 300 / 300 3
Balance 780 / 780 1437 / 1437
[2024-10-16] MEDS: ULTRAM 50 MG PO ×2 (13:19→21:09)
--- NOTE | 2024-10-16 13:30 | PTCARENOTE ---
Patient to IR for paracentesis. PRN tramadol given prior to transport per MD and IR, patient states pain with needle incision during paracentesis.
[2024-10-16 15:12] LABS: Body Fluid Mononuclear 95.4 %; Body Fluid Polymorphonuclear 4.6 %; Body Fluid WBC 66 /CUMM
[2024-10-16 15:28] LABS: Body Fluid LDH < 90 U/L; Body Fluid Protein < 2.0 g/dl
[2024-10-16] MEDS: FLEXBUMIN 100 IV (15:46)
[2024-10-16 15:52] LABS: Body Fluid Second Tech DW
[2024-10-16] MEDS: ATARAX 25 MG PO (21:03)
[2024-10-16] MEDS: RISPERDAL M-TAB (ORALLY DISINTEGRATING) 0.25 MG PO (21:03)
[2024-10-16] MEDS: DUPHALAC/CHRONULAC PO (21:05)
[2024-10-17] MEDS: MAGIC OR MIRACLE MOUTHWASH 5 ML PO ×3 (01:05→17:01)
[2024-10-17 02:52] VITALS: BP 114/50
[2024-10-17 06:00] VITALS: BMI 23.3
[2024-10-17 07:15] VITALS: BP 118/65
[2024-10-17] MEDS: PROTONIX 40 MG PO ×2 (07:57→19:53)
[2024-10-17] MEDS: MAGNESIUM OXIDE 500 MG PO ×2 (07:57→19:53)
[2024-10-17] MEDS: VITAMIN B1 100 MG PO (07:57)
[2024-10-17] MEDS: DUPHALAC/CHRONULAC 20 GRAMS PO (07:58)
[2024-10-17] MEDS: XIFAXAN 550 MG PO ×2 (07:58→19:53)
[2024-10-17] MEDS: FEOSOL 325 MG PO (07:58)
[2024-10-17] MEDS: VIBRAMYCIN 100 MG PO (07:58)
[2024-10-17] MEDS: NICODERM TRANSDERMAL 7 MG TRANSDERM (07:58)
[2024-10-17] MEDS: FOLVITE 1 MG PO (07:59)
[2024-10-17] MEDS: DESENEX/MITRAZOL/ZEASORB 1 APPLIC TOPICAL ×2 (07:59→19:53)
[2024-10-17] MEDS: ULTRAM 50 MG PO ×2 (08:06→19:56)
[2024-10-17 08:14] LABS: % Basophils 0.7 % (0-2); % Eosinophils 5.9 % (0-6); % Immature Granulocytes 0.7 % (0-0.5); % Lymphocytes 20.8 % (20.5-51.1); % Monocytes 7.9 % (1.7-9.3); Absolute Eosinophils 0.2 10^3/uL (0-0.7); Absolute Lymphocytes 0.6 10^3/uL (1.2-3.4); Absolute Monocytes 0.2 10^3/uL (0.1-0.6); Absolute Neutrophils 1.9 10^3/uL (1.4-6.5); Hematocrit 22.2 % (39.0-52.0); Hemoglobin 7.3 g/dL (13.0-18.0); Mean Corp Hgb Conc. 32.9 g/dL (33.0-37.0); Mean Corpuscular Hgb 31.7 pg (27.0-31.0); Mean Corpuscular Volume 96.5 fL (80.0-94.0); Mean Platelet Volume 12.2 fL (7.4-10.4); Nucleated Red Blood Cells % 0 % (-); Platelet Count 39 10^3/uL (130-400)
--- NOTE | 2024-10-17 08:29 | W.PN.GI.CBS2 ---
Today's Communication / Plan
-
Etiology to agitation related to medication with recent Atarax and Trazadone use vs + tox screen though pt continues to deny use, advancing liver disease, HE though ammonia level 11, recurrent infection with current cx data neg vs other
pt now awake and oriented
working with social work for SNF placement as difficulty to take care of at home
trend labs hbg 7.3 today will need OP repeat at close interval
cont PPI BID
2 gram Na diet
Continue lactulose TID and Xifaxan BID
Reinforced strict alcohol abstinence and avoiding drugs and polypharmacy use
I reviewed with Dr. Dan via text 10/15 next step if review with [employer] contract coordinator--for repeat PETH testing-- reviewed with and Pt
I also discussed with pt, and daughter 10/15 option for second transplant eval as currently not transplant candidate with + PETH testing
continue paracentesis PRN- schedule today or tomorrow
consider OP dental eval with c/o tooth issue and noted mouth bleeding during admission
Pt asking about abd pleurx cath-- discussed they are only placed if Pt is comfort or hospice as high risk of infection
pt states he is not ready for comfort measures though prognosis is poor, consider palliative care if patient agreeable
I sent message to GI office to arrange OP follow up with Dr. Weaver
updated
Will sign off all questions answered
Assessment / Plan
-
Mr Mazariegos is a 59 y.o male well-known to GI group with past medical history significant for decompensated cirrhosis (HCV vs EtOH) with intractable ascites with weekly para, HE, GI bleeding by recurrent hospitalizations with HE secondary to
acute on chronic GI bleeding 2/2 PHG gastric varix, hx of prior post-polypectomy bleed, prior transfer to [place] for Ultrasound guided gastric artery coiling procedure, chronic HCV (s/p treatment with Epclusa s/p SVR), CVA, HTN, COPD, and chronic
thrombocytopenia. He also had recent SBP, covid, ecoli ESBL blood/peritoneal fluid, and UTI. He now presents with recurrent evaluation with confusion. Since admission currently no signs of infection and neg SBP with cultures pending. He is also
noted with + tox screen for cocaine on admission along with bleeding from gums.
-confusion with agitation etiology med related vs other
-hx GI bleeding with -hx recent EGD with type 1 isolated gastric varix with transfer to [place] with gastric artery coiling 09/2024
-recurrent Anemia
-recent SBP on chronic abx
-recent covid
-recent UTI/ecoli ESBL bacteremia
-Decompensated alcoholic/Hep C liver cirrhosis, MELD 3.0 - transplant held with + PETH awaiting counseling
-Chronic thrombocytopenia
-hx HE
-Ascites, requiring near weekly paracentesis
-Chronic hyponatremia
-Hyperbilirubinemia, chronic
-AFP 30 in March 2024, was in the 10-12 range
-Hx Hep C s/p tx with Epclusa with SVR
-portal hypertension
-+ tox screen cocaine/opiates may be false +
-throat pain/tooth pain
Other pertinent medical history:
-Chronic pain
-GERD
-Hypertension
-Anxiety
-hx colon polyps with prior bleeding with polyp removal and placement of Ovesco clip-- last colon with retained polyps note removed in setting of GI bleed
-hx hemorrhoids
-skin Ca s/p recent Mohs surgery
Recommendations:
Etiology to agitation related to medication with recent Atarax and Trazadone use vs + tox screen though pt continues to deny use, advancing liver disease, HE though ammonia level 11, recurrent infection with current cx data neg vs other
pt now awake and oriented
working with social work for SNF placement as difficulty to take care of at home
trend labs hbg 7.3 today will need OP repeat at close interval
cont PPI BID
2 gram Na diet
Continue lactulose TID and Xifaxan BID
Reinforced strict alcohol abstinence and avoiding drugs and polypharmacy use
I reviewed with Dr. Dan via text 10/15 next step if review with [employer] contract coordinator--for repeat PETH testing-- reviewed with and pt
I also discussed with pt, and daughter 10/15 option for second transplant eval as currently not transplant candidate with + PETH testing
continue paracentesis PRN- schedule today or tomorrow
consider OP dental eval with c/o tooth issue and noted mouth bleeding during admission
Pt asking about abd pleurx cath-- discussed they are only placed if Pt is comfort or hospice as high risk of infection
pt states he is not ready for comfort measures though prognosis is poor, consider palliative care if patient agreeable
I sent message to GI office to arrange OP follow up with Dr. Weaver
updated
Will sign off all questions answered
Subjective
Subjective
Date of Service: October 17, 2024
brown loose stool on regular diet
Objective
Data Reviewed
Laboratory Data:
Laboratory Results
10/17/24 07:07
Laboratory Results
PT 23.2 Sec (11.4-14.6) H 10/13/24 03:58
INR 2.05 10/13/24 03:58
APTT 44.4 Sec (23.4-35.0) H 10/11/24 16:00
Magnesium 1.6 mg/dl (1.6-2.3) 10/11/24 16:00
Total Bilirubin 3.3 mg/dl (0.2-1.3) H 10/16/24 07:03
AST 39 U/L (17-59) 10/16/24 07:03
ALT 17 U/L (0-50) 10/16/24 07:03
Alkaline Phosphatase 68 U/L (38-126) 10/16/24 07:03
Vital Signs and I&O:
Vital Signs
Temp Pulse Resp BP Pulse Ox
100.2 F 94 17 114/50 96
10/17/24 02:52 10/17/24 02:52 10/17/24 02:52 10/17/24 02:52 10/17/24 02:52
I&O
10/16/24 10/17/24 10/18/24
06:59 06:59 06:59
Intake Total 1440 / 1440 480 / 480
Output Total
Balance 1437 / 1437 475 / 475
Physical Exam
Physical Exam
HEENT: Anicteric and Moist mucous membranes
Cardiology: Normal Sinus Rhythm
Pulmonary: Clear
GI: Soft, Distended (mild) and Non Tender
Neuro: Non Focal
[2024-10-17 08:33] LABS: ALT (SGPT) 16 U/L (0-50); AST (SGOT) 40 U/L (17-59); Albumin 2.6 g/dl (3.5-5.0); Alkaline Phosphatase 88 U/L (38-126); Blood Urea Nitrogen 10 mg/dl (9-20); Calcium 7.9 mg/dl (8.4-10.2); Carbon Dioxide 23 mmol/L (22-30); Chloride 112 mmol/L (98-107); Estimated Creatinine Clearance 118 ml/min; Glucose 95 mg/dl (70-99); Potassium 4.1 mmol/L (3.5-5.1); Sodium 140 mmol/L (135-145); Total Bilirubin 3.2 mg/dl (0.2-1.3); Total Protein 4.8 g/dl (6.3-8.2); eGFR > 60.00
[2024-10-17] MEDS: PREPARATION H OINTMENT RECTAL ×2 (09:38→19:53)
--- NOTE | 2024-10-17 10:36 | W.PN.HOSP.TC ---
Today's Communication/Plan
-
Monitor vital signs
see plan
Monitor hemoglobin
Discharge planning
Continue with pain control
Avoid Atarax
Assessment / Plan
Assessment / Plan
General: Well Developed,no distress
HEENT: NormoCephalic, Moist mucous membranes, Atraumatic, Other (broken lower right tooth)
Respiratory: Clear, Wheezes and Non Labored Respirations
Cardiac: S1/S2 and Regular Rhythm
GI: Soft, Normal Bowel Sounds and Tender
Genito-urinary: Sher
Musculoskeletal: No Edema
Neuro: Awake, alert and oriented
Psych:calm
Agitation, hallucination could likely be multifactorial secondary to TME,medication use, +/- cocaine use
per spouse patient is currently not using any drugs; could be false +. patient denies any cocaine use
mental status better today; psych following. Still has periods of paranoia at times which could be related to hepatic encephalopathy,
Acute on Chronic Hepatic encephalopathy
UDS positive for opioids, cocaine. did got morphine a day prior in ED
psych following; on Risperdal and ativan
now off precedex; monitor
Unclear when his last alcohol use was
Does have history of advanced liver disease and hepatic encephalopathy
Continue with lactulose and rifaximin
fever overnight 10/14; monitor
Antibiotic discontinued by ID, monitor. agree no clear infection
cw restraints prn
Overall prognosis is very poor but patient's and family would like him to be full code and are not ready for hospice care
stop atarax and trazadone
sher was placed on admission; nikky dc'ed, now voiding
Eventually restart Aldactone and Lasix
Acute hypoxic respiratory failure likely secondary to TME and possible aspiration event
resolved
Continue to wean oxygen as tolerated, now off o2
End-stage liver disease, chronic liver failure
s/p para 10/12. monitor. asked IR again 10/16 to see if can do para
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 Patient will follow-up with special projects coordinator outpatient
s/p para 10/16 with over 4L removed. albumin given
throat pain
magic mouthwash
strep neg
Hypotension 2/2 cirrhosis
albumin
now BP better
right molar tooth pain
needs to be seen by OMFS outpatient. Spoke with Dr. Salina Garcia and they recommended patient to follow-up with them outpatient
pancytopenia likely secondary to cirrhosis
Monitor
Anemia of chronic anemia secondary to liver cirrhosis
Monitor hgb
Recurrent upper GI bleeding likely secondary to portal hypertensive gastropathy
h/o gastric varices s/p gastric artery coiling 09/2024
HCV s/p tx with Epclusa
Chronic pain
Essential hypertension
GERD: Cont PPI
h/o skin cancer s/p Mohs surgery
Anxiety
COPD: Cont Symbicort/Spiriva
recent Covid infection
Hx ascites r/t portal vein HTN from decompensated cirrhosis
History insomnia
On trazodone, hold for now
Code Status: Full Code
DVT Px: SCDs
Discussed with family at length. Appears the family is looking for long-term plan on discharge. They will speak with pillowcase maker.
Anticipated Discharge: Within 24 hours
Subjective/Interval History
-
Date of Service: October 17, 2024
does have pain at times
Objective Data
-
Labs:
Laboratory Results
10/17/24
07:07
WBC 3.0 L
Hgb 7.3 L
Hct 22.2 L
Plt Count 39 L
Sodium 140
Potassium 4.1
Chloride 112 H
Carbon Dioxide 23
BUN 10
Creatinine 0.7
Glucose 95
Calcium 7.9 L
Total Bilirubin 3.2 H
AST 40
ALT 16
Alkaline Phosphatase 88
Vital Signs:
Vital Signs
Temp Pulse Resp BP Pulse Ox
98.2 F 98 17 118/65 96
10/17/24 07:15 10/17/24 07:15 10/17/24 07:15 10/17/24 07:15 10/17/24 07:15
I&O
10/16/24 10/17/24 10/18/24
06:59 06:59 06:59
Intake Total 1440 / 1440 480 / 480
Output Total / 3
Balance 1437 / 1437 475 / 475
[2024-10-17 11:00] VITALS: BP 108/59
--- NOTE | 2024-10-17 11:16 | CM ---
Addendum entered by Kelsie Shen 10/17/24 13:41:
Call from Janet from insurance stating patient was approved for [facility]
Approved 10/17 -- NRD 10/22
Call [phone]
Reference # is the approval #: [id number]
Called Kayley the liaison from [facility] and updated.
called and notified of approval
transportation forms on chart
Original Note:
CM called [phone] & spoke with Janet regarding ins. auth for [facility]
NPI #:[id number] Dr. Aftab Claros NPI #: [id number]
Janet stated someone will call CM back regarding determination
Pending Reference #: [id number]
PLAN: Await determination for [facility]
Report #: [phone]
Fax #: [phone]
--- NOTE | 2024-10-17 12:02 | W.PN.UPDATE ---
Update Note
Progress Note Update
patient seen chart reviewed. spoke with nursing and with gi. the patient is much improved since i had seen him last week. he is awake and alert. nursing tells me he can be rather irritated when things do not go his way but he has been largely
cooperative. whether his urine was + for cocaine has apparently become a bone of contention between him and his . the reality is that there are many medications that can cause a false + for cocaine. he adamantly denies that he used cocaine. i
discussed with him whether to dc hs risperdal. i explained to him why it had been ordered. he does not appear to need it at this point although of course i cannot guarantee that he will not need it in the future. have dc'ec the [facility] order for
risperdal at .spoke to cm who are looking in snf for him.
[2024-10-17 15:05] VITALS: BP 140/58
[2024-10-17] MEDS: DUPHALAC/CHRONULAC PO ×3 (17:01→21:11)
[2024-10-17] MEDS: PREPARATION H OINTMENT 1 APPLIC RECTAL (19:58)
[2024-10-17 23:27] VITALS: BP 121/61
[2024-10-17] MEDS: MELATONIN 3 MG PO (23:48)
[2024-10-17] MEDS: TYLENOL 650 MG PO (23:48)
[2024-10-18 05:23] VITALS: BMI 23.5
[2024-10-18 07:15] VITALS: BP 123/63
[2024-10-18 07:44] LABS: % Basophils 0.4 % (0-2); % Eosinophils 5.6 % (0-6); % Immature Granulocytes 0.4 % (0-0.5); % Lymphocytes 13.9 % (20.5-51.1); % Monocytes 7.6 % (1.7-9.3); % Neutrophils 72.1 % (42.2-75.2); Absolute Eosinophils 0.3 10^3/uL (0-0.7); Absolute Lymphocytes 0.6 10^3/uL (1.2-3.4); Absolute Monocytes 0.4 10^3/uL (0.1-0.6); Absolute Neutrophils 3.3 10^3/uL (1.4-6.5); Hematocrit 22.5 % (39.0-52.0); Hemoglobin 7.4 g/dL (13.0-18.0); Mean Corp Hgb Conc. 32.9 g/dL (33.0-37.0); Mean Corpuscular Hgb 32.5 pg (27.0-31.0); Mean Corpuscular Volume 98.7 fL (80.0-94.0); Mean Platelet Volume 11.9 fL (7.4-10.4); Nucleated Red Blood Cells % 0 % (-); Platelet Count 42 10^3/uL (130-400); Red Blood Cell Count 2.28 10^6/uL (4.70-6.10); Red Cell Dist. Width 17.2 % (11.5-14.5); White Blood Cell Count 4.6 10^3/uL (4.8-10.8)
[2024-10-18 07:53] LABS: ALT (SGPT) 16 U/L (0-50); AST (SGOT) 37 U/L (17-59); Albumin 2.7 g/dl (3.5-5.0); Alkaline Phosphatase 153 U/L (38-126); Blood Urea Nitrogen 12 mg/dl (9-20); Calcium 7.7 mg/dl (8.4-10.2); Carbon Dioxide 21 mmol/L (22-30); Chloride 110 mmol/L (98-107); Estimated Creatinine Clearance 83 ml/min; Glucose 100 mg/dl (70-99); Potassium 4.1 mmol/L (3.5-5.1); Sodium 139 mmol/L (135-145); Total Bilirubin 2.9 mg/dl (0.2-1.3); Total Protein 4.9 g/dl (6.3-8.2); eGFR > 60.00
[2024-10-18] MEDS: NICODERM TRANSDERMAL 7 MG TRANSDERM (07:58)
[2024-10-18] MEDS: PROTONIX 40 MG PO ×2 (08:02→19:54)
[2024-10-18] MEDS: XIFAXAN 550 MG PO ×2 (08:02→19:54)
[2024-10-18] MEDS: VIBRAMYCIN 100 MG PO (08:02)
[2024-10-18] MEDS: MAGNESIUM OXIDE 500 MG PO ×2 (08:02→19:54)
[2024-10-18] MEDS: VITAMIN B1 100 MG PO (08:02)
[2024-10-18] MEDS: FOLVITE 1 MG PO (08:03)
[2024-10-18] MEDS: FEOSOL 325 MG PO (08:03)
[2024-10-18] MEDS: DESENEX/MITRAZOL/ZEASORB 1 APPLIC TOPICAL ×2 (08:07→19:54)
[2024-10-18] MEDS: DUPHALAC/CHRONULAC 20 GRAMS PO (08:07)
[2024-10-18] MEDS: PREPARATION H OINTMENT 1 APPLIC RECTAL ×2 (08:08→19:55)
[2024-10-18] MEDS: MAGIC OR MIRACLE MOUTHWASH 5 ML PO ×3 (08:10→22:53)
--- NOTE | 2024-10-18 09:18 | W.PN.HOSP.TC ---
Today's Communication/Plan
-
monitor temps; off Abx
repeat AM labs
resume Lasix/Aldactone today and monitor BP
DC planning
Assessment / Plan
Assessment / Plan
General: Well Developed,no distress
HEENT: NormoCephalic, Moist mucous membranes, Atraumatic, Other (broken lower right tooth)
Respiratory: Clear, Wheezes and Non Labored Respirations
Cardiac: S1/S2 and Regular Rhythm
GI: Soft, Normal Bowel Sounds and Tender
Genito-urinary: Sher
Musculoskeletal: No Edema
Neuro: Awake, alert and oriented
Psych:calm
Assessment:
Agitation, hallucination could likely be multifactorial secondary to TME,medication use, +/- cocaine use
per spouse patient is currently not using any drugs; could be false +. patient denies any cocaine use
mental status improved; psych following. Still has periods of paranoia at times which could be related to hepatic encephalopathy,
Acute on Chronic Hepatic encephalopathy
UDS positive for opioids, cocaine. did got morphine a day prior in ED
psych following; on Risperdal and Ativan
now off Precedex; monitor
Unclear when his last alcohol use was
Does have history of advanced liver disease and hepatic encephalopathy
Continue with lactulose and rifaximin
fever overnight 10/14 and 10/17; monitor as no new symptoms. Prior workup negative.
Antibiotic discontinued by ID, monitor. agree no clear infection
Overall prognosis is very poor but patient's and family would like him to be full code and are not ready for hospice care
stop atarax and trazadone
sher was placed on admission; sher dc'ed, now voiding
resume Aldactone and Lasix today
Acute hypoxic respiratory failure likely secondary to TME and possible aspiration event
resolved
Continue to wean oxygen as tolerated, now off o2
End-stage liver disease, chronic liver failure
s/p para 10/12 and 10/16; no evidence of SBP. Albumin was given. Continue doxycycline prophylaxis per ID.
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 Patient will follow-up with charge coordinator outpatient/Dr. Dan
throat pain
magic mouthwash
strep neg; check flu
- recent COVID 09/28/24
Hypotension 2/2 cirrhosis
albumin
now BP better
resume Aldactone and Lasix today
right molar tooth pain
needs to be seen by OMFS outpatient. Spoke with Dr. Salina Garcia and they recommended patient to follow-up with them outpatient
pancytopenia likely secondary to cirrhosis
Monitor
Anemia of chronic anemia secondary to liver cirrhosis
Monitor hgb
Recurrent upper GI bleeding likely secondary to portal hypertensive gastropathy
h/o gastric varices s/p gastric artery coiling 09/2024
HCV s/p tx with Epclusa
Chronic pain
Essential hypertension
GERD: Cont PPI
h/o skin cancer s/p Mohs surgery
Anxiety
COPD: Cont Symbicort/Spiriva
Hx ascites r/t portal vein HTN from decompensated cirrhosis
History insomnia
On trazodone - stopped
Code Status: Full Code
DVT Px: SCDs
Anticipated Discharge: 24 - 48 hours
Subjective/Interval History
-
Date of Service: October 18, 2024
mild temp of 100.7 overnight, afebrile this AM without any new symptoms
Objective Data
-
Labs:
Laboratory Results
10/18/24
05:53
WBC 4.6 L
Hgb 7.4 L
Hct 22.5 L
Plt Count 42 L
Sodium 139
Potassium 4.1
Chloride 110 H
Carbon Dioxide 21 L
BUN 12
Creatinine 1.0
Glucose 100 H
Calcium 7.7 L
Total Bilirubin 2.9 H
AST 37
ALT 16
Alkaline Phosphatase 153 H
Vital Signs:
Vital Signs
Temp Pulse Resp BP Pulse Ox
98.5 F 94 16 123/63 97
10/18/24 07:15 10/18/24 07:15 10/18/24 07:15 10/18/24 07:15 10/18/24 07:15
I&O
10/17/24 10/18/24 10/19/24
06:59 06:59 06:59
Intake Total 480 / 480 1919
Output Total 5 / 5
Balance 475 / 475 1919
Data Reviewed
-
Total Time Spent with Patient (in minutes): 44
Labs: Labs Reviewed by me
[2024-10-18] MEDS: LASIX 20 MG PO (10:23)
[2024-10-18] MEDS: ALDACTONE 25 MG PO (10:26)
--- NOTE | 2024-10-18 11:12 | W.PN.UPDATE ---
Update Note
Progress Note Update
patient seen chart reviewed. spoke with nursing and with case management. patient very concerned about whether he is going to receive a transfusion today. asked nursing. apparently the answer is no. hgb is still about 7. his rationale is that
'tomorrow' it will be below seven and he will then need a transfusion and have to return to . he also asked when he is leaving. cm tells me he will be dc to [facility] tomorrow. there do not seem to be ill effects from dc of risperdal.
patient is awake alert and cooperative. he says has been gentler to him. he thinks she may have accepted that he did not use cocaine which he continues to deny. psych will sign off at this point.
--- NOTE | 2024-10-18 14:31 | CM ---
Patient seen at bedside.
Spoke with Cherise
Hgb today 7.4
Patient approval for [facility]
Reference # is the approval #: [id number]
Start 10/17 NRD 10/22
PLAN: [facility]
Report #: [phone]
Fax #: [phone]
w/c transportation - aware
[2024-10-18 14:39] VITALS: BP 127/57; PULSE 98; O2SAT 96
[2024-10-18 15:50] VITALS: BP 121/63
[2024-10-18] MEDS: DUPHALAC/CHRONULAC PO ×2 (17:47→21:20)
[2024-10-18] MEDS: ULTRAM 50 MG PO (19:58)
[2024-10-18] MEDS: MELATONIN 3 MG PO (21:18)
[2024-10-18 23:00] VITALS: BP 114/59
[2024-10-18] MEDS: TYLENOL 650 MG PO (23:07)
[2024-10-19 06:00] VITALS: BMI 23.5
[2024-10-19 07:20] VITALS: BP 107/57
[2024-10-19] MEDS: DUPHALAC/CHRONULAC PO ×4 (08:13→21:36)
[2024-10-19] MEDS: VITAMIN B1 100 MG PO (08:13)
[2024-10-19] MEDS: MAGNESIUM OXIDE 500 MG PO ×2 (08:13→20:24)
[2024-10-19] MEDS: PROTONIX 40 MG PO ×2 (08:13→20:24)
[2024-10-19] MEDS: NICODERM TRANSDERMAL 7 MG TRANSDERM (08:13)
[2024-10-19] MEDS: FEOSOL 325 MG PO (08:14)
[2024-10-19] MEDS: LASIX 20 MG PO (08:14)
[2024-10-19] MEDS: FOLVITE 1 MG PO (08:14)
[2024-10-19] MEDS: VIBRAMYCIN 100 MG PO (08:14)
[2024-10-19] MEDS: XIFAXAN 550 MG PO ×2 (08:14→20:24)
[2024-10-19] MEDS: ALDACTONE 25 MG PO (08:14)
[2024-10-19] MEDS: MAGIC OR MIRACLE MOUTHWASH 5 ML PO ×3 (08:15→20:20)
[2024-10-19] MEDS: DESENEX/MITRAZOL/ZEASORB 1 APPLIC TOPICAL ×2 (08:17→20:27)
[2024-10-19] MEDS: PREPARATION H OINTMENT 1 APPLIC RECTAL ×2 (08:17→20:26)
[2024-10-19 09:24] LABS: Hematocrit 23.6 % (39.0-52.0); Hemoglobin 7.9 g/dL (13.0-18.0); Mean Corp Hgb Conc. 33.5 g/dL (33.0-37.0); Mean Corpuscular Hgb 32.1 pg (27.0-31.0); Mean Corpuscular Volume 95.9 fL (80.0-94.0); Mean Platelet Volume 12.5 fL (7.4-10.4); Platelet Count 46 10^3/uL (130-400); Red Blood Cell Count 2.46 10^6/uL (4.70-6.10); Red Cell Dist. Width 17.2 % (11.5-14.5); White Blood Cell Count 4.9 10^3/uL (4.8-10.8)
[2024-10-19 09:42] LABS: COVID-19 Antigen Negative (Negative)
--- NOTE | 2024-10-19 10:00 | W.PN.HOSP.TC ---
Today's Communication/Plan
-
fever workup - blood culture, swabs, UA. CXR without over pneumonia.
Ascites on US; paracentesis with labs today
concern for 2nd R molar pain, possible abscess could explain fevers. check Elena-XR. Dental consult. IV Unasyn empirically after all samples collected.
Assessment / Plan
Assessment / Plan
General: Well Developed,no distress
HEENT: NormoCephalic, Moist mucous membranes, Atraumatic, Other (broken lower right tooth)
Respiratory: Clear, Wheezes and Non Labored Respirations
Cardiac: S1/S2 and Regular Rhythm
GI: Soft, Normal Bowel Sounds and distended from ascites
Genito-urinary: Sher
Musculoskeletal: No Edema
Neuro: Awake, alert and oriented
Psych:calm
Assessment:
Agitation, hallucination could likely be multifactorial secondary to TME,medication use, +/- cocaine use
per spouse patient is currently not using any drugs; could be false +. patient denies any cocaine use
mental status improved; psych following. Still has periods of paranoia at times which could be related to hepatic encephalopathy,
Acute on Chronic Hepatic encephalopathy
UDS positive for opioids, cocaine. did got morphine a day prior in ED
psych following; on Risperdal and Ativan
now off Precedex; monitor
Unclear when his last alcohol use was
Does have history of advanced liver disease and hepatic encephalopathy
Continue with lactulose and rifaximin
fever overnight 10/14 and 10/17; monitor as no new symptoms. Prior workup negative.
Antibiotic discontinued by ID, monitor.
Overall prognosis is very poor but patient's and family would like him to be full code and are not ready for hospice care
stop atarax and trazadone
sher was placed on admission; nikky wy'ed, now voiding
resume Aldactone and Lasix 10/18
New fever 10/18 (101F)
- repeat panculture
- also evaluate for SBP with repeat paracentesis 10/19; consulted IR with labs ordered
- also concern for R molar infection (see below)
Acute hypoxic respiratory failure likely secondary to TME and possible aspiration event
resolved
Continue to wean oxygen as tolerated, now off o2
End-stage liver disease, chronic liver failure
s/p para 10/12 and 10/16; no evidence of SBP. Albumin was given. Continue doxycycline prophylaxis per ID.
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 Patient will follow-up with corporate safety coordinator outpatient/Dr. Dan
throat pain
magic mouthwash
strep neg; check flu
- recent COVID 09/28/24
Hypotension 2/2 cirrhosis
albumin
now BP better
resume Aldactone and Lasix 10/18
right molar tooth pain
- also concern for R lower 2nd molar infection - start empiric Unasyn after paracentesis. check elena x-ray. Have reached out to dentist if able to evaluate.
pancytopenia likely secondary to cirrhosis
Monitor
Anemia of chronic anemia secondary to liver cirrhosis
Monitor hgb
Recurrent upper GI bleeding likely secondary to portal hypertensive gastropathy
h/o gastric varices s/p gastric artery coiling 09/2024
HCV s/p tx with Epclusa
Chronic pain
Essential hypertension
GERD: Cont PPI
h/o skin cancer s/p Mohs surgery
Anxiety
COPD: Cont Symbicort/Spiriva
Hx ascites r/t portal vein HTN from decompensated cirrhosis
History insomnia
On trazodone - stopped
Code Status: Full Code
DVT Px: SCDs
Anticipated Discharge: > 48 hours
Subjective/Interval History
-
Date of Service: October 19, 2024
febrile overnight to 101
no new complaints
abdomen slightly more distended today but otherwise no new complaints
he feels like his tooth could be infected, reports ongoing pain
Objective Data
-
Labs:
Laboratory Results
10/19/24
08:24
WBC 4.9
Hgb 7.9 L
Hct 23.6 L
Plt Count 46 L
Sodium Pending
Potassium Pending
Chloride Pending
Carbon Dioxide Pending
BUN Pending
Creatinine Pending
Glucose Pending
Calcium Pending
Total Bilirubin Pending
AST Pending
ALT Pending
Alkaline Phosphatase Pending
Vital Signs:
Vital Signs
Temp Pulse Resp BP Pulse Ox
98.3 F 90 16 107/57 93
10/19/24 07:20 10/19/24 08:14 10/19/24 07:20 10/19/24 08:14 10/19/24 07:20
I&O
10/18/24 10/19/24 10/20/24
06:59 06:59 06:59
Intake Total 1919 1200 / 1200
Balance 1919 / 1919 1200 / 1200
Data Reviewed
-
Total Time Spent with Patient (in minutes): 44
Labs: Labs Reviewed by me
[2024-10-19 10:01] LABS: ALT (SGPT) 16 U/L (0-50); AST (SGOT) 32 U/L (17-59); Albumin 2.7 g/dl (3.5-5.0); Alkaline Phosphatase 78 U/L (38-126); Blood Urea Nitrogen 17 mg/dl (9-20); Calcium 7.9 mg/dl (8.4-10.2); Carbon Dioxide 24 mmol/L (22-30); Chloride 107 mmol/L (98-107); Estimated Creatinine Clearance 75 ml/min; Glucose 93 mg/dl (70-99); Sodium 136 mmol/L (135-145); Total Bilirubin 4.3 mg/dl (0.2-1.3); eGFR > 60.00
[2024-10-19 11:04] VITALS: BP 126/66; BP_SYST 89
--- NOTE | 2024-10-19 11:12 | CM ---
Patient seen at bedside.
Spoke with Afua at [facility] as patient will not be returning today.
Reference # is the approval #: [id number]
Start 10/17 NRD 10/22
CXR, Fever work-up, paracentesis/labs
Patient with R 2nd molar pain
PLAN: [facility]
Report #: [phone]
Fax #: [phone]
w/c transportation - aware
[2024-10-19 12:04] VITALS: BP 119/57; BP_SYST 84
[2024-10-19 12:32] VITALS: BP 119/57
[2024-10-19 13:24] LABS: Body Fluid Mononuclear 31.9 %; Body Fluid Polymorphonuclear 68.1 %; Body Fluid WBC 1157 /CUMM
[2024-10-19 13:28] LABS: Body Fluid Second Tech CF
[2024-10-19 13:43] LABS: Urine Albumin Negative (Neg - Trace); Urine Bilirubin Negative (Negative); Urine Character Clear (Clear); Urine Color Yellow; Urine Glucose Negative (Negative); Urine Ketone Negative (Negative); Urine Leukocyte Trace (Negative); Urine Nitrite Negative (Negative); Urine Occult Blood 3+ (Negative); Urine Specific Gravity 1.015 (<1.030); Urine Urobilinogen Negative (Neg - 1+)
[2024-10-19] MEDS: UNASYN IV (14:08)
[2024-10-19 14:09] LABS: Body Fluid Albumin < 1.0 g/dl; Body Fluid Amylase < 30 U/L; Body Fluid LDH 92 U/L; Body Fluid Protein < 2.0 g/dl
--- NOTE | 2024-10-19 14:50 | W.PN.UPDATE ---
Update Note
Progress Note Update
Dental X-ray without radiographic evidence of abscess. stop Unasyn. SBP on para labs. Start Ertapenem pending cultures (noted previous ascites fluid with ESBL in 09/2024) - hold prophylactic Doxy. Blood culture pending. IV Albumin for SBP ordered
(day 1 dose, will need day 3 dose ordered on Tuesday).
[2024-10-19 14:59] LABS: Urine Squamous Cell 26-30 /LPF (Few); Urine Urothelial Cell 0-2 /LPF (FEW)
[2024-10-19 15:00] LABS: Urine Red Blood Cell 30-40 /HPF (0-2)
[2024-10-19 15:01] LABS: Urine Bacteria Few (Negative)
[2024-10-19 15:10] VITALS: BP 110/51
[2024-10-19] MEDS: FLEXBUMIN 100 IV ×2 (15:10→22:45)
[2024-10-19] MEDS: INVANZ 60 MG IV (17:03)
[2024-10-19] MEDS: ULTRAM 50 MG PO (20:30)
[2024-10-19 23:00] VITALS: BP 114/55
[2024-10-19] MEDS: TYLENOL 650 MG PO (23:06)
[2024-10-20] MEDS: MAGIC OR MIRACLE MOUTHWASH 5 ML PO ×3 (05:13→17:49)
[2024-10-20 05:16] VITALS: BMI 22.1
[2024-10-20 07:10] VITALS: BP 111/61
[2024-10-20 07:54] LABS: Hematocrit 23.6 % (39.0-52.0); Hemoglobin 7.7 g/dL (13.0-18.0); Mean Corp Hgb Conc. 32.6 g/dL (33.0-37.0); Mean Corpuscular Hgb 32.4 pg (27.0-31.0); Mean Corpuscular Volume 99.2 fL (80.0-94.0); Mean Platelet Volume 11.7 fL (7.4-10.4); Platelet Count 47 10^3/uL (130-400); Red Blood Cell Count 2.38 10^6/uL (4.70-6.10); Red Cell Dist. Width 17.1 % (11.5-14.5)
[2024-10-20] MEDS: FLEXBUMIN 100 IV (08:20)
[2024-10-20] MEDS: VITAMIN B1 100 MG PO (08:24)
[2024-10-20] MEDS: MAGNESIUM OXIDE 500 MG PO ×2 (08:24→19:22)
[2024-10-20] MEDS: NICODERM TRANSDERMAL 7 MG TRANSDERM (08:24)
[2024-10-20] MEDS: DUPHALAC/CHRONULAC 20 GRAMS PO ×2 (08:24→15:39)
[2024-10-20 08:25] LABS: Blood Urea Nitrogen 18 mg/dl (9-20); Calcium 7.7 mg/dl (8.4-10.2); Carbon Dioxide 20 mmol/L (22-30); Chloride 107 mmol/L (98-107); Estimated Creatinine Clearance 79 ml/min; Glucose 190 mg/dl (70-99); Potassium 3.6 mmol/L (3.5-5.1); Sodium 137 mmol/L (135-145); eGFR > 60.00
[2024-10-20] MEDS: XIFAXAN 550 MG PO ×2 (08:25→19:22)
[2024-10-20] MEDS: PROTONIX 40 MG PO ×2 (08:25→19:19)
[2024-10-20] MEDS: FOLVITE 1 MG PO (08:25)
[2024-10-20] MEDS: FEOSOL 325 MG PO (08:25)
[2024-10-20] MEDS: LASIX 20 MG PO (08:26)
[2024-10-20] MEDS: ALDACTONE 25 MG PO (08:26)
[2024-10-20] MEDS: PREPARATION H OINTMENT 1 APPLIC RECTAL ×2 (08:35→19:28)
[2024-10-20] MEDS: DESENEX/MITRAZOL/ZEASORB 1 APPLIC TOPICAL ×2 (08:35→19:27)
--- NOTE | 2024-10-20 08:52 | W.PN.ID1 ---
Date of Service
Date of Service: October 20, 2024
Today's Communication
Continue Ertapenem (d2) pending cx data.
Assessment / Plan
SBP
New Fever
Advanced / End-stage Cirrhosis
Recent hx ESBL SBP and bacteremia
Hx Upper GI bleed
COPD
Hx Recurrent SBP
Hepatic encephalopathy
Hx of CVA
Recommendations:
10/19 paracentesis 4.8L ascites - 1157 WBC, 68%PMN, cx pending
Continue Ertapenem (d2) pending cx data.
Hold prophylactic doxycycline while on Ertapenem.
Follow temps.
����������������������������������������������������������
Chief Complaint
-: Fever and Other
Subjective / Review of Systems
Reconsult for fever, liver decompensation.
Abd pain better after paracentesis. Had chills last night.
Vital Signs / Physical Exam
Vital Signs
Vital Signs
Temp Pulse Resp BP Pulse Ox
98.2 F 88 16 111/61 96
10/20/24 07:10 10/20/24 08:26 10/20/24 07:10 10/20/24 08:26 10/20/24 07:10
Selected Entries
10/17/24
23:27 10/18/24
23:00 10/19/24
23:00
Temp 100.7 F H 101.1 F H 100.5 F H
Physical Exam
Constitutional: No Acute Distress and Comfortable
Cardiovascular: Regular Rate and S1/S2
Pulmonary: Clear
Gastrointestinal: Soft, Non Tender and Distended (moderate)
Extremities: Edema
Neurological: AO x 3
Objective Data
Lab Data
Lab Results
10/20/24 06:38
10/20/24 06:38
PT 23.2 Sec (11.4-14.6) H 10/13/24 03:58
INR 2.05 10/13/24 03:58
APTT 44.4 Sec (23.4-35.0) H 10/11/24 16:00
Estimated Creat Clear 79 ml/min 10/20/24 06:38
Lactic Acid 1.2 mmol/L (0.7-2.0) 10/13/24 09:58
Total Bilirubin 4.3 mg/dl (0.2-1.3) H 10/19/24 08:24
AST 32 U/L (17-59) 10/19/24 08:24
ALT 16 U/L (0-50) 10/19/24 08:24
Alkaline Phosphatase 78 U/L (38-126) 10/19/24 08:24
Most recent labs reviewed.
Micro Results:
10/19/24 11:29 Body Fluid Culture - Pending
Peritoneal Fluid Gram Stain - Preliminary
10/19/24 09:15 Influenza Types A & B (FRACISCO) - Final
Nasal Swab Negative for Influenza A & B, NAAT
Negative results must be combined with clinical observations
and patient history.
Nucleic Acid Amplification test (NAAT)performed on the
[employer] platform.
10/16/24 13:53 Body Fluid Culture - Final
Peritoneal Fluid No Growth After 72 Hours
Gram Stain - Final
10/19/24 08:24 Blood Culture - Pending
Blood/Venous
10/18/24 10:04 Influenza Types A & B (FRACISCO) - Final
Nasal Swab Negative for Influenza A & B, NAAT
Negative results must be combined with clinical observations
and patient history.
Nucleic Acid Amplification test (NAAT)performed on the
[employer] platform.
10/15/24 20:02 Streptococcus Screen (LOVE) - Final
Throat/Pharynx No Beta Hemolytic Streptococci Isolated
Streptococcus Rapid Screen - Final
Rapid Strep Screen (Group A) Negative
10/15/24 20:02 Throat Culture - Final
Throat/Pharynx Usual Respiratory Marisela
10/11/24 16:00 Blood Culture - Final
Blood/Venous No Growth - Final Report
10/11/24 16:00 Blood Culture - Final
Blood/Venous No Growth - Final Report
10/12/24 09:12 Body Fluid Culture - Final
Peritoneal Fluid No Growth After 72 Hours
Gram Stain - Final
10/11/24 16:00 Urine Culture - Final
Urine NO GROWTH
Imaging:
09/26/2024 CT abdomen/pelvis with IV contrast: There is mild wall thickening of the distal esophagus suggesting esophagitis. Subtle liver surface nodularity consistent with history of cirrhosis. There is evidence of portal hypertension with
splenomegaly and extensive portosystemic venous collaterals. Mild ascites is noted. Minor diverticulosis without acute diverticulitis. A nonobstructing 8 mm left ureteropelvic junction calculus is noted and similar to prior examinations. Please
see full dictation for additional detail. Film personally viewed.
--- NOTE | 2024-10-20 08:55 | W.PN.GI.CBS2 ---
Today's Communication / Plan
-
Continue ertapenem for +SBP, IV albumin Day 1 and 3
will plan for repeat paracentesis Monday 10/22
Assessment / Plan
-
Mr Mazariegos is a 59 y.o male well-known to GI group with past medical history significant for decompensated cirrhosis (HCV vs EtOH) with intractable ascites with weekly para, HE, GI bleeding by recurrent hospitalizations with HE secondary to
acute on chronic GI bleeding 2/2 PHG gastric varix, hx of prior post-polypectomy bleed, prior transfer to [place] for Ultrasound guided gastric artery coiling procedure, chronic HCV (s/p treatment with Epclusa s/p SVR), CVA, HTN, COPD, and chronic
thrombocytopenia. He also had recent SBP, covid, ecoli ESBL blood/peritoneal fluid, and UTI. He now presents with recurrent evaluation with confusion. Since admission currently no signs of infection and neg SBP with cultures pending. He is also
noted with + tox screen for cocaine on admission along with bleeding from gums.
GI asked to re-consult 10/20/24 for +SBP
10/19 paracentesis 4.8L ascites - 1157 WBC, 68%PMN, cx pending
Impression/Plan:
SBP in the setting of decompensated cirrhosis
- ertapenem has been initiated, ID consulted with recent history of ESBL SBP and bacteremia
- IV albumin infusion Day 1 and Day 3
- will plan for repeat paracentesis Tuesday
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
- not transplant candidate (+PETH testing, +tox screen opiates/cocaine)
- poor prognosis, consider Palliative Care
Subjective
Subjective
Date of Service: October 20, 2024
Pt reports feeling OK today - no abdominal pain, nausea, vomiting. He had fever yesterday to 100.5, improved today (98.2).
With paracentesis now showing +SBP.
He does continue to c/o dental pain.
Objective
Data Reviewed
Laboratory Data:
Laboratory Results
10/20/24 06:38
10/20/24 06:38
Laboratory Results
PT 23.2 Sec (11.4-14.6) H 10/13/24 03:58
INR 2.05 10/13/24 03:58
APTT 44.4 Sec (23.4-35.0) H 10/11/24 16:00
Magnesium 1.6 mg/dl (1.6-2.3) 10/11/24 16:00
Total Bilirubin 4.3 mg/dl (0.2-1.3) H 10/19/24 08:24
AST 32 U/L (17-59) 10/19/24 08:24
ALT 16 U/L (0-50) 10/19/24 08:24
Alkaline Phosphatase 78 U/L (38-126) 10/19/24 08:24
Vital Signs and I&O:
Vital Signs
Temp Pulse Resp BP Pulse Ox
98.2 F 88 16 111/61 96
10/20/24 07:10 10/20/24 08:26 10/20/24 07:10 10/20/24 08:26 10/20/24 07:10
I&O
10/19/24 10/20/24 10/21/24
06:59 06:59 06:59
Intake Total 1200 / 1200 1660 / 1660
Balance 1200 / 1200 1660 / 1660
Physical Exam
Physical Exam
Cardiology: Normal Sinus Rhythm
Pulmonary: Clear
GI: Soft, Distended, Non Tender and Normal Bowel Sounds
Extremities: No Edema
Neuro: Non Focal
--- NOTE | 2024-10-20 11:09 | W.PN.HOSP.TC ---
Today's Communication/Plan
-
Albumin
IV ertapenem
Follow up on Para Culture
Assessment / Plan
Assessment / Plan
General: Well Developed,no distress
HEENT: NormoCephalic, Moist mucous membranes, Atraumatic
-No pharyngeal erythema/cobblestoning noted, right lower tooth cracked and decaying
Respiratory: Clear, Wheezes and Non Labored Respirations
Cardiac: S1/S2 and Regular Rhythm
GI: Soft, Normal Bowel Sounds and distended from ascites
Genito-urinary: Sher
Musculoskeletal: No Edema
Neuro: Awake, alert and oriented
Psych:calm
Assessment:
Sepsis secondary to SBP less likely dental caries/tooth infection/abscess
-Hx of Ecoli SBP
-Started on IV ertapenem which also has anaerobic coverage
-Providing albumin
-ID and GI following
Agitation, hallucination could likely be multifactorial secondary to TME,medication use, +/- cocaine use
per spouse patient is currently not using any drugs; could be false +. patient denies any cocaine use
mental status improved; psych following. Still has periods of paranoia at times which could be related to hepatic encephalopathy,
Acute on Chronic Hepatic encephalopathy
UDS positive for opioids, cocaine. did got morphine a day prior in ED
psych following; on Risperdal and Ativan
now off Precedex; monitor
Unclear when his last alcohol use was
Does have history of advanced liver disease and hepatic encephalopathy
Continue with lactulose and rifaximin
fever overnight 10/14 and 10/17; monitor as no new symptoms. Prior workup negative.
Antibiotic discontinued by ID, monitor.
Overall prognosis is very poor but patient's and family would like him to be full code and are not ready for hospice care
stop atarax and trazadone
sher was placed on admission; nikky wi'ed, now voiding
resume Aldactone and Lasix 10/18
Acute hypoxic respiratory failure likely secondary to TME and possible aspiration event
resolved
Off of o2
End-stage liver disease, chronic liver failure
s/p para 10/12 and 10/16; no evidence of SBP. Albumin was given. Continue doxycycline prophylaxis per ID.
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 Patient will follow-up with practice coordinator outpatient/Dr. Dan
throat pain
magic mouthwash
strep neg; check flu
- recent COVID 09/28/24
Hypotension 2/2 cirrhosis
albumin
now BP better
resume Aldactone and Lasix 10/18
right molar tooth pain
- Not sure if Dental Medicine will see in the hospital
- If does not, and is discharge should at least be on Augmentin with outpatient Dental Medicine follow up
pancytopenia likely secondary to cirrhosis
Monitor
Anemia of chronic anemia secondary to liver cirrhosis
Monitor hgb
Recurrent upper GI bleeding likely secondary to portal hypertensive gastropathy
h/o gastric varices s/p gastric artery coiling 09/2024
HCV s/p tx with Epclusa
Chronic pain
Essential hypertension
GERD: Cont PPI
h/o skin cancer s/p Mohs surgery
Anxiety
COPD: Cont Symbicort/Spiriva
Hx ascites r/t portal vein HTN from decompensated cirrhosis
History insomnia
On trazodone - stopped
Code Status: Full Code
DVT Px: SCDs
Anticipated Discharge: > 48 hours
Subjective/Interval History
-
Date of Service: October 20, 2024
seen and examined
c/o mought pain, right sided, under the area where he has a decayign tooth.
per nusr has twislers, skittles and candy
states he does not drink alochol anymore nor use drugs
-does not know where the cocaine nor the alcohol came from
he wants to lives with his four grand daughters.
states his legs are so much better now after all the para's
Objective Data
-
Labs:
Laboratory Results
10/20/24
06:38
WBC 4.0 L
Hgb 7.7 L
Hct 23.6 L
Plt Count 47 L
Sodium 137
Potassium 3.6
Chloride 107
Carbon Dioxide 20 L
BUN 18
Creatinine 1.0
Glucose 190 H
Calcium 7.7 L
Vital Signs:
Vital Signs
Temp Pulse Resp BP Pulse Ox
98.2 F 88 16 111/61 96
10/20/24 07:10 10/20/24 08:26 10/20/24 07:10 10/20/24 08:26 10/20/24 07:10
I&O
10/19/24 10/20/24 10/21/24
06:59 06:59 06:59
Intake Total 1200 / 1200 1660 / 1660
Balance 1200 / 1200 1660 / 1660
[2024-10-20 15:33] VITALS: BP 126/58
[2024-10-20] MEDS: INVANZ 60 MG IV (16:47)
[2024-10-20] MEDS: ULTRAM 50 MG PO (19:26)
[2024-10-20] MEDS: DUPHALAC/CHRONULAC PO (23:12)
[2024-10-20 23:34] VITALS: BP 121/58
[2024-10-21] MEDS: MAGIC OR MIRACLE MOUTHWASH 5 ML PO ×4 (00:55→20:56)
[2024-10-21 05:26] VITALS: BMI 22.5
--- NOTE | 2024-10-21 06:36 | W.PN.GI.CBS2 ---
Today's Communication / Plan
-
Continue IV Ertapenem as per ID given SBP which seems secondary to culture-negative neutrocytic ascites (CNNA). Ordered repeat labs, needs close monitoring of renal function. Recommend IR consult for repeat paracentesis tomorrow. See rest of care as
outlined below.
Assessment / Plan
-
#SBP 2/2 #CNNA
#Decompensated HCV/EtOH Cirrhosis
#GV Bleeding (s/p GV coiling)
#Acute on Chronic GI Bleeding (2/2 PHG)
#Recurrent Ascites #Recurrent HE
#Hx of SBP
Mr Mazariegos is a 59 y.o male with a past medical history significant for decompensated cirrhosis (HCV/EtOH) with intractable ascites (requiring q weekly paracentesis), recurrent HE, GI bleeding by recurrent hospitalizations with HE secondary to
acute on chronic GI bleeding 2/2 PHG and bleeding IGV-1 (prior transfer to [place] for Ultrasound EGD/EUS s/p gastric coiling procedure), chronic HCV (s/p treatment with Epclusa s/p SVR), CVA, HTN, COPD, chronic thrombocytopenia and prior history of
SBP with E. coli ESBL blood/peritoneal fluid who initially presented on 10/11 for recurrent HE.
Of note, he recently f/u with Dr. Dan at [place] and outpatient evaluation was positive for PETH test and his UDS on admission was positive for opiates and cocaine. Previous etiology of prior HE and agitation felt to be related to medication with
recent Atarax and Trazadone use versus (+) UDS screen though patient continues to deny use. Now with recent fevers found to have SBP with PMNs 786 with recent peritoneal culture 10/19 (-), which seems most consistent with culture-negative
neutrocytic ascites (CNNA). No other concern for renal dysfunction or HRS. Started on IV albumin as per SBP protocol on day 1 and day 3. ID has also further been consulted to guide further management.
Recommendations:
- Repeat labs- trend daily MELD 3.0 labs with close monitoring of renal function given SBP
- Continue IV Ertapenem as per ID
- IV albumin as per SBP protocol on Day 1 (1.5 gm/kg) and Day 3 (1 gm/kg)
- Monitor peritoneal and blood cultures from 10/19, currently NGTD
- Continue to hold diuretics given SBP as not to precipitate HRS, have discontinued on 10/20
- Please consult IR for repeat paracentesis tomorrow, 10/22, given SBP
- Send repeat cell count with differential during repeat paracentesis to ensure down-trending PMN count given culture-negative neutrocytic ascites (CNNA) to assess response to therapy
- Continue lactulose and Xifaxan for ongoing HE
- Given that patient is not an OLT candidate, overall prognosis remains poor. Recommend Palliative care consult to assist in further GOC discussions
- Strict avoidance of all NSAIDs while inpatient and avoidance of opioids
- Ensure 2 gm Na+ restricted diet
- Rest of care as outlined below
GI team will continue to follow while inpatient. Please call with any questions or concerns.
Subjective
Subjective
Date of Service: October 21, 2024
- Remains on IV Ertapenem, peritoneal and blood culture 10/19 remain NGTD
- S/p IV albumin
- Pending AM labs
Feeling well, resting comfortably in bed. Denies any abdominal pain or nausea/vomiting. No other fevers, chills or other constitutional symptoms. Mentating appropriately and conversant. Spoke with patient's , Cherise, early this AM and provided her
an update regarding his SBP and current management.
Objective
Data Reviewed
Laboratory Data:
Laboratory Results
10/20/24 06:38
10/20/24 06:38
Laboratory Results
PT 23.2 Sec (11.4-14.6) H 10/13/24 03:58
INR 2.05 10/13/24 03:58
APTT 44.4 Sec (23.4-35.0) H 10/11/24 16:00
Magnesium 1.6 mg/dl (1.6-2.3) 10/11/24 16:00
Total Bilirubin 4.3 mg/dl (0.2-1.3) H 10/19/24 08:24
AST 32 U/L (17-59) 10/19/24 08:24
ALT 16 U/L (0-50) 10/19/24 08:24
Alkaline Phosphatase 78 U/L (38-126) 10/19/24 08:24
Vital Signs and I&O:
Vital Signs
Temp Pulse Resp BP Pulse Ox
98.5 F 86 16 121/58 99
10/20/24 23:34 10/20/24 23:34 10/20/24 23:34 10/20/24 23:34 10/20/24 23:34
I&O
10/19/24 10/20/24 10/21/24
06:59 06:59 06:59
Intake Total 1200 / 1200 1660 / 1660 900 / 900
Output Total 100 / 100
Balance 1200 / 1200 1660 / 1660 800 / 800
Physical Exam
Physical Exam
HEENT: Anicteric and Moist mucous membranes
Cardiology: Normal Sinus Rhythm
Pulmonary: Other (Normal WOB on room air)
GI: Soft, Non Distended and Non Tender
Extremities: No Edema
Neuro: Non Focal and Other (AAOX3; subtle asterixis)
[2024-10-21 07:19] VITALS: BP 110/55
[2024-10-21] MEDS: DUPHALAC/CHRONULAC 20 GRAMS PO ×3 (08:08→21:03)
[2024-10-21] MEDS: FOLVITE 1 MG PO (08:09)
[2024-10-21] MEDS: XIFAXAN 550 MG PO ×2 (08:09→20:55)
[2024-10-21] MEDS: FEOSOL 325 MG PO (08:09)
[2024-10-21] MEDS: VITAMIN B1 100 MG PO (08:09)
[2024-10-21] MEDS: MAGNESIUM OXIDE 500 MG PO ×2 (08:09→20:55)
[2024-10-21] MEDS: NICODERM TRANSDERMAL 7 MG TRANSDERM (08:09)
[2024-10-21] MEDS: PROTONIX 40 MG PO ×2 (08:09→20:56)
[2024-10-21] MEDS: TYLENOL 650 MG PO (08:15)
[2024-10-21] MEDS: PREPARATION H OINTMENT 1 APPLIC RECTAL ×2 (08:17→20:57)
[2024-10-21] MEDS: DESENEX/MITRAZOL/ZEASORB 1 APPLIC TOPICAL ×2 (08:17→20:55)
[2024-10-21 08:50] LABS: % Basophils 0.8 % (0-2); % Eosinophils 9.4 % (0-6); % Immature Granulocytes 0.4 % (0-0.5); % Lymphocytes 20.8 % (20.5-51.1); % Monocytes 6.4 % (1.7-9.3); % Neutrophils 62.2 % (42.2-75.2); Absolute Eosinophils 0.5 10^3/uL (0-0.7); Absolute Monocytes 0.3 10^3/uL (0.1-0.6); Absolute Neutrophils 3.1 10^3/uL (1.4-6.5); Hematocrit 27.5 % (39.0-52.0); Hemoglobin 9.1 g/dL (13.0-18.0); Mean Corp Hgb Conc. 33.1 g/dL (33.0-37.0); Mean Corpuscular Hgb 32.9 pg (27.0-31.0); Mean Corpuscular Volume 99.3 fL (80.0-94.0); Mean Platelet Volume 10.4 fL (7.4-10.4); Nucleated Red Blood Cells % 0 % (-); Platelet Count 64 10^3/uL (130-400); Red Blood Cell Count 2.77 10^6/uL (4.70-6.10); Red Cell Dist. Width 16.9 % (11.5-14.5)
[2024-10-21 08:56] LABS: INR 1.94; PT 22.3 Sec (11.4-14.6)
[2024-10-21 09:00] LABS: ALT (SGPT) 16 U/L (0-50); AST (SGOT) 35 U/L (17-59); Albumin 3.5 g/dl (3.5-5.0); Alkaline Phosphatase 72 U/L (38-126); Blood Urea Nitrogen 14 mg/dl (9-20); Calcium 8.4 mg/dl (8.4-10.2); Carbon Dioxide 24 mmol/L (22-30); Chloride 107 mmol/L (98-107); Estimated Creatinine Clearance 89 ml/min; Glucose 114 mg/dl (70-99); Potassium 3.8 mmol/L (3.5-5.1); Sodium 139 mmol/L (135-145); Total Bilirubin 3.4 mg/dl (0.2-1.3); Total Protein 5.5 g/dl (6.3-8.2); eGFR > 60.00
--- NOTE | 2024-10-21 11:48 | W.PN.ID1 ---
Date of Service
Date of Service: October 21, 2024
Today's Communication
Continue Ertapenem.
Assessment / Plan
SBP
New Fever- now resolved
Advanced / End-stage Cirrhosis
Recent hx ESBL SBP and bacteremia
Hx Upper GI bleed
COPD
Hx Recurrent SBP
Hepatic encephalopathy
Hx of CVA
Recommendations:
10/19 paracentesis 4.8L ascites -> 1157 WBC, 68%PMN, cx neg at 18hrs.
Continue Ertapenem (d3) pending cx data.
Hold prophylactic doxycycline while on Ertapenem.
Follow clinically.
����������������������������������������������������������
Chief Complaint
-: Fever and Other
Subjective / Review of Systems
Abdominal pain resolved. Feels well.
Vital Signs / Physical Exam
Vital Signs
Vital Signs
Temp Pulse Resp BP Pulse Ox
98.5 F 84 17 110/55 98
10/21/24 07:19 10/21/24 07:19 10/21/24 07:19 10/21/24 07:19 10/21/24 11:12
Physical Exam
Constitutional: No Acute Distress and Comfortable
Cardiovascular: Regular Rate and S1/S2
Pulmonary: Clear
Gastrointestinal: Soft, Non Tender and Distended (moderate)
Extremities: Edema
Neurological: AO x 3
Objective Data
Lab Data
Lab Results
10/21/24 08:37
10/21/24 08:37
PT 22.3 Sec (11.4-14.6) H 10/21/24 08:37
INR 1.94 10/21/24 08:37
APTT 44.4 Sec (23.4-35.0) H 10/11/24 16:00
Estimated Creat Clear 89 ml/min 10/21/24 08:37
Lactic Acid 1.2 mmol/L (0.7-2.0) 10/13/24 09:58
Total Bilirubin 3.4 mg/dl (0.2-1.3) H 10/21/24 08:37
AST 35 U/L (17-59) 10/21/24 08:37
ALT 16 U/L (0-50) 10/21/24 08:37
Alkaline Phosphatase 72 U/L (38-126) 10/21/24 08:37
Most recent labs reviewed.
Micro Results:
10/19/24 08:24 Blood Culture - Preliminary
Blood/Venous No Growth in 48 hours- Final report to follow
10/19/24 11:29 Body Fluid Culture - Preliminary
Peritoneal Fluid No Growth After 18-24 Hours
Gram Stain - Preliminary
10/19/24 09:15 Influenza Types A & B (FRACISCO) - Final
Nasal Swab Negative for Influenza A & B, NAAT
Negative results must be combined with clinical observations
and patient history.
Nucleic Acid Amplification test (NAAT)performed on the
[employer] NOW platform.
10/16/24 13:53 Body Fluid Culture - Final
Peritoneal Fluid No Growth After 72 Hours
Gram Stain - Final
10/18/24 10:04 Influenza Types A & B (FRACISCO) - Final
Nasal Swab Negative for Influenza A & B, NAAT
Negative results must be combined with clinical observations
and patient history.
Nucleic Acid Amplification test (NAAT)performed on the
[employer] platform.
10/15/24 20:02 Streptococcus Screen (LOVE) - Final
Throat/Pharynx No Beta Hemolytic Streptococci Isolated
Streptococcus Rapid Screen - Final
Rapid Strep Screen (Group A) Negative
10/15/24 20:02 Throat Culture - Final
Throat/Pharynx Usual Respiratory Marisela
10/11/24 16:00 Blood Culture - Final
Blood/Venous No Growth - Final Report
10/11/24 16:00 Blood Culture - Final
Blood/Venous No Growth - Final Report
10/12/24 09:12 Body Fluid Culture - Final
Peritoneal Fluid No Growth After 72 Hours
Gram Stain - Final
10/11/24 16:00 Urine Culture - Final
Urine NO GROWTH
Imaging:
09/26/2024 CT abdomen/pelvis with IV contrast: There is mild wall thickening of the distal esophagus suggesting esophagitis. Subtle liver surface nodularity consistent with history of cirrhosis. There is evidence of portal hypertension with
splenomegaly and extensive portosystemic venous collaterals. Mild ascites is noted. Minor diverticulosis without acute diverticulitis. A nonobstructing 8 mm left ureteropelvic junction calculus is noted and similar to prior examinations. Please
see full dictation for additional detail. Film personally viewed.
--- NOTE | 2024-10-21 14:38 | W.PN.HOSP.TC ---
Today's Communication/Plan
-
iv atb
albumin
ir consult for repeat para tomorrow to assess pmn
Assessment / Plan
Assessment / Plan
General: Well Developed,no distress
HEENT: NormoCephalic, Moist mucous membranes, Atraumatic
-No pharyngeal erythema/cobblestoning noted, right lower tooth cracked and decaying
Respiratory: Clear, Wheezes and Non Labored Respirations
Cardiac: S1/S2 and Regular Rhythm
GI: Soft, Normal Bowel Sounds and distended from ascites
Genito-urinary: Sher
Musculoskeletal: No Edema
Neuro: Awake, alert and oriented
Psych:calm
Assessment:
Sepsis secondary to SBP less likely dental caries/tooth infection/abscess
-Hx of Ecoli SBP
-Started on IV ertapenem which also has anaerobic coverage
-Providing albumin
-ID and GI following
-IR consult for repeat para
Agitation, hallucination could likely be multifactorial secondary to TME,medication use, +/- cocaine use
per spouse patient is currently not using any drugs; could be false +. patient denies any cocaine use
mental status improved; psych following. Still has periods of paranoia at times which could be related to hepatic encephalopathy,
Acute on Chronic Hepatic encephalopathy
UDS positive for opioids, cocaine. did got morphine a day prior in ED
psych following; on Risperdal and Ativan
now off Precedex; monitor
Unclear when his last alcohol use was
Does have history of advanced liver disease and hepatic encephalopathy
Continue with lactulose and rifaximin
fever overnight 10/14 and 10/17; monitor as no new symptoms. Prior workup negative.
Antibiotic discontinued by ID, monitor.
Overall prognosis is very poor but patient's and family would like him to be full code and are not ready for hospice care
stop atarax and trazadone
sher was placed on admission; sher nv'ed, now voiding
resume Aldactone and Lasix 10/18
Acute hypoxic respiratory failure likely secondary to TME and possible aspiration event
resolved
Off of o2
End-stage liver disease, chronic liver failure
s/p para 10/12 and 10/16; no evidence of SBP. Albumin was given. Continue doxycycline prophylaxis per ID.
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 Patient will follow-up with scanning coordinator outpatient/Dr. Dan
throat pain
magic mouthwash
strep neg; check flu
- recent COVID 09/28/24
Hypotension 2/2 cirrhosis
albumin
now BP better
resume Aldactone and Lasix 10/18
right molar tooth pain
- Not sure if Dental Medicine will see in the hospital
- If does not, and is discharge should at least be on Augmentin with outpatient Dental Medicine follow up
pancytopenia likely secondary to cirrhosis
Monitor
Anemia of chronic anemia secondary to liver cirrhosis
Monitor hgb
Recurrent upper GI bleeding likely secondary to portal hypertensive gastropathy
h/o gastric varices s/p gastric artery coiling 09/2024
HCV s/p tx with Epclusa
Chronic pain
Essential hypertension
GERD: Cont PPI
h/o skin cancer s/p Mohs surgery
Anxiety
COPD: Cont Symbicort/Spiriva
Hx ascites r/t portal vein HTN from decompensated cirrhosis
History insomnia
On trazodone - stopped
Code Status: Full Code
DVT Px: SCDs
Anticipated Discharge: 24 - 48 hours
Subjective/Interval History
-
Date of Service: October 21, 2024
seen and examined
no new compalitns
continue to have mouth pain
-told him to drink hot tea with honey instead of eating candy
asking when he would see a dentist
-likely would happen as an outaptient
Objective Data
-
Labs:
Laboratory Results
10/21/24
08:37
WBC 5.0
Hgb 9.1 L
Hct 27.5 L
Plt Count 64 L D
PT 22.3 H
INR 1.94
Sodium 139
Potassium 3.8
Chloride 107
Carbon Dioxide 24
BUN 14
Creatinine 0.9
Glucose 114 H
Calcium 8.4
Total Bilirubin 3.4 H
AST 35
ALT 16
Alkaline Phosphatase 72
Vital Signs:
Vital Signs
Temp Pulse Resp BP Pulse Ox
98.5 F 84 17 110/55 98
10/21/24 07:19 10/21/24 07:19 10/21/24 07:19 10/21/24 07:19 10/21/24 11:12
I&O
10/20/24 10/21/24 10/22/24
06:59 06:59 06:59
Intake Total 1660 / 1660 1860 / 1860
Output Total 100 / 100
Balance 1660 / 1660 1760 / 1760
[2024-10-21 15:33] VITALS: BP 123/53
[2024-10-21] MEDS: INVANZ 60 MG IV (15:58)
--- NOTE | 2024-10-21 18:35 | PTCARENOTE ---
Pt received @ 15:00. Assisted in covering IV site to shower. Scheduled Ivanz and Laculose administered. Report given to oncoming shift.
[2024-10-21] MEDS: ULTRAM 50 MG PO (21:02)
[2024-10-21 23:55] VITALS: BP 120/61
[2024-10-22 05:30] VITALS: BMI 23.0
[2024-10-22] MEDS: MAGIC OR MIRACLE MOUTHWASH 5 ML PO ×2 (06:02→15:40)
--- NOTE | 2024-10-22 06:18 | W.PN.GI.CBS2 ---
Today's Communication / Plan
-
Repeat paracentesis with IR today. Please send cell count with diff to assess repeat PMNs. Diuretics remain on hold, can likely be resumed tomorrow if down-trending PMNs. Mentating appropriately without signs of recurrent HE. Rest of care as
outlined below.
Assessment / Plan
-
#SBP 2/2 #CNNA
#Decompensated HCV/EtOH Cirrhosis
#GV Bleeding (s/p GV coiling)
#Acute on Chronic GI Bleeding (2/2 PHG)
#Recurrent Ascites #Recurrent HE
#Hx of SBP
Mr Mazariegos is a 59 y.o male with a past medical history significant for decompensated cirrhosis (HCV/EtOH) with intractable ascites (requiring q weekly paracentesis), recurrent HE, GI bleeding by recurrent hospitalizations with HE secondary to
acute on chronic GI bleeding 2/2 PHG and bleeding IGV-1 (prior transfer to [place] for Ultrasound EGD/EUS s/p gastric coiling procedure), chronic HCV (s/p treatment with Epclusa s/p SVR), CVA, HTN, COPD, chronic thrombocytopenia and prior history of
SBP with E. coli ESBL blood/peritoneal fluid who initially presented on 10/11 for recurrent HE.
Of note, he recently f/u with Dr. Dan at [place] and outpatient evaluation was positive for PETH test and his UDS on admission was positive for opiates and cocaine. Previous etiology of prior HE and agitation felt to be related to medication with
recent Atarax and Trazadone use versus (+) UDS screen though patient continues to deny use. Now with recent fevers found to have SBP with PMNs 786 with recent peritoneal culture 10/19 (-), which seems most consistent with culture-negative
neutrocytic ascites (CNNA). No other concern for renal dysfunction or HRS. Started on IV albumin as per SBP protocol on day 1 and day 3. ID has also further been consulted to guide further management.
Recommendations:
- Repeat labs- trend daily MELD 3.0 labs with close monitoring of renal function given SBP
- Continue IV Ertapenem as per ID.
- Will need to be restarted on abx for 2' SBP ppx (previously on Doxy) after treatment of SBP
- S/p IV albumin as per SBP protocol (day 1/3) with stable renal function
- Monitor peritoneal and blood cultures from 10/19, currently NG x 48 hrs
- Plan for repeat paracentesis with IR today, 10/22, given SBP
- Please send repeat cell count w/ diff during repeat paracentesis to ensure down-trending PMN count given culture-negative neutrocytic ascites (CNNA) to assess response to therapy
- Continue to hold diuretics, if down-trending PMNs on repeat paracentesis can restart diuretics tomorrow 10/23
- Continue lactulose and Xifaxan for ongoing HE. Titrate lactulose to 2-3 BMs q daily
- Given that patient is not an OLT candidate, overall prognosis remains poor. Recommend Palliative care consult to assist in further GOC discussions
- Strict avoidance of all NSAIDs while inpatient and avoidance of opioids
- Ensure 2 gm Na+ restricted diet
- Rest of care as outlined below
GI team will continue to follow while inpatient. Please call with any questions or concerns.
Subjective
Subjective
Date of Service: October 22, 2024
- Remains on IV Ertapenem, blood and peritoneal fluid cultures 10/19 remain NG x 48 hrs
- No acute events overnight, remains afebrile
Feeling well, resting comfortably in bed without any abdominal pain or discomfort. Mentating appropriately and conversant. Denies any further fevers, chills or other constitutional symptoms. Discussed plan for repeat paracentesis today with IR.
Objective
Data Reviewed
Laboratory Data:
Laboratory Results
10/21/24 08:37
10/21/24 08:37
Laboratory Results
PT 22.3 Sec (11.4-14.6) H 10/21/24 08:37
INR 1.94 10/21/24 08:37
APTT 44.4 Sec (23.4-35.0) H 10/11/24 16:00
Magnesium 1.6 mg/dl (1.6-2.3) 10/11/24 16:00
Total Bilirubin 3.4 mg/dl (0.2-1.3) H 10/21/24 08:37
AST 35 U/L (17-59) 10/21/24 08:37
ALT 16 U/L (0-50) 10/21/24 08:37
Alkaline Phosphatase 72 U/L (38-126) 10/21/24 08:37
Vital Signs and I&O:
Vital Signs
Temp Pulse Resp BP Pulse Ox
98.5 F 84 18 120/61 98
10/21/24 23:55 10/21/24 23:55 10/21/24 23:55 10/21/24 23:55 10/21/24 23:55
I&O
10/20/24 10/21/24 10/22/24
06:59 06:59 06:59
Intake Total 1660 / 1660 1860 / 1860 1380 / 1380
Output Total 100 / 100
Balance 1660 / 1660 1760 / 1760 1380 / 1380
Physical Exam
Physical Exam
HEENT: Anicteric and Moist mucous membranes
Cardiology: Normal Sinus Rhythm
Pulmonary: Other (Normal WOB on room air)
GI: Soft, Distended and Non Tender
Extremities: No Edema
Neuro: Other (AAOx3; no asterixis)
[2024-10-22 06:53] LABS: % Basophils 0.9 % (0-2); % Immature Granulocytes 0.6 % (0-0.5); % Lymphocytes 20.6 % (20.5-51.1); % Monocytes 7.8 % (1.7-9.3); % Neutrophils 61.1 % (42.2-75.2); Absolute Eosinophils 0.3 10^3/uL (0-0.7); Absolute Lymphocytes 0.7 10^3/uL (1.2-3.4); Absolute Monocytes 0.3 10^3/uL (0.1-0.6); Hematocrit 23.2 % (39.0-52.0); Hemoglobin 7.5 g/dL (13.0-18.0); Mean Corp Hgb Conc. 32.3 g/dL (33.0-37.0); Mean Corpuscular Hgb 31.9 pg (27.0-31.0); Mean Corpuscular Volume 98.7 fL (80.0-94.0); Mean Platelet Volume 10.1 fL (7.4-10.4); Nucleated Red Blood Cells % 0 % (-); Platelet Count 60 10^3/uL (130-400); Red Blood Cell Count 2.35 10^6/uL (4.70-6.10); White Blood Cell Count 3.2 10^3/uL (4.8-10.8)
[2024-10-22 06:55] LABS: INR 1.95; PT 22.3 Sec (11.4-14.6)
[2024-10-22 06:59] LABS: ALT (SGPT) 16 U/L (0-50); AST (SGOT) 34 U/L (17-59); Albumin 2.8 g/dl (3.5-5.0); Alkaline Phosphatase 78 U/L (38-126); Blood Urea Nitrogen 12 mg/dl (9-20); Carbon Dioxide 23 mmol/L (22-30); Chloride 109 mmol/L (98-107); Estimated Creatinine Clearance 102 ml/min; Glucose 114 mg/dl (70-99); Potassium 3.8 mmol/L (3.5-5.1); Sodium 138 mmol/L (135-145); Total Bilirubin 2.8 mg/dl (0.2-1.3); Total Protein 4.9 g/dl (6.3-8.2); eGFR > 60.00
[2024-10-22 07:21] VITALS: BP 108/55
[2024-10-22] MEDS: ULTRAM 50 MG PO ×2 (07:30→20:36)
[2024-10-22] MEDS: XIFAXAN 550 MG PO ×2 (07:42→20:35)
[2024-10-22] MEDS: NICODERM TRANSDERMAL 7 MG TRANSDERM (07:42)
[2024-10-22] MEDS: PROTONIX 40 MG PO ×2 (07:42→20:35)
[2024-10-22] MEDS: FEOSOL 325 MG PO (07:42)
[2024-10-22] MEDS: FOLVITE 1 MG PO (07:42)
[2024-10-22] MEDS: VITAMIN B1 100 MG PO (07:42)
[2024-10-22] MEDS: DUPHALAC/CHRONULAC 20 GRAMS PO ×2 (07:42→15:38)
[2024-10-22] MEDS: MAGNESIUM OXIDE 500 MG PO ×2 (07:42→20:35)
[2024-10-22] MEDS: DESENEX/MITRAZOL/ZEASORB 1 APPLIC TOPICAL ×2 (07:43→20:35)
[2024-10-22] MEDS: PREPARATION H OINTMENT RECTAL (07:44)
[2024-10-22 08:04] VITALS: BP 137/62; BP_SYST 84
[2024-10-22 08:53] VITALS: BP 121/57; BP_SYST 81
[2024-10-22 08:56] VITALS: BP 121/57
[2024-10-22 09:45] LABS: Body Fluid Albumin < 1.0 g/dl; Body Fluid Protein < 2.0 g/dl
[2024-10-22 10:13] LABS: Body Fluid Mononuclear 64.8 %; Body Fluid Polymorphonuclear 35.2 %; Body Fluid WBC 255 /CUMM
[2024-10-22 10:18] LABS: Body Fluid Second Tech CMB
--- NOTE | 2024-10-22 12:55 | W.PN.HOSP.TC ---
Today's Communication/Plan
-
For para today
COntinue antibiotics
FOllow up on ID atb recs
-Big question will be what is the chronic atbs for home use
Assessment / Plan
Assessment / Plan
General: Well Developed,no distress
HEENT: NormoCephalic, Moist mucous membranes, Atraumatic
-No pharyngeal erythema/cobblestoning noted, right lower tooth cracked and decaying
Respiratory: Clear, Wheezes and Non Labored Respirations
Cardiac: S1/S2 and Regular Rhythm
GI: Soft, Normal Bowel Sounds and distended from ascites
Genito-urinary: Sher
Musculoskeletal: No Edema
Neuro: Awake, alert and oriented
Psych:calm
Assessment:
Sepsis secondary to SBP less likely dental caries/tooth infection/abscess
-Hx of Ecoli SBP
-Started on IV ertapenem which also has anaerobic coverage
-Providing albumin
-ID and GI following
-IR consult for repeat para this AM
Agitation, hallucination could likely be multifactorial secondary to TME,medication use, +/- cocaine use
per spouse patient is currently not using any drugs; could be false +. patient denies any cocaine use
mental status improved; psych following. Still has periods of paranoia at times which could be related to hepatic encephalopathy,
Acute on Chronic Hepatic encephalopathy
UDS positive for opioids, cocaine. did got morphine a day prior in ED
psych following; on Risperdal and Ativan
now off Precedex; monitor
Unclear when his last alcohol use was
Does have history of advanced liver disease and hepatic encephalopathy
Continue with lactulose and rifaximin
fever overnight 10/14 and 10/17; monitor as no new symptoms. Prior workup negative.
Antibiotic discontinued by ID, monitor.
Overall prognosis is very poor but patient's and family would like him to be full code and are not ready for hospice care
stop atarax and trazadone
sher was placed on admission; sher dc'ed, now voiding
resume Aldactone and Lasix 10/18
Acute hypoxic respiratory failure likely secondary to TME and possible aspiration event
resolved
Off of o2
End-stage liver disease, chronic liver failure
s/p para 10/12 and 10/16; no evidence of SBP. Albumin was given. Continue doxycycline prophylaxis per ID.
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 Patient will follow-up with brand coordinator outpatient/Dr. Dan
throat pain
magic mouthwash
strep neg; check flu
- recent COVID 09/28/24
Hypotension 2/2 cirrhosis
albumin
now BP better
resume Aldactone and Lasix 10/18
right molar tooth pain
- Not sure if Dental Medicine will see in the hospital
- If does not, and is discharge should at least be on Augmentin with outpatient Dental Medicine follow up
pancytopenia likely secondary to cirrhosis
Monitor
Anemia of chronic anemia secondary to liver cirrhosis
Monitor hgb
Recurrent upper GI bleeding likely secondary to portal hypertensive gastropathy
h/o gastric varices s/p gastric artery coiling 09/2024
HCV s/p tx with Epclusa
Chronic pain
Essential hypertension
GERD: Cont PPI
h/o skin cancer s/p Mohs surgery
Anxiety
COPD: Cont Symbicort/Spiriva
Hx ascites r/t portal vein HTN from decompensated cirrhosis
History insomnia
On trazodone - stopped
Code Status: Full Code
DVT Px: SCDs
Anticipated Discharge: > 48 hours
Subjective/Interval History
-
Date of Service: October 22, 2024
seen and examined
states made a psych eval with his hepatologgist office to prove he want to be a transplant candidate
no new compalints.
no acute ovenright events
Objective Data
-
Labs:
Laboratory Results
10/22/24
06:30
WBC 3.2 L
Hgb 7.5 L
Hct 23.2 L
Plt Count 60 L
PT 22.3 H
INR 1.95
Sodium 138
Potassium 3.8
Chloride 109 H
Carbon Dioxide 23
BUN 12
Creatinine 0.8
Glucose 114 H
Calcium 8.0 L
Total Bilirubin 2.8 H
AST 34
ALT 16
Alkaline Phosphatase 78
Vital Signs:
Vital Signs
Temp Pulse Resp BP Pulse Ox
98.2 F 81 15 121/57 98
10/22/24 08:04 10/22/24 08:56 10/22/24 08:56 10/22/24 08:56 10/22/24 08:53
I&O
10/21/24 10/22/24 10/23/24
06:59 06:59 06:59
Intake Total 1860 / 1860 1380 / 1380
Output Total 100 / 100
Balance 1760 / 1760 1380 / 1380
--- NOTE | 2024-10-22 14:45 | W.PN.ID1 ---
Date of Service
Date of Service: October 22, 2024
Today's Communication
Continue ertapenem for today.
Assessment / Plan
SBP
New Fever- now resolved
Advanced / End-stage Cirrhosis
Recent hx ESBL SBP and bacteremia
Hx Upper GI bleed
COPD
Hx Recurrent SBP
Hepatic encephalopathy
Hx of CVA
Recommendations:
10/19 paracentesis 4.8L ascites -> 1157 WBC, 68%PMN, cx neg
Repeat paracentesis shows improvement.
Continue Ertapenem (d#4) to complete a 5 to 7-day course.
Hold prophylactic doxycycline while on Ertapenem.
Follow clinically.
����������������������������������������������������������
Chief Complaint
-: Fever and Other (Suspected SBP)
Subjective / Review of Systems
Review of Systems: No Fever, No Chills and No Abdominal Pain
Vital Signs / Physical Exam
Vital Signs
Vital Signs
Temp Pulse Resp BP Pulse Ox
98.2 F 81 15 121/57 98
10/22/24 08:04 10/22/24 08:56 10/22/24 08:56 10/22/24 08:56 10/22/24 08:53
Physical Exam
Constitutional: No Acute Distress and Comfortable
Cardiovascular: Regular Rate and S1/S2
Pulmonary: Clear
Gastrointestinal: Soft, Non Tender and Distended (moderate)
Extremities: Edema
Neurological: AO x 3
Objective Data
Lab Data
Lab Results
10/22/24 06:30
10/22/24 06:30
PT 22.3 Sec (11.4-14.6) H 10/22/24 06:30
INR 1.95 10/22/24 06:30
APTT 44.4 Sec (23.4-35.0) H 10/11/24 16:00
Estimated Creat Clear 102 ml/min 10/22/24 06:30
Lactic Acid 1.2 mmol/L (0.7-2.0) 10/13/24 09:58
Total Bilirubin 2.8 mg/dl (0.2-1.3) H 10/22/24 06:30
AST 34 U/L (17-59) 10/22/24 06:30
ALT 16 U/L (0-50) 10/22/24 06:30
Alkaline Phosphatase 78 U/L (38-126) 10/22/24 06:30
Most recent labs reviewed.
Micro Results:
10/22/24 08:50 Body Fluid Culture - Pending
Peritoneal Fluid Gram Stain - Preliminary
10/19/24 11:29 Body Fluid Culture - Final
Peritoneal Fluid No Growth After 72 Hours
Gram Stain - Final
10/19/24 08:24 Blood Culture - Preliminary
Blood/Venous No Growth in 72 hours- Final report to follow
10/19/24 09:15 Influenza Types A & B (FRACISCO) - Final
Nasal Swab Negative for Influenza A & B, NAAT
Negative results must be combined with clinical observations
and patient history.
Nucleic Acid Amplification test (NAAT)performed on the
[employer] ID NOW platform.
10/16/24 13:53 Body Fluid Culture - Final
Peritoneal Fluid No Growth After 72 Hours
Gram Stain - Final
10/18/24 10:04 Influenza Types A & B (FRACISCO) - Final
Nasal Swab Negative for Influenza A & B, NAAT
Negative results must be combined with clinical observations
and patient history.
Nucleic Acid Amplification test (NAAT)performed on the
[employer] NOW platform.
10/15/24 20:02 Streptococcus Screen (LOVE) - Final
Throat/Pharynx No Beta Hemolytic Streptococci Isolated
Streptococcus Rapid Screen - Final
Rapid Strep Screen (Group A) Negative
10/15/24 20:02 Throat Culture - Final
Throat/Pharynx Usual Respiratory Marisela
10/11/24 16:00 Blood Culture - Final
Blood/Venous No Growth - Final Report
10/11/24 16:00 Blood Culture - Final
Blood/Venous No Growth - Final Report
10/12/24 09:12 Body Fluid Culture - Final
Peritoneal Fluid No Growth After 72 Hours
Gram Stain - Final
10/11/24 16:00 Urine Culture - Final
Urine NO GROWTH
Imaging:
09/26/2024 CT abdomen/pelvis with IV contrast: There is mild wall thickening of the distal esophagus suggesting esophagitis. Subtle liver surface nodularity consistent with history of cirrhosis. There is evidence of portal hypertension with
splenomegaly and extensive portosystemic venous collaterals. Mild ascites is noted. Minor diverticulosis without acute diverticulitis. A nonobstructing 8 mm left ureteropelvic junction calculus is noted and similar to prior examinations. Please
see full dictation for additional detail. Film personally viewed.
[2024-10-22] MEDS: INVANZ 60 MG IV (15:38)
--- NOTE | 2024-10-22 15:38 | CM ---
Patient seen at bedside.
Hgb 7.5 today
Paracentesis today
Continue ertapenem
PLAN: SNF, will need to re-obtain insurance authorization
[2024-10-22 15:40] VITALS: BP 110/57
[2024-10-22] MEDS: PREPARATION H OINTMENT 1 APPLIC RECTAL (20:35)
[2024-10-22] MEDS: DUPHALAC/CHRONULAC PO (21:43)
[2024-10-22 23:40] VITALS: BP 129/60
--- NOTE | 2024-10-23 05:36 | W.PN.GI.CBS2 ---
Today's Communication / Plan
-
Improving PMNs on repeat paracentesis and responding to IV Ertapenem. Cultures remain negative, consistent with recurrent CNNA/SBP. Defer antibiotic management to ID. May resume diuretics at time of discharge given stable renal function. Discussed
importance of close outpatient f/u with Dr. Dan to consider repeat PETH testing as outpatient. Rest of care as outlined below. GI team will sign-off, please call back with any questions or concerns.
Assessment / Plan
-
#SBP 2/2 #CNNA
#Decompensated HCV/EtOH Cirrhosis
#GV Bleeding (s/p GV coiling)
#Acute on Chronic GI Bleeding (2/2 PHG)
#Recurrent Ascites #Recurrent HE
#Hx of SBP
Mr Mazariegos is a 59 y.o male with a past medical history significant for decompensated cirrhosis (HCV/EtOH) with intractable ascites (requiring q weekly paracentesis), recurrent HE, GI bleeding by recurrent hospitalizations with HE secondary to
acute on chronic GI bleeding 2/2 PHG and bleeding IGV-1 (prior transfer to [place] for Ultrasound EGD/EUS s/p gastric coiling procedure), chronic HCV (s/p treatment with Epclusa s/p SVR), CVA, HTN, COPD, chronic thrombocytopenia and prior history of
SBP with E. coli ESBL blood/peritoneal fluid who initially presented on 10/11 for recurrent HE.
Of note, he recently f/u with Dr. Dan at [place] and outpatient evaluation was positive for PETH test and his UDS on admission was positive for opiates and cocaine. Previous etiology of prior HE and agitation felt to be related to medication with
recent Atarax and Trazadone use versus (+) UDS screen though patient continues to deny use. Now with recent fevers found to have SBP with PMNs 786 with recent peritoneal culture 10/19 (-), which seems most consistent with culture-negative
neutrocytic ascites (CNNA). No other concern for renal dysfunction or HRS. Started on IV albumin as per SBP protocol on day 1 and day 3. ID has also further been consulted to guide further management.
S/p IR paracentesis 10/22 with (-) 3.65 L removed, with 89 PMNs. Remains on IV ertapenem per ID, cultures remain NGTD
Recommendations:
- Trend daily MELD labs while inpatient- CMP, CBC and INR
- Continue IV Ertapenem as per ID regarding duration of treatment and should be restarted on abx for secondary ppx given his recurrent SBP (2/2 CNNA) after completion of antibiotic therapy for culture-negative neutrocytic ascites (CNNA)
- No signs of renal dysfunction, s/p IV albumin challenge per SBP protocol without concern for HRS
- Given improving / down-trending PMNs on repeat paracentesis, may resume patient's home diuretics at discharge
- Continue lactulose and Xifaxan for ongoing HE. Titrate lactulose to 2-3 BMs q daily
- Given that patient is not an OLT candidate, overall prognosis remains poor. Recommend Palliative care consult to assist in further GOC discussions if patient is agreeable
- Consider OP dental eval given concern for tooth issue/ache noted during admission
- Strict avoidance of all NSAIDs while inpatient and avoidance of opioids
- Reinforced strict alcohol abstinence and avoiding drugs and polypharmacy use again this AM
- Outpatient f/u with both Dr. Dan for consideration of repeat PETH testing along with Dr. Weaver at GI
- Rest of care as outlined below
Discussed with primary internal medicine team this AM. GI team will sign-off. Please call back with any questions or concerns.
Subjective
Subjective
Date of Service: October 23, 2024
- S/p IR paracentesis 10/22 with (-) 3.65 L removed, with 89 PMNs
- Remains on IV ertapenem per ID, cultures remain NGTD
- Otherwise, no acute events overnight
Feeling well, denies any fevers, chills, night sweats or other constitutional symptoms. Hoping to go back to rehab. Otherwise, continues to deny any abdominal pain or discomfort after recent paracentesis.
Objective
Data Reviewed
Laboratory Data:
Laboratory Results
10/22/24 06:30
10/22/24 06:30
Laboratory Results
PT 22.3 Sec (11.4-14.6) H 10/22/24 06:30
INR 1.95 10/22/24 06:30
APTT 44.4 Sec (23.4-35.0) H 10/11/24 16:00
Magnesium 1.6 mg/dl (1.6-2.3) 10/11/24 16:00
Total Bilirubin 2.8 mg/dl (0.2-1.3) H 10/22/24 06:30
AST 34 U/L (17-59) 10/22/24 06:30
ALT 16 U/L (0-50) 10/22/24 06:30
Alkaline Phosphatase 78 U/L (38-126) 10/22/24 06:30
Vital Signs and I&O:
Vital Signs
Temp Pulse Resp BP Pulse Ox
100.0 F 97 18 129/60 97
10/22/24 23:40 10/22/24 23:40 10/22/24 23:40 10/22/24 23:40 10/22/24 23:40
I&O
10/21/24 10/22/24 10/23/24
06:59 06:59 06:59
Intake Total 1860 / 1860 1380 / 1380 1140 / 1140
Output Total 100 / 100
Balance 1760 / 1760 1380 / 1380 1140 / 1140
Physical Exam
Physical Exam
HEENT: Anicteric and Moist mucous membranes
Pulmonary: Other (Normal WOB on room air)
GI: Soft, Non Distended and Non Tender
Extremities: No Edema
Neuro: Non Focal and Other (AAOx3; no asterixis)
[2024-10-23 06:00] VITALS: BMI 22.3
[2024-10-23 07:15] VITALS: BP 115/57
[2024-10-23] MEDS: MAGIC OR MIRACLE MOUTHWASH 5 ML PO ×2 (08:00→14:06)
[2024-10-23] MEDS: FEOSOL 325 MG PO (08:00)
[2024-10-23] MEDS: VITAMIN B1 100 MG PO (08:00)
[2024-10-23] MEDS: DUPHALAC/CHRONULAC 20 GRAMS PO ×2 (08:00→15:02)
[2024-10-23] MEDS: XIFAXAN 550 MG PO (08:00)
[2024-10-23] MEDS: PROTONIX 40 MG PO (08:00)
[2024-10-23] MEDS: MAGNESIUM OXIDE 500 MG PO (08:00)
[2024-10-23] MEDS: NICODERM TRANSDERMAL 7 MG TRANSDERM (08:01)
[2024-10-23] MEDS: FOLVITE 1 MG PO (08:04)
[2024-10-23] MEDS: PREPARATION H OINTMENT 1 APPLIC RECTAL (08:26)
[2024-10-23] MEDS: DESENEX/MITRAZOL/ZEASORB 1 APPLIC TOPICAL (08:26)
[2024-10-23] MEDS: ULTRAM 50 MG PO (08:28)
--- NOTE | 2024-10-23 09:06 | PN.CDI ---
CDI
- -
CDI:
Physician Documentation Request
Admit Date: 10/11/24 19:11
Dear Doctor García,
Please review the following and provide your response in the progress notes.
Clinical Indicators:
Pt admitted with toxic metabolic encephalopathy and liver disease.
10/20 Progress note:' Sepsis secondary to SBP less likely dental caries/tooth infection/abscess-Hx of Ecoli SBP-Started on IV ertapenem..'
Selected Entries
10/11/24
13:20 10/12/24
10:30 10/12/24
12:15
Temp 98.6 F
Pulse 62 93 104
10/13/24
15:35 10/13/24
19:00 10/14/24
05:00
Temp 92.5 F L 95.5 F L
Pulse 101
10/14/24
23:42
Temp 100.6 F H
Pulse
Laboratory Tests
10/11/24 10/13/24 10/15/24
16:00 03:58 09:03
WBC 3.4 L 2.6 L 3.1 L
Please clarify the following:
Sepsis was present on admission
Sepsis was not present on admission
Other
Use of terms such as suspected, likely, concern for, or probable (associated with a specific diagnosis that is being evaluated, monitored, or treated as if it exists) are acceptable and can be coded in the inpatient setting, when documented at the
time of discharge.
Thank you,
Tere Abebe RN, BSN
CDI Specialist
Available via [place] [employer]
Please use your independent medical judgment in providing your response.
--- NOTE | 2024-10-23 09:38 | VNURNOTE ---
Received updates from LEXY Gaspar. Home Health Liaison spoke with patient's spouse to discuss [facility] nurse/therapy, visits, schedule and homebound status. She is agreeable and understands that visits at home will be 2-3 x per week to assess and teach
medical management. Patient has had [facility] in the past. Spouse is aware that [facility] will contact them for start of care in 1-2 days after discharge from .
[facility] referral completed in [facility].
--- NOTE | 2024-10-23 12:54 | CM ---
Addendum entered by Kelsie Shen 10/23/24 15:33:
Discharge home today with [facility]
or daughter to transport home
IMM n/a
Original Note:
Spoke with patient regarding PT rec
does not meet criteria for SNF
Interested in HH-has had [facility] in past
Referral to [facility] placed in [facility]
Cont with IV Ertapenem
PLAN: Home, with [facility]
--- NOTE | 2024-10-23 13:41 | W.PN.HOSP.TC ---
Today's Communication/Plan
-
final ID recs
Assessment / Plan
Assessment / Plan
General: Well Developed,no distress
HEENT: NormoCephalic, Moist mucous membranes, Atraumatic
-No pharyngeal erythema/cobblestoning noted, right lower tooth cracked and decaying
Respiratory: Clear, Wheezes and Non Labored Respirations
Cardiac: S1/S2 and Regular Rhythm
GI: Soft, Normal Bowel Sounds
Genito-urinary: Sher
Musculoskeletal: No Edema
Neuro: Awake, alert and oriented
Psych:calm
Assessment:
Sepsis secondary to SBP less likely dental caries/tooth infection/abscess
-Hx of Ecoli SBP
-Started on IV ertapenem which also has anaerobic coverage
-Providing albumin
-ID and GI following
-Repeat para, improved pmns
-Will discuss with ID about duration of ertapenem and antiobiotic he will need chronically
Agitation, hallucination could likely be multifactorial secondary to TME,medication use, +/- cocaine use
per spouse patient is currently not using any drugs; could be false +. patient denies any cocaine use
mental status improved; psych following. Still has periods of paranoia at times which could be related to hepatic encephalopathy,
Acute on Chronic Hepatic encephalopathy
UDS positive for opioids, cocaine. did got morphine a day prior in ED
psych following; on Risperdal and Ativan
now off Precedex; monitor
Unclear when his last alcohol use was
Does have history of advanced liver disease and hepatic encephalopathy
Continue with lactulose and rifaximin
fever overnight 10/14 and 10/17; monitor as no new symptoms. Prior workup negative.
Antibiotic discontinued by ID, monitor.
Overall prognosis is very poor but patient's and family would like him to be full code and are not ready for hospice care
stop atarax and trazadone
sher was placed on admission; sher pa'ed, now voiding
resume Aldactone and Lasix 10/18
Acute hypoxic respiratory failure likely secondary to TME and possible aspiration event
resolved
Off of o2
End-stage liver disease, chronic liver failure
s/p para 10/12 and 10/16; no evidence of SBP. Albumin was given. Continue doxycycline prophylaxis per ID.
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 Patient will follow-up with programming coordinator outpatient/Dr. Dan
throat pain
magic mouthwash
strep neg; check flu
- recent COVID 09/28/24
Hypotension 2/2 cirrhosis
albumin
now BP better
resume Aldactone and Lasix 10/18
right molar tooth pain
- Not sure if Dental Medicine will see in the hospital
- If does not, and is discharge should at least be on Augmentin with outpatient Dental Medicine follow up
pancytopenia likely secondary to cirrhosis
Monitor
Anemia of chronic anemia secondary to liver cirrhosis
Monitor hgb
Recurrent upper GI bleeding likely secondary to portal hypertensive gastropathy
h/o gastric varices s/p gastric artery coiling 09/2024
HCV s/p tx with Epclusa
Chronic pain
Essential hypertension
GERD: Cont PPI
h/o skin cancer s/p Mohs surgery
Anxiety
COPD: Cont Symbicort/Spiriva
Hx ascites r/t portal vein HTN from decompensated cirrhosis
History insomnia
On trazodone - stopped
Code Status: Full Code
DVT Px: SCDs
Anticipated Discharge: Within 24 hours
Subjective/Interval History
-
Date of Service: October 23, 2024
seen and examined
no new compalints
no acute overnight events
Objective Data
-
Vital Signs:
Vital Signs
Temp Pulse Resp BP Pulse Ox
98.2 F 83 17 115/57 94
10/23/24 07:15 10/23/24 07:15 10/23/24 07:15 10/23/24 07:15 10/23/24 11:51
I&O
10/22/24 10/23/24 10/24/24
06:59 06:59 06:59
Intake Total 1380 / 1380 2220 / 2220
Balance 1380 / 1380 2220 / 2220
--- NOTE | 2024-10-23 14:17 | W.PN.ID1 ---
Date of Service
Date of Service: October 23, 2024
Today's Communication
Discontinue further ertapenem and transition back to doxycycline.
Assessment / Plan
SBP
New Fever- now resolved
Advanced / End-stage Cirrhosis
Recent hx ESBL SBP and bacteremia
Hx Upper GI bleed
COPD
Hx Recurrent SBP
Hepatic encephalopathy
Hx of CVA
Recommendations:
10/19 paracentesis 4.8L ascites -> 1157 WBC, 68%PMN, cx neg
Repeat paracentesis shows resolution. Cultures negative.
Currently on ertapenem (d#5).
Discontinue further ertapenem; transition back to prophylactic doxycycline.
����������������������������������������������������������
Chief Complaint
-: Fever and Other (Suspected SBP)
Subjective / Review of Systems
Review of Systems: No Fever, No Chills and No Abdominal Pain
Vital Signs / Physical Exam
Vital Signs
Vital Signs
Temp Pulse Resp BP Pulse Ox
98.2 F 83 17 115/57 94
10/23/24 07:15 10/23/24 07:15 10/23/24 07:15 10/23/24 07:15 10/23/24 11:51
Physical Exam
Constitutional: No Acute Distress, Comfortable and Non-toxic
Eyes: Sclera Anicteric
Pulmonary: Non Labored
Gastrointestinal: Distended
Neurological: AO x 3
Psychological: Calm
Objective Data
Lab Data
Lab Results
10/22/24 06:30
10/22/24 06:30
PT 22.3 Sec (11.4-14.6) H 10/22/24 06:30
INR 1.95 10/22/24 06:30
APTT 44.4 Sec (23.4-35.0) H 10/11/24 16:00
Estimated Creat Clear 102 ml/min 10/22/24 06:30
Lactic Acid 1.2 mmol/L (0.7-2.0) 10/13/24 09:58
Total Bilirubin 2.8 mg/dl (0.2-1.3) H 10/22/24 06:30
AST 34 U/L (17-59) 10/22/24 06:30
ALT 16 U/L (0-50) 10/22/24 06:30
Alkaline Phosphatase 78 U/L (38-126) 10/22/24 06:30
Most recent labs reviewed.
Micro Results:
10/22/24 08:50 Body Fluid Culture - Preliminary
Peritoneal Fluid No Growth After 18-24 Hours
Gram Stain - Preliminary
10/19/24 08:24 Blood Culture - Preliminary
Blood/Venous No Growth in 4 days- Final report to follow
10/19/24 11:29 Body Fluid Culture - Final
Peritoneal Fluid No Growth After 72 Hours
Gram Stain - Final
10/19/24 09:15 Influenza Types A & B (FRACISCO) - Final
Nasal Swab Negative for Influenza A & B, NAAT
Negative results must be combined with clinical observations
and patient history.
Nucleic Acid Amplification test (NAAT)performed on the
[employer] ID NOW platform.
10/16/24 13:53 Body Fluid Culture - Final
Peritoneal Fluid No Growth After 72 Hours
Gram Stain - Final
10/18/24 10:04 Influenza Types A & B (FRACISCO) - Final
Nasal Swab Negative for Influenza A & B, NAAT
Negative results must be combined with clinical observations
and patient history.
Nucleic Acid Amplification test (NAAT)performed on the
[employer] ID NOW platform.
10/15/24 20:02 Streptococcus Screen (LOVE) - Final
Throat/Pharynx No Beta Hemolytic Streptococci Isolated
Streptococcus Rapid Screen - Final
Rapid Strep Screen (Group A) Negative
10/15/24 20:02 Throat Culture - Final
Throat/Pharynx Usual Respiratory Marisela
10/11/24 16:00 Blood Culture - Final
Blood/Venous No Growth - Final Report
10/11/24 16:00 Blood Culture - Final
Blood/Venous No Growth - Final Report
10/12/24 09:12 Body Fluid Culture - Final
Peritoneal Fluid No Growth After 72 Hours
Gram Stain - Final
10/11/24 16:00 Urine Culture - Final
Urine NO GROWTH
Imaging:
09/26/2024 CT abdomen/pelvis with IV contrast: There is mild wall thickening of the distal esophagus suggesting esophagitis. Subtle liver surface nodularity consistent with history of cirrhosis. There is evidence of portal hypertension with
splenomegaly and extensive portosystemic venous collaterals. Mild ascites is noted. Minor diverticulosis without acute diverticulitis. A nonobstructing 8 mm left ureteropelvic junction calculus is noted and similar to prior examinations. Please
see full dictation for additional detail. Film personally viewed.
Care Review
Plan reviewed with: Physician (Hospitalist)
[2024-10-23 15:00] VITALS: BP 119/56
[2024-10-23] MEDS: INVANZ 60 MG IV (15:02)
--- NOTE | 2024-10-23 15:23 | W.DCSUMMARY ---
Discharge Summary
Discharge Data
Date of Admission: 10/11/24
Date of Discharge: 10/23/24
-
Pending Results: No
Hospital Course
59-year-old male with past medical history significant for anxiety, portal cirrhosis, thrombocytopenia, hypertension, hepatitis C, COPD, alcohol abuse, ascites, and alcohol cirrhosis
Presented with agitation hallucinations believed secondary to medication use and liver disease. This improved with lactulose administration. He had acute hypoxemic respiratory failure which was likely believed to be secondary to aspiration
pneumonitis for which we were able to wean supplemental oxygen. Also complained of mild pain was found to have a right molar necrotic tooth. Discussed with oral maxillofacial surgery recommended outpatient dental medicine follow-up for extraction
and root canal. Noted to have fevers with worsening abdominal distention after multiple paracentesis. Therefore repeat paracentesis was completed that demonstrated findings concerning for spontaneous bacterial peritonitis related to liver disease.
Started on IV or ertapenem as there was ESBL hip history. Infectious diseases was consulted. Doxycycline was placed on hold. Completed IV ertapenem treatment per ID recommendations. And recommended to continue to take doxycycline chronically.
Will need to follow-up with outpatient hepatology for continued liver transplant evaluation. There was concern for cocaine in urine drug screen. Noted to have a psychiatric evaluation with outpatient [facility] admin for continued liver transplant
evaluation.
Head CT
IMPRESSION: No acute intracranial pathology.
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 Stable. Sequela of previous trauma cannot be excluded.
Mild nonacute sinusitis. Progressed.
CXR
IMPRESSION:
No active cardiopulmonary disease.
Abd Ultrasound
IMPRESSION:
MODERATE ASCITES which appears similar in volume to 08/18/2024.
Dental Xray
IMPRESSION:
1. No radiographic evidence for dental abscess or acute osteomyelitis.
2. Near complete absence of the crown of the right 1st mandibular molar suggesting a large dental cavity.
3. Previous bilateral root canals of the 1st mandibular molars.
Discharge Plan
-
Patient Disposition: Fpc/SNF
Discharge Diagnosis/Procedures: Agitation, hallucination could likely be multifactorial secondary to TME, medication use, liver disease
Acute on Chronic Hepatic encephalopathy
Acute hypoxic respiratory failure likely secondary to TME and possible aspiration pneumonitis
Right molar necrotic tooth
Hypotension 2/2 cirrhosis
Pancytopenia secondary to cirrhosis
Anemia chronic disease
Condition: Fair
Diet: 2 Gram Sodium and Restrict fluids to 64 oz
Activity: As tolerated
Driving Restrictions: Not until seen by your Dr
Blood Work: repeat chemistry, INR, LFT and CBC on 11/01
Wound Care: dental eval with complaint of dental pain and noted mouth bleeding on admission
Activity Restrictions/Additional Instructions:
Presented with agitation hallucinations believed secondary to medication use and liver disease. This improved with lactulose administration. He had acute hypoxemic respiratory failure which was likely believed to be secondary to aspiration
pneumonitis for which we were able to wean supplemental oxygen. Also complained of mild pain was found to have a right molar necrotic tooth. Discussed with oral maxillofacial surgery recommended outpatient dental medicine follow-up for extraction
and root canal. Noted to have fevers with worsening abdominal distention after multiple paracentesis. Therefore repeat paracentesis was completed that demonstrated findings concerning for spontaneous bacterial peritonitis related to liver disease.
Started on IV or ertapenem as there was ESBL hip history. Infectious diseases was consulted. Doxycycline was placed on hold. Completed IV ertapenem treatment per ID recommendations. And recommended to continue to take doxycycline chronically.
Will need to follow-up with outpatient hepatology for continued liver transplant evaluation. There was concern for cocaine in urine drug screen. Noted to have a psychiatric evaluation with outpatient [facility] admin for continued liver transplant
evaluation.
Head CT
IMPRESSION: No acute intracranial pathology.
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 Stable. Sequela of previous trauma cannot be excluded.
Mild nonacute sinusitis. Progressed.
CXR
IMPRESSION:
No active cardiopulmonary disease.
Abd Ultrasound
IMPRESSION:
MODERATE ASCITES which appears similar in volume to 08/18/2024.
Dental Xray
IMPRESSION:
1. No radiographic evidence for dental abscess or acute osteomyelitis.
2. Near complete absence of the crown of the right 1st mandibular molar suggesting a large dental cavity.
3. Previous bilateral root canals of the 1st mandibular molars.
Referrals:
Casimiro Lala MD [Active] - in three to four weeks
Jennifer Weaver MD [Active] - (call for 3-4 week follow up )
Salina Garcia DMD [Active] - in less than 1 week
Ebenezer Dan MD [Non-Admitting Privileges] - (call to review next step with patient information coordinator Roz with Dr. Dan [phone] )
Roger Bailon DO [Active] -
UNKNOWN - PT NOT,INTERVIEWE [Unknown Provider] -
Prescriptions:
New
folic acid 1 mg Tablet
1 mg PO DAILY Qty: 30 0RF
nicotine 7 mg/24 hr Patch 24 Hour
7 mg transdermal DAILY Qty: 14 0RF
Continued
thiamine HCl (vitamin B1) 100 mg tablet
100 mg PO DAILY
Breztri Aerosphere 160-9-4.8 mcg/actuation Hfa Aerosol Inhaler
2 inh INHALATION R BID
Xifaxan 550 mg Tablet
550 mg PO BID
magnesium oxide 400 mg magnesium Tablet
400 mg PO BID
lactulose 20 gram/30 mL Solution
20 g PO TID Qty: 2880 0RF
pantoprazole [Protonix] 40 mg tablet,delayed release (DR/EC)
40 mg PO BID
ondansetron HCl 4 mg Tablet
4 mg PO DAILYPRN PRN (Reason: nasuea)
lidocaine 4 % adhesive patch,medicated
1 patch topical DAILYPRN PRN (Reason: right knee and right shoulder)
miconazole nitrate [Miconazorb AF] 2 % powder
1 applic topical BID
tramadol 50 mg tablet
50 mg PO BIDPRN PRN (Reason: moderate-severe pain)
spironolactone 25 mg tablet
25 mg PO DAILY
ferrous sulfate [FeroSul] 325 mg (65 mg iron) tablet
325 mg PO DAILY
Hemorrhoidal(PE-min oil-darling) 0.25-14-74.9 % ointment
1 applic [place] BID
doxycycline hyclate 100 mg capsule
100 mg PO DAILY Qty: 30 0RF
Rx Instructions:
After you finish the IV antibiotics on 10/06/24
furosemide 20 mg tablet
20 mg PO DAILY
Discontinued
trazodone 50 mg tablet
25 mg PO HSPRN PRN (Reason: sleep ) Qty: 0 0RF
hydroxyzine HCl 25 mg tablet
25 mg PO BIDPRN PRN (Reason: itching /anxiety) Qty: 0 0RF
Discharge Orders:
Discharge Patient (As Directed); Ordered 10/23/24
Ordered By: Brock Mariano
Discharge Date and Time
Print Language: TAJIK
== END 2024-10-23 17:00 | disposition home health service (06) | DRG 871 ==
LOC: 2 NORTH 19:11
PROVIDERS: Internal Medicine; Nurse Practitioner Adult Health; Nurse Practitioner Family; Radiology Vascular & Interventional Radiology; Student in an Organized Health Care Education/Training Program; ADMITTING PHYSICIAN Internal Medicine; ATTENDING PHYSICIAN Hospitalist; CONSULT PHYSICIAN Internal Medicine Critical Care Medicine; CONSULT PHYSICIAN Internal Medicine Gastroenterology; CONSULT PHYSICIAN Internal Medicine Infectious Disease; CONSULT PHYSICIAN Psychiatry & Neurology Psychiatry; EMERGENCY PHYSICIAN Emergency Medicine; FAMILY PHYSICIAN Internal Medicine
PROC: 0W9G3ZZ Drainage of Peritoneal Cavity, Percutaneous Approach (ICD-10-PCS; 2024-10-12)
DX: A41.9 Sepsis, unspecified organism (principal); G92.8 Other toxic encephalopathy; J69.0 Pneumonitis due to inhalation of food and vomit; J96.21 Acute and chronic respiratory failure with hypoxia; K65.2 Spontaneous bacterial peritonitis; I85.01 Esophageal varices with bleeding; J18.9 Pneumonia, unspecified organism; D61.818 Other pancytopenia; E87.20 Acidosis, unspecified; R44.3 Hallucinations, unspecified; K76.6 Portal hypertension; K92.2 Gastrointestinal hemorrhage, unspecified; I85.10 Secondary esophageal varices without bleeding; K76.82 Hepatic encephalopathy; K70.31 Alcoholic cirrhosis of liver with ascites; D69.59 Other secondary thrombocytopenia; I10 Essential (primary) hypertension; F10.10 Alcohol abuse, uncomplicated; B18.2 Chronic viral hepatitis C; D63.8 Anemia in other chronic diseases classified elsewhere; D73.1 Hypersplenism; F17.210 Nicotine dependence, cigarettes, uncomplicated; J44.9 Chronic obstructive pulmonary disease, unspecified; K31.89 Other diseases of stomach and duodenum; I95.89 Other hypotension; F41.9 Anxiety disorder, unspecified; J43.9 Emphysema, unspecified; R45.1 Restlessness and agitation; T43.595A Adverse effect of other antipsychotics and neuroleptics, initial encounter; T43.215A Adverse effect of selective serotonin and norepinephrine reuptake inhibitors, initial encounter; K21.9 Gastro-esophageal reflux disease without esophagitis; K72.10 Chronic hepatic failure without coma; K04.1 Necrosis of pulp; F32.A Depression, unspecified; Z86.73 Personal history of transient ischemic attack (TIA), and cerebral infarction without residual deficits; Z79.899 Other long term (current) drug therapy; Z78.1 Physical restraint status; Z85.828 Personal history of other malignant neoplasm of skin; Z86.16 Personal history of COVID-19; Z99.81 Dependence on supplemental oxygen; Z79.51 Long term (current) use of inhaled steroids; Z11.52 Encounter for screening for COVID-19
CPT/HCPCS: 88305; 49083; 51702; 51798; 70355; 71046; 76705; 80048; 80053; 80306; 80307; 81003; 81015; 82042; 82077; 82140; 82150; 82805; 83605; 83615; 83735; 83880; 84157; 85025; 85027; 85610; 85730; 86850; 86900; 86901; 87015; 87040; 87070; 87086; 87205; 87502; 87811; 87880; 88112; 89051; 93005; 94640; 96365; 96375; 97116; 97162; 97167; 97535; 99285; J1335; J2358; P9047

== ENCOUNTER 2024-10-29 05:26 | Inpatient (IN) | payer BC, SELFPAY ==
[2024-10-28 22:35] VITALS: BP 120/58
--- NOTE | 2024-10-28 23:56 | ED.GENMED ---
History of Present Illness
General
Chief Complaint: Fever
Source: patient, records and family
Exam Limitations: none
Time Seen by Provider: 10/28/24 23:21
Nursing documentation reviewed up to this point in time: agreed with
History of Present Illness
History of Present Illness:
Patient is a 59-year-old male with known history of liver cirrhosis who presents with a fever of up to 104 this afternoon. It started today. Patient has chronic cough and is unchanged. Patient denies headache or neck stiffness. Patient admits to
generalized malaise. Patient is to have his routine paracentesis tomorrow morning. 2 days ago the patient had a tooth extracted from his right lower jaw and now has some ecchymosis but no other rashes. Patient does have diarrhea secondary to the
lactulose and that remains unchanged. Patient denies any melena or hematochezia. Patient does have some nausea but no vomiting. Patient denies any dysuria, hematuria, urgency or frequency. Patient was admitted earlier in the month with probable
aspiration pneumonia. Patient had acetaminophen at 930 tonight.
Past History
Past History
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 GI bleed, portal gastropathy, hemorrhoids, umbilical hernia, CVA)
ED Past Surgical History: Other
Social History
Tobacco: Smoker
Alcohol: Former
Drug: None
Personal:
Living: with family
Employment: Employed
Family History
Family History: Diabetes and Other
Review of Systems
Review of Systems
All Other Systems: ROS reviewed and negative except as documented in HPI and ROS
Constitutional: Reports fever, fatigue and chills
EENT: Reports mouth pain and mouth swelling; Denies sore throat or runny nose
Respiratory: Reports cough (Chronic and unchanged); Denies trouble breathing
Cardiac: Reports no symptoms
ABD/GI: Reports nausea; Denies abdominal pain, vomiting, diarrhea, bloody stools or black stools
: Reports no symptoms
Musculoskeletal: Reports no symptoms
Skin: Reports no symptoms
Neurological: Reports no symptoms
Hematologic/Lymphatic: Reports no symptoms
Phy Exam
Physical Exam
Physical Exam:
Physical Exam
General: No apparent distress, alert and appropriate, well nourished, well hydrated
HENT: Normocephalic, supple with no lymphadenopathy, no thyromegaly
Eyes: Clear sclera, conjuctiva without injection
Heart: Regular rhythm and rate. No S3, S4. Grade 2/6 holosystolic harsh murmur. No NVD
Lungs: No respiratory distress, no stridor, lung sounds clear and equal bilaterally
Abdomen: Soft, nontender, no CVA tenderness, BS good
Neuro: Alert and oriented x 3, CN II - XII intact, no motor focality, no cerebellar dysfunction
Skin: no rash
Psychiatric: well kept. interactive and cooperative
Extremities: No edema, cyanosis, tenderness
Sepsis
Sepsis Screening
Sepsis Assessment: Sepsis Ruled Out
Sepsis Screen
Sepsis Screen: Sepsis Ruled Out
Date: 10/29/24
Time: 05:07
Course
Orders/Labs/Results
Orders:
Orders
10/28/24 22:42
Electrocardiogram (*1) Urgent
Reason for Study: Other
Other Reason for Exam: Possible Sepsis
Cardiac Monitoring- Treatment ONCE
EKG- Treatment ONCE
IV Insert/Care/Rem.- Treatment PRN
Complete Blood Count/With Diff Urgent
Comprehensive Metabolic Panel Urgent
O2 Therapy [RESP] Urgent
Titrate/Wean O2 to maintain O2 sat greater than (%): 93
Special Instructions: TO MAINTAIN CONTINUOUS O2 SATS > OR = 93%
Pulse Ox/cont/shift [RESP] Urgent
Quantity: 1
Special Instructions: CONTINUOUS
10/28/24 22:44
COVID-19 Antigen Urgent
Source: Nasal Swab
INF RAPID [Influenza A+B Rapid Molecular] Urgent
LOVE Source: Nasal Swab
Specimen Description:
10/28/24 22:45
Lactic Acid Q4H
Comment: ON ICE, CANCEL 2ND ORDER IF FIRST LACTIC ACID LEVEL <2
10/28/24 23:55
Urinalysis Reflex To Culture Urgent
10/29/24 00:00
Ibuprofen [Motrin] 600 mg PO NOW STA
10/29/24 00:25
CR Chest - 2 Views Urgent
Reason For Exam: fever cough
10/29/24 00:50
Tramadol HCl [Ultram] 100 mg PO NOW STA
10/29/24 02:45
Lactic Acid Q4H
Comment: ON ICE, CANCEL 2ND ORDER IF FIRST LACTIC ACID LEVEL <2
10/29/24 03:40
Piperacillin/Tazo 4.5 Gram [Zosyn] 4.5 gram in 100 ml IV NOW
10/29/24 03:54
Vancomycin [Vancocin] 2,000 mg 0.9% Sodium Chloride 500 ml [Nss] 500 ml IV NOW
10/29/24 05:00
Blood Culture Q30M
LOVE Source: Blood/Venous
Specimen Description:
Flush (0.9% Sodium Chloride) [Flush (Nss)] See Dose Instructions IV PER PROTOCOL
10/29/24 05:30
Blood Culture Q30M
LOVE Source: Blood/Venous
Specimen Description:
Abnormal Lab Results
10/29/24
00:10
RBC 2.31 L 10^6/uL
(4.70-6.10)
Hgb 7.6 L g/dL
(13.0-18.0)
Hct 22.0 L %
(39.0-52.0)
MCV 95.2 H fL
(80.0-94.0)
MCH 32.9 H pg
(27.0-31.0)
RDW 16.7 H %
(11.5-14.5)
Plt Count 58 L 10^3/uL
(130-400)
Abs Immat Gran (auto) 0.1 H 10^3/uL
(0-0.05)
Absolute Lymphs (auto) 0.3 L 10^3/uL
(1.2-3.4)
Immature Gran % 1.9 H %
(0-0.5)
Neutrophils % 86.7 H %
(42.2-75.2)
Lymphocytes % 6.9 L %
(20.5-51.1)
Sodium 131 L mmol/L
(135-145)
Glucose 138 H mg/dl
(70-99)
Calcium 7.9 L mg/dl
(8.4-10.2)
Total Bilirubin 3.8 H mg/dl
(0.2-1.3)
Total Protein 5.0 L g/dl
(6.3-8.2)
Albumin 2.8 L g/dl
(3.5-5.0)
10/29/24 00:10
10/29/24 00:10
Vital Signs
Initial and Last Documented VS:
Initial Vital Signs
Temp Pulse Resp BP Pulse Ox
102.5 F H 113 20 120/58 96
10/28/24 22:35 10/28/24 22:35 10/28/24 22:35 10/28/24 22:35 10/28/24 22:35
Last Documented Vital Signs
Temp Pulse Resp BP Pulse Ox
102.5 F H 87 16 126/55 96
10/28/24 22:35 10/29/24 03:30 10/29/24 03:30 10/29/24 03:00 10/29/24 03:36
*Pulse Oximetry
Patient hypoxic: no
*EKG
Interpreted by ED Provider?: NA
*Costumer Interpretation
Rate: Costumer- N/A
*Critical Care Note
Total Time (30-74mins, 75-104mins- exclusive of procedures): Not Applicable
Update Note
Update Note:
Patient continues to be febrile. Uncertain where the patient's fever is originating from. This is similar to when he was here previously. Awaiting the patient's urine. Patient supposed to have paracentesis at 7 AM today. Will admit for fever
and IV antibiotics.
ED Attending Note
-
Portions of this chart may have been created with voice recognition software.� Occasional wrong word or��sound alike� substitutions may have occurred due to the inherent limitations of voice recognition software.
Discharge Plan
Departure
Patient Disposition: Admit
Date of Disposition: 10/29/24
Time of Disposition: 03:39
Admit to: Med/Surg
Admit to doctor: Hospitalist
Presentation/result/management discussed w/ accepting MD/DO: Hospitalist
Patient with high blood pressure during this ER visit?: No
Condition: Serious
Covid-19: Negative COVID-19
Discharge Problem:
Fever
Prescriptions:
No Action
thiamine HCl (vitamin B1) 100 mg tablet
100 mg PO DAILY
Breztri Aerosphere 160-9-4.8 mcg/actuation Hfa Aerosol Inhaler
2 inh INHALATION R BID
Xifaxan 550 mg Tablet
550 mg PO BID
magnesium oxide 400 mg magnesium Tablet
400 mg PO BID
lactulose 20 gram/30 mL Solution
20 g PO TID Qty: 2880 0RF
pantoprazole [Protonix] 40 mg tablet,delayed release (DR/EC)
40 mg PO BID
ondansetron HCl 4 mg Tablet
4 mg PO DAILYPRN PRN (Reason: nasuea)
lidocaine 4 % adhesive patch,medicated
1 patch topical DAILYPRN PRN (Reason: right knee and right shoulder)
miconazole nitrate [Miconazorb AF] 2 % powder
1 applic topical BID
tramadol 50 mg tablet
50 mg PO BIDPRN PRN (Reason: moderate-severe pain)
spironolactone 25 mg tablet
25 mg PO DAILY
ferrous sulfate [FeroSul] 325 mg (65 mg iron) tablet
325 mg PO DAILY
Hemorrhoidal(PE-min oil-darling) 0.25-14-74.9 % ointment
1 applic [place] BID
doxycycline hyclate 100 mg capsule
100 mg PO DAILY Qty: 30 0RF
Rx Instructions:
After you finish the IV antibiotics on 10/06/24
furosemide 20 mg tablet
20 mg PO DAILY
folic acid 1 mg Tablet
1 mg PO DAILY Qty: 30 0RF
nicotine 7 mg/24 hr Patch 24 Hour
7 mg transdermal DAILY Qty: 14 0RF
Referrals:
Drake Goss DO [Family Provider] -
Interventions
Interventions:
*Risk Screen - Suicide Last Done: 10/28/24 22:35
*General Assessment Last Done: 10/28/24 22:35
*Neglect/Abuse Screening Last Done: 10/28/24 22:35
ED- Fall Risk Assessment Last Done: 10/29/24 00:23
*ED COVID-19 Vaccine History Last Done: 10/28/24 22:35
ED- Neurological Assessment Last Done: 10/29/24 00:23
ED-Skin Assessment Last Done: 10/29/24 00:23
Discharge Date and Time
Print Language: CROATIAN
[2024-10-29] VITALS (10 sets, daily range): BP systolic 83–126; BP diastolic 52–82; BMI 25.0
[2024-10-29] MEDS: MOTRIN 600 MG PO (00:21)
[2024-10-29 00:35] LABS: ALT (SGPT) 17 U/L (0-50); AST (SGOT) 37 U/L (17-59); Albumin 2.8 g/dl (3.5-5.0); Alkaline Phosphatase 90 U/L (38-126); Blood Urea Nitrogen 20 mg/dl (9-20); Calcium 7.9 mg/dl (8.4-10.2); Carbon Dioxide 22 mmol/L (22-30); Chloride 104 mmol/L (98-107); Estimated Creatinine Clearance 67 ml/min; Glucose 138 mg/dl (70-99); Lactic Acid 1.5 mmol/L (0.7-2.0); Potassium 3.9 mmol/L (3.5-5.1); Sodium 131 mmol/L (135-145); Total Bilirubin 3.8 mg/dl (0.2-1.3); eGFR > 60.00
[2024-10-29 00:41] LABS: % Basophils 0.4 % (0-2); % Eosinophils 0.6 % (0-6); % Immature Granulocytes 1.9 % (0-0.5); % Lymphocytes 6.9 % (20.5-51.1); % Monocytes 3.5 % (1.7-9.3); % Neutrophils 86.7 % (42.2-75.2); Absolute Immature Granulocytes 0.1 10^3/uL (0-0.05); Absolute Lymphocytes 0.3 10^3/uL (1.2-3.4); Absolute Monocytes 0.2 10^3/uL (0.1-0.6); Absolute Neutrophils 4.2 10^3/uL (1.4-6.5); Hemoglobin 7.6 g/dL (13.0-18.0); Mean Corp Hgb Conc. 34.5 g/dL (33.0-37.0); Mean Corpuscular Hgb 32.9 pg (27.0-31.0); Mean Corpuscular Volume 95.2 fL (80.0-94.0); Mean Platelet Volume 10.3 fL (7.4-10.4); Nucleated Red Blood Cells % 0 % (-); Platelet Count 58 10^3/uL (130-400); Red Blood Cell Count 2.31 10^6/uL (4.70-6.10); Red Cell Dist. Width 16.7 % (11.5-14.5); White Blood Cell Count 4.8 10^3/uL (4.8-10.8)
[2024-10-29] MEDS: ULTRAM 100 MG PO (01:07)
[2024-10-29 01:14] LABS: COVID-19 Antigen Negative (Negative)
[2024-10-29] MEDS: ZOSYN 100 IV (04:01)
[2024-10-29] MEDS: VANCOCIN 540 MG IV (04:43)
--- NOTE | 2024-10-29 04:52 | HPS.HSE ---
Family Physician
-
Family Physician: Drake Goss
Chief Complaint
-
Fever
History of Present Illness
This is a 59-year-old with end-stage liver disease complicated by ascites requiring large-volume paracentesis, esophageal varices, history of hepatic encephalopathy, COPD was recently admitted with the role febrile episode and to the infection
presents to the emergency department with a 1 day history of fever.
Patient reported that he had a tooth extraction done on Tuesday 2 days ago. This was the left lower molar and has been bothering him for a week or so prior to that extraction while he was hospitalized here with a fever. He had sutures placed after
extraction and denied any new swelling. Denied any pain. Was feeling well up until noted to have a fever and chills today at home so he came to the emergency department for evaluation. Patient is pending thoracentesis this morning. He reports
that he has his usual amount of abdominal discomfort from his large volume ascites. He denied any sharp pain. He denied any nausea or vomiting. Denied having any melena. Patient denies any urinary symptoms except decreased urine output over the
last 12 hours. He denies any jaundice. He denies any headache neck stiffness or any new weakness.
During his previous admission he was initially admitted with possible aspiration pneumonia and started on antibiotics. He had repeat paracentesis that showed possible SBP and was broadened to ertapenem. He ultimately was discharged on chronic
doxycycline. Patient reported being giving ampicillin for his tooth extraction on Tuesday which he has been taking.
In the emergency department today he was febrile to 102 Fahrenheit, blood pressure was 126/80 oxygen saturation was 96% on room air. Chest x-ray shows no acute infiltrates. ECG with sinus tachycardia unchanged from prior with a rate of 101. COVID
test was negative influenza was negative. Sodium is down to 131 from a previous value of 138. Creatinine is 1.2 which is similar to prior. BUN is unchanged from prior. Rest of the electrolytes were within normal limits. He is LFTs were also
within normal limits. Lactic acid was 1.5. There was no leukocytosis. Hemoglobin was 7.6 which is similar to prior. He has chronic low platelets of 58.
Medical History
Past Medical History
Past Medical History: Reports COPD and CVA
Additional Past Medical History:
End-stage liver disease
Portal hypertension
Recurrent ascites
Past Surgical History: Reports Other
Social History
Tobacco: Former Smoker
Alcohol: Former
Drug: None
Personal:
Living: With Family
Family History
Family History: Not pertinent
Allergies / Home Medications
Allergies reflects when Allergies were last updated in [facility].
Home Medications with original date entered in [facility]
Allergy/Medication List:
Allergies
Allergy/AdvReac Type Severity Reaction Status Date / Time
No Known Allergies Allergy Verified 10/28/24 22:34
Home Medications
thiamine HCl (vitamin B1) 100 mg tablet 100 mg PO DAILY Supplement 03/13/24
budesonide 160 mcg-glycopyr 9 mcg-formot 4.8 mcg/actuation HFA inhaler (Breztri Aerosphere) 2 inh inhalation R BID Lung/Breathing Issues 04/11/24
magnesium oxide 400 mg PO BID Supplement 06/28/24
rifaximin 550 mg tablet (Xifaxan) 550 mg PO BID hepatic encephalopathy 06/28/24
lactulose 20 gram/30 mL oral solution 20 g (30 mL) PO TID Liver issues #2,880 mL 07/01/24
pantoprazole 40 mg tablet,delayed release (Protonix) 40 mg PO BID Gastrointestinal Issue 08/02/24
lidocaine 4 % topical patch 1 patch topical DAILYPRN PRN right knee and right shoulder 09/08/24
miconazole nitrate 2 % topical powder (Miconazorb AF) 1 applic topical BID groin/scrotum 09/08/24
ondansetron HCl 4 mg tablet 4 mg PO DAILYPRN PRN nasuea 09/08/24
ferrous sulfate 325 mg (65 mg iron) tablet (FeroSul) 325 mg PO DAILY Supplement 09/26/24
phenylephrine 0.25 %-mineral oil 14 %-petrolatm 74.9 % rectal ointment (Hemorrhoidal(phenyleph-min oil-petrolat)) 1 applic [place] BID hemorrhoids 09/26/24
spironolactone 25 mg tablet 25 mg PO DAILY Liver cirrhosis 09/26/24
tramadol 50 mg tablet 50 mg PO BIDPRN PRN moderate-severe pain 09/26/24
doxycycline hyclate 100 mg capsule 100 mg PO DAILY #30 caps 10/02/24
furosemide 20 mg tablet 20 mg PO DAILY Fluid retention/Swelling 10/06/24
folic acid 1 mg tablet 1 mg PO DAILY #30 tabs 10/23/24
nicotine 7 mg/24 hr daily transdermal patch 7 mg transdermal DAILY #14 ea 10/23/24
Review of Systems
-
History Source: Patient
Constitutional: Reports Fever and Chills
EENT: Reports No Symptoms
Respiratory: Reports No Symptoms
Cardiac: Reports No Symptoms
Abdomen/GI: Reports No Symptoms
: Reports No Symptoms
Musculoskeletal: Reports No Symptoms
Skin: Reports No Symptoms
Neurological: Reports No Symptoms
Endocrine: Reports No Symptoms
Hematologic/Lymphatic: Reports No Symptoms
Psych: Reports No Symptoms
Physical Exam
Vital Signs
Vital Signs
Temp Pulse Resp BP Pulse Ox
102.5 F H 87 16 126/55 96
10/28/24 22:35 10/29/24 03:30 10/29/24 03:30 10/29/24 03:00 10/29/24 03:36
Physical Exam
General: No Apparent Distress and Appears Chronically Ill
HEENT: NormoCephalic, Anicteric, Moist mucous membranes, Atraumatic, PERRLA and Neck Nontender
Respiratory: Clear
Cardiac: S1/S2 and Regular Rhythm
Breast: Deferred by me
GI: Non Tender, Normal Bowel Sounds and Distended
Rectal: Deferred by Provider
Genito-urinary: Deferred by me
Musculoskeletal: No Clubbing, No Cyanosis and No Edema
Skin: Warm
Neuro: AO x 3
Hematologic/Lymphatic: No Lymphadenopathy
Psych: Calm
Laboratory Results
-
10/29/24 00:10
10/29/24 00:10
Laboratory Results
Lactic Acid 1.5 mmol/L (0.7-2.0) 10/29/24 00:10
Total Bilirubin 3.8 mg/dl (0.2-1.3) H 10/29/24 00:10
AST 37 U/L (17-59) 10/29/24 00:10
ALT 17 U/L (0-50) 10/29/24 00:10
Alkaline Phosphatase 90 U/L (38-126) 10/29/24 00:10
Data Reviewed
-
Diagnostic Radiology: Image Personally Visualized and interpreted
Medical Tests (Nuc Med, Echo, EKG etc): Image Personally Visualized and interpreted
Lab Data: Labs Reviewed by me
Old Records: Reviewed
Impression/Plan
-
IMPRESSION:
59-year-old with end-stage liver disease presents to the emergency department with fever 2 days after tooth extraction for left lower molar tooth abscess. No respiratory symptoms and x-ray is clear. No urinary symptoms such as dysuria or flank
pain. No significant abdominal pain. No nausea or vomiting. He reports from mild oral pain radiating down the neck but no swelling. No headache. His labs are stable compared to prior except for a sodium of 131 today. Negative COVID and
influenza testing.
Source of infection is unclear at this time. Patient does have a history of recurrent urinary tract infections with ESBL E. coli, he also has a recent dental procedure and will possibly be transiently bacteremic. He has large volume ascites but
without any tenderness to suggest an acute secondary or spontaneous bacterial peritonitis however this cannot be ruled out. No encephalopathy at this time.
PLAN:
Fever - HD stable
- admit to med/surg
- blood cultures, urine cultures
- IR consult for dgx and volume paracentesis
- will hold vancomycin, zosyn for now as source unclear
- ID consultation
ESLD -
- continue furosemide/spironolactone
- continue lactulose/rifaxamine
- thiamine daily
Anemia - h/o esophageal varices and anemia. Hgb similar to prior at 7.6. No acute bleeding
- type and screen in am
- continue iron supplementation
- continue ppi daily
Hyponatremia - 2/2 cirrhosis. volume is up but possible infection
- iv fluid in ED
- free water restriction
DVT PPX - SCDs for now
Code Status - Full Code
--- NOTE | 2024-10-29 07:30 | W.PN.HOSP.TC ---
Today's Communication/Plan
-
see A/P
Assessment / Plan
Assessment / Plan
HPI: 59-year-old with end-stage liver disease complicated by ascites requiring large-volume paracentesis, esophageal varices, history of hepatic encephalopathy, COPD; presented with a 1 day history of fever.
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 Prior to the extraction he was hospitalized here with fever/SBP.
He had sutures placed after extraction and denied any new swelling/pain.
He reports that he has his usual amount of abdominal discomfort from his large volume ascites.
Patient denies any urinary symptoms except decreased urine output over the last 12 hours.
During his recent admission, he was initially admitted with possible aspiration pneumonia and started on antibiotics. He had repeat paracentesis that showed possible SBP and was broadened to ertapenem. He ultimately was discharged on chronic
doxycycline. Patient reported being giving ampicillin for his tooth extraction on Tuesday which he has been taking.
In the emergency department today he was febrile to 102 Fahrenheit. Chest x-ray shows no acute infiltrates. ECG with sinus tachycardia unchanged from prior with a rate of 101. COVID test was negative influenza was negative. Creatinine is 1.2 which
is similar to prior. BUN is unchanged from prior.
A/P:
# SIRS with fever likely SBP
Follow blood cultures, check UA reflex culture
s/p routine paracentesis 10/29, removed 5300 cc of clear yellow ascitic fluid
Ascitic fluid with 600 PMN
cont zosyn
hold vancomycin,
ID on board
# ESLD
continue furosemide/spironolactone
continue lactulose/rifaximin
thiamine daily
# Chronic Anemia with h/o esophageal varices and anemia.
Hgb similar to prior at 7.6. No acute bleeding
continue iron supplementation
continue ppi daily
# Hyponatremia
s/p iv fluid in ED
cont free water restriction
DVT PPX - SCDs for now
Code Status - Full Code
Anticipated Discharge: 24 - 48 hours
Subjective/Interval History
-
Date of Service: October 29, 2024
Objective Data
-
Labs:
Laboratory Results
10/29/24
00:10
WBC 4.8
Hgb 7.6 L
Hct 22.0 L
Plt Count 58 L
Sodium 131 L
Potassium 3.9
Chloride 104
Carbon Dioxide 22
BUN 20
Creatinine 1.2
Glucose 138 H
Calcium 7.9 L
Total Bilirubin 3.8 H
AST 37
ALT 17
Alkaline Phosphatase 90
Vital Signs:
Vital Signs
Temp Pulse Resp BP Pulse Ox
37.2 C 83 18 110/82 94
10/29/24 06:29 10/29/24 06:45 10/29/24 06:45 10/29/24 05:00 10/29/24 06:15
Review of Systems
-
All other systems: Reviewed and negative
Physical Exam
-
General: Well Developed, No Apparent Distress, Comfortable and Conversant
Respiratory: Clear to Auscultation and Non Labored Respirations; Negative Accessory Resp Muscle Use
Cardiac: Regular Rhythm and S1/S2
GI: Soft, Nontender and Distended
Neuro: Awake, Alert, Oriented and AO x 3
Psych: Calm and Intact Judgement/Insight
Data Reviewed
-
Labs: Labs Reviewed by me and Discussed with Patient
[2024-10-29 09:22] LABS: Body Fluid Albumin < 1.0 g/dl; Body Fluid LDH < 90 U/L; Body Fluid Protein < 2.0 g/dl
--- NOTE | 2024-10-29 09:47 | CON.ID ---
Consultation
-
Date/Time Consultation Requested: 10/29/2024 0656
Date/Time Consultation Performed: 10/29/2024 0947
Requesting Provider: Alisa
Performing Provider: Micha
Reason for Consultation: Fever
Chief Complaint / Past History
History of Present Illness
Cortez randle is a 59-year-old male with a significant past medical history of end-stage liver disease, previously on transplant list, being evaluated regarding fever. History is obtained from chart review, along with patient interview, and
review of old records contained in the hospital EMR system.
The patient is known to the Infectious Diseases service, having been seen on multiple prior admissions. He has a history of ESBL E. coli SBP, and is maintained on doxycycline 100 mg p.o. daily suppression.
He was recently discharged on 10/23 to home, and reports that he was well until yesterday when he felt quite tired all day and slept a lot. Later in the evening, a temperature was taken and found to be 101 degrees. Thereafter, he came to the
emergency room for further evaluation.
He recalls having rigors at home, along feeling quite cold. He denied any history of abdominal pain. Today he underwent paracentesis.
He denies any cough or congestion. He recently underwent right lower tooth extraction, and notes some mild right jaw discomfort. Following extraction he was placed on amoxicillin, but only started at the next day. He denies any headache. Denies
any chest pain or shortness of breath. He denies any dysuria.
Past History
Additional Past Medical History:
Cirrhosis
Upper GI bleed
COPD
Recurrent SBP
Hepatic encephalopathy
Hx of CVA
Allergy History:
No Known Allergies Allergy (Verified 10/28/24 22:34)
Medications Reviewed: Yes
Current Antibiotics:
Zosyn 3.375 g IV every 6 hours
Vancomycin x 1
Xifaxan 550 mg p.o. twice daily
Social History
Tobacco: Smoker
Alcohol: Former
Drug: None
Personal:
Living: With Family
Employment: Employed
Family History
Family History: Not Pertinent
Review of Systems
Vital Signs
Temp Pulse Resp BP Pulse Ox
97.4 F 83 16 111/60 98
10/29/24 09:16 10/29/24 07:40 10/29/24 07:40 10/29/24 07:40 10/29/24 07:40
Physical Exam
Physical Exam
Constitutional: No Acute Distress, Comfortable, Chronically Ill and Non-toxic
Head: Normocephalic
Eyes: Pupils Equal, Pupils Round and No Conjunctival Hemorrhage
Oral: No Thrush
Cardiovascular: Regular Rate and S1/S2; Negative S3/S4
Pulmonary: Clear; Negative Wheezes, Rales or Rhonchi
Gastrointestinal: Soft, Non Distended, Normal Bowel Sounds and No Rebound
Extremities: Edema (3+); Negative Cyanosis or Erythema
Neurological: Awake and Alert
Lab / Diagnostic Study Results
10/29/24 00:10
10/29/24 00:10
Abs Immat Gran (auto) 0.1 10^3/uL (0-0.05) H 10/29/24 00:10
Absolute Neuts (auto) 4.2 10^3/uL (1.4-6.5) 10/29/24 00:10
Absolute Lymphs (auto) 0.3 10^3/uL (1.2-3.4) L 10/29/24 00:10
Absolute Monos (auto) 0.2 10^3/uL (0.1-0.6) 10/29/24 00:10
Absolute Basos (auto) 0.0 10^3/uL (0-0.2) 10/29/24 00:10
Immature Gran % 1.9 % (0-0.5) H 10/29/24 00:10
Neutrophils % 86.7 % (42.2-75.2) H 10/29/24 00:10
Lymphocytes % 6.9 % (20.5-51.1) L 10/29/24 00:10
Monocytes % 3.5 % (1.7-9.3) 10/29/24 00:10
Eosinophils % 0.6 % (0-6) 10/29/24 00:10
Basophils % 0.4 % (0-2) 10/29/24 00:10
Lactic Acid 1.0 mmol/L (0.7-2.0) 10/29/24 05:39
Microbiology Results
Micro:
10/29/24 07:58 Body Fluid Culture - Pending
Peritoneal Fluid Gram Stain - Pending
10/29/24 05:39 Blood Culture - Pending
Blood/Venous
10/29/24 05:39 Blood Culture - Pending
Blood/Venous
10/29/24 00:10 Influenza Types A & B (FRACISCO) - Final
Nasal Swab Negative for Influenza A & B, NAAT
Negative results must be combined with clinical observations
and patient history.
Nucleic Acid Amplification test (NAAT)performed on the
[employer] NOW platform.
Imaging:
10/29/2024 CXR (2 view): Improving aeration of the right base. No convincing focal infiltrates. No significant pleural effusions. No visualized pneumothorax.
Assessment / Plan
Fever
Normal white count with left shift
Advanced / End-stage Cirrhosis
Recent hx of ESBL SBP and bacteremia
- maintained on doxycycline prophylaxis
Hx Upper GI bleed
COPD
Hx Recurrent SBP
Hepatic encephalopathy
Hx of CVA
Recommendations:
Fever noted at presentation to triage. Patient's status post routine paracentesis today.
Continue with empiric Zosyn for today.
Await ascites fluid analysis.
Monitor temperature curve.
Monitor white count.
[2024-10-29 10:02] LABS: Urine Albumin Trace (Neg - Trace); Urine Bilirubin 1+ (Negative); Urine Character Clear (Clear); Urine Color Amber; Urine Glucose Negative (Negative); Urine Ketone Trace (Negative); Urine Leukocyte 1+ (Negative); Urine Nitrite Negative (Negative); Urine Occult Blood Negative (Negative); Urine Urobilinogen 1+ (Neg - 1+)
[2024-10-29] MEDS: PROTONIX 40 MG PO ×2 (10:07→20:36)
[2024-10-29] MEDS: FOLVITE 1 MG PO (10:07)
[2024-10-29] MEDS: FEOSOL 325 MG PO (10:07)
[2024-10-29] MEDS: VITAMIN B1 100 MG PO (10:08)
[2024-10-29] MEDS: XIFAXAN 550 MG PO ×2 (10:09→20:36)
[2024-10-29] MEDS: ALDACTONE PO (10:09)
[2024-10-29] MEDS: LASIX PO (10:09)
[2024-10-29 10:17] LABS: Urine Squamous Cell 16-20 /LPF (Few)
[2024-10-29 10:18] LABS: Urine Bacteria Few (Negative)
[2024-10-29] MEDS: ULTRAM 50 MG PO ×2 (10:20→21:12)
[2024-10-29] MEDS: MAG-TAB SR 84 MG PO ×2 (10:20→20:36)
[2024-10-29] MEDS: DUPHALAC/CHRONULAC 20 GRAMS PO ×2 (10:22→16:45)
[2024-10-29 10:37] LABS: Body Fluid Mononuclear 26.8 %; Body Fluid Polymorphonuclear 73.2 %; Body Fluid WBC 824 /CUMM
[2024-10-29 10:40] LABS: Body Fluid Second Tech CS
[2024-10-29] MEDS: SYMBICORT 160/4.5 MCG INHALER INH ×2 (10:43→20:07)
[2024-10-29 11:33] LABS: Urine Sodium 5 mmol/L (30-90)
[2024-10-29] MEDS: ZOSYN 50 IV ×3 (11:34→21:12)
[2024-10-29] MEDS: FLEXBUMIN 50 IV (12:14)
[2024-10-29] MEDS: DUPHALAC/CHRONULAC PO (21:18)
[2024-10-30] MEDS: ZOSYN 50 IV ×2 (03:31→10:47)
[2024-10-30 05:39] VITALS: BMI 23.1
[2024-10-30 07:20] VITALS: BP 106/55
[2024-10-30] MEDS: SYMBICORT 160/4.5 MCG INHALER 2 PUFF INH (07:34)
[2024-10-30] MEDS: SPIRIVA RESPIMAT 2.5 MCG 2 PUFF INH (07:35)
[2024-10-30 08:51] LABS: Hematocrit 20.5 % (39.0-52.0); Hemoglobin 7.2 g/dL (13.0-18.0); Mean Corp Hgb Conc. 35.1 g/dL (33.0-37.0); Mean Corpuscular Hgb 33.5 pg (27.0-31.0); Mean Corpuscular Volume 95.3 fL (80.0-94.0); Mean Platelet Volume 11.4 fL (7.4-10.4); Platelet Count 53 10^3/uL (130-400); Red Blood Cell Count 2.15 10^6/uL (4.70-6.10); Red Cell Dist. Width 16.5 % (11.5-14.5); White Blood Cell Count 2.7 10^3/uL (4.8-10.8)
[2024-10-30 09:10] LABS: Blood Urea Nitrogen 22 mg/dl (9-20); Calcium 7.6 mg/dl (8.4-10.2); Carbon Dioxide 21 mmol/L (22-30); Chloride 105 mmol/L (98-107); Estimated Creatinine Clearance 62 ml/min; Glucose 85 mg/dl (70-99); Magnesium 1.9 mg/dl (1.6-2.3); Potassium 3.4 mmol/L (3.5-5.1); Sodium 133 mmol/L (135-145); eGFR > 60.00
--- NOTE | 2024-10-30 10:41 | W.PN.HOSP.TC ---
Today's Communication/Plan
-
see A/P
Assessment / Plan
Assessment / Plan
HPI: 59-year-old with end-stage liver disease complicated by ascites requiring large-volume paracentesis, esophageal varices, history of hepatic encephalopathy, COPD; presented with a 1 day history of fever.
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 Prior to the extraction he was hospitalized here with fever/SBP.
He had sutures placed after extraction and denied any new swelling/pain.
He reports that he has his usual amount of abdominal discomfort from his large volume ascites.
Patient denies any urinary symptoms except decreased urine output over the last 12 hours.
During his recent admission, he was initially admitted with possible aspiration pneumonia and started on antibiotics. He had repeat paracentesis that showed possible SBP and was broadened to ertapenem. He ultimately was discharged on chronic
doxycycline. Patient reported being giving ampicillin for his tooth extraction on Tuesday which he has been taking.
In the emergency department today he was febrile to 102 Fahrenheit. Chest x-ray shows no acute infiltrates. ECG with sinus tachycardia unchanged from prior with a rate of 101. COVID test was negative influenza was negative. Creatinine is 1.2 which
is similar to prior. BUN is unchanged from prior.
A/P:
# sepsis POA with fever 2/2 SBP
blood cultures so far negative
s/p routine paracentesis 10/29, removed 5300 cc of clear yellow ascitic fluid
Ascitic fluid with 600 PMN
cont zosyn
hold vancomycin,
ID on board
# ESLD
continue furosemide/spironolactone
continue lactulose/rifaximin
thiamine daily
# Chronic Anemia with h/o esophageal varices and anemia.
No acute bleeding
continue iron supplementation
continue ppi daily
Hgb today at 7.2, transfuse 1 unit PRBC
# Mild Hyponatremia
s/p iv fluid in ED
cont free water restriction
Sodium level 133 today
# Hypokalemia
replete K
DVT PPX - SCDs for now
Code Status - Full Code
DW RN
DW ID
DW at bedside
total time spent 51 min
Anticipated Discharge: 24 - 48 hours
Subjective/Interval History
-
Date of Service: October 30, 2024
Objective Data
-
Labs:
Laboratory Results
10/30/24
07:32
WBC 2.7 L
Hgb 7.2 L
Hct 20.5 L*
Plt Count 53 L
Sodium 133 L
Potassium 3.4 L
Chloride 105
Carbon Dioxide 21 L
BUN 22 H
Creatinine 1.3
Glucose 85
Calcium 7.6 L
Vital Signs:
Vital Signs
Temp Pulse Resp BP Pulse Ox
36.8 C 84 16 106/55 96
10/30/24 07:20 10/30/24 07:36 10/30/24 07:36 10/30/24 07:20 10/30/24 07:36
I&O
10/29/24 10/30/24 10/31/24
06:59 06:59 06:59
Intake Total 1410 / 1410
Balance 1410 / 1410
Review of Systems
-
All other systems: Reviewed and negative
Physical Exam
-
General: Well Developed, No Apparent Distress, Comfortable and Conversant
Respiratory: Clear to Auscultation and Non Labored Respirations; Negative Accessory Resp Muscle Use
Cardiac: Regular Rhythm and S1/S2
GI: Soft, Nontender and Distended
Neuro: Awake, Alert, Oriented and AO x 3
Psych: Calm and Intact Judgement/Insight
Data Reviewed
-
Labs: Labs Reviewed by me and Discussed with Patient
[2024-10-30] MEDS: VITAMIN B1 100 MG PO (10:47)
[2024-10-30] MEDS: ALDACTONE 25 MG PO (10:47)
[2024-10-30] MEDS: PROTONIX 40 MG PO ×2 (10:47→20:30)
[2024-10-30] MEDS: FEOSOL 325 MG PO (10:47)
[2024-10-30] MEDS: XIFAXAN 550 MG PO ×2 (10:47→20:30)
[2024-10-30] MEDS: FOLVITE 1 MG PO (10:48)
[2024-10-30] MEDS: LASIX 20 MG PO (10:48)
[2024-10-30] MEDS: MAG-TAB SR 84 MG PO ×2 (10:48→20:30)
[2024-10-30] MEDS: DUPHALAC/CHRONULAC 20 GRAMS PO ×2 (10:49→15:32)
[2024-10-30] MEDS: KCL 40 MEQ PO (10:50)
[2024-10-30] MEDS: ULTRAM 50 MG PO ×2 (11:20→20:30)
--- NOTE | 2024-10-30 13:10 | W.PN.ID1 ---
Date of Service
Date of Service: October 30, 2024
Today's Communication
Continue antibiotics.
Assessment / Plan
Fever
Normal white count with left shift
Recurrence of SBP
Advanced / End-stage Cirrhosis
Recent hx of ESBL SBP and bacteremia
- maintained on doxycycline prophylaxis
Hx Upper GI bleed
COPD
Hx Recurrent SBP
Hepatic encephalopathy
Hx of CVA
Recommendations:
Yesterday's paracentesis suggestive of SBP. Cultures pending.
Transition antibiotics to ertapenem.
Given recurrence, we will treat for a longer course (10 to 14 days).
Home infusion sheet has been given to case management. If can be set up, will need PICC line.
Monitor temperature curve.
Monitor white count.
����������������������������������������������������������
Chief Complaint
-: Other (SBP)
Subjective / Review of Systems
Review of Systems: No Fever, No Chills and No Abdominal Pain
Vital Signs / Physical Exam
Vital Signs
Vital Signs
Temp Pulse Resp BP Pulse Ox
98.2 F 84 16 106/55 96
10/30/24 07:20 10/30/24 07:36 10/30/24 07:36 10/30/24 07:20 10/30/24 07:36
Physical Exam
Constitutional: No Acute Distress, Comfortable and Non-toxic
Eyes: Sclera Anicteric
Pulmonary: Non Labored
Gastrointestinal: Non Tender and Distended
Extremities: Edema; Negative Cyanosis or Erythema
Neurological: AO x 3
Psychological: Calm
Objective Data
Lab Data
Lab Results
10/30/24 07:32
10/30/24 07:32
Estimated Creat Clear 62 ml/min 10/30/24 07:32
Lactic Acid 1.0 mmol/L (0.7-2.0) 10/29/24 05:39
Total Bilirubin 3.8 mg/dl (0.2-1.3) H 10/29/24 00:10
AST 37 U/L (17-59) 10/29/24 00:10
ALT 17 U/L (0-50) 10/29/24 00:10
Alkaline Phosphatase 90 U/L (38-126) 10/29/24 00:10
Most recent labs reviewed.
Micro Results:
10/29/24 09:52 Urine Culture - Final
Urine NO GROWTH
10/29/24 07:58 Body Fluid Culture - Preliminary
Peritoneal Fluid No Growth After 18-24 Hours
Gram Stain - Preliminary
10/29/24 05:39 Blood Culture - Preliminary
Blood/Venous No Growth in 24 hours- Final report to follow
10/29/24 05:39 Blood Culture - Preliminary
Blood/Venous No Growth in 24 hours- Final report to follow
10/29/24 00:10 Influenza Types A & B (FRACISCO) - Final
Nasal Swab Negative for Influenza A & B, NAAT
Negative results must be combined with clinical observations
and patient history.
Nucleic Acid Amplification test (NAAT)performed on the
[employer] NOW platform.
Laboratory Tests
10/29/24
07:58
Fluid WBC 824
Fluid Mononuclear Cell 26.8
Fl Polymorphonucl Cell 73.2
Fluid Total Protein < 2.0
Fluid Albumin < 1.0
Fluid LDH < 90
Imaging:
10/29/2024 CXR (2 view): Improving aeration of the right base. No convincing focal infiltrates. No significant pleural effusions. No visualized pneumothorax.
Care Review
Plan reviewed with: Physician (Hospitalist)
--- NOTE | 2024-10-30 13:36 | CM ---
Patient seen at bedside.
IA completed - Dx: Fever - Paracentesis 10/29 -5300cc
Patient to receive transfusion today hgb 7.2
Patient lives with spouse and daughter in 2 story home, 1 step to enter. Flight of steps to 2nd floor.
PLOF: Independent
DME: cane, shower chair, grab bars,
Current with [facility]
Has been at [facility] in past.
Seen by ID today - script for IV Ertapenam 1 gm Q24
will need Midline/PICC placed
Discussed [facility] - agreeable - Left Message for Natalie liaomari at [facility] [phone]
Called [facility] #[phone] & spoke with Maxine - Faxed over clinicals to her at [phone] to obtain cost
Spoke with Natalie they are closed tomorrow - earliest is - Natalie off on -CALL OFFICE ON TUESDAY AM TO COORDINATE DRUG DELIVERY - [phone]
PLAN: home with IV Ertapenam
--- NOTE | 2024-10-30 14:14 | PTCARENOTE ---
Patient ambulating in room with a steady gait. Right midline place for 10-14 days of home antibiotics. Patient and spouse updated with plan.
[2024-10-30 15:15] VITALS: BP 126/60
--- NOTE | 2024-10-30 15:18 | VNURNOTE ---
Home health liaison met with patient to discuss JENNIFER. Patient understands home visits will be 1-2 times a week to assess and teach medical management. Patient aware a visiting nurse will contact them for start of care within 1-2 days after discharge
from . VN Referral completed in care port.
[2024-10-30] MEDS: INVANZ 60 MG IV (15:32)
[2024-10-30 16:56] VITALS: BP 109/58
[2024-10-30 17:15] VITALS: BP 112/59
[2024-10-30 19:28] VITALS: BP 116/60
[2024-10-30] MEDS: SYMBICORT 160/4.5 MCG INHALER INH (20:05)
[2024-10-30] MEDS: DUPHALAC/CHRONULAC PO (21:57)
[2024-10-30 23:17] VITALS: BP 107/62
[2024-10-31 06:10] LABS: Hematocrit 24.3 % (39.0-52.0); Hemoglobin 8.1 g/dL (13.0-18.0); Mean Corp Hgb Conc. 33.3 g/dL (33.0-37.0); Mean Corpuscular Hgb 32.7 pg (27.0-31.0); Mean Platelet Volume 10.6 fL (7.4-10.4); Platelet Count 62 10^3/uL (130-400); Red Blood Cell Count 2.48 10^6/uL (4.70-6.10); White Blood Cell Count 3.5 10^3/uL (4.8-10.8)
[2024-10-31 06:29] LABS: Blood Urea Nitrogen 18 mg/dl (9-20); Calcium 7.6 mg/dl (8.4-10.2); Carbon Dioxide 21 mmol/L (22-30); Chloride 106 mmol/L (98-107); Estimated Creatinine Clearance 89 ml/min; Glucose 77 mg/dl (70-99); Potassium 3.7 mmol/L (3.5-5.1); Sodium 133 mmol/L (135-145); eGFR > 60.00
[2024-10-31 07:20] VITALS: BP 94/40
[2024-10-31] MEDS: SPIRIVA RESPIMAT 2.5 MCG INH ×2 (07:33→07:37)
[2024-10-31] MEDS: SYMBICORT 160/4.5 MCG INHALER INH ×3 (07:33→16:00)
[2024-10-31] MEDS: VITAMIN B1 100 MG PO (09:14)
[2024-10-31] MEDS: ALDACTONE 25 MG PO (09:14)
[2024-10-31] MEDS: MAG-TAB SR 84 MG PO ×2 (09:14→20:47)
[2024-10-31] MEDS: PROTONIX 40 MG PO ×2 (09:14→20:47)
[2024-10-31] MEDS: XIFAXAN 550 MG PO ×2 (09:14→20:47)
[2024-10-31] MEDS: FEOSOL 325 MG PO (09:15)
[2024-10-31] MEDS: LASIX 20 MG PO (09:15)
[2024-10-31] MEDS: FOLVITE 1 MG PO (09:15)
[2024-10-31] MEDS: ULTRAM 50 MG PO ×2 (09:20→20:54)
[2024-10-31] MEDS: DUPHALAC/CHRONULAC 20 GRAMS PO ×2 (09:20→16:30)
--- NOTE | 2024-10-31 11:33 | W.PN.HOSP.TC ---
Today's Communication/Plan
-
see A/P
Assessment / Plan
Assessment / Plan
HPI: 59-year-old with end-stage liver disease complicated by ascites requiring large-volume paracentesis, esophageal varices, history of hepatic encephalopathy, COPD; presented with a 1 day history of fever.
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 Prior to the extraction he was hospitalized here with fever/SBP.
He had sutures placed after extraction and denied any new swelling/pain.
He reports that he has his usual amount of abdominal discomfort from his large volume ascites.
Patient denies any urinary symptoms except decreased urine output over the last 12 hours.
During his recent admission, he was initially admitted with possible aspiration pneumonia and started on antibiotics. He had repeat paracentesis that showed possible SBP and was broadened to ertapenem. He ultimately was discharged on chronic
doxycycline. Patient reported being giving ampicillin for his tooth extraction on Tuesday which he has been taking.
In the emergency department today he was febrile to 102 Fahrenheit. Chest x-ray shows no acute infiltrates. ECG with sinus tachycardia unchanged from prior with a rate of 101. COVID test was negative influenza was negative. Creatinine is 1.2 which
is similar to prior. BUN is unchanged from prior.
A/P:
# sepsis POA with fever 2/2 SBP
blood cultures so far negative
s/p routine paracentesis 10/29, removed 5300 cc of clear yellow ascitic fluid
Ascitic fluid with 600 PMN
Zosyn -> Ertapenem, with plan for home infusion (10 to 14 days).
Midline placed 10/30
ID on board
# ESLD
continue furosemide/spironolactone
continue lactulose/rifaximin
thiamine daily
# Chronic Anemia with h/o esophageal varices and anemia.
No acute bleeding
continue iron supplementation
continue ppi daily
Hgb today at 7.2, transfuse 1 unit PRBC
# Mild Hyponatremia
s/p iv fluid in ED
cont free water restriction
Sodium level 133 today
# Hypokalemia
replete K
DVT PPX - SCDs for now
Code Status - Full Code
DW and other family members at bedside
Anticipated Discharge: Within 24 hours
Subjective/Interval History
-
Date of Service: October 31, 2024
Objective Data
-
Labs:
Laboratory Results
10/31/24
05:42
WBC 3.5 L
Hgb 8.1 L
Hct 24.3 L
Plt Count 62 L
Sodium 133 L
Potassium 3.7
Chloride 106
Carbon Dioxide 21 L
BUN 18
Creatinine 0.9
Glucose 77
Calcium 7.6 L
Vital Signs:
Vital Signs
Temp Pulse Resp BP Pulse Ox
36.9 C 81 16 94/40 94
10/31/24 07:20 10/31/24 07:20 10/31/24 07:20 10/31/24 07:20 10/31/24 07:20
I&O
10/30/24 10/31/24 11/01/24
06:59 06:59 06:59
Intake Total 1410 / 1410 1080 / 1080
Balance 1410 / 1410 1080 / 1080
Review of Systems
-
All other systems: Reviewed and negative
Physical Exam
-
General: Well Developed, No Apparent Distress, Comfortable and Conversant
Respiratory: Clear to Auscultation and Non Labored Respirations; Negative Accessory Resp Muscle Use
Cardiac: Regular Rhythm and S1/S2
GI: Soft, Nontender and Distended
Neuro: Awake, Alert, Oriented and AO x 3
Psych: Calm and Intact Judgement/Insight
Data Reviewed
-
Labs: Labs Reviewed by me and Discussed with Patient
[2024-10-31] MEDS: INVANZ 60 MG IV (14:46)
[2024-10-31] MEDS: FLUSH (NSS) 2 FLUSH IV (14:46)
[2024-10-31 15:10] VITALS: BP 93/42
[2024-10-31] MEDS: DUPHALAC/CHRONULAC PO (22:44)
[2024-10-31 23:00] VITALS: BP 101/55
[2024-11-01 06:38] LABS: Hematocrit 24.1 % (39.0-52.0); Hemoglobin 8.2 g/dL (13.0-18.0); Mean Corpuscular Hgb 32.4 pg (27.0-31.0); Mean Corpuscular Volume 95.3 fL (80.0-94.0); Mean Platelet Volume 10.8 fL (7.4-10.4); Platelet Count 63 10^3/uL (130-400); Red Blood Cell Count 2.53 10^6/uL (4.70-6.10); Red Cell Dist. Width 16.6 % (11.5-14.5); White Blood Cell Count 3.6 10^3/uL (4.8-10.8)
--- NOTE | 2024-11-01 06:40 | VATNOTE ---
4FR R ML GROSSLY BLOODY AGAIN THIS AM AT TIME OF LAB DRAW. RD PER PROTOCOL W/O BIOPATCH AND QUICK CLOT X2 APPLIED. PT ANTICIPATES D/C TODAY TO HOME W/ ML. NO ACTIVE BLEEDING NOTED AT INSERTION SITE. PT HAS PREVIOUS EXPERIENCE WITH DISCHARGE TO HOME
WITH A ML AND BLEEDING AT INSERTION SITE WELL. REVIEWED POSSIBLE CASE SCENARIOS WITH PT AND REASSURED HIM OF THE ACTIVE ROLE HIS HOME INFUSION WILL HAVE IN THE CARE OF HIS ML. PCN AWARE OF INTERVENTION AND OUTCOME.
[2024-11-01] MEDS: SPIRIVA RESPIMAT 2.5 MCG INH (07:10)
[2024-11-01 07:11] LABS: Blood Urea Nitrogen 17 mg/dl (9-20); Calcium 7.8 mg/dl (8.4-10.2); Carbon Dioxide 21 mmol/L (22-30); Chloride 104 mmol/L (98-107); Estimated Creatinine Clearance 100 ml/min; Glucose 80 mg/dl (70-99); Potassium 3.8 mmol/L (3.5-5.1); Sodium 132 mmol/L (135-145); eGFR > 60.00
[2024-11-01] MEDS: SYMBICORT 160/4.5 MCG INHALER INH (07:11)
[2024-11-01 07:43] VITALS: BP 98/47
[2024-11-01] MEDS: PROTONIX 40 MG PO (08:16)
[2024-11-01] MEDS: DUPHALAC/CHRONULAC 20 GRAMS PO (08:17)
[2024-11-01] MEDS: LASIX 20 MG PO (08:17)
[2024-11-01] MEDS: FEOSOL 325 MG PO (08:17)
[2024-11-01] MEDS: VITAMIN B1 100 MG PO (08:17)
[2024-11-01] MEDS: ALDACTONE 25 MG PO (08:18)
[2024-11-01] MEDS: FOLVITE 1 MG PO (08:18)
[2024-11-01] MEDS: MAG-TAB SR 84 MG PO (08:18)
[2024-11-01] MEDS: XIFAXAN 550 MG PO (08:18)
[2024-11-01] MEDS: ULTRAM 50 MG PO (08:24)
--- NOTE | 2024-11-01 09:19 | CM ---
Per tt from Natalie liaison from [facility] cost - 100% coverage
CM spoke with Maxine in intake [phone] - faxed her midline information & she received.
refaxed IV order.
Maxine states he can have his dose IV Ertapenam here at hospital today & they will have medication delivered tomorrow as well as having nurse tomorrow virtual.
tt hospitalist.
Also JENNIFER by VN
PLAN: Home today with IV Ertapenam 1gm Q24h with [facility] to follow for Infusion & also JENNIFER with [facility] fax #: [phone]
--- NOTE | 2024-11-01 11:13 | W.PN.HOSP.TC ---
Addendum entered and electronically signed by Rain Pierce MD 11/01/24 11:35:
updated on the phone
total DC time 40 min
Original Note:
Today's Communication/Plan
-
see A/P
Assessment / Plan
Assessment / Plan
HPI: 59-year-old with end-stage liver disease complicated by ascites requiring large-volume paracentesis, esophageal varices, history of hepatic encephalopathy, COPD; presented with a 1 day history of fever.
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 Prior to the extraction he was hospitalized here with fever/SBP.
He had sutures placed after extraction and denied any new swelling/pain.
He reports that he has his usual amount of abdominal discomfort from his large volume ascites.
Patient denies any urinary symptoms except decreased urine output over the last 12 hours.
During his recent admission, he was initially admitted with possible aspiration pneumonia and started on antibiotics. He had repeat paracentesis that showed possible SBP and was broadened to ertapenem. He ultimately was discharged on chronic
doxycycline. Patient reported being giving ampicillin for his tooth extraction on Tuesday which he has been taking.
In the emergency department today he was febrile to 102 Fahrenheit. Chest x-ray shows no acute infiltrates. ECG with sinus tachycardia unchanged from prior with a rate of 101. COVID test was negative influenza was negative. Creatinine is 1.2 which
is similar to prior. BUN is unchanged from prior.
A/P:
# sepsis POA with fever 2/2 SBP
blood cultures so far negative
s/p routine paracentesis 10/29, removed 5300 cc of clear yellow ascitic fluid
Ascitic fluid with 600 PMN
Zosyn -> Ertapenem, with plan for home infusion (10 to 14 days).
Midline placed 10/30
ID on board
# ESLD
# routine paracentesis weekly
continue furosemide/spironolactone, decrease Aldactone to 12.5 due to low BP
continue lactulose/rifaximin
thiamine daily
# Chronic Anemia with h/o esophageal varices and anemia.
No acute bleeding
continue iron supplementation
continue ppi daily
s/p 1 unit PRBC transfusion, Hgb improved to 8.2 today
# Mild Hyponatremia
s/p iv fluid in ED
cont free water restriction
Sodium level 132 today
# Hypokalemia
replete K
DVT PPX - SCDs for now
Code Status - Full Code
DW RN
Anticipated Discharge: Today
Subjective/Interval History
-
Date of Service: November 01, 2024
Objective Data
-
Labs:
Laboratory Results
11/01/24
05:43
WBC 3.6 L
Hgb 8.2 L
Hct 24.1 L
Plt Count 63 L
Sodium 132 L
Potassium 3.8
Chloride 104
Carbon Dioxide 21 L
BUN 17
Creatinine 0.8
Glucose 80
Calcium 7.8 L
Vital Signs:
Vital Signs
Temp Pulse Resp BP Pulse Ox
37.1 C 84 17 98/47 94
11/01/24 07:43 11/01/24 08:17 11/01/24 07:43 11/01/24 08:17 11/01/24 09:32
I&O
10/31/24 11/01/24 11/02/24
06:59 06:59 06:59
Intake Total 1080 / 1080 600 / 600
Balance 1080 / 1080 600 / 600
Review of Systems
-
All other systems: Reviewed and negative
Physical Exam
-
General: Well Developed, No Apparent Distress, Comfortable and Conversant
Respiratory: Clear to Auscultation and Non Labored Respirations; Negative Accessory Resp Muscle Use
Cardiac: Regular Rhythm and S1/S2
GI: Soft, Nontender and Distended
Neuro: Awake, Alert, Oriented and AO x 3
Psych: Calm and Intact Judgement/Insight
Data Reviewed
-
Labs: Labs Reviewed by me and Discussed with Patient
--- NOTE | 2024-11-01 11:24 | W.PN.ID1 ---
Date of Service
Date of Service: November 01, 2024
Today's Communication
Continue current course of antibiotics.
Assessment / Plan
Fever
Normal white count with left shift
Recurrence of SBP
Advanced / End-stage Cirrhosis
Recent hx of ESBL SBP and bacteremia
- maintained on doxycycline prophylaxis
Hx Upper GI bleed
COPD
Hx Recurrent SBP
Hepatic encephalopathy
Hx of CVA
Recommendations:
Prior paracentesis suggestive of SBP. Cultures without growth.
Continue with ertapenem. Given recurrence, we will treat for a longer course (10 to 14 days).
Home infusion sheet has been given to case management.
����������������������������������������������������������
Chief Complaint
-: Other (SBP)
Subjective / Review of Systems
Review of Systems: No Fever and No Chills
Vital Signs / Physical Exam
Vital Signs
Vital Signs
Temp Pulse Resp BP Pulse Ox
98.8 F 84 17 98/47 94
11/01/24 07:43 11/01/24 08:17 11/01/24 07:43 11/01/24 08:17 11/01/24 09:32
Physical Exam
Constitutional: No Acute Distress, Comfortable, Chronically Ill and Non-toxic
Eyes: Sclera Anicteric
Pulmonary: Non Labored
Gastrointestinal: Non Tender and Non Distended
Extremities: Edema; Negative Cyanosis or Erythema
Neurological: AO x 3
Psychological: Calm
Objective Data
Lab Data
Lab Results
11/01/24 05:43
11/01/24 05:43
Estimated Creat Clear 100 ml/min 11/01/24 05:43
Lactic Acid 1.0 mmol/L (0.7-2.0) 10/29/24 05:39
Total Bilirubin 3.8 mg/dl (0.2-1.3) H 10/29/24 00:10
AST 37 U/L (17-59) 10/29/24 00:10
ALT 17 U/L (0-50) 10/29/24 00:10
Alkaline Phosphatase 90 U/L (38-126) 10/29/24 00:10
Most recent labs reviewed.
Micro Results:
10/29/24 07:58 Body Fluid Culture - Final
Peritoneal Fluid No Growth After 72 Hours
Gram Stain - Final
10/29/24 05:39 Blood Culture - Preliminary
Blood/Venous No Growth in 72 hours- Final report to follow
10/29/24 05:39 Blood Culture - Preliminary
Blood/Venous No Growth in 72 hours- Final report to follow
10/29/24 09:52 Urine Culture - Final
Urine NO GROWTH
10/29/24 00:10 Influenza Types A & B (FRACISCO) - Final
Nasal Swab Negative for Influenza A & B, NAAT
Negative results must be combined with clinical observations
and patient history.
Nucleic Acid Amplification test (NAAT)performed on the
SigFig platform.
Laboratory Tests
10/29/24
07:58
Fluid WBC 824
Fluid Mononuclear Cell 26.8
Fl Polymorphonucl Cell 73.2
Fluid Total Protein < 2.0
Fluid Albumin < 1.0
Fluid LDH < 90
Imaging:
10/29/2024 CXR (2 view): Improving aeration of the right base. No convincing focal infiltrates. No significant pleural effusions. No visualized pneumothorax.
[2024-11-01 11:49] VITALS: BP 101/58
[2024-11-01] MEDS: INVANZ 60 MG IV (12:59)
--- NOTE | 2024-11-01 14:14 | W.DCSUMMARY ---
Discharge Summary
Discharge Data
Date of Admission: 10/29/24
Date of Discharge: 11/01/24
-
Pending Results: No
Hospital Course
Principal Diagnosis:
Sepsis on admission due to spontaneous bacterial peritonitis (SBP)
Chronic Diagnoses:�
End-stage liver disease, on routine paracentesis every weekly
Chronic Anemia with history of esophageal varices and anemia.
Mild Hyponatremia
Consultations:�
Infectious disease
Procedures:�
Paracentesis this admission
Clinical course:�
This is a 59-year-old male with past medical history as stated above, who presented with fever for 1 day.
Of note, he had recent tooth extraction 2 days prior to admission.
He was also recently hospitalized with fever with presumed spontaneous bacterial peritonitis.
Problem 1:
Sepsis on admission due to SBP.
His blood cultures were negative.
He underwent routine paracentesis on 10/29/24, and 5300 cc ascitic fluid was removed.
His peritoneal fluid had a high white count (600 PMN) indicating SBP.
He was treated with Zosyn initially, and was discharged with Ertapenem via midline to continue home infusion, 10 to 14 days per ID.
Following ertapenem IV antibiotic treatment, he can continue with doxycycline 100 mg twice daily going forward indefinitely.
Due to hypotension, his prior to admission Aldactone was decreased from 25 to 12.5 mg daily
As for the rest of his medical problems, they were stable during his hospital stay.
Discharge Plan
-
Patient Disposition: Home with Home Care
Discharge Diagnosis/Procedures: Fever with spontaneous bacterial peritonitis
Condition: Fair
Diet: As tolerated and Restrict fluids to 48 oz
Activity: As tolerated
Driving Restrictions: Not until seen by your Dr
Referrals:
Drake Goss, [Family Provider] - in less than 1 week
Additional Discharge Medication Instructions: Continue IV Antibiotic Ertapenem for 10 to 14 days per ID.
Continue doxycycline 100 mg TWICE daily AFTER you have completed antibiotic with Ertapenem.
Decrease Aldactone to 12.5 mg daily due to low blood pressure.
Prescriptions:
New
spironolactone 25 mg Tablet
12.5 mg PO DAILY Qty: 30 0RF
Ertapenem [Invanz] 1000 MG
0.9% Sodium Chloride [Nss] 50 ML
120 mls/hr IV Q24H
Ordered By: Rain Pierce MD
Last Taken: 11/01/24 12:59 60 mls
Continued
thiamine HCl (vitamin B1) 100 mg tablet
100 mg PO DAILY
Breztri Aerosphere 160-9-4.8 mcg/actuation Hfa Aerosol Inhaler
2 inh INHALATION R BID
Xifaxan 550 mg Tablet
550 mg PO BID
magnesium oxide 400 mg magnesium Tablet
400 mg PO BID
lactulose 20 gram/30 mL Solution
20 g PO TID Qty: 2880 0RF
pantoprazole [Protonix] 40 mg tablet,delayed release (DR/EC)
40 mg PO BID
ondansetron HCl 4 mg Tablet
4 mg PO DAILYPRN PRN (Reason: nasuea)
lidocaine 4 % adhesive patch,medicated
1 patch topical DAILYPRN PRN (Reason: right knee and right shoulder)
miconazole nitrate [Miconazorb AF] 2 % powder
1 applic topical BID
tramadol 50 mg tablet
50 mg PO BIDPRN PRN (Reason: moderate-severe pain)
ferrous sulfate [FeroSul] 325 mg (65 mg iron) tablet
325 mg PO DAILY
Hemorrhoidal(PE-min oil-darling) 0.25-14-74.9 % ointment
1 applic GA BID
furosemide 20 mg tablet
20 mg PO DAILY
folic acid 1 mg Tablet
1 mg PO DAILY Qty: 30 0RF
nicotine 7 mg/24 hr Patch 24 Hour
7 mg transdermal DAILY Qty: 14 0RF
Changed
doxycycline hyclate 100 mg capsule
100 mg PO BID Qty: 60 0RF
Rx Instructions:
After you finish the IV antibiotic with Ertapenem
Discontinued
spironolactone 25 mg tablet
25 mg PO DAILY
Discharge Orders:
Discharge Patient (As Directed); Ordered 11/01/24
Ordered By: Rain Pierce
Discharge Date and Time
Print Language: UGANDAN
[2024-11-01 14:55] VITALS: BP 112/60
== END 2024-11-01 14:55 | disposition home health service (06) | DRG 371 ==
LOC: 2 NORTH 05:26
PROVIDERS: Emergency Medicine; Radiology Diagnostic Radiology; Urology; ADMITTING PHYSICIAN Internal Medicine; ATTENDING PHYSICIAN Internal Medicine; EMERGENCY PHYSICIAN Emergency Medicine; FAMILY PHYSICIAN Internal Medicine; OTHER PHYSICIAN Internal Medicine Infectious Disease
PROC: 0W9G3ZZ Drainage of Peritoneal Cavity, Percutaneous Approach (ICD-10-PCS; 2024-10-29)
PROC: 30233N1 Transfusion of Nonautologous Red Blood Cells into Peripheral Vein, Percutaneous Approach (ICD-10-PCS; 2024-10-30)
DX: K65.2 Spontaneous bacterial peritonitis (principal); A41.9 Sepsis, unspecified organism; I85.10 Secondary esophageal varices without bleeding; E87.1 Hypo-osmolality and hyponatremia; J44.0 Chronic obstructive pulmonary disease with (acute) lower respiratory infection; K76.6 Portal hypertension; K72.10 Chronic hepatic failure without coma; D64.9 Anemia, unspecified; K64.9 Unspecified hemorrhoids; K76.82 Hepatic encephalopathy; K70.31 Alcoholic cirrhosis of liver with ascites; D69.6 Thrombocytopenia, unspecified; F17.200 Nicotine dependence, unspecified, uncomplicated; F10.21 Alcohol dependence, in remission; Z86.19 Personal history of other infectious and parasitic diseases; Z86.73 Personal history of transient ischemic attack (TIA), and cerebral infarction without residual deficits; Z83.3 Family history of diabetes mellitus; I10 Essential (primary) hypertension; Z87.440 Personal history of urinary (tract) infections; Z11.52 Encounter for screening for COVID-19
CPT/HCPCS: 49083; 71046; 80048; 80053; 81003; 81015; 82042; 83605; 83615; 83735; 84157; 84300; 85025; 85027; 86850; 86900; 86901; 86920; 86922; 87015; 87040; 87070; 87086; 87205; 87502; 87811; 89051; 93005; 94640; 99285; J1335; P9016; P9047

== ENCOUNTER → 2024-11-05 07:59 | Outpatient (REF) | payer BC, SELFPAY ==
[2024-11-05 08:35] VITALS: BP 134/69; BP_SYST 80
[2024-11-05 09:30] VITALS: BP 120/57; BP_SYST 74
[2024-11-05 09:55] VITALS: BP 120/57
--- NOTE | 2024-11-05 10:13 | PTCARENOTE ---
0940 Labs for [facility] transplant team drawn from [facility] at request of lab personnel. States they are unable to draw from [facility]line. Sterile technique used, flsuhed with 10ml NSS post draw. Lab confirmed tubes necessary for specimens. Transported to
lab and reviewed orders with staff.
[2024-11-05 10:20] LABS: % Basophils 0.6 % (0-2); % Eosinophils 5.8 % (0-6); % Lymphocytes 20.7 % (20.5-51.1); % Monocytes 8.1 % (1.7-9.3); % Neutrophils 63.8 % (42.2-75.2); Absolute Eosinophils 0.2 10^3/uL (0-0.7); Absolute Lymphocytes 0.6 10^3/uL (1.2-3.4); Absolute Monocytes 0.3 10^3/uL (0.1-0.6); Hematocrit 24.3 % (39.0-52.0); Hemoglobin 7.9 g/dL (13.0-18.0); Mean Corp Hgb Conc. 32.5 g/dL (33.0-37.0); Mean Corpuscular Hgb 32.8 pg (27.0-31.0); Mean Corpuscular Volume 100.8 fL (80.0-94.0); Mean Platelet Volume 10.2 fL (7.4-10.4); Nucleated Red Blood Cells % 0 % (-); Platelet Count 58 10^3/uL (130-400); Red Blood Cell Count 2.41 10^6/uL (4.70-6.10); Red Cell Dist. Width 16.7 % (11.5-14.5); White Blood Cell Count 3.1 10^3/uL (4.8-10.8)
[2024-11-05 10:28] LABS: INR 1.54
[2024-11-05 10:29] LABS: ALT (SGPT) 24 U/L (0-50); AST (SGOT) 51 U/L (17-59); Albumin 2.7 g/dl (3.5-5.0); Alkaline Phosphatase 173 U/L (38-126); Blood Urea Nitrogen 16 mg/dl (9-20); Calcium 8.1 mg/dl (8.4-10.2); Carbon Dioxide 25 mmol/L (22-30); Chloride 104 mmol/L (98-107); Direct Bilirubin 0.6 mg/dl (0.0-0.4); Glucose 94 mg/dl (70-99); Potassium 3.7 mmol/L (3.5-5.1); Sodium 134 mmol/L (135-145); Total Bilirubin 2.9 mg/dl (0.2-1.3); eGFR > 60.00
[2024-11-05 10:58] LABS: Body Fluid Mononuclear 89.1 %; Body Fluid Polymorphonuclear 10.9 %; Body Fluid WBC 92 /CUMM
[2024-11-05 11:00] LABS: Body Fluid Second Tech ASW
[2024-11-05 14:27] LABS: Amphetamines Negative (Negative); Barbiturates Negative (Negative); Benzodiazepines Negative (Negative); Buprenorphine Negative (Negative); Cocaine Negative (Negative); Methadone Negative (Negative); Methamphetamines Negative (Negative); Opiates Negative (Negative); Phencyclidine Negative (Negative)
[2024-11-05 14:28] LABS: Marijuana Negative (Negative); Tricyclic Antidepressants Negative (Negative)
== END ==
LOC: RADI 07:59
PROVIDERS: ATTENDING PHYSICIAN Nurse Practitioner Adult Health; FAMILY PHYSICIAN Internal Medicine; OTHER PHYSICIAN Internal Medicine Transplant Hepatology
DX: R18.8 Other ascites (principal)
CPT/HCPCS: 36415; 49083; 80053; 80306; 82248; 85025; 85610; 87015; 87070; 87205; 89051

== ENCOUNTER 2024-11-05 10:09 | Outpatient (RCR) | payer BC, SELFPAY ==
[2024-11-05] MEDS: FLEXBUMIN 100 IV (10:27)
[2024-11-05 10:28] VITALS: BP 121/56
[2024-11-05] MEDS: FLEXBUMIN 50 IV (12:18)
[2024-11-05 12:19] VITALS: BP 126/59
[2024-11-05 13:13] VITALS: BP 126/58
== END 2024-11-06 13:05 | disposition home or self-care (01) ==
LOC: OID 10:09
PROVIDERS: ATTENDING PHYSICIAN Nurse Practitioner Adult Health; FAMILY PHYSICIAN Internal Medicine
DX: K70.31 Alcoholic cirrhosis of liver with ascites (principal); B18.2 Chronic viral hepatitis C; D64.9 Anemia, unspecified; D69.6 Thrombocytopenia, unspecified; K76.82 Hepatic encephalopathy; E87.1 Hypo-osmolality and hyponatremia
CPT/HCPCS: 36415; 49083; 80053; 80306; 82248; 85025; 85610; 87015; 87070; 87205; 89051; 96365; 96366; P9047

== ENCOUNTER → 2024-11-12 08:02 | Outpatient (REF) | payer BC, SELFPAY ==
[2024-11-12 08:15] VITALS: BP 125/67; BP_SYST 93
[2024-11-12 10:43] LABS: Body Fluid Mononuclear 90.6 %; Body Fluid Polymorphonuclear 9.4 %; Body Fluid WBC 64 /CUMM
[2024-11-12 11:15] LABS: Body Fluid Second Tech AMA
== END ==
LOC: RADI 08:02
PROVIDERS: ATTENDING PHYSICIAN Nurse Practitioner Adult Health; FAMILY PHYSICIAN Internal Medicine
DX: R18.8 Other ascites (principal)
CPT/HCPCS: 49083; 87015; 87070; 87205; 89051

== ENCOUNTER 2024-11-15 22:03 | Inpatient (IN) | payer BC, SELFPAY ==
[2024-11-15] VITALS (9 sets, daily range): BP systolic 118–137; BP diastolic 60–72; BMI 25.7
[2024-11-15 16:43] LABS: % Basophils 0.3 % (0-2); % Eosinophils 1.1 % (0-6); % Immature Granulocytes 0.3 % (0-0.5); % Lymphocytes 8.8 % (20.5-51.1); % Monocytes 2.9 % (1.7-9.3); % Neutrophils 86.6 % (42.2-75.2); Absolute Eosinophils 0.1 10^3/uL (0-0.7); Absolute Lymphocytes 0.6 10^3/uL (1.2-3.4); Absolute Monocytes 0.2 10^3/uL (0.1-0.6); Absolute Neutrophils 5.7 10^3/uL (1.4-6.5); Hemoglobin 8.1 g/dL (13.0-18.0); Mean Corp Hgb Conc. 35.2 g/dL (33.0-37.0); Mean Corpuscular Hgb 34.9 pg (27.0-31.0); Mean Corpuscular Volume 99.1 fL (80.0-94.0); Mean Platelet Volume 11.3 fL (7.4-10.4); Nucleated Red Blood Cells % 0 % (-); Platelet Count 114 10^3/uL (130-400); Red Blood Cell Count 2.32 10^6/uL (4.70-6.10); Red Cell Dist. Width 17.2 % (11.5-14.5); White Blood Cell Count 6.6 10^3/uL (4.8-10.8)
[2024-11-15] MEDS: DILAUDID 1 MG IV (17:16)
[2024-11-15 17:21] LABS: ALT (SGPT) 18 U/L (0-50); AST (SGOT) 45 U/L (17-59); Albumin 3.3 g/dl (3.5-5.0); Alkaline Phosphatase 107 U/L (38-126); Blood Urea Nitrogen 35 mg/dl (9-20); Calcium 8.5 mg/dl (8.4-10.2); Carbon Dioxide 22 mmol/L (22-30); Chloride 102 mmol/L (98-107); Estimated Creatinine Clearance 83 ml/min; Glucose 122 mg/dl (70-99); Sodium 133 mmol/L (135-145); Total Bilirubin 3.7 mg/dl (0.2-1.3); Total Protein 5.6 g/dl (6.3-8.2); eGFR > 60.00
[2024-11-15 17:22] LABS: Lipase 239 U/L (23-300)
[2024-11-15] MEDS: NSS 1000 IV ×2 (17:23→19:26)
[2024-11-15] MEDS: PROTONIX IV 80 MG IV (17:23)
--- NOTE | 2024-11-15 17:49 | ED.GENMED ---
History of Present Illness
General
Chief Complaint: Abdominal Pain
Source: patient, records and spouse
Exam Limitations: none
Time Seen by Provider: 11/15/24 16:48
Nursing documentation reviewed up to this point in time: agreed with
History of Present Illness
History of Present Illness:
59-year-old male with a past medical history of COPD, cirrhosis of the liver, distant history of alcohol abuse who presents to the ER with his for evaluation of black stools, abdominal pain. Of note, patient was admitted to this hospital 10/29
until 11/01 for sepsis secondary to SBP. He had a midline in place for IV antibiotics on discharge and recently completed his course of IV antibiotics. Patient presents today for evaluation of abdominal pain and dark stools�he says symptoms
started yesterday and have been constant and worsening today. He reports diffuse pain somewhat worse on the left side. Worse with palpation worse with movement. He reports associated multiple dark black bowel movements. He denies any vomiting.
He denies any dizziness, lightheadedness, shortness of breath. He denies any other complaints. He does have prior history of upper GI bleeding related to his cirrhosis. Of note patient did have some anemia earlier this week as an outpatient and
his says that he received 1 unit of PRBCs a few days ago.
Past History
Past History
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 GI bleed, portal gastropathy, hemorrhoids, umbilical hernia, CVA)
ED Past Surgical History: Other
Social History
Tobacco: Smoker
Alcohol: Former
Drug: None
Personal:
Living: with family
Employment: Employed
Family History
Family History: Diabetes and Other
Review of Systems
Review of Systems
All Other Systems: ROS reviewed and negative except as documented in HPI and ROS
Constitutional: Denies fever
Respiratory: Denies cough or trouble breathing
Cardiac: Denies chest pain
ABD/GI: Reports abdominal pain, diarrhea and black stools; Denies nausea or vomiting
: Denies flank pain
Musculoskeletal: Denies neck pain or back pain
Neurological: Denies dizzy or headache
Phy Exam
Physical Exam
Physical Exam:
General: Awake, alert, oriented x3; no acute distress
Head: Normocephalic, atraumatic
Eyes: Faint scleral icterus
Throat: Airway intact, handling secretions
Neck: Trachea midline, supple without meningismus
Lungs: Somewhat diminished at the lung bases bilaterally but otherwise clear, normal respiratory rate and normal work of breathing, normal pulse ox
Heart: Tachycardia with regular rhythm, no murmurs, gallops, or rubs
Abd: Tense and distended with positive fluid wave; diffusely tender to the touch; small soft and reducible umbilical hernia
Rectal: Dark brown stool, Hemoccult positive
Neuro: No gross deficits
Extremities: Warm and well-perfused
Scores
Heart Failure Risk
Heart Failure Risk Score: Not Applicable
Heart Score for Chest Pain Patients
STEMI patient?: Not applicable
Withdrawal Assessment of Alcohol
Withdrawal Assessment Completed?: Not applicable
Course
Orders/Labs/Results
Orders:
Orders
11/15/24 16:29
Electrocardiogram (*1) Urgent
Reason for Study: Abdominal Pain
EKG- Treatment ONCE
11/15/24 16:30
Type+Screen Urgent
Complete Blood Count/With Diff Urgent
Comprehensive Metabolic Panel Urgent
Lipase Urgent
11/15/24 17:11
HYDROmorphone [Dilaudid] 1 mg IV NOW STA
Pantoprazole [Protonix IV] 80 mg IV NOW STA
11/15/24 17:12
0.9% Sodium Chloride 1000 ml [Nss] 1,000 ml IV BOLUS
11/15/24 17:22
Lidocaine 1%/Epinephrine [Xylocaine 1% with Epinephrine] 20 ml .ROUTE .[facility] ONE
Lidocaine/Epinephrine/Tetracai [Let Topical Anesthetic Gel] 3 ml .ROUTE .[facility] ONE
11/15/24 17:35
CT Abd/pelvis W Iv Cont Urgent
Comment:
Reason For Exam: abd pain, tachycardia
11/15/24 17:36
Body Fluid Albumin Routine
Fluid Source: Peritoneal (Ascites)
Date Specimen was Collected: 11/15/24
Time Specimen was Collected: 17:35
Body Fluid Cell Count Routine
What is the Body Fluid: peritoneal fluid
Date Specimen was Collected: 11/15/24
Time Specimen was Collected: 17:35
Comment: post procedure
Body Fluid Protein Routine
Fluid Source: Peritoneal (Ascites)
Date Specimen was Collected: 11/15/24
Time Specimen was Collected: 17:35
Fluid Culture with Gram Stain Routine
LOVE Source: Peritoneal Fluid
Specimen Description:
Date Specimen was Collected: 11/15/24
Time Specimen was Collected: 17:35
Comment: Post Procedure
11/15/24 18:43
CefTRIAXone [Rocephin] 1,000 mg IV NOW STA
Octreotide [Sandostatin] 50 mcg IV ONCE ONE
11/15/24 19:24
0.9% Sodium Chloride 1000 ml [Nss] 1,000 ml IV BOLUS
Morphine Sulfate 2 mg IV NOW STA
11/15/24 20:42
Prothrombin Time Urgent
11/15/24 20:45
Blood Culture Q30M
LOVE Source: Blood/Venous
Specimen Description:
11/15/24 21:08
INFECTIOUS DISEASE CONSULT Routine
Consulting Provider: Charley Monique
Was physician already notified: Yes
11/15/24 21:09
Ertapenem 1 gram IVPB NOW Ertapenem [Invanz] 1,000 mg 0.9% Sodium Chloride [Nss] 50 ml IV NOW
11/15/24 21:15
Blood Culture Q30M
LOVE Source: Blood/Venous
Specimen Description:
Abnormal Lab Results
11/15/24
16:30
RBC 2.32 L 10^6/uL
(4.70-6.10)
Hgb 8.1 L D g/dL
(13.0-18.0)
Hct 23.0 L %
(39.0-52.0)
MCV 99.1 H fL
(80.0-94.0)
MCH 34.9 H pg
(27.0-31.0)
RDW 17.2 H %
(11.5-14.5)
Plt Count 114 L D 10^3/uL
(130-400)
MPV 11.3 H fL
(7.4-10.4)
Absolute Lymphs (auto) 0.6 L 10^3/uL
(1.2-3.4)
Neutrophils % 86.6 H %
(42.2-75.2)
Lymphocytes % 8.8 L %
(20.5-51.1)
Sodium 133 L mmol/L
(135-145)
BUN 35 H mg/dl
(9-20)
Glucose 122 H mg/dl
(70-99)
Total Bilirubin 3.7 H mg/dl
(0.2-1.3)
Total Protein 5.6 L g/dl
(6.3-8.2)
Albumin 3.3 L g/dl
(3.5-5.0)
11/15/24 16:30
11/15/24 16:30
Vital Signs
Initial and Last Documented VS:
Initial Vital Signs
Pulse Resp BP Pulse Ox
110 18 118/60 96
11/15/24 16:05 11/15/24 16:05 11/15/24 16:05 11/15/24 16:05
Last Documented Vital Signs
Temp Pulse Resp BP Pulse Ox
37.2 C 116 21 136/67 95
11/15/24 18:57 11/15/24 20:00 11/15/24 20:00 11/15/24 20:00 11/15/24 20:13
Procedures
Incision/Drainage/Joint Aspiration
Abdomen:
Anethesia: 1% Lidocaine with Epi
Preparation: cleaned with Betadine
Type of procedure: aspiration (paracentesis)
Nature of site: other (abdominal ascites)
How much fluid was obtained?: number in mls (50cc)
Fluid description: cloudy and yellowish
Treatment: bandaid applied
Additional information:
diagnostic paracentesis performed using ultrasound guidance using usual sterile technique; puncture site in RLQ
IV Access
Indication: Emergent access required, RN unable to obtain and Physician skill needed
Performed by:: Lior Woods MD
Site:: right forearm
Gauge:: 20G
Ultrasound Guidance: Yes
MDM/Problems Addressed
Differential Diagnosis Includes:
Abdominal pain: SBP, enteritis, diverticulitis, constipation
Black stools: Variceal bleed, ulcer, Stratus, AVM, etc
MDM/Problems Addressed:
59-year-old male with an extensive medical history as noted significant for cirrhosis presents to the ER for abdominal pain and GI bleeding. He had recent admission and prolonged IV antibiotic therapy for SBP. Vitals and exam as above. He is
Hemoccult positive here. I was able to place a large-bore IV labs sent off including a CBC and a CMP, type and screen. Performed a diagnostic paracentesis and fluid studies sent off. Will send for a CT abdomen pelvis. Will treat pain. Will give
Protonix, octreotide, ceftriaxone for upper GI bleeding and SBP prophylaxis�prior endoscopy in September 2024 showed small variceal bleed. Plan for admission pending initial assessment.
Labs reviewed: CBC shows anemia to 8.1�increased after 1 unit of PRBCs as an outpatient as described above. Platelets 114. CMP shows BUN 35 creatinine 1�BUN elevated consistent with upper GI bleeding. Fluid studies for SBP shows WBC 6400 with 89%
PMNs�total PMNs well over 250 concerning for diagnosis of SBP. Covered with ceftriaxone initially but given his recent history and history of ESBL E. coli I did discuss with infectious disease who recommended resuming ertapenam. CT report reviewed
shows no other acute pathology. Will admit to the hospital at this point for abdominal pains suspect secondary to recurrent SBP and acute upper GI bleeding. Case discussed with hospitalist for admission.
Chronic conditions affecting care:
Cirrhosis
*Radiology
Radiology exam reviewed: radiology read reviewed
*Pulse Oximetry
Patient hypoxic: no
*Critical Care Note
Total Time (30-74mins, 75-104mins- exclusive of procedures): Not Applicable
Data Reviewed
Review of Other/Old Records Reveals: Labs, Records, Operative Reports and Discharge Summary
Source: patient, records and spouse
Patient Management
Discussion with other providers: Hospitalist (Discussed with hospitalist) and Benefits Consultant (Discussed with infectious disease)
Escalation/DeEscalation of care consider admission/obs:
Admission indicated
ED Attending Note
-
Portions of this chart may have been created with voice recognition software.� Occasional wrong word or��sound alike� substitutions may have occurred due to the inherent limitations of voice recognition software.
Discharge Plan
Departure
Patient Disposition: Admit
Date of Disposition: 11/15/24
Time of Disposition: 21:11
Admit to doctor: [place]
Presentation/result/management discussed w/ accepting MD/DO: Hospitalist
Discharge Problem:
Spontaneous bacterial peritonitis, Acute upper GI bleed
Prescriptions:
No Action
thiamine HCl (vitamin B1) 100 mg tablet
100 mg PO DAILY
Breztri Aerosphere 160-9-4.8 mcg/actuation Hfa Aerosol Inhaler
2 inh INHALATION R BID
Xifaxan 550 mg Tablet
550 mg PO BID
magnesium oxide 400 mg magnesium Tablet
400 mg PO BID
lactulose 20 gram/30 mL Solution
20 g PO TID Qty: 2880 0RF
pantoprazole [Protonix] 40 mg tablet,delayed release (DR/EC)
20 mg PO BID
ondansetron HCl 4 mg Tablet
4 mg PO DAILYPRN PRN (Reason: nasuea)
lidocaine 4 % adhesive patch,medicated
1 patch topical DAILYPRN PRN (Reason: right knee and right shoulder)
miconazole nitrate [Miconazorb AF] 2 % powder
1 applic topical BID
tramadol 50 mg tablet
50 mg PO BIDPRN PRN (Reason: moderate-severe pain)
ferrous sulfate [FeroSul] 325 mg (65 mg iron) tablet
325 mg PO DAILY
Hemorrhoidal(PE-min oil-darling) 0.25-14-74.9 % ointment
1 applic [place] BID
furosemide 20 mg tablet
20 mg PO DAILY
folic acid 1 mg Tablet
1 mg PO DAILY Qty: 30 0RF
nicotine 7 mg/24 hr Patch 24 Hour
7 mg transdermal DAILY Qty: 14 0RF
spironolactone 25 mg Tablet
12.5 mg PO DAILY Qty: 30 0RF
Ertapenem [Invanz] 1000 MG
0.9% Sodium Chloride [Nss] 50 ML
120 mls/hr IV Q24H
Ordered By: Rain Pierce MD
Last Taken: Unknown
doxycycline hyclate 100 mg capsule
100 mg PO BID Qty: 60 0RF
Rx Instructions:
After you finish the IV antibiotic with Ertapenem
Referrals:
Drake Goss DO [Family Provider] -
Interventions
Interventions:
*Risk Screen - Suicide Last Done: 11/15/24 16:05
*General Assessment Last Done: 11/15/24 16:05
*Neglect/Abuse Screening Last Done: 11/15/24 16:05
ED- Fall Risk Assessment Last Done: 11/15/24 20:13
*ED COVID-19 Vaccine History Last Done: 11/15/24 16:40
KU-[id number]-Ymkwtdhzyg Assessment Last Done: 11/15/24 20:13
Discharge Date and Time
Print Language: ROMANSH
[2024-11-15 18:12] LABS: Body Fluid Mononuclear 10.7 %; Body Fluid Polymorphonuclear 89.3 %; Body Fluid WBC 6420 /CUMM
[2024-11-15 18:18] LABS: Body Fluid Second Tech EYM
[2024-11-15 18:22] LABS: Body Fluid Albumin 3.4 g/dl; Body Fluid Protein 5.8 g/dl
[2024-11-15] MEDS: ROCEPHIN 1000 MG IV (19:25)
[2024-11-15] MEDS: SANDOSTATIN 50 MCG IV (19:25)
[2024-11-15] MEDS: MORPHINE SULFATE 2 MG IV (19:31)
[2024-11-15 21:34] LABS: INR 1.22
--- NOTE | 2024-11-15 21:48 | HPS.HSE ---
Addendum entered and electronically signed by Marky Meza MD 11/15/24 22:12:
Albumin started.
Original Note:
Family Physician
-
Family Physician: Drake Goss
Chief Complaint
-
dark stools, abdominal pain
History of Present Illness
59-year-old male past medical history of cirrhosis with end-stage liver disease secondary to alcoholic cirrhosis, recurrent ascites, recurrent SBP, hepatic encephalopathy, upper GI bleeding, history of gastric varices, COPD presenting with black
stools and abdominal pain. Patient was recently admitted from 10/29 until 11/01 for sepsis secondary to SBP. He had midline in place for IV antibiotics and discharged and completed IV antibiotics and subsequently put on doxycycline to be continued
indefinitely.
He presents with abdominal pain and dark stools which apparently started yesterday and been worsening today. He has diffuse pain worse on the left side. Denies dizziness or lightheadedness or shortness of breath. He had an episode of vomiting
today and also an episode of diarrhea.
Patient reportedly received 1 unit of PRBCs a few days ago for anemia which was discovered as outpatient.
He denies any alcohol use. He does smoke occasionally.
Medical History
Past Medical History
Past Medical History: Reports Other (cirrhosis with end-stage liver disease secondary to alcoholic cirrhosis, recurrent ascites, recurrent SBP, hepatic encephalopathy, upper GI bleeding, history of gastric varices, COPD)
Past Surgical History: Reports None
Social History
Tobacco: Smoker
Alcohol: Former
Drug: None
Family History
Family History: Not pertinent
Allergies / Home Medications
Allergies reflects when Allergies were last updated in [employer].
Home Medications with original date entered in [employer]
Allergy/Medication List:
Allergies
Allergy/AdvReac Type Severity Reaction Status Date / Time
No Known Allergies Allergy Verified 11/12/24 10:46
Home Medications
thiamine HCl (vitamin B1) 100 mg tablet 100 mg PO DAILY Supplement 03/13/24
budesonide 160 mcg-glycopyr 9 mcg-formot 4.8 mcg/actuation HFA inhaler (Breztri Aerosphere) 2 inh inhalation R BID Lung/Breathing Issues 04/11/24
magnesium oxide 400 mg PO BID Supplement 06/28/24
rifaximin 550 mg tablet (Xifaxan) 550 mg PO BID hepatic encephalopathy 06/28/24
lactulose 20 gram/30 mL oral solution 20 g (30 mL) PO TID Liver issues #2,880 mL 07/01/24
pantoprazole 40 mg tablet,delayed release (Protonix) 40 mg PO BID Gastrointestinal Issue 08/02/24
lidocaine 4 % topical patch 1 patch topical DAILYPRN PRN right knee and right shoulder 09/08/24
miconazole nitrate 2 % topical powder (Miconazorb AF) 1 applic topical BID groin/scrotum 09/08/24
ondansetron HCl 4 mg tablet 4 mg PO DAILYPRN PRN nasuea 09/08/24
phenylephrine 0.25 %-mineral oil 14 %-petrolatm 74.9 % rectal ointment (Hemorrhoidal(phenyleph-min oil-petrolat)) 1 applic MN BID hemorrhoids 09/26/24
tramadol 50 mg tablet 50 mg PO BIDPRN PRN moderate-severe pain 09/26/24
furosemide 20 mg tablet 20 mg PO DAILY Fluid retention/Swelling 10/06/24
folic acid 1 mg tablet 1 mg PO DAILY #30 tabs 10/23/24
nicotine 7 mg/24 hr daily transdermal patch 7 mg transdermal DAILY #14 ea 10/23/24
doxycycline hyclate 100 mg capsule 100 mg PO BID #60 caps 11/01/24
spironolactone 25 mg tablet 12.5 mg (1/2 x 25 mg) PO DAILY #30 tabs 11/01/24
zinc sulfate 50 mg zinc (220 mg) tablet 50 mg PO DAILY 11/15/24
Review of Systems
-
History Source: Patient
A 12 point ROS was completed and negative except as noted: Yes
Constitutional: Reports No Symptoms
EENT: Reports No Symptoms
Respiratory: Reports No Symptoms
Cardiac: Reports No Symptoms
Abdomen/GI: Reports See HPI
: Reports No Symptoms
Musculoskeletal: Reports No Symptoms
Skin: Reports No Symptoms
Neurological: Reports No Symptoms
Endocrine: Reports No Symptoms
Hematologic/Lymphatic: Reports No Symptoms
Psych: Reports No Symptoms
Physical Exam
Vital Signs
Vital Signs
Temp Pulse Resp BP Pulse Ox
98.9 F 116 21 136/67 95
11/15/24 18:57 11/15/24 20:00 11/15/24 20:00 11/15/24 20:00 11/15/24 20:13
Physical Exam
General: Well Developed, Well Nourished and No Apparent Distress
HEENT: NormoCephalic, Moist mucous membranes and Atraumatic
Respiratory: Clear
Cardiac: S1/S2 and Regular Rhythm; No Murmur or Rub
GI: Soft, Non Tender, Non Distended and Normal Bowel Sounds; No Organomegaly
Rectal: Deferred by Provider
Musculoskeletal: No Clubbing, No Cyanosis and No Edema
Skin: No Rash
Neuro: Nonfocal/grossly intact
Laboratory Results
-
11/15/24 16:30
11/15/24 16:30
Laboratory Results
PT 16.0 Sec (11.4-14.6) H 11/15/24 21:17
INR 1.22 11/15/24 21:17
Total Bilirubin 3.7 mg/dl (0.2-1.3) H 11/15/24 16:30
AST 45 U/L (17-59) 11/15/24 16:30
ALT 18 U/L (0-50) 11/15/24 16:30
Alkaline Phosphatase 107 U/L (38-126) 11/15/24 16:30
Lipase 239 U/L (23-300) 11/15/24 16:30
Data Reviewed
-
Lab Data: Labs Reviewed by me
Old Records: Reviewed
Impression/Plan
-
IMPRESSION:
PLAN:
# Decompensated alcoholic cirrhosis with recurrent ascites secondary to SBP
-Patient normally receives paracentesis every Tuesday
-Diagnostic paracentesis shows white blood cell of 6400 with 89% PMNs, ascites culture sent
-CT abdomen pelvis shows extensive ascites
-Check blood cultures
-Ertapenem
-ID consulted
-IR for full paracentesis
-Will require albumin tomorrow
-Continue Lasix, spironolactone
-Dilaudid for pain
# Recurrent upper GI bleeding likely secondary to portal hypertensive gastropathy
# History of gastric varices status post gastric artery coiling 09/2024
# Chronic macrocytic anemia secondary to liver disease
-Thought to be secondary to portal hypertensive gastropathy in the past
-Hemoglobin stable at 8.1
-N.p.o.
-Protonix drip
-Octreotide drip
-GI consulted
# History of hepatic encephalopathy
-Continue lactulose, Xifaxan
# Chronic severe thrombocytopenia secondary to liver disease
-Platelets stable
Hepatitis C status post treatment with Epclusa
History of colon polyps with polyp removal
History of hemorrhoids
Portal hypertension
Chronic pain
Essential hypertension
GERD
History of skin cancer status post Mohs surgery
Anxiety
COPD
Occasional smoker
-Continue nicotine patch
Full code
DVT prophylaxis�SCDs
N.p.o.
[2024-11-15] MEDS: INVANZ 60 MG IV (22:46)
[2024-11-16] VITALS (17 sets, daily range): BP systolic 95–129; BP diastolic 52–74; BMI 27.8
[2024-11-16] MEDS: FLEXBUMIN 100 IV ×5 (00:31→23:54)
[2024-11-16] MEDS: FLUSH (NSS) 1 FLUSH IV (00:31)
[2024-11-16] MEDS: PROTONIX 100 IV ×2 (02:04→17:07)
[2024-11-16] MEDS: DUPHALAC/CHRONULAC PO ×3 (02:04→16:19)
[2024-11-16] MEDS: MORPHINE SULFATE 2 MG IV ×5 (02:08→21:07)
[2024-11-16 07:15] LABS: ALT (SGPT) 16 U/L (0-50); AST (SGOT) 35 U/L (17-59); Albumin 2.8 g/dl (3.5-5.0); Alkaline Phosphatase 64 U/L (38-126); Blood Urea Nitrogen 42 mg/dl (9-20); Calcium 7.9 mg/dl (8.4-10.2); Carbon Dioxide 17 mmol/L (22-30); Chloride 106 mmol/L (98-107); Estimated Creatinine Clearance 49 ml/min; Glucose 113 mg/dl (70-99); Potassium 4.6 mmol/L (3.5-5.1); Sodium 135 mmol/L (135-145); Total Bilirubin 3.2 mg/dl (0.2-1.3); Total Protein 4.9 g/dl (6.3-8.2)
[2024-11-16 07:46] LABS: % Basophils 0.1 % (0-2); % Immature Granulocytes 0.5 % (0-0.5); % Lymphocytes 6.9 % (20.5-51.1); % Monocytes 4.7 % (1.7-9.3); % Neutrophils 87.8 % (42.2-75.2); Absolute Lymphocytes 0.5 10^3/uL (1.2-3.4); Absolute Monocytes 0.4 10^3/uL (0.1-0.6); Absolute Neutrophils 6.5 10^3/uL (1.4-6.5); Hematocrit 18.1 % (39.0-52.0); Hemoglobin 6.1 g/dL (13.0-18.0); Mean Corp Hgb Conc. 33.7 g/dL (33.0-37.0); Mean Corpuscular Hgb 33.2 pg (27.0-31.0); Mean Corpuscular Volume 98.4 fL (80.0-94.0); Mean Platelet Volume 10.3 fL (7.4-10.4); Nucleated Red Blood Cells % 0 % (-); Platelet Count 63 10^3/uL (130-400); Red Blood Cell Count 1.84 10^6/uL (4.70-6.10); Red Cell Dist. Width 17.6 % (11.5-14.5); White Blood Cell Count 7.4 10^3/uL (4.8-10.8)
[2024-11-16] MEDS: SPIRIVA RESPIMAT 2.5 MCG 2 PUFF INH (07:51)
[2024-11-16] MEDS: SYMBICORT 160/4.5 MCG INHALER 2 PUFF INH ×2 (07:52→19:21)
[2024-11-16] MEDS: MAGNESIUM OXIDE 500 MG PO ×2 (08:34→21:19)
[2024-11-16] MEDS: VITAMIN B1 100 MG PO (08:35)
[2024-11-16] MEDS: FOLVITE 1 MG PO (08:35)
[2024-11-16] MEDS: LASIX 20 MG PO (08:35)
[2024-11-16] MEDS: DESENEX/MITRAZOL/ZEASORB 1 APPLIC TOPICAL ×2 (08:36→21:18)
[2024-11-16] MEDS: SANDOSTATIN 500.6 MCG IV ×2 (08:37→23:18)
--- NOTE | 2024-11-16 08:51 | VNURNOTE ---
Chart reviewed. Patient is current with [facility] nursing. Will continue to follow hospital course and DC plans.
[2024-11-16] MEDS: ULTRAM 50 MG PO (08:54)
--- NOTE | 2024-11-16 10:29 | CON.GI ---
Addendum entered and electronically signed by Inge Fitzpatrick DO 11/16/24 12:31:
The patient was seen and examined by me independently in collaboration with the nurse practitioner.
Past medical history/social history/medications/allergies/family history reviewed.
Lab data and imaging data reviewed.
Cortez Mazariegos is a 59 y.o. male who is very well-known to GI with past medical history of decompensated HCV/EtoH Cirrhosis c/b bleeding gastric varices, intractable ascites, recurrent SBP, thrombocytoepnia and hepatic encephalopathy who presents
from skilled nursing with abdominal pain, distension and black tarry stool.
Patient follows with Dr. Weaver as well as Dr. Dan ([facility]), previously being considered for liver transplantation, however, due to +PETH as well as UDS with + Cocaine (possible false positive?) with UDS +meth 1 year ago, he was no
longer considered a candidate for transplantation. In follow-up, Dr. Dan had asked that patient complete outpatient therapy and produce 2 negative PETH s to be reconsidered for liver transplantation. During his most recent hospitalization last
month, patient's was considering palliative care due to his worsening decompensation, deconditioning and frequest hospital admission with likely no possibility of liver transplantation, however, after recent admission, wants to pursue all
care, hoping to meet requirements to be again, considered for OLT.
On exam, patient complaints of significant abdominal pain, diffusely tender to light palpation. He is distended with voluntary guarding. Diagnostic paracentesis positive for SBP, on ertapenem (was on doxy bid as outpatient). Hemoglobin initially at
baseline 8.1, dropped to 6.1 this morning, currently getting transfused with 1 unit PRBC, plans for EGD today.
Current MELD 3.0 = 21
#Recurrent SBP
- currently on ertapenem, was on doxycycline 100 mg p.o. twice daily as an outpatient
-Recieved 1.5 mg/kg albumin on day 1 (11/15), will need 2nd dose of 1 mg/kg tomorrow (day 3). If not clinically improving, will need to repeat tap and obtain additional studies to r/o secondary peritonitis
#Melena w/ history of bleeding PHG, GOV1 s/p Ultrasound guided gastric artery coiling procedure (09/2024)
-Hgb 6.1, transfuse with 1 unit PRBC, another unit on hold
-BUN 35 --> 42; Cr. 1.0 --> 1.7
-PPI gtt
-Octreotide gtt
-arleady on tx for SBP
-active T&C
-2 large bore peripheral gauge IVs
-plan for EGD, will give dose of reglan prior
-if recurrent variceal bleeding, will require transfer to tertiary care center for possible BRTO/TIPS
TYSON--
Cr. 1.0 --> 1.7
likely prerenal in setting of GI bleeding
hold diuretics
Check Gaby
Original Note:
Consultation
-
Date/Time Consultation Requested: 11/16/24 0026
Date/Time Consultation Performed: 11/16/24 1000
Requesting Provider: Dr. Meza
Performing Provider: Dr. Fitzpatrick/MARCIA Campo
Reason for Consultation: melena, SBP
Medical History
Chief Complaint / HPI
Chief Complaint: confusion
History of Present Illness:
59 y.o male well-known to GI group with past medical history significant for decompensated cirrhosis (HCV vs EtOH) with intractable ascites with weekly para, HE, GI bleeding by recurrent hospitalizations with HE secondary to acute on chronic GI
bleeding 2/2 PHG gastric varix, hx of prior post-polypectomy bleed, prior transfer to [place] for Ultrasound guided gastric artery coiling procedure (09/2024), chronic HCV (s/p treatment with Epclusa s/p SVR), CVA, HTN, COPD, and chronic
thrombocytopenia. Hx of SBP treated with ertapenem and converted to Doxycycline 100 mg BID as an outpatient, ecoli ESBL blood/peritoneal fluid, and UTI. He had a + tox screen for cocaine on admission in October, patient denied use. Patient had
repeat outpatient PETH testing that was negative. He is following up with Dr. Dan as an outpatient. The patient had his outpatient paracentesis on 11/12/2024 where 6.1 liters of yellow ascitic fluid was drained. The patient states that
approximately 3 days ago he started with acute onset of abdominal discomfort which he states is sharp, twisting and in his upper abdomen. Worse with movement. He also had associated black stools with this. He has some nausea. This morning he did
have an episode where he 'coughed up blood'. He denies any fevers, chills, hematochezia, dysphagia or odynophagia. Of note the patient did have a hemoglobin of 6.2 on 11/12/2024 and required 1 unit of packed red blood cells at that time. On arrival
to the emergency room on 11/15/2024 his hemoglobin was 8.1. This a.m. hemoglobin down to 6.1. Hematocrit 18.1, platelets 63, PT 16.0, INR 1.22, sodium 135, potassium 4.6, chloride 17, BUN 42, creatinine 1.7, glucose 113, total bilirubin 3.2, AST 35,
ALT 16, alk phos 64, albumin 2.8 stool is positive for occult blood.
Past Medical History
Past Medical History: Other ( )
Past Surgical History: Other (Mohs surgery)
Social History
Tobacco: Non-Smoker
Alcohol: Former (with recent PETH +)
Drug: Other (prior use in past )
Personal:
Living: With Family
Employment: Not Employed
Family History
Family History: Other (no family hx liver disease )
Allergies / Home Medications
Allergy/AdvReac Type Severity Reaction Status Date / Time
No Known Allergies Allergy Verified 11/12/24 10:46
�Medication �Instructions �Recorded
thiamine HCl (vitamin B1) 100 mg 100 mg PO DAILY Supplement 03/13/24
tablet
budesonide 160 mcg-glycopyr 9 2 inh inhalation R BID 04/11/24
mcg-formot 4.8 mcg/actuation HFA Lung/Breathing Issues
inhaler (Breztri Aerosphere)
magnesium oxide 400 mg PO BID Supplement 06/28/24
rifaximin 550 mg tablet (Xifaxan) 550 mg PO BID hepatic 06/28/24
encephalopathy
lactulose 20 gram/30 mL oral 20 g (30 mL) PO TID Liver issues 07/01/24
solution #2,880 mL
pantoprazole 40 mg tablet,delayed 40 mg PO BID Gastrointestinal Issue 08/02/24
release (Protonix)
lidocaine 4 % topical patch 1 patch topical DAILYPRN PRN right 09/08/24
knee and right shoulder
miconazole nitrate 2 % topical 1 applic topical BID groin/scrotum 09/08/24
powder (Miconazorb AF)
ondansetron HCl 4 mg tablet 4 mg PO DAILYPRN PRN nasuea 09/08/24
phenylephrine 0.25 %-mineral oil 1 applic OR BID hemorrhoids 09/26/24
14 %-petrolatm 74.9 % rectal
ointment
(Hemorrhoidal(phenyleph-min
oil-petrolat))
tramadol 50 mg tablet 50 mg PO BIDPRN PRN 09/26/24
moderate-severe pain
furosemide 20 mg tablet 20 mg PO DAILY Fluid 10/06/24
retention/Swelling
folic acid 1 mg tablet 1 mg PO DAILY #30 tabs 10/23/24
nicotine 7 mg/24 hr daily 7 mg transdermal DAILY #14 ea 10/23/24
transdermal patch
doxycycline hyclate 100 mg capsule 100 mg PO BID #60 caps 11/01/24
spironolactone 25 mg tablet 12.5 mg (1/2 x 25 mg) PO DAILY #30 11/01/24
tabs
zinc sulfate 50 mg zinc (220 mg) 50 mg PO DAILY 11/15/24
tablet
Review of Systems
-
All other systems: A 12 pt ROS was Negative except as stated above in HPI
Vital Signs
Temp Pulse Resp BP Pulse Ox
98.4 F 104 20 122/58 94
11/16/24 08:48 11/16/24 07:57 11/16/24 07:57 11/16/24 04:00 11/16/24 07:57
Physical Exam
Exam
General: No Apparent Distress
Respiratory: Clear (Anterior)
Cardiac: Regular Rhythm
GI: Soft, Tender (Diffuse tenderness mostly in upper abdomen), Distended (Softly distended) and Other (Positive ascites)
Skin: Warm and Dry
Neuro: AO x 3
Psych: Calm and Other (No asterixis)
Results
WBC 7.4 10^3/uL (4.8-10.8) 11/16/24 06:52
Hgb 6.1 g/dL (13.0-18.0) L* D 11/16/24 06:52
Hct 18.1 % (39.0-52.0) L* 11/16/24 06:52
MCV 98.4 fL (80.0-94.0) H 11/16/24 06:52
Plt Count 63 10^3/uL (130-400) L D 11/16/24 06:52
Absolute Neuts (auto) 6.5 10^3/uL (1.4-6.5) 11/16/24 06:52
PT 16.0 Sec (11.4-14.6) H 11/15/24 21:17
INR 1.22 11/15/24 21:17
Sodium 135 mmol/L (135-145) 11/16/24 06:52
Potassium 4.6 mmol/L (3.5-5.1) 11/16/24 06:52
Chloride 106 mmol/L (98-107) 11/16/24 06:52
Carbon Dioxide 17 mmol/L (22-30) L 11/16/24 06:52
BUN 42 mg/dl (9-20) H 11/16/24 06:52
Creatinine 1.7 mg/dL (0.7-1.3) H 11/16/24 06:52
Calcium 7.9 mg/dl (8.4-10.2) L 11/16/24 06:52
Total Bilirubin 3.2 mg/dl (0.2-1.3) H 11/16/24 06:52
AST 35 U/L (17-59) 11/16/24 06:52
ALT 16 U/L (0-50) 11/16/24 06:52
Alkaline Phosphatase 64 U/L (38-126) 11/16/24 06:52
Lipase 239 U/L (23-300) 11/15/24 16:30
Diagnostic Image Results:
CT of abdomen and pelvis with IV contrast:
IMPRESSION:
1). Cirrhosis with extensive ascites, splenomegaly and perisplenic varices
2). Umbilical and right inguinal hernias
3).There is stable 9 mm calculus at the right ureteropelvic junction without associated hydronephrosis
There is 2 mm nonobstructing right renal calculus
4). Degenerative disc disease at L5-S1
5). Delayed renal function
Prior GI Procedures:
09/2024 gastric art coiling procedure at [place] -- report pending
09/11/2024 EGD [facility] (Dr. Malcolm) : Normal esophagus. Type I isolated gastric varices (IGV 1, varices located in the fundus) without bleeding. Normal examined duodenum. No specimens collected.
09/09/24 EGD [facility] - Type 1 isolated gastric varices (IGV1, varices
located in the fundus) with a small amount of oozing
and stigmata of recent bleeding found in the gastric
fundus. This is the source of patient's presentation.
No endoscopic therapy was performed given large
isolated gastric varices as these were not contiguous
with the GE-junction
- Moderate portal hypertensive gastropathy
- Otherwise, normal stomach on direct and retroflexion
views
- Normal esophagus without any esophageal varices
- Small amount of red blood in the second portion of
the duodenum. No duodenal varices were visualized
- The examination was otherwise normal.
- No specimens collected.
colonoscopy 08/22/24 Charlotte Bunn MD Non-bleeding internal hemorrhoids were found during retroflexion. The
hemorrhoids were large.
Multiple diverticula were found in the sigmoid colon and descending
colon.
The exam was otherwise without abnormality.
Diffuse colopathy
Old ovesco clip seen in ascending colon
An 8 mm polyp was found in the sigmoid colon. The polyp was sessile.
Polypectomy was not attempted given recent GI bleeding.
repeat colon 6-12 month with fair prep and polyps removed
Small bowel enteroscopy 08/22/24 Charlotte Bunn MD
- Normal esophagus.
- Severe portal hypertensive gastropathy with active
bleeding. Treated with argon plasma coagulation (APC).
- 2 cm hiatal hernia.
- Normal examined duodenum.
- The examined portion of the jejunum was normal.
- No specimens collected.
EGD: 06/29/24 maci Gaviria MD - Normal esophagus.
- Portal hypertensive gastropathy.
- Normal examined duodenum.
- No specimens collected.
05/07/[address] Smith : - Hemorrhoids found on perianal exam.
- The examined portion of the ileum was normal.
- Foreign body ([employer] clip) at the hepatic flexure.
- Polypoid lesion at the hepatic flexure.
- Diverticulosis in the sigmoid colon and in the
descending colon.
- Internal hemorrhoids.
- No specimens collected.
Colonoscopy 04/13/2024-[facility] - One 15 to 18 mm polyp at the hepatic flexure,
removed using lift and cut and a hot snare and removed
with a cold snare. Resected and retrieved. Injected.
Treated with hot biopsy forceps. Ligated.
- One 4 mm polyp in the descending colon, removed with
a hot snare. Resected and retrieved. Clip was placed.
- Diverticulosis in the sigmoid colon, in the
descending colon and at the splenic flexure.
bx DC -TA and HF - HP polyp
EGD 04/13/2024� [facility] - No gross lesions in the entire esophagus. No varices.
- Z-line variable, 42 cm from the incisors.
- Portal hypertensive gastropathy.
- Normal examined duodenum.
- No specimens collected.
EGD:12/27/22 [facility] - Normal esophagus.
- Portal hypertensive gastropathy.
- Normal examined duodenum.
- No specimens collected.
Assessment / Plan
-
59 y.o male well-known to GI group with past medical history significant for decompensated cirrhosis (HCV vs EtOH) with intractable ascites with weekly para, HE, GI bleeding by recurrent hospitalizations with HE secondary to acute on chronic GI
bleeding 2/2 PHG gastric varix, hx of prior post-polypectomy bleed, prior transfer to [place] for Ultrasound guided gastric artery coiling procedure (09/2024), chronic HCV (s/p treatment with Epclusa s/p SVR), CVA, HTN, COPD, skin cancer status post
Mohs surgeryand chronic thrombocytopenia. Hx of SBP treated with ertapenem and converted to Doxycycline 100 mg BID as an outpatient, ecoli/ ESBL in blood/peritoneal fluid, and UTI. Following up with Dr. Ebenezer Dan at [place] [facility]
[place] who presents to the emergency room with 4-day history of abdominal discomfort and melena. Recent need for blood transfusion on 11/12/2023 as hemoglobin was 6.2. Found to have hemoglobin of 8.1 that went down to 6.1 this morning.
Continues with abdominal discomfort, melena, OB positive stool. Had 1 episode this morning where he either spit up or coughed up red blood. At the present time he continues on ertapenem. Pantoprazole drip. Octreotide drip. He is NPO. Discussed
with the patient as well as his Cherise. Blood consent signed and will give blood transfusion at present time. Plan on EGD today after 1 unit has been transfused. Hold on paracentesis until after EGD.
Discussed with his Cherise via telephone.
Impression:
Melena-> patient with history of PHG, gastric varix status post gastric artery coiling September 2024. Patient also recently started on doxycycline orally.
Acute on chronic anemia. Patient's baseline in the 7 range. Need for recent blood transfusion on 11/12/2023
Decompensated cirrhosis
SBP-> currently on ertapenem, was on doxycycline 100 mg p.o. twice daily as an outpatient
Ascites requiring paracentesis, as well as Aldactone and furosemide
Chronic thrombocytopenia
Hepatic encephalopathy on lactulose and Xifaxan
History of hepatitis C status posttreatment with Epclusa with SVR
Plan:
-N.p.o.
-Transfuse 1 unit packed red blood cells, hold another unit for EGD.
-Blood consent signed with patient and placed in chart
-EGD planned for today after blood given
-Pantoprazole drip
-Octreotide drip
-Continue ertapenem
-Hold paracentesis until after EGD performed, will consider later on today as long as blood pressure allows. IV albumin to follow.
-CBC, CMP, PT/INR daily
-Await blood culture, await ascitic fluid culture
-Bedside x-ray performed as patient was having significant tenderness
-ID consult pending
-Obtain another IV access, discussed with RN
-Other recommendations to be forthcoming
-
-
Thank you for consultation and allowing me to participate in the patient's care. Please call the plant operations vice president GI physician during the after hours with any questions or concerns.
[2024-11-16] MEDS: PREPARATION H OINTMENT 1 APPLIC RECTAL ×2 (10:31→21:21)
[2024-11-16] MEDS: ALDACTONE 12.5 MG PO (10:31)
[2024-11-16] MEDS: XIFAXAN 550 MG PO ×2 (10:31→21:21)
[2024-11-16] MEDS: ZINC 50 MG PO (10:31)
[2024-11-16] MEDS: PROTONIX IV (11:43)
[2024-11-16] MEDS: REGLAN 10 MG IV (12:08)
--- NOTE | 2024-11-16 14:24 | CON.ID ---
Consultation
-
Date/Time Consultation Requested: 11/15/2024 2108
Date/Time Consultation Performed: 11/16/2024 1400
Requesting Provider: Dr. Meza
Performing Provider: Dr. Muse
Reason for Consultation: SBP; Bacteremia
Chief Complaint / Past History
History of Present Illness
Cortez Mazariegos is a 59-year-old man being evaluated regarding SBP and bacteremia. History is obtained from chart review, along with patient interview.
The patient is known to the Infectious Disease service, having been seen on multiple prior admissions, with the most recent one being in late October 2024. At that time he was found to have a recurrence of SBP. He had a recent history of ESBL E.
coli, and was discharged on a course of ertapenem, with the last day of administration being 11/09/2024. He otherwise has been maintained on doxycycline prophylaxis as this was the only oral option based upon prior sensitivities.
He presents back to the emergency room yesterday secondary to worsening abdominal pain and black stool. He notes that he had marked increase in abdominal discomfort which is noted throughout his abdomen. He admits to vomiting x 1, but no blood
noted. He denies any recent fevers or chills. Since presentation he has had undergone paracentesis which has revealed significant leukocytosis. Peritoneal cultures are now showing gram-negative rods, as is obtained blood cultures. Infectious
Diseases is asked to manage further antibiotic selection.
Past History
Additional Past Medical History:
Cirrhosis
Upper GI bleed
COPD
Recurrent SBP
Hepatic encephalopathy
Hx of CVA
Additional Past Surgical History:
Routine paracentesis
Allergy History:
No Known Allergies Allergy (Verified 11/12/24 10:46)
Medications Reviewed: Yes
Current Antibiotics:
Ertapenem 1 g IV every 24 hours
Xifaxan 550 mg p.o. twice daily
Social History
Tobacco: Smoker
Alcohol: Former
Drug: None
Personal:
Living: With Family
Employment: Employed
Family History
Family History: Not Pertinent
Review of Systems
Vital Signs
Temp Pulse Resp BP Pulse Ox
98.5 F 85 18 111/58 94
11/16/24 13:49 11/16/24 13:49 11/16/24 13:49 11/16/24 13:49 11/16/24 07:57
Physical Exam
Physical Exam
Constitutional: No Acute Distress, Comfortable, Chronically Ill and Non-toxic
Head: Normocephalic
Eyes: Pupils Equal, Pupils Round and No Conjunctival Hemorrhage
Oral: No Thrush
Cardiovascular: Regular Rate and S1/S2; Negative S3/S4
Pulmonary: Clear; Negative Wheezes, Rales or Rhonchi
Gastrointestinal: Soft, Tender, Distended, Normal Bowel Sounds and No Rebound
Extremities: Edema (3+); Negative Cyanosis or Erythema
Neurological: Awake, Alert and Oriented
Psychological: Calm
Lab / Diagnostic Study Results
11/16/24 06:52
Abs Immat Gran (auto) 0.0 10^3/uL (0-0.05) 11/16/24 06:52
Absolute Neuts (auto) 6.5 10^3/uL (1.4-6.5) 11/16/24 06:52
Absolute Lymphs (auto) 0.5 10^3/uL (1.2-3.4) L 11/16/24 06:52
Absolute Monos (auto) 0.4 10^3/uL (0.1-0.6) 11/16/24 06:52
Absolute Basos (auto) 0.0 10^3/uL (0-0.2) 11/16/24 06:52
Immature Gran % 0.5 % (0-0.5) 11/16/24 06:52
Neutrophils % 87.8 % (42.2-75.2) H 11/16/24 06:52
Lymphocytes % 6.9 % (20.5-51.1) L 01/10/25 06:52
Monocytes % 4.7 % (1.7-9.3) 11/16/24 06:52
Eosinophils % 0.0 % (0-6) 11/16/24 06:52
Basophils % 0.1 % (0-2) 11/16/24 06:52
PT 16.0 Sec (11.4-14.6) H 11/15/24 21:17
INR 1.22 11/15/24 21:17
Microbiology Results
Micro:
11/15/24 21:17 Blood Culture - Preliminary
Blood/Venous Positive culture in progress
Gram Stain - Preliminary
11/15/24 21:17 Blood Culture - Pending
Blood/Venous
11/15/24 17:36 Body Fluid Culture - Preliminary
Peritoneal Fluid Gram negative bacilli
Gram Stain - Preliminary
Ascites fluid
11/15/24 17:36
Fluid WBC 6420
Fluid Mononuclear Cell 10.7
Fl Polymorphonucl Cell 89.3
Fluid Total Protein 5.8
Fluid Albumin 3.4
Imaging:
11/15/2024 CT abdomen/pelvis with IV contrast: Cirrhosis with extensive ascites, splenomegaly and perisplenic varices. Right inguinal hernia noted. Stable 9 mm calculus at the right ureteropelvic junction without associated hydronephrosis. Please
see full dictation for additional detail.
Assessment / Plan
Bacteremia with GNR's
SBP (recurrent)
- Hx ESBL E. coli (09/2024)
Anemia
Normal white count with left shift
TYSON
Cirrhosis / ESLD (previously on transplant list)
Susp. GI bleed
COPD
Hx Hepatic encephalopathy
Hx of CVA
Recommendations:
Continue with ertapenem.
Watch creatinine clearance closely in order to guide further dosing. Patient currently on cusp of q24 vs q48 dosing.
Await further identification of recovered blood culture and peritoneal culture isolates.
Monitor white count and temperature curve.
Continue with Xifaxan
Patient for EGD today.
Further recommendations as additional data is returned.
Care Review
Plan reviewed with: Other Provider (GI IT OPERATIONS ANALYST)
[2024-11-16 16:04] LABS: Hematocrit 18.6 % (39.0-52.0); Hemoglobin 6.2 g/dL (13.0-18.0); Mean Corp Hgb Conc. 33.3 g/dL (33.0-37.0); Mean Corpuscular Hgb 33.7 pg (27.0-31.0); Mean Corpuscular Volume 101.1 fL (80.0-94.0); Mean Platelet Volume 11.3 fL (7.4-10.4); Platelet Count 54 10^3/uL (130-400); Red Blood Cell Count 1.84 10^6/uL (4.70-6.10); Red Cell Dist. Width 18.3 % (11.5-14.5); White Blood Cell Count 5.4 10^3/uL (4.8-10.8)
--- NOTE | 2024-11-16 16:55 | PTCARENOTE ---
Received patient from PACU s/p EGD. Patient AAOX3, VSS, bedrest, clear liquid diet. Patient c/o abdominal pain/cramping rated 7/10, medicated with PRN IV morphine. Octreotide and protonix gtts infusing through peripheral IVs, patient's repeat hgb
6.2 s/p 1 unit PRBC, second unit of PRBC infusing through L FA, unit verified by this RN with Awilda BORJAS. Patient oriented to room and call Laurence caballero in place.
--- NOTE | 2024-11-16 17:06 | W.PN.HOSP.TC ---
Addendum entered and electronically signed by Bishop Gilliland MD 11/16/24 17:37:
Bladder scan with PVR of 614
Stevens catheter to be placed.
Original Note:
Today's Communication/Plan
-
See plan
Assessment / Plan
Assessment / Plan
Impression:
Sepsis secondary to SBP.
E. coli/ESBL bacteremia.
Recurrent SBP. Paracentesis every Tuesday
Decompensated cirrhosis.
Gastrointestinal hemorrhage from portal gastropathy.
Acute blood loss anemia.
TYSON.
Hepatitis C status post treatment with Epclusa
Plan:
Sepsis secondary to recurrent SBP and E. coli/ESBL bacteremia.
This post diagnostic paracentesis 11/15 with fluid findings consistent with SBP
Recent episode of SBP completed course of IV antibiotics and transition to doxycycline for suppression.
Continue meropenem.
ID input appreciated
Decompensated alcoholic cirrhosis.
MELD 3.0 @21
Monitor for hepatic encephalopathy.
Continue lactulose and rifaximin
Presentation with melena.
Upper gastrointestinal hemorrhage.
Acute blood loss anemia with hemoglobin of 6.1
EGD 11/16 with varices and bleeding portal gastropathy treated
Continue IV octreotide
Continue IV PPI.
Transfuse to keep hemoglobin above 8.
Continue IV albumin
TYSON baseline creatinine 1.0�1.7
Suspect renal in the settings of acute blood loss anemia.
Transfuse.
Albumin.
Hold diuretics including Lasix and spironolactone.
Urine sodium level pending
Chronic pancytopenia secondary to cirrhosis.
Follow CBC
Hepatitis C status posttreatment with Epclusa.
Chronic pain
Essential hypertension.
Anxiety
History of skin cancer status post Mohs surgery
Tobacco use disorder
Anticipated Discharge: > 48 hours
Subjective/Interval History
-
Date of Service: November 16, 2024
Objective Data
-
Labs:
Laboratory Results
11/16/24 11/16/24 11/16/24
06:52 15:44 22:00
WBC 7.4 5.4 Pending
Hgb 6.1 L* D 6.2 L* Pending
Hct 18.1 L* 18.6 L* Pending
Plt Count 63 L D 54 L Pending
Sodium 135
Potassium 4.6
Chloride 106
Carbon Dioxide 17 L
BUN 42 H
Creatinine 1.7 H
Glucose 113 H
Calcium 7.9 L
Total Bilirubin 3.2 H
AST 35
ALT 16
Alkaline Phosphatase 64
Vital Signs:
Vital Signs
Temp Pulse Resp BP Pulse Ox
98.3 F 88 16 100/57 96
11/16/24 16:38 11/16/24 16:38 11/16/24 16:38 11/16/24 16:38 11/16/24 16:52
I&O
11/15/24 11/16/24 11/17/24
06:59 06:59 06:59
Intake Total 250 / 250
Balance 250 / 250
Physical Exam
-
General: Well Developed and No Apparent Distress
HEENT: Normocephalic, Atraumatic and Moist Mucous Membranes
Respiratory: Clear to Auscultation
Cardiac: Regular Rhythm and S1/S2; Negative Murmur, Rub or Gallop
GI: Soft, Normal Bowel Sounds, Tender and Distended; Negative Organomegaly
Rectal: Deferred by Provider
Musculoskeletal: No Clubbing, No Cyanosis and No Edema
Skin: Negative Rash
Neuro: Awake, Alert, Oriented, AO x 3 and Nonfocal/Grossly Intact
[2024-11-16] MEDS: DILAUDID 0.5 MG IV (17:55)
[2024-11-16 18:34] LABS: Urine Sodium < 5 mmol/L (30-90)
--- NOTE | 2024-11-16 19:58 | PTCARENOTE ---
Patient transfused 1 unit PRBC, VSS, tolerated infusion. Patient bladder scanned by tech per MD request for 614 ml. This RN communicated with MD, order for sher catheter for acute retention placed. Patient administered one time dose of 0.5 mg IV
dilaudid prior to insertion. 16fr sher inserted by this RN, flash of priyank colored urine achieved, balloon inflated with no output afterwards. This RN and Mayela BORJAS attempted sher insertion with 14fr sher, flash of urine achieved, balloon
inflated, minimal output of blood tinged urine output with small blood clots. Sher catheter irrigated with 10cc syringe x3 with return into drainage bag. This RN communicated with urology, urology stated to reattempt sher catheter insertion with
18fr or 20fr sher, irrigate with 200cc and confirm return before inflating balloon. This RN called SPD, 18fr sher to be delivered to floor. Patient requesting to wait for insertion until PRN IV morphine can be given at 20:30.
[2024-11-16] MEDS: DUPHALAC/CHRONULAC 20 GRAMS PO (21:23)
[2024-11-16] MEDS: INVANZ 60 MG IV (22:08)
[2024-11-16 22:58] LABS: Hemoglobin 7.4 g/dL (13.0-18.0); Mean Corp Hgb Conc. 33.6 g/dL (33.0-37.0); Mean Corpuscular Hgb 32.7 pg (27.0-31.0); Mean Corpuscular Volume 97.3 fL (80.0-94.0); Mean Platelet Volume 11.1 fL (7.4-10.4); Platelet Count 45 10^3/uL (130-400); Red Blood Cell Count 2.26 10^6/uL (4.70-6.10); Red Cell Dist. Width 18.2 % (11.5-14.5); White Blood Cell Count 5.9 10^3/uL (4.8-10.8)
[2024-11-17] VITALS (9 sets, daily range): BP systolic 94–112; BP diastolic 52–62
[2024-11-17] MEDS: PROTONIX 100 IV (03:38)
[2024-11-17 06:56] LABS: INR 1.79
[2024-11-17 07:10] LABS: Direct Bilirubin 1.3 mg/dl (0.0-0.4)
[2024-11-17] MEDS: SPIRIVA RESPIMAT 2.5 MCG INH (07:55)
[2024-11-17] MEDS: SYMBICORT 160/4.5 MCG INHALER INH (07:55)
[2024-11-17] MEDS: ZINC 50 MG PO (08:32)
[2024-11-17] MEDS: XIFAXAN 550 MG PO ×2 (08:32→21:39)
[2024-11-17] MEDS: DESENEX/MITRAZOL/ZEASORB 1 APPLIC TOPICAL ×2 (08:32→21:39)
[2024-11-17] MEDS: DUPHALAC/CHRONULAC 20 GRAMS PO ×2 (08:32→15:20)
[2024-11-17] MEDS: PREPARATION H OINTMENT 1 APPLIC RECTAL ×2 (08:33→21:40)
[2024-11-17] MEDS: VITAMIN B1 100 MG PO (08:33)
[2024-11-17] MEDS: MAGNESIUM OXIDE 500 MG PO ×2 (08:33→21:39)
[2024-11-17] MEDS: FOLVITE 1 MG PO (08:34)
[2024-11-17] MEDS: MORPHINE SULFATE 2 MG IV (08:42)
--- NOTE | 2024-11-17 10:04 | W.PN.GI.CBS2 ---
Addendum entered and electronically signed by Inge Fitzpatrick DO 11/17/24 11:19:
The patient was seen and examined by me independently in collaboration with the nurse practitioner.
Past medical history/social history/medications/allergies/family history reviewed.
Lab data and imaging data reviewed.
Patient seen in follow-up today. Underwent EGD yesterday with findings of nonbleeding gastric varices and oozing PHG which was APC'ed. He received 2 units of PRBC yesterday, Hgb 7.4 this morning, no episodes of bleeding overnight. Abdomen is more
distended today compared to exam yesterday, interestingly, patient states the pain has actually improved and he is less tender on exam. BCx + E.coli, ID following.
#Recurrent SBP now with ESBL
- currently on ertapenem, was on doxycycline 100 mg p.o. twice daily as an outpatient
-Received 1.5 mg/kg albumin on day 1 (11/15-11/16), will need 2nd dose of 1 mg/kg today/tomorrow (day 3).
-Recommend repeat paracentesis, both diagnostic and therapeutic, however, given worsening abdominal distension on exam, recommendation repeat abdomianl xray first, suspect ileus
#Melena w/ history of bleeding PHG, GOV1 s/p Ultrasound guided gastric artery coiling procedure (09/2024), now s/p EGD 11/16 with actively bleeding PHG, treated with APC
-Hgb 6.1; received 2 units PRBC, repeat Hgb 7.4 last night, AM labs pending
-BUN 35 --> 42; Cr. 1.0 --> 1.7
-PPI gtt
-Octreotide gtt
-already on tx for SBP
-active T&C
-2 large bore peripheral gauge IVs
TYSON--
Cr. 1.0 --> 1.7, AM labs pending
hold diuretics
Gaby <5, c/w prerenal
Patient has overall poor prognosis.
Original Note:
Today's Communication / Plan
-
as per plan
Assessment / Plan
-
59 y.o male well-known to GI group with past medical history significant for decompensated cirrhosis (HCV vs EtOH) with intractable ascites with weekly para, HE, GI bleeding by recurrent hospitalizations with HE secondary to acute on chronic GI
bleeding 2/2 PHG gastric varix, hx of prior post-polypectomy bleed, prior transfer to [place] for Ultrasound guided gastric artery coiling procedure (09/2024), chronic HCV (s/p treatment with Epclusa s/p SVR), CVA, HTN, COPD, skin cancer status post
Mohs surgeryand chronic thrombocytopenia. Hx of SBP treated with ertapenem and converted to Doxycycline 100 mg BID as an outpatient, ecoli/ ESBL in blood/peritoneal fluid, and UTI. Following up with Dr. Ebenezer Dan at [facility]
[place] who presents to the emergency room with 4-day history of abdominal discomfort and melena. Recent need for blood transfusion on 11/12/2023 as hemoglobin was 6.2. Found to have hemoglobin of 8.1 that went down to 6.1 this morning.
Continues with abdominal discomfort, melena, OB positive stool. Had 1 episode this morning where he either spit up or coughed up red blood. At the present time he continues on ertapenem. Pantoprazole drip. Octreotide drip. He is NPO. Discussed
with the patient as well as his Cherise. Blood consent signed and will give blood transfusion at present time. Plan on EGD today after 1 unit has been transfused. Hold on paracentesis until after EGD.
Discussed with his Cherise via telephone.
EGD 11/16/24: - Bleb found in the esophagus.
- Gastric varices, without bleeding.
- Bleeding Portal hypertensive gastropathy. Treated
with a monopolar probe.
- No specimens collected.
Impression:
Melena-> patient with history of PHG, gastric varix status post gastric artery coiling September 2024.
--EGD on 09/16/25 with bleeding gastric fundus PHG treated with monopolar probe. Gastric varices. Esophageal bleb.
Acute on chronic anemia. Patient's baseline in the 7 range. Need for recent blood transfusion on 11/12/2023
--Trf 2 units PRBC on 11/16/24 with Hgb 7.2
ESBL Bacteremia--> On Ertapenem, Appreciate ID input.
Decompensated cirrhosis
SBP-> currently on ertapenem, was on doxycycline 100 mg p.o. twice daily as an outpatient. Previously was on Ertapenem.
Ascites requiring paracentesis, as well as Aldactone and furosemide
--Will need therapeutic paracentesis
Chronic thrombocytopenia
Hepatic encephalopathy on lactulose and Xifaxan
History of hepatitis C status post treatment with Epclusa with SVR
Ileus
Plan:
-Continue clear liquid only at this point, with GIB and also with ileus.
-Patient feels abd distention is improved, however I think patient feels more distended from yesterday. Will obtain repeat imaging.
-Discussed with patient that we need to stop IV Morphine as I feel that this is contributing to hi ileus. He is not on this at home.
-Transfuse for Hgb < 7
-Pantoprazole drip until today then can got to BID
-Octreotide drip for 72 hrs then can stop
-Continue ertapenem as per ID
-Paracentesis should be performed as patient over due. IV albumin to follow, per SBP recommendations.
-CBC, CMP, PT/INR daily
Subjective
Subjective
Date of Service: November 17, 2024
Patient tolerating clear liquid diet. Hgb improved and at 7.4 up from 6.2 after 2 units PRBC. Patient is s/p EGD yesterday with of PHG of the gastric antrum that was bleeding treated with monopolar probe. Other findings on EGD was bleb in
esophagus, non bleeding gastric varices. Patient states that he feels his abdominal pain and distention is decreased from yesterday. He does not think that he has passed flatus. He has not had any BM. He continues on IV Ertapenem SBP and for
bacteremia (ESBL). Also continues on Octreotide and PPI gtt.
Objective
Data Reviewed
Laboratory Data:
Laboratory Results
11/16/24 22:30
11/16/24 06:52
Laboratory Results
PT 21.0 Sec (11.4-14.6) H 11/17/24 05:56
INR 1.79 11/17/24 05:56
Total Bilirubin 3.2 mg/dl (0.2-1.3) H 11/16/24 06:52
AST 35 U/L (17-59) 11/16/24 06:52
ALT 16 U/L (0-50) 11/16/24 06:52
Alkaline Phosphatase 64 U/L (38-126) 11/16/24 06:52
Lipase 239 U/L (23-300) 11/15/24 16:30
Vital Signs and I&O:
Vital Signs
Temp Pulse Resp BP Pulse Ox
98.2 F 82 16 94/53 94
11/17/24 07:29 11/17/24 07:29 11/17/24 07:29 11/17/24 07:29 11/17/24 07:29
I&O
11/16/24 11/17/24 11/18/24
06:59 06:59 06:59
Intake Total 1830 / 1830
Output Total 550 / 550
Balance 1280 / 1280
Physical Exam
Physical Exam
HEENT: Anicteric
Cardiology: Normal Sinus Rhythm
Pulmonary: Clear (anterior)
GI: Soft, Distended, Non Tender and Other (+ ascites, + higher pitched BS)
Neuro: Non Focal
[2024-11-17] MEDS: SANDOSTATIN 500.6 MCG IV ×2 (10:09→23:21)
[2024-11-17] MEDS: ULTRAM 50 MG PO (11:34)
--- NOTE | 2024-11-17 13:35 | W.PN.HOSP.TC ---
Today's Communication/Plan
-
Clear liquid diet
Monitor ileus for worsening.
Monitor hemoglobin transfuse if below 7.
Continue lactulose and rifaximin
Continue PPI and octreotide drip
Assessment / Plan
Assessment / Plan
Impression:
Sepsis secondary to SBP.
E. coli/ESBL bacteremia.
Recurrent SBP. Paracentesis every Tuesday
Decompensated cirrhosis.
Gastrointestinal hemorrhage from portal gastropathy.
Acute blood loss anemia.
TYSON.
Hepatitis C status post treatment with Epclusa
Plan:
Sepsis secondary to recurrent SBP and E. coli/ESBL bacteremia.
This post diagnostic paracentesis 11/15 with fluid findings consistent with SBP
Recent episode of SBP completed course of IV antibiotics and transition to doxycycline for suppression.
Continue meropenem.
ID input appreciated
Decompensated alcoholic cirrhosis.
MELD 3.0 @21
Monitor for hepatic encephalopathy.
Continue lactulose and rifaximin
Presentation with melena.
Upper gastrointestinal hemorrhage.
Acute blood loss anemia with hemoglobin of 6.1
EGD 11/16 with varices and bleeding portal gastropathy treated
Continue IV octreotide
Continue IV PPI.
Transfuse to keep hemoglobin above 8.
Continue IV albumin
Adynamic ileus.
Minimize narcotics.
Keep on clear liquid diet.
May require Relistor
TYSON baseline creatinine 1.0�1.7
Suspect renal in the settings of acute blood loss anemia. Urine sodium less than 5 confirming
Transfuse.
Albumin.
Hold diuretics including Lasix and spironolactone.
Urine sodium level pending
Acute urinary retention.
Stevens catheter placed on 11/16
Chronic pancytopenia secondary to cirrhosis.
Follow CBC
Hepatitis C status posttreatment with Epclusa.
Chronic pain
Essential hypertension.
Anxiety
History of skin cancer status post Mohs surgery
Tobacco use disorder
Anticipated Discharge: > 48 hours
Subjective/Interval History
-
Date of Service: November 17, 2024
Objective Data
-
Labs:
Laboratory Results
11/17/24 11/17/24
05:56 13:34
WBC Pending
Hgb Pending
Hct Pending
Plt Count Pending
PT 21.0 H
INR 1.79
Sodium Pending
Potassium Pending
Chloride Pending
Carbon Dioxide Pending
BUN Pending
Creatinine Pending
Glucose Pending
Calcium Pending
Total Bilirubin Pending
AST Pending
ALT Pending
Alkaline Phosphatase Pending
Vital Signs:
Vital Signs
Temp Pulse Resp BP Pulse Ox
98.3 F 84 18 95/57 94
11/17/24 11:06 11/17/24 11:06 11/17/24 11:06 11/17/24 11:06 11/17/24 11:06
I&O
11/16/24 11/17/24 11/18/24
06:59 06:59 06:59
Intake Total 1830 / 1830
Output Total 550 / 550
Balance 1280 / 1280
Physical Exam
-
General: Well Developed and No Apparent Distress
HEENT: Normocephalic, Atraumatic and Moist Mucous Membranes
Respiratory: Clear to Auscultation
Cardiac: Regular Rhythm and S1/S2; Negative Murmur, Rub or Gallop
GI: Soft, Normal Bowel Sounds, Tender and Distended; Negative Organomegaly
Rectal: Deferred by Provider
Musculoskeletal: No Clubbing, No Cyanosis and No Edema
Skin: Negative Rash
Neuro: Awake, Alert, Oriented, AO x 3 and Nonfocal/Grossly Intact
[2024-11-17 14:09] LABS: % Lymphocytes 5.7 % (20.5-51.1); % Monocytes 8.9 % (1.7-9.3); % Neutrophils 84.4 % (42.2-75.2); Absolute Immature Granulocytes 0.1 10^3/uL (0-0.05); Absolute Lymphocytes 0.3 10^3/uL (1.2-3.4); Absolute Monocytes 0.5 10^3/uL (0.1-0.6); Hematocrit 22.2 % (39.0-52.0); Hemoglobin 7.5 g/dL (13.0-18.0); Mean Corp Hgb Conc. 33.8 g/dL (33.0-37.0); Mean Corpuscular Hgb 32.8 pg (27.0-31.0); Mean Corpuscular Volume 96.9 fL (80.0-94.0); Mean Platelet Volume 10.7 fL (7.4-10.4); Nucleated Red Blood Cells % 0 % (-); Platelet Count 41 10^3/uL (130-400); Red Blood Cell Count 2.29 10^6/uL (4.70-6.10); Red Cell Dist. Width 18.7 % (11.5-14.5); White Blood Cell Count 5.9 10^3/uL (4.8-10.8)
[2024-11-17 14:17] LABS: ALT (SGPT) 13 U/L (0-50); AST (SGOT) 27 U/L (17-59); Albumin 3.2 g/dl (3.5-5.0); Alkaline Phosphatase 47 U/L (38-126); Blood Urea Nitrogen 57 mg/dl (9-20); Carbon Dioxide 19 mmol/L (22-30); Chloride 105 mmol/L (98-107); Estimated Creatinine Clearance 38 ml/min; Glucose 142 mg/dl (70-99); Potassium 4.9 mmol/L (3.5-5.1); Sodium 135 mmol/L (135-145); Total Bilirubin 3.5 mg/dl (0.2-1.3); Total Protein 5.1 g/dl (6.3-8.2); eGFR 35.15
--- NOTE | 2024-11-17 16:30 | CM ---
IA completed with pt at bedside.
Pt is a 59yr old admitted for Recurrent SBP.
Pt has had repeat admissions for SBP; pt has cirrhosis and end stage liver disease; receiving weekly paracentesis.
At baseline, pt lives with his in a 2 story home with 1 step to enter. Pt is indep at baseline.
Pt has a cane, showerchair, and bars throughout the home.
Pt has been to [facility] in the past and has had home [facility].
Pts is a nurse and reports that she is supportive at home. Pt dc'd to home in 10/30 with Home IV therapy.
PCP; Drake Goss
Pharm; [facility]
PLAN; dc to home. Watch for dc needs.
[2024-11-17] MEDS: SYMBICORT 160/4.5 MCG INHALER 2 PUFF INH (18:07)
[2024-11-17] MEDS: OFIRMEV 100 IV (21:40)
[2024-11-17] MEDS: DUPHALAC/CHRONULAC PO (21:44)
[2024-11-17] MEDS: INVANZ 60 MG IV (22:59)
[2024-11-18 02:44] VITALS: BP 102/50
[2024-11-18 06:02] LABS: % Immature Granulocytes 1.8 % (0-0.5); % Lymphocytes 6.7 % (20.5-51.1); % Monocytes 10.1 % (1.7-9.3); % Neutrophils 81.4 % (42.2-75.2); Absolute Immature Granulocytes 0.1 10^3/uL (0-0.05); Absolute Lymphocytes 0.3 10^3/uL (1.2-3.4); Absolute Monocytes 0.4 10^3/uL (0.1-0.6); Absolute Neutrophils 3.6 10^3/uL (1.4-6.5); Hemoglobin 7.1 g/dL (13.0-18.0); Mean Corp Hgb Conc. 33.8 g/dL (33.0-37.0); Mean Corpuscular Hgb 32.7 pg (27.0-31.0); Mean Corpuscular Volume 96.8 fL (80.0-94.0); Mean Platelet Volume 11.2 fL (7.4-10.4); Nucleated Red Blood Cells % 0 % (-); Platelet Count 42 10^3/uL (130-400); Red Blood Cell Count 2.17 10^6/uL (4.70-6.10); Red Cell Dist. Width 18.1 % (11.5-14.5); White Blood Cell Count 4.4 10^3/uL (4.8-10.8)
[2024-11-18 06:21] LABS: ALT (SGPT) 12 U/L (0-50); AST (SGOT) 27 U/L (17-59); Albumin 2.7 g/dl (3.5-5.0); Alkaline Phosphatase 50 U/L (38-126); Blood Urea Nitrogen 50 mg/dl (9-20); Calcium 7.6 mg/dl (8.4-10.2); Carbon Dioxide 19 mmol/L (22-30); Chloride 106 mmol/L (98-107); Estimated Creatinine Clearance 53 ml/min; Glucose 86 mg/dl (70-99); Sodium 135 mmol/L (135-145); Total Bilirubin 3.3 mg/dl (0.2-1.3); Total Protein 4.6 g/dl (6.3-8.2); eGFR 52.64
[2024-11-18 08:00] VITALS: BP 106/58
[2024-11-18] MEDS: SYMBICORT 160/4.5 MCG INHALER INH (08:05)
[2024-11-18] MEDS: SPIRIVA RESPIMAT 2.5 MCG INH (08:05)
--- NOTE | 2024-11-18 08:21 | W.PN.GI.CBS2 ---
Today's Communication / Plan
-
Recommend repeat paracentesis tomorrow- limit to 3L given TYSON. Continue abx. Monitor H&H. No narcotics
Assessment / Plan
-
Cortez Mazariegos is a 59 y.o. male who is very well-known to GI with past medical history of decompensated HCV/EtoH Cirrhosis c/b bleeding gastric varices, intractable ascites, recurrent SBP, thrombocytoepnia and hepatic encephalopathy who presents
from retirement with abdominal pain, distension and black tarry stool.
Patient follows with Dr. Weaver as well as Dr. Dan ([facility]), previously being considered for liver transplantation, however, due to +PETH as well as UDS with + Cocaine (possible false positive?) with UDS +meth 1 year ago, he was no
longer considered a candidate for transplantation. In follow-up, Dr. Dan had asked that patient complete outpatient therapy and produce 2 negative PETH s to be reconsidered for liver transplantation. During his most recent hospitalization last
month, patient's was considering palliative care due to his worsening decompensation, deconditioning and frequest hospital admission with likely no possibility of liver transplantation, however, after recent admission, wants to pursue all
care, hoping to meet requirements to be again, considered for OLT. Current admission with sepsis 2/2 SBP and ESBL bacteremia on ertapenem, hospital course c/b GI bleeding s/p EGD on 11/16 with findings of oozing PHG, treated with APC , ileus and
TYSON.
EGD 11/16/24: - Bleb found in the esophagus.
- Gastric varices, without bleeding.
- Bleeding Portal hypertensive gastropathy. Treated
with a monopolar probe.
- No specimens collected.
#Decompensated Cirrhosis-- MELD 3.0 = 23
#Recurrent SBP now with ESBL
- currently on ertapenem, was on doxycycline 100 mg p.o. twice daily as an outpatient
-Received 1.5 mg/kg albumin on day 1 (11/15-11/16), 1mg/kg dosing of albumin day 3
-Recommend repeat paracentesis, both diagnostic and therapeutic, would limit to max 3L removed due to TYSON, which is now improving
#Melena w/ history of bleeding PHG, GOV1 s/p Ultrasound guided gastric artery coiling procedure (09/2024), now s/p EGD 11/16 with actively bleeding PHG, treated with APC
-Hgb 6.1; received 2 units PRBC; Hgb stable at 7.1repeat Hgb 7.4 last night, AM labs pending
-BUN elevated but also has TYSON, downtrending
-PPI gtt, transition to BID dosing
-Octreotide gtt (can d/c after today)
-already on tx for SBP
-active T&C
-2 large bore peripheral gauge IVs
TYSON--
Cr. 1.0 --> 2.1 --> 1.5
hold diuretics
Gaby <5, c/w prerenal
Receiving albumin
Ileus
-Abdominal xray demonstrates adynamic ileus, interval increase in gaseous distension of colon; transverse colon measures up to 9.3 cm, rectum does not appear significantly dilated
-d/c narcotic agents
-lactulose, xifaxin for HE
Subjective
Subjective
Date of Service: November 18, 2024
Patient seen in follow-up, endorses continued improvement in abd pain. Hgb 7.1, Plt 42. No melena overnight. BUN 57 --> 50, Cr. improving, 1.7 --> 2.1 --> 1.5
Objective
Data Reviewed
Laboratory Data:
Laboratory Results
11/18/24 05:00
11/18/24 05:00
Laboratory Results
PT 21.0 Sec (11.4-14.6) H 11/17/24 05:56
INR 1.79 11/17/24 05:56
Total Bilirubin 3.3 mg/dl (0.2-1.3) H 11/18/24 05:00
AST 27 U/L (17-59) 11/18/24 05:00
ALT 12 U/L (0-50) 11/18/24 05:00
Alkaline Phosphatase 50 U/L (38-126) 11/18/24 05:00
Lipase 239 U/L (23-300) 11/15/24 16:30
Vital Signs and I&O:
Vital Signs
Temp Pulse Resp BP Pulse Ox
98.9 F 86 18 102/50 94
11/18/24 02:44 11/18/24 02:44 11/18/24 02:44 11/18/24 02:44 11/18/24 02:44
I&O
11/17/24 11/18/24 11/19/24
06:59 06:59 06:59
Intake Total 1830 / 1830 480 / 480
Output Total 550 / 550 1550 / 1550
Balance 1280 / 1280 -1070 / -1070
[2024-11-18] MEDS: XIFAXAN 550 MG PO ×2 (08:59→20:42)
[2024-11-18] MEDS: SANDOSTATIN 500.6 MCG IV ×2 (08:59→20:40)
[2024-11-18] MEDS: PROTONIX IV 40 MG IV ×2 (09:00→20:42)
[2024-11-18] MEDS: PREPARATION H OINTMENT 1 APPLIC RECTAL (09:00)
[2024-11-18] MEDS: MAGNESIUM OXIDE 500 MG PO ×2 (09:00→20:41)
[2024-11-18] MEDS: VITAMIN B1 100 MG PO (09:00)
[2024-11-18] MEDS: DESENEX/MITRAZOL/ZEASORB 1 APPLIC TOPICAL ×2 (09:00→20:41)
[2024-11-18] MEDS: ZINC 50 MG PO (09:00)
[2024-11-18] MEDS: FOLVITE 1 MG PO (09:00)
[2024-11-18] MEDS: NSS (PRESERVATIVE FREE) 10 ML IV ×2 (09:00→20:42)
[2024-11-18] MEDS: FLEXBUMIN 100 IV ×3 (09:01→12:21)
[2024-11-18] MEDS: DUPHALAC/CHRONULAC PO ×3 (09:05→20:47)
[2024-11-18 12:00] VITALS: BP 107/55
[2024-11-18] MEDS: DUPHALAC/CHRONULAC 20 GRAMS PO ×2 (12:06→16:46)
--- NOTE | 2024-11-18 12:46 | W.PN.ID1 ---
Date of Service
Date of Service: November 18, 2024
Today's Communication
follow up repeat paracentesis
Assessment / Plan
ESBl E coli Bacteremia
SBP (recurrent)
- Hx ESBL E. coli (09/2024)
Anemia
Normal white count with left shift
TYSON
Cirrhosis / ESLD (previously on transplant list)
Susp. GI bleed
COPD
Hx Hepatic encephalopathy
Hx of CVA
Recommendations:
Continue with ertapenem.
Watch creatinine clearance, improving
Unfortunately isolate remains ESBL E coli
Monitor white count and temperature curve.
Prior PICC was removed yesterday due to recurrent bleeding
Continue with Xifaxan
EGD- bleb and gastric varices
For repeat paracentesis tomorrow
Chief Complaint
-: Bacteremia and Other (SBP)
Subjective / Review of Systems
afebrile
bp stable
reports markeldy improved abd pain today
Vital Signs / Physical Exam
Vital Signs
Vital Signs
Temp Pulse Resp BP Pulse Ox
99.3 F 84 18 107/55 95
11/18/24 12:00 11/18/24 12:00 11/18/24 12:00 11/18/24 12:00 11/18/24 12:00
Physical Exam
Constitutional: No Acute Distress
Cardiovascular: Regular Rate and S1/S2; Negative Murmur or Rub
Pulmonary: Clear and Symmetric; Negative Wheezes or Rales
Gastrointestinal: Soft, Non Tender, Distended and Normal Bowel Sounds
Skin: Warm and Dry; Negative Rash or Jaundice
Objective Data
Lab Data
Lab Results
11/18/24 05:00
11/18/24 05:00
PT 21.0 Sec (11.4-14.6) H 11/17/24 05:56
INR 1.79 11/17/24 05:56
Estimated Creat Clear 53 ml/min 11/18/24 05:00
Total Bilirubin 3.3 mg/dl (0.2-1.3) H 11/18/24 05:00
AST 27 U/L (17-59) 11/18/24 05:00
ALT 12 U/L (0-50) 11/18/24 05:00
Alkaline Phosphatase 50 U/L (38-126) 11/18/24 05:00
Most recent labs reviewed.
Blood Culture Final 11/18/24
Escherichia coli - ESBL
Isolation Precautions Required
Called to [id number] on 11/16/24 at 1437 by FELIPE.
Positive for Escherichia coli by [employer]
Acid Methodology.
Positive for CTX-M resistance gene by [employer]
Nucleic Acid method.
Organism 1 Escherichia coli - ESBL
1. Escherichia coli - ESBL
M.I.C. RX
--------- ---
Amoxicillin/Potas. Clavulanate <=8/4 S
Ampicillin >16 R
Ampicillin/Sulbactam <=4/2 S
Aztreonam 16 R
Cefazolin >16 R
Cefepime 8 SDD
Susceptible Dose Dependent - Optimize Dosing
Ceftazidime R
Ceftriaxone >2 R
Ertapenem <=0.5 S
Ciprofloxacin >2 R
Gentamicin <=2 S
Meropenem <=1 S
Piperacillin/Tazobactam <=8 S
Tetracycline 8 I
Tobramycin <=2 S
Trimethoprim/Sulfamethoxazole >2/38 R
Micro Results:
11/15/24 21:17 Blood Culture - Final
Blood/Venous Escherichia coli - ESBL
Gram Stain - Final
11/15/24 21:17 Blood Culture - Preliminary
Blood/Venous No Growth in 48 hours- Final report to follow
11/15/24 17:36 Body Fluid Culture - Final
Peritoneal Fluid Escherichia coli - ESBL
Gram Stain - Final
Ascites fluid
11/15/24 17:36
Fluid WBC 6420
Fluid Mononuclear Cell 10.7
Fl Polymorphonucl Cell 89.3
Fluid Total Protein 5.8
Fluid Albumin 3.4
Imaging:
11/15/2024 CT abdomen/pelvis with IV contrast: Cirrhosis with extensive ascites, splenomegaly and perisplenic varices. Right inguinal hernia noted. Stable 9 mm calculus at the right ureteropelvic junction without associated hydronephrosis. Please
see full dictation for additional detail.
--- NOTE | 2024-11-18 13:51 | W.PN.HOSP.TC ---
Today's Communication/Plan
-
Clear liquid diet
Absolutely avoid narcotics.
IV antibiotics.
IV albumin.
For paracentesis in a.m.
Encourage lactulose
Assessment / Plan
Assessment / Plan
Impression:
Sepsis secondary to SBP.
E. coli/ESBL bacteremia.
Recurrent SBP. Paracentesis every Tuesday
Decompensated cirrhosis.
Gastrointestinal hemorrhage from portal gastropathy.
Acute blood loss anemia.
TYSON.
Hepatitis C status post treatment with Epclusa
Plan:
Sepsis secondary to recurrent SBP and E. coli/ESBL bacteremia.
This post diagnostic paracentesis 11/15 with fluid findings consistent with SBP
Recent episode of SBP completed course of IV antibiotics and transition to doxycycline for suppression.
Continue meropenem.
ID input appreciated
Decompensated alcoholic cirrhosis.
MELD 3.0 @21
Monitor for hepatic encephalopathy.
Continue lactulose and rifaximin
Presentation with melena.
Upper gastrointestinal hemorrhage.
Acute blood loss anemia with hemoglobin of 6.1
EGD 11/16 with varices and bleeding portal gastropathy treated
Continue IV octreotide
Continue IV PPI.
Transfuse to keep hemoglobin above 8.
Continue IV albumin
Adynamic ileus.
Minimize narcotics.
Keep on clear liquid diet.
May require Relistor
TYSON baseline creatinine 1.0�1.7
Suspect renal in the settings of acute blood loss anemia. Urine sodium less than 5 confirming
Transfuse.
Albumin.
Hold diuretics including Lasix and spironolactone.
Urine sodium level pending
Acute urinary retention.
Stevens catheter placed on 11/16
Chronic pancytopenia secondary to cirrhosis.
Follow CBC
Hepatitis C status posttreatment with Epclusa.
Chronic pain
Essential hypertension.
Anxiety
History of skin cancer status post Mohs surgery
Tobacco use disorder
Anticipated Discharge: > 48 hours
Subjective/Interval History
-
Date of Service: November 18, 2024
Objective Data
-
Labs:
Laboratory Results
11/18/24
05:00
WBC 4.4 L
Hgb 7.1 L
Hct 21.0 L
Plt Count 42 L
Sodium 135
Potassium 4.0
Chloride 106
Carbon Dioxide 19 L
BUN 50 H
Creatinine 1.5 H
Glucose 86
Calcium 7.6 L
Total Bilirubin 3.3 H
AST 27
ALT 12
Alkaline Phosphatase 50
Vital Signs:
Vital Signs
Temp Pulse Resp BP Pulse Ox
99.3 F 84 18 107/55 95
11/18/24 12:00 11/18/24 12:00 11/18/24 12:00 11/18/24 12:00 11/18/24 12:00
I&O
11/17/24 11/18/24 11/19/24
06:59 06:59 06:59
Intake Total 1830 / 1830 480 / 480
Output Total 550 / 550 1550 / 1550
Balance 1280 / 1280 -1070 / -1070
Physical Exam
-
General: Well Developed and No Apparent Distress
HEENT: Normocephalic, Atraumatic and Moist Mucous Membranes
Respiratory: Clear to Auscultation
Cardiac: Regular Rhythm and S1/S2; Negative Murmur, Rub or Gallop
GI: Soft, Normal Bowel Sounds, Tender and Distended; Negative Organomegaly
Rectal: Deferred by Provider
Musculoskeletal: No Clubbing, No Cyanosis and No Edema
Skin: Negative Rash
Neuro: Awake, Alert, Oriented, AO x 3 and Nonfocal/Grossly Intact
[2024-11-18] MEDS: FLEXBUMIN 50 IV (14:04)
[2024-11-18 15:00] VITALS: BP 107/59
[2024-11-18] MEDS: MYLICON 80 MG PO ×2 (16:46→20:42)
[2024-11-18] MEDS: TYLENOL 500 MG PO (18:37)
[2024-11-18 19:23] VITALS: BP 117/54
[2024-11-18] MEDS: SYMBICORT 160/4.5 MCG INHALER 2 PUFF INH (19:30)
[2024-11-18] MEDS: ROBITUSSIN DM 5 ML PO (20:57)
[2024-11-18] MEDS: INVANZ 60 MG IV (21:00)
[2024-11-18] MEDS: PREPARATION H OINTMENT RECTAL (21:06)
[2024-11-18 23:38] VITALS: BP 99/46
[2024-11-19] VITALS (11 sets, daily range): BP systolic 71–120; BP diastolic 41–63; BMI 27.8
[2024-11-19] MEDS: SPIRIVA RESPIMAT 2.5 MCG INH (07:28)
[2024-11-19] MEDS: SYMBICORT 160/4.5 MCG INHALER INH (07:28)
[2024-11-19 08:14] LABS: % Eosinophils 0.6 % (0-6); % Immature Granulocytes 0.6 % (0-0.5); % Monocytes 11.6 % (1.7-9.3); % Neutrophils 79.2 % (42.2-75.2); Absolute Lymphocytes 0.3 10^3/uL (1.2-3.4); Absolute Monocytes 0.4 10^3/uL (0.1-0.6); Absolute Neutrophils 2.6 10^3/uL (1.4-6.5); Hematocrit 20.1 % (39.0-52.0); Hemoglobin 6.7 g/dL (13.0-18.0); Mean Corp Hgb Conc. 33.3 g/dL (33.0-37.0); Mean Corpuscular Hgb 32.2 pg (27.0-31.0); Mean Corpuscular Volume 96.6 fL (80.0-94.0); Mean Platelet Volume 12.5 fL (7.4-10.4); Nucleated Red Blood Cells % 0 % (-); Platelet Count 34 10^3/uL (130-400); Red Blood Cell Count 2.08 10^6/uL (4.70-6.10); White Blood Cell Count 3.3 10^3/uL (4.8-10.8)
[2024-11-19 08:48] LABS: ALT (SGPT) 12 U/L (0-50); AST (SGOT) 30 U/L (17-59); Albumin 2.9 g/dl (3.5-5.0); Alkaline Phosphatase 42 U/L (38-126); Blood Urea Nitrogen 35 mg/dl (9-20); Calcium 7.4 mg/dl (8.4-10.2); Carbon Dioxide 19 mmol/L (22-30); Chloride 109 mmol/L (98-107); Estimated Creatinine Clearance 89 ml/min; Glucose 107 mg/dl (70-99); Potassium 3.7 mmol/L (3.5-5.1); Sodium 137 mmol/L (135-145); Total Bilirubin 4.5 mg/dl (0.2-1.3); Total Protein 4.6 g/dl (6.3-8.2); eGFR > 60.00
[2024-11-19] MEDS: MAGNESIUM OXIDE 500 MG PO ×2 (09:11→20:17)
[2024-11-19] MEDS: DUPHALAC/CHRONULAC 20 GRAMS PO ×3 (09:11→20:21)
[2024-11-19] MEDS: VITAMIN B1 100 MG PO (09:11)
[2024-11-19] MEDS: DESENEX/MITRAZOL/ZEASORB 1 APPLIC TOPICAL ×2 (09:11→20:17)
[2024-11-19] MEDS: ZINC 50 MG PO (09:12)
[2024-11-19] MEDS: PROTONIX IV 40 MG IV ×2 (09:12→20:20)
[2024-11-19] MEDS: MYLICON 80 MG PO ×3 (09:12→22:01)
[2024-11-19] MEDS: NSS (PRESERVATIVE FREE) 10 ML IV ×2 (09:12→20:20)
[2024-11-19] MEDS: XIFAXAN 550 MG PO ×2 (09:12→20:17)
[2024-11-19] MEDS: FOLVITE 1 MG PO (09:12)
[2024-11-19] MEDS: PREPARATION H OINTMENT RECTAL (09:13)
[2024-11-19 10:09] LABS: Body Fluid Polymorphonuclear 87.2 %; Body Fluid WBC 12830 /CUMM
[2024-11-19 10:10] LABS: Body Fluid Mononuclear 12.8 %
[2024-11-19 10:32] LABS: Body Fluid Second Tech CMB
--- NOTE | 2024-11-19 11:45 | CM ---
Patient seen at bedside.
Paracentesis today
Will rec transfusion today-hgb 6.7
Current with [facility]erral [facility].
PLAN: [facility]
--- NOTE | 2024-11-19 14:45 | W.PN.HOSP.TC ---
Today's Communication/Plan
-
Paracentesis.
Transfuse to keep hemoglobin above 7�7.5
IV PPI
Monitor for recurrent melena
Continue IV antibiotics
Assessment / Plan
Assessment / Plan
Impression:
Sepsis secondary to SBP.
E. coli/ESBL bacteremia.
Recurrent SBP. Paracentesis every Tuesday
Decompensated cirrhosis.
Gastrointestinal hemorrhage from portal gastropathy.
Acute blood loss anemia.
TYSON.
Hepatitis C status post treatment with Epclusa
Plan:
Sepsis secondary to recurrent SBP and E. coli/ESBL bacteremia.
This post diagnostic paracentesis 11/15 with fluid findings consistent with SBP
Recent episode of SBP completed course of IV antibiotics and transition to doxycycline for suppression.
Repeat paracentesis 11/19 with WBC 12 830 87% PMN
Continue meropenem.
ID input appreciated
Decompensated alcoholic cirrhosis.
MELD 3.0 @21
Monitor for hepatic encephalopathy.
Continue lactulose and rifaximin
Presentation with melena.
Upper gastrointestinal hemorrhage.
Acute blood loss anemia with hemoglobin of 6.1
EGD 11/16 with varices and bleeding portal gastropathy treated
Off IV octreotide
Continue IV PPI.
Transfuse to keep hemoglobin above 8.
Received course of IV albumin
Adynamic ileus.
Minimize narcotics.
Keep on clear liquid diet.
TYSON baseline creatinine 1.0�1.7. Improved
Suspect renal in the settings of acute blood loss anemia. Urine sodium less than 5 confirming
Transfuse.
Albumin.
Hold diuretics including Lasix and spironolactone.
Urine sodium level pending
Acute urinary retention.
Stevens catheter placed on 11/16
Chronic pancytopenia secondary to cirrhosis.
Follow CBC
Hepatitis C status posttreatment with Epclusa.
Chronic pain
Essential hypertension.
Anxiety
History of skin cancer status post Mohs surgery
Tobacco use disorder
Anticipated Discharge: > 48 hours
Subjective/Interval History
-
Date of Service: November 19, 2024
Objective Data
-
Labs:
Laboratory Results
11/19/24
07:46
WBC 3.3 L
Hgb 6.7 L*
Hct 20.1 L*
Plt Count 34 L
Sodium 137
Potassium 3.7
Chloride 109 H
Carbon Dioxide 19 L
BUN 35 H
Creatinine 0.9
Glucose 107 H
Calcium 7.4 L
Total Bilirubin 4.5 H
AST 30
ALT 12
Alkaline Phosphatase 42
Vital Signs:
Vital Signs
Temp Pulse Resp BP Pulse Ox
99.4 F 77 16 93/41 94
11/19/24 12:31 11/19/24 12:31 11/19/24 12:31 11/19/24 12:31 11/19/24 12:31
I&O
11/18/24 11/19/24 11/20/24
06:59 06:59 06:59
Intake Total 480 / 480 2770 / 2770 0 / 0
Output Total 1550 / 1550 1425 / 1425
Balance -1070 / -1070 1345 / 1345 0 / 0
Physical Exam
-
General: Well Developed and No Apparent Distress
HEENT: Normocephalic, Atraumatic and Moist Mucous Membranes
Respiratory: Clear to Auscultation
Cardiac: Regular Rhythm and S1/S2; Negative Murmur, Rub or Gallop
GI: Soft, Normal Bowel Sounds, Tender and Distended; Negative Organomegaly
Rectal: Deferred by Provider
Musculoskeletal: No Clubbing, No Cyanosis and No Edema
Skin: Negative Rash
Neuro: Awake, Alert, Oriented, AO x 3 and Nonfocal/Grossly Intact
--- NOTE | 2024-11-19 16:49 | W.PN.ID1 ---
Date of Service
Date of Service: November 19, 2024
Today's Communication
Continue ertapenem for today.
Assessment / Plan
ESBl E coli Bacteremia
SBP (recurrent)
- Hx ESBL E. coli (09/2024)
Anemia
Normal white count with left shift
TYSON
Cirrhosis / ESLD (previously on transplant list)
Susp. GI bleed
COPD
Hx Hepatic encephalopathy
Hx of CVA
Recommendations:
Continue with ertapenem.
Watch creatinine clearance, improving
-->Unfortunately isolate remains ESBL E coli, and isolate is now intermediate to doxycycline, the only oral medication available. There are no oral options for suppression.
Monitor white count and temperature curve.
Prior PICC was removed due to recurrent bleeding
Continue with Xifaxan
EGD- bleb and gastric varices
����������������������������������������������������������
Chief Complaint
-: Bacteremia and Other (SBP)
Subjective / Review of Systems
Review of Systems: No Fever and No Chills
Vital Signs / Physical Exam
Vital Signs
Vital Signs
Temp Pulse Resp BP Pulse Ox
99.2 F 76 16 108/56 96
11/19/24 15:28 11/19/24 15:28 11/19/24 15:28 11/19/24 15:28 11/19/24 15:28
Physical Exam
Constitutional: No Acute Distress
Cardiovascular: Regular Rate and S1/S2; Negative S3/S4
Pulmonary: Clear and Symmetric; Negative Wheezes or Rales
Gastrointestinal: Soft, Distended and Normal Bowel Sounds
Skin: Warm and Dry; Negative Rash or Jaundice
Neurological: Awake and Alert
Psychological: Calm
Objective Data
Lab Data
Lab Results
11/19/24 07:46
11/19/24 07:46
PT 21.0 Sec (11.4-14.6) H 11/17/24 05:56
INR 1.79 11/17/24 05:56
Estimated Creat Clear 89 ml/min 11/19/24 07:46
Total Bilirubin 4.5 mg/dl (0.2-1.3) H 11/19/24 07:46
AST 30 U/L (17-59) 11/19/24 07:46
ALT 12 U/L (0-50) 11/19/24 07:46
Alkaline Phosphatase 42 U/L (38-126) 11/19/24 07:46
Most recent labs reviewed.
Micro Results:
11/19/24 08:31 Body Fluid Culture - Pending
Peritoneal Fluid Gram Stain - Preliminary
11/15/24 21:17 Blood Culture - Preliminary
Blood/Venous No Growth in 72 hours- Final report to follow
11/15/24 21:17 Blood Culture - Final
Blood/Venous Escherichia coli - ESBL
Gram Stain - Final
11/15/24 17:36 Body Fluid Culture - Final
Peritoneal Fluid Escherichia coli - ESBL
Gram Stain - Final
Ascites fluid
11/15/24 17:36
Fluid WBC 6420
Fluid Mononuclear Cell 10.7
Fl Polymorphonucl Cell 89.3
Fluid Total Protein 5.8
Fluid Albumin 3.4
Blood Culture Final 11/18/24-957
1. Escherichia coli - ESBL
M.I.C. RX
--------- ---
Amoxicillin/Potas. Clavulanate <=8/4 S
Ampicillin >16 R
Ampicillin/Sulbactam <=4/2 S
Aztreonam 16 R
Cefazolin >16 R
Cefepime 8 SDD
Ceftazidime R
Ceftriaxone >2 R
Ertapenem <=0.5 S
Ciprofloxacin >2 R
Gentamicin <=2 S
Meropenem <=1 S
Piperacillin/Tazobactam <=8 S
Tetracycline 8 I
Tobramycin <=2 S
Trimethoprim/Sulfamethoxazole >2/38 R
Imaging:
11/15/2024 CT abdomen/pelvis with IV contrast: Cirrhosis with extensive ascites, splenomegaly and perisplenic varices. Right inguinal hernia noted. Stable 9 mm calculus at the right ureteropelvic junction without associated hydronephrosis. Please
see full dictation for additional detail.
--- NOTE | 2024-11-19 17:04 | W.PN.GI.CBS2 ---
Today's Communication / Plan
-
Continue abx. Transfuse for Hgb <7.0, suspect oozing from PHG. No plans for repeat EGD at this time. Remains critically ill despite reassuring exam.
Assessment / Plan
-
Cortez Mazariegos is a 59 y.o. male who is very well-known to GI with past medical history of decompensated HCV/EtoH Cirrhosis c/b bleeding gastric varices, intractable ascites, recurrent SBP, thrombocytoepnia and hepatic encephalopathy who presents
from alf with abdominal pain, distension and black tarry stool.
Patient follows with Dr. Weaver as well as Dr. Dan ([facility]), previously being considered for liver transplantation, however, due to +PETH as well as UDS with + Cocaine (possible false positive?) with UDS +meth 1 year ago, he was no
longer considered a candidate for transplantation. In follow-up, Dr. Dan had asked that patient complete outpatient therapy and produce 2 negative PETH s to be reconsidered for liver transplantation. During his most recent hospitalization last
month, patient's was considering palliative care due to his worsening decompensation, deconditioning and frequest hospital admission with likely no possibility of liver transplantation, however, after recent admission, wants to pursue all
care, hoping to meet requirements to be again, considered for OLT. Current admission with sepsis 2/2 SBP and ESBL bacteremia on ertapenem, hospital course c/b GI bleeding s/p EGD on 11/16 with findings of oozing PHG, treated with APC , ileus and
TYSON.
EGD 11/16/24: - Bleb found in the esophagus.
- Gastric varices, without bleeding.
- Bleeding Portal hypertensive gastropathy. Treated
with a monopolar probe.
- No specimens collected.
#Decompensated Cirrhosis-- MELD 3.0 = 19
#Recurrent SBP now with ESBL
- currently on ertapenem, was on doxycycline 100 mg p.o. twice daily as an outpatient
-Received 1.5 mg/kg albumin on day 1 (11/15-11/16), 1mg/kg dosing of albumin day 3
-repeat paracentesis shows worsening WBC --> 17365 fluid WBC, >10K PMNs; will add on CEA, LDH, glucose to ascitic fluid
-unfortunately, isolate remains ESBL e.coli, now indeterminate to doxy, he will have to remain on indefinite IV abx for suppression, will need PICC line for this on discharge
#Melena w/ history of bleeding PHG, GOV1 s/p Ultrasound guided gastric artery coiling procedure (09/2024), now s/p EGD 11/16 with actively bleeding PHG, treated with APC
-Hgb 6.1; received 2 units PRBC; Hgb trended down to 6.7 today, receiving an additional unit
-BUN downtrending
-PPI gtt, transition to BID dosing
-Octreotide gtt compelted
-already on tx for SBP
-active T&C
-2 large bore peripheral gauge IVs
TYSON--resolved
Cr. peaked at 2.1
Diuretics held
Gaby <5, c/w prerenal
Ileus
-Abdominal xray demonstrates adynamic ileus, interval increase in gaseous distension of colon; transverse colon measures up to 9.3 cm, rectum does not appear significantly dilated
-d/c narcotic agents
-lactulose, xifaxin for HE
Given overall clinical picture, he has an extremely poor prognosis
Subjective
Subjective
Date of Service: November 19, 2024
Hgb 6.7 this morning, suspect oozing from PHG, only slightly decreased from yesterday. No melena. Being transfused with 1 unit PRBC. Repeat paracentesis today continues to show SBP.
Objective
Data Reviewed
Laboratory Data:
Laboratory Results
11/19/24 07:46
11/19/24 07:46
Laboratory Results
PT 21.0 Sec (11.4-14.6) H 11/17/24 05:56
INR 1.79 11/17/24 05:56
Total Bilirubin 4.5 mg/dl (0.2-1.3) H 11/19/24 07:46
AST 30 U/L (17-59) 11/19/24 07:46
ALT 12 U/L (0-50) 11/19/24 07:46
Alkaline Phosphatase 42 U/L (38-126) 11/19/24 07:46
Lipase 239 U/L (23-300) 11/15/24 16:30
Vital Signs and I&O:
Vital Signs
Temp Pulse Resp BP Pulse Ox
99.2 F 76 16 108/56 96
11/19/24 15:28 11/19/24 15:28 11/19/24 15:28 11/19/24 15:28 11/19/24 15:28
I&O
11/18/24 11/19/24 11/20/24
06:59 06:59 06:59
Intake Total 480 / 480 2770 / 2770 970 / 970
Output Total 1550 / 1550 1425 / 1425 350 / 350
Balance -1070 / -1070 1345 / 1345 620 / 620
Physical Exam
Physical Exam
HEENT: Anicteric
Cardiology: Normal Sinus Rhythm
Pulmonary: Clear (anterior)
GI: Soft, Distended, Non Tender and Other (+ ascites, + higher pitched BS)
Neuro: Non Focal
[2024-11-19 18:17] LABS: Body Fluid Glucose 86 mg/dl; Body Fluid LDH 533 U/L
[2024-11-19] MEDS: SYMBICORT 160/4.5 MCG INHALER 2 PUFF INH (19:51)
[2024-11-19] MEDS: PREPARATION H OINTMENT 1 APPLIC RECTAL (20:18)
[2024-11-19] MEDS: INVANZ 60 MG IV (22:01)
[2024-11-20 03:38] VITALS: BP 112/48
[2024-11-20 07:05] VITALS: BP 96/50
[2024-11-20 07:32] LABS: % Basophils 0.3 % (0-2); % Eosinophils 1.7 % (0-6); % Immature Granulocytes 0.8 % (0-0.5); % Lymphocytes 10.8 % (20.5-51.1); % Monocytes 9.7 % (1.7-9.3); % Neutrophils 76.7 % (42.2-75.2); Absolute Eosinophils 0.1 10^3/uL (0-0.7); Absolute Lymphocytes 0.4 10^3/uL (1.2-3.4); Absolute Monocytes 0.4 10^3/uL (0.1-0.6); Absolute Neutrophils 2.8 10^3/uL (1.4-6.5); Hemoglobin 7.2 g/dL (13.0-18.0); Mean Corp Hgb Conc. 34.3 g/dL (33.0-37.0); Mean Corpuscular Hgb 32.3 pg (27.0-31.0); Mean Corpuscular Volume 94.2 fL (80.0-94.0); Mean Platelet Volume 12.2 fL (7.4-10.4); Nucleated Red Blood Cells % 0 % (-); Platelet Count 38 10^3/uL (130-400); Red Blood Cell Count 2.23 10^6/uL (4.70-6.10); Red Cell Dist. Width 18.3 % (11.5-14.5); White Blood Cell Count 3.6 10^3/uL (4.8-10.8)
[2024-11-20] MEDS: SPIRIVA RESPIMAT 2.5 MCG INH (07:42)
[2024-11-20] MEDS: SYMBICORT 160/4.5 MCG INHALER INH ×2 (07:42→20:01)
[2024-11-20 08:01] LABS: Blood Urea Nitrogen 20 mg/dl (9-20); Calcium 7.1 mg/dl (8.4-10.2); Carbon Dioxide 22 mmol/L (22-30); Chloride 107 mmol/L (98-107); Estimated Creatinine Clearance 100 ml/min; Glucose 98 mg/dl (70-99); Potassium 3.4 mmol/L (3.5-5.1); Sodium 135 mmol/L (135-145); eGFR > 60.00
[2024-11-20] MEDS: MYLICON 80 MG PO ×3 (09:33→22:55)
[2024-11-20] MEDS: FOLVITE 1 MG PO (09:33)
[2024-11-20] MEDS: MAGNESIUM OXIDE 500 MG PO ×2 (09:33→19:48)
[2024-11-20] MEDS: XIFAXAN 550 MG PO ×2 (09:33→19:48)
[2024-11-20] MEDS: PREPARATION H OINTMENT 1 APPLIC RECTAL (09:34)
[2024-11-20] MEDS: ZINC 50 MG PO (09:34)
[2024-11-20] MEDS: NSS (PRESERVATIVE FREE) 10 ML IV ×2 (09:34→19:48)
[2024-11-20] MEDS: VITAMIN B1 100 MG PO (09:34)
[2024-11-20] MEDS: DUPHALAC/CHRONULAC PO ×2 (09:35→22:55)
[2024-11-20] MEDS: PROTONIX IV 40 MG IV ×2 (09:35→19:48)
[2024-11-20] MEDS: DESENEX/MITRAZOL/ZEASORB 1 APPLIC TOPICAL ×2 (09:35→19:52)
--- NOTE | 2024-11-20 09:59 | CM ---
Patient cont on IV antibiotic
Current with [facility]erral [facility]
Hgb today 7.2
PLAN: Discharge when medically stable, [facility]
[2024-11-20 10:15] LABS: LDH 174 U/L (120-246)
[2024-11-20 11:20] VITALS: BP 99/46
[2024-11-20] MEDS: KCL 40 MEQ PO (11:44)
[2024-11-20] MEDS: ULTRAM 50 MG PO ×2 (11:44→19:48)
[2024-11-20] MEDS: DUPHALAC/CHRONULAC 20 GRAMS PO ×2 (11:48→17:29)
--- NOTE | 2024-11-20 12:02 | W.PN.GI.CBS2 ---
Addendum entered and electronically signed by Inge Fitzpatrick DO 11/20/24 15:18:
The patient was seen and examined by me independently in collaboration with the nurse practitioner.
Past medical history/social history/medications/allergies/family history reviewed.
Lab data and imaging data reviewed.
Clinically, patient endorses improvement, despite worsening WBC in peritoneal fluid. Suspicious for secondary peritonitis, additional ascitic fluid studies and serum LDH reassuring, does not meet Runyans criteria. Agree with CT A/P with PO contrast
to better evaluate the bowel out of an abundance of caution. Reports he has a psych eval tomorrow as part of his OLT workup. Given recurrent SBP with ESBL bacteremia now requiring PICC line for indefinite IV abx, palliative care should certainly be
discussed again with patient and family. Poor prognosis.
Rest of care as outlined below.
Original Note:
Today's Communication / Plan
-
see below
for repeat CT with oral contrast
updated
Assessment / Plan
-
Cortez Mazariegos is a 59 y.o. male who is very well-known to GI with past medical history of decompensated HCV/EtoH Cirrhosis c/b bleeding gastric varices, intractable ascites, recurrent SBP, thrombocytoepnia and hepatic encephalopathy who presents
from [facility] with abdominal pain, distension and black tarry stool.
Patient follows with Dr. Weaver as well as Dr. Dan ([facility] [place] [facility]), previously being considered for liver transplantation, however, due to +PETH as well as UDS with + Cocaine (possible false positive?) with UDS +meth 1 year ago, he was no
longer considered a candidate for transplantation. In follow-up, Dr. Dan had asked that patient complete outpatient therapy and produce 2 negative PETH s to be reconsidered for liver transplantation. During his most recent hospitalization last
month, patient's was considering palliative care due to his worsening decompensation, deconditioning and frequest hospital admission with likely no possibility of liver transplantation, however, after recent admission, wants to pursue all
care, hoping to meet requirements to be again, considered for OLT. Current admission with sepsis 2/2 SBP and ESBL bacteremia on ertapenem, hospital course c/b GI bleeding s/p EGD on 11/16 with findings of oozing PHG, treated with APC , ileus and
TYSON.
EGD 11/16/24: - Bleb found in the esophagus.
- Gastric varices, without bleeding.
- Bleeding Portal hypertensive gastropathy. Treated
with a monopolar probe.
- No specimens collected.
#Decompensated Cirrhosis-- MELD 3.0 = 19
due for psych eval tomorrow but rescheduling as still inpatient
#Recurrent SBP now with ESBL
- currently on ertapenem, was on doxycycline 100 mg p.o. twice daily as an outpatient
-s/p albumin day 1 and Day 3
-repeat paracentesis shows worsening WBC --> 26052 fluid WBC, >10K PMNs; will add on CEA, LDH, glucose to ascitic fluid
-unfortunately, isolate remains ESBL e.coli, now indeterminate to doxy, he will have to remain on indefinite IV abx for suppression, will need PICC line for this on discharge
-reviewed with Dr. Fitzpatrick and Dr. Welsh will repeat CT with oral contrast only to ensure no other GI issue leading to source of bacteremia-- prior CT 11/15 with IV only
updated
#Melena w/ history of bleeding PHG, GOV1 s/p Ultrasound guided gastric artery coiling procedure (09/2024), now s/p EGD 11/16 with actively bleeding PHG, treated with APC
-Hgb 6.1; received 2 units PRBC; Hgb 7.2
-BUN normal
cont PPI BID s./p octeotide completed
-PPI gtt, transition to BID dosing
TYSON--resolved
Cr. peaked at 2.1
Diuretics held
Gaby <5, c/w prerenal
Ileus
-Abdominal xray demonstrates adynamic ileus, interval increase in gaseous distension of colon; transverse colon measures up to 9.3 cm, rectum does not appear significantly dilated
-d/c narcotic agents
-lactulose, Xifaxan for HE
will repeat CT with oral contrast today
will cont to follow
Subjective
Subjective
Date of Service: November 20, 2024
brown loose stools on full liquid diet
Objective
Data Reviewed
Laboratory Data:
Laboratory Results
11/20/24 06:10
11/20/24 06:10
Laboratory Results
PT 21.0 Sec (11.4-14.6) H 11/17/24 05:56
INR 1.79 11/17/24 05:56
Total Bilirubin 4.5 mg/dl (0.2-1.3) H 11/19/24 07:46
AST 30 U/L (17-59) 11/19/24 07:46
ALT 12 U/L (0-50) 11/19/24 07:46
Alkaline Phosphatase 42 U/L (38-126) 11/19/24 07:46
Lipase 239 U/L (23-300) 11/15/24 16:30
Vital Signs and I&O:
Vital Signs
Temp Pulse Resp BP Pulse Ox
99.2 F 74 16 99/46 97
11/20/24 11:20 11/20/24 11:20 11/20/24 11:20 11/20/24 11:20 11/20/24 11:20
I&O
11/19/24 11/20/24 11/21/24
06:59 06:59 06:59
Intake Total 2770 / 2770 1450 / 1450
Output Total 1425 / 1425 350 / 350
Balance 1345 / 1345 1100 / 1100
Physical Exam
Physical Exam
HEENT: Anicteric and Moist mucous membranes
Cardiology: Normal Sinus Rhythm
Pulmonary: Clear
GI: Soft, Distended and Tender (diffuse pain upper and some lower pain with scrotal swelling)
Extremities: Edema
Neuro: Non Focal
[2024-11-20] MEDS: OMNIPAQUE 50 ML PO (14:36)
--- NOTE | 2024-11-20 14:59 | W.PN.ID1 ---
Date of Service
Date of Service: November 20, 2024
Today's Communication
Continue ertapenem for today.
Assessment / Plan
ESBl E coli Bacteremia
SBP (recurrent)
- Hx ESBL E. coli (09/2024)
Anemia
Normal white count with left shift
TYSON
Cirrhosis / ESLD (previously on transplant list)
Susp. GI bleed
COPD
Hx Hepatic encephalopathy
Hx of CVA
Recommendations:
Continue with ertapenem.
Monitor creatinine clearance. Serum creatinine has normalized.
-->Unfortunately the recovered isolate remains ESBL E coli, and the isolate is now intermediate to doxycycline, the only oral medication available.
- There appears to be no oral options for suppression.
Monitor white count and temperature curve.
Prior PICC was removed due to recurrent bleeding
Continue with Xifaxan
EGD- bleb and gastric varices
����������������������������������������������������������
Chief Complaint
-: Bacteremia and Other (SBP)
Subjective / Review of Systems
Review of Systems: No Fever, No Chills, Abdominal Pain and No Nausea
Vital Signs / Physical Exam
Vital Signs
Vital Signs
Temp Pulse Resp BP Pulse Ox
99.2 F 74 16 99/46 97
11/20/24 11:20 11/20/24 11:20 11/20/24 11:20 11/20/24 11:20 11/20/24 11:20
Physical Exam
Constitutional: No Acute Distress, Comfortable, Chronically Ill and Non-toxic
Eyes: Sclera Anicteric
Cardiovascular: Regular Rate and S1/S2; Negative S3/S4
Pulmonary: Clear and Symmetric; Negative Wheezes or Rales
Gastrointestinal: Soft, Distended and Normal Bowel Sounds
Skin: Warm and Dry; Negative Rash or Jaundice
Neurological: Awake and Alert
Psychological: Calm
Objective Data
Lab Data
Lab Results
11/20/24 06:10
11/20/24 06:10
PT 21.0 Sec (11.4-14.6) H 11/17/24 05:56
INR 1.79 11/17/24 05:56
Estimated Creat Clear 100 ml/min 11/20/24 06:10
Total Bilirubin 4.5 mg/dl (0.2-1.3) H 11/19/24 07:46
AST 30 U/L (17-59) 11/19/24 07:46
ALT 12 U/L (0-50) 11/19/24 07:46
Alkaline Phosphatase 42 U/L (38-126) 11/19/24 07:46
Most recent labs reviewed.
Micro Results:
11/19/24 08:31 Body Fluid Culture - Preliminary
Peritoneal Fluid No Growth After 18-24 Hours
Gram Stain - Preliminary
11/15/24 21:17 Blood Culture - Preliminary
Blood/Venous No Growth in 4 days- Final report to follow
11/15/24 21:17 Blood Culture - Final
Blood/Venous Escherichia coli - ESBL
Gram Stain - Final
11/15/24 17:36 Body Fluid Culture - Final
Peritoneal Fluid Escherichia coli - ESBL
Gram Stain - Final
Ascites fluid
Laboratory Tests
11/15/24 11/19/24
17:36 08:31
Fluid WBC 6420 17805
Fluid Mononuclear Cell 10.7 12.8
Fl Polymorphonucl Cell 89.3 87.2
Fluid Glucose 86
Blood Culture Final 11/18/24-957
1. Escherichia coli - ESBL
M.I.C. RX
--------- ---
Amoxicillin/Potas. Clavulanate <=8/4 S
Ampicillin >16 R
Ampicillin/Sulbactam <=4/2 S
Aztreonam 16 R
Cefazolin >16 R
Cefepime 8 SDD
Ceftazidime R
Ceftriaxone >2 R
Ertapenem <=0.5 S
Ciprofloxacin >2 R
Gentamicin <=2 S
Meropenem <=1 S
Piperacillin/Tazobactam <=8 S
Tetracycline 8 I
Tobramycin <=2 S
Trimethoprim/Sulfamethoxazole >2/38 R
Imaging:
11/15/2024 CT abdomen/pelvis with IV contrast: Cirrhosis with extensive ascites, splenomegaly and perisplenic varices. Right inguinal hernia noted. Stable 9 mm calculus at the right ureteropelvic junction without associated hydronephrosis. Please
see full dictation for additional detail.
Care Review
Plan reviewed with: Other Provider (GI)
[2024-11-20 15:05] VITALS: BP 103/54
--- NOTE | 2024-11-20 15:10 | W.PN.HOSP.TC ---
Today's Communication/Plan
-
Monitor for recurrent bleeding
Follow hemoglobin.
Continue IV PPI.
Reimage with CT scan of the abdomen
Continue meropenem.
Advance to full liquid diet.
Reintroduce Ultram with caution
Assessment / Plan
Assessment / Plan
Impression:
Sepsis secondary to SBP.
E. coli/ESBL bacteremia.
Recurrent SBP. Paracentesis every Tuesday
Decompensated cirrhosis.
Gastrointestinal hemorrhage from portal gastropathy.
Acute blood loss anemia.
TYSON.
Hepatitis C status post treatment with Epclusa
Plan:
Sepsis secondary to recurrent SBP and E. coli/ESBL bacteremia.
This post diagnostic paracentesis 11/15 with fluid findings consistent with SBP
Recent episode of SBP completed course of IV antibiotics and transition to doxycycline for suppression.
Repeat paracentesis 11/19 with WBC 12 830 87% PMN
Continue meropenem.
Plan is to reimage with CT scan of the abdomen and pelvis to ensure any other possible source of E. coli bacteremia
Decompensated alcoholic cirrhosis.
MELD 3.0 @21
Monitor for hepatic encephalopathy.
Continue lactulose and rifaximin
Presentation with melena.
Upper gastrointestinal hemorrhage.
Acute blood loss anemia with hemoglobin of 6.1
EGD 11/16 with varices and bleeding portal gastropathy treated
Off IV octreotide
Continue IV PPI.
Transfuse to keep hemoglobin above 8.
Received course of IV albumin
Adynamic ileus.
Minimize narcotics.
Full liquid diet
TYSON baseline creatinine 1.0�1.7. Improved
Suspect renal in the settings of acute blood loss anemia. Urine sodium less than 5 confirming
Transfuse.
Albumin.
Hold diuretics including Lasix and spironolactone.
Urine sodium level pending
Acute urinary retention.
Stevens catheter placed on 11/16
Chronic pancytopenia secondary to cirrhosis.
Follow CBC
Hepatitis C status posttreatment with Epclusa.
Chronic pain
Essential hypertension.
Anxiety
History of skin cancer status post Mohs surgery
Tobacco use disorder
Anticipated Discharge: > 48 hours
Subjective/Interval History
-
Date of Service: November 20, 2024
Objective Data
-
Labs:
Laboratory Results
11/20/24
06:10
WBC 3.6 L
Hgb 7.2 L
Hct 21.0 L
Plt Count 38 L
Sodium 135
Potassium 3.4 L
Chloride 107
Carbon Dioxide 22
BUN 20
Creatinine 0.8
Glucose 98
Calcium 7.1 L
Vital Signs:
Vital Signs
Temp Pulse Resp BP Pulse Ox
99.2 F 74 16 99/46 97
11/20/24 11:20 11/20/24 11:20 11/20/24 11:20 11/20/24 11:20 11/20/24 11:20
I&O
11/19/24 11/20/24 11/21/24
06:59 06:59 06:59
Intake Total 2770 / 2770 1450 / 1450
Output Total 1425 / 1425 350 / 350
Balance 1345 / 1345 1100 / 1100
Physical Exam
-
General: Well Developed and No Apparent Distress
HEENT: Normocephalic, Atraumatic and Moist Mucous Membranes
Respiratory: Clear to Auscultation
Cardiac: Regular Rhythm and S1/S2; Negative Murmur, Rub or Gallop
GI: Soft, Normal Bowel Sounds, Tender and Distended; Negative Organomegaly
Rectal: Deferred by Provider
Musculoskeletal: No Clubbing, No Cyanosis and No Edema
Skin: Negative Rash
Neuro: Awake, Alert, Oriented, AO x 3 and Nonfocal/Grossly Intact
[2024-11-20] MEDS: ROBITUSSIN DM 5 ML PO (17:30)
[2024-11-20 19:17] VITALS: BP 108/51
[2024-11-20] MEDS: PREPARATION H OINTMENT RECTAL (19:53)
[2024-11-20] MEDS: INVANZ 60 MG IV (22:55)
[2024-11-20 23:31] VITALS: BP 160/56
--- NOTE | 2024-11-21 00:30 | PTCARENOTE ---
temp at 2330- 102.1- removed heated blanket from patient and advised patient not to use blanket, retook temp it was 99.1
[2024-11-21 03:07] VITALS: BP 101/46
[2024-11-21 06:32] LABS: INR 1.66; PT 19.8 Sec (11.4-14.6)
[2024-11-21 07:02] LABS: ALT (SGPT) 18 U/L (0-50); AST (SGOT) 57 U/L (17-59); Albumin 2.6 g/dl (3.5-5.0); Alkaline Phosphatase 83 U/L (38-126); Blood Urea Nitrogen 13 mg/dl (9-20); Calcium 7.4 mg/dl (8.4-10.2); Carbon Dioxide 20 mmol/L (22-30); Chloride 108 mmol/L (98-107); Estimated Creatinine Clearance 114 ml/min; Glucose 89 mg/dl (70-99); Potassium 3.8 mmol/L (3.5-5.1); Sodium 137 mmol/L (135-145); Total Bilirubin 5.4 mg/dl (0.2-1.3); Total Protein 4.5 g/dl (6.3-8.2); eGFR > 60.00
--- NOTE | 2024-11-21 07:02 | W.PN.GI.CBS2 ---
Addendum entered and electronically signed by MARCIA Valdez 11/21/24 16:15:
reviewed with Dr. Nanette weiss from GI for discharge. High risk for return with chronic liver disease as reviewed in past. abx per ID. Will sign off call back with questions.
Addendum entered and electronically signed by MARCIA Valdez 11/21/24 11:25:
WBC on tap reviewed and improved -- 1493-- updated
Addendum entered and electronically signed by Inge Fitzpatrick DO 11/21/24 08:14:
The patient was seen and examined by me independently in collaboration with the nurse practitioner.
Past medical history/social history/medications/allergies/family history reviewed.
Lab data and imaging data reviewed.
Patient seen with Pily Morrison, KATERNIA. Patient febrile overnight to 102, but remains overall asymptomatic. Despite worsening white count in ascitic fluid but his reports of abdominal pain/discomfort and physical exam has improved, which is somewhat
baffling. CT A/P with PO contrast without evidence of nahomy perforation. Possibly a microperforation?
--Recommend repeat diagnostic paracentesis today
--repeat Bcx
--continue ertapenem, ID following
Original Note:
Today's Communication / Plan
-
fever 102 overnight
cont abx per ID
will repeat tap today with continued elevated WBC and higher 11/19
CT with oral contrast with noted mesenteric stranding and noted hernia
trend hbg with anemia
cont Xifaxan and Lactulose -- monitor stool output as now on Mag BID may require less lactulose daily
advance to 2 gram Na diet with supplement as contrast passing to colon on imaging
Assessment / Plan
-
Cortez Mazariegos is a 59 y.o. male who is very well-known to GI with past medical history of decompensated HCV/EtoH Cirrhosis c/b bleeding gastric varices, intractable ascites, recurrent SBP, thrombocytoepnia and hepatic encephalopathy who presents
from intermediate with abdominal pain, distension and black tarry stool. Patient follows with Dr. Weaver as well as Dr. Dan ([facility]), previously being considered for liver transplantation, however, due to +PETH as well as UDS with
+ Cocaine (possible false positive?) with UDS +meth 1 year ago, he was no longer considered a candidate for transplantation. In follow-up, Dr. Dan had asked that patient complete outpatient therapy and produce 2 negative PETH s to be
reconsidered for liver transplantation. During his most recent hospitalization last month, patient's was considering palliative care due to his worsening decompensation, deconditioning and frequest hospital admission with likely no possibility
of liver transplantation, however, after recent admission, wants to pursue all care, hoping to meet requirements to be again, considered for OLT. Current admission with sepsis 2/2 SBP and ESBL bacteremia on ertapenem, hospital course c/b GI
bleeding s/p EGD on 11/16 with findings of oozing PHG, treated with APC , ileus and TYSON.
EGD 11/16/24: - Bleb found in the esophagus.
- Gastric varices, without bleeding.
- Bleeding Portal hypertensive gastropathy. Treated
with a monopolar probe.
- No specimens collected.
11/21/24 CT Abd/pel (oral only)-DH Only
Hepatic cirrhotic morphology again seen with marked ascites, splenomegaly and upper abdominal/perisplenic varices again noted.
Mesenteric stranding associated with the ascites, cannot exclude peritonitis.
No intestinal obstruction or free air.
Right inguinal hernia again seen containing fluid extending into the right hemiscrotum.
Small right paraumbilical anterior abdominal wall hernia containing fluid.
Evaluation of liver or space-occupying lesion markedly limited without intravenous contrast and with beam hardening artifact.
gallbladder sludge/tiny stones no biliary tract dilation
#Decompensated Cirrhosis-- MELD 3.0 = 20 11/21 labs -- follows with Dr. Dan at [facility]
due for psych eval with [facility] but family was rescheduling with current admission
#Recurrent SBP now with ESBL
fever 102.1 overnight
- currently on ertapenem, was on doxycycline 100 mg p.o. twice daily as an outpatient prior to admission
ID following for antibiotics
-s/p albumin day 1 and Day 3 completed
- 11/19 paracentesis shows worsening WBC --> 14327 fluid WBC, >10K PMNs; 11/19 tap glucose 86, LHD 53 CEA pending -- will repeat tap again today add repeat glucose
-unfortunately, isolate remains ESBL e.coli, now indeterminate to doxy, he will have to remain on indefinite IV abx for suppression, will need PICC line for this on discharge
-repeat CT as noted with some mesenteric stranding, inguinal hernia and small paraumbilical hernia without leak
#Melena w/ history of bleeding PHG, GOV1 s/p Ultrasound guided gastric artery coiling procedure (09/2024), now s/p EGD 11/16 with actively bleeding PHG, treated with APC
-Hgb 7.2 11/20 repeat pending total 4 units given this admission
-BUN normal
cont PPI BID s./p octeotide completed
#TYSON--resolved
Cr. peaked at 2.1
Diuretics held on admission but now on Lasix 20mg, Aldactone 12.5mg daily
Gaby <5, c/w prerenal
#Ileus
-Abdominal xray demonstrates adynamic ileus, interval increase in gaseous distension of colon; transverse colon measures up to 9.3 cm, rectum does not appear significantly dilated
CT with oral contrast stable
#thrombocytopenia
#hx HE
cont -lactulose, Xifaxan
#hypoalbuminemia
will cont to follow
Subjective
Subjective
Date of Service: November 21, 2024
full liquid diet, several brown stool-- tmax 102 but abdominal pain improved
Objective
Data Reviewed
Laboratory Data:
Laboratory Results
PT 19.8 Sec (11.4-14.6) H 11/21/24 05:23
INR 1.66 11/21/24 05:23
Total Bilirubin 4.5 mg/dl (0.2-1.3) H 11/19/24 07:46
AST 30 U/L (17-59) 11/19/24 07:46
ALT 12 U/L (0-50) 11/19/24 07:46
Alkaline Phosphatase 42 U/L (38-126) 11/19/24 07:46
Lipase 239 U/L (23-300) 11/15/24 16:30
Vital Signs and I&O:
Vital Signs
Temp Pulse Resp BP Pulse Ox
99.8 F 76 16 101/46 92
11/21/24 03:07 11/21/24 03:07 11/21/24 03:07 11/21/24 03:07 11/21/24 03:07
I&O
11/20/24 11/21/24 11/22/24
06:59 06:59 06:59
Intake Total 1450 / 1450 1200 / 1200
Output Total 350 / 350
Balance 1100 / 1100 1200 / 1200
Physical Exam
Physical Exam
HEENT: Anicteric and Moist mucous membranes
Cardiology: Normal Sinus Rhythm
Pulmonary: Clear
GI: Soft, Distended and Tender (very minimal)
Extremities: Edema
Neuro: Non Focal
[2024-11-21 07:05] VITALS: BP 101/49
[2024-11-21 07:20] LABS: % Eosinophils 4.5 % (0-6); % Lymphocytes 12.1 % (20.5-51.1); % Monocytes 8.7 % (1.7-9.3); % Neutrophils 73.7 % (42.2-75.2); Absolute Eosinophils 0.1 10^3/uL (0-0.7); Absolute Lymphocytes 0.4 10^3/uL (1.2-3.4); Absolute Monocytes 0.3 10^3/uL (0.1-0.6); Absolute Neutrophils 2.1 10^3/uL (1.4-6.5); Hematocrit 22.6 % (39.0-52.0); Hemoglobin 7.5 g/dL (13.0-18.0); Mean Corp Hgb Conc. 33.2 g/dL (33.0-37.0); Mean Corpuscular Hgb 31.6 pg (27.0-31.0); Mean Corpuscular Volume 95.4 fL (80.0-94.0); Mean Platelet Volume 11.4 fL (7.4-10.4); Nucleated Red Blood Cells % 0 % (-); Platelet Count 45 10^3/uL (130-400); Red Blood Cell Count 2.37 10^6/uL (4.70-6.10); Red Cell Dist. Width 18.3 % (11.5-14.5); White Blood Cell Count 2.9 10^3/uL (4.8-10.8)
[2024-11-21] MEDS: SYMBICORT 160/4.5 MCG INHALER INH ×2 (07:36→20:07)
[2024-11-21] MEDS: SPIRIVA RESPIMAT 2.5 MCG INH (07:36)
[2024-11-21] MEDS: PROTONIX IV 40 MG IV ×2 (08:40→20:00)
[2024-11-21] MEDS: NSS (PRESERVATIVE FREE) 10 ML IV ×2 (08:40→20:00)
[2024-11-21] MEDS: ZINC 50 MG PO (08:41)
[2024-11-21] MEDS: FOLVITE 1 MG PO (08:41)
[2024-11-21] MEDS: VITAMIN B1 100 MG PO (08:41)
[2024-11-21] MEDS: XIFAXAN 550 MG PO ×2 (08:41→20:00)
[2024-11-21] MEDS: MYLICON 80 MG PO ×3 (08:41→21:24)
[2024-11-21] MEDS: DESENEX/MITRAZOL/ZEASORB 1 APPLIC TOPICAL ×2 (08:41→20:02)
[2024-11-21] MEDS: MAGNESIUM OXIDE 500 MG PO ×2 (08:41→20:00)
[2024-11-21] MEDS: DUPHALAC/CHRONULAC 20 GRAMS PO ×2 (08:41→17:00)
[2024-11-21] MEDS: PREPARATION H OINTMENT 1 APPLIC RECTAL (08:43)
[2024-11-21] MEDS: ULTRAM 50 MG PO ×2 (08:48→20:02)
[2024-11-21 09:10] VITALS: BP 125/58; BP_SYST 77
[2024-11-21 10:37] LABS: Body Fluid Mononuclear 32.3 %; Body Fluid Polymorphonuclear 67.7 %; Body Fluid WBC 1493 /CUMM
[2024-11-21 10:39] LABS: Body Fluid Amylase < 30 U/L; Body Fluid Protein < 2.0 g/dl
[2024-11-21 10:40] LABS: Body Fluid Second Tech ASW
--- NOTE | 2024-11-21 11:06 | W.PN.ID1 ---
Date of Service
Date of Service: November 21, 2024
Today's Communication
Continue ertapenem.
Assessment / Plan
ESBl E coli Bacteremia
SBP (recurrent)
- Hx ESBL E. coli (09/30 and 11/15/24)
Anemia
Normal white count with left shift
TYSON
Cirrhosis / ESLD (previously on transplant list)
Susp. GI bleed
COPD
Hx Hepatic encephalopathy
Hx of CVA
Recommendations:
Continue with ertapenem. Would complete an additional [address] Midline.
Monitor creatinine clearance. Serum creatinine has normalized.
-->Unfortunately the recovered isolate remains ESBL E coli, and the isolate is now intermediate to doxycycline, the only oral medication available.
- There appears to be no oral options for suppression, and recurrent infection is not unlikely. Given such, patient may be approaching 'hospice appropriate'.
Continue with Xifaxan
EGD- bleb and gastric varices
����������������������������������������������������������
Chief Complaint
-: Bacteremia and Other (SBP)
Subjective / Review of Systems
Review of Systems: No Fever and No Chills
Vital Signs / Physical Exam
Vital Signs
Vital Signs
Temp Pulse Resp BP Pulse Ox
98.6 F 77 18 125/58 96
11/21/24 09:10 11/21/24 09:10 11/21/24 09:10 11/21/24 09:10 11/21/24 09:10
Physical Exam
Constitutional: No Acute Distress, Comfortable, Chronically Ill and Non-toxic
Eyes: Sclera Anicteric
Cardiovascular: Regular Rate and S1/S2; Negative S3/S4
Pulmonary: Clear and Symmetric; Negative Wheezes or Rales
Gastrointestinal: Soft, Distended and Normal Bowel Sounds
Skin: Warm and Dry; Negative Rash or Jaundice
Neurological: Awake and Alert
Psychological: Calm
Objective Data
Lab Data
Lab Results
11/21/24 05:24
11/21/24 05:24
PT 19.8 Sec (11.4-14.6) H 11/21/24 05:23
INR 1.66 11/21/24 05:23
Estimated Creat Clear 114 ml/min 11/21/24 05:24
Total Bilirubin 5.4 mg/dl (0.2-1.3) H 11/21/24 05:24
AST 57 U/L (17-59) 11/21/24 05:24
ALT 18 U/L (0-50) 11/21/24 05:24
Alkaline Phosphatase 83 U/L (38-126) 11/21/24 05:24
Most recent labs reviewed.
Micro Results:
11/21/24 09:37 Body Fluid Culture - Pending
Peritoneal Fluid Gram Stain - Pending
11/19/24 08:31 Body Fluid Culture - Preliminary
Peritoneal Fluid No Growth After 48 Hours
Gram Stain - Preliminary
11/15/24 21:17 Blood Culture - Final
Blood/Venous No Growth - Final Report
11/15/24 21:17 Blood Culture - Final
Blood/Venous Escherichia coli - ESBL
Gram Stain - Final
11/15/24 17:36 Body Fluid Culture - Final
Peritoneal Fluid Escherichia coli - ESBL
Gram Stain - Final
Ascites fluid
Laboratory Tests
11/15/24 11/19/24 11/21/24
17:36 08:31
Fluid WBC 6420 23709 1493
Fluid Mononuclear Cell 10.7 12.8 32.3
Fl Polymorphonucl Cell 89.3 87.2 67.7
Fluid Glucose 86
Blood Culture Final 11/18/24-58
1. Escherichia coli - ESBL
M.I.C. RX
--------- ---
Amoxicillin/Potas. Clavulanate <=8/4 S
Ampicillin >16 R
Ampicillin/Sulbactam <=4/2 S
Aztreonam 16 R
Cefazolin >16 R
Cefepime 8 SDD
Ceftazidime R
Ceftriaxone >2 R
Ertapenem <=0.5 S
Ciprofloxacin >2 R
Gentamicin <=2 S
Meropenem <=1 S
Piperacillin/Tazobactam <=8 S
Tetracycline 8 I
Tobramycin <=2 S
Trimethoprim/Sulfamethoxazole >2/38 R
Imaging:
11/15/2024 CT abdomen/pelvis with IV contrast: Cirrhosis with extensive ascites, splenomegaly and perisplenic varices. Right inguinal hernia noted. Stable 9 mm calculus at the right ureteropelvic junction without associated hydronephrosis. Please
see full dictation for additional detail.
Care Review
Plan reviewed with: Physician (Hospitalist)
[2024-11-21 11:20] VITALS: BP 103/55
[2024-11-21 15:05] VITALS: BP 102/54
--- NOTE | 2024-11-21 15:32 | CM ---
Patient seen at bedside.
Paracentesis today-3800 cc
Cont on IV antibiotics
current with [facility]
PLAN: [facility] when medically stable
--- NOTE | 2024-11-21 17:02 | W.PN.HOSP.TC ---
Today's Communication/Plan
-
Continue IV antibiotics for now.
Monitor for ascitic fluid reaccumulation.
Diet has been advanced
Monitor hemoglobin
Continue IV PPI
Holding diuretics for now.
Assessment / Plan
Assessment / Plan
Impression:
Sepsis secondary to SBP.
E. coli/ESBL bacteremia.
Recurrent SBP. Paracentesis every Tuesday
Decompensated cirrhosis.
Gastrointestinal hemorrhage from portal gastropathy.
Acute blood loss anemia.
TYSON.
Hepatitis C status post treatment with Epclusa
Plan:
Sepsis secondary to recurrent SBP and E. coli/ESBL bacteremia.
This post diagnostic paracentesis 11/15 with fluid findings consistent with SBP
Recent episode of SBP completed course of IV antibiotics and transition to doxycycline for suppression.
CT scan of abdomen and pelvis on 09/20 with no new abnormalities explaining recurrent SBP.
Repeat paracentesis 11/19 with WBC 12 830 87% PMN
Repeat paracentesis 11/21 3800 mL removed with trending down WBC at 1493
Continue meropenem.
Decompensated alcoholic cirrhosis.
MELD 3.0 @21
Monitor for hepatic encephalopathy.
Continue lactulose and rifaximin
Presentation with melena.
Upper gastrointestinal hemorrhage.
Acute blood loss anemia with hemoglobin of 6.1
EGD 11/16 with varices and bleeding portal gastropathy treated
Off IV octreotide
Continue IV PPI.
Transfuse to keep hemoglobin above 8.
Received course of IV albumin
Adynamic ileus.
Minimize narcotics.
Full liquid diet
TYSON baseline creatinine 1.0�1.7. Improved
Suspect renal in the settings of acute blood loss anemia. Urine sodium less than 5 confirming
Transfuse.
Albumin.
Hold diuretics including Lasix and spironolactone.
Urine sodium level pending
Acute urinary retention.
Stevens catheter placed on 11/16
Chronic pancytopenia secondary to cirrhosis.
Follow CBC
Hepatitis C status posttreatment with Epclusa.
Chronic pain
Essential hypertension.
Anxiety
History of skin cancer status post Mohs surgery
Tobacco use disorder
Anticipated Discharge: > 48 hours
Subjective/Interval History
-
Date of Service: November 21, 2024
Objective Data
-
Labs:
Laboratory Results
11/21/24 11/21/24
05:23 05:24
WBC 2.9 L
Hgb 7.5 L
Hct 22.6 L
Plt Count 45 L
PT 19.8 H
INR 1.66
Sodium 137
Potassium 3.8
Chloride 108 H
Carbon Dioxide 20 L
BUN 13
Creatinine 0.7
Glucose 89
Calcium 7.4 L
Total Bilirubin 5.4 H
AST 57
ALT 18
Alkaline Phosphatase 83
Vital Signs:
Vital Signs
Temp Pulse Resp BP Pulse Ox
98.4 F 74 16 102/54 95
11/21/24 15:05 11/21/24 15:05 11/21/24 15:05 11/21/24 15:05 11/21/24 15:05
I&O
11/20/24 11/21/24 11/22/24
06:59 06:59 06:59
Intake Total 1450 / 1450 1200 / 1200
Output Total 350 / 350
Balance 1100 / 1100 1200 / 1200
Physical Exam
-
General: Well Developed and No Apparent Distress
HEENT: Normocephalic, Atraumatic and Moist Mucous Membranes
Respiratory: Clear to Auscultation
Cardiac: Regular Rhythm and S1/S2; Negative Murmur, Rub or Gallop
GI: Soft, Normal Bowel Sounds, Tender and Distended; Negative Organomegaly
Rectal: Deferred by Provider
Musculoskeletal: No Clubbing, No Cyanosis and No Edema
Skin: Negative Rash
Neuro: Awake, Alert, Oriented, AO x 3 and Nonfocal/Grossly Intact
[2024-11-21] MEDS: PREPARATION H OINTMENT RECTAL (20:02)
[2024-11-21] MEDS: INVANZ 60 MG IV (21:24)
[2024-11-21] MEDS: DUPHALAC/CHRONULAC PO (21:24)
[2024-11-21 23:28] VITALS: BP 110/62
[2024-11-22] MEDS: SYMBICORT 160/4.5 MCG INHALER INH ×2 (07:19→19:41)
[2024-11-22] MEDS: SPIRIVA RESPIMAT 2.5 MCG INH (07:19)
[2024-11-22 07:47] VITALS: BP 101/47
[2024-11-22] MEDS: VITAMIN B1 100 MG PO (08:23)
[2024-11-22] MEDS: MAGNESIUM OXIDE 500 MG PO ×2 (08:23→19:51)
[2024-11-22] MEDS: ZINC 50 MG PO (08:23)
[2024-11-22] MEDS: FOLVITE 1 MG PO (08:23)
[2024-11-22] MEDS: DESENEX/MITRAZOL/ZEASORB 1 APPLIC TOPICAL ×2 (08:24→19:52)
[2024-11-22] MEDS: XIFAXAN 550 MG PO ×2 (08:24→19:51)
[2024-11-22] MEDS: NSS (PRESERVATIVE FREE) 10 ML IV ×2 (08:24→19:51)
[2024-11-22] MEDS: PREPARATION H OINTMENT 1 APPLIC RECTAL (08:24)
[2024-11-22] MEDS: PROTONIX IV 40 MG IV ×2 (08:24→19:52)
[2024-11-22] MEDS: MYLICON 80 MG PO ×3 (08:24→21:02)
[2024-11-22] MEDS: DUPHALAC/CHRONULAC 20 GRAMS PO ×2 (08:24→15:34)
[2024-11-22] MEDS: ULTRAM 50 MG PO ×2 (08:39→21:01)
--- NOTE | 2024-11-22 13:02 | W.PN.ID1 ---
Date of Service
Date of Service: November 22, 2024
Today's Communication
Continue antibiotics. See below�
Assessment / Plan
ESBl E coli Bacteremia
SBP (recurrent)
- Hx ESBL E. coli (09/30 and 11/15/24)
Anemia
Normal white count with left shift
TYSON
Cirrhosis / ESLD (previously on transplant list)
Susp. GI bleed
COPD
Hx Hepatic encephalopathy
Hx of CVA
Recommendations:
Continue with ertapenem through 12/06/2024. Home infusion sheet has been given to case management.
Midline ordered.
Unfortunately the recovered ESBL E coli is now intermediate to doxycycline, the only oral medication available.
There appears to be no oral options for suppression, and recurrent infection is not unlikely, especially given underlying cirrhosis which leads to multiple impairments of the immune system (including changes in humoral immunity, decreased synthesis
and complement).
Given the above, patient may be approaching 'hospice appropriate'.
Continue with Xifaxan.
����������������������������������������������������������
Chief Complaint
-: Bacteremia and Other (SBP)
Subjective / Review of Systems
Review of Systems: No Fever and No Chills
Vital Signs / Physical Exam
Vital Signs
Vital Signs
Temp Pulse Resp BP Pulse Ox
98.3 F 75 19 101/47 95
11/22/24 12:08 11/22/24 07:47 11/22/24 07:47 11/22/24 07:47 11/22/24 07:47
Physical Exam
Constitutional: No Acute Distress, Comfortable, Chronically Ill and Non-toxic
Eyes: Sclera Anicteric
Cardiovascular: Regular Rate, S1/S2 and S3/S4
Pulmonary: Clear, Symmetric and Non Labored
Gastrointestinal: Soft, Distended and Normal Bowel Sounds
Skin: Warm and Dry; Negative Rash or Jaundice
Neurological: Awake and Alert
Psychological: Calm
Objective Data
Lab Data
Lab Results
11/21/24 05:24
11/21/24 05:24
PT 19.8 Sec (11.4-14.6) H 11/21/24 05:23
INR 1.66 11/21/24 05:23
Estimated Creat Clear 114 ml/min 11/21/24 05:24
Total Bilirubin 5.4 mg/dl (0.2-1.3) H 11/21/24 05:24
AST 57 U/L (17-59) 11/21/24 05:24
ALT 18 U/L (0-50) 11/21/24 05:24
Alkaline Phosphatase 83 U/L (38-126) 11/21/24 05:24
Most recent labs reviewed.
Micro Results:
11/21/24 09:37 Body Fluid Culture - Preliminary
Peritoneal Fluid No Growth After 18-24 Hours
Gram Stain - Preliminary
11/19/24 08:31 Body Fluid Culture - Final
Peritoneal Fluid No Growth After 72 Hours
Gram Stain - Final
11/15/24 21:17 Blood Culture - Final
Blood/Venous No Growth - Final Report
11/15/24 21:17 Blood Culture - Final
Blood/Venous Escherichia coli - ESBL
Gram Stain - Final
11/15/24 17:36 Body Fluid Culture - Final
Peritoneal Fluid Escherichia coli - ESBL
Gram Stain - Final
Ascites fluid
Laboratory Tests
11/15/24 11/19/24 11/21/24
17:36 08:31
Fluid WBC 6420 73100 1493
Fluid Mononuclear Cell 10.7 12.8 32.3
Fl Polymorphonucl Cell 89.3 87.2 67.7
Fluid Glucose 86
Blood Culture Final 11/18/24-957
1. Escherichia coli - ESBL
M.I.C. RX
--------- ---
Amoxicillin/Potas. Clavulanate <=8/4 S
Ampicillin >16 R
Ampicillin/Sulbactam <=4/2 S
Aztreonam 16 R
Cefazolin >16 R
Cefepime 8 SDD
Ceftazidime R
Ceftriaxone >2 R
Ertapenem <=0.5 S
Ciprofloxacin >2 R
Gentamicin <=2 S
Meropenem <=1 S
Piperacillin/Tazobactam <=8 S
Tetracycline 8 I
Tobramycin <=2 S
Trimethoprim/Sulfamethoxazole >2/38 R
Imaging:
11/15/2024 CT abdomen/pelvis with IV contrast: Cirrhosis with extensive ascites, splenomegaly and perisplenic varices. Right inguinal hernia noted. Stable 9 mm calculus at the right ureteropelvic junction without associated hydronephrosis. Please
see full dictation for additional detail.
.

Total time spent today was 50 minutes, which includes preparation for the visit, gathering pertinent data, patient interview and examination, reviewing pertinent studies including laboratory evaluations, microbiology, radiology, hospital records,
specialist consultation, along with counseling and coordination of care.
Care Review
Plan reviewed with: Physician (Hospitalist)
--- NOTE | 2024-11-22 13:33 | CM ---
Addendum entered by Kelsie Shen 11/22/24 15:33:
spoke with hospitalist - tentative d/c tomorrow.
CM to Follow up with [facility] regarding IV med
Original Note:
Received script from Dr. Muse
Ertapenam 1 gm IV Q24H end date 12/06/24
Patient will have midline insertion
Faxed script to [facility] [phone]- Left message [phone] with Natalie from [facility]
Current with [facility]
PLAN: Discharge when stable, home, IV antibotics & [facility]
[2024-11-22 15:14] VITALS: BP 107/55
[2024-11-22] MEDS: DILAUDID 0.5 MG IV (15:39)
--- NOTE | 2024-11-22 16:30 | W.PN.HOSP.TC ---
Today's Communication/Plan
-
Plan is for outpatient IV antibiotic infusion.
Midline placement today.
Discharge planning
Assessment / Plan
Assessment / Plan
Impression:
Sepsis secondary to SBP.
E. coli/ESBL bacteremia.
Recurrent SBP. Paracentesis every Tuesday
Decompensated cirrhosis.
Gastrointestinal hemorrhage from portal gastropathy.
Acute blood loss anemia.
TYSON.
Hepatitis C status post treatment with Epclusa
Plan:
Sepsis secondary to recurrent SBP and E. coli/ESBL bacteremia.
This post diagnostic paracentesis 11/15 with fluid findings consistent with SBP
Recent episode of SBP completed course of IV antibiotics and transition to doxycycline for suppression.
CT scan of abdomen and pelvis on 09/20 with no new abnormalities explaining recurrent SBP.
Repeat paracentesis 11/19 with WBC 12 830 87% PMN
Repeat paracentesis 11/21 3800 mL removed with trending down WBC at 1493
Continue meropenem.
Decompensated alcoholic cirrhosis.
MELD 3.0 @21
Monitor for hepatic encephalopathy.
Continue lactulose and rifaximin
Presentation with melena.
Upper gastrointestinal hemorrhage.
Acute blood loss anemia with hemoglobin of 6.1
EGD 11/16 with varices and bleeding portal gastropathy treated
Off IV octreotide
Continue PPI.
Transfuse to keep hemoglobin above 8.
Received course of IV albumin
Adynamic ileus.
Minimize narcotics.
Full liquid diet
TYSON baseline creatinine 1.0�1.7. Improved
Suspect renal in the settings of acute blood loss anemia. Urine sodium less than 5 confirming
Transfuse.
Albumin.
Hold diuretics including Lasix and spironolactone.
Urine sodium level pending
Acute urinary retention.
Stevens catheter placed on 11/16
Chronic pancytopenia secondary to cirrhosis.
Follow CBC
Hepatitis C status posttreatment with Epclusa.
Chronic pain
Essential hypertension.
Anxiety
History of skin cancer status post Mohs surgery
Tobacco use disorder
Anticipated Discharge: Within 24 hours
Subjective/Interval History
-
Date of Service: November 22, 2024
Objective Data
-
Vital Signs:
Vital Signs
Temp Pulse Resp BP Pulse Ox
98.1 F 76 17 107/55 98
11/22/24 15:14 11/22/24 15:14 11/22/24 15:14 11/22/24 15:14 11/22/24 15:14
I&O
11/21/24 11/22/24 11/23/24
06:59 06:59 06:59
Intake Total 1200 / 1200 480 / 480
Balance 1200 / 1200 480 / 480
Physical Exam
-
General: Well Developed and No Apparent Distress
HEENT: Normocephalic, Atraumatic and Moist Mucous Membranes
Respiratory: Clear to Auscultation
Cardiac: Regular Rhythm and S1/S2; Negative Murmur, Rub or Gallop
GI: Soft, Normal Bowel Sounds, Tender and Distended; Negative Organomegaly
Rectal: Deferred by Provider
Musculoskeletal: No Clubbing, No Cyanosis and No Edema
Skin: Negative Rash
Neuro: Awake, Alert, Oriented, AO x 3 and Nonfocal/Grossly Intact
[2024-11-22] MEDS: PREPARATION H OINTMENT RECTAL (19:52)
[2024-11-22] MEDS: DUPHALAC/CHRONULAC PO (19:52)
[2024-11-22] MEDS: INVANZ 60 MG IV (21:01)
[2024-11-22 23:17] VITALS: BP 110/61
[2024-11-23 07:25] VITALS: BP 104/56
[2024-11-23] MEDS: SPIRIVA RESPIMAT 2.5 MCG INH (07:44)
[2024-11-23] MEDS: SYMBICORT 160/4.5 MCG INHALER INH (07:44)
[2024-11-23] MEDS: VITAMIN B1 100 MG PO (08:33)
[2024-11-23] MEDS: MAGNESIUM OXIDE 500 MG PO (08:33)
[2024-11-23] MEDS: DUPHALAC/CHRONULAC 20 GRAMS PO (08:33)
[2024-11-23] MEDS: ZINC 50 MG PO (08:33)
[2024-11-23] MEDS: XIFAXAN 550 MG PO (08:33)
[2024-11-23] MEDS: MYLICON 80 MG PO (08:33)
[2024-11-23] MEDS: FOLVITE 1 MG PO (08:33)
[2024-11-23] MEDS: NSS (PRESERVATIVE FREE) 10 ML IV (08:33)
[2024-11-23] MEDS: DESENEX/MITRAZOL/ZEASORB 1 APPLIC TOPICAL (08:34)
[2024-11-23] MEDS: PROTONIX IV 40 MG IV (08:34)
[2024-11-23] MEDS: PREPARATION H OINTMENT 1 APPLIC RECTAL (08:34)
[2024-11-23] MEDS: ULTRAM 50 MG PO (08:39)
--- NOTE | 2024-11-23 09:30 | CM ---
Addendum entered by Kirti Haile 11/23/24 12:48:
TC from Natalie [facility] requesting mot recent serum Cr and platelets.
faxed to [phone]
Addendum entered by Kirti Haile 11/23/24 12:31:
Per Natalie from [facility], they can deliver meds today in time for patient to give his PM dose.
Addendum entered by Kirti Haile 11/23/24 11:24:
Plan: home with [facility] and [facility] for home infusion.
[facility]

Original Note:
TC to [facility], spoke with Natalie and office.
Patient with $500 deductible, then covered 100%.
Per Natalie patient on multiple courses of IV anbx, should be able to deliver so patient can have PM dose at home.
Midline information faxed over to [phone].
Natalie will call this CM when al arranged.
Plan: tentative d/c home with IV anbx today.
--- NOTE | 2024-11-23 12:59 | W.DS.TRANS ---
DC Summary - [facility]
-
Discharge Instructions:
Discharge Diagnosis/Procedures Sepsis secondary to SBP.
E. coli/ESBL bacteremia.
Recurrent SBP. Paracentesis every Tuesday
Decompensated cirrhosis.
Gastrointestinal hemorrhage from portal
gastropathy.
Acute blood loss anemia.
TYSON.
Hepatitis C status post treatment with Epclusa
Diet 2 Gram Sodium
Instructions:
Stand-Alone Forms:
Changes to Home Medications: Yes
Discharge Medications:
DC Medications w/original date entered in [facility]
thiamine HCl (vitamin B1) 100 mg tablet 100 mg PO DAILY Supplement 03/13/24
budesonide 160 mcg-glycopyr 9 mcg-formot 4.8 mcg/actuation HFA inhaler (Breztri Aerosphere) 2 inh inhalation R BID Lung/Breathing Issues 04/11/24
magnesium oxide 400 mg PO BID Supplement 06/28/24
rifaximin 550 mg tablet (Xifaxan) 550 mg PO BID hepatic encephalopathy 06/28/24
lactulose 20 gram/30 mL oral solution 20 g (30 mL) PO TID Liver issues #2,880 mL 07/01/24
pantoprazole 40 mg tablet,delayed release (Protonix) 40 mg PO BID Gastrointestinal Issue 08/02/24
lidocaine 4 % topical patch 1 patch topical DAILYPRN PRN right knee and right shoulder 09/08/24
miconazole nitrate 2 % topical powder (Miconazorb AF) 1 applic topical BID groin/scrotum 09/08/24
ondansetron HCl 4 mg tablet 4 mg PO DAILYPRN PRN nasuea 09/08/24
phenylephrine 0.25 %-mineral oil 14 %-petrolatm 74.9 % rectal ointment (Hemorrhoidal(phenyleph-min oil-petrolat)) 1 applic [place] BID hemorrhoids 09/26/24
tramadol 50 mg tablet 50 mg PO BIDPRN PRN moderate-severe pain 09/26/24
furosemide 20 mg tablet 20 mg PO DAILY Fluid retention/Swelling 10/06/24
folic acid 1 mg tablet 1 mg PO DAILY #30 tabs 10/23/24
nicotine 7 mg/24 hr daily transdermal patch 7 mg transdermal DAILY #14 ea 10/23/24
spironolactone 25 mg tablet 12.5 mg (1/2 x 25 mg) PO DAILY #30 tabs 11/01/24
zinc sulfate 50 mg zinc (220 mg) tablet 50 mg PO DAILY 11/15/24
Ertapenem [Invanz] 1,000 mg 120 mls/hr IV Q24H 11/23/24
Home Medication Changes
IV antibiotics
Pending Results: No
[2024-11-23 14:08] VITALS: BP 113/56
== END 2024-11-23 14:39 | disposition home health service (06) | DRG 871 ==
LOC: 2 NORTH 22:03
PROVIDERS: Emergency Medicine; Nurse Practitioner; Nurse Practitioner Adult Health; Radiology Diagnostic Radiology; Radiology Vascular & Interventional Radiology; ADMITTING PHYSICIAN Hospitalist; ATTENDING PHYSICIAN Internal Medicine; CONSULT PHYSICIAN Internal Medicine; EMERGENCY PHYSICIAN Emergency Medicine; FAMILY PHYSICIAN Internal Medicine; OTHER PHYSICIAN Internal Medicine Infectious Disease
PROC: 30233N1 Transfusion of Nonautologous Red Blood Cells into Peripheral Vein, Percutaneous Approach (ICD-10-PCS; 2024-11-16)
PROC: 0W3P8ZZ Control Bleeding in Gastrointestinal Tract, Via Natural or Artificial Opening Endoscopic (ICD-10-PCS; 2024-11-16)
PROC: 0W9G3ZZ Drainage of Peritoneal Cavity, Percutaneous Approach (ICD-10-PCS; 2024-11-19)
DX: A41.51 Sepsis due to Escherichia coli [E. coli] (principal); K65.2 Spontaneous bacterial peritonitis; K76.6 Portal hypertension; N17.9 Acute kidney failure, unspecified; D62 Acute posthemorrhagic anemia; D61.818 Other pancytopenia; K56.0 Paralytic ileus; K70.31 Alcoholic cirrhosis of liver with ascites; D63.8 Anemia in other chronic diseases classified elsewhere; I10 Essential (primary) hypertension; K21.9 Gastro-esophageal reflux disease without esophagitis; J44.9 Chronic obstructive pulmonary disease, unspecified; F41.9 Anxiety disorder, unspecified; K31.89 Other diseases of stomach and duodenum; I86.4 Gastric varices; G89.29 Other chronic pain; F17.200 Nicotine dependence, unspecified, uncomplicated; Z86.73 Personal history of transient ischemic attack (TIA), and cerebral infarction without residual deficits; R33.8 Other retention of urine; Z85.828 Personal history of other malignant neoplasm of skin; Z86.19 Personal history of other infectious and parasitic diseases
CPT/HCPCS: 88305; 49083; 74018; 74176; 74177; 80048; 80053; 82042; 82150; 82248; 82945; 83615; 83690; 84157; 84300; 85025; 85027; 85610; 86850; 86900; 86901; 86920; 86922; 87015; 87040; 87070; 87077; 87149; 87186; 87205; 88112; 89051; 94640; 96361; 96374; 96375; 99285; J1335; P9016; P9047; Q9967

== ENCOUNTER → 2024-11-26 07:39 | Outpatient (REF) | payer BC, SELFPAY ==
[2024-11-26 08:15] VITALS: BP 131/68; BP_SYST 85
[2024-11-26 10:29] LABS: Body Fluid WBC 133 /CUMM
[2024-11-26 13:08] LABS: Body Fluid Second Tech CMB
== END ==
LOC: RADI 07:39
PROVIDERS: ATTENDING PHYSICIAN Nurse Practitioner Adult Health; FAMILY PHYSICIAN Internal Medicine
DX: R18.8 Other ascites (principal)
CPT/HCPCS: 49083; 87015; 87070; 87205; 89051

== ENCOUNTER → 2024-12-03 07:11 | Outpatient (REF) | payer BC, SELFPAY ==
[2024-12-03 07:48] VITALS: BP 134/74; BP_SYST 83
[2024-12-03 07:55] LABS: % Basophils 1.1 % (0-2); % Immature Granulocytes 0.4 % (0-0.5); % Lymphocytes 18.4 % (20.5-51.1); % Monocytes 6.3 % (1.7-9.3); % Neutrophils 70.8 % (42.2-75.2); Absolute Basophils 0.1 10^3/uL (0-0.2); Absolute Eosinophils 0.1 10^3/uL (0-0.7); Absolute Lymphocytes 0.9 10^3/uL (1.2-3.4); Absolute Monocytes 0.3 10^3/uL (0.1-0.6); Absolute Neutrophils 3.3 10^3/uL (1.4-6.5); Hematocrit 22.7 % (39.0-52.0); Hemoglobin 7.8 g/dL (13.0-18.0); Mean Corp Hgb Conc. 34.4 g/dL (33.0-37.0); Mean Corpuscular Hgb 32.2 pg (27.0-31.0); Mean Corpuscular Volume 93.8 fL (80.0-94.0); Mean Platelet Volume 9.8 fL (7.4-10.4); Nucleated Red Blood Cells % 0 % (-); Platelet Count 79 10^3/uL (130-400); Red Blood Cell Count 2.42 10^6/uL (4.70-6.10); Red Cell Dist. Width 17.6 % (11.5-14.5); White Blood Cell Count 4.6 10^3/uL (4.8-10.8)
[2024-12-03 08:37] LABS: Microalbumin, Random Urine 1.8 mg/dl (0.6-1.7); Microalbumin/creatinine Ratio 7.6 mg/g
[2024-12-03 08:42] VITALS: BP 123/58; BP_SYST 74
[2024-12-03 08:49] VITALS: BP 123/58
[2024-12-03 10:12] LABS: Body Fluid Mononuclear 97.1 %; Body Fluid Polymorphonuclear 2.9 %; Body Fluid WBC 68 /CUMM
[2024-12-03 10:27] LABS: Body Fluid Second Tech EM
== END ==
LOC: RADI 07:11
PROVIDERS: ATTENDING PHYSICIAN Nurse Practitioner Adult Health; REFERRING PHYSICIAN Internal Medicine
DX: R18.8 Other ascites (principal)
CPT/HCPCS: 49083; 36415; 82043; 82570; 85025; 87015; 87070; 87205; 89051

== ENCOUNTER 2024-12-03 08:57 | Outpatient (RCR) | payer BC, SELFPAY ==
[2024-11-12] VITALS (7 sets, daily range): BP systolic 113–125; BP diastolic 54–61
[2024-11-12] MEDS: FLEXBUMIN 100 IV (09:17)
[2024-11-12] MEDS: FLEXBUMIN 50 IV (11:04)
[2024-11-12 11:27] LABS: % Basophils 0.4 % (0-2); % Eosinophils 3.6 % (0-6); % Immature Granulocytes 0.4 % (0-0.5); % Lymphocytes 20.1 % (20.5-51.1); % Monocytes 8.6 % (1.7-9.3); % Neutrophils 66.9 % (42.2-75.2); Absolute Eosinophils 0.1 10^3/uL (0-0.7); Absolute Lymphocytes 0.6 10^3/uL (1.2-3.4); Absolute Monocytes 0.2 10^3/uL (0.1-0.6); Absolute Neutrophils 1.9 10^3/uL (1.4-6.5); Hematocrit 18.8 % (39.0-52.0); Mean Corpuscular Hgb 32.8 pg (27.0-31.0); Mean Corpuscular Volume 99.5 fL (80.0-94.0); Mean Platelet Volume 10.6 fL (7.4-10.4); Platelet Count 66 10^3/uL (130-400); Red Blood Cell Count 1.89 10^6/uL (4.70-6.10); Red Cell Dist. Width 15.7 % (11.5-14.5); White Blood Cell Count 2.8 10^3/uL (4.8-10.8)
[2024-11-12 11:29] LABS: Hemoglobin 6.2 g/dL (13.0-18.0)
--- NOTE | 2024-11-12 12:20 | PTCARENOTE ---
1030: Pt receiving albumin infusion, received orders for cbc from [employer] (per request). CBC drawn
1115: Pt's cbc results back and pt's hgb: 6.2. Pt offers no complaints, ambulating to and from bathroom, gait steady, no shortness of breath, states no bleeding from urine and only when wiping with bm's. States bm's are dark green due to iron, when
asked if noted more bleeding from bowels, pt stated 'no, I have hemorrhoids, and I use cream for that.' Denies blood in toilet as well.
1123: TT Mirella Morrison [employer] [facility] about above and orders to be faxed over for type and screen, blood transfusion (consent already obtained prior). Pt and daughter updated with plan of care and agree with above.
1227: Awaiting type and screen results. will continue to monitor.
[2024-11-26 09:27] VITALS: BP 116/54
[2024-11-26] MEDS: FLEXBUMIN 50 IV (09:27)
[2024-11-26] MEDS: FLEXBUMIN 100 IV (10:24)
[2024-11-26 10:26] VITALS: BP 118/51
[2024-11-26 12:03] VITALS: BP 114/50
[2024-11-26 12:36] LABS: INR 1.86; PT 21.6 Sec (11.4-14.6)
[2024-11-26 12:37] LABS: % Basophils 0.6 % (0-2); % Eosinophils 1.8 % (0-6); % Immature Granulocytes 0.3 % (0-0.5); % Lymphocytes 14.9 % (20.5-51.1); % Monocytes 8.2 % (1.7-9.3); % Neutrophils 74.2 % (42.2-75.2); Absolute Eosinophils 0.1 10^3/uL (0-0.7); Absolute Lymphocytes 0.5 10^3/uL (1.2-3.4); Absolute Monocytes 0.3 10^3/uL (0.1-0.6); Absolute Neutrophils 2.4 10^3/uL (1.4-6.5); Hematocrit 21.6 % (39.0-52.0); Hemoglobin 7.2 g/dL (13.0-18.0); Mean Corp Hgb Conc. 33.3 g/dL (33.0-37.0); Mean Corpuscular Hgb 31.6 pg (27.0-31.0); Mean Corpuscular Volume 94.7 fL (80.0-94.0); Mean Platelet Volume 9.7 fL (7.4-10.4); Platelet Count 78 10^3/uL (130-400); Red Blood Cell Count 2.28 10^6/uL (4.70-6.10); Red Cell Dist. Width 17.4 % (11.5-14.5); White Blood Cell Count 3.3 10^3/uL (4.8-10.8)
[2024-11-26 12:43] LABS: ALT (SGPT) 21 U/L (0-50); AST (SGOT) 51 U/L (17-59); Alkaline Phosphatase 148 U/L (38-126); Blood Urea Nitrogen 10 mg/dl (9-20); Calcium 7.6 mg/dl (8.4-10.2); Carbon Dioxide 23 mmol/L (22-30); Chloride 106 mmol/L (98-107); Glucose 155 mg/dl (70-99); Potassium 3.1 mmol/L (3.5-5.1); Sodium 138 mmol/L (135-145); Total Bilirubin 3.5 mg/dl (0.2-1.3); Total Protein 4.9 g/dl (6.3-8.2); eGFR > 60.00
[2024-12-03 09:10] VITALS: BP 119/52
[2024-12-03] MEDS: FLEXBUMIN 50 IV (09:10)
[2024-12-03] MEDS: FLEXBUMIN 100 IV (10:02)
[2024-12-03 10:04] VITALS: BP 114/54
[2024-12-03 11:42] VITALS: BP 116/54
== END 2024-12-05 12:16 | disposition home or self-care (01) ==
LOC: OID 08:57
PROVIDERS: Internal Medicine Transplant Hepatology; ATTENDING PHYSICIAN Nurse Practitioner Adult Health; FAMILY PHYSICIAN Internal Medicine
DX: K70.31 Alcoholic cirrhosis of liver with ascites (principal); B18.2 Chronic viral hepatitis C; D64.9 Anemia, unspecified; D69.6 Thrombocytopenia, unspecified
CPT/HCPCS: 36415; 36430; 49083; 80053; 82043; 82570; 85025; 85610; 86850; 86900; 86901; 86920; 86922; 87015; 87070; 87205; 89051; 96365; 96366; P9016; P9047

== ENCOUNTER → 2024-12-10 07:32 | Outpatient (REF) | payer BC, SELFPAY ==
[2024-12-10 09:05] VITALS: BP 109/62
[2024-12-10 11:38] LABS: Body Fluid WBC 48 /CUMM
[2024-12-10 12:13] LABS: Body Fluid Second Tech AMA
== END ==
LOC: RADI 07:32
PROVIDERS: ATTENDING PHYSICIAN Nurse Practitioner Adult Health; FAMILY PHYSICIAN Internal Medicine
DX: R18.8 Other ascites (principal)
CPT/HCPCS: 49083; 87015; 87070; 87205; 89051; 96365; 96366; P9047

== ENCOUNTER 2024-12-14 10:37 | Inpatient (IN) | payer BC, SELFPAY ==
[2024-12-14] VITALS (20 sets, daily range): BP systolic 85–138; BP diastolic 44–69; BMI 25.0; BMI 23.4
[2024-12-14] MEDS: DILAUDID 1 MG IV ×2 (06:37→07:42)
[2024-12-14] MEDS: ZOFRAN 4 MG IV (06:38)
[2024-12-14 06:47] LABS: % Basophils 0.2 % (0-2); % Immature Granulocytes 0.4 % (0-0.5); % Lymphocytes 4.1 % (20.5-51.1); % Monocytes 2.3 % (1.7-9.3); Absolute Immature Granulocytes 0.1 10^3/uL (0-0.05); Absolute Lymphocytes 0.5 10^3/uL (1.2-3.4); Absolute Monocytes 0.3 10^3/uL (0.1-0.6); Absolute Neutrophils 10.8 10^3/uL (1.4-6.5); Hematocrit 22.4 % (39.0-52.0); Hemoglobin 7.6 g/dL (13.0-18.0); Mean Corp Hgb Conc. 33.9 g/dL (33.0-37.0); Mean Corpuscular Hgb 33.9 pg (27.0-31.0); Mean Platelet Volume 10.8 fL (7.4-10.4); Nucleated Red Blood Cells % 0 % (-); Platelet Count 104 10^3/uL (130-400); Red Blood Cell Count 2.24 10^6/uL (4.70-6.10); Red Cell Dist. Width 20.9 % (11.5-14.5); White Blood Cell Count 11.6 10^3/uL (4.8-10.8)
[2024-12-14 06:52] LABS: INR 1.49; PT 18.6 Sec (11.4-14.6)
[2024-12-14 07:00] LABS: AST (SGOT) 48 U/L (17-59); Albumin 2.9 g/dl (3.5-5.0); Alkaline Phosphatase 130 U/L (38-126); Blood Urea Nitrogen 34 mg/dl (9-20); Calcium 8.1 mg/dl (8.4-10.2); Carbon Dioxide 18 mmol/L (22-30); Chloride 102 mmol/L (98-107); Estimated Creatinine Clearance 50 ml/min; Glucose 114 mg/dl (70-99); Potassium 4.1 mmol/L (3.5-5.1); Sodium 134 mmol/L (135-145); eGFR 48.72
[2024-12-14 07:06] LABS: ALT (SGPT) 30 U/L (0-50)
[2024-12-14] MEDS: NSS 500 IV (07:53)
--- NOTE | 2024-12-14 08:18 | ED.GENMED ---
History of Present Illness
General
Chief Complaint: Abdominal Pain
Time Seen by Provider: 12/14/24 06:04
Past History
Past History
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 GI bleed, portal gastropathy, hemorrhoids, umbilical hernia, CVA)
ED Past Surgical History: Other
Social History
Tobacco: Smoker
Alcohol: Former
Drug: None
Personal:
Living: with family
Employment: Employed
Family History
Family History: Diabetes and Other
Sepsis
Sepsis Screen
Sepsis Screen: Possible Sepsis
Date: 12/14/24
Time: 08:18
Course
Orders/Labs/Results
Orders:
Orders
12/14/24 06:25
Complete Blood Count/With Diff Urgent
Comprehensive Metabolic Panel Urgent
Lactic Acid Q4H
Comment: CANCEL 2nd LACTIC ACID IF 1st LACTIC ACID IS LESS THAN 2
Prothrombin Time Urgent
Blood Culture Q30M
LOVE Source: Blood/Venous
Specimen Description:
Blood Culture Q30M
LOVE Source: Blood/Venous
Specimen Description:
12/14/24 06:27
HYDROmorphone [Dilaudid] 1 mg IV NOW STA
Ondansetron Injectable [Zofran] 4 mg IV NOW STA
12/14/24 07:06
0.9% Sodium Chloride 500 ml [Nss] 500 ml IV BOLUS
12/14/24 07:40
HYDROmorphone [Dilaudid] 1 mg .ROUTE .ST-MED ONE
12/14/24 07:42
HYDROmorphone [Dilaudid] 1 mg IV NOW STA
12/14/24 07:57
Body Fluid Cell Count Urgent
What is the Body Fluid: peritoneal fluid
Date Specimen was Collected: 12/14/24
Time Specimen was Collected: 07:56
Fluid Culture with Gram Stain Urgent
LOVE Source: Peritoneal Fluid
Specimen Description:
Date Specimen was Collected: 12/14/24
Time Specimen was Collected: 07:56
12/14/24 10:15
Lactic Acid Q4H
Comment: CANCEL 2nd LACTIC ACID IF 1st LACTIC ACID IS LESS THAN 2
Abnormal Lab Results
12/14/24
06:25
WBC 11.6 H 10^3/uL
(4.8-10.8)
RBC 2.24 L 10^6/uL
(4.70-6.10)
Hgb 7.6 L g/dL
(13.0-18.0)
Hct 22.4 L %
(39.0-52.0)
MCV 100.0 H fL
(80.0-94.0)
MCH 33.9 H pg
(27.0-31.0)
RDW 20.9 H %
(11.5-14.5)
Plt Count 104 L 10^3/uL
(130-400)
MPV 10.8 H fL
(7.4-10.4)
Abs Immat Gran (auto) 0.1 H 10^3/uL
(0-0.05)
Absolute Neuts (auto) 10.8 H 10^3/uL
(1.4-6.5)
Absolute Lymphs (auto) 0.5 L 10^3/uL
(1.2-3.4)
Neutrophils % 93.0 H %
(42.2-75.2)
Lymphocytes % 4.1 L %
(20.5-51.1)
PT 18.6 H Sec
(11.4-14.6)
Sodium 134 L mmol/L
(135-145)
Carbon Dioxide 18 L mmol/L
(22-30)
BUN 34 H mg/dl
(9-20)
Creatinine 1.6 H mg/dL
(0.7-1.3)
Glucose 114 H mg/dl
(70-99)
Lactic Acid 6.0 H* mmol/L
(0.7-2.0)
Calcium 8.1 L mg/dl
(8.4-10.2)
Total Bilirubin 5.0 H mg/dl
(0.2-1.3)
Alkaline Phosphatase 130 H U/L
(38-126)
Total Protein 5.0 L g/dl
(6.3-8.2)
Albumin 2.9 L g/dl
(3.5-5.0)
12/14/24 06:25
12/14/24 06:25
Vital Signs
Initial and Last Documented VS:
Initial Vital Signs
Temp Pulse Resp BP Pulse Ox
99.1 F 122 24 127/64 96
12/14/24 04:50 12/14/24 04:50 12/14/24 04:50 12/14/24 04:50 12/14/24 04:50
Last Documented Vital Signs
Temp Pulse Resp BP Pulse Ox
100.7 F H 119 17 122/65 93
12/14/24 04:58 12/14/24 08:00 12/14/24 08:00 12/14/24 08:00 12/14/24 08:00
ED Attending Note
-
Portions of this chart may have been created with voice recognition software.� Occasional wrong word or��sound alike� substitutions may have occurred due to the inherent limitations of voice recognition software.
Discharge Plan
Departure
Prescriptions:
No Action
thiamine HCl (vitamin B1) 100 mg tablet
100 mg PO DAILY
Breztri Aerosphere 160-9-4.8 mcg/actuation Hfa Aerosol Inhaler
2 inh INHALATION R BID
Xifaxan 550 mg Tablet
550 mg PO BID
magnesium oxide 400 mg magnesium Tablet
400 mg PO BID
lactulose 20 gram/30 mL Solution
20 g PO TID Qty: 2880 0RF
pantoprazole [Protonix] 40 mg tablet,delayed release (DR/EC)
40 mg PO BID
ondansetron HCl 4 mg Tablet
4 mg PO DAILYPRN PRN (Reason: nasuea)
lidocaine 4 % adhesive patch,medicated
1 patch topical DAILYPRN PRN (Reason: right knee and right shoulder)
miconazole nitrate [Miconazorb AF] 2 % powder
1 applic topical BID
tramadol 50 mg tablet
50 mg PO BIDPRN PRN (Reason: moderate-severe pain)
Hemorrhoidal(PE-min oil-darling) 0.25-14-74.9 % ointment
1 applic [place] BID
furosemide 20 mg tablet
20 mg PO DAILY
folic acid 1 mg Tablet
1 mg PO DAILY Qty: 30 0RF
nicotine 7 mg/24 hr Patch 24 Hour
7 mg transdermal DAILY Qty: 14 0RF
spironolactone 25 mg Tablet
12.5 mg PO DAILY Qty: 30 0RF
zinc sulfate 50 mg zinc (220 mg) Tablet
50 mg PO DAILY
Referrals:
UNKNOWN - PT DOES,NOT KNOW [Family Provider] -
Interventions
Interventions:
*Risk Screen - Suicide Last Done: 12/14/24 04:50
*General Assessment Last Done: 12/14/24 05:13
*Neglect/Abuse Screening Last Done: 12/14/24 05:13
ED- Fall Risk Assessment Last Done: 12/14/24 05:13
*ED COVID-19 Vaccine History Last Done: 12/14/24 05:13
UU-Lfpmhd-Limccfggmy Assessment Last Done: 12/14/24 05:13
Discharge Date and Time
Print Language: GUATEMALAN
[2024-12-14 08:26] LABS: Body Fluid Mononuclear 11.9 %; Body Fluid Polymorphonuclear 88.1 %; Body Fluid WBC 10000 /CUMM
[2024-12-14 08:27] LABS: Body Fluid Second Tech ASW
--- NOTE | 2024-12-14 08:52 | ED.GENMED ---
History of Present Illness
General
Chief Complaint: Abdominal Pain
Source: patient and family
Time Seen by Provider: 12/14/24 06:04
History of Present Illness
History of Present Illness:
59-year-old male presents with abdominal pain. Patient does have a paracentesis on Tuesday. The patient has a history of end-stage liver disease. He also has a history of SBP. Patient report severe abdominal pain. No vomiting. Had a low-grade
temp at home. Family states that he has had similar events in the past
Past History
Past History
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 GI bleed, portal gastropathy, hemorrhoids, umbilical hernia, CVA, SBP, E. coli bacteremia, ESBL)
ED Past Surgical History: Other
Social History
Tobacco: Smoker
Alcohol: Former
Drug: None
Personal:
Living: with family
Employment: Employed
Family History
Family History: Diabetes and Other
Phy Exam
Physical Exam
Physical Exam:
CONSTITUTIONAL Patient alert and oriented to person, place and time. Well-appearing. Vital signs reviewed.
HEAD atraumatic, normocephalic.
EYES eyelids normal to inspection, Extraocular muscles intact, Conjunctiva normal, Sclera normal.
NECK normal range of motion, Trachea midline, no jugular venous distention.
RESPIRATORY CHEST No respiratory distress noted, Chest expansion equal
ABDOMEN diffuse tenderness noted. Ascites noted. Large umbilical hernia noted
BACK normal inspection, no obvious deformities
UPPER EXTREMITY range of motion normal, Motor strength normal, no cyanosis, no edema.
LOWER EXTREMITY range of motion normal, Motor strength normal
NEURO Speech normal, No focal motor deficits, [place] coma scale 15, Memory normal, Cranial Nerves intact to screening exam.
Sepsis
Sepsis Screening
Sepsis Assessment: Severe Sepsis
Sepsis Screening: Lactate >2mmol/L
Sepsis Screen
Sepsis Screen: Severe Sepsis
Date: 12/14/24
Time: 13:02
Course
Orders/Labs/Results
Orders:
Orders
12/14/24 06:25
Complete Blood Count/With Diff Urgent
Comprehensive Metabolic Panel Urgent
Lactic Acid Q4H
Comment: CANCEL 2nd LACTIC ACID IF 1st LACTIC ACID IS LESS THAN 2
Prothrombin Time Urgent
Blood Culture Q30M
LOVE Source: Blood/Venous
Specimen Description:
Blood Culture Q30M
LOVE Source: Blood/Venous
Specimen Description:
12/14/24 06:27
HYDROmorphone [Dilaudid] 1 mg IV NOW STA
Ondansetron Injectable [Zofran] 4 mg IV NOW STA
12/14/24 07:06
0.9% Sodium Chloride 500 ml [Nss] 500 ml IV BOLUS
12/14/24 07:40
HYDROmorphone [Dilaudid] 1 mg .ROUTE .STK-MED ONE
12/14/24 07:42
HYDROmorphone [Dilaudid] 1 mg IV NOW STA
12/14/24 07:57
Body Fluid Cell Count Urgent
What is the Body Fluid: peritoneal fluid
Date Specimen was Collected: 12/14/24
Time Specimen was Collected: 07:56
Fluid Culture with Gram Stain Urgent
LOVE Source: Peritoneal Fluid
Specimen Description:
Date Specimen was Collected: 12/14/24
Time Specimen was Collected: 07:56
12/14/24 08:52
Piperacillin/Tazo 3.375 Gram [Zosyn] 3.375 gram in 50 ml IV NOW
12/14/24 10:12
Lactic Acid Q4H
Comment: CANCEL 2nd LACTIC ACID IF 1st LACTIC ACID IS LESS THAN 2
12/14/24 10:17
Admit/Transfer Patient As Directed
Co-Sign Provider:
Level of Care: Inpatient admission
Assign to:: Telemetry
Physician / Group: Michael
Diagnosis: Sepsis, SBP
Reason for Telemetry: Arrhythmia
Date to Stop Telemetry: 12/17/24
Time to Stop Telemetry: 11:00
Reason for Hospitalization: IV antibiotics, GI consult, ID consult
Expected length of stay greater than two midnights?: Yes
ELOS- Estimated Length of Stay in days: 4
I certify the patient meets the requirements for IP care: Yes
PRN Pain Medication Management As Directed
May give lesser potent ordered pain med per pt: Yes
preference::
Protocol:: Medication orders for pain may be administered in a
manner that supports deferring to patient preference
when the pt is:
- Requesting an ordered lesser potent pain medication.
Least to most potent pain medications are defined
as: acetaminophen < NSAID < tramadol < opioids
(morphine, oxycodone, hydromorphone).
- Requesting a lesser dose of the same medication IF
ORDERED.
- Requesting a less intrusive route of administration
if both routes are prescribed by the provider (PO <
IV).
12/14/24 10:20
Code Status As Directed
Resuscitation Status: Full Code
12/14/24 10:29
Lactated Ringers [Lr] 500 ml IV BOLUS
12/14/24 10:36
Vital Signs- Treatment ONCE
Frequency: Once
12/17/24 11:00
DC Protocol for Telemetry ONCE
Abnormal Lab Results
12/14/24 12/14/24
06:25 10:12
WBC 11.6 H 10^3/uL
(4.8-10.8)
RBC 2.24 L 10^6/uL
(4.70-6.10)
Hgb 7.6 L g/dL
(13.0-18.0)
Hct 22.4 L %
(39.0-52.0)
MCV 100.0 H fL
(80.0-94.0)
MCH 33.9 H pg
(27.0-31.0)
RDW 20.9 H %
(11.5-14.5)
Plt Count 104 L 10^3/uL
(130-400)
MPV 10.8 H fL
(7.4-10.4)
Abs Immat Gran (auto) 0.1 H 10^3/uL
(0-0.05)
Absolute Neuts (auto) 10.8 H 10^3/uL
(1.4-6.5)
Absolute Lymphs (auto) 0.5 L 10^3/uL
(1.2-3.4)
Neutrophils % 93.0 H %
(42.2-75.2)
Lymphocytes % 4.1 L %
(20.5-51.1)
PT 18.6 H Sec
(11.4-14.6)
Sodium 134 L mmol/L
(135-145)
Carbon Dioxide 18 L mmol/L
(22-30)
BUN 34 H mg/dl
(9-20)
Creatinine 1.6 H mg/dL
(0.7-1.3)
Glucose 114 H mg/dl
(70-99)
Lactic Acid 6.0 H* mmol/L 5.5 H* mmol/L
(0.7-2.0) (0.7-2.0)
Calcium 8.1 L mg/dl
(8.4-10.2)
Total Bilirubin 5.0 H mg/dl
(0.2-1.3)
Alkaline Phosphatase 130 H U/L
(38-126)
Total Protein 5.0 L g/dl
(6.3-8.2)
Albumin 2.9 L g/dl
(3.5-5.0)
12/14/24 06:25
12/14/24 06:25
Vital Signs
Initial and Last Documented VS:
Initial Vital Signs
Temp Pulse Resp BP Pulse Ox
99.1 F 122 24 127/64 96
12/14/24 04:50 12/14/24 04:50 12/14/24 04:50 12/14/24 04:50 12/14/24 04:50
Last Documented Vital Signs
Temp Pulse Resp BP Pulse Ox
100.7 F H 119 17 122/65 93
12/14/24 04:58 12/14/24 08:00 12/14/24 08:00 12/14/24 08:00 12/14/24 08:00
Procedures
Other
Indication for procedure:: SBP, ascites
Procedure completed by: Dr. Tolentino
Consent form signed: No
If no, reason: Emergency procedure
Additional Procedure:
Paracentesis performed using the paracentesis kit to the right lower abdomen. Tolerated the procedure well. Lidocaine 1% without epinephrine was used for local anesthesia. Procedure was performed in full sterile conditions with the assistance of
resident physician Dr. Vasquez. 4L pulled off. yellow/cloudy/blood tinged fluid
MDM/Problems Addressed
MDM/Problems Addressed:
Spontaneous bacterial peritonitis, end-stage liver disease, ascites, lactic acidosis, sepsis
*Pulse Oximetry
Patient hypoxic: no
*Critical Care Note
Total Time (30-74mins, 75-104mins- exclusive of procedures): 35 minutes
Data Reviewed
Review of Other/Old Records Reveals: Labs (Prior blood cultures and fluid cultures reviewed from November 2024 consider) and Discharge Summary (Discharge summary from November 2024 reviewed)
Source: patient and family
Further Testing Considered But Not Given:
Consider CT of the abdomen. However, patient is had SBP in the past. Had CT of the abdomen in November. I do suspect SBP.
Patient Management
Discussion with other providers: Hospitalist and [employer] Apprentice (Case discussed with gastroenterology)
Escalation/DeEscalation of care consider admission/obs:
Case discussed with hospitalist. Agrees with hold off on CT for now. IV antibiotics given. Admit. Hold off on aggressive sepsis fluid management because of his history of liver disease. Concerned he will third space it. Blood pressure has
remained stable.
ED Attending Note
-
Portions of this chart may have been created with voice recognition software.� Occasional wrong word or��sound alike� substitutions may have occurred due to the inherent limitations of voice recognition software.
Discharge Plan
Departure
Patient Disposition: Admit
Date of Disposition: 12/14/24
Time of Disposition: 08:52
Admit to: Med/Surg
Presentation/result/management discussed w/ accepting MD/DO: Hospitalist
Discharge Problem:
Spontaneous bacterial peritonitis, Sepsis
Interventions
Interventions:
*Risk Screen - Suicide Last Done: 12/14/24 04:50
*General Assessment Last Done: 12/14/24 05:13
*Neglect/Abuse Screening Last Done: 12/14/24 05:13
ED- Fall Risk Assessment Last Done: 12/14/24 05:13
*ED COVID-19 Vaccine History Last Done: 12/14/24 05:13
LG-Aawkgt-Hngicctxli Assessment Last Done: 12/14/24 05:13
[2024-12-14] MEDS: ZOSYN 50 IV (09:08)
--- NOTE | 2024-12-14 10:24 | HPS.HSE ---
Family Physician
-
Family Physician: NOT KNOW UNKNOWN - PT DOES
Chief Complaint
-
Fever, abdominal pain
History of Present Illness
59-year-old male with end-stage liver disease and recurrent SBP, started developing recurrence of abdominal pain and fever yesterday prompting his admission to the hospital today.
Has had numerous episodes of spontaneous bacterial peritonitis.
Hospitalized in November and discharged November 23 with a diagnosis of sepsis due to SBP and bacteremia. Discharged home on IV or ertapenem until December 06. At that time no good oral options were available and there was mention of hospice
appropriateness for this patient.
Medical History
Past Medical History
Past Medical History: Reports Other
Additional Past Medical History:
End-stage liver disease
Alcoholic cirrhosis
Chronic anemia
Pancytopenia
HCV
GI bleed
Essential hypertension
COPD
History of stroke
Gastric varices
Portal hypertensive gastropathy
Past Surgical History: Reports None
Social History
Tobacco: Former Smoker
Alcohol: Former
Drug: None
Personal:
Living: With Family
Family History
Family History: Not pertinent
Allergies / Home Medications
Allergies reflects when Allergies were last updated in [facility].
Home Medications with original date entered in [facility]
Allergy/Medication List:
Allergies
Allergy/AdvReac Type Severity Reaction Status Date / Time
doxycycline Allergy Unknown Verified 12/14/24 04:57
Home Medications
thiamine HCl (vitamin B1) 100 mg tablet 100 mg PO DAILY Supplement 03/13/24
budesonide 160 mcg-glycopyr 9 mcg-formot 4.8 mcg/actuation HFA inhaler (Breztri Aerosphere) 2 inh inhalation R BID Lung/Breathing Issues 04/11/24
magnesium oxide 400 mg PO BID Supplement 06/28/24
rifaximin 550 mg tablet (Xifaxan) 550 mg PO BID hepatic encephalopathy 06/28/24
pantoprazole 40 mg tablet,delayed release (Protonix) 40 mg PO BID Gastrointestinal Issue 08/02/24
lidocaine 4 % topical patch 1 patch topical DAILYPRN PRN right knee and right shoulder 09/08/24
miconazole nitrate 2 % topical powder (Miconazorb AF) 1 applic topical BID groin/scrotum 09/08/24
ondansetron HCl 4 mg tablet 4 mg PO DAILYPRN PRN nasuea 09/08/24
phenylephrine 0.25 %-mineral oil 14 %-petrolatm 74.9 % rectal ointment (Hemorrhoidal(phenyleph-min oil-petrolat)) 1 applic [place] BID hemorrhoids 09/26/24
tramadol 50 mg tablet 50 mg PO BIDPRN PRN moderate-severe pain 09/26/24
furosemide 20 mg tablet 20 mg PO DAILY Fluid retention/Swelling 10/06/24
folic acid 1 mg tablet 1 mg PO DAILY #30 tabs 10/23/24
nicotine 7 mg/24 hr daily transdermal patch 7 mg transdermal DAILY #14 ea 10/23/24
spironolactone 25 mg tablet 12.5 mg (1/2 x 25 mg) PO DAILY #30 tabs 11/01/24
zinc sulfate 50 mg zinc (220 mg) tablet 50 mg PO DAILY 11/15/24
lactulose 10 gram/15 mL oral solution 20 g PO TID 12/14/24
Review of Systems
-
History Source: Patient and Family
A 12 point ROS was completed and negative except as noted: Yes
Physical Exam
Vital Signs
Vital Signs
Temp Pulse Resp BP Pulse Ox
100.7 F H 119 17 122/65 93
12/14/24 04:58 12/14/24 08:00 12/14/24 08:00 12/14/24 08:00 12/14/24 08:00
Physical Exam
General: Well Developed, Well Nourished, No Apparent Distress and Comfortable
HEENT: NormoCephalic, Anicteric and Moist mucous membranes
Respiratory: Clear
Cardiac: S1/S2 and Regular Rhythm
GI: Soft, Tender, Distended and Other (Umbilical hernia reducible)
Genito-urinary: Deferred by me
Musculoskeletal: No Clubbing, No Cyanosis and No Edema
Skin: Warm and Dry
Neuro: Awake, Alert and Oriented
Hematologic/Lymphatic: No Lymphadenopathy
Psych: Calm
Laboratory Results
-
12/14/24 06:25
12/14/24 06:25
Laboratory Results
PT 18.6 Sec (11.4-14.6) H 12/14/24 06:25
INR 1.49 12/14/24 06:25
Lactic Acid 6.0 mmol/L (0.7-2.0) H* 12/14/24 06:25
Total Bilirubin 5.0 mg/dl (0.2-1.3) H 12/14/24 06:25
AST 48 U/L (17-59) 12/14/24 06:25
ALT 30 U/L (0-50) 12/14/24 06:25
Alkaline Phosphatase 130 U/L (38-126) H 12/14/24 06:25
Impression/Plan
-
Sepsis -likely due to recurrent SBP. Admit to IMU. Check cultures. Broad-spectrum antibiotics. Consult ID, GI service. Hemodynamically stable.
Recurrent SBP.
Lactic acidosis due to sepsis.
TYSON - due to sepsis. Hold diuretics. Daily labs. Given 500 cc of normal saline IV in the emergency room so far.
None anion gap metabolic acidosis noted. Use lactated Ringer's.
Hyponatremia
End-stage liver disease - due to alcoholic cirrhosis.
Pancytopenia -due to ESLD.
Essential hypertension
COPD without exacerbation
Gastric varices
Portal hypertensive gastropathy
Full code
Updated family at the bedside.
[2024-12-14 10:55] LABS: Lactic Acid 5.5 mmol/L (0.7-2.0)
--- NOTE | 2024-12-14 11:52 | CON.GI ---
Addendum entered and electronically signed by Maci Gaviria MD 12/14/24 15:24:
I saw and examined the patient.
The KEYPUNCHER or PA's note was reviewed and I agree with the note.
Comment:
Pt is a 59 y/o man with a hx of decompensated cirrhosis with ascites who came to the ER with abdominal pain and fevers and ascites and had a tap done. the tap shows SBP. The patient denies bleeding.
abd: ascites
impression
Decompensated cirrhosis
SBP
abd pain
plan:
antibiotics,
albumin as below
ID consult
follow cultures
hold diuretics
continue xifaxin and lactulose
follow creatinine
Addendum entered and electronically signed by MARCIA Cornejo 12/14/24 12:51:
Already ordered albumin for SBP ppx for day #1 (today) 1.5 g/kg and for 12/16/24 day#3 for 1 g/kg.
Addendum entered and electronically signed by MARCIA Cornejo 12/14/24 12:40:
Please note albumin for SBP is 1.5 g/kg on day 1 and 1.0 g/kg on day 3... Not mg/kg
Original Note:
Consultation
-
Date/Time Consultation Requested: 12/14/24 1100
Date/Time Consultation Performed: 12/14/24 1153
Requesting Provider: Dr. Rodriguez
Performing Provider: Dr. Gaviria/MARCIA Campo
Reason for Consultation: SBP
Medical History
Chief Complaint / HPI
Chief Complaint: abdominal pain
History of Present Illness:
59 y.o male well-known to GI group with past medical history significant for decompensated cirrhosis (HCV vs EtOH) with intractable ascites with weekly para, HE, GI bleeding by recurrent hospitalizations with HE secondary to acute on chronic GI
bleeding 2/2 PHG gastric varix, hx of prior post-polypectomy bleed, prior transfer to [place] for Ultrasound guided gastric artery coiling procedure (09/2024), chronic HCV (s/p treatment with Epclusa s/p SVR), CVA, HTN, COPD, and chronic
thrombocytopenia. Hx of recurrent SBP treated with ertapenem, ecoli ESBL blood/peritoneal fluid, intermediate to doxycycline and required IV ertapenem via midline as an outpatient until 12/06/24. He had a + tox screen for cocaine on admission in
October, patient denied use. Patient had repeat outpatient PETH testing that was negative. Melena with GI bleeding status post EGD on 11/16/2024 findings of oozing portal hypertensive gastropathy treated with APC, ileus and TYSON. He continues to
follow with Dr. Dan as an outpatient. The patient states he had his midline removed on Tuesday after completing treatment for ertapenem as an outpatient on 12/06/2024. He has weekly paracenteses and had a paracentesis on 12/10/2024 that was
negative for SBP. He states that yesterday he did not feel good. He started with fevers up to 101. He developed abdominal discomfort he did not have an appetite and did not want to eat or drink. And was brought to the emergency room for further
evaluation. He was found to have a temperature of 100.7, WBC 11.6, hemoglobin 7.6, hematocrit 22.4, platelet count of 104, PT 18.6, INR 1.49, sodium 134, potassium 4.1, chloride 102, CO2 18, BUN 34, creatinine 1.6, glucose 114, lactic acid 6 repeat
lactic acid 5.5, total bilirubin 5.0, AST 48, ALT 30, alk phos 130, total protein 5.0, albumin 2.9. Paracentesis was performed this morning. Report not available to to me yet, however ascites fluid WBC is 10,000, polys 88.1. Fluid cultures
pending. Blood cultures pending. Patient denies any nausea, vomiting, melena, hematochezia, dysphagia or odynophagia. He states he does not have an appetite. No bowel movement today. He states he only took 1 dose of lactulose yesterday.
Past Medical History
Past Medical History: Other ( )
Past Surgical History: Other (Mohs surgery)
Social History
Tobacco: Non-Smoker
Alcohol: Former (with recent PETH +)
Drug: Other (prior use in past )
Personal:
Living: With Family
Employment: Not Employed
Family History
Family History: Other (no family hx liver disease )
Allergies / Home Medications
Allergy/AdvReac Type Severity Reaction Status Date / Time
doxycycline Allergy Unknown Verified 12/14/24 04:57
�Medication �Instructions �Recorded
thiamine HCl (vitamin B1) 100 mg 100 mg PO DAILY Supplement 03/13/24
tablet
budesonide 160 mcg-glycopyr 9 2 inh inhalation R BID 04/11/24
mcg-formot 4.8 mcg/actuation HFA Lung/Breathing Issues
inhaler (Breztri Aerosphere)
magnesium oxide 400 mg PO BID Supplement 06/28/24
rifaximin 550 mg tablet (Xifaxan) 550 mg PO BID hepatic 06/28/24
encephalopathy
pantoprazole 40 mg tablet,delayed 40 mg PO BID Gastrointestinal Issue 08/02/24
release (Protonix)
lidocaine 4 % topical patch 1 patch topical DAILYPRN PRN right 09/08/24
knee and right shoulder
miconazole nitrate 2 % topical 1 applic topical BID groin/scrotum 09/08/24
powder (Miconazorb AF)
ondansetron HCl 4 mg tablet 4 mg PO DAILYPRN PRN nasuea 09/08/24
phenylephrine 0.25 %-mineral oil 1 applic [place] BID hemorrhoids 09/26/24
14 %-petrolatm 74.9 % rectal
ointment
(Hemorrhoidal(phenyleph-min
oil-petrolat))
tramadol 50 mg tablet 50 mg PO BIDPRN PRN 09/26/24
moderate-severe pain
furosemide 20 mg tablet 20 mg PO DAILY Fluid 10/06/24
retention/Swelling
folic acid 1 mg tablet 1 mg PO DAILY #30 tabs 10/23/24
nicotine 7 mg/24 hr daily 7 mg transdermal DAILY #14 ea 10/23/24
transdermal patch
spironolactone 25 mg tablet 12.5 mg (1/2 x 25 mg) PO DAILY #30 11/01/24
tabs
zinc sulfate 50 mg zinc (220 mg) 50 mg PO DAILY 11/15/24
tablet
lactulose 10 gram/15 mL oral 20 g PO TID 12/14/24
solution
Review of Systems
-
All other systems: A 12 pt ROS was Negative except as stated above in HPI
Vital Signs
Temp Pulse Resp BP Pulse Ox
100.7 F H 119 17 122/65 93
12/14/24 04:58 12/14/24 08:00 12/14/24 08:00 12/14/24 08:00 12/14/24 08:00
Physical Exam
Exam
General: Other (Appears chronically ill)
HEENT: Anicteric
Respiratory: Clear (Anterior)
Cardiac: Regular Rhythm
GI: Soft, Non Distended, Normal Bowel Sounds and Tender
Musculoskeletal: No Edema
Skin: Warm and Dry
Neuro: AO x 3
Psych: Calm and Other (No asterixis)
Results
WBC 11.6 10^3/uL (4.8-10.8) H 12/14/24 06:25
Hgb 7.6 g/dL (13.0-18.0) L 12/14/24 06:25
Hct 22.4 % (39.0-52.0) L 12/14/24 06:25
MCV 100.0 fL (80.0-94.0) H 12/14/24 06:25
Plt Count 104 10^3/uL (130-400) L 12/14/24 06:25
Absolute Neuts (auto) 10.8 10^3/uL (1.4-6.5) H 12/14/24 06:25
PT 18.6 Sec (11.4-14.6) H 12/14/24 06:25
INR 1.49 12/14/24 06:25
Sodium 134 mmol/L (135-145) L 12/14/24 06:25
Potassium 4.1 mmol/L (3.5-5.1) 12/14/24 06:25
Chloride 102 mmol/L (98-107) 12/14/24 06:25
Carbon Dioxide 18 mmol/L (22-30) L 12/14/24 06:25
BUN 34 mg/dl (9-20) H 12/14/24 06:25
Creatinine 1.6 mg/dL (0.7-1.3) H 12/14/24 06:25
Calcium 8.1 mg/dl (8.4-10.2) L 12/14/24 06:25
Total Bilirubin 5.0 mg/dl (0.2-1.3) H 12/14/24 06:25
AST 48 U/L (17-59) 12/14/24 06:25
ALT 30 U/L (0-50) 12/14/24 06:25
Alkaline Phosphatase 130 U/L (38-126) H 12/14/24 06:25
Diagnostic Image Results:
None
11/16/2024 EGD ([facility]) - Bleb found in the esophagus.
- Gastric varices, without bleeding.
- Bleeding Portal hypertensive gastropathy. Treated
with a monopolar probe.
- No specimens collected.
09/2024 gastric art coiling procedure at [place] -- report pending
09/11/2024 EGD [facility] (Dr. Malcolm) : Normal esophagus. Type I isolated gastric varices (IGV 1, varices located in the fundus) without bleeding. Normal examined duodenum. No specimens collected.
09/09/24 EGD [facility] - Type 1 isolated gastric varices (IGV1, varices
located in the fundus) with a small amount of oozing
and stigmata of recent bleeding found in the gastric
fundus. This is the source of patient's presentation.
No endoscopic therapy was performed given large
isolated gastric varices as these were not contiguous
with the GE-junction
- Moderate portal hypertensive gastropathy
- Otherwise, normal stomach on direct and retroflexion
views
- Normal esophagus without any esophageal varices
- Small amount of red blood in the second portion of
the duodenum. No duodenal varices were visualized
- The examination was otherwise normal.
- No specimens collected.
colonoscopy 08/22/24 Charlotte Bunn MD Non-bleeding internal hemorrhoids were found during retroflexion. The
hemorrhoids were large.
Multiple diverticula were found in the sigmoid colon and descending
colon.
The exam was otherwise without abnormality.
Diffuse colopathy
Old ovesco clip seen in ascending colon
An 8 mm polyp was found in the sigmoid colon. The polyp was sessile.
Polypectomy was not attempted given recent GI bleeding.
repeat colon 6-12 month with fair prep and polyps removed
Small bowel enteroscopy 08/22/24 Charlotte Bunn MD
- Normal esophagus.
- Severe portal hypertensive gastropathy with active
bleeding. Treated with argon plasma coagulation (APC).
- 2 cm hiatal hernia.
- Normal examined duodenum.
- The examined portion of the jejunum was normal.
- No specimens collected.
EGD: 06/29/24 maci Gaviria MD - Normal esophagus.
- Portal hypertensive gastropathy.
- Normal examined duodenum.
- No specimens collected.
05/07/[address] Smith : - Hemorrhoids found on perianal exam.
- The examined portion of the ileum was normal.
- Foreign body (OVSCO clip) at the hepatic flexure.
- Polypoid lesion at the hepatic flexure.
- Diverticulosis in the sigmoid colon and in the
descending colon.
- Internal hemorrhoids.
- No specimens collected.
Colonoscopy 04/13/2024-[facility] - One 15 to 18 mm polyp at the hepatic flexure,
removed using lift and cut and a hot snare and removed
with a cold snare. Resected and retrieved. Injected.
Treated with hot biopsy forceps. Ligated.
- One 4 mm polyp in the descending colon, removed with
a hot snare. Resected and retrieved. Clip was placed.
- Diverticulosis in the sigmoid colon, in the
descending colon and at the splenic flexure.
bx DC -TA and HF - HP polyp
EGD 04/13/2024� [facility] - No gross lesions in the entire esophagus. No varices.
- Z-line variable, 42 cm from the incisors.
- Portal hypertensive gastropathy.
- Normal examined duodenum.
- No specimens collected.
EGD:12/27/22 [facility] - Normal esophagus.
- Portal hypertensive gastropathy.
- Normal examined duodenum.
- No specimens collected.
Assessment / Plan
-
59 y.o male well-known to GI group with past medical history significant for decompensated cirrhosis (HCV vs EtOH) with intractable ascites with weekly para, HE, GI bleeding by recurrent hospitalizations with HE secondary to acute on chronic GI
bleeding 2/2 PHG gastric varix, hx of prior post-polypectomy bleed, prior transfer to [place] for Ultrasound guided gastric artery coiling procedure (09/2024), chronic HCV (s/p treatment with Epclusa s/p SVR), CVA, HTN, COPD, and chronic
thrombocytopenia. Last EGD 11/16/2024 with oozing portal hypertensive gastropathy treated with APC. Hx of recurrent SBP, ecoli ESBL blood/peritoneal fluid, intermediate to doxycycline and required IV ertapenem via midline as an outpatient until
12/06/24. Who comes back to the emergency room with fevers and abdominal pain, elevated lactic acid and paracentesis with WBC cells 10,000 consistent with recurrent SBP.
Impression:
Decompensated cirrhosis
Recurrent SBP, finished outpatient treatment with ertapenem IV on 12/06/2024
--Paracentesis with WBC cells 10,000
TYSON-> currently creatinine 1.6, baseline is usually 0.7
Plan:
-Await blood and fluid cultures
-ID consult
-Will need albumin today (1.5 mg/kg) and on day 3 will need 1 mg/kg dosing of albumin.
-Will discuss timing of repeat paracentesis
-Will need to hold diuretics in setting of TYSON
-Trend daily labs CBC, BMP, LFTs, PT/INR
-Continue Xifaxan and lactulose
-Continue pantoprazole
-Further recommendations to be forthcoming.
-
-
Thank you for consultation and allowing me to participate in the patient's care. Please call the radar air traffic controller GI physician during the after hours with any questions or concerns.
[2024-12-14] MEDS: LR 500 IV (11:58)
[2024-12-14] MEDS: DILAUDID 0.5 MG IV ×3 (12:22→21:57)
[2024-12-14] MEDS: FLEXBUMIN 50 IV (13:03)
--- NOTE | 2024-12-14 13:36 | CON.ID ---
Chief Complaint / Past History
Chief Complaint
abdominal pain
History of Present Illness
Mr Mazariegos is a 59 year old male well-known to ID with past medical history significant for decompensated cirrhosis (HCV vs EtOH) with intractable ascites with weekly paracentesis, recurrent SBP recent due to ESBL E coli with no available oral
treatment options for suppression. He follows with [facility] and I am told by GI service he is not currently listed. He had a urine toxicology screen positive for cocaine in october 2024. He has had recurrent SBP despite multiple
long courses of IV treatment with ertapenem. Completing last 6 week ertapenem course 12/06/2024. Paracentesis on 12/10/2024 that was not suggestive for SBP. Then 12/13 he deeloped malaise, abdominal pain, anorexia. Patient denies any nausea,
vomiting, melena, hematochezia, dysphagia or odynophagia.
Presented to the ER. Temperature of 100.7, WBC 11.6, hemoglobin 7.6, hematocrit 22.4, platelet count of 104, PT 18.6, INR 1.49, sodium 134, potassium 4.1, chloride 102, CO2 18, BUN 34, creatinine 1.6, glucose 114, lactic acid 6 repeat lactic acid
5.5, total bilirubin 5.0, AST 48, ALT 30, alk phos 130, total protein 5.0, albumin 2.9. Paracentesis was performed this morning. Report not available to to me yet, however ascites fluid WBC is 10,000, polys 88.1. Fluid cultures pending. Blood
cultures both now positive with GNR. Started on zosyn. ID is consulted for assistance with management.
Past History
Additional Past Medical History:
End-stage liver disease
Alcoholic cirrhosis
Chronic anemia
Pancytopenia
HCV
GI bleed
Essential hypertension
COPD
History of stroke
Gastric varices
Portal hypertensive gastropathy
Past Surgical History: None
Allergy History:
doxycycline Allergy (Verified 12/14/24 04:57)
Unknown
Medications Reviewed: Yes
Social History
Tobacco: Former Smoker
Alcohol: Former
Drug: None
Family History
Family History: Not Pertinent
Review of Systems
Review of Systems
General: Fever and Chills
All systems: All other systems were reviewed and were negative
Vital Signs
Temp Pulse Resp BP Pulse Ox
100.7 F H 119 17 122/65 93
12/14/24 04:58 12/14/24 08:00 12/14/24 08:00 12/14/24 08:00 12/14/24 08:00
Physical Exam
Physical Exam
Constitutional: Acutely Ill and Chronically Ill
Cardiovascular: Regular Rate and S1/S2; Negative Murmur or Rub
Pulmonary: Clear and Symmetric; Negative Wheezes, Rales or Rhonchi
Gastrointestinal: Soft, Tender, Distended and Normal Bowel Sounds
Skin: Warm and Dry; Negative Rash or Jaundice
Lab / Diagnostic Study Results
12/14/24 06:25
12/14/24 06:25
Abs Immat Gran (auto) 0.1 10^3/uL (0-0.05) H 12/14/24 06:25
Absolute Neuts (auto) 10.8 10^3/uL (1.4-6.5) H 12/14/24 06:25
Absolute Lymphs (auto) 0.5 10^3/uL (1.2-3.4) L 12/14/24 06:25
Absolute Monos (auto) 0.3 10^3/uL (0.1-0.6) 12/14/24 06:25
Absolute Basos (auto) 0.0 10^3/uL (0-0.2) 12/14/24 06:25
Immature Gran % 0.4 % (0-0.5) 12/14/24 06:25
Neutrophils % 93.0 % (42.2-75.2) H 02/07/25 06:25
Lymphocytes % 4.1 % (20.5-51.1) L 12/14/24 06:25
Monocytes % 2.3 % (1.7-9.3) 12/14/24 06:25
Eosinophils % 0.0 % (0-6) 12/14/24 06:25
Basophils % 0.2 % (0-2) 12/14/24 06:25
PT 18.6 Sec (11.4-14.6) H 12/14/24 06:25
INR 1.49 12/14/24 06:25
Lactic Acid 5.5 mmol/L (0.7-2.0) H* 12/14/24 10:12
Microbiology Results
Micro:
12/14/24 06:25 Blood Culture - Pending
Blood/Venous
12/14/24 06:25 Blood Culture - Pending
Blood/Venous
12/14/24 07:57 Body Fluid Culture - Pending
Peritoneal Fluid Gram Stain - Pending
Assessment / Plan
Recurrent SBP
Colonization with ESBL without oral treatment options
- note bacteremia
- body fluid consistent with sbp
- suspect we will see a similar E coli to the previous ESBLs likely without oral suppression options - at some point patient will develop a CRE if he hasnt already developed it
- [facility] transplant service has also been following patient - not currently listed. Recent UDS positive for cocaine 10/12/24 may be a barrier to transplant.
- repeat UDS today
- start zosyn
- we may be running out of effective treatment options, reviewed with patient, he is not open to hospice at this time
[2024-12-14] MEDS: FLEXBUMIN 100 IV ×4 (13:59→22:17)
[2024-12-14] MEDS: LR 1000 IV (16:12)
[2024-12-14] MEDS: DUPHALAC/CHRONULAC 20 GRAMS PO ×2 (16:13→21:23)
[2024-12-14] MEDS: ZOSYN 100 IV ×2 (16:29→21:23)
[2024-12-14] MEDS: SYMBICORT 160/4.5 MCG INHALER 2 PUFF INH (19:50)
[2024-12-14] MEDS: XIFAXAN 550 MG PO (21:23)
[2024-12-14] MEDS: MAG-TAB SR 84 MG PO (21:23)
[2024-12-14] MEDS: PROTONIX 40 MG PO (21:23)
[2024-12-14] MEDS: PREPARATION H OINTMENT 1 APPLIC RECTAL (21:24)
[2024-12-14] MEDS: DESENEX/MITRAZOL/ZEASORB 1 APPLIC TOPICAL (21:24)
[2024-12-14] MEDS: ZOFRAN 4 MG PO (21:57)
[2024-12-14 22:31] LABS: Amphetamines Negative (Negative); Barbiturates Negative (Negative); Benzodiazepines Negative (Negative); Buprenorphine Negative (Negative); Cocaine Negative (Negative); Marijuana Negative (Negative); Methadone Negative (Negative); Methamphetamines Negative (Negative); Opiates Positive (Negative); Phencyclidine Negative (Negative); Tricyclic Antidepressants Negative (Negative)
[2024-12-14 22:55] LABS: Fentanyl, Urine Negative (Negative)
[2024-12-15] VITALS (35 sets, daily range): BP systolic 82–133; BP diastolic 45–63
[2024-12-15] MEDS: ZOSYN 100 IV ×2 (02:00→07:31)
[2024-12-15] MEDS: DILAUDID 0.5 MG IV ×5 (04:19→22:55)
--- NOTE | 2024-12-15 05:00 | PTCARENOTE ---
Pain mgmt overnight. Monitored BP with PRN pain med. Repeat UA sent. See results.
[2024-12-15 07:19] LABS: INR 2.27; PT 25.1 Sec (11.4-14.6)
[2024-12-15] MEDS: VITAMIN B1 100 MG PO (07:29)
[2024-12-15] MEDS: MAG-TAB SR 84 MG PO ×2 (07:29→21:32)
[2024-12-15] MEDS: XIFAXAN 550 MG PO ×2 (07:29→21:32)
[2024-12-15] MEDS: ZINC 50 MG PO (07:29)
[2024-12-15] MEDS: PROTONIX 40 MG PO ×2 (07:30→21:32)
[2024-12-15] MEDS: DUPHALAC/CHRONULAC 20 GRAMS PO ×3 (07:30→21:33)
[2024-12-15] MEDS: FOLVITE 1 MG PO (07:30)
[2024-12-15] MEDS: PREPARATION H OINTMENT 1 APPLIC RECTAL ×2 (07:31→21:40)
[2024-12-15] MEDS: DESENEX/MITRAZOL/ZEASORB 1 APPLIC TOPICAL ×2 (07:31→21:39)
[2024-12-15 07:33] LABS: ALT (SGPT) 15 U/L (0-50); AST (SGOT) 33 U/L (17-59); Albumin 2.9 g/dl (3.5-5.0); Alkaline Phosphatase 57 U/L (38-126); Blood Urea Nitrogen 56 mg/dl (9-20); Calcium 7.7 mg/dl (8.4-10.2); Carbon Dioxide 23 mmol/L (22-30); Chloride 100 mmol/L (98-107); Direct Bilirubin 0.9 mg/dl (0.0-0.4); Estimated Creatinine Clearance 35 ml/min; Glucose 109 mg/dl (70-99); Potassium 4.2 mmol/L (3.5-5.1); Sodium 132 mmol/L (135-145); Total Bilirubin 3.1 mg/dl (0.2-1.3); Total Protein 4.6 g/dl (6.3-8.2); eGFR 31.52
--- NOTE | 2024-12-15 08:15 | W.PN.GI.CBS2 ---
Today's Communication / Plan
-
As per plan
Assessment / Plan
-
59 y.o male well-known to GI group with past medical history significant for decompensated cirrhosis (HCV vs EtOH) with intractable ascites with weekly para, HE, GI bleeding by recurrent hospitalizations with HE secondary to acute on chronic GI
bleeding 2/2 PHG gastric varix, hx of prior post-polypectomy bleed, prior transfer to [place] for Ultrasound guided gastric artery coiling procedure (09/2024), chronic HCV (s/p treatment with Epclusa s/p SVR), CVA, HTN, COPD, and chronic
thrombocytopenia. Last EGD 11/16/2024 with oozing portal hypertensive gastropathy treated with APC. Hx of recurrent SBP, ecoli ESBL blood/peritoneal fluid, intermediate to doxycycline and required IV ertapenem via midline as an outpatient until
12/06/24. Who comes back to the emergency room with fevers and abdominal pain, elevated lactic acid and paracentesis with WBC cells 10,000 consistent with recurrent SBP. Blood cultures x 2 positive for gram-negative bacilli.
Impression:
Decompensated cirrhosis
Recurrent SBP, finished outpatient treatment with ertapenem IV on 12/06/2024
--Paracentesis with WBC cells 10,000.
Gram-negative bacilli bacteremia
TYSON-> currently creatinine 2.3, baseline is usually 0.7
Plan:
-Await blood and fluid cultures
-ID consult appreciated, continue recommendations for antibiotics as per them
-Albumin on day 3 (12/16/24) will need 1 mg/kg dosing of albumin, already ordered.
-Will discuss timing of repeat paracentesis
-Continue to diuretics in setting of TYSON
-Trend daily labs CBC, BMP, LFTs, PT/INR
-Continue Xifaxan and lactulose
-Continue pantoprazole
-Continue 2 g sodium diet
-Daily weights
-Recommend renal consultation
Subjective
Subjective
Date of Service: December 15, 2024
Patient states that he has less abdominal discomfort however still present. He remains afebrile. Continues on Zosyn. Patient did not urinate yesterday. She finally started urinating overnight. Worsening renal function this morning BUN 56,
creatinine 2.3. Up from BUN of 34 and creatinine of 1.6. Patient has not received any diuretics here. Did receive albumin last evening as per SBP protocol. Paracentesis performed by ER was 4 L yesterday a.m. Patient also did receive 1 L lactated
Ringer's fluid bolus yesterday. Bilirubin improving 3.1 down from 5.0. AST 33, ALT 15, alk phos 57 down from 130. CBC pending this a.m.
Objective
Data Reviewed
Laboratory Data:
Laboratory Results
12/15/24 06:47
Laboratory Results
PT 25.1 Sec (11.4-14.6) H 12/15/24 06:47
INR 2.27 12/15/24 06:47
Total Bilirubin 3.1 mg/dl (0.2-1.3) H 12/15/24 06:47
AST 33 U/L (17-59) 12/15/24 06:47
ALT 15 U/L (0-50) 12/15/24 06:47
Alkaline Phosphatase 57 U/L (38-126) 12/15/24 06:47
Vital Signs and I&O:
Vital Signs
Temp Pulse Resp BP Pulse Ox
98.1 F 94 20 93/56 97
12/15/24 03:00 12/15/24 04:15 12/15/24 04:15 12/15/24 04:15 12/15/24 04:15
I&O
12/14/24 12/15/24 12/16/24
06:59 06:59 06:59
Intake Total 1800 / 1800
Output Total 300 / 300
Balance 1500 / 1500
Physical Exam
Physical Exam
HEENT: Anicteric
Cardiology: Normal Sinus Rhythm
Pulmonary: Clear (Anterior)
GI: Soft, Distended, Tender and Normal Bowel Sounds
Extremities: No Edema
Neuro: Non Focal and Other (No asterixis)
--- NOTE | 2024-12-15 08:45 | W.CON.NEPH ---
Consultation
-
Date/Time Consultation Requested: 12/15/2024 845 AM
Date/Time Consultation Performed: 12/15/2024 845 AM
Requesting Provider: Dr. Rodriguez
Performing Provider: Dr. Carlson
Reason for Consultation: Acute kidney injury
Medical History
-
Chief Complaint: Acute kidney injury
History of Present Illness:
The patient is a 59-year-old male with a past medical history of cirrhosis maintained on lactulose furosemide, aldactone, and Xifaxan. He has chronic pain maintained on tramadol. He has a history of recurrent SBP and started developing recurrent
abdominal pain and fever 2 days prior. He had actually been admitted in November with diagnosis of sepsis due to SBP and bacteremia. He was discharged home on IV ertapenem until December 06. We were consulted for acute kidney injury as his
creatinine is now up from 0.7 on -1.6 on 12/14/2024 -2.3 on 12/15/2024.
Past Medical History
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
syndrome, anxiety, insomnia, History of GI bleed secondary to portal hypertension, colon polyp with post-polypectomy bleed, spinal leak with patch, tooth extraction
Social History
Tobacco: Smoker
Alcohol: Former
Drug: Cocaine
Family History
Family History: Not Pertinent
Allergies / Home Medications
Allergy/AdvReac Type Severity Reaction Status Date / Time
doxycycline Allergy Unknown Verified 12/14/24 04:57
�Medication �Instructions �Recorded �Confirmed �Type
thiamine HCl (vitamin B1) 100 mg 100 mg PO DAILY Supplement 03/13/24 12/14/24 History
tablet
budesonide 160 mcg-glycopyr 9 2 inh inhalation R BID 04/11/24 12/14/24 History
mcg-formot 4.8 mcg/actuation HFA Lung/Breathing Issues
inhaler (Breztri Aerosphere)
magnesium oxide 400 mg PO BID Supplement 06/28/24 12/14/24 History
rifaximin 550 mg tablet (Xifaxan) 550 mg PO BID hepatic 06/28/24 12/14/24 History
encephalopathy
pantoprazole 40 mg tablet,delayed 40 mg PO BID Gastrointestinal Issue 08/02/24 12/14/24 History
release (Protonix)
lidocaine 4 % topical patch 1 patch topical DAILYPRN PRN right 09/08/24 12/14/24 History
knee and right shoulder
miconazole nitrate 2 % topical 1 applic topical BID groin/scrotum 09/08/24 12/14/24 History
powder (Miconazorb AF)
ondansetron HCl 4 mg tablet 4 mg PO DAILYPRN PRN nasuea 09/08/24 12/14/24 History
phenylephrine 0.25 %-mineral oil 1 applic [place] BID hemorrhoids 09/26/24 12/14/24 History
14 %-petrolatm 74.9 % rectal
ointment
(Hemorrhoidal(phenyleph-min
oil-petrolat))
tramadol 50 mg tablet 50 mg PO BIDPRN PRN 09/26/24 12/14/24 History
moderate-severe pain
furosemide 20 mg tablet 20 mg PO DAILY Fluid 10/06/24 12/14/24 History
retention/Swelling
folic acid 1 mg tablet 1 mg PO DAILY #30 tabs 10/23/24 12/14/24 Rx
nicotine 7 mg/24 hr daily 7 mg transdermal DAILY #14 ea 10/23/24 12/14/24 Rx
transdermal patch
spironolactone 25 mg tablet 12.5 mg (1/2 x 25 mg) PO DAILY #30 11/01/24 12/14/24 Rx
tabs
zinc sulfate 50 mg zinc (220 mg) 50 mg PO DAILY 11/15/24 12/14/24 History
tablet
lactulose 10 gram/15 mL oral 20 g PO TID 12/14/24 12/14/24 History
solution
Review of Systems
-
History Source: Patient
All other systems: Negative unless noted
Constitutional: Fever, Fatigue and Chills
EENT: No Symptoms
Respiratory: No Symptoms
Cardiac: No Symptoms
Abdomen/GI: Abdominal Pain, Nausea, Vomiting and Other (ascities)
: No Symptoms
Musculoskeletal: No Symptoms
Skin: Other (Jaundice)
Neurological: No Symptoms
Endocrine: No Symptoms
Hematologic/Lymphatic: No Symptoms
Physical Exam
Vital Signs
Vital Signs
Temp Pulse Resp BP Pulse Ox
97.9 F 92 20 82/45 94
12/15/24 08:41 12/15/24 08:41 12/15/24 08:41 12/15/24 08:41 12/15/24 08:41
Lab Results
12/15/24 06:47
Sodium 132 mmol/L (135-145) L 12/15/24 06:47
Potassium 4.2 mmol/L (3.5-5.1) 12/15/24 06:47
Chloride 100 mmol/L (98-107) 12/15/24 06:47
Carbon Dioxide 23 mmol/L (22-30) 12/15/24 06:47
BUN 56 mg/dl (9-20) H 12/15/24 06:47
Creatinine 2.3 mg/dL (0.7-1.3) H 12/15/24 06:47
eGFR 31.52 12/15/24 06:47
Glucose 109 mg/dl (70-99) H 12/15/24 06:47
Calcium 7.7 mg/dl (8.4-10.2) L 12/15/24 06:47
Albumin 2.9 g/dl (3.5-5.0) L 12/15/24 06:47
Physical Exam
General: AOx3, Nontoxic , NAD
HEENT: PERRL, EOMI, icteric, Conjunctivae Clear, Ear/Nose Intact, Hearing Normal, Oropharynx Clear/Moist, Dentition Intact, Facial Symmetry, Neck Supple, Neck: Trachea Midline, No JVD and No Thyromegaly, no Bruits
Respiratory: Clear to auscultation bilaterally with normal lung exersion
Cardiac: S1/S2 and Regular Rate/Rhythm
Breast: Deferred by me
Abdomen: Soft, Nontender, Acities Normal Bowel Sounds and No Hepatosplenomegaly
Rectal: Deferred by Provider
Genito-urinary: No Costovertebral Tenderness
Extremities: No Clubbing, No Cyanosis and No Edema
Skin: No Rash or open lesions, jaundice
Neuro: Nonfocal/Grossly Intact, CN II-XII (Intact) and Strength (Musculoskeletal exam 5 out of 5 both upper and lower extremities)
Hematologic/Lymphatic: No Cervical Lymphadenopathy, No Submandibular Lymphadenopathy and No Supraclavicular Lymphadenopathy
Psych: Mood/afflect pleasant, Insight/judgement good and Appropriate
Vascular: plus 1 pedal and radial pulses
Data Reviewed
-
Labs: Labs Reviewed by me (BMP CBC)
Old Records: Reviewed (Reviewed previous creatinine from november 262024: 0.7)
Assessment/Plan
-
Assessment
TYSON
Hyponatremia
Hypoalbuminemia
ESLD
Gram-negative bacilli bacteremia
Ascites
anemia
COPD
Thrombocytopenia
Coagulopathy
Plan
TYSON likely a function of prerenal stimulus in the setting of decompensated cirrhosis and hemodynamic instability
Maintain MAP greater than 65, albumin provided, will add as needed midodrine
Holding Aldactone and Lasix
Transfuse packed red blood cells as needed
We will need to renally adjust Zosyn dosage for compromised GFR of less than 30 cc per minute: discussed with ID
Follow BMP
Will add fluid restriction if hyponatremia exacerbates
urine studies consistent with prerenal (anemia + liverdecompensation)
Patient already underwent paracentesis earlier this week but may require again
IV albumin was provided by GI
Total Time Spent with Patient (in minutes): 60
[2024-12-15] MEDS: SYMBICORT 160/4.5 MCG INHALER 2 PUFF INH ×2 (08:56→21:47)
[2024-12-15] MEDS: SPIRIVA RESPIMAT 2.5 MCG 2 PUFF INH (08:58)
[2024-12-15 09:40] LABS: Hematocrit 15.1 % (39.0-52.0); Hemoglobin 5.1 g/dL (13.0-18.0); Mean Corp Hgb Conc. 33.8 g/dL (33.0-37.0); Mean Corpuscular Hgb 34.2 pg (27.0-31.0); Mean Corpuscular Volume 101.3 fL (80.0-94.0); Mean Platelet Volume 11.2 fL (7.4-10.4); Platelet Count 45 10^3/uL (130-400); Red Blood Cell Count 1.49 10^6/uL (4.70-6.10); Red Cell Dist. Width 20.6 % (11.5-14.5); White Blood Cell Count 4.8 10^3/uL (4.8-10.8)
--- NOTE | 2024-12-15 10:02 | W.PN.HOSP.TC ---
Today's Communication/Plan
-
Transfuse
Continue antibiotics
PT/OT
Assessment / Plan
Assessment / Plan
Gen-AAOx3, NAD
HEENT-NC, AT, anicteric, clear oral mm
Neck-supple
CV-reg, no M, +S1/S2
Lungs-clear B/L
Abd-distended, tender diffusely
Ext-no edema
Musculoskeletal-no cyanosis, clubbing
Skin-warm and dry
Neuro-grossly non-focal
Psych-calm, cooperative
Sepsis due to recurrent SBP -continue IV Zosyn at renal dose. Leukocytosis improved. Blood cultures from December 14 so far positive for gram-negative bacilli. Ascitic fluid culture pending. Infectious disease following.
TYSON -unfortunately creatinine is rising, 2.3 this morning. Persistent hypotension noted. Differential diagnosis includes HRS. Midodrine initiated by nephrology.
Diuretics on hold.
Acute on chronic anemia -hemoglobin dropped to 5.1 this morning. No obvious bleeding. Hemodilution from IV fluids possible. Transfuse today. Discussed with patient and at the bedside.
Decompensated cirrhosis -presentation with recurrent ascites and SBP. Last paracentesis was December 14, 4 L removed in the emergency room. IV albumin per GI service.
Intractable abdominal pain -likely due to acute peritonitis, SBP. Getting IV Dilaudid as needed.
ESLD
Hyponatremia -sodium 132 this morning.
Pancytopenia
History of GI bleed
COPD without exacerbation
Gastric varices
Portal hypertensive gastropathy
Full code
updated at the bedside.
Anticipated Discharge: > 48 hours
Subjective/Interval History
-
Date of Service: December 15, 2024
Patient seen and examined. Complaining of abdominal pain, fatigue.
Objective Data
-
Labs:
Laboratory Results
12/15/24 12/15/24
06:47 08:46
WBC Cancelled 4.8
Hgb Cancelled 5.1 L* D
Hct Cancelled 15.1 L*
Plt Count Cancelled 45 L D
PT 25.1 H
INR 2.27
Sodium 132 L
Potassium 4.2
Chloride 100
Carbon Dioxide 23
BUN 56 H
Creatinine 2.3 H
Glucose 109 H
Calcium 7.7 L
Total Bilirubin 3.1 H
AST 33
ALT 15
Alkaline Phosphatase 57
Vital Signs:
Vital Signs
Temp Pulse Resp BP Pulse Ox
97.9 F 87 18 82/45 94
12/15/24 08:41 12/15/24 09:03 12/15/24 09:03 12/15/24 08:41 12/15/24 09:03
I&O
12/14/24 12/15/24 12/16/24
06:59 06:59 06:59
Intake Total 1800 / 1800
Output Total 300 / 300
Balance 1500 / 1500
Review of Systems
-
History Source: Patient
All other systems: Reviewed and negative
[2024-12-15 10:51] LABS: % Eosinophils 0.4 % (0-6); % Immature Granulocytes 0.6 % (0-0.5); % Lymphocytes 10.3 % (20.5-51.1); % Monocytes 8.6 % (1.7-9.3); % Neutrophils 80.1 % (42.2-75.2); Absolute Lymphocytes 0.5 10^3/uL (1.2-3.4); Absolute Monocytes 0.4 10^3/uL (0.1-0.6); Absolute Neutrophils 3.8 10^3/uL (1.4-6.5); Nucleated Red Blood Cells % 0 % (-)
[2024-12-15] MEDS: ProAmatine 5 MG PO (11:19)
--- NOTE | 2024-12-15 12:13 | W.PN.GI.CBS2 ---
Today's Communication / Plan
-
abdominal imaging
Assessment / Plan
-
59 y.o male well-known to GI group with past medical history significant for decompensated cirrhosis (HCV vs EtOH) with intractable ascites with weekly para, HE, GI bleeding by recurrent hospitalizations with HE secondary to acute on chronic GI
bleeding 2/2 PHG gastric varix, hx of prior post-polypectomy bleed, prior transfer to [facility] for Ultrasound guided gastric artery coiling procedure (09/2024), chronic HCV (s/p treatment with Epclusa s/p SVR), CVA, HTN, COPD, and chronic
thrombocytopenia. Last EGD 11/16/2024 with oozing portal hypertensive gastropathy treated with APC. Hx of recurrent SBP, ecoli ESBL blood/peritoneal fluid, intermediate to doxycycline and required IV ertapenem via midline as an outpatient until
12/06/24. Who comes back to the emergency room with fevers and abdominal pain, elevated lactic acid and paracentesis with WBC cells 10,000 consistent with recurrent SBP. Blood cultures x 2 positive for gram-negative bacilli.
Impression:
Decompensated cirrhosis
Recurrent SBP, finished outpatient treatment with ertapenem IV on 12/06/2024
--Paracentesis with WBC cells 10,000.
Gram-negative bacilli bacteremia
TYSON-> currently creatinine 2.3, baseline is usually 0.7
Hgb drop to 5.1
Plan:
- recheck hgb was 5.1 as per nurse (rechecked)
- imaging of the abdomen to r/o hemoperitoneum
-Await blood and fluid cultures
-Albumin on day 3 (12/16/24) will need 1 mg/kg dosing of albumin, already ordered.
-Trend daily labs CBC, BMP, LFTs, PT/INR
-Continue Xifaxan and lactulose
-Continue pantoprazole
-Continue 2 g sodium diet
-Daily weights
-Recommend renal consultation
d/w Dr. Rodriguez via TT
Subjective
Subjective
Date of Service: December 15, 2024
Pt states same amount of abdominal discomfort but not worse.
Objective
Data Reviewed
Laboratory Data:
Laboratory Results
12/15/24 08:46
12/15/24 06:47
Laboratory Results
PT 25.1 Sec (11.4-14.6) H 12/15/24 06:47
INR 2.27 12/15/24 06:47
Total Bilirubin 3.1 mg/dl (0.2-1.3) H 12/15/24 06:47
AST 33 U/L (17-59) 12/15/24 06:47
ALT 15 U/L (0-50) 12/15/24 06:47
Alkaline Phosphatase 57 U/L (38-126) 12/15/24 06:47
Vital Signs and I&O:
Vital Signs
Temp Pulse Resp BP Pulse Ox
97.9 F 88 18 86/50 94
12/15/24 08:41 12/15/24 11:19 12/15/24 09:03 12/15/24 11:19 12/15/24 09:03
I&O
12/14/24 12/15/24 12/16/24
06:59 06:59 06:59
Intake Total 1800 / 1800
Output Total 300 / 300
Balance 1500 / 1500
Physical Exam
Physical Exam
GI: Distended and Tender (mildly tender)
--- NOTE | 2024-12-15 12:51 | TRANSFER ---
Addendum entered by Teddy Tracy RN 12/15/24 12:55:
ROOM [id number]
Ext [id number]
Patient KATIA was called and informed about patient current condition and new assigned room.
Original Note:
Patient brought up from CT Scan, results pending. RN called Venkata RN @ 3370 ICU, report was given, Pt transferred to ICU with RN. Pt AAOx3 reports abd pain 08/16. All belonging from room with patient.
--- NOTE | 2024-12-15 12:52 | W.PN.ID1 ---
Date of Service
Date of Service: December 15, 2024
Today's Communication
Replace Zosyn with meropenem.
Assessment / Plan
Recurrent SBP and bacteremia with ESBL-Ecoli.
Decompensated end-stage cirrhosis with recurrent ascites, weekly paracentesis
shock: hemorrhagic vs septic or both
TYSON
Acute on chronic anemia
-[facility] transplant service has also been following patient - not currently listed. Recent UDS positive for cocaine 10/12/24 may be a barrier to transplant.
- Ascitic fluid: 10,000 WBC, 88% polys; Cx GNR (suspect ESBL-E. coli)
- GNR bacteremia (suspect ESBL-E. coli)
- Replace Zosyn with meropenem for complicated ESBL- E. coli infection.
- Follow temps, wbc, vitals
- Prognosis guarded
- I had nahomy discussion with patient. He has failed multiple courses of antibiotic including Ertapenem x 10 d followed by doxycycline suppressive therapy; Ertapenem x 14days; more recently Ertapenem x 21 days completed 12/06/24,now with relapse of
SBP, bacteremia within 7 days. There is no oral abx option for suppressive therapy. Lifelong IV antibiotic is not an option. I recommended he reconsider hospice.
Chief Complaint
-: Bacteremia and Other (SBP)
Subjective / Review of Systems
Feels weak. Abd pain better after paracentesis.
Vital Signs / Physical Exam
Vital Signs
Vital Signs
Temp Pulse Resp BP Pulse Ox
97.9 F 88 18 86/50 94
12/15/24 08:41 12/15/24 11:19 12/15/24 09:03 12/15/24 11:19 12/15/24 09:03
Physical Exam
Constitutional: No Acute Distress and Chronically Ill
Eyes: Other (sclera icteric)
Cardiovascular: Regular Rate and S1/S2
Pulmonary: Clear
Gastrointestinal: Soft, Non Tender and Distended
Genito-Urinary: Negative CVA Tenderness
Extremities: Edema
Skin: Jaundice
Neurological: AO x 3
Objective Data
Lab Data
Lab Results
12/15/24 08:46
12/15/24 06:47
PT 25.1 Sec (11.4-14.6) H 12/15/24 06:47
INR 2.27 12/15/24 06:47
Estimated Creat Clear 35 ml/min 12/15/24 06:47
Lactic Acid 5.5 mmol/L (0.7-2.0) H* 12/14/24 10:12
Total Bilirubin 3.1 mg/dl (0.2-1.3) H 12/15/24 06:47
AST 33 U/L (17-59) 12/15/24 06:47
ALT 15 U/L (0-50) 12/15/24 06:47
Alkaline Phosphatase 57 U/L (38-126) 12/15/24 06:47
Most recent labs reviewed.
Micro Results:
12/14/24 07:57 Body Fluid Culture - Preliminary
Peritoneal Fluid Gram negative bacilli
Gram Stain - Final
12/14/24 06:25 Blood Culture - Preliminary
Blood/Venous Positive culture in progress
Gram Stain - Preliminary
12/14/24 06:25 Blood Culture - Preliminary
Blood/Venous Positive culture in progress
Gram Stain - Preliminary
12/15/24 CT a/p: No CT evidence for a hematoma in the abdomen or pelvis. Hepatic cirrhosis with secondary findings of portal hypertension including splenomegaly and moderate abdominopelvic ascites. Ascites measures simple fluid attenuation. Large
right inguinal hernia containing ascites.
[2024-12-15] MEDS: ZOSYN 50 IV (13:11)
[2024-12-15] MEDS: ProAmatine 2.5 MG PO ×2 (13:11→17:42)
--- NOTE | 2024-12-15 13:24 | PTCARENOTE ---
pt aaox3. states 9/10 pain in abd worse on right side. abd distended round firm with umbilical hernia present. room air. breath sounds diminished. pt asked for his to be called. called left message.
--- NOTE | 2024-12-15 13:33 | CON.INTV ---
Consultation
Consultation Request
Date/Time Consultation Requested: 12/15/2024
Date/Time Consultation Performed: 12/15/2024
Requesting Provider: Dr. Rodriguez
Performing Provider: Dr. Gautam Roy
Reason for Consultation: Hypotension/acute GI bleed
Medical History
-
History of Present Illness:
59-year-old man with past medical history significant for end-stage liver disease, recurrent spontaneous bacterial peritonitis, admitted through the emergency room complaining of recurrent abdominal pain, fevers what prompted to come to the
emergency room on 12/14/2024.
Recently discharged from the hospital on November 23 due to sepsis and spontaneous bacterial peritonitis. Discharged home on IV antibiotics in December 06.
Patient has decompensated cirrhosis. Underwent paracentesis demonstrated recurrent SBP.
Received albumin 1.5 g/kg and will receive daily until 12/16/2024.
Patient has a recent cocaine positive UDS on 10/12/2024.
Patient previous SBP with E. coli. Developed despite antibiotics.
Infectious disease consulted and started on Zosyn.
He also has bacteremia with gram-negative bacilli this admission.
-
Patient developed hypotension and he was transferred to the critical care unit for evaluation/ongoing care-underwent CT angiogram of the abdomen negative for hemoperitoneum.
PMHx: Hypertension, alcoholic cirrhosis, meningitis, anxiety/depression, history of umbilical + testicular hernia, history of hepatitis C virus, pneumonia, history of emphysema/COPD on Breztri, history of stroke (right frontal lobe), tobacco use
disorder, history of thrush
PSHx: Spinal fluid leak repair, tooth extraction
Past Medical History
Past Medical History: Other
Past Surgical History: Other (Above as per HPI)
Social History
Tobacco: Smoker (50-jywf-hhid history)
Alcohol: Other (Reports no alcohol use but there apparently is evidence that he has been drinking recently via a alcoholic metabolite)
Drug: Cocaine and Other (Opioids)
Personal:
Living: With Family
Employment: Employed
Family History
Family History: CAD (Father + mother), Diabetes (Mother) and Other (Father: Hx of polyps)
Allergies / Home Medications
Allergies
Allergy/AdvReac Type Severity Reaction Status Date / Time
doxycycline Allergy Unknown Verified 12/14/24 04:57
Home Medications
�Medication �Instructions �Recorded �Confirmed �Last Taken �Type
thiamine HCl (vitamin B1) 100 mg 100 mg PO DAILY Supplement 03/13/24 12/14/24 12/13/24 History
tablet
budesonide 160 mcg-glycopyr 9 2 inh inhalation R BID 04/11/24 12/14/24 12/13/24 History
mcg-formot 4.8 mcg/actuation HFA Lung/Breathing Issues
inhaler (Breztri Aerosphere)
magnesium oxide 400 mg PO BID Supplement 06/28/24 12/14/24 12/13/24 History
rifaximin 550 mg tablet (Xifaxan) 550 mg PO BID hepatic 06/28/24 12/14/24 12/13/24 History
encephalopathy
pantoprazole 40 mg tablet,delayed 40 mg PO BID Gastrointestinal Issue 08/02/24 12/14/24 12/13/24 History
release (Protonix)
lidocaine 4 % topical patch 1 patch topical DAILYPRN PRN right 09/08/24 12/14/24 12/09/24 History
knee and right shoulder
miconazole nitrate 2 % topical 1 applic topical BID groin/scrotum 09/08/24 12/14/24 12/13/24 History
powder (Miconazorb AF)
ondansetron HCl 4 mg tablet 4 mg PO DAILYPRN PRN nasuea 09/08/24 12/14/24 12/09/24 History
phenylephrine 0.25 %-mineral oil 1 applic [place] BID hemorrhoids 09/26/24 12/14/24 12/13/24 History
14 %-petrolatm 74.9 % rectal
ointment
(Hemorrhoidal(phenyleph-min
oil-petrolat))
tramadol 50 mg tablet 50 mg PO BIDPRN PRN 09/26/24 12/14/24 12/14/24 History
moderate-severe pain
furosemide 20 mg tablet 20 mg PO DAILY Fluid 10/06/24 12/14/24 12/13/24 History
retention/Swelling
folic acid 1 mg tablet 1 mg PO DAILY #30 tabs 10/23/24 12/14/24 12/13/24 Rx
nicotine 7 mg/24 hr daily 7 mg transdermal DAILY #14 ea 10/23/24 12/14/24 12/02/24 Rx
transdermal patch
spironolactone 25 mg tablet 12.5 mg (1/2 x 25 mg) PO DAILY #30 11/01/24 12/14/24 12/13/24 Rx
tabs
zinc sulfate 50 mg zinc (220 mg) 50 mg PO DAILY 11/15/24 12/14/24 12/13/24 History
tablet
lactulose 10 gram/15 mL oral 20 g PO TID 12/14/24 12/14/24 Unknown History
solution
Review of Systems
-
History Source: Patient
All other systems: Negative unless noted
Vitals / Labs / Diagnostic Testing
Vital Signs
Temp Pulse Resp BP Pulse Ox
97.9 F 88 18 105/62 94
12/15/24 08:41 12/15/24 11:19 12/15/24 09:03 12/15/24 13:11 12/15/24 09:03
Lab Data
12/15/24 08:46
12/15/24 06:47
Laboratory Results
12/15/24
06:47
PT 25.1 H
INR 2.27
Microbiology
12/14/24 06:25 Blood/Venous Blood Culture - Preliminary
Positive culture in progress
12/14/24 06:25 Blood/Venous Gram Stain - Preliminary
12/14/24 06:25 Blood/Venous Blood Culture - Preliminary
Gram negative bacilli
12/14/24 06:25 Blood/Venous Gram Stain - Preliminary
12/14/24 07:57 Peritoneal Fluid Body Fluid Culture - Preliminary
Gram negative bacilli
12/14/24 07:57 Peritoneal Fluid Gram Stain - Final
Diagnostic Testing:
Physical Exam
-
HEENT: Normocephalic
Cardiovascular: S1/S2
Respiratory: Non-Labored Respirations
GI: Soft and Distended (Ascites)
Neurology: Awake, Alert and No Motor Deficits
Skin: Warm
General: Comfortable
Assessment
-
59-year-old man with end-stage liver disease, recurrent SBP's, readmitted to the hospital with ongoing abdominal pain. Underwent paracentesis consistent with recurrent SBP 12/14/2024. Also has blood cultures positive, negative bacilli. Prior SBP
was from E. coli. On 12/15/2024 hemoglobin was 5 and patient developed hypotension. Received transfusion. Underwent CT abdomen pelvis that was negative. Due to concern for worsening hypotension he was transferred to the critical care unit for
further care
Shock hypotension: Multifactorial
Likely acute on chronic blood loss anemia
Severe sepsis due to SBP and bacteremia.
Low albumin state due to advanced cirrhosis also contributing.
Right lower lobe infiltrate suspect atelectasis-cannot rule out pneumonia
Acute kidney injury-prerenal in tract abdominal pain due to SBP.
Conditions present prior admission:
Recurrent SBP
End-stage liver disease due to alcohol disorder
Chronic anemia
Pancytopenia
Hepatitis C virus
History of GI bleed
Hypertension
? COPD-on BREZTRI
History of a stroke
Gastric varices
Portal gastropathy
Former smoker
Assessment and plan:
Critically ill, transferred to the critical care unit for further care
Developed hypotension. Multifactorial sepsis/? Blood loss anemia-cannot rule out component of GI bleed/hypovolemic state from cirrhosis status post paracentesis.
CT abdomen pelvis without hemoperitoneum
-
Continue albumin per GI post paracentesis
Continue antibiotics per [id number] bacteremia/GUANAKITO. Recurrent.
Follow culture identification
Monitor for bleeding
Transfusion of 2 units of packed red blood cells will get it later today.
Status post IV fluid resuscitation. No further IV fluids necessary.
Follow H&H
-
Will start Kuldeep-Synephrine if necessary for hypotension.
-
Continue narcotics with IV hydromorphone-monitor respiratory status closely.
At risk for respiratory failure due to underlying COPD/abdominal distention from ascites
-
GI following the patient
Rifaximin
Lactulose
Protonix twice a day orally
Follow coagulopathy
Follow platelet counts transfuse as necessary
-
COPD: Not in exacerbation-patient has a wet cough.
Continue inhalers
Incentive spirometer
Oxygen to maintain pulse ox above 90%.
Nicotine patch
-
Aspiration precaution
-
Poor prognosis.
-
Critical care statement: A total of 34 minutes of critical care time was provided for this patient today. This includes management of unstable vital signs, evaluation of the patient at bedside, reviewing the patient's pertinent medical records
including ventilator settings, arterial blood gases, radiographs, microbiology, laboratory evaluations and discussion with primary team, critical care nursing, and respiratory therapy.
--- NOTE | 2024-12-15 14:19 | PTCARENOTE ---
first unit prbc started. pt states 9/10 abd pain pain med given as ordered.
[2024-12-15 15:55] LABS: Reticulocyte Count 7.2 % (0.4-2.8)
[2024-12-15] MEDS: STERILE WATER FOR INJECTION 10 ML IV ×2 (16:02→22:56)
[2024-12-15] MEDS: MERREM 500 MG IV ×2 (16:02→22:56)
[2024-12-15 16:16] LABS: GGTP 15 U/L (15-73); LDH 158 U/L (120-246)
--- NOTE | 2024-12-15 20:00 | PTCARENOTE ---
Pt Aox3, VSS, 2L o2 sats 94%. C/o pain throughout abdomen, PRN Dilaudid. 2/2 PRBC completed.
[2024-12-15 22:44] LABS: % Basophils 0.1 % (0-2); % Immature Granulocytes 0.7 % (0-0.5); % Lymphocytes 6.3 % (20.5-51.1); % Monocytes 7.7 % (1.7-9.3); % Neutrophils 84.2 % (42.2-75.2); Absolute Eosinophils 0.1 10^3/uL (0-0.7); Absolute Immature Granulocytes 0.1 10^3/uL (0-0.05); Absolute Lymphocytes 0.5 10^3/uL (1.2-3.4); Absolute Monocytes 0.6 10^3/uL (0.1-0.6); Hematocrit 20.7 % (39.0-52.0); Hemoglobin 6.9 g/dL (13.0-18.0); Mean Corp Hgb Conc. 33.3 g/dL (33.0-37.0); Mean Corpuscular Hgb 32.1 pg (27.0-31.0); Mean Corpuscular Volume 96.3 fL (80.0-94.0); Nucleated Red Blood Cells % 0 % (-); Platelet Count 45 10^3/uL (130-400); Red Blood Cell Count 2.15 10^6/uL (4.70-6.10); Red Cell Dist. Width 18.7 % (11.5-14.5); White Blood Cell Count 7.1 10^3/uL (4.8-10.8)
[2024-12-15] MEDS: STERILE WATER FOR INJECTION IV (22:56)
[2024-12-16] VITALS (22 sets, daily range): BP systolic 91–130; BP diastolic 54–70; PULSE 93–99; O2SAT 91–92; BMI 24.2
--- NOTE | 2024-12-16 | PTCARENOTE ---
Hemoglobin s/p 2PRBCs 6.9, another unit RBCs ordered.
[2024-12-16] MEDS: DILAUDID 0.5 MG IV ×6 (03:38→23:34)
[2024-12-16 06:50] LABS: ALT (SGPT) 15 U/L (0-50); AST (SGOT) 37 U/L (17-59); Albumin 2.8 g/dl (3.5-5.0); Alkaline Phosphatase 56 U/L (38-126); Blood Urea Nitrogen 57 mg/dl (9-20); Calcium 7.7 mg/dl (8.4-10.2); Carbon Dioxide 21 mmol/L (22-30); Chloride 104 mmol/L (98-107); Estimated Creatinine Clearance 44 ml/min; Glucose 146 mg/dl (70-99); Potassium 3.9 mmol/L (3.5-5.1); Sodium 134 mmol/L (135-145); Total Bilirubin 3.7 mg/dl (0.2-1.3); Total Protein 4.7 g/dl (6.3-8.2)
[2024-12-16 06:59] LABS: % Basophils 0.1 % (0-2); % Eosinophils 0.4 % (0-6); % Immature Granulocytes 0.8 % (0-0.5); % Lymphocytes 7.4 % (20.5-51.1); % Monocytes 7.6 % (1.7-9.3); % Neutrophils 83.7 % (42.2-75.2); Absolute Immature Granulocytes 0.1 10^3/uL (0-0.05); Absolute Lymphocytes 0.6 10^3/uL (1.2-3.4); Absolute Monocytes 0.6 10^3/uL (0.1-0.6); Absolute Neutrophils 6.4 10^3/uL (1.4-6.5); Hematocrit 22.1 % (39.0-52.0); Hemoglobin 7.7 g/dL (13.0-18.0); Mean Corp Hgb Conc. 34.8 g/dL (33.0-37.0); Mean Corpuscular Hgb 32.6 pg (27.0-31.0); Mean Corpuscular Volume 93.6 fL (80.0-94.0); Mean Platelet Volume 10.9 fL (7.4-10.4); Nucleated Red Blood Cells % 0 % (-); Platelet Count 54 10^3/uL (130-400); Red Blood Cell Count 2.36 10^6/uL (4.70-6.10); Red Cell Dist. Width 18.4 % (11.5-14.5); White Blood Cell Count 7.6 10^3/uL (4.8-10.8)
--- NOTE | 2024-12-16 07:00 | PTCARENOTE ---
pt received at change of shift from previous RN. Pt AAOx3. generalized weakness noted. pt reports abdominal pain- requesting prn dilaudid. SR on telemetry heart rate in 90s. pulses palpable. pt on room air, sat 93%. lung sounds diminished. abdomen
round, firm. poor appetite. voiding in urinal. see worklist for full nursing assessment and interventions.
[2024-12-16] MEDS: SYMBICORT 160/4.5 MCG INHALER INH ×2 (07:31→19:17)
[2024-12-16] MEDS: SPIRIVA RESPIMAT 2.5 MCG INH (07:31)
[2024-12-16] MEDS: FOLVITE 1 MG PO (08:00)
[2024-12-16] MEDS: DUPHALAC/CHRONULAC 20 GRAMS PO ×3 (08:00→20:59)
[2024-12-16] MEDS: VITAMIN B1 100 MG PO (08:00)
[2024-12-16] MEDS: MAG-TAB SR 84 MG PO ×2 (08:00→20:59)
[2024-12-16] MEDS: DESENEX/MITRAZOL/ZEASORB 1 APPLIC TOPICAL ×2 (08:00→21:01)
[2024-12-16] MEDS: ZINC 50 MG PO (08:00)
[2024-12-16] MEDS: PROTONIX 40 MG PO ×2 (08:00→20:59)
[2024-12-16] MEDS: STERILE WATER FOR INJECTION 10 ML IV ×3 (08:01→23:35)
[2024-12-16] MEDS: ProAmatine 2.5 MG PO ×3 (08:01→17:55)
[2024-12-16] MEDS: XIFAXAN 550 MG PO ×2 (08:01→20:59)
[2024-12-16] MEDS: MERREM 500 MG IV ×3 (08:01→23:35)
[2024-12-16] MEDS: PREPARATION H OINTMENT 1 APPLIC RECTAL ×2 (08:01→21:01)
--- NOTE | 2024-12-16 08:02 | W.PN.HOSP.TC ---
Today's Communication/Plan
-
Continue current care
Transfer out of ICU today
Assessment / Plan
Assessment / Plan
Gen-AAOx3, NAD
HEENT-NC, AT, anicteric, clear oral mm
Neck-supple
CV-reg, no M, +S1/S2
Lungs-clear B/L
Abd-distended, tender diffusely
Ext-no edema
Musculoskeletal-no cyanosis, clubbing
Skin-warm and dry
Neuro-grossly non-focal
Psych-calm, cooperative
Sepsis due to recurrent SBP -sepsis improving. Lactic acidosis from sepsis noted. Responding to antibiotics. Currently on IV meropenem per ID. Blood and ascitic fluid cultures show gram-negative bacilli, speciation pending.
Both September 2024 and November 2024 blood cultures and fluid cultures showed ESBL E. coli.
At this point he is out of options and infectious disease is recommending hospice. No good oral suppressive antibiotic options available. Patient not interested in hospice currently.
Patient is currently getting evaluated by [facility] for liver transplant. Has an virtual appointment with them this Tuesday the .
TYSON -now improving, creatinine 1.8. Blood pressure improved on midodrine. Nephrology following.
Diuretics on hold.
Please check daily weights.
Acute on chronic anemia -hemoglobin improved to 7.7 today. Transfused 3 units of blood. No evidence of bleeding on CT abdomen. No evidence of hemolysis. LDH is normal. Hemodilution from IV fluids/IV albumin possible.
Decompensated cirrhosis -presentation with recurrent ascites and SBP. Last paracentesis was December 14, 4 L removed in the emergency room. IV albumin per GI service.
Intractable abdominal pain -likely due to acute peritonitis, SBP. Getting IV Dilaudid as needed. Abdominal pain overall improving.
ESLD
Hyponatremia -sodium 134 this morning.
Pancytopenia -WBC count currently normal, platelet count 54,000. Etiology of pancytopenia due to ESLD.
History of GI bleed
COPD without exacerbation
Gastric varices
Portal hypertensive gastropathy
Full code
Prognosis unfortunately remains poor.
Anticipated Discharge: > 48 hours
Subjective/Interval History
-
Date of Service: December 16, 2024
Patient seen and examined. Feeling better, less abdominal pain today.
Objective Data
-
Labs:
Laboratory Results
12/15/24 12/16/24
22:12 06:06
WBC 7.1 7.6
Hgb 6.9 L* D 7.7 L
Hct 20.7 L* 22.1 L
Plt Count 45 L 54 L
Sodium 134 L
Potassium 3.9
Chloride 104
Carbon Dioxide 21 L
BUN 57 H
Creatinine 1.8 H
Glucose 146 H
Calcium 7.7 L
Total Bilirubin 3.7 H
AST 37
ALT 15
Alkaline Phosphatase 56
Vital Signs:
Vital Signs
Temp Pulse Resp BP Pulse Ox
98.6 F 88 12 125/62 94
12/16/24 07:23 12/16/24 05:00 12/16/24 05:00 12/16/24 05:00 12/16/24 05:00
I&O
12/15/24 12/16/24 12/17/24
06:59 06:59 06:59
Intake Total 1800 / 1800 1300 / 1300
Output Total 300 / 300 800 / 800
Balance 1500 / 1500 500 / 500
Review of Systems
-
History Source: Patient
All other systems: Reviewed and negative
[2024-12-16 08:19] LABS: LDH 221 U/L (120-246)
--- NOTE | 2024-12-16 08:31 | W.PN.NEPH.PH ---
Today's Communication / Plan
-
maintain MAP >65
follow bmp
Assessment/Plan
-
Assessment
TYSON
Hyponatremia
Hypoalbuminemia
ESLD
Gram-negative bacilli bacteremia
Ascites
anemia
COPD
Thrombocytopenia
Coagulopathy
Plan
Patient transferred to ICU: for hypotension
TYSON likely a function of prerenal stimulus in the setting of decompensated cirrhosis and hemodynamic instability
Creatinine improved to 1.8 nonoliguric with urine output of 900 cc
Maintain MAP greater than 65, albumin provided, will add as needed midodrine
Holding Aldactone and Lasix
Transfuse packed red blood cells as needed (status post 3 units of packed red blood cells provided)
Follow BMP
Will add fluid restriction if hyponatremia exacerbates
urine studies consistent with prerenal (anemia + liver decompensation)
Patient already underwent paracentesis earlier this week but may require again
IV albumin was provided by GI
-
-
Date of Service: December 16, 2024
CC / HPI / ROS
-
Chief Complaint:
TYSON
History of Present Illness:
creatinine down to 18
hemodyamically stable
h/h up after three units of blood
Review of Systems:
non oliguric
no fevers
Labs
-
Labs:
WBC 7.6 10^3/uL (4.8-10.8) 12/16/24 06:06
RBC 2.36 10^6/uL (4.70-6.10) L 12/16/24 06:06
Hgb 7.7 g/dL (13.0-18.0) L 12/16/24 06:06
Hct 22.1 % (39.0-52.0) L 12/16/24 06:06
Plt Count 54 10^3/uL (130-400) L 12/16/24 06:06
Sodium 134 mmol/L (135-145) L 12/16/24 06:06
Potassium 3.9 mmol/L (3.5-5.1) 12/16/24 06:06
Chloride 104 mmol/L (98-107) 12/16/24 06:06
Carbon Dioxide 21 mmol/L (22-30) L 12/16/24 06:06
BUN 57 mg/dl (9-20) H 12/16/24 06:06
Creatinine 1.8 mg/dL (0.7-1.3) H 12/16/24 06:06
eGFR 42.30 12/16/24 06:06
Glucose 146 mg/dl (70-99) H 12/16/24 06:06
Calcium 7.7 mg/dl (8.4-10.2) L 12/16/24 06:06
Albumin 2.8 g/dl (3.5-5.0) L 12/16/24 06:06
Physical Exam
-
Vital Signs:
Vital Signs
Temp Pulse Resp BP Pulse Ox
98.6 F 88 12 129/66 94
12/16/24 07:23 12/16/24 05:00 12/16/24 05:00 12/16/24 08:01 12/16/24 05:00
Cardiovascular:: Regular rate and rhythm
Respiratory:: Bilateral: CTA
Lung Excursion:: Normal
Abdomen:: Distended
Bowel Sounds:: Decreased
Extremity Edema:: None: Bilateral:
Stevens Catheter: No
--- NOTE | 2024-12-16 08:40 | W.PN.GI.CBS2 ---
Today's Communication / Plan
-
improved since yesterday see recs
Assessment / Plan
-
59 y.o male well-known to GI group with past medical history significant for decompensated cirrhosis (HCV vs EtOH) with intractable ascites with weekly para, HE, GI bleeding by recurrent hospitalizations with HE secondary to acute on chronic GI
bleeding 2/2 PHG gastric varix, hx of prior post-polypectomy bleed, prior transfer to [place] for Ultrasound guided gastric artery coiling procedure (09/2024), chronic HCV (s/p treatment with Epclusa s/p SVR), CVA, HTN, COPD, and chronic
thrombocytopenia. Last EGD 11/16/2024 with oozing portal hypertensive gastropathy treated with APC. Hx of recurrent SBP, ecoli ESBL blood/peritoneal fluid, intermediate to doxycycline and required IV ertapenem via midline as an outpatient until
12/06/24. Who comes back to the emergency room with fevers and abdominal pain, elevated lactic acid and paracentesis with WBC cells 10,000 consistent with recurrent SBP. Blood cultures x 2 positive for gram-negative bacilli.
Impression:
Decompensated cirrhosis
Recurrent SBP, finished outpatient treatment with ertapenem IV on 12/06/2024
--Paracentesis with WBC cells 10,000.
Gram-negative bacilli bacteremia
TYSON-> currently creatinine 2.3, baseline is usually 0.7
Hgb drop to 5.1
Plan:
-hgb stable after transfusion, CT negative for bleed
-Albumin today (12/16/24) will need 1 mg/kg dosing of albumin,
-Trend daily labs CBC, BMP, LFTs, PT/INR (bump in PT today will follow)
-Continue Xifaxan and lactulose
- continue antibiotics as per ID
-Continue pantoprazole
-Continue 2 g sodium diet
-Daily weights
Subjective
Subjective
Date of Service: December 16, 2024
Pt much more alert today, less abdominal pain
CT negative for abdominal bleed and hgb bumped with transfusion
Objective
Data Reviewed
Laboratory Data:
Laboratory Results
12/16/24 06:06
12/16/24 06:06
Laboratory Results
PT 25.1 Sec (11.4-14.6) H 12/15/24 06:47
INR 2.27 12/15/24 06:47
Total Bilirubin 3.7 mg/dl (0.2-1.3) H 12/16/24 06:06
AST 37 U/L (17-59) 12/16/24 06:06
ALT 15 U/L (0-50) 12/16/24 06:06
Alkaline Phosphatase 56 U/L (38-126) 12/16/24 06:06
Vital Signs and I&O:
Vital Signs
Temp Pulse Resp BP Pulse Ox
98.6 F 88 12 129/66 94
12/16/24 07:23 12/16/24 05:00 12/16/24 05:00 12/16/24 08:01 12/16/24 05:00
I&O
12/15/24 12/16/24 12/17/24
06:59 06:59 06:59
Intake Total 1800 / 1800 1300 / 1300
Output Total 300 / 300 800 / 800 100 / 100
Balance 1500 / 1500 500 / 500 -100 / -100
Physical Exam
Physical Exam
GI: Distended and Non Tender
Neuro: Non Focal (more alert)
[2024-12-16] MEDS: FLEXBUMIN 100 IV ×3 (10:13→13:03)
--- NOTE | 2024-12-16 10:31 | W.PN.ID1 ---
Date of Service
Date of Service: December 16, 2024
Today's Communication
Repeat blood cultures.
Assessment / Plan
Recurrent SBP and bacteremia with ESBL-Ecoli.
Decompensated end-stage cirrhosis with recurrent ascites, weekly paracentesis
shock: hemorrhagic vs septic or both, resolving
TYSON
Acute on chronic anemia. CT a/p no hematoma
-[facility] transplant service has also been following patient - not currently listed. Recent UDS positive for cocaine 10/12/24 may be a barrier to transplant.
- Ascitic fluid: 10,000 WBC, 88% polys; Cx ESBL-E. coli
- bacteremia (suspect ESBL-E. coli)
-Repeat blood cx's x 2
- Replaced Zosyn with meropenem (d2) for complicated ESBL- E. coli infection.
- Follow temps, wbc, vitals
- Contact precaution
-Poor prognosis
- 12/15 Dr. Martell had nahomy discussion with patient. He has failed multiple courses of antibiotic including Ertapenem x 10 d followed by doxycycline suppressive therapy; Ertapenem x 14days; more recently Ertapenem x 21 days completed 12/06/24,now with
relapse of SBP, bacteremia within 7 days. There is no oral abx option for suppressive therapy. Lifelong IV antibiotic is not an option. I recommended he reconsider hospice.
-12/16 Dr. Martell had another discussion with patient. Informed him again blood cx's and ascites cx + ESBL-E. coli. IV abx is only temporary measure, not intermediate card tender solution. He states he has virtual appt with transplant team with [facility] this Tuesday. I
informed him he is not a candidate for liver transplant due to recurrent infections. Patient may be starting to realize the direness of his health. Continue to discuss goals of care.
Chief Complaint
-: Bacteremia and Other (SBP)
Subjective / Review of Systems
Doesn't feel well.
Vital Signs / Physical Exam
Vital Signs
Vital Signs
Temp Pulse Resp BP Pulse Ox
98.6 F 94 14 109/63 92
12/16/24 07:23 12/16/24 09:00 12/16/24 09:00 12/16/24 09:00 12/16/24 09:00
Physical Exam
Constitutional: Comfortable and Chronically Ill
Eyes: Other (icteric)
Cardiovascular: Regular Rate and S1/S2
Gastrointestinal: Soft, Non Tender and Distended
Extremities: Edema
Skin: Jaundice
Neurological: AO x 3
Objective Data
Lab Data
Lab Results
12/16/24 06:06
12/16/24 06:06
PT 25.1 Sec (11.4-14.6) H 12/15/24 06:47
INR 2.27 12/15/24 06:47
Estimated Creat Clear 44 ml/min 12/16/24 06:06
Lactic Acid 5.5 mmol/L (0.7-2.0) H* 12/14/24 10:12
Total Bilirubin 3.7 mg/dl (0.2-1.3) H 12/16/24 06:06
GGT 15 U/L (15-73) 12/15/24 06:47
AST 37 U/L (17-59) 12/16/24 06:06
ALT 15 U/L (0-50) 12/16/24 06:06
Alkaline Phosphatase 56 U/L (38-126) 12/16/24 06:06
Most recent labs reviewed.
Micro Results:
12/14/24 07:57 Body Fluid Culture - Final
Peritoneal Fluid Escherichia coli - ESBL
Gram Stain - Final
12/14/24 06:25 Blood Culture - Final
Blood/Venous Escherichia coli - ESBL
Gram Stain - Final
12/14/24 06:25 Blood Culture - Final
Blood/Venous Escherichia coli - ESBL
Gram Stain - Final
12/15/24 CT a/p: No CT evidence for a hematoma in the abdomen or pelvis. Hepatic cirrhosis with secondary findings of portal hypertension including splenomegaly and moderate abdominopelvic ascites. Ascites measures simple fluid attenuation. Large
right inguinal hernia containing ascites.
Care Review
Plan reviewed with: Physician (Dr. Rodriguez)
[2024-12-16] MEDS: ZOFRAN 4 MG PO (11:49)
--- NOTE | 2024-12-16 12:08 | W.PN.INTV ---
Today's Communication / Plan
Recommendations
Continue with current care
Follow H&H
Antibiotics
Transfer out of the ICU
Sign off
Please call pulmonary if any respiratory issues arise.
Assessment
-
59-year-old man with end-stage liver disease, recurrent SBP's, readmitted to the hospital with ongoing abdominal pain. Underwent paracentesis consistent with recurrent SBP 12/14/2024. Also has blood cultures positive, negative bacilli. Prior SBP
was from E. coli. On 12/15/2024 hemoglobin was 5 and patient developed hypotension. Received transfusion. Underwent CT abdomen pelvis that was negative. Due to concern for worsening hypotension he was transferred to the critical care unit for
further care
Shock hypotension: Multifactorial
Likely acute on chronic blood loss anemia
Severe sepsis due to SBP and bacteremia.
Low albumin state due to advanced cirrhosis also contributing.
Right lower lobe infiltrate suspect atelectasis-cannot rule out pneumonia
Acute kidney injury-prerenal in tract abdominal pain due to SBP.
Conditions present prior admission:
Recurrent SBP
End-stage liver disease due to alcohol disorder
Chronic anemia
Pancytopenia
Hepatitis C virus
History of GI bleed
Hypertension
? COPD-on BREZTRI
History of a stroke
Gastric varices
Portal gastropathy
Former smoker
Assessment and plan:
Clinically improved.
Did not require vasopressors
Hemodynamics improved after transfusion.
Developed hypotension. Multifactorial sepsis/? Blood loss anemia-cannot rule out component of GI bleed/hypovolemic state from cirrhosis status post paracentesis.
CT abdomen pelvis without hemoperitoneum
-
Continue with current care:
Continue albumin per GI post paracentesis
Continue antibiotics per [id number]-copyenud bacteremia/SBP. Recurrent.
Blood culture positive for E. coli.Ceftriaxone resistant
-
No evidence for GI bleed. Hemoglobin improved after transfusion.
Status post 2 units of packed red blood cells 12/15/2024
Status post IV fluid resuscitation. No further IV fluids necessary.
Follow H&H
-
No vasopressors required.
-
Continue narcotics with IV hydromorphone-monitor respiratory status closely.
At risk for respiratory failure due to underlying COPD/abdominal distention from ascites
-
GI following the patient
Rifaximin
Lactulose
Protonix twice a day orally
Follow coagulopathy
Follow platelet counts transfuse as necessary
-
COPD: Not in exacerbation-patient has a wet cough.
Continue inhalers
Incentive spirometer
Oxygen to maintain pulse ox above 90%.
Nicotine patch
-
Aspiration precaution
-
Poor prognosis.
-
Patient will be transferred out of the ICU.
Critical care team will sign off
Please call pulmonary if any respiratory issues arise.
Subjective Dataa
Subjective Data
Date of Service:
Date of Service: December 16, 2024
Chief Complaint: Honey Blender Follow Up ( Hypotensive/anemia)
Subjective:
Continues to report some abdominal pain
Denies nausea vomiting
Feels better compared to yesterday
Review of Systems
Cardiopulmonary: Dyspnea (none at rest)
GI: Abdominal Pain (n) and Nausea (n)
Neuro: Headache (n)
Objective Data
Data Reviewed
Vital Signs / I&O / Oxygen:
Vital Signs
Temp Pulse Resp BP Pulse Ox
98.6 F 93 15 123/60 92
12/16/24 07:23 12/16/24 11:00 12/16/24 11:00 12/16/24 10:00 12/16/24 09:16
Intake and Output
12/15/24 12/16/24 12/17/24
06:59 06:59 06:59
Intake Total 1800 / 1800 1300 / 1300 240 / 240
Output Total 300 / 300 800 / 800 100 / 100
Balance 1500 / 1500 500 / 500 140 / 140
SaO2 92
Nasal Cannula flow liters per 2
minute
Physical Exam
General: Comfortable
HEENT: Normocephalic
Cardiovascular: S1-S2
Respiratory: Non-Labored Respirations
GI: Distended (Ascites) and Tender
Neurology: Awake and Alert
Skin: Warm
Labs/Micro/Reports
Lab Data
12/16/24 06:06
12/16/24 06:06
Microbiology
12/14/24 07:57 Peritoneal Fluid Body Fluid Culture - Final
Escherichia coli - ESBL
12/14/24 07:57 Peritoneal Fluid Gram Stain - Final
12/14/24 06:25 Blood/Venous Blood Culture - Final
Escherichia coli - ESBL
12/14/24 06:25 Blood/Venous Gram Stain - Final
12/14/24 06:25 Blood/Venous Blood Culture - Final
Escherichia coli - ESBL
12/14/24 06:25 Blood/Venous Gram Stain - Final
[2024-12-16] MEDS: TUMS EX (EXTRA STRENGTH) CHEWABLE TABLET 300 MG PO (14:15)
[2024-12-17] VITALS (7 sets, daily range): BP systolic 112–129; BP diastolic 50–69; BMI 24.3
[2024-12-17] MEDS: DILAUDID 0.5 MG IV ×6 (02:34→21:16)
[2024-12-17] MEDS: SYMBICORT 160/4.5 MCG INHALER 2 PUFF INH (07:49)
[2024-12-17] MEDS: SPIRIVA RESPIMAT 2.5 MCG 2 PUFF INH (07:49)
[2024-12-17] MEDS: MERREM 500 MG IV ×3 (08:02→17:45)
[2024-12-17] MEDS: ProAmatine 2.5 MG PO ×3 (08:02→17:45)
[2024-12-17] MEDS: ZINC 50 MG PO (08:02)
[2024-12-17] MEDS: PROTONIX 40 MG PO ×2 (08:02→21:17)
[2024-12-17] MEDS: XIFAXAN 550 MG PO ×2 (08:02→21:17)
[2024-12-17] MEDS: DUPHALAC/CHRONULAC 20 GRAMS PO ×3 (08:02→21:17)
[2024-12-17] MEDS: MAG-TAB SR 84 MG PO ×2 (08:02→21:17)
[2024-12-17] MEDS: FOLVITE 1 MG PO (08:02)
[2024-12-17] MEDS: VITAMIN B1 100 MG PO (08:02)
[2024-12-17] MEDS: STERILE WATER FOR INJECTION 10 ML IV ×3 (08:02→17:45)
[2024-12-17] MEDS: DESENEX/MITRAZOL/ZEASORB 1 APPLIC TOPICAL ×2 (08:03→21:18)
[2024-12-17] MEDS: PREPARATION H OINTMENT 1 APPLIC RECTAL ×2 (08:03→21:32)
--- NOTE | 2024-12-17 08:13 | VNURNOTE ---
Chart reviewed. Patient is current with [facility] nursing. Will continue to follow hospital course and DC plans.
[2024-12-17 08:58] LABS: % Basophils 0.2 % (0-2); % Eosinophils 1.7 % (0-6); % Immature Granulocytes 1.2 % (0-0.5); % Lymphocytes 9.1 % (20.5-51.1); % Monocytes 9.3 % (1.7-9.3); % Neutrophils 78.5 % (42.2-75.2); Absolute Eosinophils 0.1 10^3/uL (0-0.7); Absolute Immature Granulocytes 0.1 10^3/uL (0-0.05); Absolute Lymphocytes 0.6 10^3/uL (1.2-3.4); Absolute Monocytes 0.6 10^3/uL (0.1-0.6); Absolute Neutrophils 5.2 10^3/uL (1.4-6.5); Hematocrit 20.4 % (39.0-52.0); Hemoglobin 6.8 g/dL (13.0-18.0); Mean Corp Hgb Conc. 33.3 g/dL (33.0-37.0); Mean Corpuscular Hgb 31.8 pg (27.0-31.0); Mean Corpuscular Volume 95.3 fL (80.0-94.0); Nucleated Red Blood Cells % 0 % (-); Platelet Count 48 10^3/uL (130-400); Red Blood Cell Count 2.14 10^6/uL (4.70-6.10); Red Cell Dist. Width 18.2 % (11.5-14.5); White Blood Cell Count 6.6 10^3/uL (4.8-10.8)
[2024-12-17 09:05] LABS: ALT (SGPT) 14 U/L (0-50); AST (SGOT) 32 U/L (17-59); Alkaline Phosphatase 63 U/L (38-126); Blood Urea Nitrogen 49 mg/dl (9-20); Calcium 7.9 mg/dl (8.4-10.2); Carbon Dioxide 26 mmol/L (22-30); Chloride 100 mmol/L (98-107); Estimated Creatinine Clearance 62 ml/min; Glucose 103 mg/dl (70-99); Potassium 3.5 mmol/L (3.5-5.1); Sodium 132 mmol/L (135-145); Total Bilirubin 3.8 mg/dl (0.2-1.3); Total Protein 4.7 g/dl (6.3-8.2); eGFR > 60.00
--- NOTE | 2024-12-17 09:56 | W.PN.GI.CBS2 ---
Addendum entered and electronically signed by Presley Gaviria MD 12/17/24 11:50:
I saw and examined the patient.
The SOFTWARE PRODUCT SPECIALIST or PA's note was reviewed and I agree with the note.
Comment:
Pt with less abdominal pain, no true complaints
abd: ascites
oriented
impression
ESLD
ascites with SBP
splenomegaly
anemia s/p CT of abd which was negative
plan:
continue antibiotics
consider retap
renal following for TYSON
hgb low likely multifactorial, no signs of bleeding and CT over the weekend negative
continue xifaxin and lactulose
Original Note:
Today's Communication / Plan
-
as per plan
Assessment / Plan
-
59 y.o male well-known to GI group with past medical history significant for decompensated cirrhosis (HCV vs EtOH) with intractable ascites with weekly para, HE, GI bleeding by recurrent hospitalizations with HE secondary to acute on chronic GI
bleeding 2/2 PHG gastric varix, hx of prior post-polypectomy bleed, prior transfer to [place] for Ultrasound guided gastric artery coiling procedure (09/2024), chronic HCV (s/p treatment with Epclusa s/p SVR), CVA, HTN, COPD, and chronic
thrombocytopenia. Last EGD 11/16/2024 with oozing portal hypertensive gastropathy treated with APC. Hx of recurrent SBP, ecoli ESBL blood/peritoneal fluid, intermediate to doxycycline and required IV ertapenem via midline as an outpatient until
12/06/24. Who comes back to the emergency room with fevers and abdominal pain, elevated lactic acid and paracentesis with WBC cells 10,000 consistent with recurrent SBP. Blood cultures x 2 positive for gram-negative bacilli.
Impression:
Decompensated cirrhosis
Recurrent SBP, finished outpatient treatment with ertapenem IV on 12/06/2024
--Paracentesis with WBC cells 10,000.
--ascites fluid ESBL/E Coli
--completed Albumin day 1 and 3
ESBL/E Coli bacteremia-recurrent, continues on Meropenem
-repeat blood cultures pending.
Hypotension-> improved , now on Midodrine 2.5 mg TID
TYSON-> currently creatinine 1.3, baseline is usually 0.7
Hgb drop to 5.1 (12/15/24)--> transfused 3 units PRBC Hgb 6.8. No signs of bleeding.
Plan:
-hgb stable after transfusion, CT negative for bleed
-would like to repeat paracentesis (mostly patient comfort) discussed with Dr. Gilliland. Would also like to see if Renal ok as well. If so would like to cap amount at 3-4 liters and add albumin likely after as well. IM to eval patient and discuss
further.
-Trend daily labs CBC, BMP, LFTs, PT/INR (bump in PT, will follow)
-Continue Xifaxan and lactulose
-Continue antibiotics as per ID
-Await repeat blood cultures
-Continue pantoprazole
-Continue 2 g sodium diet
-Daily weights
Subjective
Subjective
Date of Service: December 17, 2024
Patient states that he has abdominal discomfort from ascites distention. Blood pressure much improved. Continues on Midodrine 2.5 md TID. Had brown BM today. Continues on Lactulose and Xifaxan. Hgb is 6.8 this am. He denies any signs of bleeding.
Continues on Pantoprazole BID. Appetite is fair at best. Renal fxn is improving and BUN is 49 and creat 1.3. repeat blood cultures from 12/16/24 are pending. Continues on Meropenem, remains afebrile. Had second dose of albumin for SBP yesterday.
Objective
Data Reviewed
Laboratory Data:
Laboratory Results
12/17/24 08:17
12/17/24 08:17
Laboratory Results
PT 25.1 Sec (11.4-14.6) H 12/15/24 06:47
INR 2.27 12/15/24 06:47
Total Bilirubin 3.8 mg/dl (0.2-1.3) H 12/17/24 08:17
AST 32 U/L (17-59) 12/17/24 08:17
ALT 14 U/L (0-50) 12/17/24 08:17
Alkaline Phosphatase 63 U/L (38-126) 12/17/24 08:17
Vital Signs and I&O:
Vital Signs
Temp Pulse Resp BP Pulse Ox
97.6 F 104 18 121/58 95
12/17/24 07:42 12/17/24 07:53 12/17/24 07:53 12/17/24 07:42 12/17/24 07:53
I&O
12/16/24 12/17/24 12/18/24
06:59 06:59 06:59
Intake Total 1300 / 1300 1200 / 1200
Output Total 800 / 800 500 / 500
Balance 500 / 500 700 / 700
Physical Exam
Physical Exam
HEENT: Other (mild sclera icterus)
Cardiology: Normal Sinus Rhythm
Pulmonary: Clear
GI: Soft, Distended, Tender (mild diffuse), Fluid Wave and Normal Bowel Sounds
Extremities: No Edema
Neuro: Non Focal and Other (no asterixis)
--- NOTE | 2024-12-17 11:29 | W.PN.NEPH.PH ---
Today's Communication / Plan
-
Continue midodrine
Assessment/Plan
-
Assessment
TYSON
Hyponatremia
Hypoalbuminemia
ESLD
Gram-negative bacilli bacteremia
Ascites
anemia
COPD
Thrombocytopenia
Coagulopathy
Plan
Patient transferred to ICU: for hypotension
TYSON likely a function of prerenal stimulus in the setting of decompensated cirrhosis and hemodynamic instability
Creatinine improved to 1.8 nonoliguric with urine output of 900 cc
Maintain MAP greater than 65, albumin provided, continue midodrine
Holding Aldactone and Lasix
Transfuse packed red blood cells as needed (status post 3 units of packed red blood cells provided)
Follow BMP
urine studies consistent with prerenal (anemia + liver decompensation)
Renal function with significant improvement creatinine 1.3.
-
-
Date of Service: December 17, 2024
CC / HPI / ROS
-
Chief Complaint:
TYSON
History of Present Illness:
creatinine down
hemodyamically stable
Trend hemoglobin
Review of Systems:
non oliguric
no fevers
Labs
-
Labs:
WBC 6.6 10^3/uL (4.8-10.8) 12/17/24 08:17
RBC 2.14 10^6/uL (4.70-6.10) L 12/17/24 08:17
Hgb 6.8 g/dL (13.0-18.0) L* 12/17/24 08:17
Hct 20.4 % (39.0-52.0) L* 12/17/24 08:17
Plt Count 48 10^3/uL (130-400) L 12/17/24 08:17
Sodium 132 mmol/L (135-145) L 12/17/24 08:17
Potassium 3.5 mmol/L (3.5-5.1) 12/17/24 08:17
Chloride 100 mmol/L (98-107) 12/17/24 08:17
Carbon Dioxide 26 mmol/L (22-30) 12/17/24 08:17
BUN 49 mg/dl (9-20) H 12/17/24 08:17
Creatinine 1.3 mg/dL (0.7-1.3) 12/17/24 08:17
eGFR > 60.00 12/17/24 08:17
Glucose 103 mg/dl (70-99) H 12/17/24 08:17
Calcium 7.9 mg/dl (8.4-10.2) L 12/17/24 08:17
Albumin 3.0 g/dl (3.5-5.0) L 12/17/24 08:17
Physical Exam
-
Vital Signs:
Vital Signs
Temp Pulse Resp BP Pulse Ox
97.6 F 104 18 129/64 95
12/17/24 07:42 12/17/24 07:53 12/17/24 07:53 12/17/24 11:11 12/17/24 07:53
Cardiovascular:: Regular rate and rhythm
Respiratory:: Bilateral: CTA
Lung Excursion:: Normal
Abdomen:: Distended
Bowel Sounds:: Decreased
Extremity Edema:: None: Bilateral:
Stevens Catheter: No
--- NOTE | 2024-12-17 14:08 | W.PN.ID1 ---
Date of Service
Date of Service: December 17, 2024
Today's Communication
Continue antibiotics.
Assessment / Plan
Recurrent SBP 2* ESBL E. coli.
Bacteremia with ESBL E. coli.
Decompensated end-stage cirrhosis with recurrent ascites, weekly paracentesis
shock: hemorrhagic vs septic or both, resolving
TYSON
Acute on chronic anemia. CT a/p no hematoma
-[facility] transplant service has also been following patient - not currently listed. Recent UDS positive for cocaine 10/12/24 may be a barrier to transplant.
- Ascitic fluid: 10,000 WBC, 88% polys; Cx ESBL-E. coli
- bacteremia (ESBL-E. coli)
-Repeat blood cx's x 2
- Replaced Zosyn with meropenem (d2) for complicated ESBL- E. coli infection.
- Follow temps, wbc, vitals
- Contact precaution
-Poor prognosis
- 12/15 Dr. Martell had nahomy discussion with patient. He has failed multiple courses of antibiotic including Ertapenem x 10 d followed by doxycycline suppressive therapy; Ertapenem x 14days; more recently Ertapenem x 21 days completed 12/06/24,now with
relapse of SBP, bacteremia within 7 days. There is no oral abx option for suppressive therapy. Lifelong IV antibiotic is not an option. I recommended he reconsider hospice.
-12/16 Dr. Martell had another discussion with patient. Informed him again blood cx's and ascites cx + ESBL-E. coli. IV abx is only temporary measure, not long-term solution. He states he has virtual appt with transplant team with [facility] this Tuesday.
Informed him that he is not a candidate for liver transplant due to recurrent infections. Patient may be starting to realize the direness of his health. Continue to discuss goals of care.
Chief Complaint
-: Bacteremia and Other (SBP)
Subjective / Review of Systems
Review of Systems: No Fever and No Chills
Vital Signs / Physical Exam
Vital Signs
Vital Signs
Temp Pulse Resp BP Pulse Ox
97.6 F 94 18 123/60 95
12/17/24 07:42 12/17/24 12:42 12/17/24 07:53 12/17/24 12:42 12/17/24 07:53
Physical Exam
Constitutional: Comfortable, Chronically Ill and Non-toxic
Eyes: Other (Scar icterus noted.)
Cardiovascular: Regular Rate and S1/S2; Negative S3/S4
Gastrointestinal: Soft, Non Tender, Distended and Normal Bowel Sounds
Extremities: Edema
Skin: Jaundice
Neurological: AO x 3
Objective Data
Lab Data
Lab Results
12/17/24 08:17
12/17/24 08:17
PT 25.1 Sec (11.4-14.6) H 12/15/24 06:47
INR 2.27 12/15/24 06:47
Estimated Creat Clear 62 ml/min 12/17/24 08:17
Lactic Acid 5.5 mmol/L (0.7-2.0) H* 12/14/24 10:12
Total Bilirubin 3.8 mg/dl (0.2-1.3) H 12/17/24 08:17
GGT 15 U/L (15-73) 12/15/24 06:47
AST 32 U/L (17-59) 12/17/24 08:17
ALT 14 U/L (0-50) 12/17/24 08:17
Alkaline Phosphatase 63 U/L (38-126) 12/17/24 08:17
Most recent labs reviewed.
Micro Results:
12/16/24 06:06 Blood Culture - Preliminary
Blood/Venous No Growth in 24 hours- Final report to follow
12/16/24 11:19 Blood Culture - Preliminary
Blood/Venous No Growth in 24 hours- Final report to follow
12/16/24 11:00 Blood Culture - Preliminary
Blood/Venous No Growth in 24 hours- Final report to follow
12/14/24 07:57 Body Fluid Culture - Final
Peritoneal Fluid Escherichia coli - ESBL
Gram Stain - Final
12/14/24 06:25 Blood Culture - Final
Blood/Venous Escherichia coli - ESBL
Gram Stain - Final
12/14/24 06:25 Blood Culture - Final
Blood/Venous Escherichia coli - ESBL
Gram Stain - Final
Imaging:
12/15/24 CT a/p: No CT evidence for a hematoma in the abdomen or pelvis. Hepatic cirrhosis with secondary findings of portal hypertension including splenomegaly and moderate abdominopelvic ascites. Ascites measures simple fluid attenuation. Large
right inguinal hernia containing ascites.
Care Review
Plan reviewed with: Physician (Hospitalist)
--- NOTE | 2024-12-17 16:15 | W.PN.HOSP.TC ---
Today's Communication/Plan
-
Continue antibiotics, currently on meropenem.
Transfuse 1 unit of packed red blood cell.
Plan is for repeat paracentesis with albumin diagnostic and therapeutic on 12/18
Monitor creatinine closely
Continue midodrine
Assessment / Plan
Assessment / Plan
Sepsis due to recurrent SBP -sepsis improving. Lactic acidosis from sepsis noted. Responding to antibiotics. Currently on IV meropenem per ID. Blood and ascitic fluid cultures show gram-negative bacilli, speciation pending.
Both September 2024 and November 2024 blood cultures and fluid cultures showed ESBL E. coli.
At this point he is out of options and infectious disease is recommending hospice. No good oral suppressive antibiotic options available. Patient not interested in hospice currently.
Patient is currently getting evaluated by [facility] for liver transplant. Has an virtual appointment with them this Tuesday the .
TYSON -now improving, creatinine 1.8. Blood pressure improved on midodrine. Nephrology following.
Diuretics on hold.
Please check daily weights.
Acute on chronic anemia -hemoglobin improved to 7.7 today. Transfused 3 units of blood. No evidence of bleeding on CT abdomen. No evidence of hemolysis. LDH is normal. Hemodilution from IV fluids/IV albumin possible.
Decompensated cirrhosis -presentation with recurrent ascites and SBP. Last paracentesis was December 14, 4 L removed in the emergency room. IV albumin per GI service.
Intractable abdominal pain -likely due to acute peritonitis, SBP. Getting IV Dilaudid as needed. Abdominal pain overall improving.
ESLD
Hyponatremia -sodium 134 this morning.
Pancytopenia -WBC count currently normal, platelet count 54,000. Etiology of pancytopenia due to ESLD.
History of GI bleed
COPD without exacerbation
Gastric varices
Portal hypertensive gastropathy
Full code
Prognosis unfortunately remains poor.
Anticipated Discharge: > 48 hours
Subjective/Interval History
-
Date of Service: December 17, 2024
Objective Data
-
Labs:
Laboratory Results
12/17/24
08:17
WBC 6.6
Hgb 6.8 L*
Hct 20.4 L*
Plt Count 48 L
Sodium 132 L
Potassium 3.5
Chloride 100
Carbon Dioxide 26
BUN 49 H
Creatinine 1.3
Glucose 103 H
Calcium 7.9 L
Total Bilirubin 3.8 H
AST 32
ALT 14
Alkaline Phosphatase 63
Vital Signs:
Vital Signs
Temp Pulse Resp BP Pulse Ox
98.8 F 97 16 123/69 95
12/17/24 15:59 12/17/24 15:59 12/17/24 15:59 12/17/24 15:59 12/17/24 15:59
I&O
12/16/24 12/17/24 12/18/24
06:59 06:59 06:59
Intake Total 1300 / 1300 1200 / 1200 0 / 0
Output Total 800 / 800 500 / 500
Balance 500 / 500 700 / 700 0 / 0
Physical Exam
-
General: Well Developed and No Apparent Distress
HEENT: Normocephalic, Atraumatic and Moist Mucous Membranes
Respiratory: Clear to Auscultation
Cardiac: Regular Rhythm and S1/S2; Negative Murmur, Rub or Gallop
GI: Soft, Normal Bowel Sounds, Tender and Distended; Negative Organomegaly
Rectal: Deferred by Provider
Musculoskeletal: No Clubbing, No Cyanosis and No Edema
Skin: Negative Rash
Neuro: Awake, Alert, Oriented, AO x 3 and Nonfocal/Grossly Intact
--- NOTE | 2024-12-17 16:35 | CM ---
Patient seen at bedside.
IA Completed
Lives with in 2 story home, 1st floor set up
PLOF: Independent
DME:Cane, shower chair, grab bars
Current with [facility]-Referral added in [facility]
PCP: Drake Goss
Pharmacy: [facility]
PLAN: [facility]
[2024-12-17] MEDS: SYMBICORT 160/4.5 MCG INHALER INH (20:50)
[2024-12-18] MEDS: DILAUDID 0.5 MG IV ×7 (00:30→22:01)
[2024-12-18] MEDS: STERILE WATER FOR INJECTION 10 ML IV ×5 (00:31→23:35)
[2024-12-18] MEDS: MERREM 500 MG IV ×5 (00:31→23:27)
[2024-12-18 06:00] VITALS: BMI 24.3
[2024-12-18 07:20] VITALS: BP 124/60
[2024-12-18] MEDS: SYMBICORT 160/4.5 MCG INHALER 2 PUFF INH (07:44)
[2024-12-18] MEDS: SPIRIVA RESPIMAT 2.5 MCG 2 PUFF INH (07:44)
[2024-12-18 08:04] LABS: % Basophils 0.2 % (0-2); % Eosinophils 1.4 % (0-6); % Immature Granulocytes 1.5 % (0-0.5); % Lymphocytes 11.4 % (20.5-51.1); % Monocytes 10.9 % (1.7-9.3); % Neutrophils 74.6 % (42.2-75.2); Absolute Eosinophils 0.1 10^3/uL (0-0.7); Absolute Immature Granulocytes 0.1 10^3/uL (0-0.05); Absolute Lymphocytes 0.8 10^3/uL (1.2-3.4); Absolute Monocytes 0.7 10^3/uL (0.1-0.6); Absolute Neutrophils 4.9 10^3/uL (1.4-6.5); Hematocrit 22.9 % (39.0-52.0); Hemoglobin 7.8 g/dL (13.0-18.0); Mean Corp Hgb Conc. 34.1 g/dL (33.0-37.0); Mean Corpuscular Hgb 32.1 pg (27.0-31.0); Mean Corpuscular Volume 94.2 fL (80.0-94.0); Mean Platelet Volume 11.4 fL (7.4-10.4); Nucleated Red Blood Cells % 0 % (-); Platelet Count 57 10^3/uL (130-400); Red Blood Cell Count 2.43 10^6/uL (4.70-6.10); Red Cell Dist. Width 17.3 % (11.5-14.5); White Blood Cell Count 6.6 10^3/uL (4.8-10.8)
[2024-12-18 08:06] LABS: INR 1.63; PT 19.5 Sec (11.4-14.6)
[2024-12-18 08:23] LABS: ALT (SGPT) 15 U/L (0-50); AST (SGOT) 33 U/L (17-59); Albumin 3.3 g/dl (3.5-5.0); Alkaline Phosphatase 67 U/L (38-126); Blood Urea Nitrogen 43 mg/dl (9-20); Chloride 99 mmol/L (98-107); Direct Bilirubin 1.3 mg/dl (0.0-0.4); Estimated Creatinine Clearance 80 ml/min; Potassium 3.4 mmol/L (3.5-5.1); Sodium 132 mmol/L (135-145); Total Bilirubin 4.7 mg/dl (0.2-1.3); Total Protein 4.9 g/dl (6.3-8.2); eGFR > 60.00
[2024-12-18] MEDS: ProAmatine 2.5 MG PO ×3 (08:28→18:07)
[2024-12-18] MEDS: VITAMIN B1 100 MG PO (08:28)
[2024-12-18] MEDS: MAG-TAB SR 84 MG PO ×2 (08:29→21:03)
[2024-12-18] MEDS: XIFAXAN 550 MG PO ×2 (08:29→21:03)
[2024-12-18] MEDS: DUPHALAC/CHRONULAC 20 GRAMS PO ×3 (08:29→22:01)
[2024-12-18] MEDS: FOLVITE 1 MG PO (08:29)
[2024-12-18] MEDS: PROTONIX 40 MG PO ×2 (08:29→21:03)
[2024-12-18] MEDS: ZINC 50 MG PO (08:29)
[2024-12-18] MEDS: DESENEX/MITRAZOL/ZEASORB 1 APPLIC TOPICAL ×2 (08:32→21:03)
[2024-12-18] MEDS: PREPARATION H OINTMENT 1 APPLIC RECTAL ×2 (08:33→21:05)
[2024-12-18 08:39] LABS: Carbon Dioxide 24 mmol/L (22-30); Glucose 108 mg/dl (70-99)
[2024-12-18] MEDS: KCL 40 MEQ PO (10:33)
[2024-12-18] MEDS: FLEXBUMIN 100 IV ×2 (10:33→18:05)
--- NOTE | 2024-12-18 10:56 | W.PN.GI.CBS2 ---
Addendum entered and electronically signed by Olena Floyd MD 12/18/24 14:24:
I saw and examined the patient.
The [employer]UE[employer] RE[employer]ODUCER or PA's note was reviewed and I agree with the note.
Comment: Patient without any complaints at this time. Tolerating 2 g sodium diet, had brown stool this morning. No abdominal pain, nausea or vomiting. No fevers or chills.
MELD 3.0 on 12/18/24-20
Recurrent episodes of SBP with ESBL inspite of Rx with IV Ab-Ertapenem. Currently on Meropenem
Patient undergoing pretransplant evaluation at [facility] with Dr. Dan. Had a conversation today with Dr. Dan regarding persistent SBP with ESBL, he is going to discuss with [facility] infectious disease team and get back to
us. In the interim, he did suggest continuing the ertapenem for 4 to 6 weeks. Patient has appointment with Dr. Dan 01/03/2025.
Para 12/14/24 showing ESBL. with wbc of 10,000, repeat para today with iv Albumin infusion.
h/o GIB on EGD 11/16/24 with oozing from portal gastropathy s/p APC
Continue Protonix 40mg po daily
2 gm Na diet.
Continue lactulose and Xifaxan,
Will follow
TYSON resolved. Per nephrology ,continue Midodrine and keep MAP >65
Addendum entered and electronically signed by MARCIA Valdez 12/18/24 12:40:
MELD 20 based on updated labs
Original Note:
Today's Communication / Plan
-
Pt feeling better
concern still with recurrent SBP with ESBL for 4th admission
cont abx per ID
Dr. Floyd and I reviewed with Dr. Dan today
plan for ID eval at [facility] to seen if any other intervention with recurrent infection
I spoke with nurse navigator Wanda Muniz -- [phone] who assist pt with visits
hbg stable today 7.8 s/p transfusions
still remains on IV albumin q 8 hours
-Continue Xifaxan and lactulose
-Continue pantoprazole
-Continue 2 g sodium diet
-Daily weights
- updated
Assessment / Plan
-
59 y.o male well-known to GI group with past medical history significant for decompensated cirrhosis (HCV vs EtOH) with intractable ascites with weekly para, HE, GI bleeding by recurrent hospitalizations with HE secondary to acute on chronic GI
bleeding 2/2 PHG gastric varix, hx of prior post-polypectomy bleed, prior transfer to [facility] for Ultrasound guided gastric artery coiling procedure (09/2024), chronic HCV (s/p treatment with Epclusa s/p SVR), CVA, HTN, COPD, and chronic
thrombocytopenia. Last EGD 11/16/2024 with oozing portal hypertensive gastropathy treated with APC. Hx of recurrent SBP, ecoli ESBL blood/peritoneal fluid, intermediate to doxycycline and required IV ertapenem via midline as an outpatient until
12/06/24. Who comes back to the emergency room with fevers and abdominal pain, elevated lactic acid and paracentesis with WBC cells 10,000 consistent with recurrent SBP. Blood cultures x 2 positive for gram-negative bacilli. Per review of ID noted
He has failed multiple courses of antibiotic including Ertapenem x 10 d followed by doxycycline suppressive therapy; Ertapenem x 14days; more recently Ertapenem x 21 days completed 12/06/24,now with relapse of SBP, bacteremia within 7 days. There
is no oral abx option for suppressive therapy. Lifelong IV antibiotic is not an option.
Impression:
Decompensated cirrhosis
Recurrent SBP, finished 3 course of IV abx 10 days then Doxy, 14 days and last 21 days with ertapenem IV until 12/06/2024 now restarted 12/15
--Paracentesis with WBC cells 10,000.
--ascites fluid ESBL/E Coli
--completed Albumin day 1 and 3
ESBL/E Coli bacteremia-recurrent, continues on Meropenem
-repeat blood cultures neg for 48 hours
Hypotension-> improved , now on Midodrine 2.5 mg TID
TYSON-> currently creatinine 1.3, baseline is usually 0.7
Hgb drop to 5.1 (12/15/24)--> transfused 4 units PRBC Hgb 7.8. No signs of bleeding.
Plan:
Pt feeling better
concern still with recurrent SBP with ESBL for 4th admission
cont abx per ID
Dr. Floyd and I reviewed with Dr. Dan today
plan for ID eval at [facility] to seen if any other intervention with recurrent infection
I spoke with nurse navigator Wanda Muniz -- [phone] who assist pt with visits
hbg stable today 7.8 s/p transfusions
still remains on IV albumin q 8 hours
-Continue Xifaxan and lactulose
-Continue pantoprazole
-Continue 2 g sodium diet
-Daily weights
- updated
Subjective
Subjective
Date of Service: December 18, 2024
12/18/24 brown loose stools on 2 gram na diet feeling better less abdominal pain
Objective
Data Reviewed
Laboratory Data:
Laboratory Results
12/18/24 06:34
12/18/24 06:34
Laboratory Results
PT 19.5 Sec (11.4-14.6) H 12/18/24 06:34
INR 1.63 12/18/24 06:34
Total Bilirubin 4.7 mg/dl (0.2-1.3) H 12/18/24 06:34
AST 33 U/L (17-59) 12/18/24 06:34
ALT 15 U/L (0-50) 12/18/24 06:34
Alkaline Phosphatase 67 U/L (38-126) 12/18/24 06:34
Vital Signs and I&O:
Vital Signs
Temp Pulse Resp BP Pulse Ox
98.3 F 95 18 124/60 98
12/18/24 07:20 12/18/24 08:28 12/18/24 07:47 12/18/24 08:28 12/18/24 07:47
I&O
12/17/24 12/18/24 12/19/24
06:59 06:59 06:59
Intake Total 1200 / 1200 1150 / 1150
Output Total 500 / 500 100 / 100
Balance 700 / 700 1050 / 1050
Physical Exam
Physical Exam
HEENT: Anicteric and Moist mucous membranes
Cardiology: Normal Sinus Rhythm
Pulmonary: Clear
GI: Soft, Distended and Tender (minimal much improved from admission)
Extremities: Edema (minimal)
Neuro: Non Focal
[2024-12-18 11:23] VITALS: BP 137/68; PULSE 96
[2024-12-18 13:15] VITALS: BP 148/89; BP_SYST 81
--- NOTE | 2024-12-18 13:31 | W.PN.NEPH.PH ---
Today's Communication / Plan
-
Albumin and paracentesis
Assessment/Plan
-
Assessment
TYSON
Hyponatremia
Hypoalbuminemia
ESLD
Gram-negative bacilli bacteremia
Ascites
anemia
COPD
Thrombocytopenia
Coagulopathy
Plan
Patient transferred to ICU: for hypotension
TYSON likely a function of prerenal stimulus in the setting of decompensated cirrhosis and hemodynamic instability
Creatinine improved to 1.8 nonoliguric with urine output of 900 cc
Maintain MAP greater than 65, albumin provided, continue midodrine
Holding Aldactone and Lasix
Transfuse packed red blood cells as needed (status post 3 units of packed red blood cells provided)
Follow BMP
urine studies consistent with prerenal (anemia + liver decompensation)
Renal function with significant improvement creatinine 1
Paracentesis ordered for today will give albumin as well.
-
-
Date of Service: December 18, 2024
CC / HPI / ROS
-
Chief Complaint:
TYSON
History of Present Illness:
creatinine down
hemodyamically stable
Trend hemoglobin
Review of Systems:
non oliguric
no fevers
Labs
-
Labs:
WBC 6.6 10^3/uL (4.8-10.8) 12/18/24 06:34
RBC 2.43 10^6/uL (4.70-6.10) L 12/18/24 06:34
Hgb 7.8 g/dL (13.0-18.0) L 12/18/24 06:34
Hct 22.9 % (39.0-52.0) L 12/18/24 06:34
Plt Count 57 10^3/uL (130-400) L 12/18/24 06:34
Sodium 132 mmol/L (135-145) L 12/18/24 06:34
Potassium 3.4 mmol/L (3.5-5.1) L 12/18/24 06:34
Chloride 99 mmol/L (98-107) 12/18/24 06:34
Carbon Dioxide 24 mmol/L (22-30) 12/18/24 06:34
BUN 43 mg/dl (9-20) H 12/18/24 06:34
Creatinine 1.0 mg/dL (0.7-1.3) 12/18/24 06:34
eGFR > 60.00 12/18/24 06:34
Glucose 108 mg/dl (70-99) H 12/18/24 06:34
Calcium 8.0 mg/dl (8.4-10.2) L 12/18/24 06:34
Albumin 3.3 g/dl (3.5-5.0) L 12/18/24 06:34
Physical Exam
-
Vital Signs:
Vital Signs
Temp Pulse Resp BP Pulse Ox
98.3 F 95 18 124/60 98
12/18/24 07:20 12/18/24 08:28 12/18/24 07:47 12/18/24 08:28 12/18/24 07:47
Cardiovascular:: Regular rate and rhythm
Respiratory:: Bilateral: CTA
Lung Excursion:: Normal
Abdomen:: Distended
Bowel Sounds:: Decreased
Extremity Edema:: None: Bilateral:
Stevens Catheter: No
--- NOTE | 2024-12-18 14:13 | CM ---
Patient chart reviewed.
Paracentesis today
PT eval no needs
Current with [facility]
PLAN: Home with [facility] when medically stable
[2024-12-18 14:58] VITALS: BP 127/65
--- NOTE | 2024-12-18 15:13 | W.PN.HOSP.TC ---
Addendum entered and electronically signed by Bishop Gilliland MD 12/19/24 15:26:
Correction albumin should replace Augmentin (typo)
Original Note:
Today's Communication/Plan
-
Paracentesis
Augmentin
IV antibiotics
Midodrine.
Assessment / Plan
Assessment / Plan
Sepsis due to recurrent SBP -sepsis improving. Lactic acidosis from sepsis noted. Responding to antibiotics. Currently on IV meropenem per ID. Blood and ascitic fluid cultures show gram-negative bacilli, speciation pending.
Both September 2024 and November 2024 blood cultures and fluid cultures showed ESBL E. coli.
At this point he is out of options and infectious disease is recommending hospice. No good oral suppressive antibiotic options available. Patient not interested in hospice currently.
Patient is currently getting evaluated by [facility] for liver transplant. Has an virtual appointment with them this Tuesday the .
Consulted [facility] to repeat diagnostic and therapeutic paracentesis on 12/18
Albumin
TYSON -now improving, creatinine 2.3�1.0. Blood pressure improved on midodrine. Nephrology following.
Diuretics on hold.
Please check daily weights.
Acute on chronic anemia -hemoglobin improved to 7.7 today. Transfused 3 units of blood. No evidence of bleeding on CT abdomen. No evidence of hemolysis. LDH is normal. Hemodilution from IV fluids/IV albumin possible.
Decompensated cirrhosis -presentation with recurrent ascites and SBP. Last paracentesis was December 14, 4 L removed in the emergency room. IV albumin per GI service.
Intractable abdominal pain -likely due to acute peritonitis, SBP. Getting IV Dilaudid as needed. Abdominal pain overall improving.
ESLD
Hyponatremia -sodium 134 this morning.
Pancytopenia -WBC count currently normal, platelet count 54,000. Etiology of pancytopenia due to ESLD.
History of GI bleed
COPD without exacerbation
Gastric varices
Portal hypertensive gastropathy
Full code
Prognosis unfortunately remains poor.
Anticipated Discharge: > 48 hours
Subjective/Interval History
-
Date of Service: December 18, 2024
Objective Data
-
Labs:
Laboratory Results
12/18/24
06:34
WBC 6.6
Hgb 7.8 L
Hct 22.9 L
Plt Count 57 L
PT 19.5 H
INR 1.63
Sodium 132 L
Potassium 3.4 L
Chloride 99
Carbon Dioxide 24
BUN 43 H
Creatinine 1.0
Glucose 108 H
Calcium 8.0 L
Total Bilirubin 4.7 H
AST 33
ALT 15
Alkaline Phosphatase 67
Vital Signs:
Vital Signs
Temp Pulse Resp BP Pulse Ox
98.0 F 90 18 127/65 98
12/18/24 13:15 12/18/24 14:58 12/18/24 14:58 12/18/24 14:58 12/18/24 14:26
I&O
12/17/24 12/18/24 12/19/24
06:59 06:59 06:59
Intake Total 1200 / 1200 1150 / 1150
Output Total 500 / 500 100 / 100
Balance 700 / 700 1050 / 1050
Physical Exam
-
General: Well Developed and No Apparent Distress
HEENT: Normocephalic, Atraumatic and Moist Mucous Membranes
Respiratory: Clear to Auscultation
Cardiac: Regular Rhythm and S1/S2; Negative Murmur, Rub or Gallop
GI: Soft, Normal Bowel Sounds, Tender and Distended; Negative Organomegaly
Rectal: Deferred by Provider
Musculoskeletal: No Clubbing, No Cyanosis and No Edema
Skin: Negative Rash
Neuro: Awake, Alert, Oriented, AO x 3 and Nonfocal/Grossly Intact
[2024-12-18 16:43] LABS: Body Fluid Mononuclear 15.2 %; Body Fluid Polymorphonuclear 84.8 %; Body Fluid WBC 4211 /CUMM
[2024-12-18 16:45] LABS: Body Fluid Albumin < 1.0 g/dl
[2024-12-18 16:48] LABS: Body Fluid Second Tech CMC
[2024-12-18] MEDS: SYMBICORT 160/4.5 MCG INHALER INH (19:32)
[2024-12-18 23:00] VITALS: BP 106/45
[2024-12-19] VITALS (7 sets, daily range): BP systolic 103–143; BP diastolic 43–73; BMI 24.3
[2024-12-19] MEDS: FLEXBUMIN 100 IV (01:39)
[2024-12-19] MEDS: DILAUDID 0.5 MG IV ×7 (01:48→23:51)
[2024-12-19] MEDS: MERREM 500 MG IV ×4 (05:17→23:51)
[2024-12-19] MEDS: STERILE WATER FOR INJECTION 10 ML IV ×4 (05:17→23:51)
[2024-12-19] MEDS: SYMBICORT 160/4.5 MCG INHALER INH ×2 (07:10→19:24)
[2024-12-19] MEDS: SPIRIVA RESPIMAT 2.5 MCG INH (07:10)
[2024-12-19 07:53] LABS: INR 1.68; PT 20.3 Sec (11.4-14.6)
[2024-12-19 08:00] LABS: % Basophils 0.4 % (0-2); % Eosinophils 2.7 % (0-6); % Immature Granulocytes 1.6 % (0-0.5); % Lymphocytes 11.6 % (20.5-51.1); % Monocytes 10.5 % (1.7-9.3); % Neutrophils 73.2 % (42.2-75.2); Absolute Eosinophils 0.1 10^3/uL (0-0.7); Absolute Immature Granulocytes 0.1 10^3/uL (0-0.05); Absolute Lymphocytes 0.5 10^3/uL (1.2-3.4); Absolute Monocytes 0.5 10^3/uL (0.1-0.6); Absolute Neutrophils 3.3 10^3/uL (1.4-6.5); Hematocrit 19.8 % (39.0-52.0); Hemoglobin 6.6 g/dL (13.0-18.0); Mean Corp Hgb Conc. 33.3 g/dL (33.0-37.0); Mean Corpuscular Hgb 31.9 pg (27.0-31.0); Mean Corpuscular Volume 95.7 fL (80.0-94.0); Mean Platelet Volume 9.4 fL (7.4-10.4); Nucleated Red Blood Cells % 0 % (-); Platelet Count 45 10^3/uL (130-400); Red Blood Cell Count 2.07 10^6/uL (4.70-6.10); Red Cell Dist. Width 17.2 % (11.5-14.5); White Blood Cell Count 4.5 10^3/uL (4.8-10.8)
[2024-12-19 08:07] LABS: ALT (SGPT) 15 U/L (0-50); AST (SGOT) 35 U/L (17-59); Albumin 3.2 g/dl (3.5-5.0); Alkaline Phosphatase 102 U/L (38-126); Blood Urea Nitrogen 32 mg/dl (9-20); Calcium 7.5 mg/dl (8.4-10.2); Carbon Dioxide 22 mmol/L (22-30); Chloride 102 mmol/L (98-107); Estimated Creatinine Clearance 114 ml/min; Glucose 139 mg/dl (70-99); Potassium 3.3 mmol/L (3.5-5.1); Sodium 134 mmol/L (135-145); Total Bilirubin 2.8 mg/dl (0.2-1.3); Total Protein 4.7 g/dl (6.3-8.2); eGFR > 60.00
[2024-12-19] MEDS: XIFAXAN 550 MG PO ×2 (08:48→20:22)
[2024-12-19] MEDS: ProAmatine 2.5 MG PO ×3 (08:48→17:06)
[2024-12-19] MEDS: PROTONIX 40 MG PO (08:48)
[2024-12-19] MEDS: ZINC 50 MG PO (08:48)
[2024-12-19] MEDS: FOLVITE 1 MG PO (08:48)
[2024-12-19] MEDS: VITAMIN B1 100 MG PO (08:48)
[2024-12-19] MEDS: MAG-TAB SR 84 MG PO ×2 (08:48→20:22)
[2024-12-19] MEDS: PREPARATION H OINTMENT 1 APPLIC RECTAL ×2 (08:49→20:23)
[2024-12-19] MEDS: DESENEX/MITRAZOL/ZEASORB 1 APPLIC TOPICAL ×2 (08:49→20:22)
[2024-12-19] MEDS: DUPHALAC/CHRONULAC 20 GRAMS PO ×3 (08:49→21:33)
--- NOTE | 2024-12-19 09:14 | W.PN.NEPH.PH ---
Today's Communication / Plan
-
Acute kidney injury resolved
Maintain midodrine support for hemodynamics in setting of cirrhosis
Still holding Lasix and Aldactone at this time
Assessment/Plan
-
Assessment
TYSON
Hyponatremia
Hypoalbuminemia
ESLD
Gram-negative bacilli bacteremia
Ascites
anemia
COPD
Thrombocytopenia
Coagulopathy
Plan
TYSON likely a function of prerenal stimulus in the setting of decompensated cirrhosis and hemodynamic instability
Creatinine improved to 0.7 nonoliguric
Maintain MAP greater than 65, albumin provided, continue midodrine 2.5mg TID
Status post paracentesis for 4500 cc yesterday
Transfuse packed red blood cells as needed (status post 3 units of packed red blood cells provided)
Follow BMP
Still holding Lasix at this time weight stable
urine studies consistent with prerenal (anemia + liver decompensation)
-
-
Date of Service: December 19, 2024
CC / HPI / ROS
-
Chief Complaint:
TYSON
History of Present Illness:
TYSON resolved
hemodyamically stable on midodrine support
Status post paracentesis for 4500 cc on 12/18/2024
Review of Systems:
non oliguric
no fevers
Weight stable
Labs
-
Labs:
WBC 4.5 10^3/uL (4.8-10.8) L 12/19/24 06:24
RBC 2.07 10^6/uL (4.70-6.10) L 12/19/24 06:24
Hgb 6.6 g/dL (13.0-18.0) L* 12/19/24 06:24
Hct 19.8 % (39.0-52.0) L* 12/19/24 06:24
Plt Count 45 10^3/uL (130-400) L D 12/19/24 06:24
Sodium 134 mmol/L (135-145) L 12/19/24 06:24
Potassium 3.3 mmol/L (3.5-5.1) L 12/19/24 06:24
Chloride 102 mmol/L (98-107) 12/19/24 06:24
Carbon Dioxide 22 mmol/L (22-30) 12/19/24 06:24
BUN 32 mg/dl (9-20) H 12/19/24 06:24
Creatinine 0.7 mg/dL (0.7-1.3) 12/19/24 06:24
eGFR > 60.00 12/19/24 06:24
Glucose 139 mg/dl (70-99) H 12/19/24 06:24
Calcium 7.5 mg/dl (8.4-10.2) L 12/19/24 06:24
Albumin 3.2 g/dl (3.5-5.0) L 12/19/24 06:24
Physical Exam
-
Vital Signs:
Vital Signs
Temp Pulse Resp BP Pulse Ox
99.1 F 93 14 103/43 95
12/19/24 08:03 12/19/24 08:03 12/19/24 08:03 12/19/24 08:03 12/19/24 08:03
Cardiovascular:: Regular rate and rhythm
Respiratory:: Bilateral: CTA
Lung Excursion:: Normal
Abdomen:: Distended
Bowel Sounds:: Decreased
Extremity Edema:: None: Bilateral:
Stevens Catheter: No
--- NOTE | 2024-12-19 10:05 | W.PN.GI.CBS2 ---
Addendum entered and electronically signed by MARCIA Valdez 12/19/24 14:06:
noted black stool this am with hbg 6.6 will give 1 unit PRBC and monitor recent EGD in November with portal HTN . If increased stool consider repeat EGD.
Addendum entered and electronically signed by Olena Floyd MD 12/19/24 12:35:
I saw and examined the patient.
The WHARF TALLY CLERK or PA's note was reviewed and I agree with the note.
Comment: Patient reports some discomfort in the lower abdomen but tolerating 2 g sodium diet. No fevers or chills.
Had bowel movements last night.
Noted hemoglobin did trend down, agree with consideration of PRBC transfusion to keep hemoglobin above 7.0 g/dL.
SBP seems to be improving on repeat para, currently on Meropenem per ID.4-6 week course suggested by [facility] hepatology.
Monitor electrolytes and replete. Continue Protonix, Xifaxan and lactulose.
Creatinine wnl. Currently on midodrine, diuretics on hold per nephrology at this time. Will need to discuss if/when to resume at discharge.
Patient has follow-up appointment with Dr. Dan 01/03.
Original Note:
Today's Communication / Plan
-
still with some abdominal pain
repeat para with 4211 WBC's with improvement no fevers
cont abx per ID
Dr. Floyd and I reviewed with Dr. Dan 12/18 --plan for ID eval at [facility] to seen if any other intervention with recurrent infection
I spoke with nurse navigator 12/18 Wanda Muniz -- [phone] who assist pt with visits
hbg still some drop to 6.6 consider further transfusion today
-Continue Xifaxan and lactulose
-Continue pantoprazole
-Continue 2 g sodium diet
-Daily weights
replete K per hospitalist
- updated 12/18
Assessment / Plan
-
59 y.o male well-known to GI group with past medical history significant for decompensated cirrhosis (HCV vs EtOH) with intractable ascites with weekly para, HE, GI bleeding by recurrent hospitalizations with HE secondary to acute on chronic GI
bleeding 2/2 PHG gastric varix, hx of prior post-polypectomy bleed, prior transfer to [facility] for Ultrasound guided gastric artery coiling procedure (09/2024), chronic HCV (s/p treatment with Epclusa s/p SVR), CVA, HTN, COPD, and chronic
thrombocytopenia. Last EGD 11/16/2024 with oozing portal hypertensive gastropathy treated with APC. Hx of recurrent SBP, ecoli ESBL blood/peritoneal fluid, intermediate to doxycycline and required IV ertapenem via midline as an outpatient until
12/06/24. Who comes back to the emergency room with fevers and abdominal pain, elevated lactic acid and paracentesis with WBC cells 10,000 consistent with recurrent SBP. Blood cultures x 2 positive for gram-negative bacilli. Per review of ID noted
He has failed multiple courses of antibiotic including Ertapenem x 10 d followed by doxycycline suppressive therapy; Ertapenem x 14days; more recently Ertapenem x 21 days completed 12/06/24,now with relapse of SBP, bacteremia within 7 days. There
is no oral abx option for suppressive therapy. Lifelong IV antibiotic is not an option.
Impression:
Decompensated cirrhosis
Recurrent SBP finished 3 course of IV abx 10 days then Doxy, 14 days and last 21 days with ertapenem IV until 12/06/2024 now restarted 12/15
--Paracentesis with WBC cells 10,000 repeat 12/18 with 4211
--ascites fluid ESBL/E Coli
--completed Albumin day 1 and 3
hx HE remains on Lactulose TID and Xifaxan BID
ESBL/E Coli bacteremia-recurrent, continues on Meropenem
-repeat blood cultures neg for 48 hours
Hypotension-> improved , now on Midodrine 2.5 mg TID
TYSON-on admission now improved , baseline is usually 0.7
Hgb drop to 5.1 (12/15/24)--> transfused 4 units PRBC Hgb 6.6 today . No signs of bleeding brown stools -- consider further transfusion
hypokalemia
Plan:
still with some abdominal pain
repeat para with 4211 WBC's with improvement no fevers
cont abx per ID
Dr. Floyd and I reviewed with Dr. Dan 12/18 --plan for ID eval at [facility] to seen if any other intervention with recurrent infection
I spoke with nurse navigator 12/18 Wanda Muniz -- [phone] who assist pt with visits
hbg still some drop to 6.6 consider further transfusion today
-Continue Xifaxan and lactulose
-Continue pantoprazole
-Continue 2 g sodium diet
-Daily weights
replete K per hospitalist
- updated 12/18
Subjective
Subjective
Date of Service: December 19, 2024
brown stools on 2 gram Na diet, c/o some abdominal pain but improved from admission
Objective
Data Reviewed
Laboratory Data:
Laboratory Results
12/19/24 06:24
12/19/24 06:24
Laboratory Results
PT 20.3 Sec (11.4-14.6) H 12/19/24 06:24
INR 1.68 12/19/24 06:24
Total Bilirubin 2.8 mg/dl (0.2-1.3) H 12/19/24 06:24
AST 35 U/L (17-59) 12/19/24 06:24
ALT 15 U/L (0-50) 12/19/24 06:24
Alkaline Phosphatase 102 U/L (38-126) 12/19/24 06:24
Vital Signs and I&O:
Vital Signs
Temp Pulse Resp BP Pulse Ox
99.1 F 93 14 103/43 95
12/19/24 08:03 12/19/24 08:03 12/19/24 08:03 12/19/24 08:03 12/19/24 08:03
I&O
12/18/24 12/19/24 12/20/24
06:59 06:59 06:59
Intake Total 1150 / 1150 940 / 940
Output Total 100 / 100
Balance 1050 / 1050 940 / 940
Physical Exam
Physical Exam
HEENT: Anicteric and Moist mucous membranes
Cardiology: Normal Sinus Rhythm
Pulmonary: Clear
GI: Soft, Distended and Tender (mild )
Extremities: No Edema
Neuro: Non Focal
--- NOTE | 2024-12-19 11:20 | PTOTSP ---
Observed pt ambulating independently in his room. PT will sign off.
--- NOTE | 2024-12-19 11:44 | CM ---
Addendum entered by Kelsie Shen 12/19/24 12:37:
Received script for Ertapenam 1 gm IV q24h from Dr. Muse
copy placed in chart - Information faxed [phone]) to [facility], also gave to Natalie at [facility].
Will send PICC information once placed.
Original Note:
Patient seen at bedside.
Hgb 6.6 today - transfusion
PT signed off - patient ambulating
Patient current with [facility] - referral in [facility]
IV antibiotic script to be given to CM from Dr. Muse
PLAN: home, [facility]
--- NOTE | 2024-12-19 12:05 | W.PN.ID1 ---
Date of Service
Date of Service: December 19, 2024
Today's Communication
Continue antibiotics.
Assessment / Plan
Recurrent SBP 2* ESBL E. coli.
Bacteremia with ESBL E. coli.
Decompensated end-stage cirrhosis with recurrent ascites, weekly paracentesis
shock: hemorrhagic vs septic or both, resolving
TYSON
Acute on chronic anemia. CT a/p no hematoma
Recommendations:
Repeat blood cx's negative
Follow temps, wbc, vitals
Etiology of recurrence is not immediately clear, but likely related to ESLD (including changes in humoral immunity, decreased synthesis and complement).
Continue ertapenem; will tx for 4 to 6 weeks. IV sheet given to Case management.
GI has been in touch with transplant service at [facility]. Patient evidently also to be evaluated by ID there.
Overall poor prognosis
����������������������������������������������������������
Chief Complaint
-: Bacteremia and Other (SBP)
Subjective / Review of Systems
Review of Systems: No Fever, No Chills and Abdominal Pain
Vital Signs / Physical Exam
Vital Signs
Vital Signs
Temp Pulse Resp BP Pulse Ox
99.1 F 93 14 103/43 95
12/19/24 08:03 12/19/24 08:03 12/19/24 08:03 12/19/24 08:03 12/19/24 08:03
Physical Exam
Constitutional: No Acute Distress, Comfortable, Chronically Ill and Non-toxic
Eyes: Other (mild scleral icterus noted.)
Cardiovascular: Regular Rate and S1/S2; Negative S3/S4
Gastrointestinal: Soft, Tender, Distended and Normal Bowel Sounds
Extremities: Edema
Neurological: AO x 3
Psychological: Calm
Objective Data
Lab Data
Lab Results
12/19/24 06:24
12/19/24 06:24
PT 20.3 Sec (11.4-14.6) H 02/12/25 06:24
INR 1.68 12/19/24 06:24
Estimated Creat Clear 114 ml/min 12/19/24 06:24
Lactic Acid 5.5 mmol/L (0.7-2.0) H* 12/14/24 10:12
Total Bilirubin 2.8 mg/dl (0.2-1.3) H 12/19/24 06:24
GGT 15 U/L (15-73) 12/15/24 06:47
AST 35 U/L (17-59) 12/19/24 06:24
ALT 15 U/L (0-50) 12/19/24 06:24
Alkaline Phosphatase 102 U/L (38-126) 12/19/24 06:24
Most recent labs reviewed.
Micro Results:
12/18/24 14:37 Body Fluid Culture - Preliminary
Peritoneal Fluid No Growth After 18-24 Hours
Gram Stain - Preliminary
12/16/24 11:19 Blood Culture - Preliminary
Blood/Venous No Growth in 72 hours- Final report to follow
12/16/24 11:00 Blood Culture - Preliminary
Blood/Venous No Growth in 72 hours- Final report to follow
12/16/24 06:06 Blood Culture - Preliminary
Blood/Venous No Growth in 48 hours- Final report to follow
12/14/24 07:57 Body Fluid Culture - Final
Peritoneal Fluid Escherichia coli - ESBL
Gram Stain - Final
12/14/24 06:25 Blood Culture - Final
Blood/Venous Escherichia coli - ESBL
Gram Stain - Final
12/14/24 06:25 Blood Culture - Final
Blood/Venous Escherichia coli - ESBL
Gram Stain - Final
Imaging:
12/15/24 CT a/p: No CT evidence for a hematoma in the abdomen or pelvis. Hepatic cirrhosis with secondary findings of portal hypertension including splenomegaly and moderate abdominopelvic ascites. Ascites measures simple fluid attenuation. Large
right inguinal hernia containing ascites.
Care Review
Plan reviewed with: Physician (GI)
--- NOTE | 2024-12-19 16:24 | W.PN.HOSP.TC ---
Today's Communication/Plan
-
Continue IV antibiotics
PICC line
Transfuse.
Monitor hemoglobin
Continue midodrine.
Currently off diuretics
Continue lactulose and rifaximin
Assessment / Plan
Assessment / Plan
Sepsis due to recurrent SBP -sepsis improving. Lactic acidosis from sepsis noted. Responding to antibiotics. Currently on IV meropenem per ID. Blood and ascitic fluid cultures show gram-negative bacilli, speciation pending.
Both September 2024 and November 2024 blood cultures and fluid cultures showed ESBL E. coli.
At this point he is out of options and infectious disease is recommending hospice. No good oral suppressive antibiotic options available. Patient not interested in hospice currently.
Patient is currently getting evaluated by [facility] for liver transplant. Has an virtual appointment with them this Tuesday the .
Status post paracentesis 4500 mL on 12/18. Ascitic fluid with trending down WBC/ANC count
Status post albumin infusion on 12/18
TYSON -now improving, creatinine 2.3�1.0. Blood pressure improved on midodrine. Nephrology following.
Diuretics on hold.
Please check daily weights.
Acute on chronic anemia heme positive stool. Known variceal disease.. No evidence of bleeding on CT abdomen. No evidence of hemolysis. LDH is normal. Monitor closely. Transfuse to keep hemoglobin above 7.5
Decompensated cirrhosis -presentation with recurrent ascites and SBP. Last paracentesis was December 14, 4 L removed in the emergency room. IV albumin per GI service.
Intractable abdominal pain -likely due to acute peritonitis, SBP. Getting IV Dilaudid as needed. Abdominal pain overall improving.
ESLD
Hyponatremia -sodium 134 this morning.
Pancytopenia -WBC count currently normal, platelet count 54,000. Etiology of pancytopenia due to ESLD.
History of GI bleed
COPD without exacerbation
Gastric varices
Portal hypertensive gastropathy
Full code
Prognosis unfortunately remains poor.
Anticipated Discharge: 24 - 48 hours
Subjective/Interval History
-
Date of Service: December 19, 2024
Objective Data
-
Labs:
Laboratory Results
12/19/24
06:24
WBC 4.5 L
Hgb 6.6 L*
Hct 19.8 L*
Plt Count 45 L D
PT 20.3 H
INR 1.68
Sodium 134 L
Potassium 3.3 L
Chloride 102
Carbon Dioxide 22
BUN 32 H
Creatinine 0.7
Glucose 139 H
Calcium 7.5 L
Total Bilirubin 2.8 H
AST 35
ALT 15
Alkaline Phosphatase 102
Vital Signs:
Vital Signs
Temp Pulse Resp BP Pulse Ox
99.7 F 86 16 124/67 95
12/19/24 15:41 12/19/24 15:41 12/19/24 15:41 12/19/24 15:41 12/19/24 15:41
I&O
12/18/24 12/19/24 12/20/24
06:59 06:59 06:59
Intake Total 1150 / 1150 940 / 940
Output Total 100 / 100
Balance 1050 / 1050 940 / 940
Physical Exam
-
General: Well Developed and No Apparent Distress
HEENT: Normocephalic, Atraumatic and Moist Mucous Membranes
Respiratory: Clear to Auscultation
Cardiac: Regular Rhythm and S1/S2; Negative Murmur, Rub or Gallop
GI: Soft, Normal Bowel Sounds, Tender and Distended; Negative Organomegaly
Rectal: Deferred by Provider
Musculoskeletal: No Clubbing, No Cyanosis and No Edema
Skin: Negative Rash
Neuro: Awake, Alert, Oriented, AO x 3 and Nonfocal/Grossly Intact
--- NOTE | 2024-12-19 17:51 | W.PN.UPDATE ---
Update Note
Progress Note Update
received tiger text pt note with coughing up blood and clots in month without any injury to mouth. Reviewed with Dr. Floyd, Dr. Gilliland via tiger text. Added PPI and octeotide gtt, Q 6 h H/H, cont abx, NPO, and add tele. Nursing to call
[place] and hospitalist team if bleeding persists.
--- NOTE | 2024-12-19 17:54 | PTCARENOTE ---
Patient coughing up blood clots and mouth bloody. MD and GI made aware. 1 unit of PRBCs transfusing now. Repeat H&H 2 hours after blood transfusion ended. TT Dr. Floyd is persistent bleeding. Will relay to night guard.
[2024-12-19] MEDS: SANDOSTATIN 500.6 MCG IV (20:30)
[2024-12-19] MEDS: PROTONIX 100 IV (20:53)
[2024-12-19 23:47] LABS: Hematocrit 21.1 % (39.0-52.0); Hemoglobin 7.2 g/dL (13.0-18.0)
[2024-12-20] VITALS (10 sets, daily range): BP systolic 117–152; BP diastolic 51–75; BMI 23.8
[2024-12-20] MEDS: DILAUDID 0.5 MG IV ×6 (03:28→21:41)
[2024-12-20 04:08] LABS: INR 1.75; PT 20.9 Sec (11.4-14.6)
[2024-12-20 04:12] LABS: Hematocrit 21.6 % (39.0-52.0); Hemoglobin 7.4 g/dL (13.0-18.0); Mean Corp Hgb Conc. 34.3 g/dL (33.0-37.0); Mean Corpuscular Hgb 31.5 pg (27.0-31.0); Mean Corpuscular Volume 91.9 fL (80.0-94.0); Mean Platelet Volume 11.1 fL (7.4-10.4); Platelet Count 43 10^3/uL (130-400); Red Blood Cell Count 2.35 10^6/uL (4.70-6.10); Red Cell Dist. Width 17.7 % (11.5-14.5); White Blood Cell Count 3.7 10^3/uL (4.8-10.8)
[2024-12-20] MEDS: PROTONIX 100 IV (04:12)
[2024-12-20 04:22] LABS: ALT (SGPT) 16 U/L (0-50); AST (SGOT) 32 U/L (17-59); Alkaline Phosphatase 88 U/L (38-126); Blood Urea Nitrogen 25 mg/dl (9-20); Calcium 7.4 mg/dl (8.4-10.2); Carbon Dioxide 24 mmol/L (22-30); Chloride 100 mmol/L (98-107); Direct Bilirubin 0.7 mg/dl (0.0-0.4); Estimated Creatinine Clearance > 125 ml/min; Glucose 114 mg/dl (70-99); Potassium 3.7 mmol/L (3.5-5.1); Sodium 132 mmol/L (135-145); Total Bilirubin 4.2 mg/dl (0.2-1.3); Total Protein 4.5 g/dl (6.3-8.2); eGFR > 60.00
[2024-12-20] MEDS: STERILE WATER FOR INJECTION 10 ML IV ×3 (06:12→17:20)
[2024-12-20] MEDS: MERREM 500 MG IV ×3 (06:12→17:20)
[2024-12-20] MEDS: SPIRIVA RESPIMAT 2.5 MCG INH (07:30)
[2024-12-20] MEDS: SYMBICORT 160/4.5 MCG INHALER INH ×2 (07:30→19:24)
--- NOTE | 2024-12-20 08:00 | PN.CDI ---
CDI
- -
CDI:
Physician Documentation Request
Admit Date: 12/14/24 10:37
Dear Doctor Talat,
Please review the following and provide your response in the progress notes.
Clinical Indicators:
- Patient admit septic due to spontaneous bacterial peritonitis
- 12/19 PN 'Sepsis due to recurrent SBP...lactic acidosis'
- 'TYSON'
- 'Blood pressure improved on midodrine'
- 12/19 ID 'shock: hemorrhagic vs septic or both'
- On admisssion:
- Lactic acid level 6.0
- Systolic BP 80-90s
- Midodrine started
- Hgb 5.1
- 2L IVF given
- 6 units PRBC given
- Albumin given
In an attempt to clarify potentially conflicting documentation, please clarify the severity of sepsis:
Sepsis only due to SBP
Severe Sepsis due to SBP with associated TYSON and liver failure
- Sepsis with associated acute organ dysfunction, such as renal or respiratory failure
- Documentation should indicate the association between the sepsis and the organ dysfunction
Septic Shock
- Severe sepsis associated with circulatory failure, evidenced by hypotension and hypoperfusion
Other (please specify)
Use of terms such as suspected, likely, concern for, or probable (associated with a specific diagnosis that is being evaluated, monitored, or treated as if it exists) are acceptable and can be coded in the inpatient setting, when documented at the
time of discharge.
Thank you,
Frank Loera RN
CDI Specialist
Please use your independent medical judgment in providing your response.
--- NOTE | 2024-12-20 08:41 | W.PN.GI.CBS2 ---
Addendum entered and electronically signed by Olena Floyd MD 12/20/24 13:33:
I saw and examined the patient.
The GLASSWARE VERIFIER or PA's note was reviewed and I agree with the note.
Comment: Patient reports episode of coughing up some bright blood with clots last night but nothing since. He also reports brown stool last night. No fevers or chills.
Labs show hemoglobin is stable at 7.4 and BUN is trending down. Currently hemodynamically stable.
Unclear if this is local trauma causing bright blood as he did not see any coffee-ground material. No vomiting.
No evidence of esophageal varices noted on upper endoscopy 11/16/2024, moderate portal hypertensive gastropathy noted but could not evaluate for gastric varices due to large amounts of food residue in the stomach.
Started on octreotide and Protonix drip last night, can stop it today.
Continue Protonix 40 mg IV twice daily.
Continue lactulose and Xifaxan.
-Paracentesis 12/18/2024 showing WBC trending down compared to previous
And cultures negative.
Continue meropenem per ID, for 4 to 6 weeks as per conversation with Dr. Dan.
Currently on midodrine, diuretics on hold due to TYSON on admission.
Will need to discuss with nephrology regarding resuming diuretics at discharge.
For repeat para tomorrow.
Okay for clear liquid diet and advance as tolerated if no further bleeding.
Will follow
Original Note:
Today's Communication / Plan
-
noted episode of coughing/ vomiting clots 2/12 PM no further episodes overnight
will transition off Octreotide and PPI gtt later today without recurrent episodes of vomiting
repeat para with 4211 WBC's with improvement no fevers -- will repeat again tomorrow with some distention on exam
cont abx per ID plan for continued OP abx and follow up with [facility] ID per review with Dr. Dan 12/18
hbg 7.4 today total 6 units transfused since admission last transfusion 12/19
-Continue Xifaxan and lactulose
-ok for clear liquid breakfast then if no further vomiting resume Continue 2 g sodium diet
still wit some distention will repeat para in AM prior to weekend for comfort-- order placed for 12/21
to resume OP para weekly schedule on discharge
-Daily weights
-renal following for ability to resume diuretics
pt will need follow up with Dr. Dan, ID at [place], psych eval due tomorrow as he still wishes to proceed with aggressive care with cirrhosis
Assessment / Plan
-
59 y.o male well-known to GI group with past medical history significant for decompensated cirrhosis (HCV vs EtOH) with intractable ascites with weekly para, HE, GI bleeding by recurrent hospitalizations with HE secondary to acute on chronic GI
bleeding 2/2 PHG gastric varix, hx of prior post-polypectomy bleed, prior transfer to [place] for Ultrasound guided gastric artery coiling procedure (09/2024), chronic HCV (s/p treatment with Epclusa s/p SVR), CVA, HTN, COPD, and chronic
thrombocytopenia. Last EGD 11/16/2024 with oozing portal hypertensive gastropathy treated with APC. Hx of recurrent SBP, ecoli ESBL blood/peritoneal fluid, intermediate to doxycycline and required IV ertapenem via midline as an outpatient until
12/06/24. Who comes back to the emergency room with fevers and abdominal pain, elevated lactic acid and paracentesis with WBC cells 10,000 consistent with recurrent SBP. Blood cultures x 2 positive for gram-negative bacilli. Per review of ID noted
He has failed multiple courses of antibiotic including Ertapenem x 10 d followed by doxycycline suppressive therapy; Ertapenem x 14days; more recently Ertapenem x 21 days completed 12/06/24,now with relapse of SBP, bacteremia within 7 days. There is
no oral abx option for suppressive therapy. Lifelong IV antibiotic is not an option. 12/19 noted with vomiting/coughing up clots x 1 episode.
Impression:
Decompensated cirrhosis-- 12/20 MELD 3.0 21
Recurrent SBP finished 3 course of IV abx 10 days then Doxy, 14 days and last 21 days with ertapenem IV until 12/06/2024 now restarted 12/15
--Paracentesis with WBC cells 10,000 repeat 12/18 with 4211
--ascites fluid ESBL/E Coli
--completed Albumin day 1 and 3
episode of coughing/vomiting clots of red blood 12/19 -- last EGD 11/2024 with oozing portal gastropathy
chronic anemia requiring transfusions
hx HE remains on Lactulose TID and Xifaxan BID
ESBL/E Coli bacteremia-recurrent, continues on Meropenem
-repeat blood cultures neg for 48 hours
Hypotension-> improved , now on Midodrine 2.5 mg TID
TYSON-on admission now improved , baseline is usually 0.7
hypokalemia- improved
Plan:
noted episode of coughing/ vomiting clots 12/19 PM no further episodes overnight
will transition off Octreotide and PPI gtt later today without recurrent episodes of vomiting
repeat para with 4211 WBC's with improvement no fevers -- will repeat again tomorrow with some distention on exam
cont abx per ID plan for continued OP abx and follow up with [facility] ID per review with Dr. Dan 12/18
hbg 7.4 today total 6 units transfused since admission last transfusion 12/19
-Continue Xifaxan and lactulose
-ok for clear liquid breakfast then if no further vomiting resume Continue 2 g sodium diet
still wit some distention will repeat para in AM prior to weekend for comfort-- order placed for 12/21
to resume OP para weekly schedule on discharge
-Daily weights
-renal following for ability to resume diuretics
pt will need follow up with Dr. Dan, ID at [place], psych as he is due tomorrow as he still wishes to proceed with aggressive care with cirrhosis
Subjective
Subjective
Date of Service: December 20, 2024
episode of cough up large clots of blood from throat, mouth vs other last PM, stool black then brown overnight
Objective
Data Reviewed
Laboratory Data:
Laboratory Results
12/20/24 03:43
12/20/24 03:43
Laboratory Results
PT 20.9 Sec (11.4-14.6) H 12/20/24 03:43
INR 1.75 12/20/24 03:43
Total Bilirubin 4.2 mg/dl (0.2-1.3) H 12/20/24 03:43
AST 32 U/L (17-59) 12/20/24 03:43
ALT 16 U/L (0-50) 12/20/24 03:43
Alkaline Phosphatase 88 U/L (38-126) 12/20/24 03:43
Vital Signs and I&O:
Vital Signs
Temp Pulse Resp BP Pulse Ox
98.7 F 84 12 117/60 95
12/20/24 07:21 12/20/24 07:21 12/20/24 07:21 12/20/24 07:21 12/20/24 07:21
I&O
12/19/24 12/20/24 12/21/24
06:59 06:59 06:59
Intake Total 940 / 940 2664 / 2664
Output Total 400 / 400
Balance 940 / 940 2264 / 2264
Physical Exam
Physical Exam
HEENT: Anicteric and Moist mucous membranes
Cardiology: Normal Sinus Rhythm
Pulmonary: Clear
GI: Soft, Distended and Tender (continued abdominal pain mild on exam )
Extremities: Edema (mild minimal )
Neuro: Non Focal
[2024-12-20] MEDS: ZINC 50 MG PO (08:44)
[2024-12-20] MEDS: DESENEX/MITRAZOL/ZEASORB 1 APPLIC TOPICAL ×2 (08:44→20:35)
[2024-12-20] MEDS: FOLVITE 1 MG PO (08:44)
[2024-12-20] MEDS: XIFAXAN 550 MG PO ×2 (08:44→20:35)
[2024-12-20] MEDS: ProAmatine 2.5 MG PO ×3 (08:44→17:19)
[2024-12-20] MEDS: MAG-TAB SR 84 MG PO ×2 (08:44→20:35)
[2024-12-20] MEDS: DUPHALAC/CHRONULAC 20 GRAMS PO ×3 (08:44→21:42)
[2024-12-20] MEDS: VITAMIN B1 100 MG PO (08:44)
[2024-12-20] MEDS: PREPARATION H OINTMENT 1 APPLIC RECTAL ×2 (08:45→20:35)
[2024-12-20] MEDS: SANDOSTATIN 500.6 MCG IV (08:45)
--- NOTE | 2024-12-20 10:42 | W.PN.ID1 ---
Date of Service
Date of Service: December 20, 2024
Today's Communication
Continue antibiotics.
Assessment / Plan
Recurrent SBP 2* ESBL E. coli.
Bacteremia with ESBL E. coli.
Decompensated end-stage cirrhosis with recurrent ascites, weekly paracentesis
shock: hemorrhagic vs septic or both, resolved
TYSON
- resolved
Acute on chronic anemia. CT a/p no hematoma
Recommendations:
Repeat blood cx's negative
Follow temps, wbc, vitals
Etiology of recurrence is not immediately clear, but likely related to ESLD (including changes in humoral immunity, decreased synthesis and complement).
Continue ertapenem; will tx for 4 to 6 weeks. IV sheet given to Case management.
GI has been in touch with transplant service at [facility]. Patient reportedly also to be evaluated by ID there.
Overall poor prognosis
����������������������������������������������������������
Chief Complaint
-: Bacteremia and Other (SBP (recurrent))
Subjective / Review of Systems
Review of Systems: No Fever and No Chills
Vital Signs / Physical Exam
Vital Signs
Vital Signs
Temp Pulse Resp BP Pulse Ox
98.7 F 84 12 117/60 95
12/20/24 07:21 12/20/24 07:21 12/20/24 07:21 12/20/24 07:21 12/20/24 07:21
Physical Exam
Constitutional: No Acute Distress, Comfortable, Chronically Ill and Non-toxic
Head: Normocephalic
Eyes: Sclera Anicteric and Other (mild scleral icterus noted.)
Cardiovascular: Regular Rate and S1/S2
Pulmonary: Non Labored
Gastrointestinal: Soft, Tender and Distended
Extremities: Edema; Negative Cyanosis or Erythema
Neurological: AO x 3
Psychological: Calm
Objective Data
Lab Data
Lab Results
12/20/24 03:43
02/13/25 03:43
PT 20.9 Sec (11.4-14.6) H 12/20/24 03:43
INR 1.75 12/20/24 03:43
Estimated Creat Clear > 125 ml/min 12/20/24 03:43
Lactic Acid 5.5 mmol/L (0.7-2.0) H* 12/14/24 10:12
Total Bilirubin 4.2 mg/dl (0.2-1.3) H 12/20/24 03:43
GGT 15 U/L (15-73) 12/15/24 06:47
AST 32 U/L (17-59) 12/20/24 03:43
ALT 16 U/L (0-50) 12/20/24 03:43
Alkaline Phosphatase 88 U/L (38-126) 12/20/24 03:43
Most recent labs reviewed.
Micro Results:
12/18/24 14:37 Body Fluid Culture - Preliminary
Peritoneal Fluid No Growth After 48 Hours
Gram Stain - Preliminary
12/16/24 06:06 Blood Culture - Preliminary
Blood/Venous No Growth in 72 hours- Final report to follow
12/16/24 11:19 Blood Culture - Preliminary
Blood/Venous No Growth in 72 hours- Final report to follow
12/16/24 11:00 Blood Culture - Preliminary
Blood/Venous No Growth in 72 hours- Final report to follow
12/14/24 07:57 Body Fluid Culture - Final
Peritoneal Fluid Escherichia coli - ESBL
Gram Stain - Final
12/14/24 06:25 Blood Culture - Final
Blood/Venous Escherichia coli - ESBL
Gram Stain - Final
12/14/24 06:25 Blood Culture - Final
Blood/Venous Escherichia coli - ESBL
Gram Stain - Final
Laboratory Tests
Ascites Fluid 12/10/24 12/14/24 12/18/24
08:09 07:57 14:37
Fluid WBC 48 [id number] 4211
Fluid Mononuclear Cell 98.0 11.9 15.2
Fl Polymorphonucl Cell 2.0 88.1 84.8
Imaging:
12/15/24 CT a/p: No CT evidence for a hematoma in the abdomen or pelvis. Hepatic cirrhosis with secondary findings of portal hypertension including splenomegaly and moderate abdominopelvic ascites. Ascites measures simple fluid attenuation. Large
right inguinal hernia containing ascites.
--- NOTE | 2024-12-20 11:28 | W.PN.NEPH.PH ---
Today's Communication / Plan
-
Follow BMP
Maintain blood pressure with midodrine's
Acute kidney injury resolved with creatinine down to 0 point
Sodium stable at 132 on fluid restriction
Lasix still remains held, will place back grinder to discharge or when weights rise
Assessment/Plan
-
Assessment
TYSON
Hyponatremia
Hypoalbuminemia
ESLD
Gram-negative bacilli bacteremia
Ascites
anemia
COPD
Thrombocytopenia
Coagulopathy
Plan
sodium stable at 132 on fluid restriction of 48 ounce
TYSON likely a function of prerenal stimulus in the setting of decompensated cirrhosis and hemodynamic instability
Creatinine improved to 0.6 nonoliguric
Maintain MAP greater than 65, albumin provided, continue midodrine 2.5mg TID
Status post paracentesis for 4500 cc 12/18/24, for repeat tomorrow
Transfuse packed red blood cells as needed (status post 3 units of packed red blood cells provided)
Maintains on meropenem for SBP
Follow BMP
Still holding Lasix at this time weight stable
urine studies consistent with prerenal (anemia + liver decompensation)
-
-
Date of Service: December 20, 2024
CC / HPI / ROS
-
Chief Complaint:
TYSON
History of Present Illness:
TYSON resolved
hemodyamically stable on midodrine support
Status post paracentesis for 4500 cc on 12/18/2024
Sodium stable 132
Review of Systems:
non oliguric
no fevers
Weight stable
Labs
-
Labs:
WBC 3.7 10^3/uL (4.8-10.8) L 12/20/24 03:43
RBC 2.35 10^6/uL (4.70-6.10) L 12/20/24 03:43
Hgb 7.4 g/dL (13.0-18.0) L 12/20/24 03:43
Hct 21.6 % (39.0-52.0) L 12/20/24 03:43
Plt Count 43 10^3/uL (130-400) L 12/20/24 03:43
Sodium 132 mmol/L (135-145) L 12/20/24 03:43
Potassium 3.7 mmol/L (3.5-5.1) 12/20/24 03:43
Chloride 100 mmol/L (98-107) 12/20/24 03:43
Carbon Dioxide 24 mmol/L (22-30) 12/20/24 03:43
BUN 25 mg/dl (9-20) H 12/20/24 03:43
Creatinine 0.6 mg/dL (0.7-1.3) L 12/20/24 03:43
eGFR > 60.00 12/20/24 03:43
Glucose 114 mg/dl (70-99) H 12/20/24 03:43
Calcium 7.4 mg/dl (8.4-10.2) L 12/20/24 03:43
Albumin 3.0 g/dl (3.5-5.0) L 12/20/24 03:43
Physical Exam
-
Vital Signs:
Vital Signs
Temp Pulse Resp BP Pulse Ox
98.1 F 88 18 137/75 95
12/20/24 11:15 12/20/24 11:15 12/20/24 11:15 12/20/24 11:15 12/20/24 11:15
Cardiovascular:: Regular rate and rhythm
Respiratory:: Bilateral: CTA
Lung Excursion:: Normal
Abdomen:: Distended
Bowel Sounds:: Decreased
Extremity Edema:: None: Bilateral:
Stevens Catheter: No
--- NOTE | 2024-12-20 12:57 | CM ---
PICC placed
[phone]
PLAN: home, IV antibiotic (Ertapenam 1 gm IV q24h)
--- NOTE | 2024-12-20 16:11 | W.PN.HOSP.TC ---
Today's Communication/Plan
-
Diet has been advanced as per GI after self-limited active hemoptysis/hematemesis on 12/19.
Continue PPI
Remains on octreotide last night currently discontinued
Plan is to repeat paracentesis on 12/21
Continue IV antibiotics
Discharge planing with home antibiotic infusion.
Assessment / Plan
Assessment / Plan
Sepsis due to recurrent SBP -sepsis improving. Lactic acidosis from sepsis noted. Responding to antibiotics. Currently on IV meropenem per ID. Blood and ascitic fluid cultures show gram-negative bacilli, speciation pending.
Both September 2024 and November 2024 blood cultures and fluid cultures showed ESBL E. coli.
At this point he is out of options and infectious disease is recommending hospice. No good oral suppressive antibiotic options available. Patient not interested in hospice currently.
Patient is currently getting evaluated by [facility] for liver transplant. Has an virtual appointment with them this Tuesday the .
Status post paracentesis 4500 mL on 12/18. Ascitic fluid with trending down WBC/ANC count
Status post albumin infusion on 12/18
TYSON -now improving, creatinine 2.3�1.0. Blood pressure improved on midodrine. Nephrology following.
Diuretics on hold.
Please check daily weights.
Acute on chronic anemia heme positive stool. Known variceal disease.. No evidence of bleeding on CT abdomen. No evidence of hemolysis. LDH is normal. Monitor closely. Transfuse to keep hemoglobin above 7.5
Episode of hemoptysis/hematemesis on 12/19, self-limited. Monitor closely.
Decompensated cirrhosis -presentation with recurrent ascites and SBP. Last paracentesis was December 14, 4 L removed in the emergency room. IV albumin per GI service.
Intractable abdominal pain -likely due to acute peritonitis, SBP. Getting IV Dilaudid as needed. Abdominal pain overall improving.
ESLD
Hyponatremia -sodium 134 this morning.
Pancytopenia -WBC count currently normal, platelet count 54,000. Etiology of pancytopenia due to ESLD.
History of GI bleed
COPD without exacerbation
Gastric varices
Portal hypertensive gastropathy
Full code
Prognosis unfortunately remains poor.
Anticipated Discharge: 24 - 48 hours
Subjective/Interval History
-
Date of Service: December 20, 2024
Objective Data
-
Labs:
Laboratory Results
12/20/24
03:43
WBC 3.7 L
Hgb 7.4 L
Hct 21.6 L
Plt Count 43 L
PT 20.9 H
INR 1.75
Sodium 132 L
Potassium 3.7
Chloride 100
Carbon Dioxide 24
BUN 25 H
Creatinine 0.6 L
Glucose 114 H
Calcium 7.4 L
Total Bilirubin 4.2 H
AST 32
ALT 16
Alkaline Phosphatase 88
Vital Signs:
Vital Signs
Temp Pulse Resp BP Pulse Ox
100 F 91 14 133/68 96
12/20/24 15:26 12/20/24 15:26 12/20/24 15:26 12/20/24 15:26 12/20/24 15:26
I&O
12/19/24 12/20/24 12/21/24
06:59 06:59 06:59
Intake Total 940 / 940 2664 / 2664
Output Total 400 / 400
Balance 940 / 940 2264 / 2264
Physical Exam
-
General: Well Developed and No Apparent Distress
HEENT: Normocephalic, Atraumatic and Moist Mucous Membranes
Respiratory: Clear to Auscultation
Cardiac: Regular Rhythm and S1/S2; Negative Murmur, Rub or Gallop
GI: Soft, Normal Bowel Sounds, Tender and Distended; Negative Organomegaly
Rectal: Deferred by Provider
Musculoskeletal: No Clubbing, No Cyanosis and No Edema
Skin: Negative Rash
Neuro: Awake, Alert, Oriented, AO x 3 and Nonfocal/Grossly Intact
[2024-12-20] MEDS: SANDOSTATIN IV (20:34)
[2024-12-20] MEDS: NSS (PRESERVATIVE FREE) 10 ML IV (20:35)
[2024-12-20] MEDS: PROTONIX IV 40 MG IV (20:35)
[2024-12-21] MEDS: STERILE WATER FOR INJECTION 10 ML IV ×5 (00:43→23:44)
[2024-12-21] MEDS: MERREM 500 MG IV ×5 (00:43→23:44)
[2024-12-21] MEDS: DILAUDID 0.5 MG IV ×6 (03:29→22:19)
[2024-12-21] MEDS: ANESTHETIC LOZENGE 1 LOZENGE PO ×2 (04:00→07:18)
[2024-12-21 07:15] VITALS: BP 144/71
[2024-12-21] MEDS: ProAmatine 2.5 MG PO ×2 (07:17→16:45)
[2024-12-21] MEDS: DUPHALAC/CHRONULAC 20 GRAMS PO ×3 (07:17→21:01)
[2024-12-21] MEDS: SPIRIVA RESPIMAT 2.5 MCG INH (07:18)
[2024-12-21] MEDS: ZINC 50 MG PO (07:18)
[2024-12-21] MEDS: MAG-TAB SR 84 MG PO ×2 (07:18→20:47)
[2024-12-21] MEDS: FOLVITE 1 MG PO (07:18)
[2024-12-21] MEDS: SYMBICORT 160/4.5 MCG INHALER INH ×2 (07:18→19:36)
[2024-12-21] MEDS: XIFAXAN 550 MG PO ×2 (07:18→20:47)
[2024-12-21] MEDS: VITAMIN B1 100 MG PO (07:18)
[2024-12-21] MEDS: DESENEX/MITRAZOL/ZEASORB TOPICAL (07:19)
[2024-12-21] MEDS: PREPARATION H OINTMENT RECTAL (07:19)
[2024-12-21] MEDS: PROTONIX IV 40 MG IV ×2 (07:19→20:47)
[2024-12-21] MEDS: NSS (PRESERVATIVE FREE) 10 ML IV ×2 (07:19→20:47)
--- NOTE | 2024-12-21 07:51 | W.PN.GI.CBS2 ---
Addendum entered and electronically signed by Aliyah Richter MD 12/21/24 12:10:
I saw and examined the patient.
The CATH LAB RADIOLOGICAL TECHNOLOGIST or PA's note was reviewed and I agree with the note.
Comment: 59-year-old gentleman well-known to our service with history of decompensated cirrhosis hep C versus alcohol with intractable ascites and multiple episodes of SBP, hepatic encephalopathy, gastric varix bleed requiring gastric artery coiling
procedure September 2024 comes in with abdominal pain, elevated lactate, paracentesis again shows SBP. Had 1 episode of coughing blood December 19. On discussion with patient he did not vomit but rather coughed up blood. He has required 6 units of
blood intermittently throughout the hospitalization. He has also known portal hypertensive gastropathy. He also had some TYSON on admission which has improved. He follows with Dr. Dan at [place]. Plan for repeat paracentesis today. Monitor for
any further overt bleeding or drop in hemoglobin as would require another endoscopy. Stools have been brown per report both December 19 and December 20. Ultimately, patient will be discharged with outpatient follow-up at [place] to determine
long-term plan with recurrent SBP. Overall poor prognosis hospice has been discussed.
Original Note:
Today's Communication / Plan
-
no further vomiting/coughing up clots
AM labs pending
for para today with cell count and cx-- nursing to call for albumin orders if needed
cont abx per ID plan for continued OP abx 4- 6 weeks and follow up with [place] ID per review with Dr. Dan 12/18
hbg 7.4 12/20 repeat pending total 6 units transfused since admission last transfusion 12/19
-Continue Xifaxan and lactulose
cont 2 gram na diet
to resume OP para weekly schedule on discharge
-Daily weights
-renal following for ability to resume diuretics
pt will need follow up with Dr. Dan, ID at [place], psych as he is due this afternoon as he still wishes to proceed with aggressive care with cirrhosis
pt is high risk for readmission with continued decompensated liver disease with ongoing anemia, SBP, hospice as been discussed in past but pt states still wants aggressive care
I updated 12/18
Assessment / Plan
-
59 y.o male well-known to GI group with past medical history significant for decompensated cirrhosis (HCV vs EtOH) with intractable ascites with weekly para, HE, GI bleeding by recurrent hospitalizations with HE secondary to acute on chronic GI
bleeding 2/2 PHG gastric varix, hx of prior post-polypectomy bleed, prior transfer to [place] for Ultrasound guided gastric artery coiling procedure (09/2024), chronic HCV (s/p treatment with Epclusa s/p SVR), CVA, HTN, COPD, and chronic
thrombocytopenia. Last EGD 11/16/2024 with oozing portal hypertensive gastropathy treated with APC. Hx of recurrent SBP, ecoli ESBL blood/peritoneal fluid, intermediate to doxycycline and required IV ertapenem via midline as an outpatient until
12/06/24. Who comes back to the emergency room with fevers and abdominal pain, elevated lactic acid and paracentesis with WBC cells 10,000 consistent with recurrent SBP. Blood cultures x 2 positive for gram-negative bacilli. Per review of ID noted
He has failed multiple courses of antibiotic including Ertapenem x 10 d followed by doxycycline suppressive therapy; Ertapenem x 14days; more recently Ertapenem x 21 days completed 12/06/24,now with relapse of SBP, bacteremia within 7 days. There is
no oral abx option for suppressive therapy. Lifelong IV antibiotic is not an option. 12/19 noted with vomiting/coughing up clots x 1 episode.
Impression:
Decompensated cirrhosis-- 12/20 MELD 3.0 21
Recurrent SBP finished 3 course of IV abx 10 days then Doxy, 14 days and last 21 days with ertapenem IV until 12/06/2024 now restarted 12/15
--Paracentesis with WBC cells 10,000 repeat 12/18 with 4211 for repeat today
--ascites fluid ESBL/E Coli
--completed Albumin day 1 and 3
episode of coughing/vomiting clots of red blood 12/19 -- last EGD 11/2024 with oozing portal gastropathy- no recurrence
chronic anemia requiring transfusions
hx HE remains on Lactulose TID and Xifaxan BID
ESBL/E Coli bacteremia-recurrent, continues on Meropenem
-repeat blood cultures neg for 48 hours
Hypotension-> improved , now on Midodrine 2.5 mg TID
TYSON-on admission now improved , baseline is usually 0.7
hypokalemia- improved 12/20
Plan:
no further vomiting/coughing up clots
AM labs pending
for para today with cell count and cx-- nursing to call for albumin orders if needed
cont abx per ID plan for continued OP abx 4- 6 weeks and follow up with [place] ID per review with Dr. Dan 12/18
hbg 7.4 12/20 repeat pending total 6 units transfused since admission last transfusion 12/19
-Continue Xifaxan and lactulose
cont 2 gram na diet
to resume OP para weekly schedule on discharge
-Daily weights
-renal following for ability to resume diuretics
pt will need follow up with Dr. Dan, ID at [place], [facility] as he is due this afternoon as he still wishes to proceed with aggressive care with cirrhosis
pt is high risk for readmission with continued decompensated liver disease with ongoing anemia, SBP, hospice as been discussed in past but pt states still wants aggressive care
I updated 12/18
Subjective
Subjective
Date of Service: December 21, 2024
AM labs pending on 2 gram na diet
Objective
Data Reviewed
Laboratory Data:
Laboratory Results
PT 20.9 Sec (11.4-14.6) H 12/20/24 03:43
INR 1.75 12/20/24 03:43
Total Bilirubin 4.2 mg/dl (0.2-1.3) H 12/20/24 03:43
AST 32 U/L (17-59) 12/20/24 03:43
ALT 16 U/L (0-50) 12/20/24 03:43
Alkaline Phosphatase 88 U/L (38-126) 12/20/24 03:43
Vital Signs and I&O:
Vital Signs
Temp Pulse Resp BP Pulse Ox
99.6 F 95 14 132/59 95
12/20/24 23:04 12/20/24 23:04 12/20/24 23:04 12/20/24 23:04 12/20/24 23:04
I&O
12/20/24 12/21/24 12/22/24
06:59 06:59 06:59
Intake Total 2664 / 2664 1200 / 1200
Output Total 400 / 400 475 / 475
Balance 2264 / 2264 725 / 725
Physical Exam
Physical Exam
HEENT: Other (jaundice )
Cardiology: Normal Sinus Rhythm
Pulmonary: Clear
GI: Soft, Distended and Tender (mild )
Extremities: No Edema
Neuro: Non Focal
[2024-12-21 08:30] LABS: INR 1.64; PT 19.6 Sec (11.4-14.6)
[2024-12-21 08:31] LABS: % Basophils 0.4 % (0-2); % Eosinophils 4.6 % (0-6); % Immature Granulocytes 1.7 % (0-0.5); % Lymphocytes 13.9 % (20.5-51.1); % Monocytes 9.6 % (1.7-9.3); % Neutrophils 69.8 % (42.2-75.2); Absolute Eosinophils 0.2 10^3/uL (0-0.7); Absolute Immature Granulocytes 0.1 10^3/uL (0-0.05); Absolute Lymphocytes 0.6 10^3/uL (1.2-3.4); Absolute Monocytes 0.4 10^3/uL (0.1-0.6); Absolute Neutrophils 3.2 10^3/uL (1.4-6.5); Hematocrit 24.3 % (39.0-52.0); Hemoglobin 8.1 g/dL (13.0-18.0); Mean Corp Hgb Conc. 33.3 g/dL (33.0-37.0); Mean Corpuscular Volume 93.1 fL (80.0-94.0); Mean Platelet Volume 10.2 fL (7.4-10.4); Nucleated Red Blood Cells % 0 % (-); Platelet Count 50 10^3/uL (130-400); Red Blood Cell Count 2.61 10^6/uL (4.70-6.10); Red Cell Dist. Width 17.6 % (11.5-14.5); White Blood Cell Count 4.6 10^3/uL (4.8-10.8)
[2024-12-21 08:59] LABS: ALT (SGPT) 15 U/L (0-50); AST (SGOT) 29 U/L (17-59); Albumin 2.9 g/dl (3.5-5.0); Alkaline Phosphatase 71 U/L (38-126); Blood Urea Nitrogen 19 mg/dl (9-20); Calcium 7.4 mg/dl (8.4-10.2); Carbon Dioxide 24 mmol/L (22-30); Chloride 102 mmol/L (98-107); Estimated Creatinine Clearance > 125 ml/min; Glucose 145 mg/dl (70-99); Potassium 3.8 mmol/L (3.5-5.1); Sodium 133 mmol/L (135-145); Total Bilirubin 4.3 mg/dl (0.2-1.3); Total Protein 4.5 g/dl (6.3-8.2); eGFR > 60.00
--- NOTE | 2024-12-21 11:06 | W.PN.ID1 ---
Date of Service
Date of Service: December 21, 2024
Today's Communication
Continue antibiotics.
Assessment / Plan
Recurrent SBP 2* ESBL E. coli.
Bacteremia with ESBL E. coli.
Decompensated end-stage cirrhosis with recurrent ascites, weekly paracentesis
shock: hemorrhagic vs septic or both, resolved
TYSON
- resolved
Acute on chronic anemia. CT a/p no hematoma
Recommendations:
Etiology of recurrence is not immediately clear, but likely related to ESLD (including changes in humoral immunity, decreased synthesis and complement).
Repeat blood cx's : negative
Follow temps, wbc
Continue ertapenem; will tx for 4 to 6 weeks. IV sheet given to Case management.
GI has been in touch with transplant service at [facility]. Patient reportedly also to be evaluated by ID there.
Overall poor prognosis
����������������������������������������������������������
Chief Complaint
-: Bacteremia and Other (SBP (recurrent))
Subjective / Review of Systems
Review of Systems: No Fever, No Chills and Abdominal Pain ((discomfort))
Vital Signs / Physical Exam
Vital Signs
Vital Signs
Temp Pulse Resp BP Pulse Ox
98.6 F 93 17 144/71 98
12/21/24 07:15 12/21/24 07:15 12/21/24 07:15 12/21/24 07:15 12/21/24 07:15
Physical Exam
Constitutional: No Acute Distress, Comfortable, Chronically Ill and Non-toxic
Head: Normocephalic
Eyes: Sclera Anicteric and Other (mild scleral icterus noted.)
Cardiovascular: S1/S2; Negative S3/S4
Pulmonary: Clear and Non Labored
Gastrointestinal: Soft, Tender and Distended
Extremities: Edema; Negative Cyanosis or Erythema
Neurological: AO x 3
Psychological: Calm
Lines: PICC (RUE)
Objective Data
Lab Data
Lab Results
12/21/24 08:14
12/21/24 08:14
PT 19.6 Sec (11.4-14.6) H 12/21/24 08:14
INR 1.64 12/21/24 08:14
Estimated Creat Clear > 125 ml/min 12/21/24 08:14
Lactic Acid 5.5 mmol/L (0.7-2.0) H* 12/14/24 10:12
Total Bilirubin 4.3 mg/dl (0.2-1.3) H 12/21/24 08:14
GGT 15 U/L (15-73) 12/15/24 06:47
AST 29 U/L (17-59) 12/21/24 08:14
ALT 15 U/L (0-50) 12/21/24 08:14
Alkaline Phosphatase 71 U/L (38-126) 12/21/24 08:14
Most recent labs reviewed.
Micro Results:
12/16/24 06:06 Blood Culture - Preliminary
Blood/Venous No Growth in 4 days- Final report to follow
12/16/24 11:19 Blood Culture - Preliminary
Blood/Venous No Growth in 4 days- Final report to follow
12/16/24 11:00 Blood Culture - Preliminary
Blood/Venous No Growth in 4 days- Final report to follow
12/18/24 14:37 Body Fluid Culture - Preliminary
Peritoneal Fluid No Growth After 48 Hours
Gram Stain - Preliminary
12/14/24 07:57 Body Fluid Culture - Final
Peritoneal Fluid Escherichia coli - ESBL
Gram Stain - Final
12/14/24 06:25 Blood Culture - Final
Blood/Venous Escherichia coli - ESBL
Gram Stain - Final
12/14/24 06:25 Blood Culture - Final
Blood/Venous Escherichia coli - ESBL
Gram Stain - Final
Laboratory Tests
Ascites Fluid 12/10/24 12/14/2425
08:09 07:57 14:37
Fluid WBC 48 27994 4211
Fluid Mononuclear Cell 98.0 11.9 15.2
Fl Polymorphonucl Cell 2.0 88.1 84.8
Imaging:
12/15/24 CT a/p: No CT evidence for a hematoma in the abdomen or pelvis. Hepatic cirrhosis with secondary findings of portal hypertension including splenomegaly and moderate abdominopelvic ascites. Ascites measures simple fluid attenuation. Large
right inguinal hernia containing ascites.
--- NOTE | 2024-12-21 12:41 | CM ---
Patient seen at bedside.
Paracentesis today
LM with Natalie at [facility] regarding patient not dc today
PLAN: Home, IV antibiotic (Ertapenam 1 gm IV q24h)
family to transport
[2024-12-21 13:20] VITALS: BP 135/71; BP_SYST 89
--- NOTE | 2024-12-21 13:45 | W.PN.NEPH.PH ---
Today's Communication / Plan
-
pending par
Assessment/Plan
-
Assessment
TYSON
Hyponatremia
Hypoalbuminemia
ESLD
Gram-negative bacilli bacteremia
Ascites
anemia
COPD
Thrombocytopenia
Coagulopathy
Plan
sodium stable at 132 on fluid restriction of 48 ounce
TYSON likely a function of prerenal stimulus in the setting of decompensated cirrhosis and hemodynamic instability
Creatinine improved to 0.6 nonoliguric
Maintain MAP greater than 65, albumin provided, continue midodrine 2.5mg TID
Status post paracentesis for 4500 cc 12/18/24, for repeat today
Transfuse packed red blood cells as needed (status post 3 units of packed red blood cells provided)
Maintains on meropenem for SBP
Follow BMP
Still holding Lasix at this time weight stable
urine studies consistent with prerenal (anemia + liver decompensation)
-
-
Date of Service: December 21, 2024
CC / HPI / ROS
-
Chief Complaint:
TYSON
History of Present Illness:
TYSON resolved
hemodyamically stable on midodrine support
Status post paracentesis for 4500 cc on 12/18/2024
Sodium stable 132
Review of Systems:
non oliguric
no fevers
Weight stable
Labs
-
Labs:
WBC 4.6 10^3/uL (4.8-10.8) L 12/21/24 08:14
RBC 2.61 10^6/uL (4.70-6.10) L 12/21/24 08:14
Hgb 8.1 g/dL (13.0-18.0) L 12/21/24 08:14
Hct 24.3 % (39.0-52.0) L 12/21/24 08:14
Plt Count 50 10^3/uL (130-400) L 12/21/24 08:14
Sodium 133 mmol/L (135-145) L 12/21/24 08:14
Potassium 3.8 mmol/L (3.5-5.1) 12/21/24 08:14
Chloride 102 mmol/L (98-107) 12/21/24 08:14
Carbon Dioxide 24 mmol/L (22-30) 12/21/24 08:14
BUN 19 mg/dl (9-20) 12/21/24 08:14
Creatinine 0.6 mg/dL (0.7-1.3) L 12/21/24 08:14
eGFR > 60.00 12/21/24 08:14
Glucose 145 mg/dl (70-99) H 12/21/24 08:14
Calcium 7.4 mg/dl (8.4-10.2) L 12/21/24 08:14
Albumin 2.9 g/dl (3.5-5.0) L 12/21/24 08:14
Physical Exam
-
Vital Signs:
Vital Signs
Temp Pulse Resp BP Pulse Ox
98.6 F 93 17 144/71 98
12/21/24 07:15 12/21/24 07:15 12/21/24 07:15 12/21/24 07:15 12/21/24 07:15
Cardiovascular:: Regular rate and rhythm
Respiratory:: Bilateral: CTA
Lung Excursion:: Normal
Abdomen:: Distended
Bowel Sounds:: Decreased
Extremity Edema:: None: Bilateral:
Stevens Catheter: No
[2024-12-21 13:50] VITALS: BP 124/60
[2024-12-21] MEDS: ProAmatine PO (14:25)
[2024-12-21 15:10] VITALS: BP 132/65
--- NOTE | 2024-12-21 15:13 | W.PN.HOSP.TC ---
Today's Communication/Plan
-
Continue IV antibiotics for persistent E. coli ESBL peritonitis.
Repeat paracentesis today and follow WBC/ANC count.
Albumin with paracentesis
Continue midodrine and follow renal function closely.
Consider to restart diuretics if stable renal function at discharge.
Plan is to discharge on IV antibiotics. PICC line placed.
Assessment / Plan
Assessment / Plan
Sepsis due to recurrent SBP -sepsis improving. Lactic acidosis from sepsis noted. Responding to antibiotics. Currently on IV meropenem per ID. Blood and ascitic fluid cultures show gram-negative bacilli, speciation pending.
Both September 2024 and November 2024 blood cultures and fluid cultures showed ESBL E. coli.
At this point he is out of options and infectious disease is recommending hospice. No good oral suppressive antibiotic options available. Patient not interested in hospice currently.
Patient is currently getting evaluated by [facility] for liver transplant. Has an virtual appointment with them this Tuesday the .
Status post paracentesis 4500 mL on 12/18. Ascitic fluid with trending down WBC/ANC count
Status post albumin infusion on 12/18
Repeat paracentesis on 12/21
TYSON -now improving, creatinine 2.3�1.0. Blood pressure improved on midodrine. Nephrology following.
Diuretics on hold.
Please check daily weights.
Acute on chronic anemia heme positive stool. Known variceal disease.. No evidence of bleeding on CT abdomen. No evidence of hemolysis. LDH is normal. Monitor closely. Transfuse to keep hemoglobin above 7.5
Episode of hemoptysis/hematemesis on 12/19, self-limited. Monitor closely.
Decompensated cirrhosis -presentation with recurrent ascites and SBP. Last paracentesis was December 14, 4 L removed in the emergency room. IV albumin per GI service.
Intractable abdominal pain -likely due to acute peritonitis, SBP. Getting IV Dilaudid as needed. Abdominal pain overall improving.
ESLD
Hyponatremia -sodium 134 this morning.
Pancytopenia -WBC count currently normal, platelet count 54,000. Etiology of pancytopenia due to ESLD.
History of GI bleed
COPD without exacerbation
Gastric varices
Portal hypertensive gastropathy
Full code
Prognosis unfortunately remains poor.
Anticipated Discharge: 24 - 48 hours
Subjective/Interval History
-
Date of Service: December 21, 2024
Objective Data
-
Labs:
Laboratory Results
12/21/24
08:14
WBC 4.6 L
Hgb 8.1 L
Hct 24.3 L
Plt Count 50 L
PT 19.6 H
INR 1.64
Sodium 133 L
Potassium 3.8
Chloride 102
Carbon Dioxide 24
BUN 19
Creatinine 0.6 L
Glucose 145 H
Calcium 7.4 L
Total Bilirubin 4.3 H
AST 29
ALT 15
Alkaline Phosphatase 71
Vital Signs:
Vital Signs
Temp Pulse Resp BP Pulse Ox
98.4 F 84 16 124/60 98
12/21/24 13:20 12/21/24 13:50 12/21/24 13:50 12/21/24 13:50 12/21/24 13:20
I&O
12/20/24 12/21/24 12/22/24
06:59 06:59 06:59
Intake Total 2664 / 2664 1200 / 1200
Output Total 400 / 400 475 / 475
Balance 2264 / 2264 725 / 725
Physical Exam
-
General: Well Developed and No Apparent Distress
HEENT: Normocephalic, Atraumatic and Moist Mucous Membranes
Respiratory: Clear to Auscultation
Cardiac: Regular Rhythm and S1/S2; Negative Murmur, Rub or Gallop
GI: Soft, Normal Bowel Sounds, Tender and Distended; Negative Organomegaly
Rectal: Deferred by Provider
Musculoskeletal: No Clubbing, No Cyanosis and No Edema
Skin: Negative Rash
Neuro: Awake, Alert, Oriented, AO x 3 and Nonfocal/Grossly Intact
[2024-12-21] MEDS: FLEXBUMIN 100 IV (17:45)
[2024-12-21 18:08] LABS: Body Fluid Mononuclear 58.5 %; Body Fluid Polymorphonuclear 41.5 %; Body Fluid WBC 528 /CUMM
[2024-12-21 18:15] LABS: Body Fluid Second Tech HB
[2024-12-21] MEDS: DESENEX/MITRAZOL/ZEASORB 1 APPLIC TOPICAL (20:54)
[2024-12-21] MEDS: PREPARATION H OINTMENT 1 APPLIC RECTAL (21:00)
[2024-12-21] MEDS: FLEXBUMIN 50 IV (23:36)
[2024-12-21 23:44] VITALS: BP 120/62
[2024-12-22] MEDS: DILAUDID 0.5 MG IV ×5 (01:30→14:44)
[2024-12-22] MEDS: ANESTHETIC LOZENGE 1 LOZENGE PO ×4 (01:31→16:09)
[2024-12-22] MEDS: STERILE WATER FOR INJECTION 10 ML IV ×2 (05:34→11:19)
[2024-12-22] MEDS: MERREM 500 MG IV ×2 (05:34→11:17)
[2024-12-22 05:56] VITALS: BMI 23.2
[2024-12-22 07:15] VITALS: BP 136/67
[2024-12-22] MEDS: SYMBICORT 160/4.5 MCG INHALER INH (07:27)
[2024-12-22] MEDS: SPIRIVA RESPIMAT 2.5 MCG INH (07:27)
[2024-12-22] MEDS: DUPHALAC/CHRONULAC 20 GRAMS PO ×2 (08:00→16:08)
[2024-12-22] MEDS: MAG-TAB SR 84 MG PO (08:05)
[2024-12-22] MEDS: FOLVITE 1 MG PO (08:05)
[2024-12-22] MEDS: PROTONIX IV 40 MG IV (08:05)
[2024-12-22] MEDS: ProAmatine 2.5 MG PO ×2 (08:05→13:11)
[2024-12-22] MEDS: ZINC 50 MG PO (08:05)
[2024-12-22] MEDS: VITAMIN B1 100 MG PO (08:05)
[2024-12-22] MEDS: XIFAXAN 550 MG PO (08:05)
[2024-12-22] MEDS: NSS (PRESERVATIVE FREE) 10 ML IV (08:05)
[2024-12-22] MEDS: FLUSH (NSS) 2 FLUSH IV ×3 (08:15→14:45)
[2024-12-22] MEDS: PREPARATION H OINTMENT RECTAL (08:16)
[2024-12-22] MEDS: DESENEX/MITRAZOL/ZEASORB 1 APPLIC TOPICAL (08:22)
[2024-12-22 09:54] LABS: % Basophils 0.4 % (0-2); % Eosinophils 3.3 % (0-6); % Lymphocytes 12.3 % (20.5-51.1); Absolute Eosinophils 0.2 10^3/uL (0-0.7); Absolute Immature Granulocytes 0.1 10^3/uL (0-0.05); Absolute Lymphocytes 0.6 10^3/uL (1.2-3.4); Absolute Monocytes 0.4 10^3/uL (0.1-0.6); Absolute Neutrophils 3.8 10^3/uL (1.4-6.5); Hematocrit 24.1 % (39.0-52.0); Hemoglobin 7.9 g/dL (13.0-18.0); Mean Corp Hgb Conc. 32.8 g/dL (33.0-37.0); Mean Corpuscular Hgb 30.5 pg (27.0-31.0); Mean Corpuscular Volume 93.1 fL (80.0-94.0); Mean Platelet Volume 10.6 fL (7.4-10.4); Nucleated Red Blood Cells % 0 % (-); Platelet Count 57 10^3/uL (130-400); Red Blood Cell Count 2.59 10^6/uL (4.70-6.10); Red Cell Dist. Width 17.3 % (11.5-14.5); White Blood Cell Count 5.1 10^3/uL (4.8-10.8)
[2024-12-22 10:21] LABS: Blood Urea Nitrogen 13 mg/dl (9-20); Calcium 7.5 mg/dl (8.4-10.2); Carbon Dioxide 25 mmol/L (22-30); Chloride 100 mmol/L (98-107); Estimated Creatinine Clearance > 125 ml/min; Glucose 111 mg/dl (70-99); Potassium 3.7 mmol/L (3.5-5.1); Sodium 133 mmol/L (135-145); eGFR > 60.00
--- NOTE | 2024-12-22 10:37 | CM ---
Addendum entered by Inge Clayton 12/22/24 12:37:
Spoke with Leticia/Holly Thibodeaux OK to dc home today on their end delivery is set.
Original Note:
Per Natalie/Holly Thibodeaux. Pt is known to their service and recieved teaching at bedside. Pt can dc after today's dose if they can get confirmation of dc they will speak with pt about drug delivery for today and pt can start at home tomorrow with
tomorrow's dose.
--- NOTE | 2024-12-22 11:20 | W.PN.ID1 ---
Date of Service
Date of Service: December 22, 2024
Today's Communication
Continue antibiotics.
Assessment / Plan
Recurrent SBP 2* ESBL E. coli.
Bacteremia with ESBL E. coli.
Decompensated end-stage cirrhosis with recurrent ascites, weekly paracentesis
shock: hemorrhagic vs septic or both, resolved
TYSON
- resolved
Acute on chronic anemia. CT a/p no hematoma
Recommendations:
Etiology of recurrence of SBP / bacteremia is not immediately clear, but likely related to ESLD (including changes in humoral immunity, decreased synthesis and complement).
Repeat blood cx's : negative
Follow temps, wbc
Continue ertapenem; will tx for 4 to 6 weeks. IV sheet given to Case management.
GI has been in touch with transplant service at [facility]. Patient reportedly also to be evaluated by ID there.
Overall poor prognosis
����������������������������������������������������������
Chief Complaint
-: Bacteremia and Other (SBP (recurrent))
Subjective / Review of Systems
Review of Systems: No Fever
Vital Signs / Physical Exam
Vital Signs
Vital Signs
Temp Pulse Resp BP Pulse Ox
99.0 F 88 18 136/67 97
12/22/24 07:15 12/22/24 07:15 12/22/24 07:15 12/22/24 07:15 12/22/24 07:15
Physical Exam
Constitutional: No Acute Distress, Comfortable, Chronically Ill and Non-toxic
Pulmonary: Non Labored
Gastrointestinal: Distended and Normal Bowel Sounds
Extremities: Edema; Negative Cyanosis or Erythema
Psychological: Calm
Lines: PICC (RUE)
Objective Data
Lab Data
Lab Results
12/22/24 09:02
12/22/24 09:02
PT 19.6 Sec (11.4-14.6) H 12/21/24 08:14
INR 1.64 02/14/25 08:14
Estimated Creat Clear > 125 ml/min 12/22/24 09:02
Lactic Acid 5.5 mmol/L (0.7-2.0) H* 12/14/24 10:12
Total Bilirubin 4.3 mg/dl (0.2-1.3) H 12/21/24 08:14
GGT 15 U/L (15-73) 12/15/24 06:47
AST 29 U/L (17-59) 12/21/24 08:14
ALT 15 U/L (0-50) 12/21/24 08:14
Alkaline Phosphatase 71 U/L (38-126) 12/21/24 08:14
Most recent labs reviewed.
Micro Results:
12/21/24 13:37 Body Fluid Culture - Pending
Peritoneal Fluid Gram Stain - Preliminary
12/16/24 06:06 Blood Culture - Final
Blood/Venous No Growth - Final Report
12/18/24 14:37 Body Fluid Culture - Final
Peritoneal Fluid No Growth After 72 Hours
Gram Stain - Final
12/16/24 11:19 Blood Culture - Final
Blood/Venous No Growth - Final Report
12/16/24 11:00 Blood Culture - Final
Blood/Venous No Growth - Final Report
12/14/24 07:57 Body Fluid Culture - Final
Peritoneal Fluid Escherichia coli - ESBL
Gram Stain - Final
12/14/24 06:25 Blood Culture - Final
Blood/Venous Escherichia coli - ESBL
Gram Stain - Final
12/14/24 06:25 Blood Culture - Final
Blood/Venous Escherichia coli - ESBL
Gram Stain - Final
Laboratory Tests
Ascites Fluid 12/10/24 12/14/24 12/18/24
08:09 07:57 14:37
Fluid WBC 48 15785 4211
Fluid Mononuclear Cell 98.0 11.9 15.2
Fl Polymorphonucl Cell 2.0 88.1 84.8
Imaging:
12/15/24 CT a/p: No CT evidence for a hematoma in the abdomen or pelvis. Hepatic cirrhosis with secondary findings of portal hypertension including splenomegaly and moderate abdominopelvic ascites. Ascites measures simple fluid attenuation. Large
right inguinal hernia containing ascites.
Care Review
Plan reviewed with: Physician (GI)
--- NOTE | 2024-12-22 12:02 | W.PN.HOSP.TC ---
Today's Communication/Plan
-
dc home with OP infusions
Assessment / Plan
Assessment / Plan
Sepsis due to recurrent SBP -sepsis improving. Lactic acidosis from sepsis noted. Responding to antibiotics. Currently on IV meropenem per ID. Blood and ascitic fluid cultures show gram-negative bacilli, speciation pending.
Both September 2024 and November 2024 blood cultures and fluid cultures showed ESBL E. coli.
At this point he is out of options and infectious disease is recommending hospice. No good oral suppressive antibiotic options available. Patient not interested in hospice currently.
Patient is currently getting evaluated by [facility] for liver transplant. Has an virtual appointment with them this Tuesday the .
Status post paracentesis 4500 mL on 12/18. Ascitic fluid with trending down WBC/ANC count
Status post albumin infusion on 12/18
Repeat paracentesis on 12/21 with 4300 mL removed.
TYSON -now improving, creatinine 2.3�1.0. Blood pressure improved on midodrine. Nephrology following.
per Nephrology resume Aldactone, hold Lasix at discharge.
Please check daily weights.
Acute on chronic anemia heme positive stool. Known variceal disease.. No evidence of bleeding on CT abdomen. No evidence of hemolysis. LDH is normal. Monitor closely. Transfuse to keep hemoglobin above 7.5
Episode of hemoptysis/hematemesis on 12/19, self-limited. Monitor closely.
Decompensated cirrhosis -presentation with recurrent ascites and SBP. Last paracentesis was December 14, 4 L removed in the emergency room. IV albumin per GI service.
Intractable abdominal pain -likely due to acute peritonitis, SBP. Getting IV Dilaudid as needed. Abdominal pain overall improving.
ESLD
Hyponatremia -sodium 134 this morning.
Pancytopenia -WBC count currently normal, platelet count 54,000. Etiology of pancytopenia due to ESLD.
History of GI bleed
COPD without exacerbation
Gastric varices
Portal hypertensive gastropathy
Full code
Prognosis unfortunately remains poor.
More than 30 minutes spent in discharge including
Final examination of the patient
Summarizing hospital stay
Instructions for continuing care to all relevant caregivers
Preparation of discharge records, prescriptions, and referral forms
Total time spent (in minutes):41
Anticipated Discharge: Today
Subjective/Interval History
-
Date of Service: December 22, 2024
denies any new complaints at present
Objective Data
-
Labs:
Laboratory Results
12/22/24
09:02
WBC 5.1
Hgb 7.9 L
Hct 24.1 L
Plt Count 57 L
Sodium 133 L
Potassium 3.7
Chloride 100
Carbon Dioxide 25
BUN 13
Creatinine 0.5 L
Glucose 111 H
Calcium 7.5 L
Vital Signs:
Vital Signs
Temp Pulse Resp BP Pulse Ox
99.0 F 88 18 136/67 97
12/22/24 07:15 12/22/24 07:15 12/22/24 07:15 12/22/24 07:15 12/22/24 07:15
I&O
12/21/24 12/22/24 12/23/24
06:59 06:59 06:59
Intake Total 1200 / 1200 1560 / 1560
Output Total 475 / 475
Balance 725 / 725 1560 / 1560
Physical Exam
-
General: No Apparent Distress
HEENT: Normocephalic and Atraumatic
Respiratory: Negative Wheezes
Cardiac: Regular Rhythm and S1/S2
GI: Soft
Genito-urinary: No Costovertebral Tender
Neuro: AO x 3
Psych: Calm
Data Reviewed
-
Total Time Spent with Patient (in minutes): 41
Labs: Labs Reviewed by me
--- NOTE | 2024-12-22 12:14 | W.PN.NEPH.PH ---
Today's Communication / Plan
-
Okay for discharge from renal standpoint on Aldactone. Hold Lasix.
No follow-up from renal standpoint outpatient needed
Assessment/Plan
-
Assessment
TYSON
Hyponatremia
Hypoalbuminemia
ESLD
Gram-negative bacilli bacteremia
Ascites
anemia
COPD
Thrombocytopenia
Coagulopathy
Plan
sodium stable at 132 on fluid restriction of 48 ounce
TYSON likely a function of prerenal stimulus in the setting of decompensated cirrhosis and hemodynamic instability
Creatinine improved to 0.6 nonoliguric
Maintain MAP greater than 65, albumin provided, continue midodrine 2.5mg TID
Status post paracentesis for 4500 cc 12/18/24, for repeat today
Transfuse packed red blood cells as needed (status post 3 units of packed red blood cells provided)
Maintains on meropenem for SBP
Follow BMP
Still holding Lasix at this time weight stable
urine studies consistent with prerenal (anemia + liver decompensation)
Okay with discharge from renal standpoint.
I would discharge on Aldactone only. Okay to hold Lasix as patient has no lower extremity edema.
No follow-up needed from a renal standpoint and can follow-up with his liver specialist and primary care doctor
-
-
Date of Service: December 22, 2024
CC / HPI / ROS
-
Chief Complaint:
TYSON
History of Present Illness:
TYSON resolved
hemodyamically stable on midodrine support
Status post paracentesis for 4500 cc on 12/18/2024
Sodium stable 132
Review of Systems:
non oliguric
no fevers
Weight stable
Labs
-
Labs:
WBC 5.1 10^3/uL (4.8-10.8) 12/22/24 09:02
RBC 2.59 10^6/uL (4.70-6.10) L 12/22/24 09:02
Hgb 7.9 g/dL (13.0-18.0) L 12/22/24 09:02
Hct 24.1 % (39.0-52.0) L 12/22/24 09:02
Plt Count 57 10^3/uL (130-400) L 12/22/24 09:02
Sodium 133 mmol/L (135-145) L 12/22/24 09:02
Potassium 3.7 mmol/L (3.5-5.1) 12/22/24 09:02
Chloride 100 mmol/L (98-107) 12/22/24 09:02
Carbon Dioxide 25 mmol/L (22-30) 12/22/24 09:02
BUN 13 mg/dl (9-20) 12/22/24 09:02
Creatinine 0.5 mg/dL (0.7-1.3) L 12/22/24 09:02
eGFR > 60.00 12/22/24 09:02
Glucose 111 mg/dl (70-99) H 12/22/24 09:02
Calcium 7.5 mg/dl (8.4-10.2) L 12/22/24 09:02
Albumin 2.9 g/dl (3.5-5.0) L 12/21/24 08:14
Physical Exam
-
Vital Signs:
Vital Signs
Temp Pulse Resp BP Pulse Ox
99.0 F 88 18 136/67 97
12/22/24 07:15 12/22/24 07:15 12/22/24 07:15 12/22/24 07:15 12/22/24 07:15
Cardiovascular:: Regular rate and rhythm
Respiratory:: Bilateral: CTA
Lung Excursion:: Normal
Abdomen:: Distended
Bowel Sounds:: Decreased
Extremity Edema:: None: Bilateral:
Stevens Catheter: No
--- NOTE | 2024-12-22 12:15 | W.PN.GI.CBS2 ---
Today's Communication / Plan
-
resume diuretics, monitor Cr, outpatient follow up at [place] planning, gi signing off
Assessment / Plan
-
59-year-old gentleman well-known to our service with history of decompensated cirrhosis hep C versus alcohol with intractable ascites and multiple episodes of SBP, hepatic encephalopathy, gastric varix bleed requiring gastric artery coiling
procedure September 2024 comes in with abdominal pain, elevated lactate, paracentesis again shows SBP. Had 1 episode of coughing blood December 19. On discussion with patient he did not vomit but rather coughed up blood. He has required 6 units of
blood intermittently throughout the hospitalization. He has also known portal hypertensive gastropathy. He also had some TYSON on admission which has improved. He follows with Dr. Dan at [place]. Repeat para yesterday shows improvement. I
resumed lasix 20 and aldactone 12.5 monitor Cr - if discharged recommend BMP in 1 week. Monitor for any further overt bleeding or drop in hemoglobin as would require another endoscopy. Stools have been brown per report both December 19 and
December 20. Ultimately, patient will be discharged with outpatient follow-up at [place] to determine long-term plan with recurrent SBP. Overall poor prognosis hospice has been discussed.
D/c planning. GI will sign off. Pls call with ?s.
Subjective
Subjective
Date of Service: December 22, 2024
para done yesterday
pt able to go to [facility] appt
no complaints
Objective
Data Reviewed
Laboratory Data:
Laboratory Results
12/22/24 09:02
12/22/24 09:02
Laboratory Results
PT 19.6 Sec (11.4-14.6) H 12/21/24 08:14
INR 1.64 12/21/24 08:14
Total Bilirubin 4.3 mg/dl (0.2-1.3) H 12/21/24 08:14
AST 29 U/L (17-59) 12/21/24 08:14
ALT 15 U/L (0-50) 12/21/24 08:14
Alkaline Phosphatase 71 U/L (38-126) 12/21/24 08:14
Vital Signs and I&O:
Vital Signs
Temp Pulse Resp BP Pulse Ox
99.0 F 88 18 136/67 97
12/22/24 07:15 12/22/24 07:15 12/22/24 07:15 12/22/24 07:15 12/22/24 07:15
I&O
12/21/24 12/22/24 12/23/24
06:59 06:59 06:59
Intake Total 1200 / 1200 1560 / 1560
Output Total 475 / 475
Balance 725 / 725 1560 / 1560
Physical Exam
Physical Exam
HEENT: Anicteric
Cardiology: Normal Sinus Rhythm
GI: Distended and Non Tender
--- NOTE | 2024-12-22 12:16 | W.DS.TRANS ---
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
-
Discharge Instructions:
Discharge Diagnosis/Procedures sepsis, recurrent SBP, bacteremia, TYSON improved
Diet Restrict fluids to 48 oz,2 Gram Sodium
Activity As tolerated
Bathing Restrictions None
Other Services VN
Instructions:
Stand-Alone Forms:
Changes to Home Medications: No
Discharge Medications:
DC Medications w/original date entered in [employer]
thiamine HCl (vitamin B1) 100 mg tablet 100 mg PO DAILY Supplement 03/13/24
budesonide 160 mcg-glycopyr 9 mcg-formot 4.8 mcg/actuation HFA inhaler (Breztri Aerosphere) 2 inh inhalation R BID Lung/Breathing Issues 04/11/24
magnesium oxide 400 mg PO BID Supplement 06/28/24
rifaximin 550 mg tablet (Xifaxan) 550 mg PO BID hepatic encephalopathy 06/28/24
pantoprazole 40 mg tablet,delayed release (Protonix) 40 mg PO BID Gastrointestinal Issue 08/02/24
lidocaine 4 % topical patch 1 patch topical DAILYPRN PRN right knee and right shoulder 09/08/24
miconazole nitrate 2 % topical powder (Miconazorb AF) 1 applic topical BID groin/scrotum 09/08/24
ondansetron HCl 4 mg tablet 4 mg PO DAILYPRN PRN nasuea 09/08/24
phenylephrine 0.25 %-mineral oil 14 %-petrolatm 74.9 % rectal ointment (Hemorrhoidal(phenyleph-min oil-petrolat)) 1 applic TN BID hemorrhoids 09/26/24
tramadol 50 mg tablet 50 mg PO BIDPRN PRN moderate-severe pain 09/26/24
folic acid 1 mg tablet 1 mg PO DAILY #30 tabs 10/23/24
nicotine 7 mg/24 hr daily transdermal patch 7 mg transdermal DAILY #14 ea 10/23/24
spironolactone 25 mg tablet 12.5 mg (1/2 x 25 mg) PO DAILY #30 tabs 11/01/24
zinc sulfate 50 mg zinc (220 mg) tablet 50 mg PO DAILY Supplement 11/15/24
lactulose 10 gram/15 mL oral solution 20 g PO TID Constipation 12/14/24
ertapenem 1 gram solution for injection 1 g IM Q24H #56 ea 12/22/24
midodrine 2.5 mg tablet 2.5 mg PO TID@0800,1300,1800 #90 tabs 12/22/24
oxycodone 5 mg tablet 5 mg PO Q8H PRN Pain #10 tabs 12/22/24
Home Medication Changes
Pending Results: No
Total time spent discharging patient (in min): 41
[2024-12-22] MEDS: LASIX 20 MG PO (13:13)
[2024-12-22] MEDS: ALDACTONE 12.5 MG PO (13:14)
[2024-12-22 15:16] VITALS: BP 142/68
== END 2024-12-22 16:42 | disposition home or self-care (01) | DRG 871 ==
LOC: 2 NORTH 10:37
PROVIDERS: Internal Medicine; Nurse Practitioner; Nurse Practitioner Adult Health; Radiology Diagnostic Radiology; Radiology Vascular & Interventional Radiology; ADMITTING PHYSICIAN Hospitalist; ATTENDING PHYSICIAN Internal Medicine; CONSULT PHYSICIAN Internal Medicine; CONSULT PHYSICIAN Specialist; EMERGENCY PHYSICIAN Emergency Medicine; OTHER PHYSICIAN Internal Medicine Critical Care Medicine; OTHER PHYSICIAN Student in an Organized Health Care Education/Training Program
PROC: 30233N1 Transfusion of Nonautologous Red Blood Cells into Peripheral Vein, Percutaneous Approach (ICD-10-PCS; 2024-12-15)
PROC: 0W9G3ZZ Drainage of Peritoneal Cavity, Percutaneous Approach (ICD-10-PCS; 2024-12-18)
PROC: 02HV33Z Insertion of Infusion Device into Superior Vena Cava, Percutaneous Approach (ICD-10-PCS; 2024-12-19)
DX: A41.51 Sepsis due to Escherichia coli [E. coli] (principal); K65.2 Spontaneous bacterial peritonitis; E87.1 Hypo-osmolality and hyponatremia; D61.818 Other pancytopenia; K76.6 Portal hypertension; N17.9 Acute kidney failure, unspecified; D62 Acute posthemorrhagic anemia; E87.20 Acidosis, unspecified; D68.9 Coagulation defect, unspecified; J44.0 Chronic obstructive pulmonary disease with (acute) lower respiratory infection; R04.2 Hemoptysis; I86.4 Gastric varices; F17.210 Nicotine dependence, cigarettes, uncomplicated; E88.09 Other disorders of plasma-protein metabolism, not elsewhere classified; B18.2 Chronic viral hepatitis C; E87.6 Hypokalemia; K72.10 Chronic hepatic failure without coma; K21.9 Gastro-esophageal reflux disease without esophagitis; F10.11 Alcohol abuse, in remission; I10 Essential (primary) hypertension; K31.89 Other diseases of stomach and duodenum; K70.31 Alcoholic cirrhosis of liver with ascites; Z86.73 Personal history of transient ischemic attack (TIA), and cerebral infarction without residual deficits; Z88.1 Allergy status to other antibiotic agents; Z79.899 Other long term (current) drug therapy
CPT/HCPCS: 93308; 49083; 71045; 74176; 80048; 80053; 80306; 80307; 82042; 82248; 82977; 83605; 83615; 85014; 85018; 85025; 85027; 85045; 85610; 86850; 86900; 86901; 86920; 86922; 87015; 87040; 87070; 87077; 87186; 87205; 89051; 93321; 93325; 94640; 96361; 96365; 96366; 96367; 96375; 96376; 97163; 97166; 97530; 99291; P9016; P9047

== ENCOUNTER → 2024-12-28 07:42 | Outpatient (REF) | payer BC, SELFPAY ==
[2024-12-28 08:15] VITALS: BP 142/74; BP_SYST 101
[2024-12-28 09:10] VITALS: BP 114/59
[2024-12-28 14:55] LABS: Body Fluid Mononuclear 94.9 %; Body Fluid Polymorphonuclear 5.1 %; Body Fluid WBC 139 /CUMM
[2024-12-28 15:26] LABS: Body Fluid Second Tech FB
== END ==
LOC: RADI 07:42
PROVIDERS: ATTENDING PHYSICIAN Nurse Practitioner Adult Health; FAMILY PHYSICIAN Internal Medicine
DX: R18.8 Other ascites (principal)
CPT/HCPCS: 49083; 87015; 87070; 87205; 89051

== ENCOUNTER 2025-01-02 16:07 | Emergency (ER) | payer BC, SELFPAY ==
[2025-01-02 16:12] VITALS: BP 146/67
--- NOTE | 2025-01-02 16:16 | ED.GENMED ---
ED Provider Triage
<Nakul Maurer PA-C - Last Filed: 01/02/25 16:17>
-
Patient seen by provider in Triage?: Seen in Triage
Attestation: A medical screening examination has been initiated by a qualified medical provider. Based on the assessment performed at this time, it has been determined that an emergent medical condition may exist and the patient has been informed
that further medical evaluation and possible additional diagnostic testing may be needed.
HPI: 59-year-old male with history of cirrhosis gets routine paracentesis presents with increased lower abdominal and pelvic pain. He states the pain radiates into his testicle. He has a known hernia however the pain significantly increased
recently. No fevers. He is on a transplant list for his liver. Vital signs are stable at triage. Given increased pain in the abdomen will order CT scan labs pending.
GENERAL: Alert , in no apparent distress
EYE: No visual abnormalities.
NECK: Trachea midline
ENT: No visible abnormalities.
LUNGS: No acute respiratory distress
NEUROLOGICAL: Alert and oriented
SKIN: Skin intact. No visible changes.
MUSCULOSKELETAL: Moving extremities normally
PSYCH: Normal and appropriate interaction.
This is a medical evaluation conducted in person to initiate diagnostic evaluation and provide initial therapeutics. Please see further documentation by the treating clinician.
History of Present Illness
<Nakul Maurer PA-C - Last Filed: 01/02/25 16:17>
General
Chief Complaint: Abdominal Pain
Time Seen by Provider: 01/02/25 18:22
<Blsa Malcolm DO - Last Filed: 01/02/25 19:30>
General
Source: patient
Exam Limitations: none
Nursing documentation reviewed up to this point in time: agreed with
History of Present Illness
History of Present Illness:
Agree with HPI by Rajiv Maurer
Past History
<Nakul Maurer PA-C - Last Filed: 01/02/25 16:17>
Past History
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 GI bleed, portal gastropathy, hemorrhoids, umbilical hernia, CVA, SBP, E. coli bacteremia, ESBL)
ED Past Surgical History: Other
Social History
Tobacco: Smoker
Alcohol: Former
Drug: None
Personal:
Living: with family
Employment: Employed
Family History
Family History: Diabetes and Other
Review of Systems
<Blas Malcolm DO - Last Filed: 01/02/25 19:30>
Review of Systems
Allergies reviewed?: Yes
All Other Systems: Not applicable
Constitutional: Reports no symptoms
EENT: Reports no symptoms
Respiratory: Reports no symptoms
Cardiac: Reports no symptoms
ABD/GI: Reports abdominal pain
: Reports no symptoms
Musculoskeletal: Reports no symptoms
Skin: Reports no symptoms
Neurological: Reports no symptoms
Endocrine: Reports no symptoms
Hematologic/Lymphatic: Reports no symptoms
Psychiatric: Reports no symptoms
Phy Exam
<Blas Malcolm DO - Last Filed: 01/02/25 19:30>
Physical Exam
Physical Exam:
Physical Exam
General: no apparent distress, not acutely ill
Neck: supple. no meningeal signs. normal posterior pharynx
Heart: s1/s2 regular rate and rhythm, no murmur. equal radial
pulses.
HEENT: Pupils equal round reactive to light, EOMI
Lungs: no acute respiratory distress. clear bilaterally
Abdomen: normal bowel sounds. Abdomen mildly distended, right inguinal hernia, umbilical hernia no CVAT
Neuro: alert and oriented. no focal neurological deficits cranial nerves II through XII intact
Skin: no rash
Psychiatric: well kept. interactive and cooperative
Extremities: no edema. no calf tenderness. negative homans. good distal pulses
Course
<Nakul Maurer PA-C - Last Filed: 01/02/25 16:17>
Orders/Labs/Results
Orders:
Orders
01/02/25 16:14
CT Abd/pelvis W Iv Cont Urgent
Comment:
Reason For Exam: lower abdominal and pelvic pain
01/02/25 16:31
Complete Blood Count/With Diff Urgent
Comprehensive Metabolic Panel Urgent
Lipase Urgent
01/02/25 18:58
HYDROmorphone [Dilaudid] 0.5 mg IV NOW STA
01/02/25 21:28
HYDROmorphone [Dilaudid] 2 mg PO NOW STA
Abnormal Lab Results
01/02/25
16:31
RBC 2.83 L 10^6/uL
(4.70-6.10)
Hgb 8.9 L D g/dL
(13.0-18.0)
Hct 26.6 L %
(39.0-52.0)
MCH 31.4 H pg
(27.0-31.0)
RDW 17.4 H %
(11.5-14.5)
Plt Count 91 L 10^3/uL
(130-400)
Abs Immat Gran (auto) 0.1 H 10^3/uL
(0-0.05)
Absolute Neuts (auto) 6.7 H 10^3/uL
(1.4-6.5)
Absolute Lymphs (auto) 1.1 L 10^3/uL
(1.2-3.4)
Immature Gran % 0.6 H %
(0-0.5)
Neutrophils % 77.3 H %
(42.2-75.2)
Lymphocytes % 12.5 L %
(20.5-51.1)
Sodium 133 L mmol/L
(135-145)
BUN 39 H mg/dl
(9-20)
Glucose 111 H mg/dl
(70-99)
Total Bilirubin 3.5 H mg/dl
(0.2-1.3)
Alkaline Phosphatase 135 H U/L
(38-126)
Total Protein 5.3 L g/dl
(6.3-8.2)
Albumin 3.3 L g/dl
(3.5-5.0)
Lipase 313 H U/L
(23-300)
01/02/25 16:31
01/02/25 16:31
Vital Signs
Initial and Last Documented VS:
Initial Vital Signs
Temp Pulse Resp BP Pulse Ox
97.9 F 91 20 146/67 99
01/02/25 16:12 01/02/25 16:12 01/02/25 16:12 01/02/25 16:12 01/02/25 16:12
Last Documented Vital Signs
Temp Pulse Resp BP Pulse Ox
97.9 F 107 18 100/71 97
01/02/25 16:12 01/02/25 21:33 01/02/25 21:33 01/02/25 21:33 01/02/25 21:33
Cheyennelt;Blas Malcolm, DO - Last Filed: 01/02/25 19:30>
Orders/Labs/Results
Orders:
Orders
01/02/25 16:14
CT Abd/pelvis W Iv Cont Urgent
Comment:
Reason For Exam: lower abdominal and pelvic pain
01/02/25 16:31
Complete Blood Count/With Diff Urgent
Comprehensive Metabolic Panel Urgent
Lipase Urgent
01/02/25 18:58
HYDROmorphone [Dilaudid] 0.5 mg IV NOW STA
01/02/25 21:28
HYDROmorphone [Dilaudid] 2 mg PO NOW STA
Abnormal Lab Results
01/02/25
16:31
RBC 2.83 L 10^6/uL
(4.70-6.10)
Hgb 8.9 L D g/dL
(13.0-18.0)
Hct 26.6 L %
(39.0-52.0)
MCH 31.4 H pg
(27.0-31.0)
RDW 17.4 H %
(11.5-14.5)
Plt Count 91 L 10^3/uL
(130-400)
Abs Immat Gran (auto) 0.1 H 10^3/uL
(0-0.05)
Absolute Neuts (auto) 6.7 H 10^3/uL
(1.4-6.5)
Absolute Lymphs (auto) 1.1 L 10^3/uL
(1.2-3.4)
Immature Gran % 0.6 H %
(0-0.5)
Neutrophils % 77.3 H %
(42.2-75.2)
Lymphocytes % 12.5 L %
(20.5-51.1)
Sodium 133 L mmol/L
(135-145)
BUN 39 H mg/dl
(9-20)
Glucose 111 H mg/dl
(70-99)
Total Bilirubin 3.5 H mg/dl
(0.2-1.3)
Alkaline Phosphatase 135 H U/L
(38-126)
Total Protein 5.3 L g/dl
(6.3-8.2)
Albumin 3.3 L g/dl
(3.5-5.0)
Lipase 313 H U/L
(23-300)
01/02/25 16:31
01/02/25 16:31
Vital Signs
Initial and Last Documented VS:
Initial Vital Signs
Temp Pulse Resp BP Pulse Ox
97.9 F 91 20 146/67 99
01/02/25 16:12 01/02/25 16:12 01/02/25 16:12 01/02/25 16:12 01/02/25 16:12
Last Documented Vital Signs
Temp Pulse Resp BP Pulse Ox
97.9 F 107 18 100/71 97
01/02/25 16:12 01/02/25 21:33 01/02/25 21:33 01/02/25 21:33 01/02/25 21:33
<Yobani Nayak MD - Last Filed: 01/03/25 03:11>
Orders/Labs/Results
Orders:
Orders
01/02/25 16:14
CT Abd/pelvis W Iv Cont Urgent
Comment:
Reason For Exam: lower abdominal and pelvic pain
01/02/25 16:31
Complete Blood Count/With Diff Urgent
Comprehensive Metabolic Panel Urgent
Lipase Urgent
01/02/25 18:58
HYDROmorphone [Dilaudid] 0.5 mg IV NOW STA
01/02/25 21:28
HYDROmorphone [Dilaudid] 2 mg PO NOW STA
Abnormal Lab Results
01/02/25
16:31
RBC 2.83 L 10^6/uL
(4.70-6.10)
Hgb 8.9 L D g/dL
(13.0-18.0)
Hct 26.6 L %
(39.0-52.0)
MCH 31.4 H pg
(27.0-31.0)
RDW 17.4 H %
(11.5-14.5)
Plt Count 91 L 10^3/uL
(130-400)
Abs Immat Gran (auto) 0.1 H 10^3/uL
(0-0.05)
Absolute Neuts (auto) 6.7 H 10^3/uL
(1.4-6.5)
Absolute Lymphs (auto) 1.1 L 10^3/uL
(1.2-3.4)
Immature Gran % 0.6 H %
(0-0.5)
Neutrophils % 77.3 H %
(42.2-75.2)
Lymphocytes % 12.5 L %
(20.5-51.1)
Sodium 133 L mmol/L
(135-145)
BUN 39 H mg/dl
(9-20)
Glucose 111 H mg/dl
(70-99)
Total Bilirubin 3.5 H mg/dl
(0.2-1.3)
Alkaline Phosphatase 135 H U/L
(38-126)
Total Protein 5.3 L g/dl
(6.3-8.2)
Albumin 3.3 L g/dl
(3.5-5.0)
Lipase 313 H U/L
(23-300)
01/02/25 16:31
01/02/25 16:31
Vital Signs
Initial and Last Documented VS:
Initial Vital Signs
Temp Pulse Resp BP Pulse Ox
97.9 F 91 20 146/67 99
01/02/25 16:12 01/02/25 16:12 01/02/25 16:12 01/02/25 16:12 01/02/25 16:12
Last Documented Vital Signs
Temp Pulse Resp BP Pulse Ox
97.9 F 107 18 100/71 97
01/02/25 16:12 01/02/25 21:33 01/02/25 21:33 01/02/25 21:33 01/02/25 21:33
<Yobani Noh, MD - Last Filed: 01/03/25 03:11>
*Critical Care Note
Total Time (30-74mins, 75-104mins- exclusive of procedures): Not Applicable
<Yobani Nayak MD - Last Filed: 01/03/25 03:11>
Update Note
Update Note:
CT abdomen pelvis report reviewed and discussed with on-call surgeon, Dr. Dove. There is no evidence of bowel obstruction. No indication for acute surgical intervention, in the setting of active ascites. Patient can be seen as an outpatient
for consultation, after his ascites is adequately addressed with his GI physician. Patient does state that his abdominal swelling has increased recently, and has rescheduled his weekly paracentesis for tomorrow morning. Otherwise, patient remains
afebrile, hemodynamically stable, and nontoxic-appearing. I do feel the patient is stable to be discharged home at this time, with recommendation to receive paracentesis, which will alleviate his fluid burden. Patient will be given 1 tablet of
Dilaudid prior to discharge, as patient also takes pain medication chronically, prescribed by his primary care physician. Patient given return precautions, i.e. fever/worsening pain/vomiting. Patient expresses understanding at time of discharge,
to the care of his .
ED Attending Note
<Nakul Maurer PA-C - Last Filed: 01/02/25 16:17>
-
Portions of this chart may have been created with voice recognition software.� Occasional wrong word or��sound alike� substitutions may have occurred due to the inherent limitations of voice recognition software.
Discharge Plan
Departure
Patient Disposition: Home (Routine Discharge)
Date of Disposition: 01/02/25
Time of Disposition: 21:33
Patient with high blood pressure during this ER visit?: Yes
Condition: Good
Discharge Problem:
Ascites, Inguinal hernia
Instructions: Groin hernias, Fluid in the belly from cirrhosis (ascites)
Prescriptions:
No Action
thiamine HCl (vitamin B1) 100 mg tablet
100 mg PO DAILY
Breztri Aerosphere 160-9-4.8 mcg/actuation Hfa Aerosol Inhaler
2 inh INHALATION R BID
Xifaxan 550 mg Tablet
550 mg PO BID
magnesium oxide 400 mg magnesium Tablet
400 mg PO BID
pantoprazole [Protonix] 40 mg tablet,delayed release (DR/EC)
40 mg PO BID
ondansetron HCl 4 mg Tablet
4 mg PO DAILYPRN PRN (Reason: nasuea)
lidocaine 4 % adhesive patch,medicated
1 patch topical DAILYPRN PRN (Reason: right knee and right shoulder)
miconazole nitrate [Miconazorb AF] 2 % powder
1 applic topical BID
tramadol 50 mg tablet
50 mg PO BIDPRN PRN (Reason: moderate-severe pain)
Hemorrhoidal(PE-min oil-darling) 0.25-14-74.9 % ointment
1 applic VA BID
folic acid 1 mg Tablet
1 mg PO DAILY Qty: 30 0RF
nicotine 7 mg/24 hr Patch 24 Hour
7 mg transdermal DAILY Qty: 14 0RF
spironolactone 25 mg Tablet
12.5 mg PO DAILY Qty: 30 0RF
zinc sulfate 50 mg zinc (220 mg) Tablet
50 mg PO DAILY
lactulose 10 gram/15 mL Solution
20 g PO TID
ertapenem 1 gram recon soln
1 g IM Q24H Qty: 56 0RF
midodrine 2.5 mg Tablet
2.5 mg PO TID@0800,1300,1800 Qty: 90 0RF
oxycodone 5 mg tablet
5 mg PO Q8H PRN (Reason: Pain) Qty: 10 0RF
Referrals:
Jennifer Weaver MD [Active] -
Mahin Dove MD [Active] -
Drake Goss, DO [Family Provider] -
Activity Restrictions/Additional Instructions:
As discussed, please obtain paracentesis tomorrow morning, as scheduled. In addition, please continue to follow-up with your GI physician as well as referred general surgeon for further evaluation and treatment, including potential treatment
options for your ongoing inguinal hernia. Please return to ED with worsening symptoms, i.e. fever/worsening pain/vomiting.
Interventions
Interventions:
*Risk Screen - Suicide Last Done: 01/02/25 16:12
*General Assessment Last Done: 01/02/25 16:12
*Neglect/Abuse Screening Last Done: 01/02/25 16:12
ED- Fall Risk Assessment Last Done: 01/02/25 21:46
*ED COVID-19 Vaccine History Last Done: 01/02/25 21:46
*Nursing Disposition Last Done: 01/02/25 21:46
DL-Jrrqbf-Cjqtzppccd Assessment Last Done: 01/02/25 19:30
Discharge Date and Time
Discharge Date/Time: 01/02/25 21:46
Print Language: NICARAGUAN
[2025-01-02 17:10] LABS: % Basophils 0.6 % (0-2); % Eosinophils 2.2 % (0-6); % Immature Granulocytes 0.6 % (0-0.5); % Lymphocytes 12.5 % (20.5-51.1); % Monocytes 6.8 % (1.7-9.3); % Neutrophils 77.3 % (42.2-75.2); Absolute Basophils 0.1 10^3/uL (0-0.2); Absolute Eosinophils 0.2 10^3/uL (0-0.7); Absolute Immature Granulocytes 0.1 10^3/uL (0-0.05); Absolute Lymphocytes 1.1 10^3/uL (1.2-3.4); Absolute Monocytes 0.6 10^3/uL (0.1-0.6); Absolute Neutrophils 6.7 10^3/uL (1.4-6.5); Hematocrit 26.6 % (39.0-52.0); Hemoglobin 8.9 g/dL (13.0-18.0); Mean Corp Hgb Conc. 33.5 g/dL (33.0-37.0); Mean Corpuscular Hgb 31.4 pg (27.0-31.0); Mean Platelet Volume 9.6 fL (7.4-10.4); Nucleated Red Blood Cells % 0 % (-); Platelet Count 91 10^3/uL (130-400); Red Blood Cell Count 2.83 10^6/uL (4.70-6.10); Red Cell Dist. Width 17.4 % (11.5-14.5); White Blood Cell Count 8.6 10^3/uL (4.8-10.8)
[2025-01-02 17:19] LABS: ALT (SGPT) 16 U/L (0-50); AST (SGOT) 35 U/L (17-59); Albumin 3.3 g/dl (3.5-5.0); Alkaline Phosphatase 135 U/L (38-126); Blood Urea Nitrogen 39 mg/dl (9-20); Calcium 8.8 mg/dl (8.4-10.2); Carbon Dioxide 23 mmol/L (22-30); Chloride 101 mmol/L (98-107); Glucose 111 mg/dl (70-99); Potassium 4.1 mmol/L (3.5-5.1); Sodium 133 mmol/L (135-145); Total Bilirubin 3.5 mg/dl (0.2-1.3); Total Protein 5.3 g/dl (6.3-8.2); eGFR > 60.00
[2025-01-02 17:20] LABS: Lipase 313 U/L (23-300)
[2025-01-02] MEDS: DILAUDID 0.5 MG IV (19:20)
[2025-01-02 19:22] VITALS: BP 121/68
[2025-01-02] MEDS: DILAUDID 2 MG PO (21:32)
[2025-01-02 21:33] VITALS: BP 100/71
== END 2025-01-02 21:46 | disposition home or self-care (01) ==
LOC: EMR 16:07
PROVIDERS: Physician Assistant; EMERGENCY PHYSICIAN Emergency Medicine; FAMILY PHYSICIAN Internal Medicine
DX: R18.8 Other ascites (principal); K40.90 Unilateral inguinal hernia, without obstruction or gangrene, not specified as recurrent; I10 Essential (primary) hypertension; F17.200 Nicotine dependence, unspecified, uncomplicated
CPT/HCPCS: 99285; 96374; 74177; 80053; 83690; 85025; Q9967

== ENCOUNTER → 2025-01-03 07:38 | Outpatient (REF) | payer BC, SELFPAY ==
[2025-01-03 08:20] VITALS: BP 123/67; BP_SYST 97
[2025-01-03 08:55] VITALS: BP 109/54
[2025-01-03 09:29] LABS: Body Fluid Mononuclear 86.6 %; Body Fluid Polymorphonuclear 13.4 %; Body Fluid WBC 67 /CUMM
[2025-01-03 10:07] LABS: Body Fluid Second Tech AMA
== END ==
LOC: RADI 07:38
PROVIDERS: ATTENDING PHYSICIAN Nurse Practitioner Adult Health; FAMILY PHYSICIAN Internal Medicine
DX: R18.8 Other ascites (principal)
CPT/HCPCS: 49083; 87015; 87070; 87205; 89051

== ENCOUNTER 2025-01-03 09:03 | Outpatient (RCR) | payer BC, SELFPAY ==
[2024-12-10 09:20] VITALS: BP 114/53
[2024-12-10 09:30] VITALS: BP 114/53
[2024-12-10] MEDS: FLEXBUMIN 100 IV ×2 (09:35→11:17)
[2024-12-10 11:17] VITALS: BP 116/45
[2024-12-10] MEDS: FLEXBUMIN 50 IV (12:55)
[2024-12-10 12:57] VITALS: BP 133/57
[2024-12-10 13:40] VITALS: BP 117/49
[2024-12-28] VITALS (7 sets, daily range): BP systolic 106–119; BP diastolic 55–61
[2024-12-28] MEDS: FLEXBUMIN 100 IV (09:32)
[2024-12-28 10:26] LABS: % Basophils 0.7 % (0-2); % Eosinophils 2.6 % (0-6); % Immature Granulocytes 0.2 % (0-0.5); % Monocytes 6.4 % (1.7-9.3); % Neutrophils 76.1 % (42.2-75.2); ALT (SGPT) 15 U/L (0-50); AST (SGOT) 32 U/L (17-59); Absolute Eosinophils 0.1 10^3/uL (0-0.7); Absolute Lymphocytes 0.6 10^3/uL (1.2-3.4); Absolute Monocytes 0.3 10^3/uL (0.1-0.6); Absolute Neutrophils 3.2 10^3/uL (1.4-6.5); Albumin 2.7 g/dl (3.5-5.0); Alkaline Phosphatase 124 U/L (38-126); Blood Urea Nitrogen 24 mg/dl (9-20); Calcium 7.7 mg/dl (8.4-10.2); Carbon Dioxide 25 mmol/L (22-30); Chloride 101 mmol/L (98-107); Glucose 114 mg/dl (70-99); Hematocrit 19.9 % (39.0-52.0); Hemoglobin 6.6 g/dL (13.0-18.0); Mean Corp Hgb Conc. 33.2 g/dL (33.0-37.0); Mean Corpuscular Hgb 30.8 pg (27.0-31.0); Mean Platelet Volume 9.7 fL (7.4-10.4); Nucleated Red Blood Cells % 0 % (-); Platelet Count 78 10^3/uL (130-400); Potassium 3.7 mmol/L (3.5-5.1); Red Blood Cell Count 2.14 10^6/uL (4.70-6.10); Red Cell Dist. Width 16.4 % (11.5-14.5); Sodium 132 mmol/L (135-145); Total Bilirubin 2.6 mg/dl (0.2-1.3); Total Protein 4.7 g/dl (6.3-8.2); White Blood Cell Count 4.2 10^3/uL (4.8-10.8); eGFR > 60.00
--- NOTE | 2024-12-28 11:00 | PTCARENOTE ---
pt had labs ordered from Dr. Goss, cbc abd cmp; labs drawn and cbc resulted and hgb back at 6.6 hct back at 19.9. Dr. Goss's office notified and awaiting transfusion orders from . Pt updated, will follow.
[2024-12-28] MEDS: FLEXBUMIN 50 IV (11:05)
--- NOTE | 2024-12-28 12:09 | PTCARENOTE ---
2 units prbc ordered with type and screen, awaiting results of type and screen, pt updated. will follow.
--- NOTE | 2024-12-28 15:09 | PTCARENOTE ---
pt will be receiving one unit of prbc today and the second unit on Tuesday12/31/24. pt resting comfortably in chair, has ambulated to bathroom without difficulty a few times since he's been here. no complaints, will follow.
[2024-12-31 11:33] VITALS: BP 128/49
[2024-12-31 11:50] VITALS: BP 114/56
[2024-12-31 13:54] VITALS: BP 130/63
[2025-01-03 09:10] VITALS: BP 119/55
[2025-01-03] MEDS: FLEXBUMIN 100 IV (09:16)
[2025-01-03 09:17] VITALS: BP 119/55
[2025-01-03] MEDS: FLEXBUMIN 50 IV (10:52)
[2025-01-03 10:53] VITALS: BP 101/51
[2025-01-03 11:35] VITALS: BP 101/51
== END 2025-01-04 08:58 | disposition home or self-care (01) ==
LOC: OID 09:03
PROVIDERS: ATTENDING PHYSICIAN Nurse Practitioner Adult Health; FAMILY PHYSICIAN Internal Medicine
DX: K70.31 Alcoholic cirrhosis of liver with ascites (principal); B18.2 Chronic viral hepatitis C; D64.9 Anemia, unspecified; D69.6 Thrombocytopenia, unspecified
CPT/HCPCS: 36430; 36591; 49083; 80053; 85025; 86850; 86900; 86901; 86920; 86922; 87015; 87070; 87205; 89051; 96365; 96366; P9016; P9047

== ENCOUNTER 2025-01-04 19:26 | Inpatient (IN) | payer BC, SELFPAY ==
[2025-01-04] VITALS (12 sets, daily range): BP systolic 104–125; BP diastolic 55–62; BMI 24.1
[2025-01-04 15:46] LABS: % Basophils 0.2 % (0-2); % Immature Granulocytes 0.6 % (0-0.5); % Lymphocytes 11.4 % (20.5-51.1); % Monocytes 5.7 % (1.7-9.3); % Neutrophils 80.1 % (42.2-75.2); Absolute Eosinophils 0.2 10^3/uL (0-0.7); Absolute Immature Granulocytes 0.1 10^3/uL (0-0.05); Absolute Monocytes 0.5 10^3/uL (0.1-0.6); Absolute Neutrophils 6.8 10^3/uL (1.4-6.5); Hematocrit 18.7 % (39.0-52.0); Hemoglobin 6.4 g/dL (13.0-18.0); INR 1.62; Mean Corp Hgb Conc. 34.2 g/dL (33.0-37.0); Mean Corpuscular Hgb 31.4 pg (27.0-31.0); Mean Corpuscular Volume 91.7 fL (80.0-94.0); Mean Platelet Volume 9.8 fL (7.4-10.4); Nucleated Red Blood Cells % 0 % (-); PT 19.4 Sec (11.4-14.6); Platelet Count 96 10^3/uL (130-400); Red Blood Cell Count 2.04 10^6/uL (4.70-6.10); Red Cell Dist. Width 17.3 % (11.5-14.5); White Blood Cell Count 8.5 10^3/uL (4.8-10.8)
[2025-01-04 15:47] LABS: APTT 35.9 Sec (23.4-35.0)
[2025-01-04 15:50] LABS: ALT (SGPT) 13 U/L (0-50); AST (SGOT) 29 U/L (17-59); Albumin 2.9 g/dl (3.5-5.0); Alkaline Phosphatase 84 U/L (38-126); Blood Urea Nitrogen 77 mg/dl (9-20); Calcium 8.6 mg/dl (8.4-10.2); Carbon Dioxide 23 mmol/L (22-30); Chloride 100 mmol/L (98-107); Glucose 130 mg/dl (70-99); Lipase 285 U/L (23-300); Potassium 4.6 mmol/L (3.5-5.1); Sodium 130 mmol/L (135-145); Total Bilirubin 2.9 mg/dl (0.2-1.3); Total Protein 4.7 g/dl (6.3-8.2); eGFR > 60.00
--- NOTE | 2025-01-04 17:10 | ED.GENMED ---
History of Present Illness
General
Chief Complaint: Abdominal Symptoms
Source: patient, records and previous hospital records
Exam Limitations: none
Time Seen by Provider: 01/04/25 16:56
History of Present Illness
History of Present Illness:
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
Past History
Past History
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 GI bleed, portal gastropathy, hemorrhoids, umbilical hernia, CVA, SBP, E. coli bacteremia, ESBL)
ED Past Surgical History: Other
Social History
Tobacco: Smoker
Alcohol: Former
Drug: None
Personal:
Living: with family
Employment: Employed
Family History
Family History: Diabetes and Other
Review of Systems
Review of Systems
All Other Systems: Not applicable
Constitutional: Reports fatigue; Denies fever
Respiratory: Reports no symptoms
Cardiac: Reports no symptoms
ABD/GI: Reports abdominal pain and black stools
Phy Exam
Physical Exam
Physical Exam:
Physical Exam
General: Chronically ill-appearing
Neck: Pallorous.
Heart: s1/s2 regular rate and rhythm, no murmur. equal radial pulses.
Lungs: no acute respiratory distress. clear bilaterally
Abdomen: Distended minimal diffuse tenderness reducible hernia
Rectal, dark brown-black heme positive
Neuro: alert and oriented. no focal neurological deficits
Skin: no rash
Psychiatric: well kept. interactive and cooperative
Extremities: no edema.
Course
Orders/Labs/Results
Orders:
Orders
01/04/25 15:29
Type+Screen Urgent
Complete Blood Count/With Diff Urgent
Comprehensive Metabolic Panel Urgent
Lipase Urgent
PTT Urgent
Prothrombin Time Urgent
01/04/25 17:05
Ondansetron Injectable [Zofran] 4 mg IV NOW STA
01/04/25 17:06
* Blood Bank Products Urgent
'twyla Orders: raúl
Blood Bank Products: *Packed RBC Leuko(PRBC's)
Quantity: 2
Transfuse Today: Yes
Reason: Anemia
Pantoprazole [Protonix IV] 40 mg IV NOW STA
01/04/25 17:15
Pantoprazole 80 mg/100 ml Nss [Protonix] 80 mg in 100 ml IV Q10H
01/04/25 17:19
CXR [CR Chest Portable - 1 View] Urgent
Comment:
Reason For Exam: verify picc placement
Reason Study Needs to be Portable: Patient Unstable
Abnormal Lab Results
01/04/25
15:29
RBC 2.04 L 10^6/uL
(4.70-6.10)
Hgb 6.4 L* D g/dL
(13.0-18.0)
Hct 18.7 L* %
(39.0-52.0)
MCH 31.4 H pg
(27.0-31.0)
RDW 17.3 H %
(11.5-14.5)
Plt Count 96 L 10^3/uL
(130-400)
Abs Immat Gran (auto) 0.1 H 10^3/uL
(0-0.05)
Absolute Neuts (auto) 6.8 H 10^3/uL
(1.4-6.5)
Absolute Lymphs (auto) 1.0 L 10^3/uL
(1.2-3.4)
Immature Gran % 0.6 H %
(0-0.5)
Neutrophils % 80.1 H %
(42.2-75.2)
Lymphocytes % 11.4 L %
(20.5-51.1)
PT 19.4 H Sec
(11.4-14.6)
APTT 35.9 H Sec
(23.4-35.0)
Sodium 130 L mmol/L
(135-145)
BUN 77 H mg/dl
(9-20)
Glucose 130 H mg/dl
(70-99)
Total Bilirubin 2.9 H mg/dl
(0.2-1.3)
Total Protein 4.7 L g/dl
(6.3-8.2)
Albumin 2.9 L g/dl
(3.5-5.0)
01/04/25 15:29
01/04/25 15:29
Vital Signs
Initial and Last Documented VS:
Initial Vital Signs
Temp Pulse Resp BP Pulse Ox
98.7 F 104 18 104/61 99
01/04/25 15:05 01/04/25 15:05 01/04/25 15:05 01/04/25 15:05 01/04/25 15:05
Last Documented Vital Signs
Temp Pulse Resp BP Pulse Ox
98.7 F 104 18 104/61 99
01/04/25 15:05 01/04/25 15:05 01/04/25 15:05 01/04/25 15:05 01/04/25 15:05
MDM/Problems Addressed
Differential Diagnosis Includes:
GI bleed duodenitis varices
MDM/Problems Addressed:
Black stool
Chronic conditions affecting care:
Chronic liver disease
Acute Exacerbation and/or Progression of Chronic Illness:
Chronic liver disease
*Critical Care Note
Total Time (30-74mins, 75-104mins- exclusive of procedures): 32
Update Note
Update Note:
Update labs noted patient with heme positive black stool CT and paracentesis for recently noted
CRITICAL CARE STATEMENT: A total of 32 minutes of critical care time was provided for this patient. This includes management of unstable vital signs, evaluation of the patient at bedside, reviewing the patient's pertinent medical records discussion
with EMS providers and patient's family in addition to discussion with consultants, review of old EKGs and review of pertinent medical records. This time with separate from time utilized to perform the aforementioned documented procedures
ED Attending Note
-
Portions of this chart may have been created with voice recognition software.� Occasional wrong word or��sound alike� substitutions may have occurred due to the inherent limitations of voice recognition software.
Discharge Plan
Departure
Patient Disposition: Admit
Date of Disposition: 01/04/25
Time of Disposition: 17:34
Presentation/result/management discussed w/ accepting MD/DO: Hospitalist
Patient with high blood pressure during this ER visit?: No
Condition: Fair
Discharge Problem:
Acute upper GI bleed
Prescriptions:
No Action
thiamine HCl (vitamin B1) 100 mg tablet
100 mg PO DAILY
Breztri Aerosphere 160-9-4.8 mcg/actuation Hfa Aerosol Inhaler
2 inh INHALATION R BID
Xifaxan 550 mg Tablet
550 mg PO BID
magnesium oxide 400 mg magnesium Tablet
400 mg PO BID
pantoprazole [Protonix] 40 mg tablet,delayed release (DR/EC)
40 mg PO BID
ondansetron HCl 4 mg Tablet
4 mg PO DAILYPRN PRN (Reason: nasuea)
lidocaine 4 % adhesive patch,medicated
1 patch topical DAILYPRN PRN (Reason: right knee and right shoulder)
miconazole nitrate [Miconazorb AF] 2 % powder
1 applic topical BID
tramadol 50 mg tablet
50 mg PO BIDPRN PRN (Reason: moderate-severe pain)
Hemorrhoidal(PE-min oil-darling) 0.25-14-74.9 % ointment
1 applic VA BID
folic acid 1 mg Tablet
1 mg PO DAILY Qty: 30 0RF
nicotine 7 mg/24 hr Patch 24 Hour
7 mg transdermal DAILY Qty: 14 0RF
spironolactone 25 mg Tablet
12.5 mg PO DAILY Qty: 30 0RF
zinc sulfate 50 mg zinc (220 mg) Tablet
50 mg PO DAILY
lactulose 10 gram/15 mL Solution
20 g PO TID
ertapenem 1 gram recon soln
1 g IM Q24H Qty: 56 0RF
midodrine 2.5 mg Tablet
2.5 mg PO TID@0800,1300,1800 Qty: 90 0RF
oxycodone 5 mg tablet
5 mg PO Q8H PRN (Reason: Pain) Qty: 10 0RF
Interventions
Interventions:
*Risk Screen - Suicide Last Done: 01/04/25 15:05
*General Assessment Last Done: 01/04/25 15:05
*Neglect/Abuse Screening Last Done: 01/04/25 15:05
*ED COVID-19 Vaccine History Last Done: 01/04/25 15:05
Discharge Date and Time
Print Language: [place]
--- NOTE | 2025-01-04 18:07 | HPS.HSE ---
Family Physician
-
Family Physician: Drake Goss
Chief Complaint
-
balck stool , abdominal pain
History of Present Illness
HPI
59M Former ETOH use disorder, ESLD, Gastric Varices, Portal gastropathy , decompensated cirrhosis, synthetic dysfunction, HX GIB, HX recurrent SBP, recurent ascites seen at ER:
- seen at ER last night with abdominal pain after eating [place] food discharged home
- onset of some black stool today feels weak fatigued, no vomiting
- no NSAID use
01/03/25: therapeutic paracentesis.6700 cc of clear yellow ascitic fluid yestrday
Medical History
Past Medical History
Past Medical History: Reports Other
Additional Past Medical History:
End-stage liver disease
Alcoholic cirrhosis
Chronic anemia
Pancytopenia
HCV
GI bleed
Essential hypertension
COPD
History of stroke
Gastric varices
Portal hypertensive gastropathy
Past Surgical History: Reports None
Social History
Tobacco: Former Smoker
Alcohol: Former
Drug: None
Personal:
Living: With Family
Family History
Family History: Not pertinent
Allergies / Home Medications
Allergies reflects when Allergies were last updated in [facility].
Home Medications with original date entered in [facility]
Allergy/Medication List:
Allergies
Allergy/AdvReac Type Severity Reaction Status Date / Time
doxycycline Allergy Unknown Verified 12/14/24 04:57
Home Medications
thiamine HCl (vitamin B1) 100 mg tablet 100 mg PO DAILY Supplement 03/13/24
budesonide 160 mcg-glycopyr 9 mcg-formot 4.8 mcg/actuation HFA inhaler (Breztri Aerosphere) 2 inh inhalation R BID Lung/Breathing Issues 04/11/24
magnesium oxide 400 mg PO BID Supplement 06/28/24
rifaximin 550 mg tablet (Xifaxan) 550 mg PO BID hepatic encephalopathy 06/28/24
pantoprazole 40 mg tablet,delayed release (Protonix) 40 mg PO BID Gastrointestinal Issue 08/02/24
lidocaine 4 % topical patch 1 patch topical DAILYPRN PRN right knee and right shoulder 09/08/24
miconazole nitrate 2 % topical powder (Miconazorb AF) 1 applic topical BID groin/scrotum 09/08/24
ondansetron HCl 4 mg tablet 4 mg PO DAILYPRN PRN nasuea 09/08/24
phenylephrine 0.25 %-mineral oil 14 %-petrolatm 74.9 % rectal ointment (Hemorrhoidal(phenyleph-min oil-petrolat)) 1 applic [place] BID hemorrhoids 09/26/24
tramadol 50 mg tablet 50 mg PO BIDPRN PRN moderate-severe pain 09/26/24
furosemide 20 mg tablet 20 mg PO DAILY Fluid retention/Swelling 10/06/24
folic acid 1 mg tablet 1 mg PO DAILY #30 tabs 10/23/24
nicotine 7 mg/24 hr daily transdermal patch 7 mg transdermal DAILY #14 ea 10/23/24
spironolactone 25 mg tablet 12.5 mg (1/2 x 25 mg) PO DAILY #30 tabs 11/01/24
zinc sulfate 50 mg zinc (220 mg) tablet 50 mg PO DAILY 11/15/24
lactulose 10 gram/15 mL oral solution 20 g PO TID 12/14/24
Review of Systems
-
Constitutional: Reports No Symptoms
EENT: Reports No Symptoms
Respiratory: Reports No Symptoms
Cardiac: Reports No Symptoms
Abdomen/GI: Reports See HPI, Abdominal Pain and Black Stools
: Reports No Symptoms
Musculoskeletal: Reports No Symptoms
Skin: Reports No Symptoms
Neurological: Reports No Symptoms
Endocrine: Reports No Symptoms
Hematologic/Lymphatic: Reports No Symptoms
Psych: Reports No Symptoms
Physical Exam
Vital Signs
Vital Signs
Temp Pulse Resp BP Pulse Ox
98.7 F 104 18 114/62 97
01/04/25 15:05 01/04/25 15:05 01/04/25 15:05 01/04/25 17:20 01/04/25 17:30
Physical Exam
General: Comfortable and Other (Chronically ill-appearing)
HEENT: NormoCephalic, Anicteric and Moist mucous membranes
Respiratory: Clear
Cardiac: S1/S2 and Regular Rhythm
GI: Soft, Tender, Distended and Other (Umbilical hernia reducible); No Non Distended (Distended minimal diffuse tenderness reducible hernia)
Genito-urinary: Deferred by me
Musculoskeletal: No Clubbing, No Cyanosis and No Edema
Skin: Warm and Dry
Neuro: Awake, Alert and Oriented
Hematologic/Lymphatic: No Lymphadenopathy
Psych: Calm
Laboratory Results
-
01/04/25 15:29
01/04/25 15:29
Laboratory Results
PT 19.4 Sec (11.4-14.6) H 01/04/25 15:29
INR 1.62 01/04/25 15:29
APTT 35.9 Sec (23.4-35.0) H 01/04/25 15:29
Total Bilirubin 2.9 mg/dl (0.2-1.3) H 01/04/25 15:29
AST 29 U/L (17-59) 01/04/25 15:29
ALT 13 U/L (0-50) 01/04/25 15:29
Alkaline Phosphatase 84 U/L (38-126) 01/04/25 15:29
Lipase 285 U/L (23-300) 01/04/25 15:29
Data Reviewed
-
Ultrasound: Report Reviewed by me
Lab Data: Labs Reviewed by me
Old Records: Reviewed
Impression/Plan
-
Vital Signs
Temp Pulse Resp BP Pulse Ox
98.7 F 104 18 114/62 97
01/04/25 15:05 01/04/25 15:05 01/04/25 15:05 01/04/25 17:20 01/04/25 17:30
Laboratory Tests
12/28/24 01/02/25 01/04/25
09:34 16:31 15:29
WBC 4.2 L 8.6 8.5
Hgb 6.6 L* 8.9 L D 6.4 L* D
Hct 19.9 L* 26.6 L 18.7 L*
Plt Count 78 L D 91 L 96 L
INR 1.62
Sodium 130 L
BUN 77 H
Creatinine 1.2
eGFR > 60.00
Total Bilirubin 2.9 H
Total Protein 4.7 L
Albumin 2.9 L
01/03/25US guided diagnostic and therapeutic paracentesis.6700 cc of clear yellow ascitic fluid was evacuate
Last hospitalist admission: DATE OF ADMISSION: 12/14/2024 - DATE OF DISCHARGE: 12/22/2024
DISCHARGE DIAGNOSES:
1. Sepsis.
2. Recurrent spontaneous bacterial peritonitis.
3. Bacteremia.
4. Acute kidney injury, improved.
ASSESSMENT & PLAN
Pending Rx reconciliation
Acute HoB POS dark brown-black stool GIB suspect UGIB
Asso with [facility]BLA : Hgb 8.9 on 01/02/25 --> Hgb 6.4 ( 01/04/25)
Significant azotemia due to UGIB
HX chr anemia and pancytopenia of cirrhosis
Abdominal pain
HX GI bleed.
HX Gastric varices and known variceal disease..
Portal hypertensive gastropathy
- Transfuse to keep hemoglobin above 7.5
- Blood consented , agree with 2 PRBCS
- NPO and IVF
- PPI gtt
- Trend H & H
- GI consulted
Borderline TYSON
Borderline hypotension: acute on chronic
- midodrine tid
- Hold Aldactone for now
Intractable Abdominal pain
Last paracentesis 01/03/25 - removed 6.7 L
HX recurrent ascites and SBP.
Decompensated cirrhosis with synthetic dysfunction( Coagulopathy, hypoalbuminemia
Pancytopenia due to ESLD.
- f/u Ascites fluid Cx from yesterday
- Empiric IV Ertapenem
- IV Dilaudid PRN - hold with altered MS
Acute on chronic Hyponatremia -sodium 130
- FR 1.2 L
- observe Na in AM
Prognosis unfortunately remains poor.
DVT Px: SCD
Code: Full
ICU
Total Critical Care Time_65__ minutes. I was immediately available to the patient and staff. I personally examined, reviewed labs, diagnostic images/reports, interpretations, treatment plans, discussed patient care with other providers and family
or caregivers (if patient is unable to make decisions), entered orders as appropriate and documented the medical record.
[2025-01-04] MEDS: DILAUDID 0.5 MG IV ×2 (18:47→22:59)
[2025-01-04] MEDS: PROTONIX 100 IV (18:48)
[2025-01-04] MEDS: PROTONIX IV 40 MG IV (18:48)
[2025-01-04] MEDS: ZOFRAN 4 MG IV (18:48)
--- NOTE | 2025-01-04 22:00 | PTCARENOTE ---
Received pt via transfer from ED. Pt AAOx3 able to ambulate and MOLINA, afebrile. NSR to sinus tach with palpable pulses.98% on RA, lung sounds are diminished with a non productive cough. Abdomen is round and distended with a visible hernia. Pt able to
use urinal to void, urine clear and yellow. Skin CDI aside from scattered ecchymosis on arms, chest and abdomen. Right DL Picc infusing blood products and medications see worklist. Call caballero at bedside.
[2025-01-04] MEDS: INVANZ 60 MG IV (23:36)
[2025-01-05] VITALS (33 sets, daily range): BP systolic 105–138; BP diastolic 57–82; PULSE 74–93; BMI 24.1
--- NOTE | 2025-01-05 00:30 | PTCARENOTE ---
All systems reassessed, pt c/o abdomen pain which he claims is chronic over the past year.
[2025-01-05] MEDS: DILAUDID 0.5 MG IV ×6 (01:56→20:13)
[2025-01-05 02:40] LABS: INR 1.72; PT 20.3 Sec (11.4-14.6)
[2025-01-05 02:47] LABS: ALT (SGPT) 10 U/L (0-50); AST (SGOT) 24 U/L (17-59); Albumin 2.3 g/dl (3.5-5.0); Alkaline Phosphatase 65 U/L (38-126); Blood Urea Nitrogen 70 mg/dl (9-20); Calcium 7.6 mg/dl (8.4-10.2); Carbon Dioxide 21 mmol/L (22-30); Chloride 103 mmol/L (98-107); Estimated Creatinine Clearance 70 ml/min; Glucose 89 mg/dl (70-99); Potassium 3.8 mmol/L (3.5-5.1); Sodium 137 mmol/L (135-145); Total Bilirubin 4.4 mg/dl (0.2-1.3); Total Protein 4.1 g/dl (6.3-8.2); eGFR > 60.00
[2025-01-05] MEDS: PROTONIX 100 IV ×3 (03:15→14:29)
--- NOTE | 2025-01-05 05:08 | PTCARENOTE ---
All systems reassessed, labs drawn and hygiene performed. Call caballero at bedside.
[2025-01-05 06:38] LABS: Hematocrit 19.7 % (39.0-52.0); Hemoglobin 6.9 g/dL (13.0-18.0)
--- NOTE | 2025-01-05 08:16 | CON.INTV ---
Consultation
Consultation Request
Date/Time Consultation Requested: 01/04/2025 - 2220
Date/Time Consultation Performed: 01/05/2025808
Requesting Provider: Dr. Mendes
Performing Provider: Dr. Lala
Reason for Consultation: GI Bleed
Medical History
-
Chief Complaint: Dark bowel movements
History of Present Illness:
59-year-old male with a past medical history of COPD, tobacco use disorder, history of alcohol abuse (abstinent since last year), decompensated cirrhosis of the liver due to alcohol abuse history versus HCV, hypertension, history of meningitis,
anxiety/depression and history of stroke who presents with dark black/purple bowel movements. He was here in the ER on 01/02/2025 due to lower abdominal + pelvic pain. IR performed a paracentesis removing 6700 cc of clear yellow ascitic fluid which
was negative for SBP. He was otherwise nontoxic-appearing and was discharged home. Of note he does take intramuscular ertapenem for history of recurrent SBP due to ESBL E. coli with a history of bacteremia with ESBL E. coli. He he now says that
he is having black stool with abdominal pain. He denies any recent NSAID use. He says that he had [place] food the night prior and just did not feel well the whole next day and that is what led him to come here to the ER again. In the ER he was
afebrile to 98.7 �F, pulse rate 104, respiratory rate 18, BP 104/61 and saturating 99% on room air. Labs showed Hb 6.4, platelet count 96, INR 1.62, BUN 77, serum sodium 130, glucose 130, T. bili 2.9, and lipase 285. CXR showed no acute
cardiopulmonary process. In the ER he was given Dilaudid, Zofran, and started on Protonix drip. given the patient's chronic medical conditions with concern for possible acute upper GI bleed, patient was admitted to the ICU for further care and
heating repair technician services consulted for additional management/recommendations.
When I saw the patient this morning, he was resting in bed in no acute distress. Has some right upper quadrant abdominal pain and pain in his right testy. He is currently on room air, saturating 98% with heart rate 88 and BP 125/65. He has been
having darker stool which she says is not normal for him. He also has pain at his umbilical hernia. He was treated with Epclusa for his history of hep C. He last saw GI on 05/18/2024 with MARCIA Godoy. He also follows with [facility]
with Dr. Dan and is trying to get a liver transplant. He currently denies chest pain, PETERS, nausea, fevers or chills.
PMHx: COPD, history of alcohol abuse (abstinent since 2023), decompensated cirrhosis of the liver (due to alcohol abuse history versus HCV), hypertension, history of meningitis, anxiety/depression, umbilical + right testicular hernia, history of HCV
s/p treatment with Epclusa with SVR, history of stroke
PSHx: Repair of spinal fluid leak, teeth extraction
Past Medical History
Past Medical History: Other (Above as per HPI)
Past Surgical History: Other (Above as per HPI)
Social History
Tobacco: Smoker (55-[id number]-czru history, currently smoking)
Alcohol: Former
Drug: None
Family History
Family History: CAD (Father + mother) and Diabetes (Father + mother)
Allergies / Home Medications
Allergies
Allergy/AdvReac Type Severity Reaction Status Date / Time
No Known Allergies Allergy Verified 01/04/25 18:47
Home Medications
�Medication �Instructions �Recorded �Confirmed �Last Taken �Type
thiamine HCl (vitamin B1) 100 mg 100 mg PO DAILY Supplement 03/13/24 01/04/25 12/31/24 History
tablet
budesonide 160 mcg-glycopyr 9 2 inh inhalation R BID 04/11/24 01/04/25 01/04/25 History
mcg-formot 4.8 mcg/actuation HFA Lung/Breathing Issues
inhaler (Breztri Aerosphere)
magnesium oxide 400 mg PO BID Supplement 06/28/24 01/04/25 12/31/24 History
rifaximin 550 mg tablet (Xifaxan) 550 mg PO BID hepatic 06/28/24 01/04/25 12/31/24 History
encephalopathy
pantoprazole 40 mg tablet,delayed 40 mg PO BID Gastrointestinal Issue 08/02/24 01/04/25 12/31/24 History
release (Protonix)
lidocaine 4 % topical patch 1 patch topical DAILYPRN PRN right 09/08/24 01/04/25 09/19/24 History
knee and right shoulder
miconazole nitrate 2 % topical 1 applic topical BID groin/scrotum 09/08/24 01/04/25 12/31/24 History
powder (Miconazorb AF)
ondansetron HCl 4 mg tablet 4 mg PO DAILYPRN PRN nasuea 09/08/24 01/04/25 Unknown History
phenylephrine 0.25 %-mineral oil 1 applic [place] BID hemorrhoids 09/26/24 01/04/25 01/04/25 History
14 %-petrolatm 74.9 % rectal
ointment
(Hemorrhoidal(phenyleph-min
oil-petrolat))
tramadol 50 mg tablet 50 mg PO BIDPRN PRN 09/26/24 01/04/25 12/31/24 History
moderate-severe pain
spironolactone 25 mg tablet 12.5 mg (1/2 x 25 mg) PO DAILY #30 11/01/24 01/04/25 12/31/24 Rx
tabs
zinc sulfate 50 mg zinc (220 mg) 50 mg PO DAILY Supplement 11/15/24 01/04/25 12/31/24 History
tablet
lactulose 10 gram/15 mL oral 20 g PO TID Constipation 12/14/24 01/04/25 01/04/25 History
solution
midodrine 2.5 mg tablet 2.5 mg PO TID@0800,1300,1800 #90 12/22/24 01/04/25 12/31/24 Rx
tabs
ertapenem 1 gram solution for 1 g IV Q24H 01/04/25 01/04/25 01/03/25 History
injection
folic acid 400 mcg tablet 0.4 mg PO DAILY 01/04/25 01/04/25 01/04/25 History
oxycodone 5 mg tablet 5 mg PO Q6HPRN PRN severe pain 01/04/25 01/04/25 Unknown History
Review of Systems
-
History Source: Patient
All other systems: Negative unless noted
Vitals / Labs / Diagnostic Testing
Vital Signs
Temp Pulse Resp BP Pulse Ox
98 F 91 21 109/82 98
01/05/25 07:41 01/05/25 09:06 01/05/25 09:06 01/05/25 09:06 01/05/25 09:06
Lab Data
01/05/25 04:21
01/05/25 02:14
Laboratory Results
01/04/25 01/05/25
15:29 02:14
PT 19.4 H 20.3 H
INR 1.62 1.72
APTT 35.9 H
Diagnostic Testing:
Physical Exam
-
HEENT: Normocephalic and Anicteric
Cardiovascular: S1/S2, Rub (negative) and Peripheral Edema (negative)
Respiratory: Wheeze (negative), Rales (negative), Rhonchi (negative) and Non-Labored Respirations
GI: Tender (RUQ and at his umbilical hernia site), Normal Bowel Sounds, Other (Umbilical hernia which is tender to palpation) and Other (Abdomen is distended, firm but not rigid)
Neurology: AO x 3 and Tremors (negative)
Skin: Warm and Dry
General: Respiratory Distress (negative), Comfortable, Fever (negative) and Chills (negative)
Assessment
-
Assessment: 59-year-old male with a past medical history of COPD, tobacco use disorder, history of alcohol abuse (abstinent since last year), decompensated cirrhosis of the liver due to alcohol abuse history versus HCV, hypertension, history of
meningitis, anxiety/depression and history of stroke who presents with dark black/purple bowel movements. He was here in the ER on 01/02/2025 due to lower abdominal + pelvic pain. IR performed a paracentesis removing 6700 cc of clear yellow ascitic
fluid which was negative for SBP. He was otherwise nontoxic-appearing and was discharged home. Of note he does take intramuscular ertapenem for history of recurrent SBP due to ESBL E. coli with a history of bacteremia with ESBL E. coli. He he now
says that he is having black stool with abdominal pain. He denies any recent NSAID use. He says that he had [place] food the night prior and just did not feel well the whole next day and that is what led him to come here to the ER again. In the
ER he was afebrile to 98.7 �F, pulse rate 104, respiratory rate 18, BP 104/61 and saturating 99% on room air. Labs showed Hb 6.4, platelet count 96, INR 1.62, BUN 77, serum sodium 130, glucose 130, T. bili 2.9, and lipase 285. CXR showed no acute
cardiopulmonary process. In the ER he was given Dilaudid, Zofran, and started on Protonix drip. given the patient's chronic medical conditions with concern for possible acute upper GI bleed, patient was admitted to the ICU for further care and
heating repair technician services consulted for additional management/recommendations.
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
hernia, history of HCV s/p treatment with Epclusa with SVR, history of stroke
Impression:
#Acute upper gastrointestinal hemorrhage with melena
#Chronic anemia (baseline Hb 6.5-8 g/dL)
#Chronic thrombocytopenia (baseline platelet count 40�95)
#Elevated T. bili (chronic)
#Decompensated cirrhosis (EtOH vs HCV) with history of gastric varices s/p gastric artery coiling (09/2024), portal hypertensive gastropathy, history of HE, recurrent SBP + ascites
#History of GI bleed
#Hx of HCV s/p Epclusa with SVR
#Portal hypertension due to decompensated cirrhosis
#History of valvular heart disease with mild MS, mild MR, mild aortic stenosis and mild AI (per TTE from 12/17/2024)
#COPD, not currently in and acute exacerbation on Breztri as an outpatient
#History of pneumonia
#Tobacco use disorder (72-[id number]-nuou history and continues to smoke)
Plan:
- I was going to add octreotide drip, however spoke with GI (Dr. Weaver) and pt does not have an overt GI bleed - he has a Hx of oozing from Hx of portal gastropathy. Pt will be started on clear liquid diet and he can likely be downgraded today;
no need for octreotide at this time
- Maintain large-bore IV x 1-2
- Defer diet to GI and ADAT
- PPI gtt --> change to q12hr dosing per GI
- Continue with antibiotics, currently on ertapenem given recurrent history of SBP due to ESBL E. coli (last body fluid culture positive on 12/14/2024); follow-up with ID arranged for 01/16/2025
- Thankfully the last paracentesis on 01/03/2025 was negative for SBP
- Patient received 2 units PRBC on 01/04/2025 however Hb this AM,Hb was still 6.9 from 6.4 on 01/04/2025 at 3:30 PM-->transfuse another 1 U PRBC to reach Hb>7g/dL; keep plt>50k, INR<1.8
- Given his history of gastric varices and possibly EV, would not raise Hb past 8-8.5 g/dL; of note his last EGD in April 30 did not show any esophageal varices
- Resume lactulose and rifaximin
- Neurochecks to assure he is not developing HE
- Follow up with GI as an outpatient, and also with [facility] with Dr. Dan as he is trying to obtain a liver transplant
- He takes Breztri as an outpatient --> continue symbicort + Spiriva for now with prn albuterol
- Start nicotine patch
-Outpatient follow-up with our office � last saw Maryse [place]MARCIA on 03/30/2024
- Maintain SpO2 >90-94%, currently on room air breathing comfortably
- Maintain MAP>65
- Replete electrolytes with K>4, Mg>2
- Maintain euglycemia with goal BG 140-180
- prn nebulized bronchodilators - not currently bronchospastic
- Incentive spirometer encouraged 10x per hour for at least 4 hrs a day
- DVT ppx: SCDs for now
H&H remains >7, and GI is okay with us downgrading him to telemetry. Patient stable for downgrade to telemetry. No additional recommendations at this time. Funeral Director/Embalmer/Owner/Pulmonary service will now sign off. Thank you for allowing us to be involved
in the care of this patient. Please reconsult if there are any additional questions/concerns, or if patient's respiratory status deteriorates.
Total time spent today was 57 minutes for this encounter. Time includes reviewing laboratory test/imaging results, reviewing pertinent medical records, obtaining and reviewing medical history, performing an appropriate exam, ordering medications,
tests and procedures. Time also includes documentation of this encounter, coordinating patient care and communicating with other healthcare professionals. Total time does not include separately billed tests performed on this date of service.
[2025-01-05] MEDS: ProAmatine PO ×3 (09:01→18:34)
--- NOTE | 2025-01-05 11:01 | CM ---
Initial assessment completed. Prev admitted 12/14-12/22. Admitted for black stool , abdominal pain.
Per chart, pt resides w/ spouse in [facility] w/ 1st floor set up.
DME: Cane, shower chair, grab bars.
Current w/ [facility]
PCP: Dr. Goss
Pharmacy: [facility]
GI and grocery bagger consulted
Plan: CM will cont to follow for d/c planning
[2025-01-05] MEDS: ROXICODONE 5 MG PO (13:51)
[2025-01-05] MEDS: FLEXERIL 5 MG PO (14:29)
--- NOTE | 2025-01-05 14:32 | CON.GI ---
Consultation
-
Date/Time Consultation Requested: 01/04/2025
Date/Time Consultation Performed: 01/05/2025
Requesting Provider: Hospitalist
Performing Provider: Olga MASCORRO
Reason for Consultation: anemia/ cirrrhosis
Medical History
Chief Complaint / HPI
Chief Complaint: Abdominal pain/dark stool
History of Present Illness:
59 y.o male well-known to GI group with past medical history significant for decompensated cirrhosis (HCV vs EtOH) with intractable ascites with weekly paracentesis, HE, GI bleeding by recurrent hospitalizations with HE secondary to acute on chronic
GI bleeding 2/2 PHG, gastric varix, hx of prior post-polypectomy bleed, prior transfer to [facility] for Ultrasound guided gastric artery coiling procedure (09/2024), chronic HCV (s/p treatment with Epclusa s/p SVR), CVA, HTN, COPD, and chronic
thrombocytopenia. Hx of recurrent SBP treated with ertapenem, ecoli ESBL blood/peritoneal fluid, intermediate to doxycycline and required IV ertapenem via midline as an outpatient until 12/06/24. He had a + tox screen for cocaine on admission in
October, patient denied use. Patient had repeat outpatient PETH testing that was negative. Melena with GI bleeding status post EGD on 11/16/2024 findings of oozing portal hypertensive gastropathy treated with APC, ileus and TYSON. He continues to
follow with Dr. Dan as an outpatient. Patient was admitted last month and was discharged on 12/22/2024.
Patient is here at this time complaining of abdominal pain after eating [place] food. He claims he had baseline abdominal pain but this was severe. He also reported dark stool 2 days back. Currently denies any severe abdominal pain. No bowel
movements for the last 2 days. Denies any nausea or vomiting
Last paracentesis 01/03/2025 with removal of 6700 cc fluid. Fluid studies negative for SBP
Past Medical History
Past Medical History: Other
Past Surgical History: Other (Mohs surgery))
Social History
Tobacco: Non-Smoker
Alcohol: Former
Drug: Former User
Personal:
Allergies / Home Medications
Allergy/AdvReac Type Severity Reaction Status Date / Time
No Known Allergies Allergy Verified 01/04/25 18:47
�Medication �Instructions �Recorded
thiamine HCl (vitamin B1) 100 mg 100 mg PO DAILY Supplement 03/13/24
tablet
budesonide 160 mcg-glycopyr 9 2 inh inhalation R BID 04/11/24
mcg-formot 4.8 mcg/actuation HFA Lung/Breathing Issues
inhaler (Breztri Aerosphere)
magnesium oxide 400 mg PO BID Supplement 06/28/24
rifaximin 550 mg tablet (Xifaxan) 550 mg PO BID hepatic 06/28/24
encephalopathy
pantoprazole 40 mg tablet,delayed 40 mg PO BID Gastrointestinal Issue 08/02/24
release (Protonix)
lidocaine 4 % topical patch 1 patch topical DAILYPRN PRN right 09/08/24
knee and right shoulder
miconazole nitrate 2 % topical 1 applic topical BID groin/scrotum 09/08/24
powder (Miconazorb AF)
ondansetron HCl 4 mg tablet 4 mg PO DAILYPRN PRN nasuea 09/08/24
phenylephrine 0.25 %-mineral oil 1 applic DC BID hemorrhoids 09/26/24
14 %-petrolatm 74.9 % rectal
ointment
(Hemorrhoidal(phenyleph-min
oil-petrolat))
tramadol 50 mg tablet 50 mg PO BIDPRN PRN 09/26/24
moderate-severe pain
spironolactone 25 mg tablet 12.5 mg (1/2 x 25 mg) PO DAILY #30 11/01/24
tabs
zinc sulfate 50 mg zinc (220 mg) 50 mg PO DAILY Supplement 11/15/24
tablet
lactulose 10 gram/15 mL oral 20 g PO TID Constipation 12/14/24
solution
midodrine 2.5 mg tablet 2.5 mg PO TID@0800,1300,1800 #90 12/22/24
tabs
ertapenem 1 gram solution for 1 g IV Q24H 01/04/25
injection
folic acid 400 mcg tablet 0.4 mg PO DAILY 01/04/25
oxycodone 5 mg tablet 5 mg PO Q6HPRN PRN severe pain 01/04/25
Review of Systems
-
All other systems: A 12 pt ROS was Negative except as stated above in HPI
Vital Signs
Temp Pulse Resp BP Pulse Ox
98.4 F 101 20 120/60 98
01/05/25 12:47 01/05/25 13:49 01/05/25 12:47 01/05/25 13:49 01/05/25 12:09
Physical Exam
Exam
General: Well Developed, Well Nourished and No Apparent Distress
Respiratory: Clear
Cardiac: S1/S2
GI: Soft, Non Tender and Distended (Mildly distended)
Neuro: AO x 3
Results
WBC 8.5 10^3/uL (4.8-10.8) 01/04/25 15:29
Hgb 6.9 g/dL (13.0-18.0) L* 01/05/25 04:21
Hct 19.7 % (39.0-52.0) L* 01/05/25 04:21
MCV 91.7 fL (80.0-94.0) 01/04/25 15:29
Plt Count 96 10^3/uL (130-400) L 01/04/25 15:29
Absolute Neuts (auto) 6.8 10^3/uL (1.4-6.5) H 01/04/25 15:29
PT 20.3 Sec (11.4-14.6) H 01/05/25 02:14
INR 1.72 01/05/25 02:14
APTT 35.9 Sec (23.4-35.0) H 01/04/25 15:29
Sodium 137 mmol/L (135-145) 01/05/25 02:14
Potassium 3.8 mmol/L (3.5-5.1) 01/05/25 02:14
Chloride 103 mmol/L (98-107) 01/05/25 02:14
Carbon Dioxide 21 mmol/L (22-30) L 01/05/25 02:14
BUN 70 mg/dl (9-20) H 01/05/25 02:14
Creatinine 1.1 mg/dL (0.7-1.3) 01/05/25 02:14
Calcium 7.6 mg/dl (8.4-10.2) L 01/05/25 02:14
Total Bilirubin 4.4 mg/dl (0.2-1.3) H D 01/05/25 02:14
AST 24 U/L (17-59) 01/05/25 02:14
ALT 10 U/L (0-50) 01/05/25 02:14
Alkaline Phosphatase 65 U/L (38-126) 01/05/25 02:14
Lipase 285 U/L (23-300) 01/04/25 15:29
Diagnostic Image Results:
Prior GI Procedures:
11/16/2024 EGD ([facility]) - Bleb found in the esophagus.
- Gastric varices, without bleeding.
- Bleeding Portal hypertensive gastropathy. Treated
with a monopolar probe.
- No specimens collected.
09/2024 gastric art coiling procedure at [facility] -- report pending
09/11/2024 EGD [facility] (Dr. Malcolm) : Normal esophagus. Type I isolated gastric varices (IGV 1, varices located in the fundus) without bleeding. Normal examined duodenum. No specimens collected.
09/09/24 EGD [facility] - Type 1 isolated gastric varices (IGV1, varices
located in the fundus) with a small amount of oozing
and stigmata of recent bleeding found in the gastric
fundus. This is the source of patient's presentation.
No endoscopic therapy was performed given large
isolated gastric varices as these were not contiguous
with the GE-junction
- Moderate portal hypertensive gastropathy
- Otherwise, normal stomach on direct and retroflexion
views
- Normal esophagus without any esophageal varices
- Small amount of red blood in the second portion of
the duodenum. No duodenal varices were visualized
- The examination was otherwise normal.
- No specimens collected.
colonoscopy 08/22/24 Charlotte Bunn MD Non-bleeding internal hemorrhoids were found during retroflexion. The
hemorrhoids were large.
Multiple diverticula were found in the sigmoid colon and descending
colon.
The exam was otherwise without abnormality.
Diffuse colopathy
Old ovesco clip seen in ascending colon
An 8 mm polyp was found in the sigmoid colon. The polyp was sessile.
Polypectomy was not attempted given recent GI bleeding.
repeat colon 6-12 month with fair prep and polyps removed
Small bowel enteroscopy 08/22/24 Charlotte Bunn MD
- Normal esophagus.
- Severe portal hypertensive gastropathy with active
bleeding. Treated with argon plasma coagulation (APC).
- 2 cm hiatal hernia.
- Normal examined duodenum.
- The examined portion of the jejunum was normal.
- No specimens collected.
EGD: 06/29/24 maci Gaviria MD - Normal esophagus.
- Portal hypertensive gastropathy.
- Normal examined duodenum.
- No specimens collected.
05/07/[address] Smith : - Hemorrhoids found on perianal exam.
- The examined portion of the ileum was normal.
- Foreign body (OVSCO clip) at the hepatic flexure.
- Polypoid lesion at the hepatic flexure.
- Diverticulosis in the sigmoid colon and in the
descending colon.
- Internal hemorrhoids.
- No specimens collected.
Colonoscopy 04/13/2024-[facility] - One 15 to 18 mm polyp at the hepatic flexure,
removed using lift and cut and a hot snare and removed
with a cold snare. Resected and retrieved. Injected.
Treated with hot biopsy forceps. Ligated.
- One 4 mm polyp in the descending colon, removed with
a hot snare. Resected and retrieved. Clip was placed.
- Diverticulosis in the sigmoid colon, in the
descending colon and at the splenic flexure.
bx DC -TA and HF - HP polyp
EGD 04/13/2024� [facility] - No gross lesions in the entire esophagus. No varices.
- Z-line variable, 42 cm from the incisors.
- Portal hypertensive gastropathy.
- Normal examined duodenum.
- No specimens collected.
EGD:12/27/22 [facility] - Normal esophagus.
- Portal hypertensive gastropathy.
- Normal examined duodenum.
- No specimens collected.
Assessment / Plan
-
59 y.o male well-known to GI group with past medical history significant for decompensated cirrhosis (HCV vs EtOH) with intractable ascites with weekly para, HE, GI bleeding by recurrent hospitalizations with HE secondary to acute on chronic GI
bleeding 2/2 PHG gastric varix, hx of prior post-polypectomy bleed, prior transfer to [facility] for Ultrasound guided gastric artery coiling procedure (09/2024), chronic HCV (s/p treatment with Epclusa s/p SVR), CVA, HTN, COPD, and chronic
thrombocytopenia. Last EGD 11/16/2024 with oozing portal hypertensive gastropathy treated with APC. Hx of recurrent SBP, ecoli ESBL blood/peritoneal fluid, intermediate to doxycycline and required IV ertapenem who was discharged from the hospital
12/22/2024 admitted with severe abdominal pain and dark stools. Patient reports abdominal pain after eating [place] food. Denies any nausea or vomiting. Currently abdominal pain feeling better. No dark stools for the last 2 days. Last
paracentesis 01/03/2025 - no SBP.
-- Acute on chronic abdominal pain. patient currently feeling better and hungry. Last paracentesis negative for SBP few days back
--Acute on chronic anemia. Dark stool-currently resolved. Rectal exam dark brown�black stool. admission hemoglobin 6.4
-- Decompensated liver cirrhosis with multiple hospital admissions-MELD - Na 01/05/2025- [address] up [address] Dan at [facility]. He claims he could not make it to his last appointment
-- Recurrent SBP secondary to ESBL E. coli. On ertapenem
plan
Continue monitor H&H. Transfuse to keep hemoglobin above 7
continue PPI
Will start him on liquid diet
continue ertapenem (last ID note 12/22 suggest 4 to 6 weeks of ertapenem as outpatient)
Aldactone on hold with borderline hypotension. Okay to restart if BP stable. Continue midodrine
Although BUN was elevated patient does not have any overt GI bleeding. Less likely variceal bleeding. patient had acute on chronic anemia on multiple occasions in the past requiring multiple transfusions. Will continue to monitor. Will consider
repeat EGD if any evidence of overt GI bleeding
Repeat ultrasound abdomen. If significant fluid will repeat paracentesis
daily MELD labs
Overall poor prognosis. Hospice has been discussed in the past.
Total Time Spent with Patient (in minutes): 55
-
-
Thank you for consultation and allowing me to participate in the patient's care. Please call the air conditioning insulation installer GI physician during the after hours with any questions or concerns.
[2025-01-05 15:50] LABS: Hematocrit 21.6 % (39.0-52.0); Hemoglobin 7.5 g/dL (13.0-18.0); Mean Corp Hgb Conc. 34.7 g/dL (33.0-37.0); Mean Corpuscular Hgb 31.3 pg (27.0-31.0); Mean Platelet Volume 10.5 fL (7.4-10.4); Platelet Count 68 10^3/uL (130-400); Red Cell Dist. Width 16.5 % (11.5-14.5); White Blood Cell Count 5.3 10^3/uL (4.8-10.8)
--- NOTE | 2025-01-05 16:25 | W.PN.HOSP.TC ---
Today's Communication/Plan
-
See plan
Appreciate Eye Technician and GI
Assessment / Plan
Assessment / Plan
Physical Exam
General: No Apparent Distress
HEENT: Normocephalic and Atraumatic
Respiratory: Negative Wheezes
Cardiac: Regular Rhythm and S1/S2
GI: Soft. Nontender. Positive bowel sounds.
Neuro: AAO x 3
Psych: Calm
Assessment/Plan
Acute on chronic abdominal pain
Acute on chronic anemia with melena
-Continue to monitor H&H. Transfuse to keep hemoglobin above 7
-Continue PPI
-Liquid diet as per GI
-GI to consider EHD
Recent Recurrent SBP Secondary to ESBL E. coli.
Recent Bacteremia with ESBL E. coli.
Recent Sepsis due to recurrent SBP -sepsis improving.
-Continue Ertapenem as per ID on recent admission
Episode of hemoptysis/hematemesis on 12/19, self-limited. Monitor closely.
Decompensated cirrhosis -presentation with recurrent ascites and SBP on recent admission.
ESLD
Hyponatremia - monitor BMP
Pancytopenia -WBC count currently normal, platelet count 54,000. Etiology of pancytopenia due to ESLD.
History of GI bleed
COPD without exacerbation
Gastric varices
Portal hypertensive gastropathy
Full code
DVT PPx: SCDs
Anticipated Discharge: > 48 hours
Subjective/Interval History
-
Date of Service: January 05, 2025
Patient was seen and examined. He reported no more bloody bowel movements overnight. He denied any new significant symptoms or complaints.
Objective Data
-
Labs:
Laboratory Results
01/05/25 01/05/25
04:21 15:38
WBC 5.3
Hgb 6.9 L* 7.5 L
Hct 19.7 L* 21.6 L
Plt Count 68 L D
Vital Signs:
Vital Signs
Temp Pulse Resp BP Pulse Ox
98.4 F 88 17 128/65 98
01/05/25 15:43 01/05/25 15:43 01/05/25 15:43 01/05/25 15:43 01/05/25 12:09
I&O
01/04/25 01/05/25 01/06/25
06:59 06:59 06:59
Intake Total 920 / 1050 990 / 990
Output Total 450 / 450 400 / 400
Balance 470 / 600 590 / 590
--- NOTE | 2025-01-05 17:32 | PTCARENOTE ---
Assessment unchanged thru shift.Patient sit stand at bedsdie several times thru shift. Patient ambulated to bathroom with staff. Continue with mobility protocols. Continue to reinforce teaching. Channel Cementer Insole Machine team in and out at bedside. Hospitalist
update with patient continue h/h trends and follow. Protonix dripp unchanged. Continue follow up medications via [facility]. Update patient at bedside and via phone. Continue ongoing supportive cares.
[2025-01-05] MEDS: XIFAXAN 550 MG PO (20:07)
--- NOTE | 2025-01-05 20:23 | PTCARENOTE ---
Received pt via handoff. Pt AAOx3 able to ambulate and MOLINA, afebrile. NSR to sinus tach with palpable pulses.98% on RA, lung sounds are diminished with a non productive cough. Abdomen is round and distended with a visible hernia. Pt able to use
urinal to void, urine clear and yellow. Skin CDI aside from scattered ecchymosis on arms, chest and abdomen. Right DL Picc infusing protonix see worklist. Call caballero at bedside.
[2025-01-05 22:16] LABS: Hemoglobin 7.3 g/dL (13.0-18.0)
[2025-01-06] VITALS (11 sets, daily range): BP systolic 110–131; BP diastolic 40–79; PULSE 87; O2SAT 92; BMI 24.3
[2025-01-06] MEDS: INVANZ 60 MG IV ×2 (00:25→22:09)
[2025-01-06] MEDS: DILAUDID 0.5 MG IV ×5 (00:25→19:15)
[2025-01-06] MEDS: DUPHALAC/CHRONULAC PO (00:26)
--- NOTE | 2025-01-06 00:38 | PTCARENOTE ---
All systems reassessed, status remains the same, call caballero at bedside.
[2025-01-06] MEDS: PROTONIX 100 IV ×2 (01:00→08:05)
[2025-01-06 03:30] LABS: Hematocrit 22.1 % (39.0-52.0); Hemoglobin 7.7 g/dL (13.0-18.0); Mean Corp Hgb Conc. 34.8 g/dL (33.0-37.0); Mean Corpuscular Hgb 31.2 pg (27.0-31.0); Mean Corpuscular Volume 89.5 fL (80.0-94.0); Mean Platelet Volume 9.6 fL (7.4-10.4); Platelet Count 70 10^3/uL (130-400); Red Blood Cell Count 2.47 10^6/uL (4.70-6.10); Red Cell Dist. Width 16.8 % (11.5-14.5); White Blood Cell Count 5.6 10^3/uL (4.8-10.8)
[2025-01-06 03:55] LABS: ALT (SGPT) 13 U/L (0-50); AST (SGOT) 33 U/L (17-59); Albumin 2.6 g/dl (3.5-5.0); Alkaline Phosphatase 84 U/L (38-126); Blood Urea Nitrogen 62 mg/dl (9-20); Calcium 8.2 mg/dl (8.4-10.2); Carbon Dioxide 23 mmol/L (22-30); Chloride 101 mmol/L (98-107); Estimated Creatinine Clearance 64 ml/min; Glucose 115 mg/dl (70-99); Magnesium 2.6 mg/dl (1.6-2.3); Phosphorus 3.9 mg/dl (2.5-4.5); Potassium 3.9 mmol/L (3.5-5.1); Sodium 129 mmol/L (135-145); Total Bilirubin 3.3 mg/dl (0.2-1.3); Total Protein 4.5 g/dl (6.3-8.2); eGFR > 60.00
[2025-01-06] MEDS: ALDACTONE 12.5 MG PO (08:04)
[2025-01-06] MEDS: FOLVITE 0.4 MG PO (08:04)
[2025-01-06] MEDS: ProAmatine 2.5 MG PO (08:04)
[2025-01-06] MEDS: VITAMIN B1 100 MG PO (08:04)
[2025-01-06] MEDS: XIFAXAN 550 MG PO ×2 (08:05→19:04)
[2025-01-06] MEDS: DUPHALAC/CHRONULAC 20 GRAMS PO ×3 (08:05→22:09)
--- NOTE | 2025-01-06 09:57 | PTCARENOTE ---
Updated assessment, vital signs ongoing and as documented. Update with Hospitalist team this am, and at bedside for patient. Await GI team for plan of cares. PT/OT working with patient presently. Continue with skin cares, oral cares and bowel
program. Follow up trends thru day. Medications as per pharmacy and follow up via [facility]. Continue hourly rounds, frequent patient safety checks, call caballero instruct, reinforce and demonstration.
[2025-01-06] MEDS: FLEXERIL 5 MG PO (11:07)
--- NOTE | 2025-01-06 12:58 | W.PN.GI.CBS2 ---
Today's Communication / Plan
-
2 g sodium diet
Continue monitor H&H
Assessment / Plan
-
59 y.o male well-known to GI group with past medical history significant for decompensated cirrhosis (HCV vs EtOH) with intractable ascites with weekly para, HE, GI bleeding by recurrent hospitalizations with HE secondary to acute on chronic GI
bleeding 2/2 PHG gastric varix, hx of prior post-polypectomy bleed, prior transfer to [place] for Ultrasound guided gastric artery coiling procedure (09/2024), chronic HCV (s/p treatment with Epclusa s/p SVR), CVA, HTN, COPD, and chronic
thrombocytopenia. Last EGD 11/16/2024 with oozing portal hypertensive gastropathy treated with APC. Hx of recurrent SBP, ecoli ESBL blood/peritoneal fluid, intermediate to doxycycline and required IV ertapenem who was discharged from the hospital
12/22/2024 admitted with severe abdominal pain and dark stools. Patient reports abdominal pain after eating [place] food. Denies any nausea or vomiting. Currently abdominal pain feeling better. No dark stools for the last 2 days. Last
paracentesis 01/03/2025 - no SBP.
-- Acute on chronic abdominal pain. patient currently feeling better and hungry. Last paracentesis negative for SBP few days back
--Acute on chronic anemia. Dark stool-currently resolved. Rectal exam dark brown�black stool. admission hemoglobin 6.4
-- Decompensated liver cirrhosis with multiple hospital admissions-MELD - Na 01/05/2025- 19 [address] up with Dr. Dan at [facility]. He claims he could not make it to his last appointment
-- Recurrent SBP secondary to ESBL E. coli. On ertapenem
plan
Received 3 units PRBC. Hb this a.m. 7.7. Denies any overt GI bleeding. Patient claims he is hungry and would like to eat
2 g sodium diet
Continue monitor H&H. Transfuse to keep hemoglobin above 7
continue PPI twice daily
continue ertapenem (last ID note 12/22 suggest 4 to 6 weeks of ertapenem as outpatient)
Aldactone on hold with borderline hypotension. Okay to restart if BP stable. Continue midodrine
Although BUN was elevated patient does not have any overt GI bleeding. Less likely variceal bleeding. patient had acute on chronic anemia on multiple occasions in the past requiring multiple transfusions. Will continue to monitor. Will consider
repeat EGD if any evidence of overt GI bleeding
Repeat ultrasound abdomen. If significant fluid will repeat paracentesis
daily MELD labs
Overall poor prognosis. Hospice has been discussed in the past.
Total Time Spent with Patient (in minutes): 35
Subjective
Subjective
Date of Service: January 06, 2025
Tolerating liquid diet. Denies any nausea vomiting or abdominal pain. Denies any dark stool or blood in the stool
Objective
Data Reviewed
Laboratory Data:
Laboratory Results
01/06/25 03:15
01/06/25 03:15
Laboratory Results
PT 20.3 Sec (11.4-14.6) H 01/05/25 02:14
INR 1.72 01/05/25 02:14
APTT 35.9 Sec (23.4-35.0) H 01/04/25 15:29
Phosphorus 3.9 mg/dl (2.5-4.5) 01/06/25 03:15
Magnesium 2.6 mg/dl (1.6-2.3) H 01/06/25 03:15
Total Bilirubin 3.3 mg/dl (0.2-1.3) H 01/06/25 03:15
AST 33 U/L (17-59) 01/06/25 03:15
ALT 13 U/L (0-50) 01/06/25 03:15
Alkaline Phosphatase 84 U/L (38-126) 01/06/25 03:15
Lipase 285 U/L (23-300) 01/04/25 15:29
Vital Signs and I&O:
Vital Signs
Temp Pulse Resp BP Pulse Ox
98.5 F 81 9 118/63 99
01/06/25 11:58 01/06/25 11:45 01/06/25 11:45 01/06/25 10:03 01/06/25 11:59
I&O
01/05/25 01/06/25 01/07/25
06:59 06:59 06:59
Intake Total 920 / 1050 1710 / 1720 300 / 300
Output Total 450 / 450 1750 / 1750 600 / 600
Balance 470 / 600 -40 / -30 -300 / -300
Physical Exam
Physical Exam
GI: Soft, Distended and Tender (Mild upper abdominal tenderness-claims it is chronic)
[2025-01-06] MEDS: ProAmatine PO ×2 (14:06→19:03)
--- NOTE | 2025-01-06 14:26 | PTCARENOTE ---
Patient continues to ambulate room. updated at bedside. Continue follow up teaching and supportive cares. Follow advanced diet and any medication changes. Continue ongoing rounds. Positive dark brown/black bm in bathroom. Continue with mobility
pt/ot follow up. Labs and assessment ongoing.
--- NOTE | 2025-01-06 14:55 | W.PN.HOSP.TC ---
Today's Communication/Plan
-
Monitor Hgb and monitor clinically for another 24 hours and if stable, then can discharge (discussed this today with GI who recommended this plan)
Appreciate GI
Assessment / Plan
Assessment / Plan
Physical Exam
General: No Apparent Distress
HEENT: Normocephalic and Atraumatic
Respiratory: Negative Wheezes
Cardiac: Regular Rhythm and S1/S2
GI: Soft. Nontender. Positive bowel sounds.
Neuro: AAO x 3
Psych: Calm
Assessment/Plan
Acute on chronic abdominal pain
Acute on chronic anemia with melena
-Although BUN was elevated patient does not have any overt GI bleeding, and per GI this is less likely to be variceal bleeding; patient had acute on chronic anemia on multiple
occasions in the past requiring multiple transfusions.
-Received 3 units PRBC. Hgb this a.m. 7.7.
-Today, I communicated via [facility] with on-call clinical appeals reviewer Dr. Jennifer Weaver and he recommended keeping patient in the hospital and continue
to monitor his hemoglobin, and if hemoglobin is stable going into tomorrow, then can discharge patient.
-Continue to monitor H&H. Transfuse to keep hemoglobin above 7
-Continue PPI: switch PPI drip to BID
-Advance diet to solid food as per GI
-GI to consider EGD depending on whether patient has overt gastrointestinal bleeding
Recent Recurrent SBP Secondary to ESBL E. coli.
Recent Bacteremia with ESBL E. coli.
Recent Sepsis due to recurrent SBP -sepsis improving.
-Currently on Ertapenem outpatient (and continued inpatient) given recurrent history of SBP due to ESBL E. coli (last body fluid culture positive on 12/14/2024); follow-up with ID arranged for 01/16/2025 -- see Infectious Disease progress note from
12/22/24
-Repeat abdominal ultrasound -- if there is significant fluid present, then plan is for repeat paracentesis
Decompensated cirrhosis
-presentation with recurrent ascites and SBP on recent admission.
-Continue lactulose and rifaximin
-Follow up with GI as an outpatient, and also with [facility] with Dr. Dan as he is trying to obtain a liver transplant
ESLD
Hyponatremia
-monitor BMP. Continue 40 ounces PO daily fluid restriction.
Pancytopenia
-WBC count currently normal, platelet count 54,000. Etiology of pancytopenia due to ESLD.
History of GI bleed
COPD without exacerbation
-Patient takes Breztri as an outpatient --> continue symbicort + Spiriva while inpatient, with PRN albuterol
-Start nicotine patch
-Outpatient follow-up with [facility] pulmonary office � last saw MARCIA Ortiz on 03/30/2024
Gastric varices
Portal hypertensive gastropathy
Full code
DVT PPx: SCDs. No chemical DVT prophylaxis given concern for GI bleed and anemia.
Anticipated Discharge: 24 - 48 hours
Subjective/Interval History
-
Date of Service: January 06, 2025
Patient was seen and examined. He tolerated a liquid diet, and denied any nausea vomiting or abdominal pain, and he stated he did not have any dark stool or blood in the stool overnight.
Objective Data
-
Labs:
Laboratory Results
01/06/25
03:15
WBC 5.6
Hgb 7.7 L
Hct 22.1 L
Plt Count 70 L
Sodium 129 L D
Potassium 3.9
Chloride 101
Carbon Dioxide 23
BUN 62 H
Creatinine 1.2
Glucose 115 H
Calcium 8.2 L
Total Bilirubin 3.3 H
AST 33
ALT 13
Alkaline Phosphatase 84
Vital Signs:
Vital Signs
Temp Pulse Resp BP Pulse Ox
98.5 F 87 9 131/84 99
01/06/25 11:58 01/06/25 14:06 01/06/25 11:45 01/06/25 14:06 01/06/25 11:59
I&O
01/05/25 01/06/25 01/07/25
06:59 06:59 06:59
Intake Total 920 / 1050 1710 / 1720 575 / 575
Output Total 450 / 450 1750 / 1750 800 / 800
Balance 470 / 600 -40 / -30 -225 / -225
--- NOTE | 2025-01-06 15:26 | PTCARENOTE ---
No changes in assessment. Patient continues to be mobile around room. home at this time. Reinforce teaching from day. Follow up with hospitalist team and GI. Ongoing plan of cares. Protonix drip dc'd now Q12 po follow up with pharmacy and [facility].
Hourly rounds, call caballero in use. Tolerating diet. Positive BMx2. Continue lab trends and assessment trends.
[2025-01-06] MEDS: NSS (PRESERVATIVE FREE) 10 ML IV (19:04)
[2025-01-06] MEDS: PROTONIX IV 40 MG IV (19:04)
--- NOTE | 2025-01-06 19:26 | PTCARENOTE ---
Received pt via handoff. Pt AAOx3 able to ambulate and MOLINA, afebrile. NSR to sinus tach with palpable pulses.98% on RA, lung sounds are diminished with a non productive cough. Abdomen is round and distended with a visible hernia. Pt able to use
urinal to void, urine clear and yellow. Skin CDI aside from scattered ecchymosis on arms, chest and abdomen.. Call caballero at bedside.
[2025-01-07] VITALS (12 sets, daily range): BP systolic 93–125; BP diastolic 52–70; PULSE 84; BMI 24.5
[2025-01-07] MEDS: DILAUDID 0.5 MG IV ×3 (01:39→13:56)
[2025-01-07 04:49] LABS: Hematocrit 21.7 % (39.0-52.0); Hemoglobin 7.5 g/dL (13.0-18.0); Mean Corp Hgb Conc. 34.6 g/dL (33.0-37.0); Mean Corpuscular Hgb 31.3 pg (27.0-31.0); Mean Corpuscular Volume 90.4 fL (80.0-94.0); Platelet Count 83 10^3/uL (130-400); White Blood Cell Count 5.6 10^3/uL (4.8-10.8)
[2025-01-07 05:12] LABS: ALT (SGPT) 15 U/L (0-50); AST (SGOT) 36 U/L (17-59); Albumin 2.7 g/dl (3.5-5.0); Alkaline Phosphatase 108 U/L (38-126); Blood Urea Nitrogen 44 mg/dl (9-20); Carbon Dioxide 23 mmol/L (22-30); Chloride 96 mmol/L (98-107); Estimated Creatinine Clearance 70 ml/min; Glucose 105 mg/dl (70-99); Magnesium 2.5 mg/dl (1.6-2.3); Phosphorus 3.5 mg/dl (2.5-4.5); Potassium 4.2 mmol/L (3.5-5.1); Sodium 126 mmol/L (135-145); Total Bilirubin 2.8 mg/dl (0.2-1.3); Total Protein 4.6 g/dl (6.3-8.2); eGFR > 60.00
--- NOTE | 2025-01-07 07:10 | W.PN.HOSP.TC ---
Addendum entered and electronically signed by Clementina Hernandez MD 01/08/25 06:09:
Addendum
Discharge plan discussed with GI. Patient is okay to discharge after paracentesis
Patient was given albumin infusion after paracentesis. He did well and hemodynamic stable postinfusion.
Patient wanted to keep his appointment with his pain doctor.
Discharge plan was discussed with patient case coordinator
Total discharge time spent to see the patient, examine the patient, review data and lab results, discuss discharge plan with patient and nursing staff around 65 minutes
Original Note:
Today's Communication/Plan
-
Reached out to IR, plan for paracentesis today
Assessment / Plan
Assessment / Plan
Physical Exam
General: No Apparent Distress
HEENT: Normocephalic and Atraumatic
Respiratory: Negative Wheezes
Cardiac: Regular Rhythm and S1/S2
GI: Soft. Nontender. Distended. Positive bowel sounds.
Neuro: AAO x 3
Psych: Calm
Assessment/Plan
Acute on chronic abdominal pain
Acute on chronic anemia with melena
-Although BUN was elevated patient does not have any overt GI bleeding, and per GI this is less likely to be variceal bleeding; patient had acute on chronic anemia on multiple
occasions in the past requiring multiple transfusions.
-Received 3 units PRBC. Hgb this a.m. 7.5.
- Dr. Dillard communicated with on-call silk top hat body maker Dr. Jennifer Weaver and he recommended to monitor his hemoglobin, and if hemoglobin is stable going into 3/3 , then can discharge patient.
-Continue PPI: switched PPI drip to BID
-Advance diet to solid food as per GI
-GI to consider EGD depending on whether patient has overt gastrointestinal bleeding
Recent Recurrent SBP Secondary to ESBL E. coli.
Recent Bacteremia with ESBL E. coli.
Recent Sepsis due to recurrent SBP -sepsis improving.
-He gets paracentesis twice a week, will order paracentesis before this
-Currently on Ertapenem outpatient (and continued inpatient) given recurrent history of SBP due to ESBL E. coli (last body fluid culture positive on 12/14/2024); follow-up with ID arranged for 01/16/2025 -- see Infectious Disease progress note from
12/22/24
-Repeat abdominal ultrasound , abdomen is distended and patient is uncomfortable asking for paracentesis, will reach out to IR
Decompensated cirrhosis
-presentation with recurrent ascites and SBP on recent admission.
-Continue lactulose and rifaximin
-Follow up with GI as an outpatient, and also with [facility] with Dr. Dan as he is trying to obtain a liver transplant
ESLD
Hyponatremia
-monitor BMP. Continue 40 ounces PO daily fluid restriction.
Pancytopenia
-WBC count currently normal, platelet count 54,000. Etiology of pancytopenia due to ESLD.
History of GI bleed
COPD without exacerbation
-Patient takes Breztri as an outpatient --> continue symbicort + Spiriva while inpatient, with PRN albuterol
-Start nicotine patch
-Outpatient follow-up with [facility] pulmonary office � last saw MARCIA Ortiz on 03/30/2024
Gastric varices
Portal hypertensive gastropathy
Full code
DVT PPx: SCDs. No chemical DVT prophylaxis given concern for GI bleed and anemia.
Total time spent to see the patient, examine the patient, review data and lab results, discuss treatment plan with patient and nursing staff around 55 minutes
Anticipated Discharge: Within 24 hours
Subjective/Interval History
-
Date of Service: January 07, 2025
No chest pain
No sob
Complains of abd discomfort
Objective Data
-
Labs:
Laboratory Results
01/07/25
04:24
WBC 5.6
Hgb 7.5 L
Hct 21.7 L
Plt Count 83 L
Sodium 126 L
Potassium 4.2
Chloride 96 L
Carbon Dioxide 23
BUN 44 H
Creatinine 1.1
Glucose 105 H
Calcium 8.0 L
Total Bilirubin 2.8 H
AST 36
ALT 15
Alkaline Phosphatase 108
Vital Signs:
Vital Signs
Temp Pulse Resp BP Pulse Ox
98.5 F 97 16 112/58 99
01/07/25 04:57 01/07/25 05:55 01/07/25 05:55 01/07/25 05:55 01/06/25 19:57
I&O
01/06/25 01/07/25 01/08/25
06:59 06:59 06:59
Intake Total 1710 / 1720 935 / 935
Output Total 1750 / 1750 1275 / 1275
Balance -40 / -30 -340 / -340
--- NOTE | 2025-01-07 08:39 | VNURNOTE ---
Chart reviewed. Patient is current with [facility] nursing. Will continue to follow hospital course and DC plans.
[2025-01-07] MEDS: DUPHALAC/CHRONULAC 20 GRAMS PO ×2 (09:10→15:51)
[2025-01-07] MEDS: ProAmatine 2.5 MG PO ×3 (09:11→17:38)
[2025-01-07] MEDS: ALDACTONE 12.5 MG PO (09:11)
[2025-01-07] MEDS: XIFAXAN 550 MG PO (09:11)
[2025-01-07] MEDS: FOLVITE 0.4 MG PO (09:12)
[2025-01-07] MEDS: VITAMIN B1 100 MG PO (09:12)
[2025-01-07] MEDS: PROTONIX IV 40 MG IV (09:13)
[2025-01-07] MEDS: NSS (PRESERVATIVE FREE) 10 ML IV (09:13)
[2025-01-07] MEDS: ROXICODONE 5 MG PO (09:25)
--- NOTE | 2025-01-07 10:57 | W.PN.GI.CBS2 ---
Addendum entered and electronically signed by Jennifer Weaver MD 01/07/25 17:21:
I saw and examined the patient.
The MICROPHONE BOOM OPERATOR's note was reviewed and I agree with the note.
No further bleeding. Tolerating diet
plan
Okay to discharge patient today after paracentesis from GI standpoint
Continue current care
Patient has an appointment with ID/neurology at [facility] tomorrow. Advised to keep up with appointment
Continue follow-up with Sy
Plan discussed with medical team
Will sign off. Please call us back if any questions
Original Note:
Today's Communication / Plan
-
As per plan
Assessment / Plan
-
59 y.o male well-known to GI group with past medical history significant for decompensated cirrhosis (HCV vs EtOH) with intractable ascites with weekly para, HE, GI bleeding by recurrent hospitalizations with HE secondary to acute on chronic GI
bleeding 2/2 PHG gastric varix, hx of prior post-polypectomy bleed, prior transfer to [place] for Ultrasound guided gastric artery coiling procedure (09/2024), chronic HCV (s/p treatment with Epclusa s/p SVR), CVA, HTN, COPD, and chronic
thrombocytopenia. Last EGD 11/16/2024 with oozing portal hypertensive gastropathy treated with APC. Hx of recurrent SBP, ecoli ESBL blood/peritoneal fluid, intermediate to doxycycline and required IV ertapenem who was discharged from the hospital
12/22/2024 admitted with severe abdominal pain and dark stools. Patient reports abdominal pain after eating [place] food. Denies any nausea or vomiting. Currently abdominal pain feeling better. No dark stools for the last 2 days. Last
paracentesis 01/03/2025 - no SBP.
-- Acute on chronic abdominal pain, stable. To have paracentesis today
--Acute on chronic anemia. Brown stool. Hemoglobin 7.5
-- Decompensated liver cirrhosis with multiple hospital admissions-[facility]ELD - Na 01/05/2025- [address] up with Dr. Dan at [place]. Patient missed follow-up appointment secondary to admission. Has follow-up planned for March
-- Recurrent SBP secondary to ESBL E. coli. On ertapenem
plan
Received 3 units PRBC. Hb this a.m. 7. 5 this a.m. Tolerating solid diet
2 g sodium diet
Patient for paracentesis this a.m., for comfort. With albumin per protocol.
continue PPI twice daily
continue ertapenem (last ID note 12/22 suggest 4 to 6 weeks of ertapenem as outpatient)
Aldactone restarted 2.5 mg daily
Midodrine 3 times daily
Although BUN was elevated patient does not have any overt GI bleeding. Less likely variceal bleeding. patient had acute on chronic anemia on multiple occasions in the past requiring multiple transfusions.
Overall poor prognosis. Hospice has been discussed in the past.
Patient has ID and neurology appointment at [facility] tomorrow per his
Follow-up with Dr. Dan, appointment in March
Okay per GI for discharge after paracentesis today
Subjective
Subjective
Date of Service: January 07, 2025
Patient states he feels much improved today. No further abdominal pain. Had full breakfast including oatmeal and fruit. Had a bowel movement which was brown. Hemoglobin currently 7.5 today which is stable. He is awake alert and oriented no
apparent distress. No asterixis. Able to give me date, location and new exactly who I was. I discussed with his and at this morning and patient has infectious disease consultation as well as neurology appointment tomorrow at [place] [facility]
[place]. He did miss his appointment with Dr. Dan last week secondary to admission. Follow-up appointment was made for March.
Objective
Data Reviewed
Laboratory Data:
Laboratory Results
01/07/25 04:24
01/07/25 04:24
Laboratory Results
PT 20.3 Sec (11.4-14.6) H 01/05/25 02:14
INR 1.72 01/05/25 02:14
APTT 35.9 Sec (23.4-35.0) H 01/04/25 15:29
Phosphorus 3.5 mg/dl (2.5-4.5) 01/07/25 04:24
Magnesium 2.5 mg/dl (1.6-2.3) H 01/07/25 04:24
Total Bilirubin 2.8 mg/dl (0.2-1.3) H 01/07/25 04:24
AST 36 U/L (17-59) 01/07/25 04:24
ALT 15 U/L (0-50) 01/07/25 04:24
Alkaline Phosphatase 108 U/L (38-126) 01/07/25 04:24
Lipase 285 U/L (23-300) 01/04/25 15:29
Vital Signs and I&O:
Vital Signs
Temp Pulse Resp BP Pulse Ox
98.4 F 94 14 101/60 99
01/07/25 07:00 01/07/25 08:00 01/07/25 08:00 01/07/25 07:05 01/06/25 19:57
I&O
01/06/25 01/07/25 01/08/25
06:59 06:59 06:59
Intake Total 1710 / 1720 935 / 935 480 / 480
Output Total 1750 / 1750 1275 / 1275
Balance -40 / -30 -340 / -340 480 / 480
Physical Exam
Physical Exam
HEENT: Anicteric
Cardiology: Normal Sinus Rhythm
Pulmonary: Clear
GI: Soft, Distended (Softly distended, ascites), Non Tender and Normal Bowel Sounds
Extremities: No Edema
Neuro: Non Focal and Other (Awake alert and oriented, no asterixis)
--- NOTE | 2025-01-07 14:09 | PTCARENOTE ---
Patient took off telemetry leads to ambulate halls this AM reporting he was looking for a vending machine, informed pt that he cannot leave unit. Continues to ask for more fluids/ice despite reinforcing importance of fluid restriction. Very eager
for paracentesis and for discharge. Currently off unit in IR.
--- NOTE | 2025-01-07 14:33 | W.DCSUMMARY ---
Discharge Summary
Discharge Data
Date of Admission: 01/04/25
Date of Discharge: 01/07/25
-
Pending Results: No
Hospital Course
59 years old male with past medical history significant for decompensated cirrhosis (HCV vs EtOH) with intractable ascites requiring regular paracentesis with recurrent hospitalizations secondary to acute on chronic GI bleeding presented with
abdominal pain and dark stools. No nausea or vomiting. patient was evaluated by gastroenterology doctor. GI doctor recommended close monitoring, no need for intervention. Protonix 5 cm drip was changed to oral treatment. Last paracentesis
01/03/2025 - no active infection. Patient received total of 3 units PRBC. Hemoglobin stabilized at 7.5 Tolerating solid diet. Patient was maintained on intravenous Ertapenem (last ID note 12/22 suggest 4 to 6 weeks of ertapenem as outpatient).
He was also maintained on Aldactone restarted 2.5 mg daily and Midodrine 3 times daily. Patient remained hemodynamically stable. He underwent another paracentesis on 01/07/25 without complications. He was given albumin dose. Patient was discharged
home to follow-up with his doctors at [place] in a stable condition.
Discharge Plan
-
Patient Disposition: Home with Home Care
Discharge Diagnosis/Procedures: GI bleeding
Youw ere seen by GI doctor. You had blood transfusion. You had paracentesis.
Follow with your doctors as planned
Diet: 2 Gram Sodium
Referrals:
Drake Goss DO [Family Provider] -
Prescriptions:
Continued
thiamine HCl (vitamin B1) 100 mg tablet
100 mg PO DAILY
Breztri Aerosphere 160-9-4.8 mcg/actuation Hfa Aerosol Inhaler
2 inh INHALATION R BID
Xifaxan 550 mg Tablet
550 mg PO BID
magnesium oxide 400 mg magnesium Tablet
400 mg PO BID
pantoprazole [Protonix] 40 mg tablet,delayed release (DR/EC)
40 mg PO BID
ondansetron HCl 4 mg Tablet
4 mg PO DAILYPRN PRN (Reason: nasuea)
lidocaine 4 % adhesive patch,medicated
1 patch topical DAILYPRN PRN (Reason: right knee and right shoulder)
miconazole nitrate [Miconazorb AF] 2 % powder
1 applic topical BID
tramadol 50 mg tablet
50 mg PO BIDPRN PRN (Reason: moderate-severe pain)
spironolactone 25 mg Tablet
12.5 mg PO DAILY Qty: 30 0RF
zinc sulfate 50 mg zinc (220 mg) Tablet
50 mg PO DAILY
lactulose 10 gram/15 mL Solution
20 g PO TID
midodrine 2.5 mg Tablet
2.5 mg PO TID@0800,1300,1800 Qty: 90 0RF
folic acid 400 mcg Tablet
0.4 mg PO DAILY
oxycodone 5 mg tablet
5 mg PO Q6HPRN PRN (Reason: severe pain)
ertapenem 1 gram recon soln
1 g IV Q24H
Changed
Hemorrhoidal(PE-min oil-darling) 0.25-14-74.9 % ointment
1 applic ND BIDPRN PRN (Reason: hemorrhoids) Qty: 0 0RF
Discharge Orders:
Discharge Patient (As Directed); Ordered 01/07/25
Ordered By: Clementina Hernandez
Discharge Date and Time
Discharge Date/Time: 01/07/25 18:33
Print Language: KENYAN
[2025-01-07] MEDS: FLEXBUMIN 50 IV (15:51)
--- NOTE | 2025-01-07 16:02 | CM ---
CM following re: discharge planning.
Reviewed pt's chart, met with pt and pt's sister at bedside.
Discharge order noted. Both pt, his sister and pt's spouse are aware. pt's spouse stated that pt has 4 bolus of IV antibiotics left and she will administered IV medications.
CM spoke to [facility] liaison and she is requested a script from MD for resumptions of IV antibiotics. MD and RN are aware.
Pt referred to [facility] for resumptions of care.
Please fax pt's clinical with discharge instructions and a script for resumptions of IV antibiotics to [facility] at [phone]
Please fax discharge instruction to [facility] at [phone]
D/C plan: home with resumptions of IV antibiotics with [facility] and [facility]ptions of [facility]. Spouse to transport.
[2025-01-07] MEDS: FLEXBUMIN 100 IV (16:43)
[2025-01-07 17:28] LABS: Body Fluid Polymorphonuclear 7.8 %; Body Fluid WBC 64 /CUMM
[2025-01-07 17:29] LABS: Body Fluid Mononuclear 92.2 %
[2025-01-07 17:34] LABS: Body Fluid Second Tech EYM
== END 2025-01-07 18:33 | disposition home health service (06) | DRG 812 ==
LOC: ICU 19:26
PROVIDERS: Hospitalist; Radiology Vascular & Interventional Radiology; ADMITTING PHYSICIAN Internal Medicine; ATTENDING PHYSICIAN Internal Medicine; CONSULT PHYSICIAN Internal Medicine Critical Care Medicine; CONSULT PHYSICIAN Internal Medicine Gastroenterology; EMERGENCY PHYSICIAN Emergency Medicine; FAMILY PHYSICIAN Internal Medicine
PROC: 30233N1 Transfusion of Nonautologous Red Blood Cells into Peripheral Vein, Percutaneous Approach (ICD-10-PCS; 2025-01-04)
PROC: 0W9G3ZZ Drainage of Peritoneal Cavity, Percutaneous Approach (ICD-10-PCS; 2025-01-07)
DX: D62 Acute posthemorrhagic anemia (principal); K76.6 Portal hypertension; E87.1 Hypo-osmolality and hyponatremia; D68.9 Coagulation defect, unspecified; K92.1 Melena; K70.31 Alcoholic cirrhosis of liver with ascites; D61.818 Other pancytopenia; K72.10 Chronic hepatic failure without coma; K31.89 Other diseases of stomach and duodenum; F17.210 Nicotine dependence, cigarettes, uncomplicated; J44.9 Chronic obstructive pulmonary disease, unspecified; I86.4 Gastric varices; I10 Essential (primary) hypertension; B18.2 Chronic viral hepatitis C; F10.11 Alcohol abuse, in remission; Z88.1 Allergy status to other antibiotic agents; Z79.899 Other long term (current) drug therapy; Z86.73 Personal history of transient ischemic attack (TIA), and cerebral infarction without residual deficits; Z86.61 Personal history of infections of the central nervous system
CPT/HCPCS: 36430; 49083; 71045; 80053; 82248; 83690; 83735; 84100; 85014; 85018; 85025; 85027; 85610; 85730; 86850; 86900; 86901; 86920; 86922; 89051; 93005; 96365; 96366; 96375; 97162; 97166; 97530; 99291; J1335; P9016; P9047

== ENCOUNTER → 2025-01-11 07:28 | Outpatient (REF) | payer BC, SELFPAY ==
[2025-01-11 08:14] VITALS: BP 104/59; BP_SYST 97
[2025-01-11 09:00] VITALS: BP 103/53
[2025-01-11 10:12] LABS: Body Fluid Mononuclear 86.8 %; Body Fluid Polymorphonuclear 13.2 %; Body Fluid WBC 61 /CUMM
[2025-01-11 10:58] LABS: Body Fluid Second Tech AMA
== END ==
LOC: RADI 07:28
PROVIDERS: ATTENDING PHYSICIAN Nurse Practitioner Adult Health
DX: R18.8 Other ascites (principal)
CPT/HCPCS: 49083; 87015; 87070; 87205; 89051

== ENCOUNTER 2025-01-16 15:48 | Inpatient (IN) | payer BC, SELFPAY ==
[2025-01-16] VITALS (16 sets, daily range): BP systolic 85–127; BP diastolic 32–83; BMI 24.4
--- NOTE | 2025-01-16 13:11 | ED.GENMED ---
History of Present Illness
<Rene Mooney PA-C - Last Filed: 01/16/25 15:00>
General
Chief Complaint: Abdominal Pain
Source: patient, records and spouse
Time Seen by Provider: 01/16/25 12:49
History of Present Illness
History of Present Illness:
59-year-old male, chronically ill and well-known to this emergency department with a past medical history of alcoholic cirrhosis, hep C virus, COPD, previous stroke, cleared previous chronic alcohol abuse but sober for well over 1 year presenting
back to the [facility] for evaluation of generalized abdominal pain, nausea, 1 episode of hematemesis last night, bright red blood per rectum with darker stools, increased swelling to the abdomen and right testicle. Patient notes that all of the
symptoms are chronic for him but acutely worse today. Patient without any reported fevers. He has a PICC line to the right upper extremity which was exchanged yesterday, continues to receive ertapenem for SBP secondary to E. coli. Last week he
did see neurology and infectious disease at the [facility] and is scheduled to see Dr. Muse today at 1 PM however due to feeling unwell asked to bring him to the emergency department.
Past History
<Rene Mooney PA-C - Last Filed: 01/16/25 15:00>
Past History
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 GI bleed, portal gastropathy, hemorrhoids, umbilical hernia, CVA, SBP, E. coli bacteremia, ESBL)
ED Past Surgical History: Other
Social History
Tobacco: Smoker
Alcohol: Former
Drug: None
Personal:
Living: with family
Employment: Employed
Family History
Family History: Diabetes and Other
Review of Systems
<Rnee Mooney PA-C - Last Filed: 01/16/25 15:00>
Review of Systems
All Other Systems: ROS reviewed and negative except as documented in HPI and ROS
Phy Exam
<Rene Mooney PA-C - Last Filed: 01/16/25 15:00>
Physical Exam
Physical Exam:
GENERAL: Alert , chronically ill-appearing, nontoxic, pale
EYE: clear conjunctiva b/l
HEAD: NCAT
ENT: o/p clr, mmm.
CARDIAC: Regular rate and rhythm .
LUNGS: Clear breath sounds bilaterally, no acute respiratory distress, no wheezes/rales/rhonchi
ABDOMEN: Firm, generally tender, ascites noted, protruding umbilical hernia is reducible but spontaneously returns, no rebound or guarding
GENITOURINARY: Uncircumcised, edema to the right testicle with inguinal hernia noted however no discrete tenderness to the testicle
RECTAL: Dark stool, heme pos
NEUROLOGICAL: Alert and oriented
SKIN: Warm and dry, skin intact.
MUSCULOSKELETAL: Mild nonpitting bilateral lower extremity edema, well perfused.
PSYCH: Normal and appropriate interaction.
Scores
<Rene Mooney PA-C - Last Filed: 01/16/25 15:00>
Heart Failure Risk
Heart Failure Risk Score: Not Applicable
Heart Score for Chest Pain Patients
STEMI patient?: Not applicable
Withdrawal Assessment of Alcohol
Withdrawal Assessment Completed?: Not applicable
Course
<Rene Mooney PA-C - Last Filed: 01/16/25 15:00>
Orders/Labs/Results
Orders:
Orders
01/16/25 13:00
IV Insert/Care/Rem.- Treatment PRN
HYDROmorphone [Dilaudid] 0.5 mg IV NOW STA
Pantoprazole [Protonix IV] 80 mg IV NOW STA
CR Chest Portable - 1 View Urgent
Comment:
Reason For Exam: PICC line
Reason Study Needs to be Portable: Patient Unstable
01/16/25 13:18
Ondansetron Injectable [Zofran] 4 mg IV NOW STA
01/16/25 13:19
Type+Screen Urgent
01/16/25 13:20
Complete Blood Count/With Diff Urgent
Comprehensive Metabolic Panel Urgent
Lipase Urgent
PTT Urgent
Prothrombin Time Urgent
01/16/25 13:44
Octreotide [Sandostatin] 50 mcg IV NOW STA
01/16/25 13:45
Blood Bank Products [* Blood Bank Products] Urgent
Blood Bank Products: *Packed RBC Leuko(PRBC's)
Quantity: 2
Transfuse Today: Yes
Reason: Bleeding
Abnormal Lab Results
01/16/25 01/16/25
13:19 13:20
WBC 11.3 H 10^3/uL
(4.8-10.8)
RBC 1.90 L 10^6/uL
(4.70-6.10)
Hgb 6.1 L* g/dL
(13.0-18.0)
Hct 18.0 L* %
(39.0-52.0)
MCV 95.3 H fL
(80.0-94.0)
MCH 32.1 H pg
(27.0-31.0)
RDW 17.1 H %
(11.5-14.5)
Plt Count 102 L 10^3/uL
(130-400)
Abs Immat Gran (auto) 0.1 H 10^3/uL
(0-0.05)
Absolute Neuts (auto) 9.3 H 10^3/uL
(1.4-6.5)
Absolute Lymphs (auto) 0.9 L 10^3/uL
(1.2-3.4)
Absolute Monos (auto) 0.7 H 10^3/uL
(0.1-0.6)
Immature Gran % 1.1 H %
(0-0.5)
Neutrophils % 82.1 H %
(42.2-75.2)
Lymphocytes % 8.2 L %
(20.5-51.1)
PT 20.3 H Sec
(11.4-14.6)
APTT 37.8 H Sec
(23.4-35.0)
Sodium 124 L mmol/L
(135-145)
Carbon Dioxide 19 L mmol/L
(22-30)
BUN 72 H mg/dl
(9-20)
Creatinine 1.9 H mg/dL
(0.7-1.3)
Glucose 163 H mg/dl
(70-99)
Calcium 7.4 L mg/dl
(8.4-10.2)
Total Bilirubin 2.7 H mg/dl
(0.2-1.3)
Alkaline Phosphatase 153 H U/L
(38-126)
Total Protein 4.2 L g/dl
(6.3-8.2)
Albumin 2.5 L g/dl
(3.5-5.0)
Lipase 329 H U/L
(23-300)
Crossmatch IS Only See Detail
MTS Gel Crossmatch See Detail
01/16/25 13:20
01/16/25 13:20
Vital Signs
Initial and Last Documented VS:
Initial Vital Signs
Temp Pulse Resp BP Pulse Ox
97.5 F 76 18 107/40 99
01/16/25 12:37 01/16/25 12:37 01/16/25 12:37 01/16/25 12:37 01/16/25 12:37
Last Documented Vital Signs
Temp Pulse Resp BP Pulse Ox
97.5 F 74 26 90/32 99
01/16/25 12:37 01/16/25 14:00 01/16/25 13:30 01/16/25 13:03 01/16/25 13:36
<Lior Woods MD - Last Filed: 01/16/25 13:59>
Orders/Labs/Results
Orders:
Orders
01/16/25 13:00
IV Insert/Care/Rem.- Treatment PRN
HYDROmorphone [Dilaudid] 0.5 mg IV NOW STA
Pantoprazole [Protonix IV] 80 mg IV NOW STA
CR Chest Portable - 1 View Urgent
Comment:
Reason For Exam: PICC line
Reason Study Needs to be Portable: Patient Unstable
01/16/25 13:18
Ondansetron Injectable [Zofran] 4 mg IV NOW STA
01/16/25 13:19
Type+Screen Urgent
01/16/25 13:20
Complete Blood Count/With Diff Urgent
Comprehensive Metabolic Panel Urgent
Lipase Urgent
PTT Urgent
Prothrombin Time Urgent
01/16/25 13:44
Octreotide [Sandostatin] 50 mcg IV NOW STA
01/16/25 13:45
Blood Bank Products [* Blood Bank Products] Urgent
Blood Bank Products: *Packed RBC Leuko(PRBC's)
Quantity: 2
Transfuse Today: Yes
Reason: Bleeding
Abnormal Lab Results
01/16/25 01/16/25
13:19 13:20
WBC 11.3 H 10^3/uL
(4.8-10.8)
RBC 1.90 L 10^6/uL
(4.70-6.10)
Hgb 6.1 L* g/dL
(13.0-18.0)
Hct 18.0 L* %
(39.0-52.0)
MCV 95.3 H fL
(80.0-94.0)
MCH 32.1 H pg
(27.0-31.0)
RDW 17.1 H %
(11.5-14.5)
Plt Count 102 L 10^3/uL
(130-400)
Abs Immat Gran (auto) 0.1 H 10^3/uL
(0-0.05)
Absolute Neuts (auto) 9.3 H 10^3/uL
(1.4-6.5)
Absolute Lymphs (auto) 0.9 L 10^3/uL
(1.2-3.4)
Absolute Monos (auto) 0.7 H 10^3/uL
(0.1-0.6)
Immature Gran % 1.1 H %
(0-0.5)
Neutrophils % 82.1 H %
(42.2-75.2)
Lymphocytes % 8.2 L %
(20.5-51.1)
PT 20.3 H Sec
(11.4-14.6)
APTT 37.8 H Sec
(23.4-35.0)
Sodium 124 L mmol/L
(135-145)
Carbon Dioxide 19 L mmol/L
(22-30)
BUN 72 H mg/dl
(9-20)
Creatinine 1.9 H mg/dL
(0.7-1.3)
Glucose 163 H mg/dl
(70-99)
Calcium 7.4 L mg/dl
(8.4-10.2)
Total Bilirubin 2.7 H mg/dl
(0.2-1.3)
Alkaline Phosphatase 153 H U/L
(38-126)
Total Protein 4.2 L g/dl
(6.3-8.2)
Albumin 2.5 L g/dl
(3.5-5.0)
Lipase 329 H U/L
(23-300)
Crossmatch IS Only See Detail
MTS Gel Crossmatch See Detail
01/16/25 13:20
01/16/25 13:20
Vital Signs
Initial and Last Documented VS:
Initial Vital Signs
Temp Pulse Resp BP Pulse Ox
97.5 F 76 18 107/40 99
01/16/25 12:37 01/16/25 12:37 01/16/25 12:37 01/16/25 12:37 01/16/25 12:37
Last Documented Vital Signs
Temp Pulse Resp BP Pulse Ox
97.5 F 74 26 90/32 99
01/16/25 12:37 01/16/25 14:00 01/16/25 13:30 01/16/25 13:03 01/16/25 13:36
<Rene Mooney PA-C - Last Filed: 01/16/25 15:00>
MDM/Problems Addressed
Differential Diagnosis Includes:
End-stage liver disease secondary to alcoholic cirrhosis versus hep C virus, upper versus lower GI bleeding, varices, GERD, gastritis/duodenitis
MDM/Problems Addressed:
59-year-old male presenting to the emergency department for evaluation of GI symptoms, concern for both upper and lower GI bleeding. Patient with extensive history of the same. Recent admission here and discharged earlier this month. Received
blood products while here. Has a chronic indwelling PICC line for SBP and is continuously on antibiotics presently. Afebrile here and hemodynamically stable. Labs ordered. Zofran for nausea. Half milligram of Dilaudid ordered for pain control.
Given chronic medical condition and presenting concerns anticipate admission
Chronic conditions affecting care: Other (End-stage liver disease/alcoholic cirrhosis)
<Rene Mooney PA-C - Last Filed: 01/16/25 15:00>
*Pulse Oximetry
Patient hypoxic: no
*Exercise Scientist Interpretation
Rate: normal
Rhythm: sinus
*Critical Care Note
Total Time (30-74mins, 75-104mins- exclusive of procedures): 30
comment:
Critical care statement: A total of 30 minutes of critical care time was provided for this patient. This includes management of unstable vital signs, evaluation of the patient at bedside, reviewing the patient's pertinent medical records, discussion
with consultants, review of old EKGs and review of pertinent medical records. This time with separate from time utilized to perform the aforementioned documented procedures
<Rene Mooney PA-C - Last Filed: 01/16/25 15:00>
Patient Management
Discussion with other providers: Hospitalist and Vba Developer
Escalation/DeEscalation of care consider admission/obs:
Patient's hemoglobin returned at 6.1. This is decreased from 7.5 when he was admitted and ultimately discharged 9 days ago. Given his history combined with physical exam findings suspect GI bleeding to be the most likely cause. Patient was
consented for 2 units of packed red blood cells. Hospitalist team notified and accepts for continued evaluation and treatment. GI team is in agreement with treatment plan thus far. They will see in consult.
ED Attending Note
<Rene Mooney PA-C - Last Filed: 01/16/25 15:00>
-
Portions of this chart may have been created with voice recognition software.� Occasional wrong word or��sound alike� substitutions may have occurred due to the inherent limitations of voice recognition software.
<Lior Woods MD - Last Filed: 01/16/25 13:59>
ED Attending Note
Patient seen and examined by attending physician: Yes
ED Attending Note:
I have seen and evaluated the patient with a [id number] encounter. I have spoken to the advance practicer provider and involved in the medical history, the physical exam, medical decision making.
Evaluation and management service: agree unless noted differently below.
Results interpretation: agree unless noted differently below.
Focused HPI: 59-year-old male with history as noted significant for end-stage liver disease, recurrent ascites, recurrent GI bleeding returns to the ER for abdominal discomfort�currently on antibiotics for SBP�also having nausea and dry heaving,
bloody stools�gross blood noted per . Multiple admissions for similar.
Physical exam: Vitals significant for soft blood pressure 90/32. Abdomen distended with fluid wave, periumbilical hernia soft and reducible. Diffuse tenderness of abdomen.
Medical Decision Makin-year-old male with end-stage liver disease and recurrent GI bleeding returns with GI bleeding; he is also having persistent abdominal pain in the setting of SBP he is currently on antibiotics. Heme positive stool here.
Labs showed acute on chronic anemia hemoglobin 6.1 today. Platelets 102. CMP shows TYSON with creatinine of 1.9 from baseline of 1.1. He is hyponatremic. Transfuse PRBCs. IV PPI, octreotide. Admit for continued monitoring and resuscitation.
Discharge Plan
Departure
Patient Disposition: Admit
Date of Disposition: 01/16/25
Time of Disposition: 13:52
Presentation/result/management discussed w/ accepting MD/DO: Hospitalist
Discharge Problem:
Acute gastrointestinal bleeding, End-stage liver disease, Anemia, CKD (chronic kidney disease), Hyponatremia
Prescriptions:
No Action
thiamine HCl (vitamin B1) 100 mg tablet
100 mg PO DAILY
Breztri Aerosphere 160-9-4.8 mcg/actuation Hfa Aerosol Inhaler
2 inh INHALATION R BID
Xifaxan 550 mg Tablet
550 mg PO BID
magnesium oxide 400 mg magnesium Tablet
400 mg PO BID
pantoprazole [Protonix] 40 mg tablet,delayed release (DR/EC)
40 mg PO BID
ondansetron HCl 4 mg Tablet
4 mg PO DAILYPRN PRN (Reason: nasuea)
lidocaine 4 % adhesive patch,medicated
1 patch topical DAILYPRN PRN (Reason: right knee and right shoulder)
miconazole nitrate [Miconazorb AF] 2 % powder
1 applic topical BID
tramadol 50 mg tablet
50 mg PO BIDPRN PRN (Reason: moderate-severe pain)
spironolactone 25 mg Tablet
12.5 mg PO DAILY Qty: 30 0RF
zinc sulfate 50 mg zinc (220 mg) Tablet
50 mg PO DAILY
lactulose 10 gram/15 mL Solution
20 g PO TID
midodrine 2.5 mg Tablet
2.5 mg PO TID@0800,1300,1800 Qty: 90 0RF
folic acid 400 mcg Tablet
0.4 mg PO DAILY
oxycodone 5 mg tablet
5 mg PO Q6HPRN PRN (Reason: severe pain)
ertapenem 1 gram recon soln
1 g IV DAILY@1600
Hemorrhoidal(PE-min oil-darling) 0.25-14-74.9 % ointment
1 applic VA BIDPRN PRN (Reason: hemorrhoids) Qty: 0 0RF
Referrals:
Drake Goss DO [Family Provider] -
Interventions
Interventions:
*Risk Screen - Suicide Last Done: 01/16/25 12:37
*General Assessment Last Done: 01/16/25 12:37
*Neglect/Abuse Screening Last Done: 01/16/25 12:52
*ED COVID-19 Vaccine History Last Done: 01/16/25 12:37
PH-Zzmzrq-Ytkrjulzzk Assessment Last Done: 01/16/25 13:36
Discharge Date and Time
Print Language: TURKMEN
[2025-01-16 13:39] LABS: ALT (SGPT) 16 U/L (0-50); AST (SGOT) 30 U/L (17-59); Albumin 2.5 g/dl (3.5-5.0); Alkaline Phosphatase 153 U/L (38-126); Blood Urea Nitrogen 72 mg/dl (9-20); Calcium 7.4 mg/dl (8.4-10.2); Carbon Dioxide 19 mmol/L (22-30); Chloride 99 mmol/L (98-107); Glucose 163 mg/dl (70-99); Lipase 329 U/L (23-300); Potassium 4.9 mmol/L (3.5-5.1); Sodium 124 mmol/L (135-145); Total Bilirubin 2.7 mg/dl (0.2-1.3); Total Protein 4.2 g/dl (6.3-8.2); eGFR 39.64
[2025-01-16 13:41] LABS: % Basophils 0.6 % (0-2); % Eosinophils 1.7 % (0-6); % Immature Granulocytes 1.1 % (0-0.5); % Lymphocytes 8.2 % (20.5-51.1); % Monocytes 6.3 % (1.7-9.3); % Neutrophils 82.1 % (42.2-75.2); Absolute Basophils 0.1 10^3/uL (0-0.2); Absolute Eosinophils 0.2 10^3/uL (0-0.7); Absolute Immature Granulocytes 0.1 10^3/uL (0-0.05); Absolute Lymphocytes 0.9 10^3/uL (1.2-3.4); Absolute Monocytes 0.7 10^3/uL (0.1-0.6); Absolute Neutrophils 9.3 10^3/uL (1.4-6.5); Hemoglobin 6.1 g/dL (13.0-18.0); Mean Corp Hgb Conc. 33.7 g/dL (33.0-37.0); Mean Corpuscular Hgb 32.1 pg (27.0-31.0); Mean Corpuscular Volume 95.3 fL (80.0-94.0); Mean Platelet Volume 9.9 fL (7.4-10.4); Nucleated Red Blood Cells % 0 % (-); Platelet Count 102 10^3/uL (130-400); Red Cell Dist. Width 17.1 % (11.5-14.5); White Blood Cell Count 11.3 10^3/uL (4.8-10.8)
[2025-01-16 13:44] LABS: APTT 37.8 Sec (23.4-35.0); INR 1.68; PT 20.3 Sec (11.4-14.6)
--- NOTE | 2025-01-16 14:10 | HPS.HSE ---
Family Physician
-
Family Physician: Drake Goss
Chief Complaint
-
abdominal pain
History of Present Illness
Patient is a 59-year-old male with past medical history significant for end-stage liver disease, alcoholic cirrhosis, chronic anemia, pancytopenia, HCV, GI bleed, essential hypertension, COPD, Hx CVA, gastric varices and portal hypertensive
gastropathy who presented to [facility] ED for evaluation of severe abdominal pain that started this morning. Patient reports bright red blood mixed with dark stools. He reports increased girth to abdomen that is distended and increased
scrotal swelling. Patient does report these as chronic issues but are significantly worse today than baseline. He denies any other symptoms. Patient with PICC to RUE for IV antibiotics at home treating SBP, following with ID outpatient at [place]
[facility]. Patient denies any fevers, chills, cough, shortness of breath, nausea, vomiting, constipation, diarrhea or urinary symptoms.
Medical History
Past Medical History
Past Medical History: Reports Other
Additional Past Medical History:
End-stage liver disease
Alcoholic cirrhosis
Chronic anemia
Pancytopenia
HCV
GI bleed
Essential hypertension
COPD
History of stroke
Gastric varices
Portal hypertensive gastropathy
Past Surgical History: Reports Other
Additional Past Surgical History:
repair of a spinal fluid leak (2001)
Teeth Extraction
Social History
Tobacco: Former Smoker (stating he smoked yesterday, requests replacement )
Alcohol: Former (stating last drink >1 year ago)
Drug: None
Personal:
Living: With Family
Employment: Disabled
Family History
Family History: Not pertinent
Allergies / Home Medications
Allergies reflects when Allergies were last updated in [employer].
Home Medications with original date entered in [employer]
Allergy/Medication List:
Allergies
Allergy/AdvReac Type Severity Reaction Status Date / Time
No Known Allergies Allergy Verified 01/16/25 12:40
Home Medications
thiamine HCl (vitamin B1) 100 mg tablet 100 mg PO DAILY Supplement 03/13/24
budesonide 160 mcg-glycopyr 9 mcg-formot 4.8 mcg/actuation HFA inhaler (Breztri Aerosphere) 2 inh inhalation R BID Lung/Breathing Issues 04/11/24
magnesium oxide 400 mg PO BID Supplement 06/28/24
rifaximin 550 mg tablet (Xifaxan) 550 mg PO BID hepatic encephalopathy 06/28/24
pantoprazole 40 mg tablet,delayed release (Protonix) 40 mg PO BID Gastrointestinal Issue 08/02/24
lidocaine 4 % topical patch 1 patch topical DAILYPRN PRN right knee and right shoulder 09/08/24
miconazole nitrate 2 % topical powder (Miconazorb AF) 1 applic topical BID groin/scrotum 09/08/24
ondansetron HCl 4 mg tablet 4 mg PO DAILYPRN PRN nasuea 09/08/24
tramadol 50 mg tablet 50 mg PO BIDPRN PRN moderate-severe pain 09/26/24
spironolactone 25 mg tablet 12.5 mg (1/2 x 25 mg) PO DAILY #30 tabs 11/01/24
zinc sulfate 50 mg zinc (220 mg) tablet 50 mg PO DAILY Supplement 11/15/24
lactulose 10 gram/15 mL oral solution 20 g PO TID Constipation 12/14/24
midodrine 2.5 mg tablet 2.5 mg PO TID@0800,1300,1800 #90 tabs 12/22/24
ertapenem 1 gram solution for injection 1 g IV DAILY@1600 Infection 01/04/25
folic acid 400 mcg tablet 0.4 mg PO DAILY Supplement 01/04/25
oxycodone 5 mg tablet 5 mg PO Q6HPRN PRN severe pain 01/04/25
phenylephrine 0.25 %-mineral oil 14 %-petrolatm 74.9 % rectal ointment (Hemorrhoidal(phenyleph-min oil-petrolat)) 1 applic RI BIDPRN PRN hemorrhoids #0 grams 01/07/25
Review of Systems
-
History Source: Patient
Constitutional: Reports Fatigue
EENT: Reports No Symptoms
Respiratory: Reports No Symptoms
Cardiac: Reports No Symptoms
Abdomen/GI: Reports Abdominal Pain, Bloody Stools and Black Stools
: Reports No Symptoms
Musculoskeletal: Reports No Symptoms
Skin: Reports No Symptoms
Neurological: Reports No Symptoms
Endocrine: Reports No Symptoms
Hematologic/Lymphatic: Reports No Symptoms
Psych: Reports No Symptoms
Physical Exam
Vital Signs
Vital Signs
Temp Pulse Resp BP Pulse Ox
97.5 F 80 26 90/32 99
01/16/25 12:37 01/16/25 13:30 01/16/25 13:30 01/16/25 13:03 01/16/25 13:36
Physical Exam
General: Well Developed, No Apparent Distress, Pain and Appears Chronically Ill
HEENT: NormoCephalic, Moist mucous membranes, Atraumatic, [address] Conjunctivae, Nose Appears Normal and Ears Appear Normal
Respiratory: Clear and Non Labored Respirations
Cardiac: S1/S2 and Regular Rhythm; No Murmur, Rub or Gallop
GI: Normal Bowel Sounds, Tender and Distended (chronic ascites )
Rectal: Hem Positive
Genito-urinary: Deferred by me
Musculoskeletal: No Clubbing, No Cyanosis and No Edema
Skin: Warm and IV/Catheter Site (RUE PICC )
Neuro: Awake, AO x 3 and Nonfocal/grossly intact
Psych: Calm
Laboratory Results
-
01/16/25 13:20
01/16/25 13:20
Laboratory Results
PT 20.3 Sec (11.4-14.6) H 01/16/25 13:20
INR 1.68 01/16/25 13:20
APTT 37.8 Sec (23.4-35.0) H 01/16/25 13:20
Total Bilirubin 2.7 mg/dl (0.2-1.3) H 01/16/25 13:20
AST 30 U/L (17-59) 01/16/25 13:20
ALT 16 U/L (0-50) 01/16/25 13:20
Alkaline Phosphatase 153 U/L (38-126) H 01/16/25 13:20
Lipase 329 U/L (23-300) H 01/16/25 13:20
Data Reviewed
-
Diagnostic Radiology: Report Reviewed by me (CXR: Right PICC line is present with its tip in good position within the SVC. Small focus of parenchymal opacity within the medial left lower lung, most likely focal atelectasis)
Lab Data: Labs Reviewed by me (Hgb 6.1, hct 18.0, Plt 102, Na 124, BUN 72, Creat 1.9, Alk Phos 153, Lipase 329)
Impression/Plan
-
IMPRESSION/PLAN:
#end-stage liver disease
#alcoholic cirrhosis
#chronic anemia
#pancytopenia
#gastric varices
#portal hypertensive gastropathy
#HCV
#GI bleed
Hgb 6.1, Hct 18.0, Plt 102, Alk Phos 153, Lipase 329
CXR: Right PICC line is present with its tip in good position within the SVC.
Small focus of parenchymal opacity within the medial left lower lung, most likely focal atelectasis
Stool heme positive
reports bright red blood mixed with dark stools
- Admit to IMU
- Consult GI
- Consult IR
- transfuse to maintain Hgb >7.0
- blood consent obtained and scanned by ED
- IV Protonix BID
- continue lactulose and Xifaxan
#spontaneous bacterial peritonitis ESBL E. Coli
pt following with ID outpatient
- continue ertapenem
#acute kidney injury
BUN 72, Creat 1.9
- monitor BMP
- consult nephrology
#hypotension
- continue midodrine
#hyponatremia
Na 124
- monitor BMP
- consult nephrology
#essential hypertension
- hold spironolactone
#COPD
- continue Breztri
#Hx CVA
Code status: full code
DVT prophylaxis: SCDs
[2025-01-16] MEDS: ZOFRAN 4 MG IV (14:24)
[2025-01-16] MEDS: PROTONIX IV 80 MG IV (14:24)
[2025-01-16] MEDS: SANDOSTATIN 50 MCG IV (14:24)
[2025-01-16] MEDS: DILAUDID 0.5 MG IV (14:24)
--- NOTE | 2025-01-16 14:52 | CON.GI ---
Addendum entered and electronically signed by Lola Tellez DO 01/16/25 17:08:
Patient seen and examined independently of the RADIOLOGICAL EQUIPMENT SPECIALIST. I agree with her note with my additions below
Cortez is a 59-year-old male with history of decompensated cirrhosis currently being worked up for transplant at [facility] secondary to hep C versus alcohol with refractory ascites on minimal diuretics with weekly paracentesis, difficult to control
recurrent SBP on persistent ertapenem, portal hypertensive gastropathy with chronic GI bleeding, prior gastric variceal bleed status post embolization in September 2024, CVA with no significant residual, hypertension, treated hep C status post SVR.
He tells me he comes to the emergency room because of worsening abdominal pain and back pain. His pain is chronic but the pain worsened this morning. He has some nausea but denies any significant vomiting. Said he dry heaved at 1 point. No
significant melena just some small amount of bright red blood with wiping and on rectal exam has dark brown. Denies any confusion. No fever. Just more weakness. Very thirsty. Has not noticed any decrease in urine output.
In the emergency room he has mild leukocytosis of 11.3, hemoglobin 6.1 and on 01/07/2025 hemoglobin 7.5, platelets 102, INR 1.68, sodium 124, BUN 72, creatinine 1.9, baseline creatinine is around 1.1, total bilirubin 2.7, ALT 16, total protein 4.2,
albumin 2.5, alkaline phosphatase 153
#abdominal pain -acute on chronic. Patient has chronic abdominal pain but this seems to be worse.
-- Sending for diagnostic paracentesis with known chronic recurrent complicated SBP on ertapenem
-- Abdominal x-ray
-- Okay for clear liquids
# Anemia -patient has chronic portal hypertensive gastropathy with mild oozing at times. I am not concerned about any significant bleeding at this time
-- I would give 1 unit of blood. Just keep him above 7
-- Okay for octreotide, but actually hold off on PPI in the setting of his refractory ascites and SBP
-- He had a small amount of blood-tinged dry heaving. No significant variceal like bleeding. Small amount of bright red blood with wiping. All these are common for him and his hemoglobin is not much different from baseline
# Worsening renal function with a MELD 3.0 30 (01/16/2025)
--- Highly concerning for hepatorenal syndrome type I
--- No systemic hypertension, check urine sodium and protein
-- Rule out infection especially in the setting of his chronic recurrent SBP with diagnostic paracentesis, no significant GI bleeding and he is already on chronic ertapenem
-- Stop all diuretics. He was only on a small dose of spironolactone as an outpatient
--- Denies significant diarrhea
--- Rule out any other infections like urinary, get chest x-ray, not on any nephrotoxic drugs
-- Patient is already on midodrine, will give IV albumin volume challenge to help eliminate prerenal TYSON. 100 g 25% albumin x 2 days
-- Patient is not on a beta-albina
--- Continue the midodrine and adding octreotide -May need to consider terlipressin; will increase the midodrine
-- If renal function worsens need renal on board
I did reach out to his transplant farm crew leader, Dr. Dan since the patient is actively being worked up for transplant and his MELD 3.0 is 30. I left a message. Pending his labs he may need transferred to [facility]
Original Note:
Consultation
-
Date/Time Consultation Requested: 01/16/251399
Date/Time Consultation Performed: 01/16/251399
Requesting Provider: ROSIE Velasquez
Performing Provider: Dr. Tellez/MARCIA Campo
Reason for Consultation: abdominal pain
Medical History
Chief Complaint / HPI
Chief Complaint: Abdominal pain, vomiting x 1
History of Present Illness:
59 y.o male well-known to GI group with past medical history significant for decompensated cirrhosis (HCV vs EtOH) with intractable ascites with weekly paracentesis, HE, GI bleeding by recurrent hospitalizations with HE secondary to acute on chronic
GI bleeding 2/2 PHG, gastric varix, hx of prior post-polypectomy bleed, prior transfer to [facility] for Ultrasound guided gastric artery coiling procedure (09/2024), chronic HCV (s/p treatment with Epclusa s/p SVR), CVA, HTN, COPD, and chronic
thrombocytopenia. He had a + tox screen for cocaine on admission in October, patient denied use. Patient had repeat outpatient PETH testing that was negative.Melena with GI bleeding status post EGD on 11/16/2024 findings of oozing portal
hypertensive gastropathy treated with APC, ileus and TYSON. Hx of recurrent SBP treated with ertapenem, ecoli ESBL blood/peritoneal fluid, intermediate to doxycycline and required IV ertapenem via midline as an outpatient until 12/06/24. Follows with
Dr. Dan (hepatology as an outpatient, next visit in March). Recurrent ESBL/Ecoli SBP restarted on Ertapenem again 12/17/24. Last paracentesis 01/11/25 with removal of 5900 ascites fluid negative for SBP. Who saw ID 'Dr. Espinoza' at [facility] last week, and
was supposed to see Dr. Moss today (both are in contact with each other) who has been having brown/dark stools for the past week with bright red blood upon wiping. States he was eating multiple candies that he should not have last evening
including black licorice, jellybeans and caramel. States that this morning he got up with a 'bellyache'. I discussed with his Cherise ([phone]) she states at 5 AM this morning he was complaining of abdominal discomfort and he vomited clear
fluid however had a 'tinge of red'. She does corroborate his story that he had some red blood this week and bowel movements. Since he was having abdominal discomfort they came to the emergency room for further evaluation. The patient has current
complaints of low back pain. Feeling weak. He is afebrile at 97.5, his blood pressure is low for him at 90/32, pulse is 74. Rectal exam performed by ER provider was very dark brown, but OB positive. Patient's hemoglobin is 6.1, his baseline is
mid 7 range. Prior hemoglobin on 01/07/2025 was 7.5.He denies any fevers, chills, dysphagia or odynophagia. He states he feels that his abdomen is distended from ascites. WBC count is 11.3.
Past Medical History
Past Medical History: Other
Past Surgical History: Other (Mohs surgery))
Social History
Tobacco: Non-Smoker
Alcohol: Former
Drug: Former User
Personal:
Family History
Family History: Other (No family history of gastrointestinal malignancy or IBD)
Allergies / Home Medications
Allergy/AdvReac Type Severity Reaction Status Date / Time
No Known Allergies Allergy Verified 01/16/25 12:40
�Medication �Instructions �Recorded
thiamine HCl (vitamin B1) 100 mg 100 mg PO DAILY Supplement 03/13/24
tablet
budesonide 160 mcg-glycopyr 9 2 inh inhalation R BID 04/11/24
mcg-formot 4.8 mcg/actuation HFA Lung/Breathing Issues
inhaler (Breztri Aerosphere)
magnesium oxide 400 mg PO BID Supplement 06/28/24
rifaximin 550 mg tablet (Xifaxan) 550 mg PO BID hepatic 06/28/24
encephalopathy
pantoprazole 40 mg tablet,delayed 40 mg PO BID Gastrointestinal Issue 08/02/24
release (Protonix)
lidocaine 4 % topical patch 1 patch topical DAILYPRN PRN right 09/08/24
knee and right shoulder
miconazole nitrate 2 % topical 1 applic topical BID groin/scrotum 09/08/24
powder (Miconazorb AF)
ondansetron HCl 4 mg tablet 4 mg PO DAILYPRN PRN nasuea 09/08/24
tramadol 50 mg tablet 50 mg PO BIDPRN PRN 09/26/24
moderate-severe pain
spironolactone 25 mg tablet 12.5 mg (1/2 x 25 mg) PO DAILY #30 11/01/24
tabs
zinc sulfate 50 mg zinc (220 mg) 50 mg PO DAILY Supplement 11/15/24
tablet
lactulose 10 gram/15 mL oral 20 g PO TID Constipation 12/14/24
solution
midodrine 2.5 mg tablet 2.5 mg PO TID@0800,1300,1800 #90 12/22/24
tabs
ertapenem 1 gram solution for 1 g IV Q24H Infection 01/04/25
injection
folic acid 400 mcg tablet 0.4 mg PO DAILY Supplement 01/04/25
oxycodone 5 mg tablet 5 mg PO Q6HPRN PRN severe pain 01/04/25
phenylephrine 0.25 %-mineral oil 1 applic [place] BIDPRN PRN hemorrhoids 01/07/25
14 %-petrolatm 74.9 % rectal #0 grams
ointment
(Hemorrhoidal(phenyleph-min
oil-petrolat))
Review of Systems
-
All other systems: A 12 pt ROS was Negative except as stated above in HPI
Vital Signs
Temp Pulse Resp BP Pulse Ox
97.5 F 74 26 90/32 99
01/16/25 12:37 01/16/25 14:00 01/16/25 13:30 01/16/25 13:03 01/16/25 13:36
Physical Exam
Exam
General: Other (Appears chronically ill, pale)
HEENT: Anicteric
Respiratory: Clear
Cardiac: Regular Rhythm
GI: Soft, Normal Bowel Sounds, Tender (Diffuse tenderness, chronic) and Distended (Ascites)
Rectal: Hem Positive (Dark brown OB positive stool per ER provider)
Musculoskeletal: No Edema
Skin: Warm and Dry
Neuro: AO x 3
Psych: Calm and Other (No asterixis)
Results
WBC 11.3 10^3/uL (4.8-10.8) H 01/16/25 13:20
Hgb 6.1 g/dL (13.0-18.0) L* 01/16/25 13:20
Hct 18.0 % (39.0-52.0) L* 01/16/25 13:20
MCV 95.3 fL (80.0-94.0) H 01/16/25 13:20
Plt Count 102 10^3/uL (130-400) L 01/16/25 13:20
Absolute Neuts (auto) 9.3 10^3/uL (1.4-6.5) H 01/16/25 13:20
PT 20.3 Sec (11.4-14.6) H 01/16/25 13:20
INR 1.68 01/16/25 13:20
APTT 37.8 Sec (23.4-35.0) H 01/16/25 13:20
Sodium 124 mmol/L (135-145) L 01/16/25 13:20
Potassium 4.9 mmol/L (3.5-5.1) 01/16/25 13:20
Chloride 99 mmol/L (98-107) 01/16/25 13:20
Carbon Dioxide 19 mmol/L (22-30) L 01/16/25 13:20
BUN 72 mg/dl (9-20) H 01/16/25 13:20
Creatinine 1.9 mg/dL (0.7-1.3) H 01/16/25 13:20
Calcium 7.4 mg/dl (8.4-10.2) L 01/16/25 13:20
Total Bilirubin 2.7 mg/dl (0.2-1.3) H 01/16/25 13:20
AST 30 U/L (17-59) 01/16/25 13:20
ALT 16 U/L (0-50) 01/16/25 13:20
Alkaline Phosphatase 153 U/L (38-126) H 01/16/25 13:20
Lipase 329 U/L (23-300) H 01/16/25 13:20
Diagnostic Image Results:
CXR 01/16/25:
IMPRESSION:
Right PICC line is present with its tip in good position within the SVC.
Small focus of parenchymal opacity within the medial left lower lung, most likely focal atelectasis.
Prior GI Procedures:
11/16/2024 EGD ([facility]) - Bleb found in the esophagus.
- Gastric varices, without bleeding.
- Bleeding Portal hypertensive gastropathy. Treated
with a monopolar probe.
- No specimens collected.
09/2024 gastric art coiling procedure at [facility] -- report pending
09/11/2024 EGD [facility] (Dr. Malcolm) : Normal esophagus. Type I isolated gastric varices (IGV 1, varices located in the fundus) without bleeding. Normal examined duodenum. No specimens collected.
09/09/24 EGD [facility] - Type 1 isolated gastric varices (IGV1, varices
located in the fundus) with a small amount of oozing
and stigmata of recent bleeding found in the gastric
fundus. This is the source of patient's presentation.
No endoscopic therapy was performed given large
isolated gastric varices as these were not contiguous
with the GE-junction
- Moderate portal hypertensive gastropathy
- Otherwise, normal stomach on direct and retroflexion
views
- Normal esophagus without any esophageal varices
- Small amount of red blood in the second portion of
the duodenum. No duodenal varices were visualized
- The examination was otherwise normal.
- No specimens collected.
colonoscopy 08/22/24 Charlotte Bunn MD Non-bleeding internal hemorrhoids were found during retroflexion. The
hemorrhoids were large.
Multiple diverticula were found in the sigmoid colon and descending
colon.
The exam was otherwise without abnormality.
Diffuse colopathy
Old ovesco clip seen in ascending colon
An 8 mm polyp was found in the sigmoid colon. The polyp was sessile.
Polypectomy was not attempted given recent GI bleeding.
repeat colon 6-12 month with fair prep and polyps removed
Small bowel enteroscopy 08/22/24 Charlotte Bunn MD
- Normal esophagus.
- Severe portal hypertensive gastropathy with active
bleeding. Treated with argon plasma coagulation (APC).
- 2 cm hiatal hernia.
- Normal examined duodenum.
- The examined portion of the jejunum was normal.
- No specimens collected.
EGD: 06/29/24 maci Gaviria MD - Normal esophagus.
- Portal hypertensive gastropathy.
- Normal examined duodenum.
- No specimens collected.
05/07/[address] Smith : - Hemorrhoids found on perianal exam.
- The examined portion of the ileum was normal.
- Foreign body (OVSCO clip) at the hepatic flexure.
- Polypoid lesion at the hepatic flexure.
- Diverticulosis in the sigmoid colon and in the
descending colon.
- Internal hemorrhoids.
- No specimens collected.
Colonoscopy 04/13/2024-[facility] - One 15 to 18 mm polyp at the hepatic flexure,
removed using lift and cut and a hot snare and removed
with a cold snare. Resected and retrieved. Injected.
Treated with hot biopsy forceps. Ligated.
- One 4 mm polyp in the descending colon, removed with
a hot snare. Resected and retrieved. Clip was placed.
- Diverticulosis in the sigmoid colon, in the
descending colon and at the splenic flexure.
bx DC -TA and HF - HP polyp
EGD 04/13/2024� [facility] - No gross lesions in the entire esophagus. No varices.
- Z-line variable, 42 cm from the incisors.
- Portal hypertensive gastropathy.
- Normal examined duodenum.
- No specimens collected.
EGD:12/27/22 [facility] - Normal esophagus.
- Portal hypertensive gastropathy.
- Normal examined duodenum.
- No specimens collected.
Assessment / Plan
-
59 y.o male well-known to GI group with past medical history significant for decompensated cirrhosis (HCV vs EtOH) with intractable ascites with weekly paracentesis, HE, GI bleeding by recurrent hospitalizations with HE secondary to acute on chronic
GI bleeding 2/2 PHG, gastric varix, hx of prior post-polypectomy bleed, prior transfer to [facility] for Ultrasound guided gastric artery coiling procedure (09/2024), chronic HCV (s/p treatment with Epclusa s/p SVR), CVA, HTN, COPD, and chronic
thrombocytopenia. He had a + tox screen for cocaine on admission in October, patient denied use. Patient had repeat outpatient PETH testing that was negative.Melena with GI bleeding status post EGD on 11/16/2024 findings of oozing portal
hypertensive gastropathy treated with APC, ileus and TYSON. Hx of recurrent SBP treated with ertapenem, ecoli ESBL blood/peritoneal fluid, intermediate to doxycycline and required IV ertapenem via midline as an outpatient until 12/06/24. Follows with
Dr. Dan (hepatology as an outpatient, next visit in March). Recurrent ESBL/Ecoli SBP restarted on Ertapenem again 12/17/24. Last paracentesis 01/11/25 with removal of 5900 ascites fluid negative for SBP. Who saw ID 'Dr. Espinoza' at [facility] last week, and
was supposed to see Dr. Moss today (both are in contact with each other) who has been having brown/dark stools for the past week with bright red blood upon wiping. Presents today for nausea and vomiting this morning that was clear with a 'blood
tinge'. Abdominal discomfort and increased abdominal distention associated with his ascites. Patient with a leukocytosis, not febrile. Continues on ertapenem for history of ESBL/E. coli SBP. Has low back pain denies dysuria. WBC 11.3,
hemoglobin 6.1, hematocrit 18.0, platelet count 102, PT 20.3, INR 1.68, sodium 124, potassium 4.9, CO2 19, BUN 72, creatinine 1.9, glucose 163, calcium 7.4, total bilirubin 2.7, AST 30, ALT 16, alk phos 153, albumin 2.5, lipase 329.
MELD 3.0= 30 --> primarily driven now increasing creatinine, decrease in sodium
previously MELD 3.0 was 24 on 01/07/25 labs
Impression:
Decompensated cirrhosis (HCV s/p Tx) with SBP with worsening MELD, now 30 increased from 24
Abdominal pain with hx of E Coli/ESBL SBP on Ertapenem
TYSON concern for Hepatorenal syndrome, already on Midodrine TID
Anemia with Hgb 6.1, baseline 7.5
N/V x 1 ('blood tinged')
Rectal bleeding, BRB on tissue past week
OB positive dark stool
Weakness
Plan:
-Check Blood culture x2, urine culture, urine Na
-Diagnostic paracentesis for now
-Albumin 100 gm IV daily x 3 days
-Patient to be transfused 2 units PRBC
-ID consultation
-Nephrology consultation
-Pantoprazole 40 mg IV BID
-Continue Xifaxan and Lactulose
-Hold spironolactone at this time
-Daily CBC, BMP, LFTs, PT/INR
-Will place call to patient Financial Operations Clerk Dr. Dan at [facility] to see if they would like him in transfer.
-Further recommendations to be forthcoming.
-
-
Thank you for consultation and allowing me to participate in the patient's care. Please call the community relations coordinator GI physician during the after hours with any questions or concerns.
--- NOTE | 2025-01-16 15:20 | W.CON.NEPH ---
Consultation
-
Date/Time Consultation Requested: 01/16/25 1515
Date/Time Consultation Performed: 01/16/25 1530
Requesting Provider: Guerita Lora
Performing Provider: Sabrina Pittman
Reason for Consultation: TYSON, hypoantremia
Medical History
-
Chief Complaint: abd pain, dark stool
History of Present Illness:
59-year-old male with past medical history significant for end-stage liver disease, alcoholic cirrhosis on lactulose, PPI, Aldactone, Xifaxan, chronic anemia, pancytopenia, HCV, GI bleed, COPD, Hx CVA, gastric varices and portal hypertensive
gastropathy who had recurrent admits q monthly for decompensated cirrhosis and on paracentesis 1-2times/weekly and was advised hospice in the past who also follows at [place] for trasnplant? presented to [facility] ED for evaluation of severe
abdominal pain that started this morning. Patient also notes bright red blood mixed with dark stools, nausea and bloody vomit per E R Notes. He also reports increased girth to abdomen that is distended and increased scrotal swelling, last
paracentesis was on 01/11 of 5.9lit . Patient does report these as chronic issues but are significantly worse today than baseline. He denies any other symptoms. Patient with PICC to RUE for IV antibiotics at home treating SBP, following with ID
outpatient at [facility]. Patient denies any fevers, chills, cough, shortness of breath, constipation, diarrhea or urinary symptoms, no fever.
In ER noted hb 6.1, cr 1.9, sodium 124 Nephrology asked to eval.
Past Medical History
End-stage liver disease
Alcoholic cirrhosis
Chronic anemia
Pancytopenia
HCV
GI bleed
Essential hypertension
COPD
History of stroke
Gastric varices
Portal hypertensive gastropathy
SBP on IV abx
Past Surgical History: Other (repair of a spinal fluid leak (2001) Teeth Extraction )
Social History
Tobacco: Smoker
Alcohol: Former (>1yr ago)
Drug: None
Personal:
Living: With Family
Family History
no ckd
Family History: Not Pertinent
Allergies / Home Medications
Allergy/AdvReac Type Severity Reaction Status Date / Time
No Known Allergies Allergy Verified 01/16/25 12:40
�Medication �Instructions �Recorded �Confirmed �Type
thiamine HCl (vitamin B1) 100 mg 100 mg PO DAILY Supplement 03/13/24 01/16/25 History
tablet
budesonide 160 mcg-glycopyr 9 2 inh inhalation R BID 04/11/24 01/16/25 History
mcg-formot 4.8 mcg/actuation HFA Lung/Breathing Issues
inhaler (Breztri Aerosphere)
magnesium oxide 400 mg PO BID Supplement 06/28/24 01/16/25 History
rifaximin 550 mg tablet (Xifaxan) 550 mg PO BID hepatic 06/28/24 01/16/25 History
encephalopathy
pantoprazole 40 mg tablet,delayed 40 mg PO BID Gastrointestinal Issue 08/02/24 01/16/25 History
release (Protonix)
lidocaine 4 % topical patch 1 patch topical DAILYPRN PRN right 09/08/24 01/16/25 History
knee and right shoulder
miconazole nitrate 2 % topical 1 applic topical BID groin/scrotum 09/08/24 01/16/25 History
powder (Miconazorb AF)
ondansetron HCl 4 mg tablet 4 mg PO DAILYPRN PRN nasuea 09/08/24 01/16/25 History
tramadol 50 mg tablet 50 mg PO BIDPRN PRN 09/26/24 01/16/25 History
moderate-severe pain
spironolactone 25 mg tablet 12.5 mg (1/2 x 25 mg) PO DAILY #30 11/01/24 01/16/25 Rx
tabs
zinc sulfate 50 mg zinc (220 mg) 50 mg PO DAILY Supplement 11/15/24 01/16/25 History
tablet
lactulose 10 gram/15 mL oral 20 g PO TID Constipation 12/14/24 01/16/25 History
solution
midodrine 2.5 mg tablet 2.5 mg PO TID@0800,1300,1800 #90 12/22/24 01/16/25 Rx
tabs
ertapenem 1 gram solution for 1 g IV DAILY@1600 Infection 01/04/25 01/16/25 History
injection
folic acid 400 mcg tablet 0.4 mg PO DAILY Supplement 01/04/25 01/16/25 History
oxycodone 5 mg tablet 5 mg PO Q6HPRN PRN severe pain 01/04/25 01/16/25 History
phenylephrine 0.25 %-mineral oil 1 applic [place] BIDPRN PRN hemorrhoids 01/07/25 01/16/25 Rx
14 %-petrolatm 74.9 % rectal #0 grams
ointment
(Hemorrhoidal(phenyleph-min
oil-petrolat))
Review of Systems
-
All ros have been inquired and found negative other than stated in HPI
All other systems: Negative unless noted
Physical Exam
Vital Signs
Vital Signs
Temp Pulse Resp BP Pulse Ox
97.7 F 79 16 107/51 98
01/16/25 15:16 01/16/25 15:16 01/16/25 15:16 01/16/25 15:16 01/16/25 15:16
Lab Results
WBC 11.3 10^3/uL (4.8-10.8) H 01/16/25 13:20
RBC 1.90 10^6/uL (4.70-6.10) L 01/16/25 13:20
Hgb 6.1 g/dL (13.0-18.0) L* 01/16/25 13:20
Hct 18.0 % (39.0-52.0) L* 01/16/25 13:20
Plt Count 102 10^3/uL (130-400) L 01/16/25 13:20
Sodium 124 mmol/L (135-145) L 01/16/25 13:20
Potassium 4.9 mmol/L (3.5-5.1) 01/16/25 13:20
Chloride 99 mmol/L (98-107) 01/16/25 13:20
Carbon Dioxide 19 mmol/L (22-30) L 01/16/25 13:20
BUN 72 mg/dl (9-20) H 01/16/25 13:20
Creatinine 1.9 mg/dL (0.7-1.3) H 01/16/25 13:20
eGFR 39.64 01/16/25 13:20
Glucose 163 mg/dl (70-99) H 01/16/25 13:20
Calcium 7.4 mg/dl (8.4-10.2) L 01/16/25 13:20
Albumin 2.5 g/dl (3.5-5.0) L 01/16/25 13:20
Physical Exam
General: Awake, Alert, Oriented, AOx3 and No Distress
HEENT: EOMI, Neck Supple and No JVD
Respiratory: Clear, Normal Excursion and Nonlabored Respirations
Cardiac: S1/S2 and Regular Rate/Rhythm
Breast: Deferred by me
Abdomen: Soft and Other (mils TTP and distended)
Musculoskeletal: No Cyanosis and No Edema
Skin: No Rash
Neuro: Nonfocal/Grossly Intact
Psych: Appropriate
Assessment/Plan
-
IMp:
TYSON
hyponatremia
end-stage liver disease
alcoholic cirrhosis
Acute on chronic anemia
pancytopenia
gastric varices with h/o GIB
mild non gap met acidosis
portal hypertensive gastropathy
HCV
spontaneous bacterial peritonitis ESBL E. Coli
hypotension
COPD
Hx CVA
Plan:
known decompensated cirrhosis with q monthly admits in last 1yr , now back with abd pain, GIB
TYSON-baseline cr variable, last one 1.1 now upto 1.9
possibly prerenal, check UA and U fena -HRS in differential too
also follow bladder scan, monitor UOP, low threshold for sher
would give alb course, hold diuretics
hyponatremia-check u osmo, maintain FR likely this is all from ESLD
poor prognostic factor
transfusion for anemia/GIB-GI consulted
BP soft, cotn midodrine
monitor met acidosis
no HD needs however should his renal function deteriorate he is not candidate for dialysis with ESLD unless he is active on transplant list -this need to be verified from GI
On reviewing records he was offered hospice in the past but he still refuses
need GOC discussion
--- NOTE | 2025-01-16 15:35 | EDRN ---
Unable to scan all barcodes on blood, this RN called blood bank and associate stated that sometimes the barcodes get messed up and to just use the pink sheet. This RN used pink sheet as directed.
--- NOTE | 2025-01-16 15:38 | W.PN.UPDATE ---
Update Note
Progress Note Update
This is an addendum to H&P written by Tonya Cadena on 01/16/2025.� Patient seen and examined independently with SCRAP DROP CRANE OPERATOR.� 59-year-old male past medical history of HCV with cirrhosis, portal gastropathy, history of gastric varices, history of post
polypectomy bleeding status post gastric artery coiling procedure in September 2024, recurrent SBP secondary to ESBL E. coli currently on ertapenem, recent bacteremia with ESBL E. coli, gets paracentesis twice a week, CVA, hypertension, COPD, chronic
thrombocytopenia, presenting with black/bloody stool, bloody vomit as per ER report.� No fevers or chills.
Patient's blood pressure 90/32.
Labs show hemoglobin 6.1 from 7.5.� Sodium of 124 from 126 previously.� TYSON with creatinine 1.9.
Patient with decompensated cirrhosis once again.� 2 units of blood transfusion.� NPO.� Protonix IV 40 twice daily.� GI consulted.
IR consulted for paracentesis.
Patient with TYSON.� Start albumin 25 g 3 times daily.� Hold spironolactone.� Give 500 cc IV fluids.� Nephrology consulted.
--- NOTE | 2025-01-16 15:40 | EDRN ---
TAR vital signs for pt are documented on pink sheet, vital signs taken out of TAR, as per advised by blood bank.
[2025-01-16 17:14] LABS: Body Fluid Mononuclear 94.4 %; Body Fluid Polymorphonuclear 5.6 %; Body Fluid WBC 36 /CUMM
[2025-01-16 17:15] LABS: Body Fluid Second Tech EYM
--- NOTE | 2025-01-16 17:30 | PTCARENOTE ---
Received patient on admission from ED accompanied by ED RN with blood infusing via gravity tubing; patient post-paracentesis in IRAD. RLQ bandaid d&i. at bedside and able to answer admission questions. POx 96-99% on RA. Await verification of
pharmacy orders.
[2025-01-16] MEDS: ULTRAM 50 MG PO (18:06)
[2025-01-16] MEDS: ProAmatine 7.5 MG PO (18:06)
[2025-01-16] MEDS: DUPHALAC/CHRONULAC PO (18:07)
[2025-01-16] MEDS: INVANZ 60 MG IV (18:22)
[2025-01-16] MEDS: SANDOSTATIN 500.6 MCG IV (18:22)
--- NOTE | 2025-01-16 18:37 | PTCARENOTE ---
Dr Tellez in to see patient; she confirmed that patient can have clear liquids. Order adjusted as NPO was still listed. Also stated that patient does not need 2nd unit PRBCs; confirmed via TT as order still listed. Dr Tellez stated she will d/c. Patient
due for midodrine, BP 122/58; ok to give per Dr Tellez. Octreotide started as ordered; administering Invanz via 2nd PICC lumen, then patient will started albumin. Patient attempted to void in urinal but was unable; bladder scan 122.
[2025-01-16] MEDS: FLEXBUMIN 100 IV ×2 (19:53→21:27)
[2025-01-16] MEDS: DUPHALAC/CHRONULAC 20 GRAMS PO (19:56)
[2025-01-16] MEDS: DESENEX/MITRAZOL/ZEASORB 1 APPLIC TOPICAL (19:56)
[2025-01-16] MEDS: NSS (PRESERVATIVE FREE) 10 ML IV (19:56)
[2025-01-16] MEDS: PROTONIX IV 40 MG IV (19:56)
[2025-01-16] MEDS: XIFAXAN 550 MG PO (20:08)
[2025-01-16] MEDS: DILAUDID 0.25 MG IV (21:26)
[2025-01-16 21:50] LABS: Hemoglobin 6.5 g/dL (13.0-18.0)
[2025-01-17] VITALS (29 sets, daily range): BP systolic 65–142; BP diastolic 47–86; PULSE 79–100; BMI 25.3
[2025-01-17] MEDS: FLEXBUMIN 100 IV ×2 (00:14→02:08)
[2025-01-17 02:19] LABS: Urine Albumin 2+ (Neg - Trace); Urine Bilirubin Negative (Negative); Urine Character Clear (Clear); Urine Color Yellow; Urine Glucose Negative (Negative); Urine Ketone Negative (Negative); Urine Leukocyte 2+ (Negative); Urine Nitrite Negative (Negative); Urine Occult Blood 1+ (Negative); Urine Urobilinogen Negative (Neg - 1+)
[2025-01-17 02:25] LABS: Osmolality Urine 357 mOsm/kg (300-900)
[2025-01-17 02:39] LABS: Urine Sodium < 5 mmol/L (30-90)
[2025-01-17] MEDS: DILAUDID 0.25 MG IV ×4 (02:54→17:57)
[2025-01-17 03:16] LABS: Urine Hyaline Cast >15 /LPF (0-2); Urine Squamous Cell >30 /LPF (Few)
[2025-01-17 03:20] LABS: Urine Bacteria Moderate (Negative); Urine White Cell 30-40 /HPF (0-5)
[2025-01-17 04:26] LABS: Blood Urea Nitrogen 84 mg/dl (9-20); Estimated Creatinine Clearance 40 ml/min; Glucose 97 mg/dl (70-99); eGFR 37.27
[2025-01-17 04:27] LABS: ALT (SGPT) 12 U/L (0-50); AST (SGOT) 29 U/L (17-59); Albumin 3.5 g/dl (3.5-5.0); Alkaline Phosphatase 84 U/L (38-126); Calcium 8.1 mg/dl (8.4-10.2); Carbon Dioxide 18 mmol/L (22-30); Chloride 98 mmol/L (98-107); Direct Bilirubin 0.4 mg/dl (0.0-0.4); Potassium 5.7 mmol/L (3.5-5.1); Sodium 126 mmol/L (135-145); Total Bilirubin 2.6 mg/dl (0.2-1.3); Total Protein 4.9 g/dl (6.3-8.2)
[2025-01-17 04:29] LABS: INR 1.84; PT 21.7 Sec (11.4-14.6)
[2025-01-17 04:52] LABS: TSH 0.94 uIU/ml (0.47-4.68)
[2025-01-17 05:12] LABS: Hematocrit 15.5 % (39.0-52.0); Hemoglobin 5.4 g/dL (13.0-18.0); Mean Corp Hgb Conc. 34.8 g/dL (33.0-37.0); Mean Corpuscular Volume 91.7 fL (80.0-94.0); Mean Platelet Volume 9.9 fL (7.4-10.4); Platelet Count 62 10^3/uL (130-400); Red Blood Cell Count 1.69 10^6/uL (4.70-6.10); Red Cell Dist. Width 16.7 % (11.5-14.5); White Blood Cell Count 6.4 10^3/uL (4.8-10.8)
[2025-01-17] MEDS: SANDOSTATIN 500.6 MCG IV ×2 (05:22→17:55)
--- NOTE | 2025-01-17 05:49 | PTCARENOTE ---
Addendum entered by Kayley Del Real RN 01/17/25 06:37:
Repeat H +H due at 1000 post blood transfusion.
Original Note:
Patient with severe testicle pain overnight. call center director provider made aware and ordered prn dilaudid. Abd xray completed at bedside. Hgb rechecked after one unit PRBCs infused by day shift and was 6.5. call center director provider made aware and ordered 1 unit
PRBC. Am hgb 5.4- no signs of bleeding and patient asymptomatic. Orthos negative. PRBCs transfusing now.
--- NOTE | 2025-01-17 08:16 | VNURNOTE ---
Chart reviewed. Patient is current with [facility] nursing. Will continue to follow hospital course and DC plans.
[2025-01-17] MEDS: DUPHALAC/CHRONULAC 20 GRAMS PO (08:51)
[2025-01-17] MEDS: XIFAXAN 550 MG PO ×2 (08:51→19:28)
[2025-01-17] MEDS: ProAmatine 7.5 MG PO ×2 (08:51→12:07)
[2025-01-17] MEDS: ZINC 50 MG PO (08:52)
[2025-01-17] MEDS: VITAMIN B1 100 MG PO (08:52)
[2025-01-17] MEDS: NSS (PRESERVATIVE FREE) 10 ML IV ×2 (08:52→19:28)
[2025-01-17] MEDS: PROTONIX IV 40 MG IV ×2 (08:52→19:28)
[2025-01-17] MEDS: FOLVITE 0.4 MG PO (08:52)
[2025-01-17] MEDS: ULTRAM 50 MG PO ×2 (08:54→19:27)
[2025-01-17] MEDS: DESENEX/MITRAZOL/ZEASORB 1 APPLIC TOPICAL ×2 (09:00→19:28)
--- NOTE | 2025-01-17 09:33 | W.PN.GI.CBS2 ---
Addendum entered and electronically signed by Lola Tellez DO 01/17/25 12:37:
Patient seen and examined independently of medical office manager. Agree with her note with my additions below
##Abdominal pain -acute on chronic.
-- Patient has chronic abdominal pain; patient is getting chronic narcotics and is currently comfortable
--Diagnostic paracentesis 01/16/2025 was negative for SBP. So far no growth on culture - PMN 5.6, WBC 36 on 01/16
-- Diagnostic paracentesis with known chronic recurrent complicated SBP on ertapenem - followed by ID here and at [place]
-- Abdominal x-ray on 01/16: ascites and embolization coils in the epigastric region
-- Increase diet to 2g sodium
# Anemia - hemodynamically stable - no significant overt bleeding - patient has chronic portal hypertensive gastropathy with chronic oozing requiring multiple transfusions throughout the year
--Prior gastric variceal bleed status post cyanoacrylate at [place] in September 2024
-- patient has chronic portal hypertensive gastropathy with mild oozing at times; no significant bleeding currently
-- Hb 5.4 today, transfuse 2 units to maintain above 7 (the 5.4 was after 1 U)
-- on octreotide (more for the HRS) hold off on PPI in the setting of his refractory ascites and SBP and highly doubt ulcer bleeding
-- No significant variceal like bleeding and no episodes of bloody vomiting today. Small amount of bright red blood with wiping- common for him due to hemorrhoids
# Worsening renal function with a MELD 3.0 30 (01/16/2025)
--Slightly worsening today
--- Highly concerning for hepatorenal syndrome type I
--Avoid diuretics however given by renal
--- No systemic hypertension, urine sodium <5 and protein 2+ on
-- No infection found on admission so for, urine and blood cultures are pending. No fever. On chronic ertapenem. No significant GI bleeding.
not on any nephrotoxic drugs, no significant diarrhea
-- CXR : Small focus of parenchymal opacity within the medial left lower lung, most likely focal atelectasis.
-- Patient is already on midodrine increased to 7.5 mg, will give IV albumin volume challenge to help eliminate prerenal TYSON. And blood
-- -May need to consider terlipressin
# Disposition -patient is not yet listed for OLT but with his meld of 30 he will be transferred to [facility] to complete evaluation in the setting of no improvement of his renal function and worsening INR
--Discussed with patient and his . Both are in agreement for transfer
-- Discussed with Dr. Jerez yesterday and Chuck Toro today - accepted
--Accepting physician, transplant hepatology Dr. Jerez
Original Note:
Today's Communication / Plan
-
Transfuse 2 units
IV albumin challenge
Continue midodrine
Assessment / Plan
-
59 y.o male well-known to GI group with past medical history significant for decompensated cirrhosis (HCV vs EtOH) with intractable ascites with weekly paracentesis, HE, GI bleeding by recurrent hospitalizations with HE secondary to acute on chronic
GI bleeding 2/2 PHG, gastric varix, hx of prior post-polypectomy bleed, prior transfer to [place] for Ultrasound guided gastric artery coiling procedure (09/2024), chronic HCV (s/p treatment with Epclusa s/p SVR), CVA, HTN, COPD, and chronic
thrombocytopenia. He had a + tox screen for cocaine on admission in October, patient denied use. Patient had repeat outpatient PETH testing that was negative.Melena with GI bleeding status post EGD on 11/16/2024 findings of oozing portal
hypertensive gastropathy treated with APC, ileus and TYSON. Hx of recurrent SBP treated with ertapenem, ecoli ESBL blood/peritoneal fluid, intermediate to doxycycline and required IV ertapenem via midline as an outpatient until 12/06/24. Follows with
Dr. Dan (hepatology as an outpatient, next visit in March). Recurrent ESBL/Ecoli SBP restarted on Ertapenem again 12/17/24. Last paracentesis 01/11/25 with removal of 5900 ascites fluid negative for SBP. Who saw ID 'Dr. Espinoza' at [facility] last week, and
was supposed to see Dr. Moss today (both are in contact with each other) who has been having brown/dark stools for the past week with bright red blood upon wiping. Presents today for nausea and vomiting this morning that was clear with a 'blood
tinge'. Abdominal discomfort and increased abdominal distention associated with his ascites. Patient with a leukocytosis, not febrile. Continues on ertapenem for history of ESBL/E. coli SBP. Has low back pain denies dysuria. WBC 11.3,
hemoglobin 6.1, hematocrit 18.0, platelet count 102, PT 20.3, INR 1.68, sodium 124, potassium 4.9, CO2 19, BUN 72, creatinine 1.9, glucose 163, calcium 7.4, total bilirubin 2.7, AST 30, ALT 16, alk phos 153, albumin 2.5, lipase 329.
previously MELD 3.0 was 24 on 01/07/25 labs.
In the emergency room he has mild leukocytosis of 11.3, hemoglobin 6.1 and on 01/07/2025 hemoglobin 7.5, platelets 102, INR 1.68, sodium 124, BUN 72, creatinine 1.9, baseline creatinine is around 1.1, total bilirubin 2.7, ALT 16, total protein 4.2,
albumin 2.5, alkaline phosphatase 153
#Abdominal pain -acute on chronic.
-- Patient has chronic abdominal pain but this seems to be worse.
-- Diagnostic paracentesis with known chronic recurrent complicated SBP on ertapenem: PMN 5.6, WBC 36 on 01/16
-- Abdominal x-ray on 01/16: ascites and embolization coils in the epigastric region
-- Continue clear liquid diet
# Anemia
-- patient has chronic portal hypertensive gastropathy with mild oozing at times; no significant bleeding currently
-- Hb 5.4 today, transfuse 2 units to maintain above 7
-- s/p octreotide yesterday, hold off on PPI in the setting of his refractory ascites and SBP
-- No significant variceal like bleeding and no episodes of bloody vomiting today. Small amount of bright red blood with wiping- common for him due to hemorrhoids
# Worsening renal function with a MELD 3.0 30 (01/16/2025)
--- Highly concerning for hepatorenal syndrome type I
--- No systemic hypertension, urine sodium <5 and protein 2+ on
-- Less likely infection (ruling out in the setting of his chronic recurrent SBP with diagnostic paracentesis): no significant GI bleeding and he is already on chronic ertapenem, not on any nephrotoxic drugs, no signficant diarrhea
-- CXR : Small focus of parenchymal opacity within the medial left lower lung, most likely focal atelectasis.
-- Patient is already on midodrine, will give IV albumin volume challenge to help eliminate prerenal TYSON. 100 g 25% albumin x 2 days
-- Continue the midodrine and s/p octreotide -May need to consider terlipressin
-- Increasing serum cr at 2 today, may need renal on board due to worsening renal condition
Subjective
Subjective
Date of Service: January 17, 2025
Patient denies any new episodes of bleeding overnight. He does admit to little blood while wiping due to his hemorrhoids.
Objective
Data Reviewed
Laboratory Data:
Laboratory Results
01/17/25 04:40
01/17/25 03:37
Laboratory Results
PT 21.7 Sec (11.4-14.6) H 01/17/25 03:37
INR 1.84 01/17/25 03:37
APTT 37.8 Sec (23.4-35.0) H 01/16/25 13:20
Total Bilirubin 2.6 mg/dl (0.2-1.3) H 01/17/25 03:37
AST 29 U/L (17-59) 01/17/25 03:37
ALT 12 U/L (0-50) 01/17/25 03:37
Alkaline Phosphatase 84 U/L (38-126) 01/17/25 03:37
Lipase 329 U/L (23-300) H 01/16/25 13:20
Vital Signs and I&O:
Vital Signs
Temp Pulse Resp BP Pulse Ox
97.9 F 92 20 109/61 96
01/17/25 08:43 01/17/25 08:43 01/17/25 08:43 01/17/25 08:51 01/17/25 05:58
I&O
01/16/25 01/17/25 01/18/25
06:59 06:59 06:59
Intake Total 740.4 / 740.4 250 / 250
Output Total 400 / 400 200 / 200
Balance 340.4 / 340.4 50 / 50
Physical Exam
Physical Exam
HEENT: Moist mucous membranes
Cardiology: Normal Sinus Rhythm, S1 and S2
Pulmonary: Clear
GI: Soft, Distended (ascites) and Tender
[2025-01-17] MEDS: NICODERM TRANSDERMAL 14 MG TRANSDERM (10:11)
--- NOTE | 2025-01-17 11:23 | W.PN.NEPH.PH ---
Today's Communication / Plan
-
see plan
Assessment/Plan
-
IMp:
TYSON
hyponatremia
end-stage liver disease
alcoholic cirrhosis
Acute on chronic anemia
pancytopenia
gastric varices with h/o GIB
mild non gap met acidosis
portal hypertensive gastropathy
HCV
spontaneous bacterial peritonitis ESBL E. Coli
hypotension
COPD
Hx CVA
Plan:
known decompensated cirrhosis with q monthly admits in last 1yr , now back with abd pain, chr GIB
TYSON-last one 1.1 now upto 1.9-->2, non oliguric
suspect he has HRS, note he has been on IV abx for SBP, U na <5, UA, ?UTI sample pending cx, check U eosinophils
follow bladder scan, monitor UOP, low threshold for sher
would cont give alb course
hyperkalemia-from GIB and TYSON
low k diet and Lokelma if possible
given he is requiring almost 3-4 units of PRBC will give lasix today
hyponatremia-improving slowly, u osmo 357, maintain FR likely this is all from ESLD
cont transfusion for anemia/GIB, on PPI and octreotide
BP soft, cotn midodrine
monitor met acidosis possibly from primary resp alkalosis from abd distension
plan paracentesis
no HD needs however should his renal function deteriorate or worsening hyperkalemia he may need it as he being worked up for transplant MELD high at 30
awaiting transfer to [place]
d/w pt and at bedside
d/w GI and nursing
-
-
Date of Service: January 17, 2025
CC / HPI / ROS
-
Chief Complaint:
TYSON
History of Present Illness:
cr p at 2, non oliguric
no fever, hb remains low 5.4, plt low 62
k high 5.7, bicarb 18, sodium up at 126
Review of Systems:
no sob or sob
but abd pain and distension
mild nausea
Labs
-
Labs:
WBC 6.4 10^3/uL (4.8-10.8) 01/17/25 04:40
RBC 1.69 10^6/uL (4.70-6.10) L 01/17/25 04:40
Hgb 5.4 g/dL (13.0-18.0) L* 01/17/25 04:40
Hct 15.5 % (39.0-52.0) L* 01/17/25 04:40
Plt Count 62 10^3/uL (130-400) L D 01/17/25 04:40
Sodium 126 mmol/L (135-145) L 01/17/25 03:37
Potassium 5.7 mmol/L (3.5-5.1) H 01/17/25 03:37
Chloride 98 mmol/L (98-107) 01/17/25 03:37
Carbon Dioxide 18 mmol/L (22-30) L 01/17/25 03:37
BUN 84 mg/dl (9-20) H 01/17/25 03:37
Creatinine 2.0 mg/dL (0.7-1.3) H 01/17/25 03:37
eGFR 37.27 01/17/25 03:37
Glucose 97 mg/dl (70-99) 01/17/25 03:37
Calcium 8.1 mg/dl (8.4-10.2) L 01/17/25 03:37
Albumin 3.5 g/dl (3.5-5.0) 01/17/25 03:37
Physical Exam
-
Vital Signs:
Vital Signs
Temp Pulse Resp BP Pulse Ox
97.9 F 85 16 114/67 99
01/17/25 09:59 01/17/25 10:00 01/17/25 10:00 01/17/25 10:00 01/17/25 10:00
Cardiovascular:: Regular rate and rhythm
Lung Excursion:: Abnormal (decreased)
Abdomen:: Distended and Tender (firm)
Extremity Edema:: None: Bilateral:
Sher Catheter: No
--- NOTE | 2025-01-17 11:59 | W.PN.HOSP.TC ---
Addendum entered and electronically signed by Carrillo Schroeder MD 01/17/25 16:54:
More than 30 minutes spent in discharge including
Final examination of the patient
Summarizing hospital stay
Instructions for continuing care to all relevant caregivers
Preparation of discharge records, prescriptions, and referral forms
Total time spent (in minutes): 45
Addendum entered and electronically signed by Carrillo Schroeder MD 01/17/25 13:03:
Discussed with gastroenterology. Patient needs transfer to higher level of care. Gastroenterology discussed with [facility] and patient was accepted by Dr. Neeraj Jerez MD (transplant vacuum form operator). Patient agreed and signed
paperwork. Forms placed on chart. Case management informed.
Original Note:
Today's Communication/Plan
-
Blood transfusion
Repeat H&H later today
Albumin
Continue with octreotide midodrine
Continue IV antibiotic
Long-term prognosis guarded
Assessment / Plan
Assessment / Plan
#Acute on chronic abdominal pain
Status post emergent diagnostic paracentesis which is negative for SBP
Pain control.
Try to avoid IV narcotics
Once blood pressure and hemoglobin stable can consider therapeutic paracentesis.
#Chronic anemia likely anemia of chronic disease
Hemoglobin was 6.1. Repeat at 5.4. Additional 22 PRBC ordered and pending
Monitor for any luminal bleeding
GI is following
No plan for endoscopy
Transfuse for hemoglobin greater than 7 as needed.
Octreotide per gastroenterology
#Decompensated liver cirrhosis with gastric varices, portal hypertensive gastropathy, recurrent ascites, thrombocytopenia
Hypertension
Continue with lactulose with a goal loose bowel movement 3-4 times a day
Continue rifaximin
Holding Aldactone
Albumin ordered and will be transfused post blood transfusion
Currently being evaluated by Dr. Dan
Cont PPI
Na-MELD score of 30.
#TYSON on CKD with concern for hepatorenal syndrome
#Mild hyperkalemia
Status post 20 mg of Lasix -should help with lowering K.
Aldactone held
Monitor creatinine closely.
Monitor urinary output
Patient creatinine of 2 compared to creatinine of 1.1 on discharge on 01/07/2025.
Rapid increasing creatinine in short period of time with concern for hepatorenal syndrome type I
may need to consider starting Levophed with continuation of octreotide with midodrine and albumin infusion
Unclear if patient will be dialysis candidate if it comes to it
Nephrology is following
#Spontaneous bacterial peritonitis with ESBL E. coli
Continue with IV ertapenem
Hyponatremia likely secondary to hypervolemia
Sodium worsening today. Lasix received earlier
COPD not in acute exacerbation
Continue with bronchodilators
History of CVA
DVT prophylaxis SCDs in the setting of thrombocytopenia and severe anemia
Full code
Long-term prognosis severely guarded
Anticipated Discharge: > 48 hours
Subjective/Interval History
-
Date of Service: January 17, 2025
States of abd distention
receiving prbc and additional 2u still pending
Objective Data
-
Labs:
Laboratory Results
01/17/25 01/17/25
03:37 04:40
WBC Cancelled 6.4
Hgb Cancelled 5.4 L*
Hct Cancelled 15.5 L*
Plt Count Cancelled 62 L D
PT 21.7 H
INR 1.84
Sodium 126 L
Potassium 5.7 H
Chloride 98
Carbon Dioxide 18 L
BUN 84 H
Creatinine 2.0 H
Glucose 97
Calcium 8.1 L
Total Bilirubin 2.6 H
AST 29
ALT 12
Alkaline Phosphatase 84
Vital Signs:
Vital Signs
Temp Pulse Resp BP Pulse Ox
98.0 F 85 16 114/67 99
01/17/25 11:34 01/17/25 10:00 01/17/25 10:00 01/17/25 10:00 01/17/25 10:00
I&O
01/16/25 01/17/25 01/18/25
06:59 06:59 06:59
Intake Total 740.4 / 740.4 1250 / 1250
Output Total 400 / 400 400 / 400
Balance 340.4 / 340.4 850 / 850
[2025-01-17] MEDS: LASIX 20 MG IV (12:06)
[2025-01-17] MEDS: LOKELMA 10 GRAM PO (12:06)
--- NOTE | 2025-01-17 14:42 | CM ---
Patient with Dx Acute on chronic abdominal pain s/p emergent diagnostic paracentesis, anemia s/p transfusions, Decompensated liver cirrhosis, TYSON on CKD, Spontaneous bacterial peritonitis. Receiving IV Albumin, IV Abx, Lactulose, midodrine,
Octreotide gtt. Plan transfer to [facility].
Met with patient who resides with his spouse in [facility] w/ 1st floor set up.
The patient described himself as independent in ADLs and ambulation, recently using his RW or SPC.
DME - RW, SPC, shower chair.
[facility].
Prior SNF [facility]
PCP - Drake Goss
Pharmacy - [facility]
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
Notified by Dr Schroeder that plan per GI is for urgent transfer to [facility] by ALS ambulance for higher level of care, accepting MD Neeraj Jerez MD (transplant radiation therapy technician).
Plan transfer [facility] when bed available.
--- NOTE | 2025-01-17 15:18 | PTCARENOTE ---
Receiving 2/2 units for this shift. Orthostatic VS completed at noon negative. OOB in recliner chair. Stat Lokelma/ IV Lasix received. Had mod amt melena gelantinous w/ some brb mixed in- Dr. Tellez and Dr. Schroeder notified. Will need to notify
[place] transfer if becomes unstable per Dr. Tellez. AAOx3- denies s/s bleeding. LC/ RA, NSR on tele- BP now up to 135/61. Just had another mod amt black tarry stool w brb mixed. REmain asymptomatic. Blood work to be drawn after blood product
infused- Dr. Steen.
--- NOTE | 2025-01-17 16:48 | W.DCSUMMARY ---
Discharge Summary
Discharge Data
Date of Admission: 01/16/25
Date of Discharge: 01/17/25
-
Pending Results: No
Hospital Course
59-year-old male past medical history of chronic abdominal pain, anemia of chronic disease, decompensated liver cirrhosis, gastric varices, portal hypertensive gastropathy, recurrent ascites, thrombocytopenia, CKD, SBP currently on IV antibiotics,
COPD, history of CVA was presented from home and was found to have a severe anemia. Patient received total of 4 units of PRBC. Patient was evaluated by nephrology and gastroenterology. Patient was also found to have a acute renal failure on CKD.
There was concern for hepatorenal syndrome. Patient was started on octreotide, albumin and midodrine. Patient also underwent diagnostic paracentesis. Patient also with melanotic stools. Patient MELD score was elevated at 30. Patient case was
discussed with [facility] relay associate transplant and patient will be transferred to [facility] for further evaluation, management and treatment.
Received notification from microbiology lab that patient blood culture was also positive for Streptococcus. Called [facility] and inform physician taking care of Mr. Mazariegos. Discussed with patient physician Dr. Brock Mariano at
[facility].
Discharge Plan
-
Patient Disposition: Acute Care Hospital
Discharge Orders:
Discharge Patient (As Directed); Ordered 01/17/25
Ordered By: Carrillo Schroeder
Discharge Date and Time
Discharge Date/Time: 01/17/25 21:13
Print Language: TELUGU
[2025-01-17] MEDS: DUPHALAC/CHRONULAC PO (17:52)
[2025-01-17] MEDS: ProAmatine PO (17:55)
[2025-01-17] MEDS: INVANZ 60 MG IV (17:57)
--- NOTE | 2025-01-17 18:09 | PTCARENOTE ---
Had another mod tarry stool w/ brb per rectum- PRBC completed. IV Dilaudid given for abd/back pain 07/17. Sandostatin IV infusing. D/w providers- cap IV sandostatin upon transfer.
[2025-01-17 19:02] LABS: Hematocrit 22.5 % (39.0-52.0); Hemoglobin 7.8 g/dL (13.0-18.0)
--- NOTE | 2025-01-17 19:12 | W.PN.UPDATE ---
Update Note
Progress Note Update
Patient has had 3 black maroonish colored stools in the last 24 hours
This is not that uncommon for him with his chronically oozing portal hypertensive gastropathy. He did get 3 units of blood with a hemoglobin of 5.4 with response to 7.8. He continues to be hemodynamically stable and has a blood pressure of 142/70
with a heart rate of 74.
I did reiterate to the marketing editor that this patient has had 19 units of blood this year thought to be secondary to portal hypertensive gastropathy.
No nausea or vomiting. No hematemesis.
This patient has had 8 EGDs in the last 6 months always finding significant portal hypertensive gastropathy. His last one was in November 2024.
Since his hemoglobin responded and is above 7, transport has been called to set up a new time since the 8:00 pickup was canceled.
[2025-01-17 19:13] LABS: Blood Urea Nitrogen 81 mg/dl (9-20); Calcium 7.5 mg/dl (8.4-10.2); Carbon Dioxide 17 mmol/L (22-30); Chloride 100 mmol/L (98-107); Estimated Creatinine Clearance 38 ml/min; Glucose 71 mg/dl (70-99); Potassium 4.8 mmol/L (3.5-5.1); Sodium 127 mmol/L (135-145); eGFR 35.15
--- NOTE | 2025-01-17 21:10 | PTCARENOTE ---
Patient repeat hgb 6.8. [facility] notified and transport arranged. Report given to charge nurse. Patient picked up by EMS around 2044. Belongings sent with patient.
--- NOTE | 2025-01-19 15:04 | W.PN.UPDATE ---
Update Note
Progress Note Update
Received notification from microbiology lab that patient blood culture was also positive for Streptococcus. Called [facility] and inform physician taking care of Mr. Mazariegos. Discussed with patient physician Dr. Brock Mariano at
[facility].
== END 2025-01-17 21:13 | disposition short-term general hospital (02) | DRG 441 ==
LOC: IMU 15:48
PROVIDERS: Nurse Practitioner; Nurse Practitioner Family; Physician Assistant Medical; Radiology Diagnostic Radiology; ADMITTING PHYSICIAN Hospitalist; ATTENDING PHYSICIAN Hospitalist; CONSULT PHYSICIAN Internal Medicine; EMERGENCY PHYSICIAN Emergency Medicine; FAMILY PHYSICIAN Internal Medicine
PROC: 30233N1 Transfusion of Nonautologous Red Blood Cells into Peripheral Vein, Percutaneous Approach (ICD-10-PCS; 2025-01-16)
PROC: 0W9G3ZX Drainage of Peritoneal Cavity, Percutaneous Approach, Diagnostic (ICD-10-PCS; 2025-01-16)
DX: K76.6 Portal hypertension (principal); K76.7 Hepatorenal syndrome; D61.818 Other pancytopenia; E87.1 Hypo-osmolality and hyponatremia; E87.20 Acidosis, unspecified; N17.9 Acute kidney failure, unspecified; K92.0 Hematemesis; K92.1 Melena; D63.8 Anemia in other chronic diseases classified elsewhere; K70.31 Alcoholic cirrhosis of liver with ascites; K72.10 Chronic hepatic failure without coma; K31.89 Other diseases of stomach and duodenum; J44.9 Chronic obstructive pulmonary disease, unspecified; B96.20 Unspecified Escherichia coli [E. coli] as the cause of diseases classified elsewhere; I86.4 Gastric varices; N18.9 Chronic kidney disease, unspecified; I12.9 Hypertensive chronic kidney disease with stage 1 through stage 4 chronic kidney disease, or unspecified chronic kidney disease; E11.22 Type 2 diabetes mellitus with diabetic chronic kidney disease; B18.2 Chronic viral hepatitis C; F10.11 Alcohol abuse, in remission; F17.200 Nicotine dependence, unspecified, uncomplicated; Z79.899 Other long term (current) drug therapy; Z86.73 Personal history of transient ischemic attack (TIA), and cerebral infarction without residual deficits
CPT/HCPCS: 36430; 49083; 71045; 74018; 80048; 80053; 81003; 81015; 82248; 82570; 83690; 83935; 84300; 84443; 85014; 85018; 85025; 85027; 85610; 85730; 86850; 86900; 86901; 86920; 86922; 87015; 87040; 87070; 87077; 87086; 87186; 87205; 88112; 89051; 96374; 96375; 99291; J1335; P9016; P9047

== ENCOUNTER → 2025-01-25 07:43 | Outpatient (REF) | payer BC, SELFPAY ==
[2025-01-25 07:55] VITALS: BP 127/68; BP_SYST 97
[2025-01-25 08:39] VITALS: BP 117/56; BP_SYST 80
[2025-01-25 09:04] LABS: Body Fluid Mononuclear 93.3 %; Body Fluid Polymorphonuclear 6.7 %; Body Fluid WBC 45 /CUMM
[2025-01-25 09:05] LABS: Body Fluid Second Tech EM
[2025-01-25 09:06] VITALS: BP 117/56
== END ==
LOC: RADI 07:43
PROVIDERS: ATTENDING PHYSICIAN Nurse Practitioner Adult Health; FAMILY PHYSICIAN Internal Medicine
DX: R18.8 Other ascites (principal)
CPT/HCPCS: 49083; 87015; 87070; 87205; 89051

== ENCOUNTER → 2025-01-31 07:09 | Outpatient (REF) | payer BC, SELFPAY ==
[2025-01-31 07:40] VITALS: BP 136/63; BP_SYST 103
[2025-01-31 09:40] VITALS: BP 125/59
[2025-01-31 10:21] LABS: Body Fluid WBC 47 /CUMM
[2025-01-31 10:23] LABS: Body Fluid Mononuclear 95.8 %; Body Fluid Polymorphonuclear 4.2 %
[2025-01-31 10:33] LABS: Body Fluid Second Tech HB
== END ==
LOC: RADI 07:09
PROVIDERS: ATTENDING PHYSICIAN Nurse Practitioner Adult Health
DX: R18.8 Other ascites (principal)
CPT/HCPCS: 49083; 87015; 87070; 87205; 89051

== ENCOUNTER 2025-01-31 08:55 | Outpatient (RCR) | payer BC, SELFPAY ==
[2025-01-11 09:24] VITALS: BP 106/59
[2025-01-11] MEDS: FLEXBUMIN 50 IV (09:30)
[2025-01-11] MEDS: FLEXBUMIN 100 IV (10:38)
[2025-01-11 10:43] VITALS: BP 102/43
[2025-01-11 12:26] VITALS: BP 99/40
[2025-01-25 09:26] VITALS: BP 120/47
[2025-01-25] MEDS: FLEXBUMIN 100 IV (09:26)
[2025-01-25] MEDS: FLEXBUMIN 50 IV (11:32)
[2025-01-25 11:33] VITALS: BP 125/65
[2025-01-25 12:24] VITALS: BP 108/61
[2025-01-31 09:13] VITALS: BP 111/57
[2025-01-31] MEDS: FLEXBUMIN 100 IV (09:14)
[2025-01-31 09:15] VITALS: BP 111/7
[2025-01-31 10:47] VITALS: BP 113/53
[2025-01-31] MEDS: FLEXBUMIN 50 IV (10:48)
[2025-01-31 11:44] VITALS: BP 111/53
== END 2025-02-04 23:59 | disposition home or self-care (01) ==
LOC: OID 08:55
PROVIDERS: ATTENDING PHYSICIAN Nurse Practitioner Adult Health; FAMILY PHYSICIAN Internal Medicine
DX: K70.31 Alcoholic cirrhosis of liver with ascites (principal); B18.2 Chronic viral hepatitis C; D64.9 Anemia, unspecified; D69.6 Thrombocytopenia, unspecified
CPT/HCPCS: 49083; 87015; 87070; 87205; 89051; 96365; 96366; P9047

== ENCOUNTER 2025-02-07 20:40 | Inpatient (IN) | payer BC, SELFPAY ==
[2025-02-07] VITALS (12 sets, daily range): BP systolic 100–116; BP diastolic 50–76; BMI 26.2; BMI 22.9
[2025-02-07 17:40] LABS: Body Fluid Mononuclear 94.3 %; Body Fluid Polymorphonuclear 5.7 %; Body Fluid WBC 35 /CUMM
[2025-02-07 17:42] LABS: Body Fluid Second Tech FB
[2025-02-07 18:21] LABS: INR 1.53; PT 18.9 Sec (11.4-14.6)
[2025-02-07 18:22] LABS: % Basophils 0.4 % (0-2); % Eosinophils 3.2 % (0-6); % Immature Granulocytes 0.6 % (0-0.5); % Lymphocytes 9.8 % (20.5-51.1); % Monocytes 10.5 % (1.7-9.3); % Neutrophils 75.5 % (42.2-75.2); APTT 38.3 Sec (23.4-35.0); Absolute Eosinophils 0.2 10^3/uL (0-0.7); Absolute Lymphocytes 0.5 10^3/uL (1.2-3.4); Absolute Monocytes 0.5 10^3/uL (0.1-0.6); Absolute Neutrophils 3.5 10^3/uL (1.4-6.5); Hematocrit 17.2 % (39.0-52.0); Hemoglobin 5.9 g/dL (13.0-18.0); Mean Corp Hgb Conc. 34.3 g/dL (33.0-37.0); Mean Corpuscular Hgb 32.2 pg (27.0-31.0); Mean Platelet Volume 10.2 fL (7.4-10.4); Nucleated Red Blood Cells % 0 % (-); Platelet Count 73 10^3/uL (130-400); Red Blood Cell Count 1.83 10^6/uL (4.70-6.10); Red Cell Dist. Width 17.6 % (11.5-14.5); White Blood Cell Count 4.7 10^3/uL (4.8-10.8)
[2025-02-07 18:24] LABS: Ammonia 16 umol/L (9-30)
[2025-02-07 18:25] LABS: ALT (SGPT) 18 U/L (0-50); AST (SGOT) 34 U/L (17-59); Albumin 2.5 g/dl (3.5-5.0); Alkaline Phosphatase 118 U/L (38-126); Blood Urea Nitrogen 44 mg/dl (9-20); Calcium 7.7 mg/dl (8.4-10.2); Carbon Dioxide 24 mmol/L (22-30); Chloride 104 mmol/L (98-107); Estimated Creatinine Clearance 44 ml/min; Glucose 114 mg/dl (70-99); Potassium 4.5 mmol/L (3.5-5.1); Sodium 131 mmol/L (135-145); Total Bilirubin 1.9 mg/dl (0.2-1.3); Total Protein 4.1 g/dl (6.3-8.2)
--- NOTE | 2025-02-07 19:01 | HPS.HSE ---
Addendum entered and electronically signed by Alex Villegas MD 02/07/25 23:17:
I saw and examined the patient.
The BALER OPERATOR or PA's note was reviewed and I agree with the note.
Comment:
59M alcoholic cirrhosis, chronic anemia, pancytopenia, GI bleed, HTN, COPD, Hx CVA, gastric varices and portal hypertensive gastropathy, inoperable inquinal hernia, SBP currently on home infusion IV abx p/w severe abdominal pain, increased abd
distension, enlarged right testicle, and confusion. Pt symptomatically improved following paracentesis w/ IR, 7100 mL fluid drawn. Patient was recently admitted at this facility 01/16/25-01/17/25 for severe anemia requiring 4PRBC. MELD score 30,
patient was transferred to [facility] for possible benefit transplant, found to have liver mass/cancer on further evaluation. ED eval noted hgb 5.9. Patient has had multiple transfusions over the past yr secondary to chronically oozing portal
hypertensive gastropathy. Sinus tachy but BP stable afebrile. Stable respiratory status on room air.
Physical Exam
General: Appears Chronically Ill, no acute distress. Jaundice
HEENT: NormoCephalic, Moist mucous membranes, Atraumatic, [place] Conjunctivae
Respiratory: Clear
Cardiac: S1/S2 and Regular Rhythm; No Murmur
GI: Soft, Non Tender, Distended and Normal Bowel Sounds
Genito-urinary: right sided testicular swelling noted improved since paracentesis per patient
Musculoskeletal: No Clubbing, No Cyanosis and No Edema
Neuro: AOx3 conversant coherent, no asterixis noted
Psych: Calm
#Acute on Chronic anemia
#Pancytopenia r/t ESLD
#End-stage liver disease
#Ascites
#Alcoholic cirrhosis
#acute on chronic kidney injury
#hyponatremia
#spontaneous bacterial peritonitis ESBL E. Coli
#liver cancer
#Essential hypertension
#COPD
#Gastric varices
#Portal hypertensive gastropathy
IMU admit
s/p 7.1L paracentesis, albumin boluses
2PRBC transfusion, follow up post-transfusion CBC response
cont abx
GI ID Oncology eval
cont Lactulose Xifaxan
Pain control
Original Note:
Family Physician
-
Family Physician: Drake Goss
Chief Complaint
-
abdominal pain
History of Present Illness
Patient is a 59-year-old male with past medical history significant for end-stage liver disease, alcoholic cirrhosis, chronic anemia, pancytopenia, HCV, GI bleed, essential hypertension, COPD, Hx CVA, gastric varices and portal hypertensive
gastropathy who presented to [facility] ED for evaluation of severe abdominal pain, enlarged right testicle and confusion. Patient also reports increased abdominal girth, went to IR and 1 liter was drained. Patient states he was transferred to [facility] for
transplant workup and they found a liver mass and ultimately diagnosed with cancer and is following with [facility].
Medical History
Past Medical History
Past Medical History: Reports Other
Additional Past Medical History:
End-stage liver disease
Alcoholic cirrhosis
Chronic anemia
Pancytopenia
HCV
GI bleed
Essential hypertension
COPD
History of stroke
Gastric varices
Portal hypertensive gastropathy
Past Surgical History: Reports Other
Additional Past Surgical History:
repair of a spinal fluid leak (2001)
Teeth Extraction
Social History
Tobacco: Former Smoker (stating he smoked yesterday, requests replacement )
Alcohol: Former (stating last drink >1 year ago)
Drug: None
Personal:
Living: With Family
Employment: Disabled
Family History
Family History: Not pertinent
Allergies / Home Medications
Allergies reflects when Allergies were last updated in [facility].
Home Medications with original date entered in [facility]
Allergy/Medication List:
Allergies
Allergy/AdvReac Type Severity Reaction Status Date / Time
doxycycline Allergy Unknown Verified 02/07/25 15:19
Home Medications
thiamine HCl (vitamin B1) 100 mg tablet 100 mg PO DAILY Supplement 03/13/24
budesonide 160 mcg-glycopyr 9 mcg-formot 4.8 mcg/actuation HFA inhaler (Breztri Aerosphere) 2 inh inhalation R BID Lung/Breathing Issues 04/11/24
magnesium oxide 400 mg PO BID Supplement 06/28/24
rifaximin 550 mg tablet (Xifaxan) 550 mg PO BID hepatic encephalopathy 06/28/24
pantoprazole 40 mg tablet,delayed release (Protonix) 40 mg PO BID Gastrointestinal Issue 08/02/24
lidocaine 4 % topical patch 1 patch topical DAILYPRN PRN right knee and right shoulder 09/08/24
miconazole nitrate 2 % topical powder (Miconazorb AF) 1 applic topical BID groin/scrotum 09/08/24
ondansetron HCl 4 mg tablet 4 mg PO DAILYPRN PRN nasuea 09/08/24
tramadol 50 mg tablet 50 mg PO BIDPRN PRN moderate-severe pain 09/26/24
zinc sulfate 50 mg zinc (220 mg) tablet 50 mg PO DAILY Supplement 11/15/24
lactulose 10 gram/15 mL oral solution 20 g PO TID Constipation 12/14/24
ertapenem 1 gram solution for injection 1 g IV DAILY@1600 Infection 01/04/25
folic acid 400 mcg tablet 0.4 mg PO DAILY Supplement 01/04/25
phenylephrine 0.25 %-mineral oil 14 %-petrolatm 74.9 % rectal ointment (Hemorrhoidal(phenyleph-min oil-petrolat)) 1 applic RI BIDPRN PRN hemorrhoids #0 grams 01/07/25
furosemide 20 mg tablet (Lasix) 20 mg PO DAILY 01/25/25
hydromorphone 2 mg tablet 2 mg PO Q6HPRN PRN severe pain 02/07/25
oxycodone 5 mg tablet 5 mg PO Q6HPRN PRN severe pain 02/07/25
spironolactone 100 mg tablet 100 mg PO DAILY 02/07/25
Review of Systems
-
History Source: Patient
Constitutional: Reports No Symptoms
EENT: Reports No Symptoms
Respiratory: Reports No Symptoms
Cardiac: Reports No Symptoms
Abdomen/GI: Reports Abdominal Pain and Other (umbilical hernia )
: Reports Other (enlarged right testicle )
Musculoskeletal: Reports No Symptoms
Skin: Reports No Symptoms
Neurological: Reports Other (confusion )
Endocrine: Reports No Symptoms
Hematologic/Lymphatic: Reports No Symptoms
Psych: Reports No Symptoms
Physical Exam
Vital Signs
Vital Signs
Temp Pulse Resp BP Pulse Ox
98 F 112 18 113/57 100
02/07/25 16:55 02/07/25 18:34 02/07/25 17:43 02/07/25 18:00 02/07/25 18:18
Physical Exam
General: Well Developed, Well Nourished, No Apparent Distress, Conversant and Appears Chronically Ill
HEENT: NormoCephalic, Moist mucous membranes, Atraumatic, [place] Conjunctivae, Nose Appears Normal and Ears Appear Normal
Respiratory: Clear
Cardiac: S1/S2 and Regular Rhythm; No Murmur
Breast: Deferred by me
GI: Soft, Non Tender, Non Distended and Normal Bowel Sounds; No Organomegaly
Rectal: Deferred by Provider
Genito-urinary: Deferred by me
Musculoskeletal: No Clubbing, No Cyanosis and No Edema
Skin: IV/Catheter Site
Neuro: Awake, Alert, AO x 3 and Nonfocal/grossly intact
Psych: Calm and Intact Judgment/Insight
Laboratory Results
-
02/07/25 17:55
02/07/25 17:55
Laboratory Results
PT 18.9 Sec (11.4-14.6) H 02/07/25 17:55
INR 1.53 02/07/25 17:55
APTT 38.3 Sec (23.4-35.0) H 02/07/25 17:55
Total Bilirubin 1.9 mg/dl (0.2-1.3) H 02/07/25 17:55
AST 34 U/L (17-59) 02/07/25 17:55
ALT 18 U/L (0-50) 02/07/25 17:55
Alkaline Phosphatase 118 U/L (38-126) 02/07/25 17:55
Data Reviewed
-
Lab Data: Labs Reviewed by me (hgb 5.9, hct 17.2, Na 131, BUN 44, Creat 1.8)
Impression/Plan
-
IMPRESSION/PLAN:
#Chronic anemia
#Pancytopenia r/t ESLD
#End-stage liver disease
hgb 5.9, hct 17.2, plt 73
- Admit to med/surg
- Ordered 2 unit PRBCs
- monitor H/H
- ED obtained blood consent
- Consult GI
#Ascites
s/p IR for paracentesis
removed 1 Liter 02/07/2025
- albumin
#Alcoholic cirrhosis
Tot Shantanu 1.9
- continue furosemide, lactulose and Xifaxan
#acute on chronic kidney injury
BUN 44, Creat 1.8
- monitor BMP
#hyponatremia
Na+ 129
- monitor BMP
#spontaneous bacterial peritonitis ESBL E. Coli
pt following with [facility] outpatient
- continue ertapenem
- Consult ID
#liver cancer
recent diagnosis at [facility]
follows with [facility] outpatient
- Consult oncology
#Essential hypertension
- continue spironolactone
#COPD
- continue Breztri
#HCV
#Gastric varices
#Portal hypertensive gastropathy
Code status: full code
DVT Prophylaxis: SCDs
[2025-02-07] MEDS: FLEXBUMIN 100 IV (19:19)
[2025-02-07] MEDS: FLEXBUMIN 50 IV (19:19)
[2025-02-07] MEDS: DILAUDID 0.5 MG IV ×2 (20:24→23:55)
--- NOTE | 2025-02-07 22:31 | ED.GENMED ---
History of Present Illness
General
Chief Complaint: Abdominal Pain
Source: patient and spouse
Exam Limitations: none
Time Seen by Provider: 02/07/25 16:08
Nursing documentation reviewed up to this point in time: agreed with
History of Present Illness
History of Present Illness:
59-year-old male presents emergency department complaining of abdominal pain radiating to his right testicle. This happens when his abdomen needs to be drained. He has alcoholic cirrhosis. His states that he has been somewhat confused
lately. He has an inguinal hernia that is inoperable. This is due to his thrombocytopenia.
Past History
Past History
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 GI bleed, portal gastropathy, hemorrhoids, umbilical hernia, CVA, SBP, E. coli bacteremia, ESBL)
ED Past Surgical History: Other
Social History
Tobacco: Smoker
Alcohol: Former
Drug: None
Personal:
Living: with family
Employment: Employed
Family History
Family History: Diabetes and Other
Review of Systems
Review of Systems
Allergies reviewed?: Yes
All Other Systems: Not applicable
Constitutional: Reports fatigue
EENT: Reports no symptoms
Respiratory: Reports no symptoms
Cardiac: Reports no symptoms
ABD/GI: Reports abdominal pain
: Reports no symptoms
Musculoskeletal: Reports no symptoms
Skin: Reports no symptoms
Neurological: Reports weakness
Endocrine: Reports no symptoms
Hematologic/Lymphatic: Reports no symptoms
Psychiatric: Reports no symptoms
Phy Exam
Physical Exam
Physical Exam:
Physical Exam
General: Chronic ill appearance
Neck: supple. no meningeal signs. normal posterior pharynx
Heart: s1/s2 regular rate and rhythm, no murmur. equal radial
pulses.
HEENT: Pupils equal round reactive to light, EOMI
Lungs: no acute respiratory distress. clear bilaterally
Abdomen: normal bowel sounds. Abdomen distended, ascites, right inguinal hernia
Neuro: alert and oriented. no focal neurological deficits cranial nerves II through XII intact
Skin: no rash
Psychiatric: well kept. interactive and cooperative
Extremities: no edema. no calf tenderness. negative homans. good distal pulses
Course
Orders/Labs/Results
Orders:
Orders
02/07/25 Dinner
Regular
At Your Request: Full Participation
02/07/25 15:21
CXR2 [CR Chest - 2 Views ] Urgent
Comment:
Reason For Exam: picc placement
02/07/25 16:31
Consult Interventional Radiology [IRAD CONSULT] Urgent
Consulting Provider: Tay Sanchez
Was physician already notified: Yes
Reason for Consult/Procedure: paracentesis
Acknowledgement that appropriate orders are entered: N/A
02/07/25 17:13
Body Fluid Cell Count Routine
What is the Body Fluid: peritoneal
Date Specimen was Collected: 02/07/25
Time Specimen was Collected: 17:10
02/07/25 17:55
Ammonia Urgent
Complete Blood Count/With Diff Urgent
Comprehensive Metabolic Panel Urgent
PTT Urgent
Prothrombin Time Urgent
02/07/25 18:30
Type And Crossmatch [Type+Screen] Urgent
02/07/25 18:32
* Blood Bank Products Urgent
Dr's Orders: 1 unit prbcs
Blood Bank Products: *Packed RBC Leuko(PRBC's)
Quantity: 2
Transfuse Today: Yes
Reason: Anemia
02/07/25 18:45
Albumin Human 25% 100 ml [Flexbumin] 25 grams in 100 ml IV TODAY
Albumin Human 25% 50 ml [Flexbumin] 12.5 grams in 50 ml IV TODAY
02/07/25 19:48
Admit/Transfer Patient As Directed
Co-Sign Provider:
Level of Care: Inpatient admission
Assign to:: IMU- Intermediate Care
Physician / Group: Alex Villegas
Diagnosis: abdominal ascites, anemia
Reason for Hospitalization: abdominal ascites, anemia
Expected length of stay greater than two midnights?: Yes
ELOS- Estimated Length of Stay in days: 3
I certify the patient meets the requirements for IP care: Yes
02/07/25 19:49
PRN Pain Medication Management As Directed
May give lesser potent ordered pain med per pt: Yes
preference::
Protocol:: Medication orders for pain may be administered in a
manner that supports deferring to patient preference
when the pt is:
- Requesting an ordered lesser potent pain medication.
Least to most potent pain medications are defined
as: acetaminophen < NSAID < tramadol < opioids
(morphine, oxycodone, hydromorphone).
- Requesting a lesser dose of the same medication IF
ORDERED.
- Requesting a less intrusive route of administration
if both routes are prescribed by the provider (PO <
IV).
02/07/25 19:52
Code Status As Directed
Resuscitation Status: Full Code
02/07/25 19:59
HYDROmorphone [Dilaudid] 0.5 mg IV NOW STA
02/07/25 20:24
PRN Pain Medication Management As Directed
May give lesser potent ordered pain med per pt: Yes
preference::
Protocol:: Medication orders for pain may be administered in a
manner that supports deferring to patient preference
when the pt is:
- Requesting an ordered lesser potent pain medication.
Least to most potent pain medications are defined
as: acetaminophen < NSAID < tramadol < opioids
(morphine, oxycodone, hydromorphone).
- Requesting a lesser dose of the same medication IF
ORDERED.
- Requesting a less intrusive route of administration
if both routes are prescribed by the provider (PO <
IV).
02/07/25 21:47
Acetaminophen [Tylenol] 650 mg PO Q4HPRN PRN
HYDROmorphone [Dilaudid] 0.25 mg IV Q4HPRN PRN
HYDROmorphone [Dilaudid] 0.5 mg IV Q4HPRN PRN
Lidocaine [Lidocaine 4% Patch] 1 patch TOPICAL DAILYPRN PRN
Apply Lidocaine patch(s) to:: right knee and right shoulder
Miconazole Nitrate [Desenex/Mitrazol/Zeasorb] 1 applic TOPICAL BID
Pantoprazole [Protonix] 40 mg PO BID
Phenyleph/Mineral Oil/Petrolat [Preparation H Ointment] 1 applic RECTAL BIDPRN PRN
Rifaximin [Xifaxan] 550 mg PO BID
ciqxjgkmbg-xpmkofbb-dyznhbxzhw [Breztri Aerosphere] 2 inh INH R BID
magnesium oxide 400 mg PO BID
02/07/25 21:47
GASTROINTESTINAL CONSULT Routine
Consulting Provider: Inge Fitzpatrick
Was physician already notified: Yes
INFECTIOUS DISEASE CONSULT Routine
Consulting Provider: Tony Muse
Was physician already notified: Yes
ONCOLOGY CONSULT Routine
Consulting Provider: Kayley Alanis
Was physician already notified: Yes
Activity As Directed
Activity Level: Out of Bed-Early Mobility
Pneumatic Compression Sleeves As Directed
Type: Knee high
Vital Signs As Directed
Frequency: Per unit guidelines
Weight As Directed
Frequency: Daily
DX Deep Vein Thrombosis Video Routine
02/07/25 22:00
Lactulose [Duphalac/Chronulac] 20 grams PO TID
02/08/25 06:00
Basic Metabolic Panel IN AM
Complete Blood Count/No Diff IN AM
02/08/25 08:00
FOLic ACID [Folvite] 0.4 mg PO DAILY
Furosemide [Lasix] 20 mg PO DAILY
Zinc 50mg (Zinc Sulfate 220mg) [Zinc] 50 mg PO DAILY
spironolactone 100 mg PO DAILY
thiamine HCl (vitamin B1) 100 mg PO DAILY
02/08/25 16:00
ertapenem [ertapenem] 1 grams IV DAILY@1600
02/09/25 06:00
Basic Metabolic Panel IN AM
Complete Blood Count/No Diff IN AM
02/10/25 06:00
Basic Metabolic Panel IN AM
Complete Blood Count/No Diff IN AM
Abnormal Lab Results
02/07/25 02/07/25
17:55 18:30
WBC 4.7 L 10^3/uL
(4.8-10.8)
RBC 1.83 L 10^6/uL
(4.70-6.10)
Hgb 5.9 L* g/dL
(13.0-18.0)
Hct 17.2 L* %
(39.0-52.0)
MCH 32.2 H pg
(27.0-31.0)
RDW 17.6 H %
(11.5-14.5)
Plt Count 73 L 10^3/uL
(130-400)
Absolute Lymphs (auto) 0.5 L 10^3/uL
(1.2-3.4)
Immature Gran % 0.6 H %
(0-0.5)
Neutrophils % 75.5 H %
(42.2-75.2)
Lymphocytes % 9.8 L %
(20.5-51.1)
Monocytes % 10.5 H %
(1.7-9.3)
PT 18.9 H Sec
(11.4-14.6)
APTT 38.3 H Sec
(23.4-35.0)
Sodium 131 L mmol/L
(135-145)
BUN 44 H mg/dl
(9-20)
Creatinine 1.8 H mg/dL
(0.7-1.3)
Glucose 114 H mg/dl
(70-99)
Calcium 7.7 L mg/dl
(8.4-10.2)
Total Bilirubin 1.9 H mg/dl
(0.2-1.3)
Total Protein 4.1 L g/dl
(6.3-8.2)
Albumin 2.5 L g/dl
(3.5-5.0)
Crossmatch IS Only See Detail
MTS Gel Crossmatch See Detail
02/07/25 17:55
02/07/25 17:55
Vital Signs
Initial and Last Documented VS:
Initial Vital Signs
Temp Pulse Resp BP Pulse Ox
99.1 F 107 18 104/59 99
02/07/25 15:17 02/07/25 15:17 02/07/25 15:17 02/07/25 15:17 02/07/25 15:17
Last Documented Vital Signs
Temp Pulse Resp BP Pulse Ox
98.8 F 105 20 103/50 99
02/07/25 22:21 02/07/25 22:21 02/07/25 22:21 02/07/25 22:21 02/07/25 22:21
MDM/Problems Addressed
Differential Diagnosis Includes:
Anemia, cirrhosis, ascites
MDM/Problems Addressed:
59-year-old male with anemia, cirrhosis, ascites. Drained, albumin given, 1 unit packed red blood cells given. Admit to hospitalist.
Chronic conditions affecting care: Other (Cirrhosis)
Acute Exacerbation and/or Progression of Chronic Illness: Other (Cirrhosis)
*Radiology
Radiology exam reviewed: radiology read reviewed (Chest x-ray read return to PICC in place)
*Pulse Oximetry
Patient hypoxic: no
*Critical Care Note
Total Time (30-74mins, 75-104mins- exclusive of procedures): 33
comment:
Critical care statement: A total of 33 minutes of critical care time was provided for this patient. This includes management of unstable vital signs, evaluation of the patient at bedside, reviewing the patient's pertinent medical records, discussion
with consultants, review of old EKGs and review of pertinent medical records. This time with separate from time utilized to perform the aforementioned documented procedures
Patient Management
Social determinants of health affecting care: Living situation and Strong social support
Discussion with other providers: Hospitalist
Escalation/DeEscalation of care consider admission/obs:
Admit indicated
ED Attending Note
-
Portions of this chart may have been created with voice recognition software.� Occasional wrong word or��sound alike� substitutions may have occurred due to the inherent limitations of voice recognition software.
Discharge Plan
Departure
Patient Disposition: Admit
Date of Disposition: 02/07/25
Time of Disposition: 18:38
Admit to: Telemetry
Presentation/result/management discussed w/ accepting MD/DO: Hospitalist
Patient with high blood pressure during this ER visit?: No
Condition: Fair
Discharge Problem:
Anemia, Abdominal ascites
Interventions
Interventions:
*Risk Screen - Suicide Last Done: 02/07/25 15:17
*General Assessment Last Done: 02/07/25 15:17
*Neglect/Abuse Screening Last Done: 02/07/25 15:17
*ED- Fall Risk Assessment Last Done: 02/07/25 15:51
*ED COVID-19 Vaccine History Last Done: 02/07/25 15:17
*Nursing Disposition Last Done: 02/07/25 21:40
RW-Nggjnw-Azqzqrjpok Assessment Last Done: 02/07/25 19:42
Discharge Date and Time
Discharge Date/Time: 02/07/25 21:40
[2025-02-07] MEDS: PROTONIX 40 MG PO (23:54)
[2025-02-07] MEDS: XIFAXAN 550 MG PO (23:54)
[2025-02-07] MEDS: MAG-TAB SR 84 MG PO (23:54)
[2025-02-07] MEDS: DUPHALAC/CHRONULAC PO (23:55)
[2025-02-08] VITALS (32 sets, daily range): BP systolic 89–115; BP diastolic 48–75; BMI 23.1
[2025-02-08] MEDS: DILAUDID 0.5 MG IV ×5 (04:20→19:33)
[2025-02-08] MEDS: DESENEX/MITRAZOL/ZEASORB 1 APPLIC TOPICAL ×3 (05:02→20:10)
--- NOTE | 2025-02-08 07:05 | W.PN.HOSP.TC ---
Today's Communication/Plan
-
transfusion goal Hgb>7
Assessment / Plan
Assessment / Plan
Physical Exam
General: Appears Chronically Ill, no acute distress. Jaundice
HEENT: NormoCephalic, Moist mucous membranes, Atraumatic, [place] Conjunctivae
Respiratory: Clear
Cardiac: S1/S2 and Regular Rhythm; No Murmur
GI: Soft, Non Tender, Distended and Normal Bowel Sounds
Musculoskeletal: No Clubbing, No Cyanosis and No Edema
Neuro: AOx3 conversant coherent, no asterixis noted
Psych: Calm
59M alcoholic cirrhosis, chronic anemia, pancytopenia, HTN, COPD, Hx CVA, gastric varices and portal hypertensive gastropathy, inoperable inguinal hernia, SBP currently on home infusion IV abx p/w severe abdominal pain, increased abd distension,
enlarged right testicle, and confusion. Pt symptomatically improved following paracentesis w/ IR, 7100 mL fluid drawn. Patient was recently admitted at this facility 01/16/25-01/17/25 for severe anemia requiring 4PRBC. MELD score 30, patient was
transferred to [facility] for possible benefit transplant, found to have liver mass/cancer on further evaluation. ED eval here noted hgb 5.9. Patient has had multiple transfusions over the past yr secondary to chronically oozing portal hypertensive
gastropathy. Sinus tachy but BP stable afebrile. Stable respiratory status on room air.
#Chronic anemia
#Pancytopenia r/t ESLD
#End-stage liver disease, Alcoholic vs Hep C Cirrhosis
#History Hep C treated
#Gastric varices
#Portal hypertensive gastropathy
- IMU
- monitor H/H, transfusion goal Hgb>7
-requiring multiple transfusions
- Consult GI appreciated Octreotide started, cont Lasix Aldactone Lactulose Xifaxan, protonix 40 mg BID
#Ascites
s/p IR for paracentesis
removed 7 Liters 02/07/2025
- albumin repleted
#acute on chronic kidney injury
BUN 44, Creat 1.8
- monitor BMP
#Mild Hyponatremia
monitor
#spontaneous bacterial peritonitis ESBL E. Coli
pt following with [facility] outpatient
- continue ertapenem
- Consult ID appreciated
#liver cancer
recent diagnosis at [facility]
follows with [facility] outpatient
- Consult oncology
#Essential hypertension
- continue spironolactone
#COPD
- continue Breztri
Code status: full code
DVT Prophylaxis: SCDs
I spent a total of 50 minutes with the patient or on the floor. More than 50% of this time involved counseling and coordination of care.
Anticipated Discharge: 24 - 48 hours
Subjective/Interval History
-
Date of Service: February 08, 2025
no acute distress sitting up comfortably in bed. Reports significant improvement in abd distension since paracentesis.
Objective Data
-
Labs:
Laboratory Results
02/08/25
06:00
WBC Pending
Hgb Pending
Hct Pending
Plt Count Pending
Sodium Pending
Potassium Pending
Chloride Pending
Carbon Dioxide Pending
BUN Pending
Creatinine Pending
Glucose Pending
Calcium Pending
Vital Signs:
Vital Signs
Temp Pulse Resp BP Pulse Ox
98.2 F 94 14 100/58 96
02/08/25 04:56 02/08/25 06:00 02/08/25 06:00 02/08/25 06:00 02/08/25 04:02
I&O
02/07/25 02/08/25 02/09/25
06:59 06:59 06:59
Intake Total 1000 / 1000
Balance 1000 / 1000
[2025-02-08 07:31] LABS: Hemoglobin 5.9 g/dL (13.0-18.0); Mean Corp Hgb Conc. 34.7 g/dL (33.0-37.0); Mean Corpuscular Hgb 31.7 pg (27.0-31.0); Mean Corpuscular Volume 91.4 fL (80.0-94.0); Platelet Count 51 10^3/uL (130-400); Red Blood Cell Count 1.86 10^6/uL (4.70-6.10); Red Cell Dist. Width 17.3 % (11.5-14.5); White Blood Cell Count 3.2 10^3/uL (4.8-10.8)
[2025-02-08] MEDS: MAG-TAB SR 84 MG PO ×2 (07:50→20:15)
[2025-02-08] MEDS: LASIX 20 MG PO (07:50)
[2025-02-08] MEDS: XIFAXAN 550 MG PO ×2 (07:50→20:15)
[2025-02-08] MEDS: FOLVITE 0.4 MG PO (07:50)
[2025-02-08] MEDS: ZINC 50 MG PO (07:51)
[2025-02-08] MEDS: PROTONIX 40 MG PO ×2 (07:51→20:15)
[2025-02-08] MEDS: VITAMIN B1 100 MG PO (07:51)
[2025-02-08] MEDS: DUPHALAC/CHRONULAC PO (07:51)
[2025-02-08 07:56] LABS: Blood Urea Nitrogen 50 mg/dl (9-20); Calcium 7.6 mg/dl (8.4-10.2); Carbon Dioxide 23 mmol/L (22-30); Chloride 105 mmol/L (98-107); Estimated Creatinine Clearance 50 ml/min; Glucose 93 mg/dl (70-99); Potassium 4.6 mmol/L (3.5-5.1); Sodium 132 mmol/L (135-145); eGFR 48.72
[2025-02-08 08:17] LABS: Hematocrit 17.5 % (39.0-52.0); Mean Corp Hgb Conc. 34.3 g/dL (33.0-37.0); Mean Corpuscular Hgb 31.6 pg (27.0-31.0); Mean Corpuscular Volume 92.1 fL (80.0-94.0); Mean Platelet Volume 10.5 fL (7.4-10.4); Platelet Count 51 10^3/uL (130-400); Red Cell Dist. Width 17.3 % (11.5-14.5); White Blood Cell Count 3.3 10^3/uL (4.8-10.8)
--- NOTE | 2025-02-08 09:03 | CON.ID ---
Consultation
-
Date/Time Consultation Requested: 02/07/2025 2147
Date/Time Consultation Performed: 02/08/2025 0900
Requesting Provider: Tonya Cadena
Performing Provider: Dr. Muse
Reason for Consultation: Abdominal ascites; Hx recurrent SBP
Chief Complaint / Past History
Chief Complaint
abdominal pain
History of Present Illness
Cortez Mazariegos is a 59-year-old man being evaluated at the request of Tonya Cadena in regards to ascites and recurrent SBP. History is obtained from chart review, along with patient interview.
The patient was last seen by me in mid December. Following that he was discharged on a prolonged course of IV ertapenem in the treatment of ESBL E. coli recovered from ascites fluid on multiple occasions. Additionally, he has had bacteremia on
multiple occasions. Following his discharge, he was evaluated at [facility] for possible transplant, but in the workup, he was evidently found to be positive for liver cancer, and is not currently on the transplant list. He has been seen by Infectious
Diseases at [facility], who agreed with a somewhat prolonged course of IV antibiotics, but with the understanding there would be an eventual ending of them. Currently he is slated to be done with his ertapenem infusion on 02/18/2025.
He presents to the emergency room yesterday secondary to increasing abdominal pain, abdominal distention and reported confusion. He underwent paracentesis, with recovery of 7100 mL fluid. Currently he reports feeling improved, with decreased
abdominal discomfort. He denies any recent fevers or chills.
Past History
Additional Past Medical History:
End-stage liver disease
Alcoholic cirrhosis
Chronic anemia
Pancytopenia
HCV
GI bleed
Essential hypertension
COPD
History of stroke
Gastric varices
Portal hypertensive gastropathy
Past Surgical History: None
Additional Past Surgical History:
Recurrent paracentesis.
Allergy History:
doxycycline Allergy (Verified 02/07/25 15:19)
Unknown
Medications Reviewed: Yes
Current Antibiotics:
Ertapenem 1 g IV every 24 hours (end date = 02/18/2025)
Social History
Tobacco: Former Smoker
Alcohol: Former
Drug: None
Personal:
Living: With Family
Employment: Not Employed
Family History
Family History: Not Pertinent
Review of Systems
Vital Signs
Temp Pulse Resp BP Pulse Ox
97.9 F 104 14 100/58 96
02/08/25 07:05 02/08/25 07:15 02/08/25 07:15 02/08/25 06:00 02/08/25 04:02
Physical Exam
Physical Exam
Constitutional: Comfortable, Chronically Ill and Non-toxic
Eyes: No Conjunctival Hemorrhage and Sclera Anicteric
Oral: No Thrush and No Ulcers
Cardiovascular: S1/S2; Negative S3/S4
Pulmonary: Clear and Non Labored
Gastrointestinal: Soft, Tender (Minimal), Non Distended (Protuberant), Normal Bowel Sounds, No Rebound and No Guarding
Extremities: Edema; Negative Cyanosis or Erythema
Neurological: Awake and Alert
Psychological: Calm
Lab / Diagnostic Study Results
02/08/25 07:07
Abs Immat Gran (auto) 0.0 10^3/uL (0-0.05) 02/07/25 17:55
Absolute Neuts (auto) 3.5 10^3/uL (1.4-6.5) 02/07/25 17:55
Absolute Lymphs (auto) 0.5 10^3/uL (1.2-3.4) L 02/07/25 17:55
Absolute Monos (auto) 0.5 10^3/uL (0.1-0.6) 02/07/25 17:55
Absolute Basos (auto) 0.0 10^3/uL (0-0.2) 02/07/25 17:55
Immature Gran % 0.6 % (0-0.5) H 02/07/25 17:55
Neutrophils % 75.5 % (42.2-75.2) H 02/07/25 17:55
Lymphocytes % 9.8 % (20.5-51.1) L 02/07/25 17:55
Monocytes % 10.5 % (1.7-9.3) H 02/07/25 17:55
Eosinophils % 3.2 % (0-6) 02/07/25 17:55
Basophils % 0.4 % (0-2) 02/07/25 17:55
PT 18.9 Sec (11.4-14.6) H 02/07/25 17:55
INR 1.53 02/07/25 17:55
Assessment / Plan
Recurrent ascites
- s/p paracentesis with recovery of 7100 mL
- Fluid analysis not consistent with current SBP
Hx recurrent SBP secondary to ESBL E. coli
-On prolonged course of ertapenem (through 02/18/2025)
Anemia
End-stage liver disease
Alcoholic cirrhosis
Chronic anemia
Pancytopenia
HCV
GI bleed
Essential hypertension
COPD
History of stroke
Gastric varices
Portal hypertensive gastropathy
Recommendations:
Continue with current course of ertapenem. At time of discharge will facilitate resumption of outpatient IV antibiotics
Continue with supportive measures.
Monitor white count and temperature curve.
Transfusions as per primary service.
--- NOTE | 2025-02-08 10:29 | CON.GI ---
Addendum entered and electronically signed by Inge Fitzpatrick DO 02/08/25 13:37:
The patient was seen and examined by me independently in collaboration with the nurse practitioner.
Past medical history/social history/medications/allergies/family history reviewed.
Lab data and imaging data reviewed.
Cortez Mazariegos is a 59-year-old male who is well-known to [facility], past medical history of decompensated etoh/hcv cirrhosis c/b recurrent ascites multiple admissions for ESBL klebsiella SBP and recurrent aerococcus viridans bacteremia and
SBP w/ bacteremia, encephalopathy, GI bleeding due to oozing PHG and gastric varices (s/p gastric coiling 09/2024), CVA, HTN, COPD, thromboctyopenia and recently diagnosed HCC admitted for acute on chronic anemia following large volume paracentesis.
He was previously being worked up for liver transplant at [facility], however, questionable if he would be listed due to previous UDS +cocaine and postive PETH, however, recent imaging
Of note, he was recently transferred to [facility] after admission admission to [place] on 01/16 with concern for GI bleeding, he responded to blood transfusion at that time. On transfer he appeared volume overloaded and was treated with
Terlipressin 3 days with improvement in his creatinine at noon back to his baseline function. ID was consulted for his recurrent ESBL SBP, vancomycin was started for Aeromonas bacteremia but it was suspected be a contaminant. To evaluate for
occult sources of infection given his recurrent SBP and bacteremia, a PET/CT was obtained demonstrating an exophytic right hepatic lobe mass with mild FDG uptake suspicious for hepatocellular carcinoma. He subsequently had an MRI which showed
segment 7/6 LR-5 measuring 4.1 cm. His case was discussed with the transplant team and he was deemed not a candidate for transplant due to his medical comorbidities and deconditioned status. Following the recent HCC finding, he had planned to
establish care with [facility] to discuss potential treatment options. He was seen by oncology earlier today, deemed not a candidate for systemic therapy, however, locoregional therapy may be an option, recommending radiation oncology
consult.
#Recurrent Ascities
#ESBL Klebsiella SBP c/b bacteremia
# Aerococcus viridans bacteremia (likely contaminant) s/p treatment with vancomycin
-s/p paracentesis 02/07, neg SBP, albumin protocol given
-currently on a prolonged treatment course of Ertapenem (will complete 02/18/25)
#Acute on Chronic Anemia-- hx of oozing PHG requiring tx with APC, isolated gastric varices requiring coil emoblization (09/2024)
-Hgb 5.9 --> 5.9 --> 6 following 2 units of PRBC, current presentation not consistent with variceal screening
-ideally would perform EGD today, however, patient currently has a diet ordered
-recommend giving another unit, goal >7, if he is transfusion dependent unable to keep him above 7, recommend performing EGD this weekend, of course, if concern for variceal bleed would plan to perform urgently
-hgb down to 6.0 at [facility], given 2 units of PRBC, EGD was deferred
-BUN 44 --> 50, Cr. 1.8 --> 1.6
-hold off on PPI gtt
-recommend staring octreotide
HRS 1
-Recent admission wt concern for HRS, treated with triple therapy, then terlipressin at [facility] with improvement
-per d/c summary, Cr. went to <1.5 (peaked at 2.26), hold on albumin for now and monitor
Decompensated Cirrhosis c/b new HCC
-MELD 3.0 =22
-HE: c/w lactulose and Rifaximin
-deemed not a transplant candidate by [facility], recommend he seek out other institutions for evaluation
-New HCC diagnosis, 4.1 cm, within [place] criteria
Addendum entered and electronically signed by MARCIA Valdez 02/08/25 12:58:
on review of [facility] records from recent admission -- pt case discussed with transplant team and deemed not a candidate due to deconditioning and co mobilities. He was informed of other transplant centers to seek eval and follow up with oncology.
Original Note:
Consultation
-
Date/Time Consultation Requested: 02/07/252129
Date/Time Consultation Performed: 02/08/25 1030
Requesting Provider: ROSIE Alexander
Performing Provider: MARCIA Rossi, Jeny Fitzpatrick DO
Reason for Consultation: anemia, cirrhosis
Medical History
Chief Complaint / HPI
Chief Complaint: Abdominal pain, vomiting x 1
History of Present Illness:
59 y.o male well-known to GI group multiple medical issues and past medical history significant for decompensated cirrhosis (HCV vs EtOH) with intractable ascites with weekly paracentesis, HE, GI bleeding by recurrent hospitalizations with HE
secondary to acute on chronic GI bleeding 2/2 PHG, gastric varix, hx of prior post-polypectomy bleed, prior transfer to [facility] for Ultrasound guided gastric artery coiling procedure (09/2024), chronic HCV (s/p treatment with Epclusa s/p SVR), CVA,
HTN, COPD, and chronic thrombocytopenia. He has been following with hepatology Dr. Dan at [facility] to review for liver transplant and noted with +PETH test then neg, + cocaine(denied use), recent recurrent SBP (ESBL/ Ecoli) with transfer to [facility]
on recent admission with and [facility] ID follow and rise in MELD during admission then noted with concern for right hepatic mass on PET CT and follow up MRI despite multiple imaging studies in past few months including CT and MRI without mass. He
is due for follow up with oncology and now presents with continued abdominal pain, distention and continued anemia with hbg down to 5.9. He is also noted with continued thrombocytopenia, coagulopathy, hyponatremia, and hypoalbuminemia.
At this time patient admits to continued abdominal pain worse in right side, He denies dysphagia, GERD, nausea, vomiting, diarrhea, constipation, or rectal bleeding.
Past Medical History
Past Medical History: Cancer (HCC per pet CT at [facility]), COPD, CVA, HTN and Other (Decompensated alcoholic/hepatitis C cirrhosis with ascites and HE, ETOH abuse, chronic thrombocytopenia, cigarette smoker, chronic hyponatremia, hepatitis C status
posttreatment with Epclusa and eradication, chronic pain syndrome, anxiety, insomnia, Hx of GI bleed with portal HTN,prior gastic coil)
Past Surgical History: Other (Mohs surgery, colon polyp with post-polypectomy bleed, spinal leak with patch, tooth extraction)
Social History
Tobacco: Non-Smoker
Alcohol: Former
Drug: Former User
Personal:
Living: With Family
Employment: Not Employed
Family History
Family History: Other (No family history of gastrointestinal malignancy or IBD)
Allergies / Home Medications
Allergy/AdvReac Type Severity Reaction Status Date / Time
doxycycline Allergy Unknown Verified 02/07/25 15:19
�Medication �Instructions �Recorded
thiamine HCl (vitamin B1) 100 mg 100 mg PO DAILY Supplement 03/13/24
tablet
budesonide 160 mcg-glycopyr 9 2 inh inhalation R BID 04/11/24
mcg-formot 4.8 mcg/actuation HFA Lung/Breathing Issues
inhaler (Breztri Aerosphere)
magnesium oxide 400 mg PO BID Supplement 06/28/24
rifaximin 550 mg tablet (Xifaxan) 550 mg PO BID hepatic 06/28/24
encephalopathy
pantoprazole 40 mg tablet,delayed 40 mg PO BID Gastrointestinal Issue 08/02/24
release (Protonix)
lidocaine 4 % topical patch 1 patch topical DAILYPRN PRN right 09/08/24
knee and right shoulder
miconazole nitrate 2 % topical 1 applic topical BID groin/scrotum 09/08/24
powder (Miconazorb AF)
ondansetron HCl 4 mg tablet 4 mg PO DAILYPRN PRN nasuea 09/08/24
tramadol 50 mg tablet 50 mg PO BIDPRN PRN 09/26/24
moderate-severe pain
zinc sulfate 50 mg zinc (220 mg) 50 mg PO DAILY Supplement 11/15/24
tablet
lactulose 10 gram/15 mL oral 20 g PO TID Constipation 12/14/24
solution
ertapenem 1 gram solution for 1 g IV DAILY@1600 Infection 01/04/25
injection
folic acid 400 mcg tablet 0.4 mg PO DAILY Supplement 01/04/25
phenylephrine 0.25 %-mineral oil 1 applic [place] BIDPRN PRN hemorrhoids 01/07/25
14 %-petrolatm 74.9 % rectal #0 grams
ointment
(Hemorrhoidal(phenyleph-min
oil-petrolat))
furosemide 20 mg tablet (Lasix) 20 mg PO DAILY 01/25/25
hydromorphone 2 mg tablet 2 mg PO Q6HPRN PRN severe pain 02/07/25
oxycodone 5 mg tablet 5 mg PO Q6HPRN PRN severe pain 02/07/25
spironolactone 100 mg tablet 100 mg PO DAILY 02/07/25
Review of Systems
-
History Source: Patient
Constitutional: Reports Other (wt up and down with fluid )
Respiratory: Reports No Symptoms
Cardiac: Reports No Symptoms
Abdomen/GI: Reports Abdominal Pain (chronic diffuse worse right side ) and Other (distention with ascites)
: Reports Other (scrotal swelling )
Musculoskeletal: Reports No Symptoms
Skin: Reports No Symptoms
Neurological: Reports Weakness
Endocrine: Reports No Symptoms
Hematologic/Lymphatic: Reports Bleeding (chronic oozing with anemia )
Vital Signs
Temp Pulse Resp BP Pulse Ox
97.9 F 106 14 101/55 95
02/08/25 07:05 02/08/25 09:45 02/08/25 09:45 02/08/25 08:02 02/08/25 09:56
Physical Exam
Exam
General: Other (chronic ill appearing with multiple bruises , lethargic after dilaudid per staff )
HEENT: Normocephalic and Other (jaundice )
Respiratory: Other (decreased bases )
Cardiac: Peripheral Edema and Other (tachy )
GI: Soft, Tender (diffuse right greater than left ) and Distended
Musculoskeletal: No Clubbing and No Cyanosis
Skin: Warm and Dry
Neuro: Awake (s/p diluadid with some drifting in conversation but answering most questions )
Psych: Calm
Results
WBC 3.3 10^3/uL (4.8-10.8) L 02/08/25 07:57
Hgb 6.0 g/dL (13.0-18.0) L* 02/08/25 07:57
Hct 17.5 % (39.0-52.0) L* 02/08/25 07:57
MCV 92.1 fL (80.0-94.0) 02/08/25 07:57
Plt Count 51 10^3/uL (130-400) L 02/08/25 07:57
Absolute Neuts (auto) 3.5 10^3/uL (1.4-6.5) 02/07/25 17:55
PT 18.9 Sec (11.4-14.6) H 02/07/25 17:55
INR 1.53 02/07/25 17:55
APTT 38.3 Sec (23.4-35.0) H 02/07/25 17:55
Sodium 132 mmol/L (135-145) L 02/08/25 07:07
Potassium 4.6 mmol/L (3.5-5.1) 02/08/25 07:07
Chloride 105 mmol/L (98-107) 02/08/25 07:07
Carbon Dioxide 23 mmol/L (22-30) 02/08/25 07:07
BUN 50 mg/dl (9-20) H 02/08/25 07:07
Creatinine 1.6 mg/dL (0.7-1.3) H 02/08/25 07:07
Calcium 7.6 mg/dl (8.4-10.2) L 02/08/25 07:07
Total Bilirubin 1.9 mg/dl (0.2-1.3) H 02/07/25 17:55
AST 34 U/L (17-59) 02/07/25 17:55
ALT 18 U/L (0-50) 02/07/25 17:55
Alkaline Phosphatase 118 U/L (38-126) 02/07/25 17:55
Diagnostic Image Results:
hx multiple para last 02/07/25 7100 neg SBP
01/17/25 path neg malignant cells
01/2025 PET/CT at [facility]- possible PNA, exophyic right hepatic lobe mass concern for HCC
01/23/24- MRI [facility]- segment 7/6 LR 5 observation 4.1 cm suspicious for maligancy of liver, cirrhosis with portal HTN
01/02/25 CT Abd/pelvis W Iv Cont
Hepatic cirrhosis with secondary findings of portal hypertension including splenomegaly, portosystemic collaterals, and large volume abdominopelvic ascites. Other chronic findings,
Large volume abdominopelvic ascites. Nodularity of the liver contour in keeping with cirrhosis. Metallic streak artifact again emanates from coils/clips in the central upper abdomen. The spleen is enlarged and measures 15.1 cm in length. The
gallbladder, bile ducts, pancreas, bilateral adrenal glands, and kidneys are unremarkable other than a few small right renal cysts and a punctate right renal calculus. No hydronephrosis.
per notes second read at [facility] with 3.4 x 3.2 cm mass right lobe of liver concern for HCC
09/10/25 MRI [facility] extensive splenic varcies with splenorenal shutn perigastric and periesophageal varices, cirrhosi with portal HTN similar to 08/2024 no suspicious hepatic lesions seen
11/16/2024 EGD ([facility]) - Bleb found in the esophagus.
- Gastric varices, without bleeding.
- Bleeding Portal hypertensive gastropathy. Treated
with a monopolar probe.
- No specimens collected.
09/2024 gastric art coiling procedure at [facility] -- report pending
09/11/2024 EGD [facility] (Dr. Malcolm) : Normal esophagus. Type I isolated gastric varices (IGV 1, varices located in the fundus) without bleeding. Normal examined duodenum. No specimens collected.
09/09/24 EGD [facility] - Type 1 isolated gastric varices (IGV1, varices
located in the fundus) with a small amount of oozing
and stigmata of recent bleeding found in the gastric
fundus. This is the source of patient's presentation.
No endoscopic therapy was performed given large
isolated gastric varices as these were not contiguous
with the GE-junction
- Moderate portal hypertensive gastropathy
- Otherwise, normal stomach on direct and retroflexion
views
- Normal esophagus without any esophageal varices
- Small amount of red blood in the second portion of
the duodenum. No duodenal varices were visualized
- The examination was otherwise normal.
- No specimens collected.
colonoscopy 08/22/24 Charlotte Bunn MD Non-bleeding internal hemorrhoids were found during retroflexion. The
hemorrhoids were large.
Multiple diverticula were found in the sigmoid colon and descending
colon.
The exam was otherwise without abnormality.
Diffuse colopathy
Old ovesco clip seen in ascending colon
An 8 mm polyp was found in the sigmoid colon. The polyp was sessile.
Polypectomy was not attempted given recent GI bleeding.
repeat colon 6-12 month with fair prep and polyps removed
Small bowel enteroscopy 08/22/24 Charlotte Bunn MD
- Normal esophagus.
- Severe portal hypertensive gastropathy with active
bleeding. Treated with argon plasma coagulation (APC).
- 2 cm hiatal hernia.
- Normal examined duodenum.
- The examined portion of the jejunum was normal.
- No specimens collected.
EGD: 06/29/24 maci Gaviria MD - Normal esophagus.
- Portal hypertensive gastropathy.
- Normal examined duodenum.
- No specimens collected.
05/07/[address] Smith : - Hemorrhoids found on perianal exam.
- The examined portion of the ileum was normal.
- Foreign body ([employer] clip) at the hepatic flexure.
- Polypoid lesion at the hepatic flexure.
- Diverticulosis in the sigmoid colon and in the
descending colon.
- Internal hemorrhoids.
- No specimens collected.
Colonoscopy 04/13/2024-[facility] - One 15 to 18 mm polyp at the hepatic flexure,
removed using lift and cut and a hot snare and removed
with a cold snare. Resected and retrieved. Injected.
Treated with hot biopsy forceps. Ligated.
- One 4 mm polyp in the descending colon, removed with
a hot snare. Resected and retrieved. Clip was placed.
- Diverticulosis in the sigmoid colon, in the
descending colon and at the splenic flexure.
bx DC -TA and HF - HP polyp
EGD 04/13/2024� [facility] - No gross lesions in the entire esophagus. No varices.
- Z-line variable, 42 cm from the incisors.
- Portal hypertensive gastropathy.
- Normal examined duodenum.
- No specimens collected.
EGD:12/27/22 [facility] - Normal esophagus.
- Portal hypertensive gastropathy.
- Normal examined duodenum.
- No specimens collected.
Assessment / Plan
-
59 y.o male well-known to GI group multiple medical issues and past medical history significant for decompensated cirrhosis (HCV vs EtOH) with intractable ascites with weekly paracentesis, HE, GI bleeding by recurrent hospitalizations with HE
secondary to acute on chronic GI bleeding 2/2 PHG, gastric varix, hx of prior post-polypectomy bleed, prior transfer to [facility] for Ultrasound guided gastric artery coiling procedure (09/2024), chronic HCV (s/p treatment with Epclusa s/p SVR), CVA,
HTN, COPD, and chronic thrombocytopenia. He has been following with hepatology Dr. Dan at [facility] to review for liver transplant and noted multiple issues prior to listing with +PETH test then neg, + cocaine(denied use), recent recurrent SBP
(ESBL/ Ecoli) with and [facility] ID follow and recent transfer to [facility] with rise in MELD during admission. During stay at [facility] noted with with concern for right hepatic mass on PET CT and follow up MRI despite multiple imaging studies in past
few months including CT and MRI without mass. He is due for follow up with oncology and now presents with continued abdominal pain, distention and continued anemia with hbg down to 5.9. He is also noted with continued thrombocytopenia,
coagulopathy, hyponatremia, and hypoalbuminemia.
Decompensated cirrhosis (hx ETOH/HCV s/p Tx)
newly noted HCC at [facility] in recent evaluation
hx recurrent SBP -ESBL/Ecoli with ID follow
chronic anemia with blood loss
persistent abdominal pain
elevated creat with concern for heptorenal syndrome
hx HE on chronic lactulose
GI bleeding by recurrent hospitalizations with HE secondary to acute on chronic GI bleeding 2/2 PHG, gastric varix, hx of prior post-polypectomy bleed and prior transfer to [facility] for Ultrasound guided gastric artery coiling procedure (09/2024)
thrombocytopenia
hypoalbuminemia
coagulopathy
other med problems:
CVA
HTN
COPD
prior substance abuse
Plan:
ETiology of anemia likely chronic oozing with hx portal HTN
pt with 14 units transfused since November with persistent anemia
hbg 6 this am for additional transfusion
no stool overnight or signs of agressive bleeding- s/p multiple EGD/colon completed in past year
reviewed with nursing staff some drowsiness after Dilaudid-- pt did also not take lactulose this am-- encouraged to take
he has new HCC per recent work up at [facility] -- for oncology eval -- was due OP but now for IP consult
s/p para 4/3 neg SBP s/p albumin protocol
abx per ID with recurrent SBP issue
cont lasix and Aldactone with close follow of labs
cont Lactulose and Xifaxan
-Pantoprazole 40 mg PO BID
await oncology recs to further review for goals of care
-
-
Thank you for consultation and allowing me to participate in the patient's care. Please call the home school liaison officer GI physician during the after hours with any questions or concerns.
--- NOTE | 2025-02-08 11:13 | CON.ONC ---
Documented by User: MARCIA Roach 02/08/25 12:01
Impression
Impression
HCC, approximately 4.1cm -deemed unresectable and not a candidate for transplant
Hx Hepatitis C treated
Hx ETOH
recurrent ascites
recurrent bacterial peritonitis
varices
cytopenia secondary to cirrhosis +/- infection
Plan
Plan
f/u GI consult
check iron studies, b12, folate, retic
Dr. Cunningham reviewed with pt, , and nurse navigator that with multiple comorbidities that he is a poor candidate for systemic therapy ie checkpoint inhiitors tyrosine kinase inhibitors
He may may purue radiation oncology consult for local regional therapy such as ablation
serial H&H, transfuse prn Hgb <7 or as needed for sxs anemia
He tells me that goals remain restorative
Patient History
History of Present Illness
59yo M with HCC known to Dr. Cunningham presented p/w severe abdominal pain, increased abdominal distension, enlarged right testicle, and confusion.
In brief, he has a history of decompensated cirrhosis secondary to hepatitis C +/- ETOH with refractory ascites and recurrent SBP. He was undergoing an evaluation for liver transplant at [facility] in January 2025. Imaging at that time revealed a right
hepatic lobe mass. He underwent MR/MRCP 01/22/2025 showed a 4.1cmx3.1cm mass with non-REM arterial phase enhancement, nonperipheral washout, enhancing capsule and in intermediate T2 hyperintensity, LI-RADS category LR-5 which significance a definite
HCC diagnosis. He also has a history of gastric varices, recurrent ascites receiving paracentesis weekly, and recurrent bacterial peritonitis. He is not a surgical or transplant candidate. He has chronic anemia, thrombocytopenia, and CKD. Baseline
AFP ~224. He takes chronic narcotics and medial marijuana for chronic pain managed by his pcp.
Clinically, he reports declining performance status. His appetite remains good. He has chronic diarrhea from lactulose. He denies any overt bleeding.
Past-Medical/Surgical History
PMH anxiety, cirrhosis, COPD, stroke,, CVA, portal HTN
PSH spinal surgery
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
Family denies malignancy
Patient Medication
�Medication �Instructions �Recorded �Confirmed �Last Taken �Type
thiamine HCl (vitamin B1) 100 mg 100 mg PO DAILY Supplement 03/13/24 02/07/25 01/30/25 History
tablet
budesonide 160 mcg-glycopyr 9 2 inh inhalation R BID 04/11/24 02/07/25 01/31/25 History
mcg-formot 4.8 mcg/actuation HFA Lung/Breathing Issues
inhaler (Breztri Aerosphere)
magnesium oxide 400 mg PO BID Supplement 06/28/24 02/07/25 01/30/25 History
rifaximin 550 mg tablet (Xifaxan) 550 mg PO BID hepatic 06/28/24 02/07/25 01/30/25 History
encephalopathy
pantoprazole 40 mg tablet,delayed 40 mg PO BID Gastrointestinal Issue 08/02/24 02/07/25 01/30/25 History
release (Protonix)
lidocaine 4 % topical patch 1 patch topical DAILYPRN PRN right 09/08/24 02/07/25 09/19/24 History
knee and right shoulder
miconazole nitrate 2 % topical 1 applic topical BID groin/scrotum 09/08/24 02/07/25 01/31/25 History
powder (Miconazorb AF)
ondansetron HCl 4 mg tablet 4 mg PO DAILYPRN PRN nasuea 09/08/24 02/07/25 Unknown History
tramadol 50 mg tablet 50 mg PO BIDPRN PRN 09/26/24 02/07/25 01/11/25 History
moderate-severe pain
zinc sulfate 50 mg zinc (220 mg) 50 mg PO DAILY Supplement 11/15/24 02/07/25 01/30/25 History
tablet
lactulose 10 gram/15 mL oral 20 g PO TID Constipation 0202/07/25 01/30/25 History
solution
ertapenem 1 gram solution for 1 g IV DAILY@1600 Infection 01/04/25 02/07/25 01/30/25 History
injection
folic acid 400 mcg tablet 0.4 mg PO DAILY Supplement 01/04/25 02/07/25 01/30/25 History
phenylephrine 0.25 %-mineral oil 1 applic IL BIDPRN PRN hemorrhoids 01/07/25 02/07/25 01/04/25 Rx
14 %-petrolatm 74.9 % rectal #0 grams
ointment
(Hemorrhoidal(phenyleph-min
oil-petrolat))
furosemide 20 mg tablet (Lasix) 20 mg PO DAILY 01/25/25 02/07/25 01/30/25 History
hydromorphone 2 mg tablet 2 mg PO Q6HPRN PRN severe pain 02/07/25 02/07/25 Unknown History
oxycodone 5 mg tablet 5 mg PO Q6HPRN PRN severe pain 02/07/25 02/07/25 Unknown History
spironolactone 100 mg tablet 100 mg PO DAILY 02/07/25 02/07/25 Unknown History
Active Medications
Generic Name Dose Route Start Last Admin
Trade Name Freq PRN Reason Stop Dose Admin
Acetaminophen 650 mg 02/07/25 21:47
Acetaminophen 325 Mg Tablet PO 03/07/25 21:46
Q4HPRN PRN
mild pain/PETERS/temp> 100.4F
Budesonide/Formoterol Fumarate 2 puff 02/07/25 22:45 02/08/25 07:18
Symbicort Inhaler 160/4.5 INH 03/07/25 22:44 Not Given
R BID RACHEL
Folic Acid 0.4 mg 02/08/25 08:00 02/08/25 07:50
Folic Acid 0.4 Mg Tablet PO 03/08/25 07:59 0.4 mg
DAILY RACHEL Administration
Furosemide 20 mg 02/08/25 08:00 02/08/25 07:50
Furosemide 20 Mg Tablet PO 03/08/25 07:59 20 mg
DAILY RACHEL Administration
Hydromorphone HCl 0.5 mg 02/08/25 08:31 02/08/25 09:44
Hydromorphone 0.5 Mg/0.5 Ml Syringe IV 02/22/25 08:30 0.5 mg
Q3HPRN PRN Administration
severe pain
Hydromorphone HCl 0.25 mg 02/08/25 08:31
Hydromorphone 0.25 Mg/0.5 Ml Syringe IV 02/22/25 08:30
Q3HPRN PRN
moderate pain
Ertapenem 1,000 mg/ Sodium 60 mls @ 120 mls/hr 02/08/25 16:00
Chloride IV
Q24H RACHEL
Lactulose 20 grams 02/07/25 22:00 02/08/25 07:51
Lactulose Solution (20 Grams/30 Ml) 30 Ml Cup PO 03/07/25 21:59 Not Given
TID RACHEL
Lidocaine 1 patch 02/07/25 21:47
Lidocaine 4% Topical Patch TOPICAL 03/07/25 21:46
DAILYPRN PRN
right knee and right shoulder
Protocol
Magnesium 84 mg 02/07/25 23:00 02/08/25 07:50
Magnesium Lactate 84 Mg Tablet PO 03/07/25 22:59 84 mg
BID RACHEL Administration
Miconazole Nitrate 1 applic 02/07/25 21:47 02/08/25 07:50
Miconazole Powder Bottle TOPICAL 03/07/25 21:46 1 applic
BID RACHEL Administration
Mineral Oil/Petrolatum/Phenylephrin 1 applic 02/07/25 21:47
Preparation H Oint (Phenyleph/Mineral Oil/Petrolat) RECTAL 03/07/25 21:46
BIDPRN PRN
hemorrhoids
Pantoprazole Sodium 40 mg 02/07/25 21:47 02/08/25 07:51
Pantoprazole 40 Mg Delayed Release Tablet PO 03/07/25 21:46 40 mg
BID RACHEL Administration
Patch Removal 0 patch 02/08/25 20:00
Remove Lidocaine Patch REMOVE 03/08/25 19:59
DAILY@2000 RACHEL
Rifaximin 550 mg 02/07/25 21:47 02/08/25 07:50
Rifaximin 550 Mg Tablet PO 550 mg
BID RACHEL Administration
Sodium Chloride 0 flush 02/07/25 23:00
Sodium Chloride 0.9% (Flush) Syringe IV 03/07/25 22:59
PER PROTOCOL RACHEL
Spironolactone 100 mg 02/08/25 08:00
Spironolactone 50 Mg Tablet PO 03/08/25 07:59
DAILY RACHEL
Thiamine HCl 100 mg 02/08/25 08:00 02/08/25 07:51
Thiamine 100 Mg Tablet PO 03/08/25 07:59 100 mg
DAILY RACHEL Administration
Tiotropium [place] 2 puff 02/08/25 08:00 02/08/25 07:18
Tiotropium (Spiriva Respimat) 2.5 Mcg Inhaler INH 03/08/25 07:59 Not Given
R DAILY RACHEL
Zinc 50 mg 02/08/25 08:00 02/08/25 07:51
Zinc 50 Mg (Zinc Sulfate 220 Mg) Capsule PO 03/08/25 07:59 50 mg
DAILY RACHEL Administration
Review of Systems
-
ROS is notable for HPI, otherwise negative
Physical Exam
-
General: Appears Chronically Ill
HEENT: Negative Jaundice
Cardiology: Normal Sinus Rhythm
Pulmonary: Clear
GI: Soft and Distended
Extremities: Pulses Present and Edema
Neurology: Non Focal
Skin: Warm
Psych: Calm
Labs
Lab Results
WBC 3.3 10^3/uL (4.8-10.8) L 02/08/25 07:57
RBC 1.90 10^6/uL (4.70-6.10) L 02/08/25 07:57
Hgb 6.0 g/dL (13.0-18.0) L* 02/08/25 07:57
Hct 17.5 % (39.0-52.0) L* 02/08/25 07:57
MCV 92.1 fL (80.0-94.0) 02/08/25 07:57
MCH 31.6 pg (27.0-31.0) H 02/08/25 07:57
MCHC 34.3 g/dL (33.0-37.0) 02/08/25 07:57
RDW 17.3 % (11.5-14.5) H 02/08/25 07:57
Plt Count 51 10^3/uL (130-400) L 02/08/25 07:57
MPV 10.5 fL (7.4-10.4) H 02/08/25 07:57
Abs Immat Gran (auto) 0.0 10^3/uL (0-0.05) 02/07/25 17:55
Absolute Neuts (auto) 3.5 10^3/uL (1.4-6.5) 02/07/25 17:55
Absolute Lymphs (auto) 0.5 10^3/uL (1.2-3.4) L 02/07/25 17:55
Absolute Monos (auto) 0.5 10^3/uL (0.1-0.6) 02/07/25 17:55
Absolute Eos (auto) 0.2 10^3/uL (0-0.7) 02/07/25 17:55
Absolute Basos (auto) 0.0 10^3/uL (0-0.2) 02/07/25 17:55
Immature Gran % 0.6 % (0-0.5) H 02/07/25 17:55
Neutrophils % 75.5 % (42.2-75.2) H 02/07/25 17:55
Lymphocytes % 9.8 % (20.5-51.1) L 02/07/25 17:55
Monocytes % 10.5 % (1.7-9.3) H 02/07/25 17:55
Eosinophils % 3.2 % (0-6) 02/07/25 17:55
Basophils % 0.4 % (0-2) 02/07/25 17:55
Creatinine 1.6 mg/dL (0.7-1.3) H 02/08/25 07:07
Vital Signs
Vital Signs
Temp Pulse Resp BP Pulse Ox
98.8 F 107 18 97/48 95
02/08/25 11:09 02/08/25 11:09 02/08/25 11:09 02/08/25 11:09 02/08/25 09:56

Documented by User: Henri Montes MD 02/08/25 12:33
Impression
Impression
HCC, approximately 4.1cm -deemed unresectable and not a candidate for transplant
Hx Hepatitis C treated
Hx ETOH
recurrent ascites
recurrent bacterial peritonitis
varices
cytopenia secondary to cirrhosis +/- infection
Hematology Addendum:
Patient evaluated and agree w/ [facility] REDEVELOPMENT SPECIALIST note and plan as outlined
-HCC w/ significant pancytopenia
-transfusion of PRBCs prn
-GI following
-follow CBC
-supportive care
[2025-02-08] MEDS: ALDACTONE 100 MG PO (11:21)
--- NOTE | 2025-02-08 11:23 | PTCARENOTE ---
tansfusion of one unit prbcs initiated. pt medicated x 1 with dilaudid for c/o r abd/scrotal pain. pt sleeping post dilaudid dose. per discussion with GI [employer] pt instructed that he needs to take lactulose. pt states he will take it later.
[2025-02-08 13:15] LABS: Reticulocyte Count 3.1 % (0.4-2.8)
[2025-02-08 14:38] LABS: Ferritin 71.2 ng/ml (17.9-464.0)
[2025-02-08] MEDS: SANDOSTATIN 500.6 MCG IV (14:40)
--- NOTE | 2025-02-08 14:54 | PTCARENOTE ---
one unit prbcs infused without s/s reaction.iv sandostatin drip started per order.
[2025-02-08] MEDS: DUPHALAC/CHRONULAC 20 GRAMS PO ×2 (15:04→23:47)
[2025-02-08 15:10] LABS: Folate 13.6 ng/ml (2.76-20); Vitamin B12 499 pg/ml (239-931)
--- NOTE | 2025-02-08 15:46 | CHAP ---
Process Coordinator request relayed to Fr. Goins of [place], [place], who is on-call today. He provided Mr. Mazariegos with Sacrament of the Sick (anointing) and Holy Communion.
[2025-02-08] MEDS: INVANZ 60 MG IV (15:57)
[2025-02-08 16:23] LABS: Hematocrit 18.9 % (39.0-52.0); Hemoglobin 6.4 g/dL (13.0-18.0)
--- NOTE | 2025-02-08 17:10 | CM ---
Patient with Hx ESLD, hepatic cancer with recent admission DH transferred to [facility] & discharged, returned to ED with recurrent ascites, anemia. Transfusion today. Per ID: prolonged course of ertapenem through 02/18/2025. Room air. Receiving IV Abx,
Octreotide gtt.
Spoke with patient who resides with his spouse in [facility] w/ 1st floor set up.
The patient described himself as still independent in ADLs and ambulation, not currently using his RW or SPC.
DME - RW, SPC, shower chair.
Current with [facility] or [facility] - patient is uncertain.
Prior [facility]
PCP - Drake Goss
Pharmacy - [facility]
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
Patient would benefit from PT/OT Evals ---> message to Dr Villegas.
CM continuing to follow for d/c needs.
Plan follow up after seen by PT/OT.
--- NOTE | 2025-02-08 18:09 | PTCARENOTE ---
pt took afternoon dose of lactulose. 2 loose bms. repeat hemoglobin 6.4. two additional prbcs ordered to be transfused. units not currently ready at this time.
[2025-02-08] MEDS: DILAUDID 0.25 MG IV (23:47)
[2025-02-09] VITALS (18 sets, daily range): BP systolic 100–127; BP diastolic 46–83; PULSE 100; O2SAT 98; BMI 23.5
[2025-02-09] MEDS: SANDOSTATIN 500.6 MCG IV ×2 (02:46→15:05)
--- NOTE | 2025-02-09 03:14 | PTCARENOTE ---
Pt having complaints of pain, see MAR for medication admin. Pt received 2 more units of PRBC over night. Pt appearing to tolerate well. Vitals stable at this time. Assessment care and vitals as charted.
[2025-02-09 05:33] LABS: Hematocrit 23.4 % (39.0-52.0); Hemoglobin 8.3 g/dL (13.0-18.0); Mean Corp Hgb Conc. 35.5 g/dL (33.0-37.0); Mean Corpuscular Hgb 31.6 pg (27.0-31.0); Platelet Count 52 10^3/uL (130-400); Red Blood Cell Count 2.63 10^6/uL (4.70-6.10); Red Cell Dist. Width 16.3 % (11.5-14.5)
[2025-02-09] MEDS: DILAUDID 0.5 MG IV ×5 (05:36→21:57)
[2025-02-09 05:50] LABS: Blood Urea Nitrogen 62 mg/dl (9-20); Calcium 7.8 mg/dl (8.4-10.2); Carbon Dioxide 23 mmol/L (22-30); Chloride 107 mmol/L (98-107); Estimated Creatinine Clearance 53 ml/min; Glucose 83 mg/dl (70-99); Magnesium 2.6 mg/dl (1.6-2.3); Phosphorus 3.6 mg/dl (2.5-4.5); Potassium 4.7 mmol/L (3.5-5.1); Sodium 135 mmol/L (135-145); eGFR 52.64
--- NOTE | 2025-02-09 06:26 | W.PN.HOSP.TC ---
Today's Communication/Plan
-
see a/p
Assessment / Plan
Assessment / Plan
Physical Exam
General: Appears Chronically Ill, no acute distress. Jaundice
HEENT: NormoCephalic, Moist mucous membranes, Atraumatic, Krum Conjunctivae
Respiratory: Clear
Cardiac: S1/S2 and Regular Rhythm; No Murmur
GI: Soft, Non Tender, Distended and Normal Bowel Sounds
Musculoskeletal: No Clubbing, No Cyanosis and No Edema
Neuro: AOx3 conversant coherent, no asterixis noted
Psych: Calm
59M alcoholic cirrhosis, chronic anemia, pancytopenia, HTN, COPD, Hx CVA, gastric varices and portal hypertensive gastropathy, inoperable inguinal hernia, SBP currently on home infusion IV abx p/w severe abdominal pain, increased abd distension,
enlarged right testicle, and confusion. Pt symptomatically improved following paracentesis w/ IR, 7100 mL fluid drawn. Patient was recently admitted at this facility 01/16/25-01/17/25 for severe anemia requiring 4PRBC. MELD score 30, patient was
transferred to [facility] for possible benefit transplant, found to have liver mass/cancer on further evaluation. ED eval here noted hgb 5.9. Patient has had multiple transfusions over the past yr secondary to chronically oozing portal hypertensive
gastropathy. Sinus tachy but BP stable afebrile. Stable respiratory status on room air.
#Chronic anemia
#Pancytopenia r/t ESLD
#End-stage liver disease, Alcoholic vs Hep C Cirrhosis
#History Hep C treated
#Gastric varices
#Portal hypertensive gastropathy
- IMU
- monitor H/H, transfusion goal Hgb>7
-required multiple transfusions, total 5 this hospitalization
- Consult GI appreciated Octreotide started, cont Lasix Aldactone Lactulose Xifaxan, protonix 40 mg BID
#Ascites
s/p IR for paracentesis
removed 7 Liters 02/07/2025
- albumin repleted
#acute on suspected CKD3
Cr trending down from 1.8 on admission
#Mild Hyponatremia
monitor
#spontaneous bacterial peritonitis ESBL E. Coli
pt following with ID outpatient
- continue ertapenem
- Consult ID appreciated
#liver cancer
recent diagnosis at [facility]
follows with [facility] outpatient
- Consult oncology appreciated
#Essential hypertension
- continue spironolactone
#COPD
- continue Breztri
PT/OT appreciated no needs
Code status: full code
DVT Prophylaxis: SCDs
I spent a total of 45 minutes with the patient or on the floor. More than 50% of this time involved counseling and coordination of care.
Anticipated Discharge: Within 24 hours
Subjective/Interval History
-
Date of Service: February 09, 2025
no acute distress appears comfortable though pain persists. patient also reports anxiety
Objective Data
-
Labs:
Laboratory Results
02/08/25 02/09/25
22:00 05:08
WBC 4.0 L
Hgb Cancelled 8.3 L D
Hct Cancelled 23.4 L
Plt Count 52 L
Sodium 135
Potassium 4.7
Chloride 107
Carbon Dioxide 23
BUN 62 H
Creatinine 1.5 H
Glucose 83
Calcium 7.8 L
Vital Signs:
Vital Signs
Temp Pulse Resp BP Pulse Ox
99 F 96 13 114/72 96
02/09/25 03:13 02/09/25 06:00 02/09/25 06:00 02/09/25 06:00 02/09/25 02:57
I&O
02/07/25 02/08/25 02/09/25
06:59 06:59 06:59
Intake Total 1000 / 1000 2292 / 2292
Output Total 630 / 630
Balance 1000 / 1000 1662 / 1662
[2025-02-09] MEDS: LASIX 20 MG PO (08:19)
[2025-02-09] MEDS: XIFAXAN 550 MG PO ×2 (08:20→19:59)
[2025-02-09] MEDS: DESENEX/MITRAZOL/ZEASORB 1 APPLIC TOPICAL ×2 (08:20→20:06)
[2025-02-09] MEDS: ZINC 50 MG PO (08:20)
[2025-02-09] MEDS: FOLVITE 0.4 MG PO (08:20)
[2025-02-09] MEDS: MAG-TAB SR 84 MG PO ×2 (08:20→19:59)
[2025-02-09] MEDS: DUPHALAC/CHRONULAC 20 GRAMS PO (08:20)
[2025-02-09] MEDS: PROTONIX 40 MG PO ×2 (08:20→19:59)
[2025-02-09] MEDS: VITAMIN B1 100 MG PO (08:20)
[2025-02-09] MEDS: ALDACTONE 100 MG PO (08:20)
--- NOTE | 2025-02-09 09:30 | W.PN.ID1 ---
Date of Service
Date of Service: February 09, 2025
Today's Communication
Continue antibiotics.
Assessment / Plan
Recurrent ascites
- s/p paracentesis with recovery of 7100 mL
- Fluid analysis not consistent with current SBP
Hx recurrent SBP secondary to ESBL E. coli
-On prolonged course of ertapenem (continuing through 02/18/2025)
Anemia
End-stage liver disease
Alcoholic cirrhosis
Chronic anemia
Pancytopenia
HCV
GI bleed
Essential hypertension
COPD
History of stroke
Gastric varices
Portal hypertensive gastropathy
Recommendations:
Continue with current course of ertapenem through 02/18/2025. At time of discharge will facilitate resumption of outpatient IV antibiotics
Following completion of ertapenem, and discussions with Colin COLMENARES, patient will be placed on Cipro for SBP prophylaxis.
Abdominal imaging indicates some type of banding or coiling in the gastric area. A review of records indicate that the patient had developed upper GI bleed in early September, and ultimately was transferred to [facility] for cauterization of right gastric
artery, during which time he underwent coil embolization. This hardware may be the source of his prior recurrent infection infections.
Continue with supportive measures.
Monitor white count and temperature curve.
Transfusions as per primary service.
Chief Complaint
-: Other (Hx SBP)
Subjective / Review of Systems
Review of Systems: No Fever, No Chills and No Abdominal Pain
Vital Signs / Physical Exam
Vital Signs
Vital Signs
Temp Pulse Resp BP Pulse Ox
99.3 F 96 13 114/72 96
02/09/25 07:30 02/09/25 06:00 02/09/25 06:00 02/09/25 06:00 02/09/25 02:57
Physical Exam
Constitutional: No Acute Distress, Comfortable, Chronically Ill and Non-toxic
Pulmonary: Non Labored
Gastrointestinal: Non Distended and Normal Bowel Sounds
Extremities: Edema; Negative Cyanosis or Erythema
Psychological: Calm
Lines: PICC (RUE)
Objective Data
Lab Data
Lab Results
02/09/25 05:08
PT 18.9 Sec (11.4-14.6) H 02/07/25 17:55
INR 1.53 02/07/25 17:55
APTT 38.3 Sec (23.4-35.0) H 02/07/25 17:55
Estimated Creat Clear 53 ml/min 02/09/25 05:08
Total Bilirubin 1.9 mg/dl (0.2-1.3) H 02/07/25 17:55
AST 34 U/L (17-59) 02/07/25 17:55
ALT 18 U/L (0-50) 02/07/25 17:55
Alkaline Phosphatase 118 U/L (38-126) 02/07/25 17:55
Most recent labs reviewed.
Care Review
Plan reviewed with: Physician (Gastroenterology)
--- NOTE | 2025-02-09 12:24 | W.PN.GI.CBS2 ---
Today's Communication / Plan
-
Monitor H&H closely, hemoglobin stable over next 24 hours, okay to d/c tomorrow. Plan to refer to [facility] for Transplant Eval
Assessment / Plan
-
Cortez Mazariegos is a 59-year-old male who is well-known to [facility], past medical history of decompensated etoh/hcv cirrhosis c/b recurrent ascites multiple admissions for ESBL klebsiella SBP and recurrent aerococcus viridans bacteremia and
SBP w/ bacteremia, encephalopathy, GI bleeding due to oozing PHG and gastric varices (s/p gastric coiling 09/2024), CVA, HTN, COPD, thromboctyopenia and recently diagnosed HCC admitted for acute on chronic anemia following large volume paracentesis.
He was previously being worked up for liver transplant at [facility], however, questionable if he would be listed due to previous UDS +cocaine and postive PETH, however, recent imaging
Of note, he was recently transferred to [facility] after admission admission to [place] on 01/16 with concern for GI bleeding, he responded to blood transfusion at that time. On transfer he appeared volume overloaded and was treated with
Terlipressin 3 days with improvement in his creatinine at noon back to his baseline function. ID was consulted for his recurrent ESBL SBP, vancomycin was started for Aeromonas bacteremia but it was suspected be a contaminant. To evaluate for
occult sources of infection given his recurrent SBP and bacteremia, a PET/CT was obtained demonstrating an exophytic right hepatic lobe mass with mild FDG uptake suspicious for hepatocellular carcinoma. He subsequently had an MRI which showed
segment 7/6 LR-5 measuring 4.1 cm. His case was discussed with the transplant team and he was deemed not a candidate for transplant due to his medical comorbidities and deconditioned status. Following the recent HCC finding, he had planned to
establish care with [facility] to discuss potential treatment options. He was seen by oncology yesterday deemed not a candidate for systemic therapy, however, locoregional therapy may be an option, recommending radiation oncology consult.
#Recurrent Ascites
#ESBL Klebsiella SBP c/b bacteremia
# Aerococcus viridans bacteremia (likely contaminant) s/p treatment with vancomycin
-Discussed with ID, translocation is not felt to be the cause of his recurrent infection. After careful review and timing of his infections, source suspected to be coils in the gastric artery
-s/p paracentesis 02/07, neg SBP, albumin protocol given
-currently on a prolonged treatment course of Ertapenem (will complete 02/18/25)
#Acute on Chronic Anemia-- hx of oozing PHG requiring tx with APC, isolated gastric varices requiring coil emoblization (09/2024)
-Hgb 8.3 today; he has received a total of 5 units of PRBC since arrival without overt signs of GI bleeding; if signs of hemodynamic instability or if hemoglobin continues to drop, will need to proceed with EGD-- given the number of blood
transfusions he has received he is at risk of compartment syndrome (receiving multiple other transfusions over the last few weeks at and [facility])
-BUN increased to 62, will need to watch closely
-Transfuse for Hgb <7
-Continue PPI
-Continue octreotide
HRS 1
-Recent admission with concern for HRS, treated with triple therapy, then terlipressin at [facility] with improvement
-per d/c summary, Cr. went to <1.5 (peaked at 2.26), hold on albumin for now and monitor
-Cr. improved to 1.5
Decompensated Cirrhosis c/b new HCC
-MELD 3.0 =22
-HE: c/w lactulose and Rifaximin
-deemed not a transplant candidate by [facility], recommend he seek out other institutions for evaluation which I discussed at length with patient and his today. They are understandably very upset by the long and tiring evaluation they had at [facility],
ultimately, told he was not a candidate after findings of HCC. They would like to pursue a 2nd opinion. I will refer to [facility] for transplant evaluation.
HCC
-New HCC diagnosis, 4.1 cm, within Bolivar criteria
-AFP 224
-seen by heme/onc, not a candidate for systemic therapy, however, locoregional therapy may be an option, recommending radiation oncology consult.
-referral for transplant evaluation at [facility]
Subjective
Subjective
Date of Service: February 09, 2025
Patient seen in follow-up. He has been transfused with a total of 5 units of PRBC since arrival, without overt signs of GI bleeding. He continues to have soft brown stool. He has remained hemodynamically stable. Unfortunately, wanted to perform EGD
yesterday as suspected source of ongoing anemia is oozing PHG, however, patient had just eaten. Patient's on phone during evaluation. Cr. improved to 1.5
Objective
Data Reviewed
Laboratory Data:
Laboratory Results
02/09/25 05:08
Laboratory Results
PT 18.9 Sec (11.4-14.6) H 02/07/25 17:55
INR 1.53 02/07/25 17:55
APTT 38.3 Sec (23.4-35.0) H 02/07/25 17:55
Phosphorus 3.6 mg/dl (2.5-4.5) 02/09/25 05:08
Magnesium 2.6 mg/dl (1.6-2.3) H 02/09/25 05:08
Total Bilirubin 1.9 mg/dl (0.2-1.3) H 02/07/25 17:55
AST 34 U/L (17-59) 02/07/25 17:55
ALT 18 U/L (0-50) 02/07/25 17:55
Alkaline Phosphatase 118 U/L (38-126) 02/07/25 17:55
Vital Signs and I&O:
Vital Signs
Temp Pulse Resp BP Pulse Ox
98.6 F 96 16 127/67 95
02/09/25 11:25 02/09/25 11:00 02/09/25 11:00 02/09/25 10:00 02/09/25 11:30
I&O
02/08/25 02/09/25 02/10/25
06:59 06:59 06:59
Intake Total 1000 / 1000 2292 / 2292
Output Total 630 / 630 250 / 250
Balance 1000 / 1000 1662 / 1662 -250 / -250
Physical Exam
Physical Exam
HEENT: Moist mucous membranes
Cardiology: Normal Sinus Rhythm, S1 and S2
Pulmonary: Clear
GI: Soft, Distended (ascites) and Tender
[2025-02-09] MEDS: ATIVAN 0.25 MG PO ×2 (13:05→21:57)
[2025-02-09 15:27] LABS: Hemoglobin 8.5 g/dL (13.0-18.0)
[2025-02-09] MEDS: INVANZ 60 MG IV (16:11)
[2025-02-09] MEDS: DUPHALAC/CHRONULAC PO ×2 (16:14→21:57)
--- NOTE | 2025-02-09 19:17 | PTCARENOTE ---
Assumed care of patient at beginning of this shift from previous RN. Patient tearful/crying at times d/t health status. Medical Reimbursement Specialist in to see patient. Patient requested something for anxiety; Dr Villegas made aware and ordered Ativan. Patient report some
relief after being given. Patient had large loose bm earlier today for this RN that was brown, but had 2 subsequent bms that were brown mixed with some red blood for PCT and PT/OT. Initial H&H 8.3/23.4; repeat 8.5/24. Dr Villegas made aware; repeat H&H
entered by him for 22:00. See worklist for full assessment and vital signs; see MAR for med administration.
[2025-02-09] MEDS: DILAUDID 0.75 MG IV (19:57)
[2025-02-09 22:11] LABS: Hematocrit 23.5 % (39.0-52.0); Hemoglobin 8.1 g/dL (13.0-18.0)
--- NOTE | 2025-02-09 23:40 | PTCARENOTE ---
Pt becoming tearful at times. Emotional support given. Pt saying 'I known Im dying, what's the point of seeing [facility]'. More emotional support given while Pt crying. Pt stating his 'daughter will have to make the final decision'. Pain and anxiety
medication given per order. Assessment care and vitals as charted.
[2025-02-10] VITALS (10 sets, daily range): BP systolic 104–143; BP diastolic 53–95; BMI 23.6
[2025-02-10] MEDS: DILAUDID 0.75 MG IV ×4 (00:14→16:25)
[2025-02-10] MEDS: SANDOSTATIN 500.6 MCG IV (04:46)
[2025-02-10 05:22] LABS: Hematocrit 24.8 % (39.0-52.0); Hemoglobin 8.5 g/dL (13.0-18.0); Mean Corp Hgb Conc. 34.3 g/dL (33.0-37.0); Mean Corpuscular Hgb 31.5 pg (27.0-31.0); Mean Corpuscular Volume 91.9 fL (80.0-94.0); Mean Platelet Volume 10.1 fL (7.4-10.4); Platelet Count 60 10^3/uL (130-400); Red Cell Dist. Width 16.5 % (11.5-14.5); White Blood Cell Count 4.6 10^3/uL (4.8-10.8)
[2025-02-10 05:40] LABS: Blood Urea Nitrogen 55 mg/dl (9-20); Calcium 7.6 mg/dl (8.4-10.2); Carbon Dioxide 24 mmol/L (22-30); Chloride 111 mmol/L (98-107); Estimated Creatinine Clearance 57 ml/min; Glucose 116 mg/dl (70-99); Magnesium 2.5 mg/dl (1.6-2.3); Phosphorus 3.9 mg/dl (2.5-4.5); Sodium 137 mmol/L (135-145); eGFR 57.18
--- NOTE | 2025-02-10 06:49 | W.PN.HOSP.TC ---
Today's Communication/Plan
-
discharge
Assessment / Plan
Assessment / Plan
Physical Exam
General: Appears Chronically Ill, no acute distress. Jaundice
HEENT: NormoCephalic, Moist mucous membranes, Atraumatic, [place] Conjunctivae
Respiratory: Clear
Cardiac: S1/S2 and Regular Rhythm; No Murmur
GI: Soft, Non Tender, Distended and Normal Bowel Sounds
Musculoskeletal: No Clubbing, No Cyanosis and No Edema
Neuro: AOx3 conversant coherent, no asterixis noted
Psych: Calm
59M alcoholic cirrhosis, chronic anemia, pancytopenia, HTN, COPD, Hx CVA, gastric varices and portal hypertensive gastropathy, inoperable inguinal hernia, SBP currently on home infusion IV abx p/w severe abdominal pain, increased abd distension,
enlarged right testicle, and confusion. Pt symptomatically improved following paracentesis w/ IR, 7100 mL fluid drawn. Patient was recently admitted at this facility 01/16/25-01/17/25 for severe anemia requiring 4PRBC. MELD score 30, patient was
transferred to [place] for possible benefit transplant, found to have liver mass/cancer on further evaluation. ED eval here noted hgb 5.9. Patient has had multiple transfusions over the past yr secondary to chronically oozing portal hypertensive
gastropathy. Sinus tachy but BP stable afebrile. Stable respiratory status on room air.
#Chronic anemia
#Pancytopenia r/t ESLD
#End-stage liver disease, Alcoholic vs Hep C Cirrhosis
#History Hep C treated
#Gastric varices
#Portal hypertensive gastropathy
- IMU
- monitor H/H, transfusion goal Hgb>7
-required multiple transfusions, total 5 this hospitalization, H&H since stable consistently >8 24 hours
- Consult GI appreciated Octreotide completed, cont Lasix Aldactone Lactulose Xifaxan, protonix 40 mg BID
#Ascites
s/p IR for paracentesis
removed 7 Liters 02/07/2025
- albumin repleted
#acute on suspected CKD3
Cr trending down from 1.8 on admission to current 1.4 on discharge
#Mild Hyponatremia resolved
#spontaneous bacterial peritonitis ESBL E. Coli
pt following with ID outpatient
- continue ertapenem
- Consult ID appreciated
#HCC, approximately 4.1cm -deemed unresectable
recent diagnosis at [facility]
follows with [facility] outpatient Dr Cunningham
- Consult oncology appreciated with multiple comorbidities that he is a poor candidate for systemic therapy ie checkpoint inhibitors tyrosine kinase inhibitors He may may pursue radiation oncology consult for local regional therapy such as ablation
#Essential hypertension
- continue spironolactone
#COPD
- continue Breztri
PT/OT appreciated no needs
Code status: full code
DVT Prophylaxis: SCDs
Medically stable for discharge home with outpatient follow up recommendations.
discussed with patient and patient's Cherise
Total Time Preparing Discharge ___40____ minutes including examination of the patient, summary of the hospital stay, instructions for continuing care to all relevant caregivers; and preparation of discharge records, prescriptions, and referral
forms if necessary.
Anticipated Discharge: Today
Subjective/Interval History
-
Date of Service: February 10, 2025
No acute distress appears comfortable. Reports feeling well. Denies new acute issues at this time. Eager to go home.
Objective Data
-
Labs:
Laboratory Results
02/09/25 02/10/25
22:04 04:54
WBC 4.6 L
Hgb 8.1 L 8.5 L
Hct 23.5 L 24.8 L
Plt Count 60 L
Sodium 137
Potassium 5.0
Chloride 111 H
Carbon Dioxide 24
BUN 55 H
Creatinine 1.4 H
Glucose 116 H
Calcium 7.6 L
Vital Signs:
Vital Signs
Temp Pulse Resp BP Pulse Ox
98.7 F 103 11 123/73 95
02/09/25 23:00 02/10/25 06:00 02/10/25 06:00 02/10/25 06:00 02/09/25 21:40
I&O
02/08/25 02/09/25 02/10/25
06:59 06:59 06:59
Intake Total 1000 / 1000 2292 / 2292 580.4 / 580.4
Output Total 630 / 630 650 / 650
Balance 1000 / 1000 1662 / 1662 -69.6 / -69.6
[2025-02-10] MEDS: DUPHALAC/CHRONULAC 20 GRAMS PO (08:10)
[2025-02-10] MEDS: DILAUDID 0.5 MG IV (08:10)
[2025-02-10] MEDS: VITAMIN B1 100 MG PO (08:11)
[2025-02-10] MEDS: LASIX 20 MG PO (08:11)
[2025-02-10] MEDS: ZINC 50 MG PO (08:11)
[2025-02-10] MEDS: PROTONIX 40 MG PO (08:11)
[2025-02-10] MEDS: FOLVITE 0.4 MG PO (08:12)
[2025-02-10] MEDS: ALDACTONE 100 MG PO (08:12)
[2025-02-10] MEDS: XIFAXAN 550 MG PO (08:12)
[2025-02-10] MEDS: DESENEX/MITRAZOL/ZEASORB 1 APPLIC TOPICAL (08:12)
[2025-02-10] MEDS: MAG-TAB SR 84 MG PO (08:12)
--- NOTE | 2025-02-10 08:24 | W.PN.GI.CBS2 ---
Today's Communication / Plan
-
Hgb stable. Okay for d/c. Follow-up with [facility] Hepatology for 2nd opinion
Assessment / Plan
-
Cortez Mazariegos is a 59-year-old male who is well-known to [facility], past medical history of decompensated etoh/hcv cirrhosis c/b recurrent ascites multiple admissions for ESBL klebsiella SBP w/ bacteremia, recent aerococcus viridans
bacteremia (possible contaminant), HE, GI bleeding due to oozing PHG and gastric varices (s/p gastric coiling 09/2024), CVA, HTN, COPD, thromboctyopenia and recently diagnosed HCC admitted for acute on chronic anemia following large volume
paracentesis. He was previously being worked up for liver transplant at [facility], however, questionable if he would be listed due to previous UDS +cocaine and postive PETH. After new HCC diagnosis, Colin decided he was no longer a candidate for
transplantation.
#Recurrent Ascites
#ESBL Klebsiella SBP c/b bacteremia
# Aerococcus viridans bacteremia (likely contaminant) s/p treatment with vancomycin
-Discussed with ID, translocation is not felt to be the cause of his recurrent infection. After careful review and timing of his infections, source suspected to be coils in the gastric artery
-s/p paracentesis 02/07, neg SBP, albumin protocol given
-currently on a prolonged treatment course of Ertapenem (will complete 02/18/25) followed by daily cipro
#Acute on Chronic Anemia-- hx of oozing PHG requiring tx with APC, isolated gastric varices requiring coil embolization (09/2024)
-Hgb 8.5 today without overt signs of GI bleeding
-continue PPI
-okay to d/c octreotide
HRS 1
-Recent admission with concern for HRS, treated with triple therapy, then terlipressin at [facility] with improvement
-Cr. 1.4 today
Decompensated Cirrhosis c/b new HCC
-MELD 3.0 =22
-HE: c/w lactulose and Rifaximin
-deemed not a transplant candidate by [facility], recommend he seek out other institutions for evaluation which I discussed at length with patient and his today. They are understandably very upset by the long and tiring evaluation they had at [facility],
ultimately, told he was not a candidate after findings of HCC. They would like to pursue a 2nd opinion. I will refer to [facility] for transplant evaluation, information sent to hepatology at [facility], they will reach out top patient to schedule
consultation.
HCC
-New HCC diagnosis, 4.1 cm, within [place] criteria
-AFP 224
-seen by heme/onc, not a candidate for systemic therapy, however, locoregional therapy may be an option, recommending radiation oncology consult.
-referral for transplant evaluation at [facility]
Okay for d/c today from a GI perspective, will follow-up with [facility] hepatology for 2nd opinion regarding transplant candidacy. GI will sign off, please call with questions.
Subjective
Subjective
Date of Service: February 10, 2025
No bleeding overnight, did not require any blood transfusions in last 24 hours. Hemoglobin remains stable. No overnight events.
Objective
Data Reviewed
Laboratory Data:
Laboratory Results
02/10/25 04:54
02/10/25 04:54
Laboratory Results
PT 18.9 Sec (11.4-14.6) H 02/07/25 17:55
INR 1.53 02/07/25 17:55
APTT 38.3 Sec (23.4-35.0) H 02/07/25 17:55
Phosphorus 3.9 mg/dl (2.5-4.5) 02/10/25 04:54
Magnesium 2.5 mg/dl (1.6-2.3) H 02/10/25 04:54
Total Bilirubin 1.9 mg/dl (0.2-1.3) H 02/07/25 17:55
AST 34 U/L (17-59) 02/07/25 17:55
ALT 18 U/L (0-50) 02/07/25 17:55
Alkaline Phosphatase 118 U/L (38-126) 02/07/25 17:55
Vital Signs and I&O:
Vital Signs
Temp Pulse Resp BP Pulse Ox
97.7 F 103 11 123/73 95
02/10/25 07:30 02/10/25 06:00 02/10/25 06:00 02/10/25 06:00 02/09/25 21:40
I&O
02/09/25 02/10/25 02/11/25
06:59 06:59 06:59
Intake Total 2292 / 2292 580.4 / 580.4
Output Total 630 / 630 650 / 650 150 / 150
Balance 1662 / 1662 -69.6 / -69.6 -150 / -150
Physical Exam
Physical Exam
HEENT: Moist mucous membranes
Cardiology: Normal Sinus Rhythm, S1 and S2
Pulmonary: Clear
GI: Soft, Distended (ascites) and Tender
--- NOTE | 2025-02-10 08:41 | W.PN.ID1 ---
Date of Service
Date of Service: February 10, 2025
Today's Communication
Continue ertapenem.
Assessment / Plan
Recurrent ascites
- s/p paracentesis with recovery of 7100 mL
- Fluid analysis not consistent with current SBP
Hx recurrent SBP secondary to ESBL E. coli
-On prolonged course of ertapenem (continuing through 02/18/2025)
Anemia
End-stage liver disease
Alcoholic cirrhosis
Chronic anemia
Pancytopenia
HCV
GI bleed
Essential hypertension
COPD
History of stroke
Gastric varices
Portal hypertensive gastropathy
Recommendations:
Continue with current course of ertapenem through 02/18/2025. At time of discharge will facilitate resumption of outpatient IV antibiotics
Following completion of ertapenem, and discussions with Colin COLMENARES, patient will be placed on Cipro for SBP prophylaxis.
Records review indicate that the patient had developed upper GI bleed in early September, and ultimately was transferred to [facility] for cauterization of right gastric artery, during which time he underwent coil embolization. This hardware may be the
source of his recurrent infections.
Continue with supportive measures.
Monitor white count and temperature curve.
Transfusions as per primary service.
Chief Complaint
-: Other (Hx SBP)
Subjective / Review of Systems
Review of Systems: No Fever, No Chills and No Abdominal Pain
Vital Signs / Physical Exam
Vital Signs
Vital Signs
Temp Pulse Resp BP Pulse Ox
97.7 F 103 11 123/73 95
02/10/25 07:30 02/10/25 06:00 02/10/25 06:00 02/10/25 06:00 02/09/25 21:40
Physical Exam
Constitutional: No Acute Distress, Comfortable, Chronically Ill and Non-toxic
Pulmonary: Non Labored
Gastrointestinal: Non Distended and Normal Bowel Sounds
Extremities: Edema; Negative Cyanosis or Erythema
Psychological: Calm
Lines: PICC (RUE)
Objective Data
Lab Data
Lab Results
02/10/25 04:54
02/10/25 04:54
PT 18.9 Sec (11.4-14.6) H 02/07/25 17:55
INR 1.53 02/07/25 17:55
APTT 38.3 Sec (23.4-35.0) H 02/07/25 17:55
Estimated Creat Clear 57 ml/min 02/10/25 04:54
Total Bilirubin 1.9 mg/dl (0.2-1.3) H 02/07/25 17:55
AST 34 U/L (17-59) 02/07/25 17:55
ALT 18 U/L (0-50) 02/07/25 17:55
Alkaline Phosphatase 118 U/L (38-126) 02/07/25 17:55
Most recent labs reviewed.
[2025-02-10] MEDS: ATIVAN 0.25 MG PO (09:52)
--- NOTE | 2025-02-10 11:08 | PTCARENOTE ---
Assumed care of patient at beginning of this shift from previous RN. Patient Ox3, 1 assist OOB; pain and anxiety meds given prn as ordered. See worklist for full assessment and vital signs.
[2025-02-10] MEDS: INVANZ 60 MG IV (16:26)
[2025-02-10] MEDS: DUPHALAC/CHRONULAC PO (16:28)
--- NOTE | 2025-02-10 17:46 | W.DCSUMMARY ---
Discharge Summary
Discharge Data
Date of Admission: 02/07/25
Date of Discharge: 02/10/25
-
Pending Results: No
Discharge Plan
-
Patient Disposition: Home (Routine Discharge)
Discharge Diagnosis/Procedures: Acute on Chronic anemia
Pancytopenia r/t ESLD
End-stage liver disease, Alcoholic vs Hep C Cirrhosis
History Hep C treated
Gastric varices
Portal hypertensive gastropathy
Ascites
Acute on Chronic Kidney Disease Stage III
Mild Hyponatremia resolved
spontaneous bacterial peritonitis ESBL E. Coli
Hepatocellular Carcinoma, approximately 4.1cm- deemed unresectable
COPD
Condition: Fair
Diet: Regular
Activity: As tolerated
Driving Restrictions: Not until seen by your Dr
Bathing Restrictions: None
Blood Work: Please repeat CBC and BMP with primary care provider in 1 week of discharge.
Activity Restrictions/Additional Instructions:
Ativan 0.25 mg twice a day prescribed as needed for anxiety.
Please take medications as prescribed/recommended and follow up with primary care provider and/or other healthcare provider involved in your care for refills and/or further adjustment to your medication regimen as necessary.
Referrals:
Mary Cunningham MD [Active] - in less than 1 week
Roger Bailon DO [Active] - in less than 1 week
Drake Goss DO [Family Provider] - in one week
Prescriptions:
New
lorazepam 0.5 mg Tablet
0.25 mg PO BIDPRN PRN (Reason: anxiety) Qty: 7 0RF
Continued
thiamine HCl (vitamin B1) 100 mg tablet
100 mg PO DAILY
Breztri Aerosphere 160-9-4.8 mcg/actuation Hfa Aerosol Inhaler
2 inh INHALATION R BID
Xifaxan 550 mg Tablet
550 mg PO BID
magnesium oxide 400 mg magnesium Tablet
400 mg PO BID
pantoprazole [Protonix] 40 mg tablet,delayed release (DR/EC)
40 mg PO BID
ondansetron HCl 4 mg Tablet
4 mg PO DAILYPRN PRN (Reason: nasuea)
lidocaine 4 % adhesive patch,medicated
1 patch topical DAILYPRN PRN (Reason: right knee and right shoulder)
miconazole nitrate [Miconazorb AF] 2 % powder
1 applic topical BID
tramadol 50 mg tablet
50 mg PO BIDPRN PRN (Reason: moderate-severe pain)
zinc sulfate 50 mg zinc (220 mg) Tablet
50 mg PO DAILY
lactulose 10 gram/15 mL Solution
20 g PO TID
folic acid 400 mcg Tablet
0.4 mg PO DAILY
ertapenem 1 gram recon soln
1 g IV DAILY@1600
Hemorrhoidal(PE-min oil-darling) 0.25-14-74.9 % ointment
1 applic NC BIDPRN PRN (Reason: hemorrhoids) Qty: 0 0RF
furosemide [Lasix] 20 mg Tablet
20 mg PO DAILY
spironolactone 100 mg Tablet
100 mg PO DAILY
hydromorphone 2 mg Tablet
2 mg PO Q6HPRN PRN (Reason: severe pain)
oxycodone 5 mg Tablet
5 mg PO Q6HPRN PRN (Reason: severe pain)
Discharge Orders:
Discharge Patient (As Directed); Ordered 02/10/25
Ordered By: Alex Villegas
Discharge Date and Time
Print Language: SERBIAN
--- NOTE | 2025-02-10 17:54 | PTCARENOTE ---
Patient for discharge; confirmed with Dr Villegas that patient is to go home with PICC line.
--- NOTE | 2025-02-10 19:25 | PTCARENOTE ---
Patient's asked that nurse give patient discharge instructions instead of waiting for daughter to pick him up. She stated daughter would not be coming up but would wait in the car. She asked that we call the daughter to let her know when
patient was downstairs. This nurse instructed her that we cannot have patient wait in the lobby for his ride. Instructed to have daughter call to unit when she arrives and patient would be taken down. Report given to oncoming shift.
--- NOTE | 2025-02-10 20:07 | PTCARENOTE ---
Pt Daughter at bed side for D/C. Day RN educated Pt on D/C paper work. Paper work shown to Daughter also.
== END 2025-02-10 20:09 | disposition home or self-care (01) | DRG 432 ==
LOC: IMU 20:40
PROVIDERS: Nurse Practitioner Family; Radiology Diagnostic Radiology; Radiology Neuroradiology; ADMITTING PHYSICIAN Internal Medicine; CONSULT PHYSICIAN Internal Medicine; CONSULT PHYSICIAN Internal Medicine Infectious Disease; EMERGENCY PHYSICIAN Emergency Medicine; FAMILY PHYSICIAN Internal Medicine; OTHER PHYSICIAN Internal Medicine Hematology & Oncology
PROC: 02HV33Z Insertion of Infusion Device into Superior Vena Cava, Percutaneous Approach (ICD-10-PCS; 2025-02-07)
PROC: 30243N1 Transfusion of Nonautologous Red Blood Cells into Central Vein, Percutaneous Approach (ICD-10-PCS; 2025-02-07)
PROC: 0W9G3ZZ Drainage of Peritoneal Cavity, Percutaneous Approach (ICD-10-PCS; 2025-02-07)
DX: K70.31 Alcoholic cirrhosis of liver with ascites (principal); K65.2 Spontaneous bacterial peritonitis; E87.1 Hypo-osmolality and hyponatremia; D61.818 Other pancytopenia; K76.6 Portal hypertension; Z16.12 Extended spectrum beta lactamase (ESBL) resistance; C22.0 Liver cell carcinoma; D62 Acute posthemorrhagic anemia; K72.10 Chronic hepatic failure without coma; K31.89 Other diseases of stomach and duodenum; I12.9 Hypertensive chronic kidney disease with stage 1 through stage 4 chronic kidney disease, or unspecified chronic kidney disease; N18.30 Chronic kidney disease, stage 3 unspecified; B96.20 Unspecified Escherichia coli [E. coli] as the cause of diseases classified elsewhere; I86.4 Gastric varices; F10.11 Alcohol abuse, in remission; G89.4 Chronic pain syndrome; J44.9 Chronic obstructive pulmonary disease, unspecified; Z86.73 Personal history of transient ischemic attack (TIA), and cerebral infarction without residual deficits; Z87.891 Personal history of nicotine dependence; Z88.1 Allergy status to other antibiotic agents; Z79.899 Other long term (current) drug therapy
CPT/HCPCS: 49083; 71046; 80048; 80053; 82140; 82607; 82728; 82746; 83735; 84100; 85014; 85018; 85025; 85027; 85045; 85610; 85730; 86850; 86900; 86901; 86920; 86922; 89051; 96374; 96376; 97162; 97166; 99291; J1335; P9016; P9047

== ENCOUNTER → 2025-02-14 08:02 | Outpatient (REF) | payer BC, SELFPAY ==
[2025-02-14 08:30] VITALS: BP 109/64; BP_SYST 95
[2025-02-14 09:03] VITALS: BP 104/59
[2025-02-14 10:23] LABS: Body Fluid Mononuclear 95.6 %; Body Fluid Polymorphonuclear 4.4 %; Body Fluid WBC 23 /CUMM
[2025-02-14 12:04] LABS: Body Fluid Second Tech CMB
== END ==
LOC: RADI 08:02
PROVIDERS: ATTENDING PHYSICIAN Nurse Practitioner Adult Health; FAMILY PHYSICIAN Internal Medicine
DX: R18.8 Other ascites (principal); K74.60 Unspecified cirrhosis of liver; B19.20 Unspecified viral hepatitis C without hepatic coma; K76.89 Other specified diseases of liver
CPT/HCPCS: 49083; 87015; 87070; 87205; 89051

== ENCOUNTER 2025-02-14 09:50 | Outpatient (RCR) | payer BC, SELFPAY ==
[2025-02-14 10:15] VITALS: BP 107/49
[2025-02-14] MEDS: FLEXBUMIN 50 IV (10:19)
[2025-02-14] MEDS: FLEXBUMIN 100 IV (11:19)
[2025-02-14 11:20] VITALS: BP 105/45
[2025-02-14 13:00] VITALS: BP 96/64
== END 2025-03-06 23:59 | disposition home or self-care (01) ==
LOC: OID 09:50
PROVIDERS: ATTENDING PHYSICIAN Nurse Practitioner Adult Health; FAMILY PHYSICIAN Internal Medicine
DX: K70.31 Alcoholic cirrhosis of liver with ascites (principal); B18.2 Chronic viral hepatitis C; D64.9 Anemia, unspecified; D69.6 Thrombocytopenia, unspecified
CPT/HCPCS: 49083; 87015; 87070; 87205; 89051; 96365; 96366; P9047